=== PATIENT | female | born 1995 | race Caucasian/White ===

== ENCOUNTER 2022-08-02 15:03 | Outpatient (CLI) | payer MEDICAID, SELFPAY ==
--- OUTSIDE RECORDS SUMMARY | 2022-08-02 15:05 | XMS_ITS ---
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 Problem Other specified E03.8 Active 4093 0008 hypothyroidism Problem Body mass index Z68.35 Active 4433 [id number] (BMI) of 35.0-35.9 in adult ALLERGIES Substance Reaction Event Type Date Status Percocet Unknown Drug Allergy February, Active ENCOUNTERS Encounter Location Date Diagnosis [facility] [address] February, [place], [place] [id number] [facility] [place] [address] Jan, [address] [address] [facility] [address] Jan, [address] [address] [facility] [address] Jan, [address] [address] [facility] [address] Oct, [address] [address] [facility] [address] Oct, [address] [address] [facility] [place] [address] Oct, [address] [address] [facility] [address] Oct, [address] [address] [facility] [address] Oct, [address] [address] [facility] [address] Oct, [address] [address] [facility] [address] Oct, [address] [address] [facility] [address] Oct, [address] [address] [facility] [address] Oct, [address] [address] [facility] [address] Oct, [place], [place] [id number] [facility] [address] Oct, [address] [address] [facility] [address] Oct, [place], [place] [id number] [facility] [address] Oct, [address] [address] [facility] [address] Oct, [address] [address] [facility] [address] Oct, Infer tility associated with [address] rashawn on N97.0 [address] [facility] [address] Oct, [address] [address] [facility] [address] Oct, [address] [address] [facility] [address] Oct, [address] [address] [facility] [address] Oct, [address] [address] [facility] [address] Oct, [address] [address] [facility] [address] Oct, [address] [address] [facility] Sep, PCOS (polycystic ovarian [address] syndrome) E28.2 ; [address] Infertility asso ciated with anovulation N97. 0 and Other specified hypoth yroidism E03.8 [facility] Sep, Infer tility associated with [address] anovulati on N97.0 [address] [facility] [address] Sep, [address] [address] [facility] [address] Sep, [address] [address] [facility] [address] Sep, [address] [address] [facility] [address] Sep, [address] [address] [facility] [address] Sep, [address] [address] [facility] [address] Sep[address] [address] [facility] [address] Aug, [address] [address] [facility] [place] [address] Aug, [place], [place] [phone] [facility] [address] Aug, PCOS (polycystic ovarian [address], syndrome) E28.2 ; [place] [address] Infertility asso ciated with anovulation N97. 0 and Morbid (severe) obesity due to excess calori es E66.01 [facility] [address] Jul, Irreg ular menstrual [facility] [address] [place] [address], [facility] [address] [place] [address] Procreative bibi gement Z31.9 [facility] [address] Jul, [facility] [address] [place] [address] [facility] [address] Jun, Secjoseph schuler amenorrhea N91.1 [place] [address] [place], ; [place] [address] hypothyroidism E 03.8 ; Autoimmune thyro iditis E06.3 ; Body mas s index (BMI) of 35.0-35 .9 in adult Z68.35 and Morbi d (severe) obesity due to e xcess calories E66.01 IMMUNIZATIONS No Known Immunizations SOCIAL HISTORY Qualifiers Date Never Smoker REASON FOR REFERRAL FUNCTIONAL STATUS PLAN OF CARE VITAL SIGNS Height 65.5 in 2019-10-08 Weight 227.2 lbs 2019-10-08 BMI 37.23 kg/m2 2019-10-08 Blood pressure systolic 122 mm Hg 2019-10-08 Blood pressure diastolic 72 mm Hg 2019-10-08 MEDICATIONS Medication Instructions Dosage Frequency Start End Duration Statu s Date Date Sprintec 28 0.25-35 Orally Once a 1 tablet 24h Aug, y(s) Active MG-MCG day 2018 Vitamin D 1000 UNIT Orally Once a 1 tablet 24h y(s) Active day Spironolactone 100 MG Orally Once a 1 tablet 24h 30 day(s) Active day medroxyPROGESTERone Orally Once a 1 tablet 24h Jun, Active Acetate 10 MG day with food 2018 metFORMIN HCl 500 MG Act denis Levothyroxine Sodium Orally Once a 1 tablet 24h Active 175 MCG day on an empty stomach in the morning Sprintec 28 0.25-35 Orally Once a 1 tablet 24h Jul, y(s) Active MG-MCG day 2019 Fluconazole 150 MG 1 tablet 10 day(s) Ac tive Phentermine HCl 37.5 Orally Once a 1 capsule 24h Not-Taki MG day ng Letrozole 2.5 MG Orally Day 3-7 3 18 Nov, 5 days Active of cycle 2019 PROCEDURES Procedure Date Ordered Result Body Site CHEMILUMINESCENT ASSAY Jul 30, 2019 ASSAY OF PROLACTIN Jul 30, 2019 GONADOTROPIN (FSH) Jul 30, 2019 GONADOTROPIN (LH) Jul 30, 2019 ASSAY OF ESTRADIOL Jul 30, 2019 DEHYDROEPIANDROSTERONE Jul 30, 2019 TOTAL CORTISOL Jul 30, 2019 ASSAY OF TOTAL TESTOSTERONE Jul 30, 2019 No Charge Visit Oct 08, 2019 ASSAY OF TESTOSTERONE Jul 30, 2019 ASSAY OF SEX HORMONE GLOBUL Jul 30, 2019 ASSAY OF PROGESTERONE Jul 30, 2019 VENIPUNCT, ROUTINE* Jul 30, 2019 RESULTS Name Result Date Reference Range PROGESTERONE 2019-10-08 PROGESTERONE 6.0 ESTRADIOL 2019-07-30 ESTRADIOL <15 PROGESTERONE 2019-07-30 PROGESTERONE <0.5 DHEA SULFATE 2019-07-30 DHEA SULFATE 320 18-391 FSH 2019-07-30 FSH 3.0 LH 2019-07-30 LH 2.0 PROLACTIN 2019-07-30 PROLACTIN 11.2 CORTISOL, TOTAL 2019-07-30 CORTISOL, TOTAL 18.3 SEX HORMONE BINDING GLOBULIN 2019-07-30 SEX HORMONE BINDING GLOBULIN 35 17- 124 TESTOSTERONE, TOTAL, LC/MS/MS 2019-07-30 TESTOSTERONE, TOTAL, MS 22 2-45 ANTI-MULLERIAN HORMONE ([facility]), (Insurance Bill ONLY) 2019-07-30 ANTI-MULLERIAN HORMONE ([facility]), FEMALE 18.08 1.02-14.63 TESTOSTERONE, FREE 2019-07-30 TESTOSTERONE, FREE 2.3 0.2-5.0 REASON FOR VISIT Insurance Providers [facility] Health Member Patient Patient Patient Patient Patient Subscriber Subscriber Subscriber Group Insurance Plan Plan Plan Plan ID Relationship Address Phone Name Date of ID Name Date of No Type Insurance Insurance Insurance Coverage to Subscriber Address Phone Name Dates [facility] [address] [facility] self [place] [id number] [id number] [address] [place] [address] [place] self [place] [id number] 0 [id number] Care [id number] Care [place] Medicaid (Ins. [place] (Ins. Bill) [id number] Bill) MEDICAL (GENERAL) HISTORY Type Description Date Medical History Depression\Anxiety Medical History Thyroid disease Surgical History Lymph node 2014 Surgical History Polyp removal 2019 Surgical History Tonsilectomy 2014 Surgical History Gallbladder 2016
--- OUTSIDE RECORDS SUMMARY | 2022-08-02 15:05 | XMS_ITS | Clinical Summary ---
:1995 Author Organization [facility] [place] [address] Care Team Providers Name Role Phone Billie Guadarrama DO Primary Care Provider Vasquez Ridley MD Unavailable Sanjeev Brar MD Unavailable [phone] Allergies Active Allergy Reactions Severity Noted Date Comments Drospirenone-Ethinyl Estradiol Rash, Headache 08/29/20 17 Oxycodone-Acetaminophen Rash 01/17/2014 Medications Medication Sig Dispensed Refills Start Date End Date Status nystatin powder USE TOPICALLY TO 60 g 1 11/21/2021 Active (MYCOSTATIN) AFFECTED AREA(S) 2 powderIndications: TO 4 TIMES DAILY Yeast dermatitis DIRECTED metFORMIN (GLUCOPHAGE 0 05/13/2022 Active XR) 500 mg Extended-Release tablet phentermine (ADIPEX-P) 0 04/21/2022 Active 37.5 mg tablet levothyroxine 0 01/06/2022 Activ e (SYNTHROID) 112 mcg tablet Active Problems Problem Noted Date ZAINAB (generalized anxiety disorder) 03/22/2017 ADHD, 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 Fibromyalgia syndrome 01/19/2017 Numbness and tingling in right hand 01/19/2017 Chronic midline low back pain without sciatica 017 PCOS (polycystic ovarian syndrome) 07/19/2014 Duane's thyroiditis 01/17/2014 MDD (major depressive disorder), recurrent episode, mo derate 01/30/2013 Irregular periods 06/26/2012 Keratosis pilaris 06/08/2010 Overweight(278.02) 06/08/2010 Unspecified osteochondropathy 08/30/2007 Pain in joint, ankle and foot 07/26/2007 Unspecified disturbance of conduct 07/26/2007 Dysfunction of eustachian tube 07/26/2007 Resolved Problems Problem Noted Date Resolved Date Pediculus capitis (head louse) 06/07/2007 7 Encounters Date Type Specialty Care Team Description 07/07/2022 Medical Messaging Billie Guadarrama Re ferral DO 05/22/2022 Ancillary Procedure 05/22/2022 Office Visit Mayra Mandujano Person FAVIO Hooevr Investigation ( PUI); Throat Problem; Ear Problem 05/22/2022 Travel from Last 3 Months Immunizations Name Administration Dates Next Due AMB Influenza, IIV3 (Age >=3 08/26/2011, 09/08/2010 years)(Flu Clinic Only) DTP 09/19/1998, 05/09/1998, 1997 DTP-HIB 1997 DTaP 09/20/2002 HIB PRP-OMP (PedvaxHIB) 09/19/1998, 1997 HIB-HepB (Comvax) 01/07/1998, 1997 Hepatitis A (Peds) 06/02/2009, 07/26/2007 Hepatitis B, Unspecified 01/07/1998, 1997, 1997 Human Papilloma Virus Vaccine 10/27/2012, 06/26/2012, 2010 Inactivated Polio Vaccine 09/20/2002, 03/20/1998, 1997 , 1997 Influenza A (H1N1), Inactivated (Age 0312/23/2009 >=3 Years) Influenza, IIV3 (Age >=3 years) 07/26/2013, 06/26/2012, 12/08, 07/26/2007, 07/26/2002 Influenza, IIV4 07/14/2020, 08/08/2019, 06/22/2018, 08/29/2017, 07/13/2016, 10/02/2015, 07/19/2014 MMR 06/28/2021, 09/20/2002, 09/19/1998 Meningococcal Vaccine (Menveo) 07/26/2013 Oral Polio Vaccine 09/19/1998 Td (Age >=7 Years) 09/10/2020 Tdap 05/11/2021, 04/06/2010 Varicella Vaccine 07/26/2007, 12/23/1998 Family History Medical History Relation Name Comments Hyperlipidemia Maternal Grandfather Hypertension Maternal Grandfather Heart Disease Maternal Grandmother Hyperlipidemia Maternal Grandmother Hypertension Maternal Grandmother Diabetes Mother gestational Asthma Other maternal great a unt and uncle Cancer-breast No Family History Cancer-colon No Family History Relation Name Status Comments Maternal Grandfather Maternal Grandmother Mother Other Social History Tobacco Use Types Packs/Day Years Used Date Never Smoker Smokeless Tobacco: Never Used Tobacco Cessation: Counseling Given: Yes Alcohol Use Standard Drinks/Week Comments No 0 (1 standard drink = 0.6 oz pure alcoho l) Sex Assigned at Date Recorded Not on file Obstetrics History Para Term AB IAB SAB Ectopic Multiple Living Live Births 2 0 0 0 1 0 1 0 0 0 Date Outcome GA Total Labor/2nd/3rd Weight Sex Delivery Anes PTL Jenny A 1 A5 Name Clin Labor SAB Last Filed Vital Signs Vital Sign Reading Time Taken Comments Blood Pressure 120/64 05/22/2022 9:09 AM CDT Pulse 116 05/22/2022 9:09 AM CDT Temperature 37.6 ??C (99.6 ??F) 05/22/2022 9:09 AM CDT Respiratory Rate 18 05/22/2022 9:09 AM CDT Oxygen Saturation 96% 05/22/2022 9:09 AM CDT Inhaled Oxygen Concentration - - Weight 112.5 kg (248 lb) 05/22/2022 9:09 AM CDT Height 165.1 cm (5' 5) 03/27/2021 10:44 PM CDT Body Mass Index 41.27 03/27/2021 10:44 PM CDT Plan of Treatment Health Maintenance Due Date Last Done Comments COVID-19 vaccine series (#1) 1997 BMI (ht and wt on same day) for 07/14/2021 07/14/2020, 03/2020, age 18+ 09/24/2019, Additional history exists Depression screening for age 12+ 10/29/2021 10/29/2020, 11/2019, 09/10/2020, Additional history exists Influenza for age 9-49 06/10/2022 07/14/2020, 08/08/2019, 06/22/2018, Additional history exists Pap test for age 21-65 12/04/2023 12/04/2020, 12/04/2020, 12/26/2018, Additional history exists Tetanus booster 05/11/2031 05/11/2021, 09/10/2020, 04/06/2010 HPV series for age 9-26 Completed 10/27/2012, 06/26/2012, 07/06/2011 Hepatitis C screening for age Completed 08/31/2016 18-79 Tdap Completed 05/11/2021, 04/06/2010 Procedures Procedure Name Priority Date/Time Associated Diagnosis Comme nts CBC WITH AUTO STAT 05/22/2022 10:08 Chest pain, Results fo r this DIFFERENTIAL AM CDT unspecified type procedure a re in the results section. TROPONIN I STAT 05/22/2022 10:08 Chest pain, Results for this AM CDT unspecified type procedure a re in the results section. C-REACTIVE PROTEIN STAT 05/22/2022 10:08 Chest pain, Resul ts for this AM CDT unspecified type procedure a re in the results section. BASIC METABOLIC PANEL STAT 05/22/2022 10:08 Chest pain, Re sults for this AM CDT unspecified type procedure a re in the results section. CBC WITH AUTO STAT 05/22/2022 10:08 Chest pain, Results fo r this DIFFERENTIAL AM CDT unspecified type procedure a re in the results section. XR CHEST 2 VIEWS PA STAT 05/22/2022 10:04 Chest pain, Resu lts for this AND LATERAL AM CDT unspecified type procedure a re in the results section. COVID 19 Routine 05/22/2022 9:55 AM Sorethroat Results f or this CDT procedure are i n the results section. COVID 19 COLLECTION Routine 05/22/2022 9:55 AM Sorethroat Re sults for this CDT procedure are i n the results section. THROAT RAPID STREP Routine 05/22/2022 9:15 AM Sorethroat Res ults for this ONLY CLINIC CDT procedure are i n the results section. VT ECG ROUTINE ECG Routine 05/22/2022 12:00 Chest pain, W/LEAST 12 LDS W/I&R AM CDT unspecified type from Last 3 Months Results (ABNORMAL) CBC WITH AUTO DIFFERENTIAL (05/22/2022 10:08 AM [facility]) [facility] Method Time Signature WHITE BLOOD 11.6 (H) 4.5 - 05/22/2022 [place] COUNT 11.0 10:26 AM [facility] thou/cu LABORATORY mm RED BLOOD COUNT 5.11 4.00 - 05/22/2022 [place] 5.20 10:26 AM [facility] mil/cu mm LABORATORY HEMOGLOBIN 14.1 12.0 - 05/22/2022 [place] 16.0 g/dL 10:26 AM [facility] LABOR[facility] HEMATOCRIT 42.4 33.0 - 05/22/2022 [place] 51.0 % 10:26 AM [facility] MCV 83 80 - 100 05/22/2022 [place] fL 10:26 AM [facility] MCH 27.6 26.0 - 05/22/2022 [place] 34.0 pg 10:26 AM [facility] LAB[facility] MCHC 33.3 32.0 - 05/22/2022 [place] 36.0 g/dL 10:26 AM [facility] RDW 14.5 11.5 - 05/22/2022 [place] 15.5 % 10:26 AM [facility] LAB[facility] PLATELET COUNT 153 140 - 440 05/22/2022 [place] thou/cu 10:26 AM [facility] mm LABORATORY MPV 10.8 6.5 - 05/22/2022 [place] 11.0 fL 10:26 AM [facility] % NEUT 78.3 % 05/22/2022 [place] 10:26 AM [facility] % LYMPH 14.8 % 05/22/2022 [place] 10:26 AM [facility] % MONO 6.0 % 05/22/2022 [place] 10:26 AM [facility] % EOS 0.5 % 05/22/2022 [place] 10:26 AM [facility] % BASO 0.4 % 05/22/2022 [place] 10:26 AM [facility] LABOR[facility] ABSOLUTE 9.1 (H) 1.7 - 7.0 05/22/2022 [place] NEUTROPHILS thou/cu 10:26 AM [facility] mm LABORATORY ABSOLUTE 1.7 0.9 - 2.9 05/22/2022 [place] LYMPHOCYTES thou/cu 10:26 AM [facility] mm LABORATORY ABSOLUTE 0.7 <0.9 05/22/2022 [place] MONOCYTES thou/cu 10:26 AM [facility] mm LABORATORY ABSOLUTE 0.1 <0.5 05/22/2022 [place] EOSINOPHILS thou/cu 10:26 AM [facility] mm LABORATORY ABSOLUTE 0.1 <0.3 05/22/2022 [place] BASOPHILS thou/cu 10:26 AM [facility] mm LABORATORY Specimen Anatomical Collection Method / Collection Time Recei jose g Time (Source) Location / Volume Laterality Blood BLOOD SPECIMEN / Venipuncture / 05/22/2022 10:08 05/22 Unknown Unknown AM CDT 10:10 AM CDT Mayra STAHL HEMATOLOGY Performing Organization Address City/[facility]/[place] [facility] [facility] [address] [place] [address] TROPONIN I (05/22/2022 10:08 AM CDT) P athologist Signature TROPONIN I <0.010 <0.034 05/22/2022 [place] ng/mL 10:50 AM [facility] Specimen Anatomical Collection Method / Collection Time Recei jose g Time (Source) Location / Volume Laterality Blood BLOOD SPECIMEN / Venipuncture / 05/22/2022 10:08 05/22 Unknown Unknown AM CDT 10:10 AM CDT Mayra STAHL CHEMISTRY Performing Organization Address City/[facility]/ZIP Code Phon e Number [facility] [address] [place] [address] (ABNORMAL) C-REACTIVE PROTEIN (05/22/2022 10:08 AM CDT) Patholo gist Method Time Signature C-REACTIVE 10.67 (H) <0.50 05/22/2022 [place] PROTEIN mg/dL 10:42 AM [facility] Specimen Anatomical Collection Method / Collection Time Recei jose g Time (Source) Location / Volume Laterality Blood BLOOD SPECIMEN / Venipuncture / 05/22/2022 10:08 05/22 Unknown Unknown AM CDT 10:10 AM T Mayra STAHL CHEMISTRY Performing Organization Address City/State/ZIP Code Phon e Number [facility] [address] [place] [address] (ABNORMAL) BASIC METABOLIC PANEL (05/22/2022 10:08 AM CDT) Analysis Performed At Patho logist Time Signature SODIUM 137 135 - 145 05/22/2022 [place] mmol/L 10:43 AM [facility] POTASSIUM 4.2 3.5 - 5.0 05/22/2022 [place] mmol/L 10:43 AM [facility] CHLORIDE 103 98 - 110 05/22/2022 [place] mmol/L 10:43 AM [facility] CO2,TOTAL 24 21 - 31 05/22/2022 [place] mmol/L 10:43 AM [facility] ANION GAP 10 5 - 18 05/22/2022 [facility] 10:43 AM [facility] GLUCOSE 115 (H) 65 - 100 05/22/2022 [place] mg/dL 10:43 AM [facility] CALCIUM 9.7 8.5 - 10.5 05/22/2022 [place] mg/dL 10:43 AM [facility] BUN 7 (L) 8 - 25 05/22/2022 [place] mg/dL 10:43 AM [facility] CREATININE 0.84 0.57 - 05/22/2022 [facility] 1.11 mg/dL 10:43 AM [facility] BUN/CREAT RATIO 8 (L) 10 - 20 05/22/2022 [facility] 10:43 AM [facility] eGFR >90 >90 05/22/2022 [facility] mL/min/1.7 10:43 AM [facility] 3m2 LABORATORY Comment: As of 2021, eGFR is calcu lated by the CKD-EPI creatinine equation without race adjustment. eGFR can be inf luenced by muscle mass, exercise, and diet. The reported eGFR is an estimation only and is only applicable if the renal function is stable. Specimen Anatomical Collection Method / Collection Time Recei jose g Time (Source) Location / Volume Laterality Blood BLOOD SPECIMEN / Venipuncture / 05/22/2022 10:08 05/22 Unknown Unknown AM CDT 10:10 AM CDT Mayra STAHL CHEMISTRY Performing Organization Address City/State/ZIP Code Phon e Number [facility] [address] [place] [address] XR CHEST 2 VIEWS PA AND LATERAL (05/22/2022 10:04 AM CDT) Anatomical Region Laterality Modality CHEST, THORAX, Lung, HEART Computed Radi ography Specimen (Source) Anatomical Collection Method Collection Time Re ceived Time Location / / Volume Laterality 05/22/2022 10:09 AM CDT Impressions 05/22/2022 10:09 AM CDT Negative two-view chest. No significant change. Dictated by Darryn Daly MD @ 05/22/2022 10:09:38 AM (Electronically Signed) Narrative 05/22/2022 10:09 AM CDT For Patients: ??As a result of the Cures Act, medical imaging exams and procedure report s are released immediately into your [employer] medical record. ??You may view this report before your referring provider. ??If you have questions, please contact your health care provider. INDICATION: Unspecified chest pain. TECHNIQUE: Two-view chest. COMPARISON: June 23, 2019. FINDINGS: Clear lungs. Normal heart size and pulmo nary vascularity. Normal included skeleton. Surgical clips in the upper abdomen. Procedure Note Darryn Daly MD - 05/22/2022Formatti ng of this note might be different from the original. For Patients: As a result of the Cures Act, medical imaging exams and procedure reports are released immediately into your electronic medical record. You may view this report before your referring provider. If you have questions, please contact yo health care provider. INDICATION: Unspecified chest pain. TECHNIQUE: Two-view chest. COMPARISON: June 23, 2019. FINDINGS: Clear lungs. Normal heart size and pulmo nary vascularity. Normal included skeleton. Surgical clips in the upper abdomen. IMPRESSION: Negative two-view chest. No significant change. Dictated by Darryn Daly MD @ 05/22/2022 10:09:38 AM (Electronically Signed) Mayra STAHL GENERAL IMAGING COVID 19 (05/22/2022 9:55 AM CDT) Analysis Performed At Patho logist Time Signature COVID 19 Negative Negative 05/23/2022 [facility] 10:04 PM CDT LABORATORY-[facility] Specimen Anatomical Location / Collection Method Collection Brandon e Received Time (Source) Laterality / Volume Other SPECIMEN FROM Non-Blood / 05/22/2022 9:55 05/23/2022 2:16 NASOPHARYNGEAL Unknown AM CDT PM CDT STRUCTURE / Unknown Narrative [facility] LABORATORY-CENTRAL LABORAT ORY - 05/23/2022 10:04 PM CDT All PCR tests are subject to false negative result due to variability in viral load and collection te chnique. A negative result does not rule out a SARS-CoV-2 infection. Clinical correlation required. This test has been authorized by FDA und er an Emergency Use Authorization (EUA). This test is only authorized for the duration of time the declaration that circumstances exist justifying the authorizati on of the emergency use of in vitro diag nostic tests for detection of SARS-CoV-2 virus and/or diagnosis of COVID-19 infection under section 564(b)(1) of the Act, 21 U.S.C. 360bbb-3(b) (1), unless the authorization is terminated or revoked sooner. Mayra STAHL MICROBIOLOGY Performing Organization Address City/State/ZIP Code Phon e Number [facility] [address] [facility] [address] LABORATORY-[place] [address] LABORATORY COVID 19 COLLECTION (05/22/2022 9:55 AM CDT) [facility] gist Method Time Signature TESTING [facility] 05/23/2022 [facility]OR[facility] Laboratory 2:16 PM CDT LABORATORY-CE NTRAL LABORATORY Comment: Specimen submitted to [facility] for testing. Specimen Anatomical Location / Collection Method Collection Brandon e Received Time (Source) Laterality / Volume Other SPECIMEN FROM Non-Blood / 05/22/2022 9:55 05/22/2022 NASOPHARYNGEAL Unknown AM CDT 11:16 AM CDT STRUCTURE / Unknown Mayra STAHL SEND OUTS Performing Organization Address City/State/ZIP Code Phon e Number [facility] [address] [place] [address] LABORATORY-[facility] [address] LABORATORY THROAT RAPID STREP ONLY CLINIC (05/22/2022 9:15 AM CDT) Analysis Performed At Path logist Time Signature THROAT RAPID Negative 05/22/2022 [place] [facility] 9:36 AM CDT [facility] Specimen Anatomical Collection Method Collection Time Receive d Time (Source) Location / / Volume Laterality Throat SPECIMEN FROM Non-Blood / 05/22/2022 9:15 AM 05/22/20 22 9:18 THROAT / Unknown Unknown CDT AM CDT Mayra STAHL MICROBIOLOGY Performing Organization Address City/State/ZIP Code Phon e Number [facility] [address] [place] [address] [place] ECG ROUTINE ECG W/LEAST 12 LDS W/I&R (05/22/2022 12:00 AM CDT) Narrative This result has an attachment that is no t available. Mayra STAHL PB - CARDIOVASCULAR SYSTEM S ERVICES from Last 3 Months Insurance Payer Benefit Plan / Subscriber ID Effective Dates Phone Addre ss Type Group ARE [place] [id number] 2021-Present [address] [place] [address] Care Teams Brass Pourer Relationship Specialty Start Date End Date Billie Guadarrama DO PCP - General Family Practice 11/27/13 [address] [place] [address] Vasquez Ridley MD Rheumatology Rheumatology 10/07/16 [address] [place] [address] Sanjeev Brar MD Internal Medicine 09/28/19
--- OUTSIDE RECORDS SUMMARY | 2022-08-02 15:05 | XMS_ITS | Clinical Summary ---
:1995 Author Organization [facility] Address [address] [place] [address] Care Team Providers Name Role Phone Unavailable Primary Care Provider Unavailable Source Comments Patient records contain information from all sites at [facility]. For routine questions regarding patient records, call [phone] during business hours, M-F 8:00 AM - 5:00 PM Central Time. 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 Pulse 74 09/30/2014 4:00 PM Vital sign result AUTOMOTIVE REPAIR TECHNICIAN from Clinical [facility]. Temperature - - Respiratory Rate - - Oxygen Saturation - - Inhaled Oxygen - - Concentration Weight 82.8 kg (182 lb 8.7 09/30/2014 4:00 PM Vital sign result oz) AUTOMOTIVE REPAIR TECHNICIAN from Clinical No [facility]. Height 166.1 cm (5' 5.39) 09/30/2014 4:00 PM Vital sign result AUTOMOTIVE REPAIR TECHNICIAN from Clinical No fel[facility]. Body Mass Index 30.01 09/30/2014 4:00 PM AUTOMOTIVE REPAIR TECHNICIAN Plan of Treatment Health Maintenance Due Date Last Done Comments Cervical Cancer Screening 1997 HIV Screening 1997 Hepatitis C Screening 1997 COVID-19 Vaccine (#1) 1997 Depression Screening 10/10/2021 (Annual PHQ-2) Influenza Vaccine (#1) 2022 07/14/2020, 08/08/2019, 06/22/2018, Additional history exists DTaP,Tdap,and Td Vaccines 05/11/2031 05/11/2021, 09/10/2020 , (9 - Td or Tdap) 04/06/2010, Additional history exists Hepatitis B Vaccines Completed 01/07/1998, 01/07/1998, 1997, Additional history exists HPV Vaccines Completed 10/27/2012, 06/26/2012, 07/06/2011 Pneumococcal vaccine (0-64 Aged Out No lo nger eligible years) based on patient 's age to complete this topic Insurance Payer Benefit Plan Subscriber ID Effective Dates Phone Address Type / Group ARE [facility] CARE [id number] 2021-Presen [phone] [address] Medicaid HMO t 5 [place] [address] (Home) [place] [id number]
--- OUTSIDE RECORDS SUMMARY | 2022-08-02 15:05 | XMS_ITS | Encounter Summary ---
:1995 Author Organization [facility] Address [address] [place] [address] Care Team Providers Name Role Phone Unavailable Primary Care Provider Unavailable Encounter Details Date Type Department Care Team Description 10/15/2021 Admin Visit Department of Family Medicine, [address] [address] 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
--- OUTSIDE RECORDS SUMMARY | 2022-08-02 15:06 | XMS_ITS | Encounter Summary ---
:1995 Author Organization [facility] Address [address] [place] [address]. [place] [address] Care Team Providers Name Role Phone Billie Guadarrama Primary Care Provider Rocio Mccarthy MD Unavailable Encounter Details Date Type Department Care Team Description 06/21/2022 Travel Social History Tobacco Use Types Packs/Day Years Used Date Smoking Tobacco: Never Smokeless Tobacco: Never Comments: NO 2ND HAND SMOKE AT HOME Alcohol Use Standard Drinks/Week Comments Never 0 (1 standard drink = 0.6 oz pure alcoho l) Alcohol Habits Answer Date Recorded How often do you have a drink containing alcohol? Never 04/09/2020 How many drinks containing alcohol do you have on a typical Not asked day when you are drinking? How often do you have six or more drinks on one occasion? 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 documented as of this encounter Plan of Treatment Upcoming Encounters Date Type Specialty Care Team Description 12/28/2022 Virtual Visit Endocrinology Merle Mccarthy MD [address] [place] [address] (Wo rk) documented as of this encounter Visit Diagnoses Not on filedocumented in this encounter Care Teams Freezing Machine Operator Relationship Specialty Start Date End Date Billie Guadarrama PCP - General 12/17/19 [facility] [address] [place] [address] Rocio Mccarthy MD Assigned Endocrinology 04/24/[address] [place] [address] documented as of this encounter
--- OUTSIDE RECORDS SUMMARY | 2022-08-02 15:06 | XMS_ITS | Encounter Summary ---
:[address] [facility] Address [address] [place] [address] Care Team Providers Name Role Phone Unavailable Primary Care Provider Unavailable Reason for Visit Reason Onset Date Comments Testing For Upper Respiratory Virus Symptoms 10/14/2021 Encounter Details Date Type Department Care Team Description 10/14/2021 External Outreach Department of [facility] Gutierrez Hawley Contact With And (Suspected) Exposure To COVID-19; Medicine, [facility] Nery Cortez Infection Upper Respiratory Building, in [address] [place], [place] [address] [facility] [address] [place], [place] [phone] [address] (Work) [phone] Social History Tobacco Use Types Packs/Day Years Used Date Smoking Tobacco: Never Sex Assigned at Date Recorded Female 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 - 10/14/2021 2:07 PM CST Encounter created for symptomatic infectious disease screening with possible COVID, Influenza, RSV, and/or Group A Strep testing. UTER REPAIR ENGINEER documented in this encounter Plan of Treatment Not on filedocumented as of this encounter Procedures Procedure Name Priority Date/Time Associated Diagnosis Comme nts INFLUENZA A/B AND Routine 10/15/2021 8:26 AM Infection Upper R esults for this RSV, PCR, VARIES COMPUTER REPAIR ENGINEER Respiratory procedure a re in the results section. SARS CORONAVIRUS-2 Routine 10/15/2021 8:26 AM Contact With And Results for this RNA, V COMPUTER REPAIR ENGINEER (Suspected) Exposure procedu re are in To COVID-19 the results section. documented in this encounter Results Influenza A/B and RSV, PCR, Varies (10/15/2021 8:26 AM COMPUTER REPAIR ENGINEER) [facility] Method Time Signature Influenza A/B Swab, 10/18/2021 DTL and RSV, Nasopharynx 10:13 AM Source COMPUTER REPAIR ENGINEER Influenza A, Undetected Undetected 10/18/2021 DTL PCR 10:13 AM COMPUTER REPAIR ENGINEER Comment: Influenza A RNA absent. Influenza B, PCR Undetected Undetected 10/18/2021 10:[address] DTL Comment: Influenza B RNA absent. Respiratory Syncytial Virus, Undetected Undetected 10:13 AM COMPUTER REPAIR ENGINEER DTL PCR Comment: RSV RNA absent. ----ADDITIONAL INFORMATION---- This test has been modified from the man ufacturer's instructions. Its performance characteristics were determi nii by [facility] in a manner consistent with CLIA requirements. This test has not been cleared or approved by the U.S. Food and Drug Administration . Specimen Anatomical Collection Method Collection Time Receive d Time (Source) Location / / Volume Laterality Varies 10/15/2021 8:26 AM (Nasopharynx) COMPUTER REPAIR ENGINEER 10:00 PM COMPUTER REPAIR ENGINEER Gutierrez Hawley D.O. LAB MICROBIOLOGY - GENERAL O RDERABLES Performing Organization Address City/State/ZIP Code Phon e Number [facility] - [address] [place], [place] [address] [facility] [place] [address] Laboratories-[facility] [address] SARS Coronavirus-2 RNA, V Symptomatic (10/15/2021 8:26 AM COMPUTER REPAIR ENGINEER) [facility] Method Time Signature SARS-CoV-2 Swab, 10/15/2021 MKTO Specimen Nasopharynx 7:58 PM COMPUTER REPAIR ENGINEER Source SARS CoV-2 Undetected Undetected 10/15/2021 MKTO RNA, TMA 7:58 PM COMPUTER REPAIR ENGINEER Comment: SARS-CoV-2 RNA absent. This result does not rule out COVID-19 in the patient, as the sensitivity of the test depends o n the timing of the specimen collection and the quality of the specim en. Result should be correlated with patient's history and clinical presentat ion. ----ADDITIONAL INFORMATION---- This molecular amplification test was pe rformed using the Aptima SARS-CoV-2 assay ([employer] on the Aquicores tem under emergency use authorization (EUA) by the U.S. Food and Drug Administ ration. Fact sheets for this EUA assay can be fo und at the following links: For Healthcare Providers: https://www.Reppler a.gov/media/515378/download For Patients: https://www.fda.gov/media/ 773462/download Specimen Anatomical Collection Method Collection Time Receive d Time (Source) Location / / Volume Laterality Varies 10/15/2021 8:26 AM 2:44 (Nasopharynx) COMPUTER REPAIR ENGINEER PM COMPUTER REPAIR ENGINEER Gutierrez Hawley D.O. LAB MICROBIOLOGY - GENERAL O TORIN Performing Organization Address City/State/[facility] Phon e Number [facility]- [address] [place] [address] [place] [address] System in [address] documented in this encounter Visit Diagnoses Diagnosis Contact With And (Suspected) Exposure To COVID-19 Infection Upper Respiratory documented in this encounter Additional Health Concerns Infection Onset Date Last Indicated Resolved Time COVID19 Pending 10/14/2021 10/15/2021 10/15/2021 7:59 PM COMPUTER REPAIR ENGINEER documented as of this encounter
--- OUTSIDE RECORDS SUMMARY | 2022-08-02 15:06 | XMS_ITS | Encounter Summary ---
:1995 Author Organization [facility] Address [address] [place] [address]. 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 documented as of this encounter Miscellaneous Notes Telephone Encounter - Jina Harrell RN - 07/05/2022 2:05 PM CDT Per notes from April,pt okay'd taking levothyroxine Telephone Encounter - Rocio Mccarthy MD - 07/05/2022 1:59 PM CDT Brand synthroid. Telephone Encounter - Marsha Nelson - 07/05/2022 1:50 PM CDT Pharmacy is calling because the note to them says dispense synthroid only but the [facility] says no. The patient has had generic in the past and she has medical assistance and they will not pay for brand name. Please clarify and send a new order. 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
--- OUTSIDE RECORDS SUMMARY | 2022-08-02 15:06 | XMS_ITS | Encounter Summary ---
:1995 Author Organization [facility] Address [address] [place] [address] Care Team Providers Name Role Phone Unavailable Primary Care Provider Unavailable Reason for Visit Reason Comments COVID Nurse Line Encounter Details Date Type Department Care Team Description 10/14/2021 Clinical Communication Division of Gissell Chaves COV ID Nurse Line [facility] L, R.NFredis [facility] [place] [address] 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 documented as of this encounter Miscellaneous Notes Telephone Encounter - Gissell Chaves, R.NFredis - 10/14/2021 10:25 AM CST COVID-19 Nurse Line Screening ASSESSMENT Initial Screening Pathway Select appropriate pathway: : Adult In the last 48 hours, have you had a fever* OR symptoms that are unrelated to a preexisting illness?: New shortness of breath,New headache,New muscle aches,New sore throat,New loss of smell,New change or loss of taste sensation (earache) COVID Symptomatic Screening Do you have any of the following urgent symptoms?: No urgent symptoms noted (Continue Screening) Have you received a COVID-19 vaccine in the last 72 hours? : No vaccine received (Continue Screening) Have you had close contact* with a person who has a LABORATORY CONFIRMED case of COVID-19 in the past 14 days?: Yes- quarantine required, provide instructions (Continue Screening) (household) Have you tested positive for COVID-19 in the last 45 days?: No. COVID-19 testing is indicated (Continue Screening for Additional Testing) Additional Screening for Influenza, RSV and Strep Select appropriate region: : [place] Do you have any of the following respiratory syntonical virus (RSV) complications? : No complications noted (Continue Screening) Do you have any of the following high risk influenza criteria?: No criteria noted (Continue Screening) Are all of the following Strep criteria met? : Age is between 18-75 years,Main symptom or chief complaint of sore throat between 24 hours and 7 days duration,No, all criteria are not met. Influenza tesing is indicated. (End Screening) Symptom Onset Date of symptom onset: 10/08/21 Testing Recommendation Endpoint Is testing recommended? : Recommended to test Further Triage Needs Any further triage needs? : No further concerns noted. PLAN Endpoint recommendation: Symptomatic testing indicated, advised to be swabbed for COVID-19 and Influenza, sent to [facility] located at [address] [place] [address] ([facility]). An appointment is required for testing, please call [phone] Tuesday-Tuesday 7am to 6pm and Tuesday & Tuesday 9am to 4pm to schedule an appointment. Testing hours are 8am - 4:30pm daily. You can also schedule via your Patient Online Services account., Please avoid using public transportation per CDC recommendation. If you do not have personal transportation please self-quarantine until a personal transportation option is available. Standard Care Points -Get a COVID -19 vaccine as soon as you can if not fully vaccinated. -Wash hands frequently with soap and water, use hand o and m supervisor if soap and water aren't available. -Wear a mask over your nose and mouth to help protect yourself and others if not fully vaccinated and having no symptoms -Stay 6 feet between yourself and others who don't live with you. -Avoid crowds and poorly ventilated indoor spaces. -Seek emergent care if any of the following occur Trouble breathing Bluish lips or face Persistent pain or pressure in the chest New confusion or inability to rouse. -Notify your regular care provider of any new or worsening symptoms. Symptomatic Carepoints: Stay home and separate yourself from others and stay in a specific sick room if able. Avoid sharing personal or household items. Rest. Hydrate. Take Acetaminophen/Ibuprofen asneeded to control fever and muscles aches. Use over the counter medications as needed for other symptoms. Gargle with 8 ounces of warm salt water several times a day for throat discomfort (1/4 tsp regular salt to 8 ounces or 1 cup warm water). Do not swallow the salt water. Throat lozenges will help keep the throat lubricated. Hard candy, lollipops, and throat lozenges are equally effective. Use a humidifier. If you have received a negative COVID-19 test result and continue to have new or worsening symptoms after 72 hours please call the COVID Nurse Line to assess if you need repeat testing or reach out to your Primary Care Provider for guidance. Education: Patient/caregiver able to teach back Patient agreeable to plan of care: Yes The following references were used: [facility] novel coronavirus (COVID- 19) resources CDC web site https://www.cdc.gov/coronavirus/2019-ncov/your-health/index.html Nursing judgement RAL SUPPLY AIDE documented in this encounter Plan of Treatment Not on filedocumented as of this encounter Visit Diagnoses Not on filedocumented in this encounter
--- OUTSIDE RECORDS SUMMARY | 2022-08-02 15:06 | XMS_ITS | Encounter Summary ---
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 She has had decreased appetite and a sore throat associated with that. She has not had any fever and continues to have normal activity l evels and has been sleeping well at night. The cough did not keep her awake last night. Mom has be en giving her Sudafed for symptomatic relief. Mom is concerned because [place] [facility] and wants to make sure that Altagracia does not have any infection in her lungs. MEDICATIONS: She is not currently on any medications.ALLERGIES: No known drug allergies.OBJECTIVE: This is a pleasant female in no acute distress. She is alert and cooperative with examination. Vitals: Temp 99.1 by ear.Conjunctivae are clear without injection or discharge. There is some venostasis beneath both eyes. Nares are patent. Turbinates are non-swollen, there is clear discharge present. Exte rnal ear canals are patent, non-erythematous. TMs are translucent with normal light reflex and bony landmarks. Oropharynx: [place] and moist. Pharynx is slightly erythematous without exudate. Posterio r pharynx is clear. Neck is supple without significant lymphadenopathy. Lungs are clear to auscu ltation, no rhonchi, rales, wheezing, or crackles present. ASSESSMENT: Viral URI.PLAN: Supporti ve and symptomatic cares are discussed and encouraged. She is encouraged to try and nmiu-scw-svzbypa Robitussin DM for her congestion and cough. If symptoms do not improve or worsen, she should return to the clinic for further evaluation.FAVIO Conde./Natalia: 09/[birth year] -------- Abstracted by Desiree soil conservation aide on 05/22/2001Altagracia Garcia [birth year] [id number]: This little girl comes in tonight to recheck her urine. Mother says she is back to voiding very normally and without any complaints of pain. She is not drinking as much as she was before this UTI happened. Mother thinks it is because she is holding off on liquids becau se she thinks it may hurt when she has to urinate. O: Repeat UA was done prior to my seeing her an d is completely negative, but it does have a trace of ketones. A: Resolved UTI.P: Mom should cont inue to encourage extra fluids. For now will recheck only as needed. Angela Gtz PA-C/kikesD: Source: [facility] [email or web address] Document Id: [id number] documented in this encounter Plan of Treatment Not on filedocumented as of this encounter Visit Diagnoses Not on filedocumented in this encounter
--- OUTSIDE RECORDS SUMMARY | 2022-08-02 15:06 | XMS_ITS | Encounter Summary ---
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 She has not had any vomiting or diarrhea. She continues to h ave good appetite and normal activity levels. OBJECTIVE:This is an alert and cooperative female i n no acute distress. Vitals: Per nursing note. Conjunctivae clear. Nares patent, mildly congested. TMs benign. Oropharynx is pink and moist, no tonsillar erythema or exudate. Neck is supple without lymphadenopathy. Lungs are clear to auscultation bilaterally.LABORATORY/X-RAY RESULTS:Rapid strep test is negative.ASSESSMENT:Nonstrep pharyngitis. PLAN:Supportive and symptomatic cares discus sed and encouraged.Return prn.FAVIO Conde/ravinderD: 11/23/2001T: 11/24/2001 Source: [facility] [id number] Document Id: [id number] documented in this encounter Plan of Treatment Not on filedocumented as of this encounter Visit Diagnoses Not on filedocumented in this encounter
--- OUTSIDE RECORDS SUMMARY | 2022-08-02 15:06 | XMS_ITS | Encounter Summary ---
:1995 Author Organization [facility] Address [address] [place] [address] Care Team Providers Name Role Phone Unavailable Primary Care Provider Unavailable Encounter Details Date Type Department Care Team Description 05/23/2001 Hospital Encounter [facility] Al Michel M.D. 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 HIST ORYCurrent Concerns: hyperactive behavior; disciplineDiet: appropriate dietWater Source: [facility].Elimination: constipation, will only stool in pullups, insists on wearing pullups to bed despite being dry most nights and normal urination.Sleep: sleeps through the night, but doesn't go to bed un til 11 or later after mother is home from work.Daycare: NoNoteworthy social stressors: noneHistory Modules Reviewed: YesPatient Active Problem List: NO ACTIVE PROBLEMS[180034]DEVELOPMENTAL SCR EEN: Parent Concerns about Development:NOScho district screening (hearing/vision):NoSOCIALNames friend: YesWash and Dry hands: YesDresses independently:Yes FINE MOTORCopies [place]: YesCopies cross: YesCopies square: Yes Thumb wiggle: Not AskedGROS S MOTORDown Stairs alone: YesBalance 1 foot 2 sec: YesHop on each foot(5x): YesLANGUAGEUnders tandable speech:YesCount by rote: YesPHYSICAL EXAM: BP 88/46 Ht 3' 5.5 (1.05m) Wt 37 lbs 12 oz (17.12 kg)Growth charts reviewed.General: Alert, interactive and appropriateHead: NORMALEyes: NORMAL EOM (cover/uncover): NORMALEars: NORMALNose: NORMALMouth: NORMALNeck: NORMALResp: NORMALHeart: NORMALAbdomen: N ORMALGenitalia: NORMAL femaleMusculoskeletal: NORMAL Gait: NORMALSkin: NORMALNeurological: NORMALEDUCATION/DISCUSSED: Shannan ts: Discussed discipline, behavior, toilet issuesRisk Assessment Reviewed and Discussed:Yes,ASSESS MENT/PLAN:Normal growth and development at 5 year old.Handout on age appropriate development/safety given.Reviewed immunizations. Return in 1 year (age 7 years). Source: [facility] RWHXTRANSXSYS Document Id: [id number] documented in this encounter Plan of Treatment Not on filedocumented as of this encounter Visit Diagnoses Not on filedocumented in this encounter
--- OUTSIDE RECORDS SUMMARY | 2022-08-02 15:06 | XMS_ITS | Encounter Summary ---
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 karina (28) [place] Source: [facility] RWHXTRANSXSYS Document Id: [id number] documented in this encounter Plan of Treatment Not on filedocumented as of this encounter Visit Diagnoses Not on filedocumented in this encounter
--- OUTSIDE RECORDS SUMMARY | 2022-08-02 15:06 | XMS_ITS | Encounter Summary ---
:1995 Author Organization [facility] Address [address] [place] [address] Care Team Providers Name Role Phone Unavailable Primary Care Provider Unavailable Encounter Details Date Type Department Care Team Description 03/07/2001 Hospital Encounter [facility]X [facility] Yahir Londono M.D. 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 Onset 2 days, stable since that time. Symptoms include headache. Altagracia deniescongestio n, ear pain, productive cough and vomiting. Known Strep exposure: none.No current prescriptions on file.Review of patient's allergies indicates none on file.OBJECTIVE:Temp 98.9 Wt 38 lbs (17.24 kg)General appearance: healthy, alert, activeEars: R TM - normal: no effusions, no erythema, and n ormal landmarks, L TM - normal: no effusions, no erythema, and normal landmarksNose: normalOrophary nx: smal erythematous vesicles on post pharynxNeck:normal, supple and no adenopathyLungs: normal a nd clear to auscultationHeart: normal and regular rate and rhythmRSS:negativeASSESSMENT:Non-stre p pharyngitisPLAN:24 hour cultureRx:1) Symptomatic treatment with fluids, rest, acetaminophen.2 ) Recheck as needed for persistence, worsening, appearance of new symptoms. Source: [facility] RWHXTRANSXSYS Document Id: [id number] documented in this encounter Plan of Treatment Not on filedocumented as of this encounter Visit Diagnoses Not on filedocumented in this encounter
--- OUTSIDE RECORDS SUMMARY | 2022-08-02 15:06 | XMS_ITS | Clinical Summary ---
:1995 Author Organization [facility] Address [address] [place] [id number] Care Team Providers Name Role Phone Selinsusan Billie Primary Care Provider Rocio Mccarthy MD Unavailable Allergies Active Allergy Reactions Severity Noted Date Comments Drospirenone Rash Low 04/09/2020 Drospirenone-Ethinyl Estradiol Headache, Rash Low 08/29/20 17 Oxycodone Rash Low 03/28/2021 Oxycodone-Acetaminophen Rash Low 04/09/2020 Medications Medication Sig Dispensed Refills Start Date End Date Status Vit-Fe Take by 0 Acti ve Fumarate-FA mouth daily ( VITAMIN PO) aspirin (ASA) 81 MG Take 81 mg 0 Active chewable by mouth tabletIndications: daily GHTN metFORMIN Take 1,000 0 Active (GLUCOPHAGE) 1000 mg by mouth MG tablet 2 times daily (with meals) phentermine Take 1 0 04/19/2022 Active (ADIPEX-P) 37.5 MG tablet (37.5 tablet mg) by mouth every morning (before breakfast) levothyroxine Take 1 90 tablet 3 07/05/2022 Activ e (SYNTHROID/LEVOTHRO tablet (125 ID) 125 MCG mcg) by tabletIndications: mouth daily 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 levothyroxine Take 1 90 tablet 3 06/29/2022 Disco ntinued (SYNTHROID/LEVOTHRO tablet (125 2 (Reorder) ID) 125 MCG mcg) by tabletIndications: mouth daily 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 Active Problems Problem Noted Date 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 Shari, Hypothyro idism due to MD Rocio Duane's th yroiditis 06/09/2022 Travel 06/01/2022 Telephone Endocrinology Shari, Call Back MD Rocio from Last 3 Months Immunizations Name Administration Dates Next Due Comvax (HIB/HepB) 01/07/1998, 1997 DTAP (<7y) 09/20/2002, 1997, 1997, 1997 DTP-Hib 1997 DTaP, Unspecified 04/06/2010 FLU 6-35 months 08/26/2011, 12/23/2009 [id number] Novel Flu 12/23/2009 HPV Quadrivalent 10/27/2012, 06/26/2012, 07/06/2011 Hep B, Peds or Adolescent 1997 HepA-ped 2 Dose 06/02/2009, 07/26/2007 HepB 01/07/1998, 1997, 1997 Hib (PRP-T) 01/07/1998, 1997, 1997 Historical DTP/aP 1997 Influenza (H1N1) 12/23/2009 Influenza (IIV3) PF 07/26/2013, 06/26/2012, 08/26/2011, 09/08/2010, 12/23/2009, 07/26/2007, 09/21/2006, 09/06/2005, 08/06/2003, 07/26/2002 Influenza Vaccine IM > 6 months Valent 08/08/2019, 8, 08/29/2017, IIV4 (Alfuria,Fluzone) 07/13/2016, 10/02/2015, 07/19/2014 MMR 09/20/2002, 09/19/1998 Meningococcal (Menveo??) 07/26/2013 OPV, trivalent, live 09/19/1998 Pedvax-hib 09/19/1998, 1997 Poliovirus, inactivated (IPV) 09/20/2002, 03/20/1998, 1997, 1997 TRIHIBIT (DTAP/HIB, <7y) 09/19/1998 Varicella 07/26/2007, 12/23/1998 Family History Medical History Relation Comments Depression Father Mental Illness Father Substance Abuse Father Depression Mother Obesity Mother Family History Negative Other Thyroid Disease Paternal Grandmother Relation Status Comments Father Alive 26 OW Maternal Grandfather Alive 53 Maternal Grandmother Alive 56 Mother Alive 27 OW Other Paternal Grandfather Alive 40'S Paternal Grandmother (Age 30'S) UNDETERMINED Social History Tobacco Use Types Packs/Day Years [...] at Date Recorded 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 Filed Vital Signs Vital Sign Reading Time Taken Comments Blood Pressure 123/81 06/04/2021 4:48 PM CDT Pulse 70 05/01/2021 2:37 PM CDT Temperature 37 ??C (98.6 ??F) 06/04/2021 4:48 PM CDT Respiratory Rate 16 06/04/2021 4:48 PM CDT Oxygen Saturation - - Inhaled Oxygen Concentration - - Weight 115.7 kg (255 lb) 03/28/2021 1:20 AM CDT Height 165.1 cm (5' 5) 03/28/2021 1:20 AM CDT Body Mass Index 42.43 03/28/2021 1:20 AM CDT Plan of Treatment Upcoming Encounters Date Type Specialty Care Team Description 12/28/2022 Virtual Visit Endocrinology Merle Mccarthy MD [address] [place] [address] (Wo rk) Health Maintenance Due Date Last Done Comments ADVANCE CARE PLANNING 1995 ANNUAL REVIEW OF HM ORDERS 1997 COVID-19 Vaccine (#1) 1997 YEARLY PREVENTIVE VISIT 06/01/2003 06/01/2002, 05/23/2001 HEPATITIS C SCREENING 2015 PAP 2018 INFLUENZA VACCINE (#1) 2022 07/14/2020, 08/08/2019, 06/22/2018, Additional history exists DTAP/TDAP/TD IMMUNIZATION 05/11/2031 05/11/2021, 09/10/2020 , (5 - Td or Tdap) 04/06/2010, Additional history exists HEPATITIS B IMMUNIZATION Completed 01/07/1998, 01/07/1998, 01/07/1998, Additional history exists IPV IMMUNIZATION Completed 09/20/2002, 09/19/1998, 03/20/1998, Additional history exists HPV IMMUNIZATION Completed 10/27/2012, 10/27/2012, 06/26/2012, Additional history exists MENINGITIS IMMUNIZATION Completed 07/26/2013, 07/26/2013 HIV SCREENING Completed 12/04/2020 CHLAMYDIA SCREENING Discontinued 05/25/2021 PHQ-2 (once per calendar Completed 06/29/2022, 04/19/2022 year) Pneumococcal Vaccine: Aged Out No longer eligible Pediatrics (0 to 5 Years) based on patient's age and At-Risk Patients (6 to to co mplete this topic 64 Years) Procedures Procedure Name Priority Date/Time Associated Diagnosis Comme nts TSH Routine 06/21/2022 1:27 PM Hypothyroidism due to Results for this CDT Duane's thyroiditis proc edure are in the results section. T4 FREE Routine 06/21/2022 1:27 PM Hypothyroidism due to Results for this CDT Duane's thyroiditis proc edure are in the results section. US HEAD NECK SOFT Routine 06/09/2022 2:59 PM Hypothyroidism du e to Results for this TISSUE CDT Duane's thyroiditis proc edure are in the results section. from Last 3 Months Results TSH (06/21/2022 1:27 PM CDT) athologist Signature TSH 1.13 0.40 - 4.00 06/22/2022 [facility] mU/L 10:52 AM CDT Specimen Anatomical Collection Method / Collection Time Recei jose g Time (Source) Location / Volume Laterality Blood STRUCTURE OF LEFT Venipuncture / 06/21/2022 1:27 06/21 1:27 UPPER LIMB / Unknown PM CDT PM CDT Unknown Rocio Mccarthy MD LAB - BLOOD ORDERABLES Performing Organization Address [facility] Phon e Number [facility] [place], [place] [phone] [facility] [phone] [place] [address] Lab (no room number, 1st floor of clinic) [facility] [place], [place] [phone] [facility] [phone] [address] Lab (no room number, 1st floor of clinic) T4 free (06/21/2022 1:27 PM CDT) athologist Signature Free T4 1.22 0.76 - 1.46 06/22/2022 [facility] ng/dL 10:47 AM CDT Specimen Anatomical Collection Method / Collection Time Recei jose g Time (Source) Location / Volume Laterality Blood STRUCTURE OF LEFT Venipuncture / 06/21/2022 1:27 06/21 1:27 UPPER LIMB / Unknown PM CDT PM CDT Unknown Rocio Mccarthy MD LAB - BLOOD ORDERABLES Performing Organization Address [facility] Phon e Number [facility] [place], [place] [phone] [facility] [phone] [place] [address] Lab (no room number, 1st floor of clinic) [facility] [place], [place] [phone] [place], [place] [phone] [address] Lab (no room number, 1st floor of clinic) US Head Neck Soft Tissue (06/09/2022 2:59 PM CDT) Anatomical Region Laterality Modality Head Ultrasound Specimen (Source) Anatomical Location Collection Method / Collectio n Time Received Time / Laterality Volume Impressions 06/09/2022 3:52 PM CDT IMPRESSION: 1. ??No discrete thyroid nodule visualiz ed. 2. ??Diffusely heterogenous thyroid pare nchyma, likely due to underlying chronic thyroiditis. 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 TECHNIQUE: Thyroid ultrasound. COMPARISON: None available. FINDINGS: RIGHT lobe: Measures 4.4 x 1.7 x 1.7 cm. Heterogenous echotexture. Isthmus: Measures 5 mm in thickness. LEFT lobe: Measures 5.3 x 2.6 x 1.7 cm. Heterogenous echotexture. NECK: No cervical lymphadenopathy. NODULES: No discrete thyroid nodule visu alized. Procedure Note Shreyas Barba MD - 06/09/2022Forma tting of this note might be different from the original. 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 TECHNIQUE: Thyroid ultrasound. COMPARISON: None available. FINDINGS: RIGHT lobe: Measures 4.4 x 1.7 x 1.7 cm. Heterogenous echotexture. Isthmus: Measures 5 mm in thickness. LEFT lobe: Measures 5.3 x 2.6 x 1.7 cm. Heterogenous echotexture. NECK: No cervical lymphadenopathy. NODULES: No discrete thyroid nodule visu alized. IMPRESSION: 1. No discrete thyroid nodule visualized . 2. Diffusely heterogenous thyroid parenc hyma, likely due to underlying chronic thyroiditis. SHREYAS BARBA MD Rocio Mccarthy MD IMG US ORDERABLES from Last 3 Months Insurance Payer Benefit Plan / Subscriber ID Effective Dates Phone Addre ss Type Group [facility] [id number] 2021-Present [phone] [address] [place] [address] (Home) [place] [address] TAYLOR GARCIA Personal/Family Self 1995 c/o Iveth (Home) [place] [address] [place] [address] Advance Directives For more information, please contact: [phone] Latest Code Status on File Code Status Date Activated Date Inactivated Comments Full Code 05/29/2021 3:21 PM 05/31/2021 3:16 PM All basic an d advanced life-sustaining interventions are performed as osmar ropriate Question Answer Comments Code status determined by: Discussion with patient/ legal de cision maker Code Status History Code Status Date Activated Date Inactivated Comments Full Code 05/28/2021 8:18 PM 05/29/2021 3:21 PM All basic an d advanced life-sustaining interventions are performed as osmar ropriate Question Answer Comments Code status determined by: Discussion with patient/ legal de cision maker Full Code 05/26/2021 8:14 AM 05/26/2021 5:05 PM All basic an d advanced life-sustaining interventions ar e performed as appropriate Question Answer Comments Code status determined by: Discussion with patient/ legal de cision maker Care Teams Box Spring Frame Builder Relationship Specialty Start Date End Date Billie Guadarrama PCP - General 12/17/19 [facility] [address] [place] [address] Rocio Mccarthy MD Assigned Endocrinology 04/24/[address] [place] [address]
--- OUTSIDE RECORDS SUMMARY | 2022-08-02 15:06 | XMS_ITS | Encounter Summary ---
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
--- OUTSIDE RECORDS SUMMARY | 2022-08-02 15:06 | XMS_ITS | Encounter Summary ---
:1995 Author Organization [facility] Address [address] [place] [address]. 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 documented as of this encounter Patient Instructions Patient InstructionsRocio Mccarthy MD - 06/29/2022 12:30 PM CDT -[facility] Dr Mccarthy, Endocrinology Department [place] [address] [address] [facility]. [address] [place] [address] Appointment [phone] [place]: Tuesday - Continue SYNTHROID 125 mcg/day. Labs in 6-12 months or sooner if concerns or major weight changes. Please make a lab appointment for blood work and follow up clinic appointment in 1 week after that to discuss results. Take Levothyroxine on an empty stomach. Take it with a full glass of water at least 30 minutes to 1 hour before eating breakfast. This medicine should be taken at least 4 hours before or 4 hours after these medicines: antacids (Maalox??, Mylanta??, Tums??), calcium supplements, cholestyramine (Prevalite??, Questran??), colestipol(Colestid??), iron supplements, orlistat (Tereso??, Xenical??), simethicone (Gas-X??, Mylicon??), and sucralfate (Carafate??). Swallow the capsule whole. Do not cut or crush it. documented in this encounter Progress Notes Grazyna Raygoza - 06/29/2022 12:30 PM CDT Altagracia Gacria is being evaluated via a billable video visit. How would you like to obtain your AVS? MyChart For the video visit, send the invitation by: Text to cell phone: [phone] Will anyone else be joining your video visit? No Rocio Mccarthy MD - 06/29/2022 12:30 PM CDT THIS IS A VIDEO VISIT: Phone call visit/virtual visit encounter: Name of patient: Altagracia Garcia Date of encounter: 06/29/2022 Time of start of video visit: 12:32 Video started: 12:38 Video ended: 12:46 Provider location: working from home/ [facility] Patient location: patients home. Mode of transmission: video/ [employer] Verbal consent: obtained before starting visit. Pt is agreeable. The patient has been notified of following: This VIDEO visit will be conducted via a call between you and your physician/provider. We have found that certain health care needs can be provided without the need for a physical exam. This service lets us provide the care you need with a short phone conversation. If a prescription is necessary we can send it directly to your pharmacy. If lab work is needed we can place an order for that and you can then stop by our lab to have the test done at a later time. With new updates with vo virus patient might be billed as clinic visit. If during the course of the call the physician/provider feels a telephone visit is not appropriate, you will not be charged for this service. Past medical history, social history, family history, allergy and medications were reviewed and updated as appropriate. Reviewed pertinent labs, notes, imaging studies personally. ENDOCRINOLOGY CLINIC NOTE: Name: Altagracia Garcia For follow up hypothyroidism. HPI: Altagracia Garcia is a 26 year old female who presents for the evaluation of : Was requested to see endocrinology by her SURGERY SCHEDULING COORDINATOR from [place]. Available records, labs and images from outside clinic were personally reviewed. Since last visit she had a miscarriage. Is actively planning . #1 Hypothyroidism (+TPO): Diagnosed with Duane in 2012 and was started on levothyroxine 100 mcg/day. Currently taking ADITYA SYNTHROID 125 mcg/day. On this dose X 04/2022. F/u labs in range as noted below. H/o fibromyalgia and PCOS. Takes ADITYA synthroid. Reports compliance. Feeling OK. Energy is up and down. Delivered baby in Jun 2021. Not . Not able to loose weight. Not back to prepregnancy weight. She is on phentermine 37.5 mg/day which is prescribed by provider outside [facility] since 12/2021. Lost about 20 lbs on it. Now stable. H/o miscarriage in 2020. No plans for at this time. Feels like something is stuck in throat when eating. Has discomfart. Thyroid US 05/2022- unremarkable- no discrete thyroid nodules were seen. Palpitations: No Changes to hair or skin: No. Diarrhea/Constipation:h/o diarrhea- h/o cholecystectomy. Stable. Changes in menses: irregular- h/o PCOS. Dysphagia or Shortness of breath:sometimes Tremors:No Changes in weight: as noted above. Heat or cold intolerance: sometimes cold History of Doctor Phillips or Amiodarone use:No Head or neck surgery/radiation:No Family History of Thyroid Problems: pgm- thyroid problems. PMH/PSH: Past Medical History: Diagnosis Date ??? Depressive disorder anxiety & depression; takes medication - venlafaxine ??? Diabetes (H) 03/10/2021 GDM ??? Fibromyalgia 2012 ??? PCOS (polycystic ovarian syndrome) 2012 ??? Thyroid disease hashimotos; takes synthroid Past Surgical History: Procedure Laterality Date ??? ABDOMEN SURGERY 2016 galbladder removed ??? ENT SURGERY 2015 tonsils, adenoids, wisdom teeth ??? BAIT MAN SURGERY 2019 ovarian cyst removed ? ? HEAD & NECK SURGERY 2015 lymph node removal ??? NO HISTORY OF SURGERY abstract Family Hx: Family History Problem Relation Age of Onset ??? Obesity Mother ??? Depression Mother ??? Depression Father ??? Mental Illness Father ??? Substance Abuse Father ??? Thyroid Disease Paternal Grandmother ??? Family History Negative Other Social Hx: Social History Socioeconomic History ??? Marital status: Single Spouse name: Not on file ??? Number of children: Not on file ??? Years of education: Not on file ??? Highest education level: Not on file Occupational History ??? Not on file Tobacco Use ??? Smoking status: Never Smoker ??? Smokeless tobacco: Never Used ??? Tobacco comment: NO 2ND HAND SMOKE AT HOME Vaping Use ??? Vaping Use: Never used Substance and Sexual Activity ??? Alcohol use: Never ??? Drug use: Never ??? Sexual activity: Yes Partners: Male control/protection: None Other Topics Concern ??? Not on file Social History Narrative ??? Not on file Social Determinants of Health Financial Resource Strain: Not on file Food Insecurity: Not on file Transportation Needs: Not on file Physical Activity: Not on file Stress: Not on file Social Connections: Not on file Intimate Partner Violence: Not on file Housing Stability: Not on file MEDICATIONS: has a current medication list which includes the following prescription(s): levothyroxine, metformin, phentermine, aspirin, and vit-fe fumarate-fa. ROS ROS: 10 point ROS neg other than the symptoms noted above in the HPI. Physical Exam VS: There were no vitals taken for this visit. GENERAL: healthy, alert and no distress EYES: Eyes grossly normal to inspection, conjunctivae and sclerae normal ENT: no nose swelling, nasal discharge. Thyroid: no apparent thyroid nodules RESP: no audible wheeze, cough, or visible cyanosis. No visible retractions or increased work of breathing. Able to speak fully in complete sentences. ABDO: not evaluated. EXTREMITIES: no hand tremors. NEURO: Cranial nerves grossly intact, mentation intact and speech normal SKIN: No apparent skin lesions, rash or edema seen PSYCH: mentation appears normal, affect normal/bright, judgement and insight intact, normal speech and appearance well-groomed LABS: TFTs: ENDO THYROID LABS-P Latest Ref Rng & Units 06/21/2022 TSH 0.40 - 4.00 mU/L 1.13 FREE T3 2.0 - 4.4 pg/mL RVT3 9.0 - 27.0 ng/dL FREE T4 0.76 - 1.46 ng/dL 1.22 Thyroid US 04/2020: US THYROID 04/14/2020 3:29 PM ?? 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 ?? COMPARISON: None available. ?? FINDINGS: RIGHT lobe: 4.7 x 2.0 x 1.7 cm. Heterogenous echotexture. Isthmus: 9 mm. LEFT lobe: 5.0 x 2.1 x 1.6 cm. Heterogenous echotexture. ?? NECK: No cervical lymphadenopathy. ?? NODULES: None. ?? IMPRESSION: 1. Heterogeneity of both thyroid lobes suggestive of chronic thyroiditis. 2. No nodules. ?? Thyroid US 05/2022: IMPRESSION: 1. No discrete thyroid nodule visualized. 2. Diffusely heterogenous thyroid parenchyma, likely due to underlying chronic thyroiditis. All pertinent notes, labs, and images personally reviewed by me. A/P Ms.Myranda Mary Beth Garcia is a 27 year old here for the evaluation of hypothyroidism: #1. Hypothyroidism(+TPO): Current dose is SYNTHROID (brand) 125 mcg/day (04/19/2022). Reports h/o fluctuating labs and dose has been changed multiple times. Not planning at this time and not . Also has h/o fibromyalgia and PCOS. Plan: Discussed diagnosis, pathophysiology, management and treatment options of condition with pt. Based on 06/2022 labs- Recommend to continue SYNTHROID 125 mcg/day. Labs in 6-12 months or sooner if concerns or major weight changes. Please make a lab appointment for blood work and follow up clinic appointment in 1 week after that to discuss results. Discussed s/s of hypothyroidism and hyperthyroidism to watch for. The patient indicates understanding of these issues and agrees with the plan. Standard treatment for hypothyroidism involves daily use of the synthetic thyroid hormone levothyroxine (Levothroid, Synthroid, others). The dosage of thyroxine should normally be that required to bring the serum TSH level to the low normal range, such as 0.3 - 1 uU/ml. This is typically achieved with1 ug L- T4/lb body weight/day, ranges from 75 - 125 ug/day in women, and 125 - 200 ug/day in men. Once thyroxine treatment is initiated, it is required indefinitely in most patients. Symptoms should improve one to two weeks after starting treatment. Treatment with levothyroxine is usually lifelong. Doseage may need to be adjusted based on body weight, medications, or . To determine the right dosage of levothyroxine initially we will repeat TSH and free T4 after two months. Excessive amounts of the hormone can cause side effects, such as: Increased appetite, insomnia, heart palpitations, and shakiness. Patients with CAD will be started on a lower dose. Levothyroxine causes virtually no side effects when used in the appropriate dose. In patients with childbearing age precaution should be taking regarding hypothyroidism. Hypothyroid woman are more likely to experience infertility, and they have an increase. Balance and portion, anemia, and gestational hypertension, placental abruption and hemorrhage. Certain medications, supplements and foods can affect the body???s ability to absorb levothyroxine. Medications include: Iron supplements, Cholestyramine and Calcium supplements. Follow-up: 6-12 months. Rocio Mccarthy MD Endocrinology [facility] CC: Billie Guadarrama All questions were answered. The patient indicates understanding of the above issues and agrees withthe plan set forth. Answers for HPI/ROS submitted by the patient on 06/29/2022 General Symptoms: Yes Skin Symptoms: Yes HENT Symptoms: No EYE SYMPTOMS: No HEART SYMPTOMS: Yes LUNG SYMPTOMS: Yes INTESTINAL SYMPTOMS: No URINARY SYMPTOMS: No GYNECOLOGIC SYMPTOMS: Yes BREAST SYMPTOMS: No SKELETAL SYMPTOMS: Yes BLOOD SYMPTOMS: No NERVOUS SYSTEM SYMPTOMS: Yes MENTAL HEALTH SYMPTOMS: Yes Fever: No Loss of appetite: No Weight loss: Yes Weight gain: No Fatigue: Yes Night sweats: No Chills: No Increased stress: Yes Excessive hunger: No Excessive thirst: No Feeling hot or cold when others believe the temperature is normal: No Loss of height: No Post-operative complications: No Surgical site pain: No Hallucinations: No Change in or Loss of Energy: Yes Hyperactivity: No Confusion: No Changes in hair: Yes Changes in moles/ juarez: No Itching: No Rashes: No Changes in nails: No Acne: Yes Hair in places you don't want it: Yes Change in facial hair: No Warts: Yes Non-healing sores: No Scarring: Yes Flaking of skin: No Color changes of hands/feet in cold : Yes Sun sensitivity: No Skin thickening: No Chest pain or pressure: Yes Fast or irregular heartbeat: No Pain in legs with walking: Yes Trouble breathing while lying down: No Fingers or toes appear blue: No High blood pressure: No Low blood pressure: No Fainting: No Murmurs: No Pacemaker: No Varicose veins: No Edema or swelling: No Wake up at night with shortness of breath: No Light-headedness: No Exercise intolerance: No Cough: No Sputum or phlegm: No Coughing up blood: No Difficulty breating or shortness of breath: Yes Snoring: No Wheezing: No Difficulty breathing on exertion: No Nighttime Cough: No Difficulty breathing when lying flat: No Bleeding or spotting between periods: No Heavy or painful periods: No Irregular periods: Yes Vaginal discharge: No Hot flashes: No Vaginal dryness: Yes Genital ulcers: No Reduced libido: No Painful intercourse: Yes Difficulty with sexual arousal: Yes Post-menopausal bleeding: No Back pain: Yes Muscle aches: Yes Neck pain: No Swollen joints: No Joint pain: Yes Bone pain: No Muscle cramps: No Muscle weakness: Yes Joint stiffness: Yes Bone fracture: No Trouble with coordination: No Dizziness or trouble with balance: No Fainting or black-out spells: No Memory loss: No Headache: Yes Seizures: No Speech problems: No Tingling: No Tremor: No Weakness: Yes Difficulty walking: No Paralysis: No Numbness: Yes Nervous or Anxious: Yes Depression: Yes Trouble sleeping: Yes Trouble thinking or concentrating: Yes Mood changes: Yes Panic attacks: Yes documented in this encounter Plan of Treatment Upcoming Encounters Date Type Specialty Care Team Description 12/28/2022 Virtual Visit Endocrinology Merle Mccarthy MD [address] [place], [place] [id number] (Wo rk) Scheduled Orders Name Type Priority Associated Diagnoses Order S chedule T4 free Lab Routine Hypothyroidism due to Hashim deysi's Expected: 12/27/2022, thyroiditis Expires: 2022 TSH Lab Routine Hypothyroidism due to Hashim deysi's Expected: 12/27/2022, thyroiditis Expires: 2022 documented as of this encounter Visit Diagnoses Diagnosis 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's thyroi ditis - Primary documented in this encounter Care Teams Muck Farmer Relationship Specialty Start Date End Date Billie Guadarrama PCP - General 12/17/19 [facility] [address] [place] [address] Rocio Mccarthy MD Assigned Endocrinology 04/24/[address] [place] [address] documented as of this encounter
--- OUTSIDE RECORDS SUMMARY | 2022-08-02 15:06 | XMS_ITS | Encounter Summary ---
:1995 Author Organization [facility] Address [address] [place] [address]. 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 documented as of this encounter Plan of Treatment Upcoming Encounters Date Type Specialty Care Team Description 12/28/2022 Virtual Visit Endocrinology Merle Mccarthy MD [address] [place] [address] (Wo rk) documented as of this encounter Procedures Procedure Name Priority Date/Time Associated Diagnosis Comme nts TSH Routine 06/21/2022 1:27 PM Hypothyroidism due to Results for this CDT Duane's thyroiditis proc edure are in the results section. T4 FREE Routine 06/21/2022 1:27 PM Hypothyroidism due to Results for this CDT Duane's thyroiditis proc edure are in the results section. documented in this encounter Results TSH (06/21/2022 1:27 PM CDT) P athologist Signature TSH 1.13 0.40 - 4.00 06/22/2022 [facility] mU/L 10:52 AM CDT Specimen Anatomical Collection Method / Collection Time Recei jose g Time (Source) Location / Volume Laterality Blood STRUCTURE OF LEFT Venipuncture / 06/21/2022 1:27 06/21 1:27 UPPER LIMB / Unknown PM CDT PM CDT Unknown Rocio Mccarthy MD LAB - BLOOD ORDERABLES Performing Organization Address City/State/ZIP Code Phon e Number [facility] [place], [place] [phone] [place] [facility] [id number] [place] [address] Lab (no room number, 1st floor of clinic) [facility] [place], [place] [phone] [facility] [place] [phone] [address] [place] [address] Lab (no room number, 1st floor of [...] LAB - BLOOD ORDERABLES Performing Organization Address City/State/ZIP Code Phon e Number [facility] [place], [place] [phone] [place] [facility] [id number] Lab (no room number, 1st floor of clinic) [facility] [place], [place] [phone] [facility] [place] [address], [facility] [address] Lab (no room number, 1st floor of clinic) documented in this encounter Visit Diagnoses Diagnosis 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's thyroi ditis documented in this encounter Care Teams Master Merchandiser Relationship Specialty Start Date End Date Billie Guadarrama PCP - General 12/17/19 [facility] [address] [place] [address] Rocio Mccarthy MD Assigned Endocrinology 04/24/[address] [place] [address] documented as of this encounter
--- OUTSIDE RECORDS SUMMARY | 2022-08-02 15:06 | XMS_ITS | Encounter Summary ---
:1995 Author Organization [facility] Address [address] [place] [address] Care Team Providers Name Role Phone Unavailable Primary Care Provider Unavailable Encounter Details Date Type Department Care Team Description 09/26/2001 Hospital Encounter [facility]X [facility] Ra ernie Malcolm, P.A.-C. 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 Symptoms include sore throat. Onset 1 days, unchanged since that time. Known Strep expos ure: none. She had about 1 week of preceding cold symptoms.No prescriptions on file.Review of patient's allergies indicates: No Known Aller* abstract Tobacco Use: Never Comment: NO 2ND HAND SMOKE AT HOME OBJECTIVE:Temp 100.2 Temp Src: Tympanic Wt 39 lbs (17.690 kg)Gener al appearance: alert, active, no distressEars: R TM - normal: no effusions, no erythema, and normal landmarks, L TM - normal: no effusions, no erythema, and normal landmarksNose: normalOropharynx: no rmalNeck: normalLungs: normal and clear to auscultationHeart: regular rate and rhythmASSESSMENT: Acute pharyngitis - r/o StrepRSS negativeDx: Non-strep pharyngitisRx:1) Symptomatic treatm ent with fluids, vaporizer, acetaminophen.2) Recheck as needed for persistence, worsening, appearan ce of new symptoms.PLAN:Discussed possible etiologies of symptoms and need for antibiotic treat ment if Strep found. Source: [id number] Document Id: [id number] documented in this encounter Plan of Treatment Not on filedocumented as of this encounter Visit Diagnoses Not on filedocumented in this encounter
--- OUTSIDE RECORDS SUMMARY | 2022-08-02 15:06 | XMS_ITS | Encounter Summary ---
:1995 Author Organization [place] Address [address] [place] [address]. 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 documented as of this encounter Miscellaneous Notes Telephone Encounter - Jina Harrell RN - 01/08/2022 9:37 AM CDT Patient read EqsQuesthart message. Telephone Encounter - Jina Harrell RN - 01/06/2022 2:24 PM CDT Mychart message sent. Telephone Encounter - Rocio Mccarthy MD - 01/06/2022 2:14 PM CDT [facility]O [facility] Latest Ref Rng & Units 01/05/2022 11/18/2021 TSH 0.40 - 4.00 mU/L 17.48 (H) 104.91 (H) FREE T3 2.3 - 4.2 pg/mL 2.4 1.5 (L) RVT3 9.0 - 27.0 ng/dL 10.3 FREE T4 0.76 - 1.46 ng/dL 0.82 0.64 (L) THYROGLOBULIN ENMA <40 IU/mL <20 Last visit 05/2020? Improving labs. Increase levothyroxine to 112 mcg/day (from 100 mcg/day)- 01/06/2022. Rx sent. Labs few days prior to upcoming 02/09/2022 visit. Please inform patient and help schedule virtual (video preferred)/ clinic visit. documented in this encounter Plan of Treatment Upcoming Encounters Date Type Specialty Care Team Description 12/28/2022 Virtual Visit Endocrinology Merle Mccarthy MD [address] [place] [address] (Wo rk) documented as of this encounter Results (ABNORMAL) TSH (04/05/2022 12:01 PM CDT) P athologist Signature TSH 6.20 (H) 0.40 - 4.00 04/07/2022 [facility] mU/L 12:19 PM CDT Specimen Anatomical Collection Method / Collection Time Recei jose g Time (Source) Location / Volume Laterality Blood VENOUS BLOOD / Venipuncture / 04/05/2022 12:01 022 Unknown Unknown PM CDT 12:01 PM CDT Rocio Mccarthy MD LAB - BLOOD ORDERABLES Performing Organization Address City/State/ZIP Code Phon e Number [place] [address] [address] [place] [address], Room M309 T3 Free (04/05/2022 12:01 PM CDT) P athologist Signature T3 Free 3.3 2.0 - 4.4 04/05/2022 [facility] pg/mL 8:37 PM CDT Specimen Anatomical Collection Method / Collection Time Recei jose g Time (Source) Location / Volume Laterality Blood VENOUS BLOOD / Venipuncture / 04/05/2022 12:01 022 Unknown Unknown PM CDT 12:01 PM CDT Rocio Mccarthy MD LAB - BLOOD ORDERABLES Performing Organization Address City/State/ZIP Code Phon e [place] [address] Lab [address] [facility], Room 3580 T4 free (04/05/2022 12:01 PM CDT) P athologist Signature Free T4 1.07 0.76 - 1.46 04/07/2022 [facility] ng/dL 12:13 PM CDT Specimen Anatomical Collection Method / Collection Time Recei jose g Time (Source) Location / Volume Laterality Blood VENOUS BLOOD / Venipuncture / 04/05/2022 12:01 022 Unknown Unknown PM CDT 12:01 PM CDT Rocio Mccarthy MD LAB - BLOOD ORDERABLES Performing Organization Address City/State/ZIP Code Phon e Number [place] [address] [address] [place] [address], Room M309 documented in this encounter Visit Diagnoses Diagnosis 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's thyroi ditis - Primary documented in this encounter Care Teams Safety Aide Relationship Specialty Start Date End Date Billie Guadarrama PCP - General 12/17/19 [facility] [address] [place] [address] Anthony Shaffer MD Assigned OBGYN Provider 05/10/21 05/07/[address] [place] [address] [address] [place], [place] [id number] documented as of this encounter
--- OUTSIDE RECORDS SUMMARY | 2022-08-02 15:06 | XMS_ITS | Encounter Summary ---
:1995 Author Organization [facility] Address [address] [place] [address] Care Team Providers Name Role Phone Unavailable Primary Care Provider Unavailable Encounter Details Date Type Department Care Team Description 05/09/2002 Hospital Encounter HX [facility] Ra ernie Malcolm, P.A.-C. 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 She was feeling well yesterday and last night. No vomitin g. She has not had much of an appetite this morning, but is drinking fluids well.OBJECTIVE:Temper ature 101.6, weight 42 lbs 7 oz (19.250 kg).Altagracia is alert and cooperative.Conjunctivae clear, no ninjected.Nares patent, noncongested.Oropharynx pink and moist without lesion.Ear canals clear. T Ms translucent with normal light reflex and bony landmarks. Neck supple without lymphadenopathy.Shola gs CTA bilaterally.Abdomen soft, nondistended. Bowel sounds present. No masses or organomegaly.A SSESSMENT:URIPlan:Supportive and symptomatic care only at this time. If symptoms worsen or feve r persists over next 48-72 hours, return for recheck. Source: [facility] [id number] Document Id: [id number] documented in this encounter Plan of Treatment Not on filedocumented as of this encounter Visit Diagnoses Not on filedocumented in this encounter
--- OUTSIDE RECORDS SUMMARY | 2022-08-02 15:06 | XMS_ITS | Encounter Summary ---
:1995 Author Organization [facility] Address [address] [place] [address] Care Team Providers Name Role Phone Unavailable Primary Care Provider Unavailable Encounter Details Date Type Department Care Team Description 02/14/2002 Hospital Encounter HX [facility] Al Michel M.D. 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 Joseline Hopper [id number] 02/14/02SUBJECTIVE:The patient corrales s had cold symptoms for about 2 weeks. Yesterday she began complaining of a sore throat, but has had no fever. She denies headache, abdominal pain and vomiting. She has had some coughing, but it has been sporadic. The mother states that she has not heard any wheezing and has not observed any shortn ess of breath. The coughing is sometimes forceful, but not uncontrollable. She also has questions a bout a red spot under her left eye, which has been present for about a month.OBJECTIVE:The patient is alert and in no acute distress. Skin: no rashes. There is a small spider angioma under the lef t eyeHEENT: Normocephalic. Eyes are clear. Nose congested with a small amount of purulent discha rge seen.TMs are clear. Throat: 2+ tonsils, slightly red, no exudate. Neck is supple with mild t o moderate anterior cervical adenopathy, but no tenderness. Lungs are clear to auscultation.Heart: regular rate and no murmur.Abdomen soft, and no hepatosplenomegaly. Rapid strep test negative. ASSESSMENT:1. Sinusitis with pharyngitis.2. Spider angioma.PLAN:1. Amoxicillin 600 BID for 10 da ys.2. Discussion about the natural history of spider angiomas and reassurance to the mother.3. Retu rn or call PRN persisting symptoms. Vincent Michel M.D./mpD: 02/14/02T: 02/20/02 Source: [facility] [id number] Document Id: [id number] documented in this encounter Plan of Treatment Not on filedocumented as of this encounter Visit Diagnoses Not on filedocumented in this encounter
--- OUTSIDE RECORDS SUMMARY | 2022-08-02 15:06 | XMS_ITS | Encounter Summary ---
:1995 Author Organization [place] Address [address] [place] [address]. 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 documented as of this encounter Plan of Treatment Upcoming Encounters Date Type Specialty Care Team Description 12/28/2022 Virtual Visit Endocrinology Merle Mccarthy MD [address] [place] [address] (Wo rk) documented as of this encounter Visit Diagnoses Not on filedocumented in this encounter Care Teams Dispatch Officer Relationship Specialty Start Date End Date Billie Guadarrama PCP - General 12/17/19 [facility] [address] [place] [address] Anthony Shaffer MD Assigned OBGYN Provider 05/10/21 05/07/[address] [place] [address] [address] [place], [place] [id number] documented as of this encounter
--- OUTSIDE RECORDS SUMMARY | 2022-08-02 15:06 | XMS_ITS | Encounter Summary ---
:1995 Author Organization [place] Address [address] [place] [address]. 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 documented as of this encounter Patient Instructions Patient InstructionsRocio Mccarthy MD - 04/19/2022 1:[address] [facility] [address] Mccarthy, Endocrinology Department [place] [address] Evelio [address] [facility]. [address] [place] [address] Appointment [phone] [place]: Tuesday - INCREASE SYNTHROID to 125 mcg/day. Labs in 2 months. Thyroid ultrasound with radiology. Please make a lab appointment for blood work and follow up clinic appointment in 1 week after that to discuss results. [facility] radiology scheduleing [place] [phone] [facility] scheduling [place] [phone] Please call and schedule the recommended test as discussed in clinic visit. These are the numbers tocall. documented in this encounter Progress Notes Rocio Mccarthy MD - 04/19/2022 1:00 PM CDT THIS IS A VIDEO VISIT: Phone call visit/virtual visit encounter: Name of patient: Altagracia Garcia Date of encounter: 04/19/2022 Time of start of video visit: 1:02 Video started: 1:10 Video ended: 1:26 Provider location: working from home/ [facility] Patient location: patients home. Mode of transmission: video/ Doximity Verbal consent: obtained before starting visit. Pt [...] Was requested to see endocrinology by her ELECTROSTATIC POWDER COATING TECHNICIAN from [place]. Available records, labs and images from outside clinic were personally reviewed. Since last visit she had a miscarriage. Is actively planning . #1 Hypothyroidism (+TPO): Diagnosed with Duane in 2012 and was started on levothyroxine 100 mcg/day. Currently taking 112 mcg/day. On this dose X 01/06/2022. ( was off medication for few weeks in Nov 2021 and levothyroxine was restarted after that) H/o fibromyalgia and PCOS. Takes ADITYA synthroid. Reports compliance. Feeling OK. Energy is up and down. Delivered baby in Jun 2021. Not . About 20 lbs more loose to prepregnancy weight. She is on phentermine 37.5 mg/day which is prescribed by provider outside [place] since 12/2021. Lost about 20 lbs on it. H/o miscarriage in 2019. No plans for at this time. Feels like something is stuck in throat when eating. Has discomfart. Palpitations: No Changes to hair or skin: No. Diarrhea/Constipation:h/o diarrhea- h/o cholecystectomy. Stable. Changes in menses: irregular- h/o PCOS Dysphagia or Shortness of breath:sometimes Tremors:No Changes in weight: as noted above. Heat or cold intolerance: sometimes cold History of [place] or Amiodarone use:No Head or neck surgery/radiation:No Family History of Thyroid Problems: pgm- thyroid problems. PMH/PSH: Past Medical History: Diagnosis Date ??? Depressive disorder anxiety & depression; takes medication - venlafaxine ??? Diabetes (H) 03/10/2021 GDM ??? Fibromyalgia 2012 ??? PCOS (polycystic ovarian syndrome) 2012 ??? Thyroid disease hashimotos; takes synthroid Past Surgical History: Procedure Laterality Date ??? ABDOMEN SURGERY 2015 galbladder removed ??? ENT SURGERY 2014 tonsils, adenoids, wisdom teeth ??? AIR CARGO SPECIALIST SURGERY 2019 ovarian cyst removed ? ? [...] comment: NO 2ND HAND SMOKE AT HOME Substance and Sexual Activity ??? Alcohol use: [...] which includes the following prescription(s): levothyroxine, metformin, aspirin, magnesium, nifedipine, vit-fe fumarate-fa, synthroid, synthroid, and venlafaxine. ROS ROS: 10 point ROS neg other [...] and appearance well-groomed LABS: TFTs: [facility]O [facility]ROID [facility] Latest Ref Rng & Units 04/05/2022 01/05/2022 TSH 0.40 - 4.00 mU/L 6.20 (H) 17.48 (H) FREE T3 2.0 - 4.4 pg/mL 3.3 2.4 RVT3 9.0 - 27.0 ng/dL FREE T4 0.76 - 1.46 ng/dL 1.07 0.82 Thyroid US 04/2020: US THYROID 04/14/2020 3:29 [...] of chronic thyroiditis. 2. No nodules. ?? All pertinent notes, labs, and images personally reviewed by me. A/P Ms.Myranda Mary Beth Garcia is a 26 year old here for the evaluation of hypothyroidism: #1. Hypothyroidism(+TPO): Current dose is SYNTHROID (brand) 112 mcg/day. Reports h/o fluctuating labs and dose has been changed multiple times. Not planning at this time and not . Also has h/o fibromyalgia and PCOS. Plan: Discussed diagnosis, pathophysiology, management and treatment options of condition with pt. Based on 03/2022 labs- Recommend to increase SYNTHROID 125 mcg/day (04/19/2022). Labs in 2 months. Please make a lab appointment for blood [...] Iron supplements, Cholestyramine and Calcium supplements. Follow-up: 2 months. Rocio Mccarthy MD Endocrinology [facility]/Anastasia CC: Billie Guadarrama All questions were answered. The patient indicates understanding of the above issues and agrees withthe plan set forth. documented in this encounter Nursing Notes Agustina Patton - 04/19/2022 1:00 PM CDT Pt is now also taking 37.5mg phentermine, daily documented in this encounter Plan of Treatment Upcoming Encounters Date Type Specialty Care Team Description 12/28/2022 Virtual Visit Endocrinology Merle Mccarthy MD [address] [place] [address] (Wo rk) documented as of this encounter Results TSH (06/21/2022 1:27 PM CDT) athologist [...] LAB - BLOOD ORDERABLES Performing Organization Address City/[facility] Phon e Number [facility] [place], [place] [phone] [facility] [address] Lab (no room number, 1st floor of clinic) [facility] [place], [place] [phone] [facility] [address] Lab (no room number, 1st floor [...] LAB - BLOOD ORDERABLES Performing Organization Address City/[facility] Phon e Number [facility] [place], [place] [phone] [facility] [address] Lab (no room number, 1st floor of clinic) [facility] [place], [place] [phone] [facility] [address] Lab (no room number, 1st floor of clinic) documented in this encounter Visit Diagnoses Diagnosis 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
--- OUTSIDE RECORDS SUMMARY | 2022-08-02 15:06 | XMS_ITS | Encounter Summary ---
:1995 Author Organization [place] Address [address] [place] [address]. 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 Rocio Mccarthy MD Procedures US Head Neck Soft Tissue [address] [place], [place] [address] Referral ID Status Reason Start Date Expiration Date Visits V isits Requested Authorized [id number] Pending 06/03/2022 06/03/2023 1 1 Review Reason for Visit Diagnostic Imaging Ultrasound (Routine) - Pending Review Specialty Diagnoses / Procedures Referred By Contact Refer red To Contact 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
--- OUTSIDE RECORDS SUMMARY | 2022-08-02 15:06 | XMS_ITS | Encounter Summary ---
:1995 Author Organization [place] Address [address] [place] [address]. 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 documented as of this encounter Miscellaneous Notes Result Encounter Note - Rocio Mccarthy MD - 04/05/2022 12:00 PM CDT Labs results/imaging studies results noted. Will discuss in next clinic visit 04/19/22. Here is a copy for your records. Follow-up in endocrinology Clinic as scheduled/discussed. We will review these studies/results in further detail at that visit, but feel free to contact us with any other questions in the interim. Please call endocrinology clinic (nurse line: [phone]) if questions. Rocio Mccarthy MD documented in this encounter Plan of Treatment Upcoming Encounters Date Type Specialty Care Team Description 12/28/2022 Virtual Visit Endocrinology Merle Mccarthy MD [address] [place] [address] (Wo rk) documented as of this encounter Procedures Procedure Name Priority Date/Time Associated Diagnosis Comme nts TSH Routine 04/05/2022 12:01 PM Hypothyroidism due to Results for this CDT Duane's thyroiditis proc edure are in the results section. T4 FREE Routine 04/05/2022 12:01 PM Hypothyroidism due to Results for this CDT Duane's thyroiditis proc edure are in the results section. T3 FREE Routine 04/05/2022 12:01 PM Hypothyroidism due to Results for this CDT Duane's thyroiditis proc edure are in the results section. documented in this encounter Results (ABNORMAL) TSH (04/05/2022 12:01 [...] City/State/ZIP Code Phon e Number [facility] [place] [address] Care Lab [facility], Room M309 T3 Free (04/05/2022 12:01 PM CDT) athologist Signature T3 Free 3.3 2.0 - [...] City/State/ZIP Code Phon [place] [address] Lab 500 [facility], Room 3-580 T4 free (04/05/2022 12:01 PM CDT) athologist Signature Free T4 1.07 0.76 - 1.46 04/07/2022 [facility] ng/dL 12:13 PM CDT Specimen Anatomical Collection Method / Collection Time Recei joes g Time (Source) Location / Volume Laterality Blood VENOUS BLOOD / Venipuncture / 04/05/2022 12:01 022 Unknown Unknown PM CDT 12:01 PM CDT Rocio Mccarthy MD LAB - BLOOD ORDERABLES Performing Organization Address City/State/ZIP Code [place] [phone] Care Lab [facility], Room M309 documented in this encounter Visit Diagnoses Diagnosis 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
--- OUTSIDE RECORDS SUMMARY | 2022-08-02 15:06 | XMS_ITS | Encounter Summary ---
:1995 Author Organization [place] Address [address] [place] [address]. 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
--- OUTSIDE RECORDS SUMMARY | 2022-08-02 15:06 | XMS_ITS | Encounter Summary ---
:1995 Author Organization [place] Address [facility] 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 documented as of this encounter Miscellaneous Notes Telephone Encounter - Agustina Patton - 04/19/2022 1:52 PM CDT Pls assist scheduling pt for a 2mo follow-up video visit dhaval Mccarthy (around 06/20/2022) Thanks! Agustina Patton, JACKI documented in this encounter Plan of Treatment Upcoming Encounters Date Type Specialty Care Team Description 12/28/2022 Virtual Visit Endocrinology Merle Mccarthy MD [address] [place] [address] (Wo rk) documented as of this encounter Visit Diagnoses Not on filedocumented in this encounter Care Teams Correctional Officer Sergeant Relationship Specialty Start Date End Date Billie Guadarrama PCP - General 12/17/19 [facility] [address] [place] [address] Anthony Shaffer MD Assigned OBGYN Provider 05/10/21 05/07/[address] [place] [address] 400 [place], [place] [address] documented as of this encounter
--- OUTSIDE RECORDS SUMMARY | 2022-08-02 15:06 | XMS_ITS | Encounter Summary ---
:1995 Author Organization [place] Address [address] [place] [address]. 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 VF staff tried to contact pt X 3. documented in this encounter Plan of Treatment Upcoming Encounters Date Type Specialty Care Team Description 12/28/2022 Virtual Visit Endocrinology Merle cMcarthy MD [address] [place], [place] [address] (Wo rk) documented as of this encounter Visit Diagnoses Diagnosis No-show for appointment - Primary documented in this encounter Care Teams Letterpress Setter Relationship Specialty Start Date End Date Billie Guadarrama PCP - General 12/17/19 [facility] [address] [place] [address] Anthony Shaffer MD Assigned OBGYN Provider 05/10/21 05/07/[address] [place] [address] 400 [place], [place] [address] documented as of this encounter
--- OUTSIDE RECORDS SUMMARY | 2022-08-02 15:06 | XMS_ITS | Encounter Summary ---
:1995 Author Organization [place] Address [address] [place] [address]. 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 documented as of this encounter Plan of Treatment Upcoming Encounters Date Type Specialty Care Team Description 12/28/2022 Virtual Visit Endocrinology Merle Mccarthy MD [address] [place] [address] (Wo rk) documented as of this encounter Visit Diagnoses Not on filedocumented in this encounter Care Teams Dye Jig Operator Relationship Specialty Start Date End Date Billie Guadarrama PCP - General 12/17/19 [facility] [address] [place] [address] Anthony Shaffer MD Assigned OBGYN Provider 05/10/21 05/07/[address] [place] [address] documented as of this encounter
--- OUTSIDE RECORDS SUMMARY | 2022-08-02 15:06 | XMS_ITS | Encounter Summary ---
:1995 Author Organization [place] Address [address] [place] [address]. 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 documented as of this encounter Miscellaneous Notes Telephone Encounter - Jina Harrell RN - 04/21/2022 8:24 AM CDT New Rx sent Telephone Encounter - Ava Garsia - 04/21/2022 8:16 AM CDT Pharmacy calling requesting that status of below request stating patient is out of medication. Pharmacy also stated they spoke to patient and patient approves having the generic medication. Please callto discuss thank you. Telephone Encounter - Jina Harrell RN - 04/19/2022 2:32 PM CDT avocarrott message to pt to verify if taking synthroid or levothyroxine as rx's sent for synthroid previously and levothyroxine. Rx was sent for levothyroxine. Telephone Encounter - Sharmin Peacock - 04/19/2022 2:21 PM CDT [facility] Call Center Phone Message May a detailed message be left on voicemail: yes Reason for Call: Medication Question or concern regarding medication Prescription Clarification Name of Medication: levothyroxine (SYNTHROID/LEVOTHROID) 125 MCG tablet Prescribing Provider: Dr. Mccarthy Pharmacy: [facility] [address] [place] [address] What on the order needs clarification? Brand name is not covered by insurance pharmacy needs permission to switch to generic. Please reach out to pharmacy . Thank you . 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
--- OUTSIDE RECORDS SUMMARY | 2022-08-02 15:06 | XMS_ITS | Encounter Summary ---
:1995 Author Organization [place] Address [address] [place] [address]. [place] [address] Care Team Providers Name Role Phone Billie Guadarrama Primary Care Provider Rocio Mccarthy MD Unavailable Reason for Referral Diagnostic Imaging Ultrasound (Routine) - Pending Review Specialty Diagnoses / Procedures Referred By Contact Refer red To Contact 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 Rocio Mccarthy MD Procedures US Head Neck Soft Tissue [address] [place], [place] [address] Referral ID Status Reason Start Date Expiration Date Visits V isits Requested Authorized [id number] Pending 06/03/2022 06/03/2023 1 1 Review Reason for Visit Reason Onset Date Comments Call Back 06/01/2022 Encounter Details Date Type Department Care Team Description 06/01/2022 Telephone [facility] Merle Mccarthy, Call Back [facility]ER [address] [facility] [address] [place], [place] [address] [place] [address] [phone] (Wo rk) Social History Tobacco Use Types [...] at Date Recorded 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 Follow up video visit 06/29 at 1230 (ok to add on) Ok to order US- needs few days prior to appointment. Telephone Encounter - Rocio Mccarthy MD - 06/03/2022 11:02 AM CDT US neck. Telephone Encounter - Jina Harrell RN - 06/03/2022 9:04 AM CDT Please advise if provider wants US of Thyroid or neck. Pt stated it was for neck, however patient is seen for thyroid. Telephone Encounter - Rocio Mccarthy MD - 06/03/2022 9:00 AM CDT Labs 06/21. Follow up video visit 06/29 at 1230 (ok to add on) Ok to order US- needs few days prior to appointment. Telephone Encounter - Sharmin Peacock - 06/01/2022 10:21 AM CDT [facility] Call Center Phone Message May a detailed message be left on voicemail: yes Reason for Call: Other: Per patient and notes from encounter on 04/19/2022 patient to have a follow up appointment in June please reach out to coordinate as no options are open at that time on regular schedule. Also per patient she is to have a ultra sound done of her neck but there are no orders. Thank you . 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 [address] [place] [address] Rocio Mccarthy MD Assigned Endocrinology 04/24/[address] [place] [address] documented as of this encounter
--- OUTSIDE RECORDS SUMMARY | 2022-08-02 15:06 | XMS_ITS | Encounter Summary ---
:1995 Author Organization [place] Address [address] [place] [address]. 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 documented as of this encounter Progress Notes Marely Cota - 12/17/2021 3:[address] or confirm orders for upcoming lab appointment on 01/05/2022, orders in chart are . Thank You. RANCE ACCOUNT SPECIALIST Jina Harrell RN - 12/17/2021 3:20 PM CST Lab orders placed. RANCE ACCOUNT SPECIALIST documented in this encounter Miscellaneous Notes Telephone Encounter - Rocio Mccarthy MD - 12/17/2021 3:41 PM INSURANCE ACCOUNT SPECIALIST Endo staff- can you please take a look into this? Thank you. RANCE ACCOUNT SPECIALIST documented in this encounter Plan of Treatment Upcoming Encounters Date Type Specialty Care Team Description 12/28/2022 Virtual Visit Endocrinology Merle Mccarthy MD [address] [place] [address] (Wo rk) documented as of this encounter Results T3 Free (01/05/2022 1:33 PM CDT) P athologist Signature T3 Free 2.4 2.3 - 4.2 01/05/2022 [facility] pg/mL 7:28 PM CDT Specimen Anatomical Collection Method / Collection Time Recei jose g Time (Source) Location / Volume Laterality Blood VENOUS BLOOD / Venipuncture / 01/05/2022 1:33 01/06/20 22 1:33 Unknown Unknown PM CDT PM CDT Rocio Mccarthy MD LAB - BLOOD ORDERABLES Performing Organization Address City/State/ZIP Code Phon e Number [facility] [place] [address] Lab [address] [facility] J Building, Room 3-580 T4 free (01/05/2022 1:33 PM CDT) P athologist Signature Free T4 0.82 0.76 - 1.46 01/06/2022 [facility] ng/dL 10:34 AM CDT Specimen Anatomical Collection Method / Collection Time Recei jose g Time (Source) Location / Volume Laterality Blood VENOUS BLOOD / Venipuncture / 01/05/2022 1:33 01/06/20 22 1:33 Unknown Unknown PM CDT PM CDT Rocio Mccarthy MD LAB - BLOOD ORDERABLES Performing Organization Address [facility] Phon e Number [facility] [place], [place] [phone] [facility] [phone] Lab (no room number, 1st floor of clinic) [facility] [place], [place] [phone] [facility] [address] Lab (no room number, 1st floor of clinic) (ABNORMAL) TSH (01/05/2022 1:33 PM CDT) athologist Signature TSH 17.48 (H) 0.40 - 4.00 01/06/2022 [facility] mU/L 10:40 AM CDT Specimen Anatomical Collection Method / Collection Time Recei jose g Time (Source) Location / Volume Laterality Blood VENOUS BLOOD / Venipuncture / 01/05/2022 1:33 01/06/20 22 1:33 Unknown Unknown PM CDT PM CDT Rocio Mccarthy MD LAB - BLOOD ORDERABLES Performing Organization Address [facility] Phon e Number [facility] [place], [place] [phone] [facility] [phone] Lab (no room number, 1st floor of clinic) [facility] [place], [place] [phone] [place] [id number] [place] [address] [facility] [address] Lab (no room number, 1st floor of clinic) documented in this encounter Visit Diagnoses Diagnosis 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
--- OUTSIDE RECORDS SUMMARY | 2022-08-02 15:06 | XMS_ITS | Encounter Summary ---
:1995 Author Organization [place] Address [address] [place] [address]. 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 documented as of this encounter Miscellaneous Notes Result Encounter Note - Rocio Mccarthy MD - 01/05/2022 1:30 PM CDT Labs/results noted. Please see telephone encounter dated 01/06/2022. documented in this encounter Plan of Treatment Upcoming Encounters Date Type Specialty Care Team Description 12/28/2022 Virtual Visit Endocrinology Merle Mccarthy MD [address] [place] [address] (Wo rk) documented as of this encounter Procedures Procedure Name Priority Date/Time Associated Diagnosis Comme nts TSH Routine 01/05/2022 1:33 PM Hypothyroidism due to Results for this CDT Duane's thyroiditis proc edure are in the results section. T4 FREE Routine 01/05/2022 1:33 PM Hypothyroidism due to Results for this CDT Duane's thyroiditis proc edure are in the results section. T3 FREE Routine 01/05/2022 1:33 PM Hypothyroidism due to Results for this CDT Duane's thyroiditis proc edure are in the results section. documented in this encounter Results T3 Free (01/05/2022 1:33 PM CDT) athologist Signature T3 Free 2.4 2.3 - [...] City/State/ZIP Code Phon e Number [facility] [place] [address] Lab [address] [facility] [address] [facility], Room 3-580 T4 free (01/05/2022 1:33 PM CDT) athologist Signature Free T4 0.82 0.76 - 1.46 01/06/2022 [facility] ng/dL 10:34 AM CDT Specimen Anatomical Collection Method / Collection Time Recei jose g Time (Source) Location / Volume Laterality Blood VENOUS BLOOD / Venipuncture / 01/05/2022 1:33 01/06/20 22 1:33 Unknown Unknown PM CDT PM CDT Rocio Mccarthy MD LAB - BLOOD ORDERABLES Performing Organization Address [facility] Phon e Number [facility] [place], [place] [phone] [place] [facility] [phone] Lab (no room number, 1st floor of clinic) [facility] [place], [place] [phone] [facility] [email or web address] [address] Lab (no room number, 1st floor of clinic) (ABNORMAL) TSH (01/05/2022 1:33 PM CDT) P athologist Signature TSH 17.48 (H) 0.40 - 4.00 01/06/2022 [facility] mU/L 10:40 AM CDT Specimen Anatomical Collection Method / Collection Time Recei jose g Time (Source) Location / Volume Laterality Blood VENOUS BLOOD / Venipuncture / 01/05/2022 1:33 01/06/20 22 1:33 Unknown Unknown PM CDT PM CDT Rocio Mccarthy MD LAB - BLOOD ORDERABLES Performing Organization Address [facility] Phon e Number [facility] [place], [place] [phone] [place] [facility] [phone] Lab (no room number, 1st floor of clinic) [facility] [place], [place] [phone] 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
--- OUTSIDE RECORDS SUMMARY | 2022-08-02 15:06 | XMS_ITS | Encounter Summary ---
:1995 Author Organization [place] Address [address] [place] [address]. 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 documented as of this encounter Plan of Treatment Upcoming Encounters Date Type Specialty Care Team Description 12/28/2022 Virtual Visit Endocrinology Merle Mccarthy MD [address] [place] [address] (Wo rk) documented as of this encounter Visit Diagnoses Not on filedocumented in this encounter Care Teams Second Facing Baster Relationship Specialty Start Date End Date Billie Guadarrama PCP - General 12/17/19 [facility] 1400 [place] [address] Anthony Shaffer MD Assigned OBGYN Provider 05/10/21 05/07/[address] [place] [address] 400 [place], [place] [phone] documented as of this encounter
--- OUTSIDE RECORDS SUMMARY | 2022-08-02 15:06 | XMS_ITS | Encounter Summary ---
:1995 Author Organization [facility] Address [address] [place] [address] Care Team Providers Name Role Phone Unavailable Primary Care Provider Unavailable Encounter Details Date Type Department Care Team Description 06/01/2002 Hospital Encounter HX [facility] Al Michel M.D. 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 HIST ORYCurrent Concerns: Costipated, sometimes going several(up to 5) days without a bowel movement. Oc c. has blood in stools and appears to hold back. Seemed to start at the time of potty training. t: appropriate diet, picky and disorganized meal timeWater Source: city water.Elimination: Constipa tion off and on, Normal urination, Potty trained Sleep: sleeps through the nightDaycare: NoNotewor thy social stressors: noneHistory Modules Reviewed: YesPatient Active Problem List: NO ACTIVE SC OBLEMS[[id number]]Any hearing or vision concerns? noDEVELOPMENTAL SCREEN: Parent Concerns about Dev elopment:NOSchool district screening (hearing/vision):Not AskedSOCIALNames friend: YesWas h and Dry hands: YesDresses independently:Yes FINE MOTORCopies [place]: YesCopies cross : YesCopies square: Yes Thumb wiggle: YesGROSS MOTORDown Stairs alone: YesBalance 1 foot 2 sec: YesHop on each foot(5x): YesLANGUAGEUnderstandable speech:YesCount by r ote: YesPHYSICAL EXAM: Ht 3' 8.25 (1.124m) Wt 42 lbs 14 oz (19.459 kg)Growth charts re viewed.General: Alert, interactive and appropriateHead: NORMALEyes: NORMAL EOM (cover/uncover): NORMALEars: NORMALNose: NORMALMouth: NORMALNeck: NORMALResp: NO RMALHeart: NORMALAbdomen: NORMALGenitalia: NORMAL femaleMusculoskeletal: NORMAL Gait: NORMALSkin: DAVID LNeurological: NORMALEDUCATION/DISCUSSED: Limit TVRisk Assessment Reviewed and Discus sed:YesASSESSMENT/PLAN:1.Constipation: Miralax 1/2 dose qd x 4d, then bowel retraining using gold miner blasting al oil. See patient instructions. Recheck in 2 months.2.Normal growth and development at 6 year o ld.Handout on age appropriate development/safety given.Reviewed immunizations. Return in 1 year (a ge 7 years). Source: [facility] [id number] Document Id: [id number] documented in this encounter Plan of Treatment Not on filedocumented as of this encounter Visit Diagnoses Not on filedocumented in this encounter
--- OUTSIDE RECORDS SUMMARY | 2022-08-02 15:07 | XMS_ITS | Encounter Summary ---
:1995 Author Organization [facility] Address [address] [place] [address]. [place] [address] Care Team Providers Name Role Phone Billie Guadarrama Primary Care Provider Rocio Mccarthy MD Unavailable Anthony Shaffer MD Unavailable Reason for Visit Reason Onset Date Comments Medication Refill Refill Request 06/04/2021 Encounter Details Date Type Department Care Team Description 06/01/[address] 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 documented as of this encounter Miscellaneous Notes Telephone Encounter - Chelita Harrell CMA - 06/08/2021 10:16 AM CDT Message sent via [employer]. Maritza Harrell CMA [facility]/Anastasia Telephone Encounter - Angelic Stanford RN - 06/05/2021 9:14 AM CDT Left message for patient to call back. Telephone Encounter - Sariah Carrillo - 06/04/2021 2:34 PM CDT [facility] Phone Message May a detailed message be left on voicemail: yes Reason for Call: Other: Pt returned call to clinic, requesting call back Action Taken: Message routed to: Other: endo Telephone Encounter - Goldie Mckeon LPN - 06/04/2021 1:57 PM CDT Patient's home/cell number message on machine to call back. Telephone Encounter - Rocio Mccarthy MD - 06/03/2021 12:19 PM CDT Last visit: 05/2020. Patient is due for labs and clinic visit. Limited amount of Rx sent. No refills. I am sorry but I will not be able to refill further prescription at this time until Altagracia makes a labs and clinic visit appointment. Please make a lab appointment for blood work and follow up clinic appointment in 1 week after that to discuss results. Please inform patient. Please help schedule labs and clinic appointment if needed. Let me know if you have any questions. Thank you. Rocio Mccarthy MD TSH Date Value Ref Range Status 05/21/2020 0.48 0.40 - 4.00 mU/L Final Telephone Encounter - Angelic Stanford RN - 06/03/2021 11:05 AM CDT Pending Prescriptions: Disp Refills SYNTHROID 100 MCG tablet [Pharmacy Med Nam*90 tab*3 Sig: TAKE ONE TABLET BY MOUTH EVERY DAY (TAKE WITH 88 MCG TABLET) SYNTHROID 88 MCG tablet [Pharmacy Med Name*90 tab*3 Sig: TAKE ONE TABLET BY MOUTH EVERY DAY (TAKE WITH 100MCG DAILY) Routing refill request to provider for review/approval because: Protocol failed. Please advise, thanks. 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
--- OUTSIDE RECORDS SUMMARY | 2022-08-02 15:07 | XMS_ITS | Encounter Summary ---
:1995 Author Organization [facility] Address [address] [place] [place] [address] Care Team Providers Name Role Phone Billie Guadarrama Primary Care Provider Rocio Mccarthy MD Unavailable Anthony Shaffer MD Unavailable Reason for Referral Care Coordination (Routine) - Closed Specialty Diagnoses / Procedures Referred By Contact Refer red To Contact Diagnoses Other specified counseling [address] [place] [address] Referral ID Status Reason Start Date Expiration Date Visits Requ ested Visits Authorized [id number] Closed 05/27/2021 05/27/2022 1 1 Encounter Details Date Type Department Care Team Description 05/27/2021 Orders Only [facility] Shameka Guadarrama Other specified Care Coordination [facility] [address] [facility] [place], [place] [address] [address] [place] [address] [phone] (Wo rk) Social History Tobacco Use Types [...] at Date Recorded 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 documented as of this encounter Plan of Treatment Upcoming Encounters Date Type Specialty Care Team Description 12/28/2022 Virtual Visit Endocrinology Merle Mccarthy MD [address] [place], [place] [phone] (Wo rk) Scheduled Referrals Name Type Priority Associated Diagnoses Order S [facility] Discharge Referral Routine Other specified Ex pected: 05/27/2021 - Referral to CC counseling (Approximat e), Expires: 2021 documented as of this encounter Visit Diagnoses Diagnosis Other specified counseling documented in this encounter Care Teams Special Delivery Messenger Relationship Specialty Start Date End Date Billie Guadarrama PCP - General 12/17/19 [facility] [address] [place] [address] Rocio Mccarthy MD Assigned Endocrinology 08/01/20 11/28/[address] Provider [place], [place] [address] Anthony Shaffer MD Assigned OBGYN Provider 05/10/21 05/07/[address] [place], [place] [address] documented as of this encounter
--- OUTSIDE RECORDS SUMMARY | 2022-08-02 15:07 | XMS_ITS | Encounter Summary ---
:1995 Author Organization [facility] Address [facility] [place] [address] Care Team Providers Name Role Phone Billie Guadarrama Primary Care Provider Rocio Mccarthy MD Unavailable Anthony Shaffer MD Unavailable Reason for Visit Consultation (Routine) - Closed Specialty Diagnoses / Procedures Referred By Contact Refer red To Contact Diagnoses affected by growth restriction Anthony Shaffer MD [address] [place], [place] [address] Referral ID Status Reason Start Date Expiration Date Visits Requ ested Visits Authorized [id number] Closed 05/01/2021 05/01/2022 1 1 Encounter Details Date Type Department Care Team Description 05/26/2021 Office Visit [facility] Anthony Shaffer MD [address] [place] [address] affected by Maternal ContJorge Luis adhikari MD [address] [place] [address] [facility] Cecille Marsh MD [address] [place] [address] restriction [place] [address] [place] [address] Social History Tobacco Use Types Packs/Day Years [...] at Date Recorded 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 COVID-19 Exposure Response Date Recorded [...] [address] [place] [address] (Wo rk) documented as of this encounter Visit Diagnoses Diagnosis affected by growth restr iction documented in this encounter Care Teams Licensed Insurance Sales Agent Relationship Specialty Start Date End Date Billie Guadarrama PCP - General 12/17/19 [facility] [address] [place] [address] Rocio Mccarthy MD Assigned Endocrinology 08/01/20 11/28/[address] [place] [address] Anthony Shaffer MD Assigned OBGYN Provider 05/10/21 05/07/[address] [place] [address] documented as of this encounter
--- OUTSIDE RECORDS SUMMARY | 2022-08-02 15:07 | XMS_ITS | Encounter Summary ---
:1995 Author Organization [facility] Address [address] [place] [address]. 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 documented as of this encounter Plan of Treatment Upcoming Encounters Date Type Specialty Care Team Description 12/28/2022 Virtual Visit Endocrinology Merle Mccarthy MD [address] [place] [address] (Wo rk) documented as of this encounter Visit Diagnoses Not on filedocumented in this encounter Care Teams Accounts Payable Or Receivable Clerk Relationship Specialty Start Date End Date Billie Guadarrama PCP - General 12/17/19 [facility] [address] [place] [address] Rocio cMcarthy MD Assigned Endocrinology 08/01/20 11/28/21 [address] [facility] [address] [place] [address] Anthony Shaffer MD Assigned OBGYN Provider 05/10/21 05/07/22 [address] [facility] [address] [place] [address] documented as of this encounter
--- OUTSIDE RECORDS SUMMARY | 2022-08-02 15:07 | XMS_ITS | Encounter Summary ---
:1995 Author Organization [place] Address [facility] 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 Diagnoses Encounter for triage in patient labor Encounter for triage in patient labor [facility] [address] [place], [place] [address] Phone: Fax: Referral ID Status Reason Start Date Expiration Date Visits Requ ested Visits Authorized [id number] 1 1 Encounter Details Date Type Department Care Team Description 06/04/2021 Hospital Encounter [facility] Oz Marcial MD [address] [place] [address] [facility] Lilian Alexander MD [address] [facility] [address] [place] [id number] [address] [place] [address] Social History Tobacco Use Types [...] at Date Recorded 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 documented as of this encounter Last Filed Vital Signs Vital Sign Reading Time Taken Comments Blood Pressure 123/81 06/04/2021 4:48 PM CDT Pulse - - Temperature 37 ??C (98.6 ??F) 06/04/2021 4:48 PM CDT Respiratory Rate 16 06/04/2021 4:48 PM CDT Oxygen Saturation - - Inhaled Oxygen Concentration - - Weight - - Height - - Body Mass Index - - documented in this encounter Discharge Instructions Discharge InstructionsCandice Austin RN - 06/04/2021 8:47 PM CDT Discharge Instruction for Undelivered Patients You were seen for: Labor Assessment We Consulted: Dr. Marcial/Dr. Alexander You had (Test or Medicine): labor and assessment, wet prep and rom plus swab Diet: To manage your diabetes, follow the guidelines for eating and drinking given to you by your Clinic Provider or Enrollment Management Director. Activity: Call your doctor or nurse tack coverer if your baby is moving less than usual. Call your provider if you notice: Swelling in your face or increased swelling in your hands or legs. Headaches that are not relieved by Tylenol (acetaminophen). Changes in your vision (blurring: seeing spots or stars.) Nausea (sick to your stomach) and vomiting (throwing up). Weight gain of 5 pounds or more per week. Heartburn that doesn't go away. Signs of bladder infection: pain when you urinate (use the toilet), need to go more often and more urgently. The bag of gaxiola (rupture of membranes) breaks, or you notice leaking in your underwear. Bright red blood in your underwear. Abdominal (lower belly) or stomach pain. For first baby: Contractions (tightening) less than 5 minutes apart for one hour or more. Second (plus) baby: Contractions (tightening) less than 10 minutes apart and getting stronger. *If less than 34 weeks: Contractions (tightening) more than 6 times in one hour. Increase or change in vaginal discharge (note the color and amount) Follow-up: As scheduled in the clinic and twice weekly until delivery AttachmentsThe following attachments cannot be sent through Care Everywhere. Premature Labor (Cameroonian)Labor, Understanding (Cameroonian)documented in this encounter Medications at Time of Discharge Medication Sig Dispensed Refills Start Date End Date aspirin (ASA) 81 MG Take 81 mg by mouth 0 chewable daily tabletIndications: GHTN metFORMIN (GLUCOPHAGE) Take 1,000 mg by 0 1000 MG tablet mouth 2 times daily (with meals) Vit-Fe Take by mouth daily 0 Fumarate-FA ( VITAMIN PO) magnesium 250 MG tablet Take 1 tablet by 0 04/19/2022 mouth daily NIFEdipine (PROCARDIA) 20 Take 1 capsule (20 4 capsule 0 04/19/2022 MG capsuleIndications: mg) by mouth every contractions 8 hours for 4 doses SYNTHROID 100 MCG TAKE ONE TABLET BY 90 tablet 0 06/03/2021 04/19/2022 tabletIndications: MOUTH EVERY DAY 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 Cervical exam 3.5/60/-1. Membranes intact. Contractions irregular. Action: Presumed adequate oxygenation documented (see flow record). Discharge instructions reviewed. Patient instructed to report change in movement, vaginal leaking of fluid or bleeding, abdominal pain, or any concerns related to the to her nurse/physician. Response: Orders to discharge home per . Patient verbalized understanding of education and verbalized agreement with plan. Discharged to home at 2054. Provider Notification - Candice Austin RN - 06/04/2021 8:45 PM CDT 06/04/212044 Provider Notification Provider Name/Title Dr. Alexander Method of Notification Phone MD notified of normal lab results. Orders to discharge patient home. Patient asking about something for pain; orders for vistaril 50 mg PO once. Provider Notification - Candice Austin RN - 06/04/2021 7:41 PM CDT 06/04/211940 Provider Notification Provider Name/Title Dr. Alexander Method of Notification Phone Request Evaluate - Remote Notification Reason Status Update MD updated on patient status. MD reviewed clinical history in chart, and labor history discussed from previous hospital stay. Pt came in for cramping and sharp vaginal pain. Current SVE 3.5/60/-1, which is a slight change from 2 hours prior, and less dilated and thicker than when she was here last. Contractions noted in the toco about q3-10 min apart, palpating mild. Patient describes them asconstant or continuous cramping. She denies vaginal bleeding and states that she sometimes has soaking wet underwear but she doesn't know if its urine or not, and it doesn't happen all the time. She is planning on delivering at [place] [facility] but they only take 35 weeks and up, so she was diverted here.Going further, MD would like the patient to be seen x2 weekly in clinic, and to go to the clinic to have a cervical exam if she goes home and contractions worsen within the next week because the drive here is so far. Orders for a wet prep and rom plus and if everything is normal, to discharge patient home. Will notify MD if anything changes. Provider Notification - Steffi Maria RN - 06/04/2021 5:16 PM CDT 06/04/212 Provider Notification Provider Name/Title Dr. Marcial Method of Notification Phone Request Evaluate - Remote Notification Reason Patient Arrived SVE /-1. No cx, some cramping. Cat I tracing. New orders to recheck cervix in 2 hours. Send UA. Orally hydrate. If no change in cervix in 2 hours, ok to discharge. Plan of Care - Steffi Maria RN - 06/04/2021 5:00 PM CDT Data: Patient presented to [facility]: 06/04/2021 4:40 PM. Reason for maternal/ assessment is pelvic pain, cramping. Patient reports this started this morning. Patient is a . recordreviewed. has been complicated by gestational diabetes, diet controlled. Gestational Age 34w0d. VSS. movement active. Patient denies uterine contractions, leaking of vaginal fluid/rupture of membranes, vaginal bleeding, abdominal pain, pelvic pressure, nausea, vomiting, headache, visual disturbances, epigastric or URQ pain, significant edema. Support person is present. Action: Verbal consent for EFM. Triage assessment completed. Bill of rights reviewed. Response: Patient verbalized agreement with plan. Will contact Dr Simon Marcial with update and for further orders. documented in this encounter Plan of Treatment Upcoming Encounters Date Type Specialty Care Team Description 12/28/2022 Virtual Visit Endocrinology Merle Mccarthy MD [address] [place] [address] (Wo rk) documented as of this encounter Procedures Procedure Name Priority Date/Time Associated Comments Diagnosis RUPTURE OF STAT 06/04/2021 8:03 PM Resul ts for this MEMBRANES BY ROM PLUS CDT proced ure are in the results section. WET PREPARATION STAT 06/04/2021 8:03 PM Result s for this CDT procedure are i n the results section. ROUTINE UA WITH Routine 06/04/2021 5:20 PM Result s for this MICROSCOPIC REFLEX TO CDT proced ure are in CULTURE the results section. documented in this encounter Results (ABNORMAL) Wet preparation (06/04/2021 8:03 PM CDT) Analysis Performed At Patho logist Time Signature Trichomonas Absent Absent JOSE MANUEL 06/04/2021 [facility] 8:23 PM CDT Yeast Absent Absent JOSE MANUEL 06/04/2021 [facility] 8:23 PM CDT Clue Cells Absent Absent JOSE MANUEL 06/04/2021 [facility] 8:23 PM CDT WBCs/high power 1+ (A) None JOSE MANUEL 06/04/2021 [facility] field 8:23 PM CDT Specimen Anatomical Collection Method Collection Time Receive d Time (Source) Location / / Volume Laterality Swab VAGINAL STRUCTURE Non-blood 06/04/2021 8:03 PM /03/2021 8:13 / Unknown Collection / CDT PM CDT Unknown Lilian Alexander MD LAB - MICRO GENERAL ORDER [place] Performing Organization Address City/State/ZIP Code Phon e Number [place] [address] Care [facility] [address] Lab (1st floor, no room number) Rupture of Membranes by ROM Plus (06/04/2021 8:03 PM CDT) Patholo gist Method Time Signature Rupture of Negative Negative, JOSE MANUEL 06/04/2021 [facility] Invalid, 8:38 PM CDT Membranes by Suggest ROM Plus Repeat Specimen Anatomical Collection Method Collection Time Receive d Time (Source) Location / / Volume Laterality Swab VAGINAL STRUCTURE Non-blood 06/04/2021 8:03 PM 08/2 03/2021 8:13 / Unknown Collection / CDT PM CDT Unknown Narrative [facility] - 06/04/2021 8:38 PM CDT It is recommended that the tests to dete ct rupture of the amniotic membranes should not be used without other clinical asses sments to make clinical patient management decision. Lilian Alexander MD LAB - BODY FLUIDS ORDERAB LES Performing Organization Address City/State/ZIP Code Phon e Number [place] [address] Care [facility] [address] Lab (1st floor, no room number) (ABNORMAL) UA with Microscopic reflex to Culture (06/04/2021 5:20 PM CDT) Patholo gist Method Time Signature Color Urine Light Colorless, 06/04/2021 LABORATORY Yellow Straw, 5:34 PM CDT Light Yellow, Yellow Appearance Urine Clear Clear 06/04/2021 LABORATOR Y 5:34 PM CDT Glucose Urine Negative Negative 06/04/2021 LABORATORY mg/dL 5:34 PM CDT Bilirubin Urine Negative Negative 06/04/2021 [facility] 5:34 PM CDT Ketones Urine Negative Negative 06/04/2021 LAB[facility]ATORY mg/dL 5:34 PM CDT Specific [place] 1.021 1.003 - 06/04/2021 LABORATOR Y Urine 1.035 5:34 PM CDT Blood Urine Negative Negative 06/04/2021 LABORATORY 5:34 PM CDT pH Urine 5.5 5.0 - 7.0 06/04/2021 LAB[facility]ORY 5:34 PM CDT Protein Albumin 10 (A) Negative 06/04/2021 LABORATORY Urine mg/dL 5:34 PM CDT Urobilinogen Normal Normal, 2.0 06/04/2021 LABORATORY Urine mg/dL 5:34 PM CDT Nitrite Urine Negative Negative 06/04/2021 [facility] 5:34 PM CDT Leukocyte Trace (A) Negative 06/04/2021 LABORATORY Esterase Urine 5:34 PM CDT Bacteria Urine Few (A) None Seen 06/04/2021 [facility] /HPF 5:34 PM CDT Mucus Urine Present (A) None Seen 06/04/2021 [facility] /LPF 5:34 PM CDT RBC Urine 4 (H) <=2 /HPF 06/04/2021 [facility] 5:34 PM CDT WBC Urine 5 <=5 /HPF 06/04/2021 [facility] 5:34 PM CDT Squamous 1 <=1 /HPF 06/04/2021 [facility]ATORY Epithelials 5:34 PM CDT Urine Hyaline Casts 1 <=2 /LPF 06/04/2021 LAB[facility]ATORY Urine 5:34 PM CDT Specimen Anatomical Collection Method Collection Time Receive d Time (Source) Location / / Volume Laterality Urine URINE SPECIMEN Non-blood 06/04/2021 5:20 PM 021 5:26 OBTAINED BY CLEAN Collection / CDT PM CDT CATCH PROCEDURE / Unknown Unknown Narrative LABORATORY - 06/04/2021 5:34 PM CDT Urine Culture not indicated Simon Marcial MD LAB - URINE ORDERABLES Performing Organization Address City/State/ZIP Code Phon [place] [address] Care [facility] [address] [facility] Lab (1st floor, no room number) documented in this encounter Visit Diagnoses Diagnosis Encounter for triage in patient documented in this encounter Admitting Diagnoses Diagnosis Encounter for triage in patient documented in this encounter Administered Medications Inactive Administered Medications - up to 3 most recent administrations Medication Order MAR Action Action Date Dose Rate Site hydrOXYzine (ATARAX) tablet 50 mg Given 06/04/2021 9:01 PM CDT 50 mg 50 mg, Oral, ONCE, On Mimi 06/04/21 at 2100, For 1 dose documented in this encounter Active and Recently Administered Medications Times are shown in CDT. Scheduled Medication Order 06/02/2021 06/03/2021 06/04/2021 hydrOXYzine (ATARAX) tablet 50 mg (COMPLETED) 2100 (Given - Provider: Candice Austin RN) 50 mg, Oral, ONCE, On Mimi 06/04/21 at 2100, For 1 dose documented in this encounter Care Teams Commercial Loan Processor Relationship Specialty Start Date End Date Billie Guadarrama PCP - General 12/17/19 [facility] [address] [place] [address] Rocio Mccarthy MD Assigned Endocrinology 08/01/20 11/28/21 [address] [facility] 200 [place] [address] Anthony Shaffer MD Assigned OBGYN Provider 05/10/21 05/07/[address] [place] [address] [address] [place], [place] [address] documented as of this encounter
--- OUTSIDE RECORDS SUMMARY | 2022-08-02 15:07 | XMS_ITS | Encounter Summary ---
:1995 Author Organization [place] Address [address] [place] [address]. 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 documented as of this encounter Plan of Treatment Upcoming Encounters Date Type Specialty Care Team Description 12/28/2022 Virtual Visit Endocrinology Merle Mccarthy MD [address] [place], [place] [address] (Wo rk) documented as of this encounter Visit Diagnoses Not on filedocumented in this encounter Care Teams Branch Specialist Relationship Specialty Start Date End Date Billie Guadarrama PCP - General 12/17/19 [facility] [address] [place] [address] Rocio Mccarthy MD Assigned Endocrinology 08/01/20 11/28/21 [address] [facility] 200 [place] [address] Anthony Shaffer MD Assigned OBGYN Provider 05/10/21 05/07/22 [address] [facility] 400 [place], [place] [id number] documented as of this encounter
--- OUTSIDE RECORDS SUMMARY | 2022-08-02 15:07 | XMS_ITS | Encounter Summary ---
:1995 Author Organization [place] Address [address] [place] [address]. 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 documented as of this encounter Plan of Treatment Upcoming Encounters Date Type Specialty Care Team Description 12/28/2022 Virtual Visit Endocrinology Merle Mccarthy MD [address] [place], [place] [address] (Wo rk) documented as of this encounter Visit Diagnoses Not on filedocumented in this encounter Care Teams Printing Roller Polisher Relationship Specialty Start Date End Date Billie Guadarrama PCP - General 12/17/19 [facility] [address] [place] [address] Rocio Mccarthy MD Assigned Endocrinology 08/01/20 11/28/21 [address] [facility] 200 [place] [address] Anthony Shaffer MD Assigned OBGYN Provider 05/10/21 05/07/22 [address] [facility] 400 [place], [place] [address] documented as of this encounter
--- OUTSIDE RECORDS SUMMARY | 2022-08-02 15:07 | XMS_ITS | Encounter Summary ---
:1995 Author Organization [place] Address [facility] [place] [address] Care Team Providers Name Role Phone Billie Guadarrama Primary Care Provider Rocio Mccarthy MD Unavailable Anthony Shaffer MD Unavailable Encounter Details Date Type Department Care Team Description 05/29/2021 Anesthesia Event M [facility] Hasmukh Olson MD [facility] [address] [facility] [address] [place] [address] [place], [place] [address] (Wo rk) Anesthesia Record Procedure Summary Procedure Name Responsible Anesthesia Start Time Anesthesia Stop Time Anesthesiologist LABOR ANALGESIA Events No events on file. No medications on file. Agents No agents on file. Blood No blood administrations on file. Lines, Drains, and Airways No LDAs on file. 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 documented as of this encounter Plan of Treatment Upcoming Encounters Date Type Specialty Care Team Description 12/28/2022 Virtual Visit Endocrinology Merle Mccarthy MD [address] [place], [place] [address] (Wo rk) documented as of this encounter Visit Diagnoses Not on filedocumented in this encounter Care Teams Radiology Director Relationship Specialty Start Date End Date Billie Guadarrama PCP - General 12/17/19 [facility] [address] [place] [address] Rocio Mccarthy MD Assigned Endocrinology 08/01/20 11/28/[address] [facility] [address] Provider [place], [place] [address] Anthony Shaffer MD Assigned OBGYN Provider 05/10/21 05/07/22 [address] [facility] [address] [place], [place] [address] documented as of this encounter
--- OUTSIDE RECORDS SUMMARY | 2022-08-02 15:07 | XMS_ITS | Encounter Summary ---
:1995 Author Organization [place] Address [address] [place] [address]. 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 documented as of this encounter Plan of Treatment Upcoming Encounters Date Type Specialty Care Team Description 12/28/2022 Virtual Visit Endocrinology Merle Mccarthy MD [address] [place] [address] (Wo rk) documented as of this encounter Visit Diagnoses Not on filedocumented in this encounter Care Teams Dog Hair Clipper Relationship Specialty Start Date End Date Billie Guadarrama PCP - General 12/17/19 [facility] [address] [place] [address] Rocio Mccarthy MD Assigned Endocrinology 08/01/20 11/28/21 [address] [facility] 200 [place] [address] documented as of this encounter
--- OUTSIDE RECORDS SUMMARY | 2022-08-02 15:07 | XMS_ITS | Encounter Summary ---
:1995 Author Organization [place] Address [address] [place] [address]. [place] [address] Care Team Providers Name Role Phone Chiara Billie Primary Care Provider Rocio Mccarthy MD Unavailable Reason for Referral Diagnostic Imaging Ultrasound (Routine) - Closed Specialty Diagnoses / Procedures Referred By Contact Refer red To Contact Diagnoses related condition, antepartum Yoselin Velez Procedures [facility] [address] [place] [address] Referral ID Status Reason Start Date Expiration Date Visits Requ ested Visits Authorized [id number] Closed 04/30/2021 04/30/2022 1 1 Reason for Visit Diagnostic Imaging Ultrasound (Routine) - Closed Specialty Diagnoses / Procedures Referred By Contact Refer red To Contact Diagnoses related condition, antepartum Yoselin Velez Procedures [facility] [address] [place] [address] Referral ID Status Reason Start Date Expiration Date Visits Requ ested Visits Authorized [id number] Closed 04/30/2021 04/30/2022 1 1 Encounter Details Date Type Department Care Team Description 05/01/2021 Hospital Encounter [facility] Yoselin Velez [facility] [address] [place] [address] related Maternal Contag, Jorge Luis Kohler MD [address] [place], [place] [id number] condition, Medicine Center antepartum [place] [address] [place] [address] Social History Tobacco Use Types Packs/Day Years [...] Date Recorded 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 SYNTHROID 88 MCG Total dose 188 90 tablet 3 05/29/2020 08/02/2021 tabletIndications: mcg/day (take 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 documented in this encounter Results [facility] US Comprehensive Single (05/01/2021 2:07 PM CDT) Anatomical Region Laterality Modality Ultrasound Specimen (Source) Anatomical Collection Method Collection Time Re ceived Time Location / / Volume Laterality 05/01/2021 1:24 PM CDT Impressions 05/01/2021 3:11 PM CDT IMPRESSION Growth parameters and estimated we ight were consistent with growth restriction (primarily secondary to short femur). The aortic arch was not adequately visualized. The anatomy appeared otherwise nor mal. Normal amniotic fluid volume. Normal umbilical artery doppler flow studies. Narrative 05/01/2021 3:11 PM CDT Comprehensive Pat. Name: TAYLOR GARCIA Study Date: 05/01/2021 1:24pm Pat. 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 V iew: Sufficient Sebastian . Number of fetuses: 1 DATING ? Date ?Details ?Gest. age ?MILES LMP ?10/09/2020 ? Cycle: regular cycle ?29 w + 1 d ? 07/16/2021 Prior assessment ? CRL, GA: 7 w + 3 d ?28 w + 4 d ? 07/20/2021 U/S ? 05/01/2021 ? based upon AC, BPD, Femur, HC ? 28 w + 2 d ? 07/22/2021 Assigned dating ?Dating performed on 05/01/2021, based on the LMP ?29 w + 1 d ? 07/16/2021 GENERAL EVALUATION Cardiac activity present. FHR 154 bpm. movements present. Presentation cephalic. Placenta Placental site: posterior, no p revia > 2 cm from internal os . Umbilical cord 3 vessel cord. Amniotic fluid Amount of AF: normal. MVP 6.5 cm. BIOMETRY Main Biometry: BPD ?73.3 ?mm ? 29w 3d ?Hadlock OFD ?93.5 ?mm ? 27w 4d ?Nicolaides HC ?266.6 ?mm ?29w 0d ?Hadlock Cerebellum tr ?33.4 ? mm ?29w 1d ?Nicolaides AC ?242.4 ?mm ?28w 4d ?25% ?Hadlock Femur ?48.5 ? mm ?26w 2d ?Hadlock Humerus ?47.7 ?mm ? 28w 0d ?Kevin Weight Calculation: EFW ? 1,139 ?g ? 8% ? Hadlock EFW (lb,oz) ? 2 lb 8 ?oz EFW by ?Hadlock ([id number]) Head / Face / Neck Biometry: Luncheonette Manager ? 6.5 ? mm CM ?4.6 ? mm Nasal bone ? 10.2 ? mm ANATOMY The following structures appear normal: Head / Neck ? Cranium. Head size. Head shape. Lateral ventricles. Choroid plexus. Midline falx. Cavum septi pellucidi. Cerebellum. Cisterna magna. ? Parenchyma. Thalami. Vermis. ? Neck. Nuchal fold. Face ? Lips. Profile. Nose. Maxilla. Mandible. Orbits. Lens. Heart / Thorax ?4-chamber view. RVOT view. LVOT view. Situs. Bicaval view. Ductal arch view. Superior vena cava. Inferior vena cava. 3-vessel view. ? 8-yxculn-zmmqkit view. Cardiac position. Cardiac size. Cardiac rhythm. ? Right lung. Left lung. Diaphragm. Abdomen ? Abdominal wall. Cord insertion. Stomach. Kidneys. Bladder. Liver. Bowel. Genitals. Spine ?Cervical spine. Thoracic spine. Lumbar spine. Sacral spine. Extremities / Skeleton ?Rig ht arm. Right hand. Left arm. Left hand. Right leg. Right foot. Left leg. Left foot. The following structures could not be ad equately visualized: Heart / Thorax ?Aortic arch view. Gender: male. DOPPLER Umbilical Artery: normal PI ?1.06 ?66% ?Radha HR ?148 ? bpm MATERNAL STRUCTURES Cervix ?Visualized ? Appearance: Appears Closed ? Approach - Transabdominal: Cervical length 15.0 mm Right Ovary ?Visualized Left Ovary ?Visualized NON STRESS TEST NST interpretation: reactive. Test durat ion 20 min. Baseline FHR 145 bpm. Baseline variability: moderate. Accelerations: present. Decelerations: absent. Uterine activity: absent. Acoustic stimulation: no RECOMMENDATION We discussed the findings on today's ult rasound with the patient. The EFW today is less than 10%tile. This is primarily due to short femur. The FOB also has short stature. Despite this we do recommend the following for FGR monitorin) UAR doppler, amniotic fluid volume an d NST weekly at your site if able. If unable to assess UAR doppler please contact our office. 2) Reassess growth at [facility] in 3 wee ks (scheduled at [facility]). The patient was also referred for a shor t cervix. The use of cervix length ultrasound to predict risk for PTD is not as beneficial after 24-28 weeks due to shortening seen in normal pregnancies. The patient has no p reterm labor symptoms today and the cervix was not reassessed today. We do recommend to assess the patient clinically with digital exam and FFN (if available) if s he has PTL symptoms in the future. Return to primary provider for continued care.. Thank-you for the opportunity to partici clint in the care of this patient. If you have questions regarding today's evaluation or if we can be of further service, please contact the [facility]. anomalies may be present but not detected Procedure Note Anthony Shaffer MD - 05/01/2021Forma tting of this note might be different from the original. Comprehensive Pat. Name:Akosua GARCIA Date: 1:24pm Pat. NO: [id number] :YOSELIN PATRICK HAMILTON [facility]NOEM[facility] Olvera :1995Age:25 INDICATION Short cervix on outside ultrasound METHOD Transabdominal ultrasound examination. V iew: Sufficient Sebastian . Number of fetuses: 1 DATING Date Details Gest. age MILES LMP 10/09/2020 Cycle: regular cycle 29 w + 1 d 07/16/2021 Prior assessment 12/04/2020 CRL, GA: 7 w + 3 d 28 w + 4 d 07/20/2021 U/S 05/01/2021 based upon AC, BPD, Femur, HC 28 w + 2 d 07/22/2021 Assigned dating Dating performed on 04/10, based on the LMP 29 w + 1 d 07/16/2021 GENERAL EVALUATION Cardiac activity present. FHR 154 bpm. movements present. Presentation cephalic. Placenta Placental site: posterior, no p revia > 2 cm from internal os . Umbilical cord 3 vessel cord. Amniotic fluid Amount of AF: normal. MVP 6.5 cm. BIOMETRY Main Biometry: BPD 73.3 mm 29w 3d Hadlock OFD 93.5 mm 27w 4d Nicolaides HC 266.6 mm 29w 0d Hadlock Cerebellum tr 33.4 mm 29w 1d Nicolaides AC 242.4 mm 28w 4d 25% Hadlock Femur 48.5 mm 26w 2d Hadlock Humerus 47.7 mm 28w 0d Kevin Weight Calculation: EFW 1,139 g 8% Hadlock EFW (lb,oz) 2 lb 8 oz EFW by Hadlock ([id number]) Head / Face / Neck Biometry: Luncheonette Manager 6.5 mm CM 4.6 mm Nasal bone 10.2 mm ANATOMY The following structures appear normal: Head / Neck Cranium. Head size. Head sha pe. Lateral ventricles. Choroid plexus. Midline falx. Cavum septi pellucidi. Cerebellum. Cisterna magna. Parenchyma. Thalami. Vermis. Neck. Nuchal fold. Face Lips. Profile. Nose. Maxilla. Mamta ble. Orbits. Lens. Heart / Thorax 4-chamber view. RVOT view . LVOT view. Situs. Bicaval view. Ductal arch view. Superior vena cava. Inferior vena cava. 3-vessel view. 9-gvoovm-ityazxq view. Cardiac position . Cardiac size. Cardiac rhythm. Right lung. Left lung. Diaphragm. Abdomen Abdominal wall. Cord insertion. Stomach. Kidneys. Bladder. Liver. Bowel. Genitals. Spine Cervical spine. Thoracic spine. Juju mbar spine. Sacral spine. Extremities / Skeleton Right arm. Right hand. Left arm. Left hand. Right leg. Right foot. Left leg. Left foot. The following structures could not be ad equately visualized: Heart / Thorax Aortic arch view. Gender: male. DOPPLER Umbilical Artery: normal PI 1.06 66% Radha HR 148 bpm MATERNAL STRUCTURES Cervix Visualized Appearance: Appears Closed Approach - Transabdominal: Cervical roxie gth 15.0 mm Right Ovary Visualized Left Ovary Visualized NON STRESS TEST NST interpretation: reactive. Test durat ion 20 min. Baseline FHR 145 bpm. Baseline variability: moderate. Accelerations: present. Decelerations: absent. Uterine activity: absent. Acoustic stimulation: no RECOMMENDATION We discussed the findings on today's ult rasound with the patient. The EFW today is less than 10%tile. This is primarily due to short femur. The FOB also has short stature. Despite this we do recommend the following for FGR monitorin) UAR doppler, amniotic fluid volume an d NST weekly at your site if able. If unable to assess UAR doppler please contact our office. 2) Reassess growth at [facility] in 3 wee ks (scheduled at [facility]). The patient was also referred for a shor t cervix. The use of cervix length ultrasound to predict risk for PTD is not as beneficial after 24-28 weeks due to shortening seen in normal pregnancies. The patient has no p reterm labor symptoms today and the cervix was not reassessed today. We do recommend to assess the patient clinically with digital exam and FFN (if available) if s he has PTL symptoms in the future. Return to primary provider for continued care.. Thank-you for the opportunity to partici jaramillo in the care of this patient. If you have questions regarding today's evaluation or if we can be of further service, please contact the [facility]. anomalies may be present but not detected IMPRESSION Growth parameters and estimated we ight were consistent with growth restriction (primarily secondary to short femur). The aortic arch was not adequately visualized. The anatomy appeared otherwise nor mal. Normal amniotic fluid volume. Normal umbilical artery doppler flow studies. Yoselin Hamilton [facility] US ORDERABLES documented in this encounter Visit Diagnoses Diagnosis related condition, antepartum documented in this encounter Care Teams Camera Repair Technician Relationship Specialty Start Date End Date Billie Guadarrama PCP - General 12/17/19 [facility] [address] [place] [address] Rocio Mccarthy MD Assigned Endocrinology 08/01/20 11/28/[address] [place] [address] documented as of this encounter
--- OUTSIDE RECORDS SUMMARY | 2022-08-02 15:07 | XMS_ITS | Encounter Summary ---
:1995 Author Organization [place] Address [address] [place] [address]. [place] [address] Care Team Providers Name Role Phone Billie Guadarrama Primary Care Provider Rocio Mccarthy MD Unavailable Reason for Referral Consultation (Routine) - Closed Specialty Diagnoses / Procedures Referred By Contact Refer red To Contact Diagnoses affected by growth restriction Anthony Shaffer MD [address] [place], [place] [address] Referral ID Status Reason Start Date Expiration Date Visits Requ ested Visits Authorized [id number] Closed 05/01/2021 05/01/2022 1 1 Diagnostic Imaging Ultrasound (Routine) - Closed Specialty Diagnoses / Procedures Referred By Contact Refer red To Contact Diagnoses affected by growth restriction Anthony Shaffer MD Procedures [facility] US Comprehensive Single F/U [address] [place], [place] [address] Referral ID Status Reason Start Date Expiration Date Visits Requ ested Visits Authorized [id number] Closed 05/01/2021 05/01/2022 1 1 Reason for Visit Reason Comments Ultrasound L2- short cervix on outside u/s Encounter Details Date Type Department Care Team Description 05/01/2021 Office Visit [facility] Helena Velez [facility] [address] [place] [address] affected by growth restr iction (Primary Dx); Maternal ContagJorge Luis MD [address] [place] [address] Short cervix affecting ; Medicine Center Anthony Shaffer MD [address] [place] [address] Gestational diabetes mellitus (GDM) in t hird trimester controlled on oral hypoglycemic drug [place] [address] [place], [place] [address] Social History Tobacco Use Types Packs/Day Years [...] at Date Recorded 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 documented as of this encounter Last Filed Vital Signs Vital Sign Reading Time Taken Comments Blood Pressure 120/67 05/01/2021 2:37 PM CDT Pulse 70 05/01/2021 2:37 PM CDT Temperature - - Respiratory Rate - - Oxygen Saturation - - Inhaled Oxygen Concentration - - Weight - - Height - - Body Mass Index - - documented in this encounter Progress Notes Anthony Shaffer MD - 05/01/2021 2:00 PM CDT Please see Imaging tab under Chart Review for details of today's US at the [facility]. Anthony Shaffer MD Maternal- Medicine documented in this encounter Nursing Notes Delisa Palmer, RN - 05/01/2021 2:00 PM CDT NST Performed due to FGR. reviewed efm tracing. See NST/BPP Doc Flowsheet tab. documented in this encounter Plan of Treatment Upcoming Encounters Date Type Specialty Care Team Description 12/28/2022 Virtual Visit Endocrinology Merle Mccarthy MD [address] [place] [address] (Wo rk) Scheduled Orders Name Type Priority Associated Diagnoses Order S chedule Nonstress Test OB Routine affected b y Expected: 05/01/2021 (MFM Order Only} growth restriction (Approximate), Expires: 05/01/2022 Nonstress Test OB Routine affected b y 1 Occurrences starting (MFM Order Only} growth restriction 05/01/2021 until 05/01/2022 Scheduled Referrals Name Type Priority Associated Diagnoses Order S chedule [facility] Office Visit Referral Routine affected by fe desiree Expected: 05/22/2021 growth restriction (Approxim ate), Expires: 05/01/2022 documented as of this encounter Results [facility] US Comprehensive Single F/U (05/26/2021 10:57 AM CDT) Anatomical Region Laterality Modality Ultrasound Specimen (Source) Anatomical Collection Method Collection Time Re ceived Time Location / / Volume Laterality 05/26/2021 10:34 AM CDT Impressions 05/26/2021 11:02 AM CDT IMPRESSION 1) Sebastian intrauterine at 3 2w 5d gestational age. 2) None of the anomalies commonly detect ed by ultrasound were evident in the limited anatomic survey as described above. 3) Growth parameters and estimated weight were consistent with established dates. 4) The amniotic fluid volume appeared no rmal. 5) The BPP is 05/17. Narrative 05/26/2021 11:02 AM CDT Comp Follow Up Pat. Name: TAYLOR GARCIA Study Date: 05/26/2021 10:34am Pat. NO: [id number] Referring ??: VELMA MCNEIL Site: [facility] Mechanic Marine Engine: Martine Mlian RDMS : 1995 Age: 25 INDICATION growth restriction, Gestational di abetes mellitus. METHOD Transabdominal ultrasound examination. V iew: Sufficient. Sebastian . Number of fetuses: 1 DATING ? Date ?Details ?Gest. age ?MILES LMP ?10/09/2020 ? Cycle: regular cycle ?32 w + 5 d ? 07/16/2021 Prior assessment ? 2/ ? CRL, GA: 7 w + 3 d ?32 w + 1 d ? 07/20/2021 U/S ? 05/26/2021 ? based upon AC, BPD, Femur, HC ? 32 w + 1 d ? 07/20/2021 Assigned dating ?Dating performed on 05/01/2021, based on the LMP ?32 w + 5 d ? 07/16/2021 GENERAL EVALUATION Cardiac activity present. FHR 134 bpm. movements present. Presentation cephalic. Placenta Posterior, No Previa, > 2 cm fr om internal os. Umbilical cord 3 vessel cord. Amniotic fluid Amount of AF: normal amou nt. MVP 5.0 cm. BIOMETRY Main Biometry: BPD ?78.9 ?mm ? 31w 5d ?Hadlock OFD ?100.5 ?mm ? 29w 4d ? Nicolaides HC ?295.8 ?mm ?32w 5d ?Hadlock Cerebellum tr ?44.7 ? mm ?38w 5d ?Nicolaides AC ?286.2 ?mm ?32w 4d ?48% ?Hadlock Femur ?61.1 ? mm ?31w 5d ?Hadlock Weight Calculation: EFW ? 1,942 ?g ? 28% ?Hadlock EFW (lb,oz) ? 4 lb 5 ?oz EFW by ?Hadlock ([id number]) Head / Face / Neck Biometry: Road Conductor ? 2.8 ? mm CM ?7.2 ? mm ANATOMY The following structures appear normal: Head / Neck ? Cranium. Head size. Head shape. Lateral ventricles. Midline falx. Cerebellum. Cisterna magna. Thalami. Face ? Profile. Nose. Heart / Thorax ?4-chamber view. RVOT view. LVOT view. ? Diaphragm. Abdomen ? Stomach. Kidneys. Bladder. Spine ?Cervical spine. Thoracic spine. Lumbar spine. Sacral spine. The following structures were documented previously: Head / Neck ? Cavum septi pellucidi. Face ? Lips. Heart / Thorax ?1-uzlljy-qlcmvef view. Gender: male. BIOPHYSICAL PROFILE 2: breathing movements 2: Gross body movements 2: tone 2: Amniotic fluid volume 05/17 Biophysical profile score Interpretation: normal MATERNAL STRUCTURES Cervix ?Suboptimal Right Ovary ?Not examined Left Ovary ?Not examined RECOMMENDATION Thank-you for referring your patient to assess growth. I discussed the findings on today's ultr asound with the patient. We reviewed the fetus is no longer growth restricted. Taylor should continue with twice weekly BPP due to GDM on medication. Growth should be r eassessed in 3-4 weeks, and I anticipate this will be done in your office. If you prefer this to be done in our office, please call to schedule. Return to primary provider for continued care. If you have questions regarding today's evaluation or if we can be of further service, please contact the [facility]. anomalies may be present but not detected Procedure Note Cecille Marsh MD - 05/26/2021 Comp Follow Up Pat. Name:Akosua GARCIA Date: 10:34am Pat. NO: [id number] MD:YOSELIN Henderson [facility]Martine Milan RD MS :1995Age:25 INDICATION growth restriction, Gestational di abetes mellitus. METHOD Transabdominal ultrasound examination. V iew: Sufficient. Sebastian . Number of fetuses: 1 DATING Date Details Gest. age MILES LMP 10/09/2020 Cycle: regular cycle 32 w + 5 d 07/16/2021 Prior assessment 12/04/2020 CRL, GA: 7 w + 3 d 32 w + 1 d 07/20/2021 U/S 05/26/2021 based upon AC, BPD, Femur, HC 32 w + 1 d 07/20/2021 Assigned dating Dating performed on 04/10, based on the LMP 32 w + 5 d 07/16/2021 GENERAL EVALUATION Cardiac activity present. FHR 134 bpm. movements present. Presentation cephalic. Placenta Posterior, No Previa, > 2 cm fr om internal os. Umbilical cord 3 vessel cord. Amniotic fluid Amount of AF: normal amou nt. MVP 5.0 cm. BIOMETRY Main Biometry: BPD 78.9 mm 31w 5d Hadlock OFD 100.5 mm 29w 4d Nicolaides HC 295.8 mm 32w 5d Hadlock Cerebellum tr 44.7 mm 38w 5d Nicolaides AC 286.2 mm 32w 4d 48% Hadlock Femur 61.1 mm 31w 5d Hadlock Weight Calculation: EFW 1,942 g 28% Hadlock EFW (lb,oz) 4 lb 5 oz EFW by Hadlock ([id number]) Head / Face / Neck Biometry: Road Conductor 2.8 mm CM 7.2 mm ANATOMY The following structures appear normal: Head / Neck Cranium. Head size. Head sha pe. Lateral ventricles. Midline falx. Cerebellum. Cisterna magna. Thalami. Face Profile. Nose. Heart / Thorax 4-chamber view. RVOT view . LVOT view. Diaphragm. Abdomen Stomach. Kidneys. Bladder. Spine Cervical spine. Thoracic spine. Juju mbar spine. Sacral spine. The following structures were documented previously: Head / Neck Cavum septi pellucidi. Face Lips. Heart / Thorax 3-jedejs-sypkzhy view. Gender: male. BIOPHYSICAL PROFILE 2: breathing movements 2: Gross body movements 2: tone 2: Amniotic fluid volume 05/17 Biophysical profile score Interpretation: normal MATERNAL STRUCTURES Cervix Suboptimal Right Ovary Not examined Left Ovary Not examined RECOMMENDATION Thank-you for referring your patient to assess growth. I discussed the findings on today's ultr asound with the patient. We reviewed the fetus is no longer growth restricted. Taylor should continue with twice weekly BPP due to GDM on medication. Growth should be r eassessed in 3-4 weeks, and I anticipate this will be done in your office. If you prefer this to be done in our office, please call to schedule. Return to primary provider for continued care. If you have questions regarding today's evaluation or if we can be of further service, please contact the [facility]. anomalies may be present but not detected IMPRESSION 1) Sebastian intrauterine at 3 2w 5d gestational age. 2) None of the anomalies commonly detect ed by ultrasound were evident in the limited anatomic survey as described above. 3) Growth parameters and estimated weight were consistent with established dates. 4) The amniotic fluid volume appeared no rmal. 5) The BPP is 05/17. Anthony Shaffer MD [facility] US ORDERABLES documented in this encounter Visit Diagnoses Diagnosis affected by growth restr iction - Primary Short cervix affecting Cervical shortening, unspecified as to e pisode of care or not applicable Gestational diabetes mellitus (GDM) in t hird trimester controlled on oral hypoglycemic drug affected by growth restr iction documented in this encounter Care Teams Lamination Operator Relationship Specialty Start Date End Date Billie Guadarrama PCP - General 12/17/19 [facility] [address] [place] [address] Rocio Mccarthy MD Assigned Endocrinology 08/01/20 11/28/[address] [place] [address] documented as of this encounter
--- OUTSIDE RECORDS SUMMARY | 2022-08-02 15:07 | XMS_ITS | Encounter Summary ---
:1995 Author Organization [facility] Address [address] [place] [address]. 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 Diagnoses Encounter for triage in patient labor Encounter for triage in patient labor [facility] [address] [place] [phone] Phone: Fax: Referral ID Status Reason Start Date Expiration Date Visits Requ ested Visits Authorized [id number] 1 1 Encounter Details Date Type Department Care Team Description 05/28/2021 - Hospital Encounter [facility] Neli Muro MD [address] [place] [address] [id number] 05/31/2021 [facility] Birthplace Laury Waters MD [place] [facility] [address] [address] [place] [id number] [address] Jaimie Monahan MD [facility] [place] [address] [place] [address] Social History Tobacco Use Types [...] at Date Recorded Female 10/05/2020 9:54 PM ISSUER COVID-19 Exposure Response Date Recorded In the last month, have you been in contact with No / Unsure 05/25/2021 5:45 PM CDT someone who was confirmed or suspected to have Coronavirus / COVID-19? documented as of this encounter Last Filed Vital Signs Vital Sign Reading Time Taken Comments Blood Pressure 110/60 05/31/2021 8:28 AM CDT Pulse - - Temperature 36.8 ??C (98.3 ??F) 05/31/2021 8:28 AM CDT Respiratory Rate 16 05/31/2021 8:28 AM CDT Oxygen Saturation - - Inhaled Oxygen Concentration - - Weight - - Height - - Body Mass Index - - documented in this encounter Discharge Summaries Laury Waters MD - 05/31/2021 1:09 PM CDT [facility] Discharge Summary Altagracia Garcia Age: [age] year old Date of : 1995 Date of Admission: 05/28/2021 Date of Discharge:: 05/31/2021 Admitting Physician: Jaimie Gutiérrez MD Discharge Physician: Laury Waters MD [place] clinic: [facility] Diagnoses: Encounter for triage in patient [Z36.89] labor [O60.00] Discharge Diagnosis: labor Intrauterine at 33w3 weeks gestation Procedures: Procedure(s): none No procedures performed during this admission Medications Prior to Admission: Medications Prior to Admission Medication Sig Dispense Refill Last Dose ??? aspirin (ASA) 81 MG chewable tablet Take 81 mg by mouth daily 05/28/2021 at Unknown time ??? magnesium 250 MG tablet Take 1 tablet by mouth daily ??? metFORMIN (GLUCOPHAGE) 1000 MG tablet Take 1,000 mg by mouth 2 times daily (with meals) 05/27/2021 at Unknown time ??? NIFEdipine (PROCARDIA) 20 MG capsule Take 1 capsule (20 mg) by mouth every 8 hours for 4 doses 4capsule 0 05/28/2021 at Unknown time ??? Vit-Fe Fumarate-FA ( VITAMIN PO) Take by mouth daily 05/28/2021 at Unknown time ??? SYNTHROID 100 MCG tablet Total dose 188 mcg/day (take 100+88) 90 tablet 3 05/28/2021 at Unknown time ??? SYNTHROID 88 MCG tablet Total dose 188 mcg/day (take 100+88) 90 tablet 3 05/28/2021 at Unknown time ??? venlafaxine (EFFEXOR-ER) 225 MG 24 hr tablet Take 225 mg by mouth daily 05/28/2021 at Unknown time Discharge Medications: Current Discharge Medication List CONTINUE these medications which have NOT CHANGED Details aspirin (ASA) 81 MG chewable tablet Take 81 mg by mouth daily magnesium 250 MG tablet Take 1 tablet by mouth daily metFORMIN (GLUCOPHAGE) 1000 MG tablet Take 1,000 mg by mouth 2 times daily (with meals) NIFEdipine (PROCARDIA) 20 MG capsule Take 1 capsule (20 mg) by mouth every 8 hours for 4 doses Qty: 4 capsule, Refills: 0 Associated Diagnoses: contractions Vit-Fe Fumarate-FA ( VITAMIN PO) Take by mouth daily !! SYNTHROID 100 MCG tablet Total dose 188 mcg/day (take 100+88) Qty: 90 tablet, Refills: 3 Comments: Dispense SYNTHROID only (not generic). 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 SYNTHROID 88 MCG tablet Total dose 188 mcg/day (take 100+88) Qty: 90 tablet, Refills: 3 Comments: Dispense SYNTHROID only (not generic). 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 - Potential duplicate medications found. Please discuss with provider. Consultations: No consultations were requested during this admission Brief History of Labor: Ms. Garcia ??was initially here as a transfer from [facility], with contractions.??She states that these started 05/24, as intermittent cramps in lower abdomen, and pressure below theumbilicus. On arrival at that facility, she was found to be 1cm dilated. One hour later, she had progressed to 2cm, with less pressure, but continued cramping. She was begun on nifedipine and betamethasone, and transferred to [facility]. M ultrasound demonstrated resolved IUGR, no placenta previa, normal ASH. Her course of betamethasone was completed, and she was discharged to home with a remaining 24 hours of procardia. She returned to the hospital two days later, having made cervical change from 2 to 3 cm. She was admitted for observation, and gradually made change to 570/--1, at which point the contractions resolved. She remained stable, without further cramping or pressure, for 36 hours, at which point she was allowed to discharge home. Hospital Course: As above. hemoglobin: Hemoglobin Date Value Ref Range Status 05/28/2021 10.8 (L) 11.7 - 15.7 g/dL Final Discharge Instructions and Follow-Up: Discharge diet: diabetic Discharge activity: Bedrest Discharge follow-up: Follow up with primary care provider in 2-3 days Wound care: n/a Discharge Disposition: Discharged to home Attestation: Amount of time performed on this discharge summary: 20 minutes. Laury Waters MD documented in this encounter Discharge Instructions Discharge InstructionsCarmen Patterson RN - 05/31/2021 12:00 PM CDT Discharge Instruction for Undelivered Patients You were seen for: Labor Assessment We Consulted: Dr. Muro/Dr. Gutiérrez/Dr. Waters You had (Test or Medicine): & uterine monitoring, IV fluids, po medication/IV hydration Diet: Drink 8 to 12 glasses of liquids (milk, juice, water) every day. Activity: Stay on bed rest or partial bed rest. This means only up for bath room use and to go to clinic appointments. Call your provider if you notice: Swelling [...] vaginal discharge (note the color and amount) Other: Follow-up: As scheduled in the clinic AttachmentsThe following attachments cannot be sent through Care Everywhere. Labor, Understanding (Peruvian)documented in this encounter Medications at Time of [...] MCG Total dose 188 90 tablet 3 05/29/202005/11 tabletIndications: mcg/day (take Hypothyroidism due to 100+88) Duane's thyroiditis venlafaxine (EFFEXOR-ER) Take 225 mg by 0 04/19/2022 225 MG 24 hr tablet mouth daily documented as of this encounter Progress Notes Laury Waters MD - 05/31/2021 1:02 PM CDT LABOR NOTE Subjective: Reports no further cramping or kim, even after ambulation on the walsh. Baby active. No warning signs. Discussed case with Dr. Marsh Herminio, and benefits of discharge recommended. Couple comfortable with this, after discussion of when to call. Objective: BP 110/60 Temp 98.3 ??F (36.8 ??C) (Oral) Resp 16 LMP 10/09/2020 FHT: category 1 Avery: mild irritability SVE: nor repeated, last 4-5//-3 A/P Altagracia Garcia is a 25 year old at 33w2d here with arrested labor at 5 cm. ?? - continue expectant management - s/p BMZ 05/25- - no further tocolysis - Avery monitoring q shift or if symptoms arise - GBS neg - Covid neg - Ucx - neg - FHT Cat I - continue monitoring ?? GDMA2 - continue BS checks q 4 pts ?? Thyroid disorder - continue levothyroxine ?? ZAINAB/MDD - continue Venlafaxine ?? Obesity - SCDs while in bed - if labors, would recommend lovenox ppx ?? Rubella/varicella non-immune - offer vaccines ?? Discharge to home -limited activity -sees [facility] for routine care tomorrow Laury Waters MD, MD Jaimie Gutiérrez MD - 05/30/2021 9:32 AM CDT [employer] FISHING CAPTAIN PROGRESS NOTE S. Pt states she is doing well overall. Currently not feeling pelvic pressure or contractions. +FM BP 117/66 Temp 98.3 ??F (36.8 ??C) (Oral) Resp 16 LMP 10/09/2020 Avery quiet overall FHT 145 bpm, mod, a+, d- SVE deferred A/P Altagracia Garcia is a 25 year old at 33w2d here with arrested labor at 5 cm. - continue expectant management - s/p BMZ - no further tocolysis - Avery monitoring q shift or if symptoms arise - GBS neg - Covid neg - Ucx - neg - FHT Cat I - continue monitoring GDMA2 - continue BS checks q 4 pts Thyroid disorder - continue levothyroxine ZAINAB/MDD - continue Venlafaxine Obesity - SCDs while in bed - if labors, would recommend lovenox ppx ?? Rubella/varicella non-immune - offer vaccines ?? Plan: continue expectant management. If stable for > 24 hrs will consider potential outpatient management. However pt lives 45 min away. Will need to further discuss plan of care. Dr. Pearl Gutiérrez [phone] Laury Waters MD - 05/29/2021 7:30 PM CDT LABOR NOTE Subjective: Reports more comfort now. Occasional back discomfort, some pelvic pressure. Objective: BP 105/55 Temp 98.4 ??F (36.9 ??C) Resp 16 LMP 10/09/2020 FHT: category 1 Avery: q 5-7 min SVE: not repeated Assessment and Plan: ?? Ms. Altagracia Garcia is a 25 year old at 33w1d by??LMP c/w 7w3d US, here??for labor. ?? Labor:? -will change to inpt status, expectant management ??-??s/p betamethasone 05/25-05/26 ?- no tocolysis ?- Monitoring: external, ok to switch to Qshift NST and if feeling contractions?- GBS neg ?- Covid neg, UCx in process?- vistaril PRN for sleep ?? GDMA2 ?- continue metformin ?- BG below goal, continue 1hr PP and fasting BG ?? Thyroid disorder - home dose of levothyroxine ordered ?? ZAINAB/MDD - home dose of venlafaxine ordered ?? Obesity - SCDs while in bed - if labors, would recommend lovenox ppx ?? Rubella/varicella non-immune - offer vaccines ? Laury Waters MD, MD Laury Waters MD Laury Waters MD - 05/29/2021 3:12 PM CDT LABOR NOTE Subjective: Reports increased back pain with contractions. Objective: BP 114/60 Temp 97.9 ??F (36.6 ??C) Resp 19 LMP 10/09/2020 FHT: 150 with moderate variability and accelerations, no decelerations Avery: q 4-5 min SVE: 4.5/80/-1 Assessment and Plan: Ms. Altagracia Garcia is a 25 year old at 33w1d by??LMP c/w 7w3d US, here??for labor. ?? Labor:? -will change to inpt status, expectant management ??-??s/p betamethasone 05/25-05/26 ?- no tocolysis ?- Monitoring: external, ok to switch to Qshift NST and if feeling contractions?- GBS neg ?- Covid neg, UCx in process?- vistaril PRN for sleep ?? GDMA2 ?- continue metformin ?- BG below goal, continue 1hr PP and fasting BG ?? Thyroid disorder - home dose of levothyroxine ordered ?? ZAINAB/MDD - home dose of venlafaxine ordered ?? Obesity - SCDs while in bed - if labors, would recommend lovenox ppx ?? Rubella/varicella non-immune - offer vaccines ?? Laury Waters MD, MD Laury Waters MD - 05/29/2021 2:32 PM CDT LABOR NOTE Subjective: Reports increased discomfort and cramping. It feels like something needs to pop. Objective: BP 114/60 Temp 97.9 ??F (36.6 ??C) Resp 19 LMP 10/09/2020 FHT: category 1, 150 with moderate variability and accelerations, no decelerations Avery: q 4-5 min SVE: 4.5/80/-3 per inter com servicer and Plan: Ms. Altagracia Garcia is a 25 year old at 33w1d by??LMP c/w 7w3d US, here??for labor. ?? Labor:?-??s/p betamethasone 05/25-05/26 ?- no tocolysis ?- Monitoring: external, ok to switch to Qshift NST and if feeling contractions?- GBS neg ?- Covid neg, UCx in process?- vistaril PRN for sleep ?? GDMA2 ?- continue metformin ?- BG below goal, continue 1hr PP and fasting BG ?? Thyroid disorder - home dose of levothyroxine ordered ?? ZAINAB/MDD - home dose of venlafaxine ordered ?? Obesity - SCDs while in bed - if labors, would recommend lovenox ppx ?? Rubella/varicella non-immune - offer vaccines ?? Laury Waters MD, MD Laury Waters MD - 05/29/2021 12:20 PM CDT [facility] OB Note ?? S: Altagracia Garcia feels well this morning. Was able to sleep last night. Pain control adequate. Back pain and cramping are resolved. Voiding. Mood good. ?? O: Vitals were reviewed BP Readings from Last 1 Encounters: 05/29/21 114/60 Pulse Readings from Last 1 Encounters: 05/01/21 70 Wt Readings from Last 1 Encounters: 03/28/21 115.7 kg (255 lb) Ht Readings from Last 1 Encounters: 03/28/21 1.651 m (5' 5) Estimated body mass index is 42.43 kg/m?? as calculated from the following: Height as of 03/28/21: 1.651 m (5' 5). Weight as of 03/28/21: 115.7 kg (255 lb). Temp Readings from Last 1 Encounters: 05/29/21 97.9 ??F (36.6 ??C) ? General: healthy, alert and no distress Abd: soft, gravid, nontender, fundus firm Legs: Non-tender, 1+ pitting edema EFM: category 1 tracing, no contractions ?? No results found for: RH Rubella: immune ?? A/P: Ms. Altagracia Garcia is a 25 year old at 33w1d by LMP c/w 7w3d US, here for labor. ?? Labor: - s/p betamethasone 05/25-05/26 - no tocolysis - Monitoring: external, ok to switch to Qshift NST and if feeling contractions - GBS neg - Covid neg, UCx in process - vistaril PRN for sleep ?? GDMA2 - continue metformin - BG below goal, continue 1hr PP and fasting BG ?? Thyroid disorder - home dose of levothyroxine ordered ?? ZAINAB/MDD - home dose of venlafaxine ordered ?? Obesity - SCDs while in bed - if labors, would recommend lovenox ppx ?? Rubella/varicella non-immune - offer vaccines ?? Laury Waters MD Neli Muro MD - 05/28/2021 7:35 PM CDT M [facility] Labor Progress Note S: Patient having some cramping and back pain. Unchanged from earlier. O: Well appearing, sitting up in bed FHT: Baseline 130, moderate variability, accelerations present, no decelerations Avery: 0 contractions in 10 minutes A/P: Ms. Altagracia Garcia is a 25 year old at 33w0d by LMP c/w 7w3d US, here for labor. Labor: - s/p betamethasone 05/25-05/26 - no tocolysis - Monitoring: external, ok to switch to Qshift NST and if feeling contractions - GBS neg - Covid neg, UCx in process - vistaril PRN for sleep GDMA2 - continue metformin - BG below goal, continue 1hr PP and fasting BG Thyroid disorder - home dose of levothyroxine ordered for tomorrow AM ?? ZAINAB/MDD - home dose of venlafaxine ordered ?? Obesity - SCDs while in bed - if labors, would recommend lovenox ppx ?? Rubella/varicella non-immune - offer vaccines Neli Muro MD [facility] It Technical Architect 05/28/21 7:36 PM documented in this encounter H&P Notes Neli Muro MD - 05/28/2021 1:40 PM CDT M [facility] Labor and Delivery History and Physical Altagracia Garcia Age: [age] year old Date of : 1995 Date of Admission: 05/28/2021 Primary care provider: Billie Guadarrama HPI: Altagracia Garcia is a 25 year old at 33w0d by LMP c/w 7w3d US who presents with labor. She was admitted from 05/25/21-05/26/21 following a transfer from [facility] for contractions with cervical change. She was given betamethasone on 05/25-05/26 and nifedipine for tocolysis. She was discharged on 05/26/21 and her cervix was 2/50/-3 at that time. She presented today for a routine NST in [place] and noted that she had been cramping more than previously. Cervical check at that time was 3/90/-2. She was recommended to return to [facility] due to cervical change. She took herlast dose of nifedipine this AM. Notes irregular cramping that has been more intense since yesterday. Mucousy vaginal discharge without itching or odor. Her BG has been elevated since the betamethasonewith 2hr PP around 130s. She has continued with her metformin. Denies vaginal bleeding or loss of fluid. Occasional lower abdominal pain after urination, but no other signs/sx of UTI. Notes normal movement. Was feeling more shakey and clammy yesterday. Denies fever, cough, nausea, localizing signs of infection. notable for: 1. GDMA2 on metformin 2. Short cervix (1.7cm) 3. IUGR, resolved 4. Duane's thyroiditis 5. Depression/anxiety, stable on venlafaxine 6. Obesity, BMI 40 7. Rubella non-immune 8. Varicella non-immune ROS: Denies headache, vision changes, cough, dyspnea, chest pain, nausea, vomiting. history: OBSTETRIC HISTORY: OB History Para Term AB Living 2 0 0 0 1 0 SAB TAB Ectopic Multiple Live Births 0 0 0 0 0 # Outcome Date GA Lbr Vick/2nd Weight Sex Delivery Anes PTL Lv 2 Current 1 AB Labs: HIV neg B pos Rubella immune Hep B neg GBS Status: negative (05/25/21) Medication Prior to Admission Medications Prior to Admission Medication Sig Dispense Refill Last Dose ??? aspirin (ASA) 81 MG chewable tablet Take 81 mg by mouth daily 05/28/2021 at Unknown time ??? magnesium 250 MG tablet Take 1 tablet by mouth daily ??? metFORMIN (GLUCOPHAGE) 1000 MG tablet Take 1,000 mg by mouth 2 times daily (with meals) 05/27/2021 at Unknown time ??? NIFEdipine (PROCARDIA) 20 MG capsule Take 1 capsule (20 mg) by mouth every 8 hours for 4 doses 4capsule 0 05/28/2021 at Unknown time ??? Vit-Fe Fumarate-FA ( VITAMIN PO) Take by mouth daily 05/28/2021 at Unknown time ??? SYNTHROID 100 MCG tablet Total dose 188 mcg/day (take 100+88) 90 tablet 3 05/28/2021 at Unknown time ??? SYNTHROID 88 MCG tablet Total dose 188 mcg/day (take 100+88) 90 tablet 3 05/28/2021 at Unknown time ??? venlafaxine (EFFEXOR-ER) 225 MG 24 hr tablet Take 225 mg by mouth daily 05/28/2021 at Unknown time . Maternal Past Medical History: Past Medical History: Diagnosis Date ??? Depressive disorder anxiety & depression; takes medication - venlafaxine ??? Diabetes (H) 03/10/2021 GDM ??? Fibromyalgia 2012 ??? PCOS (polycystic ovarian syndrome) 2012 ??? Thyroid disease hashimotos; takes synthroid Maternal Past Surgical History: Past Surgical History: Procedure Laterality Date ??? ABDOMEN SURGERY 2015 galbladder removed ??? ENT SURGERY 2015 tonsils, adenoids, wisdom teeth ??? CONE SEWER SURGERY 2019 ovarian cyst removed ? ? HEAD & NECK SURGERY 2015 lymph node removal ??? NO HISTORY OF SURGERY abstract Family History: Family History Problem Relation Age of Onset ??? Obesity Mother ??? Depression Mother ??? Depression Father ??? Mental Illness Father ??? Substance Abuse Father ??? Thyroid Disease Paternal Grandmother ??? Family History Negative Other Physical Exam: Vitals: 05/28/21 1118 BP: 127/72 Resp: 18 Temp: 97.8 ??F (36.6 ??C) TempSrc: Oral Gen: Well appearing, no apparent distress Cardio: Regular rate Resp: Breathing comfortably on room air Abdomen: gravid, soft, nontender. Cervix: 3.5/80/-3, posterior, soft, bulging bag palpated, head ballotable Presentation:Cephalic by cervical exam Heart Rate Tracing: Baseline 140, moderate variability, accels present, no decels Tocometer: 0 contractions in 10 minutes Labs: Glucose 94 B pos, kathi neg WBC 11.6 Hgb 10.8 Plt 148 UA neg nitrite, LE moderate, UCx in process Glucose 94 Wet prep neg 05/25/21 Gc/ch neg 05/25/21 Imaging: MFM US done 05/26/21 GENERAL EVALUATION Cardiac activity present. FHR 134 bpm. movements present. Presentation cephalic. Placenta Posterior, No Previa, > 2 cm from internal os. Umbilical cord 3 vessel cord. Amniotic fluid Amount of AF: normal amount. MVP 5.0 cm. ? BIOMETRY Main Biometry: BPD 78.9 mm 31w 5d Hadlock OFD 100.5 mm 29w 4d Nicolaides HC 295.8 mm 32w 5d Hadlock Cerebellum tr 44.7 mm 38w 5d Nicolaides AC 286.2 mm 32w 4d 48% Hadlock Femur 61.1 mm 31w 5d Hadlock Weight Calculation: EFW 1,942 g 28% Hadlock EFW (lb,oz) 4 lb 5 oz EFW by Hadlock ([id number]) Head / Face / Neck Biometry: Fluorescent Solution Mixer 2.8 mm CM 7.2 mm ? ANATOMY The following structures appear normal: Head / Neck Cranium. Head size. Head shape. Lateral ventricles. Midline falx. Cerebellum. Cisterna magna. Thalami. Face Profile. Nose. Heart / Thorax 4-chamber view. RVOT view. LVOT view. Diaphragm. Abdomen Stomach. Kidneys. Bladder. Spine Cervical spine. Thoracic spine. Lumbar spine. Sacral spine. ?? The following structures were documented previously: Head / Neck Cavum septi pellucidi. Face Lips. Heart / Thorax [id number] view. ?? Gender: male. ? BIOPHYSICAL PROFILE 2: breathing movements 2: Gross body movements 2: tone 2: Amniotic fluid volume 05/17 Biophysical profile score Interpretation: normal ? MATERNAL STRUCTURES Cervix Suboptimal Right Ovary Not examined Left Ovary Not examined ? RECOMMENDATION Thank-you for referring your patient to assess growth. ?? I discussed the findings on today's ultrasound with the patient. We reviewed the fetus is no longer growth restricted. Altagracia should continue with twice weekly BPP due to GDM on medication. Growth should be reassessed in 3-4 weeks, and I anticipate this will be done in your office. If you prefer this to be done in our office, please call to schedule. ?? Return to primary provider for continued care. ?? If you have questions regarding today's evaluation or if we can be of further service, please contact the [facility]. ?? anomalies may be present but not detected ? IMPRESSION 1) Sebastian intrauterine at 32w 5d gestational age. 2) None of the anomalies commonly detected by ultrasound were evident in the limited anatomic survey as described above. 3) Growth parameters and estimated weight were consistent with established dates. 4) The amniotic fluid volume appeared normal. 5) The BPP is 05/17. Assessment: Altagracia Garcia is a 25 year old at 33w0d by LMP c/w 7w3d US admitted for labor. Previously admitted 05/25-05/26 with betamethasone given at that time. Cervix changed from 2/50/-3 on discharge to 3.5/80/-3 today. notable for: 1. GDMA2 on metformin 2. Short cervix (1.7cm) 3. IUGR, resolved 4. Duane's thyroiditis 5. Depression/anxiety, stable on venlafaxine 6. Obesity, BMI 40 7. Rubella non-immune 8. Varicella non-immune Plan: # labor - Already received course of betamethasone. >32 weeks and not a candidate for magnesium for neuroprotection. Tocolysis not indicated after betamethasone window. Discussed that we will observe for cervical change for at least 24 hours. If she does labor she is a candidate for a vaginal delivery. - Membranes: intact - UCx and Covid-19 swab in process, no other indication for infectious cause of PTL w/ recent negative wet prep and Gc/Ch - GBS neg; Antibiotics not indicated - Pain Control: Per patient request - Diet: Regular - FWB: Cat I tracing, reactive; cephalic by cervical exam; EFW 4.5# - Continuous Monitoring as able to, can switch to TID NST if stable this evening GDMA2 - BG normal thus far - FBG and 1 hr PP glucose ordered, sliding scale insulin for BG >140 at 1 hr PP - hold metformin during hospitalization Thyroid disorder - home dose of levothyroxine ordered for tomorrow AM ZAINAB/MDD - home dose of venlafaxine ordered Obesity - SCDs while in bed - if labors, would recommend lovenox ppx Rubella/varicella non-immune - offer vaccines Neli Muro MD documented in this encounter Consult Notes Barbara Underwood APRN ROOMING HOUSE KEEPER - 05/29/2021 8:11 PM CDTAssociated Order(s): NURSE PRACT IP CONSULT Images from the original note were not included. _ [facility] Neonatology Advanced Practice Antepartum Counseling Consult I was asked to provide antepartum counseling for Altagracia Garcia at the request of Laury Waters MD secondary to labor. Ms. Garcia is currently 33+1 weeks and has a hx significant for ZAINAB, GDM, fibromyalgia, PCOS with history of infertility, obesity and Hashimotos. Betamethasone was adminis tered on 05/25-05/26. Ms. Garcia, accompanied by the FOB Cleve and her mother, was counseled on theexpected hospital course, potential risks, and outcomes associated with an infant born at approximately 33 weeks gestation. The counseling included: morbidity, mortality, initial delivery room stabilization, respiratory course, lung development, RDS, hyperbilirubinemia, infection, intraventricular hemorrhage, nutrition, growth and development, and group home outcomes. Please feel free to call with anyadditional questions or concerns. Barbara Underwood APRN, ROOMING HOUSE [facility] Intensive Care Unit [facility] Floor Time (min): 5 Face to Face Time (min): 20 Total Time (minutes): 20 More than 50% of my time was spent in direct, face to face, antepartum counseling with the above patient. documented in this encounter Miscellaneous Notes Plan of Care - Carmen Patterson RN - 05/31/2021 1:00 PM CDT Pt discharged, education and questions discussed. Provider Notification - Carmen Patterson RN - 05/31/2021 11:55 AM CDT 05/31/21 1155 Provider Notification Provider Name/Title Dr. Waters Method of Notification At Bedside Pt was instructed to ambulate minimally in hallway, to monitor pt after. Pt ambulated in hallway, stated she felt crampy and tightness while ambulating, yet now since laying down doesn't feel anything.Per pt will be discharged home on strict bedrest. Provider Notification - Alia Smith RN - 05/31/2021 6:03 AM CDT 05/31/21 0602 Provider Notification Provider Name/Title Dr Gutiérrez Method of Notification In Department Request Evaluate - Remote Notification Reason Lab/Diagnostic Study Notified of BG of 160 after dinner, RN questioning need for provider notification parameters for blood sugars, no new orders given. Provider Notification - Alia Smith RN - 05/30/2021 7:39 PM CDT 05/30/211938 Provider Notification Provider Name/Title Dr Gutiérrez Method of Notification Phone Request Evaluate in Person Notification Reason Patient Request Request for prn sleep medication, notified Morphine/Vistaril worked well for patient last night. TORB for Vistaril 50-100 mg po prn at bedtime for sleep. Provider Notification - Carmen Patterson RN - 05/30/2021 2:17 PM CDT 05/30/21 1415 Provider Notification Provider Name/Title Dr. Gutiérrez Method of Notification Electronic Page;Phone Notification Reason Status Update Updated of pt reporting increased back pn and cramping along with some vaginal pressure as if something was pushing against it. Pt rating pn 7/10, pt is in bed talking and relaxed, does not appear uncomfortable, toco and & us were applied and check writer salesperson gave pt button to push when feeling the symptoms. Per toco no contrx noted, abd is soft, per marking by pt, pt felt these syptoms x3 over the last 30 min, t's cat [address] Gutiérrez agrees that it is not indicated to check cervix, and to continue to monitor. Provider Notification - Carmen Patterson RN - 05/30/2021 8:42 AM CDT 05/30/21 0833 05/30/21 0842 Provider Notification Provider Name/Title Dr. Marla Gutiérrez Method of Notification Electronic Page Phone Clarified blood sugar monitoring, per Dr. Gutiérrez ok to do FBG and 2hr post meal, ok for pt to eat breakfast. Provider Notification - Alia Smith RN - 05/30/2021 4:31 AM CDT 05/30/21 0429 Provider Notification Provider Name/Title Dr. Waters Method of Notification In Department Request Evaluate - Remote Notified RN just took pt off monitor per her note saying qshift NST ok, FHT have been category 1 most of the night. Pt has been sleeping most of the night, reporting cramping but denies contractions. Provider Notification - Alia Smith RN - 05/29/2021 9:56 PM CDT 05/29/212149 Provider Notification Provider Name/Title Dr Waters Method of Notification Phone Request Evaluate - Remote Notification Reason Patient Request Pt kim less, not picking up on toco, pt reports constant cramping and vaginal pressure, states she is coping but would not be able to sleep. TORB for 100 mg Vistaril PO once and Morphine 10 mg IM once. Provider Notification - Alia Smith RN - 05/29/2021 7:32 PM CDT 05/29/211919 Provider Notification Provider Name/Title Dr Waters Method of Notification At Bedside Request Evaluate in Person MD at bedside to discuss POC. Ok to give metformin at 2200, continue checking BG every 4 hours untilpatient in active labor. Provider Notification - Martina Vasquez RN - 05/29/2021 5:39 PM CDT 05/29/21 1738 Provider Notification Provider Name/Title Dr Waters Method of Notification At Bedside Notification Reason SVE SVE done. Provider Notification - Martina Vasquez RN - 05/29/2021 3:08 PM CDT 05/29/21 1507 Provider Notification Provider Name/Title Dr Waters Method of Notification At Bedside Notification Reason SVE SVE done, MD will write intrapartum orders and gave VORB for nitrous oxide, IV Fentanyl, epidural prn. Provider Notification - Martina Vasquez RN - 05/29/2021 2:36 PM CDT 05/29/21 1436 Provider Notification Provider Name/Title Dr Rai Method of Notification At Bedside Notification Reason Labor Status MD aware that contractions are getting more regular, pt's pain is remaining the same and denies any meds now, and intermittent pressure felt with contractions. No new orders given. Provider Notification - Martina Vasquez RN - 05/29/2021 1:31 PM CDT 05/29/21 1331 Provider Notification Provider Name/Title Dr Waters Method of Notification In Department Request Evaluate - Remote Notification Reason Other (Comment) Inquired MD on how often pt blood glucose levels should be checked. MD gave VORB to check BG levels [id number] and pt may eat light diet. Provider Notification - Martina Vasquez RN - 05/29/2021 12:59 PM CDT 05/29/21 1210 Provider Notification Provider Name/Title Dr Waters Method of Notification Phone Request Evaluate - Remote Notification Reason Pain Updated MD that pt is having abdominal cramping and requested FM on, no contractions seen yet and will continue to monitor. Provider Notification - Martina Vasquez RN - 05/29/2021 12:57 PM CDT 05/29/21 1257 Provider Notification Provider Name/Title Dr Waters Method of Notification Phone Request Evaluate - Remote Notification Reason SVE;Status Update Updated that pt is still having abdominal cramping and is now feeling intermittent perineum pressure, sve done 4.5//-3, 1L lr flush going, pt is GBS neg. No new orders given. Provider Notification - Martina Vasquez RN - 05/29/2021 10:39 AM CDT 05/29/21 1038 Provider Notification Provider Name/Title Dr aWters Method of Notification In Department Notification Reason Status Update Updated MD that pt had a reactive NST and has not had any contractions or abdominal pain since last night. MD will see pt and no new orders given. Provider Notification - Ana Mendieta RN - 05/29/2021 12:58 AM CDT 05/29/21 0058 Provider Notification Provider Name/Title Dr. Muro Method of Notification In Department Md notified of patient's most recent reported pain. Around 11:00, Altagracia described sharp vaginal pain after going to the bathroom to empty her bladder. She rated the pain at 7/10, but confirmed the pain was intermittent. She has been marking pain and she has marked x1 in over an hour. Discussed pending urine culture with MD; will wait for UC before treatment. FHR tracing category 1 at this time. Reviewed plan of care and available pain medications with Altagracia. She declines any need for medication at this time. Plan of Care - Ana Mendieta RN - 05/29/2021 12:35 AM CDT RN at bedside to rule out tachycardia with decels vs. Prolonged accels. FHR tracing has shown prolonged accelerations with return to normal baseline with moderate variability prior to current tracing. Mother confirms fetus is very active; frequent movement felt on abdomen with replacement of US.Most recent prolonged accel was 10 minutes in length. Pt repositioned to right lateral and FHR tracing showed category 1 with normal baseline and normal- duration accelerations. Provider Notification - Laurel Francisco - 05/28/2021 7:30 PM CDT 05/28/21 1930 Provider Notification Provider Name/Title Dr. Muro Method of Notification At Bedside Request Evaluate in Person Notification Reason Pain MD at bedside. MD evaluating pt's pain and ongoing lower back cramping and occasional perineal sharp, pressure pain. No need to repeat SVE at this time. MD states plan will be to do TID NST unless pt's symptoms increase. Provider Notification - Melida Bryant RN - 05/28/2021 11:10 AM CDT 05/28/21 1110 Provider Notification Provider Name/Title Dr. Muro Method of Notification At Bedside Request Evaluate in Person Notification Reason Patient Arrived Dr. Muro at bedside. Pt was sent from [place] and was admitted at [facility] a few days ago for PTL.SVE by 3.5/80/-3, posterior, soft and ballottable. FHT's initially tachycardic--now resolved to baseline of 155. Pt feeling intermittent cramps, perineal pressure and low back discomfort. Pt says itcan be stronger than a period cramp at times. Orders to keep pt overnight for observation. Orders to start IV and give 1 L bolus of LR now. GDM monitoring per pt home regimen. Continuous uterine/ monitoring. Orders to stop Nifedipine. Pt and family agreeable with plan of care--all questions answered. Plan of Care - Melida Bryatn RN - 05/28/2021 10:54 AM CDT Data: [facility]: 05/28/2021 10:54 AM. Reason for maternal/ assessment is uterine contractions, pelvic pain. Patient reports intermittent cramping/pressure and back pain. Pt was sent from her OB appointment in [place] to [facility]. Patient is a . record reviewed. has been complicated by gestational diabetes, metformin controlled and labor/contractions. Gestational Age 33w0d. VSS. movement active. Patient denies leaking of vaginal fluid/rupture of membranes, vaginal bleeding, abdominal pain, vomiting, headache, visual disturbances, epigastric orURQ pain, significant edema. Support person is present. Action: Verbal consent for EFM. Triage assessment completed. Bill of rights reviewed. Response: Patient verbalized agreement with plan. Will contact Dr Neli Muro with update and for further orders. documented in this encounter Plan of Treatment Upcoming Encounters Date Type Specialty Care Team Description 12/28/2022 Virtual Visit Endocrinology Merle Mccarthy MD [address] [place] [address] (Wo rk) documented as of this encounter Procedures Procedure Name Priority Date/Time Associated Comments Diagnosis GLUCOSE BY METER Routine 05/31/2021 11:31 Results for this AM CDT procedure are i n the results section. GLUCOSE BY METER Routine 05/31/2021 6:26 AM Resul ts for this CDT procedure are i n the results section. GLUCOSE BY METER Routine 05/30/2021 9:39 PM Resul ts for this CDT procedure are i n the results section. GLUCOSE BY METER Routine 05/30/2021 3:24 PM Resul ts for this CDT procedure are i n the results section. GLUCOSE BY METER Routine 05/30/2021 11:26 Results for this AM CDT procedure are i n the results section. URINE DRUGS OF ABUSE STAT 05/30/2021 8:57 AM R esults for this SCREEN CDT procedure are i n the results section. OPIATES QUANTITATIVE Routine 05/30/2021 8:57 AM R esults for this URINE CDT procedure are i n the results section. DRUG ABUSE SCRN 7 UR STAT 05/30/2021 8:57 AM R esults for this (/) CDT procedur e are in (RH, SH, UR) the results section. GLUCOSE BY METER Routine 05/30/2021 7:04 AM Resul ts for this CDT procedure are i n the results section. GLUCOSE BY METER Routine 05/30/2021 1:16 AM Resul ts for this CDT procedure are i n the results section. GLUCOSE BY METER Routine 05/29/2021 9:37 PM Resul ts for this CDT procedure are i n the results section. GLUCOSE BY METER Routine 05/29/2021 5:37 PM Resul ts for this CDT procedure are i n the results section. GLUCOSE BY METER Routine 05/29/2021 1:36 PM Resul ts for this CDT procedure are i n the results section. GLUCOSE BY METER Routine 05/29/2021 7:47 AM Resul ts for this CDT procedure are i n the results section. GLUCOSE BY METER Routine 05/28/2021 7:27 PM Resul ts for this CDT procedure are i n the results section. COVID-19 VIRUS STAT 05/28/2021 2:16 PM Results for this (CORONAVIRUS) BY PCR CDT procedu re are in the results section. GLUCOSE BY METER Routine 05/28/2021 2:04 PM Resul ts for this CDT procedure are i n the results section. EXTRA TUBE Routine 05/28/2021 12:16 Results for this PM CDT procedure are i n the results section. EXTRA GREEN TOP Routine 05/28/2021 12:16 Results for this (LITHIUM HEPARIN) TUBE PM CDT proce dure are in the results section. TYPE AND SCREEN, ADULT STAT 05/28/2021 12:16 R esults for this PM CDT procedure are i n the results section. TREPONEMA ABS W REFLEX STAT 05/28/2021 12:16 R esults for this TO RPR AND TITER PM CDT procedure a re in the results section. ABO/RH TYPE AND SCREEN STAT 05/28/2021 12:16 R esults for this PM CDT procedure are i n the results section. CBC WITH PLATELETS STAT 05/28/2021 12:16 Resul ts for this PM CDT procedure are i n the results section. ROUTINE UA WITH Routine 05/28/2021 11:35 Results for this MICROSCOPIC REFLEX TO AM CDT proced ure are in CULTURE the results section. URINE CULTURE Routine 05/28/2021 11:35 Results fo r this AM CDT procedure are i n the results section. GLUCOSE BY METER Routine 05/28/2021 11:22 Results for this AM CDT procedure are i n the results section. GROUP B STREPTOCOCCUS Routine 05/25/2021 8:00 AM Results for this (EXTERNAL RESULT) CDT procedure are in the results section. documented in this encounter Results (ABNORMAL) Glucose by meter (05/31/2021 11:31 AM CDT) P athologist Signature GLUCOSE BY 102 (H) 70 - 99 05/31/2021 [facility] METER POCT mg/dL 11:37 AM CDT POC Specimen Anatomical Collection Method Collection Time Receive d Time (Source) Location / / Volume Laterality Blood BLOOD SPECIMEN / 05/31/2021 11:31 021 Unknown AM CDT 11:37 AM CDT Laury Waters MD LAB - BEAKER POCT Performing Organization Address City/State/ZIP Code [place] [address] [facility] [address] Lab (1st floor, no room number) (ABNORMAL) Glucose by meter (05/31/2021 6:26 AM CDT) P athologist Signature GLUCOSE BY 107 (H) 70 - 99 05/31/2021 [facility] METER POCT mg/dL 6:33 AM CDT POC Specimen Anatomical Collection Method Collection Time Receive d Time (Source) Location / / Volume Laterality Blood BLOOD SPECIMEN / 05/31/2021 6:26 AM 05/31 6:33 Unknown CDT AM CDT Jaimie Gutiérrez MD LAB - BEAKER POCT Performing Organization Address City/State/ZIP Code Phon [place] [address] [facility] [address] Lab (1st floor, no room number) (ABNORMAL) Glucose by meter (05/30/2021 9:39 PM CDT) P athologist Signature GLUCOSE BY 160 (H) 70 - 99 05/31/2021 [facility] METER POCT mg/dL 12:18 AM CDT POC Specimen Anatomical Collection Method Collection Time Receive d Time (Source) Location / / Volume Laterality Blood BLOOD SPECIMEN / 05/30/2021 9:39 PM 05/31 Unknown CDT 12:18 AM CDT Jaimie Gutiérrez MD LAB - BEAKER POCT Performing Organization Address [facility]/ZIP Code Ph[place] [address] [facility] [address] Lab (1st floor, no room number) (ABNORMAL) Glucose by meter (05/30/2021 3:24 PM CDT) P athologist Signature GLUCOSE BY 110 (H) 70 - 99 05/30/2021 [facility] METER POCT mg/dL 3:31 PM CDT POC Specimen Anatomical Collection Method Collection Time Receive d Time (Source) Location / / Volume Laterality Blood BLOOD SPECIMEN / 05/30/2021 3:24 PM 05/30 3:31 Unknown CDT PM CDT Jaimie ALBARADO - BETALYA POCT Performing Organization Address [facility]/ZIP Code [place] [address] [facility] [address] Lab (1st floor, no room number) (ABNORMAL) Glucose by meter (05/30/2021 11:26 AM CDT) athologist Signature GLUCOSE BY 140 (H) 70 - 99 05/30/2021 [facility] METER POCT mg/dL 11:32 AM CDT POC Specimen Anatomical Collection Method Collection Time Receive d Time (Source) Location / / Volume Laterality Blood BLOOD SPECIMEN / 05/30/2021 11:26 021 Unknown AM CDT 11:32 AM CDT Jaimie ALBARADO - BEAKER POCT Performing Organization Address City/[facility]/ZIP Code [place] [address] [facility] [address] Lab (1st floor, no room number) Opiates quantitative urine (05/30/2021 8:57 AM CDT) [facility] gist Method Time Signature Codeine, Urine Not Detected ng/mg 06/04/2021 [facility] creat 3:07 PM CDT X Morphine, 2305 ng/mg 06/04/2021 [facility] Urine creat 3:07 PM CDT X Level of Comment 06/04/2021 [facility] Detection 3:07 PM CDT X Comment: Testing Threshold: ??50 ng/mL ? ' This test was developed and its performa nce characteristics determined by [facility]. ??It has not been cleared or approved by the Food and Drug Administration. Opiate Class +POSITIVE+ 06/04/2021 3:07 PM CDT [facility] Normorphine, Urine 166 ng/mg creat 06/04/2021 3:07 PM CDT [facility] Norcodeine, Urine Not Detected ng/mg creat 06/04/2021 3:07 PM CDT [facility] Hydrocodone, Urine Not Detected ng/mg creat 06/04/2021 3:0 7 PM CDT [facility] Hydromorphone, Not Detected ng/mg creat 06/04/2021 3:07 PM C DT [facility] Urine Dihydrocodeine, Not Detected ng/mg creat 06/04/2021 3:07 PM CDT [facility] Urine Norhydrocodone, Not Detected ng/mg creat 06/04/2021 3:07 PM CDT [facility] Urine Comment: Expected metabolism of opiate class drug s: Parent Drug ? Detected Metabolite s ? -- Codeine: ?Major: ??Morphin e, Norcodeine ? Minor: ??Hyd rocodone, Hydromorphone, ? Dihydrocodeine, Norhydrocodone, ? Normorphine Morphine: ? Major: ??Normorph ine ? Minor: ??Hyd romorphone Hydrocodone: ?Hydromorphone, Dih ydrocodeine, ? Norhydrocodo ne Hydromorphone: ?None Dihydrocodeine: ?? None Heroin: ? 6-Acetylmorphine (if included), ? Morphine, No rmorphine ? Codeine, in small amounts in comparison ?to morphin e, is often detected when ?heroin is the source drug. Specimen Anatomical Collection Method Collection Time Receive d Time (Source) Location / / Volume Laterality Urine URINE SPECIMEN Non-blood 05/30/2021 8:57 AM 021 9:28 OBTAINED BY CLEAN Collection / CDT AM CDT CATCH PROCEDURE / Unknown Unknown Narrative [facility] - 06/04/2021 3:07 PM CDT Performed at: ??01 - [employer] [address] [place], [place] ??[address] [id number] Tactical Analysis Technician: Yue Bernal [facility], Phone: ??[phone] Jaimie Gutiérrez MD LAB - URINE ORDERABLES Performing Organization Address City/State/ZIP Code Phon e Number [facility] [employer] [employer] [place] [address] [facility] [place], [place] [address] [phone] [facility] [address] (ABNORMAL) Drug abuse scrn 7 UR (/) (RH, SH, UR) (05/30/2021 8:57 AM CDT) [facility] gist Method Time Signature Amphetamines Screen Screen 05/30/2021 LABORATORY Urine Negative Negative 9:28 AM CDT Comment: Cutoff for a negative amphetami ne is 500 ng/mL or less. Cannabinoids Urine Screen Negative Screen Negative 021 9:28 LABORATORY AM CDT Comment: Cutoff for a negative cannabino id is 50 ng/mL or less. Cocaine Urine Screen Negative Screen Negative 05/30/2021 9:2 8 AM LABORATORY CDT Comment: Cutoff for a negative cocaine i s 300 ng/mL or less. Opiates Urine Screen Positive Screen Negative 05/30/2021 9:2 8 AM LABORATORY (A) CDT Comment: Cutoff for a positive opiate is greater than 300 ng/mL. This is an unconfirmed screening result to be used for medical purposes only. PCP Urine Screen Negative Screen Negative 05/30/2021 9:28 AM CDT LABORATORY Comment: Cutoff for a negative PCP is 25 ng/mL or less. Specimen Anatomical Collection Method Collection Time Receive d Time (Source) Location / / Volume Laterality Urine URINE SPECIMEN Non-blood 05/30/2021 8:57 AM 021 9:07 OBTAINED BY CLEAN Collection / CDT AM CDT CATCH PROCEDURE / Unknown Unknown Jaimie Gutiérrez MD LAB - URINE ORDERABLES Performing Organization Address City/State/ZIP Code Phon [place] [phone] Care [facility] [address] Lab (1st floor, no room number) Glucose by meter (05/30/2021 7:04 AM CDT) athologist Signature GLUCOSE BY 93 70 - 99 05/30/2021 LABORATORY METER POCT mg/dL 7:11 AM CDT POC Specimen Anatomical Collection Method Collection Time Receive d Time (Source) Location / / Volume Laterality Blood BLOOD SPECIMEN / 05/30/2021 7:04 AM 05/30 7:11 Unknown CDT AM CDT Laury ALBARADO - BECKY POCT Performing Organization Address [facility]/ZIP Code [place] [address] Care [facility] [address] Lab (1st floor, no room number) Glucose by meter (05/30/2021 1:16 AM CDT) P athologist Signature GLUCOSE BY 91 70 - 99 05/30/2021 [facility] METER POCT mg/dL 1:22 AM CDT POC Specimen Anatomical Collection Method Collection Time Receive d Time (Source) Location / / Volume Laterality Blood BLOOD SPECIMEN / 05/30/2021 1:16 AM 05/30 1:22 Unknown CDT AM CDT Laury ALBARADO - BECKY POCT Performing Organization Address [facility]/ZIP Code [place] [address] Care [facility] [address] Lab (1st floor, no room number) (ABNORMAL) Glucose by meter (05/29/2021 9:37 PM CDT) P athologist Signature GLUCOSE BY 114 (H) 70 - 99 05/29/2021 [facility] METER POCT mg/dL 9:44 PM CDT POC Specimen Anatomical Collection Method Collection Time Receive d Time (Source) Location / / Volume Laterality Blood BLOOD SPECIMEN / 05/29/2021 9:37 PM 05/29 9:44 Unknown CDT PM CDT Laury PENA POCT Performing Organization Address City/[facility]/ZIP Code [place] [address] Care [facility] [address] Lab (1st floor, no room number) Glucose by meter (05/29/2021 5:37 PM CDT) P athologist Signature GLUCOSE BY 79 70 - 99 05/29/2021 [facility] METER POCT mg/dL 5:43 PM CDT POC Specimen Anatomical Collection Method Collection Time Receive d Time (Source) Location / / Volume Laterality Blood BLOOD SPECIMEN / 05/29/2021 5:37 PM 05/29 5:43 Unknown CDT PM CDT Laury Waters MD LAB - BEAKER POCT Performing Organization Address City/State/ZIP Code Phon [place] [address] Care [facility] [address] Lab (1st floor, no room number) Glucose by meter (05/29/2021 1:36 PM CDT) P athologist Signature GLUCOSE BY 84 70 - 99 05/29/2021 [facility] METER POCT mg/dL 1:42 PM CDT POC Specimen Anatomical Collection Method Collection Time Receive d Time (Source) Location / / Volume Laterality Blood BLOOD SPECIMEN / 05/29/2021 1:36 PM 05/29 1:42 Unknown CDT PM CDT Laury Waters MD LAB - BEAKER POCT Performing Organization Address City/[facility]/ZIP Code Phon [place] [address] Care Lab [address] Lab (1st floor, no room number) Glucose by meter (05/29/2021 7:47 AM CDT) P athologist Signature GLUCOSE BY 86 70 - 99 05/29/2021 [facility] METER POCT mg/dL 7:53 AM CDT POC Specimen Anatomical Collection Method Collection Time Receive d Time (Source) Location / / Volume Laterality Blood BLOOD SPECIMEN / 05/29/2021 7:47 AM 05/29 7:53 Unknown CDT AM CDT Neli Muro MD LAB - BEAKER POCT Performing Organization Address City/State/ZIP Code Phon [place] [address] Care Lab [address] Lab (1st floor, no room number) (ABNORMAL) Glucose by meter (05/28/2021 7:27 PM CDT) P athologist Signature GLUCOSE BY 110 (H) 70 - 99 05/28/2021 LABORATORY METER POCT mg/dL 7:34 PM CDT POC Specimen Anatomical Collection Method Collection Time Receive d Time (Source) Location / / Volume Laterality Blood BLOOD SPECIMEN / 05/28/2021 7:27 PM 05/28 7:34 Unknown CDT PM CDT Neli Muro MD LAB - BEAKER POCT Performing Organization Address City/State/ZIP Code Phon e [place] [address] Care Lab [address] Lab (1st floor, no room number) Asymptomatic COVID-19 Virus (Coronavirus) by PCR Nasopharyngeal (05/28/2021 2:16 PM CDT) Analysis Performed At Patho logist Time Signature SARS CoV2 PCR Negative Negative 05/28/2021 LABORATORY 3:26 PM CDT Comment: NEGATIVE: SARS-CoV-2 (COVID-19) RNA not detected, presumed negative. Specimen Anatomical Location / Collection Method Collection Brandon e Received Time (Source) Laterality / Volume Swab NASOPHARYNGEAL Non-blood 05/28/2021 2:16 05/28/2021 2:23 STRUCTURE / Unknown Collection / PM CDT PM CDT Unknown Narrative LABORATORY - 05/28/2021 3:26 PM CDT Testing was performed using the dinorah?? SARS-CoV-2 & Influenza A/B Assay on the dinorah?? Enedina?? System. ??This test shoul d be ordered for the detection of SARS-COV-2 in individuals who meet SARS-CoV-2 clini moni and/or epidemiological criteria. Test performance is unknown in asymptomatic p atients. ??This test is for in vitro diagnostic use under the FDA EUA for lab oratories certified under CLIA to perform moderate and/or high complexity testing. This test has not been FDA cleared or approved. ??A negative test does not rul e out the presence of PCR inhibitors in the specimen or target RNA in concentration below the limit of detection for the assay. The possibility of a false negative shou ld be considered if the patient's recent exposure or clinical presentation sugges ts COVID-19. ??[facility] are certified under the Clinical Laborat ory Improvement Amendments of 1988 (CLIA-88) as qualified to perform moderate and/or high complexity laboratory testing. Neli Muro MD LAB - MICRO GENERAL ORDERABL ES Performing Organization Address City/[facility]/ZIP Code Phon [place] [address] Care Lab [address] Lab (1st floor, no room number) (ABNORMAL) Glucose by meter (05/28/2021 2:04 PM CDT) athologist Signature GLUCOSE BY 105 (H) 70 - 99 05/28/2021 [facility] LABORATORY METER POCT mg/dL 2:10 PM CDT POC Specimen Anatomical Collection Method Collection Time Receive d Time (Source) Location / / Volume Laterality Blood BLOOD SPECIMEN / 05/28/2021 2:04 PM 05/28 2:10 Unknown CDT PM CDT Neli Muro MD LAB - BEAKER POCT Performing Organization Address City/[facility]/ZIP Code Phon e [place] [address] Care Lab [address] Lab (1st floor, no room number) Extra Green Top ([place] Heparin) Tube (05/28/2021 12:16 PM CDT) athologist Signature Hold Specimen JIC 05/28/2021 [facility] LABORATORY 1:31 PM CDT Specimen Anatomical Collection Method / Collection Time Recei jose g Time (Source) Location / Volume Laterality Blood STRUCTURE OF LEFT Venipuncture / 05/28/2021 12:16 05/10 HAND / Unknown Unknown PM CDT 12:28 PM CDT Neli Muro MD LAB - BLOOD ORDERABLES Performing Organization Address City/State/ZIP Code [place] [address] Care Lab [address] Lab (1st floor, no room number) Adult Type and Screen (05/28/2021 12:16 PM CDT) [facility] Method Time Signature ABO/RH(D) B POS 05/28/2021 RH BLOOD 11:30 AM BANK CDT Antibody Negative Negative 05/28/2021 RH BLOOD Screen 11:30 AM BANK CDT SPECIMEN [id number] 05/28/2021 RH BLOOD EXPIRATION 11:30 AM BANK DATE CDT Specimen Anatomical Collection Method / Collection Time Recei jose g Time (Source) Location / Volume Laterality Blood STRUCTURE OF LEFT Venipuncture / 05/28/2021 12:16 08/06/2021 UPPER LIMB / Unknown PM CDT 12:24 PM CDT Unknown Neli Muro MD LAB - BLOOD BANK TEST ORDER Performing Organization Address City/State/ZIP Code Phon e Number BLOOD BANK [address] [place] [address] Treponema Abs w Reflex to RPR and Titer (05/28/2021 12:16 PM CDT) [facility] Signature Treponema Nonreactive Nonreactive 05/28/2021 [facility] Antibody 6:27 PM CDT SPECIALTY Total CORE Specimen Anatomical Collection Method / Collection Time Recei jose g Time (Source) Location / Volume Laterality Blood STRUCTURE OF LEFT Venipuncture / 05/28/2021 12:16 0806/2021 UPPER LIMB / Unknown PM CDT 12:24 PM CDT Unknown Neli Muro MD LAB - BLOOD ORDERABLES Performing Organization Address City/State/ZIP Code Phon e Number SPECIAL[place] [address] CORE/PROT/ENDO Core/Prot/Endo [address] [facility], Room 3[address]580 [facility] SPECIALTY CORE [facility] Specialty [place] Lab [phone] [address] [facility], Room [address]271[address]5 (ABNORMAL) CBC with platelets (05/28/2021 12:16 PM CDT) [facility] Method Time Signature WBC Count 11.6 (H) 4.0 - 11.0 05/28/2021 RH LABORATORY 10e3/uL 12:39 PM CDT RBC Count 3.97 3.80 - 05/28/2021 [facility] LABORATORY 5.20 12:39 PM CDT 10e6/uL Hemoglobin 10.8 (L) 11.7 - 05/28/2021 [facility] LABORATORY 15.7 g/dL 12:39 PM CDT Hematocrit 34.3 (L) 35.0 - 05/28/2021 [facility] LABORATORY 47.0 % 12:39 PM CDT MCV 86 78 - 100 05/28/2021 [facility] LABORATORY fL 12:39 PM CDT MCH 27.2 26.5 - 05/28/2021 [facility] LABORATORY 33.0 pg 12:39 PM CDT MCHC 31.5 31.5 - 05/28/2021 [facility] LABORATORY 36.5 g/dL 12:39 PM CDT RDW 13.2 10.0 - 05/28/2021 [facility] LABORATORY 15.0 % 12:39 PM CDT Platelet Count 148 (L) 150 - 450 05/28/2021 [facility] LABORATORY 10e3/uL 12:39 PM CDT Specimen Anatomical Collection Method / Collection Time Recei jose g Time (Source) Location / Volume Laterality Blood STRUCTURE OF LEFT Venipuncture / 05/28/2021 12:16 0806/2021 HAND / Unknown Unknown PM CDT 12:24 PM CDT Neli Muro MD LAB - BLOOD ORDERABLES Performing Organization Address City/State/ZIP Code Phon [place] [phone] Care Lab [address] [facility] Lab (1st floor, no room number) Urine Culture (05/28/2021 11:35 AM CDT) P athologist Signature Culture No Growth JOSE MANUEL 05/29/2021 [facility] IDD 4:43 PM CDT LABORATORY Specimen Anatomical Collection Method Collection Time Receive d Time (Source) Location / / Volume Laterality Urine URINE SPECIMEN Non-blood 05/28/2021 11:35 1:07 OBTAINED BY CLEAN Collection / AM CDT PM CDT CATCH PROCEDURE / Unknown Unknown Neli Muro MD LAB - MICRO GENERAL ORDERABL ES Performing Organization Address City/State/ZIP Code Phon e Number UU IDD LABORATORY [facility] [place] [place] [id number] Diag. Lab [address] [facility], [address] [facility] LABORATORY [facility] Infectious [place], [place] [phone] Diseases Diagnostic [phone], [facility] Lab (IDDL) [address] [facility], [address] (ABNORMAL) UA with Microscopic reflex to Culture (05/28/2021 11:35 AM CDT) [facility] Method Time Signature Color Urine Yellow Colorless, 05/28/2021 LABORATORY Straw, 1:07 PM CDT Light Yellow, Yellow Appearance Urine Slightly Clear 05/28/2021 RH LABORATOR Y Cloudy (A) 1:07 PM CDT Glucose Urine Negative Negative 05/28/2021 LABORATORY mg/dL 1:07 PM CDT Bilirubin Urine Negative Negative 05/28/2021 LABORATORY 1:07 PM CDT Ketones Urine Negative Negative 05/28/2021 LABORATORY mg/dL 1:07 PM CDT Specific [place] 1.024 1.003 - 05/28/2021 RH LABORATOR Y Urine 1.035 1:07 PM CDT Blood Urine Negative Negative 05/28/2021 RH LABORATORY 1:07 PM CDT pH Urine 6.5 5.0 - 7.0 05/28/2021 [facility] LABORATORY 1:07 PM CDT Protein Albumin 10 (A) Negative 05/28/2021 LABORATORY Urine mg/dL 1:07 PM CDT Urobilinogen Normal Normal, 2.0 05/28/2021 LABORATORY Urine mg/dL 1:07 PM CDT Nitrite Urine Negative Negative 05/28/2021 LABORATORY 1:07 PM CDT Leukocyte Moderate Negative 05/28/2021 LABORATORY Esterase Urine (A) 1:07 PM CDT Bacteria Urine Few (A) None Seen 05/28/2021 LABORATORY /HPF 1:07 PM CDT Mucus Urine Present (A) None Seen 05/28/2021 LABORATORY /LPF 1:07 PM CDT Calcium Oxalate Few (A) None Seen 05/28/2021 LABORATORY Crystals Urine /HPF 1:07 PM CDT RBC Urine 2 <=2 /HPF 05/28/2021 RH LABORATORY 1:07 PM CDT WBC Urine 5 <=5 /HPF 05/28/2021 RH LABORATORY 1:07 PM CDT Squamous 5 (H) <=1 /HPF 05/28/2021 LABORATORY Epithelials 1:07 PM CDT Urine Specimen Anatomical Collection Method Collection Time Receive d Time (Source) Location / / Volume Laterality Urine URINE SPECIMEN Non-blood 05/28/2021 11:35 OBTAINED BY CLEAN Collection / AM CDT 12:01 PM C DT CATCH PROCEDURE / Unknown Unknown Narrative LABORATORY - 05/28/2021 1:07 PM CDT Urine Culture ordered based on laborator y criteria Neli Muro MD LAB - URINE ORDERABLES Performing Organization Address City/State/ZIP Code [place] [address] Care Lab [address] Lab (1st floor, no room number) Glucose by meter (05/28/2021 11:22 AM CDT) P athologist Signature GLUCOSE BY 94 70 - 99 05/28/2021 LABORATORY METER POCT mg/dL 11:29 AM CDT POC Specimen Anatomical Collection Method Collection Time Receive d Time (Source) Location / / Volume Laterality Blood BLOOD SPECIMEN / 05/28/2021 11:22 021 Unknown AM CDT 11:29 AM CDT Neli Muro MD LAB - BEAKER POCT Performing Organization Address City/[facility]/ZIP Code Phon e Number [place] [address] Care Lab [address] Lab (1st floor, no room number) Group B Strep PCR (External Result) (05/25/2021 8:00 AM CDT) [facility] Method Time Signature Group B Negative Negative EXTERNAL LAB Streptococcus (External) Specimen (Source) Anatomical Collection Method Collection Time Re ceived Time Location / / Volume Laterality 05/25/2021 8:00 AM CDT Patient Reported LAB - HIM EXTERNAL RESULT Performing Organization Address City/[facility]/ZIP Code Phon e Number EXTERNAL LAB EXTERNAL LAB External Lab documented in this encounter Visit Diagnoses Diagnosis Encounter for triage in patient labor in third trimester with pr eterm delivery documented in this encounter Admitting Diagnoses Diagnosis Encounter for triage in patient labor Early onset of delivery, unspecified as to episode of care documented in this encounter Administered Medications Inactive Administered Medications - up to 3 most recent administrations Medication Order MAR Action Action Date Dose Rate Site dextrose 50 % injection 25-50 mL 25-50 mL, Intravenous, EVERY 15 MIN PRN, low blood sug ar, Administer over 1-5 Minutes, Starting on Tue05/29/21 at 1517 , Use if have IV access, BG less than 70 mg/dL and meet dose criteria below: Dose if conscious and alert (or disorientated) and NPO = 25 mL Dose if unconscious / no t alert = 50 mL Give first dose for initial blood glucose less than 70 mg/dL. If blood glucose at 15 minute recheck is less than or equal to 80 mg/dL continue to ad rabbler carbohydrate treatment every 15 minutes, as needed, based on blood gluco se and assessment parameters until blood glucose level is above 80 mg/dL. Vesican t. For ordered doses up to 25 g, give IV Push undiluted. Give each 5g over 1 minute., Intrapart um ePHEDrine injection 5 mg 5 mg, Intravenous, EVERY 3 MIN PRN, if S ystolic Blood Pressure less than 100 mmHg, Starting on Tue05/29/21 at 1515, IF patient remains hy potensive (Systolic Blood Pressure less than 100 mmHg) AFTER the 4 dose, notify Anesthesia. Notify Anesthesia PRIOR to administering additional doses., Intrapartum fentaNYL (PF) (SUBLIMAZE) injection 50-100 Given 05/29/2021 6:20 PM CDT 100 mcg mcg 50-100 mcg, Intravenous, EVERY 1 HOUR PRN, other, desired pain relief based on labor coping/body mass index/labor assessment., Starting on Tue05/29/21 at 1520, Start at the lowest dose or may give higher initial dose if labor coping/assessment warrants or as directed by provider. May adjust subsequent doses as needed for pain control based on patient response to first dose or labor coping. Hold dose for analgesic side effects. Notify provider to assess for uncontrolled pain or analgesic side effects. If maximum total dose of 200 mcg in 2 hour period is given, contact Provider for further orders. Maximum total dose of 400 mcg over an 8 hour period. If respiratory rate LESS THAN 8 or maternal HR LESS THAN 50, call Provider. For ordered IV doses 1-100 mcg give IV Push undiluted over a minimum of 3-5 minutes., Intrapartum Given 05/29/2021 5:08 PM CDT 50 mcg fentaNYL (SUBLIMAZE) 2 mcg/mL, bupivacai ne (MARCAINE) 0.125% in NS premix for PCEA PCEA dose (mL): 5, PCEA Lockout Interval (min): 15 minutes, Hour Limit (mL): 25, Continuous Rate (Basal Rate) (mL/hr): 10, Absolutely n o anticoagulants, thrombolytics or antiplatelet medications or other opi oid analgesics or other sedatives without prior notification of anesthesiology . For CADD cassettes, pharmacy to send epidural tubing set., Routine glucagon injection 1 mg 1 mg, Subcutaneous, EVERY 15 MIN PRN, low blood sugar, May repeat x 1 only, Starting on Tue05/29/21 at 1517, May giv e SQ or IM. ONLY use glucagon IF patient has NO IV access AND is UNABLE to swallo w AND blood glucose is LESS than or EQUAL to 50 mg/dL. If ordered IV, give IV Push over 1 minute . Reconstitute with 1mL sterile water., Intrapartum glucose gel 15-30 g 15-30 g, Oral, EVERY 15 MIN PRN, low blo od sugar, Starting on Tue05/29/21 at 1517, Give first dose for initial blood glucose less than 70 mg/dL per the dosing instructions below. If blood glucose at 15 minute rechecks is still less than or equal to 80 mg/dL, continue to administe r doses per blood glucose parameters every 15 minutes, as needed, until blood glucose level is ab ove 80 mg/dl. Dosing Instructions: If patient is conscious and able to swal low For initial BG 51-69 mg/dL OR 15 minute recheck BG 51- 80 mg/ dL - give 15 g For BG less than or equal to 50 mg/dL - give 30 g ~Oral gel is preferable for consc ious and able to swallow patient. ~IF gel unavailable or patient refuses may provide apple juice as follows: Apple juice dosing instructions. For ini tial BG 51-69 mg/dL OR 15 minute recheck BG 51- 80 mg/dL - give apple juice 120 mL ( 4 oz or 15 g of CHO). For BG less than or equal to 50 mg/dL - Give apple juice 240 mL (8 oz or 30 g of CHO). Document juice on I and O flowsheet., Intrapartum hydrOXYzine (ATARAX) tablet 100 mg Given 05/29/2021 11:01 PM CDT 100 mg 100 mg, Oral, ONCE, On Tue05/29/21 at 2200, For 1 dose hydrOXYzine (ATARAX) tablet 100 mg Given 05/30/2021 11:09 PM CDT 100 mg 100 mg, Oral, AT BEDTIME PRN, other, sleep, Starting on 05/30/21 at 1941 hydrOXYzine (ATARAX) tablet 50 mg 50 mg, Oral, AT BEDTIME PRN, other, sleep, Starting on 05/30/21 at 1941 ibuprofen (ADVIL/MOTRIN) tablet 600 mg 600 mg, Oral, ONCE PRN, other, For mild to moderate pain., Starting on Tue05/29/21 at 1517, For 5 days, Give 30-60 minutes post procedure x 1 dose. Do not give within 6 hours of ketorolac dose. Give with food., IF HIGHER-dose Low molecular weight hepa rin (LMWH) thromboprophylaxis ordered SEE ADMIN INSTRUCTIONS, Starting on Tue05/29/21 at 1515, Until Tue05/31/21 at 1511, Note to RN: Do not discontinue this anes thesia order until 24 hours after epidural infusion discontinued. Instructions for restarting OR initiating anticoagulation therapy: IF HIGHER dose Low molecular we ight heparin (LMWH) (Enoxaparin (LOVENOX) 1 mg/kg SQ twice daily or 1.5 mg/kg SQ onc e daily; dalteparin (FRAGMIN) 120 units/kg SQ twice daily or 200 units/kg SQ once daily): Wait at LEAST 24 hours after the neuraxial procedure and at LEAST 4 hours after epidura l catheter removal before initiating or restarting LMWH therapy. F or any other medications, please consult anesthesia for recommendations on resuming antiplatele t or anticoagulation medications post neuraxial placement or epidural catheter removal., Intra + Post IF intravenous (IV) Unfractionated hepar in (UFH) ordered SEE ADMIN INSTRUCTIONS, Starting on Tue05/29/21 at 1515, Until Tue05/31/21 at 1511, NOTE to RN: Do not discontinue this anes thesia order until 24 hours after epidural infusion discontinued. Instructions for restarting OR initiating anticoagulation therapy: IF IV Unfractionated Heparin (U FH): IF Restarting anticoagulation - Wait at LEAST 1 hour after neuraxial block (i f no signs of hemorrhage) before initiating or restarting anticoagulation IF IV Unfract ionated Heparin (UFH) currently infusing: stop the infusion fo r at LEAST 4 hours, ensure normalization of the PTT BEFORE catheter REMOVAL. Anticoa gulation may be resumed GREAT than or EQUAL to 1 hour after catheter removal. For any other medica tions, please consult anesthesia for recommendations on resuming antiplatele t or anticoagulation medications post neuraxial placement or epidural catheter removal., Intra + Post IF LOW-dose Low molecular weight heparin (LMWH) thromboprophylaxis ordered SEE ADMIN INSTRUCTIONS, Starting on Tue05/29/21 at 1515, Until 05/31/21 at 1511, NOTE to RN: Do not discontinue this anes thesia order until 24 hours after epidural infusion discontinued. Instructions for restarting OR initiating anticoagulation therapy: IF LOW-dose Low molecular weight heparin (LMW H) thromboprophylaxis (Enoxaparin (LOVENOX) LESS than or EQUAL to 40 mg SQ once daily or 30 mg SQ twice daily, or dalteparin (FRAGMIN) 5000 unit s SQ once daily): Wait at LEAST 12 hours after the neuraxial procedure and at LEAST 4 hours aft er the epidural catheter removal before initiating or restarting LMWH thrombopr ophylaxis. For any other medications, please consult anesthesia f or recommendations on resuming antiplatelet or anticoagulation medications post neuraxial placemen t or epidural catheter removal., Intra + Post IF subcutaneous (SQ) Unfractionated hepa rin (UFH) ordered for thromboprophylaxis SEE ADMIN INSTRUCTIONS, Starting on Tue05/29/21 at 1515, Until Tue05/31/21 at 1511, NOTE to RN: Do not discontinue this anes thesia order until 24 hours after epidural infusion discontinued. Instructions for restarting OR initiating anticoagulation therapy: IF SQ Unfractionated Heparin (U FH) ordered for thromboprophylaxis: Wait at LEAST 1 hour after neuraxial procedure ( if no signs of hemorrhage) and at LEAST 1 hour after epidural catheter removal before initiating or restarting thromboprophylaxis. For any other medications, please consult anesthesia for recommendations on resuming antiplatelet or anticoagul ation medications post neuraxial placement or epidural catheter removal., Int ra + Post ketorolac (TORADOL) injection 30 mg 30 mg, Intravenous, ONCE PRN, other, for mild to moder ate pain, Starting on Tue05/29/21 at 1517, For 5 days, Give immedi ately x 1 dose. Any patient with renal function concerns should have a serum creatinine drawn and creatinine clearance calculated. If creatinine joaquín luis manuel is 30-50 ml/min give 15 mg, if less than 30 ml/min do not administer ketorol ac. Can cause pain on injection. If ordered intravenously (IV) : administer through a running maintenance fluid over 1 minute followed by a flush. If patient complain s of pain on injection, may dilute 15-30 mg in 5 mL and push over 1 to 2 minutes. , ketorolac (TORADOL) injection 30 mg 30 mg, Intramuscular, ONCE PRN, other, f or mild to moderate pain, Starting on Tue05/29/21 at 1517, For 5 days, Give 30-60 minutes post p rocedure x 1 dose. Any patient with renal function concerns should have a ser um creatinine drawn and creatinine clearance calculated. If crea tinine clearance is 30-50 ml/min give 15 mg, if less than 30 ml/min do not administer ketorolac . Can cause pain on injection. If ordered intravenously (IV) : administer through a running maintenance fluid over 1 minute followed by a flush. If patient complains of pain on injection, may dilute 15-30 mg in 5 mL and push over 1 to 2 minut es. , lactated ringers BOLUS 1,000 New Bag 05/28/2021 11:50 AM CDT 1 ,000 mLs 1000 mL/hr mL Intravenous, 1,000 mL, ONCE, at 1,000 mL/hr, Administer over 1 Hours, On Mimi 05/28/21 at 1130, For 1 dose lactated ringers BOLUS 1,000 mL Intravenous, 1,000 mL, ONCE PRN, IF patient to have ep idural or intrathecal narcotics and NOT pre-eclamptic, Startin g on Tue05/29/21 at 1517, For 1 dose, IV bolus must be initiated 15-30 min prior to epidural or intrathecal, then IV fluids per labor orders. Nurse may discontinue this order if duplicate., Intrapartum lactated ringers BOLUS 250 mL Intravenous, 250 mL, ONCE PRN, other, hy potension, Starting on Tue05/29/21 at 1515, For 1 dose, If no improvement in Blood Pressure with r epositioning(if ordered), administer IV bolus as ordered. Treat for Systolic Blo od Pressure less than 100 mmHg or drop in Blood Pressure by 20%. I f unresponsive to Fluid Bolus, administer ePHEDrine OR phenylephrine (JEAN PAUL-SYNEPHRINE) [if ordere d] or page Anesthesia., Intrapartum lactated ringers BOLUS 500 mL New Bag 05/29/2021 1:08 PM CDT 500 mLs Intravenous, 500 mL, ONCE, On Tue05/29/21 at 1330, For 1 dose lactated ringers BOLUS 500 mL Intravenous, 500 mL, ONCE PRN, IF patien t to have epidural or intrathecal narcotics AND patient is pre-eclamptic. , Starting on Tue 1 at 1517, For 1 dose, IV bolus must be initiated 15-30 min prior to epidural or intrathecal IF pre-eclamptic, then IV fluids per labor orders. Nurse may discontinue this order if duplicate., Intrapartum levothyroxine (SYNTHROID/LEVOTHROID) tablet Given 05/11 8:32 AM CDT 100 mcg 100 mcg 100 mcg, Oral, EVERY MORNING BEFORE BREAKFAST, First dose on Tue05/29/21 at 0730, Separate oral administration of iron- or calcium-containing products and levothyroxine by at least 4 hours. Given 05/30/2021 9:01 AM CDT 100 mcg Given 05/29/2021 8:03 AM CDT 100 mcg levothyroxine (SYNTHROID/LEVOTHROID) tablet Given 05/31/2021 8:31 AM CDT 88 mcg 88 mcg 88 mcg, Oral, EVERY MORNING BEFORE BREAKFAST, First dose on Tue05/29/21 at 0730, Separate oral administration of iron- or calcium-containing products and levothyroxine by at least 4 hours. Given 05/30/2021 9:01 AM CDT 88 mcg Given 05/29/2021 7:50 AM CDT 88 mcg medication instruction CONTINUOUS PRN, Starting on Tue05/29/21 at 1515, Until 05/31/21 at 1511, -All epidural medications must be preservativ e free -All orders must be compounded in preservative free Normal Saline -Absolut rosa no anticoagulants, thrombolytics, or antiplatelet medications or other opioid analgesics or other sedatives without prior notification of Anesthesia Service -All patients who receive epidural medications must have IV access., Intrapartum metFORMIN (GLUCOPHAGE) tablet 1,000 mg Given 05/30/2021 9:40 PM CDT 1,000 mg 1,000 mg, Oral, DAILY WITH SUPPER, First dose on Mimi 05/28/21 at 1930, If the patient receives intravenous, iodinated contrast and patient GFR is greater than 60 mL/min/1.7m2, continue metformin. Contact provider for 'hold' or 'no hold' instructions if no GFR or if GFR is less than 60 mL/min/1.7m2. Given 05/29/2021 9:38 PM CDT 1,000 mg Given 05/28/2021 10:08 PM CDT 1,000 mg metoclopramide (REGLAN) injection 10 mg 10 mg, Intravenous, Administer over 2 Mi nutes, EVERY 6 HOURS PRN, nausea, vomiting, Starting on Tue05/29/21 at 1517, This is Step 1 of OB nausea and vomiting management. If nausea is not resolved in 30 minutes, go to Step 2 (Zofran). Avoid use if patient has full bowel obstructio n or perforation. Irritant. For ordered IV doses 1-10 mg, give IV Push undiluted over 2 minutes., Intrapartum metoclopramide (REGLAN) tablet 10 mg 10 mg, Oral, EVERY 6 HOURS PRN, nausea and vomiting, S tarting on Tue05/29/21 at 1517, This is Step 1 of OB nausea and vomiting managem ent. If nausea is not resolved in 30 minutes, go to Step 2 (Zo lisa) Avoid use if patient has full bowel obstruction or perforation., Intrapartum misoprostol (CYTOTEC) tablet 400 mcg 400 mcg, Oral, GIVE ONCE PRN AND REPEAT ACCORDING TO I NSTRUCTIONS, post- hemorrhage, Starting on Tue05/29/21 at 1517, Administe r only if directed by provider. Max administrations: 4 doses, Intrapartum misoprostol (CYTOTEC) tablet 800 mcg 800 mcg, Rectal, GIVE ONCE PRN AND REPEA T ACCORDING TO INSTRUCTIONS, post- hemorrhage, Starting on Tue05/29/21 at 1 517, Give rectally if unable to take oral without complications. Administer only if directed by provider. Max administrations: 4 doses., Intrapartum Morphine Sulfate (PF) injection 10 mg Given 05/29/2021 11:01 PM CDT 10 mg 10 mg, Intramuscular, ONCE, On Tue05/29/21 at 2200, For 1 dose, For ordered IV doses 0.1-15 mg give IV Push undiluted over 4-5 minutes. naloxone (NARCAN) injection 0.2 mg 0.2 mg, Intravenous, EVERY 2 MIN PRN, op ioid reversal, Starting on Tue05/29/21 at 1517, Administer intravenous route when available and notify provider when administered. For unintended sedation or respiratory depression if all of the below criteria are met: ~ respiratory rate LES S than or EQUAL to 8. ~SaO2 less than 92% and or/end-tidal CO2 is greater than 50. ~ the patient is receiving an opioid, has unintended sedations assessed as RASS (-3), and is cur rently not on mechanical ventilation. RASS scale moderate (-3) is movement or eye opening to voice but no eye contact. Patient Monitoring Once the patient has demonstrated a response to the naloxone, continue to monitor respiratory rate, depth, oxygen saturation and end-tidal CO2 (if available) every 15 mi nutes x 2, then every 30 minutes x 2, then every 1 hour x 1 after each naloxone dose. Consider tr ansfer to ICU if patient respiratory parameters have not improved after 4 nalox one doses. For ordered IV doses 0.1-2mg give IVP. Give each 0.4mg over 15 seconds in emergency situations. For non-emergent situations further dilu te in 9mL of NS to facilitate titration of response., Intrapartum naloxone (NARCAN) injection 0.2 mg 0.2 mg, Intramuscular, EVERY 2 MIN PRN, opioid reversal, Starting on Tue05/29/21 at 1517, Administer intramuscular if an int ravenous route is not available and notify provider when administered. For unintend ed sedation or respiratory depression if all of the below criteria are met: ~ respiratory rate LESS than or EQUAL to 8. ~SaO2 less than 92% and or/end-tidal CO2 is greater th an 50. ~ the patient is receiving an opioid, has unintended sedations assessed as RASS (-3), and is currently not on mechanical ventilation. RASS scale moderate (-3) is movement or eye opening to voice but no eye contact. Patient Monitoring Once the patient has demonstrated a response to the naloxone, continue to m onitor respiratory rate, depth, oxygen saturation and end-tidal CO2 (if availab le) every 15 minutes x 2, then every 30 minutes x 2, then every 1 hour x 1 after each naloxone dose. Consider transfer to ICU if patient respiratory parameters have not improved after 4 naloxone doses. For ordered IV doses 0.1-2mg give IVP. Give each 0.4mg over 15 seconds in emergency situations. For non -emergent situations further dilute in 9mL of NS to facilitate titration of response., Intrapartu m naloxone (NARCAN) injection 0.4 mg 0.4 mg, Intravenous, EVERY 2 MIN PRN, op ioid reversal, Starting on Tue05/29/21 at 1517, Administer intravenous route when available and notify provider when administered. For unintended sedation or respiratory depression if all of the below criteria are met: ~ respiratory rate LES S than or EQUAL to 8. ~ SaO2 less than 92% and or/end-tidal CO2 is greater than 50. ~ the patient is receiving an opioid, has unintended sedation assessed as RASS (-4 ) or (-5) and patient is currently not on mechanical ventilation. RASS scale (-4) is deep sedation with no response to voice but movement or eye opening to physical stimulation. R ASS scale (-5) is unarousable. Patient Monitoring Once the patient has demonstrated a response to the naloxone, continue to monitor respiratory rate, depth, oxygen saturation and end-tidal CO2 (if available) every 15 mi nutes x 2, then every 30 minutes x 2, then every 1 hour x 1 after each naloxone dose. Consider tr ansfer to ICU if patient respiratory parameters have not improved after 4 nalox one doses. For ordered IV doses 0.1-2mg give IVP. Give each 0.4mg over 15 seconds in emergency situations. For non-emergent situations further dilu te in 9mL of NS to facilitate titration of response., Intrapartum naloxone (NARCAN) injection 0.4 mg 0.4 mg, Intramuscular, EVERY 2 MIN PRN, opioid reversal, Starting on Tue05/29/21 at 1517, Administer intramuscular if an int ravenous route is not available and notify provider when administered. For unintend ed sedation or respiratory depression if all of the below criteria are met: ~ res piratory rate LESS than or EQUAL to 8. ~ SaO2 less than 92% and or/end-tidal CO2 is greater ozzie n 50. ~ the patient is receiving an opioid, has unintended sedation assessed as RASS (-4) or (-5) and patient is currently not on mechanical ventilation. RA SS scale (-4) is deep sedation with no response to voice but movement or eye opening to physical stimulation. RASS scale (-5) is unarousa ble. Patient Monitoring Once the patient has demonstrated a response to the nalox one, continue to monitor respiratory rate, depth, oxygen saturation and end-tidal CO2 (if availab le) every 15 minutes x 2, then every 30 minutes x 2, then every 1 hour x 1 after each naloxone dose. Consider transfer to ICU if patient respiratory parameters have not improved after 4 naloxone doses. For ordered IV doses 0.1-2mg give IVP. Give each 0.4mg over 15 seconds in emergency situations. For non -emergent situations further dilute in 9mL of NS to facilitate titration of response., Intrapartu m ondansetron (ZOFRAN) injection 4 mg 4 mg, Intravenous, EVERY 6 HOURS PRN, nausea, vomiting , Administer over 2-5 Minutes, Starting on Tue05/29/21 at 1517 , This is Step 2 of OB nausea and vomiting management. Give if nausea not resolved 30 minutes aft er giving metoclopramide (REGLAN). If nausea is not resolved in 15 minutes, go to Step 3 (Compazine). Irritant. For ordered IV doses 0.1-4 mg, give IV Push undiluted over 2-5 minutes., Intrapartum ondansetron (ZOFRAN-ODT) ODT tab 4 mg 4 mg, Oral, EVERY 6 HOURS PRN, nausea, v omiting, Starting on Tue05/29/21 at 1517, This is Step 2 of OB nausea and vomiting management. Give If nausea not resolved in 30 minutes after giving metoclopramide ( REGLAN). If nausea is not resolved in 15 minutes, go to Step 3 (Compazine). With dry hands, pee l back foil backing and gently remove tablet. Do not push oral d isintegrating tablet through foil backing. Administer immediately on tongue and oral disintegrati ng tablet dissolves in seconds, then swallow with saliva. Liquid not required ., Intrapartum Opioid plan - medication inst ruction CONTINUOUS PRN, Starting on Tue05/29/21 at 1515, Until 05/31/21 at 1511, May give opioids (NOT Sedatives) as ordered by OB provider when patient meets parameters: respirations greater than 14 breaths per m inute, is NOT somnolent, oxygen saturation is greater than 95%, pain inadequate ly controlled with other adjuvant medications. May give other med ications per OB provider orders., Intra + Post prochlorperazine (COMPAZINE) injection 1 0 mg 10 mg, Intravenous, EVERY 6 HOURS PRN, n ausea, vomiting, Administer over 2 Minutes, Starting on Tue05/29/21 at 1517, This is Step 3 of OB nausea and vomiting management. Give if nausea not resolved 15 minutes aft er giving ondansetron (ZOFRAN). If nausea is not resolved in 3 0 minutes, notify provider. For ordered IV doses 0.1-10 mg, give IV push undiluted, each 5 mg ove r 1 minute., Intrapartum prochlorperazine (COMPAZINE) suppository 25 mg 25 mg, Rectal, EVERY 12 HOURS PRN, nausea, vomiting, S tarting on Tue05/29/21 at 1517, This is Step 3 of OB nausea and vomiting managem ent. Give if nausea not resolved 15 minutes after giving ondanse mayank (ZOFRAN). If nausea is not resolved in 30 minutes, notify provider., Intrapartum prochlorperazine (COMPAZINE) tablet 10 m g 10 mg, Oral, EVERY 6 HOURS PRN, nausea, vomiting, Starting on Tue05/29/21 at 1517, This is Step 3 of OB nausea and vomiting management. Give if nausea not resolved 15 minutes after giving ondansetron (ZOFRAN ). If nausea is not resolved in 30 minutes, notify provider., Intrapartum sodium chloride (PF) 0.9% PF flush 10 mL Given 05/31/2021 8:34 AM CDT 10 mLs 10 mL, Intravenous, EVERY 8 HOURS, First dose on 05/30/21 at 1630 Given 05/31/2021 6:23 AM CDT 3 mLs Given 05/30/2021 9:42 PM CDT 3 mLs sodium chloride (PF) 0.9% PF flush 3 mL Given 05/29/2021 6:51 AM CDT 3 mLs 3 mL, Intracatheter, EVERY 8 HOURS, First dose on Mimi 05/28/21 at 1330, to lock peripheral IV dormant line, OB Preadmission Given 05/28/2021 10:09 PM CDT 3 mLs venlafaxine (EFFEXOR-XR) 24 hr capsule 1 50 mg Given 05/31/2021 8:33 AM CDT 150 mg 150 mg, Oral, DAILY WITH BREAKFAST, First dose on Tue05/29/21 at 0900, DO NOT CRUSH. Given 05/30/2021 9:02 AM CDT 150 mg Given 05/29/2021 7:51 AM CDT 150 mg venlafaxine (EFFEXOR-XR) 24 hr capsule 7 5 mg Given 05/31/2021 8:33 AM CDT 75 mg 75 mg, Oral, DAILY WITH BREAKFAST, First dose on Tue05/29/21 at 0900, DO NOT CRUSH. Given 05/30/2021 9:02 AM CDT 75 mg Given 05/29/2021 7:50 AM CDT 75 mg documented in this encounter Active and Recently Administered Medications Times are shown in CDT. Scheduled Medication Order 05/29/2021 05/30/2021 05/31/2021 fentaNYL (SUBLIMAZE) 2 mcg/mL, bupivacai ne (MARCAINE) 0.125% in NS premix for PCEA 2038 (Canceled Entry - Provider: Alia Smith RN)2103 (Canceled Entry - Provider: Alia Smith RN) 162 (Hold - Provider: Shital Barone N - Reason: Other)162 (Hold - Provider: Carmen Patterson RN - Reason: Other)234 (Canceled Entry - Provider: Alia Smith RN) 0830 (Hold - Provider: Shital Barone N - Reason: Other)1400 (Canceled Entry - Provider: Orders Generic Provider - Comment: Automatically canceled at discontinue of medication order) PCEA dose (mL): 5, PCEA Lockout interval (min): 15 minutes, Hour Limit (mL): 25, Continuous Rate (Basal Rate) (mL/hr): 10, Absolutely no anticoagulants, thrombolytics or antiplatelet medications or othe r opioid analgesics or other sedatives w ithout prior notification of anesthesiology. For CADD cassettes, pharmacy to send epidural tubing set., Routine hydrOXYzine (ATARAX) tablet 100 mg (COMPLETED) 2301 (G iven - Provider: Alia Smith RN) 100 mg, Oral, ONCE, On Tue05/29/21 at 2200, For 1 dose IF HIGHER-dose Low molecular weight hepa rin (LMWH) thromboprophylaxis ordered(Linked Group 1) SEE ADMIN INSTRUCTIONS, Starting on Tue05/29/21 at 1515, Until Tue05/31/21 at 1511, Note to RN: Do not discontinue this anesthesia order until 24 hours after epidural infusion discontinued. Instructions for restarting OR initiating anticoagul ation therapy: IF HIGHER dose Low molecular weight heparin (LMWH) (Enoxaparin (LOVENOX) 1 mg/kg SQ twice daily or 1.5 mg/kg SQ once daily; dalteparin (FRAGMIN) 12 0 units/kg SQ twice daily or 200 units/k g SQ once daily): Wait at LEAST 24 hours after the neuraxial procedure and at LEAST 4 hours after epidural catheter removal before initiating or restarting LMWH t herapy. For any other medications, pleas e consult anesthesia for recommendations on resuming antiplatelet or anticoagulation medications post neuraxial placement or epidural catheter removal., Intra + Post IF intravenous (IV) Unfractionated heparin (UFH) ordered(Linked Group 1) SEE ADMIN INSTRUCTIONS, Starting on Tue05/29/21 at 1515, Until Tue05/31/21 at 1511, NOTE to RN: Do not discontinue this anesthesia order until 24 hours after epidural infusion discontinued. Instructions for restarting OR initiating anticoagul ation therapy: IF IV Unfractionated Heparin (UFH): IF Restarting anticoagulation - Wait at LEAST 1 hour after neuraxial block (if no signs of hemorrhag e) before initiating or restarting antic oagulation IF IV Unfractionated Heparin (UFH) currently infusing: stop the infusion for at LEAST 4 hours, ensure normalization of the PTT BEFORE catheter REMOVAL. Anticoagulation may be resumed GREAT th an or EQUAL to 1 hour after catheter removal. For any other medications, please consult anesthesia for recommendations on resuming antiplatelet or anticoagulation medications post neuraxial placement or epidural catheter removal., Intra + Post IF LOW-dose Low molecular weight heparin (LMWH) thromboprophylaxis ordered(Linked Group 1) SEE ADMIN INSTRUCTIONS, Starting on Tue05/29/21 at 1515, Until [place] 05/31/21 at 1511, NOTE to RN: Do not discontinue this anesthesia order until 24 hours after epidural infusion discontinued. Instructions for restarting OR initiating anticoagul ation therapy: IF LOW-dose Low molecular weight heparin (LMWH) thromboprophylaxis (Enoxaparin (LOVENOX) LESS than or EQUAL to 40 mg SQ once daily or 30 mg SQ twic e daily, or dalteparin (FRAGMIN) 5000 un its SQ once daily): Wait at LEAST 12 hours after the neuraxial procedure and at LEAST 4 hours after the epidural catheter removal before initiating or restarting LMWH thromboprophylaxis. For any other m edications, please consult anesthesia for recommendations on resuming antiplatelet or anticoagulation medications post neuraxial placement or epidural catheter removal., Intra + Post IF subcutaneous (SQ) Unfractionated hepa rin (UFH) ordered for thromboprophylaxis(Linked Group 1) SEE ADMIN INSTRUCTIONS, Starting on Tue05/29/21 at 1515, Until Tue05/31/21 at 1511, NOTE to RN: Do not discontinue this anesthesia order until 24 hours after epidural infusion discontinued. Instructions for restarting OR initiating anticoagul ation therapy: IF SQ Unfractionated Heparin (UFH) ordered for thromboprophylaxis: Wait at LEAST 1 hour after neuraxial procedure (if no signs of hemorr amalia) and at LEAST 1 hour after epidural catheter removal before initiating or restarting thromboprophylaxis. For any other medications, please consult anesthesia for recommendations on resuming antipla telet or anticoagulation medications pos t neuraxial placement or epidural catheter removal., Intra + Post lactated ringers BOLUS 500 mL (COMPLETED) 1308 ([place] - Provider: Martina Vasquez RN) Intravenous, 500 mL, ONCE, On Tue05/29/21 at 1330, For 1 dose levothyroxine (SYNTHROID/LEVOTHROID) tablet 100 mcg 07 50 (Not Given - Provider: Martina Vasquez RN - Reason: Other - Comment: fell on floor)0803 (Given - Provider: Martina Vasquez RN) 0901 (Given - Provider: Carmen Patterson RN) 0832 (Given - Provider: Carmen Patterson RN) 100 mcg, Oral, EVERY MORNING BEFORE GERALDO KFAST, First dose on Tue05/29/21 at 0730, Separate oral administration of iron- or calcium-containing products and levothyroxine by at least 4 hours. levothyroxine (SYNTHROID/LEVOTHROID) tablet 88 mcg 075 0 (Given - Provider: Martina Vasquez RN) 0901 (Given - Provider: Carmen Patterson RN) 0831 (Give n - Provider: Carmen Patterson RN) 88 mcg, Oral, EVERY MORNING BEFORE BREAK FAST, First dose on Tue05/29/21 at 0730, Separate oral administration of iron- or calcium-containing products and levothyroxine by at least 4 hours. metFORMIN (GLUCOPHAGE) tablet 1,000 mg 2137 (Given - P rovider: Alia Smith RN) 2139 (Given - Provider: Alia Smith RN - Comment: yari young error) 1,000 mg, Oral, DAILY WITH SUPPER, First dose on Tue05/28/21 at 1930, If the patient receives intravenous, iodinated contrast and patient GFR is greater than 60 mL/min/1.7m2, continue metformin. Contact provider for 'hold' or 'no hold' instru ctions if no GFR or if GFR is less than 60 mL/min/1.7m2. Morphine Sulfate (PF) injection 10 mg (COMPLETED) 2300 (Given - Provider: Alia Smith RN) 10 mg, Intramuscular, ONCE, On Tue at 2200, For 1 dose, For ordered IV doses 0.1-15 mg give IV Push undiluted over 4-5 minutes. sodium chloride (PF) 0.9% PF flush 10 mL 0800 (Given - Provider: Carmen Patterson RN)1626 (Given - Provider: Carmen Patterson, LADONNA)1920 (Canceled Entry - Provider: Alia Smith, LADONNA)2142 (Given - Provider: Alia Smith, RN) 0623 (Given - Provider: Alia Smith, RN)0834 (Given - Provider: Carmen Patterson, LADONNA)1330 (Canceled Entry - Provider: Orders Generic Provider - Comment: Automatically canceled at discontinue of medication order) 10 mL, Intravenous, EVERY 8 HOURS, First dose on 05/30/21 at 1630 sodium chloride (PF) 0.9% PF flush 3 mL (CANCELED) 065 1 (Given - Provider: Ana Mendieta RN - Comment: Forgot to scan)1330 (Canceled Entry - Provider: Laury Waters MD - Comment: Automatically canceled at discontinue of medication order) 3 mL, Intracatheter, EVERY 8 HOURS, Firs t dose on Mimi 05/28/21 at 1330, to lock peripheral IV dormant line, OB Preadmission venlafaxine (EFFEXOR-XR) 24 hr capsule 150 mg(Linked G roup 2) 0751 (Given - Provider: Martina Vasquez RN)1721 (Canceled Entry - Provider: Martina Vasquez RN) 0902 (Given - Provider: Carmen Patterson RN) 0833 (Give n - Provider: Carmen Patterson RN) 150 mg, Oral, DAILY WITH BREAKFAST, Firs t dose on Tue05/29/21 at 0900, DO NOT CRUSH. venlafaxine (EFFEXOR-XR) 24 hr capsule 75 mg(Linked Gr oup 2) 0750 (Given - Provider: Martina Vasquez RN)1721 (Canceled Entry - Provider: Martina Vasquez RN) 0902 (Given - Provider: Carmen Patterson, LADONNA) 0833 (Give n - Provider: Carmen Patterson RN) 75 mg, Oral, DAILY WITH BREAKFAST, First dose on Tue05/29/21 at 0900, DO NOT CRUSH. Continuous Medication Order 05/29/2021 05/30/2021 05/31/2021 sodium chloride 0.9% infusion 1721 (Canceled Entry - P rovider: Martina Vasquez RN) 1621 (Not Given - Provider: Carmen Patterson RN - Reaso n: Other) at 10 mL/hr, Intravenous, CONTINUOUS, Ca rrier fluid for insulin infusion to ensure insulin infusion delivery. Piggyback insulin infusion tubing into carrier fluid port closest to vascular catheter inser tion site., Intrapartum, Starting on Tue05/29/21 at 1530, Until Tue05/31/21 at 1511 PRN Medication Order 05/29/2021 05/30/2021 05/31/2021 carboprost (HEMABATE) injection 250 mcg 250 mcg, Intramuscular, EVERY 15 MIN PRN , ONLY for uterine atony with significant bleeding POST-DELIVERY, Starting on Tue05/29/21 at 1517, Notify provider IF uterine atony and clarify with provider medi cation preference. Administer only if di rected by provider. Give with caution in patients with asthma, active pulmonary, hepatic, renal or cardiovascular disease., Intrapartum dextrose 50 % injection 25-50 mL(Linked Group 3) 25-50 mL, Intravenous, EVERY 15 MIN PRN, low blood sugar, Administer over 1-5 Minutes, Starting on Tue05/29/21 at 1517, Use if have IV access, BG less than 70 mg/dL and meet dose criteria below: Dose if conscious and alert (or disorientated) and NPO = 25 mL Dose if unconscious / not alert = 50 mL Give first dose for initial blood glucose less than 70 mg/dL. If blood glucose at 15 minute recheck is les s than or equal to 80 mg/dL continue to administer carbohydrate treatment every 15 minutes, as needed, based on blood glucose and assessment parameters until blood glucose level is above 80 mg/dL. Vesic ant. For ordered doses up to 25 g, give IV Push undiluted. Give each 5g over 1 minute., Intrapartum ePHEDrine injection 5 mg 5 mg, Intravenous, EVERY 3 MIN PRN, if S ystolic Blood Pressure less than 100 mmHg, Starting on Tue05/29/21 at 1515, IF patient remains hypotensive (Systolic Blood Pressure less than 100 mmHg) AFTER the 4 dose, notify Anesthesia. Notify Anesth esia PRIOR to administering additional doses., Intrapartum fentaNYL (PF) (SUBLIMAZE) injection 50-100 mcg 1708 (G iven - Provider: Martina Vasquez RN)1820 (Given - Provider: Martina Vasquez RN) 50-100 mcg, Intravenous, EVERY 1 HOUR [place] N, other, desired pain relief based on labor coping/body mass index/labor assessment., Starting on Tue05/29/21 at 1520, Start at the lowest dose or may give highe r initial dose if labor coping/assessmen t warrants or as directed by provider. May adjust subsequent doses as needed for pain control based on patient response to first dose or labor coping. Hold dose f or analgesic side effects. Notify provid er to assess for uncontrolled pain or analgesic side effects. If maximum total dose of 200 mcg in 2 hour period is given, contact Provider for further orders. Max imum total dose of 400 mcg over an 8 ladarius r period. If respiratory rate LESS THAN 8 or maternal HR LESS THAN 50, call Provider. For ordered IV doses 1-100 mcg give IV Push undiluted over a minimum of 3-5 minutes., Intrapartum glucagon injection 1 mg(Linked Group 3) 1 mg, Subcutaneous, EVERY 15 MIN PRN, lo w blood sugar, May repeat x 1 only, Starting on Tue05/29/21 at 1517, May give SQ or IM. ONLY use glucagon IF patient has NO IV access AND is UNABLE to swallow AND blood glucose is LESS than or EQUAL to 50 mg/dL. If ordered IV, give IV Push over 1 minute. Reconstitute with 1mL sterile water., Intrapartum glucose gel 15-30 g(Linked Group 3) 15-30 g, Oral, EVERY 15 MIN PRN, low blo od sugar, Starting on Tue05/29/21 at 1517, Give first dose for initial blood glucose less than 70 mg/dL per the dosing instructions below. If blood glucose at 15 minute rechecks is still less than or eq ual to 80 mg/dL, continue to administer doses per blood glucose parameters every 15 minutes, as needed, until blood glucose level is above 80 mg/dl. Dosing Instru ctions: If patient is conscious and able to swallow For initial BG 51-69 mg/dL OR 15 minute recheck BG 51- 80 mg/dL - give 15 g For BG less than or equal to 50 mg/dL - give 30 g ~Oral gel is preferable for conscious and able to swallow patien t. ~IF gel unavailable or patient refuses may provide apple juice as follows: Apple juice dosing instructions. For initial BG 51-69 mg/dL OR 15 minute recheck BG 51- 80 mg/dL - give apple juice 120 mL ( 4 oz or 15 g of CHO). For BG less than or equal to 50 mg/dL - Give apple juice 240 mL (8 oz or 30 g of CHO). Document juice on I and O flowsheet., Intrapartum hydrOXYzine (ATARAX) tablet 100 mg(Linked Group 4) 2308 (Given - Provider: Alia Smtih RN) 100 mg, Oral, AT BEDTIME PRN, other, sleep, Starting on Sat 05/30 at 194 hydrOXYzine (ATARAX) tablet 50 mg(Linked Group 4) 2308 (See Alternative - Provider: Alia Smith RN) 50 mg, Oral, AT BEDTIME PRN, other, sleep, Starting on Sat at 194 ibuprofen (ADVIL/MOTRIN) tablet 600 mg(Linked Group 5) 600 mg, Oral, ONCE PRN, other, For mild to moderate pain., Starting on Tue05/29/21 at 1517, For 5 days, Give 30-60 minutes post procedure x 1 dose. Do not give within 6 hours of ketorolac dose. Give with food., insulin regular (HumuLIN R,NovoLIN R) infusion (1 unit/mL) ADULT /PEDS Intravenous, CONTINUOUS PRN, Start infus ion if blood glucose greater than or equal to 110 mg/mL, Starting on Tue05/29/21 at 1517, Notify provider if blood glucose has not decreased by 40 mg/dL or does n ot meet target range (60-109 mg/dL) with in 2 hours. BLOOD GLUCOSE LEVEL (mg/dL) INSULIN (units/hr) 60-109 0 unit/hr 110-140 1 unit/hr 141-180 1.5 units/hr 181- 220 2 units/hr greater than 220 2.5 units/hr, Intrapartum ketorolac (TORADOL) injection 30 mg(Linked Group 5) 30 mg, Intravenous, ONCE PRN, other, for mild to moderate pain, Starting on Tue05/29/21 at 1517, For 5 days, Give immediately x 1 dose. Any patient with renal function concerns should have a serum creatinine drawn and creatinine cl earance calculated. If creatinine clearance is 30-50 ml/min give 15 mg, if less than 30 ml/min do not administer ketorolac. Can cause pain on injection. If ordere d intravenously (IV) : administer throug h a running maintenance fluid over 1 minute followed by a flush. If patient complains of pain on injection, may dilute 15-30 mg in 5 mL and push over 1 to 2 minutes. , ketorolac (TORADOL) injection 30 mg(Linked Group 5) 30 mg, Intramuscular, ONCE PRN, other, f or mild to moderate pain, Starting on Tue05/29/21 at 1517, For 5 days, Give 30-60 minutes post procedure x 1 dose. Any patient with renal function concerns should have a serum creatinine drawn and creat inine clearance calculated. If creatinine clearance is 30-50 ml/min give 15 mg, if less than 30 ml/min do not administer ketorolac. Can cause pain on injection. I f ordered intravenously (IV) : administe r through a running maintenance fluid over 1 minute followed by a flush. If patient complains of pain on injection, may dilute 15-30 mg in 5 mL and push over 1 to 2 minutes. , lactated ringers BOLUS 1,000 mL(Linked Group 6) Intravenous, 1,000 mL, ONCE PRN, IF aniceto ent to have epidural or intrathecal narcotics and NOT pre-eclamptic, Starting on Tue05/29/21 at 1517, For 1 dose, IV bolus must be initiated 15-30 min prior to ep idural or intrathecal, then IV fluids pe r labor orders. Nurse may discontinue this order if duplicate., Intrapartum lactated ringers BOLUS 250 mL Intravenous, 250 mL, ONCE PRN, other, hy potension, Starting on Tue05/29/21 at 1515, For 1 dose, If no improvement in Blood Pressure with repositioning(if ordered), administer IV bolus as ordered. Treat for Systolic Blood Pressure less than 10 0 mmHg or drop in Blood Pressure by 20%. If unresponsive to Fluid Bolus, administer ePHEDrine OR phenylephrine (JEAN PAUL- SYNEPHRINE) [if ordered] or page Anesthesia., Intrapartum lactated ringers BOLUS 500 mL(Linked Group 6) Intravenous, 500 mL, ONCE PRN, IF patien t to have epidural or intrathecal narcotics AND patient is pre-eclamptic. , Starting on Tue05/29/21 at 1517, For 1 dose, IV bolus must be initiated 15-30 min prio r to epidural or intrathecal IF pre-ecla mptic, then IV fluids per labor orders. Nurse may discontinue this order if duplicate., Intrapartum lidocaine 1 % 0.1-20 mL 0.1-20 mL, Subcutaneous, ONCE PRN, episi otomy/laceration repair, Starting on Tue05/29/21 at 1517, For 1 dose, Available for provider administration after delivery., medication instruction CONTINUOUS PRN, Starting on Tue05/29/21 at 1515, Until Tue05/31/21 at 1511, -All epidural medications must be preservative free -All orders must be compounded in preservative free Normal Saline -Absolut rosa no anticoagulants, thrombolytics, or antiplatelet medications or other opioid analgesics or other sedatives without prior notification of Anesthesia Service -All patients who receive epidural medications must have IV access., Intrapartum methylergonovine (METHERGINE) injection 200 mcg 200 mcg, Intramuscular, EVERY 2 HOURS AZ N, ONLY for uterine atony with significant bleeding POST-DELIVERY, Starting on Tue05/29/21 at 1517, Notify provider IF uterine atony and clarify with provider med ication preference. Administer only if d irected by provider. Contraindicated if Blood Pressure greater than 140/90, preeclampsia, or hypertension., Intrapartum metoclopramide (REGLAN) injection 10 mg(Linked Group 7) 10 mg, Intravenous, Administer over 2 Mi nutes, EVERY 6 HOURS PRN, nausea, vomiting, Starting on Tue05/29/21 at 1517, This is Step 1 of OB nausea and vomiting management. If nausea is not resolved in 30 minutes, go to Step 2 (Zofran). Avoid us e if patient has full bowel obstruction or perforation. Irritant. For ordered IV doses 1-10 mg, give IV Push undiluted over 2 minutes., Intrapartum metoclopramide (REGLAN) tablet 10 mg(Linked Group 7) 10 mg, Oral, EVERY 6 HOURS PRN, nausea a nd vomiting, Starting on Tue05/29/21 at 1517, This is Step 1 of OB nausea and vomiting management. If nausea is not resolved in 30 minutes, go to Step 2 (Zofran) Avoid use if patient has full bowel obstruction or perforation., Intrapartum misoprostol (CYTOTEC) tablet 400 mcg(Linked Group 8) 400 mcg, Oral, GIVE ONCE PRN AND REPEAT ACCORDING TO INSTRUCTIONS, post- hemorrhage, Starting on Tue05/29/21 at 1517, Administer only if directed by provider. Max administrations: 4 doses, Intrapartum misoprostol (CYTOTEC) tablet 800 mcg(Linked Group 8) 800 mcg, Rectal, GIVE ONCE PRN AND REPEA T ACCORDING TO INSTRUCTIONS, post- hemorrhage, Starting on Tue05/29/21 at 1517, Give rectally if unable to take oral without complications. Administer only if directed by provider. Max administrations: 4 doses., Intrapar socorro naloxone (NARCAN) injection 0.2 mg(Linked Group 9) 0.2 mg, Intravenous, EVERY 2 MIN PRN, op ioid reversal, Starting on Tue05/29/21 at 1517, Administer intravenous route when available and notify provider when administered. For unintended sedation or resp iratory depression if all of the below c riteria are met: ~ respiratory rate LESS than or EQUAL to 8. ~SaO2 less than 92% and or/end-tidal CO2 is greater than 50. ~ the patient is receiving an opioid, corrales s unintended sedations assessed as RASS (-3), and is currently not on mechanical ventilation. RASS scale moderate (-3) is movement or eye opening to voice but no eye contact. Patient Monitoring Once the patient has demonstrated a response to the naloxone, continue to monitor respiratory rate, depth, oxygen saturation and end-tidal CO2 (if available) every 15 minutes x 2, then every 30 minutes x 2, the n every 1 hour x 1 after each naloxone d ose. Consider transfer to ICU if patient respiratory parameters have not improved after 4 naloxone doses. For ordered IV doses 0.1-2mg give IVP. Give each 0.4mg o mervin 15 seconds in emergency situations. For non-emergent situations further dilute in 9mL of NS to facilitate titration of response., Intrapartum naloxone (NARCAN) injection 0.2 mg(Linked Group 9) 0.2 mg, Intramuscular, EVERY 2 MIN PRN, opioid reversal, Starting on Tue05/29/21 at 1517, Administer intramuscular if an intravenous route is not available and notify provider when administered. For uni ntended sedation or respiratory depressi on if all of the below criteria are met: ~ respiratory rate LESS than or EQUAL to 8. ~SaO2 less than 92% and or/end-tidal CO2 is greater than 50. ~ the patient is receiving an opioid, has unintended sed ations assessed as RASS (-3), and is currently not on mechanical ventilation. RASS scale moderate (-3) is movement or eye opening to voice but no eye contact. Pat ient Monitoring Once the patient has dem onstrated a response to the naloxone, continue to monitor respiratory rate, depth, oxygen saturation and end-tidal CO2 (if available) every 15 minutes x 2, then e very 30 minutes x 2, then every 1 hour x 1 after each naloxone dose. Consider transfer to ICU if patient respiratory parameters have not improved after 4 naloxone doses. For ordered IV doses 0.1-2mg giv e IVP. Give each 0.4mg over 15 seconds i n emergency situations. For non-emergent situations further dilute in 9mL of NS to facilitate titration of response., Intrapartum naloxone (NARCAN) injection 0.4 mg(Linked Group 9) 0.4 mg, Intravenous, EVERY 2 MIN PRN, op ioid reversal, Starting on Tue05/29/21 at 1517, Administer intravenous route when available and notify provider when administered. For unintended sedation or resp iratory depression if all of the below c riteria are met: ~ respiratory rate LESS than or EQUAL to 8. ~ SaO2 less than 92% and or/end-tidal CO2 is greater than 50. ~ the patient is receiving an opioid, h as unintended sedation assessed as RASS (-4) or (-5) and patient is currently not on mechanical ventilation. RASS scale (-4) is deep sedation with no response to voice but movement or eye opening to phy sical stimulation. RASS scale (-5) is un arousable. Patient Monitoring Once the patient has demonstrated a response to the naloxone, continue to monitor respiratory rate, depth, oxygen saturation and end -tidal CO2 (if available) every 15 minut es x 2, then every 30 minutes x 2, then every 1 hour x 1 after each naloxone dose. Consider transfer to ICU if patient respiratory parameters have not improved af ter 4 naloxone doses. For ordered IV dos es 0.1-2mg give IVP. Give each 0.4mg over 15 seconds in emergency situations. For non-emergent situations further dilute in 9mL of NS to facilitate titration of response., Intrapartum naloxone (NARCAN) injection 0.4 mg(Linked Group 9) 0.4 mg, Intramuscular, EVERY 2 MIN PRN, opioid reversal, Starting on Tue05/29/21 at 1517, Administer intramuscular if an intravenous route is not available and notify provider when administered. For uni ntended sedation or respiratory depressi on if all of the below criteria are met: ~ respiratory rate LESS than or EQUAL to 8. ~ SaO2 less than 92% and or/end- tidal CO2 is greater than 50. ~ the patient i s receiving an opioid, has unintended se dation assessed as RASS (-4) or (-5) and patient is currently not on mechanical ventilation. RASS scale (-4) is deep sedation with no response to voice but moveme nt or eye opening to physical stimulatio n. RASS scale (-5) is unarousable. Patient Monitoring Once the patient has demonstrated a response to the naloxone, continue to monitor respiratory rate, depth, o xygen saturation and end-tidal CO2 (if a vailable) every 15 minutes x 2, then every 30 minutes x 2, then every 1 hour x 1 after each naloxone dose. Consider transfer to ICU if patient respiratory paramet ers have not improved after 4 naloxone d oses. For ordered IV doses 0.1-2mg give IVP. Give each 0.4mg over 15 seconds in emergency situations. For non-emergent situations further dilute in 9mL of NS to facilitate titration of response., Intrapartum ondansetron (ZOFRAN) injection 4 mg(Linked Group 10) 4 mg, Intravenous, EVERY 6 HOURS PRN, na usea, vomiting, Administer over 2-5 Minutes, Starting on Tue05/29/21 at 1517, This is Step 2 of OB nausea and vomiting management. Give if nausea not resolved 30 minutes after giving metoclopramide (REG HERRERA). If nausea is not resolved in 15 minutes, go to Step 3 (Compazine). Irritant. For ordered IV doses 0.1-4 mg, give IV Push undiluted over 2-5 minutes., Intrapartum ondansetron (ZOFRAN-ODT) ODT tab 4 mg(Linked Group 10) 4 mg, Oral, EVERY 6 HOURS PRN, nausea, v omiting, Starting on Tue05/29/21 at 1517, This is Step 2 of OB nausea and vomiting management. Give If nausea not resolved in 30 minutes after giving metocloprami de (REGLAN). If nausea is not resolved i n 15 minutes, go to Step 3 (Compazine). With dry hands, peel back foil backing and gently remove tablet. Do not push oral disintegrating tablet through foil backi ng. Administer immediately on tongue and oral disintegrating tablet dissolves in seconds, then swallow with saliva. Liquid not required., Intrapartum Opioid plan - medication instruction CONTINUOUS PRN, Starting on Tue05/29/21 at 1515, Until Tue05/31/21 at 1511, May give opioids (NOT Sedatives) as ordered by OB provider when patient meets parameters: respirations greater than 14 breaths per minute, is NOT somnolent, oxygen sa turation is greater than 95%, pain inadequately controlled with other adjuvant medications. May give other medications per OB provider orders., Intra + Post oxytocin (PITOCIN) 30 units in 500 mL 0.9% NaCl infusion 100-340 mL/hr, at 100-340 mL/hr, Intrave nous, CONTINUOUS PRN, After delivery to prevent uterine atony, Starting on Tue05/29/21 at 1517, Give after delivery to prevent uterine atony per provider directio n. Administer 340 mL/hr over 30 minutes for a total of 170 mL, then decrease to 100 mL/hr until infusion complete (about 3.5 hours) or per provider direction. Start new bag at delivery. Discontinue or s flash lock peripheral IV per nurse discretion., oxytocin (PITOCIN) 30 units in 500 mL 0.9% NaCl infusion 340 mL/hr, at 340 mL/hr, Intravenous, CO NTINUOUS PRN, for hemorrhage (PPH) UNTIL bleeding subsided., Starting on Tue05/29/21 at 1517, When bleeding subsides decrease rate to 100 mL/hr. Notify provider immediately when infusion begu n. Oxytocin is first line medication for PPH., Intrapartum oxytocin (PITOCIN) injection 10 Units 10 Units, Intramuscular, ONCE PRN, Give after delivery to prevent uterine atony., Starting on Tue05/29/21 at 1517, For 1 dose, Give after delivery to prevent uterine atony if no IV access is available per provider direction., oxytocin (PITOCIN) injection 10 Units 10 Units, Intramuscular, ONCE PRN, for p ostpartum hemorrhage (PPH), IF no IV access is available., Starting on Tue05/29/21 at 1517, For 1 dose, Notify provider immediately when injection given. Oxytocin is first line medication for PPH., Intrapartum prochlorperazine (COMPAZINE) injection 10 mg(Linked Group 11) 10 mg, Intravenous, EVERY 6 HOURS PRN, n ausea, vomiting, Administer over 2 Minutes, Starting on Tue05/29/21 at 1517, This is Step 3 of OB nausea and vomiting management. Give if nausea not resolved 15 m inutes after giving ondansetron (ZOFRAN) . If nausea is not resolved in 30 minutes, notify provider. For ordered IV doses 0.1-10 mg, give IV push undiluted, each 5 mg over 1 minute., Intrapartum prochlorperazine (COMPAZINE) suppository 25 mg(Linked Group 11) 25 mg, Rectal, EVERY 12 HOURS PRN, nause a, vomiting, Starting on Tue05/29/21 at 1517, This is Step 3 of OB nausea and vomiting management. Give if nausea not resolved 15 minutes after giving ondansetron (ZOFRAN). If nausea is not resolved in 30 minutes, notify provider., Intrapartum prochlorperazine (COMPAZINE) tablet 10 mg(Linked Group 11) 10 mg, Oral, EVERY 6 HOURS PRN, nausea, vomiting, Starting on Tue05/29/21 at 1517, This is Step 3 of OB nausea and vomiting management. Give if nausea not resolved 15 minutes after giving ondansetron (Z OFRAN). If nausea is not resolved in 30 minutes, notify prov ider., Intrapartum tranexamic acid 1 g in 100 mL 0.7% NaCl IV bag (premix) 1 g, Intravenous, Administer over 10 Min utes, EVERY 30 MIN PRN, Post- hemorrhage (PPH), Starting on Tue05/29/21 at 1517, For 2 doses, Provider consultation REQUIRED and MUST be administered as christiano n as the ONSET of bleeding AND within 3 hours of regardless of cause of the PPH (atony OR laceration). IF bleeding continues, a 2nd dose may be administered after 30 minutes. IF concern for DIC (D isseminated Intravascular Coagulation), obtain coagulation studies PRIOR to administration. Contraindications include: history of PE (Pulmonary Emboli), DVT (Deep Vein Thrombosis) and current Subarachno id hemorrhage and active DIC. Administer only if directed by provider., Intrapartum Linked Groups Order Group 1: IF subcutaneous (SQ) Unfractionated heparin (UFH) ordered for thromboprophylaxisJump to med SEE ADMIN INSTRUCTIONS, Starting on Tue05/29/21 at 1515, Until Tue05/31/21 at 1511
NOTE to RN: Do not discontinue this anesthesia order until 24 hours after epidural infusion discontinued.& nbsp;Instructions for restarting OR init iating anticoagulation therapy: IF SQ Unfractionated Heparin (UFH) ordered for thromboprophylaxis: Wait at LEAST 1 hour after neuraxia l procedure (if no signs of h emorrhage) and at LEAST 1 hour after epidural catheter removal before initiating or restarting thromboprophylaxis. For any other medications, please cons ult anesthesia for recommendations on re suming antiplatelet or anticoagulation medications post neuraxial placement or epidural catheter removal.
Intra + Post Or IF intravenous (IV) Unfractionated heparin (UFH) orderedJump to med SEE ADMIN INSTRUCTIONS, Starting on Tue05/29/21 at 1515, Until Tue05/31/21 at 1511
NOTE to RN: Do not discontinue this anesthesia order until 24 hours after epidural infusion discontinued.& nbsp;Instructions for restarting OR init iating anticoagulation therapy: IF IV Unfractionated Heparin (UFH): IF Restarting anticoagulation - Wait at LEAST 1 hour after neurax ial block (if no signs of hem orrhage) before initiating or restarting anticoagulation IF IV Unfractionated Heparin (UFH) currently infusing: stop the infusion for at LEAST 4 hours, e nsure normalization of the PTT BEFORE ca theter REMOVAL. Anticoagulation may be resumed GREAT than or EQUAL to 1 hour after catheter removal. For any other medications, please consult an esthesia for recommendations on resuming antiplatelet or anticoagulation medications post neuraxial placement or epidural catheter removal.
Intra + Post Or IF LOW-dose Low molecular weight heparin (LMWH) thromboprophylaxis orderedJump to med SEE ADMIN INSTRUCTIONS, Starting on Tue05/29/21 at 1515, Until Tue05/31/21 at 1511
NOTE to RN: Do not discontinue this anesthesia order until 24 hours after epidural infusion discontinued.& nbsp;Instructions for restarting OR init iating anticoagulation therapy: IF LOW-dose Low molecular weight heparin (LMWH) thromboprophylaxis (Enoxaparin (LOVENOX) LESS than or EQUAL to 40 mg SQ once daily or 30 mg SQ twice da michael, or dalteparin (FRAGMIN) 5000 units SQ once daily): Wait at LEAST 12 hours after the neuraxial procedure and at LEAST 4 hours after the epidural cat heter removal before initiating or resta rting LMWH thromboprophylaxis. For any other medications, please consult anesthesia for recommendations on resuming antiplatelet or anticoagulation medic ations post neuraxial placement or epidu ral catheter removal.
Intra + Post Or IF HIGHER-dose Low molecular weight heparin (LMWH) thromboprophylaxis orderedJump to med SEE ADMIN INSTRUCTIONS, Starting on Tue05/29/21 at 1515, Until Tue05/31/21 at 1511
Note to RN: Do not discontinue this anesthesia order until 24 hours after epidural infusion discontinued.& nbsp;Instructions for restarting OR init iating anticoagulation therapy: IF HIGHER dose Low molecular weight heparin (LMWH) (Enoxaparin (LOVENOX) 1 mg/kg SQ twice daily or 1.5 mg/kg SQ once daily; dalteparin (FRAGMIN) 120 un its/kg SQ twice daily or 200 units/kg SQ once daily): Wait at LEAST 24 hours after the neuraxial procedure and at LEAST 4 hours after epidural catheter r emoval before initiating or restarting L MWH therapy. For any other medications, please consult anesthesia for recommendations on resuming antiplatelet or anticoagulation medications post neurax ial placement or epidural catheter remov al.
Intra + Post Group 2: venlafaxine (EFFEXOR-XR) 24 hr capsule 150 mgJump to med 150 mg, Oral, DAILY WITH BREAKFAST, Firs t dose on Tue05/29/21 at 0900
DO NOT CRUSH.
And venlafaxine (EFFEXOR-XR) 24 hr capsule 75 mgJump to med 75 mg, Oral, DAILY WITH BREAKFAST, First dose on Tue05/29/21 at 0900
DO NOT CRUSH.
Group 3: glucose gel 15-30 gJump to med 15-30 g, Oral, EVERY 15 MIN PRN, low blo od sugar, Starting on Tue05/29/21 at 1517
Give first dose for initial blood glucose less than 70 mg/dL per the dosing instructions below. If bl ood glucose at 15 minute rechecks is sti ll less than or equal to 80 mg/dL, continue to administer doses per blood glucose parameters every 15 minutes, as needed, until blood glucose level is above 80 mg /dl. Dosing Instructions:&nbs p;If patient is conscious and able to swallow For initial BG 51-69 mg/dL OR 15 minute recheck BG 51- 80 mg/dL - give 15 g For BG le ss than or equal to 50 mg/dL - give 30 g ~Oral gel is preferable for conscious and able to swallow patient. ~IF gel unavailable or patient refuses may provide apple juice as follows: Apple juice dosing instructions.&n bsp;For initial BG 51-69 mg/dL OR 15 minute recheck BG 51- 80 mg/dL - give apple juice 120 mL (4 oz or 15 g of CHO). For BG less than or equal t o 50 mg/dL - Give apple juice 240 mL (8 oz or 30 g of CHO). Document juice on I and O flowsheet.
Intrapartum Or dextrose 50 % injection 25-50 mLJump to med 25-50 mL, Intravenous, EVERY 15 MIN PRN, low blood sugar, Administer over 1-5 Minutes, Starting on Tue05/29/21 at 1517
Use if have IV access, BG less than 70 mg/dL and meet dose criteria below: Dose if conscious and alert (or di sorientated) and NPO = 25 mL Dose if unconscious / not alert = 50 mL Give first dose for initial blood glucose less than 70 mg/dL. If blood glucose at 15 minut e recheck is less than or equal to 80 mg/dL continue to administer carbohydrate treatment every 15 minutes, as needed, based on blood glucose and assessme nt parameters until blood glucose level is above 80 mg/dL. Vesicant. For ordered doses up to 25 g, give IV Push undiluted. Give each 5g over 1 minute.
Intrapartum Or glucagon injection 1 mgJump to med 1 mg, Subcutaneous, EVERY 15 MIN PRN, lo w blood sugar, May repeat x 1 only, Starting on Tue05/29/21 at 1517
May give SQ or IM. ONLY use glucagon IF patient has NO IV access AND is UNABLE to swa llow AND blood glucose is LESS than or E QUAL to 50 mg/dL. If ordered IV, give IV Push over 1 minute. Reconstitute with 1mL sterile water.
Intrapartum Group 4: hydrOXYzine (ATARAX) tablet 50 mgJump to med 50 mg, Oral, AT BEDTIME PRN, other, slee p, Starting on 05/30/21 at 1941 Or hydrOXYzine (ATARAX) tablet 100 mgJump to med 100 mg, Oral, AT BEDTIME PRN, other, sle ep, Starting on 05/30/21 at 1941 Group 5: ketorolac (TORADOL) injection 30 mgJump to med 30 mg, Intravenous, ONCE PRN, other, for mild to moderate pain, Starting on Tue05/29/21 at 1517, For 5 days
Give immediately x 1 dose. Any patient with renal function concer ns should have a serum creatinine drawn and creatinine clearance calculated. If creatinine clearance is 30-50 ml/min give 15 mg, if less than 30 ml/min do not administer ketorolac. Can cause pa in on injection. If ordered intravenousl y (IV) : administer through a running maintenance fluid over 1 minute followed by a flush. If patient complains of pain on injection, may dilute 15-30 mg in 5 mL and push over 1 to 2 minutes.
Or ketorolac (TORADOL) injection 30 mgJump to med 30 mg, Intramuscular, ONCE PRN, other, f or mild to moderate pain, Starting on Tue05/29/21 at 1517, For 5 days
Give 30-60 minutes post procedure x 1 dose. Any patient with renal functio n concerns should have a serum creatinin e drawn and creatinine clearance calculated. If creatinine clearance is 30-50 ml/min give 15 mg, if less than 30 ml/min do not administer ketorolac. Can cause pain on injection. If ordered intr avenously (IV) : administer through a running maintenance fluid over 1 minute followed by a flush. If patient complains of pain on injection, may dilute 15-30 mg in 5 mL and push over 1 to 2 minutes. <b r> Or ibuprofen (ADVIL/MOTRIN) tablet 600 mgJump to med 600 mg, Oral, ONCE PRN, other, For mild to moderate pain., Starting on Tue05/29/21 at 1517, For 5 days
Give 30-60 minutes post procedure x 1 dose. Do not give within 6 hours of ketorolac dose. Give with food.
Group 6: lactated ringers BOLUS 1,000 mLJump to med Intravenous, 1,000 mL, ONCE PRN, IF aniceto ent to have epidural or intrathecal narcotics and NOT pre-eclamptic, Starting on Tue05/29/21 at 1517, For 1 dose
IV bolus must be initiated 15-30 min boom or to epidural or intrathecal, then IV f luids per labor orders. Nurse may discontinue this order if duplicate.
Intrapartum Or lactated ringers BOLUS 500 mLJump to med Intravenous, 500 mL, ONCE PRN, IF patien t to have epidural or intrathecal narcotics AND patient is pre-eclamptic. , Starting on Tue05/29/21 at 1517, For 1 dose
IV bolus must be initiated 15-30 min prior to epidural or intrathecal IF pre-eclamptic, then IV fluids per labor orders. Nurse may discontinue this order if duplicate.
Intrapartum Group 7: metoclopramide (REGLAN) injection 10 mgJump to med 10 mg, Intravenous, Administer over 2 Mi nutes, EVERY 6 HOURS PRN, nausea, vomiting, Starting on Tue05/29/21 at 1517
This is Step 1 of OB nausea and vomiting management. If na usea is not resolved in 30 minutes, go t o Step 2 (Zofran). Avoid use if patient has full bowel obstruction or perforation. Irritant. For ordered IV doses 1-10 mg, give IV Push undiluted over 2 minutes.
Intrapartum Or metoclopramide (REGLAN) tablet 10 mgJump to med 10 mg, Oral, EVERY 6 HOURS PRN, nausea a nd vomiting, Starting on Tue05/29/21 at 1517
This is Step 1 of OB nausea and vomiting management. If nausea is not resolved in 30 ernie felix, go to Step 2 (Zofran) Avoid us e if patient has full bowel obstruction or perforation.
Intrapartum Group 8: misoprostol (CYTOTEC) tablet 400 mcgJump to med 400 mcg, Oral, GIVE ONCE PRN AND REPEAT ACCORDING TO INSTRUCTIONS, post- hemorrhage, Starting on Tue05/29/21 at 1517
Administer only if directed by provider. Max administrations: 4 doses
Intrapartum Or misoprostol (CYTOTEC) tablet 800 mcgJump to med 800 mcg, Rectal, GIVE ONCE PRN AND REPEA T ACCORDING TO INSTRUCTIONS, post- hemorrhage, Starting on Tue05/29/21 at 1517
Give rectally if unable to take oral without complications. Administ er only if directed by provider. Max adm inistrations: 4 doses.
Intrapartum Group 9: naloxone (NARCAN) injection 0.2 mgJump to med 0.2 mg, Intravenous, EVERY 2 MIN PRN, op ioid reversal, Starting on Tue05/29/21 at 1517
Administer intravenous route when available and notify provider when administered. For unintended sedation or respiratory depression if a ll of the below criteria are met: ~ respiratory rate LESS than or EQUAL to 8. ~SaO2 less than 92% and or/end- tidal CO2 is greater than 50.& nbsp;~ the patient is receiving an opioi d, has unintended sedations assessed as RASS (-3), and is currently not on mechanical ventilation. RASS scale moderate (-3) is movement or eye opening to voice but no eye contact.&nbs p; Patient Monitoring Once the patient has demonstrated a response to the naloxone, continue to monitor respiratory rate, depth, oxygen satu ration and end-tidal CO2 (if available) every 15 minutes x 2, then every 30 minutes x 2, then every 1 hour x 1 after each naloxone dose. Consider transfer to ICU if patient respirator y parameters have not improved after 4 n aloxone doses. For ordered IV doses 0.1-2mg give IVP. Give each 0.4mg over 15 seconds in emergency situations. For non-emergent situations further dilute in 9mL of NS to facilitate titration of response.
Intrapartum Or naloxone (NARCAN) injection 0.4 mgJump to med 0.4 mg, Intravenous, EVERY 2 MIN PRN, op ioid reversal, Starting on Tue05/29/21 at 1517
Administer intravenous route when available and notify provider when administered. For unintended sedation or respiratory depression if a ll of the below criteria are met: ~ respiratory rate LESS than or EQUAL to 8. ~ SaO2 less than 92% and or/end- tidal CO2 is greater than 50.& nbsp;~ the patient is receiving an opioi d, has unintended sedation assessed as RASS (-4) or (-5) and patient is currently not on mechanical ventilation. RASS scale (-4) is deep sedati on with no response to voice but movemen t or eye opening to physical stimulation. RASS scale (-5) is unarousable. Patient Monitoring On ce the patient has demonstrated a respon se to the naloxone, continue to monitor respiratory rate, depth, oxygen saturation and end-tidal CO2 (if available) every 15 minutes x 2, then every 30 minutes x 2, then every 1 hour x 1 after each nalo xone dose. Consider transfer to ICU if patient respiratory parameters have not improved after 4 naloxone doses. For ordered IV doses 0 .1-2mg give IVP. Give each 0.4mg over 15 seconds in emergency situations. For non-emergent situations further dilute in 9mL of NS to facilitate titration of response.
Intrapartum Or naloxone (NARCAN) injection 0.2 mgJump to med 0.2 mg, Intramuscular, EVERY 2 MIN PRN, opioid reversal, Starting on Tue05/29/21 at 1517
Administer intramuscular if an intravenous route is not available and notify provider when administered. For unintended sedation or respira tory depression if all of the below criteria are met: ~ respiratory rate LESS than or EQUAL to 8. ~SaO2 less than 92% and or/end-tidal CO2 is greater than 50. ~ the patient i s receiving an opioid, has unintended sedations assessed as RASS (-3), and is currently not on mechanical ventilation. RASS scale moderate (-3) is movement or eye opening to voice but no eye contact. Patient Monitoring Once the patient has demonstrated a response to the naloxone, continue to monitor respiratory rate, depth, oxygen saturation and end-t idal CO2 (if available) every 15 minutes x 2, then every 30 minutes x 2, then every 1 hour x 1 after each naloxone dose. Consider transfer to [facility] if patient respiratory parameters hav e not improved after 4 naloxone doses. For ordered IV doses 0.1-2mg give IVP. Give each 0.4mg over 15 seconds in emergency situations. For non-emergent s ituations further dilute in 9mL of NS to facilitate titration of response.
Intrapartum Or naloxone (NARCAN) injection 0.4 mgJump to med 0.4 mg, Intramuscular, EVERY 2 MIN PRN, opioid reversal, Starting on Tue05/29/21 at 1517
Administer intramuscular if an intravenous route is not available and notify provider when administered. For unintended sedation or respira tory depression if all of the below criteria are met: ~ respiratory rate LESS than or EQUAL to 8. ~ SaO2 less than 92% and or/end-tidal CO2 is greater than 50. ~ the patient i s receiving an opioid, has unintended sedation assessed as RASS (-4) or (-5) and patient is currently not on mechanical ventilation. RASS s kelly (-4) is deep sedation with no respo nse to voice but movement or eye opening to physical stimulation. RASS scale (-5) is unarousable. Patien t Monitoring Once the patient has d emonstrated a response to the naloxone, continue to monitor respiratory rate, depth, oxygen saturation and end-tidal CO2 (if available) every 15 minutes x 2, then every 30 minutes x 2, then every 1 hour x 1 after each naloxone dose. Consider transfer to ICU if patient respiratory parameters have not improved after 4 naloxone doses.&nbs p;For ordered IV doses 0.1-2mg give IVP. Give each 0.4mg over 15 seconds in emergency situations. For non-emergent situations further dilute in 9mL of NS to facilitate titration of response.
Intrapartum Group 10: ondansetron (ZOFRAN-ODT) ODT tab 4 mgJump to med 4 mg, Oral, EVERY 6 HOURS PRN, nausea, v omiting, Starting on Tue05/29/21 at 1517
This is Step 2 of OB nausea and vomiting management. Give If nausea not resolved in 30 minute s after giving metoclopramide (REGLAN).& nbsp; If nausea is not resolved in 15 minutes, go to Step 3 (Compazine). With dry hands, peel back foil backing and gently remove tablet. Do not push oral disintegrating tablet thr ough foil backing. Administer immediately on tongue and oral disintegrating tablet dissolves in seconds, then swallow with saliva. Liquid not required.
Intrapartum Or ondansetron (ZOFRAN) injection 4 mgJump to med 4 mg, Intravenous, EVERY 6 HOURS PRN, na usea, vomiting, Administer over 2-5 Minutes, Starting on Tue05/29/21 at 1517
This is Step 2 of OB nausea and vomiting management. Give if nausea not resolved 30 minutes after giving metoclopramide (REGLAN). If nausea is not resolved in 15 minutes, go to Step 3 (Compazine). Irritant. For ordered IV doses 0.1-4 mg, give IV Push undiluted over 2-5 minutes.
Intrapartum Group 11: prochlorperazine (COMPAZINE) injection 10 mgJump to med 10 mg, Intravenous, EVERY 6 HOURS PRN, n ausea, vomiting, Administer over 2 Minutes, Starting on Tue05/29/21 at 1517
This is Step 3 of OB nausea and vomiting management. Give if nausea not resol jose g 15 minutes after giving ondansetron (ZOFRAN). If nausea is not resolved in 30 minutes, notify provider. For ordered IV doses 0.1-10 mg, give IV push undiluted, each 5 mg over 1 minute.
Intrapartum Or prochlorperazine (COMPAZINE) tablet 10 mgJump to med 10 mg, Oral, EVERY 6 HOURS PRN, nausea, vomiting, Starting on Tue05/29/21 at 1517
This is Step 3 of OB nausea and vomiting management. Give if nausea not resolved 15 minutes after giving ondans etron (ZOFRAN). If nausea is not resolve d in 30 minutes, notify provider.
Intrapartum Or prochlorperazine (COMPAZINE) suppository 25 mgJump to med 25 mg, Rectal, EVERY 12 HOURS PRN, nause a, vomiting, Starting on 05/29/21 at 1517
This is Step 3 of OB nausea and vomiting management. Give if nausea not resolved 15 minutes after giving ond ansetron (ZOFRAN). If nausea is not reso lved in 30 minutes, notify provider.
Intrapartum documented in this encounter Care Teams Glass Bulb Machine Adjuster Relationship Specialty Start Date End Date Billie Guadarrama PCP - General 12/17/19 [facility] [address] [place] [address] Rocio Mccarthy MD Assigned Endocrinology 08/01/20 11/28/[address] [place] [address] Anthony Shaffer MD Assigned OBGYN Provider 05/10/21 05/07/[address] [place] [address] documented as of this encounter
--- OUTSIDE RECORDS SUMMARY | 2022-08-02 15:07 | XMS_ITS | Encounter Summary ---
:1995 Author Organization [place] Address [address] [place] [address]. 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 documented as of this encounter Miscellaneous Notes Result Encounter Note - Rocio Mccarthy MD - 11/18/2021 12:30 PM [facility] Labs/results noted. Please see telephone encounter dated 11/20/21. documented in this encounter Plan of Treatment Upcoming Encounters Date Type Specialty Care Team Description 12/28/2022 Virtual Visit Endocrinology Merle Mccarthy MD [address] [place] [address] (Wo rk) documented as of this encounter Procedures Procedure Name Priority Date/Time Associated Diagnosis Comme nts THYROGLOBULIN AND Routine 11/18/2021 12:41 Hypothyroidism due to Results for this ANTIBODY REFLEX PM [facility] Duane's procedure ar e in thyroiditis the results section. THYROGLOBULIN BY Routine 11/18/2021 12:41 Hypothyroidism due t o Results for this IMMUNOASSAY PM [facility] Duane's procedure are i n thyroiditis the results section. TSH Routine 11/18/2021 12:41 Hypothyroidism due to Re sults for this PM [employer] Duane's procedure are i n thyroiditis the results section. T4 FREE Routine 11/18/2021 12:41 Hypothyroidism due to Re sults for this PM [employer] [employer] Duane's procedure are i n thyroiditis the results section. T3 REVERSE Routine 11/18/2021 12:41 Hypothyroidism due to Re sults for this PM [employer] [employer] Duane's procedure are i n thyroiditis the results section. T3 FREE Routine 11/18/2021 12:41 Hypothyroidism due to Re sults for this PM [facility] Duane's procedure are i n thyroiditis the results section. documented in this encounter Results (ABNORMAL) Thyroglobulin by Immunoassay (11/18/2021 12:41 PM SC[facility]TER) [facility] Method Time Signature Thyroglobulin by 144.0 (H) <55.0 11/20/2021 [facility] Immunoassay ng/mL 6:40 AM SC[facility] CORE/PROT/END O Specimen Anatomical Collection Method / Collection Time Recei jose g Time (Source) Location / Volume Laterality Blood VENOUS BLOOD / Venipuncture / 11/18/2021 12:41 022 Unknown Unknown PM [facility] 12:41 PM [facility] Narrative [facility] CORE/PROT/ENDO - 11/20/2021 6:40 AM [facility] Performed on the Siemens Immulite 2000 X Pi at the Special Chemistry Laboratory, [facility] Rocio Mccarthy MD LAB - BLOOD ORDERABLES Performing Organization Address City/State/ZIP Code Phon e Number [facility] CORE/PROT/ENDO [facility] [place] [place] [address] Core/Prot/Endo [address] [facility] Unit Building, Room 3-580 (ABNORMAL) T3 Free (11/18/2021 12:41 PM SCENE SHIFTER) P athologist Signature T3 Free 1.5 (L) 2.3 - 4.2 11/18/2021 [facility] pg/mL 6:34 PM [facility] Specimen Anatomical Collection Method / Collection Time Recei jose g Time (Source) Location / Volume Laterality Blood VENOUS BLOOD / Venipuncture / 11/18/2021 12:41 022 Unknown Unknown PM [facility] 12:41 PM [facility] Rocio Mccarthy MD LAB - BLOOD ORDERABLES Performing Organization Address City/State/ZIP Code Phon e Number [facility] [place] [place] [phone] Lab [facility], Room 3-580 (ABNORMAL) T4 free (11/18/2021 12:41 PM SCENE SH[facility]TER) athologist Signature Free T4 0.64 (L) 0.76 - 1.46 11/18/2021 [facility] ng/dL 7:16 PM SC[facility]TER Specimen Anatomical Collection Method / Collection Time Recei jose g Time (Source) Location / Volume Laterality Blood VENOUS BLOOD / Venipuncture / 11/18/2021 12:41 022 Unknown Unknown PM [facility] 12:41 PM SCENE [facility]TER Authorizing Provider Result Brian Mccarthy MD LAB - BLOOD ORDERABLES Performing Organization Address City/State/ZIP Code Phon e Number [facility] [place], [place] [phone] [facility] [phone] [place] [address] Lab (no room number, 1st floor of clinic) [facility] [place], [place] [phone] [facility] [address] Lab (no room number, 1st floor of clinic) (ABNORMAL) TSH (11/18/2021 12:41 PM SC[facility]TER) athologist Signature TSH 104.91 (H) 0.40 - 11/18/2021 [facility] 4.00 mU/L 8:05 PM [facility] Specimen Anatomical Collection Method / Collection Time Recei jose g Time (Source) Location / Volume Laterality Blood VENOUS BLOOD / Venipuncture / 11/18/2021 12:41 022 Unknown Unknown PM [facility] 12:41 PM [facility] Rocio Mccarthy MD LAB - BLOOD ORDERABLES Performing Organization Address City/State/ZIP Code Phon e Number [facility] [place], [place] [phone] [facility] [phone] Lab (no room number, 1st floor of clinic) [facility] [place], [place] [phone] [facility] [address] Lab (no room number, 1st floor of clinic) Thyroglobulin and Antibody Reflex (11/18/2021 12:41 PM SC[facility]TER) [facility] Signature Thyroglobulin <20 <40 IU/mL 11/19/2021 [facility] Antibody 1:39 PM [facility] CORE/PROT/END O Specimen Anatomical Collection Method / Collection Time Recei jose g Time (Source) Location / Volume Laterality Blood VENOUS BLOOD / Venipuncture / 11/18/2021 12:41 022 Unknown Unknown PM [facility] 12:41 PM [facility] Rocio Mccarthy MD LAB - BLOOD ORDERABLES Performing Organization Address City/State/ZIP Code Phon e Number [facility] CORE/PROT/ENDO [facility] [place] [place] [address] Core/Prot/Endo [address] [facility] [address] Building, Room 3-580 T3 reverse (11/18/2021 12:41 PM SCENE [facility]TER) athologist Signature T3, Reverse 10.3 9.0 - 27.0 11/23/2021 [facility] ng/dL ng/dL 4:48 PM SCENE SH[facility]TER Comment: INTERPRETIVE INFORMATION: Triiodothyroni ne, Reverse - LC-MS/MS This test was developed and its performa nce characteristics determined by [facility]. It has not been cleared or approved by the [place] Food and Drug Adminis tration. This test was performed in a CLIA certified labora tory and is intended for clinical purposes. 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
--- OUTSIDE RECORDS SUMMARY | 2022-08-02 15:07 | XMS_ITS | Encounter Summary ---
:1995 Author Organization [place] Address [address] [place] [address]. [place] [address] Care Team Providers Name Role Phone Billie Guadarrama Primary Care Provider Rocio Mccarthy MD Unavailable Anthony Shaffer MD Unavailable Reason for Referral Diagnostic Imaging Ultrasound (Routine) - Closed Specialty Diagnoses / Procedures Referred By Contact Refer red To Contact Diagnoses affected by growth restriction Anthony Shaffer MD Procedures [facility] Comprehensive Single F/U [address] [place] [address] 4 Referral ID Status Reason Start Date Expiration Date Visits Requ ested Visits Authorized [id number] Closed 05/01/2021 05/01/2022 1 1 Reason for Visit Diagnostic Imaging Ultrasound (Routine) - Closed Specialty Diagnoses / Procedures Referred By Contact Refer red To Contact Diagnoses affected by growth restriction Anthony Shaffer MD Procedures [facility] Comprehensive Single F/U [address] [place], [place] [address] Referral ID Status Reason Start Date Expiration Date Visits Requ ested Visits Authorized [id number] Closed 05/01/2021 05/01/2022 1 1 Encounter Details Date Type Department Care Team Description 05/26/2021 Hospital [facility] Hernandez MD [address] [place] [address] affected Maternal Contonofre, Jorge Luis Kohler MD [address] [place] [address] by growth [facility] Cecille Marsh MD [address] [place] [address] restriction [place] [address] [facility] [address] [place] [address] Social History Tobacco Use Types [...] at Date Recorded Female 10/05/2020 9:[address] [employer] COVID-19 Exposure Response Date Recorded In the [...] [address] [place], [place] [address] (Wo rk) documented as of this encounter Procedures Procedure Name Priority Date/Time Associated Comments Diagnosis [facility] COMPREHENSIVE Routine 05/26/2021 10:57 affect ed Results for this SINGLE F/U AM CDT by growth procedure ar e in restriction the results section. documented in this encounter Results [facility] Comprehensive Single F/U (05/26/2021 10:57 AM [...] appeared no rmal. 5) The BPP is 8/8. Narrative 05/26/2021 11:02 AM CDT Comp Follow Up Pat. Name: TAYLOR GARCIA Study Date: 05/26/2021 10:34am Pat. NO: [id number] Referring ??MD: VELMA MCNEIL Site: [facility] Compact Assembler: Martine Milan RDMS : 1995 Age: 25 INDICATION growth restriction, Gestational di abetes mellitus. METHOD Transabdominal ultrasound examination. V iew: Sufficient. Sebastian . Number of fetuses: 1 DATING ? Date ?Details ?Gest. age ?MILES LMP ?10/09/2020 ? Cycle: regular cycle ?32 w + 5 d ? 07/16/2021 Prior assessment ? CRL, [...] Biometry: BPD ?78.9 ?mm ? 31w 5d ?Kelsy KOHLER ?100.5 ?mm ? 29w 4d ? Nicolaides HC ?295.8 ?mm ?32w 5d ?Hadlock Cerebellum tr ?44.7 ? mm ?38w 5d ?Nicolaides AC ?286.2 ?mm ?32w 4d ?48% ?Hadlock Femur ?61.1 ? mm ?31w 5d ?Hadlock Weight Calculation: EFW ? 1,942 ?g ? 28% ?Hadlock EFW (lb,oz) ? 4 lb 5 ?oz EFW by ?Hadlock ([id number]) Head / Face / Neck Biometry: Mailroom Supervisor ? 2.8 ? mm CM ?7.2 ? [...] pellucidi. Face ? Lips. Heart / Thorax ?1-lbsvxe-tzroldv view. Gender: male. BIOPHYSICAL PROFILE 2: breathing [...] Pat. Name:Akosua GARCIA Date: 10:34am Pat. NO: [id number] MD:YOSELIN Henderson [facility]Martine Milan RD MS :1995Age:25 INDICATION growth restriction, [...] 4 lb 5 oz EFW by Hadlock ([id number]) Head / Face / Neck Biometry: Mailroom Supervisor 2.8 mm CM 7.2 mm ANATOMY The [...] septi pellucidi. Face Lips. Heart / Thorax 2-lbpcbj-ekearsa view. Gender: male. BIOPHYSICAL PROFILE 2: breathing [...] The BPP is 05/17. Anthony Shaffer MD IMG [facility] ORDERABLES documented in this encounter Visit Diagnoses Diagnosis affected by growth restr iction documented in this encounter Care Teams Records Management Manager Relationship Specialty Start Date End Date Billie Guadarrama PCP - General 12/17/19 [facility] [address] [place] [address] Rocio Mccarthy MD Assigned Endocrinology 08/01/20 11/28/[address] [place] [address] Anthony Shaffer MD Assigned OBGYN Provider 05/10/21 05/07/[address] [place] [address] documented as of this encounter
--- OUTSIDE RECORDS SUMMARY | 2022-08-02 15:07 | XMS_ITS | Encounter Summary ---
:1995 Author Organization [facility] Address [address] [place] [address]. [place] [address] Care Team Providers Name Role Phone Billie Guadarrama Primary Care Provider Rocio Mccarthy MD Unavailable Anthony Shaffer MD Unavailable Reason for Visit Reason Comments Rule Out Labor Encounter Details Date Type Department Care Team Description 05/25/2021 - Hospital Encounter [facility] [address] [place] [address] [place] [address] [phone] contractions 05/26/2021 [facility] Radha Lucas MD [facility] [address] [place] [address] [place] [id number] (Primary Dx) [address] La[address] Goldman MD [facility] [address] [place] [phone] [place] [phone] Social History Tobacco Use Types Packs/Day Years [...] at Date Recorded 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 documented as of this encounter Last Filed Vital Signs Vital Sign Reading Time Taken Comments Blood Pressure 110/62 05/26/2021 7:29 AM CDT Pulse - - Temperature 36.7 ??C (98 ??F) 05/26/2021 7:29 AM CDT Respiratory Rate 18 05/26/2021 7:29 AM CDT Oxygen Saturation - - Inhaled Oxygen Concentration - - Weight - - Height - - Body Mass Index - - documented in this encounter Discharge Summaries Laury Waters MD - 05/26/2021 2:35 PM CDT [facility] Discharge Summary Altagracia Garcia Age: [age] year old Date of : 1995 Date of Admission: 05/25/2021 Date of Discharge:: 05/26/2021 Admitting Physician: Jaimie Gutiérrez MD Discharge Physician: Laury Waters MD Home clinic: [facility] Admission Diagnoses: Indication for care in labor or delivery [O75.9] delivery [O60.10X0] Discharge Diagnosis: Intrauterine at 33w5 weeks gestation Procedures: Procedure(s): No additional procedures performed No procedures performed during this admission Medications Prior to Admission: Medications Prior to Admission Medication Sig Dispense Refill Last Dose ??? aspirin (ASA) 81 MG chewable tablet Take 81 mg by mouth daily 05/25/2021 at Unknown time ??? metFORMIN (GLUCOPHAGE) 1000 MG tablet Take 1,000 mg by mouth 2 times daily (with meals) 05/24/2021 at Unknown time ??? Vit-Fe Fumarate-FA ( VITAMIN PO) Take by mouth daily 05/25/2021 at Unknown time ??? SYNTHROID 100 MCG tablet Total dose 188 mcg/day (take 100+88) 90 tablet 3 05/25/2021 at Unknown time ??? SYNTHROID 88 MCG tablet Total dose 188 mcg/day (take 100+88) 90 tablet 3 05/25/2021 at Unknown time ??? venlafaxine (EFFEXOR-ER) 225 MG 24 hr tablet Take 225 mg by mouth daily 05/25/2021 at Unknown time Discharge Medications: Current Discharge Medication List START taking these medications Details NIFEdipine (PROCARDIA) 20 MG capsule Take 1 capsule (20 mg) by mouth every 8 hours for 4 doses Qty: 4 capsule, Refills: 0 Associated Diagnoses: contractions CONTINUE these medications which have NOT CHANGED Details aspirin (ASA) 81 MG chewable tablet Take 81 mg by mouth daily metFORMIN (GLUCOPHAGE) 1000 MG tablet Take 1,000 mg by mouth 2 times daily (with meals) Vit-Fe Fumarate-FA ( VITAMIN PO) Take by mouth daily !! SYNTHROID 100 MCG tablet Total dose 188 mcg/day (take 100+88) Qty: 90 tablet, Refills: 3 Comments: Dispense SYNTHROID only (not generic). 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 SYNTHROID 88 MCG tablet Total dose 188 mcg/day (take 100+88) Qty: 90 tablet, Refills: 3 Comments: Dispense SYNTHROID only (not generic). 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 - Potential duplicate medications found. Please discuss with provider. Consultations: Consultation during this admission received from perinatology Brief History of Labor: N/A Hospital Course: The patient's hospital course was unremarkable. Ms. Garcia is here as a transfer from [facility], with contractions. She states that these started 05/24, as intermittent cramps in lower abdomen, and pressure below the umbilicus. On arrival at that facility, she was found to be 1cm dilated. One hour later, she had progressed to 2cm, with less pressure, but continued cramping. She was begun on nifedipine and betamethasone, and transferred to [facility]. Since her arrival, her contractions have resolved. MFM ultrasound demonstrated resolved IUGR, no placenta previa, normal ASH. Her course of betamethasone was completed, and she will be discharged to home with a remaining 24 hours of procardia. Discharge Instructions and Follow-Up: Discharge diet: Regular Discharge activity: Activity as tolerated Discharge follow-up: Follow up with primary care provider in 2 days Wound care: n/a Discharge Disposition: Discharged to home Attestation: I have reviewed today's vital signs, notes, medications, labs and imaging. Amount of time performed on this discharge summary: 20 minutes. Laury Waters MD documented in this encounter Discharge Instructions Discharge InstructionsSpring Flores RN - 05/26/2021 3:30 PM CDT Discharge Instruction for Undelivered Patients You were seen for: Labor Assessment We Consulted: Dr. Gutiérrez and Dr. Waters You had (Test or Medicine): and uterine monitoring, betamethasone injections. Diet: Drink 8 to 12 glasses of liquids (milk, juice, water) every day. You may eat meals and snacks. Activity: Call your doctor or nurse cataloging assistant if your baby is moving less than [...] discharge (note the color and amount) Other: Call if increase cramping, questions or concerns. Take Nifedipine as directed. Follow-up: As scheduled in the clinic documented in this encounter Medications at Time of [...] tabletIndications: mcg/day (take Hypothyroidism due to 100+88) Lian's thyroiditis SYNTHROID 88 MCG Total dose 188 90 tablet 3 05/29/202005/11 tabletIndications: mcg/day (take Hypothyroidism due to 100+88) Lian's thyroiditis venlafaxine (EFFEXOR-ER) Take 225 mg by 0 04/19/2022 225 MG 24 hr tablet mouth daily documented as of this encounter Progress Notes Laury Waters MD - 05/26/2021 8:53 AM CDT [facility] OB Note S: Altagracia Garcia feels well this morning. Was able to sleep last night. Pain control adequate. Back pain and cramping are resolved. Voiding. Has Perinatology appt this morning. Mood good. O: Vitals were reviewed Blood pressure 110/62, temperature 98 ??F (36.7 ??C), temperature source Oral, resp. rate 18, last menstrual period 10/09/2020, not currently . General: healthy, alert and no distress Abd: soft, gravid, nontender, fundus firm Legs: Non-tender, 1+ pitting edema No results found for: RH Rubella: immune Assessment and Plan: Hospital Day #2 status post admission for labor vs contractions, doing well. --PTL vs PTC--stable on procardia 20mg every 8 hours. --s/p betamethasone x1 at 1400 05/25--will give second dose at 24h --care has included twice weekly US for short cervix (1.7cm) --concern for 8th percentile on earlier scan, with normal follow up --A2 GDM on metformin --lian's thyroiditis --depression/anxiety--stable on venlafaxine --BMI 39.9, so on ASA --Perinatology visit today --rubella non immune, Varicella non immune --low lying placenta at anatomy screen resolved --GBS pending, B+ Laury Waters MD documented in this encounter H&P Notes Laury Waters MD - 05/25/2021 6:22 PM CDT May 25, 2021 Altagracia Garcia [id number] OB Admit History & Physical Ms. Garcia is here as a transfer from [facility], with contractions. She states that these started 05/24, as intermittent cramps in lower abdomen, and pressure below the umbilicus. On arrival at that facility, she was found to be 1cm dilated. One hour later, she had progressed to 2cm,with less pressure, but continued cramping. She was begun on nifedipine and betamethasone, and transferred to [facility]. On arrival, ultrasound demonstrated: INDICATION: , check presentation, EFW needed. contractions. COMPARISON: 05/01/2021. TECHNIQUE: Routine. ?? FINDINGS: Single intrauterine gestation, cephalic presentation. Placenta is located posterior without previa. Amniotic fluid is normal. Uterus is normal. Maternal adnexa (right and left ovaries) show no abnormalities. ?? ANOMALY SCREEN: Survey of the anatomy is not repeated. ?? BIOMETRY: Biparietal Diameter: 8.30 cm, 33 weeks 3 days Head Circumference: 30.33 cm, 33 weeks 5 days Abdominal Circumference: 28.10 cm, 32 weeks 1 day Femur Length: 5.83 cm, 30 weeks 4 days ?? Estimated Weight: 1860 g EFW Percentile: 44% ?? Heart Rate: 156 bpm Cervical Length: Not well seen ?? EDC by First US exam: 07/16/2021 EDC by This US exam: 07/16/2021 ?? Composite Age by First US: 32 weeks 4 days Composite Age by This US: 32 weeks 4 days ?? IMPRESSION: 1. Single living intrauterine gestation. 2. Based on this ultrasound, composite age of 32 weeks 4 days with EDC 07/16/2021. 3. Normal interval growth. 4. Femur length 3rd percentile, less than 1st percentile on prior. Patient's last menstrual period was 10/09/2020. Her Estimated Date of Delivery: Jul 16, 2021, making her 32w4d. Estimated body mass index is 42.43 kg/m?? as calculated from the following: Height as of 03/28/21: 1.651 m (5' 5). Weight as of 03/28/21: 115.7 kg (255 lb). Her course has been complicated by --GDMA2 - medicated (Metformin 100 BID--pt takes differently, only at bedtime) --PTL vs PTC--stable on procardia 20mg every 8 hours. s/p betamethasone x1 at 1400 05/25--will give second dose at 24h --care has included twice weekly US for short cervix (1.7cm). Not well seen on US 05/25 --possible IUGR--concern for 8th percentile on earlier scan, with normal follow up. 44th percentile 05/25 --lain's thyroiditis --depression/anxiety--stable on venlafaxine --BMI 39.9, so on ASA --Perinatology visit today --rubella non immune, Varicella non immune --low lying placenta at anatomy screen resolved --GBS pending, B+ See for labs. pending GBS, Rubella nonImmune, RH Positive (B+) Tdap UTD Flu shot due She is a 25 year old Her OB history: OB History Para Term AB Living 2 0 0 0 1 0 SAB TAB Ectopic Multiple Live Births 0 0 0 0 0 # Outcome Date GA Lbr Vick/2nd Weight Sex Delivery Anes PTL Lv 2 Current 1 AB Past Medical History: Diagnosis Date ??? Depressive disorder anxiety & depression; takes medication - venlafaxine ??? Diabetes (H) 03/10/2021 GDM ??? Fibromyalgia 2012 ??? PCOS (polycystic ovarian syndrome) 2012 ??? Thyroid disease hashimotos; takes synthroid Past Surgical History: Procedure Laterality Date ??? ABDOMEN SURGERY 2016 galbladder removed ??? ENT SURGERY 2014 tonsils, adenoids, wisdom teeth ??? ZIPPER SETTER CHAINSTITCH SURGERY 2018 ovarian cyst removed ? ? HEAD & NECK SURGERY 2015 lymph node removal ??? NO HISTORY OF SURGERY abstract No current outpatient medications on file. Allergies: Drospirenone, Drospirenone-ethinyl estradiol, Oxycodone, and Percocet [oxycodone-acetaminophen] REVIEW OF SYSTEMS: NEUROLOGIC: Negative EYES: Negative ENT: Negative GI: Negative : Negative ZIPPER SETTER CHAINSTITCH: Negative CV: Negative PULMONARY: Negative MUSCULOSKELETAL: Negative PSYCH: Negative Social History Socioeconomic History ??? Marital status: [...] Social Determinants of Health Financial Resource Strain: ??? Difficulty of Paying Living Expenses: Food Insecurity: ??? Worried About Running Out of Food in the Last Year: ??? Ran Out of Food in the Last Year: Transportation Needs: ??? Lack of Transportation (Medical): ??? Lack of Transportation (Non-Medical): Physical Activity: ??? Days of Exercise per Week: ??? Minutes of Exercise per Session: Stress: ??? Feeling of Stress : Social Connections: ??? Frequency of Communication with Friends and Family: ??? Frequency of Social Gatherings with Friends and Family: ??? Attends Temple Services: ??? Active Member of Clubs or Organizations: ??? Attends Club or Organization Meetings: ??? Marital Status: Intimate Partner Violence: ??? Fear of Current or Ex-Partner: ??? Emotionally Abused: ??? Physically Abused: ??? Sexually Abused: Family History Problem Relation Age of Onset ??? Obesity Mother ??? Depression Mother ??? Depression Father ??? Mental Illness Father ??? Substance Abuse Father ??? Thyroid Disease Paternal Grandmother ??? Family History Negative Other Exam: Vitals: BP 117/63 Temp 98.5 ??F (36.9 ??C) (Oral) Resp 16 LMP 10/09/2020 Paige: ctxs q 3 min on arrival, none now FHT: Category 1 on NST Alert Awake in NAD HEENT grossly normal Neck: no lymphadenopathy or thryoidomegaly Lungs CTAB Back No CVAT Heart RR ABD gravid, NABS, soft, NT on exam with NT fundus palpable Cervix is externally 2 cm, internal os unable to be reached by RN EXT: no edema, no calf tenderness Assessment/Plan: Altagracia Garcia is a 25 year old at 32w4d GA by LMP here with PTL vs PTC. --PTL vs PTC--stable on procardia 20mg every 8 hours. --s/p betamethasone x1 at 1400 05/25--will give second dose at 24h --care has included twice weekly US for short cervix (1.7cm) (not well seen 05/25) --concern for 8th percentile on earlier scan, with normal follow up 05/25 (44th percentile) --A2 GDM on metformin --lian's thyroiditis --depression/anxiety--stable on venlafaxine --BMI 39.9, so on ASA --Perinatology visit today --rubella non immune, Varicella non immune --low lying placenta at anatomy screen resolved --GBS pending, B+ Jaimie Gutiérrez MD Dept of [facility] May 25, 2021 Laury Waters MD on 05/26/2021 at 10:02 AM documented in this encounter Miscellaneous Notes Provider Notification - Spring Flores RN - 05/26/2021 2:30 PM CDT 05/26/21 1411 Provider Notification Provider Name/Title Dr. Waters Method of Notification In Department;At Bedside Request Evaluate - Remote Notification Reason Status Update Discharge instructions given. Patient verbalized understanding. Instructed to call provider if further questions or concerns. Discharged to home ambulatory. Provider Notification - Spring Flores RN - 05/26/2021 2:11 PM CDT 05/26/21 1411 Provider Notification Provider Name/Title Dr. Waters Method of Notification Phone Request Evaluate - Remote Notification Reason Status Update Denies feeling any contractions or cramping. Reactive tracing. BPP 05/17 this AM at [facility]. Dr. Waters updated. Order received for discharge. Patient to follow up at own provider on . Patient to continue Nifedipine as ordered by Dr. Waters. Plan of Care - Spring Flores RN - 05/26/2021 11:06 AM CDT 1020- To [facility] for scheduled appointment. Provider Notification - Spring Flores RN - 05/26/2021 11:00 AM CDT 05/26/21 0845 Provider Notification Provider Name/Title Dr. Waters Method of Notification Phone Request Evaluate - Remote Order received for regular diet, OK to saline lock IV, and discontinue AM Metformin. Provider Notification - Lisa Tsai RN - 05/26/2021 2:01 AM CDT 05/26/21 0201 Provider Notification Provider Name/Title Dr. Lucas Method of Notification Phone Request Evaluate - Remote Notification Reason Status Update Physician informed of previously increased cramping and pressure, and SVE. Pt currently denies cramping or pressure. No regular contractions noted via toco. Baby is difficult to monitor d/t gestationalage and maternal body habitus. Orders received to remove external monitors and preform NST every 8 shift, unless clinically indicated. Also, do not check SVE in AM, unless clinically indicated. Pt alsocomplains of a BARRETT. Tylenol requested. Orders received for tylenol, 650 mg, q4h, prn mild pain. Telephone orders read back and verified. Will inform pt of plan of care. Lisa Tsai RN on 05/26/2021 at 3:20 AM Plan of Care - Lisa Tsai RN - 05/26/2021 12:15 AM CDT Patient complained of increased back pain and pelvic pressure with contractions. Cervix checked. Outer os 2. Unable to reach inner os. No bloody show on gloves. Patient encouraged to turn to her side. Lisa Tsai RN on 05/26/2021 at 12:25 AM Provider Notification - Lisa Tsai RN - 05/25/2021 10:43 PM CDT 05/25/21 0568 Provider Notification Provider Name/Title Dr. Lucas Method of Notification Phone Request Evaluate - Remote Notification Reason Other (Comment) Nurse called Dr. Lucas with several questions. Orders received: - Collect GBS - Do NOT administer abx for GBS unknown right now - NO blood work right now. Collect cbc, type and screen, and trep if transitions to labor - Reorder home dose of effexor Telephone orders read back and verified. Will inform pt of plan of care. Lisa Tsai RN on 05/25/2021 at 10:47 PM - Provider Notification - Lisa Tsai RN - 05/25/2021 8:45 PM CDT 05/25/212044 Provider Notification Provider Name/Title Dr. Lucas Method of Notification Phone Request Evaluate - Remote Notification Reason Lab/Diagnostic Study;Status Update Ultrasound results received. Reviewed. No change in plan of care. Additional orders received: - SVE at 0630 unless clinically indicated beforehand - Text page results if changed Telephone orders read back and verified. Will inform pt of plan of care. Lisa Tsai RN on 05/25/2021 at 9:00 PM Provider Notification - Nery Means RN - 05/25/2021 6:20 PM CDT 05/25/211814 Provider Notification Provider Name/Title Dr Gutiérrez Method of Notification Phone Request Evaluate - Remote Notification Reason Patient Arrived Dr Jaimie Gutiérrez informed of patient arrival and assessment including the following: Reason for maternal/ assessment uterine contractions. Pt reports that she was sent from [facility] due to contractions that started yesterday, pt not feeling them now. status normalbaseline, moderate variability, accelerations present and no decelerations. Plan per provider/ordersreceived for nifedipiene, second betamethasone tomorrow, metformin as scheduled, check OT per pt home routine, ultrasound to check position of baby, wet prep, chlamydia and gonorrhea, SVE and IV fluid bolus. Per MD have pt remain NPO until ultrasound confirms if baby is cephalic. Plan of Care - Nery Means RN - 05/25/2021 5:58 PM CDT Data: Patient presented to [facility]: 05/25/2021 5:31 PM. Reason for maternal/ assessment is uterine contractions. Pt was transferred from [facility] due to contractions that started yesterday. She was sent to [facility] after reporting symptoms at clinic visit. Cervix had changed and pt was transferred to higher level of care due to NICU. Patient is a . record reviewed. has been complicated by GDM diet controlled. Gestational Age 32w4d. VSS. movement active. Patient denies leaking of vaginal fluid/rupture of membranes, vaginal bleeding, nausea, vomiting, headache, visual disturbances, epigastric or URQ pain, significant edema. Support person is not present. Action: Verbal consent for EFM. Triage assessment completed. Bill of rights reviewed. Response: Patient verbalized agreement with plan. Will contact Dr Jaimie Gutiérrez with update and for further orders. documented in this encounter Plan of Treatment Upcoming Encounters Date Type Specialty Care Team Description 12/28/2022 Virtual Visit Endocrinology Merle Mccarthy MD [address] [place] [address] (Wo rk) documented as of this encounter Procedures Procedure Name Priority Date/Time Associated Comments Diagnosis GLUCOSE BY METER Routine 05/26/2021 11:18 Results for this AM CDT procedure are i n the results section. GLUCOSE BY METER Routine 05/26/2021 6:32 AM Resul ts for this CDT procedure are i n the results section. GROUP B STREP PCR STAT 05/25/2021 11:03 Result s for this PM CDT procedure are i n the results section. US OB > 14 WEEKS Routine 05/25/2021 7:38 PM Resul ts for this CDT procedure are i n the results section. CHLAMYDIA STAT 05/25/2021 6:45 PM Results f or this TRACHOMATIS/NEISSERIA CDT proced ure are in GONORRHOEAE BY PCR the resul ts section. WET PREPARATION Routine 05/25/2021 6:45 PM Result s for this CDT procedure are i n the results section. HEPATITIS B SURFACE Routine 12/04/2020 12:00 Resu lts for this ANTIGEN (EXTERNAL AM STOCK WETTER procedure are in RESULT) the results section. HIV 1&2 ANTIBODY Routine 12/04/2020 12:00 Results for this (EXTERNAL RESULT) AM STOCK WETTER procedure are in the results section. RUBELLA ANTIBODY IGG Routine 12/04/2020 12:00 Res ults for this (EXTERNAL RESULT) AM STOCK WETTER procedure are in the results section. documented in this encounter Results (ABNORMAL) Glucose by meter (05/26/2021 11:18 AM CDT) P athologist Signature GLUCOSE BY 163 (H) 70 - 99 05/26/2021 [facility] METER POCT mg/dL 11:25 AM CDT POC Specimen Anatomical Collection Method Collection Time Receive d Time (Source) Location / / Volume Laterality Blood BLOOD SPECIMEN / 05/26/2021 11:18 08/2 021 Unknown AM CDT 11:25 AM CDT Laury Waters MD LAB - BEAKER POCT Performing Organization Address City/State/ZIP Code Phon e Number [place] [address] Care Lab [address] Lab (1st floor, no room number) (ABNORMAL) Glucose by meter (05/26/2021 6:32 AM CDT) P athologist Signature GLUCOSE BY 131 (H) 70 - 99 05/26/2021 [facility] METER POCT mg/dL 6:38 AM CDT POC Specimen Anatomical Collection Method Collection Time Receive d Time (Source) Location / / Volume Laterality Blood BLOOD SPECIMEN / 05/26/2021 6:32 AM 05/26 6:38 Unknown CDT AM CDT Radha Lucas MD LAB - BEAKER POCT Performing Organization Address City/State/ZIP Code Phon [place] [address] Care [facility] [address] Lab (1st floor, no room number) Group B strep PCR (05/25/2021 11:03 PM CDT) Analysis Performed At Patho logist Time Signature Group B Strep Negative Negative 05/27/2021 [facility] PCR 7:27 AM CDT LABORATORY Comment: Presumed negative for Streptoco ccus agalactiae (Group B Streptococcus) or the number of organisms may be below the limit of detection of the assay. Penicillin, amoxicillin, or No 05/27/2021 7 :27 AM CDT [facility] cephalosporin allergy? Specimen Anatomical Location Collection Method Collection Time Received Time (Source) / Laterality / Volume Swab STRUCTURE OF Non-blood 05/25/2021 11:03 05/25/2021 RECTOVAGINAL SEPTUM Collection / PM CDT 11:10 PM CDT / Unknown Unknown Narrative [facility] - 05/27/2021 7:27 AM C DT The [employer] Xpert GBS LB Assay, performe d on the [employer]?? Instrument Systems, is a qualitative in vitro diagnostic test ivan igned to detect Group B Streptococcus (GBS) DNA from enriched vaginal/rectal swab sp ecimens, using fully automated, real-time polymerase chain reaction (PCR) with flu orogenic detection of the amplified DNA. Xpert GBS LB Assay testing is indicated as an aid in determining GBS colonization status in antepartum women. This assay d oes not diagnose or monitor treatment for GBS infections. The Smart [employer] Xpert GBS LB Ass ay is intended for use in hospital, reference or state laboratory settings. The device is not intended for upmzs-ce-itqo use. Radha Lucas MD LAB - MICRO GENERAL ORDERABL ES Performing Organization Address City/State/ZIP Code Phon e Number [facility] [place] [place] [phone] Diag. Lab [address] [facility], [address] [facility] Infectious [place], [place] [phone] Diseases Diagnostic [id number], [facility] Lab (IDDL) [address] [facility], [address] US OB > 14 Weeks (05/25/2021 7:38 PM CDT) Anatomical Region Laterality Modality Abdomen/Pelvis Ultrasound Specimen (Source) Anatomical Collection Method Collection Time Re ceived Time Location / / Volume Laterality 05/25/2021 6:55 PM CDT Impressions 05/25/2021 8:05 PM CDT IMPRESSION: ?? 1. ??Single living intrauterine gestatio n. 2. ??Based on this ultrasound, composite age of 32 weeks 4 days with EDC 07/16/2021. 3. ??Normal interval growth. 4. ??Femur length 3rd percentile, less t fishman 1st percentile on prior. Narrative 05/25/2021 8:05 PM CDT EXAM: US OB > 14 WEEKS LOCATION: [facility] DATE/TIME: 05/25/2021 6:55 PM INDICATION: , check presentation , EFW needed. contractions. COMPARISON: 05/01/2021. TECHNIQUE: Routine. FINDINGS: Single intrauterine gestation, cephalic presentation. Placenta is located posterior without previa. Amniotic fluid is normal. Uterus is normal. Maternal adnexa (right and left ovaries) show no abnormalities. ANOMALY SCREEN: Survey of the feta l anatomy is not repeated. BIOMETRY: Biparietal Diameter: 8.30 cm, 33 weeks 3 days Head Circumference: 30.33 cm, 33 weeks 5 days Abdominal Circumference: 28.10 cm, 32 we eks 1 day Femur Length: 5.83 cm, 30 weeks 4 days Estimated Weight: 1860 g EFW Percentile: 44% Heart Rate: 156 bpm Cervical Length: Not well seen EDC by First US exam: 07/16/2021 EDC by This US exam: 07/16/2021 Composite Age by First US: 32 weeks 4 da ys Composite Age by This US: 32 weeks 4 day s Procedure Note Puma Narayan MD - 05/25/2021F ormatting of this note might be different from the original. EXAM: US OB > 14 WEEKS LOCATION: [facility] DATE/TIME: 05/25/2021 6:55 PM INDICATION: , check presentation , EFW needed. contractions. COMPARISON: 05/01/2021. TECHNIQUE: Routine. FINDINGS: Single intrauterine gestation, cephalic presentation. Placenta is located posterior without previa. Amniotic fluid is normal. Uterus is normal. Maternal adnexa (right and left ovaries) show no abnormalities. ANOMALY SCREEN: Survey of the feta l anatomy is not repeated. BIOMETRY: Biparietal Diameter: 8.30 cm, 33 weeks 3 days Head Circumference: 30.33 cm, 33 weeks 5 days Abdominal Circumference: 28.10 cm, 32 we eks 1 day Femur Length: 5.83 cm, 30 weeks 4 days Estimated Weight: 1860 g EFW Percentile: 44% Heart Rate: 156 bpm Cervical Length: Not well seen EDC by First US exam: 07/16/2021 EDC by This US exam: 07/16/2021 Composite Age by First US: 32 weeks 4 da ys Composite Age by This US: 32 weeks 4 day s IMPRESSION: 1. Single living intrauterine gestation. 2. Based on this ultrasound, composite a ge of 32 weeks 4 days with EDC 07/16/2021. 3. Normal interval growth. 4. Femur length 3rd percentile, less ozzie n 1st percentile on prior. Jaimie Gutiérrez MD IMG US ORDERABLES Wet preparation (05/25/2021 6:45 PM CDT) Analysis Performed At Path logist Time Signature Trichomonas Absent Absent JOSE MANUEL 05/25/2021 LABORATORY 7:34 PM CDT Yeast Absent Absent JOSE MANUEL 05/25/2021 [facility] LABORATORY 7:34 PM CDT Clue Cells Absent Absent JOSE MANUEL 05/25/2021 [facility] LABORATORY 7:34 PM CDT WBCs/high power None None JOSE MANUEL 05/25/2021 LABORATORY field 7:34 PM CDT Specimen Anatomical Collection Method Collection Time Receive d Time (Source) Location / / Volume Laterality Swab VAGINAL STRUCTURE Non-blood 05/25/2021 6:45 PM 05/10 7:16 / Unknown Collection / CDT PM CDT Unknown Jaimie Gutiérrez MD LAB - MICRO GENERAL ORDERABL ES Performing Organization Address City/State/ZIP Code Phon [place] [phone] Care [address] Lab (1st floor, no room number) Chlamydia trachomatis/Neisseria gonorrhoeae by PCR (05/25/2021 6:45 PM CDT) [facility] Method Time Signature Chlamydia Negative Negative 05/26/2021 [facility] Trachomatis 11:22 AM CDT LABORATORY Comment: Negative for C. trachomatis rRNA by cervantes scription mediated amplification. A negative result by leaflet distributor media dave amplification does not preclude the presence of infection because results are dependent on proper and adequate collection, absence of inhibitors and sufficient rRNA to be detected. Neisseria gonorrhoeae Negative Negative 05/26/2021 11: 22 AM CDT [facility] LABORATORY Comment: Negative for N. gonorrhoeae rRN A by leaflet distributor mediated amplification. A negative result by leaflet distributor mediate d amplification does not preclude the presence of C. trachomatis infection bec ause results are dependent on proper and adequate collection, absence of inhibito rs and sufficient rRNA to be detected. Specimen Anatomical Collection Method Collection Time Receive d Time (Source) Location / / Volume Laterality Swab CERVIX UTERI Non-blood 05/25/2021 6:45 PM 7:17 STRUCTURE / Collection / CDT PM CDT Unknown Unknown Jaimie Gutiérrez MD LAB - MICRO GENERAL ORDERABL ES Performing Organization Address City/[facility]/ZIP Code Phon e Number [facility] LABORATORY [facility] [place] [place] [phone] Diag. Lab [address] [facility], [address] [facility] LABORATORY [facility] Infectious [place], [place] [phone] Diseases Diagnostic [id number], [facility] Lab (IDDL) [address] [facility], [address] Rubella Antibody IgG (External Result) (12/04/2020 12:00 AM STOCK WETTER) Extended Systems Method Time Signature Rubella Nonreactive Nonreactive EXTERNAL LAB Antibody IgG (External) Comment: 7.7; non - immune Specimen (Source) Anatomical Location Collection Method / Collectio n Time Received Time / Laterality Volume 12/04/2020 Patient Reported LAB - HIM EXTERNAL RESULT Performing Organization Address City/[facility] Code Phon e Number EXTERNAL LAB EXTERNAL LAB External Lab HIV-1 Antibody (External Result) (12/04/2020 12:00 AM STOCK WETTER) Extended Systems Method Time Signature HIV 1&2 Negative Nonreactive EXTERNAL LAB Antibody (External) Specimen (Source) Anatomical Location Collection Method / Collectio n Time Received Time / Laterality Volume 12/04/2020 Patient Reported LAB - HIM EXTERNAL RESULT Performing Organization Address City/[facility]/ZIP Code Phon e Number EXTERNAL LAB EXTERNAL LAB External Lab Hepatitis B Surface Antigen (External Result) (12/04/2020 12:00 AM STOCK WETTER) Extended Systems Method Time Signature Hepatitis B Negative Nonreactive EXTERNAL LAB Surface Antigen (External) Specimen (Source) Anatomical Location Collection Method / Collectio n Time Received Time / Laterality Volume 12/04/2020 Patient Reported LAB - HIM EXTERNAL RESULT Performing Organization Address City/[facility]/ZIP Code Phon e Number EXTERNAL LAB EXTERNAL LAB External Lab documented in this encounter Visit Diagnoses Diagnosis contractions - Primary Unspecified abnormality of labor, antepa rtum Indication for care in labor or delivery Unspecified indication for care or inter vention related to labor and delivery, unspecified as to episode of care delivery Early onset of delivery, unspecified as to episode of care documented in this encounter Admitting Diagnoses Diagnosis Indication for care in labor or delivery Unspecified indication for care or inter vention related to labor and delivery, unspecified as to episode of care delivery Early onset of delivery, unspecified as to episode of care documented in this encounter Administered Medications Inactive Administered Medications - up to 3 most recent administrations Medication Order MAR Action Action Date Dose Rate Site acetaminophen (TYLENOL) 325 MG tablet Starting on Tue05/26/21 at 0200, For 1 dose, Lisa Tsai: deidret override Maximum acetaminophen dose from all sources = 75 mg/kg /day not to exceed 4 grams/day. acetaminophen (TYLENOL) tablet 650 mg Given 05/26/2021 2:07 AM CDT 650 mg 650 mg, Oral, EVERY 4 HOURS PRN, mild pain, fever, Starting on Tue05/26/21 at 0204, Maximum acetaminophen dose from all sources = 75 mg/kg/day not to exceed 4 grams/day. betamethasone acet & sod phos Given 05/26/2021 2:03 PM CDT 12 mg Left Thigh (CELESTONE) injection 12 mg 12 mg, Intramuscular, ONCE, On Tue05/26/21 at 1400, For 1 dose lactated ringers BOLUS 1,000 mL New Bag 05/25/2021 6:32 PM CDT 1,000 mLs Intravenous, 1,000 mL, ONCE, On Tue05/25/21 at 1830, For 1 dose, OB Preadmission lactated ringers infusion New Bag 05/26/2021 3:26 AM CDT 125 mL/hr at 125 mL/hr, Intravenous, CONTINUOUS, OB Preadmission, Starting on Tue05/25/21 at 1930, Until Tue05/26/21 at 1705 New Bag 05/25/2021 7:45 PM CDT 125 mL/hr levothyroxine (SYNTHROID/LEVOTHROID) tablet Given 05/10 6:28 AM CDT 188 mcg 188 mcg 188 mcg, Oral, EVERY MORNING BEFORE BREAKFAST, First dose on Tue05/26/21 at 0730, Separate oral administration of iron- or calcium-containing products and levothyroxine by at least 4 hours. metFORMIN (GLUCOPHAGE) tablet 1,000 mg Given 05/25/2021 9:26 PM CDT 1,000 mg 1,000 mg, Oral, 2 TIMES DAILY WITH MEALS, First dose on Tue05/25/21 at 1830, If the patient receives intravenous, iodinated contrast and patient GFR is greater than 60 mL/min/1.7m2, continue metformin. Contact provider for 'hold' or 'no hold' instructions if no GFR or if GFR is less than 60 mL/min/1.7m2. NIFEdipine (PROCARDIA) capsule 20 mg Given 05/26/2021 2:03 PM CDT 20 mg 20 mg, Oral, EVERY 8 HOURS SCHEDULED, First dose on Tue05/25/21 at 2200 Given 05/26/2021 6:24 AM CDT 20 mg Given 05/25/2021 10:15 PM CDT 20 mg venlafaxine (EFFEXOR-XR) 24 hr capsule 2 25 mg Given 05/26/2021 9:32 AM CDT 225 mg 225 mg, Oral, DAILY, First dose on Tue05/26/21 at 0900 documented in this encounter Active and Recently Administered Medications Times are shown in CDT. Scheduled Medication Order 05/24/2021 05/25/2021 05/26/2021 betamethasone acet & sod phos (CELESTONE) injection 12 mg (COMPL ETED) 1403 (Given - Provider: Spring Flores RN) 12 mg, Intramuscular, ONCE, On Tue05/26/21 at 1400, For 1 dose lactated ringers BOLUS 1,000 mL (COMPLETED) 1831 (New Bag - Provider: Nery Means RN)194 (Stopped - Provider: Lisa Tsai RN) Intravenous, 1,000 mL, ONCE, On 05/25 at 1830, For 1 dose, OB Preadmission levothyroxine (SYNTHROID/LEVOTHROID) tablet 188 mcg 0628 (Given - Provider: Lisa Tsai RN)0631 (Canceled Entry - Provider: Lisa Tsai, LADONNA) 188 mcg, Oral, EVERY MORNING BEFORE GERALDO KFAST, First dose on Tue05/26/21 at 0730, Separate oral administration of iron- or calcium-containing products and levothyroxine by at least 4 hours. metFORMIN (GLUCOPHAGE) tablet 1,000 mg 2 126 (Given - Provider: Lisa Tsai RN) 0856 (Not Given - Provider: Spring parada RN - Reason: Order to hold this dose - Comment: Patient only takes at bedtime. Order received to discontinue AM dose.) 1,000 mg, Oral, 2 TIMES DAILY WITH MEALS , First dose on Tue05/25/21 at 1830, If the patient receives intravenous, iodinated contrast and patient GFR is greater than 60 mL/min/1.7m2, continue metformin. Contact provider for 'hold' or 'no hold' instructions if no GFR or if GFR is less than 60 mL/min/1.7m2. NIFEdipine (PROCARDIA) capsule 20 mg 221 5 (Given - Provider: Lisa Tsai RN) 0624 (Given - Provider: Lisa Tsai RN)1403 (Given - Provider: Spring Flores RN) 20 mg, Oral, EVERY 8 HOURS SCHEDULED, First dose on Tue05/25/21 at 2200 venlafaxine (EFFEXOR-XR) 24 hr capsule 225 mg 0932 (Given - Provider: Spring Flores RN) 225 mg, Oral, DAILY, First dose on Tue05/26/21 at 0900 Continuous Medication Order 05/24/2021 05/25/2021 05/26/2021 lactated ringers infusion 1945 (New Bag - Provid er: Lisa Tsai RN) 0326 (New Bag - Provider: Lisa Tsai RN)0938 (Stopped - Provider: Spring Flores RN) at 125 mL/hr, Intravenous, CONTINUOUS, O B Preadmission, Starting on Tue05/25/21 at 1930, Until Tue05/26/21 at 1705 PRN Medication Order 05/24/2021 05/25/2021 05/26/2021 acetaminophen (TYLENOL) tablet 650 mg 0207 (Given - Provider: Lisa Tsai RN) 650 mg, Oral, EVERY 4 HOURS PRN, mild pa in, fever, Starting on Tue05/26/21 at 0204, Maximum acetaminophen dose from all sources = 75 mg/kg/day not to exceed 4 grams/day. documented in this encounter Care Teams Icing Mixer Relationship Specialty Start Date End Date Stortz, Billie PCP - General 12/17/19 [facility] [address] [place] [address] Rocio Mccarthy MD Assigned Endocrinology 08/01/20 11/28/21 [address] Provider [place], [place] [phone] Anthony Shaffer MD Assigned OBGYN Provider 05/10/21 05/07/22 [address] [facility] [address] [place], [place] [id number] documented as of this encounter
--- OUTSIDE RECORDS SUMMARY | 2022-08-02 15:07 | XMS_ITS | Encounter Summary ---
:1995 Author Organization [place] Address [address] [facility] [place] [address] Care Team Providers Name Role Phone Billie Guadarrama Primary Care Provider Rocio Mccarthy MD Unavailable Reason for Visit Reason Comments Ultrasound L2-short cervix on outside U S, GDM on Metformin Encounter Details Date Type Department Care Team Description 05/01/2021 PRE VISIT [facility] Lisa Larose Ultra sound (L2-short Maternal Medicine M, RN cerv ix on outside US, 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 documented as of this encounter Plan of Treatment Upcoming Encounters Date Type Specialty Care Team Description 12/28/2022 Virtual Visit Endocrinology Merle Mccarthy MD [address] [place], [place] [phone] (Wo rk) documented as of this encounter Visit Diagnoses Not on filedocumented in this encounter Care Teams Parts Counter Clerk Relationship Specialty Start Date End Date Billie Guadarrama PCP - General 12/17/19 [facility] [address] [place] [address] Rocio Mccarthy MD Assigned Endocrinology 08/01/20 11/28/[address] [facility] [address] [place] [address] documented as of this encounter
--- OUTSIDE RECORDS SUMMARY | 2022-08-02 15:07 | XMS_ITS | Encounter Summary ---
:1995 Author Organization [place] Address [address] [facility] [place] [address] Care Team Providers Name Role Phone Billie Guadarrama Primary Care Provider Rocio Mccarthy MD Unavailable Encounter Details Date Type Department Care Team Description 04/30/2021 Medical Correspondence [facility] Scan, REFERRAL 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 [address] [place] [address] Rocio Mccarthy MD Assigned Endocrinology 08/01/20 11/28/[address] [facility] [address] [place] [address] documented as of this encounter
--- OUTSIDE RECORDS SUMMARY | 2022-08-02 15:08 | XMS_ITS | Encounter Summary ---
:1995 Author Organization [place] Address [address] [place] [address]. [place] [address] Care Team Providers Name Role Phone Selinsusan Billie Primary Care Provider Reason for Referral Diagnostic Imaging Ultrasound (Routine) - Closed Specialty Diagnoses / Procedures Referred By Contact Refer red To Contact Radiology. 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 Rocio Mccarthy, Rh Ultrasound Rscc Procedures US Thyroid [address] [facility] [address] [place], [place] [address] [place] [address] Fax: Referral ID Status Reason Start Date Expiration Date Visits Requ ested Visits Authorized [id number] Closed 04/09/2020 04/09/2021 1 1 Encounter Details Date Type Department Care Team Description 04/14/2020 [facility] Antonio thyroidism due to [place] Special[facility] MD Rocio Duane's thyroid[facility] [address] [address] [place] [address] [facility] [phone] Social History Tobacco Use Types Packs/Day Years [...] at Date Recorded 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 documented as of this encounter Medications at Time of Discharge Medication Sig Dispensed Refills Start Date End Date Vit-Fe Take by mouth daily 0 Fumarate-FA ( VITAMIN PO) LETROZOLE PO Take 5 mg by mouth 0 05/11 daily Patient will be taking this through 04/12/2020. levothyroxine Take 175 mcg by 0 2019 (SYNTHROID/LEVOTHROID) 175 mouth daily MCG tablet NO ACTIVE MEDICATIONS . 0 0 05/09/2002 documented as of this encounter Plan of Treatment Upcoming Encounters Date Type Specialty Care Team Description 12/28/2022 Virtual Visit Endocrinology Merle Mccarthy MD [address] [place] [address] (Wo rk) documented as of this encounter Procedures Procedure Name Priority Date/Time Associated Diagnosis Comme nts US THYROID Routine 04/14/2020 3:29 PM Hypothyroidism due to Results for this CDT Duane's thyroiditis proc edure are in the results section. documented in this encounter Results US Thyroid (04/14/2020 3:29 PM CDT) Anatomical Region Laterality Modality Head Ultrasound Specimen (Source) Anatomical Location Collection Method / Collectio n Time Received Time / Laterality Volume Impressions 04/14/2020 3:39 PM CDT IMPRESSION: 1. ??Heterogeneity of both thyroid lobes suggestive of chronic thyroiditis. 2. ??No nodules. Nodules are characterized per ACR Thyroid Imaging, Reporting and Data System (TI-RADS): White Paper of the ACR TI-RADS Committee Pankaj Nelson et al. Journal of t he [employer] 2017. Volume 14 (2017), Issue 5, 609-539. 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 COMPARISON: None available. FINDINGS: RIGHT lobe: 4.7 x 2.0 x 1.7 cm. Heteroge nous echotexture. Isthmus: 9 mm. LEFT lobe: 5.0 x 2.1 x 1.6 cm. Heterogen ous echotexture. NECK: No cervical lymphadenopathy. NODULES: None. Procedure Note Jia Petty MD - 04/14/2020Form atting of this note might be different from the original. 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 COMPARISON: None available. FINDINGS: RIGHT lobe: 4.7 x 2.0 x 1.7 cm. Heteroge nous echotexture. Isthmus: 9 mm. LEFT lobe: 5.0 x 2.1 x 1.6 cm. Heterogen ous echotexture. NECK: No cervical lymphadenopathy. NODULES: None. IMPRESSION: 1. Heterogeneity of both thyroid lobes s uggestive of chronic thyroiditis. 2. No nodules. Nodules are characterized per ACR Thyroid Imaging, Reporting and Data System (TI-RADS): White Paper of the ACR TI-RADS Committee Pankaj Nelson et al. Journal of t he [employer] 2017. Volume 14 (2017), Issue 5, 587-523. JIA PETTY MD Rocio Mccarthy MD IMG US ORDERABLES documented in this encounter Visit Diagnoses Diagnosis 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's thyroi ditis documented in this encounter Care Teams District Attorney Relationship Specialty Start Date End Date Billie Guadarrama PCP - General 12/17/19 [facility] [address] [place] [address] documented as of this encounter
--- OUTSIDE RECORDS SUMMARY | 2022-08-02 15:08 | XMS_ITS | Encounter Summary ---
:1995 Author Organization [place] Address [address] [place] [address]. 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 documented as of this encounter Miscellaneous Notes Result Encounter Note - Rocio Mccarthy MD - 04/14/2020 1:30 PM CDT Labs/results noted. Please see telephone encounter dated 04/16/2020. documented in this encounter Plan of Treatment Upcoming Encounters Date Type Specialty Care Team Description 12/28/2022 Virtual Visit Endocrinology Merle Mccarthy MD [address] [place] [address] (Wo rk) documented as of this encounter Procedures Procedure Name Priority Date/Time Associated Diagnosis Comme nts TSH Routine 04/14/2020 1:35 PM Hypothyroidism due to Results for this CDT Duane's procedure are i n thyroiditis the results section. THYROID PEROXIDASE Routine 04/14/2020 1:35 PM Hypothyroidism d ue to Results for this ANTIBODY CDT Duane's procedure are i n thyroiditis the results section. T4 FREE Routine 04/14/2020 1:35 PM Hypothyroidism due to Results for this CDT Duane's procedure are i n thyroiditis the results section. T3 FREE Routine 04/14/2020 1:35 PM Hypothyroidism due to Results for this CDT Duane's procedure are i n thyroiditis the results section. documented in this encounter Results T4 free (04/14/2020 1:35 PM CDT) P athologist Signature T4 Free 0.81 0.76 - 1.46 04/15/2020 [facility] ng/dL 9:[address] [facility] Specimen Anatomical Collection Method Collection Time Receive d Time (Source) Location / / Volume Laterality Blood specimen 04/14/2020 1:35 PM 020 1:40 (specimen) CDT PM CDT Rocio Mccarthy MD LAB - BLOOD ORDERABLES Performing Organization Address City/State/ZIP Code Phon e Number [facility] [place] [address] [place] [address] (ABNORMAL) Thyroid peroxidase antibody (04/14/2020 1:35 PM CDT) Analysis Performed At Patho logist Time Signature Thyroid 496 (H) <35 IU/mL 04/15/2020 [facility] Peroxidase 10:23 AM CDT [facility] Antibody [facility] Specimen Anatomical Collection Method Collection Time Receive d Time (Source) Location / / Volume Laterality Blood specimen 04/14/2020 1:35 PM 020 1:40 (specimen) CDT PM CDT Authorizing Provider Result Brian Mccarthy MD LAB - BLOOD ORDERABLES Performing Organization Address City/[facility]/ZIP Code Phon e Number [facility] [address] [place] [address] [facility] (ABNORMAL) TSH (04/14/2020 1:35 PM CDT) P athologist Signature TSH 5.34 (H) 0.40 - 04/15/2020 [facility] 4.00 mU/L 10:[address] [facility] Specimen Anatomical Collection Method Collection Time Receive d Time (Source) Location / / Volume Laterality Blood specimen 04/14/2020 1:35 PM 020 1:40 (specimen) CDT PM CDT Rocio Mccarthy MD LAB - BLOOD ORDERABLES Performing Organization Address City/[facility]/ZIP Code Phon e Number [facility] [place] [address] [place] [address] (ABNORMAL) T3 Free (04/14/2020 1:35 PM CDT) P athologist Signature Free T3 2.0 (L) 2.3 - 4.2 04/14/2020 [facility] pg/mL 7:[address] [facility] Specimen Anatomical Collection Method Collection Time Receive d Time (Source) Location / / Volume Laterality Blood specimen 04/14/2020 1:35 PM 020 1:40 (specimen) CDT PM CDT Authorizing Provider Result Brian Mccarthy MD LAB - BLOOD ORDERABLES Performing Organization Address City/[facility]/ZIP Code Phon e Number [facility] [address] [place], [place] [phone] [place] [address] documented in this encounter Visit Diagnoses Diagnosis 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's thyroi ditis documented in this encounter Care Teams Valet Parker Relationship Specialty Start Date End Date Billie Guadarrama PCP - General 12/17/19 [facility] [address] [place] [address] documented as of this encounter
--- OUTSIDE RECORDS SUMMARY | 2022-08-02 15:08 | XMS_ITS | Encounter Summary ---
:1995 Author Organization [facility] Address [address] [place] [address]. 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 documented as of this encounter Plan of Treatment Upcoming Encounters Date Type Specialty Care Team Description 12/28/2022 Virtual Visit Endocrinology Merle Mccarthy MD [address] [place] [address] (Wo rk) documented as of this encounter Visit Diagnoses Not on filedocumented in this encounter Care Teams Motorsports Technician Relationship Specialty Start Date End Date Billie Guadarrama PCP - General 12/17/19 [facility] [address] [facility] [place] [address] documented as of this encounter
--- OUTSIDE RECORDS SUMMARY | 2022-08-02 15:08 | XMS_ITS | Encounter Summary ---
:1995 Author Organization [facility] [place] Address [address] [place] [address]. 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 documented as of this encounter Miscellaneous Notes Telephone Encounter - Robert Reveles Tree - 04/17/2020 12:04 PM CDT Images from the original note were not included. Prior Authorization Approval Authorization Effective Date: 03/17/2020 Authorization Expiration Date: 04/16/2021 Medication: Synthroid 88MCG- APPROVED Approved Dose/Quantity: Reference #: Insurance Company: [employer] - Expected CoPay: CoPay Card Available: [facility] Assistance Needed: Which Pharmacy is filling the prescription (Not needed for infusion/clinic administered): [facility] [address] [place] [address] Pharmacy Notified: Yes Patient Notified: Comment: Instructed pharmacy to notify patient when script is ready to pickle cutter/ship. Telephone Encounter - Robert Reveles - 04/16/2020 3:55 PM CDT Images from the original note were not included. 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 Previously Tried and Failed: Rationale: covrmymeds Cates [id number] Insurance Name: Insurance ID: Pharmacy Information (if different than what is on RX) Name: zinaofpetra documented in this encounter Plan of Treatment Upcoming Encounters Date Type Specialty Care Team Description 12/28/2022 Virtual Visit Endocrinology Merle Mccarthy MD [address] [place] [address] (Wo rk) documented as of this encounter Visit Diagnoses Not on filedocumented in this encounter Care Teams Financial Recruiter Relationship Specialty Start Date End Date Billie Guadarrama PCP - General 12/17/19 [facility] [address] [place] [address] documented as of this encounter
--- OUTSIDE RECORDS SUMMARY | 2022-08-02 15:08 | XMS_ITS | Encounter Summary ---
:1995 Author Organization [facility] Address [address] [place] [address]. 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 documented as of this encounter Miscellaneous Notes Telephone Encounter - Chelita Harrell CMA - 04/16/2020 2:24 PM CDT Message sent via [employer]. Maritza Harrell CMA [facility] Telephone Encounter - Rocio Mccarthy MD - 04/16/2020 2:12 PM CDT ENDO [facility]ROID [facility] Latest Ref Rng & Units 04/14/2020 01/28/2020 TSH 0.40 - 4.00 mU/L 5.34 (H) 0.577 T4 FREE 0.76 - 1.46 ng/dL 0.81 FREE T3 2.3 - 4.2 pg/mL 2.0 (L) THYR PEROXIDASE ENMA <35 IU/mL 496 (H) TPO antibodies are positive. 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 Currently taking ADITYA SYNTHROID 175 mcg/day. Dose was decreased few months back by OB provider (from 200) Based on labs recommend to increase dose of SYNTHORID to 188 mcg/day. It will be 100+88 mcg tab ( 2 different strengths). Labs in 6 weeks. Rx sent. Please call patient with above information and help schekoko. Rocio Mccarthy MD Endocrinology [facility] April 16, 2020 documented in this encounter Plan of Treatment Upcoming Encounters Date Type Specialty Care Team Description 12/28/2022 Virtual Visit Endocrinology Merle Mccarthy MD [address] [place] [address] (Wo rk) documented as of this encounter Results TSH (05/21/2020 11:45 AM CDT) athologist Signature TSH 0.48 0.40 - 4.00 05/22/2020 [facility] mU/L 9:49 AM CDT [facility] Specimen Anatomical Collection Method Collection Time Receive d Time (Source) Location / / Volume Laterality Blood specimen 05/21/2020 11:45 0 (specimen) AM CDT 11:46 AM CDT Rocio Mccarthy MD LAB - BLOOD ORDERABLES Performing Organization Address City/[facility]/ZIP Code Phon e Number [facility] [address] [place] [address] T3 Free (05/21/2020 11:45 AM CDT) P athologist Signature Free T3 2.7 2.3 - 4.2 05/21/2020 [facility] pg/mL 8:27 PM CDT [facility] Specimen Anatomical Collection Method Collection Time Receive d Time (Source) Location / / Volume Laterality Blood specimen 05/21/2020 11:45 0 (specimen) AM CDT 11:46 AM CDT Rocio Mccarthy MD LAB - BLOOD ORDERABLES Performing Organization Address City/[facility]/ZIP Code Phon e Number [facility] [address] [place] [address] [facility] ([facility]) T4 free (05/21/2020 11:45 AM CDT) athologist Signature T4 Free 1.47 (H) 0.76 - 05/22/2020 [facility] 1.46 ng/dL 9:42 AM CDT [facility] Specimen Anatomical Collection Method Collection Time Receive d Time (Source) Location / / Volume Laterality Blood specimen 05/21/2020 11:45 0 (specimen) AM CDT 11:46 AM CDT Rocio Mccarthy MD LAB - BLOOD ORDERABLES Performing Organization Address City/[facility]/ZIP Code Phon e Number [facility] [address], [place] [address] documented in this encounter Visit Diagnoses Diagnosis 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's thyroi ditis - Primary documented in this encounter Care Teams Line Patrolman Relationship Specialty Start Date End Date Billie Guadarrama PCP - General 12/17/[address] [facility] [address] [place] [address] documented as of this encounter
--- OUTSIDE RECORDS SUMMARY | 2022-08-02 15:08 | XMS_ITS | Encounter Summary ---
:1995 Author Organization [place] Address [address] [place] [address]. [place] [address] Care Team Providers Name Role Phone Billie Guadarrama Primary Care Provider Reason for Visit Reason Onset Date Comments Refill Request 07/25/2020 Encounter Details Date Type Department Care Team Description 07/25/2020 [facility] Refill [facility] Merle Mccarthy, Refill Request Anastasia KRAMER [address] 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 documented in this encounter Plan of Treatment Upcoming Encounters Date Type Specialty Care Team Description 12/28/2022 Virtual Visit Endocrinology Merle Mccarthy MD [address] [place] [address] (Wo rk) documented as of this encounter Visit Diagnoses Diagnosis 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's thyroi ditis documented in this encounter Care Teams Mold Polisher Relationship Specialty Start Date End Date Billie Guadarrama PCP - General 12/17/19 [facility] [address] [place] [address] documented as of this encounter
--- OUTSIDE RECORDS SUMMARY | 2022-08-02 15:08 | XMS_ITS | Encounter Summary ---
:1995 Author Organization [facility] Address [facility] [place] [address] Care Team Providers Name Role Phone Chiara Billie Primary Care Provider Rocio Mccarthy MD Unavailable Reason for Referral Diagnostic Imaging Ultrasound (Routine) - Closed Specialty Diagnoses / Procedures Referred By Contact Refer red To Contact Diagnoses related condition, antepartum Yoselin Velez Procedures [facility] [address] [place] [address] Referral ID Status Reason Start Date Expiration Date Visits Requ ested Visits Authorized [id number] Closed 04/30/2021 04/30/2022 1 1 Encounter Details Date Type Department Care Team Description 04/30/2021 Transcribe Orders [facility] Vinny Hamilton, Pregn jairon related Maternal Yoselin Kohler condition, Medicine Center [facility] antepartum (Primary [facility]) [address] Located within [facility] [address] [place] [address] [phone] Social History Tobacco Use Types Packs/Day Years [...] at Date Recorded 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 NO: [id number] Referring ??MD: VELMA MCNEIL Site: [facility] Career Development Director: Keri Rollins RDMS : 1995 Age: 25 [...] 2 lb 8 ?oz EFW by ?Hadlock ([id number]-FL) Head / Face / Neck Biometry: Plumbing Engineer ? 6.5 ? mm CM ?4.6 ? [...] cava. Inferior vena cava. 3-vessel view. ? 1-lnsnup-wgnluod view. Cardiac position. Cardiac size. Cardiac rhythm. [...] contact our office. 2) Reassess growth at [facility] in 3 wee ks (scheduled at [facility] [place] The patient was also referred for a [...] Pat. Name:Akosua GARCIA Date: 1:24pm Pat. NO: [id number] MD:YOSELIN HAMILTON [facility]NOEM[facility] Olvera :1995Age:25 INDICATION Short cervix on [...] 2 lb 8 oz EFW by Hadlock (SCC-ZA-XG-FL) Head / Face / Neck Biometry: Plumbing Engineer 6.5 mm CM 4.6 mm Nasal bone [...] vena cava. Inferior vena cava. 3-vessel view. 9-sxdnhl-jviuedj view. Cardiac position . Cardiac size. Cardiac [...] contact our office. 2) Reassess growth at [facility] in [address] [place] [address] (scheduled at [facility] [place]). The patient was also referred for a [...] umbilical artery doppler flow studies. Yoselin Hamilton [facility] US ORDERABLES documented in this encounter Visit Diagnoses Diagnosis related condition, antepartum - Primary related condition, antepartum documented in this encounter Care Teams Traffic Safety Administrator Relationship Specialty Start Date End Date Billie Guadarrama PCP - General 12/17/19 [facility] [address] [place] [address] Rocio Mccarthy MD Assigned Endocrinology 08/01/20 11/28/[address] [place] [address] [place] [address] documented as of this encounter
--- OUTSIDE RECORDS SUMMARY | 2022-08-02 15:08 | XMS_ITS | Encounter Summary ---
:1995 Author Organization [facility] Address [address] [place] [address]. [place] [address] Care Team Providers Name Role Phone Tucker Michel MD Primary Care Provider Reason for Visit Reason Comments Throat Problem sore throat and glands Encounter Details Date Type Department Care Team Description 02/14/2002 Office Visit [facility] Tucker Michel, ACUTE PHARYNGITIS (Primary Dx); System in Marcos Eaton MD OTHER ACUTE SINUSITIS; Pediatrics [facility] [place] NEVUS, NON-NEOPLASTIC [address] [place] [address] [facility] [place] [address] [address] [place] [phone] Social History Tobacco Use Types Packs/Day Years Used Date Smoking Tobacco: Never Comments: NO 2ND HAND SMOKE AT HOME Alcohol Use Standard Drinks/Week Comments Not Asked 0 (1 standard drink = 0.6 oz [...] at Date Recorded 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 encounter Last Filed Vital Signs Vital Sign Reading Time Taken Comments Blood Pressure - - Pulse - - Temperature 37.3 ??C (99.2 ??F) 02/14/2002 11:00 AM CDT Respiratory Rate - - Oxygen Saturation - - Inhaled Oxygen Concentration - - Weight 19.2 kg (42 lb 4.8 oz) 02/14/2002 11:00 AM CDT Height 110.5 cm (3' 7.5) 02/14/2002 11:00 AM CDT Tcwuwp-vya-Cnsnbb Percentile 60.93 % 02/14/2002 11:00 AM CDT Growth Chart: [facility] (Girls, 2-20 Years) Body Mass Index 15.72 02/14/2002 11:00 AM CDT Body Mass Index Percentile 65.66 % 02/14/2002 11:00 AM C DT Growth Chart: [facility] (Girls, 2-20 Years) documented in this encounter Progress Notes 02/14/2002 11:00 AM CDT Addended by: ASHWINI GOODRICH on: 02/21/2002,8:29 AM Comment: sewer cleaner/mp Modules accepted: Progress Notes Dictation done. Joseline Hopper [id number] 02/14/02 SUBJECTIVE: The patient corrales s had cold symptoms for [...] which has been present for about a month. OBJECTIVE: The patient is alert and in no acute distress. Skin: no rashes. There is a small spider angioma under the lef t eye HEENT: Normocephalic. Eyes are clear. Nose congested with a small amount of purulent discha rge seen. TMs are clear. Throat: 2+ tonsils, slightly red, no exudate. Neck is supple with mild t o moderate anterior cervical adenopathy, but no tenderness. Lungs are clear to auscultation. Heart: regular rate and no murmur. Abdomen soft, and no hepatosplenomegaly. Rapid strep test negative. ASSESSMENT: 1. Sinusitis with pharyngitis. 2. Spider angioma. PLAN: 1. Amoxicillin 600 BID for 10 da ys. 2. Discussion about the natural history of spider angiomas and reassurance to the mother. 3. Retu rn or call PRN persisting symptoms. Vincent Michel M.D./jim documented in this encounter Nursing Notes 02/14/2002 11:00 AM CDT >> JASONRICKEY 02/14/2002 10:53 am Mom is also concerned with red spot under left eye. It started as pinpoint spot and is spreading. documented in this encounter Plan of Treatment Upcoming Encounters Date Type Specialty Care Team Description 12/28/2022 Virtual Visit Endocrinology Merle Mccarthy MD [address] [place] [address] (Wo rk) documented as of this encounter Procedures Procedure Name Priority Date/Time Associated Diagnosis Comme nts HCL STREP A RAPID Routine 02/14/2002 Acute Pharyngitis Resul ts for this procedure are in the resu lts section. documented in this encounter Results STREP A RAPID (02/14/2002) athologist Signature Rapid Strep A NEGATIVE [facility] Specimen (Source) Anatomical Location Collection Method / Collectio n Time Received Time / Laterality Volume Specimen from 02/14/2002 throat (specimen) Impressions [facility] - 02/16/2002 1 :51 PM CDT CF/pa [facility]ative [facility] [place] [facility] - 02/16/2002 1 :51 PM CDT FINAL CULTURE REPORT: NO BETA STREP Tucker Michel MD LABORATORY Performing Organization Address City/State/ZIP Code Phon e Number [facility] [place] [facility] [address] documented in this encounter Visit Diagnoses Diagnosis Acute pharyngitis - Primary Other acute sinusitis Nevus, non-neoplastic documented in this encounter Care Teams Check Clerk Relationship Specialty Start Date End Date Tucker Michel MD PCP - General 11/02/00 02/05/13 [facility] [place] [address] [place] [address] documented as of this encounter
--- OUTSIDE RECORDS SUMMARY | 2022-08-02 15:08 | XMS_ITS | Encounter Summary ---
:1995 Author Organization [facility] Address [address] [place] [address]. [place] [address] Care Team Providers Name Role Phone Billie Guadarrama Primary Care Provider Rocio Mccarthy MD Unavailable Reason for Visit Reason Onset Date Comments Prior Auth - Medication 04/02/2021 SYNTHROID 88 MCG tablet- APPROVED Encounter Details Date Type Department Care Team Description 04/02/2021 Telephone [facility] Prior Shari Auth - Medication Clinic Anastasia Chan MD (SYNTHROID 88 MCG [address] [place] [address] [place] tablet- APPROVED) [address] [place] [address] [phone] Social History Tobacco Use Types Packs/Day Years [...] at Date Recorded 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 documented as of this encounter Miscellaneous Notes Telephone Encounter - Indira Quinn - 04/03/2021 10:00 AM CDT Images from the original note were not included. Prior Authorization Approval Authorization Effective Date: 03/03/2021 Authorization Expiration Date: 04/03/2022 Medication: SYNTHROID 88 MCG tablet- APPROVED Approved Dose/Quantity: 90 TABS Reference #: [id number] Insurance Company: Expected CoPay: CoPay Card Available: [facility] Assistance Needed: Which Pharmacy is filling the prescription (Not needed for infusion/clinic administered): [facility] [address] [place] [address] Pharmacy Notified: Yes Patient Notified: NO, REFILL TOO SOON Central Prior Authorization Team Telephone Encounter - Indira Quinn - 04/02/2021 5:15 PM CDT Images from the original note were not included. PA Initiation Medication: SYNTHROID 88 MCG tablet- INITIATED Insurance Company: Pharmacy Filling the Rx: [facility] [address] [place] [address] Filling Pharmacy Filling Pharmacy Start Date: 04/02/2021 Telephone Encounter - Candice Redmond - 04/02/2021 11:02 AM CDT Images from the original note were not included. documented in this encounter Plan of Treatment Upcoming Encounters Date Type Specialty Care Team Description 12/28/2022 Virtual Visit Endocrinology Merle Mccarthy MD [address] [place] [address] (Wo rk) documented as of this encounter Visit Diagnoses Not on filedocumented in this encounter Care Teams Sub Arc Operator Relationship Specialty Start Date End Date Billie Guadarrama PCP - General 12/17/19 [facility] [address] [place] [address] Rocio Mccarthy MD Assigned Endocrinology 08/01/20 11/28/[address] [place] [address] documented as of this encounter
--- OUTSIDE RECORDS SUMMARY | 2022-08-02 15:08 | XMS_ITS | Encounter Summary ---
:1995 Author Organization [facility] Address [address] [place] [address]. 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 documented as of this encounter Plan of Treatment Upcoming Encounters Date Type Specialty Care Team Description 12/28/2022 Virtual Visit Endocrinology Merle Mccarthy MD [address] [place] [address] (Wo rk) documented as of this encounter Visit Diagnoses Not on filedocumented in this encounter Care Teams Aviation Technician Relationship Specialty Start Date End Date Billie Guadarrama PCP - General 12/17/[address] [facility] [address] [place] [address] Rocio Mccarthy MD Assigned Endocrinology 08/01/20 11/28/21 [address] [facility] [address] [place] [address] documented as of this encounter
--- OUTSIDE RECORDS SUMMARY | 2022-08-02 15:08 | XMS_ITS | Encounter Summary ---
:1995 Author Organization [place] Address [address] [place] [address]. 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 documented as of this encounter Last Filed Vital Signs Vital Sign Reading Time Taken Comments Blood Pressure 108/53 03/28/2021 1:20 AM CDT Pulse 92 03/28/2021 1:20 AM CDT Temperature 36.4 ??C (97.6 ??F) 03/28/2021 1:20 AM CDT Respiratory Rate 16 03/28/2021 1:20 AM CDT Oxygen Saturation - - Inhaled Oxygen Concentration - - Weight 115.7 kg (255 lb) 03/28/2021 1:20 AM CDT Height 165.1 cm (5' 5) 03/28/2021 1:20 AM CDT Body Mass Index 42.43 03/28/2021 1:20 AM CDT documented in this encounter Discharge Instructions Discharge InstructionsTeodora Bro RN - 03/28/2021 3:15 AM CDT Discharge Instruction for Undelivered Patients You were seen for: lower right abdominal/round ligament pain We Consulted: Dr. Ingram You had (Test or Medicine):Ultrasound, monitoring Diet: Drink 8 to 12 glasses of liquids (milk, juice, water) every day. You may eat meals and snacks. To insurance territory manager your diabetes, follow the guidelines for eating and drinking given to you by your Clinic Provider or Phlebotomy Technician. Activity: Call your doctor or nurse bilingual speech language pathologist if your baby is moving less than [...] minutes apart for one hour or more. *If less than 34 weeks: Contractions (tightenings) more than 6 times in one hour. Increase or change in vaginal discharge (note the color and amount) Follow-up: As scheduled in the clinic documented [...] encounter Miscellaneous Notes Plan of Care - Teodora Bro RN - 03/28/2021 3:20 AM CDT Data: Patient assessed in the Birthplace for abdominal pain. Cervical exam not examined. Membranes intact. Contractions/uterine assessment none. Action: Presumed adequate oxygenation documented (see flow record). Discharge instructions reviewed. Patient instructed to report change in movement, vaginal leaking of fluid or bleeding, abdominal pain, or any concerns related to the to her nurse/physician. Discussed tylenol, abdominal binder, heat to manage round ligament pain associated with . Response: Orders to discharge home per Alyse Ingram. Patient verbalized understanding of education and verbalized agreement with plan. Discharged to home at 0320 . Provider Notification - Teodora Bro RN - 03/28/2021 3:09 AM CDT 03/28/21 0308 Provider Notification Provider Name/Title Dr. Ingram Method of Notification Phone Request Evaluate - Remote Notification Reason Status Update Reviewed US results WNL; pt not kim. Per MD ok to discharge patient to home. Discuss round ligament pain, ways to alleviate including rest, heat, Tylenol, abdominal binder. Provider Notification - Teodora Bro RN - 03/28/2021 1:35 AM CDT MD notified of patient arrival. Reviewed FHT category 1 for 10 minutes although challenging to trace; no ctx; reviewed pt sx (see triage note). Reviewed UA results negative per note from Dania. Ordersreceived for US d/t RLQ pain, tylenol for pain. Will update MD with US results or PRN. Plan of Care - Teodora Bro RN - 03/28/2021 1:00 AM CDT Data: Patient presented to Birthplace: 03/28/2021 12:45 AM. Reason for maternal/ assessment is abdominal pain. Patient reports right lower abdominal pain since 11:30pm on 03/26/21, nothing makes it better or worse, pain is 11/10 and constant; states that Dania in [place] told her to come to [facility] to have US. Patient is a . record reviewed. has been complicated by gestational diabetes, pt states I don't take medicine I just talk to my bilingual speech language pathologist about it at my visits and states iscontrolled, gestational hypertension and obesity. Gestational Age 24w2d. VSS. movement active. Patient denies uterine contractions, leaking of vaginal fluid/rupture of membranes, vaginal bleeding, pelvic pressure, nausea, vomiting, headache, visual disturbances, epigastric or URQ pain, significant edema. Support person Cleve is present. Action: Verbal consent for EFM. Triage assessment completed. Bill of rights reviewed. Response: Patient verbalized agreement with plan. Will contact Dr Alyse Ingram with update and for further orders. documented in this encounter Plan of Treatment Upcoming Encounters Date Type Specialty Care Team Description 12/28/2022 Virtual Visit Endocrinology Merle Mccarthy MD [address] [place] [address] (Wo rk) documented as of this encounter Procedures Procedure Name Priority Date/Time Associated Diagnosis Comme nts US ABDOMEN LIMITED STAT 03/28/2021 2:59 AM Res ults for this CDT procedure are i n the results section. documented in this encounter Results US Abdomen Limited* (03/28/2021 2:59 AM CDT) Anatomical Region Laterality Modality Abdomen/Pelvis Ultrasound Specimen (Source) Anatomical Collection Method Collection Time Re ceived Time Location / / Volume Laterality 03/28/2021 2:39 AM CDT Impressions 03/28/2021 3:10 AM CDT IMPRESSION: 1. ??Appendix not visualized with ultras ound therefore remains indeterminate. Narrative 03/28/2021 3:10 AM CDT EXAM: US ABDOMEN LIMITED LOCATION: [facility] DATE/TIME: 03/28/2021 2:39 AM INDICATION: Right lower quadrant pain. COMPARISON: None. TECHNIQUE: Limited abdominal ultrasound. FINDINGS: Limited ultrasound of the right lower qu adrant fails to identify the appendix which therefore remains indeterminate. No sonographic abnormalities seen in the right lower quadrant. Procedure Note Vince Morse MD - 03/28/2021F ormatting of this note might be different from the original. EXAM: US ABDOMEN LIMITED LOCATION: [facility] DATE/TIME: 03/28/2021 2:39 AM INDICATION: Right lower quadrant pain. COMPARISON: None. TECHNIQUE: Limited abdominal ultrasound. FINDINGS: Limited ultrasound of the right lower qu adrant fails to identify the appendix which therefore remains indeterminate. No sonographic abnormalities seen in the right lower quadrant. IMPRESSION: 1. Appendix not visualized with ultrasou nd therefore remains indeterminate. Alyse Ingram MD [facility] ORDERABLES documented in this encounter Visit Diagnoses Diagnosis Encounter for triage in patient documented in this encounter Admitting Diagnoses Diagnosis Encounter for triage in patient documented in this encounter Administered Medications Inactive Administered Medications - up to 3 most recent administrations Medication Order MAR Action Action Date Dose Rate Site acetaminophen (TYLENOL) tablet 650 Given 03/28/2021 3:01 AM CDT 650 mg mg 650 mg, Oral, EVERY 4 HOURS PRN, mild pain, fever, Starting on 03/28/21 at 0209, Maximum acetaminophen dose from all sources = 75 mg/kg/day not to exceed 4 grams/day. documented in this encounter Active and Recently Administered Medications Times are shown in CDT. PRN Medication Order 03/26/2021 03/27/2021 03/28/2021 acetaminophen (TYLENOL) tablet 650 mg 0301 (Given - Provider: Teodora Bro RN) 650 mg, Oral, EVERY 4 HOURS PRN, mild pa in, fever, Starting 03/28/21 at 0209, Maximum acetaminophen dose from all sources = 75 mg/kg/day not to exceed 4 grams/day. documented in this encounter Care Teams Optics Engineer Relationship Specialty Start Date End Date Billie Guadarrama PCP - General 12/17/19 [facility] [address] [place] [address] Rocio Mccarthy MD Assigned Endocrinology 08/01/20 11/28/[address] [place] [address] documented as of this encounter
--- OUTSIDE RECORDS SUMMARY | 2022-08-02 15:08 | XMS_ITS | Encounter Summary ---
:1995 Author Organization [place] Address [address] [place] [address]. 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 documented as of this encounter Last Filed Vital Signs Vital Sign Reading Time Taken Comments Blood Pressure - - Pulse 104 11/23/2001 6:00 PM GRADUATE ASSISTANT Temperature 37.2 ??C (99 ??F) 11/23/2001 6:00 PM GRADUATE ASSISTANT Respiratory Rate - - Oxygen Saturation - - Inhaled Oxygen Concentration - - Weight 18.6 kg (41 lb) 11/23/2001 6:00 PM GRADUATE ASSISTANT Height - - Body Mass Index - - documented in this encounter Progress Notes 11/23/2001 6:00 PM GRADUATE ASSISTANT SUBJECTIVE: Altagracia is brought in by her mom to the clinic for a two day history of sore throat, feve r, and complaints that her head hurts. She has not had any vomiting or diarrhea. She continues to h ave good appetite and normal activity levels. OBJECTIVE: This is an alert and cooperative female i n no acute distress. Vitals: Per nursing note. Conjunctivae clear. Nares patent, mildly congested. TMs benign. Oropharynx is pink and moist, no tonsillar erythema or exudate. Neck is supple without lymphadenopathy. Lungs are clear to auscultation bilaterally. LABORATORY/X-RAY RESULTS: Rapid strep test is negative. ASSESSMENT: Nonstrep pharyngitis. PLAN: Supportive and symptomatic cares discus sed and encouraged. Return prn. FAVIO Conde/ravinder documented in this encounter Plan of Treatment Upcoming Encounters Date Type Specialty Care Team Description 12/28/2022 Virtual Visit Endocrinology Merle Mccarthy MD [address] [place] [address] (Wo rk) documented as of this encounter Visit Diagnoses Not on filedocumented in this encounter Care Teams Garden Equipment Mechanic Relationship Specialty Start Date End Date Tucker Michel MD PCP - General 11/02/00 02/05/13 [facility] [address] [place] [address] [address] [place] [address] documented as of this encounter
--- OUTSIDE RECORDS SUMMARY | 2022-08-02 15:08 | XMS_ITS | Encounter Summary ---
:1995 Author Organization [place] Address [facility] [place] [address] Care Team Providers Name Role Phone Chiara Billie Primary Care Provider Rocio Mccarthy MD Unavailable Reason for Referral Consultation (Routine) - Closed Specialty Diagnoses / Procedures Referred By Contact Refer red To Contact Diagnoses related condition, antepartum Ava Velez [facility] [address] [place] [address] Referral ID Status Reason Start Date Expiration Date Visits Requ ested Visits Authorized [id number] Closed 04/30/2021 04/30/2022 1 1 Encounter Details Date Type Department Care Team Description 04/30/2021 Transcribe Orders [facility] Vinny Garcia, Pregn jairon related Maternal Ava Kohler condition, [facility] antepartum (Primary [facility] Dx) [address] [facility] [address] [place] [phone] Social History Tobacco Use Types Packs/Day Years [...] at Date Recorded 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 documented as of this encounter Plan of Treatment Upcoming Encounters Date Type Specialty Care Team Description 12/28/2022 Virtual Visit Endocrinology Merle Mccarthy MD [address] [place] [address] (Wo rk) Scheduled Referrals Name Type Priority Associated Diagnoses Order S chedule Mat Med Ctr Referral Routine related Expec dave: 05/07/2021 Referral - condition, antepartu m (Approximate), Expires: 2021 documented as of this encounter Visit Diagnoses Diagnosis related condition, antepartum - Primary documented in this encounter Care Teams Bag Shop Worker Relationship Specialty Start Date End Date Billie Guadarrama PCP - General 12/17/[address] [facility] [address] [place] [address] Rocio Mccarthy MD Assigned Endocrinology 08/01/20 11/28/[address] [place] [address] documented as of this encounter
--- OUTSIDE RECORDS SUMMARY | 2022-08-02 15:08 | XMS_ITS | Encounter Summary ---
:1995 Author Organization [place] Address [address] [place] [address]. 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 documented as of this encounter Plan of Treatment Upcoming Encounters Date Type Specialty Care Team Description 12/28/2022 Virtual Visit Endocrinology Merle Mccarthy MD [address] [place] [address] (Wo rk) documented as of this encounter Visit Diagnoses Not on filedocumented in this encounter Care Teams Reproduction Artist Relationship Specialty Start Date End Date Billie Guadarrama PCP - General 12/17/19 [facility] [address] [place] [address] Rocio Mccarthy MD Assigned Endocrinology 08/01/20 11/28/21 [address] [facility] [address] [place] [address] documented as of this encounter
--- OUTSIDE RECORDS SUMMARY | 2022-08-02 15:08 | XMS_ITS | Encounter Summary ---
:1995 Author Organization [place] Address [address] [place] [address]. 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 documented as of this encounter Patient Instructions Patient InstructionsAnderson, Chelita AROHIT - 05/29/2020 3:00 PM CDT [facility] Dr Mccarthy, Endocrinology Department [facility] [address] [facility] [address] [place] [address] Appointment [phone] [place]: Tuesday and Tuesday [place] [address] [address] [facility]. [address] [place] [address] Appointment [phone] [place]: Tuesday and Please check the cost coverage and copay with insurance before recommended tests, services and medications (especially if new medications are prescribed). If ordered, please get blood work done 1 week prior to your next appointment so they will be available to Dr. Mccarthy at your visit. Continue brand SYNTHROID 188 mcg/day. Labs in 4-6 months or sooner if you get . Please make a lab appointment for blood [...] it. documented in this encounter Progress Notes Rocio Mccarthy MD - 05/29/2020 3:00 PM CDT THIS IS A VIDEO VISIT: Phone call visit/virtual visit encounter: Name of patient: Altagracia Garcia Date of encounter: 05/29/2020 Time of start of video visit: 3:10 Video started: 3:16 Video ended: 3:24 Time visit video ended: 3:29 Provider location: working from home/ [facility] Patient location: patients home. Mode of [...] personally. ENDOCRINOLOGY CLINIC NOTE: Name: Altagracia Garcia Self referral for hypothyroidism. HPI: Altagracia Garcia is a 24 year old female who presents for the evaluation of : Was requested to see endocrinology by her CINDER BLOCK MASON from [place]. Available records, labs and images from outside clinic were personally reviewed. Since last visit she had a miscarriage. Is actively planning . #1 Hypothyroidism (+TPO): Diagnosed with Duane in 2012 and was started on levothyroxine 100 mcg/day. Current dose is 188 mcg/day. On this dose X 04/2020 ( dose was increased from 175 mcg/day at that time) Reports h/o fluctuating labs and dose has been changed multiple times. H/o fibromyalgia and PCOS. Takes ADITYA synthroid. Reports compliance. Feeling OK. Weight: gained some wt. Trying to see a level vial inspector and tester. Palpitations: No Changes to hair or skin: + hair loss. Diarrhea/Constipation:h/o diarrhea- h/o cholecystectomy. Stable. Changes in menses: irregular- h/o PCOS Dysphagia or Shortness of breath:sometimes Tremors:No Changes in weight: + wt gain. Lost 50 lbs on phentermine in past and since stopping gained back. Heat or cold intolerance: sometimes cold History of [place] or Amiodarone use:No Head or neck surgery/radiation:No Family History of Thyroid Problems: pgm- thyroid problems. PMH/PSH: History reviewed. No pertinent past medical history. Past Surgical History: Procedure Laterality Date ??? NO HISTORY OF SURGERY abstract Family [...] file Occupational History ??? Not on file Social Needs ??? Financial resource strain: Not on file ??? Food insecurity Worry: Not on file Inability: Not on file ??? Transportation needs Medical: Not on file Non-medical: Not on file Tobacco Use ??? Smoking status: Never Smoker ??? Smokeless tobacco: Never Used ??? Tobacco comment: NO 2ND HAND SMOKE AT HOME Substance and Sexual Activity ??? Alcohol use: Never Frequency: Never ??? Drug use: Never ??? Sexual activity: Yes Partners: Male control/protection: None Lifestyle ??? Physical activity Days per week: Not on file Minutes per session: Not on file ??? Stress: Not on file Relationships ??? Social connections Talks on phone: Not on file Gets together: Not on file Attends bahai service: Not on file Active member of club or organization: Not on file Attends meetings of clubs or organizations: Not on file Relationship status: Not on file ??? Intimate partner violence Fear of current or ex partner: Not on file Emotionally abused: Not on file Physically abused: Not on file Forced sexual activity: Not on file Other Topics Concern ??? Not on file Social History Narrative ??? Not on file MEDICATIONS: has a current medication list which includes the following prescription(s): vit-fe fumarate-fa, synthroid, and synthroid. ROS ROS: 10 point ROS neg other than the symptoms noted above in the HPI. Physical Exam VS: LMP 04/06/2020 No GENERAL: healthy, alert and no distress EYES: Eyes grossly normal to inspection, conjunctivae and sclerae normal RESP: no audible wheeze, cough, or visible cyanosis. No visible retractions or increased work of breathing. Able to speak fully in complete sentences. NEURO: Cranial nerves grossly intact, mentation intact and speech normal PSYCH: mentation appears normal, affect normal/bright, judgement and insight intact, normal speech and appearance well-groomed LABS: TFTs: ENDO THYROID LABS[facility] Latest Ref Rng & Units 05/21/2020 04/14/2020 TSH 0.40 - 4.00 mU/L 0.48 5.34 (H) T4 FREE 0.76 - 1.46 ng/dL 1.47 (H) 0.81 FREE T3 2.3 - 4.2 pg/mL 2.7 2.0 (L) THYR PEROXIDASE ENMA <35 IU/mL 496 (H) ENDO THYROID [facility] Latest Ref Rng & Units 01/28/2020 TSH 0.270 - 4.200 uIU/mL 0.577 Thyroid US 04/2020: US THYROID 04/14/2020 3:29 [...] A/P Ms.Myranda Mary Beth Garcia is a 24 year old here for the evaluation of hypothyroidism: #1 Hypothyroidism(+TPO): Current dose is SYNTHROID (brand) 188 mcg/day. (take 100+88) on this dose since 04/2020. Dose was increased at that time. Reports h/o fluctuating labs and dose has been changed multiple times. Planning . Followed by OBGYN. Also has h/o fibromyalgia and PCOS. Plan: Discussed diagnosis, pathophysiology, management and treatment options of condition with pt. Based on 05/29 labs- Recommend to continue brand SYNTHROID 188 mcg/day. Labs in 4-6 months or sooner if you get . Please make a lab appointment for blood [...] Iron supplements, Cholestyramine and Calcium supplements. Follow-up: 4-6 months. Rocio Mccarthy MD Endocrinology [facility]/Anastasia CC: Billie Guadarrama All questions were answered. The patient indicates understanding of the above issues and agrees withthe plan set forth. 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
--- OUTSIDE RECORDS SUMMARY | 2022-08-02 15:08 | XMS_ITS | Encounter Summary ---
:1995 Author Organization [facility] Address [address] [place] [address]. [place] [address] Care Team Providers Name Role Phone Tucker Michel MD Primary Care Provider Reason for Visit Reason Comments Well Child 6 year exam Encounter Details Date Type Department Care Team Description 06/01/2002 Office Visit [facility] Tucker Michel ROUTI NE CHILD HEALTH EXAM (Primary Dx); System in Marcos Eaton MD UNSPEC CONSTIPATION Pediatrics [facility] [place] [address] [place] [address] [facility] [place] [address] [address] [place] [phone] Social History Tobacco Use Types Packs/Day Years [...] at Date Recorded 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 (Girls, 2-20 Years) Body Mass Index 15.4 06/01/2002 3:30 PM CDT Body Mass Index Percentile 57.37 % 06/01/2002 3:30 PM CD T Growth Chart: [facility] (Girls, 2-20 Years) documented in this encounter Progress Notes 06/01/2002 3:30 PM CDT Altagracia Garcia is a 6 year old female here for 6 year well child exam. Brought in by mother. HIST ORY Current Concerns: Costipated, sometimes going several(up to 5) days without a bowel movement. Oc c. has blood in stools and appears to hold back. Seemed to start at the time of potty training. t: appropriate diet, picky and disorganized meal time Water Source: [employer] water. Elimination: Constipa tion off and on, Normal urination, Potty trained Sleep: sleeps through the night Daycare: No Notewor thy social stressors: none History Modules Reviewed: Yes Patient Active Problem List: NO ACTIVE [place] OBLEMS[937708] Any hearing or vision concerns? no DEVELOPMENTAL SCREEN: Parent Concerns about Dev elopment:NO School district screening (hearing/vision):Not Asked SOCIAL Names friend: Yes Was h and Dry hands: Yes Dresses independently:Yes FINE MOTOR Copies apache: Yes Copies cross : Yes Copies square: Yes Thumb wiggle: Yes GROSS MOTOR Down Stairs alone: Yes Balance 1 foot 2 sec: Yes Hop on each foot(5x): Yes LANGUAGE Understandable speech:Yes Count by r ote: Yes PHYSICAL EXAM: Ht 3' 8.25 (1.124m) Wt 42 lbs 14 oz (19.459 kg) Growth charts re viewed. General: Alert, interactive and appropriate Head: NORMAL Eyes: NORMAL EOM (cover/uncover): NORMAL Ears: NORMAL Nose: NORMAL Mouth: NORMAL Neck: NORMAL Resp: NO RMAL Heart: NORMAL Abdomen: NORMAL Genitalia: NORMAL female Musculoskeletal: NORMAL Gait: NORMAL Skin: DAVID L Neurological: NORMAL EDUCATION/DISCUSSED: Limit TV Risk Assessment Reviewed and Discus sed:Yes ASSESSMENT/PLAN: 1.Constipation: Miralax 1/2 dose qd x 4d, then bowel retraining using boss miner al oil. See patient instructions. Recheck in 2 months. 2.Normal growth and development at 6 year o ld. Handout on age appropriate development/safety given. Reviewed immunizations. Return in 1 year (a ge 7 years). documented in this encounter Nursing Notes 06/01/2002 3:30 PM CDT >> JULITA LU 06/01/2002 3:39 pm This child DOES NOT QUALIFY FOR [facility] PROGRAM Patient: Altagracia Garcia Tested by: Julita Lu Date: 06/01/2002 Yes = Response No = No response n/a = not applicable or not done 20db HL Right Ear: 1000hz - yes 2000hz - yes 4000hz - no 500hz - no Left Ear: 1000hz - no 2000hz - no 4000hz - no 500hz - no 25db HL Right Ear: 1000hz - no 2000hz - no 4000hz - no 500hz - no Left Ear: 1000hz - no 2000hz - no 4000hz - no 500hz - no 40db HL Right Ear: 1000hz - yes 2000hz - yes 4000hz - no 500hz - no Left Ear: 1000hz - yes 2000hz - yes 4000hz - yes 500hz - yes VISION: LEFT EYE: 20/30 RIGHT EYE: 20/30 documented in this encounter Plan of Treatment Upcoming Encounters Date Type Specialty Care Team Description 12/28/2022 Virtual Visit Endocrinology Merle Mccarthy MD [address] [place] [address] (Wo rk) documented as of this encounter Procedures Procedure Name Priority Date/Time Associated Diagnosis Comme nts HC SCREENING TEST, Routine 06/01/2002 4:04 PM CDT Routine [facility] PURE TONE, AIR ONLY Exam documented in this encounter Visit Diagnoses Diagnosis Routine infant or child health check - P rimary Unspecified constipation documented in this encounter Care Teams Study Abroad Advisor Relationship Specialty Start Date End Date Tucker Michel MD PCP - General 11/02/00 02/05/13 [facility] Marcos Eaton [address] [facility] [address] [place] [address] documented as of this encounter
--- OUTSIDE RECORDS SUMMARY | 2022-08-02 15:08 | XMS_ITS | Encounter Summary ---
:1995 Author Organization [facility] Address [address] [place] [address]. 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 documented as of this encounter Plan of Treatment Upcoming Encounters Date Type Specialty Care Team Description 12/28/2022 Virtual Visit Endocrinology Merle Mccarthy MD [address] [place] [address] (Wo rk) documented as of this encounter Visit Diagnoses Not on filedocumented in this encounter Care Teams Tripe Cooker Relationship Specialty Start Date End Date Billie Guadarrama PCP - General 12/17/19 [facility] [address] [facility] [place] [address] documented as of this encounter
--- OUTSIDE RECORDS SUMMARY | 2022-08-02 15:08 | XMS_ITS | Encounter Summary ---
:1995 Author Organization [facility] Address [address] [place] [address]. 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 She was feeling well yesterday and last night. No vomitin g. She has not had much of an appetite this morning, but is drinking fluids well. OBJECTIVE: Temper ature 101.6, weight 42 lbs 7 oz (19.250 kg). Altagracia is alert and cooperative. Conjunctivae clear, no ninjected. Nares patent, noncongested. Oropharynx pink and moist without lesion. Ear canals clear. T Ms translucent with normal light reflex and bony landmarks. Neck supple without lymphadenopathy. Shola gs CTA bilaterally. Abdomen soft, nondistended. Bowel sounds present. No masses or organomegaly. A SSESSMENT: URI Plan: Supportive and symptomatic care only at this time. If symptoms worsen or feve r persists over next 48-72 hours, return for recheck. documented in this encounter Nursing Notes 05/09/2002 9:00 AM CDT >> INDER CAMPOS MARIE 05/09/2002 8:52 am c/o severe H/A since yesterday,with 102.4 fever.last given Tylenol at 8am today. documented in this encounter Plan of Treatment Upcoming Encounters Date Type Specialty Care Team Description 12/28/2022 Virtual Visit Endocrinology Merle Mccarthy MD [address] [place] [address] (Wo rk) documented as of this encounter Visit Diagnoses Diagnosis Acute upper respiratory infections of ot her multiple sites - Primary documented in this encounter Care Teams Teaching Associate Relationship Specialty Start Date End Date Tucker Michel MD PCP - General 11/02/00 02/05/13 [facility] [address] [facility] [address] [place] [address] documented as of this encounter
--- OUTSIDE RECORDS SUMMARY | 2022-08-02 15:08 | XMS_ITS | Encounter Summary ---
:1997 Author Organization [facility] Address [address] [facility] 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
--- OUTSIDE RECORDS SUMMARY | 2022-08-02 15:08 | XMS_ITS | Encounter Summary ---
:1997 Author Organization [facility] Address [address] [place] [address]. 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
--- OUTSIDE RECORDS SUMMARY | 2022-08-02 15:08 | XMS_ITS | Encounter Summary ---
:1997 Author Organization [facility] Address [address] [place] [address]. 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 documented as of this encounter Plan of Treatment Upcoming Encounters Date Type Specialty Care Team Description 12/28/2022 Virtual Visit Endocrinology Merle Mccarthy MD [address] [place] [address] (Wo rk) documented as of this encounter Visit Diagnoses Not on filedocumented in this encounter Care Teams Cobol Programmer Relationship Specialty Start Date End Date Billie Guadarrama PCP - General 12/17/19 [facility] [address] [place] [address] Rocio Mccarthy MD Assigned Endocrinology 08/01/20 11/28/21 [address] [facility] [address] [place] [address] documented as of this encounter
--- OUTSIDE RECORDS SUMMARY | 2022-08-02 15:08 | XMS_ITS | Encounter Summary ---
:1997 Author Organization [facility] Address [address] [facility] [place] [address] Care Team Providers Name Role Phone Billie Guadarrama Primary Care Provider Reason for Referral Diagnostic Imaging Ultrasound (Routine) - Closed Specialty Diagnoses / Procedures Referred By Contact Refer red To Contact Radiology. 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 Rocio Mccarthy, Jl Ultrasound Rscc Procedures US Thyroid [address] [address] [place], [place] [address] [place] [address] Fax: Referral ID Status Reason Start Date Expiration Date Visits Requ ested Visits Authorized [id number] Closed 04/09/2020 04/09/2021 1 1 Reason for Visit Reason Onset Date Comments Thyroid Problem 04/09/2020 Encounter Details Date Type Department Care Team Description 04/09/2020 Virtual Visit [facility] Tammie Mccarthy, Hypothyro idism due to Clinic Anastasia Chan MD Duane's thyroiditis [address] (Primar y Dx) [address] [place] [address] [phone] Social History Tobacco Use Types Packs/Day Years [...] at Date Recorded 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 documented as of this encounter Patient Instructions Patient InstructionsRocio Mccarthy MD - 04/09/2020 3:30 PM CDT [facility] Dr Mccarthy, Endocrinology Department [facility] [address] [place] [address] Appointment [phone] Tuesday and Tuesday [place] [address] [address] [facility] [place] [address] Appointment [phone] Tuesday and Continue current dose of levothyroxine for now. Repeat thyroid labs. Recommend thyroid ultrasound. Follow up after above. [facility] radiology scheduleing [place] [phone] [facility] Radiology scheduling [place] [phone] Please call and schedule the recommended test as discussed in clinic visit. These are the numbers tocall. documented in this encounter Progress Notes Rocio Mccarthy MD - 04/09/2020 3:30 PM CDT THIS IS A VIDEO VISIT: Phone call visit/virtual visit encounter: Name of patient: Altagracia Garcia Date of encounter: 04/09/2020 Time of start of video visit: 3:39 Video started: 3:41 Video ended: 3:52 Time visit video ended: 4:00 Provider location: working from home/ [facility] Patient location: patients home. Mode of transmission: [...] Was requested to see endocrinology by her ELECTRONIC WARFARE LINGUIST from [place]. Available records, labs and images from outside clinic were personally reviewed. #1 Hypothyroidism. diagnosed with Duane in 2012 and was started on levothyroxine 100 mcg/day. Current dose is 175 mcg/day. On this dose X 12/2019 ( dose was decreased from 200 mcg/day at that time) Reports h/o fluctuating labs and dose has been changed multiple times. H/o fibromyalgia and PCOS. Takes ADITYA synthroid. Reports compliance. Feels tired all the time. Palpitations: No Changes to hair or skin: No Diarrhea/Constipation:h/o diarrhea- h/o cholecystectomy. Changes in menses: irregular- h/o PCOS Dysphagia or Shortness of breath:sometimes Tremors:No Changes in weight: + wt gain. Lost 50 lbs on phentermine in past and since stopping gained back. Heat or cold intolerance: sometimes cold History of [place] or Amiodarone use:No Head or neck surgery/radiation:No [...] file Gets together: Not on file Attends hinduism service: Not on file Active member of [...] medication list which includes the following prescription(s): letrozole, levothyroxine, vit-fe fumarate-fa, and NO ACTIVE MEDICATIONS. ROS ROS: 10 point ROS neg other [...] and appearance well-groomed LABS: TFTs: ENDO THYROID LABS-[facility] Latest Ref Rng & Units 01/28/2020 TSH 0.270 - 4.200 uIU/mL 0.577 All pertinent notes, labs, and images personally reviewed by me. A/P Ms.Myranda Mary Beth Garcia is a 24 year old here for the evaluation of hypothyroidism: #1 Hypothyroidism. Differential includes: autoimmune disease (Duane's thyroiditis), treatment for hyperthyroidism, radiation therapy, thyroid surgery, medications, congenital disease, pituitary disorder, , and iodine deficiency. Persons with Duane's thyroiditis have serum antibodies reacting with TG, TPO, and against an unidentified protein present in colloid. Current dose is 175 mcg/day. On this dose X 12/2019 ( dose was decreased from 200 mcg/day at that time) Reports h/o fluctuating labs and dose has been changed multiple times. Planning . Followed by OBGYN. Also has h/o fibromyalgia and PCOS. Plan: Discussed diagnosis, pathophysiology, management and treatment options of condition with pt. Continue current dose of levothyroxine pending labs. Repeat labs and get US ( h/o goiter). Follow up after above. Discussed s/s of hypothyroidism and hyperthyroidism to watch for. The patient indicates understanding of these issues and agrees with the plan. Labs: T4 free, TSH, Thyroid peroxidase antibody, T3 Free, US Thyroid Standard treatment for hypothyroidism involves daily use [...] Iron supplements, Cholestyramine and Calcium supplements. Follow-up: After above. Rocio Mccarthy MD Endocrinology [facility] CC: Billie Guadarrama All questions were answered. The patient indicates understanding of the above issues and agrees withthe plan set forth. documented in this encounter Plan of Treatment Upcoming Encounters Date Type Specialty Care Team Description 12/28/2022 Virtual Visit Endocrinology Merle Mccarthy MD [address] [facility] [address] [place] [address] (Wo rk) documented as of this encounter Results US Thyroid (04/14/2020 3:29 [...] of the ACR TI-RADS Committee Pankaj Nelson al. Journal of t he [employer] 2017. Volume 14 (2017), Issue 5, 549-719. DARYN PETTY MD Narrative 04/14/2020 3:39 PM CDT [...] No cervical lymphadenopathy. NODULES: None. Procedure Note Daryn Petty MD - 04/14/2020Form atting of this [...] White Paper of the ACR TI-RADS Committee Pankja Nelson et al. Journal of t he [employer] 2017. Volume 14 (2017), Issue 5, 075-062. DARYN PETTY MD Rocio Mccarthy MD [facility] US ORDERABLES (ABNORMAL) T3 Free (04/14/2020 1:35 PM CDT) P athologist Signature Free T3 2.0 (L) 2.3 - 4.2 04/14/2020 [facility] pg/mL 7:23 PM CDT [facility] Specimen Anatomical Collection Method Collection Time Receive d Time (Source) Location / / Volume Laterality Blood specimen 04/14/2020 1:35 PM 020 1:40 (specimen) CDT PM CDT Rocio Mccarthy MD LAB - BLOOD ORDERABLES Performing Organization Address City/State/ZIP Code Phon e Number [facility] [address] [place] [address] [facility] (ABNORMAL) Thyroid peroxidase antibody (04/14/2020 1:35 PM CDT) Analysis Performed At Patho logist Time Signature Thyroid 496 (H) <35 IU/mL 04/15/2020 [facility] Peroxidase 10:23 AM CDT [facility] Specimen Anatomical Collection Method Collection Time Receive d Time (Source) Location / / Volume Laterality Blood specimen 04/14/2020 1:35 PM 020 1:40 (specimen) CDT PM CDT Rocio Mccarthy MD LAB - BLOOD ORDERABLES Performing Organization Address City/[facility]/ZIP Code Phon e Number [facility] [address] [place] [address] [facility] (ABNORMAL) TSH (04/14/2020 1:35 PM CDT) athologist Signature TSH 5.34 (H) 0.40 - 04/15/2020 [facility] 4.00 mU/L 10:04 AM CDT [facility] Specimen Anatomical Collection Method Collection Time Receive d Time (Source) Location / / Volume Laterality Blood specimen 04/14/2020 1:35 PM 020 1:40 (specimen) CDT PM CDT Rocio Mccarthy MD LAB - BLOOD ORDERABLES Performing Organization Address City/[facility]/ZIP Code Phon e Number [facility] [address] [place] [address] T4 free (04/14/2020 1:35 PM CDT) athologist Signature T4 Free 0.81 0.76 - 1.46 04/15/2020 [facility] ng/dL 9:58 AM CDT [facility] Specimen Anatomical Collection Method Collection Time Receive d Time (Source) Location / / Volume Laterality Blood specimen 04/14/2020 1:35 PM 020 1:40 (specimen) CDT PM CDT Rocio Mccarthy MD LAB - BLOOD ORDERABLES Performing Organization Address City/[facility]/ZIP Code Phon e Number [facility] [address], [place] [address] documented in this encounter Visit Diagnoses Diagnosis 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's thyroi ditis - Primary 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's thyroi ditis documented in this encounter Care Teams Adjunct Latin Professor Relationship Specialty Start Date End Date Billie Guadarrama PCP - General 12/17/19 [facility] [address] [place] [address] documented as of this encounter
--- OUTSIDE RECORDS SUMMARY | 2022-08-02 15:08 | XMS_ITS | Encounter Summary ---
:1997 Author Organization [place] Address [address] [place] [address]. 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
--- OUTSIDE RECORDS SUMMARY | 2022-08-02 15:08 | XMS_ITS | Encounter Summary ---
:1997 Author Organization [facility] Address [address] [place] [address]. 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 documented as of this encounter Plan of Treatment Upcoming Encounters Date Type Specialty Care Team Description 12/28/2022 Virtual Visit Endocrinology Merle Mccarthy MD [address] [place] [address] (Wo rk) documented as of this encounter Procedures Procedure Name Priority Date/Time Associated Diagnosis Comme nts TSH Routine 05/21/2020 11:45 AM Hypothyroidism due to Results for this CDT Duane's thyroiditis proc edure are in the results section. T4 FREE Routine 05/21/2020 11:45 AM Hypothyroidism due to Results for this CDT Duane's thyroiditis proc edure are in the results section. T3 FREE Routine 05/21/2020 11:45 AM Hypothyroidism due to Results for this CDT Duane's thyroiditis proc edure are in the results section. documented in this encounter Results (ABNORMAL) T4 free (05/21/2020 11:45 AM CDT) athologist Signature T4 Free 1.47 (H) 0.76 - 05/22/2020 [facility] 1.46 ng/dL 9:42 AM CDT [facility] Specimen Anatomical Collection Method Collection Time Receive d Time (Source) Location / / Volume Laterality Blood specimen 05/21/2020 11:45 0 (specimen) AM CDT 11:46 AM CDT Rocio Mccarthy MD LAB - BLOOD ORDERABLES Performing Organization Address City/State/ZIP Code Phon e Number [facility] [address] [place] [address] T3 Free (05/21/2020 11:45 AM CDT) athologist Signature Free T3 2.7 2.3 - 4.2 05/21/2020 [facility] pg/mL 8:27 PM CDT [facility] Specimen Anatomical Collection Method Collection Time Receive d Time (Source) Location / / Volume Laterality Blood specimen 05/21/2020 11:45 0 (specimen) AM CDT 11:46 AM CDT Rocio Mccarthy MD LAB - BLOOD ORDERABLES Performing Organization Address City/State/ZIP Code Phon e Number [facility] [address] [place] [address] [facility] TSH (05/21/2020 11:45 AM CDT) athologist Signature TSH 0.48 0.40 - 4.00 05/22/2020 [facility] mU/L 9:49 AM CDT [facility] Specimen Anatomical Collection Method Collection Time Receive d Time (Source) Location / / Volume Laterality Blood specimen 05/21/2020 11:45 0 (specimen) AM CDT 11:46 AM CDT Rocio Mccarthy MD LAB - BLOOD ORDERABLES Performing Organization Address City/State/ZIP Code Phon e Number [facility] [address] [place] [address] documented in this encounter Visit Diagnoses Diagnosis 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
--- OUTSIDE RECORDS SUMMARY | 2022-08-02 15:08 | XMS_ITS | Encounter Summary ---
:1995 Author Organization [place] Address [address] [place] [address]. [place] [address] Care Team Providers Name Role Phone Billie Guadarrama Primary Care Provider Reason for Visit Reason Onset Date Comments Refill Request 07/23/2020 duplicate--synthroid 88mcg and 100mcg Encounter Details Date Type Department Care Team Description 07/23/2020 MyC Refill [facility] Shari Refill [facility] [place] MD Rocio (duplicate--synthroid [address] [facility] [place] [address] [place] 88mcg... 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 Medications refilled 05/29/20 for a 90 day supply with 3 refills. Medications refused. 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
--- OUTSIDE RECORDS SUMMARY | 2022-08-02 15:08 | XMS_ITS | Encounter Summary ---
:1995 Author Organization [place] Address [address] [place] [address]. 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 documented as of this encounter Plan of Treatment Upcoming Encounters Date Type Specialty Care Team Description 12/28/2022 Virtual Visit Endocrinology Merle Mccarthy MD [address] [place] [address] (Wo rk) documented as of this encounter Visit Diagnoses Not on filedocumented in this encounter Care Teams Leaf Size Picker Relationship Specialty Start Date End Date Billie Guadarrama PCP - General 12/17/19 [facility] [address] [place] [address] documented as of this encounter
--- OUTSIDE RECORDS SUMMARY | 2022-08-02 15:08 | XMS_ITS | Encounter Summary ---
:1995 Author Organization [facility] Address [address] [place] [address]. 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 Duplicate request. 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
--- OUTSIDE RECORDS SUMMARY | 2022-08-02 15:08 | XMS_ITS | Encounter Summary ---
:1997 Author Organization [place] Address [facility] 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 I called the single spindle screw machine operator of [facility] and was transfer to the med surg floor who said they could have the mom talk with the nurse who took care of her. Transfered. Triage Note: Guideline Title: Information Only Call - No Triage (Pediatric) ; Medication Question Call (Pediatric) Recommended Disposition: Call Provider Immediately Original Inclination: Override Disposition: Intended Action: Physician Contacted: No Medication questions ? YES Lab result questions ? NO [1] Caller is not with the child AND [2] is reporting urgent symptoms ? NO Caller requesting information not related to medication ? NO Caller requesting a prescription for Strep throat and has a positive culture result ? NO Pharmacy calling with prescription question and triager unable to answer question ? NO Diarrhea from taking antibiotic ? NO Immunization reaction suspected ? NO Diabetes medication overdose (e.g., insulin) ? NO Drug overdose and nurse unable to answer question ? NO [1] Asthma and [2] having symptoms of asthma (cough, wheezing, etc) ? NO [1] Prescription not at pharmacy AND [2] was prescribed today by PCP ? NO [1] Symptom of illness (e.g., headache, abdominal pain, earache, vomiting) AND [2] more than mild ? NO Medication administration techniques, questions about ? NO Medication refusal OR child uncooperative when trying to give medication ? NO Rash while taking a prescription medication or within 3 days of stopping it ? NO Vomiting or nausea due to medication OR medication re-dosing questions after vomiting medicine ? NO [1] Request for urgent new prescription or refill (likelihood of harm to patient if med not taken) AND [2] triager unable to fill per unit policy ? NO Post-op pain or meds, questions about ? NO Reflux med questions and child fussy ? NO control pills, questions about ? NO Physician Instructions: Care Advice: documented in this encounter Plan of Treatment Upcoming Encounters Date Type Specialty Care Team Description 12/28/2022 Virtual Visit Endocrinology Merle Mccarthy MD [address] [place] [address] (Wo rk) documented as of this encounter Visit Diagnoses Not on filedocumented in this encounter Care Teams Rehabilitation Medicine Physician Relationship Specialty Start Date End Date Frw, None PCP - General Family Practice 02/06/13 06/09/17 documented as of this encounter
--- OUTSIDE RECORDS SUMMARY | 2022-08-02 15:09 | XMS_ITS | Encounter Summary ---
:1995 Author Organization [place] Address [address] [place] [address]. [place] [address] Care Team Providers Name Role Phone Tucekr Michel MD Primary Care Provider Reason for Visit Reason Comments Well Child 6r./preschool Encounter Details Date Type Department Care Team Description 05/23/2001 Office Visit [facility] Tucker Micehl ROUTI [facility] [place] EXAM (Primary Dx) Pediatrics [facility] [place] [address] [place] [address] [place], [place] [address] [address] [place], [place] [phone] [address] Social History Tobacco Use Types Packs/Day Years Used Date Smoking Tobacco: Never Assessed Comments: NO 2ND HAND SMOKE AT HOME [...] at Date Recorded 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 (Girls, 2-20 Years) Body Mass Index 15.41 05/23/2001 10:40 AM CDT Body Mass Index Percentile 52.45 % 05/23/2001 10:40 AM C DT Growth Chart: [facility] (Girls, 2-20 Years) documented in this encounter Progress Notes 05/23/2001 10:40 AM CDT Altagracia Garcai is a 5 year old female here for 6 year well child exam. Brought in by mother. HIST ORY Current Concerns: hyperactive behavior; discipline Diet: appropriate diet Water Source: [facility] Elimination: constipation, will only stool in pullups, insists on wearing pullups to bed despite being dry most nights and normal urination. Sleep: sleeps through the night, but doesn't go to bed un til 11 or later after mother is home from work. Daycare: No Noteworthy social stressors: none History Modules Reviewed: Yes Patient Active Problem List: NO ACTIVE PROBLEMS[[id number]] DEVELOPMENTAL SCR EEN: Parent Concerns about Development:NO School district screening (hearing/vision):No SOCIAL Names friend: Yes Wash and Dry hands: Yes Dresses independently:Yes FINE MOTOR Copies shosh[place]: Yes Copies cross: Yes Copies square: Yes Thumb wiggle: Not Asked ALEX S MOTOR Down Stairs alone: Yes Balance 1 foot 2 sec: Yes Hop on each foot(5x): Yes LANGUAGE Unders tandable speech:Yes Count by rote: Yes PHYSICAL EXAM: BP 88/46 Ht 3' 5.5 (1.05m) Wt 37 lbs 12 oz (17.12 kg) Growth charts reviewed. General: Alert, interactive and appropriate Head: NORMAL Eyes: NORMAL EOM (cover/uncover): NORMAL Ears: NORMAL Nose: NORMAL Mouth: NORMAL Neck: NORMAL Resp: NORMAL Heart: NORMAL Abdomen: N ORMAL Genitalia: NORMAL female Musculoskeletal: NORMAL Gait: NORMAL Skin: NORMAL Neurological: NORMAL EDUCATION/DISCUSSED: Commen ts: Discussed discipline, behavior, toilet issues Risk Assessment Reviewed and Discussed:Yes, ASSESS MENT/PLAN: Normal growth and development at 5 year old. Handout on age appropriate development/safety given. Reviewed immunizations. Return in 1 year (age 7 years). documented in this encounter Plan of Treatment Upcoming Encounters Date Type Specialty Care Team Description 12/28/2022 Virtual Visit Endocrinology Merle Mccarthy MD [address] [place] [address] (Wo rk) documented as of this encounter Visit Diagnoses Diagnosis Routine or child health check - P rimary documented in this encounter Care Teams Community Recreation Programmer Relationship Specialty Start Date End Date Tucker Michel MD PCP - General 11/02/00 02/05/13 [facility] [address] [facility] [address] [place] [address] documented as of this encounter
--- OUTSIDE RECORDS SUMMARY | 2022-08-02 15:09 | XMS_ITS | Encounter Summary ---
:1995 Author Organization [place] Address [address] [place] [address]. [place] [address] Care Team Providers Name Role Phone Tucker Michel MD Primary Care Provider Reason for Visit Reason Comments Cough c/o sore throat,sick x one d ay,had bad cold about 2 wks ago Encounter Details Date Type Department Care Team Description 09/26/[address] 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 Symptoms include sore throat. Onset 1 days, unchanged since that time. Known Strep expos ure: none. She had about 1 week of preceding cold symptoms. No prescriptions on file. Review of patient's allergies indicates: No Known Aller* abstract Tobacco Use: Never Comment: NO 2ND HAND SMOKE AT HOME OBJECTIVE: Temp 100.2 Temp Src: Tympanic Wt 39 lbs (17.690 kg) Gener al appearance: alert, active, no distress Ears: R TM - normal: no effusions, no erythema, and normal landmarks, L TM - normal: no effusions, no erythema, and normal landmarks Nose: normal Oropharynx: no rmal Neck: normal Lungs: normal and clear to auscultation Heart: regular rate and rhythm ASSESSMENT: Acute pharyngitis - r/o Strep RSS negative Dx: Non-strep pharyngitis Rx: 1) Symptomatic treatm ent with fluids, vaporizer, acetaminophen. 2) Recheck as needed for persistence, worsening, appearan ce of new symptoms. PLAN: Discussed possible etiologies of symptoms and need for antibiotic treat ment if Strep found. documented in this encounter Nursing Notes 09/26/2001 9:20 AM CST >> IGLESIA PAIGE 09/26/2001 9:11 am last dose of tyl. at 9 am documented in this encounter Plan of Treatment Upcoming Encounters Date Type Specialty Care Team Description 12/28/2022 Virtual Visit Endocrinology Merle Mccarthy MD [address] [place] [address] (Wo rk) documented as of this encounter Procedures Procedure Name Priority Date/Time Associated Diagnosis Comme nts HCL STREP A RAPID Routine 09/26/2001 Acute Pharyngitis Resul ts for this procedure are in the resu lts section. documented in this encounter Results STREP A ASSAY W/OPTIC (09/26/2001) P athologist Signature Rapid Strep A negative [facility] Specimen (Source) Anatomical Location Collection Method / Collectio n Time Received Time / Laterality Volume Specimen from 09/26/2001 throat (specimen) Impressions [facility] - 09/27/2001 1 :11 PM TIGHT BARREL INSPECTOR ln Narrative [facility] - 09/27/2001 1 :11 PM TIGHT BARREL INSPECTOR FINAL CULTURE REPORT: NO BETA STREP Belkis Malcolm PA-C LABORATORY Performing Organization Address City/State/ZIP Code Phon e Number [facility] [address] documented in this encounter Visit Diagnoses Diagnosis Acute pharyngitis - Primary documented in this encounter Care Teams Paint Preparer Relationship Specialty Start Date End Date Tucker Michel MD PCP - General 11/02/00 02/05/13 [facility] [place] [address] [facility] [address] [place] [address] documented as of this encounter
--- OUTSIDE RECORDS SUMMARY | 2022-08-02 15:09 | XMS_ITS | Encounter Summary ---
:1995 Author Organization [place] Address [address] [place] [address]. 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 MEDICATIONS: She is not currently on any medications. ALLERGIES: No known drug allergies. OBJECTIVE: This is a pleasant female in no acute distress. She is alert and cooperative with examination. Vitals: Temp 99.1 by ear. Conjunctivae are clear without injection or discharge. There is some venostasis beneath both eyes. Nares are patent. Turbinates are non-swollen, there is clear discharge present. Exte rnal ear canals are patent, non-erythematous. TMs are translucent with normal light reflex and bony landmarks. Oropharynx: Olimpo and moist. Pharynx is slightly erythematous without exudate. Posterio r pharynx is clear. Neck is supple without significant lymphadenopathy. Lungs are clear to auscu ltation, no rhonchi, rales, wheezing, or crackles present. ASSESSMENT: Viral URI. PLAN: Supporti ve and symptomatic cares are discussed and encouraged. She is encouraged to try and jirt-hmx-blmoztt Robitussin DM for her congestion and cough. If symptoms do not improve or worsen, sheshould return to the clinic for further evaluation. FAVIO Conde.frances -------- Abstracted by Desiree funeral director on 05/22/2001 Altagracia Garcia09/05/[id number] S:This little girl comes in tonight to recheck her urine. Mother says she is back to voiding very normally and without any complaints of pain. She is not drinking as much as she was before this UTI happened. Mother thinks it is because she is holding off on liquids becau se she thinks it may hurt whenshe has to urinate. O:Repeat UA was done prior to my seeing her an d is completely negative, but it does have a trace ofketones. A:Resolved UTI. P:Mom should cont inue to encourage extra fluids. For now will recheck only as needed. Angela tGz PA-C/kimberlee D: documented in this encounter Plan of Treatment Upcoming Encounters Date Type Specialty Care Team Description 12/28/2022 Virtual Visit Endocrinology Merle Mccarthy MD [address] [place] [address] (Wo rk) documented as of this encounter Visit Diagnoses Not on filedocumented in this encounter Care Teams Handle Bar Assembler Relationship Specialty Start Date End Date Tucker Michel MD PCP - General 11/02/00 02/05/13 [facility] [address] [facility] [address] [place] [address] documented as of this encounter
--- OUTSIDE RECORDS SUMMARY | 2022-08-02 15:09 | XMS_ITS | Encounter Summary ---
:1995 Author Organization [facility] Address [address] [place] [address]. [place] [address] Care Team Providers Name Role Phone Tucker Michel MD Primary Care Provider Reason for Visit Reason Comments Abstract Well Child 4 yr Encounter Details Date Type Department Care Team Description 06/22/1999 Abstract [facility] [place] Abs Sonja baxter Medical Records [address] [place] [address] Social History Tobacco Use Types Packs/Day Years Used Date Smoking Tobacco: Never Assessed Alcohol Habits Answer Date Recorded How often do you have a drink containing alcohol? Never 04/09/2020 How many drinks containing alcohol do you have on a typical Not asked day when you are drinking? How often do you have six or more drinks on one occasion? 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 documented as of this encounter Last Filed Vital Signs Vital Sign Reading Time Taken Comments Blood Pressure - - Pulse - - Temperature - - Respiratory Rate - - Oxygen Saturation - - Inhaled Oxygen Concentration - - Weight 14.2 kg (31 lb 4.8 oz) 06/22/1999 12:00 AM CDT Height 91.4 cm (3') 06/22/1999 12:00 AM CDT Euyhyw-lfc-Ictzjj Percentile 86.93 % 06/22/1999 12:00 AM CDT Growth Chart: WHO (Girls, 0-2 years) Head Circumference 48.2 cm 06/22/1999 12:00 AM CDT Head Circumference Percentile 76.97 % 06/22/1999 12:00 A M CDT Growth Chart: WHO (Girls, 0-2 years) Body Mass Index 16.98 06/22/1999 12:00 AM CDT Body Mass Index Percentile 86.53 % 06/22/1999 12:00 AM C DT Growth Chart: WHO (Girls, 0-2 years) documented in this encounter Plan of Treatment Upcoming Encounters Date Type Specialty Care Team Description 12/28/2022 Virtual Visit Endocrinology Merle Mccarthy MD [address] [facility] [address] [place] [address] (Wo rk) documented as of this encounter Visit Diagnoses Not on filedocumented in this encounter Care Teams Magazine Keeper Relationship Specialty Start Date End Date Tucker Michel MD PCP - General 11/02/00 02/05/13 [facility] [address] [facility] [address] [place] [address] documented as of this encounter
--- OUTSIDE RECORDS SUMMARY | 2022-08-02 15:09 | XMS_ITS | Encounter Summary ---
:1995 Author Organization [facility] Address [address] [place] [address]. 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 Onset 2 days, stable since that time. Symptoms include headache. Altagracia deniescongestio n, ear pain, productive cough and vomiting. Known Strep exposure: none. No current prescriptions on file. Review of patient's allergies indicates none on file. OBJECTIVE: Temp 98.9 Wt 38 lbs (17.24 kg) General appearance: healthy, alert, active Ears: R TM - normal: no effusions, no erythema, and n ormal landmarks, L TM - normal: no effusions, no erythema, and normal landmarks Nose: normal Orophary nx: smal erythematous vesicles on post pharynx Neck:normal, supple and no adenopathy Lungs: normal a nd clear to auscultation Heart: normal and regular rate and rhythm RSS:negative ASSESSMENT:Non-stre p pharyngitis PLAN:24 hour culture Rx: 1) Symptomatic treatment with fluids, rest, acetaminophen. 2 ) Recheck as needed for persistence, worsening, appearance of new symptoms. documented in this encounter Nursing Notes 03/07/2001 3:00 PM CDT >> INDER CAMPOS 03/07/2001 3:06 pm FEVER 102.0 SINCE YESTERDAY, C/O OPEN SORES ON TOP OF MOUTH,ENLARGED GLAND ON (R) SIDE OF THROAT. LAST DOES OF TYLENOL GIVEN AT 1:30 PM TODAY.MAY HAVE BEEN SOME HALLUCINATING OF COLORS DURING FEVER ON tuesday NIGHT. documented in this encounter Plan of Treatment Upcoming Encounters Date Type Specialty Care Team Description 12/28/2022 Virtual Visit Endocrinology Merle Mccarthy MD [address] [place] [address] (Wo rk) documented as of this encounter Procedures Procedure Name Priority Date/Time Associated Diagnosis Comme nts HCL STREP A RAPID Routine 03/07/2001 Acute Pharyngitis Resul ts for this procedure are in the resu lts section. documented in this encounter Results STREP A ASSAY W/OPTIC (03/07/2001) P athologist Signature Rapid Strep A neg [facility] Specimen (Source) Anatomical Location Collection Method / Collectio n Time Received Time / Laterality Volume 03/07/2001 Narrative [facility] - 03/09/2001 1 2:31 PM CDT FINAL CULTURE REPORT: NO BETA STREP Sher Londono MD LABORATORY Performing Organization Address City/State/ZIP Code Phon e Number [facility] [place] [address] documented in this encounter Visit Diagnoses Diagnosis Acute pharyngitis - Primary documented in this encounter Care Teams Green Chain Puller Relationship Specialty Start Date End Date Tucker Michel MD PCP - General 11/02/00 02/05/13 [facility] [place] [address] [facility] [address] [place] [address] documented as of this encounter
--- OUTSIDE RECORDS SUMMARY | 2022-08-02 15:09 | XMS_ITS | Encounter Summary ---
:1995 Author Organization [facility] Address [address] [place] [address]. 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 Plan of Treatment Upcoming Encounters Date Type Specialty Care Team Description 12/28/2022 Virtual Visit Endocrinology Merle Mccarthy MD [address] [place], [place] [address] (Wo rk) documented as of this encounter Visit Diagnoses Not on filedocumented in this encounter Care Teams Test Administrator Relationship Specialty Start Date End Date Tucker Michel MD PCP - General 11/02/00 02/05/13 [facility] [place] [address] [facility] [address] [place] [address] Frw, None PCP - General Family Practice 02/06/13 06/09/17 Billie Guadarrama PCP - General 12/17/[address] [address] Rocio Mccarthy, Assigned Endocrinology 08/01/20 11/28/[address] [place], [place] [address] Anthony Shaffer MD Assigned OBGYN Provider 05/10/21 05/07/22 [address] [facility] [address] [place], [place] [address] Rocio Mccarthy, Assigned Endocrinology 04/24/[address] [place], [place] [address] documented as of this encounter
--- OUTSIDE RECORDS SUMMARY | 2022-08-02 15:09 | XMS_ITS | Encounter Summary ---
:1997 Author Organization [facility] Address [address] [place] [address]. 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 Last Filed Vital Signs Vital Sign Reading Time Taken Comments Blood Pressure 82/48 06/22/2000 12:00 AM CDT Pulse - - Temperature - - Respiratory Rate - - Oxygen Saturation - - Inhaled Oxygen Concentration - - Weight 15.6 kg (34 lb 8 oz) 06/22/2000 12:00 AM CDT Height 98.4 cm (3' 2.75) 06/22/2000 12:00 AM CDT Wudpkl-zzl-Ehalao Percentile 68.19 % 06/22/2000 12:00 AM CDT Growth Chart: CDC (Girls, 2-20 Years) Body Mass Index 16.15 06/22/2000 12:00 AM CDT Body Mass Index Percentile 62.92 % 06/22/2000 12:00 AM C DT Growth Chart: [facility] (Girls, 2-20 Years) documented in this encounter Plan of Treatment Upcoming Encounters Date Type Specialty Care Team Description 12/28/2022 Virtual Visit Endocrinology Merle Mccarthy MD [address] [place] [address] (Wo rk) documented as of this encounter Visit Diagnoses Not on filedocumented in this encounter Care Teams Marketing Operations Specialist Relationship Specialty Start Date End Date Tucker Michel MD PCP - General 11/02/00 02/05/13 [facility] [address] [facility] [address] [place] [address] documented as of this encounter
[2022-08-02 18:21] LABS: Hepatitis B Surface Antigen* Negative (Negative)
[2022-08-02 18:30] LABS: HIV 1/2/P24 Combo Screen* Negative (Negative)
[2022-08-02 18:50] LABS: Hepatitis C Virus Antibody* Negative (Negative)
[2022-08-02 19:18] LABS: Chlamydia DNA Amplified* NOT DETECTED (No Detected); GC DNA Amplified* NOT DETECTED (No Detected)
[2022-08-04 14:27] LABS: Rapid Plasma Reagin (RPR) Non Reactive (Non Reactive)
== END 2022-08-02 15:04 | disposition home or self-care (01) ==
PROVIDERS: PCP Family Medicine; Visit Provider Physician Assistant
DX: Z11.3 Encounter for screening for infections with a predominantly sexual mode of transmission (principal)
CPT/HCPCS: 86592; 86703; 86803; 87340; 87491; 87591

== ENCOUNTER 2022-10-09 19:07 | Emergency (ER) | payer MEDICAID, SELFPAY ==
[2022-10-09 19:11] VITALS: BP 116/75; PULSE 90; RESP 16; TEMP 37.2; O2SAT 98; BMI 37.4
--- NOTE | 2022-10-09 20:27 | ED.GENADULT ---
HPI - General Adult General Chief complaint: Abdominal Pain Stated complaint: Ovarian cyst causing pain Time Seen by Provider: 10/09/22 20:10 History of Present Illness HPI narrative: 27-year-old young woman presenting to the emergency department with complaint of increasing left upper abdominal/rib edge pain and itch. This all seems to have started together about 2 weeks ago. She does not recall any particular trauma. Has not seen any rashes other than ones induced from actually itching. Was seen in an area emergency department [address] imaging of at least her abdomen only finding a a cyst on the right ovary. She does have a history of PCOS. The following day apparently saw Dermatology who agreed that the visible rashes mostly result of itching and that might be related to the elevated lipase that was also noted. She says her lipase was 273. She does not have any nausea and has not been vomiting. Was prescribed cyclobenzaprine for presumed muscular issue and has not taken that yet as seems she does not think that that is really the issue. Has not gotten coverage for Lidoderm patches yet to place. In 2014 she did have her gallbladder removed. She notes that her mother with her mother's own gallbladder problems did develop quite a bit of itch. Altagracia has been trying diphenhydramine without much effect. She has also been taking ibuprofen and acetaminophen. Curling up in a ball or a position seemed to help the pain somewhat as has putting pressure on it. Through most of our time together her left hand is pressing up on her lower anterior left ribs. Rotational movement of the spine similar motions does not exaggerate her pain. She does not have any known back disease. No blistering rashes. Pain is not pleuritic. Related Data Home Medications Medication Instructions Recorded Confirmed phentermine 37.5 mg capsule 37.5 mg PO QDAY 04/13/22 10/09/22 levothyroxine 100 mcg capsule 125 mcg PO QDAY 07/01/22 10/09/22 fluconazole 150 mg tablet 150 mg PO Q3D PRN 10/09/22 10/09/22 (Diflucan) Allergies Allergy/AdvReac Type Severity Reaction Status Date / Time oxycodone Allergy Mild Rash Verified 10/09/22 19:15 one oral control Allergy Rash Uncoded 10/09/22 19:15 Review of Systems Status of ROS: Reports: 10 or more systems reviewed and unremarkable except as noted in History and below [facility] Medical History ADHD (attention deficit hyperactivity disorder) Infertility, anovulation PCOS (polycystic ovarian syndrome) PTSD (post-traumatic stress disorder) Surgical History History of cholecystectomy History of ovarian cystectomy Family History Maternal Grandmother Breast cancer Paternal Grandmother Thyroid disease Father FHx: mental illness Addiction Uncle FHx: mental illness Social History Do you want help finding or keeping work or a job: I do not need or want help Highest level of school completed/degree received: high school graduate Physical activity type: walking How many days of moderate to strenuous exercise, like a brisk walk, did you do in the last 7 days: 5 Smoking Status: Never smoker Do you use any of these nicotine containing products: None How often do you have a drink containing alcohol: never AUDIT-C Alcohol total score: 0 Non-prescribed substance use: marijuana (any form) Non-prescribed substance use details: medical marijuana card. Are you using contraception or practicing any form of control: No Exam Narrative: Exam Narrative: Is pleasant. NAD. Calmly texting when I enter the room but generally again with left hand placed at her left rib area. Breathing easily. Skin is warm and dry. Broadly erythematous faintly raised over her lower extremities consistent with scratching. I do not see the area of pain any rash. Lungs are clear. Oropharynx is unremarkable. Neck is supple without LA. Cardiovascular with a heart rate in a regular rhythm and normal rate. There is no pain to palpation about her chest until the midclavicular line rib edge. This does seem to be the point of maximal tenderness. Of little in the abdomen underneath this as well. Abdomen otherwise is overweight. She is also mildly tender to deeper palpation in the right lower quadrant/right adnexal area. Apparently consistent with the cyst in the area. Cranial nerves 2-12 intact. There is no scleral icterus. No jaundice about the skin either. She is not tender in the right upper abdomen nor really in the epigastrium. Const: Vital Signs, click to edit/add: Vital Signs - 24 hr 10/09/22 22:00 Pulse Rate [Left P ulse Oximeter] 82 Respiratory Rate 16 Blood Pressure [Ri ght Upper Arm] 114/73 Pulse Oximetry 97 Oxygen Delivery Me thod Room Air Documenting provider has reviewed patient's vital signs: yes Course Vital Signs Vital signs: Initial Vital Signs Temperature 99.0 F 10/09/22 19:11 Temperature Source Temporal Artery Scan 10/09/22 19:11 Pulse Rate 90 10/09/22 19:11 Respiratory Rate 16 10/09/22 19:11 Blood Pressure 116/75 10/09/22 19:11 Blood Pressure Mean 88 10/09/22 19:11 Blood Pressure Position Sitting 10/09/22 19:11 Pulse Oximetry 98 10/09/22 19:11 Oxygen Delivery Method 10/09/22 19:11 Vital Signs Temperature 99.0 F 10/09/22 19:11 Pulse Rate 90 10/09/22 19:11 Respiratory Rate 16 10/09/22 19:11 Blood Pressure 116/75 10/09/22 19:11 Pulse Oximetry 98 10/09/22 19:11 Oxygen Delivery Method 10/09/22 19:11 Temperature 99.0 F 10/09/22 19:11 Pulse Rate 82 10/09/22 22:00 Respiratory Rate 16 10/09/22 22:00 Blood Pressure 114/73 10/09/22 22:00 Pulse Oximetry 97 10/09/22 22:00 Oxygen Delivery Method 10/09/22 22:00 Medical Decision Making MDM Narrative Medical decision making narrative: I do not see evidence of gallbladder pruritus. Unusual pain response perhaps. I suspect that the mildly elevated lipase is more of an incidental finding. Pain is consistent elsewhere in the abdomen with ovarian cyst that was noted apparently on her imaging. Rib edge area pain at this point of unclear etiology. Will be applying Lidoderm patch and giving Vistaril and recheck of labs. Labs are wholly unremarkable with slightly elevated transaminases not inconsistent with post cholecystectomy or possibly fatty liver disease. Normal lipase. Pain is markedly improved and as is itch. She does feel she could sleep tonight. Has upcoming appointment with primary care in about 5 days. Consider treating this somewhat as a costochondritis with regularly-dosed NSAIDs or possibly steroids. Can get Lidocaine patches [id number]. Steroid should also help the itch. Lab Data Lab results reviewed: Yes I reviewed the patient's lab results Labs: Lab Results 10/09/22 10/09/22 Range/Units 20:43 20:43 Sodium 138 (135-149) mmol/L Potassium 3.7 (3.6-5.1) mmol/L Chloride 106 (96-114) mmol/L Carbon Dioxide 25 (20-32) mmol/L BUN 14 (5-24) mg/dL Creatinine 0.8 (0.5-1.5) mg/dL Estimated Creat Clear 96.73 Estimated GFR 105 ml/min Glucose 95 (60-115) mg/dL Calcium 9.3 (8.4-10.6) mg/dL Total Bilirubin 0.5 (0.1-1.5) mg/dL Direct Bilirubin 0.2 (0.0-0.5) mg/dL AST 36 H (12-35) U/L ALT 44 H (4-35) U/L Alkaline Phosphatase 83 (40-150) U/L C-Reactive Protein 0.7 (0.5-1.0) mg/dL Total Protein 7.6 (6.0-8.3) g/dL Albumin 4.7 (3.3-5.0) g/dL Lipase 169 (23-300) U/L Discharge Plan Discharge Clinical Impression: Rib pain on left side, Pruritus Patient Disposition: Home, Self-Care Condition: Improved Additional Instructions: Can continue to take Vistaril/hydroxyzine as needed for breakthrough itch. I think a course of prednisone could be helpful here; this may also help you with the rib area pain. Lidocaine patches are available [id number]-[id number]. You might try those. With a little food might try 600 mg of ibuprofen 3 times daily or up to 500 mg of naproxen 2 times daily either over the next 5-6 days. Hydroxyzine and prednisone from [facility]. Prescriptions: No Action phentermine 37.5 mg capsule 37.5 mg PO QDAY Rx Instructions: must administer 30 minutes before or 1-2 hours after breakfast levothyroxine 100 mcg capsule 125 mcg PO QDAY fluconazole [Diflucan] 150 mg tablet 150 mg PO Q3D PRN Rx Instructions: One tab today, repeat in 3 days if still symptomatic Follow Up/Referrals: Billie Guadarrama, DO [Primary Care Provider] - Stand Alone Forms: MyHealth Info Instructions
[2022-10-09 20:30] VITALS: BP 119/81; PULSE 69; RESP 16; O2SAT 100
[2022-10-09] MEDS: LIDOCAINE 5% PATCH 1 PATCH TRANSDERMA (20:38)
[2022-10-09] MEDS: hydrOXYzine pamoate 25 MG CAPSULE 50 MG PO (20:39)
[2022-10-09 21:00] VITALS: BP 113/76; PULSE 84; RESP 16; O2SAT 97
[2022-10-09 21:03] LABS: Chloride* 106 mmol/L (96-114)
[2022-10-09 21:04] LABS: Albumin* 4.7 g/dL (3.3-5.0); Potassium* 3.7 mmol/L (3.6-5.1); Sodium* 138 mmol/L (135-149)
[2022-10-09 21:06] LABS: Creatinine* 0.8 mg/dL (0.5-1.5); Est. Creatinine Clearance* 96.73; Estimated Glomerular Filt Rate 105 ml/min
--- OUTSIDE RECORDS SUMMARY | 2022-10-09 21:06 | XMS_ITS ---
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 Problem Other specified E03.8 Active 4093 0008 hypothyroidism Problem Body mass index Z68.35 Active 4433 [id number] (BMI) of 35.0-35.9 in adult ALLERGIES Substance Reaction Event Type Date Status Percocet Unknown Drug Allergy February, Active ENCOUNTERS Encounter Location Date Diagnosis [facility] [address] February, [place], [place] [id number] [facility] [employer] Jan, [address] [address] [facility] [employer] Jan, [address] [address] [facility] [employer] Jan, [address] [address] [facility] [employer] Oct, [address] [address] [facility] [employer] Oct, [address] [address] [facility] [employer] Oct, [address] [address] [facility] [address] Oct, [address] [address] [facility] [address] Oct, [address] [address] [facility] [address] Oct, [address] [address] [facility] [address] Oct, [address] [address] [facility] [address] Oct, [address] [address] [facility] [address] Oct, [address] [address] [facility] [address] Oct, [place], [place] [id number] [facility] [address] Oct, [address] [address] [facility] [address] Oct, [place], [place] [id number] [facility] [address] Oct, [address] [address] [facility] [address] Oct, [address] [address] [facility] [address] Oct, Infer tility associated with [address] rashawn on N97.0 [address] [facility] [address] Oct, [address] [address] [facility] [address] Oct, [address] [address] [facility] [address] Oct, [address] [address] [facility] [address] Oct, [address] [address] [facility] [address] Oct, [address] [address] [facility] [employer] Oct, [address] [address] [facility] [employer] Sep, PCOS (polycystic ovarian [address] syndrome) E28.2 ; [address] Infertility asso ciated with anovulation N97. 0 and Other specified hypoth yroidism E03.8 [facility] [employer] Sep, Infer tility associated with [address] anovulati on N97.0 [address] [facility] [address] Sep, [address] [address] [facility] [address] Sep, [address] [address] [facility] [address] Sep, [address] [address] [facility] [address] Sep, [address] [address] [facility] [address] Sep, [address] [address] [facility] [address] Sep, [address] [address] [facility] [address] Aug, [address] [address] [facility] [address] Aug, [place], [place] [phone] [facility] [address] Aug, PCOS (polycystic ovarian [address], syndrome) E28.2 ; [place] [address] Infertility asso ciated with anovulation N97. 0 and Morbid (severe) obesity due to excess calori es E66.01 [facility] [address] Jul, Irreg ular menstrual [facility] [address] [place] [address], [facility] [address] [place] [address] [employer] Z31.9 [facility] [address] Jul, [address] [address] [place] [address] [facility] [address] Jun, Secjoseph schuler amenorrhea N91.1 [place] [address] [place], ; [place] [address] hypothyroidism E 03.8 ; Autoimmune thyro iditis [...] ASSAY OF TOTAL TESTOSTERONE Jul 30, 2019 ASSAY OF TESTOSTERONE Jul 30, 2019 No Charge Visit Oct 08, 2019 ASSAY OF SEX HORMONE GLOBUL Jul [...] 2.3 0.2-5.0 REASON FOR VISIT Insurance Providers [facility] Health Member Patient Patient Patient Patient Patient Subscriber Subscriber Subscriber Group Insurance Plan Plan Plan Plan ID Relationship Address Phone Name Date of ID Name Date of No Type Insurance Insurance Insurance Coverage to Subscriber Address Phone Name Dates [facility] [address] [facility] self [place] [id number] [id number] [address] [place] [address] [place] self [place] [id number] Care [id number] Care [employer] (Ins. [place] (Ins. Bill) [id number] Bill) MEDICAL (GENERAL) HISTORY Type Description Date Medical History Depression\Anxiety Medical History Thyroid disease Surgical History Lymph node 2014 Surgical History Polyp removal 2018 Surgical History Tonsilectomy 2014 Surgical History Gallbladder 2016
[2022-10-09 21:07] LABS: Alanine Aminotransferase* 44 U/L (4-35); Alkaline Phosphatase* 83 U/L (40-150); Aspartate Amino Transferase* 36 U/L (12-35); Bilirubin Direct* 0.2 mg/dL (0.0-0.5); Bilirubin Total* 0.5 mg/dL (0.1-1.5); Blood Urea Nitrogen* 14 mg/dL (5-24); Carbon Dioxide* 25 mmol/L (20-32); Glucose* 95 mg/dL (60-115); Lipase* 169 U/L (23-300); Total Protein* 7.6 g/dL (6.0-8.3)
[2022-10-09 21:08] LABS: Calcium* 9.3 mg/dL (8.4-10.6)
[2022-10-09 21:11] LABS: C Reactive Protein* 0.7 mg/dL (0.5-1.0)
[2022-10-09 21:30] VITALS: BP 122/79; PULSE 81; RESP 16; O2SAT 100
[2022-10-09 22:00] VITALS: BP 114/73; PULSE 82; RESP 16; O2SAT 97
== END 2022-10-09 22:17 | disposition home or self-care (01) ==
PROVIDERS: Emergency Provider Family Medicine; PCP Family Medicine
DX: R07.81 Pleurodynia (principal); L29.9 Pruritus, unspecified
CPT/HCPCS: 36415; 80048; 80076; 83690; 86140; 99283; 99284; A9270

== ENCOUNTER 2022-10-19 07:57 | Outpatient (CLI) | payer MEDICAID, SELFPAY ==
--- OUTSIDE RECORDS SUMMARY | 2022-10-19 08:00 | XMS_ITS ---
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 21686337 thyroiditis Problem Other specified E03.8 Active 4093 0008 hypothyroidism Problem Body mass index Z68.35 Active 4433 [id number] (BMI) of 35.0-35.9 in adult ALLERGIES Substance Reaction Event Type Date Status Percocet Unknown Drug Allergy February, Active ENCOUNTERS Encounter Location Date Diagnosis [facility] [address] February, [place], [place] [id number] [facility] [place] [address] Jan, [address] [address] [facility] [employer] Jan, [address] [address] [facility] [employer] Jan, [address] [address] [facility] [employer] Oct, [address] [address] [facility] [address] [employer] Oct, [address] [address] [facility] [place] [employer] Oct, [address] [address] [facility] [address] Oct, [address] [address] [facility] [address] Oct, [address] [address] [facility] [address] Oct, [address] [address] [facility] [address] Oct, [address] [address] [facility] [address] Oct, [address] [address] [facility] [address] Oct[address] [address] [facility] [address] Oct, [place], [place] [phone] [facility] [address] Oct, [address] [address] [facility] [address] Oct, [place] [phone] [facility] [address] Oct, [address] [address] [facility] [address] Oct, [address] [address] [facility] [address] Oct, Infer tility associated with [address] rashawn on N97.0 [address] [facility] [address] Oct, [address] [address] [facility] [address] Oct, [address] [address] [facility] [address] Oct, [address] [address] [facility] [address] Oct, [address] [address] [facility] [address] Oct, [address] [address] [facility] [address] [employer] Oct, [address] [address] [facility] [employer] Sep, PCOS (polycystic ovarian [address] syndrome) E28.2 ; [address] Infertility asso ciated with anovulation N97. 0 and Other specified hypoth yroidism E03.8 [facility] [employer] Sep, Infer tility associated with [address] anovulati on N97.0 [address] [facility] [address] Sep, [address] [address] [facility] [address] Sep, [address] [address] [facility] [address] Sep, [address] [address] [facility] [address] Sep, [address] [address] [facility] [address] Sep, [address] [address] [facility] [address] Sep, [address] [address] [facility] [address] Aug, [address] [address] [facility] [place] [address] Aug, [place], [place] [phone] [facility] [address] Aug, PCOS (polycystic ovarian [address], syndrome) E28.2 ; [place] [address] Infertility asso ciated with anovulation N97. 0 and Morbid (severe) obesity due to excess calori es E66.01 [facility] [address] Jul, Irreg ular menstrual [place] [address] [place] [address], [facility] [address] [place] [address] [employer] Z31.9 [facility] [address] Jul, [place] [address] [place] [address] [facility] [address] Jun, Secjoseph schuler amenorrhea N91.1 [place] [address] [place], ; [place] [address] hypothyroidism E 03.8 ; Autoimmune thyro iditis [...] 0.2-5.0 REASON FOR VISIT Insurance Providers [facility]ly [facility] Health Member Patient Patient Patient Patient Patient Subscriber Subscriber Subscriber Group Insurance Plan Plan Plan Plan ID Relationship Address Phone Name Date of ID Name Date of No Type Insurance Insurance Insurance Coverage to Subscriber Address Phone Name Dates [facility] [address] [facility] self [place] [id number] [facility] [address] [place] [address] [place] self [place] [id number] Care [id number] Care [place] (Ins. [place] (Ins. Bill) [id number] Bill) MEDICAL (GENERAL) HISTORY Type Description Date Medical History Depression\Anxiety Medical History Thyroid disease Surgical History Lymph node 2014 Surgical History Polyp removal 2018 Surgical History Tonsilectomy 2014 Surgical History Gallbladder 2016
--- NOTE | 2022-10-19 08:15 | CRLHL7_ITS ---
For Patients: As a result of the Century Cures Act, medical imaging exams and procedure reports are released immediately into your electronic medical record. You may view this report before your referring provider. If you have questions, please contact your health care provider. INDICATION: Pelvic pain; Right ovarian cyst noted on a CT COMPARISON: CT 10/06/2022, 09/20/2016 TECHNIQUE: 2D san scale and color Doppler images were acquired of the pelvis using a transabdominal and transvaginal approach. FINDINGS: Sonographic images demonstrate a normal size and smooth outer contour of the uterus. Uterus measures 7.7 cm in length by 3.8 cm in AP diameter by 4.4 cm in transverse dimension. An incidental cervical nabothian cyst is present measuring 7 x 6 x 6 millimeters. The endometrial lining appears normal and measures 6 mm in composite thickness. The right ovary measures 4.8 x 3.1 x 3.1 cm in size and the left ovary measures 4.1 x 2.3 x 1.9 cm. Multiple ovarian follicles are again noted. The ovaries demonstrate normal arterial and venous blood flow on color Doppler analysis. There are no suspicious fluid collections within the cul-de-sac. IMPRESSION: Polycystic ovarian syndrome, similar to the prior ultrasound examination. No ovarian cyst. Dictated by Rashad Yin MD @ 10/19/2022 8:52:32 AM (Electronically Signed)
== END 2022-10-19 07:58 | disposition home or self-care (01) ==
LOC: US 07:58
PROVIDERS: PCP Family Medicine; Visit Provider Physician Assistant
DX: R10.2 Pelvic and perineal pain (principal)
CPT/HCPCS: 76830; 76856

== ENCOUNTER 2022-12-27 16:23 | Emergency (ER) | payer MEDICAID, SELFPAY ==
[2022-12-27 16:45] VITALS: BP 119/74; PULSE 74; RESP 16; TEMP 36.9; O2SAT 100; BMI 36.9
--- NOTE | 2022-12-27 17:56 | ED.GENADULT ---
HPI - General Adult General Time Seen by Provider: 17:56 Date Seen: 12/27/22 Chief complaint: Cough Stated complaint: covid+ 3 weeks ago, still symptomatic Time Seen by Provider: 12/27/22 17:56 Source: patient, RN notes reviewed and old records reviewed Mode of arrival: ambulatory Limitations: no limitations History of Present Illness HPI narrative: Patient is a very pleasant 27-year-old female with history of PCOS, hypothyroidism who comes to the emergency room for evaluation of increasing cough. Patient notes that she tested positive for COVID on November 30 and was sick for approximately 1 week. She notes that she then improved for approximately a week. Fortunately she then started experiencing increasing cough with production of some white mucus. That has gradually increased and she describes chest feeling like it is on fire and almost closing especially when she tries to take a deep breath. He does get discomfort in the left side of her chest radiating laterally but states this is from coughing or when she is breathing. At time she has a coughing attack and she cannot catch her breath. She denies any calf tenderness or edema. She has not had a history of DVT. She denies possibility of . She has not had fever or chills. She notes that this white mucus has thickened and seems to be more prevalent. She denies any green mucus. She did take another COVID test and it was negative. Related Data Home Medications Medication Instructions Recorded Confirmed levothyroxine 100 mcg capsule 125 mcg PO QDAY 07/01/22 12/27/22 Allergies Allergy/AdvReac Type Severity Reaction Status Date / Time oxycodone Allergy Mild Rash Verified 10/15/22 11:16 DROSPIRENONE-ETHINYL Allergy Unknown Rash Uncoded 10/15/22 11:16 ESTRADIOL Review of Systems Status of ROS: Reports: 6 or more systems reviewed and unremarkable except as noted in History and below Const: Denies: fever, chills or fatigue Eyes: Denies: change in vision ENMT: Denies: throat pain, neck pain, throat swelling or difficulty swallowing Cardio: Reports: chest pain, lightheadedness and shortness of breath with exertion; Denies: palpitations, edema or swelling of feet/ankles Resp: Reports: shortness of breath and cough GI: Denies: abdominal pain, nausea, vomiting, diarrhea or difficulty swallowing Musculo: Denies: neck pain Endo: Denies: fatigue Allergy/Immuno: Denies: throat swelling PFSH PFSH Medical History ADHD (attention deficit hyperactivity disorder) Anxiety Attention deficit hyperactivity disorder (ADHD) Depression Dyspareunia due to non-psychogenic cause in female History of abnormal cervical Pap smear (12/26/18) History of gestational diabetes Infertility, anovulation Mild episode of recurrent major depressive disorder Oligomenorrhea PCOS (polycystic ovarian syndrome) Posttraumatic stress disorder PTSD (post-traumatic stress disorder) Reflux gastritis Social phobia Thyroid disease Surgical History History of cholecystectomy History of ovarian cystectomy Family History Maternal Grandmother Breast cancer Paternal Grandmother Thyroid disease Father FHx: mental illness Addiction Uncle FHx: mental illness Social History Do you want help finding or keeping work or a job: I do not need or want help Highest level of school completed/degree received: high school graduate Physical activity type: walking How many days of moderate to strenuous exercise, like a brisk walk, did you do in the last 7 days: 5 Smoking Status: Never smoker Do you use any of these nicotine containing products: None Second hand tobacco smoke exposure: No How often do you have a drink containing alcohol: never AUDIT-C Alcohol total score: 0 Non-prescribed substance use: marijuana (any form) Non-prescribed substance use details: medical marijuana card. Are you using contraception or practicing any form of control: No Exam Narrative: Exam Narrative: Patient is very pleasant woman in no acute distress. Eyes are clear. Oral cavity moist mucous membranes. No erythema exudate in posterior oropharynx. Head is atraumatic normocephalic. Neck is supple without lymphadenopathy. Heart with regular rate and rhythm. Lungs show some slightly decreased breath sounds in the right lower lung base and possibly some crackles in that area as well. Otherwise good air movement and there is no wheezing. Abdomen is soft nontender. Lower extremities with no calf tenderness and negative Homans sign. No evidence of edema or erythema. Const: Vital Signs, click to edit/add: Vital Signs - 24 hr 12/27/22 16:45 Temperature 98.5 F Pulse Rate [Pulse Oximeter] 74 Respiratory Rate 16 Blood Pressure [[facility] Upper Arm] 119/74 Pulse Oximetry 100 Oxygen Delivery Me thod Room Air Documenting provider has reviewed patient's vital signs: yes Course Course Hospital Course: At this time patient presents with increasing cough and respiratory symptoms post virus. Differential diagnosis includes but is not limited to post viral pneumonia, bronchitis, anxiety, reactive airway, PE. Vital Signs Vital signs: Initial Vital Signs Temperature 98.5 F 12/27/22 16:45 Temperature Source Temporal Artery Scan 12/27/22 16:45 Pulse Rate 74 12/27/22 16:45 Respiratory Rate 16 12/27/22 16:45 Blood Pressure 119/74 12/27/22 16:45 Blood Pressure Mean 89 12/27/22 16:45 Blood Pressure Position Sitting 12/27/22 16:45 Pulse Oximetry 100 12/27/22 16:45 Oxygen Delivery Method 12/27/22 16:45 Vital Signs Temperature 98.5 F 12/27/22 16:45 Pulse Rate 74 12/27/22 16:45 Respiratory Rate 16 12/27/22 16:45 Blood Pressure 119/74 12/27/22 16:45 Pulse Oximetry 100 12/27/22 16:45 Oxygen Delivery Method 12/27/22 16:45 Temperature 98.5 F 12/27/22 16:45 Pulse Rate 74 12/27/22 16:45 Respiratory Rate 16 12/27/22 16:45 Blood Pressure 119/74 12/27/22 16:45 Pulse Oximetry 100 12/27/22 16:45 Oxygen Delivery Method 12/27/22 16:45 Medical Decision Making [facility] Narrative Medical decision making narrative: 1. Bronchitis-patient noted COVID 1 month ago with 1 week of improvement of symptoms after initial week of COVID. She has now had increasing cough that is worsening. Will treat her for a post viral bronchitis possible pneumonia. Chest x-ray reassuring at this time. Zithromax 500 mg today followed by 250 mg daily for 4 days. Will hold off on steroids at this time she has no wheezing. Do not think this is PE related as she has a normal pulse and O2 sats. She also has no history of DVT nor any lower extremity symptoms., initial D-dimer was canceled. White count within normal limits and CRP is normal. 2. Disposition-home at this time. Seek medical attention for worsening symptoms. Tylenol ibuprofen as needed for pain. Delsym for cough medicine may work during the day. Return to the ER as needed. Lab Data Lab results reviewed: Yes I reviewed the patient's lab results Labs: Lab Results 12/27/22 12/27/22 Range/Units 18:24 18:24 WBC 9.03 (4.50-11.00) K/uL RBC 4.76 (4.00-5.20) m/uL Hgb 13.8 (12.0-16.0) gm/dL Hct 41.2 (33.0-51.0) % MCV 87 (80-100) fL MCH 29 (26-34) pg MCHC 34 (32-36) gm/dL RDW Coeff of Tianna 13.0 (11.5-15.5) % Plt Count 184 (140-440) K/uL Neut % (Auto) 60.6 (42.0-72.0) % Lymph % (Auto) 32.0 (20-44) % Frio % (Auto) 5.0 (0.0-11.0) % Eos % (Auto) 1.8 (0.0-7.0) % Baso % (Auto) 0.4 (0.0-3.0) % Neut # (Auto) 5.47 (1.7-7.0) K/uL Lymph # (Auto) 2.89 (0.90-2.90) K/uL Frio # (Auto) 0.50 (0.00-0.90) K/UL Eos # (Auto) 0.16 (0.00-0.50) K/uL Baso # (Auto) 0.04 (0.00-0.30) K/uL Sodium 139 (135-149) mmol/L Potassium 4.2 (3.6-5.1) mmol/L Chloride 106 (96-114) mmol/L Carbon Dioxide 28 (20-32) mmol/L BUN 10 (5-24) mg/dL Creatinine 0.7 (0.5-1.5) mg/dL Estimated Creat Clear 110.55 Estimated GFR 123 ml/min Glucose 99 (60-115) mg/dL Calcium 9.2 (8.4-10.6) mg/dL C-Reactive Protein < 0.5 L (0.5-1.0) mg/dL Imaging Data Chest x-ray: Attestation: I have reviewed the pertinent imaging results. My impression: No obvious infiltrates. Radiologist's impression: Cardiovascular and mediastinum: Heart size and vasculature are normal in caliber and appearance.? Mediastinum is within normal limits.? Lungs and pleural space: Lungs are clear.? No sign of infiltrate or mass.? No sign of pleural effusion.? No pneumothorax.? Bones and soft tissues: No significant findings.? IMPRESSION: Unremarkable chest. Discharge Plan Discharge Clinical Impression: Bronchitis Patient Disposition: Home, Self-Care Condition: Unchanged Additional Instructions: Recommend starting antibiotic Zithromax today. I will put it out in our [employer] vending machine. Push fluids as much as possible. Ibuprofen or Tylenol as needed for discomfort. The best cough medicine in my opinion is Delsym. The 1st dose often does not work but the 2nd dose does. Seek medical attention for continuing or worsening symptoms. Return to the emergency room as needed Prescriptions: No Action levothyroxine 100 mcg capsule 125 mcg PO QDAY Follow Up/Referrals: Billie Guadarrama DO [Primary Care Provider] - Stand Alone Forms: [employer] Info Instructions
--- NOTE | 2022-12-27 18:09 | CRLHL7_ITS ---
For Patients: As a result of the Century Cures Act, medical imaging exams and procedure reports are released immediately into your electronic medical record. You may view this report before your referring provider. If you have questions, please contact your health care provider. INDICATION: COVID 1 month ago. Increased coughing again TECHNIQUE: Chest 1 view. COMPARISON: 01/09/14 FINDINGS: Cardiovascular and mediastinum: Heart size and vasculature are normal in caliber and appearance. Mediastinum is within normal limits. Lungs and pleural space: Lungs are clear. No sign of infiltrate or mass. No sign of pleural effusion. No pneumothorax. Bones and soft tissues: No significant findings. IMPRESSION: Unremarkable chest. Dictated by: Rashad Avila MD @ 12/27/2022 18:57:23 (Electronically Signed)
[2022-12-27 18:29] LABS: Basophils Absolute Auto 0.04 K/uL (0.00-0.30); Basophils Percent Auto 0.4 % (0.0-3.0); Eosinophils Absolute Auto 0.16 K/uL (0.00-0.50); Eosinophils Percent Auto 1.8 % (0.0-7.0); Hematocrit 41.2 % (33.0-51.0); Hemoglobin* 13.8 gm/dL (12.0-16.0); Immature Granulocytes Abs Auto 0.02 K/uL (0.00-0.30); Immature Granulocytes Pct Auto 0.2 %; Lymphocytes Absolute Auto 2.89 K/uL (0.90-2.90); Mean Corpuscular HGB Conc 34 gm/dL (32-36); Mean Corpuscular Hemoglobin 29 pg (26-34); Mean Corpuscular Volume 87 fL (80-100); Neutrophils Absolute Auto 5.47 K/uL (1.7-7.0); Neutrophils Percent Auto 60.6 % (42.0-72.0); Platelet Count* 184 K/uL (140-440); Red Blood Count 4.76 m/uL (4.00-5.20); White Blood Count* 9.03 K/uL (4.50-11.00)
[2022-12-27 18:34] LABS: Slide Review Reflex No
[2022-12-27 18:43] LABS: Chloride* 106 mmol/L (96-114); Potassium* 4.2 mmol/L (3.6-5.1); Sodium* 139 mmol/L (135-149)
--- OUTSIDE RECORDS SUMMARY | 2022-12-27 18:44 | XMS_ITS | Continuity of Care Document ---
:1995 Author Organization [facility] Address [address] [place] [address] Phone Care Team Providers Name Role Phone Will Ari HOPKINS Unavailable Unavailable Allergies, Adverse Reactions, Alerts Substance Reaction Status Criticality No Known Allergies Active No Informatio n Medications Medication Instructions Dosage Effective Dates Status Comment s (start - stop) Cymbalta 30 mg take 1 capsule once - Active capsule,delayed every evening, after release 1 week increase to 2 capsules once daily levothyroxine 125 mcg take 1 capsule by 125 MCG - Active capsule oral route every day Procedures Procedure Date OFFICE/OUTPATIENT VISIT, EST OFFICE VISIT, EST TELEMEDICINE Drug test def 1-7 classes Drug Urine Toxology With Chromatography OFFICE/OUTPATIENT VISIT, NEW Advance Directives Directive Yes / No Effective Date File Name No Information Encounters Encounter Practice Location Reason(s) Diagnoses Date Provider Provide rs Description For Visit Copied on Encounter [facility] No Information Dec- Will [facility] 0 Ari. Pain Pain 3 [address] [facility] Clinic [place], [address], [place], [place], [id number] [place], , [place]. [id number] tel: , [place] [phone] tel: [phone] OFFICE/OUTPAT [facility] Widespread Chronic pain Nov- Darnell Re zane IENT VISIT, [facility] pain (chief syndromeCervicalgi Overb ainsley Provider: EST Pain Pain complaint) aLow back pain, 3 Delisa. [facility], Clinic unspecifiedFibromy [address], [address] [place] emma [place], [place], [facility] [place], [place], [place], Clinic [address] [place], [id number] [place] [id number] , [place], , [place] tel: [place], tel: [phone] [place], [address]. [id number] tel: [phone] OFFICE VISIT, [facility] Widespread Chronic pain Nov [facility] pain (chief syndromeCervicalgi 0-[address] [place] Provider: TELEMEDICINE Pain Pain complaint) aLow back pain, 2 Delisa. [facility], Clinic unspecifiedFibromy [address], [address] [place], [place], [facility], [place], [place], Clinic [address] [place], [id number] [place] [id number] , [place], , [place] tel: [place], tel: [phone] [place], [address]. [id number] tel: [phone] [facility] No Information Nov- [facility] [place] Provider: Pain Pain 2 Delisa. [facility], Clinic [address], [address] [place], [facility] [place], [place], [place], Clinic [address] [place], [id number] [place] [id number] , [place], , [place] tel: [place], tel: [phone] [place], [address]. [id number] tel: [phone] OFFICE/OUTPAT [place] Widespread Chronic pain Nov [facility] IENT VISIT, [facility] pain (chief syndromeFibromyalg Overb ainsley Provider: NEW Pain Pain complaint) iaLow back pain, [address] [facility], Clinic unspecifiedCervica [address], [address] [place] lgiaEncounter for Tereso [place], therapeutic drug [facility], level monitoring [place], [place], Clinic [address] [place], [id number] [place] [id number] , [place], , [place] tel: [place], tel: [phone] [place] [address]. [id number] tel:[phone] Family History Family Member Type Diagnosis Age At Onset Father Problem Low back problems Mother Problem Low back problems Payers Payer name Insurance type Covered constitution party ID Authorization(s ) Pepe BRENNAN MC [id number] Social History Type Description Quantity Date Captured Comments Alcohol Use Details Unknown Caffeine Use Details Unknown Tobacco Use Status No Information Smoking Status No Information Sex Female Chief Complaint And Reason For Visit No Information Reason For Referral Reason For Referral No Information Plan Of Treatment Date Type Action Status Goal Weight. Due on due Goal Review Allergy List. Due on due Goal Medication Reconciliation. Due o n due Goal PHQ-9. Due on due Goal Hepatitis C screening. Due on due Goal Tobacco Use. Due on due Goal Unhealthy drug use screening. Du prince on due Goal Height. Due on due Goal Update Social History. Due on due Goal Height. Due on due Goal Medication Reconciliation. Due o n due Goal Hepatitis C screening. Due on due Goal Review Allergy List. Due on due Goal Update Social History. Due on due Goal Tobacco Use. Due on due Goal Unhealthy drug use screening. Du e on due Goal Weight. Due on due Goal PHQ-9. Due on due Goal Tobacco Use. Due on due Goal Medication Reconciliation. Due o n due Goal Weight. Due on due Goal PHQ-9. Due on due Goal Review Allergy List. Due on due Goal Unhealthy drug use screening. Du e on due Goal Height. Due on due Goal Update Social History. Due on No due Goal Hepatitis C screening. Due on No due Goal PHQ-9. Due on due Goal Hepatitis C screening. Due on No due Goal Unhealthy drug use screening. Du e on due Goal Height. Due on due Goal Update Social History. Due on No due Goal Tobacco Use. Due on due Goal Review Allergy List. Due on due Goal Medication Reconciliation. Due o n due Goal Weight. Due on due Goal Review Allergy List. Due on due Goal Tobacco Use. Due on due Goal Update Social History. Due on No due Goal Medication Reconciliation. Due o n due Goal Weight. Due on due Goal Height. Due on due Goal Unhealthy drug use screening. Du e on due Goal Hepatitis C screening. Due on due Goal PHQ-9. Due on due History Of Present Illness Encounter Date Complaint History Of Present I llness Comments: Altagracia pr esents for a follow up. Patient c/o widespread pain r/t fibromyalgia. Scheduled consult with [facility] next month.Legs numb and tingling, pain. most bothersome. Some day s feels burning. Goes into back. Stretches seem to he lp. Trying to walk more. Cannabis helps depression and anxiety. Needs personal disability ppw compl eted today and inquires about additional medicatio n options.No other concerns today. Widespread pain Location of the pain is lower back and buttocks and bilateral legs. The client describes it as sharp, achy, burning and ti ngling. Symptom is aggravated by bending, walking ups tairs, walking downstairs, sitting, standing, w alking, lifting, movement and twisting. Relieving factors include stretching and rest. Pertinent nega tives include diarrhea, fatigue, fever and incontinen ce (urinary). Comments: Altagracia pr esents for a follow up after her initial consult. Pat ient c/o widespread pain r/t fibromyalgia. States that she has not heard from [facility] and plans to contact them.She int erested in trialing medical cannabis. No other c oncerns today. Widespread pain Severity level is 8. Duration: chronic. Location of the pain is legs and back. The problem is stable. Pertinent negatives include diarrhea, fatigue, fever and incontinence (ur inary). Comments: Altagracia is a 27 y/o female here for initial consult for widespre ad pain r/t fibromyalgia referred by Dr. Chiara Najera. Patient describes burning, numbness, t ingling, and sharp stabbing pains in BLE, most bothers ome in right foot. Low back and neck pain is intermi ttent sharp and stabbing. Pain averages 10/10.Has t ried physical therapy without lasting relief. Has not tried injections. Patient states that she is s ensitive to many medications. Has had headache SEs wit h Gabapentin, Lyrica, and Amitriptyline. The p atient is not currently managed on any pain medications .Patient is interested in medical cannabis and other p ain management options through [facility]. No other enzo rns today. Widespread pain Severity level is 10 . Duration: chronic. Location of the pain is neck, ba ck and legs. The client describes it as sharp, burning , numbness, tingling and stabbing. It occurs persistent ly. Symptom is aggravated by bending, walking ups tairs, walking downstairs, running, sitting, st anding, walking, housework, movement, twisting a nd lifting. Relieving factors include rest. Pertin ent negatives include diarrhea, dyspnea, fever and i ncontinence (urinary). Functional Status Date Functional Assessment No Information Instructions Date Instruction Additional Informati on No Information Assessments Type Assessment Date No Information Patient Care Teams Name Effective Dates (start - stop) Status M embkristen No Information
--- OUTSIDE RECORDS SUMMARY | 2022-12-27 18:44 | XMS_ITS | Continuity of Care Document ---
:1995 Author Organization [facility] Address [address] [address] [place] [address] Phone Care Team Providers Name Role Phone No Information Unavailable Unavailable Allergies, Adverse Reactions, Alerts Substance Reaction Status Criticality estradiol Rash Active No Information OXYCODONE HCL Rash Active No Information acetaminophen Rash Active No Information Medications Medication Instructions Dosage Effective Dates Status Comment s (start - stop) levothyroxine 175 mcg take 1 tablet by 175 MCG - Activ e tablet oral route every day phentermine 37.5 mg take 1 capsule by 37.5 MG - Active capsule oral route every day before breakfast Vitamin D3 2,000 unit take 1 tablet by 1 tablet - Activ e capsule oral route every day spironolactone 100 mg take 1 tablet by 100 MG - Activ e tablet oral route every day amitriptyline 50 mg take 1 tablet by 50 MG - Active tablet oral route every day at bedtime Procedures Procedure Date Colonoscopy Flex; W/remov Les- Level Iv-surg Path Gross/micro Offic/outpt E&m New Mod-hi Advance Directives Directive Yes / No Effective Date File Name No Information Encounters Encounter Practice Location Reason(s) Diagnoses Date Provider Provide rs Description For Visit Copied on Encounter [facility] No Information No [facility], [address] [address], [place], [id number], [place] tel:[phone] EVELYN [place] [facility] polypsBenign Christiano. [address]: [facility], [place] neoplasm of [address] [place] Referral [address] [place]. [address], of anus and [address], [place] rect[place], , [place], [place], [id number], [id number], [place]. tel:+ tel:[phone] Offic/outpt [facility] Generalized Tien KRAMER Refer ring E&m [facility] Symptoms abdominal 5-[address] Bud. Provider: [facility] FAVIO, or painRectal 9 [address] [facility] [address] Concerns bleedingChange [place], [address], (chief in bowel [address], [address] [place] complaint) functionDietary [address], [place] , [place], counseling and [facility] , [id number], [facility] [place] ated [id number], , [place], [place]: [place]. [phone]. [phone] reading, w/o tel: tel:[phone] diagnosis [place] htn [phone] Family History Family Member Type Diagnosis Age At Onset Mother Problem (finding) Obesity Mother Problem (finding) gallbladder disease Father Problem (finding) Alive and well Mother Problem (finding) Alive and well Brother Problem (finding) Alive and well Mother Problem (finding) Irritable bowel syndrome Payers Payer name Insurance type Covered green party ID Authorization(s ) No Information Social History Type Description Quantity Date Captured Comments Sex Female Smoking Status No Information Chief Complaint And Reason For Visit No Information Reason For Referral Reason For Referral No Information Plan Of Treatment Date Type Action Status Goal Lifestyle education regarding di et completed Referral Ordered: ordered Colonoscopy Appointment date/timeframe: 06/07/2019 History Of Present Illness Encounter Date Complaint History Of Present I llness GI Symptoms or Concerns Altagracia Garcia is a 23-year-old woman with a history of anxiety, depression, fibromyalgia, PCOS, hypothyroidism on thyroid replacement therapy, obesity and previous cholecystectomy in 2016, who present s for change in bowel habits and rectal bl eeding about 2 months ago. She is sent by her p [facility] care provider, Billie Guadarrama.The p atient notes that she has had alternating julio l habits ever since her cholecystectomy in 2 016. This generally has been looser stool in itially after cholecystectomy, but then has turned into alternating between watery stools and constipation. More r ecently in the last couple months or so, she corrales s been having predominantly consti pation with a bowel movement every week or so. However, sometimes the bowel movements are loose or even watery and sometimes they a re more hard. She only started having recta l bleeding about 2 months ago. She notes mostl y bright red blood in the water and on the jc let paper, but sometimes mixed in with her st ool. She gets Functional Status Date Functional Assessment No Information Instructions Date Instruction Additional Informati on Colon Cancer Prevention Related to Color ectal polyps Colon Polyps Related to Colorecta l polyps Hemorrhoids Related to Rectal bl eeding High Fiber Diet Related to Rectal bl eeding Lifestyle education regarding diet Relat ed to Dietary counseling and surveillance Assessments Type Assessment Date No Information Patient Care Teams Name Effective Dates (start - stop) Status M yana No Information
[2022-12-27 18:45] LABS: Creatinine* 0.7 mg/dL (0.5-1.5); Est. Creatinine Clearance* 110.55; Estimated Glomerular Filt Rate 123 ml/min
[2022-12-27 18:46] LABS: Blood Urea Nitrogen* 10 mg/dL (5-24); Carbon Dioxide* 28 mmol/L (20-32); Glucose* 99 mg/dL (60-115)
[2022-12-27 18:47] LABS: Calcium* 9.2 mg/dL (8.4-10.6)
[2022-12-27 18:55] LABS: C Reactive Protein* < 0.5 mg/dL (0.5-1.0)
== END 2022-12-27 18:58 | disposition home or self-care (01) ==
PROVIDERS: Emergency Provider Family Medicine; PCP Family Medicine
DX: J40 Bronchitis, not specified as acute or chronic (principal)
CPT/HCPCS: 36415; 71045; 80048; 85025; 85379; 86140; 99283; 99284

== ENCOUNTER 2023-04-25 14:16 | Emergency (ER) | payer MEDICAID, SELFPAY ==
[2023-04-25 14:19] VITALS: BP 130/85; PULSE 91; RESP 18; TEMP 36.9; O2SAT 98; BMI 35.1
[2023-04-25 14:33] LABS: Appearance Urine Slightly Cloudy (Clear); Bilirubin Urine Negative (Negative); Blood Urine Negative (Negative); Color Urine Light yellow (Yellow); Glucose Urine Negative (Negative); Ketones Urine Negative (Negative); Leukocyte Esterase Urine Negative (Negative); Nitrite Urine Negative (Negative); Protein Urine Negative (Negative); Specific Gravity Urine >= 1.030 (1.000-1.030); Urobilinogen Urine 0.2 (0.2-1.0)
--- NOTE | 2023-04-25 14:40 | CRLHL7_ITS ---
For Patients: As a result of the Century Cures Act, medical imaging exams and procedure reports are released immediately into your electronic medical record. You may view this report before your referring provider. If you have questions, please contact your health care provider. INDICATION: Right back and flank pain TECHNIQUE: Ultrasound OB pelvis transvaginal. Real-time san-scale imaging of the pelvis was performed. COMPARISON: None FINDINGS: Clinical Age: 5 weeks 5 days (based on LMP) The uterus is anteverted. Trace fluid collection within the endometrial cavity measuring 3 x 2 x 3 millimeters. Maternal left ovary measures 2.9 x 1.6 x 2.1 centimeters and is unremarkable. Maternal right ovary measures 4.4 x 1.9 x 2.6 centimeters and is unremarkable. IMPRESSION: Trace fluid in the endometrial cavity, possibly an early gestational sac although too small for adequate characterization. This is considered a of unknown location. Differential diagnosis includes normal early and miscarriage. Ectopic not excluded although none is seen on this exam. Correlation with serial quantitative beta HCG and follow-up ultrasound in 7-10 days suggested. Dictated by Hayes Hendricks MD @ 04/25/2023 4:44:58 PM (Electronically Signed)
[2023-04-25 14:41] LABS: Bacteria Urine Few; RBC Urine 0-2 (0-2); Squamous Epithelial Cell Urine Few (None-Few); WBC Urine 0-2 (0-5)
--- NOTE | 2023-04-25 14:41 | ED_ITS ---
HPI - General Adult General Chief complaint: Back Injury/Pain Stated complaint: 6 wk - back pain Time Seen by Provider: 04/25/23 14:21 History of Present Illness HPI narrative: This 27-year-old female comes in reporting right flank pain radiating up to her right shoulder. This pain began yesterday. She states that it eased up last night but has come back this morning. She finds that she needs to shifted different positions occasionally to attempt to get some relief to her discomfort. She presented elsewhere and was sent here to rule out an ectopic . The patient does not have any abdominal pain and denies having any vaginal discharge. She is approximately 6 weeks . She has had her gallbladder removed. She does not report any dysuria symptoms. She has not had any history of kidney stones. Related Data Home Medications Medication Instructions Recorded Confirmed levothyroxine 100 mcg capsule 125 mcg PO QDAY 07/01/22 02/14/23 Allergies Allergy/AdvReac Type Severity Reaction Status Date / Time oxycodone Allergy Mild Rash Verified 02/14/23 10:11 DROSPIRENONE-ETHINYL Allergy Unknown Rash Uncoded 02/14/23 10:11 ESTRADIOL Review of Systems Status of ROS: Reports: 10 or more systems reviewed and unremarkable except as noted in History and below Narrative: Constitutional: No fevers, no weight gain or loss. Eyes: No discharge. No vision changes. HENT: No congestion, no sore throat, no ear pain. Cardiovascular: No chest pain, no palpitations. Respiratory: No shortness of breath, no wheezes, no cough. Gastrointestinal: No abdominal pain, no vomiting, no diarrhea. Right flank pain. Genitourinary: No dysuria, no hematuria. Musculoskeletal: Normal range of motion. Skin: No rashes, no pruritis. Neurological: No dizziness, weakness, sensory change, speech change. Endo/Heme/Allergies: No bruising or bleeding. No polydipsia. Pysch: no suicidality, no anxiety, no insomnia. All other systems reviewed and are negative. [facility] Medical History (Updated 04/25/23 @ 17:12 by Eran Kay MD) Cough ?R05.9 - Cough, unspecified (ICD-10) History of abnormal cervical Pap smear (12/26/18) ?Z87.42 - Personal history of other diseases of the female genital tract (ICD-10) History of gestational diabetes ?Z86.32 - Personal history of gestational diabetes (ICD-10) Posttraumatic stress disorder ?F43.10 - Post-traumatic stress disorder, unspecified (ICD-10) Attention deficit hyperactivity disorder (ADHD) ?F90.9 - Attention-deficit hyperactivity disorder, unspecified type (ICD-10) Social phobia ?F40.10 - Social phobia, unspecified (ICD-10) Oligomenorrhea ?N91.5 - Oligomenorrhea, unspecified (ICD-10) Mild episode of recurrent major depressive disorder ?F33.0 - Major depressive disorder, recurrent, mild (ICD-10) Dyspareunia due to non-psychogenic cause in female ?N94.10 - Unspecified dyspareunia (ICD-10) PTSD (post-traumatic stress disorder) ?F43.10 - Post-traumatic stress disorder, unspecified (ICD-10) ADHD (attention deficit hyperactivity disorder) ?F90.9 - Attention-deficit hyperactivity disorder, unspecified type (ICD-10) Infertility, anovulation ?N97.0 - Female infertility associated with anovulation (ICD-10) PCOS (polycystic ovarian syndrome) ?E28.2 - Polycystic ovarian syndrome (ICD-10) Thyroid disease ?E07.9 - Disorder of thyroid, unspecified (ICD-10) Anxiety ?F41.9 - Anxiety disorder, unspecified (ICD-10) Reflux gastritis ?K29.60 - Other gastritis without bleeding (ICD-10) Depression ?F32.A - Depression, unspecified (ICD-10) Surgical History History of ovarian cystectomy ?Z98.890 - Other specified postprocedural states (ICD-10) ?Z87.42 - Personal history of other diseases of the female genital tract (ICD-10) History of cholecystectomy ?Z90.49 - Acquired absence of other specified parts of digestive tract (ICD- 10) Family History Maternal Grandmother Breast cancer Paternal Grandmother Thyroid disease Father FHx: mental illness Addiction Uncle FHx: mental illness Social History Do you want help finding or keeping work or a job: I do not need or want help Highest level of school completed/degree received: high school graduate Physical activity type: walking How many days of moderate to strenuous exercise, like a brisk walk, did you do in the last 7 days: 5 Smoking Status: Never smoker Do you use any of these nicotine containing products: None Second hand tobacco smoke exposure: No How often do you have a drink containing alcohol: never AUDIT-C Alcohol total score: 0 Non-prescribed substance use: marijuana (any form) Non-prescribed substance use details: medical marijuana card. Are you using contraception or practicing any form of control: No Exam Narrative: Exam Narrative: Constitutional: Well-developed, well-nourished, no acute distress. HEENT: Normocephalic, atraumatic. Neck: Normal range of motion. Nontender. Supple. Heart: Regular. No murmurs. Normal rate. Intact distal pulses. Lungs: Clear to auscultation. No chest discomfort. No wheezes, rhonchi, or rales. Abdomen: Normal bowel sounds. Nontender. No rebound tenderness. Genitalia: Deferred. Back: No midline tenderness. Normal range of motion. Pain when percussing over the right kidney. Extremities: Normal range of motion. No injury. Skin: Intact. No rash. Warm. No erythema or pallor. Neurologic: No altered sensation. No weakness. Alert and oriented. Psychiatric: No suicidality. No anxiety or depression. No insomnia. Nursing notes and vitals signs are reviewed. Const: Vital Signs, click to edit/add: Vital Signs - 24 hr 04/25/23 14:19 Temperature 98.4 F Pulse Rate [Right Pulse Oximeter] 91 Respiratory Rate 18 Blood Pressure [Ri ght Upper Arm] 130/85 Pulse Oximetry 98 Oxygen Delivery Me thod Room Air Course Vital Signs Vital signs: Initial Vital Signs Temperature 98.4 F 04/25/23 14:19 Temperature Source Temporal Artery Scan 04/25/23 14:19 Pulse Rate 91 04/25/23 14:19 Respiratory Rate 18 04/25/23 14:19 Blood Pressure 130/85 04/25/23 14:19 Blood Pressure Mean 100 04/25/23 14:19 Blood Pressure Position Sitting 04/25/23 14:19 Pulse Oximetry 98 04/25/23 14:19 Oxygen Delivery Method Room Air 04/25/23 14:19 Vital Signs Temperature 98.4 F 04/25/23 14:19 Pulse Rate 91 04/25/23 14:19 Respiratory Rate 18 04/25/23 14:19 Blood Pressure 130/85 04/25/23 14:19 Pulse Oximetry 98 04/25/23 14:19 Oxygen Delivery Method Room Air 04/25/23 14:19 Temperature 98.4 F 04/25/23 14:19 Pulse Rate 91 04/25/23 14:19 Respiratory Rate 18 04/25/23 14:19 Blood Pressure 130/85 04/25/23 14:19 Pulse Oximetry 98 04/25/23 14:19 Oxygen Delivery Method Room Air 04/25/23 14:19 Medical Decision Making MDM Narrative Medical decision making narrative: This patient was sent here with concern of possibility of ectopic . She states that she believes she is just under 6 weeks gestation and . She is not reporting any abdominal pain whatsoever and does not have any vaginal discharge. She just has pain in her right flank region. Urinalysis today shows normal findings without any evidence of hematuria or infection. A transvaginal ultrasound shows what looks to be and intrauterine but the gestation is so early that it is not well determined at this time. It seems that the patient's symptoms are more musculoskeletal in nature. Her abdominal exam is very unlikely to be evidence of a serious process such as an ectopic . The patient is reassured with this and plans to use Tylenol as needed and directed for symptomatic relief. I did describe signs and symptoms that would indicate a need for return and re-evaluation. Lab Data Labs: Lab Results 04/25/23 Range/Units 14:22 Urine Color Light yellow (Yellow) Urine Appearance Slightly Cloudy A (Clear) Urine pH 7.0 (5.0-8.5) Ur Specific [place] >= 1.030 (1.000-1.030) Urine Protein Negative (Negative) Urine Glucose (UA) Negative (Negative) Urine Ketones Negative (Negative) Urine Blood Negative (Negative) Urine Nitrite Negative (Negative) Urine Bilirubin Negative (Negative) Urine Urobilinogen 0.2 (0.2-1.0) Ur Leukocyte Esterase Negative (Negative) Urine RBC 0-2 (0-2) Urine WBC 0-2 (0-5) Ur Squamous Epith Cells Few (None-Few) Urine Bacteria Few A (None) Imaging Data US - abdomen: Radiologist's impression: Trace fluid in the endometrial cavity, possibly an early gestational sac although too small for adequate characterization. This is considered a of unknown location. Differential diagnosis includes normal early and miscarriage. Ectopic not excluded although none is seen on this exam. Correlation with serial quantitative beta HCG and follow-up ultrasound in 7-10 days suggested. Discharge Plan Discharge Clinical Impression: Flank pain Patient Disposition: Home, Self-Care Condition: Stable Additional Instructions: Use idem-exg-vzhmxii medicines as needed and directed. Follow up with MD or return if worsening. Prescriptions: No Action levothyroxine 100 mcg capsule 125 mcg PO QDAY Follow Up/Referrals: Billie Guadarrama DO [Primary Care Provider] - Stand Alone Forms: ki work Info Instructions
== END 2023-04-25 17:28 | disposition home or self-care (01) ==
PROVIDERS: Emergency Provider Emergency Medicine Emergency Medical Services; PCP Family Medicine
DX: R10.9 Unspecified abdominal pain (principal); Z3A.01 Less than 8 weeks gestation of pregnancy
CPT/HCPCS: 76817; 81001; 87086; 99283; 99284

== ENCOUNTER 2023-05-12 09:05 | Outpatient (CLI) | payer MEDICAID, SELFPAY ==
[2023-05-12 14:08] LABS: Chlamydia DNA Amplified* NOT DETECTED (No Detected); GC DNA Amplified* NOT DETECTED (No Detected)
== END 2023-05-12 09:06 | disposition home or self-care (01) ==
PROVIDERS: PCP Family Medicine; Visit Provider Physician Assistant
DX: N89.8 Other specified noninflammatory disorders of vagina (principal); Z86.32 Personal history of gestational diabetes
CPT/HCPCS: 76817; 84443; 86592; 86703; 86762; 86787; 86803; 86850; 86900; 86901; 87086; 87340; 87491; 87591

== ENCOUNTER 2023-06-09 08:37 | Outpatient (CLI) | payer MEDICAID, SELFPAY ==
--- OUTSIDE RECORDS SUMMARY | 2023-06-09 08:39 | XMS_ITS | Continuity of Care Document ---
Author Name Unknown Organization [facility] Address [address] [facility] [place] [address] Phone Care Team Providers Care Managed Care Coordinator Name Role Phone Will MD MORENO, Ari Unavailable Unavailabl e Allergies, Adverse Reactions, Alerts Substance Reaction Status Criticality No Known Allergies Active No Inform ation Medications Medication Instructions Dosage Effective Dates (start - stop) Status Comments levothyroxine 125 mcg capsule take 1 capsule by oral route every day 125 MCG - Active Procedures Procedure Date Disabilty Reports Forms OFFICE/OUTPATIENT VISIT, EST OFFICE VISIT, EST TELEMEDICINE Drug Urine Toxology With Chromatography Drug test def 1-7 classes OFFICE/OUTPATIENT VISIT, NEW Advance Directives Directive Yes / No Effective Date File Name No Information Encounters Encounter Description Practice Location Reason(s) For Visit Diagnoses Date Provider Providers Copied on Encounter [facility], [address] [place] [address], [id number] , [place] tel:[phone] [facility] No Information 3 Dong Chapman. [address] [facility] [address] [place], [place], [id number] , [place]. tel:[phone] [facility], [address] [facility] [place], [id number] , [place] tel:[phone] [facility] No Information 3 Darnell Hercules. [address] [facility] [place], [id number] , [place]. tel:[phone] Referring Provider: Billie Guadarrama [facility] [address] [place], [address]. [phone] OFFICE/OUTPAT IENT VISIT, EST [facility], [address] [place], [id number] , [place] tel: [phone] [facility] [place] Widespread pain (chief complaint) Chronic pain syndromeCervicalgi aLow back pain, unspecifiedFibromy algia 3 Van Overbeke Delisa. [address] [facility] [place], [place], [id number] , [place]. tel: [phone] [facility]: [facility] [address] [place], [address]. tel:[phone] OFFICE VISIT, EST TELEMEDICINE [facility], [address] [facility] [address] [place], [place], [id number] , [place] tel:[phone] [facility] Widespread pain (chief complaint) Chronic pain syndromeCervicalgi aLow back pain, unspecifiedFibromy algia 2 Van Overbeke Delisa. [address] [facility] [place] [facility] [place], [id number] , [place]. tel: [phone] Referring Provider: Billie Guadarrama [facility] [address] [place], [address]. tel:[phone] [facility], [address] [facility] [place], [id number] , [place] tel: [phone] [facility] [place] No Information 2 Van Overbeke Delisa. [address] [facility], [place], [id number] , [place]. tel:[phone] Referring Provider: Billie Guadarrama [facility] [address] [place], [address]. tel:[phone] OFFICE/OUTPAT IENT VISIT, [facility], [address] [facility] [address], [place], [place], [id number] , [place] tel:[phone] [facility] [place] Widespread pain (chief complaint) Chronic pain syndromeFibromyalg iaLow back pain, unspecifiedCervica lgiaEncounter for therapeutic drug level monitoring 2 Darnell Hercules. [address] [facility] [place], [place], [id number] , [place]. tel:[phone] Referring Provider: Dania Cartagena [facility] [address], [place], [address]. tel:[phone] Family History Family Member Type Diagnosis Age At Onset Father Problem Low back problems Mother Problem Low back problems Payers Payer name Insurance type Covered green party ID Authoriza tion(s) No Information Social History Type Description Quantity Date Captured Comments Sex Female Smoking Status No Information Chief Complaint And Reason For Visit No Information Reason For Referral Reason For Referral No Information Plan Of Treatment Date Type Action Status Goal PHQ-9. Due on du e Goal Weight. Due on d ue Goal Unhealthy drug use screening . Due on due Goal Tobacco Use. Due on 023 due Goal Update Social History. Due o n due Goal Review Allergy List. Due on due Goal Hepatitis C screening. Due o n due Goal Medication Reconciliation. D ue on due Goal Height. Due on d ue Goal Tobacco Use. Due on 022 due Goal Medication Reconciliation. D ue on due Goal Weight. Due on d ue Goal PHQ-9. Due on du e Goal Review Allergy List. Due on due Goal Unhealthy drug use screening . Due on due Goal Height. Due on d ue Goal Update Social History. Due o n due Goal Hepatitis C screening. Due o n due Goal Weight. Due on d ue Goal Medication Reconciliation. D ue on due Goal Review Allergy List. Due on due Goal Tobacco Use. Due on due Goal Update Social History. Due o n due Goal Height. Due on d ue Goal Unhealthy drug use screening . Due on due Goal Hepatitis C screening. Due o n due Goal PHQ-9. Due on du e Goal Weight. Due on d ue Goal Medication Reconciliation. D ue on due Goal Review Allergy List. Due on due Goal Tobacco Use. Due on due Goal Update Social History. Due o n due Goal Height. Due on d ue Goal Unhealthy drug use screening . Due on due Goal Hepatitis C screening. Due o n due Goal PHQ-9. Due on du e History Of Present Illness Encounter Date Complaint History Of Prese nt Illness Widespread pain Location of the pain is lower back and buttocks and bilateral legs. The client describes it as sharp, achy, burning and tingling. Symptom is aggravated by bending, walking upstairs, walking downstairs, sitting, standing, walking, lifting, movement and twisting. Relieving factors include stretching and rest. Pertinent negatives include diarrhea, fatigue, fever and incontinence (urinary). Comments: Chelsy aguirre presents for a follow up. Patient c/o widespread pain r/t fibromyalgia. Scheduled consult with [facility] next month.Legs numb and tingling, pain. most bothersome. Some days feels burning. Goes into back. Stretches seem to help. Trying to walk more. Cannabis helps depression and anxiety. Needs personal disability ppw completed today and inquires about additional medication options.No other concerns today. Widespread pain Severity level i s 8. Duration: chronic. Location of the pain is legs and back. The problem is stable. Pertinent negatives include diarrhea, fatigue, fever and incontinence (urinary). Comments: Chelsy aguirre presents for a follow up after her initial consult. Patient c/o widespread pain r/t fibromyalgia. States that she has not heard from [facility] and plans to contact them.She interested in trialing medical cannabis. No other concerns today. Widespread pain Severity level i s 10. Duration: chronic. Location of the pain is neck, back and legs. The client describes it as sharp, burning, numbness, tingling and stabbing. It occurs persistently. Symptom is aggravated by bending, walking upstairs, walking downstairs, running, sitting, standing, walking, housework, movement, twisting and lifting. Relieving factors include rest. Pertinent negatives include diarrhea, dyspnea, fever and incontinence (urinary). Comments: Chelsy aguirre is a 27 y/o female here for initial consult for widespread pain r/t fibromyalgia referred by Dr. Guadarrama through [facility]. Patient describes burning, numbness, tingling, and sharp stabbing pains in BLE, most bothersome in right foot. Low back and neck pain is intermittent sharp and stabbing. Pain averages 10/10.Has tried physical therapy without lasting relief. Has not tried injections. Patient states that she is sensitive to many medications. Has had headache SEs with Gabapentin, Lyrica, and Amitriptyline. The patient is not currently managed on any pain medications.Patient is interested in medical cannabis and other pain management options through [facility]. No other concerns today. Functional Status Date Functional Assessmen t No Information Instructions Date Instruction Additional Infor mation No Information Assessments Type Assessment Date No Information Patient Care Teams Name Effective Dates (start - stop) Status Members No Information
--- OUTSIDE RECORDS SUMMARY | 2023-06-09 08:39 | XMS_ITS | Continuity of Care Document ---
Author Name Unknown Organization [facility] Address [address] [facility] [address] [place] [address] Phone Care Team Providers Care Contracts Specialist Name Role Phone Juan Rodriguez DO Unavailable Unavailable Allergies, Adverse Reactions, Alerts Substance Reaction Status Criticality OXYCODONE HCL Active No Information acetaminophen Active No Information Medications Medication Instructions Dosage Effective Dates (start - stop) Status Comments levothyroxine 137 mcg capsule take 1 capsule by oral route every day 137 MCG - Active Procedures Procedure Date Office/Outpatient Visit, New Routine Venipuncture Specimen Handling Rbc Sed Rate, Automated Assay Of Serum Albumin Assay Of Ck (Cpk) Assay Of Creatinine Assay Alkaline Phosphatase Transferase (Ast) (Sgot) Assay Of Blood/Uric Acid CReactive Protein Antinuclear Antibodies CCP Antibody Lyme Disease Antibody Rheumatoid Factor, IGM Rheumatoid Factor, IGG, IGA Assay Of Calcium Complete Cbc WAuto Diff Wbc Results Test Name Date and Time Measure Units Reference Range Abnormal Flag Status Comments Panel Description: CBC 5 part diff Final Neutrophils# 2022 11:19:0 0 5.92 K/uL 2.00-7.50 Final Neutrophil % 2022 11:19:0 0 71.10 % 0.00-99.00 Final Eosinophil # 2022 11:19:0 0 0.12 K/uL 0.00-0.50 Final Eosinophil % 2022 11:19:0 0 1.40 % 0.00-7.00 Final Basophil # 2022 11:19:0 0 0.07 K/uL 0.00-0.20 Final Basophil % 2022 11:19:0 0 0.80 % 0.00-99.00 Final WBC 2022 11:19:0 0 8.3 K/uL 4.0-10.0 Final RBC 2022 11:19:0 0 4.94 M/uL 3.80-5.80 Final Hemoglobin 2022 11:19:0 0 14.9 g/dL 11.5-16.0 Final Hematocrit 2022 11:19:0 0 43.5 % 37.0-47.0 Final MCV 2022 11:19:0 0 88 fL 80-100 Final MCH 2022 11:19:0 0 30.1 pg 27.0-32.0 Final MCHC 2022 11:19:0 0 34.2 g/dL 32.0-36.0 Final RDW 2022 11:19:0 0 12.1 % 11.0-16.0 Final Platelet Count 2022 11:19:0 0 199 K/uL 150-500 Final MPV 2022 11:19:0 0 8.7 fL 6.0-11.0 Final Lymphocyte% 2022 11:19:0 0 22.40 % 25.00-50.0 0 L Final Lymphocyte # 2022 11:19:0 0 1.9 K/uL 1.0-4.0 Final Monocytes # 2022 11:19:0 0 0.36 K/uL 0.20-1.00 Final Monocytes % 2022 11:19:0 0 4.30 % 2.00-10.00 Final Panel Description: ESR Final ESR 2022 11:25:0 0 5 mm/hr 0-20 Final Panel Description: Calcium Final Calcium 2022 11:58:0 0 10.1 mg/dL 8.6-10.3 Final Panel Description: IM Final AST 2022 12:07:0 0 20 U/L 5-34 Final Creatinine 2022 12:07:0 0 0.730 mg/dL 0.500-1.30 0 Final ALB 2022 12:07:0 0 4.6 g/dL 3.5-5.3 Final Uric Acid 2022 12:07:0 0 6.1 mg/dL 2.6-6.0 H Final Alk Phos 2022 12:07:0 0 97 U/L 30-103 Final CK 2022 12:07:0 0 83 U/L 26-140 Final GFR 2022 12:07:0 0 103.2 mL/min /1.73 m2 Final Panel Description: CRP Final CRP 2022 12:07:0 0 0.17 MG/DL 0.00-0.60 Final Panel Description: PTH, INTACT WITHOUT CALCIUM Final PARATHYROID HORMONE, INTACT 2022 13:50:0 0 46 pg/mL 16-77 N Final Interpretive G uide Intact PTH Calcium -------Normal Parathyroid Normal NormalHypoparathyroidism Low or Low Normal LowHyperparathyroidism Primary Normal or High High Secondary High Normal or Low Tertiary High HighNon-Parathyroid Hypercalcemia Low or Low Normal High Panel Description: HEPATITIS C AB W/REFL TO HCV RNA, QN, PCR Final HEPATITIS C ANTIBODY 2022 14:05:0 0 NON-REAC TIVE NON-REACTI VE N Final INDEX 2022 14:05:0 0 0.11 <1.00 N Final HCV antibody w as non-reactive. There is no laboratory evidence of HCV infection. In most cases, no further action is required. However,if recent HCV exposure is suspected, a test for HCV RNA(test code 00822) is suggested. For additional information please refer tohttp://education.SepSensor/faq/FAQ22v 1(This link is being provided for informational/educational purposes only.) Panel Description: TSH Final TSH 2022 14:05:0 0 0.13 mIU/L L Final Reference Rang e > or = 20 Years 0.40-4.50 Ranges First trimester 0.26-2.66 Second trimester 0.55-2.73 Third trimester 0.43-2.91 Panel Description: Lyme Disease Final Lyme disease 2022 11:30:0 0 0.2 U/mL 0.0-1.1 Final Normal 0 - 0.9 0 Units/mL Equivocal 0.91 - 1.09 Units/mLPositive >1.09 Units/mL Panel Description: CCP Final cCP 2022 14:13:0 0 0.0 U/mL 0.0-5.0 Final Panel Description: NAS Screen Final NAS SCR A 2022 14:13:0 0 1.0 U/mL 0.0-10.0 Final NAS SCR B 2022 14:13:0 0 6.0 U/mL 0.0-10.0 N Final Panel Description: RF/3 Final RF IgM 2022 15:09:0 0 1.0 IU/mL 0.0-25.0 Final RF IgA 2022 15:09:0 0 4.0 Units/ mL 0.0-35.0 Final RF IgG 2022 15:09:0 0 6.0 Units/ mL 0.0-20.0 Final Advance Directives Directive Yes / No Effective Date File Name No Information Encounters Encounter Description Practice Location Reason(s) For Visit Diagnoses Date Provider Providers Copied on Encounter Office/Outpa tient Visit, [facility] , [address], [place], [address], [place] tel:[phone] [facility] , Musculoskele desiree pain (chief complaint) Myalgia, unspecified sitePain in unspecified lower legTingling skinOther low back painDry eye syndrome of bilateral lacrimal glandsDiplop iaGoiter 3 Michael Martinez. [facility] [address], [place], [address], [place]. tel:[phone] Attending Physician: Billie Guadarrama, [facility] [address], [place], [address]. tel:[phone] ring Provider: Juan Woods, [facility] [address], [place], [address]. tel:[phone] Family History Family Member Type Diagnosis Age At Onset No Information Payers Payer name Insurance type Covered green party ID Authoriza tijoseph(s) Pepe BRENNAN [id number] Social History Type Description Quantity Date Captured Comments Alcohol Use Details No Caffeine Use Details 2 cups per day Tobacco Use Status Current non-smoker Smoking Status Never smoker Non-Smoking Tobacco Use Details : No Details Available : No Details Available Sex Female Vital Signs Date / Time: Height Weight BMI Pulse Rate Blood Pressure Temperature Respiratory Rate Body Surface Area Head Circumference Head Circ. Percentile Wt./Vick. Percentile BMI percentile Pulse Ox Inhaled Ox 9:33 AM 65.00 in 94.166 kg (207.60 lbs) 34.5 5 kg/m eter (2) 100/70 mm[Hg] 98.20 F Chief Complaint And Reason For Visit From encounter dated '03/09/2023 09:30'. Musculoskeletal pain (chief complaint) Reason For Referral Reason For Referral No Information History Of Present Illness Encounter Date Complaint History Of Prese nt Illness Musculoskeletal pain Functional Status Date Functional Assessmen t No Information Instructions Date Instruction Additional Infor mation No Information Assessments Type Assessment Date assessment Myalgia, unspecified site assessment Pain in unspecified lower leg Ma y- assessment Tingling skin assessment Other low back pain assessment Dry eye syndrome of bilateral la crimal glands assessment Diplopia assessment Goiter Mental Status Date Cognitive Assessment Orientation - [place]ila[place] ed to time, place, person, situation. Patient Care Teams Name Effective Dates (start - stop) Status Members No Information
== END 2023-06-09 08:38 | disposition home or self-care (01) ==
LOC: NFLDREF 08:37
PROVIDERS: PCP Family Medicine; Visit Provider Physician Assistant
DX: Z34.91 Encounter for supervision of normal pregnancy, unspecified, first trimester (principal); Z3A.11 11 weeks gestation of pregnancy; Z86.39 Personal history of other endocrine, nutritional and metabolic disease
CPT/HCPCS: 84439; 84443

== ENCOUNTER 2023-08-09 12:55 | Outpatient (CLI) | payer MEDICAID, SELFPAY ==
--- OUTSIDE RECORDS SUMMARY | 2023-08-09 12:58 | XMS_ITS | Patient Health Record ---
Author Name Unknown Organization [facility] Address [address] [place], [place] [id number] Care Team Providers Care Pain Management Nurse Name Role Phone Job Ramirez Primary Care Provider Unavailab le ALLERGIES Allergen (clinical drug ingredient) Drug/Non Drug Allergy documented on EMR Reaction Allergy Type Onset Date Status acetaminophen / oxycodone Percocet Unknown Drug Allergy Active REASON FOR REFERRAL No Information MEDICATIONS Medication SIG (Take, Route, Frequency, Duration) Notes Start Date End Date Status metFORMIN HCl 500 MG Orally Active Phentermine HCl 37.5 MG 1 capsule Orally Once a day Not-Taking Sprintec 28 0.25-35 MG-MCG 1 tablet Oral ly Once a day for 28 day(s) 08/27/2019 Active Vitamin D 1000 UNIT 1 tablet Orally Once a day for 30 day(s) Active Letrozole 2.5 MG 3 Orally Day 3-7 of cycle for 5 days 08/27/2019 Active Levothyroxine Sodium 175 MCG 1 tablet on an empty stomach in the morning Orally Once a day Active Sprintec 28 0.25-35 MG-MCG 1 tablet Oral ly Once a day for 28 day(s) 07/18/2019 Active medroxyPROGESTERone Acetate 10 MG 1 tablet with food Orally Once a day for 10 days 07/05/2019 Active Spironolactone 100 MG 1 tablet Orally Once a day for 30 day(s) Active Fluconazole 150 MG 1 tablet Orally for 10 day(s) Active SOCIAL HISTORY Tobacco Use: Social History Observation Description Date Details (start date - stop date) Never Smoker NA - NA Sex Assigned At : Social History Observation Description Sex Assigned At Unknown Tobacco Use/Smoking Question Answer Notes Are you a nonsmoker Sexual History Question Answer Notes Had sex in the past 12 months (vaginal, oral, or anal)? Yes with Men only Have you ever had a Sexually transmitted disease ? No PROBLEMS Problem Type ICD Code Onset Dates Problem Status W/U Status Risk SNOMED Code Notes Problem Other specified hypothyroidism (E03.8) Active confirmed 684514036 Problem Autoimmune thyroiditis (E06.3) Active confirmed 51771118 Problem Morbid (severe) obesity due to excess calories (E66.01) Active confirmed 30670417750791 Problem Secondary amenorrhea (N91.1) Active confirmed 388393877 Problem PCOS (polycystic ovarian syndrome) (E28.2) Active confirmed 760813882 Problem Infertility associated with anovulation (N97.0) Active confirmed 853958463 Problem Body mass index (BMI) of 35.0-35.9 in adult (Z68.35) Active confirmed 319131160 PLAN OF TREATMENT No Information Insurance Providers Payer Name Payer Address Payer Phone Subscriber Number Group Number Insured Name Patient Relationship to Insured Coverage Start Date Coverage End Date [facility] [address] [place] [address] [id number] [facility] [id number] TAYLOR RAHMAN Self - patient is the insured [place] Care Medicaid (Ins. Bill) [address] [address] [place], [place] [id number] TAYLOR RAHMAN Self - patient is the insured MEDICAL (GENERAL) HISTORY Medical History History ICD Code Depression\Anxiety Thyroid disease Surgical History Surgery Date(Month/Year) Lymph node 2014 Polyp removal 2019 Tonsilectomy 2014 Gallbladder 2016
--- OUTSIDE RECORDS SUMMARY | 2023-08-09 12:58 | XMS_ITS | Continuity of Care Document ---
Author Name Unknown Organization [facility] Address [address] [place] [address] [place] [address] Phone Care Team Providers Care Scanning Clerk Name Role Phone Will MD MORENO, Ari [...] Diagnoses Date Provider Providers Copied on Encounter [facility], [address] [place] [address], [id number] , [place] tel:[phone] [facility] No Information 3 Dong Chapman. [address] [facility] [address] [place], [place], [id number] , [place]. tel:[phone] [facility], [address] [facility] [place], [place], [id number] , [place] tel:[phone] [facility] No Information 3 Darnell Hercules. [address] [facility] [place], [place], [id number] , [place]. tel:[phone] Referring Provider: Billie Guadarrama [facility] [address] [place], [address]. [phone] OFFICE/OUTPAT IENT VISIT, EST [facility], [address] [place], [id number] , [place] tel: [phone] [facility] [place] Widespread pain (chief complaint) Chronic pain syndromeCervicalgi aLow back pain, unspecifiedFibromy algia 3 Van Overbeke Delisa. [address] [facility] [place], [place], [id number] , [place]. tel: [phone] Ref[facility]: [facility] [address] [place], [address]. tel:[phone] OFFICE VISIT, EST TELEMEDICINE [facility], [address] [facility] [address] [place], [place], [id number] , [place] tel:[phone] [facility] Widespread pain (chief complaint) Chronic pain syndromeCervicalgi aLow back pain, unspecifiedFibromy algia 2 Van Overbeke Delisa. [address] [facility] [facility] [place], [id number] , [place]. tel: [phone] Referring Provider: Billie Guadarrama [facility] [address] [place], [address]. tel:[phone] [facility], [address] [facility] [place], [id number] , [place] tel: [phone] [facility] [place] No Information 2 Van Overbeke Delisa. [address] [facility], [place], [id number] , [place]. tel:[phone] Referring Provider: Billie Guadarrama [facility] [address] [place], [address]. tel:[phone] OFFICE/OUTPAT IENT VISIT, [facility], [address] [facility] [address], [place], [place], [id number] , [place] tel:[phone] [facility] [place] Widespread pain (chief complaint) Chronic pain syndromeFibromyalg iaLow back pain, unspecifiedCervica lgiaEncounter for therapeutic drug level monitoring 2 Darnell Hercules. [address] [facility] [place], [place], [id number] , [place]. tel:[phone] Referring Provider: Dania Cartagena [facility] [address], [place], [address]. tel:[phone] Family History Family Member Type Diagnosis Age At Onset Father Problem Low back problems Mother Problem Low back problems Payers Payer name Insurance type Covered democrat ID Authoriza tion(s) No Information Social History [...] Goal Height. Due on d ue Goal Hepatitis C screening. Due o n due Goal Update Social History. Due o n due Goal Height. Due on d ue Goal Unhealthy drug use screening . Due on due Goal Review Allergy List. Due on due Goal PHQ-9. Due on du e Goal Weight. Due on d ue Goal Medication Reconciliation. D ue on due Goal Tobacco Use. Due on due Goal Weight. Due on d [...] Social History. Due o n due Goal PHQ-9. Due on du e Goal Hepatitis C screening. Due o n due Goal Unhealthy drug use screening . Due on due Goal Height. Due on d ue History Of Present Illness Encounter Date Complaint [...] about additional medication options.No other concerns today. Comments: Chelsy aguirre presents for a follow [...] include diarrhea, fatigue, fever and incontinence (urinary). Widespread pain Severity level i s 10. [...] r/t fibromyalgia referred by Dr. Guadarrama through [facility]. Patient describes burning, numbness, tingling, and [...]
--- OUTSIDE RECORDS SUMMARY | 2023-08-09 12:58 | XMS_ITS | Continuity of Care Document ---
Author Name Unknown Organization [facility] Address [address] [place] [address] Phone Care Team Providers Care Creasing Machine Operator Name Role Phone Juan Rodriguez DO Unavailable [...] suspected, a test for HCV RNA(test code 24078) is suggested. For additional information please refer tohttp://education.Doodle/faq/FAQ22v 1(This link is being provided for informational/educational [...] [facility] , [address], [place], [address], [place] tel:[phone] [facility] , Musculoskele desiree pain (chief complaint) Myalgia, unspecified sitePain in unspecified lower legTingling skinOther low back painDry eye syndrome of bilateral lacrimal glandsDiplop iaGoiter 3 Michael Martinez. [facility] [address], [place], [address], [place]. tel:[phone] Attending Physician: Billie Guadarrama, [facility] [address], [place], [address]. tel:[phone] ring Provider: Juan Woods, [facility] [address], [place], [address]. tel:[phone] Family History Family Member Type Diagnosis Age At Onset No Information Payers Payer name Insurance type Covered democrat ID Authoriza tijoseph(s) Pepe BRENNAN [id number] Social History Type Description Quantity Date Captured [...] Mental Status Date Cognitive Assessment Orientation - [place] ed to time, place, person, situation. Patient Care Teams Name Effective Dates (start - stop) Status Members No Information
--- NOTE | 2023-08-09 13:00 | CRLHL7_ITS ---
For Patients: As a result of the Century Cures Act, medical imaging exams and procedure reports are released immediately into your electronic medical record. You may view this report before your referring provider. If you have questions, please contact your health care provider. INDICATION: Shortened cervix COMPARISON: 05/12/2023 TECHNIQUE: Real time san scale imaging of the fetus was performed. FINDINGS: Transvaginal imaging of the cervix performed with fundal pressure. The cervix is closed and measures 2.7 cm in length. No internal cervical os funneling. Amniotic fluid volume is normal with single deepest pocket 5.1 cm. The position is vertex and the placental position is posterior. heart rate 155 beats per minute. IMPRESSION: Closed cervix measuring 2.7 cm with transvaginal imaging and fundal pressure. Echogenic debris within the lower uterine segment adjacent to the internal cervical os, indeterminate. This may represent inflammatory change or blood products. Follow-up recommended. Dictated by Rashad Yin MD @ 08/10/2023 8:51:38 AM (Electronically Signed)
== END 2023-08-09 12:56 | disposition home or self-care (01) ==
LOC: US 12:56
PROVIDERS: PCP Family Medicine; Visit Provider Obstetrics & Gynecology
DX: N88.3 Incompetence of cervix uteri (principal)
CPT/HCPCS: 76816; 76817

== ENCOUNTER 2023-08-16 07:54 | Outpatient (CLI) | payer MEDICAID, SELFPAY ==
--- OUTSIDE RECORDS SUMMARY | 2023-08-16 07:57 | XMS_ITS | Patient Health Record ---
Author Name Unknown Organization [facility] Address [address] [place], [place] [id number] Care Team Providers Care Yard Switcher Name Role Phone Job Ramirez Primary Care [...] Problem Other specified hypothyroidism (E03.8) Active confirmed 680768673 Problem Autoimmune thyroiditis (E06.3) Active confirmed 81386606 Problem Morbid (severe) obesity due to excess calories (E66.01) Active confirmed 23290877195371 Problem Secondary amenorrhea (N91.1) Active confirmed 733300607 Problem PCOS (polycystic ovarian syndrome) (E28.2) Active confirmed 315693960 Problem Infertility associated with anovulation (N97.0) Active confirmed 496280329 Problem Body mass index (BMI) of 35.0-35.9 in adult (Z68.35) Active confirmed 243389308 PLAN OF TREATMENT No Information Insurance Providers Payer Name Payer Address Payer Phone Subscriber Number Group Number Insured Name Patient Relationship to Insured Coverage Start Date Coverage End Date [facility] [address] [place] [address] [id number] [id number] TAYLOR RAHMAN Self - patient is the insured [place] Care Medicaid (Ins. Bill) [address] [address] [place], [place] [id number] TAYLOR RAHMAN Self - patient is the insured MEDICAL (GENERAL) HISTORY Medical History History ICD Code Depression\Anxiety Thyroid disease Surgical History Surgery Date(Month/Year) Lymph node 2014 Polyp removal 2019 Tonsilectomy 2014 Gallbladder 2016
--- OUTSIDE RECORDS SUMMARY | 2023-08-16 07:58 | XMS_ITS | Continuity of Care Document ---
Author Name Unknown Organization [facility] Address [address] [place] [address] Phone Care Team Providers Care Nursing Clinical Director Name Role Phone Juan Rodriguez DO Unavailable [...] suspected, a test for HCV RNA(test code 76166) is suggested. For additional information please refer tohttp://education.Pidgon/faq/FAQ22v 1(This link is being provided for informational/educational [...] [facility] , [address], [place], [address], [place] tel:[phone] [facility] , Musculoskele desiree pain (chief complaint) Myalgia, unspecified sitePain in unspecified lower legTingling skinOther low back painDry eye syndrome of bilateral lacrimal glandsDiplop iaGoiter 3 Michael Martinez. [facility] [address], [place], [address], [place]. tel:[phone] Attending Physician: Billie Guadarrama, [facility] [address], [place], [address]. tel:[phone] ring Provider: Juan Woods, [facility] [address], [place], [address]. tel:[phone] Family History Family Member Type Diagnosis Age At Onset No Information Payers Payer name Insurance type Covered republican ID Authoriza tijoseph(s) Pepe BRENNAN [id number] Social History Type Description Quantity Date Captured [...] Mental Status Date Cognitive Assessment Orientation - [place] ed to time, place, person, situation. Patient Care Teams Name Effective Dates (start - stop) Status Members No Information
--- NOTE | 2023-08-16 08:15 | CRLHL7_ITS ---
For Patients: As a result of the Century Cures Act, medical imaging exams and procedure reports are released immediately into your electronic medical record. You may view this report before your referring provider. If you have questions, please contact your health care provider. INDICATION: WEEKLY FOLLOW UP SHORTEN CX COMPARISON: 08/09/2023 TECHNIQUE: Real-time san-scale imaging of the pelvis was performed. FINDINGS: Transvaginal cervical measurement performed. The cervix measures 2.7 cm. No funneling. Normal amniotic fluid with single deepest pocket 3.7 cm. Vertex position. Posterior placenta. IMPRESSION: Cervix is closed and measures 2.7 cm. Dictated by Rashad Yin MD @ 08/16/2023 9:45:38 AM (Electronically Signed)
== END 2023-08-16 07:55 | disposition home or self-care (01) ==
LOC: US 07:55
PROVIDERS: PCP Family Medicine; Visit Provider Obstetrics & Gynecology
DX: N88.3 Incompetence of cervix uteri (principal)
CPT/HCPCS: 76816; 76817

== ENCOUNTER 2023-08-23 09:04 | Outpatient (CLI) | payer MEDICAID, SELFPAY ==
--- NOTE | 2023-08-23 09:15 | CRLHL7_ITS ---
For Patients: As a result of the Century Cures Act, medical imaging exams and procedure reports are released immediately into your electronic medical record. You may view this report before your referring provider. If you have questions, please contact your health care provider. INDICATION: SHORTENED CERVIX COMPARISON: 08/16/2023 TECHNIQUE: Real-time san-scale imaging of the pelvis was performed. FINDINGS: Transvaginal measurement of the cervix is 2.7 cm. The cervix is closed. No funneling. Normal amniotic fluid with single deepest pocket 3.0 cm. Vertex position. heart rate 154 beats per minute. Placenta is posterior with the placental edge located 5.0 cm from the internal cervical os. IMPRESSION: Closed cervix measuring 2.7 cm. Dictated by Rashad Yin MD @ 08/23/2023 10:22:24 AM (Electronically Signed)
== END 2023-08-23 09:05 | disposition home or self-care (01) ==
LOC: US 09:05
PROVIDERS: PCP Family Medicine; Visit Provider Obstetrics & Gynecology
DX: N88.3 Incompetence of cervix uteri (principal)
CPT/HCPCS: 76817

== ENCOUNTER 2023-08-30 12:07 | Outpatient (CLI) | payer MEDICAID, SELFPAY ==
--- OUTSIDE RECORDS SUMMARY | 2023-08-30 12:09 | XMS_ITS | Patient Health Record ---
Author Name Unknown Organization [facility] Address [address] [place], [place] [id number] Care Team Providers Care Char Filter Operator Name Role Phone Job Ramirez Primary Care [...] Problem Other specified hypothyroidism (E03.8) Active confirmed 617066148 Problem Autoimmune thyroiditis (E06.3) Active confirmed 49233975 Problem Morbid (severe) obesity due to excess calories (E66.01) Active confirmed 14255192647986 Problem Secondary amenorrhea (N91.1) Active confirmed 161299610 Problem PCOS (polycystic ovarian syndrome) (E28.2) Active confirmed 659563386 Problem Infertility associated with anovulation (N97.0) Active confirmed 040384946 Problem Body mass index (BMI) of 35.0-35.9 in adult (Z68.35) Active confirmed 991736230 PLAN OF TREATMENT No Information Insurance Providers Payer Name Payer Address Payer Phone Subscriber Number Group Number Insured Name Patient Relationship to Insured Coverage Start Date Coverage End Date [facility] [address] [place] [address] [id number] [id number] TAYLOR RAHMAN Self - patient is the insured [place] Care Medicaid (Ins. Bill) [address] [address] [place], [place] [id number] TAYLOR RAHMAN Self - patient is the insured MEDICAL (GENERAL) HISTORY Medical History History ICD Code Depression\Anxiety Thyroid disease Surgical History Surgery Date(Month/Year) Lymph node 2014 Polyp removal 2019 Tonsilectomy 2014 Gallbladder 2016
--- OUTSIDE RECORDS SUMMARY | 2023-08-30 12:10 | XMS_ITS | Continuity of Care Document ---
Author Name Unknown Organization [facility] Address [address] [place] [address] Phone Care Team Providers Care Inspector Cold Working Name Role Phone Juan Rodriguez DO Unavailable [...] suspected, a test for HCV RNA(test code 37821) is suggested. For additional information please refer tohttp://education.Easy Home Solutions/faq/FAQ22v 1(This link is being provided for informational/educational [...] [facility] , [address], [place], [address], [place] tel:[phone] [facility] , Musculoskele desiree pain (chief complaint) Myalgia, unspecified sitePain in unspecified lower legTingling skinOther low back painDry eye syndrome of bilateral lacrimal glandsDiplop iaGoiter 3 Michael Martinez. [facility] [address], [place], [address], [place]. tel:[phone] Attending Physician: Billie Guadarrama, [facility] [address], [place], [address]. tel:[phone] ring Provider: Juan Woods, [facility] [address], [place], [address]. tel:[phone] Family History Family Member Type Diagnosis Age At Onset No Information Payers Payer name Insurance type Covered green party ID Authoriza tijoseph(s) Pepe BRENNAN [id number] Social History Type Description Quantity Date Captured [...] Mental Status Date Cognitive Assessment Orientation - [place] ed to time, place, person, situation. Patient Care Teams Name Effective Dates (start - stop) Status Members No Information
--- NOTE | 2023-08-30 12:15 | CRLHL7_ITS ---
For Patients: As a result of the Century Cures Act, medical imaging exams and procedure reports are released immediately into your electronic medical record. You may view this report before your referring provider. If you have questions, please contact your health care provider. INDICATION: SHORTENED CERVIX COMPARISON: 08/23/2023, 08/16/2023 TECHNIQUE: Transvaginal sonogram of the pelvis performed. FINDINGS: heart rate 149 beats per minute. The cervix is closed and measures 2.9 cm. Normal amniotic fluid with single deepest pocket 4.6 cm. IMPRESSION: Closed cervix measuring 2.9 cm. Dictated by Rashad Yin MD @ 08/31/2023 6:57:30 AM (Electronically Signed)
== END 2023-08-30 12:08 | disposition home or self-care (01) ==
LOC: US 12:08
PROVIDERS: PCP Family Medicine; Visit Provider Obstetrics & Gynecology
DX: N88.3 Incompetence of cervix uteri (principal)
CPT/HCPCS: 76817

== ENCOUNTER 2023-09-06 09:13 | Outpatient (CLI) | payer MEDICAID, SELFPAY ==
--- NOTE | 2023-09-06 09:15 | CRLHL7_ITS ---
For Patients: As a result of the Century Cures Act, medical imaging exams and procedure reports are released immediately into your electronic medical record. You may view this report before your referring provider. If you have questions, please contact your health care provider. INDICATION: Shortened cervix. TECHNIQUE: Ultrasound OB pelvis transabdominal and transvaginal. Real-time san-scale imaging of the fetus was performed as well as color Doppler and spectral Doppler analysis of the umbilical artery. COMPARISON: None. FINDINGS: Intrauterine gestation: Present. cardiac activity: 165 BPM. Presentation: Cephalic. Placenta: Posterior. Amniotic fluid volume: Normal with the deepest pocket of 4 cm. Cervix: 2 cm in length without significant funneling. Umbilical artery blood flow: NA. IMPRESSION.: Viable intrauterine . Closed cervix measuring 2 cm in length. Dictated by Cooper Pitt MD @ 09/07/2023 2:46:14 PM (Electronically Signed)
--- OUTSIDE RECORDS SUMMARY | 2023-09-06 09:16 | XMS_ITS | Patient Health Record ---
Author Name Unknown Organization [facility] Address [address] [place], [place] [id number] Care Team Providers Care Wax Specialist Name Role Phone Job Ramirez Primary Care [...] Problem Other specified hypothyroidism (E03.8) Active confirmed 619026804 Problem Autoimmune thyroiditis (E06.3) Active confirmed 23485810 Problem Morbid (severe) obesity due to excess calories (E66.01) Active confirmed 33740847995808 Problem Secondary amenorrhea (N91.1) Active confirmed 514744523 Problem PCOS (polycystic ovarian syndrome) (E28.2) Active confirmed 979347810 Problem Infertility associated with anovulation (N97.0) Active confirmed 895187016 Problem Body mass index (BMI) of 35.0-35.9 in adult (Z68.35) Active confirmed 643227188 PLAN OF TREATMENT No Information Insurance Providers Payer Name Payer Address Payer Phone Subscriber Number Group Number Insured Name Patient Relationship to Insured Coverage Start Date Coverage End Date [facility] [address] [place] [address] [id number] [facility] [id number] TAYLOR RAHMAN Self - patient is the insured [place] Care Medicaid (Ins. Bill) [address] [address] [place], [place] [id number] TAYLOR RAHMAN Self - patient is the insured MEDICAL (GENERAL) HISTORY Medical History History ICD Code Depression\Anxiety Thyroid disease Surgical History Surgery Date(Month/Year) Lymph node 2014 Polyp removal 2019 Tonsilectomy 2014 Gallbladder 2016
== END 2023-09-06 09:14 | disposition home or self-care (01) ==
LOC: US 09:13
PROVIDERS: PCP Family Medicine; Visit Provider Obstetrics & Gynecology
DX: N88.3 Incompetence of cervix uteri (principal)
CPT/HCPCS: 76815; 76816; 76817

== ENCOUNTER 2023-10-05 10:47 | Outpatient (CLI) | payer MEDICAID, SELFPAY | END 2023-10-05 10:48 | disposition home or self-care (01) | LOC: NFLDREF 10-07 06:50 | PROVIDERS: PCP Family Medicine; Referring Provider Family Medicine; Visit Provider Obstetrics & Gynecology | DX: Z34.90 Encounter for supervision of normal pregnancy, unspecified, unspecified trimester (principal) | CPT/HCPCS: 86592 ==

== ENCOUNTER 2023-10-19 09:23 | Outpatient (CLI) | payer MEDICAID, SELFPAY ==
[2023-10-19 09:49] VITALS: PULSE 86; O2SAT 95
[2023-10-19 09:50] VITALS: BP 112/54; PULSE 85; RESP 16; TEMP 36.7
[2023-10-19 10:13] LABS: Appearance Urine Clear (Clear); Bilirubin Urine Negative (Negative); Blood Urine Negative (Negative); Color Urine Yellow (Yellow); Glucose Urine Negative (Negative); Ketones Urine Negative (Negative); Leukocyte Esterase Urine Trace (Negative); Nitrite Urine Negative (Negative); Protein Urine Negative (Negative); Specific Gravity Urine 1.025 (1.000-1.030); Urobilinogen Urine 0.2 (0.2-1.0); pH Urine 6.5 (5.0-8.5)
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
[2023-10-19] MEDS: BETAMETHASONE SOD PHOS/ACETATE 6 MG/ML ML 12 MG IM (10:33)
[2023-10-19 10:37] LABS: Bacteria Urine Moderate; RBC Urine 0-2 (0-2); Squamous Epithelial Cell Urine Few (None-Few)
[2023-10-19 10:38] LABS: Calcium Oxalate Crystals Urine Few; Mucus Urine Few
[2023-10-19] MEDS: NIFEdipine 10 MG CAPSULE PO (10:40)
[2023-10-19] MEDS: LACTATED RINGERS 1000 ML 1,000 ML 75 ML IV (10:44)
[2023-10-19 10:54] VITALS: BP 110/55; PULSE 80
--- NOTE | 2023-10-19 17:32 | PC.OBNST ---
NST Note NST Note Start: 10/19/23 09:36 Freq: ONCE Status: Active Protocol: Document 10/19/23 11:00 WK (Rec: 10/19/23 17:32 WK [id number]) NST Note 2 Para (# of births) 1 EDC 12/27/23 Gestational Age In Weeks & Days 30 Weeks & 1 Days Patient Presented with Complaint(s) of Other Other Complaints Pt was 3cm at her clinic visit at 30 wks gestation. Sent to OB for evaluation and probable transfer. Appropriate for Gestational Age Yes RN Hernan RNC Date 10/19/23 Appropriate for Gestational Age Yes RN Vern RN Date 10/19/23 OB NST charge Yes Complete NST Note via Write Note Yes The provider's electronic signature indicates the NST is reactive/appropriate for gestational age. *Note to provider: If an addendum is required, open the patient's chart and click on the note under the Nurse/Allied Health tab.
[2023-10-20 08:35] LABS: Strep B DNA Probe Negative (Negative)
[2023-10-20 08:44] LABS: Strep B Susceptibility Needed? No
== END 2023-10-19 11:10 | disposition short-term general hospital (02) ==
LOC: OB OUT 09:23 → OB 09:24
PROVIDERS: PCP Family Medicine; Visit Provider Obstetrics & Gynecology
DX: O60.03 Preterm labor without delivery, third trimester (principal); N89.8 Other specified noninflammatory disorders of vagina; Z3A.30 30 weeks gestation of pregnancy
CPT/HCPCS: 59025; 81003; 81015; 87081; 87086; 87653; G0463; A9270; J0702; J3475; J7120

== ENCOUNTER 2023-10-19 10:51 | Outpatient (CLI) | payer MEDICAID, SELFPAY ==
--- OUTSIDE RECORDS SUMMARY | 2023-10-24 01:22 | XMS_ITS | Encounter Summary ---
Author Name Unknown Organization [facility] Address [address] [place] [address]. 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 Never 04/09/2020 Average Number of Drinks Not on file 020 Frequency of Binge Drinking Not on file 10/2019 PHQ-2 Answer Date Recorded PHQ-2 Score 4 06/21/2023 Adolescent Education Answer Date Record ed Getting School Help Needed Not on file 07/12 Estimated Date of Delivery Comme nts Yes 12/27/2023 Based on Ultraso und Sex and Gender Information Value Date Recorded Sex Assigned at Female 10/05/2020 9:54 PM SUPPLIER DIVERSITY DIRECTOR Gender Identity Female 10/05/2020 9:54 PM SUPPLIER DIVERSITY DIRECTOR Sexual Orientation Straight 10/05/2020 9: 54 PM SUPPLIER DIVERSITY DIRECTOR documented as of this encounter Plan of Treatment Upcoming Encounters Date Type Department Care Team (Late st Contact Info) Description 04/17/2024 9:00 AM CDT Virtual Visit [facility] [address] [place] [address] Rocio Mccarthy MD [address] [place] [address] documented as of this encounter Procedures Procedure Name Priority Date/Time Associated Diagnosis Comments TSH Routine 10/11/2023 3:40 PM SUPPLIER DIVERSITY DIRECTOR 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 T4 FREE Routine 10/11/2023 3:40 PM SUPPLIER DIVERSITY DIRECTOR 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 T3 FREE Routine 10/11/2023 3:40 PM SUPPLIER DIVERSITY DIRECTOR 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 documented in this encounter Results * (ABNORMAL) TSH (10/11/2023 3:40 PM SUPPLIER DIVERSITY DIRECTOR) TSH 4.51(H) 0.30 - 4.20 uIU/mL 10/11/2023 10:16 PM SUPPLIER DIVERSITY DIRECTOR [facility] Blood BLOOD SPECIMEN / Unknown Venipuncture / Unknown 10/11/2023 3:40 PM SUPPLIER DIVERSITY DIRECTOR 10/11/2023 3:40 PM SUPPLIER DIVERSITY DIRECTOR Rocio Mccarthy MD LAB - BLOOD ORDER [facility] [place] [facility] [address] [place] [address], [facility] [phone] * T3 Free (10/11/2023 3:40 PM SUPPLIER DIVERSITY DIRECTOR) T3 Free 2.7 2.0 - 4.4 pg/mL 10/11/2023 10:16 PM SUPPLIER DIVERSITY DIRECTOR [facility] Blood BLOOD SPECIMEN / Unknown Venipuncture / Unknown 10/11/2023 3:40 PM SUPPLIER DIVERSITY DIRECTOR 10/11/2023 3:40 PM SUPPLIER DIVERSITY DIRECTOR Rocio Mccarthy MD LAB - BLOOD ORDER [facility] [address], [address] [place] [address], [facility] [phone] * T4 free (10/11/2023 3:40 PM SUPPLIER DIVERSITY DIRECTOR) [facility] Free T4 1.05 0.90 - 1.70 ng/dL 10/11/2023 10:16 PM SUPPLIER DIVERSITY DIRECTOR [facility] Blood BLOOD SPECIMEN / Unknown Venipuncture / Unknown 10/11/2023 3:40 PM SUPPLIER DIVERSITY DIRECTOR 10/11/2023 3:40 PM SUPPLIER DIVERSITY DIRECTOR Rocio Mccarthy MD LAB - BLOOD ORDER [facility] [address], [address] [address], [facility] [phone] documented in this encounter Visit Diagnoses Diagnosis 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
--- OUTSIDE RECORDS SUMMARY | 2023-10-24 01:22 | XMS_ITS | Referral Summary ---
Author Name Unknown Organization [facility] Address [address] [place] [address]. [place] [address] Care Team Providers Care Shoe Cobbler Name Role Phone Billie Guadarrama Primary Care Provider Rocio Mccarthy MD Unavailable [phone] Erica Tristan MD Unavailable [phone] Encounters Date Type Department Care Team Description 10/19/2023 11:54 AM SOFTWARE QUALITY ASSURANCE ENGINEER - 10/20/2023 10:44 AM SOFTWARE QUALITY ASSURANCE ENGINEER Hospital Encounter [facility] [address] [place] [address] Lisa Matthew MD Bayer, Chelsea, MD Shibley, Kirk Anthony, MD Indication for care in labor or delivery (Primary Dx) Discharge Disposition: Home or Self Care 10/19/2023 Hospital Encounter [facility] [address] [place] [phone] Simon Marcial MD 10/18/2023 MyC Medical Advice [facility] [address] [place] [phone] Chelita Harrell CMA 10/18/2023 9:30 AM SOFTWARE QUALITY ASSURANCE ENGINEER Virtual Visit [facility] [address] [place] [address] Rocio Mccarthy MD 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); , incidental 10/11/2023 Travel 10/11/2023 3:45 PM SOFTWARE QUALITY ASSURANCE ENGINEER Lab [facility] [address] [place] [address] 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 10/09/2023 MyC Medical Advice [facility] [address] [place] [address] Rocio Mccarthy MD 09/15/2023 MyC Medical Advice [facility] [address] [place] [address] Rocio Mccarthy MD 09/12/2023 Telephone [facility] [address] [place] [address] Rocio Mccarthy MD Call Back 08/24/2023 MyC Medical Advice [facility] [address] [place] [address] Rocio Mccarthy MD 08/23/2023 Travel 08/23/2023 1:30 PM SOFTWARE QUALITY ASSURANCE ENGINEER Lab [facility] [address] [place] [address] 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 08/17/2023 Travel 08/15/2023 MyC Medical Advice [facility] [address] [place] [address] Rocio Mccarthy MD 08/01/2023 Travel 08/01/2023 11:30 AM CDT Office Visit [facility] [place] [address] [place] [address] Anthony Shaffer MD Sabol, Bethany, MD Short cervix affecting (Primary Dx); History of prior with short cervix, currently 08/01/2023 10:55 AM CDT - 08/01/2023 11:59 PM CDT Hospital Encounter [facility] [address] [place] [address] Anthony Shaffer MD Sabol, Bethany, MD History of prior with short cervix, currently ; Short cervix affecting ; Encounter for follow-up ultrasound of anatomy Discharge Disposition: Home or Self Care 07/26/2023 Travel 07/26/2023 2:15 PM CDT Office Visit [facility] [address] [place] [address] Candice Conti MD Rauk, Phillip Neil, MD Obesity affecting , antepartum, unspecified obesity type (Primary Dx); History of prior with short cervix, currently ; Short cervix affecting ; Encounter for follow-up ultrasound of anatomy 07/26/2023 1:22 PM CDT - 07/26/2023 11:59 PM CDT Hospital Encounter [facility] [address] [place] [address] Candice Conti MD Rauk, Phillip Neil, MD History of prior with short cervix, currently Discharge Disposition: Home or Self Care from Last 3 Months Allergies Active Allergy Reactions Criticality Noted Date Comments Drospirenone-Ethinyl Estradiol Headache,Rash Low Oxycodone-Acetaminophen Rash Low 04/09/2020 Medications Medication Sig Dispensed Refills Start Date End Date Status Vit-Fe Fumarate-FA ( VITAMIN PO) Take by mouth daily 0 Active Progesterone Micronized 10 % CREA 0 08/09/2023 Active progesterone (PROMETRIUM) [address] 200 mg vaginally 0 09/06/2023 Active levothyroxine (SYNTHROID/LEVOTH ROID) 200 MCG tabletIndications :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 Take 1 tablet (200 mcg) by mouth daily 90 tablet 1 10/18/2023 Active NIFEdipine (PROCARDIA) 10 MG capsuleIndication s:Indication for care in labor or delivery Take 1 capsule (10 mg) by mouth every 6 hours 28 capsule 0 10/20/2023 Active nitroFURantoin macrocrystal-mono hydrate (MACROBID) 100 MG capsuleIndication s:Indication for care in labor or delivery Take 1 capsule (100 mg) by mouth 2 times daily 12 capsule 0 10/20/2023 Active levothyroxine (SYNTHROID/LEVOTH ROID) 175 MCG tabletIndications :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 Take 1 tablet (175 mcg) by mouth daily 90 tablet 1 06/21/2023 4 Discontinued Active Problems Problem Noted Date Diagnosed Date , incidental 06/21/2023 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 labor in third trimester with de livery 05/28/2021 Indication for care in labor or delivery 021 delivery 05/25/2021 Encounter for triage in patient 021 NO ACTIVE PROBLEMS Estimated Date of Delivery Comme nts Yes 12/27/2023 Based on Ultraso und Immunizations Name Administration Dates Next Due Comvax (HIB/HepB) 01/07/1998,1997 DTAP (<7y) 09/20/2002, 8,1997,1996 DTP-Hib 1997 DTaP, Unspecified 04/06/2010 [id number] Novel Flu 12/23/2009 HEPATITIS A (PEDS 12M-18Y) 06/02/2009,07/26/2007 HIB (PRP-T) 01/07/1998,1997,1997 HIB(PRP-OMP)(PedvaxHIB) 09/19/1998,1997 HPV Quadrivalent 10/27/2012,06/26/2012, 1 HepB 01/07/1998,1997,1997 Hepatitis B, Peds 1997 Historical DTP/aP 1997 Influenza (H1N1) 12/23/2009 Influenza (IIV3) PF 07/26/2013, 2,08/26/2011,2009,12/23/2009,07/26/2007,09/21/2006,1 11/06/2004,08/06/2003,07/26/2002 Influenza Vaccine >6 months,quad, PF ,06/22/2018,08/29/2017,2015,10/02/2015,07/19/2014 Influenza, seasonal, injectable, PF 08/26/2011,0 12/23/2009 MMR 09/20/2002,09/19/1998 Meningococcal ACWY (Menveo??) 07/26/2013 OPV, trivalent, live 09/19/1998 Poliovirus, inactivated (IPV) 09/20/2002 ,03/20/1998,1997,1996 TRIHIBIT (DTAP/HIB, <7y) 09/19/1998 Varicella 07/26/2007,12/23/1998 Social History Tobacco Use Types Packs/Day Years [...] Frequency of Binge Drinking Not on file 0710/2019 PHQ-2 Answer Date Recorded PHQ-2 Score 0 10/18/2023 Adolescent Education Answer Date Record ed Getting School Help Needed Not on file 07/12 Estimated Date of Delivery Comme nts Yes 12/27/2023 Based on Ultraso und Sex and Gender Information Value Date Recorded Sex Assigned at Female 10/05/2020 9:54 PM SOFTWARE QUALITY ASSURANCE ENGINEER Gender Identity Female 10/05/2020 9:54 PM SOFTWARE QUALITY ASSURANCE ENGINEER Sexual Orientation Straight 10/05/2020 9: 54 PM SOFTWARE QUALITY ASSURANCE ENGINEER Last Filed Vital Signs Vital Sign Reading Time Taken Comments Blood Pressure 116/58 10/20/2023 7:18 AM SOFTWARE QUALITY ASSURANCE ENGINEER Pulse 68 07/26/2023 2:39 PM CDT Temperature 36.6 ??C (97.9 ??F) 10/20/2023 7:18 AM CS T Respiratory Rate 16 10/20/2023 7:18 AM SOFTWARE QUALITY ASSURANCE ENGINEER Oxygen Saturation 95% 10/20/2023 5:33 AM SOFTWARE QUALITY ASSURANCE ENGINEER Inhaled Oxygen Concentration - - Weight 114.8 kg (253 lb) 10/19/2023 12:22 PM SOFTWARE QUALITY ASSURANCE ENGINEER Height 165.1 cm (5' 5) 10/19/2023 12:22 PM SOFTWARE QUALITY ASSURANCE ENGINEER Body Mass Index 42.1 10/19/2023 12:22 PM SOFTWARE QUALITY ASSURANCE ENGINEER Plan of Treatment Upcoming Encounters Date Type Department Care Team (Late st Contact Info) Description 04/17/2024 9:00 AM CDT Virtual Visit [facility] [address] [facility] [place] [address] Rocio Mccarthy MD [address] [place], [place] [id number] Procedures Procedure Name Priority Date/Time Associated Diagnosis Comments US OB FOLLOW UP >14 WEEKS STAT 10/20/2023 8:40 AM SOFTWARE QUALITY ASSURANCE ENGINEER URINE CULTURE STAT Add-on 10/19/2023 10:30 PM SOFTWARE QUALITY ASSURANCE ENGINEER ROUTINE UA WITH MICROSCOPIC REFLEX TO CULTURE Routine 10/19/2023 10:30 PM SOFTWARE QUALITY ASSURANCE ENGINEER ABO/RH TYPE AND SCREEN Timed 10/19/2023 1:22 PM SOFTWARE QUALITY ASSURANCE ENGINEER TYPE AND SCREEN, ADULT Timed 10/19/2023 1:22 PM SOFTWARE QUALITY ASSURANCE ENGINEER TSH Routine 10/11/2023 3:40 PM SOFTWARE QUALITY ASSURANCE ENGINEER 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 T3 FREE Routine 10/11/2023 3:40 PM SOFTWARE QUALITY ASSURANCE ENGINEER 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 T4 FREE Routine 10/11/2023 3:40 PM SOFTWARE QUALITY ASSURANCE ENGINEER 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 TSH Routine 08/23/2023 1:26 PM SOFTWARE QUALITY ASSURANCE ENGINEER 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 T3 FREE Routine 08/23/2023 1:26 PM SOFTWARE QUALITY ASSURANCE ENGINEER 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 T4 FREE Routine 08/23/2023 1:26 PM SOFTWARE QUALITY ASSURANCE ENGINEER 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 [facility] US OB TRANSVAGINAL Routine 08/01/2023 11:25 AM CDT History of prior with short cervix, currently Short cervix affecting Encounter for follow-up ultrasound of anatomy [facility] US COMPREHENSIVE SINGLE Routine 07/26/2023 2:32 PM CDT History of prior with short cervix, currently from Last 3 Months Results * US OB >14 Weeks Follow Up (10/20/2023 8:40 AM SOFTWARE QUALITY ASSURANCE ENGINEER) Anatomical Region Laterality Modality Abdomen/Pelvis Ultrasound Impressions 10/20/2023 9:46 AM SOFTWARE QUALITY ASSURANCE ENGINEER IMPRESSION: Single living intrauterine gestation of approximately 28 weeks 4 days gestation is estimated by ultrasound. ??Polyhydramnios. TRACEY FAUST MD SYSTEM ID: ??[id number] Narrative 10/20/2023 9:46 AM SOFTWARE QUALITY ASSURANCE ENGINEER ULTRASOUND OBSTETRIC FOLLOW UP >14 WEEKS October 20, 2023 8:40 AM HISTORY: Symptoms concerning for labor. COMPARISON: None. TECHNIQUE: Transabdominal imaging. FINDINGS: There is a single living intrauterine in a breech presentation of approximately 28 weeks 4 day gestation as estimated by ultrasound parameters. Mildly elevated amniotic fluid volume. MVP is 8 cm, ASH is 24.5 cm. Placenta is posterior fundal and left without previa. Cardiac activity 133 BPM. Cervix not seen. Unremarkable 4 chamber heart, stomach, bladder, and kidney. Estimated weight is 1247 g, 4th percentile for previously established gestational age of 30 weeks 2 days. Procedure Note Tracey Faust MD - 10/20/2023 ULTRASOUND OBSTETRIC FOLLOW UP >14 WEEKS October 20, 2023 8:40 AM HISTORY: Symptoms concerning for labor. COMPARISON: None. TECHNIQUE: Transabdominal imaging. FINDINGS: There is a single living intrauterine in a breech presentation of approximately 28 weeks 4 day gestation as estimated by ultrasound parameters. Mildly elevated amniotic fluid volume. MVP is 8 cm, ASH is 24.5 cm. Placenta is posterior fundal and left without previa. Cardiac activity 133 BPM. Cervix not seen. Unremarkable 4 chamber heart, stomach, bladder, and kidney. Estimated weight is 1247 g, 4th percentile for previously established gestational age of 30 weeks 2 days. IMPRESSION: Single living intrauterine gestation of approximately 28 weeks 4 days gestation is estimated by ultrasound. Polyhydramnios. TRACEY FAUST MD SYSTEM ID: [id number] Simon Marcial MD IMG US ORDERABLE S * (ABNORMAL) UA with Microscopic reflex to Culture (10/19/2023 10:30 PM SOFTWARE QUALITY ASSURANCE ENGINEER) Color Urine Straw Colorless, Straw, Light Yellow, Yellow 10/19/2023 10:46 PM SOFTWARE QUALITY ASSURANCE ENGINEER LABORATORY Appearance Urine Clear Clear 10/19/19 24 10:46 PM SOFTWARE QUALITY ASSURANCE ENGINEER LABORATORY Glucose Urine 300(A) Negative mg/dL 10/19/2023 10:46 PM SOFTWARE QUALITY ASSURANCE ENGINEER LABORATORY Bilirubin Urine Negative Negative 10:46 PM SOFTWARE QUALITY ASSURANCE ENGINEER LABORATORY Ketones Urine Negative Negative mg/dL 10/19/2023 10:46 PM SOFTWARE QUALITY ASSURANCE ENGINEER LABORATORY Specific [place] Urine 1.011 1.003 - 1.035 10/19/2023 10:46 PM SOFTWARE QUALITY ASSURANCE ENGINEER LABORATORY Blood Urine Negative Negative 10/19/2023 10:46 PM SOFTWARE QUALITY ASSURANCE ENGINEER LABORATORY pH Urine 5.5 5.0 - 7.0 10/19/2023 10:46 PM SOFTWARE QUALITY ASSURANCE ENGINEER LABORATORY Protein Albumin Urine Negative Negative mg/dL 10/19/2023 10:46 PM SOFTWARE QUALITY ASSURANCE ENGINEER LABORATORY Urobilinogen Urine Normal Normal, 2.0 mg/dL 10/19/2023 10:46 PM SOFTWARE QUALITY ASSURANCE ENGINEER LABORATORY Nitrite Urine Negative Negative 10/19/2023 10:46 PM SOFTWARE QUALITY ASSURANCE ENGINEER LABORATORY Leukocyte Esterase Urine Negative Negative 10/19/2023 10:46 PM SOFTWARE QUALITY ASSURANCE ENGINEER [facility] LABORAT[facility] Mucus Urine Present(A) None Seen /LPF 10/19/2023 10:46 PM SOFTWARE QUALITY ASSURANCE ENGINEER LABORATORY RBC Urine 1 <=2 /HPF 10/19/2023 10:46 PM SOFTWARE QUALITY ASSURANCE ENGINEER [facility] WBC Urine 2 <=5 /HPF 10/19/2023 10:46 PM SOFTWARE QUALITY ASSURANCE ENGINEER [facility] LAB[facility] Squamous Epithelials Urine 2(H) <=1 /HPF 10/19/2023 10:46 PM SOFTWARE QUALITY ASSURANCE ENGINEER [facility] Urine URINE SPECIMEN OBTAINED BY CLEAN CATCH PROCEDURE / Unknown Non-blood Collection / Unknown 10/19/2023 10:30 PM SOFTWARE QUALITY ASSURANCE ENGINEER 10/19/2023 10:39 PM SOFTWARE QUALITY ASSURANCE ENGINEER Narrative [facility] LABORATORY - 10/19/2023 10:46 PM SOFTWARE QUALITY ASSURANCE ENGINEER Urine Culture not indicated Idalmis Britt MD LAB - URINE ORDERABL ES [facility] LABORATORY [facility] [address] Lab (1st floor, no room number) [place] [address], [place] [phone] * Urine Culture (10/19/2023 10:30 PM SOFTWARE QUALITY ASSURANCE ENGINEER) Culture 10,000-50,000 CFU/mL Mixture of Urogenital Daniella 10/21/2023 10:53 AM SOFTWARE QUALITY ASSURANCE ENGINEER [facility] LABORATORY Urine URINE SPECIMEN OBTAINED BY CLEAN CATCH PROCEDURE / Unknown Non-blood Collection / Unknown 10/19/2023 10:30 PM SOFTWARE QUALITY ASSURANCE ENGINEER 10/19/2023 10:39 PM SOFTWARE QUALITY ASSURANCE ENGINEER Idalmis Britt MD LAB - MICRO GENERAL ORDERABLES [facility]ORAT[facility] Inf. Diseases Diag. Lab [address] [place] [address], [place] [phone] * Adult Type and Screen (10/19/2023 1:22 PM SOFTWARE QUALITY ASSURANCE ENGINEER) ABO/RH(D) B POS 10/19/2023 1:12 PM SOFTWARE QUALITY ASSURANCE ENGINEER RH BLOOD BANK Antibody Screen Negative Negative 10/19/2023 1:12 PM SOFTWARE QUALITY ASSURANCE ENGINEER RH BLOOD BANK SPECIMEN EXPIRATION DATE [id number] 10/19/2023 1:12 PM SOFTWARE QUALITY ASSURANCE ENGINEER RH BLOOD BANK Blood STRUCTURE OF RIGHT UPPER LIMB / Unknown Venipuncture / Unknown 10/19/2023 1:22 PM SOFTWARE QUALITY ASSURANCE ENGINEER 10/19/2023 1:27 PM SOFTWARE QUALITY ASSURANCE ENGINEER Lisa Matthew MD LAB - BLOOD BANK DUTCH T ORDER [place]LOOD [place] [address], [facility] * (ABNORMAL) TSH (10/11/2023 3:40 PM SOFTWARE QUALITY ASSURANCE ENGINEER) Only the most recent of2 resultswithin the time period is included. TSH 4.51(H) 0.30 - 4.20 uIU/mL 10/11/2023 10:16 PM SOFTWARE QUALITY ASSURANCE ENGINEER [facility] LABORATORY Blood BLOOD SPECIMEN / Unknown Venipuncture / Unknown 10/11/2023 3:40 PM SOFTWARE QUALITY ASSURANCE ENGINEER 10/11/2023 3:40 PM SOFTWARE QUALITY ASSURANCE ENGINEER Rocio Mccarthy MD LAB - BLOOD ORDER [place]ORNA Performing Organization Address City/[facility]/ZIP Co de Phone Number [facility] [place] [facility] [address], [address] [place] [address], [facility] [phone] * T4 free (10/11/2023 3:40 PM SOFTWARE QUALITY ASSURANCE ENGINEER) Only the most recent of2 resultswithin the time period is included. Free T4 1.05 0.90 - 1.70 ng/dL 10/11/2023 10:16 PM SOFTWARE QUALITY ASSURANCE ENGINEER [facility] LABORATORY Blood BLOOD SPECIMEN / Unknown Venipuncture / Unknown 10/11/2023 3:40 PM SOFTWARE QUALITY ASSURANCE ENGINEER 10/11/2023 3:40 PM SOFTWARE QUALITY ASSURANCE ENGINEER Rocio Mccarthy MD LAB - BLOOD ORDER [place]OR[place] [facility] [place] [facility] [address], [address] [place] [address], [facility] [phone] * T3 Free (10/11/2023 3:40 PM SOFTWARE QUALITY ASSURANCE ENGINEER) Only the most recent of2 resultswithin the time period is included. T3 Free 2.7 2.0 - 4.4 pg/mL 10/11/2023 10:16 PM SOFTWARE QUALITY ASSURANCE ENGINEER [facility] LAB[facility]ATORY Blood BLOOD SPECIMEN / Unknown Venipuncture / Unknown 10/11/2023 3:40 PM SOFTWARE QUALITY ASSURANCE ENGINEER 10/11/2023 3:40 PM SOFTWARE QUALITY ASSURANCE ENGINEER Rocio Mccarthy MD LAB - BLOOD ORDER [place] [facility] [place] [facility] [address] [facility], [address] [place] [address] [phone] * [facility] US OB Transvaginal (08/01/2023 11:25 AM CDT) Anatomical Region Laterality Modality Ultrasound 08/01/2023 11:0 6 AM CDT Impressions 08/01/2023 12:06 PM CDT IMPRESSION ----- 1. Intrauterine at 18w 6d gestational age. 2. The amniotic fluid measurement is within normal limits. 3. On transvaginal imaging the cervix is stable in length and closed. Narrative 08/01/2023 12:06 PM CDT ?Cx TV ----- Pat. Name: TAYLOR RAHMAN ? Study Date: ??08/01/2023 11:06am Pat. NO: ??[id number] ?Referring ??MD: JANUARY MANUELAKAITLYNN Site: ??[facility] ? Salt Plant Operator: Ariana Wilkerson RDMS : ??1995 ?Age: ?? 28 ----- INDICATION ----- History of labor with term delivery, short cervix - started on vaginal progesterone METHOD ----- Transabdominal and transvaginal ultrasound examination. View: Sufficient ----- Sebastian . Number of fetuses: 1 DATING ----- ? Date ?Details ?Gest. age ?MILES LMP ?03/16/2023 ? 19 w + 5 d ? 12/21/2023 Prior assessment ? 05/12/2023 ?GA: 7 w + 2 d ? 18 w + 6 d ? 12/27/2023 Assigned dating ?Dating performed on 07/26/2023, based on the prior assessment (on 05/12/2023) ?18 w + 6 d ? 12/27/2023 GENERAL EVALUATION ----- Cardiac activity present. FHR 133 bpm. movements visualized. Presentation cephalic. Placenta Posterior, No Previa, > 2 cm from internal os. Umbilical cord previously studied. Amniotic fluid MVP 6.4 cm. MATERNAL STRUCTURES ----- Cervix ?Normal ? Appearance: Appears closed. ? Approach - Transvaginal: Cervical length 26.1 mm RECOMMENDATION ----- Thank-you for referring your patient for a cervical length assessment. We discussed the findings on today's ultrasound with the patient. Follow-up is scheduled in two weeks to reassess cervical length. Return to primary provider for continued care. If you have questions regarding today's evaluation or if we can be of further service, please contact the [facility]. anomalies may be present but not detected Procedure Note Erica Tristan MD - 08/01/2023 Cx TV ----- Pat. Name: TAYLOR RAHMAN Study Date: 08/01/2023 11:06am Pat. NO: [id number] Referring MD: SERGIO SONI Site: [place] Salt [employer] Operator: Ariana Wilkerson RDMS : 1995 Age: 28 ----- INDICATION ----- History of labor with term delivery, short cervix - started onvaginal progesterone METHOD ----- Transabdominal and transvaginal ultrasound examination. View: Sufficient ----- Sebastian . Number of fetuses: 1 DATING ----- DateDetailsGest. age MILES LMP w + 5 d 12/21/2023 Prior assessment 05/12/2023 GA: 7 w +2 d18 w + 6 d 12/27/2023 Assigned dating Dating performed on 07/26/2023, based onthe prior assessment (on 05/12/2023) 18 w + 6 12/27/2023 GENERAL EVALUATION ----- Cardiac activity present. FHR 133 bpm. movements visualized. Presentation cephalic. Placenta Posterior, No Previa, > 2 cm from internal os. Umbilical cord previously studied. Amniotic fluid MVP 6.4 cm. MATERNAL STRUCTURES ----- Cervix Normal Appearance: Appears closed. Approach - Transvaginal:Cervical length 26.1 mm RECOMMENDATION ----- Thank-you for referring your patient for a cervical length assessment. We discussed the findings on today's ultrasound with the patient. Follow-up is scheduled in two weeks to reassess cervical length. Return to primary provider for continued care. If you have questions regarding today's evaluation or if we can be offurther service, please contact the [facility]. anomalies may be present but not detected IMPRESSION ----- 1. Intrauterine at 18w 6d gestational age. 2. The amniotic fluid measurement is within normal limits. 3. On transvaginal imaging the cervix is stable in length and closed. Anthony MAYER [facility] US ORDERABL ES * [facility] US Comprehensive Single (07/26/2023 2:32 PM CDT) Anatomical Region Laterality Modality Ultrasound 07/26/2023 1:18 PM CDT Impressions 07/26/2023 3:09 PM CDT IMPRESSION ----- 1) Sonographic biometry agrees with gestational age predicted by assigned MILES. 2) The cardiac anatomy was not adequately visualized. 3) The anatomy was otherwise adequately visualized and appeared normal. 4) None of the anomalies commonly detected by ultrasound were evident in those structures that were visualized. 5) Hypoplastic nasal bone. No other markers for aneuploidy seen. 6) Shortened cervical length with no funneling noted. Narrative 07/26/2023 3:09 PM CDT ?Comprehensive ----- Pat. Name: TAYLOR RAHMAN ? Study Date: ??07/26/2023 1:18pm Pat. NO: ??[id number] ?Referring ??: SERGIO SONI Site: ??[facility] ? Salt Plant Operator: Phylicia Perkins RDMS : ??1995 ?Age: ?? 28 ----- INDICATION ----- BMI 34 Low risk NIPT History of labor with term delivery History of lian's thyroiditis METHOD ----- Transabdominal and transvaginal ultrasound approaches were used. (Transvaginal ultrasound examination was required to adequately complete the exam.). View: Suboptimal view: limited by position and MBH ----- Sebastian . Number of fetuses: 1 DATING ----- ? Date ?Details ?Gest. age ?MILES LMP ?03/16/2023 ? 18 w + 6 d ? 12/21/2023 Prior assessment ? 05/12/2023 ?GA: 7 w + 2 d ? 18 w + 0 d ? 12/27/2023 U/S ? 07/26/2023 ? based upon AC, BPD, Femur, HC ?17 w + 3 d ? 12/31/2023 Assigned dating ?Dating performed on 07/26/2023, based on the prior assessment (on 05/12/2023) ?18 w + 0 d ? 12/27/2023 GENERAL EVALUATION ----- Cardiac activity present. movements present. Presentation cephalic. Placenta Posterior, No Previa, > 2 cm from internal os. Umbilical cord 3 vessel cord. Amniotic fluid Amount of AF: normal. MVP 4.6 cm. BIOMETRY ----- Main Biometry: BPD ?37.1 ?mm ? 17w 2d ?Hadlock OFD ?49.0 ?mm ? 16w 5d ?Nicolaides HC ?138.1 ?mm ?17w 1d ?Hadlock Cerebellum tr ?17.7 ? mm ?17w 5d ?Nicolaides AC ?117.1 ? mm ? 17w 3d ?29% ?Hadlock Femur ?26.3 ? mm ?18w 0d ?Hadlock Humerus ?24.9 ?mm ? 17w 6d ?Kevin Weight Calculation: EFW ? 204 ? g ? 26% ?Hadlock EFW (lb,oz) ? 0 lb 7 ?oz EFW by ?Hadlock ([id number]) Head / Face / Neck Biometry: [employer]member ? 5.4 ? mm CM ?5.3 ? mm Nasal bone ? 3.8 ? mm Nuchal fold ? 2.2 ? mm ANATOMY ----- The following structures appear abnormal: Face ? Nose: Hypoplastic nasal bone. The following structures appear normal: Head / Neck ? Cranium. Head size. Head shape. Lateral ventricles. Choroid plexus. Midline falx. Cavum septi pellucidi. Cerebellum. Cisterna magna. ? Parenchyma. Thalami. ? Neck. Nuchal fold. Face ? Lips. Maxilla. Mandible. Orbits. Lens. Heart / Thorax ?LVOT view. Situs. Aortic arch view. Bicaval view. Ductal arch view. Superior vena cava. Inferior vena cava. 5-soclim-ijloqji view. Cardiac ? position. Cardiac size. Cardiac rhythm. ? Right lung. Left lung. Diaphragm. Abdomen ? Abdominal wall. Cord insertion. Stomach. Kidneys. Bladder. Liver. Bowel. Genitals. Spine ?Cervical spine. Thoracic spine. Lumbar spine. Sacral spine. Extremities / Skeleton ?Right arm. Right hand. Left arm. Left hand. Right leg. Right foot. Left leg. Left foot. The following structures could not be adequately visualized: Head / Neck ? Vermis. Heart / Thorax ?4-chamber view. RVOT view. 3- vessel view. The following structures were visualized: Face ? Profile. MATERNAL STRUCTURES ----- Cervix ?Visualized ? Appearance: Appears Closed ? Approach - Transvaginal: Cervical length 21.0 mm ? Funneling absent Right Ovary ?Visualized Left Ovary ?Visualized CONSULTATION ----- Type: MFM CONSULTATION I was asked to see Taylor Rahman for a consult for prior with labor but term delivery. The patient is a 28 yo at 18w0d. In her prior she had a short cervix measured at > 24 weeks. She had an episode of PTL at 32 weeks but delivery at 37 weeks. Her PMHx is also remarkable for Lian's with hypothyroidism on synthroid replacement. contractions without PTD is very common. Up to 70% of women with contractions deliver at term. The short cervix in her prior was measured at > 24 weeks and therefore no highly predictive of PTD. Of note today however her cervix is shortened to 21 mm without a funnel. This is a marker for increased risk for PTD. Given that her last was at term the recommendation for the finding of a cervix length < 25 mm is vaginal progesterone 200 mg each day to be used up to 37 weeks. We do not recommend any change in activity and do not recommend bedrest/modified bedrest in any as this is not associated with either an increase or decrease in risk for PTD. We do recommend the followin) Vaginal progesterone 200 mg each day (Initial prescription for 30 days given today). 2) Reassess the cervix every week up to 24 weeks (ordered at [facility] in 1 and 2 weeks). 3) We would offer a cerclage if the cervix became < 10 mm or was dilated prior to 24 weeks. 4) In addition we will reassess the anatomy at [facility] in 2 weeks. For the history of hypothyroidism we recommend to assess adequate replacement each trimester and change her synthroid dose if appropriate. No additional assessments of growthg or testing is recommended for hypothyroidism. A total of 15 minutes was spent on all patient care activities on the day of this visit. RECOMMENDATION ----- We discussed the findings on today's ultrasound with the patient. We reviewed that an absent/hypoplastic nasal was noted today on ultrasound. This occurs in 0.1% to 1.2% of normal pregnancies with even higher rates in some ethnic populations. In the setting of low risk cell free DNA and no other structural anomalies/soft markers this finding is of little clinical importance and is most likely a normal variant and no further aneuploidy evaluation or follow-up ultrasound surveillance is necessary. See consultation section for further counseling. Return to primary provider for continued care. Thank-you for the opportunity to participate in the care of this patient. If you have questions regarding today's evaluation or if we can be of further service, please contact the [facility]. anomalies may be present but not detected Procedure Note Anthony Shaffer MD - 07/26/2023 Comprehensive ----- Pat. Name: TAYLOR RAHMAN Study Date: 07/26/2023 1:18pm Pat. 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 View: Suboptimal view: limited by position and MBH ----- Sebastian . Number of fetuses: 1 DATING ----- DateDetailsGest. age MILES LMP w + 6 d 12/21/2023 Prior assessment 05/12/2023 GA: 7 w +2 d18 w + 0 d 12/27/2023 U/S 10/17/2023based upon AC, BPD, Femur, HC17 w + 3 d 12/31/2023 Assigned dating Dating performed on 07/26/2023, based onthe prior assessment (on 05/12/2023) 18 w + 0 12/27/2023 GENERAL EVALUATION ----- Cardiac activity present. movements present. Presentation cephalic. Placenta Posterior, No Previa, > 2 cm from internal os. Umbilical cord 3 vessel cord. Amniotic fluid Amount of AF: normal. MVP 4.6 cm. BIOMETRY ----- Main Biometry: BPD 37.1 mm17w 2d Hadlock OFD 49.0 mm16w 5d Nicolaides HC 138.1 mm17w 1d Hadlock Cerebellum tr 17.7 mm17w 5d Nicolaides AC 117.1 mm17w 3d 29% Hadlock Femur 26.3 mm18w 0d Hadlock Humerus 24.9 mm17w 6d Kevin Weight Calculation: EFW 204 g26% Hadlock EFW (lb,oz) 0 lb 7 oz EFW by Hadlock (DLR-NO-BG-FL) Head / Face / Neck Biometry: [employer] Crewmember 5.4 mm CM 5.3 mm Nasal bone 3.8 mm Nuchal fold 2.2 mm ANATOMY ----- The following structures appear abnormal: Face Nose: Hypoplastic nasal bone. The following structures appear normal: Head / Neck Cranium. Head size. Head shape.Lateral ventricles. Choroid plexus. Midline falx. Cavum septi pellucidi.Cerebellum. Cisterna magna. Parenchyma. Thalami. Neck. Nuchal fold. Face Lips. Maxilla. Mandible. Orbits.Lens. Heart / Thorax LVOT view. Situs. Aortic arch view.Bicaval view. Ductal arch view. Superior vena cava. Inferior vena cava.0-etnrfz-oyhcgqx view. Cardiac position. Cardiac size. Cardiacrhythm. Right lung. Left lung.Diaphragm. Abdomen Abdominal wall. Cord insertion.Stomach. Kidneys. Bladder. Liver. Bowel. Genitals. Spine Cervical spine. Thoracic spine.Lumbar spine. Sacral spine. Extremities / Skeleton Right arm. Right hand. Left arm. Lefthand. Right leg. Right foot. Left leg. Left foot. The following structures could not be adequately visualized: Head / Neck Vermis. Heart / Thorax 4-chamber view. RVOT view. 3-vesselview. The following structures were visualized: Face Profile. MATERNAL STRUCTURES ----- Cervix Visualized Appearance: Appears Closed Approach - Transvaginal:Cervical length 21.0 mm Funneling absent Right Ovary Visualized Left Ovary Visualized CONSULTATION ----- Type: [facility] CONSULTATION I was asked to see Taylor Rahman for a consult for prior withpreterm labor but term delivery. The patient is a 28 yo at 18w0d. In her prior she had ashort cervix measured at > 24 weeks. She had an episode of PTL at 32 weeksbut delivery at 37 weeks. Her PMHx is also remarkable for Lian's with hypothyroidism onsynthroid replacement. contractions without PTD is very common. Up to 70% of women withpreterm contractions deliver at term. The short cervix in her priorpregnancy was measured at > 24 weeks and therefore no highly predictive of PTD. Of note todayhowever her cervix is shortened to 21 mm without a funnel. This is amarker for increased risk for PTD. Given that her last was at term the recommendation for thefinding of a cervix length < 25 mm is vaginal progesterone 200 mg each dayto be used up to 37 weeks. We do not recommend any change in activity and do not recommendbedrest/modified bedrest in any as this is not associated witheither an increase or decrease in risk for PTD. We do recommend the followin) Vaginal progesterone 200 mg each day (Initial prescription for 30 daysgiven today). 2) Reassess the cervix every week up to 24 weeks (ordered at [facility] in 1 and2 weeks). 3) We would offer a cerclage if the cervix became < 10 mm or was dilatedprior to 24 weeks. 4) In addition we will reassess the anatomy at [facility] in 2 weeks. For the history of hypothyroidism we recommend to assess adequatereplacement each trimester and change her synthroid dose if appropriate.No additional assessments of growthg or testing is recommended for hypothyroidism. A total of 15 minutes was spent on all patient care activities on the dayof this visit. RECOMMENDATION ----- We discussed the findings on today's ultrasound with the patient. We reviewed that an absent/hypoplastic nasal was noted today onultrasound. This occurs in 0.1% to 1.2% of normal pregnancies with evenhigher rates in some ethnic populations. In the setting of low risk cell free DNA and no otherstructural anomalies/soft markers this finding is of little clinicalimportance and is most likely a normal variant and no further aneuploidy evaluation or follow-up ultrasoundsurveillance is necessary. See consultation section for further counseling. Return to [facility] for continued care. Thank-you for the opportunity to participate in the care of this patient.If you have questions regarding today's evaluation or if we can be offurther service, please contact the [facility]. anomalies may be present but not detected IMPRESSION ----- 1) Sonographic biometry agrees with gestational age predicted by assignedEDD. 2) The cardiac anatomy was not adequately visualized. 3) The anatomy was otherwise adequately visualized and appearednormal. 4) None of the anomalies commonly detected by ultrasound were evident inthose structures that were visualized. 5) Hypoplastic nasal bone. No other markers for aneuploidy seen. 6) Shortened cervical length with no funneling noted. [facility] ORDERAB LES from Last 3 Months Advance Directives For more information, please contact: [phone] Latest Code Status on File Code Status Date Activated Date Inactivated Comments Full Code 10/19/2023 1:11 PM 10/20/2023 12:49 PM All basic and advanced life-sustaining interventions are performed as appropriate Question Answer Comments Code status determined by: Discussion with patient/ legal decision maker Code Status History Code Status Date Activated Date Inactivated Comments Full Code 05/29/2021 3:21 PM 05/31/2021 3:16 PM All b asic and advanced life-sustaining interventions are performed as appropriate Question Answer Comments Code status determined by: Discussion with patient/ legal decision maker Full Code 05/28/2021 8:18 PM 05/29/2021 3:21 PM All b asic and advanced life-sustaining interventions are performed as appropriate Question Answer Comments Code status determined by: Discussion with patient/ legal decision maker Full Code 05/26/2021 8:14 AM 05/26/2021 5:05 PM All b asic and advanced life-sustaining interventions are performed as appropriate Question Answer Comments Code status determined by: Discussion with patient/ legal decision maker Care Teams Shoe Cobbler Relationship Specialty Start Date End Date Billie Guadarrama PCP - General 12/17/19 Rocio Mccarthy MD [address] [place] [address] Assigned Endocrinology Provider 04/24/22 Erica Tristan MD [address] [place] [address] Assigned OBGYN Provider 08/06/23
--- OUTSIDE RECORDS SUMMARY | 2023-10-24 01:22 | XMS_ITS | Encounter Summary ---
Author Name Unknown Organization [facility] Address [address] [place] [address]. [place] [address] Care Team Providers Care Clinical Biochemical Geneticist Name Role Phone Billie Guadarrama Primary Care Provider Rocio Mccarthy MD Unavailable [phone] Erica Tristan MD Unavailable [phone] Encounter Details Date Type Department Care Team (Late st Contact Info) Description 09/15/2023 MyC Medical Advice [facility] [address] [place] [address] Rocio Mccarthy MD [address] [place] [address] Social History Tobacco Use Types Packs/Day [...] Sex Assigned at Female 10/05/2020 9:54 PM LIQUOR RECTIFIER Gender Identity Female 10/05/2020 9:54 PM LIQUOR RECTIFIER Sexual Orientation Straight 10/05/2020 9: 54 PM LIQUOR RECTIFIER documented as of this encounter Miscellaneous Notes * Telephone Encounter - Rocio Mccarthy MD - 09/15/2023 3:30 PM LIQUOR RECTIFIER Per VIJAY guidelines; Typically TSH upper reference limit of 2.5 mU/L in the first trimester and 3.0 mU/L in the second and third trimesters. Per newer guidelines: In the first trimester, the lower reference range of TSH can be reduced by approximately 0.4 mU/L, while the upper reference range is reduced by approximately 0.5 mU/L. For the typical patient in early , this corresponds to a TSH upper reference limit of 4.0 mU/L. This reference limit should generally be applied beginning with the late first trimester, weeks 7-12, with a gradual return towards the non range in the second and third trimesters. When possible, population-based trimester-specific reference ranges for serum TSH should be defined through assessment of local population data sales representative supervisor of a health care provider???s practice. OR RECTIFIER documented in this encounter Plan of Treatment Upcoming Encounters Date Type Department Care Team (Late st Contact Info) Description 04/17/2024 9:00 AM CDT Virtual Visit [facility] [address] [place] [address] Rocio Mccarthy MD [address] [place] [address] documented as of this encounter Visit Diagnoses Not on filedocumented in this encounter Additional Health Concerns Assessment Noted Time PHQ-9 Depression Total Score: 11 023 10:04 AM CDT documented as of this encounter Care Teams Clinical Biochemical Geneticist Relationship Specialty Start Date End Date Billie Guadarrama PCP - General 12/17/19 Rocio Mccarthy MD [address] [facility] [address] [place] [address] Assigned Endocrinology Provider 04/24/22 Erica Tristan MD [address] [facility] [address] [place], [place] [address] Assigned OBGYN Provider 08/06/23 documented as of this encounter
--- OUTSIDE RECORDS SUMMARY | 2023-10-24 01:22 | XMS_ITS | Encounter Summary ---
Author Name Unknown Organization [facility] Address [address] [place] [address]. [place] [address] Care Team Providers Care Earth Science Technical Officer Name Role Phone Billie Guadarrama Primary Care Provider [phone] Rocio Mccarthy MD Unavailable [phone] Erica Tristan MD Unavailable Reason for Visit * Auth/Cert (Routine) Specialty Diagnoses / Procedures Referred By Contac t Referred To Contact real estate rental agent Diagnoses Indication for care in labor or delivery Indication for care in labor or delivery [facility] [address] [place] [address] Referral ID Status Reason Start Date Expiration Date Visits Re quested Visits Authorized [id number] 1 1 Encounter Details Date Type Department Care Team (Late st Contact Info) Description 10/19/2023 Hospital Encounter [facility] [address] [place] [address] Simon Marcial MD [facility] [address] [place] [address] Social History Tobacco Use Types Packs/Day Years [...] 10/2019 PHQ-2 Answer Date Recorded PHQ-2 Score 0 10/18/2023 Adolescent Education Answer Date Record ed Getting School Help Needed Not on file 07/12 Estimated Date of Delivery Comme nts Yes 12/27/2023 Based on Ultraso und Sex and Gender Information Value Date Recorded Sex Assigned at Female 10/05/2020 9:54 PM GLOBAL HUMAN RESOURCES DIRECTOR Gender Identity Female 10/05/2020 9:54 PM GLOBAL HUMAN RESOURCES DIRECTOR Sexual Orientation Straight 10/05/2020 9: 54 PM GLOBAL HUMAN RESOURCES DIRECTOR documented as of this encounter Plan of Treatment Upcoming Encounters Date Type Department Care Team (Late st Contact Info) Description 04/17/2024 9:00 AM CDT Virtual Visit [facility] [address] [facility] [address] [place] [phone] Rocio Mccarthy MD [address] [facility] [address] [place], [place] [phone] documented as of this encounter Visit Diagnoses Not on filedocumented in this encounter Additional Health Concerns Assessment Noted Time PHQ-9 Depression Total Score: 11 023 10:04 AM CDT documented as of this encounter Care Teams Earth Science Technical Officer Relationship Specialty Start Date End Date Billie Guadarrama PCP - General 12/17/19 Rocio Mccarthy MD [address] [place], [place] [address] Assigned Endocrinology Provider 04/24/22 Erica Tristan MD [address] [place], [place] [address] Assigned OBGYN Provider 08/06/23 documented as of this encounter
--- OUTSIDE RECORDS SUMMARY | 2023-10-24 01:22 | XMS_ITS | Encounter Summary ---
Author Name Unknown Organization [facility] Address [address] [place] [address]. [place] [address] Care Team Providers Care Materials Analyst Name Role Phone Billie Guadarrama Primary Care Provider Rocio Mccarthy MD Unavailable [phone] Erica Tristan MD Unavailable [phone] Reason for Visit * Reason Onset Date Comments Call Back 09/12/2023 Encounter Details Date Type Department Care Team (Late st Contact Info) Description 09/12/2023 Telephone [facility] [address] [place] [address] Rocio Mccarthy MD [address] [place] [address] Call Back Social History Tobacco Use Types Packs/Day Years [...] 0710/2019 PHQ-2 Answer Date Recorded PHQ-2 Score 4 06/21/2023 Adolescent Education Answer Date Record ed Getting School Help Needed Not on file 07/12 Estimated Date of Delivery Comme nts Yes 12/27/2023 Based on Ultraso und Sex and Gender Information Value Date Recorded Sex Assigned at Female 10/05/2020 9:54 PM SENIOR MANAGER ASSET PROTECTION Gender Identity Female 10/05/2020 9:54 PM SENIOR MANAGER ASSET PROTECTION Sexual Orientation Straight 10/05/2020 9: 54 PM SENIOR MANAGER ASSET PROTECTION documented as of this encounter Miscellaneous Notes * Telephone Encounter - Rocio Mccarthy MD - 09/15/2023 3:33 PM SENIOR MANAGER ASSET PROTECTION Please see telephone encounter 09/15/2023 OR MANAGER ASSET PROTECTION * Telephone Encounter - Chelita Hahn - 09/12/2023 2:56 PM CST [facility] Call Center Phone Message May a detailed message be left on voicemail: yes Reason for Call: Other: BACK HANGER would like to know normal references ranges and values patient's care is being based off of. Patient is in 2nd trimester of . When calling , please ask for triage nurse. Action Taken: Other: endo Travel Screening: Not Applicable OR MANAGER ASSET PROTECTION documented in this encounter Plan of Treatment Upcoming Encounters Date Type Department Care Team (Late st Contact Info) Description 04/17/2024 9:00 AM CDT Virtual Visit [facility] [address] [facility] [address] [place] [address] Rocio Mccarthy MD [address] [place] [address] documented as of this encounter Visit Diagnoses Not on filedocumented in this encounter Additional Health Concerns Assessment Noted Time PHQ-9 Depression Total Score: 11 023 10:04 AM CDT documented as of this encounter Care Teams Materials Analyst Relationship Specialty Start Date End Date Billie Guadarrama PCP - General 12/17/19 Rocio Mccarthy MD [address] [place] [address] Assigned Endocrinology Provider 04/24/22 Erica Tristan MD [address] [place] [address] Assigned OBGYN Provider 08/06/23 documented as of this encounter
--- OUTSIDE RECORDS SUMMARY | 2023-10-24 01:22 | XMS_ITS | Encounter Summary ---
Author Name Unknown Organization [facility] Address [address] [place] [address]. 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 Never 04/09/2020 Average Number of Drinks Not on file Frequency of Binge Drinking Not on file 10/2019 PHQ-2 Answer Date Recorded PHQ-2 Score 0 10/18/2023 Adolescent Education Answer Date Record ed Getting School Help Needed Not on file 07/12 Estimated Date of Delivery Comme nts Yes 12/27/2023 Based on Ultraso und Sex and Gender Information Value Date Recorded Sex Assigned at Female 10/05/2020 9:54 PM PROPOSAL ENGINEER Gender Identity Female 10/05/2020 9:54 PM PROPOSAL ENGINEER Sexual Orientation Straight 10/05/2020 9: 54 PM PROPOSAL ENGINEER documented as of this encounter Patient Instructions * Patient Instructions* Rocio Mccarthy MD - 10/18/2023 9:30 AM PROPOSAL ENGINEER [facility] Dr Mccarthy, Endocrinology Department [address] [place] [address] Appointment [phone] [place]: Tuesday - Increase levothyroxine to 200 mcg/day Labs in 4-6 weeks and if stable, then recheck after delivery. Need to make lab only appointment. Follow up in 6 months with labs prior. Take Levothyroxine on an empty stomach. Take it with a full glass of water at least 30 minutes to 1hour before eating breakfast. This medicine should be taken at least 4 hours before or 4 hours after these medicines: antacids (Maalox??, Mylanta??, Tums??), calcium supplements, cholestyramine (Prevalite??, Questran??), colestipol (Colestid??), iron supplements, orlistat (Tereso??, Xenical??), simethicone (Gas-X??, Mylicon??), and sucralfate (Carafate??). Swallow the capsule whole. Do not cut or crush it. OSAL ENGINEER documented in this encounter Progress Notes * Rocio Mccarthy MD - 10/18/2023 9:30 AM CST THIS IS A VIDEO VISIT: Phone call visit/virtual visit encounter: Name of patient: Altagracia Garcia Date of encounter: 10/18/2023 Time of start of video visit: 9:30 Video started: 9:41 Video ended: 9:48 Provider location: working from home/ [facility] Patient location: patients home. Mode of transmission: video/ Doximity Verbal consent: obtained before starting visit. Pt is agreeable. The patient has been notified of following: This VIDEO visit will be conducted via a call between you and your physician/provider. We have found that certain health care needs can be provided without the need for a physical exam. This servicelets us provide the care you need with [...] physician/provider feels a telephone visit is not appropriate,you will not be charged for this service. Past medical history, social history, family history, allergy and medications were reviewed and updated as appropriate. Reviewed pertinent labs, notes, imaging studies personally. ENDOCRINOLOGY CLINIC NOTE: Name: Altagracia Garcia For follow up hypothyroidism. HPI: Altagracia Garcia is a 28 year old female who presents for the evaluation of : Was requested to see endocrinology by her APRON OPERATOR from [place]. Available records, labs and images from outside clinic were personally reviewed. Currently . This is second . MILES: December 2023. Gained 40 lbs so far. Wt Readings from Last 2 Encounters: 06/21/23 95.7 kg (211 lb) 03/28/21 115.7 kg (255 lb) #1 Hypothyroidism (+TPO): Diagnosed with Duane in 2012 and was started on levothyroxine 100 mcg/day. Currently taking generic 175 mcg/day. On this dose X 06/15/2023. ( Dose was gradually increased during this ) Takes generic. Reports compliance. Feeling tired. Energy is up and down. H/o fibromyalgia and PCOS. Thyroid US 05/2022- unremarkable- no discrete thyroid nodules were seen. Palpitations: No Changes to hair or skin: No. Diarrhea/Constipation: No. h/o cholecystectomy. Stable. Changes in menses: + Currently . Dysphagia or Shortness of breath:sometimes Tremors:No Changes in weight: as noted above. Heat or cold intolerance: sometimes cold History of [place] or Amiodarone use:No Head or neck surgery/radiation:No Family History of Thyroid Problems: pgm- thyroid problems. Weight is stable. 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 OPERATOR AUTOMATIC SURGERY 2019 ovarian cyst removed HEAD & NECK SURGERY 2015 lymph node removal NO HISTORY OF SURGERY abstract Family Hx: Family History Problem Relation Age of Onset Obesity Mother Depression Mother Depression Father Mental Illness Father Substance Abuse Father Thyroid Disease Paternal Grandmother Family History Negative Other Social Hx: Social History Socioeconomic History Marital status: Single Spouse name: Not on file Number of children: Not on file Years of education: Not on file Highest education level: Not on file Occupational History Not on file Tobacco Use Smoking status: Never Smokeless tobacco: Never Tobacco comments: NO 2ND HAND SMOKE AT HOME Vaping Use Vaping Use: Never used Substance and Sexual Activity Alcohol use: Never Drug use: Never Sexual activity: Yes Partners: Male control/protection: None Other Topics Concern Not on file Social History Narrative Not on file Social Determinants of Health Financial Resource Strain: Not on file Food Insecurity: Not on file Transportation Needs: Not on file Physical Activity: Not on file Stress: Not on file Social Connections: Not on file Interpersonal Safety: Not on file Housing Stability: Not on file MEDICATIONS: has a current medication list which includes the following prescription(s): levothyroxine, progesterone, vit-fe fumarate-fa, and progesterone micronized. ROS ROS: 10 point ROS neg other than the symptoms noted above in the HPI. Physical Exam VS: LMP 03/16/2023 GENERAL: healthy, alert and no distress EYES: [...] normal speech and appearance well-groomed LABS: TFTs: Latest Ref Rng 10/11/2023 3:40 PM ENDO THYROID LABS-[facility] TSH 0.30 - 4.20 uIU/mL 4.51 (H) Free T3 2.0 - 4.4 pg/mL 2.7 T3, Reverse ng/dL 9.0 - 27.0 ng/dL FREE T4 0.90 - 1.70 ng/dL 1.05 Thyroid US 04/2020: IMPRESSION: 1. Heterogeneity of both thyroid lobes suggestive of chronic thyroiditis. 2. No nodules. Thyroid US 05/2022: IMPRESSION: 1. No discrete thyroid nodule visualized. 2. Diffusely heterogenous thyroid parenchyma, likely due to underlying chronic thyroiditis. All pertinent notes, labs, and images personally reviewed by me. A/P Ms.Myranda Mary Beth Garcia is a 28 year old here for the evaluation of hypothyroidism: #1. Hypothyroidism(+TPO): Currently she is . MILES December 2023. Currently taking generic levothyroxine 175 mcg/day. On this dose X 06/15/2023. ( Dose was gradually increased during this ) Also has h/o fibromyalgia and PCOS. Plan: Discussed diagnosis, pathophysiology, management and treatment options of condition with pt. Based on 10/2022 labs-- Increase levothyroxine to 200 mcg/day (10/18/2023) Labs in 4-6 weeks and if stable, then recheck after delivery. Follow up in 6 months with labs prior. Recommend close follow-up during --recommend lab every 2-3 months during or sooner based on dose adjustment given history of fluctuating labs she needs close follow-up. Follow-up with endocrinology after delivery. Discussed s/s of hypothyroidism and hyperthyroidism to watch for. The patient indicates understanding of these issues and agrees with the plan. Follow-up: As noted in AVS Rocio Mccarthy MD Endocrinology [facility]/[place] CC: Billie Guadarrama All questions were answered. The patient indicates understanding of the above issues and agrees with the plan set forth. OSAL ENGINEER documented in this encounter Nursing Notes * Jina Blake - 10/18/2023 9:30 AM CST Is the patient currently in the state of [place]? YES Visit mode:VIDEO If the visit is dropped, the patient can be reconnected by: VIDEO VISIT: Text to cell phone: Telephone Information: Will anyone else be joining the visit? NO (If patient encounters technical issues they should call [phone] :[phone]) How would you like to obtain your AVS? MyChart Are changes needed to the allergy or medication list? No Reason for visit: RECHECK Jina Blake VVF OSAL ENGINEER documented in this encounter Plan of Treatment Upcoming Encounters Date Type Department Care Team (Late st Contact Info) Description 04/17/2024 9:00 AM CDT Virtual Visit [facility] [address] [facility] [address] [place] [phone] Rocio Mccarthy MD [address] [facility] [address] [place], [place] [id number] Scheduled Orders Name Type Priority Associated Diagnoses Orde r Schedule T4 free Lab Routine 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 every 6 weeks for 3 Occurrences starting 10/18/2023 until 10/18/2024 TSH Lab Routine 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 every 6 weeks for 3 Occurrences starting 10/18/2023 until 10/18/2024 documented as of this encounter Visit Diagnoses Diagnosis 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- Primary , incidental state, incidental documented in this encounter Additional Health Concerns Assessment Noted Time PHQ-9 Depression Total Score: 11 023 10:04 AM CDT documented as of this encounter Care Teams Automotive Lot Attendant Relationship Specialty Start Date End Date Billie Guadarrama PCP - General 12/17/19 Rocio Mccarthy MD [address] [place] [address] Assigned Endocrinology Provider 04/24/22 Erica Tristan MD [address] [place] [address] Assigned OBGYN Provider 08/06/23 documented as of this encounter
--- OUTSIDE RECORDS SUMMARY | 2023-10-24 01:22 | XMS_ITS | Encounter Summary ---
Author Name Unknown Organization [facility] Address [address] [place] [address]. [place] [address] Care Team Providers Care Television News Producer Name Role Phone Billie Guadarrama Primary Care Provider [phone] Rocio Mccarthy MD Unavailable [phone] Erica Tristan MD Unavailable [phone] Reason for Visit * Reason Comments Rule Out Labor * Auth/Cert (Routine) Specialty Diagnoses / Procedures Referred By Contac t Referred To Contact securities settlement processor Diagnoses Indication for care in labor or delivery Indication for care in labor or delivery [facility] [address] [place] [address] Referral ID Status Reason Start Date Expiration Date Visits Re quested Visits Authorized [id number] 1 1 Encounter Details Date Type Department Care Team (Late st Contact Info) Description 10/19/2023 11:54 AM PATTERNMAKER HAND - 10/20/2023 10:44 AM PATTERNMAKER HAND Hospital Encounter [facility] [address] [place] [address] Lisa Matthew MD [address] [place] [address] Idalmis Britt MD [facility] G[facility] [address] [place] [address] Simon Marcial MD [facility] [address] [place] [id number] Indication for care in labor or delivery (Primary Dx) Discharge Disposition: Home or Self Care Social History Tobacco Use Types Packs/Day Years [...] Sex Assigned at Female 10/05/2020 9:54 PM PATTERNMAKER HAND Gender Identity Female 10/05/2020 9:54 PM PATTERNMAKER HAND Sexual Orientation Straight 10/05/2020 9: 54 PM PATTERNMAKER HAND documented as of this encounter Last Filed Vital Signs Vital Sign Reading Time Taken Comments Blood Pressure 116/58 10/20/2023 7:18 AM PATTERNMAKER HAND Pulse - - Temperature 36.6 ??C (97.9 ??F) 10/20/2023 7:18 AM CS T Respiratory Rate 16 10/20/2023 7:18 AM PATTERNMAKER HAND Oxygen Saturation 95% 10/20/2023 5:33 AM PATTERNMAKER HAND Inhaled Oxygen Concentration - - Weight 114.8 kg (253 lb) 10/19/2023 12:22 PM PATTERNMAKER HAND Height 165.1 cm (5' 5) 10/19/2023 12:22 PM PATTERNMAKER HAND Body Mass Index 42.1 10/19/2023 12:22 PM PATTERNMAKER HAND documented in this encounter Discharge Instructions * Discharge Instructions* Melida Bryant RN - 10/20/2023 9:21 AM PATTERNMAKER HAND Discharge Instruction for Undelivered Patients You were seen for: Labor Assessment transfer from [facility] We Consulted: OBGYN specialists You had (Test or Medicine): Electronic and uterine monitoring, ultrasound, lab work, urinalysis, SVE (sterile vaginal exam), Betamethasone steroids for lung maturation, oral Nifedipine for tocolysis, Macrobid for urinary tract infection Diet: Drink 8 to 12 glasses of liquids (milk, juice, water) every day. You may eat meals and snacks. 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 Take 1 tablet (200 mcg) by mouth daily 90 tablet 1 10/18/2023 NIFEdipine (PROCARDIA) 10 MG capsuleIndications:Lauryn cation for care in labor or delivery Take 1 capsule (10 mg) by mouth every 6 hours 28 capsule 0 10/20/2023 nitroFURantoin macrocrystal-monohydrat e (MACROBID) 100 MG capsuleIndications:Lauryn cation for care in labor or delivery Take 1 capsule (100 mg) by mouth 2 times daily 12 capsule 0 10/20/2023 Vit-Fe Fumarate-FA ( VITAMIN PO) Take by mouth daily 0 progesterone (PROMETRIUM) [address] 200 mg vaginally 0 09/06/2023 Progesterone Micronized 10 % CREA 0 08/09/2023 documented as of this encounter Progress Notes * Simon Marcial MD - 10/20/2023 7:59 AM CST OB HD 2 Vss afeb Pt feeling better not feeling ctx Abd- NT NST R Rare ctx Cx- 2/60/-2 ballot Imp- PTL on Nifedepine. S/P MgS04 and first dose Betamethasone. Good response to nifedepine and reassuring cervical exam Plan- Check ultrasound. Discharge home on nifedepine after second dose betamethasone. F/U with OB 1week ERNMAKER HAND documented in this encounter H&P Notes * Lisa Matthew MD - 10/19/2023 5:30 PM CST Admission H and P: S: Pt is a transfer to [facility] from [facility]. She has a history of PTC in prior pregnancyat 32 weeks without delivery until term. Today she started to note increase in contractions. Cervix was found to be 3 cm at [place]. Theygave her BMZ, started nifedipine and Magnesium Sulfate and transferred her to [facility] for antepartummanagement. She has history of hypothyroidism, mood disorder, obesity. O: BP 124/73 (BP Location: Right arm, Patient Position: Semi-Hong's, Cuff Size: Adult Large) Temp 97.6 ??F (36.4 ??C) (Oral) Resp 18 Ht 1.651 m (5' 5) Wt 114.8 kg (253 lb) LMP 03/16/2023 SpO2 95% BMI 42.10 kg/m?? Abdomen: gravid, non-tender, contractions are not palpable. TOCO: no irritability seen. FHR: 130 baseline. Reassuring. No decelerations. A/P: 28 yo with history of contraction and term delivery in prior . Now with labor. Will continue Nifedapine for 48 hours while she receives BMZ. Will discontinue Magnesium sulfate at12 hours. Will determine if increase in contractions if cervical exam is needed or if indications. Lovenox for DVT profolaxis. Continue home medications. Lisa Matthew MD ERNMAKER HAND documented in this encounter Miscellaneous Notes * Utilization Review - Miguel Castañeda MD - 10/20/2023 10:12 AM PATTERNMAKER HAND Admission Status; Secondary Review Determination Under the authority of the Utilization Management Committee, the utilization review process indicated a secondary review on the above patient. The review outcome is based on review of the medical records, discussions with staff, and applying clinical experience noted on the date of the review. (x) Observation Status Appropriate - This patient does not meet hospital inpatient criteria and is placed in observation status. If this patient's primary payer is Medicare and was admitted as an inpatient, Condition Code 44 should be used and patient status changed to observation. RATIONALE FOR DETERMINATION 28-year-old female, a transfer from [facility], presented with a history of contractions in her prior at 32 weeks, which did not result in delivery until term. She experienced an increase in contractions and was found to have a 3 cm cervix at [facility]. Treatment initiated there included betamethasone, nifedipine, and magnesium sulfate. At [facility], she demonstrated a good response to nifedipine, with a reassuring cervical exam. The plan involved checking an ultrasound, discharging her home on nifedipine after the second dose of betamethasone, and schedulinga follow-up with OB in one week. The patient also had a history of hypothyroidism, a mood disorder,and obesity. The severity of illness, intensity of service provided, expected LOS and risk for adverse outcome make the care appropriate for further observation; however, doesn't meet criteria for hospital inpatient admission. Dr Marcial notified of this determination. This document was produced using voice recognition software. The information on this document is developed by the utilization review team in order for the business office to ensure compliance. This only denotes the appropriateness of proper admission status and does not reflect the quality of care rendered. The definitions of Inpatient Status and Observation Status used in making the determination above are those provided in the CMS Coverage Manual, Chapter 1 and Chapter 6, section 70.4. Sincerely, MIGUEL CASTAÑEDA MD System Stair BuilderGreen Building Materials Designer [facility]. ERNMAKER HAND * Provider Notification - Melida Bryant RN - 10/20/2023 9:02 AM CST 10/20/23 0902 Provider Notification Provider Name/Title Dr. Marcial Method of Notification Phone MD aware of ultrasound results. Orders to discharge pt to home after her Betamethasone injection. Orders to send pt with RX for 10 mg Nifedipine q6h (to be continued until her follow-up appointment with her primary OB within the week). Pt will also be given RX to continue her 100 mg Macrobid BID. Discharge orders placed. Instructions to be reviewed with pt--including warning signs for labor. All questions answered prior to leaving the unit. ERNMAKER HAND * Provider Notification - Melida Bryant RN - 10/20/2023 7:57 AM CST 10/20/23 0757 Provider Notification Provider Name/Title Dr. Marcial Method of Notification At Bedside Dr. Marcial at bedside to see pt and discuss POC. MD updated that pt is comfortable and denying contractions this AM. Denies vag bldg, LOF, or any other symptoms at this time. FHT's cat I tracing. Fetus active per pt. SVE by and high. Plan for ultrasound for growth and amniotic fluid. Plan for pt to receive 2nd Betamethasone injection later this AM. Plan for pt to discharge to home around lunchtime with Rx's for Macrobid and Nifedipine. Plan to follow-up in her OB clinic within one week (or sooner,as needed). Will continue to monitor at this time. ERNMAKER HAND * Plan of Care - Lexy Espinoza RN - 10/20/2023 6:43 AM CST Problem: Labor Goal: Delayed Delivery Intervention: Monitor and Manage Labor Recent Flowsheet Documentation Taken 10/19/2023 194 by Lexy Espinoza RN Body Position: position changed independently Goal Outcome Evaluation: Pt has been stating not feeling much for contractions or abd cramping. Pt has been sleeping most ofthe night. There was one occurrence of heart rate down to 100 with a broken tracing for approx 3 min. Resolved with position change, pt was flat on her back. Pt educated on not laying supine, pt verbalized understanding. Text page sent to Dr Britt. Will continue to monitor. ERNMAKER HAND * Provider Notification - Neli Bains RN - 10/19/2023 5:30 PM CST 10/19/23 1717 Provider Notification Provider Name/Title Dr. Matthew Method of Notification At Bedside Request Evaluate in Person Notification Reason Status Update;Uterine Activity MD at bedside to discuss patient plan of care. MD talked with patient about starting patient on oral nifedipine to help with contractions, will continue this until 48 hours from first betamethasone, SVE not indicated at this time per MD, as patient has only been reporting mild cramping. MD to order Lovenox and PO nifedipine. ERNMAKER HAND * Provider Notification - Neli Bains RN - 10/19/2023 1:00 PM CST 10/19/23 1256 Provider Notification Provider Name/Title Dr. Matthew Method of Notification Phone Request Evaluate - Remote Notification Reason Status Update;Patient Arrived;Uterine Activity MD notified of patient arrival since being transferred from [facility]. MD received reportfrom [employer] on patient previous Hx. MD was notified that patient had received her loading dose of Magnesium (@1043), betamethasone injection (@1033), and nifedipine tablet (@1040) priorto transfer. MD aware patient is sating around 93-95% SpO2-no interventions orders. MD made aware pt has shown 4 contractions within the last 45 min. MD would like to have a type and screen ordered, patient activity on bedrest with bathroom privileges, regular diet, continuous magnesium sulfate infusion for 12 hours. All home meds were verified with MD and reordered. Second dose of betamethasone will be ordered for 1030 10/20/23. MD said she willmeet with patient around [phone]. ERNMAKER HAND * Care Plan - Neli Bains RN - 10/19/2023 12:00 PM CST Patient arrived at 1154 via EMS transfer from [facility]. Patient is a here for rule out labor. Report was given from [place] RN at [address]. Will contact [address] Matthew for orders. ERNMAKER HAND documented in this encounter Plan of Treatment Upcoming Encounters Date Type Department Care Team (Late st Contact Info) Description 04/17/2024 9:00 AM CDT Virtual Visit [facility] [address] [facility] [address] [place] [address] Rocio Mccarthy MD [address] [place] [address] documented as of this encounter Procedures Procedure Name Priority Date/Time Associated Diagnosis Comments US OB FOLLOW UP >14 WEEKS STAT 10/20/2023 8:40 AM PATTERNMAKER HAND ROUTINE UA WITH MICROSCOPIC REFLEX TO CULTURE Routine 10/19/2023 10:30 PM PATTERNMAKER HAND URINE CULTURE STAT Add-on 10/19/2023 10:30 PM PATTERNMAKER HAND TYPE AND SCREEN, ADULT Timed 10/19/2023 1:22 PM PATTERNMAKER HAND ABO/RH TYPE AND SCREEN Timed 10/19/2023 1:22 PM PATTERNMAKER HAND documented in this encounter Results * US OB >14 Weeks Follow Up (10/20/2023 8:40 AM PATTERNMAKER HAND) Anatomical Region Laterality Modality Abdomen/Pelvis Ultrasound Impressions 10/20/2023 9:46 AM PATTERNMAKER HAND IMPRESSION: Single living intrauterine gestation of approximately 28 weeks 4 days gestation is estimated by ultrasound. ??Polyhydramnios. TRACEY FAUST MD SYSTEM ID: ??[id number] Narrative 10/20/2023 9:46 AM PATTERNMAKER HAND ULTRASOUND OBSTETRIC FOLLOW UP >14 WEEKS October [...] ultrasound. Polyhydramnios. TRACEY FAUST MD SYSTEM ID: [id number] Simon Marcial MD IMG US ORDERABLE S * Urine Culture (10/19/2023 10:30 PM PATTERNMAKER HAND) Culture 10,000-50,000 CFU/mL Mixture of Urogenital Daniella 10/21/2023 10:53 AM PATTERNMAKER HAND [facility] Urine URINE SPECIMEN OBTAINED BY CLEAN CATCH PROCEDURE / Unknown Non-blood Collection / Unknown 10/19/2023 10:30 PM PATTERNMAKER HAND 10/19/2023 10:39 PM PATTERNMAKER HAND Idalmis Britt MD LAB - MICRO GENERAL ORDERABLES [facility] Inf. Diseases Diag. Lab [address] [facility] [place] [address], [facility] [phone] * (ABNORMAL) UA with Microscopic reflex to Culture (10/19/2023 10:30 PM PATTERNMAKER HAND) Color Urine Straw Colorless, Straw, Light Yellow, Yellow 10/19/2023 10:46 PM PATTERNMAKER HAND LABORATORY Appearance Urine Clear Clear 10/19/19 24 10:46 PM PATTERNMAKER HAND LABORATORY Glucose Urine 300(A) Negative mg/dL 10/19/2023 10:46 PM PATTERNMAKER HAND LABORATORY Bilirubin Urine Negative Negative 10:46 PM PATTERNMAKER HAND LABORATORY Ketones Urine Negative Negative mg/dL 10/19/2023 10:46 PM PATTERNMAKER HAND LABORATORY Specific Standard Urine 1.011 1.003 - 1.035 10/19/2023 10:46 PM PATTERNMAKER HAND LABORATORY Blood Urine Negative Negative 10/19/2023 10:46 PM PATTERNMAKER HAND LABORATORY pH Urine 5.5 5.0 - 7.0 10/19/2023 10:46 PM PATTERNMAKER HAND LABOR[facility] Protein Albumin Urine Negative Negative mg/dL 10/19/2023 10:46 PM PATTERNMAKER HAND LABOR[facility] Urobilinogen Urine Normal Normal, 2.0 mg/dL 10/19/2023 10:46 PM PATTERNMAKER HAND LABOR[facility] Nitrite Urine Negative Negative 10/19/2023 10:46 PM PATTERNMAKER HAND LABOR[facility] Leukocyte Esterase Urine Negative Negative 10/19/2023 10:46 PM PATTERNMAKER HAND LAB[facility] Mucus Urine Present(A) None Seen /LPF 10/19/2023 10:46 PM PATTERNMAKER HAND LABOR[facility] RBC Urine 1 <=2 /HPF 10/19/2023 10:46 PM PATTERNMAKER HAND [facility] WBC Urine 2 <=5 /HPF 10/19/2023 10:46 PM PATTERNMAKER HAND [facility] Squamous Epithelials Urine 2(H) <=1 /HPF 10/19/2023 10:46 PM PATTERNMAKER HAND [facility] Urine URINE SPECIMEN OBTAINED BY CLEAN CATCH PROCEDURE / Unknown Non-blood Collection / Unknown 10/19/2023 10:30 PM PATTERNMAKER HAND 10/19/2023 10:39 PM PATTERNMAKER HAND Narrative [facility] - 10/19/2023 10:46 PM PATTERNMAKER HAND Urine Culture not indicated Idalmis Britt MD LAB - URINE ORDERABL [facility] LABORAT[facility] [address] [facility] (1st floor, no room number) [place] [address], [facility] [phone] * Adult Type and Screen (10/19/2023 1:22 PM PATTERNMAKER HAND) ABO/RH(D) B POS 10/19/2023 1:12 PM PATTERNMAKER HAND RH BLOOD BANK Antibody Screen Negative Negative 10/19/2023 1:12 PM PATTERNMAKER HAND RH BLOOD BANK SPECIMEN EXPIRATION DATE [id number] 10/19/2023 1:12 PM PATTERNMAKER HAND RH BLOOD BANK Blood STRUCTURE OF RIGHT UPPER LIMB / Unknown Venipuncture / Unknown 10/19/2023 1:22 PM PATTERNMAKER HAND 10/19/2023 1:27 PM PATTERNMAKER HAND iLsa Matthew MD LAB - BLOOD BANK DUTCH T ORDER RH BLOOD BANK [address] [place] [address], [facility] documented in this encounter Visit Diagnoses Diagnosis Indication for care in labor or delivery- Primary Unspecified indication for care or intervention related to labor and delivery, unspecified as to episode of care Indication for care in labor or delivery Unspecified indication for care or intervention related to labor and delivery, unspecified as to episode of care documented in this encounter Admitting Diagnoses Diagnosis Indication for care in labor or delivery Unspecified indication for care or intervention related to labor and delivery, unspecified as to episode of care documented in this encounter Administered Medications Inactive Administered Medications - up to 3 most recent administrations Medication Order MAR Action Action Date Dose Rate Site acetaminophen (TYLENOL) tablet 650 mg 650 mg, Oral, EVERY 4 HOURS PRN, mild pain, fever, headaches, Starting on Tue10/19/23 at 1557, Maximum acetaminophen dose from all sources = 75 mg/kg/day not to exceed 4 grams/day. $Given 10/19/2023 4:03 PM PATTERNMAKER HAND 650 mg betamethasone acet & sod phos (CELESTONE) injection 12 mg 12 mg, Intramuscular, EVERY 24 HOURS, First dose on Tue10/20/23 at 1030, For 1 dose, Antepartum $Given 10/20/2023 10:31 AM PATTERNMAKER HAND 12 mg calcium gluconate 10 % injection 1 g 1 g, Intravenous, ONCE PRN, magnesium toxicity, Administer over 3-5 Minutes, Starting on Tue10/19/23 at 1303, For 1 dose, STOP magnesium sulfate infusion and Notify care provider. Vesicant. Do not infuse in the same IV line as phosphate-containing solutions, Antepartum enoxaparin ANTICOAGULANT (LOVENOX) injection 40 mg 40 mg, Subcutaneous, DAILY, First dose on Tue10/19/23 at 2100 $Given 10/19/2023 9:23 PM PATTERNMAKER HAND 40 mg Right Lower Abdomen lactated ringers infusion at 75-125 mL/hr, Intravenous, CONTINUOUS, Antepartum, Starting on Tue10/19/23 at 1330, Until Tue10/20/23 at 1244 Rate/Dose Verify 10/19/2023 7:20 PM PATTERNMAKER HAND 75 mL/hr $New Bag 10/19/2023 1:34 PM PATTERNMAKER HAND 75 mL/hr levothyroxine (SYNTHROID/LEVOTHROID) tablet 200 mcg 200 mcg, Oral, EVERY MORNING BEFORE BREAKFAST, First dose on Tue10/20/23 at 0500, Separate oral administration of iron- or calcium-containing products and levothyroxine by at least 4 hours. $Given 10/20/2023 5:34 AM PATTERNMAKER HAND 200 mcg magnesium sulfate infusion 2 g/hr (50 mL/hr), Intravenous, CONTINUOUS, Starting on Tue10/19/23 at 1400, Indication: neuroprotection. ~Contact provider 12 hours after start of infusion to discuss continuation of magnesium infusion. ~Discontinue if delivery occurs., Antepartum Rate/Dose Verify 10/19/2023 7:20 PM PATTERNMAKER HAND 2 g/hr 50 mL/hr $New Bag 10/19/2023 1:27 PM PATTERNMAKER HAND 2 g/hr 50 mL/hr NIFEdipine (PROCARDIA) capsule 10 mg 10 mg, Oral, EVERY 6 HOURS SCHEDULED, First dose on Tue10/19/23 at 1800 $Given 10/20/2023 10:32 AM PATTERNMAKER HAND 10 mg $Given 10/20/2023 5:34 AM PATTERNMAKER HAND 10 mg $Given 10/19/2023 11:37 PM PATTERNMAKER HAND 10 mg nitroFURantoin macrocrystal-monohydrate (MACROBID) capsule 100 mg Routine, 100 mg, Oral, EVERY 12 HOURS SCHEDULED, First dose on Tue10/19/23 at 2230, For 7 days, Indications: Urinary Tract Infection $Given 10/20/2023 7:26 AM PATTERNMAKER HAND 100 mg $Given 10/19/2023 10:44 PM PATTERNMAKER HAND 100 mg No Tdap Needed - Assessment: Patient does not need Tdap vaccine CONTINUOUS PRN, Starting on Tue10/19/23 at 1311, Until Mimi 10/20/23 at 1244, Assessment: Patient does not need Tdap immunization, Antepartum ondansetron (ZOFRAN ODT) ODT tab 4 mg 4 mg, Oral, EVERY 6 HOURS PRN, nausea, vomiting, Starting on Tue10/19/23 at 1301, This is Step 2 of OB nausea and vomiting management. Give If nausea not resolved in 30 minutes after giving metoclopramide (REGLAN). If nausea is not resolved in 15 minutes, go to Step 3 (Compazine). With dry hands, peel back foil backing and gently remove tablet. Do not push oral disintegrating tablet through foil backing. Administer immediately on tongue and oral disintegrating tablet dissolves in seconds, then swallow with saliva. Liquid not required., Antepartum ondansetron (ZOFRAN) injection 4 mg 4 mg, Intravenous, EVERY 6 HOURS PRN, nausea, vomiting, Administer over 2-5 Minutes, Starting on Tue10/19/23 at 1301, This is Step 2 of OB nausea and vomiting management. Give if nausea not resolved 30 minutes after giving metoclopramide (REGLAN). If nausea is not resolved in 15 minutes, go to Step 3 (Compazine). Irritant., Antepartum multivitamin w/iron per tablet 1 tablet 1 tablet, Oral, DAILY, First dose on Tue10/20/23 at 0900, Antepartum progesterone (PROMETRIUM) capsule 200 mg 200 mg, Vaginal, DAILY, First dose on Tue10/19/23 at 2200 $Given 10/19/2023 10:44 PM PATTERNMAKER HAND 200 mg documented in this encounter Active and Recently Administered Medications Times are shown in PATTERNMAKER HAND. Scheduled Medication Order 10/18/2023 10/19/2023 10/20/2023 betamethasone acet & sod phos (CELESTONE) injection 12 mg (COMPLETED) 12 mg, Intramuscular, EVERY 24 HOURS, First dose on Tue10/20/23 at 1030, For 1 dose, Antepartum 1031 ($Given - Provi adán: Melida Bryant RN) enoxaparin ANTICOAGULANT (LOVENOX) injection 40 mg 40 mg, Subcutaneous, DAILY, First dose on Tue10/19/23 at 2100 2123 ($Given - Provider: Lexy Espinoza RN) levothyroxine (SYNTHROID/LEVOTHROID) tablet 200 mcg 200 mcg, Oral, EVERY MORNING BEFORE BREAKFAST, First dose on Tue10/20/23 at 0500, Separate oral administration of iron- or calcium-containing products and levothyroxine by at least 4 hours. 0534 ($Given - Provi adán: Lexy Espinoza RN) NIFEdipine (PROCARDIA) capsule 10 mg 10 mg, Oral, EVERY 6 HOURS SCHEDULED, First dose on Tue10/19/23 at 1800 1737 ($Given - Provider: Neli Bains RN)2337 ($Given - Provider: Lexy Espinoza RN) 0534 ($Given - Provider: Lexy Espinoza RN)1032 ($Given - Provider: Melida Bryant RN)1200 (Canceled Entry - Provider: Orders Generic Provider - Comment: Automatically canceled at discontinue of medication order) nitroFURantoin macrocrystal-monohydrate (MACROBID) capsule 100 mg Routine, 100 mg, Oral, EVERY 12 HOURS SCHEDULED, First dose on Tue10/19/23 at 2230, For 7 days, Indications: Urinary Tract Infection 2244 ($Given - Provider: Lexy Espinoza RN) 0726 ($Given - Provider: Melida Bryant, LADONNA) multivitamin w/iron per tablet 1 tablet 1 tablet, Oral, DAILY, First dose on Mimi 10/20/23 at 0900, Antepartum 0905 (Not Given - Provider: Melida Bryant RN - Reason: Other) progesterone (PROMETRIUM) capsule 200 mg 200 mg, Vaginal, DAILY, First dose on Tue10/19/23 at 2200 2244 ($Given - Provider: Lexy Espinoza RN) Continuous Medication Order 10/18/2023 10/19/2023 10/20/2023 lactated ringers infusion at 75-125 mL/hr, Intravenous, CONTINUOUS, Antepartum, Starting on Tue10/19/23 at 1330, Until Mimi 10/20/23 at 1244 1334 ($New Bag - Provider: Neli Bains RN)1920 (Rate/Dose Verify - Provider: Lexy Espinoza RN)2249 (Stopped - Provider: Lexy Espinoza RN) magnesium sulfate infusion 2 g/hr (50 mL/hr), Intravenous, CONTINUOUS, Starting on Tue10/19/23 at 1400, Indication: neuroprotection. ~Contact provider 12 hours after start of infusion to discuss continuation of magnesium infusion. ~Discontinue if delivery occurs., Antepartum 1327 ($New Bag - Provider: Neli Bains RN)1920 (Rate/Dose Verify - Provider: Lexy Espinoza RN)2249 (Stopped - Provider: Lexy Espinoza RN) PRN Medication Order 10/18/2023 10/19/2023 10/20/2023 acetaminophen (TYLENOL) tablet 650 mg 650 mg, Oral, EVERY 4 HOURS PRN, mild pain, fever, headaches, Starting on Tue10/19/23 at 1557, Maximum acetaminophen dose from all sources = 75 mg/kg/day not to exceed 4 grams/day. 1603 ($Given - Provider: Chioma Bains RN) calcium gluconate 10 % injection 1 g 1 g, Intravenous, ONCE PRN, magnesium toxicity, Administer over 3-5 Minutes, Starting on Tue10/19/23 at 1303, For 1 dose, STOP magnesium sulfate infusion and Notify care provider. Vesicant. Do not infuse in the same IV line as phosphate-containing solutions, Antepartum No Tdap Needed - Assessment: Patient does not need Tdap vaccine CONTINUOUS PRN, Starting on Tue10/19/23 at 1311, Until Mimi 10/20/23 at 1244, Assessment: Patient does not need Tdap immunization, Antepartum ondansetron (ZOFRAN ODT) ODT tab 4 mg(Linked Group 1) 4 mg, Oral, EVERY 6 HOURS PRN, nausea, vomiting, Starting on Tue10/19/23 at 1301, This is Step 2 of OB nausea and vomiting management. Give If nausea not resolved in 30 minutes after giving metoclopramide (REGLAN). If nausea is not resolved in 15 minutes, go to Step 3 (Compazine). With dry hands, peel back foil backing and gently remove tablet. Do not push oral disintegrating tablet through foil backing. Administer immediately on tongue and oral disintegrating tablet dissolves in seconds, then swallow with saliva. Liquid not required., Antepartum ondansetron (ZOFRAN) injection 4 mg(Linked Group 1) 4 mg, Intravenous, EVERY 6 HOURS PRN, nausea, vomiting, Administer over 2-5 Minutes, Starting on Tue10/19/23 at 1301, This is Step 2 of OB nausea and vomiting management. Give if nausea not resolved 30 minutes after giving metoclopramide (REGLAN). If nausea is not resolved in 15 minutes, go to Step 3 (Compazine). Irritant., Antepartum Linked Groups Order Group 1: ondansetron (ZOFRAN ODT) ODT tab 4 mgJump to med 4 mg, Oral, EVERY 6 HOURS PRN, nausea, vomiting, Starting on Tue10/19/23 at 1301, This is Step 2 of OB nausea and vomiting management. Give If nausea not resolved in 30 minutes after giving metoclopramide (REGLAN). If nausea is not resolved in 15 minutes, go to Step 3 (Compazine). With dry hands, peel back foil backing and gently remove tablet. Do not push oral disintegrating tablet through foil backing. Administer immediately on tongue and oral disintegrating tablet dissolves in seconds, then swallow with saliva. Liquid not required., Antepartum Or ondansetron (ZOFRAN) injection 4 mgJump to med 4 mg, Intravenous, EVERY 6 HOURS PRN, nausea, vomiting, Administer over 2-5 Minutes, Starting on Tue10/19/23 at 1301, This is Step 2 of OB nausea and vomiting management. Give if nausea not resolved 30 minutes after giving metoclopramide (REGLAN). If nausea is not resolved in 15 minutes, go to Step 3 (Compazine). Irritant., Antepartum documented in this encounter Additional Health Concerns Assessment Noted Time PHQ-9 Depression Total Score: 11 023 10:04 AM CDT documented as of this encounter Care Teams Television News Producer Relationship Specialty Start Date End Date Billie Guadarrama PCP - General 12/17/19 Rocio Mccarthy MD [address] [place], [place] [address] Assigned Endocrinology Provider 04/24/22 Erica Tristan MD [address] [place], [place] [id number] Assigned OBGYN Provider 08/06/23 documented as of this encounter
--- OUTSIDE RECORDS SUMMARY | 2023-10-24 01:22 | XMS_ITS | Clinical Summary ---
Author Name Unknown Organization [facility] Address [place], [place] [address] Care Team Providers Care Embroidery Patternmaker Name Role Phone Vasquez Ridley MD Unavailable [phone] Sanjeev Brar MD Unavailable [phone] Pcp, No Primary Care Provider Unavailabl e Allergies Active Allergy Reactions Criticality Noted Date Comments Drospirenone-Ethinyl Estradiol Rash,Headache Oxycodone-Acetaminophen Rash 01/17/2014 Medications Medication Sig Dispensed Refills Start Date End Date Status nystatin powder (MYCOSTATIN) powderIndication s:Yeast dermatitis USE TOPICALLY TO AFFECTED AREA(S) 2 TO 4 TIMES DAILY DIRECTED 60 g 1 11/21/2021 Active progesterone micronized (PROMETRIUM) 200 mg capsule Insert 200 mg into the vagina at bedtime. 0 09/06/2023 Active cholecalciferol (Vitamin D-3) 2,000 unit capsuleIndicatio ns:Vitamin D deficiency Take 1 Capsule (2,000 units) by mouth once daily. 90 Capsule 3 10/16/2023 Active cyclobenzaprine (FLEXERIL) 10 mg tabletIndication s:Left flank pain Take 1 Tablet (10 mg) by mouth 3 times daily if needed for Muscle Spasm. 15 Tablet 0 10/06/2022 10/13/2023 Discontinued (*Med complete/Reg imen complete/Lev el of care change) spironolactone (ALDACTONE) 100 mg tablet 0 10/07/2022 10/13/2023 Discontinued (*Med complete/Reg imen complete/Lev el of care change) triamcinolone (ARISTOCORT; KENALOG) 0.1 % cream 0 10/07/2022 10/13/2023 Discontinued (*Med complete/Reg imen complete/Lev el of care change) levothyroxine (SYNTHROID) 125 mcg tablet Take 137 mcg by mouth once daily. 0 07/05/2022 10/13/2023 Discontinued (*Med complete/Reg imen complete/Lev el of care change) diclofenac topical (VOLTAREN) 1 % gelIndications:A bdominal pain, LUQ (left upper quadrant) Apply 2-4 g topically to affected area(s) four times daily. 350 g 0 10/14/2022 10/13/2023 Discontinued (*Med complete/Reg imen complete/Lev el of care change) clotrimazole-bet amethasone cream (LOTRISONE) 1-0.05 % creamIndications :Rash Apply topically to affected area(s) two times daily. Use 10-14 days max 45 g 0 10/14/2022 10/13/2023 Discontinued (*Med complete/Reg imen complete/Lev el of care change) hydrocortisone (ANUSOL-HC) 2.5 % rectal creamIndications :Hemorrhoids, external Apply topically to affected area(s) two times daily. 28 g 3 02/09/2023 10/13/2023 Discontinued (*Med complete/Reg imen complete/Lev el of care change) lidocaine 5 % topical gelIndications:H emorrhoids, external Apply topically to affected area(s) each time if needed (PRN before bowel movements). 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 Fibromyalgia syndrome 01/19/2017 Numbness and tingling in right hand 01/19/2017 Chronic midline low back pain without sciatica 0 01/19/2017 PCOS (polycystic ovarian syndrome) 07/19/2014 Duane's thyroiditis 01/17/2014 MDD (major depressive disord er), recurrent episode, moderate 01/30/2013 Irregular periods 06/26/2012 Keratosis pilaris 06/08/2010 Overweight(278.02) 06/08/2010 Unspecified osteochondropathy 08/30/2007 Pain in joint, ankle and foot 07/26/2007 Unspecified disturbance of conduct 07/26/2007 Dysfunction of eustachian tube 07/26/2007 Estimated Date of Delivery Comme nts Yes 12/27/2023 Resolved Problems Problem Noted Date Diagnosed Date Resolved Date Pediculus capitis (head louse) 06/07/2007 07/26/2007 Encounters Date Type Department Care Team Description 10/20/[address] [facility] [address] [place] [address] Sarai Veliz LICSW Late Cancel Appointment 10/16/[address] [facility] [address] [place] [address] Billie Guadarrama, <No scans attached> 10/13/2023 10:50 AM WOOD FLOUR MILLER Office Visit [facility] [address] [place] [address] Billie Guadarrama DO Referral (psychology) 10/13/2023 Travel 09/06/2023 Orders Only [facility] Scanner 1 scan: (1-Ord) [facility] OB TRANSVAGINAL, 09/06/2023 08/30/2023 Orders Only [facility] Scanner 1 scan: (1-Ord) [facility] OB TRANSVAGINAL, 08/30/2023 08/23/2023 Orders Only [facility] Scanner 1 scan: (1-Ord) [facility] OB TRANSVAGINAL, 08/23/2023 08/16/2023 Orders Only [facility] Scanner 1 scan: (1-Ord) [facility] OB FOLLOW UP, 08/16/2023 from Last 3 Months Immunizations Name Administration Dates Next Due AMB Influenza, IIV3 (Age >=3 years)(Flu Clinic Only) 08/26/2011,09/08/2010 DTP 09/19/1998,05/09/1998,1997 DTP-HIB 1997 DTaP 09/20/2002 Dtap-5 Pertussis Antigens 1997 HIB PRP-OMP (PedvaxHIB) 09/19/1998,1997 HIB-HepB (Comvax) 01/07/1998,1997 HPV 9 (Gardasil 9) 10/27/2012,06/26/2012, 011 Hepatitis A (Peds) 06/02/2009,07/26/2007 Hepatitis B, Unspecified 01/07/1998,1997,0 1997 Human Papilloma Virus Vaccine 10/27/2012, 012,07/06/2011 Inactivated Polio Vaccine 09/20/2002,08/1998,1997,08/27 Influenza A (H1N1), Inactiva dave (Age >=3 Years) 12/23/2009 Influenza Virus, Unspecified 07/26/2013, 06/26/2012,08/26/2011,09/08,12/23/2009,07/26/2007,09/21/2006 ,09/06/2005,08/06/2003 Influenza, IIV3 (Age >=3 years) 07/26/20 13,06/26/2012,12/23/2009,07/26,07/26/2002 Influenza, IIV4 07/07/2023, 3,07/14/2020,08/08,06/22/2018,08/29/2017,07/13/2016 ,10/02/2015,07/19/2014 MMR 06/28/2021,09/20/2002,09/19/1998 Meningococcal Vaccine (Menactra) 07/26/2013 Meningococcal Vaccine (Menveo) 07/26/2013 Oral Polio Vaccine 09/19/1998 Td (Age >=7 Years) 09/10/2020 Tdap 05/11/2021,04/06/2010 Varicella Vaccine 07/26/2007,12/23/1998 Family History Medical History Relation Name Comments Hyperlipidemia Maternal Grandfather Hypertension Maternal Grandfather Heart Disease Maternal Grandmother Hyperlipidemia Maternal Grandmother Hypertension Maternal Grandmother Diabetes Mother gestational Asthma Other maternal great aunt and uncle Cancer-breast No Family History Cancer-colon No Family History Relation Name Status Comments Maternal Grandfather Maternal Grandmother Mother Other Social History Tobacco Use Types Packs/Day Years Used Date Smoking Tobacco: Never Smokeless Tobacco: Never Tobacco Cessation:Counseling Given: Yes Alcohol Use Standard Drinks/Week Comments No 0 (1 standard drink = 0.6 oz pur e alcohol) PHQ-2 Answer Date Recorded PHQ-2 TOTAL SCORE 4 10/13/2023 Social Connections Answer Date Recorded Frequency of Communication with Friends and Fami ly Not on file 10/16/2023 Financial Resource Strain Answer Date R ecorded Difficulty of Paying Living Expenses 3 10/14/2022 Difficulty of Paying Living Expenses Not on file 10/14/2022 Food Insecurity Answer Date Recorded Worried About Running Out of Food in the Last Ye ar 1 10/14/2022 Transportation Needs Answer Date Record ed Lack of Transportation (Medical) 1 10/14/2022 Housing Stability Answer Date Recorded Unable to Pay for Housing in the Last Year 1 10/14/2022 Estimated Date of Delivery Comme nts Yes 12/27/2023 Sex and Gender Information Value Date Recorded Sex Assigned at Not on file Gender Identity Not on file Sexual Orientation Not on file Obstetrics History Para Term AB IAB SAB Ectopic Multiple Livin g Live Births 3 1 1 0 1 0 1 0 0 1 1 Date Outcome GA Total Labor Labor/2nd/3rd Weight Sex Delivery Anes PTL Jenny A1 A5 Name Cl in SAB 06/26 Term 37w 1d Vag Antonia ng Current Last Filed Vital Signs Vital Sign Reading Time Taken Comments Blood Pressure 114/70 10/13/2023 10:44 AM WOOD FLOUR MILLER Pulse 85 10/13/2023 10:44 AM WOOD FLOUR MILLER Temperature 36.7 ??C (98 ??F) 10/14/2022 1:05 PM WOOD FLOUR MILLER Respiratory Rate 18 10/06/2022 8:41 PM WOOD FLOUR MILLER Oxygen Saturation 98% 10/13/2023 10:44 AM WOOD FLOUR MILLER Inhaled Oxygen Concentration - - Weight 112.9 kg (249 lb) 10/13/2023 10:44 AM WOOD FLOUR MILLER Height 165.1 cm (5' 5) 10/14/2022 1:05 PM WOOD FLOUR MILLER Body Mass Index 41.44 10/14/2022 1:05 PM WOOD FLOUR MILLER Plan of Treatment Upcoming Encounters Date Type Department Care Team (Late st Contact Info) Description 10/26/2023 12:30 PM WOOD FLOUR MILLER Office [facility] [address] [place] [address] Sarai Veliz, [facility] [address] [place] [address] Health Maintenance Due Date Last Done Comments COVID-19 vaccine series (#1) 1997 HIV for age 15-65 2012 BMI (ht and wt on same day) for age 18+ 10/14/2023 10/14/2022, 07/14/2020, 12/14/2019, Additional history exists Pap test for age 21-65 12/04/2023 1, 12/04/2020, 12/26/2018, Additional history exists Depression screening for age 12+ 10/13/2024 10/13/2023, 10/14/2022, 10/29/2020, Additional history exists Tetanus booster 05/11/2031 05/11/2021, 12/0 11/2019, 04/06/2010 HPV series for age 9-26 Completed 10/27/19 13, 10/27/2012, 06/26/2012, Additional history exists Hepatitis C screening for age 18-79 Completed 08/31/2016 Tdap Completed 05/11/2021, 04/06/2010 Influenza for age 9-49 Completed 3, 10/14/2022, 07/14/2020, Additional history exists Pneumococcal series for age 6-64 Aged Out No longer eligible based on patient's age to complete this topic Procedures Procedure Name Priority Date/Time Associated Diagnosis Comments VITAMIN D 25 (DEFICIENCY) Routine 10/13/2023 11:24 AM WOOD FLOUR MILLER Vitamin D deficiency SCAN-ULTRASOUND REPORT 09/06/2023 12:00 AM WOOD FLOUR MILLER SCAN-ULTRASOUND REPORT 08/30/2023 12:00 AM WOOD FLOUR MILLER SCAN-ULTRASOUND REPORT 08/23/2023 12:00 AM WOOD FLOUR MILLER SCAN-ULTRASOUND REPORT 08/16/2023 12:00 AM WOOD FLOUR MILLER from Last 3 Months Results * VITAMIN D 25 (DEFICIENCY) (10/13/2023 11:24 AM WOOD FLOUR MILLER) VITAMIN D TOTAL 24.6 20.0 - 80.0 ng/mL 10/13/2023 9:55 PM WOOD FLOUR MILLER [facility] Blood BLOOD SPECIMEN / Unknown Venipuncture / Unknown 10/13/2023 11:24 AM WOOD FLOUR MILLER 10/13/2023 11:25 AM WOOD FLOUR MILLER Narrative [facility] - 10/13/2023 9:55 PM WOOD FLOUR MILLER ? Vitamin D Status Deficiency: ? <20 ng/mL Insufficiency: ?20-29 ng/mL Sufficiency: ?30-80 ng/mL Possible Toxicity: ??>80 ng/mL Based on [facility] recommendations Biotin supplements may cause clinically significant interference for this test assay. ??If interference is suspected, it is strongly recommended that biotin is discontinued for at least one week prior to retesting. Billie Guadarrama DO SEND OUTS [facility] [address] [place] [address], [place] * SCAN-ULTRASOUND REPORT (09/06/2023 12:00 AM WOOD FLOUR MILLER) Only the most recent of4 resultswithin the time period is included. Anatomical Region Laterality Modality Other Scanner OTHER from Last 3 Months Care Teams Embroidery Patternmaker Relationship Specialty Start Date End Date Pcp, No . PCP - General 12/28/22 Vasquez Ridley MD [address] [place] [address] Rheumatology Rheumatology 10/07/16 Sanjeev Brar MD [address] [place] [address] Internal Medicine 09/28/19
--- OUTSIDE RECORDS SUMMARY | 2023-10-24 01:22 | XMS_ITS | Encounter Summary ---
Author Name Unknown Organization [facility] Address [address] [place] [address]. [place] [address] Care Team Providers Care Precinct Police Captain Name Role Phone Selinsusan Billie Primary Care Provider [phone] Rocio Mccarthy MD Unavailable [phone] Erica Tristan MD Unavailable [phone] Encounter Details Date Type Department Care Team (Late st Contact Info) Description 10/18/[address] [facility] [address] [place] [address] Chelita Harrell, [facility] Social History Tobacco Use Types Packs/Day Years [...] Sex Assigned at Female 10/05/2020 9:54 PM RESIDENTIAL AIDE Gender Identity Female 10/05/2020 9:54 PM RESIDENTIAL AIDE Sexual Orientation Straight 10/05/2020 9: 54 PM RESIDENTIAL AIDE documented as of this encounter Plan of Treatment Upcoming Encounters Date Type Department Care Team (Late st Contact Info) Description 04/17/2024 9:00 AM CDT Virtual Visit [facility] [address] [place] [address] Rocio Mccarthy MD [address] [place] [address] documented as of this encounter Visit Diagnoses Not on filedocumented in this encounter Additional Health Concerns Assessment Noted Time PHQ-9 Depression Total Score: 11 023 10:04 AM CDT documented as of this encounter Care Teams Precinct Police Captain Relationship Specialty Start Date End Date Billie Guadarrama PCP - General 12/17/19 Rocio Mccarthy MD [address] [place] [address] Assigned Endocrinology Provider 04/24/22 Erica Tristan MD [address] [place] [address] Assigned OBGYN Provider 08/06/23 documented as of this encounter
--- OUTSIDE RECORDS SUMMARY | 2023-10-24 01:22 | XMS_ITS | Encounter Summary ---
Author Name Unknown Organization [facility] Address [address] [place] [address]. [place] [address] Care Team Providers Care Recruiting Specialist Name Role Phone Billie Guadarrama Primary Care Provider [phone] Rocio Mccarthy MD Unavailable [phone] Erica Tristan MD Unavailable [phone] Encounter Details Date Type Department Care Team (Late st Contact Info) Description 10/09/2023 MyC Medical Advice [facility] [address] [place] [address] Rocio Mccarthy MD [address] [place] [address] Social History Tobacco Use Types [...] Sex Assigned at Female 10/05/2020 9:54 PM YIELD LOSS INSPECTOR Gender Identity Female 10/05/2020 9:54 PM YIELD LOSS INSPECTOR Sexual Orientation Straight 10/05/2020 9: 54 PM YIELD LOSS INSPECTOR documented as of this encounter Miscellaneous Notes * Telephone Encounter - Nahed Woodruff - 10/12/2023 10:36 AM CST Appointment scheduled. D LOSS INSPECTOR * Telephone Encounter - Rocio Mccarthy MD - 10/11/2023 10:51 AM YIELD LOSS INSPECTOR Ok for ANGÉLICA at this time. Please note that schedule gets booked out fast and it is difficult to add on patients when scheduleis full. So it is highly advised that you make appointment ahead of time so that we can follow up on labs/imaging studies in timely manner. This will help us to serve you better. Please call the clinic to make appropriate appointments. Let us know if you have any questions or if you need any help with scheduling. D LOSS INSPECTOR documented in this encounter Plan of Treatment Upcoming Encounters Date Type Department Care Team (Late st Contact Info) Description 04/17/2024 9:00 AM CDT Virtual Visit [facility] [address] [place] [address] Rocio Mccarthy MD [address] [place] [address] documented as of this encounter Visit Diagnoses Not on filedocumented in this encounter Additional Health Concerns Assessment Noted Time PHQ-9 Depression Total Score: 11 023 10:04 AM CDT documented as of this encounter Care Teams Recruiting Specialist Relationship Specialty Start Date End Date Billie Guadarrama PCP - General 12/17/19 Rocio Mccarthy MD [address] [place] [address] Assigned Endocrinology Provider 04/24/22 Erica Tristan MD [address] [place] [address] Assigned OBGYN Provider 08/06/23 documented as of this encounter
--- OUTSIDE RECORDS SUMMARY | 2023-10-24 01:22 | XMS_ITS | Clinical Summary ---
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 Take 1 tablet (200 mcg) by [...] nts Yes 12/27/2023 Based on Ultraso und Encounters Date Type Department Care Team Description 10/19/2023 11:54 AM ACCOUNTING LECTURER - 10/20/2023 10:44 AM ACCOUNTING LECTURER Hospital Encounter [facility] [address] [place] [address] Lisa Matthew MD Bayer, Chelsea, MD Shibley, Kirk Anthony, MD Indication for care in labor or delivery (Primary Dx) Discharge Disposition: Home or Self Care 10/19/2023 Hospital Encounter [facility] [address] [place] [address] Simon Marcial MD 10/18/2023 9:30 AM ACCOUNTING LECTURER Virtual Visit [facility] [address] [place] [address] Rocio Mccarthy MD 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); , incidental 10/18/2023 MyC Medical Advice [facility] [address] [place] [address] Chelita Harrell CMA 10/11/2023 3:45 PM ACCOUNTING LECTURER Lab [facility] [address] [place] [address] 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 10/11/2023 Travel 10/09/2023 MyC Medical Advice [facility] [address] [place] [address] Rocio Mccarthy MD 09/15/2023 MyC Medical Advice [facility] [address] [place] [address] Rocio Mccarthy MD 09/12/2023 Telephone [facility] [address] [place] [address] Rocio Mccarthy MD Call Back 08/24/2023 MyC Medical Advice [facility] [address] [place] [address] Rocio Mccarthy MD 08/23/2023 1:30 PM ACCOUNTING LECTURER Lab [facility] [address] [place] [address] 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 08/23/2023 Travel 08/17/2023 Travel 08/15/2023 MyC Medical Advice [facility] [address] [place] [address] Rocio Mccarthy MD 08/01/2023 11:30 AM CDT Office Visit [facility] [address] [place] [address] Anthony Shaffer MD Sabol, Bethany, MD Short cervix affecting (Primary Dx); History of prior with short cervix, currently 08/01/2023 10:55 AM CDT - 08/01/2023 11:59 PM CDT Hospital Encounter [facility] [address] [place] [address] Anthony Shaffer MD Sabol, Bethany, MD History of prior with short cervix, currently ; Short cervix affecting ; Encounter for follow-up ultrasound of anatomy Discharge Disposition: Home or Self Care 08/01/2023 Travel 07/26/2023 2:15 PM CDT Office Visit [facility] [address] [place] [address] Candice Conti MD Rauk, Anthony Hernandez MD Obesity affecting , antepartum, unspecified obesity type (Primary Dx); History of prior with short cervix, currently ; Short cervix affecting ; Encounter for follow-up ultrasound of anatomy 07/26/2023 1:22 PM CDT - 07/26/2023 11:59 PM CDT Hospital Encounter [facility] [address] [place] [address] Candice Conti MD Rauk, Anthony Hernandez MD History of prior with short cervix, currently Discharge Disposition: Home or Self Care 07/26/2023 Travel from Last 3 Months Immunizations Name Administration Dates Next Due Comvax (HIB/HepB) 01/07/1998,1997 DTAP (<7y) 09/20/2002, 8,1997,1996 DTP-Hib 1997 DTaP, Unspecified 04/06/2010 [id number] Novel Flu 12/23/2009 HEPATITIS A (PEDS 12M-18Y) [...] ,03/20/1998,1997,1996 TRIHIBIT (DTAP/HIB, <7y) 09/19/1998 Varicella 07/26/2007,12/23/1998 Family History Medical History Relation Comments Depression Father Mental Illness Father Substance Abuse Father Depression Mother Obesity Mother Family History Negative Other Thyroid Disease Paternal Grandmother Relation Status Comments Father Alive 26 OW Maternal Grandfather Alive 53 Maternal Grandmother Alive 56 Mother Alive 27 OW Other Paternal Grandfather Alive 40'S Paternal Grandmother (Age 30'S) UNDETER MINED Social History Tobacco Use Types Packs/Day Years [...] Frequency of Binge Drinking Not on file 070 10/2019 PHQ-2 Answer Date Recorded PHQ-2 Score 0 10/18/2023 Adolescent Education Answer Date Record ed Getting School Help Needed Not on file 07/12 Estimated Date of Delivery Comme nts Yes 12/27/2023 Based on Ultraso und Sex and Gender Information Value Date Recorded Sex Assigned at Female 10/05/2020 9:54 PM ACCOUNTING LECTURER Gender Identity Female 10/05/2020 9:54 PM ACCOUNTING LECTURER Sexual Orientation Straight 10/05/2020 9: 54 PM ACCOUNTING LECTURER Last Filed Vital Signs Vital Sign Reading Time Taken Comments Blood Pressure 116/58 10/20/2023 7:18 AM ACCOUNTING LECTURER Pulse 68 07/26/2023 2:39 PM CDT Temperature 36.6 ??C (97.9 ??F) 10/20/2023 7:18 AM CS T Respiratory Rate 16 10/20/2023 7:18 AM ACCOUNTING LECTURER Oxygen Saturation 95% 10/20/2023 5:33 AM ACCOUNTING LECTURER Inhaled Oxygen Concentration - - Weight 114.8 kg (253 lb) 10/19/2023 12:22 PM ACCOUNTING LECTURER Height 165.1 cm (5' 5) 10/19/2023 12:22 PM ACCOUNTING LECTURER Body Mass Index 42.1 10/19/2023 12:22 PM ACCOUNTING LECTURER Plan of Treatment Upcoming Encounters Date Type Department Care Team (Late st Contact Info) Description 04/17/2024 9:00 AM CDT Virtual Visit [facility] [address] [facility] [address] [place] [address] Rocio Mccarthy MD [address] [place] [address] Health Maintenance Due Date Last Done Comments ADVANCE CARE PLANNING 1997 ANNUAL REVIEW OF HM ORDERS 1997 COVID-19 Vaccine (#1) 1997 YEARLY PREVENTIVE VISIT 06/01/2003 06/01/2002, 05/23 HEPATITIS C SCREENING 2015 PAP 2018 MATERNAL SCREENING DISCUSSION 05/31/2023 OBGCT (OB) 09/06/2023 RSV VACCINE ( & 60+) (1 - Risk 1-dose series) 11/01/2023 GROUP B STREP SCREENING 11/29/2023 05/25/2021 TSH W/FREE T4 REFLEX 10/11/2024 10/11/2023, 10/11/2023, 08/23/2023, Additional history exists DTAP/TDAP/TD IMMUNIZATION (8 - Td or Tdap) 05/11/2031 05/11/2021, 09/10/2020, 04/06/2010, Additional history exists HEPATITIS B IMMUNIZATION Completed 998, 01/07/1998, 01/07/1998, Additional history exists IPV IMMUNIZATION Completed 09/20/2002, 08/1998, 03/20/1998, Additional history exists HPV IMMUNIZATION Completed 10/27/2012, , 06/26/2012, Additional history exists MENINGITIS IMMUNIZATION Completed 07/26/2013, 07/26 HIV SCREENING Completed 12/04/2020 CHLAMYDIA SCREENING Discontinued 05/25/2021 INFLUENZA VACCINE Completed 07/21/2023, , 10/14/2022, Additional history exists PHQ-2 (once per calendar year) Completed 10/18/2023, 06/21/2023, 06/21/2023, Additional history exists REPEAT ANTIBODY SCREEN (OB) Completed 10/19/2023, 05/28/2021 Pneumococcal Vaccine: Pediatrics (0 to 5 Years) and At-Risk Patients (6 to 64 Years) Aged Out No longer eligible based on patient's age to complete this topic RSV MONOCLONAL ANTIBODY Aged Out No l onger eligible based on patient's age to complete this topic Procedures Procedure Name Priority Date/Time Associated Diagnosis Comments US OB FOLLOW UP >14 WEEKS STAT 10/20/2023 8:40 AM ACCOUNTING LECTURER URINE CULTURE STAT Add-on 10/19/2023 10:30 PM ACCOUNTING LECTURER ROUTINE UA WITH MICROSCOPIC REFLEX TO CULTURE Routine 10/19/2023 10:30 PM ACCOUNTING LECTURER ABO/RH TYPE AND SCREEN Timed 10/19/2023 1:22 PM ACCOUNTING LECTURER TYPE AND SCREEN, ADULT Timed 10/19/2023 1:22 PM ACCOUNTING LECTURER TSH Routine 10/11/2023 3:40 PM ACCOUNTING LECTURER 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 T3 FREE Routine 10/11/2023 3:40 PM ACCOUNTING LECTURER 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 T4 FREE Routine 10/11/2023 3:40 PM ACCOUNTING LECTURER 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 TSH Routine 08/23/2023 1:26 PM ACCOUNTING LECTURER 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 T3 FREE Routine 08/23/2023 1:26 PM ACCOUNTING LECTURER 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 T4 FREE Routine 08/23/2023 1:26 PM ACCOUNTING LECTURER 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 [facility] US OB TRANSVAGINAL Routine 08/01/2023 11:25 AM CDT History of prior with short cervix, currently Short cervix affecting Encounter for follow-up ultrasound of anatomy [facility] US COMPREHENSIVE SINGLE Routine 07/26/2023 2:32 PM CDT History of prior with short cervix, currently from Last 3 Months Results * US OB >14 Weeks Follow Up (10/20/2023 8:40 AM ACCOUNTING LECTURER) Anatomical Region Laterality Modality Abdomen/Pelvis Ultrasound Impressions 10/20/2023 9:46 AM ACCOUNTING LECTURER IMPRESSION: Single living intrauterine gestation of approximately 28 weeks 4 days gestation is estimated by ultrasound. ??Polyhydramnios. TRACEY FAUST MD SYSTEM ID: ??[id number] Narrative 10/20/2023 9:46 AM ACCOUNTING LECTURER ULTRASOUND OBSTETRIC FOLLOW UP >14 WEEKS October [...] ultrasound. Polyhydramnios. TRACEY FAUST MD SYSTEM ID: [id number] Simon Marcial MD IMG US ORDERABLE S * (ABNORMAL) UA with Microscopic reflex to Culture (10/19/2023 10:30 PM ACCOUNTING LECTURER) Color Urine Straw Colorless, Straw, Light Yellow, Yellow 10/19/2023 10:46 PM ACCOUNTING LECTURER LABORATORY Appearance Urine Clear Clear 10/19/19 24 10:46 PM ACCOUNTING LECTURER LABORATORY Glucose Urine 300(A) Negative mg/dL 10/19/2023 10:46 PM ACCOUNTING LECTURER LABORATORY Bilirubin Urine Negative Negative 10:46 PM ACCOUNTING LECTURER LABORATORY Ketones Urine Negative Negative mg/dL 10/19/2023 10:46 PM ACCOUNTING LECTURER LABORATORY Specific Plato Urine 1.011 1.003 - 1.035 10/19/2023 10:46 PM ACCOUNTING LECTURER LABORATORY Blood Urine Negative Negative 10/19/2023 10:46 PM ACCOUNTING LECTURER LABORATORY pH Urine 5.5 5.0 - 7.0 10/19/2023 10:46 PM ACCOUNTING LECTURER LABORATORY Protein Albumin Urine Negative Negative mg/dL 10/19/2023 10:46 PM ACCOUNTING LECTURER LABORATORY Urobilinogen Urine Normal Normal, 2.0 mg/dL 10/19/2023 10:46 PM ACCOUNTING LECTURER LABORATORY Nitrite Urine Negative Negative 10/19/2023 10:46 PM ACCOUNTING LECTURER LABORATORY Leukocyte Esterase Urine Negative Negative 10/19/2023 10:46 PM ACCOUNTING LECTURER LABORATORY Mucus Urine Present(A) None Seen /LPF 10/19/2023 10:46 PM ACCOUNTING LECTURER LABORATORY RBC Urine 1 <=2 /HPF 10/19/2023 10:46 PM ACCOUNTING LECTURER LABORATORY WBC Urine 2 <=5 /HPF 10/19/2023 10:46 PM ACCOUNTING LECTURER RH LABORATORY Squamous Epithelials Urine 2(H) <=1 /HPF 10/19/2023 10:46 PM ACCOUNTING LECTURER [facility] LABORATORY Urine URINE SPECIMEN OBTAINED BY CLEAN CATCH PROCEDURE / Unknown Non-blood Collection / Unknown 10/19/2023 10:30 PM ACCOUNTING LECTURER 10/19/2023 10:39 PM ACCOUNTING LECTURER Narrative [facility] LABORATORY - 10/19/2023 10:46 PM ACCOUNTING LECTURER Urine Culture not indicated Idalmis Britt MD LAB - URINE ORDERABL ES [facility] LABORATORY [facility] [address] [facility] Lab (1st floor, no room number) [place] [address], [facility] [phone] * Urine Culture (10/19/2023 10:30 PM ACCOUNTING LECTURER) Culture 10,000-50,000 CFU/mL Mixture of Urogenital Daniella 10/21/2023 10:53 AM ACCOUNTING LECTURER [facility] ID[facility] LABORATORY Urine URINE SPECIMEN OBTAINED BY CLEAN CATCH PROCEDURE / Unknown Non-blood Collection / Unknown 10/19/2023 10:30 PM ACCOUNTING LECTURER 10/19/2023 10:39 PM ACCOUNTING LECTURER Idalmis Britt MD LAB - MICRO GENERAL ORDERABLES [facility] IDD LABORATORY [facility] Inf. Diseases Diag. Lab [address] [facility] [place] [address], [place] [phone] * Adult Type and Screen (10/19/2023 1:22 PM ACCOUNTING LECTURER) ABO/RH(D) B POS 10/19/2023 1:12 PM ACCOUNTING LECTURER RH BLOOD BANK Antibody Screen Negative Negative 10/19/2023 1:12 PM ACCOUNTING LECTURER RH BLOOD BANK SPECIMEN EXPIRATION DATE [id number] 10/19/2023 1:12 PM ACCOUNTING LECTURER RH BLOOD BANK Blood STRUCTURE OF RIGHT UPPER LIMB / Unknown Venipuncture / Unknown 10/19/2023 1:22 PM ACCOUNTING LECTURER 10/19/2023 1:27 PM ACCOUNTING LECTURER Lisa Matthew MD LAB - BLOOD BANK DUTCH T ORDER BLOOD [place] [address] * (ABNORMAL) TSH (10/11/2023 3:40 PM ACCOUNTING LECTURER) Only the most recent of2 resultswithin the time period is included. Pathologist [facility] TSH 4.51(H) 0.30 - 4.20 uIU/mL 10/11/2023 10:16 PM ACCOUNTING LECTURER [facility] LABORATORY Blood BLOOD SPECIMEN / Unknown Venipuncture / Unknown 10/11/2023 3:40 PM ACCOUNTING LECTURER 10/11/2023 3:40 PM ACCOUNTING LECTURER Rocio Mccarthy MD LAB - BLOOD ORDER LORNA Performing Organization Address City/[facility]/ZIP Co de Phone Number UU LABORATORY [facility] [place] [facility] [address], [address] [address], [facility] [phone] * T4 free (10/11/2023 3:40 PM ACCOUNTING LECTURER) Only the most recent of2 resultswithin the time period is included. [facility] Free T4 1.05 0.90 - 1.70 ng/dL 10/11/2023 10:16 PM ACCOUNTING LECTURER [facility] LABORATORY Blood BLOOD SPECIMEN / Unknown Venipuncture / Unknown 10/11/2023 3:40 PM ACCOUNTING LECTURER 10/11/2023 3:40 PM ACCOUNTING LECTURER Rocio Mccarthy MD LAB - BLOOD ORDER LORNA U LABORATORY [facility] [place] [facility] [address], [address], [facility] [phone] * T3 Free (10/11/2023 3:40 PM ACCOUNTING LECTURER) Only the most recent of2 resultswithin the time period is included. Pathologist [facility] T3 Free 2.7 2.0 - 4.4 pg/mL 10/11/2023 10:16 PM ACCOUNTING LECTURER [facility] LABORATORY Blood BLOOD SPECIMEN / Unknown Venipuncture / Unknown 10/11/2023 3:40 PM ACCOUNTING LECTURER 10/11/2023 3:40 PM ACCOUNTING LECTURER Rocio Mccarthy MD LAB - BLOOD ORDER LORNA UU LABORATORY [facility] [place] [facility] [address], [address] [place] [address], [facility] [phone] * M US OB Transvaginal (08/01/2023 11:25 AM CDT) [...] ? Study Date: ??08/01/2023 11:06am Pat. NO: ??[id number] ?Referring ??MD: SEGRIO ZACHARIAH Site: ??[facility] ? Medicaid Eligibility Specialist: Ariana Wilkerson [facility] : ??1995 ?Age: ?? 28 ----- INDICATION [...] RAHMAN Study Date: 08/01/2023 11:06am Pat. NO: [id number] Referring MD: JANUARY ZACHARIAH Site: [facility] Medicaid Eligibility Specialist: Ariana Wilkerson RDMS : 1995 Age: 28 [...] stable in length and closed. Anthony MAYER [facility] US ORDERABL ES * [facility] US Comprehensive Single (07/26/2023 2:32 PM CDT) [...] ? Study Date: ??07/26/2023 1:18pm Pat. NO: ??[id number] ?Referring ??MD: JANUARY ZACHARIAH Site: ??[facility] ? Medicaid Eligibility Specialist: Phylicia Perkins RDMS : ??1995 ?Age: ?? [...] ? 0 lb 7 ?oz EFW by ?Kelsy (QET-CA-NL-FL) Head / Face / Neck Biometry: Brake Operator Heavy Duty ? 5.4 ? mm CM ?5.3 ? [...] view. Superior vena cava. Inferior vena cava. 9-llcaio-exwvpxy view. Cardiac ? position. Cardiac size. Cardiac [...] ?Visualized Left Ovary ?Visualized CONSULTATION ----- Type: [facility] CONSULTATION I was asked to see Taylor [...] week up to 24 weeks (ordered at [facility] in 1 and 2 weeks). 3) We would offer a cerclage if the cervix became < 10 mm or was dilated prior to 24 weeks. 4) In addition we will reassess the anatomy at [facility] in 2 weeks. For the history of [...] RAHMAN Study Date: 07/26/2023 1:18pm Pat. NO: [id number] Referring MD: SERGIO SONI Site: [facility] Medicaid Eligibility Specialist: Phylicia Perkins RDMS : 1995 Age: 28 [...] d18 w + 0 d 12/27/2023 U/S 3based upon AC, BPD, Femur, HC17 w + [...] 0 lb 7 oz EFW by Hadlock (DQP-FX-WQ-FL) Head / Face / Neck Biometry: Brake Operator Heavy Duty 5.4 mm CM 5.3 mm Nasal bone [...] arch view. Superior vena cava. Inferior vena cava.0-ikzrzf-hemkmwe view. Cardiac position. Cardiac size. Cardiacrhythm. Right [...] Visualized Left Ovary Visualized CONSULTATION ----- Type: [facility] CONSULTATION I was asked to see Taylor [...] week up to 24 weeks (ordered at [facility] in 1 and2 weeks). 3) We would offer a cerclage if the cervix became < 10 mm or was dilatedprior to 24 weeks. 4) In addition we will reassess the anatomy at [facility] in 2 weeks. For the history of [...] consultation section for further counseling. Return to [facility] for continued care. Thank-you for the opportunity [...] cervical length with no funneling noted. Candice [facility] LES from Last 3 Months Advance Directives For more information, please contact: [phone] Latest Code Status on File Code Status [...] with patient/ legal decision maker Care Teams Computer Terminal Operator Relationship Specialty Start Date End Date Billie Guadarrama PCP - General 12/17/19 Rocio Mccarthy MD [address] [place] [address] Assigned Endocrinology Provider 7/16/22 Erica Tristan MD [address] [address] Assigned OBGYN Provider 08/06/23
--- OUTSIDE RECORDS SUMMARY | 2023-10-24 01:22 | XMS_ITS | Encounter Summary ---
Author Name Unknown Organization [facility] Address [address] [place] [address]. [place] [address] Care Team Providers Care Knuckle Bender Name Role Phone Chiara Billie Primary Care Provider [phone] Rocio Mccarthy MD Unavailable [phone] Erica Tristan MD Unavailable [phone] Encounter Details Date Type Department Care Team (Latest Contact Info) Description 10/11/2023 Travel Social History Tobacco Use Types Packs/Day [...] Sex Assigned at Female 10/05/2020 9:54 PM RUGBY LEAGUE FOOTBALLER Gender Identity Female 10/05/2020 9:54 PM RUGBY LEAGUE FOOTBALLER Sexual Orientation Straight 10/05/2020 9: 54 PM RUGBY LEAGUE FOOTBALLER documented as of this encounter Plan of Treatment Upcoming Encounters Date Type Department Care Team ( Contact Info) Description 04/17/2024 9:00 AM CDT Virtual Visit [facility] [address] [place] [address] Rocoi Mccarthy MD [address] [place] [address] documented as of this encounter Visit Diagnoses Not on filedocumented in this encounter Additional Health Concerns Assessment Noted Time PHQ-9 Depression Total Score: 11 023 10:04 AM CDT documented as of this encounter Care Teams Knuckle Bender Relationship Specialty Start Date End Date Billie Guadarrama PCP - General 12/17/19 Rocio Mccarthy MD [address] [place] [address] Assigned Endocrinology Provider 04/24/22 Erica Tristan MD [address] [place] [address] Assigned OBGYN Provider 08/06/23 documented as of this encounter
--- OUTSIDE RECORDS SUMMARY | 2023-10-24 01:23 | XMS_ITS | Encounter Summary ---
Author Name Unknown Organization [facility] Address [address] [place] [address]. [place] [address] Care Team Providers Care Semiautomatic Taper Operator Name Role Phone Chiara Billie Primary Care Provider [phone] Rocio Mccarthy MD Unavailable [phone] Reason for Visit * Reason Comments Ultrasound L2/TV-Hx PTL with te rm delivery, BMI 34 Consult Hx PTL with term del elaine, BMI 34 Encounter Details Date Type Department Care Team (Late st Contact Info) Description 07/19/2023 PRE VISIT [facility] [place] [address] [facility] [address] [place] [address] Paula Royal RN Ultrasound (L2/TV-Hx PTL with term delivery, BMI 34); Consult (Hx PTL with term delivery, BMI 34) Social History Tobacco Use Types Packs/Day Years [...] Sex Assigned at Female 10/05/2020 9:54 PM MARKETING PROFESSOR Gender Identity Female 10/05/2020 9:54 PM MARKETING PROFESSOR Sexual Orientation Straight 10/05/2020 9: 54 PM MARKETING PROFESSOR documented as of this encounter Plan of Treatment Upcoming Encounters Date Type Department Care Team (Late st Contact Info) Description 04/17/2024 9:00 AM CDT Virtual Visit [facility] [address] [facility] [address] [place] [address] Rocio Mccarthy MD [address] [place] [address] documented as of this encounter Visit Diagnoses Not on filedocumented in this encounter Additional Health Concerns Assessment Noted Time PHQ-9 Depression Total Score: 11 023 10:04 AM CDT documented as of this encounter Care Teams Semiautomatic Taper Operator Relationship Specialty Start Date End Date Billie Guadarrama PCP - General 12/17/19 Rocio Mccarthy MD [address] [place] [address] Assigned Endocrinology Provider 04/24/22 documented as of this encounter
--- OUTSIDE RECORDS SUMMARY | 2023-10-24 01:23 | XMS_ITS | Encounter Summary ---
Author Name Unknown Organization [place] Address [address] [place] [address]. [place] [address] Care Team Providers Care Program Eligibility Specialist Name Role Phone Billie Guadarrama Primary Care Provider [phone] Rocio Mccarthy MD Unavailable Reason for Visit * Reason Comments Ultrasound TV-short cervix Encounter Details Date Type Department Care Team (Late st Contact Info) Description 08/01/2023 11:30 AM CDT Office Visit [facility] [place] [address] [facility] [address] [place] [address] Anthony Shaffer MD [address] [place], [place] [address] Erica Tristan MD [address] [place], [place] [address] Short cervix affecting (Primary Dx); History of prior with short cervix, currently Social History Tobacco Use Types Packs/Day Years [...] Sex Assigned at Female 10/05/2020 9:54 PM CADDY PACKER Gender Identity Female 10/05/2020 9:54 PM CADDY PACKER Sexual Orientation Straight 10/05/2020 9: 54 PM CADDY PACKER documented as of this encounter Progress Notes * Erica Tristan MD - 08/01/2023 11:30 AM CDT The patient was seen for an ultrasound in the Maternal[facility] Center at the [facility] today. For a detailed report of the ultrasound examination, please see the ultrasound report which can be found under the imaging tab. If you have questions regarding today's evaluation or if we can be of further service, please contact the Maternal- Medicine Center. Erica Tristan MD Hand I Blocker, HOSTED SERVICES ANALYST Maternal- Medicine [phone] (Pager) documented in this encounter Plan of Treatment Upcoming Encounters Date Type Department Care Team (Late st Contact Info) Description 04/17/2024 9:00 AM CDT Virtual Visit [facility] [address] [facility] [address] [place] [address] Rocio Mccarthy MD [address] [place] [address] documented as of this encounter Visit Diagnoses Diagnosis Short cervix affecting - Primary Cervical shortening, unspecified as to episode of care or not applicable History of prior with short cervix, currently documented in this encounter Additional Health Concerns Assessment Noted Time PHQ-9 Depression Total Score: 11 023 10:04 AM CDT documented as of this encounter Care Teams Program Eligibility Specialist Relationship Specialty Start Date End Date Billie Guadarrama PCP - General 12/17/19 Rocio Mccarthy MD [address] [place] [address] [address] [place] [address] Assigned Endocrinology Provider 04/24/22 documented as of this encounter
--- OUTSIDE RECORDS SUMMARY | 2023-10-24 01:23 | XMS_ITS | Encounter Summary ---
Author Name Unknown Organization [place] Address [address] [place] [address]. 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 No / Unsure 06/07/2023 3:26 PM CDT documented as of this encounter Miscellaneous Notes * Telephone Encounter - Rocio Mccarthy MD - 06/15/2023 5:03 PM CDT Thyroid dose needs to be adjusted multiple times during secondary to weight changes and hormonal changes. If you are taking 150 mcg for last > 4 weeks and the recent labs were drawn (TSH 8.0)on this dose then recommend to increase dose--take levothyroxine 175 mcg/day Please send new prescription for levothyroxine. Repeat labs in 4 to 6 weeks. Follow-up as scheduled. TSH Date Value Ref Range Status 06/07/2023 4.86 (H) 0.30 - 4.20 uIU/mL Final 06/21/2022 1.13 0.40 - 4.00 mU/L Final 05/21/2020 0.48 0.40 - 4.00 mU/L Final * Telephone Encounter - Jina Harrell RN - 06/14/2023 2:53 PM CDT Please see Patient's mychart message and advise * Telephone Encounter - Rocio Mccarthy MD - 06/14/2023 2:25 PM CDT 06/08/23 labs at outside clinic: TSH 8.73, Ft4 0.92. I do not have the reference range from that clinic. In typically dose is increased ( wt gain and hormonal changes) Recommend to increase dose to 137 mcg/day ( from 125) Labs in 6 weeks. Please send new Rx and place labs. Please make a lab appointment for blood work and follow up clinic appointment in 1 week after that to discuss results. documented in this encounter Plan of Treatment Upcoming Encounters Date Type Department Care Team (Late st Contact Info) Description 04/17/2024 9:00 AM CDT Virtual Visit [facility] [address] [place] [phone] Rocio Mccarthy MD [address] [place] [address] documented as of this encounter Visit Diagnoses Diagnosis 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- Primary documented in this encounter Care Teams Winch Derrick Operator Relationship Specialty Start Date End Date Billie Guadarrama PCP - General 12/17/19 Rocio Mccarthy MD [address] [place] [address] Assigned Endocrinology Provider 04/24/22 Erica Tristan MD [address] [place] [address] Assigned OBGYN Provider 08/06/23 documented as of this encounter
--- OUTSIDE RECORDS SUMMARY | 2023-10-24 01:23 | XMS_ITS | Encounter Summary ---
Author Name Unknown Organization [place] Address [address] [place] [address]. [place] [address] Care Team Providers Care Knockdown Worker Name Role Phone Billie Guadarrama Primary Care Provider [phone] Rocio Mccarthy MD Unavailable [phone] Reason for Visit * Reason Comments RECHECK Video Visit Encounter Details Date Type Department Care Team (Latest Contact Info) Description 06/21/2023 10:30 AM CDT Virtual Visit [facility] [address] [facility] [address] [place] [address] Rocio Mccarthy MD [address] [facility] [address] [place] [address] 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 [...] Answer Date Recorded PHQ-2 Score 4 06/21/2023 Estimated Date of Delivery Comme nts Yes 12/27/2023 Based on Ultraso und Sex and Gender Information Value Date Recorded Sex Assigned at Female 10/05/2020 9:54 PM MATERIALS PLANNING MANAGER Gender Identity Female 10/05/2020 9:54 PM MATERIALS PLANNING MANAGER Sexual Orientation Straight 10/05/2020 9: 54 PM MATERIALS PLANNING MANAGER COVID-19 Exposure Response Date Recorded In the last 10 days, have yo u been in contact with someone who was confirmed or suspected to have Coronavirus/COVID-19? No / Unsure 06/07/2023 3:26 PM CDT documented as of this encounter Last Filed Vital Signs Vital Sign Reading Time Taken Comments Blood Pressure - - Pulse - - Temperature - - Respiratory Rate - - Oxygen Saturation - - Inhaled Oxygen Concentration - - Weight 95.7 kg (211 lb) 06/21/2023 10:02 AM CDT Height - - Body Mass Index 35.11 03/28/2021 1:20 AM CDT documented in this encounter Patient Instructions * Patient Instructions* Rocio Mccarthy MD - 06/21/2023 10:30 AM CDT [facility] [address] Mccarthy, Endocrinology Department [address] [place] [address] Appointment [phone] [place]: Tuesday - Continue levothyroxine 175 mcg/day. Labs in 4-6 weeks since time of dose adjustment. Recommend close follow-up during --recommend lab every 2-3 months during or sooner based on dose adjustment given history of fluctuating labs she needs close follow-up. Follow-up with endocrinology after delivery. Take Levothyroxine on an empty stomach. Take [...] it. documented in this encounter Progress Notes * Kendra Baltazar - 06/21/2023 10:30 AM CDT Depression Response Patient completed the PHQ-9 assessment for depression and scored >9? Yes Question 9 on the PHQ-9 was positive for suicidality? No Does patient have current mental health provider? Yes Is this a virtual visit? Yes Does patient have suicidal ideation (positive question 9)? No - offer to place Mental Health Referral. Patient declined referral/not needed I personally notified the following: visit provider * Rocio Mccarthy MD - 06/21/2023 10:30 AM CDT THIS IS A VIDEO VISIT: Phone call visit/virtual visit encounter: Name of patient: Altagracia Garcia Date of encounter: 06/21/2023 Time of start of video visit: 10:33 Video started: 10:41 Video ended: 10:51 Provider location: working from home/ [facility] Patient location: patients home. Mode [...] up hypothyroidism. HPI: Altagracia Garcia is a 27 year old female who presents for the evaluation of : Was requested to see endocrinology by her SHEEP BONER from [place]. Available records, labs and images from outside clinic were personally reviewed. Currently . MILES: December 2023. Gained 5 lbs so far. #1 Hypothyroidism (+TPO): Diagnosed with Duane in 2012 and was started on levothyroxine 100 mcg/day. Currently taking generic 175 mcg/day. On this dose X 06/15/2023. ( Dose was gradually increased during this ) Takes generic. Reports compliance. Feeling tires- getting worse. Energy is up and down. H/o fibromyalgia and PCOS. Feels like something is stuck in throat when eating. Has discomfart. Thyroid US 05/2022- unremarkable- no discrete thyroid nodules were seen. Palpitations: No Changes to hair or skin: No. Diarrhea/Constipation: sometimes constipation. h/o cholecystectomy. Stable. Changes in menses: + Currently . Dysphagia or Shortness of breath:sometimes Tremors:No Changes in weight: as noted above. Heat or cold intolerance: sometimes cold History of [place]in or Amiodarone use:No Head or neck surgery/radiation:No Family History of Thyroid Problems: pgm- thyroid problems. Weight is stable. PMH/PSH: Past Medical History: Diagnosis Date Depressive disorder anxiety & depression; takes medication - venlafaxine Diabetes (H) 03/10/2021 GDM Fibromyalgia 2012 PCOS (polycystic ovarian syndrome) 2013 Thyroid disease hashimotos; takes synthroid Past Surgical History: Procedure Laterality Date ABDOMEN SURGERY 2016 galbladder removed ENT SURGERY 2015 tonsils, adenoids, wisdom teeth EMERGENCY [facility] EMT SURGERY 2019 ovarian cyst removed HEAD & [...] list which includes the following prescription(s): levothyroxine, aspirin,levothyroxine, levothyroxine, metformin, phentermine, and vit-fe fumarate-fa. ROS ROS: 10 point ROS neg other than the symptoms noted above in the HPI. Physical Exam VS: Wt 95.7 kg (211 lb) BMI 35.11 kg/m?? GENERAL: healthy, alert and no distress EYES: [...] appearance well-groomed LABS: TFTs: Latest Ref Rng 06/07/2023 3:33 PM ENDO THYROID LABS-[facility] TSH 0.30 - 4.20 uIU/mL 4.86 (H) Free T3 2.0 - 4.4 pg/mL 2.4 T3, Reverse ng/dL 9.0 - 27.0 ng/dL FREE T4 0.90 - 1.70 ng/dL 1.03 Thyroid US 04/2020: IMPRESSION: 1. Heterogeneity of [...] treatment options of condition with pt. Continue levothyroxine 175 mcg/day. Labs in 4-6 weeks since time of dose adjustment. Recommend close follow-up during --recommend lab every 2-3 months during or sooner based on dose adjustment given history of fluctuating labs she needs close follow-up. Follow-up with endocrinology after delivery. Discussed s/s of hypothyroidism and hyperthyroidism to watch for. The patient indicates understanding of these issues and agrees with the plan. Follow-up: After delivery Rocio Mccarthy MD Endocrinology [facility] CC: Billie Guadarrama All questions were answered. The patient indicates understanding of the above issues and agrees with the plan set forth. documented in this encounter Nursing Notes * Kendra Baltazar - 06/21/2023 10:30 AM CDT Is the patient currently in the state of [place]? YES Visit mode:VIDEO If the visit is dropped, the patient can be reconnected by: VIDEO VISIT: Text to cell phone: Telephone Information: Will anyone else be joining the visit? NO (If patient encounters technical issues they should call [phone]) How would you like to obtain your AVS? MyChart Are changes needed to the allergy or medication list? No Reason for visit: RECHECK and Video Visit Kendra Baltazar VVF documented in this encounter Plan of Treatment Upcoming Encounters Date Type Department Care Team (Late st Contact Info) Description 04/17/2024 9:00 AM CDT Virtual Visit [facility] [address] [place] [address] Rocio Mccarthy MD [address] [place] [address] Scheduled Orders Name Type Priority Associated Diagnoses Orde r Schedule T4 free Lab Routine 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 every 2 months for 4 Occurrences starting 06/21/2023 until 06/21/2024, 2 completed T3 Free Lab Routine 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 every 2 months for 4 Occurrences starting 06/21/2023 until 06/21/2024, 2 completed TSH Lab Routine 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 every 2 months for 4 Occurrences starting 06/21/2023 until 06/21/2024, 2 completed documented as of this encounter Results * (ABNORMAL) TSH (10/11/2023 3:40 PM MATERIALS PLANNING MANAGER) TSH 4.51(H) 0.30 - 4.20 uIU/mL 10/11/2023 10:16 PM MATERIALS PLANNING MANAGER [facility] Blood BLOOD SPECIMEN / Unknown Venipuncture / Unknown 10/11/2023 3:40 PM MATERIALS PLANNING MANAGER 10/11/2023 3:40 PM MATERIALS PLANNING MANAGER Rocio Mccarthy MD LAB - BLOOD ORDER [facility] Core Lab [address] [facility], [address] [address], [facility] [phone] * T3 Free (10/11/2023 3:40 PM MATERIALS PLANNING MANAGER) T3 Free 2.7 2.0 - 4.4 pg/mL 10/11/2023 10:16 PM MATERIALS PLANNING MANAGER [facility] Blood BLOOD SPECIMEN / Unknown Venipuncture / Unknown 10/11/2023 3:40 PM MATERIALS PLANNING MANAGER 10/11/2023 3:40 PM MATERIALS PLANNING MANAGER Rocio Mccarthy MD LAB - BLOOD ORDER LOR[facility] [place] Core Lab [address] [facility], [address] [phone], [facility] [phone] * T4 free (10/11/2023 3:40 PM MATERIALS PLANNING MANAGER) Free T4 1.05 0.90 - 1.70 ng/dL 10/11/2023 10:16 PM MATERIALS PLANNING MANAGER [facility] Blood BLOOD SPECIMEN / Unknown Venipuncture / Unknown 10/11/2023 3:40 PM MATERIALS PLANNING MANAGER 10/11/2023 3:40 PM MATERIALS PLANNING MANAGER Rocio Mccarthy MD LAB - BLOOD ORDER [facility] Core Lab [address] [facility], [address] [phone], [facility] [phone] * TSH (08/23/2023 1:26 PM MATERIALS PLANNING MANAGER) TSH 2.58 0.30 - 4.20 uIU/mL 08/24/2023 4:01 AM MATERIALS PLANNING MANAGER [facility] Blood BLOOD SPECIMEN / Unknown Venipuncture / Unknown 08/23/2023 1:26 PM MATERIALS PLANNING MANAGER 08/23/2023 1:26 PM MATERIALS PLANNING MANAGER Rocio Mccarthy MD LAB - BLOOD ORDER [facility] Core Lab [address] [facility], [address] [address], [facility] [phone] * T3 Free (08/23/2023 1:26 PM MATERIALS PLANNING MANAGER) T3 Free 2.7 2.0 - 4.4 pg/mL 08/24/2023 4:01 AM MATERIALS PLANNING MANAGER [facility] Blood BLOOD SPECIMEN / Unknown Venipuncture / Unknown 08/23/2023 1:26 PM MATERIALS PLANNING MANAGER 08/23/2023 1:26 PM MATERIALS PLANNING MANAGER Rocio Mccarthy MD LAB - BLOOD ORDER [facility] [place] Core Lab [address] [facility], [address] [place] [address], [facility] [phone] * T4 free (08/23/2023 1:26 PM MATERIALS PLANNING MANAGER) Free T4 1.16 0.90 - 1.70 ng/dL 08/24/2023 4:01 AM MATERIALS PLANNING MANAGER [facility] Blood BLOOD SPECIMEN / Unknown Venipuncture / Unknown 08/23/2023 1:26 PM MATERIALS PLANNING MANAGER 08/23/2023 1:26 PM MATERIALS PLANNING MANAGER Rocio Mccarthy MD LAB - BLOOD ORDER [facility] Core Lab [address] [facility], [address] [address], [facility] [phone] documented in this encounter Visit Diagnoses Diagnosis 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- Primary , incidental state, incidental documented in this encounter Additional Health Concerns Assessment Noted Time PHQ-9 Depression Total Score: 11 023 10:04 AM CDT documented as of this encounter Care Teams Knockdown Worker Relationship Specialty Start Date End Date Billie Guadarrama PCP - General 12/17/19 Rocio Mccarthy MD [address] [facility] [address] [place] [address] Assigned Endocrinology Provider 04/24/22 documented as of this encounter
--- OUTSIDE RECORDS SUMMARY | 2023-10-24 01:23 | XMS_ITS | Encounter Summary ---
Author Name Unknown Organization [facility] Address [address] [place] [address]. [place] [address] Care Team Providers Care Summer Camp Counselor Name Role Phone Selinsusan Billie Primary Care Provider [phone] Rocio Mccarthy MD Unavailable [phone] Encounter Details Date Type Department Care Team (Latest Contact Info) Description 07/26/2023 Travel Social History Tobacco Use Types Packs/Day [...] Sex Assigned at Female 10/05/2020 9:54 PM GREEN WARE CASTER Gender Identity Female 10/05/2020 9:54 PM GREEN WARE CASTER Sexual Orientation Straight 10/05/2020 9: 54 PM GREEN WARE CASTER documented as of this encounter Plan of Treatment Upcoming Encounters Date Type Department Care Team ( Contact Info) Description 04/17/2024 9:00 AM CDT Virtual Visit [place] [address] [place] [phone] Rocio Mccarthy MD [address] [place], [place] [address] documented as of this encounter Visit Diagnoses Not on filedocumented in this encounter Additional Health Concerns Assessment Noted Time PHQ-9 Depression Total Score: 11 023 10:04 AM CDT documented as of this encounter Care Teams Summer Camp Counselor Relationship Specialty Start Date End Date Billie Guadarrama PCP - General 12/17/19 Rocio Mccarthy MD [address] [place] [address] Assigned Endocrinology Provider 04/24/22 documented as of this encounter
--- OUTSIDE RECORDS SUMMARY | 2023-10-24 01:23 | XMS_ITS | Encounter Summary ---
Author Name Unknown Organization [place] [facility] Address [address] [place] [address]. [place] [address] Care Team Providers Care Imaging Account Manager Name Role Phone Selinsusan Billie Primary Care Provider [phone] Rocio Mccarthy MD Unavailable [phone] Erica Tristan MD Unavailable [phone] Encounter Details Date Type Department Care Team (Late st Contact Info) Description 08/23/2023 1:30 PM DINING SERVICES DIRECTOR Lab [facility] Laboratory [address] [facility] [address] [place] [address] 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 [...] Sex Assigned at Female 10/05/2020 9:54 PM DINING SERVICES DIRECTOR Gender Identity Female 10/05/2020 9:54 PM DINING SERVICES DIRECTOR Sexual Orientation Straight 10/05/2020 9: 54 PM DINING SERVICES DIRECTOR documented as of this encounter Miscellaneous Notes * Result Encounter Note - Rocio Mccarthy MD - 08/23/2023 1:30 PM DINING SERVICES DIRECTOR Altagracia Recently done endocrinology lab test/ imaging test showed: Thyroid labs are in acceptable range. How many weeks are you so far? How are you feeling? Here is a copy for your records. Follow up as discussed in last clinic visit. Please call endocrinology clinic ) if questions. Rocio Mccarthy MD Endocrinology [facility] August 24, 2023 NG SERVICES DIRECTOR documented in this encounter Plan of Treatment Upcoming Encounters Date Type Department Care Team (Late st Contact Info) Description 04/17/2024 9:00 AM CDT Virtual Visit [facility] [address] [facility] [address] [place] [address] Rocio Mccarthy MD [address] [place] [address] documented as of this encounter Procedures Procedure Name Priority Date/Time Associated Diagnosis Comments TSH Routine 08/23/2023 1:26 PM DINING SERVICES DIRECTOR 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 T4 FREE Routine 08/23/2023 1:26 PM DINING SERVICES DIRECTOR 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 T3 FREE Routine 08/23/2023 1:26 PM DINING SERVICES DIRECTOR 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 documented in this encounter Results * TSH (08/23/2023 1:26 PM DINING SERVICES DIRECTOR) TSH 2.58 0.30 - 4.20 uIU/mL 08/24/2023 4:01 AM DINING SERVICES DIRECTOR [facility] Blood BLOOD SPECIMEN / Unknown Venipuncture / Unknown 08/23/2023 1:26 PM DINING SERVICES DIRECTOR 08/23/2023 1:26 PM DINING SERVICES DIRECTOR Rocio Mccarthy MD LAB - BLOOD ORDER [facility] Lab [address] [facility], [address] [address], [facility] [phone] * T3 Free (08/23/2023 1:26 PM DINING SERVICES DIRECTOR) T3 Free 2.7 2.0 - 4.4 pg/mL 08/24/2023 4:01 AM DINING SERVICES DIRECTOR [facility] Blood BLOOD SPECIMEN / Unknown Venipuncture / Unknown 08/23/2023 1:26 PM DINING SERVICES DIRECTOR 08/23/2023 1:26 PM DINING SERVICES DIRECTOR Rocio Mccarthy MD LAB - BLOOD ORDER LORNA Performing Organization Address City/[facility]/ZIP Co de Phone Number [facility] [address] [facility], [address] [address], [facility] [phone] * T4 free (08/23/2023 1:26 PM DINING SERVICES DIRECTOR) Free T4 1.16 0.90 - 1.70 ng/dL 08/24/2023 4:01 AM DINING SERVICES DIRECTOR [facility] Blood BLOOD SPECIMEN / Unknown Venipuncture / Unknown 08/23/2023 1:26 PM DINING SERVICES DIRECTOR 08/23/2023 1:26 PM DINING SERVICES DIRECTOR Rocio Mccarthy MD LAB - BLOOD ORDER L[facility] Lab [address] [facility], [address] [address], [facility] [phone] documented in this encounter Visit Diagnoses Diagnosis 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 documented in this encounter Additional Health Concerns Assessment Noted Time PHQ-9 Depression Total Score: 11 06/21/ 023 10:04 AM CDT documented as of this encounter Care Teams Imaging Account Manager Relationship Specialty Start Date End Date Billie Guadarrama PCP - General 12/17/19 Rocio Mccarthy MD [address] [place] [address] Assigned Endocrinology Provider 04/24/22 Erica Tristan MD [address] [place], [place] [address] Assigned OBGYN Provider 08/06/23 documented as of this encounter
--- OUTSIDE RECORDS SUMMARY | 2023-10-24 01:23 | XMS_ITS | Encounter Summary ---
Author Name Unknown Organization [facility] Address [address] [place] [address]. [place] [address] Care Team Providers Care Director Funds Development Name Role Phone Billie Guadarrama Primary Care Provider [phone] Rocio Mccarthy MD Unavailable [phone] Reason for Visit * Reason Onset Date Comments Medication Compliance Issues 06/16/2023 (SY NTHROID/LEVOTHROID) 175 MCG tablet Encounter Details Date Type Department Care Team (Late st Contact Info) Description 06/16/2023 Telephone [facility] [address] [place] [address] Rocio Mccarthy MD [address] [place] [address] Medication Compliance Issues ((SYNTHROID/LEVOTHROID) 175 MCG tablet) Social History Tobacco Use Types Packs/Day Years [...] 10/2019 PHQ-2 Answer Date Recorded PHQ-2 Score 2 06/29/2022 Sex and Gender Information Value Date Recorded Sex Assigned at Female 10/05/2020 9:54 PM ANESTHESIOLOGY TECH Gender Identity Female 10/05/2020 9:54 PM ANESTHESIOLOGY TECH Sexual Orientation Straight 10/05/2020 9: 54 PM ANESTHESIOLOGY TECH COVID-19 Exposure Response Date Recorded In the last 10 days, have yo u been in contact with someone who was confirmed or suspected to have Coronavirus/COVID-19? No / Unsure 06/07/2023 3:26 PM CDT documented as of this encounter Miscellaneous Notes * Telephone Encounter - Jina Harrell RN - 06/16/2023 9:42 AM CDT Pt is - pt has labs rechecked every month. 137 mcg is incorrect, as provider was unaware that another provider increased her dosage to 150. Pt should now be on 175 mcg. Spoke to pharmacy and informed of above. Pharmacy verbalized understanding and will fill the 175 mcg. * Telephone Encounter - Little Estrada - 06/16/2023 9:27 AM CDT [facility] Call Center Phone Message May a detailed message be left on voicemail: yes Reason for Call: Medication Question or concern regarding medication Prescription Clarification Name of Medication: (SYNTHROID/LEVOTHROID) 175 MCG tablet Prescribing Provider: Pharmacy: [facility] [address] [place] [address] What on the order needs clarification? For the medication above there has been many diff dosage within one moth time frame from 150 MCG to137 MCG and now 175 MCG. Per pharmacy would like a clarification. Please call back. Thank you! Action Taken: Message routed to: [facility] ENDO Travel Screening: Not Applicable documented in this encounter Plan of Treatment Upcoming Encounters Date Type Department Care Team (Late st Contact Info) Description 04/17/2024 9:00 AM CDT Virtual Visit [place] [address] [facility] [address] [place] [address] Rocio Mccarthy MD [address] [place] [address] documented as of this encounter Visit Diagnoses Not on filedocumented in this encounter Care Teams Director Funds Development Relationship Specialty Start Date End Date Billie Guadarrama PCP - General 12/17/19 Rocio Mccarthy MD [address] [facility] [address] [place] [address] Assigned Endocrinology Provider 04/24/22 documented as of this encounter
--- OUTSIDE RECORDS SUMMARY | 2023-10-24 01:23 | XMS_ITS | Encounter Summary ---
Author Name Unknown Organization [facility] Address [address] [place] [address]. [place] [address] Care Team Providers Care Registered Nurse Fetal Name Role Phone Selinsusan Billie Primary Care Provider [phone] Rocio Mccarthy MD Unavailable [phone] Encounter Details Date Type Department Care Team (Latest Contact Info) Description 06/07/2023 Travel Social History Tobacco Use Types Packs/Day [...] Sex Assigned at Female 10/05/2020 9:54 PM QUOTATION CLERK Gender Identity Female 10/05/2020 9:54 PM QUOTATION CLERK Sexual Orientation Straight 10/05/2020 9: 54 PM QUOTATION CLERK COVID-19 Exposure Response Date Recorded In the last 10 days, have yo u been in contact with someone who was confirmed or suspected to have Coronavirus/COVID-19? No / Unsure 06/07/2023 3:26 PM CDT documented as of this encounter Plan of Treatment Upcoming Encounters Date Type Department Care Team ( st Contact Info) Description 04/17/2024 9:00 AM CDT Virtual Visit [facility] [address] [place] [address] Rocio Mccarthy MD [address] [place] [address] documented as of this encounter Visit Diagnoses Not on filedocumented in this encounter Care Teams Registered Nurse Fetal Relationship Specialty Start Date End Date Billie Guadarrama PCP - General 12/17/19 Rocio Mccarthy MD [address] [place] [address] Assigned Endocrinology Provider 04/24/22 documented as of this encounter
--- OUTSIDE RECORDS SUMMARY | 2023-10-24 01:23 | XMS_ITS | Encounter Summary ---
Author Name Unknown Organization [facility] Address [address] [place] [address]. [place] [address] Care Team Providers Care Manual Arts Teacher Name Role Phone Billie Guadarrama Primary Care Provider Rocio Mccarthy MD Unavailable [phone] Erica Tristan MD Unavailable [phone] Encounter Details Date Type Department Care Team (Late st Contact Info) Description 08/15/2023 MyC Medical Advice [facility] [address] [place] [address] Rocio Mccarthy MD [address] [place] [address] Social History Tobacco Use Types [...] Sex Assigned at Female 10/05/2020 9:54 PM STRUCTURAL DESIGN ENGINEER Gender Identity Female 10/05/2020 9:54 PM STRUCTURAL DESIGN ENGINEER Sexual Orientation Straight 10/05/2020 9: 54 PM STRUCTURAL DESIGN ENGINEER documented as of this encounter Miscellaneous Notes * Telephone Encounter - Jina Harrell RN - 08/15/2023 9:07 AM STRUCTURAL DESIGN ENGINEER Recommend close follow-up during --recommend lab every 2-3 months during or sooner based on dose adjustment given history of fluctuating labs she needs close follow-up. Follow-up with endocrinology after delivery. CTURAL DESIGN ENGINEER documented in this encounter Plan of Treatment Upcoming Encounters Date Type Department Care Team (Late st Contact Info) Description 04/17/2024 9:00 AM CDT Virtual Visit [facility] [address] [place] [address] Rocio Mccarthy MD [address] [place] [address] documented as of this encounter Visit Diagnoses Not on filedocumented in this encounter Additional Health Concerns Assessment Noted Time PHQ-9 Depression Total Score: 11 023 10:04 AM CDT documented as of this encounter Care Teams Manual Arts Teacher Relationship Specialty Start Date End Date Billie Guadarrama PCP - General 12/17/19 Rocio Mccarthy MD [address] [place], [place] [address] Assigned Endocrinology Provider 04/24/22 Erica Tristan MD [address] [place], [place] [address] Assigned OBGYN Provider 08/06/23 documented as of this encounter
--- OUTSIDE RECORDS SUMMARY | 2023-10-24 01:23 | XMS_ITS | Encounter Summary ---
Author Name Unknown Organization [facility] Address [address] [place] [address] Care Team Providers Care Manager Engagement Name Role Phone Billie Guadarrama Primary Care Provider [phone] Rocio Mccarthy MD Unavailable [phone] Reason for Referral * Diagnostic Imaging Ultrasound (Routine) - Pending Review Specialty Diagnoses / Procedures Referred By Emily douglas Referred To Contact Radiology. Diagnoses History of prior with short cervix, currently Short cervix affecting Encounter for follow-up ultrasound of anatomy Procedures MFM US OB Transvaginal Anthony Shaffer MD [address] [place] [address] Referral ID Status Reason Start Date Expiration Date V isits Requested Visits Authorized [id number] Pending Review 07/26/2023 07/25/2024 1 1 Reason for Visit * Reason Comments Ultrasound L2-Hx PTL with term delivery Consult Hx PTL with term del elaine * Consultation (Routine: Next available opening) - Pending Review Specialty Diagnoses / Procedures Referred By Emily douglas Referred To Contact Diagnoses History of prior with short cervix, currently Candice Conti MD [id number] [place] [address] Referral ID Status Reason Start Date Expiration Date V isits Requested Visits Authorized [id number] Pending Review 05/17/2023 05/16/2024 1 1 Encounter Details Date Type Department Care Team (Late st Contact Info) Description 07/26/2023 2:15 PM CDT Office Visit [facility] [place] [address] [place] [address] Candice Conti MD [address] [place] [address] Anthony Shaffer MD [address] [place] [address] Obesity affecting , antepartum, unspecified obesity type (Primary Dx); History of prior with short cervix, currently ; Short cervix affecting ; Encounter for follow-up ultrasound of anatomy Social History Tobacco Use Types Packs/Day Years [...] Sex Assigned at Female 10/05/2020 9:54 PM TILE INSPECTOR Gender Identity Female 10/05/2020 9:54 PM TILE INSPECTOR Sexual Orientation Straight 10/05/2020 9: 54 PM TILE INSPECTOR documented as of this encounter Last Filed Vital Signs Vital Sign Reading Time Taken Comments Blood Pressure 124/75 07/26/2023 2:39 PM CDT Pulse 68 07/26/2023 2:39 PM CDT Temperature - - Respiratory Rate - - Oxygen Saturation 100% 07/26/2023 2:39 PM CDT Inhaled Oxygen Concentration - - Weight - - Height - - Body Mass Index - - documented in this encounter Progress Notes * Anthony Shaffer MD - 07/26/2023 2:15 PM CDT [facility] Consultation I was asked to see Taylor Garcia for a consult for prior with labor but term delivery. The patient is a 28 yo at 18w0d. In her prior she had a short cervix measured at> 24 weeks. She had an episode of PTL at 32 weeks but delivery at 37 weeks. 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 contractions without [...] progesterone 200 mg each day to be usedup to 37 weeks. We do not recommend [...] week up to 24 weeks (ordered at [facility] in 1 and 2 weeks). 3) We would offer a cerclage if the cervix became < 10 mm or was dilated prior to 24 weeks. 4) In addition we will reassess the anatomy at [facility] in 2 weeks. For the history of hypothyroidism we recommend to assess adequate replacement each trimester and change her synthroid dose if appropriate. No additional assessments of growthg or testing is recommended for hypothyroidism. Please see Imaging tab under Chart Review for details of today's US at [facility]. Anthony Shaffer MD Maternal- Medicine The total time spent in all patient care activities on the day of this visit was 15 minutes. documented in this encounter Plan of Treatment Upcoming Encounters Date Type Department Care Team (Late st Contact Info) Description 04/17/2024 9:00 AM CDT Virtual Visit [facility] [address] [place] [address] Rocio Mccarthy MD [address] [place] [address] documented as of this encounter Results * MFM US OB Transvaginal (08/01/2023 11:25 AM CDT) Anatomical Region Laterality Modality Ultrasound 08/01/2023 11:0 6 AM CDT Impressions 08/01/2023 12:06 PM CDT IMPRESSION ----- 1. Intrauterine at 18w 6d gestational age. 2. The amniotic fluid measurement is within normal limits. 3. On transvaginal imaging the cervix is stable in length and closed. Narrative 08/01/2023 12:06 PM CDT ?Cx TV ----- Pat. Name: TAYLOR GARCIA ? Study Date: ??08/01/2023 11:06am Pat. NO: ??[id number] ?Referring ??MD: JANUARY MANUELAKAITLYNN Site: [facility] ? Registration Scheduling Specialist: Ariana Wilkerson RDMS : ??1995 ?Age: ?? [...] Tristan MD - 08/01/2023 Cx TV ----- Jennifer. Name: TAYLOR GARCIA Study Date: 08/01/2023 11:06am Pat. NO: [id number] Referring MD: SERGIO SONI [facility]: [facility] Registration Scheduling Specialist: Ariana Wilkerson RDMS : 1995 Age: [...] is stable in length and closed. Anthony Shaffer MD [facility] US ORDERABL ES documented in this encounter Visit Diagnoses Diagnosis Obesity affecting , antepartum, unspecified obesity type- Primary History of prior with short cervix, currently Short cervix affecting Cervical shortening, unspecified as to episode of care or not applicable Encounter for follow-up ultrasound of anatomy History of prior with short cervix, currently Short cervix affecting Cervical shortening, unspecified as to episode of care or not applicable Encounter for follow-up ultrasound of anatomy documented in this encounter Additional Health Concerns Assessment Noted Time PHQ-9 Depression Total Score: 11 023 10:04 AM CDT documented as of this encounter Care Teams Manager Engagement Relationship Specialty Start Date End Date Billie Guadarrama PCP - General 12/17/19 Rocio Mccarthy MD [address] [place] [address] [address] [place] [address] Assigned Endocrinology Provider 04/24/22 documented as of this encounter
--- OUTSIDE RECORDS SUMMARY | 2023-10-24 01:23 | XMS_ITS | Encounter Summary ---
Author Name Unknown Organization [facility] Address [address] [place] [address] Care Team Providers Care Inspector Filters Name Role Phone Selinsusan Billie Primary Care Provider Rocio Mccarthy MD Unavailable Reason for Referral * Diagnostic Imaging Ultrasound (Routine) - Pending Review Specialty Diagnoses / Procedures Referred By Contac t Referred To Contact Radiology. Diagnoses History of prior with short cervix, currently Procedures [facility] US Comprehensive [facility] Candice Conti MD [address] [place], [place] [address] [address] Referral ID Status Reason Start Date Expiration Date V isits Requested Visits Authorized [id number] Pending Review 05/17/2023 05/16/2024 1 1 Reason for Visit * Diagnostic Imaging Ultrasound (Routine) - Pending Review Specialty Diagnoses / Procedures Referred By Contac t Referred To Contact Radiology. Diagnoses History of prior with short cervix, currently Procedures [facility] Candice Juarez MD [address] [address] Referral ID Status Reason Start Date Expiration Date V isits Requested Visits Authorized [id number] Pending Review 05/17/2023 05/16/2024 1 1 Encounter Details Date Type Department Care Team (Latest Contact Info) Description 07/26/2023 1:22 PM CDT - 07/26/2023 11:59 PM CDT Hospital Encounter [facility] Maternal Medicine [facility] [address] [facility] [address] [place] [address] Candice Conti MD [address] [place] [address] Anthony Shaffer MD [address] [place] [address] History of prior with short cervix, currently Discharge Disposition: Home or Self Care Social [...] Sex Assigned at Female 10/05/2020 9:54 PM EQUITY ANALYST Gender Identity Female 10/05/2020 9:54 PM EQUITY ANALYST Sexual Orientation Straight 10/05/2020 9: 54 PM EQUITY ANALYST documented as of this encounter Medications at Time of Discharge Medication Sig Dispensed Refills Start Date End Date Vit-Fe Fumarate-FA ( VITAMIN PO) Take by mouth daily 0 progesterone (PROMETRIUM) 200 MG capsuleIndications:Shor t cervix affecting Take 1 capsule (200 mg) by mouth daily for 30 days 30 capsule 0 07/26/2023 08/25/2023 levothyroxine (SYNTHROID/LEVOTHROID) 175 MCG tabletIndications: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 Take 1 tablet (175 mcg) by mouth daily 90 tablet 1 06/21/2023 10/18/2023 documented as of this encounter Plan of Treatment Upcoming Encounters Date Type Department Care Team (Late st Contact Info) Description 04/17/2024 9:00 AM CDT Virtual Visit [facility] [address] [place] [address] Rocio Mccarthy MD [address] [place] [address] documented as of this encounter Procedures Procedure Name Priority Date/Time Associated Diagnosis Comments [facility] US COMPREHENSIVE SINGLE Routine 07/26/2023 2:32 PM CDT History of prior with short cervix, currently documented in this encounter Results * [facility] US Comprehensive Single (07/26/2023 2:32 PM [...] PM CDT ?Comprehensive ----- Pat. Name: TAYLOR GARCIA ? Study Date: ??07/26/2023 1:18pm Pat. NO: ??[id number] ?Referring ??MD: JANUARY MANUELAKAITLYNN Site: ??[facility] ? Procurement Professional: Phylicia Perkins RDMS : ??1995 ?Age: ?? [...] 0 lb 7 ?oz EFW by ?Hadlock ([id number]) Head / Face / Neck Biometry: Swim Coach ? 5.4 ? mm CM ?5.3 ? [...] view. Superior vena cava. Inferior vena cava. 3-vdknms-lpakqnq view. Cardiac ? position. Cardiac size. Cardiac [...] CONSULTATION I was asked to see Taylor Garcia [...] week up to 24 weeks (ordered at [facility] in 1 and 2 weeks). 3) We would offer a cerclage if the cervix became < 10 mm or was dilated prior to 24 weeks. 4) In addition we will reassess the anatomy at [facility] in 2 weeks. For the history [...] - 07/26/2023 Comprehensive ----- Pat. Name: TAYLOR GARCIA Study Date: 07/26/2023 1:18pm Pat. NO: [id number] Referring MD: SERGIO SONI Site: [facility] Procurement Professional: Phylicia Perkins RDMS : 1995 Age: 28 [...] 0 lb 7 oz EFW by Hadlock ([id number]) Head / Face / Neck Biometry: Swim Coach 5.4 mm CM 5.3 mm Nasal bone [...] arch view. Superior vena cava. Inferior vena cava.8-yznkgq-exfjukl view. Cardiac position. Cardiac size. Cardiacrhythm. Right [...] Visualized Left Ovary Visualized CONSULTATION ----- Type: [facility] CONSULTATION I was asked to see Taylor Garcia for a consult for prior withpreterm labor [...] week up to 24 weeks (ordered at [facility] in 1 and2 weeks). 3) We would offer a cerclage if the cervix became < 10 mm or was dilatedprior to 24 weeks. 4) In addition we will reassess the anatomy at [facility] in 2 weeks. For the history [...] consultation section for further counseling. [facility]. Thank-you for the opportunity [...] cervical length with no funneling noted. Candice Conti MD G [facility] US ORDERAB LES documented in this encounter Visit Diagnoses Diagnosis History of prior with short cervix, currently documented in this encounter Additional Health Concerns Assessment Noted Time PHQ-9 Depression Total Score: 11 023 10:04 AM CDT documented as of this encounter Care Teams Inspector Filters Relationship Specialty Start Date End Date Billie Guadarrama PCP - General 12/17/19 Rocio Mccarthy MD [address] [facility] [address] [place] [address] Assigned Endocrinology Provider 04/24/22 documented as of this encounter
--- OUTSIDE RECORDS SUMMARY | 2023-10-24 01:23 | XMS_ITS | Encounter Summary ---
Author Name Unknown Organization [facility] Address [address] [place] [address]. [place] [address] Care Team Providers Care Transport Pilot Name Role Phone Chiara Billie Primary Care Provider [phone] Rocio Mccarthy MD Unavailable [phone] Encounter Details Date Type Department Care Team (Late st Contact Info) Description 06/07/2023 3:[address] 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 No / Unsure 06/07/2023 3:26 PM CDT documented as of this encounter Plan of Treatment Upcoming Encounters Date Type Department Care Team (Late st Contact Info) Description 04/17/2024 9:00 AM CDT Virtual Visit 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 documented in this encounter Results * T3, Free (06/07/2023 3:33 PM CDT) T3 Free 2.4 2.0 - 4.4 pg/mL 06/07/2023 8:40 PM CDT [facility] Blood BLOOD SPECIMEN / Unknown Venipuncture / Unknown 06/07/2023 3:33 PM CDT 06/07/2023 3:33 PM CDT Rocio Mccarthy MD LAB - BLOOD ORDER [facility] [address] [facility] [facility] [place] [address], [facility] [phone] * (ABNORMAL) TSH (06/07/2023 3:33 PM CDT) TSH 4.86(H) 0.30 - 4.20 uIU/mL 06/07/2023 8:40 PM CDT [facility] Blood BLOOD SPECIMEN / Unknown Venipuncture / Unknown 06/07/2023 3:33 PM CDT 06/07/2023 3:33 PM CDT Rocio Mccarthy MD LAB - BLOOD ORDER [facility] [address] [facility], [address] [address], [facility] [phone] * T4 free (06/07/2023 3:33 PM CDT) Free T4 1.03 0.90 - 1.70 ng/dL 06/07/2023 8:40 PM CDT [facility] Blood BLOOD SPECIMEN / Unknown Venipuncture / Unknown 06/07/2023 3:33 PM CDT 06/07/2023 3:33 PM CDT Rocio Mccarthy MD LAB - BLOOD ORDER [facility] [address] [facility] [phone], [facility] [phone] documented in this encounter Visit Diagnoses Diagnosis 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
--- OUTSIDE RECORDS SUMMARY | 2023-10-24 01:23 | XMS_ITS | Encounter Summary ---
Author Name Unknown Organization [facility] Address [address] [place] [address]. [place] [address] Care Team Providers Care Commercial Stripper Name Role Phone Billie Guadarrama Primary Care Provider [phone] Rocio Mccarthy MD Unavailable [phone] Erica Tristan MD Unavailable [phone] Encounter Details Date Type Department Care Team (Late st Contact Info) Description 08/24/2023 MyC Medical Advice [facility] [address] [facility] [address] [place] [address] Rocio Mccarthy MD [address] [place] [address] Social History Tobacco Use Types [...] Sex Assigned at Female 10/05/2020 9:54 PM DOLL WIGS HACKLER Gender Identity Female 10/05/2020 9:54 PM DOLL WIGS HACKLER Sexual Orientation Straight 10/05/2020 9: 54 PM DOLL WIGS HACKLER documented as of this encounter Miscellaneous Notes * Telephone Encounter - Rocio Mccarthy MD - 08/26/2023 10:48 AM DOLL WIGS HACKLER Latest Ref Rng 08/23/2023 1:26 PM [facility] TSH 0.30 - 4.20 uIU/mL 2.58 Free T3 2.0 - 4.4 pg/mL 2.7 T3, Reverse ng/dL 9.0 - 27.0 ng/dL FREE T4 0.90 - 1.70 ng/dL 1.16 She is 22 weeks Thyroid labs are in acceptable range. Continue current dose of thyroid hormone replacement. Recommend close follow up with lab recheck in 6 weeks and then after delivery. Please place labs if needed. Please make a lab appointment for blood work and follow up clinic appointment in 1 week after that to discuss results. WIGS HACKLER * Telephone Encounter - Ramya Lugo RN - 08/24/2023 11:51 AM CST In response to lab comments 08/23/23: Thyroid labs are in acceptable range. How many weeks are you so far? How are you feeling? WIGS HACKLER documented in this encounter Plan of Treatment Upcoming Encounters Date Type Department Care Team (Late st Contact Info) Description 04/17/2024 9:00 AM CDT Virtual Visit [facility] [address] [place] [address] Rocio Mccarthy MD [address] [place] [address] documented as of this encounter Visit Diagnoses Not on filedocumented in this encounter Additional Health Concerns Assessment Noted Time PHQ-9 Depression Total Score: 11 023 10:04 AM CDT documented as of this encounter Care Teams Commercial Stripper Relationship Specialty Start Date End Date Billie Guadarrama PCP - General 12/17/19 Rocio Mccarthy MD [address] [facility] [address] [place] [address] Assigned Endocrinology Provider 04/24/22 Erica Tristan MD [address] [facility] [address] [place], [place] [address] Assigned OBGYN Provider 08/06/23 documented as of this encounter
--- OUTSIDE RECORDS SUMMARY | 2023-10-24 01:23 | XMS_ITS | Encounter Summary ---
Author Name Unknown Organization [facility] Address [address] [place] [address]. [place] [address] Care Team Providers Care Developer Advocate Name Role Phone Chiara Billie Primary Care Provider [phone] Rocio Mccarthy MD Unavailable [phone] Erica Tristan MD Unavailable [phone] Encounter Details Date Type Department Care Team (Latest Contact Info) Description 08/23/2023 Travel Social History Tobacco Use Types Packs/Day [...] Sex Assigned at Female 10/05/2020 9:54 PM CORN SHELLER OPERATOR Gender Identity Female 10/05/2020 9:54 PM CORN SHELLER OPERATOR Sexual Orientation Straight 10/05/2020 9: 54 PM CORN SHELLER OPERATOR documented as of this encounter Plan of Treatment Upcoming Encounters Date Type Department Care Team ( Contact Info) Description 04/17/2024 9:00 AM CDT Virtual Visit [facility] [address] [place] [address] Rocio Mccarthy MD [address] [place] [address] documented as of this encounter Visit Diagnoses Not on filedocumented in this encounter Additional Health Concerns Assessment Noted Time PHQ-9 Depression Total Score: 11 023 10:04 AM CDT documented as of this encounter Care Teams Developer Advocate Relationship Specialty Start Date End Date Billie Guadarrama PCP - General 12/17/19 Rocio Mccarthy MD [address] [place] [address] Assigned Endocrinology Provider 04/24/22 Erica Tristan MD [address] [place] [address] Assigned OBGYN Provider 08/06/23 documented as of this encounter
--- OUTSIDE RECORDS SUMMARY | 2023-10-24 01:23 | XMS_ITS | Encounter Summary ---
Author Name Unknown Organization [place] Address [address] [place] [address] Care Team Providers Care Culture Media Laboratory Assistant Name Role Phone Selinsusan Billie Primary Care Provider [phone] Rocio Mccarthy MD Unavailable [phone] Reason for Referral * Diagnostic Imaging Ultrasound (Routine) - Pending Review Specialty Diagnoses / Procedures Referred By Contac t Referred To Contact Radiology. Diagnoses History of prior with short cervix, currently Short cervix affecting Encounter for follow-up ultrasound of anatomy Procedures [facility] US OB Transvaginal Anhtony Shaffer MD [address] [address] Referral ID Status Reason Start Date Expiration Date V isits Requested Visits Authorized [id number] Pending Review 07/26/2023 07/25/2024 1 1 Reason for Visit * Diagnostic Imaging Ultrasound (Routine) - Pending Review Specialty Diagnoses / Procedures Referred By Contac t Referred To Contact Radiology. Diagnoses History of prior with short cervix, currently Short cervix affecting Encounter for follow-up ultrasound of anatomy Procedures [facility] US OB Transvaginal Anthony Shaffer MD [address] [place] [address] Referral ID Status Reason Start Date Expiration Date V isits Requested Visits Authorized [id number] Pending Review 07/26/2023 07/25/2024 1 1 Encounter Details Date Type Department Care Team (Latest Contact Info) Description 08/01/2023 10:55 AM CDT - 08/01/2023 11:59 PM CDT Hospital Encounter [facility] [address] [place] [address] Anthony Shaffer MD [address] [place] [address] Erica Tristan MD [address] [place] [address] History of prior with short cervix, currently ; Short cervix affecting ; Encounter for follow-up ultrasound of anatomy Discharge Disposition: Home or Self Care Social [...] Sex Assigned at Female 10/05/2020 9:54 PM SCHOOL CROSSING GUARD Gender Identity Female 10/05/2020 9:54 PM SCHOOL CROSSING GUARD Sexual Orientation Straight 10/05/2020 9: 54 PM SCHOOL CROSSING GUARD documented as of this encounter Medications at Time of Discharge Medication Sig Dispensed Refills Start Date End Date Vit-Fe Fumarate-FA ( VITAMIN PO) Take by mouth daily 0 progesterone (PROMETRIUM) 200 MG capsuleIndications:Shor t cervix affecting Take 1 capsule (200 mg) by mouth daily for 30 days 30 capsule 0 07/26/2023 08/25/2023 levothyroxine (SYNTHROID/LEVOTHROID) 175 MCG tabletIndications: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 Take 1 tablet (175 mcg) by mouth daily 90 tablet 1 06/21/2023 10/18/2023 documented as of this encounter Plan of Treatment Upcoming Encounters Date Type Department Care Team (Late st Contact Info) Description 04/17/2024 9:00 AM CDT Virtual Visit [facility] [address] [place] [address] Rocio Mccarthy MD [address] [place] [address] documented as of this encounter Procedures Procedure Name Priority Date/Time Associated Diagnosis Comments [facility] US OB TRANSVAGINAL Routine 08/01/2023 11:25 AM CDT History of prior with short cervix, currently Short cervix affecting Encounter for follow-up ultrasound of anatomy documented in this encounter Results * [facility] US OB Transvaginal (08/01/2023 11:25 AM CDT) [...] ? Study Date: ??08/01/2023 11:06am Pat. NO: ??[id number] ?Referring ??MD: JANUARY ZACHARIAH Site: ??[facility] ? Laundry Marker Supervisor: Ariana Wilkerson RDMS : ??1995 ?Age: ?? [...] Tristan MD - 08/01/2023 Cx TV ----- PatFredis Name: TAYLOR GARCIA Study Date: 08/01/2023 11:06am Pat. NO: [id number] Referring MD: SERGIO SONI Site: [facility] Laundry Marker Supervisor: Ariana Wilkerson RDMS : 1995 Age: 28 [...] in length and closed. Anthony Shaffer MD [facility] US ORDERABL ES documented in this encounter Visit Diagnoses Diagnosis History of prior with short cervix, currently Short cervix affecting Cervical shortening, unspecified as to episode of care or not applicable Encounter for follow-up ultrasound of anatomy documented in this encounter Additional Health Concerns Assessment Noted Time PHQ-9 Depression Total Score: 11 023 10:04 AM CDT documented as of this encounter Care Teams Culture Media Laboratory Assistant Relationship Specialty Start Date End Date Billie Guadarrama PCP - General 12/17/19 Rocio Mccarthy MD [address] [facility] [address] [place] [address] Assigned Endocrinology Provider 04/24/22 documented as of this encounter
--- OUTSIDE RECORDS SUMMARY | 2023-10-24 01:23 | XMS_ITS | Encounter Summary ---
Author Name Unknown Organization [place] Address [address] [place] [address]. [place] [address] Care Team Providers Care Trench Digger Helper Name Role Phone Chiara Billie Primary Care Provider [phone] Rocio Mccarthy MD Unavailable [phone] Erica Tristan MD Unavailable [phone] Encounter Details Date Type Department Care Team (Latest Contact Info) Description 08/17/2023 Travel Social History Tobacco Use Types Packs/Day [...] Assigned at Female 10/05/2020 9:54 PM SOFTWARE INTEGRATOR Gender Identity Female 10/05/2020 9:54 PM SOFTWARE INTEGRATOR Sexual Orientation Straight 10/05/2020 9: 54 PM SOFTWARE INTEGRATOR documented as of this encounter Plan of Treatment Upcoming Encounters Date Type Department Care Team ( Contact Info) Description 04/17/2024 9:00 AM CDT Virtual Visit [facility] [address] [place] [phone] Rocio Mccarthy MD [address] [place] [address] documented as of this encounter Visit Diagnoses Not on filedocumented in this encounter Additional Health Concerns Assessment Noted Time PHQ-9 Depression Total Score: 11 023 10:04 AM CDT documented as of this encounter Care Teams Trench Digger Helper Relationship Specialty Start Date End Date Billie Guadarrama PCP - General 12/17/19 Rocio Mccarthy MD [address] [place] [address] Assigned Endocrinology Provider 04/24/22 Erica Tristan MD [address] [place] [address] Assigned OBGYN Provider 08/06/23 documented as of this encounter
--- OUTSIDE RECORDS SUMMARY | 2023-10-24 01:23 | XMS_ITS | Encounter Summary ---
Author Name Unknown Organization [facility] Address [address] [place] [address]. [place] [address] Care Team Providers Care Stereotype Molder Name Role Phone Selinsusan Billie Primary Care Provider [phone] Rocio Mccarthy MD Unavailable [phone] Encounter Details Date Type Department Care Team (Latest Contact Info) Description 08/01/2023 Travel Social History Tobacco Use Types Packs/Day [...] Sex Assigned at Female 10/05/2020 9:54 PM OFFSET PLATE PREPARATION SUPERVISOR Gender Identity Female 10/05/2020 9:54 PM OFFSET PLATE PREPARATION SUPERVISOR Sexual Orientation Straight 10/05/2020 9: 54 PM OFFSET PLATE PREPARATION SUPERVISOR documented as of this encounter Plan of Treatment Upcoming Encounters Date Type Department Care Team ( Contact Info) Description 04/17/2024 9:00 AM CDT Virtual Visit [facility] [address] [place] [phone] Rocio Mccarthy MD [address] [place], [place] [address] documented as of this encounter Visit Diagnoses Not on filedocumented in this encounter Additional Health Concerns Assessment Noted Time PHQ-9 Depression Total Score: 11 023 10:04 AM CDT documented as of this encounter Care Teams Stereotype Molder Relationship Specialty Start Date End Date Billie Guadarrama PCP - General 12/17/19 Rocio Mccarthy MD [address] [place] [address] Assigned Endocrinology Provider 04/24/22 documented as of this encounter
--- OUTSIDE RECORDS SUMMARY | 2023-10-24 01:23 | XMS_ITS | Encounter Summary ---
Author Name Unknown Organization [place] Address [address] [place] [address]. [place] [address] Care Team Providers Care Brass Plater Name Role Phone Selinsusan Billie Primary Care Provider [phone] Rocio Mccarthy MD Unavailable [phone] Encounter Details Date Type Department Care Team (Latest Contact Info) Description 07/21/2023 Travel Social History Tobacco Use Types Packs/Day [...] Sex Assigned at Female 10/05/2020 9:54 PM FINANCIAL FOUNDATIONS ASSOCIATE Gender Identity Female 10/05/2020 9:54 PM FINANCIAL FOUNDATIONS ASSOCIATE Sexual Orientation Straight 10/05/2020 9: 54 PM FINANCIAL FOUNDATIONS ASSOCIATE documented as of this encounter Plan of Treatment Upcoming Encounters Date Type Department Care Team ( Contact Info) Description 04/17/2024 9:00 AM CDT Virtual Visit [facility] [address] [place] [phone] Rocio Mccarthy MD [address] [place], [place] [address] documented as of this encounter Visit Diagnoses Not on filedocumented in this encounter Additional Health Concerns Assessment Noted Time PHQ-9 Depression Total Score: 11 023 10:04 AM CDT documented as of this encounter Care Teams Brass Plater Relationship Specialty Start Date End Date Billie Guadarrama PCP - General 12/17/19 Rocio Mccarthy MD [address] [place] [address] Assigned Endocrinology Provider 04/24/22 documented as of this encounter
--- OUTSIDE RECORDS SUMMARY | 2023-10-24 01:24 | XMS_ITS | Encounter Summary ---
Author Name Unknown Organization [facility] Address [address] [place] [address]. [place] [address] Care Team Providers Care Tower Operator Name Role Phone Selinsusan Billie Primary Care Provider [phone] Rocio Mccarthy MD Unavailable [phone] Encounter Details Date Type Department Care Team (Latest Contact Info) Description 12/21/2022 Travel Social History Tobacco Use Types Packs/Day [...] Sex Assigned at Female 10/05/2020 9:54 PM TUBE PUSHER Gender Identity Female 10/05/2020 9:54 PM TUBE PUSHER Sexual Orientation Straight 10/05/2020 9: 54 PM TUBE PUSHER COVID-19 Exposure Response Date Recorded In the last 10 days, have yo u been in contact with someone who was confirmed or suspected to have Coronavirus/COVID-19? No / Unsure 12/21/2022 9:54 AM CDT documented as of this encounter Plan of Treatment Upcoming Encounters Date Type Department Care Team ( st Contact Info) Description 04/17/2024 9:00 AM CDT Virtual Visit [facility] [address] [place] [address] Rocio Mccarthy MD [address] [place] [address] documented as of this encounter Visit Diagnoses Not on filedocumented in this encounter Care Teams Tower Operator Relationship Specialty Start Date End Date Billie Guadarrama PCP - General 12/17/19 Rocio Mccarthy MD [address] [place] [address] Assigned Endocrinology Provider 04/24/22 documented as of this encounter
--- OUTSIDE RECORDS SUMMARY | 2023-10-24 01:24 | XMS_ITS | Encounter Summary ---
Author Name Unknown Organization [facility] Address [address] [place] [address]. [place] [address] Care Team Providers Care Electronic Equipment Set Up Operator Name Role Phone Selinsusan Billie Primary Care Provider [phone] Rocio Mccarthy MD Unavailable [phone] Encounter Details Date Type Department Care Team (Latest Contact Info) Description 12/23/2022 Travel Social History Tobacco Use Types Packs/Day [...] Sex Assigned at Female 10/05/2020 9:54 PM PULVERIZER TENDER Gender Identity Female 10/05/2020 9:54 PM PULVERIZER TENDER Sexual Orientation Straight 10/05/2020 9: 54 PM PULVERIZER TENDER COVID-19 Exposure Response Date Recorded In the last 10 days, have yo u been in contact with someone who was confirmed or suspected to have Coronavirus/COVID-19? No / Unsure 12/23/2022 3:27 PM CDT documented as of this encounter Plan of Treatment Upcoming Encounters Date Type Department Care Team ( st Contact Info) Description 04/17/2024 9:00 AM CDT Virtual Visit [facility] [address] [place] [address] Rocio Mccarthy MD [address] [place] [address] documented as of this encounter Visit Diagnoses Not on filedocumented in this encounter Care Teams Electronic Equipment Set Up Operator Relationship Specialty Start Date End Date Billie Guadarrama PCP - General 12/17/19 Rocio Mccarthy MD [address] [place] [address] Assigned Endocrinology Provider 04/24/22 documented as of this encounter
--- OUTSIDE RECORDS SUMMARY | 2023-10-24 01:24 | XMS_ITS | Encounter Summary ---
Author Name Unknown Organization [facility] Address [address] [place] [address]. [place] [address] Care Team Providers Care Route Supervisor Name Role Phone Chiara Billie Primary Care Provider [phone] Rocio Mccarthy MD Unavailable [phone] Encounter Details Date Type Department Care Team (Late st Contact Info) Description 12/23/2022 3:[address] 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 No / Unsure 12/23/2022 3:27 PM CDT documented as of this encounter Plan of Treatment Upcoming Encounters Date Type Department Care Team (Late st Contact Info) Description 04/17/2024 9:00 AM CDT Virtual Visit 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 documented in this encounter Results * (ABNORMAL) TSH (12/23/2022 3:33 PM CDT) TSH 5.14(H) 0.30 - 4.20 uIU/mL 12/23/2022 8:35 PM CDT [facility] Blood STRUCTURE OF LEFT UPPER LIMB / Unknown Venipuncture / Unknown 12/23/2022 3:33 PM CDT 12/23/2022 3:33 PM CDT Rocio Mccarthy MD LAB - BLOOD ORDER [facility] [address] [facility] [place] [address], [facility] [phone] * T4 free (12/23/2022 3:33 PM CDT) Free T4 1.38 0.90 - 1.70 ng/dL 12/23/2022 8:35 PM CDT [facility] Blood STRUCTURE OF LEFT UPPER LIMB / Unknown Venipuncture / Unknown 12/23/2022 3:33 PM CDT 12/23/2022 3:33 PM CDT Rocio Mccarthy MD LAB - BLOOD ORDER [facility] [address] [facility] [address] [facility] [address] [address], [facility] [phone] documented in this encounter Visit Diagnoses Diagnosis 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
--- OUTSIDE RECORDS SUMMARY | 2023-10-24 01:24 | XMS_ITS | Encounter Summary ---
Author Name Unknown Organization [facility] Address [address] [place] [address]. [place] [address] Care Team Providers Care Major League Baseball Player Name Role Phone Billie Guadarrama Primary Care Provider Rocio Mccarthy MD Unavailable [phone] Erica Tristan MD Unavailable [phone] Encounter Details Date Type Department Care Team (Late st Contact Info) Description 03/23/[address] [facility] [address] [place] [address] Rocio Mccarthy MD [address] [place] [address] Social History Tobacco Use Types [...] Sex Assigned at Female 10/05/2020 9:54 PM HOUSE CARPENTER HELPER Gender Identity Female 10/05/2020 9:54 PM HOUSE CARPENTER HELPER Sexual Orientation Straight 10/05/2020 9: 54 PM HOUSE CARPENTER HELPER documented as of this encounter Miscellaneous Notes * Telephone Encounter - Rocio Mccarthy MD - 03/28/2023 4:49 PM CDT Noted low TSH. Please place orders for TSH, Free T4 and T3 levels. Furhter work up based on that. documented in this encounter Plan of Treatment Upcoming Encounters Date Type Department Care Team (Late st Contact Info) Description 04/17/2024 9:00 AM CDT Virtual Visit [facility] [address] [place] [address] Rocio Mccarthy MD [address] [place] [address] documented as of this encounter Visit Diagnoses Not on filedocumented in this encounter Care Teams Major League Baseball Player Relationship Specialty Start Date End Date Billie Guadarrama PCP - General 12/17/19 Rocio Mccarthy MD [address] [place] [address] Assigned Endocrinology Provider 04/24/22 Erica Tristan MD [address] [place] [address] Assigned OBGYN Provider 08/06/23 documented as of this encounter
--- OUTSIDE RECORDS SUMMARY | 2023-10-24 01:24 | XMS_ITS | Encounter Summary ---
Author Name Unknown Organization [facility] Address [address] [place] [address]. 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 Procedures US Head Neck Soft Tissue Rocio Mccarthy MD [address] [address] [place] [address] Referral ID Status Reason Start Date Expiration Date Visits Re quested Visits Authorized [id number] Closed 06/03/2022 06/03/2023 1 1 Reason for Visit * Reason Onset Date Comments Call Back 06/01/2022 Encounter Details Date Type Department Care Team (Late st Contact Info) Description 06/01/2022 Telephone [facility] [address] [place] [address] Rocio Mccarthy MD [address] [facility] [address] [place], [place] [phone] Call Back Social History Tobacco Use Types [...] PHQ-2 Answer Date Recorded PHQ-2 Score 0 04/19/2022 Sex and Gender Information Value Date Recorded Sex Assigned at Female 10/05/2020 9:54 PM MARKETING TEAM LEAD Gender Identity Female 10/05/2020 9:54 PM MARKETING TEAM LEAD Sexual Orientation Straight 10/05/2020 9: 54 PM MARKETING TEAM LEAD documented as of this encounter Miscellaneous Notes * Telephone Encounter - Nahed Woodruff - 06/03/2022 12:02 PM CDT Appts scheduled, transfer pt to radiology to schedule US * Telephone Encounter - Jina Harrell RN - 06/03/2022 11:05 AM CDT Per : Labs 06/21. Follow up video visit 06/29 at 1230 (ok to add on) Ok to order US- needs few days prior to appointment. * Telephone Encounter - Rocio Mccarthy MD - 06/03/2022 11:02 AM CDT US neck. * Telephone Encounter - Jina Harrell RN - 06/03/2022 9:04 AM CDT Please advise if provider wants US of Thyroid or neck. Pt stated it was for neck, however patient is seen for thyroid. * Telephone Encounter - Rocio Mccarthy MD - 06/03/2022 9:00 AM CDT Labs 06/21. Follow up video visit 06/29 at 1230 (ok to add on) Ok to order US- needs few days prior to appointment. * Telephone Encounter - Sharmin Peacock - 06/01/2022 10:21 AM CDT [facility] Call Center Phone Message May a [...] Description 04/17/2024 9:00 AM CDT Virtual Visit [facility] [address] [place] [address] Rocio Mccarthy MD [address] [place], [place] [address] documented as of this encounter Results * US Head Neck Soft Tissue (06/09/2022 2:59 PM CDT) Anatomical Region Laterality Modality Head Ultrasound Impressions 06/09/2022 3:52 PM CDT IMPRESSION: 1. ??No discrete thyroid nodule visualized. 2. ??Diffusely heterogenous thyroid parenchyma, likely due to underlying chronic thyroiditis. SHREYAS [...] cervical lymphadenopathy. NODULES: No discrete thyroid nodule visualized. 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 TECHNIQUE: Thyroid ultrasound. COMPARISON: None available. FINDINGS: RIGHT lobe: Measures 4.4 x 1.7 x 1.7 cm. Heterogenous echotexture. Isthmus: Measures 5 mm in thickness. LEFT lobe: Measures 5.3 x 2.6 x 1.7 cm. Heterogenous echotexture. NECK: No cervical lymphadenopathy. NODULES: No discrete thyroid nodule visualized. IMPRESSION: 1. No discrete thyroid nodule visualized. 2. Diffusely heterogenous thyroid parenchyma, likely due to underlying chronic thyroiditis. 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
--- OUTSIDE RECORDS SUMMARY | 2023-10-24 01:24 | XMS_ITS | Encounter Summary ---
Author Name Unknown Organization [facility] Address [address] [place] [address]. 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 No / Unsure 12/23/2022 3:27 PM CDT documented as of this encounter Patient Instructions * Patient Instructions* Rocio cMcarthy MD - 12/28/2022 1:00 PM CDT [facility] Dr Mccarthy, Endocrinology Department [address] [facility] [address] [place] [address] Appointment [phone] [place]: Tuesday - Increase levothyroxine to 137 mcg/day. Labs in 3 months. Please make a lab appointment for [...] Progress Notes * Rocio Mccarthy MD - 12/28/2022 1:00 PM CDT THIS IS A VIDEO VISIT: Phone call visit/virtual visit encounter: Name of patient: Altagracia Garcia Date of encounter:12/28/2022 Time of start of video visit: 1:00 Video started: 1:08 Video ended: 1:16 Provider location: working from home/ [facility] Patient location: patients home. Mode of transmission: video/ [employer] Verbal consent: obtained before starting visit. Pt [...] Was requested to see endocrinology by her CABLE HOOKER from [place]. Available records, labs and images from outside clinic were personally reviewed. Since last visit she had a miscarriage. Is actively planning . #1 Hypothyroidism (+TPO): Diagnosed with Duane in 2012 and was started on levothyroxine 100 mcg/day. Currently taking ADITYA SYNTHROID 125 mcg/day. On this dose X 04/2022. Insurance did not cover brand ans was switched to generic in 06/2022. F/u 12/2022 labs as noted below. H/o fibromyalgia and PCOS. Takes generic. Reports compliance. Feeling tires- getting worse. Energy is up and down. Delivered baby in Jun 2021. Not . Not able to loose weight. Not back to prepregnancy weight. She is on phentermine 37.5 mg/day which is prescribed by provider outside [facility] since 12/2021. Lost about 20 lbs on it. Now stable. H/o miscarriage in 2019. No plans for at this time. Feels like something is stuck in throat when eating. Has discomfart. Thyroid US 05/2022- unremarkable- no discrete thyroid nodules were seen. Palpitations: No Changes to hair or skin: No. Diarrhea/Constipation: sometimes constipation. h/o cholecystectomy. Stable. Changes in menses: irregular- h/o PCOS. Dysphagia or Shortness of breath:sometimes Tremors:No Changes in weight: as noted above. Heat or cold intolerance: sometimes cold History of [place] or Amiodarone use:No Head or neck surgery/radiation:No Family History of Thyroid Problems: pgm- thyroid problems. Weight is stable. PMH/PSH: Past Medical History: Diagnosis Date ??? Depressive disorder anxiety & depression; takes medication - venlafaxine ??? Diabetes (H) 03/10/2021 GDM ??? Fibromyalgia 2012 ??? PCOS (polycystic ovarian syndrome) 2012 ??? Thyroid disease hashimotos; takes synthroid Past Surgical History: Procedure Laterality Date ??? ABDOMEN SURGERY 2016 galbladder removed ??? ENT SURGERY 2014 tonsils, adenoids, wisdom teeth ??? FIRE EXTINGUISHER MECHANIC SURGERY 2018 ovarian cyst removed ? ? HEAD & NECK SURGERY 2014 lymph node removal ??? NO HISTORY OF [...] file Tobacco Use ??? Smoking status: Never ??? Smokeless tobacco: Never ??? Tobacco comments: NO 2ND HAND SMOKE AT [...] list which includes the following prescription(s): levothyroxine, aspirin,metformin, phentermine, and vit-fe fumarate-fa. ROS ROS: 10 [...] and appearance well-groomed LABS: TFTs: ENDO THYROID LABS-[facility] Latest Ref Rng & Units 12/23/2022 THYROID STIMULATING HORMONE 0.40 - 4.00 mU/L THYROID STIMULATING HORMONE (R) 0.30 - 4.20 uIU/mL 5.14 (H) FREE T3 2.0 - 4.4 pg/mL RVT3 9.0 - 27.0 ng/dL FREE T4 0.90 - 1.70 ng/dL 1.38 Thyroid US 04/2020: US THYROID 04/14/2020 3:29 [...] options of condition with pt. Based on 12/2022 labs-- Increase levothyroxine to 137 mcg/day. (12/28/2022) Labs in 3 months. Please make a lab appointment for blood work and follow up clinic appointment in 1 week after that to discuss results.Discussed s/s of hypothyroidism and hyperthyroidism to watch [...] - 1 uU/ml. This is typically achieved with 1 ug L- T4/lb body weight/day, ranges from 75 - 125 ug/day in women, and 125 - 200 ug/day in men.Once thyroxine treatment is initiated, it is required [...] age precaution should be taking regarding hypothyroidism. Hypothyroidwoman are more likely to experience infertility, and they have an increase. Balance and portion, anemia, and gestational hypertension, placental abruption and hemorrhage. Certain medications, supplements and foods can affect the body???s ability to absorb levothyroxine.Medications include: Iron supplements, Cholestyramine and Calcium supplements. Follow-up: 3 months. Rocio Mccarthy MD Endocrinology [facility]/[place] CC: Billie Guadarrama All questions were answered. The patient indicates understanding of the above issues and agrees with the plan set forth. documented in this encounter Nursing Notes * Kendra Baltazar - 12/28/2022 1:00 PM CDT Is the patient currently in the state of [place]? YES Visit mode:VIDEO If the visit is dropped, the patient can be reconnected by: VIDEO VISIT: Text to cell phone: [phone] Will anyone else be joining the visit? NO How would you like to obtain your AVS? MyChart Are changes needed to the allergy or medication list? NO Reason for visit: follow up documented in this encounter Plan of Treatment Upcoming Encounters Date Type Department Care Team (Late st Contact Info) Description 04/17/2024 9:00 AM CDT Virtual Visit [facility] [address] [facility] [address] [place] [address] Rocio Mccarthy MD [address] [facility] [address] [place], [place] [address] documented as of this encounter Results * (ABNORMAL) TSH (03/30/2023 3:56 PM CDT) TSH 0.06(L) 0.30 - 4.20 uIU/mL 03/30/2023 9:24 PM CDT [facility] Blood STRUCTURE OF LEFT UPPER LIMB / Unknown Venipuncture / Unknown 03/30/2023 3:56 PM CDT 03/30/2023 3:56 PM CDT Rocio Mccarthy MD LAB - BLOOD ORDER [facility] Core Lab [address] [facility] [address] [facility], [address] [place] [address], [facility] [phone] * T4 free (03/30/2023 3:56 PM CDT) Free T4 1.67 0.90 - 1.70 ng/dL 03/30/2023 9:24 PM CDT [facility] Blood STRUCTURE OF LEFT UPPER LIMB / Unknown Venipuncture / Unknown 03/30/2023 3:56 PM CDT 03/30/2023 3:56 PM CDT Rocio Mccarthy MD LAB - BLOOD ORDER [facility] Core Lab [address] [facility], [address] [place] [address], [facility] [phone] documented in this encounter Visit Diagnoses Diagnosis 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
--- OUTSIDE RECORDS SUMMARY | 2023-10-24 01:24 | XMS_ITS | Encounter Summary ---
Author Name Unknown Organization [facility] Address [address] [place] [address] Care Team Providers Care Hebrew Professor Name Role Phone Selinsusan Billie Primary Care Provider [phone] Rocio Mccarthy MD Unavailable Reason for Referral * Consultation (Routine: Next available opening) - Pending Review Specialty Diagnoses / Procedures Referred By Contac t Referred To Contact Diagnoses History of prior with short cervix, currently Candice Conti MD [address] [facility] [address] [place] [address] Referral ID Status Reason Start Date Expiration Date V isits Requested Visits Authorized [id number] Pending Review 05/17/2023 05/16/2024 1 1 Question Answer MFM Consult Yes Additional Information: MFM radiologic consult * Diagnostic Imaging Ultrasound (Routine) - Pending Review Specialty Diagnoses / Procedures Referred By Contac t Referred To Contact Radiology. Diagnoses History of prior with short cervix, currently Procedures MF US Comprehensive Single Candice Conti MD [address] [place] [address] Referral ID Status Reason Start Date Expiration Date V isits Requested Visits Authorized [id number] Pending Review 05/17/2023 05/16/2024 1 1 Encounter Details Date Type Department Care Team (Late Contact Info) Description 05/17/[address] [facility] [address] [place] [address] Aida Chin RN History of prior with short cervix, currently (Primary Dx) Social History Tobacco Use Types [...] Sex Assigned at Female 10/05/2020 9:54 PM CHECKERER HAND Gender Identity Female 10/05/2020 9:54 PM CHECKERER HAND Sexual Orientation Straight 10/05/2020 9: 54 PM CHECKERER HAND documented as of this encounter Plan of Treatment Upcoming Encounters Date Type Department Care Team (Late Contact Info) Description 04/17/2024 9:00 AM CDT Virtual Visit [facility] [address] [facility] [address] [place] [address] Rocio Mccarthy MD [address] [place] [address] [address] [place] [address] Scheduled Referrals Name Type Priority Associated Diagnoses Orde r Schedule [facility] Office Visit Referral Routine: Next available opening History of prior with short cervix, currently Expected: 07/26/2023 (Approximate), Expires: 05/17/2024 documented as of this encounter Results * [facility] US Comprehensive Single (07/26/2023 2:32 PM [...] ? Study Date: ??07/26/2023 1:18pm Pat. NO: ??[id number] ?Referring ??MD: SERGIO ZACHARIAH Site: ??[facility] ? Cad Manager: Phylicia Perkins RDMS : ??1995 ?Age: ?? [...] ? 0 lb 7 ?oz EFW [id number]) Head / Face / Neck Biometry: Parts Specialist ? 5.4 ? mm CM ?5.3 ? [...] view. Superior vena cava. Inferior vena cava. 2-xpmvwu-sodklbf view. Cardiac ? position. Cardiac size. Cardiac [...] ?Visualized Left Ovary ?Visualized CONSULTATION ----- Type: [facility] CONSULTATION I was asked to see [...] up to 24 weeks (ordered at [facility] in 1 and 2 weeks). 3) We would offer a cerclage if the cervix became < 10 mm or was dilated prior to 24 weeks. 4) In addition we will reassess the anatomy at [facility] in 2 weeks. For the history [...] GARCIA Study Date: 07/26/2023 1:18pm Pat. NO: [id number] Referring MD: SERGIO SONI Site: [facility] Cad Manager: Phylicia Perkins RDMS : 1995 Age: 28 [...] d18 w + 0 d 12/27/2023 U/S 07/26/2023ased upon AC, BPD, Femur, HC17 w + [...] (lb,oz) 0 lb 7 oz EFW by [facility]els[facility] (BIN-MR-QJ-FL) Head / Face / Neck Biometry: Parts Specialist 5.4 mm CM 5.3 mm Nasal bone [...] arch view. Superior vena cava. Inferior vena cava.5-epqfxl-qpozevp view. Cardiac position. Cardiac size. Cardiacrhythm. Right [...] Left Ovary Visualized CONSULTATION ----- Type: [facility] CONSULTATION I was asked to see [...] up to 24 weeks (ordered at [facility] in 1 and2 weeks). 3) We would offer a cerclage if the cervix became < 10 mm or was dilatedprior to 24 weeks. 4) In addition we will reassess the anatomy at [facility] in 2 weeks. For the history [...] for further counseling. Return to [facility] for continued care. Thank-you for the opportunity [...] with no funneling noted. Candice Conti MD [facility] ORDERAB LES documented in this encounter Visit Diagnoses Diagnosis History of prior with short cervix, currently - Primary History of prior with short cervix, currently documented in this encounter Care Teams Hebrew Professor Relationship Specialty Start Date End Date Billie Guadarrama PCP - General 12/17/19 Rocio Mccarthy MD [address] [facility] [address] [place] [address] Assigned Endocrinology Provider 04/24/22 documented as of this encounter
--- OUTSIDE RECORDS SUMMARY | 2023-10-24 01:24 | XMS_ITS | Encounter Summary ---
Author Name Unknown Organization [facility] Address [address] [place] [address]. [address] Care Team Providers Care Electronic Warfare Technician Name Role Phone Billie Guadarrama Primary Care Provider Rocio Mccarthy MD Unavailable [phone] rEica Tristan MD Unavailable [phone] Encounter Details Date Type Department Care Team (Late st Contact Info) Description 05/31/2022 MyC Medical Advice [facility] [address] [facility] [address] [place] [address] Rocio Mccarthy MD [address] [place] [address] Social History Tobacco Use Types [...] Sex Assigned at Female 10/05/2020 9:54 PM ELECTRIC DISTRIBUTION CHECKER Gender Identity Female 10/05/2020 9:54 PM ELECTRIC DISTRIBUTION CHECKER Sexual Orientation Straight 10/05/2020 9: 54 PM ELECTRIC DISTRIBUTION CHECKER documented as of this encounter Miscellaneous Notes * Telephone Encounter - Loren Gillespie RN - 06/01/2022 7:59 AM CDT Last OV 04/19/22 Next OV: none scheduled At 04/19 visit levothyroxine increased to 125 mcg per day. Labs to be repeated around 06/20. documented in this encounter Plan of Treatment Upcoming Encounters Date Type Department Care Team (Late st Contact Info) Description 04/17/2024 9:00 AM CDT Virtual Visit [facility] [address] [facility] [address] [place] [phone] Rocio Mccarthy MD [address] [place] [address] documented as of this encounter Visit Diagnoses Not on filedocumented in this encounter Care Teams Electronic Warfare Technician Relationship Specialty Start Date End Date Billie Guadarrama PCP - General 12/17/19 Rocio Mccarthy MD [address] [place] [address] Assigned Endocrinology Provider 04/24/22 Erica Tristan MD [address] [place], [place] [address] Assigned OBGYN Provider 08/06/23 documented as of this encounter
--- OUTSIDE RECORDS SUMMARY | 2023-10-24 01:24 | XMS_ITS | Encounter Summary ---
Author Name Unknown Organization [facility] Address [address] [place] [address]. 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 I put her down for 06/21 at 10:30 for a video visit. Maritza Harrell CMA [facility] [phone] * Telephone Encounter - Chelita Harrell CMA - 06/08/2023 8:50 AM CDT Message sent via [employer]. Maritza Harrell CMA [facility] [phone] * Telephone Encounter - Nahed Woodruff - 06/06/2023 11:43 AM CDT .- lmtcb x2 * Telephone Encounter - Janice Woodruff - 06/02/2023 11:59 AM CDT 24- lmtcb x1 to schedule with Dr. Mccarthy * Telephone Encounter - Rocio Mccarthy MD - 05/31/2023 2:02 PM CDT Ok for free t3. She is not on t3 supplement * Telephone Encounter - Nahed Woodruff - 05/31/2023 11:28 AM CDT .22- lmtcb x1 * Telephone Encounter - Ramya Lugo RN - 05/30/2023 1:27 PM CDT Please advise if okay to add T3 and free T3 per pt request. * Telephone Encounter - Rocio Mccarthy MD - 05/30/2023 1:24 PM CDT + Ok for ANGÉLICA * Telephone Encounter - Ramya Lugo RN - 05/30/2023 11:23 AM CDT Pt has not been scheduled for follow up. Please advise if able to use ANGÉLICA on a day with only one slot available. TSH and free T4 ordered. Pt also requesting T3 and free T3. Per 04/02/23 TE: Based on labs recommend to decrease levothyroxine to 125 mcg/day (from 137 mcg/day) Labs in 3 months Please make a lab appointment for blood work and follow up clinic appointment in 1 week after that to discuss results. Last visit was 12/2022 so follow-up appointment is important Please inform patient and help schedule virtual (video preferred)/ clinic visit. OK to book in next available open ANGÉLICA slot. (/2) Please note that there are 2 ANGÉLICA slots/day. Please make sure that 1 ANGÉLICA slot is available for urgent needs. Let me know if you have any questions. documented in this encounter Plan of Treatment Upcoming Encounters Date Type Department Care Team (Late st Contact Info) Description 04/17/2024 9:00 AM CDT Virtual Visit [facility] [address] [place] [address] Rocio Mccarthy MD [address] [place] [address] documented as of this encounter Results * T3, Free (06/07/2023 3:33 PM CDT) T3 Free 2.4 2.0 - 4.4 pg/mL 06/07/2023 8:40 PM CDT [facility] Blood BLOOD SPECIMEN / Unknown Venipuncture / Unknown 06/07/2023 3:33 PM CDT 06/07/2023 3:33 PM CDT Rocio Mccarthy MD LAB - BLOOD ORDER [facility] Core Lab [address] [facility], [address] [address] [phone] documented in this encounter Visit Diagnoses Diagnosis 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
--- OUTSIDE RECORDS SUMMARY | 2023-10-24 01:24 | XMS_ITS | Encounter Summary ---
Author Name Unknown Organization [facility] Address [address] [place] [address]. [place] [address] Care Team Providers Care Documentation Liaison Name Role Phone Selinsusan Billie Primary Care Provider [phone] Anthony Shaffer MD Unavailable [phone] Rocio Mccarthy MD Unavailable Erica Tristan MD Unavailable [phone] Encounter Details Date Type Department Care Team (Late st Contact Info) Description 04/19/2022 MyC Medical Advice [address] [place] [phone] Jina Harrell V, RN Social History Tobacco Use Types Packs/Day Years [...] Sex Assigned at Female 10/05/2020 9:54 PM COMMUNICATION INSTRUCTOR Gender Identity Female 10/05/2020 9:54 PM COMMUNICATION INSTRUCTOR Sexual Orientation Straight 10/05/2020 9: 54 PM COMMUNICATION INSTRUCTOR COVID-19 Exposure Response Date Recorded In the last 10 days, have yo u been in contact with someone who was confirmed or suspected to have Coronavirus/COVID-19? No / Unsure 04/05/2022 11:57 AM CDT documented as of this encounter Plan of Treatment Upcoming Encounters Date Type Department Care Team (Late st Contact Info) Description 04/17/2024 9:00 AM CDT Virtual Visit [facility] [address] [facility] [address] [place] [address] Rocio Mccarthy MD [address] [place] [address] documented as of this encounter Visit Diagnoses Not on filedocumented in this encounter Care Teams Documentation Liaison Relationship Specialty Start Date End Date Billie Guadarrama PCP - General 12/17/19 Anthony Shaffer MD [address] [place], [place] [id number] Assigned OBGYN Provider 05/10/21 Rocio Mccarthy MD [address] [place], [place] [address] Assigned Endocrinology Provider 04/24/22 Erica Tristan MD [address] [place], [place] [id number] Assigned OBGYN Provider 08/06/23 documented as of this encounter
--- OUTSIDE RECORDS SUMMARY | 2023-10-24 01:24 | XMS_ITS | Encounter Summary ---
Author Name Unknown Organization [facility] Address [address] [place] [address]. [place] [address] Care Team Providers Care Monomer Recovery Operator Name Role Phone Chiara Billie Primary Care Provider [phone] Rocio Mccarthy MD Unavailable [phone] Encounter Details Date Type Department Care Team (Late st Contact Info) Description 03/30/2023 4:[address] 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 No / Unsure 03/30/2023 3:52 PM CDT documented as of this encounter Miscellaneous Notes * Result Encounter Note - Rocio Mccarthy MD - 03/30/2023 4:00 PM CDT Altag[place] Recently done endocrinology lab test/ imaging test showed: Based on labs decrease levothyroxine dose to 125 mcg/day Prescription sent. Repeat labs and follow-up in 3 months Please make a lab appointment for blood work and follow up clinic appointment in 1 week after that to discuss results. Here is a copy for your records. Please call endocrinology clinic ( [phone]) if questions. Rocio Mccarthy MD Endocrinology [facility] April 02, 2023 documented in this encounter Plan of Treatment Upcoming Encounters Date Type Department Care Team (Late st Contact Info) Description 04/17/2024 9:00 AM CDT Virtual Visit 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70 ng/dL 03/30/2023 9:24 PM CDT [facility] Blood STRUCTURE OF LEFT UPPER LIMB / Unknown Venipuncture / Unknown 03/30/2023 3:56 PM CDT 03/30/2023 3:56 PM CDT Rocio Mccarthy MD LAB - BLOOD ORDER [facility] Core Lab [address] [facility], [address] [address], [facility] [phone] documented in this encounter Visit Diagnoses Diagnosis 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
--- OUTSIDE RECORDS SUMMARY | 2023-10-24 01:24 | XMS_ITS | Encounter Summary ---
Author Name Unknown Organization [place] Address [address] [facility] [place] [address] Care Team Providers Care Banking Supervisor Name Role Phone Chiara Billie Primary Care Provider [phone] Rocio Mccarthy MD Unavailable [phone] Encounter Details Date Type Department Care Team (Late Contact Info) Description 05/12/2023 Medical Correspondence [facility] [address] [place] [address] Outside, Provider Social History Tobacco Use Types Packs/Day Years [...] Sex Assigned at Female 10/05/2020 9:54 PM SERVER Gender Identity Female 10/05/2020 9:54 PM SERVER Sexual Orientation Straight 10/05/2020 9: 54 PM SERVER documented as of this encounter Plan of Treatment Upcoming Encounters Date Type Department Care Team (Late Contact Info) Description 04/17/2024 9:00 AM CDT Virtual Visit [place] [address] [place] [phone] Rocio Mccarthy MD [address] [address] [place] [address] documented as of this encounter Visit Diagnoses Not on filedocumented in this encounter Care Teams Banking Supervisor Relationship Specialty Start Date End Date Billie Guadarrama PCP - General 12/17/19 Rocio Mccarthy MD [address] [place] [address] Assigned Endocrinology Provider 04/24/22 documented as of this encounter
--- OUTSIDE RECORDS SUMMARY | 2023-10-24 01:24 | XMS_ITS | Encounter Summary ---
Author Name Unknown Organization [place] Address [address] [place] [address]. [place] [address] Care Team Providers Care Wood Piler Name Role Phone Selinsusan Billie Primary Care Provider [phone] Anthony Shaffer MD Unavailable [phone] Rocio Mccarthy MD Unavailable [phone] Erica Tristan MD Unavailable [phone] Encounter Details Date Type Department Care Team (Late st Contact Info) Description 01/06/2022 MyC Medical Advice [address] [place] [address] Jina Harrell V, RN Social History Tobacco [...] of Binge Drinking Not on file 10/2019 Sex and Gender Information Value Date Recorded Sex Assigned at Female 10/05/2020 9:[address] IN THEATER ATTENDANT Gender Identity Female 10/05/2020 9:[address] IN THEATER ATTENDANT Sexual Orientation Straight 10/05/2020 9: [address] IN THEATER ATTENDANT COVID-19 Exposure Response Date Recorded In the last month, have you been in contact with someone who was confirmed or suspected to have Coronavirus / COVID-19? No / Unsure 01/05/2022 1:29 PM CDT documented as of this encounter Plan of Treatment Upcoming Encounters Date Type Department Care Team (Late st Contact Info) Description 04/17/2024 9:00 AM CDT Virtual Visit [facility] [address] [place] [phone] Rocio Mccarthy MD [address] [place] [address] documented as of this encounter Visit Diagnoses Not on filedocumented in this encounter Care Teams Wood Piler Relationship Specialty Start Date End Date Billie Guadarrama PCP - General 12/17/19 Anthony Shaffer MD [address] [place], [place] [address] Assigned OBGYN Provider 05/10/21 Rocio Mccarthy MD [address] [place] [address] Assigned Endocrinology Provider 04/24/22 Erica Tristan MD [address] [place], [place] [address] Assigned OBGYN Provider 08/06/23 documented as of this encounter
--- OUTSIDE RECORDS SUMMARY | 2023-10-24 01:24 | XMS_ITS | Encounter Summary ---
Author Name Unknown Organization [facility] Address [address] [place] [address]. [place] [address] Care Team Providers Care Rides Attendant Name Role Phone Billie Guadarrama Primary Care Provider [phone] Rocio Mccarthy MD Unavailable [phone] Reason for Referral * Consultation (Routine: Next available opening) - Pending Review Specialty Diagnoses / Procedures Referred By Contac t Referred To Contact Diagnoses related condition, antepartum [place] [id number] [place] [address] Maternal [facility] [address] [facility] [address] [place] [address] Referral ID Status Reason Start Date Expiration Date V isits Requested Visits Authorized [id number] Pending Review 05/12/2023 05/11/2024 1 1 Question Answer Preferred Location: [facility] [place] 12/27/2023 Ultrasound MFM Recommendation US PROC NONE MFM Issue OTHER (enter details in Comments) - labor, 287.51-personal history of obesity E66.9 JUAN KRAMER Consultation (unrelated to Ultrasound findings): Yes Inflammatory Bowel Disease Clinic: Joint MFM and GI Consultation: No Chronic Kidney Disease: Joint MFM and Nephrology Consultation No Genetic Counseling Consultation: No fax [facility] January Christina [phone] Comments labor, 287.51-personal history of obesity E66.9 Encounter Details Date Type Department Care Team (Latest Contact Info) Description 05/12/2023 Transcribe Orders [facility] [place] [address] [place] [phone] Marely Vasquez [facility] [address] [place] [address] related condition, antepartum (Primary Dx) Social History Tobacco Use Types [...] Sex Assigned at Female 10/05/2020 9:54 PM CLAIM SERVICE REPRESENTATIVE Gender Identity Female 10/05/2020 9:54 PM CLAIM SERVICE REPRESENTATIVE Sexual Orientation Straight 10/05/2020 9: 54 PM CLAIM SERVICE REPRESENTATIVE documented as of this encounter Plan of Treatment Upcoming Encounters Date Type Department Care Team (Late st Contact Info) Description 04/17/2024 9:00 AM CDT Virtual Visit [facility] [address] [place] [address] Rocio Mccarthy MD [address] [place] [address] Scheduled Referrals Name Type Priority Associated Diagnoses Orde r Schedule [facility]tr Referral - Referral Routine: Next available opening related condition, antepartum Expected: 05/12/2023 (Approximate), Expires: 11/08/2023 documented as of this encounter Visit Diagnoses Diagnosis related condition, antepartum- Primary documented in this encounter Care Teams Rides Attendant Relationship Specialty Start Date End Date Billie Guadarrama PCP - General 12/17/19 Rocio Mccarthy MD [address] [facility] [address] [place] [address] Assigned Endocrinology Provider 04/24/22 documented as of this encounter
--- OUTSIDE RECORDS SUMMARY | 2023-10-24 01:24 | XMS_ITS | Encounter Summary ---
Author Name Unknown Organization [facility] Address [address] [place] [address]. [place] [address] Care Team Providers Care Nuclear Reactor Technician Name Role Phone Billie Guadarrama Primary Care Provider Rocio Mccarthy MD Unavailable [phone] Encounter Details Date Type Department Care Team (Late st Contact Info) Description 04/02/2023 Telephone [facility] [address] [place] [address] Rocio Mccarthy MD [address] [place], [place] [address] Social History Tobacco Use Types Packs/Day Years [...] Sex Assigned at Female 10/05/2020 9:54 PM SOLAR INSTALLATION MANAGER Gender Identity Female 10/05/2020 9:54 PM SOLAR INSTALLATION MANAGER Sexual Orientation Straight 10/05/2020 9: 54 PM SOLAR INSTALLATION MANAGER COVID-19 Exposure Response Date Recorded In the last 10 days, have yo u been in contact with someone who was confirmed or suspected to have Coronavirus/COVID-19? No / Unsure 03/30/2023 3:52 PM CDT documented as of this encounter Miscellaneous Notes * Telephone Encounter - Rocio Mccarthy MD - 04/02/2023 12:01 PM CDT Latest Ref Rng 03/30/2023 3:56 PM ENDO THYROID LABS-[facility] TSH 0.30 - 4.20 uIU/mL 0.06 (L) Free T3 2.0 - 4.4 pg/mL T3, Reverse ng/dL 9.0 - 27.0 ng/dL FREE T4 0.90 - 1.70 ng/dL 1.67 Based on labs recommend to decrease levothyroxine [...] book in next available open ANGÉLICA slot. (/) Please note that there are 2 ANGÉLICA slots/day. Please make sure that 1 ANGÉLICA slot is available for urgent needs. Let me know if you have any questions. Prescription sent. Labs placed Time spent more than 5 minutes Please note that schedule gets booked out [...] if you need any help with scheduling. documented in this encounter Plan of Treatment Upcoming Encounters Date Type Department Care Team (Late st Contact Info) Description 04/17/2024 9:00 AM CDT Virtual Visit [facility] [address] [place] [address] Rocio Mccarthy MD [address] [place] [address] documented as of this encounter Results * (ABNORMAL) TSH (06/07/2023 3:33 PM CDT) TSH 4.86(H) 0.30 - 4.20 uIU/mL 06/07/2023 8:40 PM CDT [facility] Blood BLOOD SPECIMEN / Unknown Venipuncture / Unknown 06/07/2023 3:33 PM CDT 06/07/2023 3:33 PM CDT Rocio Mccarthy MD LAB - BLOOD ORDER [facility] Core Lab [address] [facility][[address]], [address] [address], [facility] [phone] * T4 free (06/07/2023 3:33 PM CDT) Free T4 1.03 0.90 - 1.70 ng/dL 06/07/2023 8:40 PM CDT [facility] Blood BLOOD SPECIMEN / Unknown Venipuncture / Unknown 06/07/2023 3:33 PM CDT 06/07/2023 3:33 PM CDT Rocio Mccarthy MD LAB - BLOOD ORDER LORNA [facility] [place] Core Lab [address] [facility][[address]], [address] [place] [address], [facility] [phone] documented in this encounter Visit Diagnoses Diagnosis 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
--- OUTSIDE RECORDS SUMMARY | 2023-10-24 01:24 | XMS_ITS | Encounter Summary ---
Author Name Unknown Organization [facility] Address [address] [place] [address]. [place] [address] Care Team Providers Care Air Conditioning Technician Name Role Phone Billie Guadarrama Primary Care Provider Rocio Mccarthy MD Unavailable [phone] Anthony Shaffer MD Unavailable Rocio Mccarthy MD Unavailable [phone] Erica Tristan MD Unavailable [phone] Reason for Visit * Reason Onset Date Comments MyChart Communication 10/05/2020 Encounter Details Date Type Department Care Team (Latest Contact Info) Description 10/05/2020 MyC Medical Advice [facility] [address] [place] [address] Rocio Mccarthy MD [address] [facility] [address] [place] [address] MyChart Communication Social History Tobacco Use Types Packs/Day Years [...] Sex Assigned at Female 10/05/2020 9:54 PM SANDWICH WRAPPER Gender Identity Female 10/05/2020 9:54 PM SANDWICH WRAPPER Sexual Orientation Straight 10/05/2020 9: 54 PM SANDWICH WRAPPER COVID-19 Exposure Response Date Recorded In the last month, have you been in contact with someone who was confirmed or suspected to have Coronavirus / COVID-19? No / Unsure 10/08/2020 8:54 AM SANDWICH WRAPPER documented as of this encounter Miscellaneous Notes * Telephone Encounter - Janis Kendrick, RN - 10/06/2020 3:51 PM CST My chart message sent by patient. My chart message sent to patient. WICH WRAPPER documented in this encounter Plan of Treatment Upcoming Encounters Date Type Department Care Team (Late st Contact Info) Description 04/17/2024 9:00 AM CDT Virtual Visit [facility] [address] [facility] [address] [place] [address] Rocio Mccarthy MD [address] [address] [place], [place] [address] documented as of this encounter Visit Diagnoses Not on filedocumented in this encounter Care Teams Air Conditioning Technician Relationship Specialty Start Date End Date Billie Guadarrama PCP - General 12/17/19 Rocio Mccarthy MD [address] [place], [place] [address] Assigned Endocrinology Provider 08/01/20 11/28/21 Anthony Shaffer MD [address] [place], [place] [address] Assigned OBGYN Provider 05/10/21 Rocio Mccarthy MD [address] [place] [address] Assigned Endocrinology Provider 04/24/22 Erica Tristan MD [address] [place] [address] Assigned OBGYN Provider 08/06/23 documented as of this encounter
--- OUTSIDE RECORDS SUMMARY | 2023-10-24 01:24 | XMS_ITS | Encounter Summary ---
Author Name Unknown Organization [facility] Address [address] [place] [address]. [place] [address] Care Team Providers Care Director Community Organization Name Role Phone Billie Guadarrama Primary Care Provider [phone] Rocio Mccarthy MD Unavailable [phone] Anthony Shaffer MD Unavailable [phone] Rocio Mccarthy MD Unavailable [phone] Erica Tristan MD Unavailable [phone] Encounter Details Date Type Department Care Team (Late st Contact Info) Description 06/08/2021 MyC Medical Advice [facility] [address] [facility] [address] [place] [address] Chelita Harrell, [facility] Social History Tobacco Use Types Packs/Day Years [...] of Binge Drinking Not on file 10/2019 Comments Yes Sex and Gender Information Value Date Recorded Sex Assigned at Female 10/05/2020 9:54 PM RESIDENTIAL AIDE Gender Identity Female 10/05/2020 9:54 PM RESIDENTIAL AIDE Sexual Orientation Straight 10/05/2020 9: 54 PM RESIDENTIAL AIDE COVID-19 Exposure Response Date Recorded In the last month, have you been in contact with someone who was confirmed or suspected to have Coronavirus / COVID-19? No / Unsure 06/04/2021 4:39 PM CDT documented as of this encounter Plan of Treatment Upcoming Encounters Date Type Department Care Team (Late st Contact Info) Description 04/17/2024 9:00 AM CDT Virtual Visit [facility] [address] [facility] [address] [place] [phone] Rocio Mccarthy MD [address] [place] [address] documented as of this encounter Visit Diagnoses Not on filedocumented in this encounter Care Teams Director Community Organization Relationship Specialty Start Date End Date SelinsusanBillie PCP - General 12/17/19 Rocio Mccarthy MD [address] [place] [address] Assigned Endocrinology Provider 08/01/20 11/28/21 Anthony Shaffer MD [address] [place], [place] [address] Assigned OBGYN Provider 05/10/21 Rocio Mccarthy MD [address] [place] [address] Assigned Endocrinology Provider 04/24/22 Erica Tristan MD [address] [place], [place] [address] Assigned OBGYN Provider 08/06/23 documented as of this encounter
--- OUTSIDE RECORDS SUMMARY | 2023-10-24 01:24 | XMS_ITS | Encounter Summary ---
Author Name Unknown Organization [facility] Address [address] [place] [address]. [place] [address] Care Team Providers Care Kosher Sealer Name Role Phone Selinsusan Billie Primary Care Provider [phone] Rcoio Mccarthy MD Unavailable [phone] Encounter Details Date Type Department Care Team (Latest Contact Info) Description 03/30/2023 Travel Social History Tobacco Use Types Packs/Day [...] Sex Assigned at Female 10/05/2020 9:54 PM PACK PRESS OPERATOR Gender Identity Female 10/05/2020 9:54 PM PACK PRESS OPERATOR Sexual Orientation Straight 10/05/2020 9: 54 PM PACK PRESS OPERATOR COVID-19 Exposure Response Date Recorded In [...] [facility] [address] [place] [address] Rocio Mccarthy MD [address] [place] [address] documented as of this encounter Visit Diagnoses Not on filedocumented in this encounter Care Teams Kosher Sealer Relationship Specialty Start Date End Date Billie Guadarrama PCP - General 12/17/19 Rocio Mccatrhy MD [address] [place] [address] Assigned Endocrinology Provider 04/24/22 documented as of this encounter
--- OUTSIDE RECORDS SUMMARY | 2023-10-24 01:24 | XMS_ITS | Encounter Summary ---
Author Name Unknown Organization [place] Address [address] [place] [address]. [place] [address] Care Team Providers Care Curing Oven Attendant Name Role Phone Billie Guadarrama Primary Care Provider [phone] Anthony Shaffer MD Unavailable [phone] Rocio Mccarthy MD Unavailable [phone] Erica Tristan MD Unavailable [phone] Encounter Details Date Type Department Care Team (Late st Contact Info) Description 03/31/2022 MyC Medical Advice [facility] [address] [place] [address] Rocio Mccarthy MD [address] [place] [address] Social History Tobacco Use Types [...] Sex Assigned at Female 10/05/2020 9:54 PM DIRECTOR OF EVENT MARKETING Gender Identity Female 10/05/2020 9:54 PM DIRECTOR OF EVENT MARKETING Sexual Orientation Straight 10/05/2020 9: 54 PM DIRECTOR OF EVENT MARKETING documented as of this encounter Miscellaneous Notes * Telephone Encounter - Jina Harrell RN - 04/01/2022 8:21 AM CDT Okay to use ANGÉLICA spot documented in this encounter Plan of Treatment Upcoming Encounters Date Type Department Care Team (Late st Contact Info) Description 04/17/2024 9:00 AM CDT Virtual Visit [facility] [address] [facility] [address] [place] [address] Rocio Mccarthy MD [address] [place] [address] documented as of this encounter Visit Diagnoses Not on filedocumented in this encounter Care Teams Curing Oven Attendant Relationship Specialty Start Date End Date SelinsusanBillie PCP - General 12/17/19 Anthony Shaffer MD [address] [place], [place] [address] Assigned OBGYN Provider 05/10/21 Rocio Mccarthy MD [address] [place] [address] Assigned Endocrinology Provider 04/24/22 Erica Tristan MD [address] [place], [place] [address] Assigned OBGYN Provider 08/06/23 documented as of this encounter
--- OUTSIDE RECORDS SUMMARY | 2023-10-24 01:24 | XMS_ITS | Encounter Summary ---
Author Name Unknown Organization [facility] Address [address] [place] [address]. [place] [address] Care Team Providers Care Wound Care Physician Name Role Phone Billie Guadarrama Primary Care Provider Rocio Mccarthy MD Unavailable [phone] nAthony Shaffer MD Unavailable Rocio Mccarthy MD Unavailable Erica Tristan MD Unavailable [phone] Encounter Details Date Type Department Care Team (Latest Contact Info) Description 11/09/2021 MyC Medical Advice [facility] [address] [facility] [address] [place] [address] Rocio Mccarthy MD [address] [place] [address] 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 [...] Sex Assigned at Female 10/05/2020 9:54 PM CONFIGURATION TECHNICIAN Gender Identity Female 10/05/2020 9:54 PM CONFIGURATION TECHNICIAN Sexual Orientation Straight 10/05/2020 9: 54 PM CONFIGURATION TECHNICIAN documented as of this encounter Plan of Treatment Upcoming Encounters Date Type Department Care Team (Late st Contact Info) Description 04/17/2024 9:00 AM CDT Virtual Visit [facility] [address] [facility] [address] [place] [address] Rocio Mccarthy MD [address] [place] [address] documented as of this encounter Results * (ABNORMAL) T3 Free (11/18/2021 12:41 PM CONFIGURATION TECHNICIAN) T3 Free 1.5(L) 2.3 - 4.2 pg/mL 11/18/2021 6:34 PM CONFIGURATION TECHNICIAN [facility] Blood VENOUS BLOOD / Unknown Venipuncture / Unknown 11/18/2021 12:41 PM CONFIGURATION TECHNICIAN 11/18/2021 12:41 PM CONFIGURATION TECHNICIAN Rocio Mccarthy MD LAB - BLOOD ORDER [facility] [place] [address] [place] [address], Room [address] [phone] [phone] * (ABNORMAL) T4 free (11/18/2021 12:41 PM CONFIGURATION TECHNICIAN) Free T4 0.64(L) 0.76 - 1.46 ng/dL 11/18/2021 7:16 PM CONFIGURATION TECHNICIAN [facility] Blood VENOUS BLOOD / Unknown Venipuncture / Unknown 11/18/2021 12:41 PM CONFIGURATION TECHNICIAN 11/18/2021 12:41 PM CONFIGURATION TECHNICIAN Rocio Mccarthy MD LAB - BLOOD ORDER [facility] [address] [place] [address] Lab (no room number, 1st floor of clinic) [place] [address], [facility] [phone] * (ABNORMAL) TSH (11/18/2021 12:41 PM CONFIGURATION TECHNICIAN) TSH 104.91(H) 0.40 - 4.00 mU/L 11/18/2021 8:05 PM CONFIGURATION TECHNICIAN [facility]AT[facility] Blood VENOUS BLOOD / Unknown Venipuncture / Unknown 11/18/2021 12:41 PM CONFIGURATION TECHNICIAN 11/18/2021 12:41 PM CONFIGURATION TECHNICIAN Rocio Mccarthy MD LAB - BLOOD ORDER LORNA [facility] [address] [place] [address] Lab (no room number, 1st floor of clinic) [place] [address], [facility] [phone] * Thyroglobulin and Antibody Reflex (11/18/2021 12:41 PM CONFIGURATION TECHNICIAN) Thyroglobulin Antibody <20 <40 IU/mL 11/19/2021 1:39 PM CONFIGURATION TECHNICIAN SPECIALTY CORE/PROT/END O Blood VENOUS BLOOD / Unknown Venipuncture / Unknown 11/18/2021 12:41 PM CONFIGURATION TECHNICIAN 11/18/2021 12:41 PM CONFIGURATION TECHNICIAN Rocio Mccarthy MD LAB - BLOOD ORDER [facility]/PROT/ENDO [facility] Core/Prot/Endo [address] [facility], [address] [place] [address], [facility] [phone] * T3 reverse (11/18/2021 12:41 PM CONFIGURATION TECHNICIAN) T3, Reverse ng/dL 10.3 9.0 - 27.0 ng/dL 11/23/2021 4:48 PM CONFIGURATION TECHNICIAN [facility] Comment: INTERPRETIVE INFORMATION: Triiodothyronine, Reverse - LC-MS/MS This test was developed and its performance characteristics determined by [facility]. It has not been cleared or approved by the US Food and Drug Administration. This test was performed in a CLIA certified laboratory and is intended for clinical purposes. 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 documented in this encounter Care Teams Wound Care Physician Relationship Specialty Start Date End Date Billie Guadarrama PCP - General 12/17/19 Rocio Mccarthy MD [address] [place] [address] [address] [place], [place] [address] Assigned Endocrinology Provider 08/01/20 11/28/21 Anthony Shaffer MD [address] [id number] Assigned OBGYN Provider 05/10/21 Rocio Mccarthy MD [address] [place], [place] [id number] Assigned Endocrinology Provider 04/24/22 Erica Tristan MD [address] [place], [place] [id number] Assigned OBGYN Provider 08/06/23 documented as of this encounter
--- OUTSIDE RECORDS SUMMARY | 2023-10-24 01:25 | XMS_ITS ---
Author Name Unknown Organization [facility] Address [address] [place] [address] Care Team Providers Care Bag Shop Worker Name Role Phone Unavailable Unavailable Unavailable Surgery Details Not on file Complications Check Surgery Details section. Procedure Estimated Blood Loss Check Surgery Details section. Procedure Findings Check Surgery Details section. Procedure Specimens Taken Check Surgery Details section.
--- OUTSIDE RECORDS SUMMARY | 2023-10-24 01:25 | XMS_ITS | Encounter Summary ---
Author Name Unknown Organization [facility] Address [address] [place] [address]. [place] [address] Care Team Providers Care Housekeeping Supervisor Name Role Phone Tucker Michel MD Primary Care Provider [phone] Frw, None Primary Care Provider Unavailabl Billie Jensen Primary Care Provider [phone] Rocio Mccarthy MD Unavailable [phone] Anthony Shaffer MD Unavailable [phone] Rocio Mccarthy MD Unavailable [phone] Erica Tristan MD Unavailable [phone] Reason for Visit * Reason Comments Abstract Encounter Details Date Type Department Care Team (Late Contact Info) Description 05/22/2001 Abstract [facility] [place] Medical Records [place] [phone] Info Analyst, Sonja Social History Tobacco Use Types Packs/Day Years Used Date Smoking Tobacco: Never Assessed Comments:NO 2ND HAND SMOKE A T HOME Alcohol Use Standard Drinks/Week Comments Not Asked 0 (1 standard drink = 0.6 oz pur e alcohol) Sex and Gender Information Value Date Recorded Sex Assigned at Female 10/05/2020 9:54 PM HYDROELECTRIC STATION CHIEF Gender Identity Female 10/05/2020 9:54 PM HYDROELECTRIC STATION CHIEF Sexual Orientation Straight 10/05/2020 9: 54 PM HYDROELECTRIC STATION CHIEF documented as of this encounter Plan of Treatment Upcoming Encounters Date Type Department Care Team (Late Contact Info) Description 04/17/2024 9:00 AM CDT Virtual Visit [facility] [address] [place] [phone] Rocio Mccarthy MD [address] [place] [address] documented as of this encounter Visit Diagnoses Not on filedocumented in this encounter Care Teams Housekeeping Supervisor Relationship Specialty Start Date End Date Tucker Michel MD [facility] [place] [address] [place] [address] PCP - General 11/02/00 02/05/13 Frw, None PCP - General Family Practice 02/06/13 06/09/17 Billie Guadarrama PCP - General 12/17/19 Rocio Mccarthy MD [address] [place] [address] Assigned Endocrinology Provider 08/01/20 11/28/21 Anthony Shaffer MD [address] [place], [place] [address] Assigned OBGYN Provider 05/10/21 Rocio Mccarthy MD [address] [place], [place] [address] Assigned Endocrinology Provider 04/24/22 Erica Tristan MD [address] [place], [place] [address] Assigned OBGYN Provider 08/06/23 documented as of this encounter
--- OUTSIDE RECORDS SUMMARY | 2023-10-24 01:25 | XMS_ITS | Referral Summary ---
Author Name Unknown Organization [facility] Address [address] [place] [address] Care Team Providers Care Animal Warden Name Role Phone Unavailable Primary Care Provider Unavailabl e Source Comments Patient records contain information from all sites at [facility]. For routine questions regarding patient records, call [phone] during business hours, M-F 8:00 AM - 5:00 PM Central Time. Record requests for emergency care only can be directed to [phone] at any time.[facility] Immunizations Name Administration Dates Next Due DTaP ([employer], [employer]) 1997,1997, 1997 DTaP / Hib 09/19/1998 HepB, Unspecified 01/07/1998,1997,06/26/19 97 Hib, Unspecified 01/07/1998,1997, 7 IPV 1997,1997 MMR 09/19/1998 OPV 09/19/1998 ROBYN 12/23/1998 Social History Tobacco Use Types Packs/Day Years Used Date Smoking Tobacco: Never Nutrition Answer Date Recorded Nutrition: EVOO Fat Source Unknown 10/14 Nutrition: Servings of Fruits/Vegetables per Day Not on file 10/14/2021 Dental Answer Date Recorded Dental: Regular Dentist Unknown 10/14/19 Sex and Gender Information Value Date Recorded Sex Assigned at Female 10/15/2021 10:50 AM FORK TRUCK DRIVER Gender Identity Female 10/15/2021 10:50 AM FORK TRUCK DRIVER Sexual Orientation Not on file Last Filed Vital Signs Vital Sign Reading Time Taken Comments Blood Pressure 132/70 09/30/2014 4:00 PM FORK TRUCK DRIVER Vital sign result from Clinical Notes. Pulse 74 09/30/2014 4:00 PM FORK TRUCK DRIVER Vital sign result from Clinical Notes. Temperature - - Respiratory Rate - - Oxygen Saturation - - Inhaled Oxygen Concentration - - Weight 82.8 kg (182 lb 8.7 oz) 09/30/2014 4:00 PM FORK TRUCK DRIVER Vital sign result from Clinical Notes. Height 166.1 cm (5' 5.39) 09/30/2014 4 :00 PM FORK TRUCK DRIVER Vital sign result from Clinical Notes. Body Mass Index 30.01 09/30/2014 4:00 PM FORK TRUCK DRIVER Plan of Treatment Not on file [place] [id number]
--- OUTSIDE RECORDS SUMMARY | 2023-10-24 01:25 | XMS_ITS | Encounter Summary ---
Author Name Unknown Organization [facility] Address [address] [place] [address]. [place] [address] Care Team Providers Care Instrument Specialist Name Role Phone Billie Guadarrama Primary Care Provider [phone] Rocio Mccarthy MD Unavailable [phone] Anthony Shaffer MD Unavailable Rocio Mccarthy MD Unavailable [phone] Erica rTistan MD Unavailable [phone] Reason for Visit * Reason Onset Date Comments MyChart Communication 06/12/2020 Encounter Details Date Type Department Care Team (Latest Contact Info) Description 06/12/2020 MyC Medical Advice [facility] [address] [place] [address] Rocio Mccarthy MD [address] [facility] [address] [place] [address] MyChart Communication Social History Tobacco [...] Sex Assigned at Female 10/05/2020 9:54 PM BRAZER RESISTANCE Gender Identity Female 10/05/2020 9:54 PM BRAZER RESISTANCE Sexual Orientation Straight 10/05/2020 9: 54 PM BRAZER RESISTANCE COVID-19 Exposure Response Date Recorded In the last month, have you been in contact with someone who was confirmed or suspected to have Coronavirus / COVID-19? No / Unsure 05/29/2020 2:44 PM CDT documented as of this encounter Miscellaneous Notes * Telephone Encounter - Angelic Cavazos RN - 06/12/2020 9:07 AM CDT Please see [employer] message and advise. Thank you. documented in this encounter Plan of Treatment Upcoming Encounters Date Type Department Care Team (Late st Contact Info) Description 04/17/2024 9:00 AM CDT Virtual Visit [facility] [address] [facility] [address] [place] [address] Rocio Mccarthy MD [address] [place] [address] [address] [place], [place] [address] documented as of this encounter Visit Diagnoses Not on filedocumented in this encounter Care Teams Instrument Specialist Relationship Specialty Start Date End Date Billie Guadarrama PCP - General 12/17/19 Rocio Mccarthy MD [address] [place], [place] [address] Assigned Endocrinology Provider 08/01/20 11/28/21 Anthony Shaffer MD [address] [facility] [address] [place], [place] [address] Assigned OBGYN Provider 05/10/21 Rocio Mccarthy MD [address] [facility] [address] [place] [address] Assigned Endocrinology Provider 04/24/22 Erica Tristan MD [address] [facility] [address] [place], [place] [address] Assigned OBGYN Provider 08/06/23 documented as of this encounter
--- OUTSIDE RECORDS SUMMARY | 2023-10-24 01:25 | XMS_ITS | Encounter Summary ---
Author Name Unknown Organization [facility] Address [address] [place] [address]. [place] [address] Care Team Providers Care Biblical Studies Professor Name Role Phone Billie Guadarrama Primary Care Provider [phone] Rocio Mccarthy MD Unavailable [phone] Anthony Shaffer MD Unavailable [phone] Rocio Mccarthy MD Unavailable [phone] Erica Tristan MD Unavailable [phone] Encounter Details Date Type Department Care Team (Late st Contact Info) Description 08/01/2020 MyC Medical Advice [facility] [address] [place] [address] Rocio Mccarthy MD [address] [place] [address] Social History Tobacco Use Types [...] Sex Assigned at Female 10/05/2020 9:54 PM REGIONAL CRA Gender Identity Female 10/05/2020 9:54 PM REGIONAL CRA Sexual Orientation Straight 10/05/2020 9: 54 PM REGIONAL CRA documented as of this encounter Miscellaneous Notes * Telephone Encounter - Angelic Cavazos RN - 08/01/2020 1:21 PM CDT Please see MyChart message, does patient need to see derm? Please advise, Thank you. documented in this encounter Plan of Treatment Upcoming Encounters Date Type Department Care Team (Late st Contact Info) Description 04/17/2024 9:00 AM CDT Virtual Visit [facility] [address] [facility] [address] [place] [phone] Rocio Mccarthy MD [address] [address] [place] [address] documented as of this encounter Visit Diagnoses Not on filedocumented in this encounter Care Teams Biblical Studies Professor Relationship Specialty Start Date End Date Billie Guadarrama PCP - General 12/17/19 Rocio Mccarthy MD [address] [place] [address] Assigned Endocrinology Provider 08/01/20 11/28/21 Anthony Shaffer MD [address] [place], [place] [address] Assigned OBGYN Provider 05/10/21 Rocio Mccarthy MD [address] [place] [address] Assigned Endocrinology Provider 04/24/22 Erica Tristan MD [address] [address] Assigned OBGYN Provider 08/06/23 documented as of this encounter
--- OUTSIDE RECORDS SUMMARY | 2023-10-24 01:25 | XMS_ITS | Clinical Summary ---
Author Name Unknown Organization [facility] Address [address] [place] [address] Care Team Providers Care Pst Supervisor Name Role Phone Unavailable Primary Care Provider Unavailabl e Source Comments Patient records contain information from all sites at [facility]. For routine questions regarding patient records, call [phone] during business hours, M-F 8:00 AM - 5:00 PM Central Time. Record requests for emergency care only can be directed to [phone] at any time.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 Pulse 74 09/30/2014 4:00 PM MOTOR VEHICLE ESCORT DRIVER Vital sign result from Clinical Notes. Temperature - - Respiratory Rate - - Oxygen Saturation - - Inhaled Oxygen Concentration - - Weight 82.8 kg (182 lb 8.7 oz) 09/30/2014 4:00 PM MOTOR VEHICLE ESCORT DRIVER Vital sign result from Clinical Notes. Height 166.1 cm (5' 5.39) 09/30/2014 4 :00 PM MOTOR VEHICLE ESCORT DRIVER Vital sign result from Clinical Notes. Body Mass Index 30.01 09/30/2014 4:00 PM MOTOR VEHICLE ESCORT DRIVER Plan of Treatment Health Maintenance Due Date Last Done Comments Cervical Cancer Screening 1997 HIV Screening 1997 Hepatitis C Screening 1997 COVID-19 Vaccine (#1) 1997 Depression Screening (Annual PHQ-2) 10/10/2023 DTaP,Tdap,and Td Vaccines (11 - Td or Tdap) 10/19/2033 10/19/2023, 05/11/2021, 09/10/2020, Additional history exists Hepatitis B Vaccines Completed 01/07/1998, 01/07/1998, 1997, Additional history exists HPV Vaccines Completed 10/27/2012, 06/10, 07/06/2011 Influenza Vaccine Completed 07/07/2023, , 07/14/2020, Additional history exists Pneumococcal vaccine (0-64 years) Aged Out No longer eligible based on patient's age to complete this topic [place] [id number]
== END 2023-10-19 10:52 | disposition home or self-care (01) ==
LOC: AMB 10-24 01:20
PROVIDERS: PCP Family Medicine; Visit Provider Family Medicine
DX: O60.03 Preterm labor without delivery, third trimester (principal); Z3A.30 30 weeks gestation of pregnancy
CPT/HCPCS: A0425; A0427

== ENCOUNTER 2023-10-24 13:48 | Outpatient (CLI) | payer MEDICAID, SELFPAY ==
--- NOTE | 2023-10-24 14:00 | CRLHL7_ITS ---
For Patients: As a result of the Century Cures Act, medical imaging exams and procedure reports are released immediately into your electronic medical record. You may view this report before your referring provider. If you have questions, please contact your health care provider. INDICATION: IUGR. COMPARISON: None. TECHNIQUE: Ultrasound OB pelvis biophysical profile. Real time san scale imaging of the fetus was performed without non-stress testing. FINDINGS: Sonographic imaging demonstrates a single living intrauterine gestation. The fetus demonstrates a regular cardiac rate of 152 beats per minute. The fetus has a cephalic orientation. The placenta lies posteriorly. Umbilical artery S/D ratio measures 2.5. Single deepest pocket measures 5.0 cm (2/2). The fetus was active (2/2). There was normal flexion and extension of the trunk and extremities (2/2). The fetus demonstrated normal breathing movements (2/2). IMPRESSION: Normal biophysical profile score 8 out of 8. Dictated by Rina Singh MD @ 10/25/2023 2:28:48 AM (Electronically Signed)
== END 2023-10-24 13:49 | disposition home or self-care (01) ==
LOC: US 13:48
PROVIDERS: PCP Family Medicine; Visit Provider Obstetrics & Gynecology
DX: O36.5990 Maternal care for other known or suspected poor fetal growth, unspecified trimester, not applicable or unspecified (principal)
CPT/HCPCS: 76819; 76820

== ENCOUNTER 2023-11-18 13:06 | Outpatient (CLI) | payer MEDICAID, SELFPAY ==
[2023-11-18 17:52] LABS: Bacterial Vaginosis* Not Detected (No Detected); Candida glab/krus Not Detected (No Detected); Candida species Not Detected (No Detected); Trichomonas vaginalis Not Detected (No Detected)
== END 2023-11-18 13:07 | disposition home or self-care (01) ==
PROVIDERS: PCP Family Medicine; Visit Provider Obstetrics & Gynecology
DX: N89.8 Other specified noninflammatory disorders of vagina (principal); E06.3 Autoimmune thyroiditis
CPT/HCPCS: 81513; 84443; 87481; 87661

== ENCOUNTER 2023-11-24 07:26 | Outpatient (CLI) | payer MEDICAID, SELFPAY ==
--- NOTE | 2023-11-24 07:15 | US_ITS ---
Patient: TAYLOR RAHMAN Facility:?[facility] Patient ID:?[id number] Site Patient ID:?[id number]. Site :?1997 Study:?US-OB Pelvis FOLLOW UP-11/24/2023 7:59:01 AM Ordering Physician:?KRISTEL RODARTE Final Report: INDICATION: IUGR, WEEKLY ASH AND UA DOPPLER CHECK COMPARISON: 11/04/2023 TECHNIQUE: Real time san scale imaging of the fetus was performed as well as color Doppler and spectral Doppler analysis of the umbilical artery. Without non-stress testing. FINDINGS: Sonographic imaging demonstrates a single living intrauterine gestation. Fetus demonstrates a regular cardiac rate of 126 beats per minute. Fetus has a vertex position. The placenta is posterior. The umbilical artery demonstrates adequate diastolic blood flow. The S/D ratio measures 2.2. The amniotic fluid volume appears normal and there is a single deepest pocket measurement of 5.6 cm. ASH 18.2 cm. IMPRESSION: Normal amniotic fluid index and umbilical artery Doppler. Dictated by Rashad Yin MD @ 11/24/2023 11:49:11 AM Signed by:?Rashad Yin MD @11/24/2023 11:49:11 AM (Electronic Signature)
--- OUTSIDE RECORDS SUMMARY | 2023-11-24 07:28 | XMS_ITS | Clinical Summary ---
Author Name Unknown Organization [facility] Address [place], [place] [address] Care Team Providers Care Senior Marketing Specialist Name Role Phone Vasquez Ridley MD Unavailable Sanjeev Brar MD Unavailable [phone] Pcp, No Primary Care Provider Unavailabl e Allergies Active Allergy Reactions Criticality Noted Date Comments Drospirenone-Ethinyl Estradiol Rash,Headache Oxycodone-Acetaminophen Rash 01/17/2014 Medications Medication Sig Dispensed Refills Start Date End Date Status nystatin powder (MYCOSTATIN) powderIndications:Y east dermatitis USE TOPICALLY TO AFFECTED AREA(S) 2 TO 4 TIMES DAILY DIRECTED 60 g 1 11/21/2021 Active progesterone micronized (PROMETRIUM) 200 mg capsule Insert 200 mg into the vagina at bedtime. 0 09/06/2023 Active cholecalciferol (Vitamin D-3) 2,000 unit capsuleIndications: Vitamin D deficiency Take 1 Capsule (2,000 units) by mouth once daily. 90 Capsule 3 10/16/2023 Active Active Problems Problem Noted Date Diagnosed Date [...] Encounters Date Type Department Care Team Description 11/23/2023 10:00 AM WAREHOUSE SORTER Office Visit [facility] [address] [facility] [place] [address] Sarai Veliz [facility] Visit 11/23/2023 Travel 11/09/2023 11:00 AM WAREHOUSE SORTER Office Visit [facility] [address] [facility] [place] [address] Sarai Veliz COURIER DELIVERY DRIVER [facility] Visit 11/09/2023 Travel 10/26/2023 12:30 PM WAREHOUSE SORTER Office Visit [facility] [address] [place] [address] Sarai Veliz COURIER DELIVERY DRIVER [facility] Visit 10/25/2023 Travel 10/24/2023 Orders Only [facility] Scanner 1 scan: (1-Ord) [facility] BPP W UA DOPPLER, 10/24/2023 10/20/2023 Telephone [facility] [address] [facility] [place] [address] Sarai Veliz LICSW Late Cancel Appointment 10/16/2023 Orders Only [facility] [address] [place] [address] Billie Guadarrama DO <No scans attached> 10/13/2023 10:50 AM WAREHOUSE SORTER Office Visit [facility] [address] [place] [address] Billie Guadarrama DO Referral (psychology) 10/13/2023 Travel 09/06/2023 Orders Only [facility] Scanner 1 scan: (1-Ord) [facility] OB TRANSVAGINAL, 09/06/2023 08/30/2023 Orders Only [facility] Scanner 1 scan: (1-Ord) [facility] OB TRANSVAGINAL, 08/30/2023 from Last 3 Months Immunizations Name Administration [...] Comments Blood Pressure 114/70 10/13/2023 10:44 AM WAREHOUSE SORTER Pulse 85 10/13/2023 10:44 AM WAREHOUSE SORTER Temperature 36.7 ??C (98 ??F) 10/14/2022 1:05 PM WAREHOUSE SORTER Respiratory Rate 18 10/06/2022 8:41 PM WAREHOUSE SORTER Oxygen Saturation 98% 10/13/2023 10:44 AM WAREHOUSE SORTER Inhaled Oxygen Concentration - - Weight 112.9 kg (249 lb) 10/13/2023 10:44 AM WAREHOUSE SORTER Height 165.1 cm (5' 5) 10/14/2022 1:05 PM WAREHOUSE SORTER Body Mass Index 41.44 10/14/2022 1:05 PM WAREHOUSE SORTER Plan of Treatment Upcoming Encounters Date Type Department Care Team (Late st Contact Info) Description 12/07/2023 10:00 AM WAREHOUSE SORTER Office Visit [facility] [address] [place] [address] Sarai Veliz, [facility] [address] [place] [address] 01/16/2024 11:00 AM CDT Office Visit [facility] [address] [place] [phone] Tiffanie Gibson, [facility] [address] [place] [address] Health Maintenance Due Date Last Done Comments COVID-19 vaccine series (#1) 1997 HIV for age 15-65 2012 BMI (ht and wt on same day) for age 18+ 10/14/2023 10/14/2022, 07/14/2020, 12/14/2019, Additional history exists Pap test for age 21-65 12/04/2023 , 12/04/2020, 12/26/2018, Additional history exists Depression screening [...] Procedure Name Priority Date/Time Associated Diagnosis Comments SCAN-ULTRASOUND REPORT 10/24/2023 12:00 AM WAREHOUSE SORTER VITAMIN D 25 (DEFICIENCY) Routine 10/13/2023 11:24 AM WAREHOUSE SORTER Vitamin D deficiency SCAN-ULTRASOUND REPORT 09/06/2023 12:00 AM WAREHOUSE SORTER SCAN-ULTRASOUND REPORT 08/30/2023 12:00 AM WAREHOUSE SORTER from Last 3 Months Results * SCAN-ULTRASOUND REPORT (10/24/2023 12:00 AM WAREHOUSE SORTER) Only the most recent of3 resultswithin the time period is included. Anatomical Region Laterality Modality Other Scanner OTHER * VITAMIN D 25 (DEFICIENCY) (10/13/2023 11:24 AM WAREHOUSE SORTER) VITAMIN D TOTAL 24.6 20.0 - 80.0 ng/mL 10/13/2023 9:55 PM WAREHOUSE SORTER [facility] [employer] [facility] Blood BLOOD SPECIMEN / Unknown Venipuncture / Unknown 10/13/2023 11:24 AM WAREHOUSE SORTER 10/13/2023 11:25 AM WAREHOUSE SORTER Narrative [facility] - 10/13/2023 9:55 PM WAREHOUSE SORTER ? Vitamin D Status Deficiency: ? <20 ng/mL Insufficiency: ?20-29 ng/mL Sufficiency: ?30-80 ng/mL Possible Toxicity: ??>80 ng/mL Based on [place] [facility] recommendations Biotin supplements may cause clinically significant interference for this test assay. ??If interference is suspected, it is strongly recommended that biotin is discontinued for at least one week prior to retesting. Billie Guadarrama DO SEND OUTS [facility] [address] [place] [address], from Last 3 Months Care Teams Senior Marketing Specialist Relationship Specialty Start Date End Date Pcp, No . PCP - General 12/28/22 Vasquez Ridley MD [address] [place] [address] Rheumatology Rheumatology 10/07/16 Sanjeev Brar MD [address] [place] [address] Internal Medicine 09/28/19
--- OUTSIDE RECORDS SUMMARY | 2023-11-24 07:29 | XMS_ITS | Encounter Summary ---
Author Name Unknown Organization [facility] Address [address] [place] [address]. [place] [address] Care Team Providers Care Wireless Manager Name Role Phone Chiara Billie Primary Care Provider [phone] Rocio Mccarthy MD Unavailable [phone] Erica Tristan MD Unavailable [phone] Encounter Details Date Type Department Care Team (Latest Contact Info) Description 11/11/2023 Travel Social History Tobacco Use Types Packs/Day [...] Sex Assigned at Female 10/05/2020 9:54 PM LABORATORY ANIMAL CARETAKER Gender Identity Female 10/05/2020 9:54 PM LABORATORY ANIMAL CARETAKER Sexual Orientation Straight 10/05/2020 9: 54 PM LABORATORY ANIMAL CARETAKER documented as of this encounter Plan of Treatment Upcoming Encounters Date Type Department Care Team ( Contact Info) Description 12/12/2023 9:00 AM LABORATORY ANIMAL CARETAKER Office Visit [facility] Maternal Medicine [facility] [address] [place] [phone] Erica Tristan MD [address] [place] [address] 12/12/2023 9:30 AM LABORATORY ANIMAL CARETAKER Appointment [facility] Medicine [facility] [address] [place] [phone] Derrick Valenzuela MD [address] [place], [place] [address] 04/17/2024 9:00 AM CDT Virtual Visit [place] [address] [place] [phone] Rocio Mccarthy MD [address] [place] [address] documented as of this encounter Visit Diagnoses Not on filedocumented in this encounter Additional Health Concerns Assessment Noted Time PHQ-9 Depression Total Score: 11 023 10:04 AM CDT documented as of this encounter Care Teams Wireless Manager Relationship Specialty Start Date End Date Billie Guadarrama PCP - General 12/17/19 Rocio Mccarthy MD [address] [place] [address] Assigned Endocrinology Provider 04/24/22 Erica Tristan MD [address] [place] [address] Assigned OBGYN Provider 08/06/23 documented as of this encounter
--- OUTSIDE RECORDS SUMMARY | 2023-11-24 07:29 | XMS_ITS | Encounter Summary ---
Author Name Unknown Organization [facility] Address [address] [place] [address]. [place] [address] Care Team Providers Care Pewter Fabricator Name Role Phone Chiara Billie Primary Care Provider [phone] Rocio Mccarthy MD Unavailable [phone] Erica Tristan MD Unavailable [phone] Encounter Details Date Type Department Care Team (Latest Contact Info) Description 11/18/2023 Travel Social History Tobacco Use Types Packs/Day [...] Sex Assigned at Female 10/05/2020 9:54 PM CONSTRUCTION FIELD ENGINEER Gender Identity Female 10/05/2020 9:54 PM CONSTRUCTION FIELD ENGINEER Sexual Orientation Straight 10/05/2020 9: 54 PM CONSTRUCTION FIELD ENGINEER documented as of this encounter Plan of Treatment Upcoming Encounters Date Type Department Care Team ( Contact Info) Description 12/12/2023 9:00 AM CONSTRUCTION FIELD ENGINEER Office Visit [facility] Maternal Medicine [facility] [address] [place] [phone] Erica Tristan MD [address] [place] [address] 12/12/2023 9:30 AM CONSTRUCTION FIELD ENGINEER Appointment [facility] Medicine [facility] [address] [place] [phone] Derrick Valenzuela MD [address] [place], [place] [address] 04/17/2024 9:00 AM CDT Virtual Visit [place] [address] [place] [phone] Rocio Mccarthy MD [address] [place] [address] documented as of this encounter Visit Diagnoses Not on filedocumented in this encounter Additional Health Concerns Assessment Noted Time PHQ-9 Depression Total Score: 11 023 10:04 AM CDT documented as of this encounter Care Teams Pewter Fabricator Relationship Specialty Start Date End Date Billie Guadarrama PCP - General 12/17/19 Rocio Mccarthy MD [address] [place] [address] Assigned Endocrinology Provider 04/24/22 Erica Tristan MD [address] [place] [address] Assigned OBGYN Provider 08/06/23 documented as of this encounter
--- OUTSIDE RECORDS SUMMARY | 2023-11-24 07:29 | XMS_ITS | Clinical Summary ---
Author Name Unknown Organization [facility] Address [address] [place] [id number] Care Team Providers Care Ic Design Engineer Name Role Phone Chiara Billie Primary Care Provider Rocio Mccarthy MD Unavailable [phone] Erica Tristan MD Unavailable [phone] Allergies Active Allergy Reactions Criticality Noted Date Comments Drospirenone-Ethinyl Estradiol Headache,Rash Low Oxycodone-Acetaminophen Rash Low 04/09/2020 Medications Medication Sig Dispensed Refills Start Date End Date Status Vit-Fe Fumarate-FA ( VITAMIN PO) Take by mouth daily 0 Active Progesterone Micronized 10 % CREA 0 08/09/2023 Acti ve progesterone (PROMETRIUM) [address] 200 mg vaginally 0 09/06/2023 Active levothyroxine (SYNTHROID/LEVOTHROI D) 200 MCG tabletIndications: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 Take 1 tablet (200 mcg) by mouth daily 90 tablet 1 10/18/2023 Active NIFEdipine (PROCARDIA) 10 MG capsuleIndications:I ndication for care in labor or delivery Take 1 capsule (10 mg) by mouth every 6 hours 28 capsule 0 10/20/2023 Active nitroFURantoin macrocrystal-monohyd rate (MACROBID) 100 MG capsuleIndications:I ndication for care in labor or delivery Take 1 capsule (100 mg) by mouth 2 times daily 12 capsule 0 10/20/2023 Active Active Problems Problem Noted Date Diagnosed Date , incidental 06/21/2023 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 labor in third trimester with de livery 05/28/2021 Indication for care in labor or delivery 021 delivery 05/25/2021 Encounter for triage in patient 021 NO ACTIVE PROBLEMS Estimated Date of Delivery Comme nts Yes 12/27/2023 Based on Ultraso und Encounters Date Type Department Care Team Description 11/18/2023 9:45 AM CULL GRADER Office Visit [facility] [address] [address] Erica Tristan MD Jones, Cresta Wedel, MD growth restriction antepartum 11/18/2023 9:02 AM CULL GRADER - 11/18/2023 11:59 PM CULL GRADER Hospital Encounter [facility] [address] [address] Erica Tristan MD Jones, Cresta Wedel, MD growth restriction antepartum Discharge Disposition: Home or Self Care 11/18/2023 Travel 11/15/2023 Documentation Only [facility] [address] [place] [address] Sariah Arguello, GC 11/11/2023 11:15 AM CULL GRADER Office Visit [facility] [address] [place] [address] Olivia Younger MD growth restriction antepartum 11/11/2023 10:50 AM CULL GRADER - 11/11/2023 11:59 PM CULL GRADER Hospital Encounter [facility] [address] [place] [address] Olivia Younger MD growth restriction antepartum Discharge Disposition: Home or Self Care 11/11/2023 8:29 AM CULL GRADER - 11/11/2023 10:49 AM CULL GRADER Hospital Encounter [facility] [address] [place] [address] Olivia Younger MD complicated by cerebral ventriculomegaly, single or unspecified fetus Discharge Disposition: Home or Self Care 11/11/2023 Documentation Only [facility] [address] [facility] [address] [place] [address] Sariah Arguello GC 11/11/2023 Travel 11/09/2023 Telephone [facility] [place] [address] [place] [phone] Karina Bone, GC Results (Microarray (amniocentesis)) 11/04/2023 3:00 PM CULL GRADER Office Visit [facility] [place] [address] [facility] [address] [place] [phone] Erica Tristan MD Yamamura, Yasuko, MD growth restriction antepartum (Primary Dx) 11/04/2023 2:49 PM CULL GRADER - 11/04/2023 11:59 PM CULL GRADER Hospital Encounter [facility] [place] [address] [facility] [address] [place] [phone] Erica Tristan MD Yamamura, Yasuko, MD growth restriction antepartum Discharge Disposition: Home or Self Care 11/04/2023 Travel 11/03/2023 Travel 11/03/2023 MyC Medical Advice [facility] [address] Suite [facility][note 3] [place] [phone] Karina Bone GC 11/03/2023 Telephone [facility] [address] [place] [phone] Karina Bone, GC Results (Toxoplasmosis (amniocentesis)) 10/31/2023 Telephone [facility] [address] [place] [phone] Karina Bone, GC Results (CMV) 10/28/2023 1:30 PM CULL GRADER Office Visit [facility] [address] [place] [address] Erica Tristan MD Barnett, Chloe, GC Abnormal ultrasound 10/28/2023 12:15 PM CULL GRADER Office Visit [facility] [address] [place] [address] Erica Tristan MD growth restriction antepartum (Primary Dx); complicated by cerebral ventriculomegaly, single or unspecified fetus; Abnormal ultrasound 10/28/2023 11:30 AM CULL GRADER - 10/28/2023 11:59 PM CULL GRADER Hospital Encounter [facility] [address] [place] [phone] Erica Tristan MD related condition, antepartum Discharge Disposition: Home or Self Care 10/28/2023 MyC Medical Advice [facility] [address] [place] [address] Lisa Larose, RN 10/28/2023 Orders Only [facility] [address] [place] [address] Karina Bone GC Abnormal ultrasound (Primary Dx) 10/28/2023 Travel 10/25/2023 Medical Correspondence [facility] [address] [place] [phone] Scan, Non-Provider 10/25/2023 Travel 10/25/2023 Transcribe Orders [facility] [address] [facility] [address] [place] [phone] Rosette Devlin MD related condition, antepartum (Primary Dx) 10/19/2023 11:54 AM CULL GRADER - 10/20/2023 10:44 AM CULL GRADER Hospital Encounter [facility] [address] [place] [phone] MatthewLisa MD Bayer, Chelsea, MD Shibley, Kirk Anthony, MD Indication for care in labor or delivery (Primary Dx) Discharge Disposition: Home or Self Care 10/19/2023 Hospital Encounter [facility] [address] [place] [address] Simon Marcial MD 10/18/2023 9:30 AM CULL GRADER Virtual Visit [facility] [address] [place] [address] [place] [address] Rocio Mccarthy MD 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); , incidental 10/18/2023 MyC Medical Advice [facility] [address] [place] [address] Chelita Harrell CMA 10/11/2023 3:45 PM CULL GRADER Lab [facility] [address] [place] [address] 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 10/11/2023 Travel 10/09/2023 MyC Medical Advice [facility] [address] [place] [address] Rocio Mccarthy MD 09/15/2023 MyC Medical Advice [facility] [address] [place] [address] Rocio Mccarthy MD 09/12/2023 Telephone [facility] [address] [place] [address] Rocio Mccarthy MD Call Back 08/24/2023 MyC Medical Advice [facility] [address] [place] [address] Rocio Mccarthy MD from Last 3 Months Immunizations Name Administration Dates Next Due Comvax (HIB/HepB) 01/07/1998,1997 DTAP (<7y) 09/20/2002, 8,1997,1996 DTP-Hib 1997 DTaP, Unspecified 04/06/2010 [id number] Novel Flu 12/23/2009 HEPATITIS A (PEDS 12M-18Y) [...] Sex Assigned at Female 10/05/2020 9:54 PM CULL GRADER Gender Identity Female 10/05/2020 9:54 PM CULL GRADER Sexual Orientation Straight 10/05/2020 9: 54 PM CULL GRADER Last Filed Vital Signs Vital Sign Reading Time Taken Comments Blood Pressure 114/57 11/18/2023 10:26 AM CULL GRADER Pulse 99 11/18/2023 10:26 AM CULL GRADER Temperature 36.6 ??C (97.9 ??F) 10/20/2023 7:18 AM CS T Respiratory Rate 16 10/20/2023 7:18 AM CULL GRADER Oxygen Saturation 98% 11/04/2023 3:10 PM CULL GRADER Inhaled Oxygen Concentration - - Weight 114.8 kg (253 lb) 10/19/2023 12:22 PM CULL GRADER Height 165.1 cm (5' 5) 10/19/2023 12:22 PM CULL GRADER Body Mass Index 42.1 10/19/2023 12:22 PM CULL GRADER Plan of Treatment Upcoming Encounters Date Type Department Care Team (Late st Contact Info) Description 12/12/2023 9:00 AM CULL GRADER Office Visit [facility] [address] [facility] [address] [place] [address] Erica Tristan MD [address] [facility] [address] [place] [address] 12/12/2023 9:30 AM CULL GRADER Appointment [facility] [address] [place] [address] Derrick Valenzuela MD [address] [place], [place] [address] 04/17/2024 9:00 AM CDT Virtual Visit [facility] [address] [place] [address] Rocio Mccarthy MD [address] [place] [address] Health Maintenance Due Date Last Done Comments ADVANCE CARE PLANNING 1997 ANNUAL REVIEW OF HM ORDERS 1997 COVID-19 Vaccine (#1) 1997 YEARLY PREVENTIVE VISIT 06/01/2003 06/01/2002, 05/23 HEPATITIS C SCREENING 2015 PAP 2018 MATERNAL SCREENING DISCUSSION 05/31/2023 OBGCT (OB) 09/06/2023 GROUP B STREP SCREENING 11/29/2023 05/25/2021 TSH W/FREE T4 REFLEX 10/11/2024 10/11/2023, 10/11/2023, 08/23/2023, Additional history exists DTAP/TDAP/TD IMMUNIZATION (9 - Td or Tdap) 10/19/2033 10/19/2023, 05/11/2021, 09/10/2020, Additional history exists HEPATITIS B IMMUNIZATION Completed [...] patient's age to complete this topic RSV VACCINE ( & 60+) (No Doses Required) Completed Procedures Procedure Name Priority Date/Time Associated Diagnosis Comments [facility] COMPREHENSIVE SINGLE F/U Routine 11/18/2023 11:09 AM CULL GRADER growth restriction antepartum [facility] OB LIMITED SINGLE/MULTIPLE Routine 11/11/2023 11:47 AM CULL GRADER growth restriction antepartum MR Routine 11/11/2023 10:10 AM CULL GRADER complicated by cerebral ventriculomegaly, single or unspecified fetus [facility] OB LIMITED SINGLE/MULTIPLE Routine 11/04/2023 3:38 PM CULL GRADER growth restriction antepartum MATERNAL CELL CONTAMINATION, MATERNAL SPECIMEN STAT 10/28/2023 1:56 PM CULL GRADER Abnormal ultrasound CYTOMEGALOVIRUS QUALITATIVE PCR STAT 10/28/2023 1:49 PM CULL GRADER Abnormal ultrasound A1 FLASK Routine 10/28/2023 1:49 PM CULL GRADER Abnormal ultrasound AMNIOTIC CULTURE (CYTOGENETICS) Routine 10/28/2023 1:49 PM CULL GRADER Abnormal ultrasound IN-SITU CELL CULTURE ONLY, AMNIOTIC FLUID STAT 10/28/2023 1:49 PM CULL GRADER Abnormal ultrasound CYTOGENOMIC MICROARRAY SNP STAT 10/28/2023 1:49 PM CULL GRADER Abnormal ultrasound TOXOPLASMA GONDII BY PCR STAT 10/28/2023 1:49 PM CULL GRADER Abnormal ultrasound MFM US COMPREHENSIVE SINGLE F/U Routine 10/28/2023 11:59 AM CULL GRADER related condition, antepartum GENETIC LAB RESULT - HIM SCAN 10/28/2023 12:00 AM CULL GRADER US OB FOLLOW UP >14 WEEKS STAT 10/20/2023 8:40 AM CULL GRADER URINE CULTURE STAT Add-on 10/19/2023 10:30 PM CULL GRADER ROUTINE UA WITH MICROSCOPIC REFLEX TO CULTURE Routine 10/19/2023 10:30 PM CULL GRADER ABO/RH TYPE AND SCREEN Timed 1:22 PM CULL GRADER TYPE AND SCREEN, ADULT Timed 1:22 PM CULL GRADER TSH Routine 10/11/2023 3:40 PM CULL GRADER 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 Anatomical Region Laterality Modality Ultrasound 11/18/2023 9:06 AM CULL GRADER Impressions 11/18/2023 4:16 PM CULL GRADER IMPRESSION ----- 1. Sebastian intrauterine at 34w 3d with growth restriction (EFW 8% on 10/28/23) here for assessment of growth and surveillance. 2. ventriculomegaly is again present, with right ventricle measuring 10.6 mm and left difficult to measure due to position, but with appearance of persistent ventriculomegaly. 3. No other anomalies commonly detected by ultrasound were evident in the limited anatomic survey as described above, anatomy limited by gestational age and lie. 4. The EFW measured at the 9%, appropriate interval growth was noted. The head measurements are lagging but remain < 2 standard deviations below the mean. 5. The amniotic fluid volume appeared normal. 6. The umbilical artery dopplers were within normal limits. 7. The NST was reactive and reassuring. Narrative 11/18/2023 4:16 PM CULL GRADER ?Comp Follow Up ----- Pat. Name: TAYLOR RAHMAN ? Study Date: ??11/18/2023 9:06am Pat. NO: ??[id number] ?Referring ??MD: ROSETTE DEVLIN Site: ??[facility] ? Integration Software Developer: Danielle Sanchez RDMS : ??1995 ?Age: ?? 28 ----- INDICATION ----- growth restriction (FGR) Bilateral Ventriculomegaly METHOD ----- Transabdominal ultrasound examination. View: Sufficient ----- Sebastian . Number of fetuses: 1 DATING ----- ? Date ?Details ?Gest. age ?MILES LMP ?03/16/2023 ? 35 w + 2 d ? 12/21/2023 Prior assessment ? 05/12/2023 ?GA: 7 w + 2 d ? 34 w + 3 d ? 12/27/2023 U/S ? 11/18/2023 ?based upon AC, BPD, Femur, HC ? 32 w + 3 d ? 01/10/2024 Assigned dating ?Dating performed on 11/11/2023, based on the prior assessment (on 05/12/2023) ?34 w + 3 d ? 12/27/2023 GENERAL EVALUATION ----- Cardiac activity present. FHR 143 bpm. movements present. Presentation cephalic. Placenta Posterior. Umbilical cord 3 vessel cord. Amniotic fluid Amount of AF: normal. MVP 4.8 cm. BIOMETRY ----- Main Biometry: BPD ?78.7 ?mm ? 31w 4d ?Hadlock OFD ?101.3 ?mm ? 29w 6d ? Nicolaides HC ?286.3 ?mm ?31w 3d ?Hadlock Cerebellum tr ?39.5 ? mm ?33w 4d ?Nicolaides AC ?284.0 ?mm ?32w 3d ?8% ?Hadlock Femur ?66.1 ? mm ?34w 0d ?Hadlock Weight Calculation: EFW ? 2,036 ?g ? 9% ? Hadlock EFW (lb,oz) ? 4 lb 8 ?oz EFW by ?Hadlock ([id number]) Head / Face / Neck Biometry: LLV ? 15.3 ?mm RLV ? 10.8 ?mm Customer Engagement Specialist ? 13.5 ?mm CM ?6.7 ? mm ANATOMY ----- The following structures appear abnormal: Head / Neck ? Right lateral ventricle: ventriculomegaly. Left lateral ventricle: ventriculomegaly. The following structures appear normal: Head / Neck ? Cranium. Head size. Head shape. Midline falx. Cavum septi pellucidi. Cerebellum. Cisterna magna. Thalami. Face ? Lips. Profile. Nose. Heart / Thorax ?4-chamber view. RVOT view. LVOT view. 3-qidwjs-hriolth view. ? Diaphragm. Abdomen ? Stomach. Kidneys. Bladder. Spine ?Cervical spine. Thoracic spine. Lumbar spine. Sacral spine. Gender: female. DOPPLER ----- Umbilical Artery: normal. Sampling site: midcord PI ?0.91 ?61% ?Radha HR ?147 ? bpm MATERNAL STRUCTURES ----- Cervix ?Not examined Right Ovary ?Not examined Left Ovary ?Not examined NON STRESS TEST ----- NST interpretation: reactive. Test duration 26 min. Baseline FHR 145 bpm. Baseline variability: moderate. Accelerations: present. Decelerations: absent. Uterine activity: absent RECOMMENDATION ----- Thank-you for referring your patient for surveillance in the setting of growth restriction and mild ventriculomegaly. I discussed the findings on today's ultrasound with the patient. 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 Please see genetic counseling discussion for further information and plan for follow up. Continue weekly surveillance/UA Dopplers and growth evaluation every 3 weeks. All these scans are anticipated at [facility]. Return to primary provider for continued care. Delivery for FGR is indicated at 38-39 weeks. She has had labor this and is hoping to get to 35 weeks so that she can deliver locally. I recommend pediatrics be present at the as possible given findings. If you have questions regarding today's evaluation or if we can be of further service, please contact the [facility]. anomalies may be present but not detected Procedure Note Derrick Valenzuela MD - 11/18/2023 Comp Follow Up ----- Pat. Name: TAYLOR RAHMAN Study Date: 11/18/2023 9:06am Pat. NO: [id number] Referring MD: ROSETTE DEVLIN Site: [facility] Integration Software Developer: Danielle Sanchez RDMS : 1995 Age: 28 ----- INDICATION ----- growth restriction (FGR) Bilateral Ventriculomegaly METHOD ----- Transabdominal ultrasound examination. View: Sufficient ----- Sebastian . Number of fetuses: 1 DATING ----- DateDetailsGest. age MILES LMP w + 2 d 12/21/2023 Prior assessment 05/12/2023 GA: 7 w +2 d34 w + 3 d 12/27/2023 U/S 11/18/2023ased upon AC, BPD, Femur, HC32 w + 3 d 01/10/2024 Assigned dating Dating performed on 11/11/2023, based onthe prior assessment (on 05/12/2023) 34 w + 3 d3 GENERAL EVALUATION ----- Cardiac activity present. FHR 143 bpm. movements present. Presentation cephalic. Placenta Posterior. Umbilical cord 3 vessel cord. Amniotic fluid Amount of AF: normal. MVP 4.8 cm. BIOMETRY ----- Main Biometry: BPD 78.7 mm31w 4d Hadlock OFD 101.3 mm29w 6d Nicolaides HC 286.3 mm31w 3d Hadlock Cerebellum tr 39.5 mm33w 4d Nicolaides AC 284.0 mm32w 3d 8% Hadlock Femur 66.1 mm34w 0d Hadlock Weight Calculation: EFW 2,036 g9% Hadlock EFW (lb,oz) 4 lb 8 oz EFW by Hadlock ([id number]) Head / Face / Neck Biometry: LLV 15.3 mm RLV 10.8 mm Customer Engagement Specialist 13.5 mm CM 6.7 mm ANATOMY ----- The following structures appear abnormal: Head / Neck Right lateral ventricle:ventriculomegaly. Left lateral ventricle: ventriculomegaly. The following structures appear normal: Head / Neck Cranium. Head size. Head shape.Midline falx. Cavum septi pellucidi. Cerebellum. Cisterna magna.Thalami. Face Lips. Profile. Nose. Heart / Thorax 4-chamber view. RVOT view. LVOT view.0-spzlvu-hbbxndi view. Diaphragm. Abdomen Stomach. Kidneys. Bladder. Spine Cervical spine. Thoracic spine.Lumbar spine. Sacral spine. Gender: female. DOPPLER ----- Umbilical Artery: normal. Sampling site: midcord PI 0.9161% Radha HR 147 bpm MATERNAL STRUCTURES ----- Cervix Not examined Right Ovary Not examined Left Ovary Not examined NON STRESS TEST ----- NST interpretation: reactive. Test duration 26 min. Baseline FHR 145 bpm.Baseline variability: moderate. Accelerations: present. Decelerations:absent. Uterine activity: absent RECOMMENDATION ----- Thank-you for referring your patient for surveillance in thesetting of growth restriction and mild ventriculomegaly. I discussedthe findings on today's ultrasound with the patient. 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 Continue weekly surveillance/UA Dopplers and growth evaluationevery 3 weeks. All these scans are anticipated at [facility]. Return to primary provider for continued care. Delivery for FGRis indicated at 38-39 weeks. She has had labor this andis hoping to get to 35 weeks so that she can deliver locally. I recommend pediatrics be presentat the as possible given findings. If you have questions regarding today's evaluation or if we can be offurther service, please contact the [facility]. anomalies may be present but not detected IMPRESSION ----- 1. Sebastian intrauterine at 34w 3d with growthrestriction (EFW 8% on 10/28/23) here for assessment of growth andantenatal surveillance. 2. ventriculomegaly is again present, with right ventricle .6 mm and left difficult to measure due to position, but withappearance of persistent ventriculomegaly. 3. No other anomalies commonly detected by ultrasound were evident in thelimited anatomic survey as described above, anatomy limited bygestational age and lie. 4. The EFW measured at the 9%, appropriate interval growth was noted. Thefetal head measurements are lagging but remain < 2 standard deviationsbelow the mean. 5. The amniotic fluid volume appeared normal. 6. The umbilical artery dopplers were within normal limits. 7. The NST was reactive and reassuring. Erica Tristan MD [facility] US ORDERABLE S * Maternal US OB Limited Single/Multiple (11/11/2023 11:47 AM CULL GRADER) Only the most recent of2 resultswithin the time period is included. Anatomical Region Laterality Modality Ultrasound 11/11/2023 11:3 5 AM CULL GRADER Impressions 11/11/2023 1:32 PM CULL GRADER IMPRESSION ----- 1. Sebastian intrauterine at 33w 3d with growth restriction (EFW 8%, AC 6% on 10/28) here for surveillance. 2. The amniotic fluid volume appeared normal. 3. The umbilical artery dopplers were within normal limits. 4. The NST was reactive and reassuring. Narrative 11/11/2023 1:32 PM CULL GRADER ?Limited ----- Pat. Name: TAYLOR RAHMAN ? Study Date: ??11/11/2023 11:35am Pat. NO: ??[id number] ?Referring ??MD: ROSETTE DEVLIN Site: ??[facility] ? Integration Software Developer: Catalina Pickett : ??1995 ?Age: ?? 28 ----- INDICATION ----- growth restriction (FGR) METHOD ----- Transabdominal ultrasound examination. View: Sufficient ----- Sebastian . Number of fetuses: 1 DATING ----- ? Date ?Details ?Gest. age ?MILES LMP ?03/16/2023 ? 34 w + 2 d ? 12/21/2023 Prior assessment ? 05/12/2023 ?GA: 7 w + 2 d ? 33 w + 3 d ? 12/27/2023 Assigned dating ?Dating performed on 11/11/2023, based on the prior assessment (on 05/12/2023) ?33 w + 3 d ? 12/27/2023 GENERAL EVALUATION ----- Cardiac activity present. FHR 160 bpm. movements visualized. Presentation cephalic. Placenta Posterior. Umbilical cord previously studied. Amniotic fluid Amount of AF: normal. MVP 7.1 cm. DOPPLER ----- Umbilical Artery: normal PI ?0.95 ?65% ? Radha HR ?160 ? bpm NON STRESS TEST ----- NST interpretation: reactive. Test duration 22 min. Baseline FHR 140 bpm. Baseline variability: moderate. Accelerations: present. Decelerations: absent. Uterine activity: absent RECOMMENDATION ----- Thank-you for referring your patient for surveillance in the setting of growth restriction. I discussed the findings on today's ultrasound with the patient. Patient had a MRI today due to previously noted bilateral, mild ventriculomegaly. The MRI noted Mild lateral ventricular dilatation measuring 11 mm on the right and 12 mm on the left. No structural brain abnormality is identified. We discussed that this finding is overall reassuring as mild ventriculomegaly without other structural abnormalities has a very good prognosis related to neurodevelopmental outcomes. 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 This has been discussed with her by the genetic counselor and no corresponding phenotype has been described. She has opted for no further testing. CMV and Toxoplasmosis were not detected. The MRI additionally noted Cephalic lie. Cervix appears completely effaced and minimally dilated. Patient remains asymptomatic without signs/symptoms of labor. We discussed that MRI is not the optimal tool to evaluate a third trimester cervix and thus this findings is likely normal without clinical relevance in the absence of symptoms. Continue weekly surveillance/UA Dopplers and growth evaluation every 3 weeks (due next week). She would like to schedule the weekly NST/Dopplers/Fluid assessment with her primary physician and continue to follow with MFM every 3 weeks for growth and neuroanatomy assessment. We will work to coordinate this with her primary provider. Return to primary provider for continued care. If you have questions regarding today's evaluation or if we can be of further service, please contact the [facility]. anomalies may be present but not detected I spent a total of 20 minutes on the date of this encounter including preparing to see the patient (reviewing medical records/tests), in direct [id number]-yi-[id number] contact with the patient during her visit with the majority spent counseling and discussing the plan of care and documenting the visit in the electronic medical record. Please see note for details. Procedure Note Olivia Younger MD - 11/11/2023 Limited ----- Pat. Name: TAYLOR RAHMAN Study Date: 11/11/2023 11:35am Pat. NO: [id number] Referring MD: ROSETTE DEVLIN Site: [facility] Integration Software Developer: Catalina PickettDEREJE : 1995 Age: 28 ----- INDICATION ----- growth restriction (FGR) METHOD ----- Transabdominal ultrasound examination. View: Sufficient ----- Sebastian . Number of fetuses: 1 DATING ----- DateDetailsGest. age MILES LMP w + 2 d 12/21/2023 Prior assessment 05/12/2023 GA: 7 w +2 d33 w + 3 d 12/27/2023 Assigned dating Dating performed on 11/11/2023, based onthe prior assessment (on 05/12/2023) 33 w + 3 12/27/2023 GENERAL EVALUATION ----- Cardiac activity present. FHR 160 bpm. movements visualized. Presentation cephalic. Placenta Posterior. Umbilical cord previously studied. Amniotic fluid Amount of AF: normal. MVP 7.1 cm. DOPPLER ----- Umbilical Artery: normal PI 0.9565% Radha HR 160 bpm NON STRESS TEST ----- NST interpretation: reactive. Test duration 22 min. Baseline FHR 140 bpm.Baseline variability: moderate. Accelerations: present. Decelerations:absent. Uterine activity: absent RECOMMENDATION ----- Thank-you for referring your patient for surveillance in thesetting of growth restriction. I discussed the findings on today'sultrasound with the patient. Patient had a MRI today due to previously noted bilateral, mildventriculomegaly. The MRI noted Mild lateral ventricular dilatationmeasuring 11 mm on the right and 12 mm on the left. No structural brain abnormality is identified. Wediscussed that this finding is overall reassuring as mild ventriculomegalywithout other structural abnormalities has a very good prognosis related to neurodevelopmentaloutcomes. 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 This has been discussed with her bythe genetic counselor and no corresponding phenotype has been described.She has opted for no further testing. CMV and Toxoplasmosis were not detected. The MRI additionally noted Cephalic lie. Cervix appearscompletely effaced and minimally dilated. Patient remains asymptomaticwithout signs/symptoms of labor. We discussed that MRI is not the optimal tool to evaluate athird trimester cervix and thus this findings is likely normal withoutclinical relevance in the absence of symptoms. Continue weekly surveillance/UA Dopplers and growth evaluationevery 3 weeks (due next week). She would like to schedule the weeklyNST/Dopplers/Fluid assessment with her primary physician and [facility] and neuroanatomy assessment. We will workto coordinate this with her primary provider. Return to primary provider for continued care. If you have questions regarding today's evaluation or if we can be offurther service, please contact the [facility]. anomalies may be present but not detected I spent a total of 20 minutes on the date of this encounter includingpreparing to see the patient (reviewing medical records/tests), in [id number] contact with the patient during her visit with the majority spent counseling and discussingthe plan of care and documenting the visit in the electronic medicalrecord. Please see note for details. IMPRESSION ----- 1. Sebastian intrauterine at 33w 3d with growthrestriction (EFW 8%, AC 6% on 10/28) here for surveillance. 2. The amniotic fluid volume appeared normal. 3. The umbilical artery dopplers were within normal limits. 4. The NST was reactive and reassuring. Erica Tristan MD [facility] US ORDERABLE S * MR (11/11/2023 10:10 AM CULL GRADER) Anatomical Region Laterality Modality Abdomen/Pelvis, SUBRAD MR BODY, UMP MR BODY Magnetic Resonance Impressions 11/11/2023 10:28 AM CULL GRADER IMPRESSION: 1. Mild lateral ventricular dilatation measuring 11 mm on the right and 12 mm on the left. No structural brain abnormality is identified. 2. Cephalic lie. Cervix appears completely effaced and minimally dilated. Cervical effacement was discussed with Dr. Tristan at the time of the examination. MAMI CHARLES MD Narrative 11/11/2023 10:28 AM CULL GRADER EXAM: MRI HISTORY: Ventriculomegaly PROCEDURE COMMENT: MRI, single gestation. COMPARISON: OB ultrasound 10/28/2023 . FINDINGS: Images are mildly limited by motion. There is a single gestation. lie is cephalic. The placenta is posterior without evidence of placental previa. The placental cord insertion is central. There is a 3 vessel cord. Amniotic fluid volume is mildly elevated. The cervix is effaced and appears minimally dilated. Maternal findings: Mild pelvocaliectasis consistent with the gravid state. Low signal intensity in the L5-S1 intervertebral disc, consistent with desiccation. head and neck: The ventricles are within normal limits. The left lateral ventricle measures 12 mm, while the right lateral ventricle measures 11 mm. Sulcation is grossly normal for gestational age. No nodularity is identified within the germinal matrix. The corpus callosum is present. Brain biparietal diameter is 68 mm, normal for age is 68 - 83 mm. The transcerebellar diameter is 38 mm, normal for age is 37 - 46 mm. The height of the vermis is 16 mm, normal for age is 15 - 22 mm. No facial cleft is identified. chest: The lungs demonstrate normal homogeneous signal intensity. The heart is positioned in the left hemithorax. Heart size is not grossly enlarged. The aortic arch appears left sided. The hemidiaphragms appear intact. abdomen: The liver and gallbladder are on the right, and the stomach is on the left. The kidneys are present bilaterally, without hydronephrosis or hydroureter. There is no dilated bowel. Meconium is seen to the level of the rectum. The abdominal cord insertion is normal. pelvis: There is fluid signal intensity within the urinary bladder. Normal genitalia is identified. spine: No spinal or sacral dysraphic defect is identified. limbs: Evaluation is limited. Hyperextension of the right knee is seen on some sequences but not on others and appears positional rather than fixed. Procedure Note Mami Charles MD - 11/11/2023 EXAM: MRI HISTORY: Ventriculomegaly PROCEDURE COMMENT: MRI, single gestation. COMPARISON: OB ultrasound 10/28/2023 . FINDINGS: Images are mildly limited by motion. There is a single gestation. lie is cephalic. The placenta is posterior without evidence of placental previa. The placental cord insertion is central. There is a 3 vessel cord. Amniotic fluid volume is mildly elevated. The cervix is effaced and appears minimally dilated. Maternal findings: Mild pelvocaliectasis consistent with the gravid state. Low signal intensity in the L5-S1 intervertebral disc, consistent with desiccation. head and neck: The ventricles are within normal limits. The left lateral ventricle measures 12 mm, while the right lateral ventricle measures 11 mm. Sulcation is grossly normal for gestational age. No nodularity is identified within the germinal matrix. The corpus callosum is present. Brain biparietal diameter is 68 mm, normal for age is 68 - 83 mm. The transcerebellar diameter is 38 mm, normal for age is 37 - 46 mm. The height of the vermis is 16 mm, normal for age is 15 - 22 mm. No facial cleft is identified. chest: The lungs demonstrate normal homogeneous signal intensity. The heart is positioned in the left hemithorax. Heart size is not grossly enlarged. The aortic arch appears left sided. The hemidiaphragms appear intact. abdomen: The liver and gallbladder are on the right, and the stomach is on the left. The kidneys are present bilaterally, without hydronephrosis or hydroureter. There is no dilated bowel. Meconium is seen to the level of the rectum. The abdominal cord insertion is normal. pelvis: There is fluid signal intensity within the urinary bladder. Normal genitalia is identified. spine: No spinal or sacral dysraphic defect is identified. limbs: Evaluation is limited. Hyperextension of the right knee is seen on some sequences but not on others and appears positional rather than fixed. IMPRESSION: 1. Mild lateral ventricular dilatation measuring 11 mm on the right and 12 mm on the left. No structural brain abnormality is identified. 2. Cephalic lie. Cervix appears completely effaced and minimally dilated. Cervical effacement was discussed with Dr. Tristan at the time of the examination. MAMI CHARLES MD Erica Tristan MD [facility] MRI ORDERABLES * Maternal Cell Contamination, Maternal Specimen (10/28/2023 1:56 PM CULL GRADER) Maternal Cell Contam, Maternal Spec Sent to [facility]. 10/31/2023 11:08 AM CULL GRADER [facility] LABS Blood STRUCTURE OF RIGHT UPPER LIMB / Unknown Venipuncture / Unknown 10/28/2023 1:56 PM CULL GRADER 10/28/2023 2:58 PM CULL GRADER Karina Bone GC LAB - BLOOD ORDERABL ES [facility] [address] [id number], [facility] [phone] * A1 Flask (10/28/2023 1:49 PM CULL GRADER) Amniotic fluid STRUCTURE OF AMNION / Unknown Non-blood Collection / Unknown 10/28/2023 1:49 PM CULL GRADER 10/28/2023 2:59 PM CULL GRADER Karina ALBARADO - BETALYA AP [facility] Cytogenetics Lab [address] [place] [address] * Amniotic Culture (10/28/2023 1:49 PM CULL GRADER) Amniotic fluid STRUCTURE OF AMNION / Unknown Non-blood Collection / Unknown 10/28/2023 1:49 PM CULL GRADER 10/28/2023 2:59 PM CULL GRADER Karina ALBARADO - BEAKER AP Performing Organization Address [facility] de Phone Number [facility] [address] [place] [address] * In-situ Cell Culture only, Amniotic fluid (10/28/2023 1:49 PM CULL GRADER) Results An amniotic fluid sample was collected and received in the Cytogenetics Laboratory on 10-28-2023 and initiated into a single culture . As no additional testing was necessary, these cultures were discarded on 11-10-2023 per the direction of Karina Bone MS, LGC. 11/10/2023 11:31 AM CULL GRADER [facility] Amniotic fluid STRUCTURE OF AMNION / Unknown Non-blood Collection / Unknown 10/28/2023 1:49 PM CULL GRADER 10/28/2023 2:59 PM CULL GRADER Karina ALBARADO - BECKY H[facility]PTON [facility] Cyt[facility]etics Lab [address] [facility] Room [address] [phone] * Cytogenomic Microarray SNP (10/28/2023 1:49 PM CULL GRADER) Cytogenomic SNP Microarray See Note Normal 11/08/2023 12:59 PM CULL GRADER [facility] Comment: Test Performed: Cytogenomic SNP Microarray- (ARRAY FE) Specimen Type: Direct (uncultured) amniocytes Indication for Testing: IUGR, ventriculomegaly, small head size, hypoplastic nasal bone RESULT SUMMARY Absence of Heterozygosity Involving the Entire Length of Chromosome 1 (Female) Uniparental Disomy of Chromosome 1 (Whole Chromosome Isodisomy) Size: 248.3 Mb RESULT DESCRIPTION This analysis showed homozygosity (absence of heterozygosity, AOH) over the entire length of chromosome 1 (isodisomy). 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 No clinically significant copy number changes were identified. INTERPRETATION The clinical significance of this finding is uncertain and may be clinically benign. UPD of chromosome 1 has not been associated with a specific clinical phenotype. Detection of UPD increases the suspicion for, but is not diagnostic of, a recessive condition. Resources to investigate recessive conditions mapping to this region are provided below. The mechanisms leading to chromosomal isodisomy include monosomy and trisomy rescue. ??Depending on the timing of such rescue events, mosaicism for the original aneuploidy may be present. ??However, mosaic aneuploidy for this chromosome was not detected in the current specimen. If mosaicism is of concern, consider testing an alternative sample type by chromosome analysis/microarray, as levels of mosaicism may vary among different tissues. Online tools available to assist in the identification of candidate recessive genes within the BROOKS identified in this study: www.Gini/ and https://tar pot man-search.broadBeam.titute.org/ Recommendation: Genetic counseling Health care providers with questions may contact an [facility] genetic counselor at ext. [phone]. References: 1) Monica. Genomic Imprinting and Uniparental Disomy in Medicine: Clinical and Molecular Aspects. [place], [place]. Francois-Renea; 2002:49-54. 2) Chad. Justyn and Britany's Chromosome Abnormalities and Genetic Counseling. 5th edition. [place], [place]: [place]; 2018. 3) Alex et al. A clinical evaluation tool for SNP arrays, especially for autosomal recessive conditions in offspring of consanguineous parents. Marisol Med. 2013 February;15(5):354-60. PMID: [id number]. Cytogenomic Nomenclature (ISCN): arr[GRCh37] 1p36.33q44([id number] hmz Technical Information - This assay was performed using the Vertos Medical HD Suite ([employer]) according to validated protocols within the Genomic Microarray Laboratory at [facility] - This assay is designed to detect alterations to DNA copy number state (gains and losses), copy-neutral alterations (regions of homozygosity; BROOKS) that indicate an absence- or jrja-xd-qjsfkuapisxpqx (AOH or DEMETRIUS), and certain alterations to ploidy state due to errors at fertilization or early embryonic cell division (i.e. triploidy, molar ) - AOH may be present due to molar , parental relatedness (consanguinity) or uniparental disomy (UPD) - DEMETRIUS may be present due to acquired UPD (segmental or whole chromosome) - The detection sensitivity (resolution) for any particular genomic region may vary dependent upon the number of probes (markers), probe spacing, and thresholds for copy number and BROOKS determination - The CytoScan HD array contains 2.67 million markers across the genome with average probe spacing of 1.15 kb, including 750,000 SNP probes and 1.9 million non-polymorphic probes - In general, the genome-wide resolution is approximately 25-50 kb for copy number changes and approximately 3 Mb for BROOKS (See reporting criteria) - The limit of detection for mosaicism varies dependent upon the size and type of genomic imbalance. In general, genotype mixture due to mosaicism (distinct cell lines from the same individual) or chimerism (cell lines from different individuals) will be detected when present at greater than 20-30 percent in the sample - Genomic coordinates correspond to the Genome Reference Consortium human genome build 37/human genome issue 19 (GRCh37/hg19) Variant Classification and Reporting Criteria - Copy number variant (CNV) analysis is performed in accordance with recommendations by the [employer] and [employer] (ACMG), using standard 5-tier CNV classification terminology: pathogenic, likely pathogenic, variant of uncertain significance (VUS), likely benign, and benign - CNVs classified as pathogenic or likely pathogenic are generally reported based on information available at the time of review - CNVs classified as VUS are generally reported when found to have suspected clinical relevance based on information available at the time of review, or when meeting size criteria - Known or expected pathogenic CNVs affecting genes with known clinical significance but which are unrelated to the indication for testing will generally be reported - Variants that do not fall within the standard 5-tier CNV classification categories may be reported with descriptive language specific to that variant - In general, recessive disease risk and recurrent CNVs with established reduced penetrance will be reported - For a list of databases used in CNV classification, please refer to [facility] Constitutional CNV Assertion Criteria, which can be found on [facility]'s Genetics website at www.Software [employer].com/genetics - CNVs classified as likely benign or benign that are devoid of relevant gene content or reported as common findings in the general population, are generally not reported - CNV reporting (size) criteria: losses greater than 1 Mb and gains greater than 2 Mb are generally reported, dependent on genomic content - Regions of homozygosity (BROOKS) are generally reported when a single terminal BROOKS is greater than 3 Mb and a single interstitial BROOKS is greater than 10-20 Mb (dependent upon chromosomal location and likelihood of imprinting disorder) or when total autosomal homozygosity is greater than 5 percent (only autosomal BROOKS greater than 3 Mb are considered for this estimate) ?? Limitations This analysis cannot provide structural (positional) information associated with genomic imbalance. Therefore, additional cytogenetic testing by chromosome analysis or fluorescence in situ hybridization (FISH) may be recommended. Certain genomic alterations may not or cannot be detected by this technology. These alterations may include, but are not limited to: - CNVs below the limit of resolution of this platform - Sequence-level variants (mutations) including point mutations and indels - Low-level mosaicism (generally, less than 20-30 percent) - Balanced chromosomal rearrangements (translocations, inversions and insertions) - Genomic imbalance in repetitive DNA regions (centromeres, telomeres, segmental duplications, and acrocentric chromosome short arms) - Most cases of tetraploidy This result has been reviewed and approved by Akira Sandoval MD, [facility] INTERPRETIVE INFORMATION: Cytogenomic SNP Microarray - This test was developed and its performance characteristics determined by [employer]. It has not been cleared or approved by the US Food and Drug Administration. This test was performed in a CLIA certified laboratory and is intended for clinical purposes. Counseling and informed consent are recommended for genetic testing. Consent forms are available online. Maternal Contamination Study Spec Cells 11/08/2023 12:59 PM CULL GRADER [employer] Comment: Single genotype present; no maternal cells present. ?? and maternal samples were tested using STR markers to rule out maternal cell contamination. This result has been reviewed and approved by Farzana Huynh M.D., Ph.D. Cytogenomic Maternal Specimen Yes 11/08/2023 12:59 PM CULL GRADER [employer] Comment: Performed By: [employer] [address] [place] [address] Fare Collector: Fco Rosa MD, PhD CLIA Number: [id number] Amniotic fluid STRUCTURE OF AMNION / Unknown Non-blood Collection / Unknown 10/28/2023 1:49 PM CULL GRADER 10/28/2023 2:58 PM CULL GRADER Karina Bone GC LAB - BODY FLUIDS OR DERABLES [facility] [address] [place] [address], [facility] [phone] * Cytomegalovirus Qualitative PCR Non Bld (10/28/2023 1:49 PM CULL GRADER) Pathologist [facility] CMV Qualitative PCR Not Detected 4:19 AM CULL GRADER [facility] Comment: NOT DETECTED - A negative result does not rule out the presence of PCR inhibitors in the patient specimen or assay specific nucleic acid in concentrations below the level of detection by the assay. INTERPRETIVE INFORMATION: Cytomegalovirus Detection by PCR This test was developed and its performance characteristics determined by [employer]. It has not been cleared or approved by the US Food and Drug Administration. This test was performed in a CLIA certified laboratory and is intended for clinical purposes. Performed By: [facility] [employer] [address] [place] [address] Fare Collector: Fco Rosa MD, PhD CLIA Number: [id number] Amniotic fluid STRUCTURE OF AMNION / Unknown Non-blood Collection / Unknown 10/28/2023 1:49 PM CULL GRADER 10/28/2023 2:58 PM CULL GRADER Karina Bone LAB - MICRO GENERAL ORDERABLES [address] [address], [facility] [phone] * Toxoplasma gondii by PCR (10/28/2023 1:49 PM CULL GRADER) Pathologist [facility] Toxoplamsma Gondii PCR Not Detected 11/02/2023 10:28 PM CULL GRADER [facility] Comment: NOT DETECTED - A negative result does not rule out the presence of PCR inhibitors in the patient specimen or assay specific nucleic acid in concentrations below the level of detection by the assay. INTERPRETIVE INFORMATION: Toxoplasma gondii by PCR This test was developed and its performance characteristics determined by [employer]. It has not been cleared or approved by the US Food and Drug Administration. This test was performed in a CLIA certified laboratory and is intended for clinical purposes. Performed By: [facility] [employer] [address] [place] [id number] Fare Collector: Fco Rosa MD, PhD CLIA Number: [id number] Amniotic fluid STRUCTURE OF AMNION / Unknown Non-blood Collection / Unknown 10/28/2023 1:49 PM CULL GRADER 10/28/2023 2:58 PM CULL GRADER Karina Bone GC LAB - BLOOD ORDERABL ES [facility] [address] [place] [address], [facility] [phone] * GENETIC LAB RESULT - HIM SCAN (10/28/2023 12:00 AM CULL GRADER) 10/28/2023 Provider Outside LAB - [facility] SPECIAL DIAG ORDERABLES * US OB >14 Weeks Follow Up (10/20/2023 8:40 AM CULL GRADER) Anatomical Region Laterality Modality Abdomen/Pelvis Ultrasound Impressions 10/20/2023 9:46 AM CULL GRADER IMPRESSION: Single living intrauterine gestation of approximately 28 weeks 4 days gestation is estimated by ultrasound. ??Polyhydramnios. TRACEY FAUST MD SYSTEM ID: ??[id number] Narrative 10/20/2023 9:46 AM CULL GRADER ULTRASOUND OBSTETRIC FOLLOW UP >14 WEEKS October [...] ultrasound. Polyhydramnios. TRACEY FAUST MD SYSTEM ID: [id number] Simon Marcial MD IMG US ORDERABLE S * (ABNORMAL) UA with Microscopic reflex to Culture (10/19/2023 10:30 PM CULL GRADER) Color Urine Straw Colorless, Straw, Light Yellow, Yellow 10/19/2023 10:46 PM CULL GRADER LABORATORY Appearance Urine Clear Clear 10/19/19 10:46 PM CULL GRADER LABORATORY Glucose Urine 300(A) Negative mg/dL 10/19/2023 10:46 PM CULL GRADER LABORATORY Bilirubin Urine Negative Negative 10:46 PM CULL GRADER LABORATORY Ketones Urine Negative Negative mg/dL 10/19/2023 10:46 PM CULL GRADER LABORATORY Specific [place] Urine 1.011 1.003 - 1.035 10/19/2023 10:46 PM CULL GRADER LABORATORY Blood Urine Negative Negative 10/19/2023 10:46 PM CULL GRADER LABORATORY pH Urine 5.5 5.0 - 7.0 10/19/2023 10:46 PM CULL GRADER LABORATORY Protein Albumin Urine Negative Negative mg/dL 10/19/2023 10:46 PM CULL GRADER LABORATORY Urobilinogen Urine Normal Normal, 2.0 mg/dL 10/19/2023 10:46 PM CULL GRADER LABORATORY Nitrite Urine Negative Negative 10/19/2023 10:46 PM CULL GRADER LABORATORY Leukocyte Esterase Urine Negative Negative 10/19/2023 10:46 PM CULL GRADER LABORATORY Mucus Urine Present(A) None Seen /LPF 10/19/2023 10:46 PM CULL GRADER LABORATORY RBC Urine 1 <=2 /HPF 10/19/2023 10:46 PM CULL GRADER LABORATORY WBC Urine 2 <=5 /HPF 10/19/2023 10:46 PM CULL GRADER LABORATORY Squamous Epithelials Urine 2(H) <=1 /HPF 10/19/2023 10:46 PM CULL GRADER LABORATORY Urine URINE SPECIMEN OBTAINED BY CLEAN CATCH PROCEDURE / Unknown Non-blood Collection / Unknown 10/19/2023 10:30 PM CULL GRADER 10/19/2023 10:39 PM CULL GRADER Narrative [facility] - 10/19/2023 10:46 PM CULL GRADER Urine Culture not indicated Idalmis Britt MD LAB - URINE ORDERABL ES LABORATORY [facility] [address] Lab (1st floor, no room number) [place] [address], [facility] [phone] * Urine Culture (10/19/2023 10:30 PM CULL GRADER) Culture 10,000-50,000 CFU/mL Mixture of Urogenital Daniella 10/21/2023 10:53 AM CULL GRADER [facility] Urine URINE SPECIMEN OBTAINED BY CLEAN CATCH PROCEDURE / Unknown Non-blood Collection / Unknown 10/19/2023 10:30 PM CULL GRADER 10/19/2023 10:39 PM CULL GRADER Idalmis Britt MD LAB - MICRO GENERAL ORDERABLES [facility] IDD [facility]OR[facility] Inf. Diseases Diag. Lab [address] [facility], [address] [place] [address], [place] [phone] * Adult Type and Screen (10/19/2023 1:22 PM CULL GRADER) ABO/RH(D) B POS 10/19/2023 1:12 PM CULL GRADER RH BLOOD BANK Antibody Screen Negative Negative 10/19/2023 1:12 PM CULL GRADER RH BLOOD BANK SPECIMEN EXPIRATION DATE [id number] 10/19/2023 1:12 PM CULL GRADER RH BLOOD BANK Blood STRUCTURE OF RIGHT UPPER LIMB / Unknown Venipuncture / Unknown 10/19/2023 1:22 PM CULL GRADER 10/19/2023 1:27 PM CULL GRADER Lisa Matthew MD LAB - BLOOD BANK DUTCH T ORDER BLOOD BANK [address] [place] [address] [place] [address] * (ABNORMAL) TSH (10/11/2023 3:40 PM CULL GRADER) TSH 4.51(H) 0.30 - 4.20 uIU/mL 10/11/2023 10:16 PM CULL GRADER [facility] LABORATORY Blood BLOOD SPECIMEN / Unknown Venipuncture / Unknown 10/11/2023 3:40 PM CULL GRADER 10/11/2023 3:40 PM CULL GRADER Rocio Mccarthy MD LAB - BLOOD ORDER [place] [facility] [place] [facility] [address] [facility], [address] [place] [address], [facility] [phone] * T4 free (10/11/2023 3:40 PM CULL GRADER) Free T4 1.05 0.90 - 1.70 ng/dL 10/11/2023 10:16 PM CULL GRADER [facility] LABORATORY Blood BLOOD SPECIMEN / Unknown Venipuncture / Unknown 10/11/2023 3:40 PM CULL GRADER 10/11/2023 3:40 PM CULL GRADER Rocio Mccarthy MD LAB - BLOOD ORDER [place] [facility] LABORATORY [facility] Core Lab [address] [facility], [address] [place] [address], [facility] [phone] * T3 Free (10/11/2023 3:40 PM CULL GRADER) T3 Free 2.7 2.0 - 4.4 pg/mL 10/11/2023 10:16 PM CULL GRADER [facility] LABORATORY Blood BLOOD SPECIMEN / Unknown Venipuncture / Unknown 10/11/2023 3:40 PM CULL GRADER 10/11/2023 3:40 PM CULL GRADER Rocio Mccarthy MD LAB - BLOOD ORDER [place] [facility] [place] [facility] [address] [facility], [address] [place] [address], [place] [phone] from Last 3 Months Advance Directives For more information, please contact: [phone] Latest Code Status on File Code Status [...] with patient/ legal decision maker Care Teams Ic Design Engineer Relationship Specialty Start Date End Date Billie Guadarrama PCP - General 12/17/19 Rocio Mccarthy MD [address] [place] [address] Assigned Endocrinology Provider 04/24/22 Erica Tristan MD [address] [place] [address] Assigned OBGYN Provider 08/06/23
--- OUTSIDE RECORDS SUMMARY | 2023-11-24 07:29 | XMS_ITS | Encounter Summary ---
Author Name Unknown Organization [place] Address [facility] [place] [address] Care Team Providers Care Thermite Welder Name Role Phone Billie Guadarrama Primary Care Provider Rocio Mccarthy MD Unavailable [phone] Erica Tristan MD Unavailable [phone] Reason for Visit * Reason Comments Ultrasound NST/Limited/UAR-FGR * Consultation (Routine) - Pending Review Specialty Diagnoses / Procedures Referred By Contac t Referred To Contact Diagnoses growth restriction antepartum Erica Tristan MD [address] [place] [address] Referral ID Status Reason Start Date Expiration Date V isits Requested Visits Authorized [id number] Pending Review 10/28/2023 10/27/2024 5 5 Encounter Details Date Type Department Care Team (Late st Contact Info) Description 11/11/2023 11:15 AM TIME STAMP ASSEMBLER Office Visit [facility] [place] [address] [facility] [address] [place] [address] Olivia Younger MD [address] [place] [address] growth restriction antepartum Social History Tobacco Use Types Packs/Day Years [...] Sex Assigned at Female 10/05/2020 9:54 PM TIME STAMP ASSEMBLER Gender Identity Female 10/05/2020 9:54 PM TIME STAMP ASSEMBLER Sexual Orientation Straight 10/05/2020 9: 54 PM TIME STAMP ASSEMBLER documented as of this encounter Last Filed Vital Signs Vital Sign Reading Time Taken Comments Blood Pressure 111/77 11/11/2023 11:30 AM TIME STAMP ASSEMBLER Pulse 68 11/11/2023 11:30 AM TIME STAMP ASSEMBLER Temperature - - Respiratory Rate - - Oxygen Saturation - - Inhaled Oxygen Concentration - - Weight - - Height - - Body Mass Index - - documented in this encounter Progress Notes * Olivia Younger MD - 11/11/2023 11:15 AM CST Please see Imaging tab under Chart Review for details of today's visit. Olivia Younger STAMP ASSEMBLER documented in this encounter Nursing Notes * Adry Quiles RN - 11/11/2023 11:15 AM CST Patient reports good movement, denies contractions, leaking of fluid, or bleeding. SBAR givento JUAN KRAMER, see their note in Epic. NST Performed due to FGR. Dr. Zuluaga reviewed efm tracing. See NST/BPP Doc Flowsheet tab. STAMP ASSEMBLER documented in this encounter Plan of Treatment Upcoming Encounters Date Type Department Care Team (Late st Contact Info) Description 12/12/2023 9:00 AM TIME STAMP ASSEMBLER Office Visit [facility] [place] [address] [place] [address] Erica Tristan MD [address] [place] [address] 12/12/2023 9:30 AM TIME STAMP ASSEMBLER Appointment [facility] Medicine [facility] [address] [place] [address] Derrick Valenzuela MD [address] [place] [address] 04/17/2024 9:00 AM CDT Virtual Visit [place] [address] [place] [address] Rocio Mccarthy MD [address] [place] [address] documented as of this encounter Visit Diagnoses Diagnosis growth restriction antepartum documented in this encounter Additional Health Concerns Assessment Noted Time PHQ-9 Depression Total Score: 11 023 10:04 AM CDT documented as of this encounter Care Teams Thermite Welder Relationship Specialty Start Date End Date SelinsusanBillie PCP - General 12/17/19 Rocio Mccarthy MD [address] [place] [address] Assigned Endocrinology Provider 04/24/22 Erica Tristan MD [address] [place] [address] Assigned OBGYN Provider 08/06/23 documented as of this encounter
--- OUTSIDE RECORDS SUMMARY | 2023-11-24 07:29 | XMS_ITS | Encounter Summary ---
Author Name Unknown Organization [place] Address [address] [place] [address]. [place] [address] Care Team Providers Care Steam Service Inspector Name Role Phone Selinsusan Billie Primary Care Provider [phone] Rocio Mccarthy MD Unavailable [phone] Erica Tristan MD Unavailable [phone] Reason for Referral * Diagnostic Imaging Ultrasound (Routine) - Pending Review Specialty Diagnoses / Procedures Referred By Contac t Referred To Contact Radiology. Diagnoses growth restriction antepartum Procedures Maternal US Comprehensive Single F/U Erica Tristan MD [address] [address] Referral ID Status Reason Start Date Expiration Date V isits Requested Visits Authorized [id number] Pending Review 10/28/2023 10/27/2024 1 1 ENTICE TECHNICIAN Reason for Visit * Diagnostic Imaging Ultrasound (Routine) - Pending Review Specialty Diagnoses / Procedures Referred By Contac t Referred To Contact Radiology. Diagnoses growth restriction antepartum Procedures Maternal US Comprehensive Single F/U Erica Tristan MD [address] [address] Referral ID Status Reason Start Date Expiration Date V isits Requested Visits Authorized [id number] Pending Review 10/28/2023 10/27/2024 1 1 Encounter Details Date Type Department Care Team (Latest Contact Info) Description 11/18/2023 9:02 AM APPRENTICE TECHNICIAN - 11/18/2023 11:59 PM APPRENTICE TECHNICIAN Hospital Encounter [facility] [address] [place] [address] Erica Tristan MD [address] [place] [address] Derrick Valenzuela MD [address] [place] [address] growth restriction antepartum Discharge Disposition: Home or Self Care Social [...] Sex Assigned at Female 10/05/2020 9:54 PM APPRENTICE TECHNICIAN Gender Identity Female 10/05/2020 9:54 PM APPRENTICE TECHNICIAN Sexual Orientation Straight 10/05/2020 9: 54 PM APPRENTICE TECHNICIAN documented as of this encounter Medications at [...] 0 08/09/2023 documented as of this encounter Plan of Treatment Upcoming Encounters Date Type Department Care Team (Late st Contact Info) Description 12/12/2023 9:00 AM APPRENTICE TECHNICIAN Office Visit [facility] [address] [facility] [address] [facility] [address] [place] [phone] Erica Tristan MD [address] [place], [place] [address] 12/12/2023 9:30 AM APPRENTICE TECHNICIAN Appointment [facility] [address] [place] [phone] Derrick Valenzuela MD [address] [place], [place] [address] 04/17/2024 9:00 AM CDT Virtual Visit [facility] [address] [place] [phone] Rocio Mccarthy MD [address] [place], [place] [address] documented as of this encounter Procedures Procedure Name Priority Date/Time Associated Diagnosis Comments MFM US COMPREHENSIVE SINGLE F/U Routine 11/18/2023 11:09 AM APPRENTICE TECHNICIAN growth restriction antepartum documented in this encounter Results * Maternal US Comprehensive Single F/U (11/18/2023 11:09 AM APPRENTICE TECHNICIAN) Anatomical Region Laterality Modality Ultrasound 11/18/2023 9:06 AM APPRENTICE TECHNICIAN Impressions 11/18/2023 4:16 PM APPRENTICE TECHNICIAN IMPRESSION ----- 1. Sebastian intrauterine at 34w [...] reactive and reassuring. Narrative 11/18/2023 4:16 PM APPRENTICE TECHNICIAN ?Comp Follow Up ----- Pat. Name: TAYLOR GARCIA ? Study Date: ??11/18/2023 9:06am Pat. NO: ??[id number] ?Referring ??MD: PAT DEVLIN Site: ??[place] ? Oracle Database Consultant: Danielle Sanchez RDMS : ??1995 ?Age: ?? [...] ?101.3 ?mm ? 29w 6d ? Nicolaides ?286.3 ?mm ?31w 3d ?Hadlock Cerebellum tr ?39.5 ? mm ?33w 4d ?Nicolaides AC ?284.0 ?mm ?32w 3d ?8% ?Hadlock Femur ?66.1 ? mm ?34w 0d ?Hadlock Weight Calculation: EFW ? 2,036 ?g ? 9% ? Hadlock EFW (lb,oz) ? 4 lb 8 ?oz EFW by ?Hadlock ([id number]) Head / Face / Neck Biometry: LLV ? 15.3 ?mm RLV ? 10.8 ?mm Housing Liaison ? 13.5 ?mm CM ?6.7 ? mm ANATOMY ----- The following structures appear abnormal: Head / Neck ? Right lateral ventricle: ventriculomegaly. Left lateral ventricle: ventriculomegaly. The following structures appear normal: Head / Neck ? Cranium. Head size. Head shape. Midline falx. Cavum septi pellucidi. Cerebellum. Cisterna magna. Thalami. Face ? Lips. Profile. Nose. Heart / Thorax ?4-chamber view. RVOT view. LVOT view. 4-tjnmbj-wzlpcti view. ? Diaphragm. Abdomen ? Stomach. Kidneys. [...] weeks. All these scans are anticipated at [facility]. Return to primary provider for continued care. [...] Comp Follow Up ----- Pat. Name: TAYLOR GARCIA Study Date: 11/18/2023 9:06am Pat. NO: [id number] Referring MD: PAT DEVLIN Site: [facility] Oracle Database Consultant: Danielle Sanchez RDMS : 1995 Age: 28 [...] 4 lb 8 oz EFW by Hadlock ([id number]) Head / Face / Neck Biometry: LLV 15.3 mm RLV 10.8 mm Housing Liaison 13.5 mm CM 6.7 mm ANATOMY ----- The following structures appear abnormal: Head / Neck Right lateral ventricle:ventriculomegaly. Left lateral ventricle: ventriculomegaly. The following structures appear normal: Head / Neck Cranium. Head size. Head shape.Midline falx. Cavum septi pellucidi. Cerebellum. Cisterna magna.Thalami. Face Lips. Profile. Nose. Heart / Thorax 4-chamber view. RVOT view. LVOT view.6-gvmvlo-kdvpyfy view. Diaphragm. Abdomen Stomach. Kidneys. Bladder. Spine [...] weeks. All these scans are anticipated at [facility]. Return to primary provider for continued care. [...] ventriculomegaly is again present, with right ventricle pkmtxiqoh10.6 mm and left difficult to measure due [...] was reactive and reassuring. Erica Tristan MD IMG MFM US ORDERABLE S documented in this encounter Visit Diagnoses Diagnosis growth restriction antepartum documented in this encounter Additional Health Concerns Assessment Noted Time PHQ-9 Depression Total Score: 11 023 10:04 AM CDT documented as of this encounter Care Teams Steam Service Inspector Relationship Specialty Start Date End Date Billie Guadarrama PCP - General 12/17/19 Rocio Mccarthy MD [address] [place], [place] [address] Assigned Endocrinology Provider 04/24/22 Erica Tristan MD [address] [place] [address] Assigned OBGYN Provider 08/06/23 documented as of this encounter
--- OUTSIDE RECORDS SUMMARY | 2023-11-24 07:29 | XMS_ITS | Encounter Summary ---
Author Name Unknown Organization [place] Address [address] [place] [address] Care Team Providers Care Sheriff Sergeant Name Role Phone Chiara Billie Primary Care Provider Rocio Mccarthy MD Unavailable [phone] Erica Tristan MD Unavailable [phone] Encounter Details Date Type Department Care Team (Late st Contact Info) Description 11/15/2023 Documentation Only [facility] M[facility] Medicine [facility] [place] [address] [place] [address] Sariah Arguello, [address] [address] [place] [address] Social History Tobacco Use Types Packs/Day Years [...] Sex Assigned at Female 10/05/2020 9:54 PM BAKER BREAD Gender Identity Female 10/05/2020 9:54 PM BAKER BREAD Sexual Orientation Straight 10/05/2020 9: 54 PM BAKER BREAD documented as of this encounter Progress Notes * Sariah Arguello GC - 11/15/2023 10:22 AM CST November 15, 2023 [facility] calling MFM hotel front desk agent asking if we can fax Altagracia's genetic counseling notes and chromosomal microarray report to their office. Faxed records to [phone] Edge. Sariah Arguello MS, [facility] Maternal Medicine Office: [phone] [facility]: [phone] [facility] R BREAD documented in this encounter Plan of Treatment Upcoming Encounters Date Type Department Care Team (Late st Contact Info) Description 12/12/2023 9:00 AM BAKER BREAD Office Visit [facility] Maternal Medicine [facility] [address] [place] [address] Erica Tristan MD [address] [place], [place] [address] 12/12/2023 9:30 AM BAKER BREAD Appointment [facility] Maternal Medicine [facility] [address] [place] [phone] Derrick Valenzuela MD [address] [place], [place] [address] 04/17/2024 9:00 AM CDT Virtual Visit [facility] [address] [place] [phone] Rocio Mccarthy MD [address] [place] [address] documented as of this encounter Visit Diagnoses Not on filedocumented in this encounter Additional Health Concerns Assessment Noted Time PHQ-9 Depression Total Score: 11 023 10:04 AM CDT documented as of this encounter Care Teams Sheriff Sergeant Relationship Specialty Start Date End Date Billie Guadarrama PCP - General 12/17/19 Rocio Mccarthy MD [address] [facility] [address] [place] [address] Assigned Endocrinology Provider 04/24/22 Erica Tristan MD [address] [address] [place] [address] Assigned OBGYN Provider 08/06/23 documented as of this encounter
--- OUTSIDE RECORDS SUMMARY | 2023-11-24 07:29 | XMS_ITS | Encounter Summary ---
Author Name Unknown Organization [place] Address [address] [facility] [place] [address] Care Team Providers Care Java Lead Developer Name Role Phone Chiara Billie Primary Care Provider Rocio Mccarthy MD Unavailable [phone] Erica Tristan MD Unavailable [phone] Encounter Details Date Type Department Care Team (Late st Contact Info) Description 11/11/2023 Documentation Only [facility] M[facility] Medicine [facility] [place] [address] [facility] [address] [place] [address] Sariah Arguello, [address] [address] [place] [address] Social History Tobacco Use Types [...] Sex Assigned at Female 10/05/2020 9:54 PM PROGRAM HOST Gender Identity Female 10/05/2020 9:54 PM PROGRAM HOST Sexual Orientation Straight 10/05/2020 9: 54 PM PROGRAM HOST documented as of this encounter Progress Notes * Sariah Arguello GC - 11/11/2023 11:19 AM CST November 11, 2023 I met with Altagracia briefly today to provide her with printed out copies of Altagracia's genetic counseling appointment notes and phone conversation notes with my colleague, Karina Bone. I also gave her a printed out copy of Altagracia's chromosomal microarray result. Altagracia had no questions for myselfor Karina at this time. I let her know that Karina's phone number is in her signature on the notes ifshe does have any questions. Sariah Arguello MS, [facility] Maternal Medicine Office: [phone] M[facility]: [phone] [facility] RAM HOST documented in this encounter Plan of Treatment Upcoming Encounters Date Type Department Care Team (Late st Contact Info) Description 12/12/2023 9:00 AM PROGRAM HOST Office Visit [facility] Maternal Medicine [place] [address] [place] [phone] Erica Tristan MD [address] [place] [address] 12/12/2023 9:30 AM PROGRAM HOST Appointment [facility] Maternal Medicine [facility] [address] [place] [phone] Derrick Valenzuela MD [address] [place] [address] 04/17/2024 9:00 AM CDT Virtual Visit [facility] [address] [place] [phone] Rocio Mccarthy MD [address] [place] [address] documented as of this encounter Visit Diagnoses Not on filedocumented in this encounter Additional Health Concerns Assessment Noted Time PHQ-9 Depression Total Score: 11 023 10:04 AM CDT documented as of this encounter Care Teams Java Lead Developer Relationship Specialty Start Date End Date Billie Guadarrama PCP - General 12/17/19 Rocio Mccarthy MD [address] [place] [address] Assigned Endocrinology Provider 04/24/22 Erica Tristan MD [address] [place], [place] [address] Assigned OBGYN Provider 08/06/23 documented as of this encounter
--- OUTSIDE RECORDS SUMMARY | 2023-11-24 07:29 | XMS_ITS | Encounter Summary ---
Author Name Unknown Organization [place] Address [address] [place] [address] Care Team Providers Care Front Desk Administrator Name Role Phone Billie Guadarrama Primary Care Provider Rocio Mccarthy MD Unavailable [phone] Erica Tristan MD Unavailable [phone] Reason for Referral * Diagnostic Imaging Ultrasound (Routine) - Pending Review Specialty Diagnoses / Procedures Referred By Contac t Referred To Contact Radiology. Diagnoses growth restriction antepartum Procedures MFM US Comprehensive Single F/U Derrick Valenzuela MD [address] [place] [address] Referral ID Status Reason Start Date Expiration Date V isits Requested Visits Authorized [id number] Pending Review 11/18/2023 11/17/2024 1 1 RANCE COORDINATOR Reason for Visit * Reason Comments Ultrasound RL2/UAR/NST- FGR, bi lateral ventriculomegaly * Consultation (Routine) - Pending Review Specialty Diagnoses / Procedures Referred By Contreinaldo t Referred To Contact Diagnoses growth restriction antepartum Erica Tristan MD [address] [place] [address] Referral ID Status Reason Start Date Expiration Date V isits Requested Visits Authorized [id number] Pending Review 10/28/2023 10/27/2024 5 5 Encounter Details Date Type Department Care Team (Late st Contact Info) Description 11/18/2023 9:45 AM INSURANCE COORDINATOR Office Visit [facility] Maternal Medicine Center [address] [place] [address] Erica Tristan MD [address] [place] [address] Derrick Valenzuela MD [address] [place] [address] growth restriction antepartum Social History [...] Sex Assigned at Female 10/05/2020 9:54 PM INSURANCE COORDINATOR Gender Identity Female 10/05/2020 9:54 PM INSURANCE COORDINATOR Sexual Orientation Straight 10/05/2020 9: 54 PM INSURANCE COORDINATOR documented as of this encounter Last Filed Vital Signs Vital Sign Reading Time Taken Comments Blood Pressure 114/57 11/18/2023 10:26 AM INSURANCE COORDINATOR Pulse 99 11/18/2023 10:26 AM INSURANCE COORDINATOR Temperature - - Respiratory Rate - - Oxygen Saturation - - Inhaled Oxygen Concentration - - Weight - - Height - - Body Mass Index - - documented in this encounter Progress Notes * Derrick Valenzuela MD - 11/18/2023 9:45 AM CST Please see full imaging report from ViewPoint program under imaging tab. Derrick Valenzuela MD Maternal Medicine RANCE COORDINATOR documented in this encounter Nursing Notes * Rosalinda Monroe RN - 11/18/2023 9:45 AM CST Patient reports positive movement- although hasn't noticed this morning yet, no pain, no contractions, leaking of fluid, or bleeding. NST Performed due to FGR. Dr. Valenzuela reviewed efm tracing. See NST/BPP Doc Flowsheet tab. RANCE COORDINATOR documented in this encounter Plan of Treatment Upcoming Encounters Date Type Department Care Team (Late st Contact Info) Description 12/12/2023 9:00 AM INSURANCE COORDINATOR Office Visit [facility] Maternal Medicine [facility] [address] [facility] [address] [place] [phone] Erica Tristan MD [address] [place], [place] [address] 12/12/2023 9:30 AM INSURANCE COORDINATOR Appointment [facility] Maternal Medicine [facility] [address] [facility] [address] [place] [phone] Derrick Valenzuela MD [address] [place], [place] [address] 04/17/2024 9:00 AM CDT Virtual Visit [facility] [address] [place] [phone] Rocio Mccarthy MD [address] [place] [address] Scheduled Orders Name Type Priority Associated Diagnoses Orde r Schedule MFM US Comprehensive Single F/U Imaging Routine growth restriction antepartum Expected: 12/09/2023 (Approximate), Expires: 11/18/2024 documented as of this encounter Visit Diagnoses Diagnosis growth restriction antepartum documented in this encounter Additional Health Concerns Assessment Noted Time PHQ-9 Depression Total Score: 11 023 10:04 AM CDT documented as of this encounter Care Teams Front Desk Administrator Relationship Specialty Start Date End Date Billie Guadarrama PCP - General 12/17/19 Rocio Mccarthy MD [address] [place] [address] Assigned Endocrinology Provider 04/24/22 Erica Tristan MD [address] [place], [place] [address] Assigned OBGYN Provider 08/06/23 documented as of this encounter
--- OUTSIDE RECORDS SUMMARY | 2023-11-24 07:29 | XMS_ITS | Encounter Summary ---
Author Name Unknown Organization [facility] Address [address] [place] [address]. [place] [address] Care Team Providers Care Ornamental Iron Worker Name Role Phone Chiara Billie Primary Care Provider [phone] Rocio Mccarthy MD Unavailable [phone] Erica Tristan MD Unavailable [phone] Reason for Referral * Diagnostic Imaging Ultrasound (Routine) - Pending Review Specialty Diagnoses / Procedures Referred By Contac t Referred To Contact Radiology. Diagnoses growth restriction antepartum Procedures Maternal US OB Limited Zeynep/Erica Baldwin MD [address] [address] Referral ID Status Reason Start Date Expiration Date V isits Requested Visits Authorized [id number] Pending Review 10/28/2023 10/27/2024 1 1 [employer]ER BUSINESS INTELLIGENCE Reason for Visit * Diagnostic Imaging Ultrasound (Routine) - Pending Review Specialty Diagnoses / Procedures Referred By Contac t Referred To Contact Radiology. Diagnoses growth restriction antepartum Procedures Maternal US OB Limited Zeynep/Erica Baldwin MD [address] [address] Referral ID Status Reason Start Date Expiration Date V isits Requested Visits Authorized [id number] Pending Review 10/28/2023 10/27/2024 1 1 Encounter Details Date Type Department Care Team (Latest Contact Info) Description 11/11/2023 10:50 AM MANAGER BUSINESS INTELLIGENCE - 11/11/2023 11:59 PM MANAGER BUSINESS INTELLIGENCE Hospital Encounter [facility] [place] [address] [facility] [address] [place] [address] Olivia Younger MD [address] [place] [address] growth restriction antepartum Discharge Disposition: [...] Sex Assigned at Female 10/05/2020 9:54 PM MANAGER BUSINESS INTELLIGENCE Gender Identity Female 10/05/2020 9:54 PM MANAGER BUSINESS INTELLIGENCE Sexual Orientation Straight 10/05/2020 9: 54 PM MANAGER BUSINESS INTELLIGENCE documented as of this encounter Medications at [...] st Contact Info) Description 12/12/2023 9:00 AM MANAGER BUSINESS INTELLIGENCE Office Visit [facility] Maternal Medicine [facility] [address] [facility] [address] [place] [phone] Erica Tristan MD [address] [place], [place] [id number] 12/12/2023 9:30 AM MANAGER BUSINESS INTELLIGENCE Appointment [facility] Medicine [facility] [address] [facility] [address] [place] [phone] Derrick Valenzuela MD [address] [place], [place] [address] 04/17/2024 9:00 AM CDT Virtual Visit [facility] [address] [place] [phone] Rocio Mccarthy MD [address] [place], [place] [id number] documented as of this encounter Procedures Procedure Name Priority Date/Time Associated Diagnosis Comments [facility] US OB LIMITED SINGLE/MULTIPLE Routine 11/11/2023 11:47 AM MANAGER BUSINESS INTELLIGENCE growth restriction antepartum documented in this encounter Results * Maternal US OB Limited Single/Multiple (11/11/2023 11:47 AM MANAGER BUSINESS INTELLIGENCE) Anatomical Region Laterality Modality Ultrasound 11/11/2023 11:3 5 AM MANAGER BUSINESS INTELLIGENCE Impressions 11/11/2023 1:32 PM MANAGER BUSINESS INTELLIGENCE IMPRESSION ----- 1. Sebastian intrauterine at 33w 3d with growth restriction (EFW 8%, AC 6% on 10/28) here for surveillance. 2. The amniotic fluid volume appeared normal. 3. The umbilical artery dopplers were within normal limits. 4. The NST was reactive and reassuring. Narrative 11/11/2023 1:32 PM MANAGER BUSINESS INTELLIGENCE ?Limited ----- Pat. Name: TAYLOR GARCIA ? Study Date: ??11/11/2023 11:35am Pat. NO: ??[id number] ?Referring ??: PAT DEVLIN Site: [facility] ? [place]: Catalina Pickett RDMS : ??1995 ?Age: ?? 28 ----- [...] primary physician and continue to follow with M every 3 weeks for growth and neuroanatomy [...] the patient (reviewing medical records/tests), in direct [id number] contact with the patient during her visit with the majority spent counseling and discussing the plan of care and documenting the visit in the electronic medical record. Please see note for details. Procedure Note Olivia Younger MD - 11/11/2023 Limited ----- Pat. Name: TAYLOR GARCIA Study Date: 11/11/2023 11:35am Pat. NO: [id number] Referring MD: PAT DEVLIN Site: [facility] Silver [employer]er: Catalina Pickett RDMS : 1995 Age: 28 ----- INDICATION [...] primary physician and continue to follow with [facility]Mevery 3 weeks for growth and neuroanatomy assessment. [...] see the patient (reviewing medical records/tests), in [id number] contact with the patient during her visit [...] documented as of this encounter Care Teams Ornamental Iron Worker Relationship Specialty Start Date End Date Billie Guadarrama PCP - General 12/17/19 Rocio Mccarthy MD [address] [place] [address] Assigned Endocrinology Provider 04/24/22 Erica Tristan MD [address] [place] [address] Assigned OBGYN Provider 08/06/23 documented as of this encounter
--- OUTSIDE RECORDS SUMMARY | 2023-11-24 07:29 | XMS_ITS | Referral Summary ---
Author Name Unknown Organization [place] Address [address] [place] [address]. [place] [address] Care Team Providers [employer] Name Role Phone Billie Guadarrama Primary Care Provider [phone] Rocio Mccarthy MD Unavailable [phone] Erica Tristan MD Unavailable [phone] Encounters Date Type Department Care Team Description 11/18/2023 Travel 11/18/2023 9:02 AM ORE SAMPLER - 11/18/2023 11:59 PM ORE SAMPLER Hospital Encounter [facility] Maternal Medicine [address] [phone] Erica Tristan MD Jones, Cresta Wedel, MD growth restriction antepartum Discharge Disposition: Home or Self Care 11/18/2023 9:45 AM ORE SAMPLER Office Visit [facility] Maternal Medicine [address] [phone] Erica Tristan MD Jones, Cresta Wedel, MD growth restriction antepartum 11/15/[address] [facility] [address] [place] [phone] Sariah Arguello GC 11/11/[address] [facility] [address] [place] [address] Sariah Arguello GC 11/11/2023 Travel 11/11/2023 10:50 AM ORE SAMPLER - 11/11/2023 11:59 PM ORE SAMPLER Hospital Encounter [facility] [address] [place] [address] Olivia Younger MD growth restriction antepartum Discharge Disposition: Home or Self Care 11/11/2023 11:15 AM ORE SAMPLER Office Visit [facility] Maternal Medicine [place] [address] [place] [address] Olivia Younger MD growth restriction antepartum 11/11/2023 8:29 AM ORE SAMPLER - 11/11/2023 10:49 AM ORE SAMPLER Hospital Encounter [facility] [place] [phone] Olivia Yuonger MD complicated by cerebral ventriculomegaly, single or unspecified fetus Discharge Disposition: Home or Self Care 11/09/[address] [facility] Maternal Medicine [address] [phone] Karina Bone GC Results (Microarray (amniocentesis)) 11/04/2023 Travel 11/04/2023 2:49 PM ORE SAMPLER - 11/04/2023 11:59 PM ORE SAMPLER Hospital Encounter [facility] [address] [place] [address] Erica Tristan MD Yamamura, Yasuko, MD growth restriction antepartum Discharge Disposition: Home or Self Care 11/04/2023 3:00 PM ORE SAMPLER Office Visit [facility] [address] [place] [address] Erica Tristan MD Yamamura, Yasuko, MD growth restriction antepartum (Primary Dx) 11/03/2023 Travel 11/03/[address] [facility] Maternal Medicine [address] [phone] Karina Bone GC 11/03/[address] [facility] Maternal Medicine [address] [phone] Karina Bone GC Results (Toxoplasmosis (amniocentesis)) 10/31/2023 Telephone [facility] Medicine [place] [address] [phone] Karina Bone GC Results (CMV) 10/28/[address] [facility] Maternal Medicine [facility] [address] [place] [address] Lisa Larose RN 10/28/2023 1:30 PM ORE SAMPLER Office Visit [facility] Medicine [facility] [address] [place] [address] Erica Tristan MD Barnett, Chloe, GC Abnormal ultrasound 10/28/[address] [facility] Maternal Medicine [facility] [address] [place] [address] Karina Bone GC Abnormal ultrasound (Primary Dx) 10/28/2023 Travel 10/28/2023 12:15 PM ORE SAMPLER Office Visit [facility] Medicine [facility] [address] [place] [address] Erica Tristan MD growth restriction antepartum (Primary Dx); complicated by cerebral ventriculomegaly, single or unspecified fetus; Abnormal ultrasound 10/28/2023 11:30 AM ORE SAMPLER - 10/28/2023 11:59 PM ORE SAMPLER Hospital Encounter [facility] Medicine [facility] [address] [place] [phone] Erica Tristan MD related condition, antepartum Discharge Disposition: Home or Self Care 10/25/2023 Medical Correspondence [facility] [address] [place] [address] Scan, Non-Provider 10/25/2023 Travel 10/25/[address] [facility] [address] [place] [address] Rosette Devlin MD related condition, antepartum (Primary Dx) 10/19/2023 11:54 AM ORE SAMPLER - 10/20/2023 10:44 AM ORE SAMPLER Hospital Encounter [facility] [address] [place] [address] Lisa Matthew MD Bayer, Chelsea, MD Shibley, Kirk Anthony, MD Indication for care in labor or delivery (Primary Dx) Discharge Disposition: Home or Self Care 10/19/2023 Hospital Encounter [facility] [address] [place] [address] Simon Marcial MD 10/18/2023 MyC Medical Advice [facility] [address] [place] [address] Chelita Harrell CMA 10/18/2023 9:30 AM ORE SAMPLER Virtual Visit [facility] [address] [place] [phone] Rocio Mccarthy MD 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); , incidental 10/11/2023 Travel 10/11/2023 3:45 PM ORE SAMPLER Lab [facility] [address] [place] [phone] 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 10/09/2023 MyC Medical Advice [facility] [address] [place] [address] Rocio Mccarthy MD 09/15/2023 MyC Medical Advice [facility] [address] [place] [phone] Rocio Mccarthy MD 09/12/2023 Telephone [facility] [address] [place] [phone] Rocio Mccarthy MD Call Back 08/24/2023 MyC Medical Advice [facility] [address] [place] [phone] Rocio Mccarthy MD from Last 3 Months Allergies Active Allergy [...] 09/20/2002, 8,1997,1996 DTP-Hib 1997 DTaP, Unspecified 04/06/2010 [id number] Novel Flu 12/23/2009 HEPATITIS A (PEDS 12M-18Y) [...] Sex Assigned at Female 10/05/2020 9:54 PM ORE SAMPLER Gender Identity Female 10/05/2020 9:54 PM ORE SAMPLER Sexual Orientation Straight 10/05/2020 9: 54 PM ORE SAMPLER Last Filed Vital Signs Vital Sign Reading Time Taken Comments Blood Pressure 114/57 11/18/2023 10:26 AM ORE SAMPLER Pulse 99 11/18/2023 10:26 AM ORE SAMPLER Temperature 36.6 ??C (97.9 ??F) 10/20/2023 7:18 AM CS T Respiratory Rate 16 10/20/2023 7:18 AM ORE SAMPLER Oxygen Saturation 98% 11/04/2023 3:10 PM ORE SAMPLER Inhaled Oxygen Concentration - - Weight 114.8 kg (253 lb) 10/19/2023 12:22 PM ORE SAMPLER Height 165.1 cm (5' 5) 10/19/2023 12:22 PM ORE SAMPLER Body Mass Index 42.1 10/19/2023 12:22 PM ORE SAMPLER Plan of Treatment Upcoming Encounters Date Type Department Care Team (Late st Contact Info) Description 12/12/2023 9:00 AM ORE SAMPLER Office [facility] [address] [facility] [address] [place] [address] Erica Tristan MD [address] [place] [address] 12/12/2023 9:30 AM ORE SAMPLER Appointment [facility] [address] [facility] [address] [place] [phone] Derrick Valenzuela MD [address] [place] [address] 04/17/2024 9:00 AM CDT Virtual Visit [facility] [address] [place] [phone] Rocio Mccarthy MD [address] [place] [address] Procedures Procedure Name Priority Date/Time Associated Diagnosis Comments [facility] US COMPREHENSIVE SINGLE F/U Routine 11/18/2023 11:09 AM ORE SAMPLER growth restriction antepartum [facility] OB LIMITED SINGLE/MULTIPLE Routine 11/11/2023 11:47 AM ORE SAMPLER growth restriction antepartum MR Routine 11/11/2023 10:10 AM ORE SAMPLER complicated by cerebral ventriculomegaly, single or unspecified fetus [facility] OB LIMITED SINGLE/MULTIPLE Routine 11/04/2023 3:38 PM ORE SAMPLER growth restriction antepartum MATERNAL CELL CONTAMINATION, MATERNAL SPECIMEN STAT 10/28/2023 1:56 PM ORE SAMPLER Abnormal ultrasound CYTOMEGALOVIRUS QUALITATIVE PCR STAT 10/28/2023 1:49 PM ORE SAMPLER Abnormal ultrasound A1 FLASK Routine 10/28/2023 1:49 PM ORE SAMPLER Abnormal ultrasound AMNIOTIC CULTURE (CYTOGENETICS) Routine 10/28/2023 1:49 PM ORE SAMPLER Abnormal ultrasound IN-SITU CELL CULTURE ONLY, AMNIOTIC FLUID STAT 10/28/2023 1:49 PM ORE SAMPLER Abnormal ultrasound CYTOGENOMIC MICROARRAY SNP STAT 10/28/2023 1:49 PM ORE SAMPLER Abnormal ultrasound TOXOPLASMA GONDII BY PCR STAT 10/28/2023 1:49 PM ORE SAMPLER Abnormal ultrasound [facility] US COMPREHENSIVE SINGLE F/U Routine 10/28/2023 11:59 AM ORE SAMPLER related condition, antepartum GENETIC LAB RESULT - HIM SCAN 10/28/2023 12:00 AM ORE SAMPLER US OB FOLLOW UP >14 WEEKS STAT 10/20/2023 8:40 AM ORE SAMPLER URINE CULTURE STAT Add-on 10/19/2023 10:30 PM ORE SAMPLER ROUTINE UA WITH MICROSCOPIC REFLEX TO CULTURE Routine 10/19/2023 10:30 PM ORE SAMPLER ABO/RH TYPE AND SCREEN Timed 1:22 PM ORE SAMPLER TYPE AND SCREEN, ADULT Timed 1:22 PM ORE SAMPLER TSH Routine 10/11/2023 3:40 PM ORE SAMPLER 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 Anatomical Region Laterality Modality Ultrasound 11/18/2023 9:06 AM ORE SAMPLER Impressions 11/18/2023 4:16 PM ORE SAMPLER IMPRESSION ----- 1. Sebastian intrauterine at 34w [...] reactive and reassuring. Narrative 11/18/2023 4:16 PM ORE SAMPLER ?Comp Follow Up ----- Pat. Name: TAYLOR RAHMAN ? Study Date: ??11/18/2023 9:06am Pat. NO: ??[id number] ?Referring ??MD: ROSETTE DEVLIN Site: ??[facility] ? Canvas Goods Maker: Danielle Sanchez RDMS : ??1995 ?Age: ?? [...] 4 lb 8 ?oz EFW by ?Hadlock ([id number]) Head / Face / Neck Biometry: LLV ? 15.3 ?mm RLV ? 10.8 ?mm Plant Safety Leader ? 13.5 ?mm CM ?6.7 ? mm ANATOMY ----- The following structures appear abnormal: Head / Neck ? Right lateral ventricle: ventriculomegaly. Left lateral ventricle: ventriculomegaly. The following structures appear normal: Head / Neck ? Cranium. Head size. Head shape. Midline falx. Cavum septi pellucidi. Cerebellum. Cisterna magna. Thalami. Face ? Lips. Profile. Nose. Heart / Thorax ?4-chamber view. RVOT view. LVOT view. 6-tszlch-pvmbhcf view. ? Diaphragm. Abdomen ? Stomach. Kidneys. [...] weeks. All these scans are anticipated at [facility]. Return to primary provider for continued care. [...] RAHMAN Study Date: 11/18/2023 9:06am Pat. NO: [id number] Referring MD: ROSETTE DEVLIN Site: [facility] Canvas Goods Maker: Danielle Sanchez RDMS : 1995 Age: 28 [...] assessment (on 05/12/2023) 34 w + 3 12/27/2023 GENERAL EVALUATION ----- [...] 4 lb 8 oz EFW by Hadlock ([id number]-FL) Head / Face / Neck Biometry: LLV 15.3 mm RLV 10.8 mm Plant Safety Leader 13.5 mm CM 6.7 mm ANATOMY ----- The following structures appear abnormal: Head / Neck Right lateral ventricle:ventriculomegaly. Left lateral ventricle: ventriculomegaly. The following structures appear normal: Head / Neck Cranium. Head size. Head shape.Midline falx. Cavum septi pellucidi. Cerebellum. Cisterna magna.Thalami. Face Lips. Profile. Nose. Heart / Thorax 4-chamber view. RVOT view. LVOT view.8-irmcbh-dqrwrdk view. Diaphragm. Abdomen Stomach. Kidneys. Bladder. Spine [...] weeks. All these scans are anticipated at [facility]. Return to primary provider for continued care. [...] ventriculomegaly is again present, with right ventricle bfipitxtb26.6 mm and left difficult to measure due [...] was reactive and reassuring. Erica Tristan MD [facility] US ORDERABLE S * Maternal US OB Limited Single/Multiple (11/11/2023 11:47 AM ORE SAMPLER) Only the most recent of2 resultswithin the time period is included. Anatomical Region Laterality Modality Ultrasound 11/11/2023 11:3 5 AM ORE SAMPLER Impressions 11/11/2023 1:32 PM ORE SAMPLER IMPRESSION ----- 1. Sebastian intrauterine at 33w 3d with growth restriction (EFW 8%, AC 6% on 10/28) here for surveillance. 2. The amniotic fluid volume appeared normal. 3. The umbilical artery dopplers were within normal limits. 4. The NST was reactive and reassuring. Narrative 11/11/2023 1:32 PM ORE SAMPLER ?Limited ----- Pat. Name: MAITEJOSE TAYLOR ? Study Date: ??11/11/2023 11:35am Pat. NO: ??[id number] ?Referring ??MD: ROSETTE DEVLIN Site: ??[facility] ? Canvas Goods Maker: Catalina PickettDEREJE : ??1995 ?Age: ?? 28 ----- INDICATION [...] the patient (reviewing medical records/tests), in direct ivvd-xo-qumi contact with the patient during her visit with the majority spent counseling and discussing the plan of care and documenting the visit in the electronic medical record. Please see note for details. Procedure Note Olivia Younger MD - 11/11/2023 Limited ----- Pat. Name: MAITETAYLOR GARCIA Study Date: 11/11/2023 11:35am Pat. NO: [id number] Referring MD: ROSETTE DEVLIN Site[facility] Canvas Goods Maker: Catalina Pickett RD : 1995 Age: 28 ----- INDICATION ----- [...] see the patient (reviewing medical records/tests), in wwdujelbdr-vz-hygb contact with the patient during her visit [...] was reactive and reassuring. Erica Tristan MD [facility] US ORDERABLE S * MR (11/11/2023 10:10 AM ORE SAMPLER) Anatomical Region Laterality Modality Abdomen/Pelvis, SUBRAD MR BODY, UMP MR BODY Magnetic Resonance Impressions 11/11/2023 10:28 AM ORE SAMPLER IMPRESSION: 1. Mild lateral ventricular dilatation measuring 11 mm on the right and 12 mm on the left. No structural brain abnormality is identified. 2. Cephalic lie. Cervix appears completely effaced and minimally dilated. Cervical effacement was discussed with Dr. Tristan at the time of the examination. MAMI CHARLES MD Narrative 11/11/2023 10:28 AM ORE SAMPLER EXAM: MRI HISTORY: Ventriculomegaly PROCEDURE COMMENT: MRI, [...] examination. MAMI CHARLES MD Erica Tristan MD [facility] [place]LES * Maternal Cell Contamination, Maternal Specimen (10/28/2023 1:56 PM ORE SAMPLER) Maternal Cell Contam, Maternal Spec Sent to [facility]. 10/31/2023 11:08 AM ORE SAMPLER [facility] Blood STRUCTURE OF RIGHT UPPER LIMB / Unknown Venipuncture / Unknown 10/28/2023 1:56 PM ORE SAMPLER 10/28/2023 2:58 PM ORE SAMPLER Karina Bone GC LAB - BLOOD ORDERABL ES [facility] Project [address] [place] [id number], [place] [phone] * A1 Flask (10/28/2023 1:49 PM ORE SAMPLER) Amniotic fluid STRUCTURE OF AMNION / Unknown Non-blood Collection / Unknown 10/28/2023 1:49 PM ORE SAMPLER 10/28/2023 2:59 PM ORE SAMPLER Karina Bone GC LAB - BETALYA AP CYTOGENETICS [facility] Cytogenetics Lab [address] [place] [address] * Amniotic Culture (10/28/2023 1:49 PM ORE SAMPLER) Amniotic fluid STRUCTURE OF AMNION / Unknown Non-blood Collection / Unknown 10/28/2023 1:49 PM ORE SAMPLER 10/28/2023 2:59 PM ORE SAMPLER Karina ALBARADO - BETALYA AP Performing Organization Address [facility] de Phone Number [facility] Cytogenetics Lab [address] [place] [address] * In-situ Cell Culture only, Amniotic fluid (10/28/2023 1:49 PM ORE SAMPLER) Results An amniotic fluid sample was collected and received in the Cytogenetics Laboratory on 10-28-2023 and initiated into a single culture . As no additional testing was necessary, these cultures were discarded on 11-10-2023 per the direction of Karina Bone MS, LG. 11/10/2023 11:31 AM ORE SAMPLER CYTOGENETICS Amniotic fluid STRUCTURE OF AMNION / Unknown Non-blood Collection / Unknown 10/28/2023 1:49 PM ORE SAMPLER 10/28/2023 2:59 PM ORE SAMPLER Karina Bone GC LAB - [facility] [place] [facility] CYTOGENETICS [facility]ogen[facility] [address] [facility] Room [facility] [phone] * Cytogenomic Microarray SNP (10/28/2023 1:49 PM ORE SAMPLER) Cytogenomic SNP Microarray See Note Normal 11/08/2023 12:59 PM ORE SAMPLER [facility] Comment: Test Performed: Cytogenomic SNP Microarray- [...] within the BROOKS identified in this study: [email or web address] and [email or web address] Recommendation: Genetic counseling Health care providers with questions may contact an [facility] genetic counselor at ext. [phone]. References: 1) Monica. Genomic Imprinting and Uniparental Disomy in Medicine: Clinical and Molecular Aspects. [place], [place]. Francois-Renea; 2002:49-54. 2) Chad. Nanda's Chromosome Abnormalities and Genetic Counseling. 5th edition. [place], [place]: [place]; 2018. 3) Alex et al. A clinical evaluation tool for SNP arrays, especially for autosomal recessive conditions in offspring of consanguineous parents. Marisol Med. 2012;15(5):354-60. PMID: [id number]. Cytogenomic Nomenclature (ISCN): arr[GRCh37] 1p36.33q44([id number] Technical Information - This assay was performed using the [employer] Suite ([employer]) according to validated protocols within the Genomic Microarray Laboratory at [facility] - This assay is designed to detect alterations to DNA copy number state (gains and losses), copy-neutral alterations (regions of homozygosity; BROOKS) that indicate an absence- or slkf-il-jlzfwgxaqzkwpe (AOH or DEMETRIUS), and certain alterations to [...] copy number and BROOKS determination - The Meteor HD array contains 2.67 million markers across [...] performed in accordance with recommendations by the [place] [employer] and Gen[employer] (ACMG), [...] used in CNV classification, please refer to [facility] Constitutional CNV Assertion Criteria, which can be found on [facility]'s Genetics website at [email or web address] - CNVs classified as likely benign or [...] reviewed and approved by Akira Sandoval MD, [facility] INTERPRETIVE INFORMATION: Cytogenomic SNP Microarray - This test was developed and its performance characteristics determined by [employer]. It has not been cleared or approved by the US Food and Drug Administration. This test was performed in a CLIA certified laboratory and is intended for clinical purposes. Counseling and informed consent are recommended for genetic testing. Consent forms are available online. Maternal Contamination Study Spec Cells 11/08/2023 12:59 PM ORE SAMPLER [employer] Comment: Single genotype present; no maternal cells present. ?? and maternal samples were tested using STR markers to rule out maternal cell contamination. This result has been reviewed and approved by Farzana Hunyh M.D., Ph.D. Cytogenomic Maternal Specimen Yes 11/08/2023 12:59 PM ORE SAMPLER [employer] Comment: Performed By: [employer] [address] [place] [address] Fitness Coach: Fco Rosa MD, PhD CLIA Number: [id number] Amniotic fluid STRUCTURE OF AMNION / Unknown Non-blood Collection / Unknown 10/28/2023 1:49 PM ORE SAMPLER 10/28/2023 2:58 PM ORE SAMPLER Karina Bone GC LAB - BODY FLUIDS OR DERABLES [employer] [address] [place] [id number], [facility] [phone] * Cytomegalovirus Qualitative PCR Non Bld (10/28/2023 1:49 PM ORE SAMPLER) CMV Qualitative PCR Not Detected 4:19 AM ORE SAMPLER [facility] [employer] Comment: NOT DETECTED - A negative result does not rule out the presence of PCR inhibitors in the patient specimen or assay specific nucleic acid in concentrations below the level of detection by the assay. INTERPRETIVE INFORMATION: Cytomegalovirus Detection by PCR This test was developed and its performance characteristics determined by [employer]. It has not been cleared or approved by the US Food and Drug Administration. This test was performed in a CLIA certified laboratory and is intended for clinical purposes. Performed By: [employer] [address] [place] [address] Fitness Coach: Fco Rosa MD, PhD CLIA Number: [id number] Amniotic fluid STRUCTURE OF AMNION / Unknown Non-blood Collection / Unknown 10/28/2023 1:49 PM ORE SAMPLER 10/28/2023 2:58 PM ORE SAMPLER [facility] - MICRO GENERAL ORDERABLES [address] [address], [facility] [phone] * Toxoplasma gondii by PCR (10/28/2023 1:49 PM ORE SAMPLER) Toxoplamsma Gondii PCR Not Detected 11/02/2023 10:28 PM ORE SAMPLER [facility] [employer] Comment: NOT DETECTED - A negative result does not rule out the presence of PCR inhibitors in the patient specimen or assay specific nucleic acid in concentrations below the level of detection by the assay. INTERPRETIVE INFORMATION: Toxoplasma gondii by PCR This test was developed and its performance characteristics determined by [employer]. It has not been cleared or approved by the US Food and Drug Administration. This test was performed in a CLIA certified laboratory and is intended for clinical purposes. Performed By: [employer] [address] [place] [address] Fitness Coach: Fco Rosa MD, PhD CLIA Number: [id number] Amniotic fluid STRUCTURE OF AMNION / Unknown Non-blood Collection / Unknown 10/28/2023 1:49 PM ORE SAMPLER 10/28/2023 2:58 PM ORE SAMPLER [facility] - BLOOD ORDERABL ES [facility] [address] [place] [address], [facility] [phone] * GENETIC LAB RESULT - HIM SCAN (10/28/2023 12:00 AM ORE SAMPLER) 10/28/2023 Provider Outside LAB - [facility] SPECIAL DIAG ORDERABLES * US OB >14 Weeks Follow Up (10/20/2023 8:40 AM ORE SAMPLER) Anatomical Region Laterality Modality Abdomen/Pelvis Ultrasound Impressions 10/20/2023 9:46 AM ORE SAMPLER IMPRESSION: Single living intrauterine gestation of approximately 28 weeks 4 days gestation is estimated by ultrasound. ??Polyhydramnios. TRACEY FAUST MD SYSTEM ID: ??[id number] Narrative 10/20/2023 9:46 AM ORE SAMPLER ULTRASOUND OBSTETRIC FOLLOW UP >14 WEEKS October [...] ultrasound. Polyhydramnios. TRACEY FAUST MD SYSTEM ID: [id number] Simon Marcial MD IMG US ORDERABLE S * (ABNORMAL) UA with Microscopic reflex to Culture (10/19/2023 10:30 PM ORE SAMPLER) Color Urine Straw Colorless, Straw, Light Yellow, Yellow 10/19/2023 10:46 PM ORE SAMPLER LABORATORY Appearance Urine Clear Clear 10/19/19 10:46 PM ORE SAMPLER LABORATORY Glucose Urine 300(A) Negative mg/dL 10/19/2023 10:46 PM ORE SAMPLER LABORATORY Bilirubin Urine Negative Negative 10:46 PM ORE SAMPLER LABORATORY Ketones Urine Negative Negative mg/dL 10/19/2023 10:46 PM ORE SAMPLER LABORATORY Specific [place] Urine 1.011 1.003 - 1.035 10/19/2023 10:46 PM ORE SAMPLER LABORATORY Blood Urine Negative Negative 10/19/2023 10:46 PM ORE SAMPLER LABORATORY pH Urine 5.5 5.0 - 7.0 10/19/2023 10:46 PM ORE SAMPLER LABORATORY Protein Albumin Urine Negative Negative mg/dL 10/19/2023 10:46 PM ORE SAMPLER LABORATORY Urobilinogen Urine Normal Normal, 2.0 mg/dL 10/19/2023 10:46 PM ORE SAMPLER LABORATORY Nitrite Urine Negative Negative 10/19/2023 10:46 PM [facility]ORAT[facility] Leukocyte Esterase Urine Negative Negative 10/19/2023 10:46 PM [facility] Mucus Urine Present(A) None Seen /LPF 10/19/2023 10:46 PM [facility] RBC Urine 1 <=2 /HPF 10/19/2023 10:46 PM ORE SAMPLER RH LABORATORY WBC Urine 2 <=5 /HPF 10/19/2023 10:46 PM [facility]RE [facility]ORAT[facility] Squamous Epithelials Urine 2(H) <=1 /HPF 10/19/2023 10:46 PM [facility]RE [facility]ER LABORATORY Urine URINE SPECIMEN OBTAINED BY CLEAN CATCH PROCEDURE / Unknown Non-blood Collection / Unknown 10/19/2023 10:30 PM ORE SAMPLER 10/19/2023 10:39 PM ORE SAMPLER Narrative LABORATORY - 10/19/2023 10:46 PM ORE SAMPLER Urine Culture not indicated Idalmis Britt MD LAB - URINE ORDERABL ES LABORATORY [facility] [address] [facility] ([facility]st floor, no room number) [place] [address], [facility] [phone] * Urine Culture (10/19/2023 10:30 PM ORE SAMPLER) Culture 10,000-50,000 CFU/mL Mixture of Urogenital Daniella 10/21/2023 10:53 AM ORE SAMPLER UU IDD LABORATORY Urine URINE SPECIMEN OBTAINED BY CLEAN CATCH PROCEDURE / Unknown Non-blood Collection / Unknown 10/19/2023 10:30 PM ORE SAMPLER 10/19/2023 10:39 PM ORE SAMPLER Idalmis Britt MD LAB - MICRO GENERAL ORDERABLES [facility] IDD LABORATORY [facility] Inf. Diseases Diag. Lab [address] [facility], [address] [place] [address], [place] [phone] * Adult Type and Screen (10/19/2023 1:22 PM ORE SAMPLER) ABO/RH(D) B POS 10/19/2023 1:12 PM ORE SAMPLER RH BLOOD BANK Antibody Screen Negative Negative 10/19/2023 1:12 PM ORE SAMPLER RH BLOOD BANK SPECIMEN EXPIRATION DATE [id number] 10/19/2023 1:12 PM ORE SAMPLER RH BLOOD BANK Blood STRUCTURE OF RIGHT UPPER LIMB / Unknown Venipuncture / Unknown 10/19/2023 1:22 PM ORE SAMPLER 10/19/2023 1:27 PM ORE SAMPLER Lisa Matthew MD LAB - BLOOD BANK DUTCH T ORDER BLOOD BANK [address] [place] [address], [facility] * (ABNORMAL) TSH (10/11/2023 3:40 PM ORE SAMPLER) TSH 4.51(H) 0.30 - 4.20 uIU/mL 10/11/2023 10:16 PM ORE SAMPLER UU LABORATORY Blood BLOOD SPECIMEN / Unknown Venipuncture / Unknown 10/11/2023 3:40 PM ORE SAMPLER 10/11/2023 3:40 PM ORE SAMPLER Rocio Mccarthy MD LAB - BLOOD ORDER LORNA U LABORATORY [facility] [address] [facility], [address] [place] [address], [facility] [phone] * T4 free (10/11/2023 3:40 PM ORE SAMPLER) Free T4 1.05 0.90 - 1.70 ng/dL 10/11/2023 10:16 PM ORE SAMPLER UU LABORATORY Blood BLOOD SPECIMEN / Unknown Venipuncture / Unknown 10/11/2023 3:40 PM ORE SAMPLER 10/11/2023 3:40 PM ORE SAMPLER Rocio Mccarthy MD LAB - BLOOD ORDER LORNA U LABORATORY [facility] Lab [address] [facility], [address] [place] [address], [facility] [phone] * T3 Free (10/11/2023 3:40 PM ORE SAMPLER) T3 Free 2.7 2.0 - 4.4 pg/mL 10/11/2023 10:16 PM ORE SAMPLER UU LABORATORY Blood BLOOD SPECIMEN / Unknown Venipuncture / Unknown 10/11/2023 3:40 PM ORE SAMPLER 10/11/2023 3:40 PM ORE SAMPLER Rocio Mccarthy MD LAB - BLOOD ORDER LORNA U LABORATORY [facility] [address], [address] [place] [address], [facility] [phone] from Last 3 Months Advance Directives For more information, please contact: [phone] Latest Code Status on File Code Status [...] with patient/ legal decision maker Care Teams Men'S Swim Coach Relationship Specialty Start Date End Date Billie Guadarrama PCP - General 12/17/19 Rocio Mccarthy MD [address] [place] [address] Assigned Endocrinology Provider 04/24/22 Erica Tristan MD [address] [place] [address] Assigned OBGYN Provider 08/06/23
--- OUTSIDE RECORDS SUMMARY | 2023-11-24 07:30 | XMS_ITS | Encounter Summary ---
Author Name Unknown Organization [place] Address [address] [place] [address]. [place] [address] Care Team Providers Care Building Services Technician Name Role Phone Chiara Billie Primary Care Provider [phone] Rocio Mccarthy MD Unavailable [phone] Erica Tristan MD Unavailable [phone] Encounter Details Date Type Department Care Team (Latest Contact Info) Description 11/03/2023 Travel Social History Tobacco Use Types Packs/Day [...] Sex Assigned at Female 10/05/2020 9:54 PM DISTRIBUTOR SALES MANAGER Gender Identity Female 10/05/2020 9:54 PM DISTRIBUTOR SALES MANAGER Sexual Orientation Straight 10/05/2020 9: 54 PM DISTRIBUTOR SALES MANAGER documented as of this encounter Plan of Treatment Upcoming Encounters Date Type Department Care Team ( Contact Info) Description 12/12/2023 9:00 AM DISTRIBUTOR SALES MANAGER Office Visit [facility] Maternal Medicine [facility] [address] [place] [phone] Erica Tristan MD [address] [place] [address] 12/12/2023 9:30 AM DISTRIBUTOR SALES MANAGER Appointment [facility] Medicine [facility] [address] [place] [phone] Derrick Valenzuela MD [address] [place], [place] [address] 04/17/2024 9:00 AM CDT Virtual Visit [place] [address] [place] [address] [place] [phone] Rocio Mccarthy MD [address] [place] [address] documented as of this encounter Visit Diagnoses Not on filedocumented in this encounter Additional Health Concerns Assessment Noted Time PHQ-9 Depression Total Score: 11 023 10:04 AM CDT documented as of this encounter Care Teams Building Services Technician Relationship Specialty Start Date End Date Billie Guadarrama PCP - General 12/17/19 Rocio Mccarthy MD [address] [place] [address] Assigned Endocrinology Provider 04/24/22 Erica Tristan MD [address] [place] [address] Assigned OBGYN Provider 08/06/23 documented as of this encounter
--- OUTSIDE RECORDS SUMMARY | 2023-11-24 07:30 | XMS_ITS | Encounter Summary ---
Author Name Unknown Organization [place] Address [address] [facility] [address] Care Team Providers Care Facilities Operator Name Role Phone Chiara Billie Primary Care Provider [phone] Rocio Mccarthy MD Unavailable [phone] Erica Tristan MD Unavailable [phone] Reason for Visit * Reason Onset Date Comments Results 11/03/2023 Toxoplasmosis (a mniocentesis) Encounter Details Date Type Department Care Team (Late st Contact Info) Description 11/03/2023 Telephone [facility] [address] [place] [address] Radha Bone, [address] [place] [address] Results (Toxoplasmosis (amniocentesis)) Social History Tobacco Use Types Packs/Day Years [...] Sex Assigned at Female 10/05/2020 9:54 PM BAILING MACHINE OPERATOR Gender Identity Female 10/05/2020 9:54 PM BAILING MACHINE OPERATOR Sexual Orientation Straight 10/05/2020 9: 54 PM BAILING MACHINE OPERATOR documented as of this encounter Miscellaneous Notes * Telephone Encounter - Radha Bone GC - 11/03/2023 12:35 PM CST November 03, 2023 Called [facility] to discuss the results of the toxoplasmosis studies performed on amniotic fluid. Toxoplasmosis was NOT detected. Results from the chromosomal microarray are still pending. Radha Bone MS, [facility] Licensed Genetic Counselor [facility] Medicine [email or web address] [phone] ING MACHINE OPERATOR documented in this encounter Plan of Treatment Upcoming Encounters Date Type Department Care Team (Late st Contact Info) Description 12/12/2023 9:00 AM BAILING MACHINE OPERATOR Office Visit [facility] Medicine [facility] [address] [place] [address] Erica Tristan MD [address] [place] [address] 12/12/2023 9:30 AM BAILING MACHINE OPERATOR Appointment [facility] Medicine [facility] [address] [place] [phone] Derrick Valenzuela MD [address] [place] [address] 04/17/2024 9:00 AM CDT Virtual Visit [facility] [address] [place] [phone] Rocio Mccarthy MD [address] [place], [place] [address] documented as of this encounter Visit Diagnoses Not on filedocumented in this encounter Additional Health Concerns Assessment Noted Time PHQ-9 Depression Total Score: 11 023 10:04 AM CDT documented as of this encounter Care Teams Facilities Operator Relationship Specialty Start Date End Date Billie Guadarrama PCP - General 12/17/19 Rocio Mccarthy MD [address] [place], [place] [address] Assigned Endocrinology Provider 04/24/22 Erica Tristan MD [address] [place] [address] Assigned OBGYN Provider 08/06/23 documented as of this encounter
--- OUTSIDE RECORDS SUMMARY | 2023-11-24 07:30 | XMS_ITS | Encounter Summary ---
Author Name Unknown Organization [place] Address [address] [facility] [place] [address] Care Team Providers Care American Studies Professor Name Role Phone Selinsusan Billie Primary Care Provider [phone] Rocio Mccarthy MD Unavailable [phone] Erica Tristan MD Unavailable [phone] Reason for Visit * Reason Onset Date Comments Results 10/31/2023 CMV Encounter Details Date Type Department Care Team (Late st Contact Info) Description 10/31/2023 Telephone [facility] [address] [place] [address] Radha Bone, GC [address] [place] [address] Results (CMV) Social History Tobacco Use Types Packs/Day Years [...] Sex Assigned at Female 10/05/2020 9:54 PM GRAVES REGISTRATION SPECIALIST Gender Identity Female 10/05/2020 9:54 PM GRAVES REGISTRATION SPECIALIST Sexual Orientation Straight 10/05/2020 9: 54 PM GRAVES REGISTRATION SPECIALIST documented as of this encounter Miscellaneous Notes * Telephone Encounter - Radha Bone GC - 10/31/2023 1:25 PM CST October 31, 2023 I called [facility] to discuss the results of the cytomegalovirus studies on amniotic fluid. CMV was NOT detected. Results for toxoplasmosis and for the chromosomal microarray are still pending. Radha Bone MS, [facility] Licensed Genetic Counselor [facility] Maternal Medicine [phone] ES REGISTRATION SPECIALIST documented in this encounter Plan of Treatment Upcoming Encounters Date Type Department Care Team (Late st Contact Info) Description 12/12/2023 9:00 AM GRAVES REGISTRATION SPECIALIST Office Visit [facility] Maternal Medicine [facility] [address] [place] [phone] Erica Tristan MD [address] [place], [place] [address] 12/12/2023 9:30 AM GRAVES REGISTRATION SPECIALIST Appointment [facility] Maternal Medicine [facility] [address] [place] [phone] Derrick Valenzuela MD [address] [place], [place] [address] 04/17/2024 9:00 AM CDT Virtual Visit [facility] [address] [place] [address] [place] [phone] Rocio Mccarthy MD [address] [place], [place] [address] documented as of this encounter Visit Diagnoses Not on filedocumented in this encounter Additional Health Concerns Assessment Noted Time PHQ-9 Depression Total Score: 11 023 10:04 AM CDT documented as of this encounter Care Teams American Studies Professor Relationship Specialty Start Date End Date Billie Guadarrama PCP - General 12/17/19 Rocio Mccarthy MD [address] [place] [address] Assigned Endocrinology Provider 04/24/22 Erica Tristan MD [address] [place] [address] Assigned OBGYN Provider 08/06/23 documented as of this encounter
--- OUTSIDE RECORDS SUMMARY | 2023-11-24 07:30 | XMS_ITS | Encounter Summary ---
Author Name Unknown Organization [place] Address [address] [place] [address]. [place] [address] Care Team Providers Care Dumper [employer] Name Role Phone Chiara Billie Primary Care Provider [phone] Rocio Mccarthy MD Unavailable [phone] Erica Tristan MD Unavailable [phone] Encounter Details Date Type Department Care Team (Latest Contact Info) Description 11/04/2023 Travel Social History Tobacco Use Types Packs/Day [...] at Female 10/05/2020 9:54 PM DIRECTOR OF CURRICULUM AND INSTRUCTION Gender Identity Female 10/05/2020 9:54 PM DIRECTOR OF CURRICULUM AND INSTRUCTION Sexual Orientation Straight 10/05/2020 9: 54 PM DIRECTOR OF CURRICULUM AND INSTRUCTION documented as of this encounter Plan of Treatment Upcoming Encounters Date Type Department Care Team ( Contact Info) Description 12/12/2023 9:00 AM DIRECTOR OF CURRICULUM AND INSTRUCTION Office Visit [facility] Maternal Medicine [facility] [address] [place] [phone] Erica Tristan MD [address] [place] [address] 12/12/2023 9:30 AM DIRECTOR OF CURRICULUM AND INSTRUCTION Appointment [facility] Medicine [facility] [address] [place] [phone] Derrick Valenzuela MD [address] [place], [place] [address] 04/17/2024 9:00 AM CDT Virtual Visit [place] [address] [place] [address] [place] [phone] Rocio Mccarthy MD [address] [place] [address] documented as of this encounter Visit Diagnoses Not on filedocumented in this encounter Additional Health Concerns Assessment Noted Time PHQ-9 Depression Total Score: 11 023 10:04 AM CDT documented as of this encounter Care Teams Dumper [employer] Relationship Specialty Start Date End Date Billie Guadarrama PCP - General 12/17/19 Rocio Mccarthy MD [address] [place] [address] Assigned Endocrinology Provider 04/24/22 Erica Tristan MD [address] [place] [address] Assigned OBGYN Provider 08/06/23 documented as of this encounter
--- OUTSIDE RECORDS SUMMARY | 2023-11-24 07:30 | XMS_ITS | Encounter Summary ---
Author Name Unknown Organization [place] Address [facility] [place] [address] Care Team Providers Care Safety Attendant Name Role Phone Billie Guadarrama Primary Care Provider Rocio Mccarthy MD Unavailable [phone] Erica Tristan MD Unavailable [phone] Reason for Visit * Reason Comments Ultrasound NST/RL2/UAR-FGR * Consultation (Routine) - Pending Review Specialty Diagnoses / Procedures Referred By Contac t Referred To Contact Diagnoses growth restriction antepartum Erica Tristan MD [address] [facility] [address] [place] [address] Referral ID Status Reason Start Date Expiration Date V isits Requested Visits Authorized [id number] Pending Review 10/28/2023 10/27/2024 5 5 Encounter Details Date Type Department Care Team (Late st Contact Info) Description 11/04/2023 3:00 PM SUBWAY TRAIN DRIVER Office Visit [facility] [place] [address] [facility] [address] [place] [address] Erica Tristan MD [address] [place] [address] Chelsie Gallagher MD [address] [place] [address] growth restriction antepartum (Primary Dx) Social History Tobacco Use [...] Sex Assigned at Female 10/05/2020 9:54 PM SUBWAY TRAIN DRIVER Gender Identity Female 10/05/2020 9:54 PM SUBWAY TRAIN DRIVER Sexual Orientation Straight 10/05/2020 9: 54 PM SUBWAY TRAIN DRIVER documented as of this encounter Last Filed Vital Signs Vital Sign Reading Time Taken Comments Blood Pressure 114/73 11/04/2023 3:10 PM SUBWAY TRAIN DRIVER Pulse 109 11/04/2023 3:10 PM SUBWAY TRAIN DRIVER Temperature - - Respiratory Rate - - Oxygen Saturation 98% 11/04/2023 3:10 PM SUBWAY TRAIN DRIVER Inhaled Oxygen Concentration - - Weight - - Height - - Body Mass Index - - documented in this encounter Progress Notes * Chelsie Gallagher MD - 11/04/2023 3:00 PM CST Please see Imaging tab under Chart Review for details of today's visit. Chelsie Gallagher AY TRAIN DRIVER documented in this encounter Nursing Notes * Little Cole, RN - 11/04/2023 3:00 PM CST Patient presents to [facility] for NST/RL2/UAR at 32w3d due to FGR. Positive movement. Denies LOF, vaginal bleeding or cramping/contractions. SBAR given to [facility] , see their note in Epic. AY TRAIN DRIVER documented in this encounter Plan of Treatment Upcoming Encounters Date Type Department Care Team (Late st Contact Info) Description 12/12/2023 9:00 AM SUBWAY TRAIN DRIVER Office Visit [facility] [address] [place] [address] Erica Tristan MD [address] [place] [address] 12/12/2023 9:30 AM SUBWAY TRAIN DRIVER Appointment [place] [address] [place] [phone] Derrick Valenzuela MD [address] [place], [place] [address] 04/17/2024 9:00 AM CDT Virtual Visit [place] [address] [place] [address] [place] [phone] Rocio Mccarthy MD [address] [place] [address] documented as of this encounter Visit Diagnoses Diagnosis growth restriction antepartum- Primary documented in this encounter Additional Health Concerns Assessment Noted Time PHQ-9 Depression Total Score: 11 023 10:04 AM CDT documented as of this encounter Care Teams Safety Attendant Relationship Specialty Start Date End Date Billie Guadarrama PCP - General 12/17/19 Rocio Mccarthy MD [address] [place] [address] Assigned Endocrinology Provider 04/24/22 Erica Tristan MD [address] [place] [address] Assigned OBGYN Provider 08/06/23 documented as of this encounter
--- OUTSIDE RECORDS SUMMARY | 2023-11-24 07:30 | XMS_ITS | Encounter Summary ---
Author Name Unknown Organization [place] Address [address] [place] [address] Care Team Providers Care Block Handler Name Role Phone Chiara Billie Primary Care Provider Rocio Mccarthy MD Unavailable Erica Tristan MD Unavailable [phone] Reason for Referral * Diagnostic Imaging MRI (Routine) - Closed Specialty Diagnoses / Procedures Referred By Contac t Referred To Contact Radiology. Diagnoses complicated by cerebral ventriculomegaly, single or unspecified fetus Procedures Erica Ocasio MD [address] [place] [address] Referral ID Status Reason Start Date Expiration Date Visits Re quested Visits Authorized [id number] Closed 10/28/2023 10/27/2024 1 1 TAL SLICER Reason for Visit * Diagnostic Imaging MRI (Routine) - Closed Specialty Diagnoses / Procedures Referred By Contac t Referred To Contact Radiology. Diagnoses complicated by cerebral ventriculomegaly, single or unspecified fetus Procedures Erica Ocasio MD [address] [place] [address] Referral ID Status Reason Start Date Expiration Date Visits Re quested Visits Authorized [id number] Closed 10/28/2023 10/27/2024 1 1 Encounter Details Date Type Department Care Team (Latest Contact Info) Description 11/11/2023 8:29 AM CRYSTAL SLICER - 11/11/2023 10:49 AM CRYSTAL SLICER Hospital Encounter [facility] Imaging [address] [place] [address] Olivia Younger MD [address] [facility] [address] [place] [address] complicated by cerebral ventriculomegaly, single or unspecified fetus Discharge Disposition: Home or Self Care Social [...] Sex Assigned at Female 10/05/2020 9:54 PM CRYSTAL SLICER Gender Identity Female 10/05/2020 9:54 PM CRYSTAL SLICER Sexual Orientation Straight 10/05/2020 9: 54 PM CRYSTAL SLICER documented as of this encounter Medications at [...] st Contact Info) Description 12/12/2023 9:00 AM CRYSTAL SLICER Office Visit [facility] Maternal Medicine [facility] [address] [facility] [address] [place] [phone] Erica Tristan MD [address] [place], [place] [address] 12/12/2023 9:30 AM CRYSTAL SLICER Appointment [facility] Maternal Medicine [facility] [address] [facility] [address] [place] [phone] Derrick Valenzuela MD [address] [place], [place] [address] 04/17/2024 9:00 AM CDT Virtual Visit [facility] [address] [facility] [address] [place] [phone] Rocio Mccarthy MD [address] [place], [place] [address] documented as of this encounter Procedures Procedure Name Priority Date/Time Associated Diagnosis Comments MR Routine 11/11/2023 10:10 AM CRYSTAL SLICER complicated by cerebral ventriculomegaly, single or unspecified fetus documented in this encounter Results * MR (11/11/2023 10:10 AM CRYSTAL SLICER) Anatomical Region Laterality Modality Abdomen/Pelvis, SUBRAD MR BODY, UMP MR BODY Magnetic Resonance Impressions 11/11/2023 10:28 AM CRYSTAL SLICER IMPRESSION: 1. Mild lateral ventricular dilatation measuring 11 mm on the right and 12 mm on the left. No structural brain abnormality is identified. 2. Cephalic lie. Cervix appears completely effaced and minimally dilated. Cervical effacement was discussed with Dr. Tristan at the time of the examination. MAMI BOBO MD Narrative 11/11/2023 10:28 AM CRYSTAL SLICER EXAM: MRI HISTORY: Ventriculomegaly PROCEDURE COMMENT: MRI, [...] positional rather than fixed. Procedure Note Mami Bobo MD - 11/11/2023 EXAM: MRI HISTORY: Ventriculomegaly [...] at the time of the examination. MAMI BOBO MD Erica Tristan MD IMG MRI ORDERABLES documented in this encounter Visit Diagnoses Diagnosis complicated by cerebral ventriculomegaly, single or unspecified fetus documented in this encounter Additional Health Concerns Assessment Noted Time PHQ-9 Depression Total Score: 11 023 10:04 AM CDT documented as of this encounter Care Teams Block Handler Relationship Specialty Start Date End Date Billie Guadarrama PCP - General 12/17/19 Rocio Mccarthy MD [address] [place], [place] [address] Assigned Endocrinology Provider 04/24/22 Erica Tristan MD [address] [place] [address] Assigned OBGYN Provider 08/06/23 documented as of this encounter
--- OUTSIDE RECORDS SUMMARY | 2023-11-24 07:30 | XMS_ITS | Encounter Summary ---
Author Name Unknown Organization [facility] Address [address] [facility] [place] [address] Care Team Providers Care Set Up Technician Name Role Phone Chiara Billie Primary Care Provider Rocio Mccarthy MD Unavailable [phone] Erica Tristan MD Unavailable [phone] Encounter Details Date Type Department Care Team (Late st Contact Info) Description 10/28/2023 [facility] Medical Advice [facility] [address] [place], [place] [address] Lisa Larose, RN Social History Tobacco Use Types Packs/Day [...] Sex Assigned at Female 10/05/2020 9:54 PM MEDIA AID Gender Identity Female 10/05/2020 9:54 PM MEDIA AID Sexual Orientation Straight 10/05/2020 9: 54 PM MEDIA AID documented as of this encounter Plan of Treatment Upcoming Encounters Date Type Department Care Team (Late st Contact Info) Description 12/12/2023 9:00 AM MEDIA AID Office Visit [facility] [address] [facility] [address] [place] [phone] Erica Tristan MD [address] [place] [address] 12/12/2023 9:30 AM MEDIA AID Appointment [place] [address] [facility] [address] [place] [phone] Derrick Valenzuela MD [address] [place] [address] 04/17/2024 9:00 AM CDT Virtual Visit [place] [address] [place] [address] Rocio Mccarthy MD [address] [place], [place] [address] documented as of this encounter Visit Diagnoses Not on filedocumented in this encounter Additional Health Concerns Assessment Noted Time PHQ-9 Depression Total Score: 11 023 10:04 AM CDT documented as of this encounter Care Teams Set Up Technician Relationship Specialty Start Date End Date Billie Guadarrama PCP - General 12/17/19 Rocio Mccarthy MD [address] [place] [address] Assigned Endocrinology Provider 04/24/22 Erica Tristan MD [address] [place] [address] Assigned OBGYN Provider 08/06/23 documented as of this encounter
--- OUTSIDE RECORDS SUMMARY | 2023-11-24 07:30 | XMS_ITS | Encounter Summary ---
Author Name Unknown Organization [facility] Address [address] [facility] [place] [address] Care Team Providers Care Education Manager Name Role Phone Selinsusan Billie Primary Care Provider [phone] Rocio Mccarthy MD Unavailable [phone] Erica Tristan MD Unavailable [phone] Encounter Details Date Type Department Care Team (Late st Contact Info) Description 10/25/2023 Medical Correspondence [facility] Info Mgmt [facility] [address] [place] [address] Scan, Non-Provider Social History Tobacco Use Types Packs/Day Years [...] Sex Assigned at Female 10/05/2020 9:54 PM GEODETIC TECHNICIAN Gender Identity Female 10/05/2020 9:54 PM GEODETIC TECHNICIAN Sexual Orientation Straight 10/05/2020 9: 54 PM GEODETIC TECHNICIAN documented as of this encounter Plan of Treatment Upcoming Encounters Date Type Department Care Team (Late st Contact Info) Description 12/12/2023 9:00 AM GEODETIC TECHNICIAN Office Visit [facility] [address] [place] [address] Erica Tristan MD [address] [place] [address] 12/12/2023 9:30 AM GEODETIC TECHNICIAN Appointment [place] [address] [facility] [address] [place] [phone] Derrick Valenzuela MD [address] [place] [address] 04/17/2024 9:00 AM CDT Virtual Visit [facility] [address] [place] [address] Rocio Mccarthy MD [address] [place], [place] [id number] documented as of this encounter Visit Diagnoses Not on filedocumented in this encounter Additional Health Concerns Assessment Noted Time PHQ-9 Depression Total Score: 11 023 10:04 AM CDT documented as of this encounter Care Teams Education Manager Relationship Specialty Start Date End Date Billie Guadarrama PCP - General 12/17/19 Rocio Mccarthy MD [address] [place] [address] Assigned Endocrinology Provider 04/24/22 Erica Tristan MD [address] [place] [address] Assigned OBGYN Provider 08/06/23 documented as of this encounter
--- OUTSIDE RECORDS SUMMARY | 2023-11-24 07:30 | XMS_ITS | Encounter Summary ---
Author Name Unknown Organization [facility] Address [address] [place] [address]. [place] [address] Care Team Providers Care Certified Orthoptist Name Role Phone Selinsusan Billie Primary Care Provider [phone] Rocio Mccarthy MD Unavailable [phone] Erica Tristan MD Unavailable [phone] Reason for Referral * Diagnostic Imaging Ultrasound (Routine) - Pending Review Specialty Diagnoses / Procedures Referred By Emily douglas Referred To Contact Radiology. Diagnoses related condition, antepartum Procedures [facility] Comprehensive Single F/U Rosette Devlin MD [facility] [address] [place] [address] Fax: Referral ID Status Reason Start Date Expiration Date V isits Requested Visits Authorized [id number] Pending Review 10/25/2023 10/24/2024 1 1 IC POLICY PROFESSOR Reason for Visit * Diagnostic Imaging Ultrasound (Routine) - Pending Review Specialty Diagnoses / Procedures Referred By Emily douglas Referred To Contact Radiology. Diagnoses related condition, antepartum Procedures [facility] Comprehensive Single F/U Rosette Devlin MD [facility] [address] [place] [address] Fax: Referral ID Status Reason Start Date Expiration Date V isits Requested Visits Authorized [id number] Pending Review 10/25/2023 10/24/2024 1 1 Encounter Details Date Type Department Care Team (Latest Contact Info) Description 10/28/2023 11:30 AM PUBLIC POLICY PROFESSOR - 10/28/2023 11:59 PM PUBLIC POLICY PROFESSOR Hospital Encounter [facility] [place] [address] [place] [phone] Erica Tristan MD [address] [place] [address] related condition, antepartum Discharge Disposition: Home or [...] Sex Assigned at Female 10/05/2020 9:54 PM PUBLIC POLICY PROFESSOR Gender Identity Female 10/05/2020 9:54 PM PUBLIC POLICY PROFESSOR Sexual Orientation Straight 10/05/2020 9: 54 PM PUBLIC POLICY PROFESSOR documented as of this encounter Medications at [...] st Contact Info) Description 12/12/2023 9:00 AM PUBLIC POLICY PROFESSOR Office Visit [facility] Maternal Medicine [facility] [address] [place] [phone] Erica Tristan MD [address] [place], [place] [id number] 12/12/2023 9:30 AM PUBLIC POLICY PROFESSOR Appointment [facility] Maternal Medicine [facility] [address] [place] [phone] Derrick Valenzuela MD [address] [place], [place] [address] 04/17/2024 9:00 AM CDT Virtual Visit [facility] [address] [place] [phone] Rocio Mccarthy MD [address] [place], [place] [address] documented as of this encounter Procedures Procedure Name Priority Date/Time Associated Diagnosis Comments [facility] COMPREHENSIVE SINGLE F/U Routine 10/28/2023 11:59 AM PUBLIC POLICY PROFESSOR related condition, antepartum documented in this encounter Results * [facility] Comprehensive Single F/U (10/28/2023 11:59 AM PUBLIC POLICY PROFESSOR) Anatomical Region Laterality Modality Ultrasound 10/28/2023 11:3 3 AM PUBLIC POLICY PROFESSOR Impressions 10/28/2023 5:12 PM PUBLIC POLICY PROFESSOR IMPRESSION ----- 1. Sebastian intrauterine at 31w 3d gestational age. 2. There is new bilateral ventriculomegaly with the left lateral ventricle measuring 10.2 and the right lateral ventricle measuring 10.9mm. The choroids are dangling. The remaining intracranial anatomy appears normal. 3. No other anomalies commonly detected by ultrasound were evident in the limited anatomic survey as described above, anatomy limited by gestational age and lie including the previously noted suboptimally visualized anatomy which was completed today. 4. Growth parameters and estimated weight were consistent with a new diagnosis of growth restriction with an EFW at the 8th%. The HC is <1st% measuring 2 standard deviations below the mean which is not consistent with a diagnosis of microcephaly. 5. The amniotic fluid volume appeared normal. 6. The umbilical artery dopplers were within normal limits. 7. The NST was reactive and reassuring. 8. Uncomplicated amniocentesis as documented above. Narrative 10/28/2023 5:12 PM PUBLIC POLICY PROFESSOR ?Comp Follow Up ----- Pat. Name: TAYLOR GARCIA ? Study Date: ??10/28/2023 11:33am Pat. NO: ??[id number] ?Referring ??: ROSETTE DEVLIN Site: ??[facility] ? Customer Supply Chain Analyst: Marie Ford RDMS : ??1995 ?Age: ?? 28 ----- INDICATION ----- growth restriction (FGR) and Polyhydramnios on outside ultrasound. METHOD ----- Transabdominal ultrasound examination. View: Sufficient ----- Sebastian . Number of fetuses: 1 DATING ----- ? Date ?Details ?Gest. age ?MILES LMP ?03/16/2023 ? 32 w + 2 d ? 12/21/2023 Prior assessment ? 05/12/2023 ?GA: 7 w + 2 d ? 31 w + 3 d ? 12/27/2023 U/S ? 10/28/2023 ? based upon AC, BPD, Femur, HC ?29 w + 5 d ? 01/08/2024 Assigned dating ?Dating performed on 07/26/2023, based on the prior assessment (on 05/12/2023) ?31 w + 3 d ? 12/27/2023 GENERAL EVALUATION ----- Cardiac activity present. FHR 148 bpm. movements present. Presentation cephalic. Placenta Posterior, No Previa, > 2 cm from internal os. Umbilical cord 3 vessel cord. Amniotic fluid Amount of AF: normal. MVP 7.7 cm. BIOMETRY ----- Main Biometry: BPD ?71.7 ?mm ? 28w 5d ?Hadlock OFD ?94.7 ?mm ? 27w 6d ?Nicolaides HC ?268.0 ?mm ?29w 1d ?Hadlock Cerebellum tr ?33.9 ? mm ?29w 3d ?Nicolaides AC ?253.1 ?mm ?29w 4d ?6% ?Hadlock Femur ?60.2 ? mm ?31w 2d ?Hadlock Weight Calculation: EFW ? 1,494 ?g ? 8% ? Hadlock EFW (lb,oz) ? 3 lb 5 ?oz EFW by ?Hadlock ([id number]) Head / Face / Neck Biometry: Entry Level Finance ? 11.0 ?mm CM ?4.6 ? mm ANATOMY ----- The following structures appear abnormal: Head / Neck ? Right lateral ventricle: ventriculomegaly. Left lateral ventricle: ventriculomegaly. The following structures appear normal: Head / Neck ? Cranium. Head size. Head shape. Midline falx. Cavum septi pellucidi. Cerebellum. Cisterna magna. Thalami. Vermis. Face ? Profile. Nose. Heart / Thorax ?4-chamber view. RVOT view. LVOT view. 3-vessel view. 0-zncasx-herruiy view. ? Diaphragm. Abdomen ? Stomach. Kidneys. Bladder. Spine ?Cervical spine. Thoracic spine. Lumbar spine. Sacral spine. The following structures were documented previously: Face ? Lips. DOPPLER ----- Umbilical Artery: normal PI ?1.02 ?69% ?Radha HR ?143 ? bpm MATERNAL STRUCTURES ----- Cervix ?Suboptimal Right Ovary ?Not examined Left Ovary ?Not examined NON STRESS TEST ----- NST interpretation: reactive. Test duration 20 min. Baseline FHR 145 bpm. Baseline variability: moderate. Accelerations: present. Decelerations: absent. Uterine activity: absent INVASIVE PROCEDURES ----- Amniocentesis ? Instrument: TA 22G needle. Insertion site: upper right quadrant. Entries uterus: 1 ? Sample: obtained. Sample amount 40 ml. Sample quality: clear yellow ? Sample identification confirmed Evaluation ?Post cardiac activity: present, normal. FHR post 150 bpm RECOMMENDATION ----- Thank-you for referring your patient for ultrasound assessment. I discussed the findings on today's ultrasound with the patient. The findings on today's ultrasound are consistent with growth restriction (FGR). We reviewed that we consider a to be affected by FGR when the overall EFW is <10th% or if the abdominal circumference (AC) is < 10th% as they have been found to be equally predictive of SGA. We discussed the potential etiologies of FGR including incorrect dating, constitutional, infectious etiologies (specifically CMV), genetic and structural abnormalities as well as placental and umbilical cord abnormalities. Her dating was reviewed (7 week ultrasound). There was a hypoplastic nasal bone on her anatomy ultrasound but she reports low risk cell free DNA for genetic screening however the report is not available for our review. She is otherwise healthy and has no significant medical problems. There is no family history of congential anomalies or genetic syndromes. She denies experiencing any viral symptoms this . Her blood pressure today was 112/75mmHg. We discussed the new finding of FGR in the context of the new finding of bilateral ventriculomegaly. We discussed that ventriculomegaly is defined as dilation of the cerebral ventricles and is a relatively common finding on ultrasound. We reviewed that this can be seen in isolation or associated with other brain abnormalities. This finding can be associated with obstruction to CSF flow, maldevelopment of the ventricle in anomalies such as agenesis of the corpus callosum or as part of a destructive process. It can also be seen with infections such as CMV and Toxoplasmosis as well as with genetic abnormalities. We discussed that in most cases of mild ventriculomegaly when seen in isolation we often see the ventriculomegaly resolve over the course of or postnatally. We discussed that the biggest potential impact of ventriculomegaly has to do with neurodevelopmental outcomes postbirth. We discussed the range of neurodevelopmental outcomes for individuals with ventriculomegaly, specifically that those with isolated mild ventriculomegaly (10-12mm) have excellent outcomes and normal neurodevelopment in > 90% of cases. We discussed that when ventriculomegaly is noted on ultrasound a thorough evaluation should be performed. We discussed that this evaluation includes a detailed sonographic evaluation of anatomy (performed today), MRI, amniocentesis for karyotype and chromosomal microarray analysis, and a workup for infection (CMV/Toxoplasmosis). Alternatives available for detecting anomalies, aneuploidy and predicting developmental outcome for this were thoroughly discussed. The risks, benefits and limitations of cell free DNA screening, ultrasound and genetic amniocentesis were also thoroughly reviewed with the patient. We discussed the availability of amniocentesis for the precise diagnosis of chromosomal abnormalities including the associated procedure-related risk of loss of 1/400. After our discussion given today's findings she opted to proceed with amniocentesis. The results will be communicated to her as soon as they are available. Finally, we discussed that ongoing ultrasound assessment should be performed to evaluate for progression of the ventricular dilation in addition to monitoring due to the increased risk for stillbirth in the setting of FGR with the ultimate goal of management resting on balancing the risk of stillbirth with the risks of prematurity. The recommended surveillance and management of pregnancies complicated by FGR includes serial assessment of growth (every 3 weeks) in addition to weekly UA Dopplers and surveillance. Timing of delivery will depend on Doppler findings, amniotic fluid, monitoring, and interval growth; we will make specific recommendations as the progresses. We reviewed kick counts and calling guidelines. We would recommend the following ongoing surveillance with our office: - MRI (scheduled today) -Weekly umbilical artery dopplers and surveillance -Repeat assessment of growth and anatomy in 3 weeks Return to primary provider for continued care. If you have questions regarding today's evaluation or if we can be of further service, please contact the [facility]. anomalies may be present but not detected I spent a total of 65 minutes on the date of this encounter including preparing to see the patient (reviewing medical records/tests), counseling and discussing the plan of care, documenting the visit in the electronic medical record, and communicating with other health home visit field care manager and/or care coordination. Procedure Note Erica Tristan MD - 10/28/2023 Comp Follow Up ----- Pat. Name: TAYLOR GARCIA Study Date: 10/28/2023 11:33am Pat. NO: [id number] Referring MD: ROSETTE DEVLIN Site: [facility] Customer Supply Chain Analyst: Marie Ford RDMS : 1995 Age: 28 ----- INDICATION ----- growth restriction (FGR) and Polyhydramnios on outside ultrasound. METHOD ----- Transabdominal ultrasound examination. View: Sufficient ----- Sebastian . Number of fetuses: 1 DATING ----- DateDetailsGest. age MILES LMP w + 2 d 12/21/2023 Prior assessment 05/12/2023 GA: 7 w +2 d31 w + 3 d 12/27/2023 U/S 10/28/2023ased upon AC, BPD, Femur, HC29 w + 5 d 01/08/2024 Assigned dating Dating performed on 07/26/2023, based onthe prior assessment (on 05/12/2023) 31 w + 3 d3 GENERAL EVALUATION ----- Cardiac activity present. FHR 148 bpm. movements present. Presentation cephalic. Placenta Posterior, No Previa, > 2 cm from internal os. Umbilical cord 3 vessel cord. Amniotic fluid Amount of AF: normal. MVP 7.7 cm. BIOMETRY ----- Main Biometry: BPD 71.7 mm28w 5d Hadlock OFD 94.7 mm27w 6d Nicolaides HC 268.0 mm29w 1d Hadlock Cerebellum tr 33.9 mm29w 3d Nicolaides AC 253.1 mm29w 4d 6% Hadlock Femur 60.2 mm31w 2d Hadlock Weight Calculation: EFW 1,494 g8% Hadlock EFW (lb,oz) 3 lb 5 oz EFW by Hadlock ([id number]) Head / Face / Neck Biometry: Entry Level Finance 11.0 mm CM 4.6 mm ANATOMY ----- The following structures appear abnormal: Head / Neck Right lateral ventricle:ventriculomegaly. Left lateral ventricle: ventriculomegaly. The following structures appear normal: Head / Neck Cranium. Head size. Head shape.Midline falx. Cavum septi pellucidi. Cerebellum. Cisterna magna. Thalami.Vermis. Face Profile. Nose. Heart / Thorax 4-chamber view. RVOT view. LVOT view.3-vessel view. 3-sidvky-owpsfnv view. Diaphragm. Abdomen Stomach. Kidneys. Bladder. Spine Cervical spine. Thoracic spine.Lumbar spine. Sacral spine. The following structures were documented previously: Face Lips. DOPPLER ----- Umbilical Artery: normal PI 1.0269% Radha HR 143 bpm MATERNAL STRUCTURES ----- Cervix Suboptimal Right Ovary Not examined Left Ovary Not examined NON STRESS TEST ----- NST interpretation: reactive. Test duration 20 min. Baseline FHR 145 bpm.Baseline variability: moderate. Accelerations: present. Decelerations:absent. Uterine activity: absent INVASIVE PROCEDURES ----- Amniocentesis Instrument: TA 22G needle. Insertionsite: upper right quadrant. Entries uterus: 1 Sample: obtained. Sample awwbph90 ml. Sample quality: clear yellow Sample identificationconfirmed Evaluation Post cardiac activity: present,normal. FHR post 150 bpm RECOMMENDATION ----- Thank-you for referring your patient for ultrasound assessment. I discussed the findings on today's ultrasound with the patient. Thefindings on today's ultrasound are consistent with growthrestriction (FGR). We reviewed that we consider a to be affected by FGR when the overall EFW is <10th%or if the abdominal circumference (AC) is < 10th% as they have been foundto be equally predictive of SGA. We discussed the potential etiologies of FGR includingincorrect dating, constitutional, infectious etiologies (specificallyCMV), genetic and structural abnormalities as well as placental and umbilical cordabnormalities. Her dating was reviewed (7 week ultrasound). There was a hypoplastic nasalbone on her anatomy ultrasound but she reports low risk cell free fetalDNA for genetic screening however the report is not available for our review. She isotherwise healthy and has no significant medical problems. There is nofamily history of congential anomalies or genetic syndromes. She denies experiencing any viral symptomsthis . Her blood pressure today was 112/75mmHg. We discussed the new finding of FGR in the context of the new finding ofbilateral ventriculomegaly. We discussed that ventriculomegaly is definedas dilation of the cerebral ventricles and is a relatively common finding on prenatalultrasound. We reviewed that this can be seen in isolation or associatedwith other brain abnormalities. This finding can be associated with obstruction to CSFflow, maldevelopment of the ventricle in anomalies such as agenesis of thecorpus callosum or as part of a destructive process. It can also be seen with infectionssuch as CMV and Toxoplasmosis as well as with genetic abnormalities. Wediscussed that in most cases of mild ventriculomegaly when seen in isolation we often see theventriculomegaly resolve over the course of or postnatally. Wediscussed that the biggest potential impact of ventriculomegaly has to do with neurodevelopmentaloutcomes postbirth. We discussed the range of neurodevelopmental outcomesfor individuals with ventriculomegaly, specifically that those with isolated mildventriculomegaly (10-12mm) have excellent outcomes and normalneurodevelopment in > 90% of cases. We discussed that when ventriculomegaly is noted on ultrasound a thoroughevaluation should be performed. We discussed that this evaluation includesa detailed sonographic evaluation of anatomy (performed today), MRI,amniocentesis for karyotype and chromosomal microarray analysis, and aworkup for infection (CMV/Toxoplasmosis). Alternatives available for detecting anomalies,aneuploidy and predicting developmental outcome for this werethoroughly discussed. The risks, benefits and limitations of cell free DNA screening, ultrasoundand genetic amniocentesis were also thoroughly reviewed with the patient.We discussed the availability of amniocentesis for the precise diagnosis of chromosomalabnormalities including the associated procedure-related risk of pregnancyloss of 1/400. After our discussion given today's findings she opted to proceed with amniocentesis.The results will be communicated to her as soon as they are available. Finally, we discussed that ongoing ultrasound assessment should beperformed to evaluate for progression of the ventricular dilation inaddition to monitoring due to the increased risk for stillbirth in the setting of FGR with the ultimate goalof management resting on balancing the risk of stillbirth with the risksof prematurity. The recommended surveillance and management of pregnancies complicated by FGRincludes serial assessment of growth (every 3 weeks) in addition toweekly UA Dopplers and surveillance. Timing of delivery will depend onDoppler findings, amniotic fluid, monitoring, and interval fetalgrowth; we will make specific recommendations as the progresses. We reviewed kick countsand calling guidelines. We would recommend the following ongoing surveillance with our office: - MRI (scheduled today) -Weekly umbilical artery dopplers and surveillance -Repeat assessment of growth and anatomy in 3 weeks Return to primary provider for continued care. If you have questions regarding today's evaluation or if we can be offurther service, please contact the [facility]. anomalies may be present but not detected I spent a total of 65 minutes on the date of this encounter includingpreparing to see the patient (reviewing medical records/tests), counselingand discussing the plan of care, documenting the visit in the electronic medical record, andcommunicating with other health home visit field care manager and/or carecoordination. IMPRESSION ----- 1. Sebastian intrauterine at 31w 3d gestational age. 2. There is new bilateral ventriculomegaly with the left lateral ventriclemeasuring 10.2 and the right lateral ventricle measuring 10.9mm. Thechoroids are dangling. The remaining intracranial anatomy appears normal. 3. No other anomalies commonly detected by ultrasound were evident in thelimited anatomic survey as described above, anatomy limited bygestational age and lie including the previously noted suboptimally visualized anatomy whichwas completed today. 4. Growth parameters and estimated weight were consistent with a newdiagnosis of growth restriction with an EFW at the 8th%. The HC is<1st% measuring 2 standard deviations below the mean which is not consistent with adiagnosis of microcephaly. 5. The amniotic fluid volume appeared normal. 6. The umbilical artery dopplers were within normal limits. 7. The NST was reactive and reassuring. 8. Uncomplicated amniocentesis as documented above. Rosette Devlin MD [facility] US ORDERABLE S documented in this encounter Visit Diagnoses Diagnosis related condition, antepartum documented in this encounter Additional Health Concerns Assessment Noted Time PHQ-9 Depression Total Score: 11 023 10:04 AM CDT documented as of this encounter Care Teams Certified Orthoptist Relationship Specialty Start Date End Date Billie Guadarrama PCP - General 12/17/19 Rocio Mccarthy MD [address] [place], [place] [address] Assigned Endocrinology Provider 04/24/22 Erica Tristan MD [address] [place], [place] [address] Assigned OBGYN Provider 08/06/23 documented as of this encounter
--- OUTSIDE RECORDS SUMMARY | 2023-11-24 07:30 | XMS_ITS | Encounter Summary ---
Author Name Unknown Organization [facility] Address [address] [place] [address]. [place] [address] Care Team Providers Care Clinical Documentation Improvement Specialist Name Role Phone Billie Guadarrama Primary Care Provider Rocio Mccarthy MD Unavailable [phone] Erica Tristan MD Unavailable [phone] Reason for Referral * Diagnostic Imaging MRI (Routine) - Closed Specialty Diagnoses / Procedures Referred By Contac t Referred To Contact Radiology. Diagnoses complicated by cerebral ventriculomegaly, single or unspecified fetus Procedures MR Erica Tristan MD [address] [place] [address] Referral ID Status Reason Start Date Expiration Date Visits Re quested Visits Authorized [id number] Closed 10/28/2023 10/27/2024 1 1 TICAL WORKER * Consultation (Routine) - Pending Review Specialty Diagnoses / Procedures Referred By Contac t Referred To Contact Diagnoses growth restriction antepartum Erica Tristan MD [address] [place] [address] Referral ID Status Reason Start Date Expiration Date V isits Requested Visits Authorized [id number] Pending Review 10/28/2023 10/27/2024 5 5 Question Answer CTG/NST Yes TICAL WORKER * Diagnostic Imaging Ultrasound (Routine) - Pending Review Specialty Diagnoses / Procedures Referred By Contac t Referred To Contact Radiology. Diagnoses growth restriction antepartum Procedures Maternal US Comprehensive Single F/U Erica Tristan MD [address] [place] [address] Referral ID Status Reason Start Date Expiration Date V isits Requested Visits Authorized [id number] Pending Review 10/28/2023 10/27/2024 1 1 TICAL WORKER * Diagnostic Imaging Ultrasound (Routine) - Pending Review Specialty Diagnoses / Procedures Referred By Contac t Referred To Contact Radiology. Diagnoses growth restriction antepartum Procedures Maternal US OB Limited Single/Multiple Erica Tristan MD [address] [place] [address] Referral ID Status Reason Start Date Expiration Date V isits Requested Visits Authorized [id number] Pending Review 10/28/2023 10/27/2024 1 1 TICAL WORKER * Diagnostic Imaging Ultrasound (Routine) - Pending Review Specialty Diagnoses / Procedures Referred By Contac t Referred To Contact Radiology. Diagnoses growth restriction antepartum Procedures Maternal US OB Limited Single/Multiple Erica Tristan MD [address] [place] [address] Referral ID Status Reason Start Date Expiration Date V isits Requested Visits Authorized [id number] Pending Review 10/28/2023 10/27/2024 1 1 TICAL WORKER Reason for Visit * Reason Comments Ultrasound RL2-FGR on outside U S Encounter Details Date Type Department Care Team (Late st Contact Info) Description 10/28/2023 12:15 PM POLITICAL WORKER Office Visit [facility] [place] [address] [place] [address] Erica Tristan MD [address] [place], [place] [id number] growth restriction antepartum (Primary Dx); complicated by cerebral ventriculomegaly, single or unspecified fetus; Abnormal ultrasound Social History Tobacco Use Types Packs/Day Years [...] Sex Assigned at Female 10/05/2020 9:54 PM POLITICAL WORKER Gender Identity Female 10/05/2020 9:54 PM POLITICAL WORKER Sexual Orientation Straight 10/05/2020 9: 54 PM POLITICAL WORKER documented as of this encounter Last Filed Vital Signs Vital Sign Reading Time Taken Comments Blood Pressure 112/75 10/28/2023 12:17 PM POLITICAL WORKER Pulse - - Temperature - - Respiratory Rate - - Oxygen Saturation - - Inhaled Oxygen Concentration - - Weight - - Height - - Body Mass Index - - documented in this encounter Patient Instructions * Attachments The following attachments cannot be sent through Care Everywhere. * (s) What to Expect after Amniocentesis: (Greek) * : Kick Counts (Greek) documented in this encounter Progress Notes * Erica Tristan MD - 10/28/2023 12:15 PM CST The patient was seen for an ultrasound in the Maternal- Medicine Center at the [facility] today. For a detailed report of the ultrasound examination, please see the ultrasound report which can be found under the imaging tab. If you have questions regarding today's evaluation or if we can be of further service, please contact the Maternal- Medicine Center. Erica Tristan MD Grading Machine Feeder, OPERATIONAL INTELLIGENCE OFFICER Maternal- Medicine [phone] (Pager) TICAL WORKER documented in this encounter Nursing Notes * Lisa Larose RN - 10/28/2023 12:15 PM CST Patient reports positive movement, denies contractions, leaking of fluid, or bleeding. SBAR given to [facility] KRAMER, see their note in Epic. NST Performed due to FGR. Dr. Tristan reviewed efm tracing. See NST/BPP Doc Flowsheet tab. MRI scheduled and patient given instructions including NPO 4 hours prior to MRI as well as directions. Patient denies any questions at this time. TICAL WORKER * Lisa Larose RN - 10/28/2023 12:15 PM CST Pt here for amniocentesis d/t bilateral ventriculomegaly and FGR. Saw CGC, see their dictation. After consent signed and TimeOut completed, Dr. Tristan withdrew adequate fluid x2 transabdominal pass. Patient reports minimal pain. Pt is RH positive. MD reviewed blood type and screen and Rhogam not indicated. Rhogam not given today. Discharge teaching completed and questions answered. Pt discharged ambulatory and stable. Lab alerted by calling phone number on amnio work-aid for [facility] site. Cytogenetics notified of specimen. Specimen transported to main lab, warm hand-off completed. TICAL WORKER documented in this encounter Plan of Treatment Upcoming Encounters Date Type Department Care Team (Late st Contact Info) Description 12/12/2023 9:00 AM POLITICAL WORKER Office Visit [facility] M[facility] Medicine [facility] [place] [address] [facility] [address] [place] [address] Erica Tristan MD [address] [facility] [address] [place], [place] [address] 12/12/2023 9:30 AM POLITICAL WORKER Appointment [facility] [place] [address] [place] [phone] Derrick Valenzuela MD [address] [place], [place] [address] 04/17/2024 9:00 AM CDT Virtual Visit [facility] [address] [place] [phone] Rocio Mccarthy MD [address] [place] [address] Scheduled Orders Name Type Priority Associated Diagnoses Orde r Schedule Nonstress Test (MFM Order Only} OB Routine growth restriction antepartum 5 Occurrences starting 10/28/2023 until 10/28/2024 Scheduled Referrals Name Type Priority Associated Diagnoses Orde r Schedule MFM Office Visit NST/CTG Referral Routine growth restriction antepartum Weekly for 5 Occurrences starting 10/28/2023 until 10/28/2024 documented as of this encounter Procedures Procedure Name Priority Date/Time Associated Diagnosis Comments MATERNAL CELL CONTAMINATION, MATERNAL SPECIMEN STAT 10/28/2023 1:56 PM POLITICAL WORKER Abnormal ultrasound CYTOGENOMIC MICROARRAY SNP STAT 10/28/2023 1:49 PM POLITICAL WORKER Abnormal ultrasound CYTOMEGALOVIRUS QUALITATIVE PCR STAT 10/28/2023 1:49 PM POLITICAL WORKER Abnormal ultrasound TOXOPLASMA GONDII BY PCR STAT 10/28/2023 1:49 PM POLITICAL WORKER Abnormal ultrasound documented in this encounter Results * Maternal US Comprehensive Single F/U (11/18/2023 11:09 AM POLITICAL WORKER) Anatomical Region Laterality Modality Ultrasound 11/18/2023 9:06 AM POLITICAL WORKER Impressions 11/18/2023 4:16 PM POLITICAL WORKER IMPRESSION ----- 1. Sebastian intrauterine at 34w [...] reactive and reassuring. Narrative 11/18/2023 4:16 PM POLITICAL WORKER ?Comp Follow Up ----- Pat. Name: TAYLOR RAHMAN ? Study Date: ??11/18/2023 9:06am Pat. NO: ??[id number] ?Referring ??MD: PAT DEVLIN Site: ??[facility] ? Jewelry Mechanic: Danielle Sanchez RDMS : ??1995 ?Age: ?? [...] ? 4 lb 8 ?oz EFW by ?Kelsy ([id number]) Head / Face / Neck Biometry: LLV ? 15.3 ?mm RLV ? 10.8 ?mm Extender ? 13.5 ?mm CM ?6.7 ? mm ANATOMY ----- The following structures appear abnormal: Head / Neck ? Right lateral ventricle: ventriculomegaly. Left lateral ventricle: ventriculomegaly. The following structures appear normal: Head / Neck ? Cranium. Head size. Head shape. Midline falx. Cavum septi pellucidi. Cerebellum. Cisterna magna. Thalami. Face ? Lips. Profile. Nose. Heart / Thorax ?4-chamber view. RVOT view. LVOT view. 9-kkdlag-louctns view. ? Diaphragm. Abdomen ? Stomach. Kidneys. [...] weeks. All these scans are anticipated at [facility]. Return to primary provider for continued [...] RAHMAN Study Date: 11/18/2023 9:06am Pat. NO: [id number] Referring MD: APT DEVLIN Site: [facility] Jewelry Mechanic: Danielle Sanchez RDMS : 1995 Age: 28 [...] 4 lb 8 oz EFW by Hadlock ([id number]) Head / Face / Neck Biometry: LLV 15.3 mm RLV 10.8 mm Extender 13.5 mm CM 6.7 mm ANATOMY ----- The following structures appear abnormal: Head / Neck Right lateral ventricle:ventriculomegaly. Left lateral ventricle: ventriculomegaly. The following structures appear normal: Head / Neck Cranium. Head size. Head shape.Midline falx. Cavum septi pellucidi. Cerebellum. Cisterna magna.Thalami. Face Lips. Profile. Nose. Heart / Thorax 4-chamber view. RVOT view. LVOT view.0-gtiumd-upqdatq view. Diaphragm. Abdomen Stomach. Kidneys. Bladder. Spine [...] weeks. All these scans are anticipated at [facility]. Return to primary provider for continued [...] ventriculomegaly is again present, with right ventricle sqmvpjkno12.6 mm and left difficult to measure due [...] reactive and reassuring. Erica Tristan MD [facility] US ORDERABLE S * Maternal US OB Limited Single/Multiple (11/11/2023 11:47 AM POLITICAL WORKER) Anatomical Region Laterality Modality Ultrasound 11/11/2023 11:3 5 AM POLITICAL WORKER Impressions 11/11/2023 1:32 PM POLITICAL WORKER IMPRESSION ----- 1. Sebastian intrauterine at 33w 3d with growth restriction (EFW 8%, AC 6% on 10/28) here for surveillance. 2. The amniotic fluid volume appeared normal. 3. The umbilical artery dopplers were within normal limits. 4. The NST was reactive and reassuring. Narrative 11/11/2023 1:32 PM POLITICAL WORKER ?Limited ----- Pat. Name: TAYLOR RAHMAN ? Study Date: ??11/11/2023 11:35am Pat. NO: ??[id number] ?Referring ??MD: PAT DEVLIN Site: ??[place] ? Jewelry Mechanic: Catalina Pickett [facility] : ??1995 ?Age: ?? 28 ----- INDICATION [...] the patient (reviewing medical records/tests), in direct wuqr-li-wigb contact with the patient during her visit with the majority spent counseling and discussing the plan of care and documenting the visit in the electronic medical record. Please see note for details. Procedure Note Olivia Younger MD - 11/11/2023 Limited ----- Pat. Name: TAYLOR RAHMAN Study Date: 11/11/2023 11:35am Pat. NO: [id number] Referring MD: PAT DEVLIN Site: [facility] Jewelry Mechanic: Catalina Pickett RDMS : 1995 Age: 28 [...] assessment (on 05/12/2023) 33 w + 3 d3 GENERAL EVALUATION ----- [...] see the patient (reviewing medical records/tests), in ocbmfyvies-jo-rskn contact with the patient during her visit [...] was reactive and reassuring. Erica Tristan MD [facility] US ORDERABLE S * MR (11/11/2023 10:10 AM POLITICAL WORKER) Anatomical Region Laterality Modality Abdomen/Pelvis, SUBRAD MR BODY, UMP MR BODY Magnetic Resonance Impressions 11/11/2023 10:28 AM POLITICAL WORKER IMPRESSION: 1. Mild lateral ventricular dilatation measuring 11 mm on the right and 12 mm on the left. No structural brain abnormality is identified. 2. Cephalic lie. Cervix appears completely effaced and minimally dilated. Cervical effacement was discussed with Dr. Tristan at the time of the examination. MAMI CHARLES MD [facility] 11/11/2023 10:28 AM POLITICAL WORKER EXAM: MRI HISTORY: Ventriculomegaly PROCEDURE COMMENT: MRI, [...] examination. MAMI CHARLES MD Erica Tristan MD IMG MRI ORDERABLES * Maternal US OB Limited Single/Multiple (11/04/2023 3:38 PM POLITICAL WORKER) Anatomical Region Laterality Modality Ultrasound 11/04/2023 3:18 PM POLITICAL WORKER Impressions 11/04/2023 5:17 PM POLITICAL WORKER IMPRESSION ----- 1) Sebastian intrauterine at 32w 3d gestational age. 2) The NST is reactive. 3) The amniotic fluid volume appeared normal. 4) The UA Doppler is within normal limits. Narrative 11/04/2023 5:17 PM POLITICAL WORKER ?Limited ----- Pat. Name: MANUEL RAHMANANDA ? Study Date: ??11/04/2023 3:18pm Pat. NO: ??[id number] ?Referring ??: SERGIO SONI Site: ??[place] ? Jewelry Mechanic: Teresa Hernadez RDMS : ??1995 ?Age: ?? 28 ----- INDICATION ----- growth restriction (FGR). METHOD ----- Transabdominal ultrasound examination. View: Sufficient ----- Sebastian . Number of fetuses: 1 DATING ----- ? Date ?Details ?Gest. age ?MILES LMP ?03/16/2023 ? 33 w + 2 d ? 12/21/2023 Prior assessment ? 05/12/2023 ?GA: 7 w + 2 d ? 32 w + 3 d ? 12/27/2023 Assigned dating ?Dating performed on 11/04/2023, based on the prior assessment (on 05/12/2023) ?32 w + 3 d ? 12/27/2023 GENERAL EVALUATION ----- Cardiac activity present. FHR 144 bpm. movements visualized. Presentation cephalic. Placenta Posterior, No Previa, > 2 cm from internal os. Umbilical cord previously studied. Amniotic fluid Amount of AF: normal. MVP 10.3 cm. ASH 23.4 cm. Q1 10.4 cm, Q2 5.3 cm, Q3 3.7 cm, Q4 4.1 cm. DOPPLER ----- Umbilical Artery: normal. Sampling site: midcord PI ?0.84 ?36% ? Radha HR ?169 ? bpm MATERNAL STRUCTURES ----- Right Ovary ?Not examined Left Ovary ?Not examined NON STRESS TEST ----- NST interpretation: reactive. Test duration 25 min. Baseline FHR 145 bpm. Baseline variability: moderate. Accelerations: present. Decelerations: absent. Uterine activity: absent RECOMMENDATION ----- We discussed the findings on today's ultrasound with the patient. Continue surveillance with weekly NST, amniotic fluid and UA Doppler assessment. Return to primary provider for continued care. Thank-you for the opportunity to participate in the care of this patient. If you have questions regarding today's evaluation or if we can be of further service, please contact the Maternal- Medicine Center. anomalies may be present but not detected Procedure Note Chelsie Gallagher MD - 11/08/2023 Limited ----- Pat. Name: TAYLOR RAHMAN Study Date: 11/04/2023 3:18pm Pat. NO: [id number] Referring MD: SERGIO SONI Site: [facility] Jewelry Mechanic: Teresa Hernadez RDMS : 1995 Age: 28 ----- INDICATION ----- growth restriction (FGR). METHOD ----- Transabdominal ultrasound examination. View: Sufficient ----- Sebastian . Number of fetuses: 1 DATING ----- DateDetailsGest. age MILES LMP w + 2 d 12/21/2023 Prior assessment 05/12/2023 GA: 7 w +2 d32 w + 3 d 12/27/2023 Assigned dating Dating performed on 11/04/2023, based onthe prior assessment (on 05/12/2023) 32 w + 3 d3 GENERAL EVALUATION ----- Cardiac activity present. FHR 144 bpm. movements visualized. Presentation cephalic. Placenta Posterior, No Previa, > 2 cm from internal os. Umbilical cord previously studied. Amniotic fluid Amount of AF: normal. MVP 10.3 cm. ASH 23.4 cm. Q1 10.4 cm,Q2 5.3 cm, Q3 3.7 cm, Q4 4.1 cm. DOPPLER ----- Umbilical Artery: normal. Sampling site: midcord PI 0.8436% Radha HR 169 bpm MATERNAL STRUCTURES ----- Right Ovary Not examined Left Ovary Not examined NON STRESS TEST ----- NST interpretation: reactive. Test duration 25 min. Baseline FHR 145 bpm.Baseline variability: moderate. Accelerations: present. Decelerations:absent. Uterine activity: absent RECOMMENDATION ----- We discussed the findings on today's ultrasound with the patient. Continue surveillance with weekly NST, amniotic fluid and UADoppler assessment. Return to primary provider for continued care. Thank-you for the opportunity to participate in the care of this patient.If you have questions regarding today's evaluation or if we can be offurther service, please contact the Maternal- Medicine Center. anomalies may be present but not detected IMPRESSION ----- 1) Sebastian intrauterine at 32w 3d gestational age. 2) The NST is reactive. 3) The amniotic fluid volume appeared normal. 4) The UA Doppler is within normal limits. Erica Tristan MD [facility] US ORDERABLE S * Maternal Cell Contamination, Maternal Specimen (10/28/2023 1:56 PM POLITICAL WORKER) Maternal Cell Contam, Maternal Spec Sent to [facility]. 10/31/2023 11:08 AM POLITICAL WORKER [facility] Blood STRUCTURE OF RIGHT UPPER LIMB / Unknown Venipuncture / Unknown 10/28/2023 1:56 PM POLITICAL WORKER 10/28/2023 2:58 PM POLITICAL WORKER [facility] - BLOOD ORDERABL ES [facility] B[facility] [address] [place] [address], [facility] [phone] * Cytogenomic Microarray SNP (10/28/2023 1:49 PM POLITICAL WORKER) Cytogenomic SNP Microarray See Note Normal 11/08/2023 12:59 PM POLITICAL WORKER [facility] Comment: Test Performed: Cytogenomic SNP Microarray- (ARRAY [...] within the BROOKS identified in this study: www.[employer]/ and [email or web address] education [email or web address]/ Recommendation: Genetic counseling Health care providers with questions may contact an [facility] genetic counselor at [phone]. [phone]. References: 1) Monica. Genomic Imprinting and Uniparental Disomy in Medicine: Clinical and Molecular Aspects. [place], [place]. Francois-Renea; 2002:49-54. 2) Chad. Justyn and Britany's Chromosome Abnormalities and Genetic Counseling. 5th edition. [place], [place]: [place]; 2018. 3) Alex et al. A clinical evaluation tool for SNP arrays, especially for autosomal recessive conditions in offspring of consanguineous parents. Marisol Med. 2013 February;15(5):354-60. PMID: 11194941. Cytogenomic Nomenclature (ISCN): arr[GRCh37] 1p36.33q44([id number])x2 z Technical Information - This assay was performed using the PAYMILLcan HD Suite (Pixelligent) according to validated protocols within the Genomic Microarray Laboratory at Critical access hospital - This assay is designed to detect alterations to DNA copy number state (gains and losses), copy-neutral alterations (regions of homozygosity; BROOKS) that indicate an absence- or sfzj-oh-mqlmrqwqpsoraf (AOH or DEMETRIUS), and certain alterations to [...] copy number and BROOKS determination - The PAYMILLcan HD array contains 2.67 million markers across [...] performed in accordance with recommendations by the [employer] (ACMG), [...] used in CNV classification, please refer to [facility] Constitutional CNV Assertion Criteria, which can be found on [facility] Genetics website at www.[employer].com/genetics - CNVs classified as likely benign or [...] reviewed and approved by Akira Sandoval MD, [facility] INTERPRETIVE INFORMATION: Cytogenomic SNP Microarray - This test was developed and its performance characteristics determined by [facility]. It has not been cleared or approved by the US Food and Drug Administration. This test was performed in a CLIA certified laboratory and is intended for clinical purposes. Counseling and informed consent are recommended for genetic testing. Consent forms are available online. Maternal Contamination Study Spec Cells 11/08/2023 12:59 PM POLITICAL WORKER [facility] Comment: Single genotype present; no maternal cells present. ?? and maternal samples were tested using STR markers to rule out maternal cell contamination. This result has been reviewed and approved by Farzana Huynh M.D., Ph.D. Cytogenomic Maternal Specimen Yes 11/08/2023 12:59 PM POLITICAL WORKER [facility] Comment: Performed By: [facility] [address] [place] [address] Inspector Scales: Fco Rosa MD, PhD CLIA Number: [id number] Amniotic fluid STRUCTURE OF AMNION / Unknown Non-blood Collection / Unknown 10/28/2023 1:49 PM POLITICAL WORKER 10/28/2023 2:58 PM POLITICAL WORKER [facility] - BODY FLUIDS OR DERABLES [facility] [address] [place] [address], [facility] [phone] * Cytomegalovirus Qualitative PCR Non Bld (10/28/2023 1:49 PM POLITICAL WORKER) CMV Qualitative PCR Not Detected 4:19 AM POLITICAL WORKER [facility] Comment: NOT DETECTED - A negative result does not rule out the presence of PCR inhibitors in the patient specimen or assay specific nucleic acid in concentrations below the level of detection by the assay. INTERPRETIVE INFORMATION: Cytomegalovirus Detection by PCR This test was developed and its performance characteristics determined by [facility]. It has not been cleared or approved by the US Food and Drug Administration. This test was performed in a CLIA certified laboratory and is intended for clinical purposes. Performed By: [facility] [address] [place] [address] Inspector Scales: Fco Rosa MD, PhD CLIA Number: [id number] Amniotic fluid STRUCTURE OF AMNION / Unknown Non-blood Collection / Unknown 10/28/2023 1:49 PM POLITICAL WORKER 10/28/2023 2:58 PM POLITICAL WORKER [facility] - MICRO GENERAL ORDERABLES [address] [address], [facility] [phone] * Toxoplasma gondii by PCR (10/28/2023 1:49 PM POLITICAL WORKER) Pathologist [facility] Toxoplamsma Gondii PCR Not Detected 11/02/2023 10:28 PM POLITICAL WORKER [facility] Comment: NOT DETECTED - A negative result does not rule out the presence of PCR inhibitors in the patient specimen or assay specific nucleic acid in concentrations below the level of detection by the assay. INTERPRETIVE INFORMATION: Toxoplasma gondii by PCR This test was developed and its performance characteristics determined by [facility]. It has not been cleared or approved by the US Food and Drug Administration. This test was performed in a CLIA certified laboratory and is intended for clinical purposes. Performed By: [facility] [address] [place] [address] Inspector Scales: Fco Rosa MD, PhD CLIA Number: [id number] Amniotic fluid STRUCTURE OF AMNION / Unknown Non-blood Collection / Unknown 10/28/2023 1:49 PM POLITICAL WORKER 10/28/2023 2:58 PM POLITICAL WORKER [facility] - BLOOD ORDERABL ES [facility] [address] [place] [address], [facility] [phone] documented in this encounter Visit Diagnoses Diagnosis growth restriction antepartum- Primary complicated by cerebral ventriculomegaly, single or unspecified fetus Abnormal ultrasound Abnormal findings on screening growth restriction antepartum complicated by cerebral ventriculomegaly, single or unspecified fetus growth restriction antepartum growth restriction antepartum documented in this encounter Additional Health Concerns Assessment Noted Time PHQ-9 Depression Total Score: 023 10:04 AM CDT documented as of this encounter Care Teams Clinical Documentation Improvement Specialist Relationship Specialty Start Date End Date Billie Guadarrama PCP - General 12/17/19 Rocio Mccarthy MD [address] [place] [address] Assigned Endocrinology Provider 04/24/22 Erica Tristan MD [address] [place], [place] [address] Assigned OBGYN Provider 08/06/23 documented as of this encounter
--- OUTSIDE RECORDS SUMMARY | 2023-11-24 07:30 | XMS_ITS | Encounter Summary ---
Author Name Unknown Organization [facility] Address [address] [place] [address]. [place] [address] Care Team Providers Care Bomb Technician Name Role Phone Chiara Billie Primary Care Provider [phone] Rocio Mccarthy MD Unavailable [phone] Erica Tristan MD Unavailable [phone] Encounter Details Date Type Department Care Team (Latest Contact Info) Description 10/25/2023 Travel Social History Tobacco Use Types Packs/Day [...] Sex Assigned at Female 10/05/2020 9:54 PM TUGBOAT ENGINEER Gender Identity Female 10/05/2020 9:54 PM TUGBOAT ENGINEER Sexual Orientation Straight 10/05/2020 9: 54 PM TUGBOAT ENGINEER documented as of this encounter Plan of Treatment Upcoming Encounters Date Type Department Care Team ( Contact Info) Description 12/12/2023 9:00 AM TUGBOAT ENGINEER Office Visit [facility] [address] [place] [phone] Erica Tristan MD [address] [place] [address] 12/12/2023 9:30 AM TUGBOAT ENGINEER Appointment [facility] Medicine [facility] [address] [place] [phone] Derrick Valenzuela MD [address] [place], [place] [id number] 04/17/2024 9:00 AM CDT Virtual Visit [place] [address] [place] [address] [place] [phone] Rocio Mccarthy MD [address] [place] [address] documented as of this encounter Visit Diagnoses Not on filedocumented in this encounter Additional Health Concerns Assessment Noted Time PHQ-9 Depression Total Score: 11 023 10:04 AM CDT documented as of this encounter Care Teams Bomb Technician Relationship Specialty Start Date End Date Billie Guadarrama PCP - General 12/17/19 Rocio Mccarthy MD [address] [place] [address] Assigned Endocrinology Provider 04/24/22 Erica Tristan MD [address] [place] [address] Assigned OBGYN Provider 08/06/23 documented as of this encounter
--- OUTSIDE RECORDS SUMMARY | 2023-11-24 07:30 | XMS_ITS | Encounter Summary ---
Author Name Unknown Organization [place] Address [address] [facility] [place] [address] Care Team Providers Care Funding Analyst Name Role Phone Chiara Billie Primary Care Provider [phone] Rocio Mccarthy MD Unavailable [phone] Erica Tristan MD Unavailable [phone] Encounter Details Date Type Department Care Team (Late st Contact Info) Description 11/03/2023 MyC Medical Advice [facility] [address] [place] [address] Karina Bone, [address] [place] [address] Social History Tobacco Use Types [...] Sex Assigned at Female 10/05/2020 9:54 PM DESKTOP OPERATOR Gender Identity Female 10/05/2020 9:54 PM DESKTOP OPERATOR Sexual Orientation Straight 10/05/2020 9: 54 PM DESKTOP OPERATOR documented as of this encounter Plan of Treatment Upcoming Encounters Date Type Department Care Team (Late st Contact Info) Description 12/12/2023 9:00 AM DESKTOP OPERATOR Office Visit [facility] Medicine [facility] [address] [place] [address] Erica Tristan MD [address] [place], [place] [address] 12/12/2023 9:30 AM DESKTOP OPERATOR Appointment [facility] Medicine [facility] [address] [place] [phone] Derrick Valenzuela MD [address] [place], [place] [address] 04/17/2024 9:00 AM CDT Virtual Visit [facility] [address] [place] [address] [place] [phone] Rocio Mccarthy MD [address] [place] [address] documented as of this encounter Visit Diagnoses Not on filedocumented in this encounter Additional Health Concerns Assessment Noted Time PHQ-9 Depression Total Score: 11 023 10:04 AM CDT documented as of this encounter Care Teams Funding Analyst Relationship Specialty Start Date End Date Billie Guadarrama PCP - General 12/17/19 Rocio Mccarthy MD [address] [place] [address] Assigned Endocrinology Provider 04/24/22 Erica Tristan MD [address] [address] Assigned OBGYN Provider 08/06/23 documented as of this encounter
--- OUTSIDE RECORDS SUMMARY | 2023-11-24 07:30 | XMS_ITS | Encounter Summary ---
Author Name Unknown Organization [facility] Address [address] [place] [address]. [place] [address] Care Team Providers Care Financial Recording Clerk Name Role Phone Billie Guadarrama Primary Care Provider [phone] Rocio Mccarthy MD Unavailable [phone] Erica Tristan MD Unavailable [phone] Reason for Visit * Reason Comments Genetic Counseling * Consultation (Routine: Next available opening) - Pending Review Specialty Diagnoses / Procedures Referred By Contreinaldo t Referred To Contact Diagnoses Abnormal ultrasound Erica Tristan MD [address] [facility] [address] [place] [address] Referral ID Status Reason Start Date Expiration Date V isits Requested Visits Authorized [id number] Pending Review 10/28/2023 10/27/2024 1 1 Encounter Details Date Type Department Care Team (Late st Contact Info) Description 10/28/2023 1:30 PM SIZING MACHINE TENDER Office Visit [facility] [place] [address] [place] [address] Erica Tristan MD [address] [place] [address] Karina Bone GC [address] [place] [address] Abnormal ultrasound Social History Tobacco Use Types [...] Sex Assigned at Female 10/05/2020 9:54 PM SIZING MACHINE TENDER Gender Identity Female 10/05/2020 9:54 PM SIZING MACHINE TENDER Sexual Orientation Straight 10/05/2020 9: 54 PM SIZING MACHINE TENDER documented as of this encounter Patient Instructions * Patient Instructions* Karina Bone, KEVAN - 10/28/2023 1:30 PM SIZING MACHINE TENDER As part of your visit in Maternal Medicine, you elected to have a genetic amniocentesis, an invasive diagnostic procedure. The following information was discussed.: Amniocentesis is an invasive test that can diagnose these types of structural chromosome abnormalities with greater than 99% accuracy. In addition, amniotic fluid alpha fetoprotein levels would be measured to screen for neural tube and abdominal wall defects. The risk of loss association with amniocentesis is generally estimated to be 1/500 or less. Mild cramping is very common. It usually goes away within a few hours. You may take Acetaminophen (Tylenol ) for this if needed Avoid strenuous activities for the rest of the day after the Amniocentesis is done. This includes heavy lifting, jogging or other exercise. You should call your regular obstetric (OB) care provider if you have: Heavy bleeding Clear fluid (like water) leaking from your vagina Severe abdominal (belly) pain Flu-like symptoms within two weeks of the test. These include chills, muscle aches or a fever over 100.4??F (38??C) (under the tongue). The following testing was ordered on the amniotic fluid sample: Microarray analysis - results typically available in 7-10 days. Testing may take up to 14 days or longer given the later gestional age Maternal Cell Contamination studies are performed on amnio specimens with microarray Results are not guaranteed Results will be communicated to you, forwarded to your primary OB provider, and available in [facility]. NG MACHINE TENDER documented in this encounter Progress Notes * Karina Bone GC - 10/28/2023 1:30 PM CST [facility] Genetic Counseling Consult Patient: Altagracia Garcia Date of : 1995 Date of Service: 10/28/23 Altagracia was seen at the [facility] for genetic consultation.The indication for genetic counseling is abnormal ultrasound . The patient was unaccompanied to this visit. . The session was conducted in Danish. IMPRESSION/ PLAN 1. Altagracia had a genetic consultation today following her ultrasound that identified mild ventriculomegaly, growth restriction, hypoplastic nasal bone, and small head size (not microcephalic). Today she has elected to pursue genetic amniocentesis and consent was obtained. The following was ordered on the sample: chromosomal microarray and infection studies (cytomegalovirus and toxoplasmosis) through [facility]. Infection studies should return in ~1 week. The microarray may take longer than the typical turnaround time due to the late gestational age, but should still be expected in 2-3 weeks. All results will be available in [facility]. We will contact her to discuss the results, and a copy will be forwarded to the referring OB provider. Altagracia provided verbal permission for detailed resultsto be left on her voicemail. She is aware of the anatomic sex (female). 2. Altagracia will return for additional imaging, including a MRI. HISTORY /Parity: Altagracia's history is significant for: One 2020 full-term delivery complicated by labor, CURRENT Current Age: [age] year old Age at Delivery: 28 year old MILES: 12/27/2023, by Ultrasound Gestational Age: 31w3d This is a single gestation. This was conceived spontaneously. MEDICAL HISTORY Altagracia???s reported medical history is not expected to impact management or risks to development. FAMILY HISTORY A three-generation pedigree was not obtained today due to our focus on other topics. RISK ASSESSMENT We discussed that today's findings are relatively non-specific, but could be associated with certain infections (cytomegalovirus and toxoplasmosis)). Altagracia denies any illnesses during the . She has a cat, but does not clean the litter box; additionally the cat is indoor-only. Altagracia does not have other risk factors for toxoplasmosis (such as eating raw or undercooked meat). Additionally, the findings could be associated with a chromosomal difference. By report, Altagracia has had a low-risk NIPT for trisomies 21, 18, 13, and the sex chromosomes (report not available for review- will attempt to obtain from referring clinic). There remains a small chance for false negatives. Additionally, this type of testing does not routinely screen for microdeletion and duplication syndromes. Some studies estimate up to a 5% incremental yield for chromosomal microarray in cases of isolated growth restriction. In Altagracia's , the growth restriction is not isolated, sothat yield may be higher. TESTING OPTIONS We discussed the following diagnostic options: Amniocentesis Invasive diagnostic procedure done after 15 weeks gestation The procedure collects a small sample of amniotic fluid for the purpose of chromosomal testing and/or other genetic testing Diagnostic result; more than 99% sensitivity for chromosome abnormalities Testing for AFP in the amniotic fluid can test for open neural tube defects Altagracia has elected to pursue genetic amniocentesis today. Genetic Amniocentesis - This is an invasive procedure typically performed at 15 weeks or later, through which amniotic fluid is obtained for the purpose of chromosome analysis and/or other genetic analysis. - The timing and option of amniocentesis is dependent on the fusion of the chorionic and amniotic membranes. This fusion typically occurs around 15-16 weeks gestation. In the case of aneuploidy, thisfusion can be delayed. - Amniocentesis is considered a diagnostic test for chromosome problems during . - The risk of loss associated with amniocentesis is generally estimated to be 1/500 or less. - Amniotic fluid AFP measurement can be done to screen for the possibility of open neural tube or ventral defects. We reviewed the amniocentesis procedure consent form as well as the genetic testing consent form. Both can be found scanned in the patient's chart under the Media tab. The following was ordered on the sample: microarray and infection studies via [facility] laboratory. . Microarray testing involves looking for small extra (duplications) or missing (deletions) pieces ofDNA within the chromosomes. Chromosomal deletions and duplications may cause problems with an individual's health and development including learning disabilities, developmental delays, growth issues,physical differences, and psychiatric challenges. The specific symptoms would depend on the size and gene content of the specific chromosomal region involved. Microarray testing can also identify whether there are areas within a pair of chromosomes that are too similar to each other, which could indicate that the individual's parents may be related to each other such as cousins, or could represent a phenomenon known as uniparental disomy (UPD) which is where an individual inherits more of a specific chromosome region from one parent than the other parent. Depending on the chromosome(s) involved, this ???genetic similarity?? can sometimes lead to growth, developmental and/or physical problems for the individual. Sometimes a microarray can uncover additional incidental findings, such as carrier status, that may require further evaluation. We reviewed the benefits, limitations, and possible results from a microarray analysis which can include: ?? Negative: No clinically significant deletions or duplications were identified. This may not ruleout a genetic cause for the features. ?? Positive: A deletion, duplication, or genetic similarity was identified that may be associated with a particular set of symptoms or known syndrome. ?? Variant of uncertain significance (VUS): A deletion or duplication was identified, but it is notknown if it explains the clinical features or it is is normal variation. If the microarray returns a VUS, parental testing may be recommended to help clarify pathogenicity. These results will be available in [facility]. We will contact her to discuss the results, and a copy will be forwarded to the office of the referring OB provider. It was a pleasure to be involved with Altagracia???s care. Fmhs-mx-lkmo time of the meeting was 25 minutes. Karina Bone GC, MS, [facility] Certified and [place] Licensed Genetic Counselor [facility] Maternal Medicine Office: [phone] MFM: [phone] [facility] NG MACHINE TENDER documented in this encounter Plan of Treatment Upcoming Encounters Date Type Department Care Team (Late st Contact Info) Description 12/12/2023 9:00 AM SIZING MACHINE TENDER Office Visit [facility] [address] [place] [phone] Erica Tristan MD [address] [place], [place] [address] 12/12/2023 9:30 AM SIZING MACHINE TENDER Appointment [facility] Medicine [facility] [address] [place] [phone] Derrick Valenzuela MD [address] [place] [address] 04/17/2024 9:00 AM CDT Virtual Visit [facility] [address] [place] [phone] Rocio Mccarthy MD [address] [place], [place] [phone] documented as of this encounter Procedures Procedure Name Priority Date/Time Associated Diagnosis Comments A1 FLASK Routine 10/28/2023 1:49 PM SIZING MACHINE TENDER Abnormal ultrasound AMNIOTIC CULTURE (CYTOGENETICS) Routine 10/28/2023 1:49 PM SIZING MACHINE TENDER Abnormal ultrasound IN-SITU CELL CULTURE ONLY, AMNIOTIC FLUID STAT 10/28/2023 1:49 PM SIZING MACHINE TENDER Abnormal ultrasound documented in this encounter Results * Maternal Cell Contamination, Maternal Specimen (10/28/2023 1:56 PM SIZING MACHINE TENDER) Maternal Cell Contam, Maternal Spec Sent to [facility]. 10/31/2023 11:08 AM SIZING MACHINE TENDER [facility] Blood STRUCTURE OF RIGHT UPPER LIMB / Unknown Venipuncture / Unknown 10/28/2023 1:56 PM SIZING MACHINE TENDER 10/28/2023 2:58 PM SIZING MACHINE TENDER Karina Bone GC LAB - BLOOD ORDERABL ES [facility] LABS [facility] [address] [place] [address], [facility] [[email or web address]] [phone] * A1 Flask (10/28/2023 1:49 PM SIZING MACHINE TENDER) Amniotic fluid STRUCTURE OF AMNION / Unknown Non-blood Collection / Unknown 10/28/2023 1:49 PM SIZING MACHINE TENDER 10/28/2023 2:59 PM SIZING MACHINE TENDER Karina Bone GC LAB - BETALYA AP CYTOGENETICS [facility] [address] [place] [address] * Amniotic Culture (10/28/2023 1:49 PM SIZING MACHINE TENDER) Amniotic fluid STRUCTURE OF AMNION / Unknown Non-blood Collection / Unknown 10/28/2023 1:49 PM SIZING MACHINE TENDER 10/28/2023 2:59 PM SIZING MACHINE TENDER Karina ALBARADO - BETALYA AP Performing Organization Address City/[facility] de Phone Number [facility]ogenetics Lab [address] [place] [address] * In-situ Cell Culture only, Amniotic fluid (10/28/2023 1:49 PM SIZING MACHINE TENDER) Results An amniotic fluid sample was collected and received in the Cytogenetics Laboratory on 10-28-2023 and initiated into a single culture . As no additional testing was necessary, these cultures were discarded on 11-10-2023 per the direction of Karina Bone MS, [facility]. 11/10/2023 11:31 AM SIZING MACHINE TENDER U CYTOGENETICS Amniotic fluid STRUCTURE OF AMNION / Unknown Non-blood Collection / Unknown 10/28/2023 1:49 PM SIZING MACHINE TENDER 10/28/2023 2:59 PM SIZING MACHINE TENDER Karina Bone LAB - BEAKER AP UU CYTOGENETICS [facility] Cyt[facility]etics Lab [address] [facility] Room 15-[address] [phone] * Toxoplasma gondii by PCR (10/28/2023 1:49 PM SIZING MACHINE TENDER) Toxoplamsma Gondii PCR Not Detected 11/02/2023 10:28 PM SIZING MACHINE TENDER [facility] Comment: NOT DETECTED - A negative result does not rule out the presence of PCR inhibitors in the patient specimen or assay specific nucleic acid in concentrations below the level of detection by the assay. INTERPRETIVE INFORMATION: Toxoplasma gondii by PCR This test was developed and its performance characteristics determined by [facility]. It has not been cleared or approved by the US Food and Drug Administration. This test was performed in a CLIA certified laboratory and is intended for clinical purposes. Performed By: [facility] [address] [place] [address] [employer] Designer: Fco Rosa MD, PhD CLIA Number: [id number] Amniotic fluid STRUCTURE OF AMNION / Unknown Non-blood Collection / Unknown 10/28/2023 1:49 PM SIZING MACHINE TENDER 10/28/2023 2:58 PM SIZING MACHINE TENDER Karina Bone GC LAB - BLOOD ORDERABL ES Performing Organization Address City/[facility]/ZIP Co de Phone Number [facility] [employer] [address] [place] [address], [facility] [[email or web address]] [phone] * Cytomegalovirus Qualitative PCR Non Bld (10/28/2023 1:49 PM SIZING MACHINE TENDER) CMV Qualitative PCR Not Detected 4:19 AM SIZING MACHINE TENDER [facility] Comment: NOT DETECTED - A negative result does not rule out the presence of PCR inhibitors in the patient specimen or assay specific nucleic acid in concentrations below the level of detection by the assay. INTERPRETIVE INFORMATION: Cytomegalovirus Detection by PCR This test was developed and its performance characteristics determined by [facility]. It has not been cleared or approved by the US Food and Drug Administration. This test was performed in a CLIA certified laboratory and is intended for clinical purposes. Performed By: [facility] [address] [place] [address] Plastic Parts Designer: Fco Rosa MD, PhD CLIA Number: [id number] Amniotic fluid STRUCTURE OF AMNION / Unknown Non-blood Collection / Unknown 10/28/2023 1:49 PM SIZING MACHINE TENDER 10/28/2023 2:58 PM SIZING MACHINE TENDER Karina Bone GC LAB - MICRO GENERAL ORDERABLES [facility] [address] [place] [address], [facility] [[email or web address]] [phone] * Cytogenomic Microarray SNP (10/28/2023 1:49 PM SIZING MACHINE TENDER) Cytogenomic SNP Microarray See Note Normal 11/08/2023 12:59 PM SIZING MACHINE TENDER [facility] Comment: Test Performed: Cytogenomic SNP Microarray- (ARRAY [...] within the BROOKS identified in this study: [email or web address] and [email or web address] Recommendation: Genetic counseling Health care providers with questions may contact an [facility] genetic counselor at ext. [phone]. References: 1) Monica. Genomic Imprinting and Uniparental Disomy in Medicine: Clinical and Molecular Aspects. [place], [place]. Francois-Renea; 2002:49-54. 2) Chad. Alejandra and Britany's Chromosome Abnormalities and Genetic Counseling. 5th edition. [place], [place]: [place]; 2018. 3) Alex et al. A clinical evaluation tool for SNP arrays, especially for autosomal recessive conditions in offspring of consanguineous parents. Marisol Med. 2012;15(5):354-60. PMID: [id number]. Cytogenomic Nomenclature (ISCN): arr[GRCh37] 1p36.33q44([id number] [facility] Technical Information - This assay was performed using the [employer]can HD Suite ([employer]) according to validated protocols within the Genomic Microarray Laboratory at [facility] - This assay is designed to detect alterations to DNA copy number state (gains and losses), copy-neutral alterations (regions of homozygosity; BROOKS) that indicate an absence- or kovd-ks-pqyxydzowcojbn (AOH or DEMETRIUS), and certain alterations to [...] copy number and BROOKS determination - The [employer]can HD array contains 2.67 million markers across [...] performed in accordance with recommendations by the [place] [employer] and Genomics (ACMG), [...] used in CNV classification, please refer to [facility] Constitutional CNV Assertion Criteria, which can be found on [facility]'s Genetics website at [email or web address] - CNVs classified as likely benign or benign that are devoid of relevant gene content or reported as common findings in the general population, are generally not reported - CNV reporting (size) criteria: losses greater than 1 Mb and gains greater than 2 Mb are generally reported, dependent on genomic content - Regions of homozygosity (BROOSK) are generally reported when a single terminal [...] reviewed and approved by Akira Sandoval MD, [facility] INTERPRETIVE INFORMATION: Cytogenomic SNP Microarray - This test was developed and its performance characteristics determined by [facility]. It has not been cleared or approved by the US Food and Drug Administration. This test was performed in a CLIA certified laboratory and is intended for clinical purposes. Counseling and informed consent are recommended for genetic testing. Consent forms are available online. Maternal Contamination Study Spec Cells 11/08/2023 12:59 PM SIZING MACHINE TENDER [facility] Comment: Single genotype present; no maternal cells present. ?? and maternal samples were tested using STR markers to rule out maternal cell contamination. This result has been reviewed and approved by Farazna Huynh M.D., Ph.D. Cytogenomic Maternal Specimen Yes 11/08/2023 12:59 PM SIZING MACHINE TENDER [facility] Comment: Performed By: [facility] [address] [place] [address] Pl[employer] Designer: Fco Rosa MD, PhD CLIA Number: [id number] Amniotic fluid STRUCTURE OF AMNION / Unknown Non-blood Collection / Unknown 10/28/2023 1:49 PM SIZING MACHINE TENDER 10/28/2023 2:58 PM SIZING MACHINE TENDER Karina Bone GC LAB - BODY FLUIDS OR DERABLES [facility] [address] [place] [address], [facility] [[email or web address]] [phone] documented in this encounter Visit Diagnoses Diagnosis Abnormal ultrasound Abnormal findings on screening documented in this encounter Additional Health Concerns Assessment Noted Time PHQ-9 Depression Total Score: 11 023 10:04 AM CDT documented as of this encounter Care Teams Financial Recording Clerk Relationship Specialty Start Date End Date Bilile Guadarrama PCP - General 12/17/19 Rocio Mccarthy MD [address] [place] [address] Assigned Endocrinology Provider 04/24/22 Erica Tristan MD [address] [facility] [address] [place] [address] Assigned OBGYN Provider 08/06/23 documented as of this encounter
--- OUTSIDE RECORDS SUMMARY | 2023-11-24 07:30 | XMS_ITS | Encounter Summary ---
Author Name Unknown Organization [facility] Address [facility] [place] [address] Care Team Providers Care Milk Pickup Driver Name Role Phone Chiara Billie Primary Care Provider [phone] Rocio Mccarthy MD Unavailable [phone] Erica Tristan MD Unavailable [phone] Reason for Referral * Consultation (Routine: Next available opening) - Pending Review Specialty Diagnoses / Procedures Referred By Contac t Referred To Contact Diagnoses Abnormal ultrasound Erica Tristan MD [address] [place] [address] Referral ID Status Reason Start Date Expiration Date V isits Requested Visits Authorized [id number] Pending Review 10/28/2023 10/27/2024 1 1 DENTIAL LIFE DIRECTOR Encounter Details Date Type Department Care Team (Late st Contact Info) Description 10/28/2023 Orders Only [facility] [place] [address] [place] [address] Karina Bone GC [address] [place] [address] Abnormal ultrasound (Primary Dx) Social History Tobacco Use Types [...] Assigned at Female 10/05/2020 9:54 PM RESIDENTIAL LIFE DIRECTOR Gender Identity Female 10/05/2020 9:54 PM RESIDENTIAL LIFE DIRECTOR Sexual Orientation Straight 10/05/2020 9: 54 PM RESIDENTIAL LIFE DIRECTOR documented as of this encounter Plan of Treatment Upcoming Encounters Date Type Department Care Team (Late st Contact Info) Description 12/12/2023 9:00 AM RESIDENTIAL LIFE DIRECTOR Office Visit [facility] M[facility] Medicine [facility] [address] [place] [phone] Erica Tristan MD [address] [place], [place] [phone] 12/12/2023 9:30 AM RESIDENTIAL LIFE DIRECTOR Appointment [facility] [address] [place] [phone] Derrick Valenzuela MD [address] [place], [place] [phone] 04/17/2024 9:00 AM CDT Virtual Visit [facility] [address] [place] [phone] Rocio Mccarthy MD [address] [place], [place] [address] Scheduled Referrals Name Type Priority Associated Diagnoses Orde r Schedule [facility] Genetic Counseling Referral Routine: Next available opening Abnormal ultrasound Expected: 10/28/2023 (Approximate), Expires: 10/28/2024 documented as of this encounter Visit Diagnoses Diagnosis Abnormal ultrasound- Primary Abnormal findings on screening documented in this encounter Additional Health Concerns Assessment Noted Time PHQ-9 Depression Total Score: 11 023 10:04 AM CDT documented as of this encounter Care Teams Milk Pickup Driver Relationship Specialty Start Date End Date Billie Guadarrama PCP - General 12/17/19 Rocio Mccarthy MD [address] [place], [place] [address] Assigned Endocrinology Provider 04/24/22 Erica Tristan MD [address] [place], [place] [address] Assigned OBGYN Provider 08/06/23 documented as of this encounter
--- OUTSIDE RECORDS SUMMARY | 2023-11-24 07:30 | XMS_ITS | Encounter Summary ---
Author Name Unknown Organization [place] Address [address] [facility] [place] [address] Care Team Providers Care Facility Rehab Director Name Role Phone Chiara Billie Primary Care Provider [phone] Rocio Mccarthy MD Unavailable [phone] Erica Tristan MD Unavailable [phone] Reason for Visit * Reason Onset Date Comments Results 11/09/2023 Microarray (amni ocentesis) Encounter Details Date Type Department Care Team (Late st Contact Info) Description 11/09/2023 Telephone [facility] Maternal Medicine Center [address] [place] [address] Karina Bone, [address] [place] [address] Results (Microarray (amniocentesis)) Social History Tobacco Use Types Packs/Day [...] Sex Assigned at Female 10/05/2020 9:54 PM ASSOCIATE PROFESSOR PLANT PATHOLOGY Gender Identity Female 10/05/2020 9:54 PM ASSOCIATE PROFESSOR PLANT PATHOLOGY Sexual Orientation Straight 10/05/2020 9: 54 PM ASSOCIATE PROFESSOR PLANT PATHOLOGY documented as of this encounter Miscellaneous Notes * Telephone Encounter - Karina Bone GC - 11/09/2023 9:45 AM CST November 09, 2023 I called Altagracia to discuss the results of the chromosomal microarray performed on amniocytes. The array did not reveal any copy number variants. 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 There is no known phenotype associated with UPD 1, meaning it does not appear that there are regions or genes susceptible to methylation disruption. However, chromosome 1 contains hundreds of genes associated with autosomal recessive conditions. If Altagracia or her partner harbors a mutation in one of those genes there is a possibility that mutation would be present in a homozygous state, leading to disease. The genes on chromosome 1 have many, many different functions and so the associated conditions have an extremely wide presentation. We discussed options for further evaluation including a custom panel of the recessive genes on chromosome 1 or even whole exome sequencing. After a detailed discussion, Altagracia opted not to do any further testing at this time. I let her know that if at any time she has concerns, she should ask for a referral to the pediatric genetics team. I encouraged her to reach out if there is anything further I can do in the meantime. Karina Bone MS, [facility] Licensed Genetic Counselor [facility] Maternal Medicine [email or web address] [phone] CIATE PROFESSOR PLANT PATHOLOGY documented in this encounter Plan of Treatment Upcoming Encounters Date Type Department Care Team (Late st Contact Info) Description 12/12/2023 9:00 AM ASSOCIATE PROFESSOR PLANT PATHOLOGY Office Visit [facility] Maternal Medicine Center [place] [address] [facility] [address] [place] [address] Erica Tristan MD [address] [facility] [address] [place] [address] 12/12/2023 9:30 AM ASSOCIATE PROFESSOR PLANT PATHOLOGY Appointment [facility] Maternal Medicine Center [place] [address] [place] [phone] Derrick Valenzuela MD [address] [place], [place] [address] 04/17/2024 9:00 AM CDT Virtual Visit [facility] [address] [place] [phone] Rocio Mccarthy MD [address] [place] [address] documented as of this encounter Visit Diagnoses Not on filedocumented in this encounter Additional Health Concerns Assessment Noted Time PHQ-9 Depression Total Score: 11 023 10:04 AM CDT documented as of this encounter Care Teams Facility Rehab Director Relationship Specialty Start Date End Date Billie Guadarrama PCP - General 12/17/19 Rocio Mccarthy MD [address] [place] [address] Assigned Endocrinology Provider 04/24/22 Erica Tristan MD [address] [place] [address] Assigned OBGYN Provider 08/06/23 documented as of this encounter
--- OUTSIDE RECORDS SUMMARY | 2023-11-24 07:30 | XMS_ITS | Encounter Summary ---
Author Name Unknown Organization [place] Address [address] [place] [address]. [place] [address] Care Team Providers Care Medical Assistant Instructor Name Role Phone Chiara Billie Primary Care Provider [phone] Rocio Mccarthy MD Unavailable [phone] Erica Tristan MD Unavailable [phone] Reason for Referral * Diagnostic Imaging Ultrasound (Routine) - Pending Review Specialty Diagnoses / Procedures Referred By Contac t Referred To Contact Radiology. Diagnoses growth restriction antepartum Procedures Maternal US OB Limited Zeynep/Erica Baldwin MD [address] [address] Referral ID Status Reason Start Date Expiration Date V isits Requested Visits Authorized [id number] Pending Review 10/28/2023 10/27/2024 1 1 NESS SERVICES ADMINISTRATOR Reason for Visit * Diagnostic Imaging Ultrasound (Routine) - Pending Review Specialty Diagnoses / Procedures Referred By Contac t Referred To Contact Radiology. Diagnoses growth restriction antepartum Procedures Maternal US OB Limited Zeynep/Erica Baldwin MD [address] [address] Referral ID Status Reason Start Date Expiration Date V isits Requested Visits Authorized [id number] Pending Review 10/28/2023 10/27/2024 1 1 Encounter Details Date Type Department Care Team (Latest Contact Info) Description 11/04/2023 2:49 PM BUSINESS SERVICES ADMINISTRATOR - 11/04/2023 11:59 PM BUSINESS SERVICES ADMINISTRATOR Hospital Encounter [facility] Maternal Medicine Center [place] [address] [facility] [address] [place] [address] Erica Tristan MD [address] [place] [address] Chelsie Gallagher MD [address] [place] [address] growth restriction antepartum Discharge Disposition: [...] Sex Assigned at Female 10/05/2020 9:54 PM BUSINESS SERVICES ADMINISTRATOR Gender Identity Female 10/05/2020 9:54 PM BUSINESS SERVICES ADMINISTRATOR Sexual Orientation Straight 10/05/2020 9: 54 PM BUSINESS SERVICES ADMINISTRATOR documented as of this encounter Medications at [...] st Contact Info) Description 12/12/2023 9:00 AM BUSINESS SERVICES ADMINISTRATOR Office Visit [facility] Maternal Medicine [facility] [address] [facility] [address] [place] [phone] Erica Tristan MD [address] [place], [place] [address] 12/12/2023 9:30 AM BUSINESS SERVICES ADMINISTRATOR Appointment [facility] Maternal Medicine [facility] [address] [place] [phone] Derrick Valenzuela MD [address] [place], [place] [address] 04/17/2024 9:00 AM CDT Virtual Visit [facility] [address] [facility] [address] [place] [phone] Rocio Mccarthy MD [address] [place], [place] [address] documented as of this encounter Procedures Procedure Name Priority Date/Time Associated Diagnosis Comments MFM US OB LIMITED SINGLE/MULTIPLE Routine 11/04/2023 3:38 PM BUSINESS SERVICES ADMINISTRATOR growth restriction antepartum documented in this encounter Results * Maternal US OB Limited Single/Multiple (11/04/2023 3:38 PM BUSINESS SERVICES ADMINISTRATOR) Anatomical Region Laterality Modality Ultrasound 11/04/2023 3:18 PM BUSINESS SERVICES ADMINISTRATOR Impressions 11/04/2023 5:17 PM BUSINESS SERVICES ADMINISTRATOR IMPRESSION ----- 1) Sebastian intrauterine at 32w 3d gestational age. 2) The NST is reactive. 3) The amniotic fluid volume appeared normal. 4) The UA Doppler is within normal limits. Narrative 11/04/2023 5:17 PM BUSINESS SERVICES ADMINISTRATOR ?Limited ----- Pat. Name: TAYLOR GARCIA ? Study Date: ??11/04/2023 3:18pm Pat. NO: ??[id number] ?Referring ??MD: SERGIO SONI Site: ??[facility] ? Tapping Machine Operator: Teresa Hernadez RDMS : ??1995 ?Age: ?? [...] - 11/08/2023 Limited ----- Pat. Name: TAYLOR GARCIA Study Date: 11/04/2023 3:18pm Pat. NO: [id number] Referring MD: SERGIO SONI Site: [facility] Tapping Machine Operator: Teresa Hernadez RDMS : 1995 Age: 28 [...] assessment (on 05/12/2023) 32 w + 3 12/27/2023 GENERAL EVALUATION ----- [...] is within normal limits. Erica Tristan MD [facility] US ORDERABLE S documented in this encounter Visit Diagnoses Diagnosis growth restriction antepartum documented in this encounter Additional Health Concerns Assessment Noted Time PHQ-9 Depression Total Score: 11 023 10:04 AM CDT documented as of this encounter Care Teams Medical Assistant Instructor Relationship Specialty Start Date End Date ChiaraBillie PCP - General 12/17/19 Rocio Mccarthy MD [address] [place] [address] Assigned Endocrinology Provider 04/24/22 Erica Tristan MD [address] [place] [address] Assigned OBGYN Provider 08/06/23 documented as of this encounter
--- OUTSIDE RECORDS SUMMARY | 2023-11-24 07:31 | XMS_ITS | Encounter Summary ---
Author Name Unknown Organization [place] Address [address] [place] [address]. [place] [address] Care Team Providers Care Drafter Cartographic Name Role Phone Selinsusan Billie Primary Care Provider [phone] Rocio Mccarthy MD Unavailable [phone] Erica Tristan MD Unavailable [phone] Reason for Referral * Diagnostic Imaging Ultrasound (Routine) - Pending Review Specialty Diagnoses / Procedures Referred By Emily douglas Referred To Contact Radiology. Diagnoses related condition, antepartum Procedures MFM US Comprehensive Single F/U Rosette Devlin MD [facility] [address] [place] [address] Fax: Referral ID Status Reason Start Date Expiration Date V isits Requested Visits Authorized [id number] Pending Review 10/25/2023 10/24/2024 1 1 CREAM DISPENSER * Consultation (Routine: Next available opening) - Pending Review Specialty Diagnoses / Procedures Referred By Emily douglas Referred To Contact Diagnoses related condition, antepartum Rosette Devlin MD [facility] [address] [place] [address] Fax: [facility] Maternal [facility] [address] [facility] [address] [place] [address] Referral ID Status Reason Start Date Expiration Date V isits Requested Visits Authorized [id number] Pending Review 10/25/2023 10/24/2024 1 1 Question Answer [facility] [place] [facility] 12/27/2023 Ultrasound Comprehensive US (>than 18 weeks GA) US PROC NONE MFM Issue Abnormal Ultrasound Findings (enter details in Comments) - IUGR MFM MD Consultation (unrelated to Ultrasound findings): No Inflammatory Bowel Disease Clinic: Joint MFM and GI Consultation: No Chronic Kidney Disease: Joint MFM and Nephrology Consultation No Genetic Counseling Consultation: No fax Rosette Devlin [facility] [phone] Comments There is no height or weight on file to calculate BMI. >> Patient may proceed with recommendations for further testing as directed by the Maternal Medicine Specialist >> >> If requesting Echo: MFM will determine appropriate location for exam due to indication. Please be aware that coverage of these services is subject to the terms and limitations of your health insurance plan. Call member services at your health plan with any benefit or coverage questions. CREAM DISPENSER Encounter Details Date Type Department Care Team (Latest Contact Info) Description 10/25/2023 Transcribe Orders [facility] Maternal Medicine Center [place] [address] [facility] [address] [place] [address] Rosette Devlin MD [address] [address] related condition, antepartum (Primary Dx) Social History [...] Sex Assigned at Female 10/05/2020 9:54 PM ICE CREAM DISPENSER Gender Identity Female 10/05/2020 9:54 PM ICE CREAM DISPENSER Sexual Orientation Straight 10/05/2020 9: 54 PM ICE CREAM DISPENSER documented as of this encounter Plan of Treatment Upcoming Encounters Date Type Department Care Team (Late st Contact Info) Description 12/12/2023 9:00 AM ICE CREAM DISPENSER Office Visit [facility] M[facility] Medicine [facility] [place] [address] [place] [phone] Erica Tristan MD [address] [place], [place] [address] 12/12/2023 9:30 AM ICE CREAM DISPENSER Appointment [facility] Maternal Medicine [facility] [address] [place] [phone] Derrick Valenzuela MD [address] [place], [place] [address] 04/17/2024 9:00 AM CDT Virtual Visit [facility] [address] [place] [phone] Rocio Mccarthy MD [address] [place], [place] [address] Scheduled Referrals Name Type Priority Associated Diagnoses Orde r Schedule [facility] Med Ctr Referral - Referral Routine: Next available opening related condition, antepartum Expected: 10/25/2023 (Approximate), Expires: 04/22/2024 documented as of this encounter Results * MFM US Comprehensive Single F/U (10/28/2023 11:59 AM ICE CREAM DISPENSER) Anatomical Region Laterality Modality Ultrasound 10/28/2023 11:3 3 AM ICE CREAM DISPENSER Impressions 10/28/2023 5:12 PM ICE CREAM DISPENSER IMPRESSION ----- 1. Sebastian intrauterine at 31w [...] as documented above. Narrative 10/28/2023 5:12 PM ICE CREAM DISPENSER ?Comp Follow Up ----- Pat. Name: TAYLOR GARCIA ? Study Date: ??10/28/2023 11:33am Pat. NO: ??[id number] ?Referring ??: ROSETTE DEVLIN Site: ??[facility] ? Maintenance Mechanic Supervisor: Marie Ford RDMS : ??1995 ?Age: ?? [...] 3 lb 5 ?oz EFW by ?Hadlock ([id number]) Head / Face / Neck Biometry: Casting Room Operator ? 11.0 ?mm CM ?4.6 ? mm [...] view. RVOT view. LVOT view. 3-vessel view. 8-pfmaap-tjungro view. ? Diaphragm. Abdomen ? Stomach. Kidneys. [...] medical record, and communicating with other health team primary care physician and/or care coordination. Procedure Note Erica Tristan MD - 10/28/2023 Comp Follow Up ----- Pat. Name: TAYLOR GARCIA Study Date: 10/28/2023 11:33am Pat. NO: [id number] Referring MD: ROSETTE DEVLIN Site: [facility] Maintenance Mechanic Supervisor: Marie Ford RDMS : 1995 Age: 28 [...] assessment (on 05/12/2023) 31 w + 3 12/27/2023 GENERAL EVALUATION ----- [...] 3 lb 5 oz EFW by Hadlock ([id number]) Head / Face / Neck Biometry: Casting Room Operator 11.0 mm CM 4.6 mm ANATOMY ----- The following structures appear abnormal: Head / Neck Right lateral ventricle:ventriculomegaly. Left lateral ventricle: ventriculomegaly. The following structures appear normal: Head / Neck Cranium. Head size. Head shape.Midline falx. Cavum septi pellucidi. Cerebellum. Cisterna magna. Thalami.Vermis. Face Profile. Nose. Heart / Thorax 4-chamber view. RVOT view. LVOT view.3-vessel view. 7-mkvwhk-zzscurl view. Diaphragm. Abdomen Stomach. Kidneys. Bladder. Spine [...] quadrant. Entries uterus: 1 Sample: obtained. Sample ml. Sample quality: clear yellow Sample identificationconfirmed [...] electronic medical record, andcommunicating with other health team primary care physician and/or carecoordination. IMPRESSION ----- 1. Sebastian intrauterine [...] amniocentesis as documented above. Rosette Devlin MD [facility] US ORDERABLE S documented in this encounter Visit Diagnoses Diagnosis related condition, antepartum- Primary related condition, antepartum documented in this encounter Additional Health Concerns Assessment Noted Time PHQ-9 Depression Total Score: 11 023 10:04 AM CDT documented as of this encounter Care Teams Drafter Cartographic Relationship Specialty Start Date End Date Billie Guadarrama PCP - General 12/17/19 Rocio Mccarthy MD [address] [place], [place] [address] Assigned Endocrinology Provider 04/24/22 Erica Tristan MD [address] [place] [address] Assigned OBGYN Provider 08/06/23 documented as of this encounter
--- OUTSIDE RECORDS SUMMARY | 2023-11-24 07:31 | XMS_ITS | Encounter Summary ---
Author Name Unknown Organization [place] Address [address] [place] [address]. 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 [place] [address] Appointment [phone] [place]: Tuesday - Increase levothyroxine to 200 mcg/day [...] whole. Do not cut or crush it. ARY CARE PHYSICIAN documented in this encounter Progress Notes * Rocio Mccarthy MD - 10/18/2023 9:30 AM CST THIS IS A VIDEO VISIT: Phone call visit/virtual visit encounter: Name of patient: Altagracia Garcia Date of encounter: 10/18/2023 Time of start of video visit: 9:30 Video started: 9:41 Video ended: 9:48 Provider location: working from home/ [facility] Patient location: patients home. Mode of transmission: [...] Was requested to see endocrinology by her DRUG SAFETY ASSISTANT from [place]. Available records, labs and images from outside [...] or cold intolerance: sometimes cold History of [place] or Amiodarone use:No Head or neck surgery/radiation:No [...] ENT SURGERY 2014 tonsils, adenoids, wisdom teeth DENTAL OFFICE RECEPTIONIST SURGERY 2019 ovarian cyst removed HEAD & [...] noted in AVS Rocio Mccarthy MD Endocrinology [facility]/[place] CC: Billie Guadarrama All questions were answered. The patient indicates understanding of the above issues and agrees with the plan set forth. ARY CARE PHYSICIAN documented in this encounter Nursing Notes * Jina Blake - 10/18/2023 9:30 AM CST Is the patient currently in the state of [place]? YES Visit mode:VIDEO If the visit is dropped, the patient can be reconnected by: VIDEO VISIT: Text to cell phone: Telephone Information: Will anyone else be joining the visit? NO (If patient encounters technical issues they should call [phone] :[phone]) How would you like to obtain your AVS? MyChart Are changes needed to the allergy or medication list? No Reason for visit: RECHECK Jina Blake VVF ARY CARE PHYSICIAN documented in this encounter Plan of Treatment Upcoming Encounters Date Type Department Care Team (Late st Contact Info) Description 12/12/2023 9:00 AM PRIMARY CARE PHYSICIAN Office Visit [facility] Maternal Medicine [facility] [address] [place] [phone] Erica Tristan MD [address] [place], [place] [address] 12/12/2023 9:30 AM PRIMARY CARE PHYSICIAN Appointment [facility] Maternal Medicine [facility] [address] [place] [phone] Derrick Valenzuela MD [address] [place], [place] [address] 04/17/2024 9:00 AM CDT Virtual Visit [facility] [address] [place] [phone] Rocio Mccarthy MD [address] [place] [address] Scheduled Orders Name Type Priority Associated Diagnoses [...] as of this encounter Care Teams Clinical Research Specialist Relationship Specialty Start Date End Date Selinsusan Billie PCP - General 12/17/19 Rocio Mccarthy MD [address] [place] [address] Assigned Endocrinology Provider 04/24/22 Erica Tristan MD [address] [place], [place] [address] Assigned OBGYN Provider 08/06/23 documented as of this encounter
--- OUTSIDE RECORDS SUMMARY | 2023-11-24 07:31 | XMS_ITS | Encounter Summary ---
Author Name Unknown Organization [place] Address [address] [place] [address]. [place] [address] Care Team Providers Care Music Manager Name Role Phone Chiara Billie Primary Care Provider [phone] Rocio Mccarthy MD Unavailable [phone] Erica Tristan MD Unavailable Encounter Details Date [...] Sex Assigned at Female 10/05/2020 9:54 PM CITRIX ENGINEER Gender Identity Female 10/05/2020 9:54 PM CITRIX ENGINEER Sexual Orientation Straight 10/05/2020 9: 54 PM CITRIX ENGINEER documented as of this encounter Plan of Treatment Upcoming Encounters Date Type Department Care Team ( Contact Info) Description 12/12/2023 9:00 AM CITRIX ENGINEER Office Visit [facility] Maternal Medicine [facility] [address] [place] [phone] Erica Tristan MD [address] [place] [address] 12/12/2023 9:30 AM CITRIX ENGINEER Appointment [facility] Medicine [facility] [address] [place] [phone] Derrick Valenzuela MD [address] [place], [place] [address] 04/17/2024 9:00 AM CDT Virtual Visit [place] [address] [place] [phone] Rocio Mccarthy MD [address] [place] [address] documented as of this encounter Visit Diagnoses Not on filedocumented in this encounter Additional Health Concerns Assessment Noted Time PHQ-9 Depression Total Score: 11 023 10:04 AM CDT documented as of this encounter Care Teams Music Manager Relationship Specialty Start Date End Date Billie Guadarrama PCP - General 12/17/19 Rocio Mccarthy MD [address] [place] [address] Assigned Endocrinology Provider 04/24/22 Erica Tristan MD [address] [place] [address] Assigned OBGYN Provider 08/06/23 documented as of this encounter
--- OUTSIDE RECORDS SUMMARY | 2023-11-24 07:31 | XMS_ITS | Encounter Summary ---
Author Name Unknown Organization [place] Address [address] [place] [address]. [place] [address] Care Team Providers Care Hose Builder Name Role Phone Selinsusan Billie Primary Care Provider [phone] Rocio Mccarthy MD Unavailable [phone] Erica Tristan MD Unavailable [phone] Encounter Details Date Type Department Care Team (Late st Contact Info) Description 10/18/[address] [facility] [address] [facility] [address] [place] [address] Chelita Harrell, [facility] Social History Tobacco Use Types Packs/Day Years [...] Sex Assigned at Female 10/05/2020 9:54 PM BODY REPAIRER Gender Identity Female 10/05/2020 9:54 PM BODY REPAIRER Sexual Orientation Straight 10/05/2020 9: 54 PM BODY REPAIRER documented as of this encounter Plan of Treatment Upcoming Encounters Date Type Department Care Team (Late st Contact Info) Description 12/12/2023 9:00 AM BODY REPAIRER Office Visit [facility] Medicine [facility] [address] [place] [address] Erica Tristan MD [address] [place] [address] 12/12/2023 9:30 AM BODY REPAIRER Appointment [place] [address] [place] [phone] Derrick Valenzuela MD [address] [place] [address] 04/17/2024 9:00 AM CDT Virtual Visit [facility] [address] [place] [place] [phone] Rocio Mccarthy MD [address] [place] [address] documented as of this encounter Visit Diagnoses Not on filedocumented in this encounter Additional Health Concerns Assessment Noted Time PHQ-9 Depression Total Score: 11 023 10:04 AM CDT documented as of this encounter Care Teams Hose Builder Relationship Specialty Start Date End Date Billie Guadarrama PCP - General 12/17/19 Rocio Mccarthy MD [address] [place] [address] Assigned Endocrinology Provider 04/24/22 Erica Tristan MD [address] [address] [place] [address] Assigned OBGYN Provider 08/06/23 documented as of this encounter
--- OUTSIDE RECORDS SUMMARY | 2023-11-24 07:31 | XMS_ITS | Encounter Summary ---
Author Name Unknown Organization [place] Address [address] [place] [address]. [place] [address] Care Team Providers Care Seaming Inspector Name Role Phone Billie Guadarrama Primary Care Provider Rocio Mccarthy MD Unavailable [phone] Erica Tristan MD Unavailable [phone] Encounter Details Date Type Department Care Team (Late st Contact Info) Description 08/15/2023 MyC Medical Advice [facility] [address] [facility] [address] [place] [address] Rocio Mccarthy MD [address] [place] [address] Social History Tobacco Use Types [...] Sex Assigned at Female 10/05/2020 9:54 PM FURNITURE MAKER Gender Identity Female 10/05/2020 9:54 PM FURNITURE MAKER Sexual Orientation Straight 10/05/2020 9: 54 PM FURNITURE MAKER documented as of this encounter Miscellaneous Notes * Telephone Encounter - Jina Harrell RN - 08/15/2023 9:07 AM FURNITURE MAKER Recommend close follow-up during --recommend lab every 2-3 months during or sooner based on dose adjustment given history of fluctuating labs she needs close follow-up. Follow-up with endocrinology after delivery. ITURE MAKER documented in this encounter Plan of Treatment Upcoming Encounters Date Type Department Care Team (Late st Contact Info) Description 12/12/2023 9:00 AM FURNITURE MAKER Office Visit [facility] Maternal Medicine [facility] [address] [place] [phone] Erica Tristan MD [address] [place], [place] [address] 12/12/2023 9:30 AM FURNITURE MAKER Appointment [facility] Maternal Medicine [facility] [address] [place] [phone] Derrick Valenzuela MD [address] [place], [place] [address] 04/17/2024 9:00 AM CDT Virtual Visit [facility] [address] [place] [address] [place] [phone] Rocio Mccarthy MD [address] [place] [address] documented as of this encounter Visit Diagnoses Not on filedocumented in this encounter Additional Health Concerns Assessment Noted Time PHQ-9 Depression Total Score: 11 023 10:04 AM CDT documented as of this encounter Care Teams Seaming Inspector Relationship Specialty Start Date End Date Billie Guadarrama PCP - General 12/17/19 Rocio Mccarthy MD [address] [place], [place] [address] Assigned Endocrinology Provider 04/24/22 Erica Tristan MD [address] [place], [place] [address] Assigned OBGYN Provider 08/06/23 documented as of this encounter
--- OUTSIDE RECORDS SUMMARY | 2023-11-24 07:31 | XMS_ITS | Encounter Summary ---
Author Name Unknown Organization [place] Address [address] [place] [address]. [place] [address] Care Team Providers Care Veneer Drier Tailer Name Role Phone Chiara Billie Primary Care Provider Rocio Mccarthy MD Unavailable [phone] Encounter Details Date Type Department Care Team [...] Sex Assigned at Female 10/05/2020 9:54 PM RADIO OPERATOR Gender Identity Female 10/05/2020 9:54 PM RADIO OPERATOR Sexual Orientation Straight 10/05/2020 9: 54 PM RADIO OPERATOR documented as of this encounter Plan of Treatment Upcoming Encounters Date Type Department Care Team ( Contact Info) Description 12/12/2023 9:00 AM RADIO OPERATOR Office Visit [facility] Maternal Medicine [facility] [address] [place] [address] Erica Tristan MD [address] [place] [address] 12/12/2023 9:30 AM RADIO OPERATOR Appointment [facility] Medicine [facility] [address] [facility] [address] [place] [address] Derrick Valenzuela MD [address] [place] [address] 04/17/2024 9:00 AM CDT Virtual Visit [facility] [address] [place] [address] [place] [address] Rocio Mccarthy MD [address] [place] [address] documented as of this encounter Visit Diagnoses Not on filedocumented in this encounter Additional Health Concerns Assessment Noted Time PHQ-9 Depression Total Score: 11 023 10:04 AM CDT documented as of this encounter Care Teams Veneer Drier Tailer Relationship Specialty Start Date End Date Billie Guadarrama PCP - General 12/17/19 Rocio Mccarthy MD [address] [place] [address] Assigned Endocrinology Provider 04/24/22 documented as of this encounter
--- OUTSIDE RECORDS SUMMARY | 2023-11-24 07:31 | XMS_ITS | Encounter Summary ---
Author Name Unknown Organization [place] Address [address] [place] [address]. [place] [address] Care Team Providers Care Grain Distributor Name Role Phone Billie Guadarrama Primary Care Provider [phone] Rocio Mccarthy MD Unavailable [phone] Erica Tristan MD Unavailable [phone] Reason for Visit * Reason Comments Rule Out Labor * Auth/Cert (Routine) Specialty Diagnoses / Procedures Referred By Contac t Referred To Contact single needle operator Diagnoses Indication for care in labor or delivery Indication for care in labor or delivery [facility] [address] [place] [address] Referral ID Status Reason Start Date Expiration Date Visits Re quested Visits Authorized [id number] 1 1 Encounter Details Date Type Department Care Team (Late st Contact Info) Description 10/19/2023 11:54 AM VOCATIONAL PLACEMENT SPECIALIST - 10/20/2023 10:44 AM VOCATIONAL PLACEMENT SPECIALIST Hospital Encounter [facility] [address] [place] [address] Lisa Matthew MD [address] [place] [address] Idalmis Britt MD [facility] G[facility] [address] [place] [address] Simon Marcial MD [facility] [address] [place] [address] Indication for care in labor or delivery [...] Sex Assigned at Female 10/05/2020 9:54 PM VOCATIONAL PLACEMENT SPECIALIST Gender Identity Female 10/05/2020 9:54 PM VOCATIONAL PLACEMENT SPECIALIST Sexual Orientation Straight 10/05/2020 9: 54 PM VOCATIONAL PLACEMENT SPECIALIST documented as of this encounter Last Filed Vital Signs Vital Sign Reading Time Taken Comments Blood Pressure 116/58 10/20/2023 7:18 AM VOCATIONAL PLACEMENT SPECIALIST Pulse - - Temperature 36.6 ??C (97.9 ??F) 10/20/2023 7:18 AM CS T Respiratory Rate 16 10/20/2023 7:18 AM VOCATIONAL PLACEMENT SPECIALIST Oxygen Saturation 95% 10/20/2023 5:33 AM VOCATIONAL PLACEMENT SPECIALIST Inhaled Oxygen Concentration - - Weight 114.8 kg (253 lb) 10/19/2023 12:22 PM VOCATIONAL PLACEMENT SPECIALIST Height 165.1 cm (5' 5) 10/19/2023 12:22 PM VOCATIONAL PLACEMENT SPECIALIST Body Mass Index 42.1 10/19/2023 12:22 PM VOCATIONAL PLACEMENT SPECIALIST documented in this encounter Discharge Summaries * Simon Marcial MD - 10/20/2023 10:44 AM CST Admission 31 weeks for PTL with Hx PTD. Stabilized on Nifedepine and administered betamethasone. Treated for UTI. Ultrasound was obtained and showed growth restriction. Patient improved and wasdischarged on nifedepine and macrobid with follow up with transferring OB. TIONAL PLACEMENT SPECIALIST documented in this encounter Discharge Instructions * Discharge Instructions* Melida Bryant RN - 10/20/2023 9:21 AM VOCATIONAL PLACEMENT SPECIALIST Discharge Instruction for Undelivered Patients You were seen for: Labor Assessment transfer from [facility] We Consulted: OBGYN specialists You had (Test or Medicine): Electronic and uterine monitoring, ultrasound, lab work, urinalysis, SVE (sterile vaginal exam), Betamethasone steroids for lung maturation, oral Nifedipine for tocolysis, Macrobid for urinary tract infection Diet: Drink 8 to 12 glasses of liquids (milk, juice, water) every day. You may eat meals and snacks. Activity: Call your doctor or nurse elevator technician if your baby is moving less than [...] be seen on no later than next , October 27 in your primary OB clinic TIONAL PLACEMENT SPECIALIST documented in this encounter Medications at Time [...] 10/20/2023 7:59 AM CST OB HD 2 31 1/7wks Vss afeb Pt feeling better not feeling ctx Abd- NT NST R Rare ctx Cx- 2/60/-2 ballot Imp- PTL on Nifedepine. S/P MgS04 and first dose Betamethasone. Good response to nifedepine and reassuring cervical exam Plan- Check ultrasound. Discharge home on nifedepine after second dose betamethasone. F/U with OB 1week TIONAL PLACEMENT SPECIALIST documented in this encounter H&P Notes * Lisa Matthew MD - 10/19/2023 5:30 PM CST Admission H and P: S: Pt is a transfer to [facility] from [facility]. She has a history of PTC in prior pregnancyat 32 weeks without delivery until term. Today she started to note increase in contractions. Cervix was found to be 3 cm at [facility]. Theygave her BMZ, started nifedipine and Magnesium Sulfate and transferred her to [facility] for antepartummanagement. She has history of hypothyroidism, [...] profolaxis. Continue home medications. Lisa Matthew MD TIONAL PLACEMENT SPECIALIST documented in this encounter Miscellaneous Notes * Utilization Review - Miguel Castañeda MD - 10/20/2023 10:12 AM VOCATIONAL PLACEMENT SPECIALIST Admission Status; Secondary Review Determination Under the [...] FOR DETERMINATION 28-year-old female, a transfer from [facility], presented with a history of contractions in her prior at 32 weeks, which did not result in delivery until term. She experienced an increase in contractions and was found to have a 3 cm cervix at [facility]. Treatment initiated there included betamethasone, nifedipine, and magnesium sulfate. At [facility], she demonstrated a good response to nifedipine, [...] section 70.4. Sincerely, MIGUEL CASTAÑEDA MD System Housing InspectorsClient Strategist [facility]. TIONAL PLACEMENT SPECIALIST * Provider Notification - Melida Bryant RN [...] questions answered prior to leaving the unit. TIONAL PLACEMENT SPECIALIST * Provider Notification - Melida Bryant RN - 10/20/2023 7:57 AM CST 10/20/23 0757 Provider Notification Provider Name/Title Dr. Marcial Method of Notification At Bedside Dr. Marcial at bedside to see pt and discuss POC. updated that pt is comfortable and denying contractions this AM. Denies vag bldg, LOF, or any other symptoms at this time. FHT's cat I tracing. Fetus active per pt. SVE by MD and high. Plan for ultrasound for growth and amniotic fluid. Plan for pt to receive 2nd Betamethasone injection later this AM. Plan for pt to discharge to home around lunchtime with Rx's for Macrobid and Nifedipine. Plan to follow-up in her OB clinic within one week (or sooner,as needed). Will continue to monitor at this time. TIONAL PLACEMENT SPECIALIST * Plan of Care - Lexy Espinoza RN - 10/20/2023 6:43 AM CST Problem: Labor Goal: Delayed Delivery Intervention: Monitor and Manage Labor Recent Flowsheet Documentation Taken 10/19/20231944 by Lexy Espinoza RN Body Position: position [...] to Dr Britt. Will continue to monitor. TIONAL PLACEMENT SPECIALIST * Provider Notification - Neli Bains RN [...] MD to order Lovenox and PO nifedipine. TIONAL PLACEMENT SPECIALIST * Provider Notification - Neli Bains RN - 10/19/2023 1:00 PM CST 10/19/23 1256 Provider Notification Provider Name/Title Dr. Matthew Method of Notification Phone Request Evaluate - Remote Notification Reason Status Update;Patient Arrived;Uterine Activity MD notified of patient arrival since being transferred from [facility]. MD received reportfrom [facility] on patient previous Hx. MD was notified [...] MD said she willmeet with patient around [phone]. TIONAL PLACEMENT SPECIALIST * Care Plan - Neli Bains RN - 10/19/2023 12:00 PM CST Patient arrived at 1154 via EMS transfer from [facility]. Patient is a here for rule out labor. Report was given from [facility] RN at [address]. Will contact Dr[address] Matthew for orders. TIONAL PLACEMENT SPECIALIST documented in this encounter Plan of Treatment Upcoming Encounters Date Type Department Care Team (Late st Contact Info) Description 12/12/2023 9:00 AM VOCATIONAL PLACEMENT SPECIALIST Office Visit [facility] M[facility] [place] [address] [facility] [address] [place] [address] Erica Tristan MD [address] [place], [place] [address]E [facility] [address] [place] [address] 12/12/2023 9:30 AM VOCATIONAL PLACEMENT SPECIALIST Appointment [facility] Maternal Medicine [facility] [address] [place] [phone] Derrick Valenzuela MD [address] [place], [place] [address] 04/17/2024 9:00 AM CDT Virtual Visit [facility] [address] [place] [address] Rocio Mccarthy MD [address] [place], [place] [address] documented as of this encounter Procedures Procedure Name Priority Date/Time Associated Diagnosis Comments US OB FOLLOW UP >14 WEEKS STAT 10/20/2023 8:40 AM VOCATIONAL PLACEMENT SPECIALIST ROUTINE UA WITH MICROSCOPIC REFLEX TO CULTURE Routine 10/19/2023 10:30 PM VOCATIONAL PLACEMENT SPECIALIST URINE CULTURE STAT Add-on 10/19/2023 10:30 PM VOCATIONAL PLACEMENT SPECIALIST TYPE AND SCREEN, ADULT Timed 10/19/2023 1:22 PM VOCATIONAL PLACEMENT SPECIALIST ABO/RH TYPE AND SCREEN Timed 10/19/2023 1:22 PM VOCATIONAL PLACEMENT SPECIALIST documented in this encounter Results * US OB >14 Weeks Follow Up (10/20/2023 8:40 AM VOCATIONAL PLACEMENT SPECIALIST) Anatomical Region Laterality Modality Abdomen/Pelvis Ultrasound Impressions 10/20/2023 9:46 AM VOCATIONAL PLACEMENT SPECIALIST IMPRESSION: Single living intrauterine gestation of approximately 28 weeks 4 days gestation is estimated by ultrasound. ??Polyhydramnios. TRACEY FAUST MD SYSTEM ID: ??[id number] Narrative 10/20/2023 9:46 AM VOCATIONAL PLACEMENT SPECIALIST ULTRASOUND OBSTETRIC FOLLOW UP >14 WEEKS October [...] amniotic fluid volume. MVP is 8 cm, AHS is 24.5 cm. Placenta is posterior fundal [...] ultrasound. Polyhydramnios. TRACEY FAUST MD SYSTEM ID: [id number] Simon Marcial MD IMG US ORDERABLE S * Urine Culture (10/19/2023 10:30 PM VOCATIONAL PLACEMENT SPECIALIST) Culture 10,000-50,000 CFU/mL Mixture of Urogenital Daniella 10/21/2023 10:53 AM VOCATIONAL PLACEMENT SPECIALIST [facility] Urine URINE SPECIMEN OBTAINED BY CLEAN CATCH PROCEDURE / Unknown Non-blood Collection / Unknown 10/19/2023 10:30 PM VOCATIONAL PLACEMENT SPECIALIST 10/19/2023 10:39 PM VOCATIONAL PLACEMENT SPECIALIST Idalmis Britt MD LAB - MICRO GENERAL ORDERABLES [facility] Inf. Diseases Diag. Lab [address] [facility] [place] [address], [facility] [phone] * (ABNORMAL) UA with Microscopic reflex to Culture (10/19/2023 10:30 PM VOCATIONAL PLACEMENT SPECIALIST) Color Urine Straw Colorless, Straw, Light Yellow, Yellow 10/19/2023 10:46 PM VOCATIONAL PLACEMENT SPECIALIST LABORATORY Appearance Urine Clear Clear 10/19/19 10:46 PM VOCATIONAL PLACEMENT SPECIALIST LABORATORY Glucose Urine 300(A) Negative mg/dL 10/19/2023 10:46 PM VOCATIONAL PLACEMENT SPECIALIST LABORATORY Bilirubin Urine Negative Negative 10:46 PM VOCATIONAL PLACEMENT SPECIALIST LABORATORY Ketones Urine Negative Negative mg/dL 10/19/2023 10:46 PM VOCATIONAL PLACEMENT SPECIALIST LABORATORY [place] Urine 1.011 1.003 - 1.035 10/19/2023 10:46 PM VOCATIONAL PLACEMENT SPECIALIST LABORATORY Blood Urine Negative Negative 10/19/2023 10:46 PM VOCATIONAL PLACEMENT SPECIALIST LABORATORY pH Urine 5.5 5.0 - 7.0 10/19/2023 10:46 PM VOCATIONAL PLACEMENT SPECIALIST LABORATORY Protein Albumin Urine Negative Negative mg/dL 10/19/2023 10:46 PM VOCATIONAL PLACEMENT SPECIALIST LABORATORY Urobilinogen Urine Normal Normal, 2.0 mg/dL 10/19/2023 10:46 PM VOCATIONAL PLACEMENT SPECIALIST LABORATORY Nitrite Urine Negative Negative 10/19/2023 10:46 PM VOCATIONAL PLACEMENT SPECIALIST LABORATORY Leukocyte Esterase Urine Negative Negative 10/19/2023 10:46 PM VOCATIONAL PLACEMENT SPECIALIST LABORATORY Mucus Urine Present(A) None Seen /LPF 10/19/2023 10:46 PM VOCATIONAL PLACEMENT SPECIALIST LABORATORY RBC Urine 1 <=2 /HPF 10/19/2023 10:46 PM VOCATIONAL PLACEMENT SPECIALIST LABORATORY WBC Urine 2 <=5 /HPF 10/19/2023 10:46 PM VOCATIONAL PLACEMENT SPECIALIST LABORATORY Squamous Epithelials Urine 2(H) <=1 /HPF 10/19/2023 10:46 PM VOCATIONAL PLACEMENT SPECIALIST LABORATORY Urine URINE SPECIMEN OBTAINED BY CLEAN CATCH PROCEDURE / Unknown Non-blood Collection / Unknown 10/19/2023 10:30 PM VOCATIONAL PLACEMENT SPECIALIST 10/19/2023 10:39 PM VOCATIONAL PLACEMENT SPECIALIST Narrative LABORATORY - 10/19/2023 10:46 PM VOCATIONAL PLACEMENT SPECIALIST Urine Culture not indicated Idalmis Britt MD LAB - URINE ORDERABL ES LABORATORY [facility] [address] Lab (1st floor, no room number) [place] [address] [phone] * Adult Type and Screen (10/19/2023 1:22 PM VOCATIONAL PLACEMENT SPECIALIST) ABO/RH(D) B POS 10/19/2023 1:12 PM VOCATIONAL PLACEMENT SPECIALIST RH BLOOD BANK Antibody Screen Negative Negative 10/19/2023 1:12 PM VOCATIONAL PLACEMENT SPECIALIST RH BLOOD BANK SPECIMEN EXPIRATION DATE [id number] 10/19/2023 1:12 PM VOCATIONAL PLACEMENT SPECIALIST RH BLOOD BANK Blood STRUCTURE OF RIGHT UPPER LIMB / Unknown Venipuncture / Unknown 10/19/2023 1:22 PM VOCATIONAL PLACEMENT SPECIALIST 10/19/2023 1:27 PM VOCATIONAL PLACEMENT SPECIALIST Lisa Matthew MD LAB - BLOOD BANK DUTCH T ORDER RH BLOOD BANK [address] [place] [address], [facility] documented in this encounter Visit Diagnoses Diagnosis [...] exceed 4 grams/day. $Given 10/19/2023 4:03 PM VOCATIONAL PLACEMENT SPECIALIST 650 mg betamethasone acet & sod phos (CELESTONE) injection 12 mg 12 mg, Intramuscular, EVERY 24 HOURS, First dose on Tue10/20/23 at 1030, For 1 dose, Antepartum $Given 10/20/2023 10:31 AM VOCATIONAL PLACEMENT SPECIALIST 12 mg calcium gluconate 10 % injection [...] Tue10/19/23 at 2100 $Given 10/19/2023 9:23 PM VOCATIONAL PLACEMENT SPECIALIST 40 mg Right Lower Abdomen lactated ringers infusion at 75-125 mL/hr, Intravenous, CONTINUOUS, Antepartum, Starting on Tue10/19/23 at 1330, Until Tue10/20/23 at 1244 Rate/Dose Verify 10/19/2023 7:20 PM VOCATIONAL PLACEMENT SPECIALIST 75 mL/hr $New Bag 10/19/2023 1:34 PM VOCATIONAL PLACEMENT SPECIALIST 75 mL/hr levothyroxine (SYNTHROID/LEVOTHROID) tablet 200 mcg 200 mcg, Oral, EVERY MORNING BEFORE BREAKFAST, First dose on Tue10/20/23 at 0500, Separate oral administration of iron- or calcium-containing products and levothyroxine by at least 4 hours. $Given 10/20/2023 5:34 AM VOCATIONAL PLACEMENT SPECIALIST 200 mcg magnesium sulfate infusion 2 g/hr (50 mL/hr), Intravenous, CONTINUOUS, Starting on Tue10/19/23 at 1400, Indication: neuroprotection. ~Contact provider 12 hours after start of infusion to discuss continuation of magnesium infusion. ~Discontinue if delivery occurs., Antepartum Rate/Dose Verify 10/19/2023 7:20 PM VOCATIONAL PLACEMENT SPECIALIST 2 g/hr 50 mL/hr $New Bag 10/19/2023 1:27 PM VOCATIONAL PLACEMENT SPECIALIST 2 g/hr 50 mL/hr NIFEdipine (PROCARDIA) capsule 10 mg 10 mg, Oral, EVERY 6 HOURS SCHEDULED, First dose on Tue10/19/23 at 1800 $Given 10/20/2023 10:32 AM VOCATIONAL PLACEMENT SPECIALIST 10 mg $Given 10/20/2023 5:34 AM VOCATIONAL PLACEMENT SPECIALIST 10 mg $Given 10/19/2023 11:37 PM VOCATIONAL PLACEMENT SPECIALIST 10 mg nitroFURantoin macrocrystal-monohydrate (MACROBID) capsule 100 mg Routine, 100 mg, Oral, EVERY 12 HOURS SCHEDULED, First dose on Tue10/19/23 at 2230, For 7 days, Indications: Urinary Tract Infection $Given 10/20/2023 7:26 AM VOCATIONAL PLACEMENT SPECIALIST 100 mg $Given 10/19/2023 10:44 PM VOCATIONAL PLACEMENT SPECIALIST 100 mg No Tdap Needed - Assessment: Patient does not need Tdap vaccine CONTINUOUS PRN, Starting on Tue10/19/23 at 1311, Until Tue10/20/23 at 1244, Assessment: Patient does not need [...] Tue10/19/23 at 2200 $Given 10/19/2023 10:44 PM VOCATIONAL PLACEMENT SPECIALIST 200 mg documented in this encounter Active and Recently Administered Medications Times are shown in VOCATIONAL PLACEMENT SPECIALIST. Scheduled Medication Order 10/18/2023 10/19/2023 10/20/2023 betamethasone [...] First dose on Tue10/20/23 at 0900, Antepartum 0905 (Not Given - Provider: Melida Bryant RN - Reason: Other) progesterone (PROMETRIUM) capsule 200 mg 200 mg, Vaginal, DAILY, First dose on Tue10/19/23 at 2200 2244 ($Given - Provider: Lexy Espinoza RN) Continuous Medication Order 10/18/2023 10/19/2023 10/20/2023 lactated ringers infusion at 75-125 mL/hr, Intravenous, CONTINUOUS, Antepartum, Starting on Tue10/19/23 at 1330, Until Tue10/20/23 at 1244 1334 ($New Bag - Provider: Neli Bains RN)1920 (Rate/Dose Verify - Provider: Lexy Espinoza RN)2249 (Stopped - Provider: Lexy Epsinoza RN) magnesium sulfate infusion 2 g/hr (50 mL/hr), Intravenous, CONTINUOUS, Starting on Tue10/19/23 at 1400, Indication: neuroprotection. ~Contact provider 12 hours after start of infusion to discuss continuation of magnesium infusion. ~Discontinue if delivery occurs., Antepartum 1327 ($New Bag - Provider: Neli Bains RN)1920 (Rate/Dose Verify - Provider: Lexy Espinoza RN)2248 (Stopped - Provider: Lexy Espinoza RN) PRN [...] documented as of this encounter Care Teams Grain Distributor Relationship Specialty Start Date End Date Billie Guadarrama PCP - General 12/17/19 Rocio Mccarthy MD [address] [facility] [address] [place] [address] Assigned Endocrinology Provider 04/24/22 Erica Tristan MD [address] [address] Assigned OBGYN Provider 08/06/23 documented as of this encounter
--- OUTSIDE RECORDS SUMMARY | 2023-11-24 07:31 | XMS_ITS | Encounter Summary ---
Author Name Unknown Organization [facility] Address [address] [place] [address]. [place] [address] Care Team Providers Care Game Designer/Creative Director Name Role Phone Billie Guadarrama Primary Care Provider [phone] Rocio Mccarthy MD Unavailable Erica Tristan MD Unavailable [phone] Encounter Details Date Type Department Care Team (Late st Contact Info) Description 10/09/2023 MyC Medical Advice [facility] [address] [facility] [address] [place] [address] Rocio Mccarthy MD [address] [place] [address] Social History Tobacco Use Types [...] Sex Assigned at Female 10/05/2020 9:54 PM DIE PRESS OPERATOR Gender Identity Female 10/05/2020 9:54 PM DIE PRESS OPERATOR Sexual Orientation Straight 10/05/2020 9: 54 PM DIE PRESS OPERATOR documented as of this encounter Miscellaneous Notes * Telephone Encounter - Nahed Woodruff - 10/12/2023 10:36 AM CST Appointment scheduled. PRESS OPERATOR * Telephone Encounter - Rocio Mccarthy MD - 10/11/2023 10:51 AM DIE PRESS OPERATOR Ok for ANGÉLICA at this time. Please [...] if you need any help with scheduling. PRESS OPERATOR documented in this encounter Plan of Treatment Upcoming Encounters Date Type Department Care Team (Late st Contact Info) Description 12/12/2023 9:00 AM DIE PRESS OPERATOR Office Visit [facility] Maternal Medicine [facility] [address] [facility] [address] [place] [phone] Erica Tristan MD [address] [place] [address] 12/12/2023 9:30 AM DIE PRESS OPERATOR Appointment [facility] Maternal Medicine [facility] [address] [place] [phone] Derrick Valenzuela MD [address] [place] [address] 04/17/2024 9:00 AM CDT Virtual Visit [facility] [address] [place] [phone] Rocio Mccarthy MD [address] [place] [address] documented as of this encounter Visit Diagnoses Not on filedocumented in this encounter Additional Health Concerns Assessment Noted Time PHQ-9 Depression Total Score: 11 023 10:04 AM CDT documented as of this encounter Care Teams Game Designer/Creative Director Relationship Specialty Start Date End Date Billie Guadarrama PCP - General 12/17/19 Rocio Mccarthy MD [address] [place] [address] Assigned Endocrinology Provider 04/24/22 Erica Tristan MD [address] [place], [place] [address] Assigned OBGYN Provider 08/06/23 documented as of this encounter
--- OUTSIDE RECORDS SUMMARY | 2023-11-24 07:31 | XMS_ITS | Encounter Summary ---
Author Name Unknown Organization [facility] Address [address] [place] [address]. 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 [...] Sex Assigned at Female 10/05/2020 9:54 PM SUPERVISOR CONCRETE STONE FABRICATING Gender Identity Female 10/05/2020 9:54 PM SUPERVISOR CONCRETE STONE FABRICATING Sexual Orientation Straight 10/05/2020 9: 54 PM SUPERVISOR CONCRETE STONE FABRICATING documented as of this encounter Plan of Treatment Upcoming Encounters Date Type Department Care Team (Late st Contact Info) Description 12/12/2023 9:00 AM SUPERVISOR CONCRETE STONE FABRICATING Office Visit [facility] [address] [place] [address] Erica Tristan MD [address] [place], [place] [address] 12/12/2023 9:30 AM SUPERVISOR CONCRETE STONE FABRICATING Appointment [facility] [address] [place] [phone] Derrick Valenzuela MD [address] [place], [place] [address] 04/17/2024 9:00 AM CDT Virtual Visit [facility] [address] [place] [address] Rocio Mccarthy MD [address] [place], [place] [address] documented as of this encounter Procedures Procedure Name Priority Date/Time Associated Diagnosis Comments TSH Routine 10/11/2023 3:40 PM SUPERVISOR CONCRETE STONE FABRICATING 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 T4 FREE Routine 10/11/2023 3:40 PM SUPERVISOR CONCRETE STONE FABRICATING 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 T3 FREE Routine 10/11/2023 3:40 PM SUPERVISOR CONCRETE STONE FABRICATING 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, [address] [place] [address], [facility] [phone] * T3 Free (10/11/2023 3:40 PM SUPERVISOR CONCRETE STONE FABRICATING) T3 Free 2.7 2.0 - 4.4 pg/mL 10/11/2023 10:16 PM SUPERVISOR CONCRETE STONE FABRICATING [facility] Blood BLOOD SPECIMEN / Unknown Venipuncture / Unknown 10/11/2023 3:40 PM SUPERVISOR CONCRETE STONE FABRICATING 10/11/2023 3:40 PM SUPERVISOR CONCRETE STONE FABRICATING Narrative Authorizing Provider Result Brian Mccarthy MD LAB - BLOOD ORDER [facility] [address] [facility], [address] [place] [address], [facility] [phone] * T4 free (10/11/2023 3:40 PM SUPERVISOR CONCRETE STONE FABRICATING) Free T4 1.05 0.90 - 1.70 ng/dL 10/11/2023 10:16 PM SUPERVISOR CONCRETE STONE FABRICATING [facility] Blood BLOOD SPECIMEN / Unknown Venipuncture / Unknown 10/11/2023 3:40 PM SUPERVISOR CONCRETE STONE FABRICATING 10/11/2023 3:40 PM SUPERVISOR CONCRETE STONE FABRICATING Narrative Authorizing Provider Result Brian Mccarthy MD LAB - BLOOD ORDER [facility] Lab [address] 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
--- OUTSIDE RECORDS SUMMARY | 2023-11-24 07:31 | XMS_ITS | Encounter Summary ---
Author Name Unknown Organization [facility] Address [address] [place] [address]. [place] [address] Care Team Providers Care Dsp Engineer Name Role Phone Chiara Billie Primary Care Provider [phone] Rocio Mccarthy MD Unavailable Erica Tristan MD Unavailable [phone] Encounter Details Date Type Department Care [...] Sex Assigned at Female 10/05/2020 9:54 PM VALIDATION SCIENTIST Gender Identity Female 10/05/2020 9:54 PM VALIDATION SCIENTIST Sexual Orientation Straight 10/05/2020 9: 54 PM VALIDATION SCIENTIST documented as of this encounter Plan of Treatment Upcoming Encounters Date Type Department Care Team ( Contact Info) Description 12/12/2023 9:00 AM VALIDATION SCIENTIST Office Visit [facility] Maternal Medicine [facility] [address] [place] [address] Erica Tristan MD [address] [place] [address] 12/12/2023 9:30 AM VALIDATION SCIENTIST Appointment [facility] [address] [place] [address] Derrick Valenzuela MD [address] [place], [place] [address] 04/17/2024 9:00 AM CDT Virtual Visit [facility] [address] [place] [address] Rocio Mccarthy MD [address] [place] [address] documented as of this encounter Visit Diagnoses Not on filedocumented in this encounter Additional Health Concerns Assessment Noted Time PHQ-9 Depression Total Score: 11 023 10:04 AM CDT documented as of this encounter Care Teams Dsp Engineer Relationship Specialty Start Date End Date Billie Guadarrama PCP - General 12/17/19 Rocio Mccarthy MD [address] [place] [address] Assigned Endocrinology Provider 04/24/22 Erica Tristan MD [address] [place] [address] Assigned OBGYN Provider 08/06/23 documented as of this encounter
--- OUTSIDE RECORDS SUMMARY | 2023-11-24 07:31 | XMS_ITS | Encounter Summary ---
Author Name Unknown Organization [facility] Address [address] [place] [address]. [place] [address] Care Team Providers Care Airplane Captain Name Role Phone Chiara Billie Primary Care Provider [phone] Rocio Mccarthy MD Unavailable [phone] Erica Tristan MD Unavailable [phone] Encounter Details Date Type Department Care [...] Sex Assigned at Female 10/05/2020 9:54 PM MELT DOWN FURNACE OPERATOR Gender Identity Female 10/05/2020 9:54 PM MELT DOWN FURNACE OPERATOR Sexual Orientation Straight 10/05/2020 9: 54 PM MELT DOWN FURNACE OPERATOR documented as of this encounter Plan of Treatment Upcoming Encounters Date Type Department Care Team ( Contact Info) Description 12/12/2023 9:00 AM MELT DOWN FURNACE OPERATOR Office Visit [facility] Maternal Medicine [facility] [address] [place] [phone] Erica Tristan MD [address] [place] [address] 12/12/2023 9:30 AM MELT DOWN FURNACE OPERATOR Appointment [facility] [address] [place] [address] Derrick Valenzuela MD [address] [place], [place] [address] 04/17/2024 9:00 AM CDT Virtual Visit [facility] [address] [place] [address] Rocio Mccarthy MD [address] [place] [address] documented as of this encounter Visit Diagnoses Not on filedocumented in this encounter Additional Health Concerns Assessment Noted Time PHQ-9 Depression Total Score: 11 023 10:04 AM CDT documented as of this encounter Care Teams Airplane Captain Relationship Specialty Start Date End Date Billie Guadarrama PCP - General 12/17/19 Rocio Mccarthy MD [address] [place] [address] Assigned Endocrinology Provider 04/24/22 Erica Tristan MD [address] [place] [address] Assigned OBGYN Provider 08/06/23 documented as of this encounter
--- OUTSIDE RECORDS SUMMARY | 2023-11-24 07:31 | XMS_ITS | Encounter Summary ---
Author Name Unknown Organization [facility] Address [address] [place] [address]. [place] [address] Care Team Providers Care Motor Runner Name Role Phone Billie Guadarrama Primary Care Provider [phone] Rocio Mccarthy MD Unavailable [phone] Erica Tristan MD Unavailable [phone] Encounter Details Date Type Department Care Team (Late st Contact Info) Description 08/24/2023 MyC Medical Advice [facility] [address] [facility] [address] [place] [address] Rocio Mccarthy MD [address] [place] [address] Social History Tobacco Use Types [...] Sex Assigned at Female 10/05/2020 9:54 PM HSE ADVISOR Gender Identity Female 10/05/2020 9:54 PM HSE ADVISOR Sexual Orientation Straight 10/05/2020 9: 54 PM HSE ADVISOR documented as of this encounter Miscellaneous Notes * Telephone Encounter - Rocio Mccarthy MD - 08/26/2023 10:48 AM HSE ADVISOR Latest Ref Rng 08/23/2023 1:26 PM ENDO [...] 1 week after that to discuss results. ADVISOR * Telephone Encounter - Ramya Lugo RN - 08/24/2023 11:51 AM CST In response to lab comments 08/23/23: Thyroid labs are in acceptable range. How many weeks are you so far? How are you feeling? ADVISOR documented in this encounter Plan of Treatment Upcoming Encounters Date Type Department Care Team (Late st Contact Info) Description 12/12/2023 9:00 AM HSE ADVISOR Office Visit [facility] [address] [facility] [address] [place] [address] Erica Tristan MD [address] [facility] [address] [place] [address] 12/12/2023 9:30 AM HSE ADVISOR Appointment [facility] [address] [place] [address] Derrick Valenzuela MD [address] [place], [place] [address] 04/17/2024 9:00 AM CDT Virtual Visit [facility] [address] [place] [address] Rocio Mccarthy MD [address] [place] [address] documented as of this encounter Visit Diagnoses Not on filedocumented in this encounter Additional Health Concerns Assessment Noted Time PHQ-9 Depression Total Score: 11 023 10:04 AM CDT documented as of this encounter Care Teams Motor Runner Relationship Specialty Start Date End Date Billie Guadarrama PCP - General 12/17/19 Rocio Mccarthy MD [address] [place] [address] Assigned Endocrinology Provider 04/24/22 Erica Tristan MD [address] [place] [address] Assigned OBGYN Provider 08/06/23 documented as of this encounter
--- OUTSIDE RECORDS SUMMARY | 2023-11-24 07:31 | XMS_ITS | Encounter Summary ---
Author Name Unknown Organization [facility] Address [address] [place] [address]. [place] [address] Care Team Providers Care Public Health Specialist Name Role Phone Billie Guadarrama Primary Care Provider Rocio Mccarthy MD Unavailable [phone] Eriac Tristan MD Unavailable [phone] Reason for Visit * Reason Onset Date Comments Call Back 09/12/2023 Encounter Details Date Type Department Care Team (Late st Contact Info) Description 09/12/2023 Telephone [facility] [address] [place] [address] Rocio Mccarthy MD [address] [place] [address] Call Back Social History Tobacco [...] Sex Assigned at Female 10/05/2020 9:54 PM FUR DRUMMER Gender Identity Female 10/05/2020 9:54 PM FUR DRUMMER Sexual Orientation Straight 10/05/2020 9: 54 PM FUR DRUMMER documented as of this encounter Miscellaneous Notes * Telephone Encounter - Rocio Mccarthy MD - 09/15/2023 3:33 PM FUR DRUMMER Please see telephone encounter 09/15/2023 DRUMMER * Telephone Encounter - Chelita Hahn - 09/12/2023 2:56 PM CST [facility] Phone Message May a detailed message be left on voicemail: yes Reason for Call: Other: SOCIAL MEDIA STRATEGIST would like to know normal references ranges and values patient's care is being based off of. Patient is in 2nd trimester of . When calling , please ask for triage nurse. Action Taken: Other: endo Travel Screening: Not Applicable DRUMMER documented in this encounter Plan of Treatment Upcoming Encounters Date Type Department Care Team (Late st Contact Info) Description 12/12/2023 9:00 AM FUR DRUMMER Office Visit [facility] Maternal Medicine [facility] [address] [facility] [address] [place] [phone] Erica Tristan MD [address] [place], [place] [address] 12/12/2023 9:30 AM FUR DRUMMER Appointment [facility] Maternal Medicine [facility] [address] [place] [phone] Derrick Valenzuela MD [address] [place], [place] [address] 04/17/2024 9:00 AM CDT Virtual Visit [facility] [address] [place] [phone] Rocio Mccarthy MD [address] [place] [address] documented as of this encounter Visit Diagnoses Not on filedocumented in this encounter Additional Health Concerns Assessment Noted Time PHQ-9 Depression Total Score: 11 023 10:04 AM CDT documented as of this encounter Care Teams Public Health Specialist Relationship Specialty Start Date End Date Billie Guadarrama PCP - General 12/17/19 Rocio Mccarthy MD [address] [place] [address] Assigned Endocrinology Provider 04/24/22 Erica Tristan MD [address] [place], [place] [address] Assigned OBGYN Provider 08/06/23 documented as of this encounter
--- OUTSIDE RECORDS SUMMARY | 2023-11-24 07:31 | XMS_ITS | Encounter Summary ---
Author Name Unknown Organization [facility] Address [address] [place] [address]. 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 How many weeks are you so far? How are you feeling? Here is a copy for your records. Follow up as discussed in last clinic visit. Please call endocrinology clinic ) if questions. Rocio Mccarthy MD Endocrinology [facility] August 24, 2023 ING NICKER documented in this encounter Plan of Treatment Upcoming Encounters Date Type Department Care Team (Late st Contact Info) Description 12/12/2023 9:00 AM BINDING NICKER Office Visit [facility] Maternal Medicine [facility] [address] [facility] [address] [place] [address] Erica Tristan MD [address] [place], [place] [address] 12/12/2023 9:30 AM BINDING NICKER [facility] 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, [address] [address], [facility] [phone] * T3 Free (08/23/2023 1:26 PM BINDING NICKER) T3 Free 2.7 2.0 - 4.4 pg/mL 08/24/2023 4:01 AM BINDING NICKER U LABORAT[facility] Blood BLOOD SPECIMEN / Unknown Venipuncture / Unknown 08/23/2023 1:26 PM BINDING NICKER 08/23/2023 1:26 PM BINDING NICKER Rocio Mccarthy MD LAB - BLOOD ORDER [facility] [place] Core Lab [address] [facility], [address] [place] [address], [facility] [phone] * T4 free (08/23/2023 1:26 PM BINDING NICKER) Free T4 1.16 0.90 - 1.70 ng/dL 08/24/2023 4:01 AM BINDING NICKER [facility] Blood BLOOD SPECIMEN / Unknown Venipuncture / Unknown 08/23/2023 1:26 PM BINDING NICKER 08/23/2023 1:26 PM BINDING NICKER Rocio Mccarthy MD LAB - BLOOD ORDER [facility] Lab [address] 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
--- OUTSIDE RECORDS SUMMARY | 2023-11-24 07:31 | XMS_ITS | Encounter Summary ---
Author Name Unknown Organization [facility] Address [address] [place] [address]. [place] [address] Care Team Providers Care Feed Research Aide Name Role Phone Billie Guadarrama Primary Care Provider [phone] Rocio Mccarthy MD Unavailable [phone] Erica Tristan MD Unavailable [phone] Reason for Visit * Auth/Cert (Routine) Specialty Diagnoses / Procedures Referred By Contac t Referred To Contact residential caregiver Diagnoses Indication for care in labor or delivery Indication for care in labor or delivery [facility] [address] [place] [address] Referral ID Status Reason Start Date Expiration Date Visits Re quested Visits Authorized [id number] 1 1 Encounter Details Date Type Department Care Team (Late st Contact Info) Description 10/19/2023 Hospital Encounter [facility] [address] [place] [address] Simon Marcial MD [facility] [address] [place] [address] Social History Tobacco Use Types Packs/Day [...] Sex Assigned at Female 10/05/2020 9:54 PM MVA REACTOR OPERATOR Gender Identity Female 10/05/2020 9:54 PM MVA REACTOR OPERATOR Sexual Orientation Straight 10/05/2020 9: 54 PM MVA REACTOR OPERATOR documented as of this encounter H&P Notes * Lisa Matthew MD - 10/19/2023 5:30 PM CST Admission H and P: S: Pt is a transfer to [facility] from [facility] at 32+2/7 wks. She has a history of PTC in prior at 32 weeks without delivery until term. Today she started to note increase in contractions. Cervix was found to be 3 cm at [facility]. Theygave her BMZ, started nifedipine and Magnesium Sulfate and transferred her to [facility] for antepartummanagement. She has history of hypothyroidism, mood disorder, obesity. O: LMP 03/16/2023 Abdomen: gravid, non-tender, contractions are not palpable. TOCO: no irritability seen. FHR: 130 baseline. Reassuring. No decelerations. A/P: 28 yo at 32+2/7 wks with history of contraction and term delivery in prior . Now with labor. Will continue Nifedapine for 48 hours while she receives BMZ. Will discontinue Magnesium sulfate at12 hours. Will determine if increase in contractions if cervical exam is needed or if indications. Lovenox for DVT profolaxis. Continue home medications. Lisa Matthew MD REACTOR OPERATOR documented in this encounter Plan of Treatment Upcoming Encounters Date Type Department Care Team (Late st Contact Info) Description 12/12/2023 9:00 AM MVA REACTOR OPERATOR Office Visit [facility] Maternal Medicine [facility] [address] [place] [address] Erica Tristan MD [address] [place] [address] 12/12/2023 9:30 AM MVA REACTOR OPERATOR Appointment [facility] Maternal Medicine [facility] [address] [place] [address] Derrick Valenzuela MD [address] [place], [place] [address] 04/17/2024 9:00 AM CDT Virtual Visit [place] [address] [place] [address] [place] [phone] Rocio Mccarthy MD [address] [place] [address] documented as of this encounter Visit Diagnoses Not on filedocumented in this encounter Additional Health Concerns Assessment Noted Time PHQ-9 Depression Total Score: 11 023 10:04 AM CDT documented as of this encounter Care Teams Feed Research Aide Relationship Specialty Start Date End Date Billie Guadarrama PCP - General 12/17/19 Rocio Mccarthy MD [address] [place] [address] Assigned Endocrinology Provider 04/24/22 Erica Tristan MD [address] [place] [address] Assigned OBGYN Provider 08/06/23 documented as of this encounter
--- OUTSIDE RECORDS SUMMARY | 2023-11-24 07:31 | XMS_ITS | Encounter Summary ---
Author Name Unknown Organization [place] Address [address] [place] [address]. [place] [address] Care Team Providers Care Field Instructor Name Role Phone Billie Guadarrama Primary Care Provider Rocio Mccarthy MD Unavailable [phone] Erica Tristan MD Unavailable [phone] Encounter Details Date Type Department Care Team (Late st Contact Info) Description 09/15/2023 MyC Medical Advice [facility] [address] [facility] [address] [place] [address] Rocio Mccarthy MD [address] [place] [address] Social History Tobacco Use Types [...] Sex Assigned at Female 10/05/2020 9:54 PM RESTORATIVE REHAB AIDE Gender Identity Female 10/05/2020 9:54 PM RESTORATIVE REHAB AIDE Sexual Orientation Straight 10/05/2020 9: 54 PM RESTORATIVE REHAB AIDE documented as of this encounter Miscellaneous Notes * Telephone Encounter - Rocio Mccarthy MD - 09/15/2023 3:30 PM RESTORATIVE REHAB AIDE Per VIJAY guidelines; Typically TSH upper reference [...] through assessment of local population data sales solutions representative of a health care provider???s practice. ORATIVE REHAB AIDE documented in this encounter Plan of Treatment Upcoming Encounters Date Type Department Care Team (Late st Contact Info) Description 12/12/2023 9:00 AM RESTORATIVE REHAB AIDE Office Visit [facility] Maternal Medicine [facility] [address] [facility] [address] [place] [phone] Eriac Tristan MD [address] [place], [place] [id number] 12/12/2023 9:30 AM RESTORATIVE REHAB AIDE Appointment [facility] Maternal Medicine [facility] [address] [facility] [address] [place] [phone] Derrick Valenzuela MD [address] [place] [address] 04/17/2024 9:00 AM CDT Virtual Visit [facility] [address] [place] [phone] Rocio Mccarthy MD [address] [place] [address] documented as of this encounter Visit Diagnoses Not on filedocumented in this encounter Additional Health Concerns Assessment Noted Time PHQ-9 Depression Total Score: 023 10:04 AM CDT documented as of this encounter Care Teams Field Instructor Relationship Specialty Start Date End Date Billie Guadarrama PCP - General 12/17/19 Rocio Mccarthy MD [address] [facility] [address] [place] [address] Assigned Endocrinology Provider 04/24/22 Erica Tristan MD [address] [facility] [address] [place] [address] Assigned OBGYN Provider 08/06/23 documented as of this encounter
--- OUTSIDE RECORDS SUMMARY | 2023-11-24 07:32 | XMS_ITS | Encounter Summary ---
Author Name Unknown Organization [facility] Address [address] [place] [address]. [place] [address] Care Team Providers Care B2B Sales Consultant Name Role Phone Billie Guadarrama Primary Care Provider [phone] Rocio Mccarthy MD Unavailable [phone] Reason for Referral * Consultation (Routine: Next available opening) - Pending Review Specialty Diagnoses / Procedures Referred By Contac t Referred To Contact Diagnoses related condition, antepartum [place] [id number] [place] [address] Maternal Med [address] [facility] [address] [place] [address] Referral ID Status Reason Start Date Expiration Date V isits Requested Visits Authorized [id number] Pending Review 05/12/2023 05/11/2024 1 1 Question Answer Preferred Location: [facility] [place] 12/27/2023 Ultrasound MFM Recommendation US PROC NONE MFM Issue OTHER (enter details in Comments) - labor, 287.51-personal history of obesity E66.9 JUAN KRAMER Consultation (unrelated to Ultrasound findings): Yes Inflammatory Bowel Disease Clinic: Joint MFM and GI Consultation: No Chronic Kidney Disease: Joint MFM and Nephrology Consultation No Genetic Counseling Consultation: No fax [facility] January Christina [phone] Comments labor, 287.51-personal history of obesity E66.9 Encounter Details Date Type Department Care Team (Latest Contact Info) Description 05/12/2023 Transcribe Orders [facility] Medicine [place] [address] [facility] [address] [place] [address] Marely Vasquez [facility] [address] [place] [address] [place] [address] related condition, antepartum (Primary Dx) Social History [...] Sex Assigned at Female 10/05/2020 9:54 PM COUNTER TENDER Gender Identity Female 10/05/2020 9:54 PM COUNTER TENDER Sexual Orientation Straight 10/05/2020 9: 54 PM COUNTER TENDER documented as of this encounter Plan of Treatment Upcoming Encounters Date Type Department Care Team (Late st Contact Info) Description 12/12/2023 9:00 AM COUNTER TENDER Office Visit [facility] Medicine [place] [address] [facility] [address] [place] [phone] Erica Tristan MD [address] [place] [address] 12/12/2023 9:30 AM COUNTER TENDER Appointment [facility] Medicine [place] [address] [facility] [address] [place] [phone] Derrick Valenzuela MD [address] [place] [address] 04/17/2024 9:00 AM CDT Virtual Visit [facility] [address] [place] [address] Rocio Mccarthy MD [address] [place] [address] Scheduled Referrals Name Type Priority Associated Diagnoses Orde r Schedule [facility] Med Ctr Referral - Referral Routine: Next available opening related condition, antepartum Expected: 05/12/2023 (Approximate), Expires: 11/08/2023 documented as of this encounter Visit Diagnoses Diagnosis related condition, antepartum- Primary documented in this encounter Care Teams B2B Sales Consultant Relationship Specialty Start Date End Date Billie Guadarrama PCP - General 12/17/19 Rocio Mccarthy MD [address] [place] [address] Assigned Endocrinology Provider 04/24/22 documented as of this encounter
--- OUTSIDE RECORDS SUMMARY | 2023-11-24 07:32 | XMS_ITS | Encounter Summary ---
Author Name Unknown Organization [facility] Address [address] [place] [address] Care Team Providers Care Transportation Specialist Name Role Phone Billie Guadarrama Primary Care Provider Rocio Mccarthy MD Unavailable [phone] Reason for Referral * Diagnostic Imaging Ultrasound (Routine) - Pending Review Specialty Diagnoses / Procedures Referred By Emily douglas Referred To Contact Radiology. Diagnoses History of prior with short cervix, currently Short cervix affecting Encounter for follow-up ultrasound of anatomy Procedures MFM US OB Transvaginal Anthony Shaffer MD [address] [place] [address] Referral ID Status Reason Start Date Expiration Date V isits Requested Visits Authorized [id number] Pending Review 07/26/2023 07/25/2024 1 1 Reason for Visit * Reason Comments Ultrasound L2-Hx PTL with term delivery Consult Hx PTL with term del elaine * Consultation (Routine: Next available opening) - Pending Review Specialty Diagnoses / Procedures Referred By Emily douglas Referred To Contact Diagnoses History of prior with short cervix, currently Candice Conti MD [address] [place] [address] Referral ID Status Reason Start Date Expiration Date V isits Requested Visits Authorized [id number] Pending Review 05/17/2023 05/16/2024 1 1 Encounter Details Date Type Department Care Team (Late st Contact Info) Description 07/26/2023 2:15 PM CDT Office Visit [facility] M[facility] [place] [address] [place] [address] Candice Conti MD [address] [place] [address] Anthony Shaffer MD [address] [place] [address] Obesity affecting , antepartum, unspecified [...] Sex Assigned at Female 10/05/2020 9:54 PM INFORMATION ASSURANCE OFFICER Gender Identity Female 10/05/2020 9:54 PM INFORMATION ASSURANCE OFFICER Sexual Orientation Straight 10/05/2020 9: 54 PM INFORMATION ASSURANCE OFFICER documented as of this encounter Last Filed [...] Shaffer MD - 07/26/2023 2:15 PM CDT [facility] Consultation I was asked to see Taylor [...] week up to 24 weeks (ordered at [facility] in 1 and 2 weeks). 3) We would offer a cerclage if the cervix became < 10 mm or was dilated prior to 24 weeks. 4) In addition we will reassess the anatomy at [facility] in 2 weeks. For the history of hypothyroidism we recommend to assess adequate replacement each trimester and change her synthroid dose if appropriate. No additional assessments of growthg or testing is recommended for hypothyroidism. Please see Imaging tab under Chart Review for details of today's US at the [facility]. Anthony Shaffer MD Maternal- Medicine The total time spent in all patient care activities on the day of this visit was 15 minutes. documented in this encounter Plan of Treatment Upcoming Encounters Date Type Department Care Team (Late st Contact Info) Description 12/12/2023 9:00 AM INFORMATION ASSURANCE OFFICER Office Visit [facility] Medicine [facility] [address] [place] [phone] Erica Tristan MD [address] [place], [place] [address] 12/12/2023 9:30 AM INFORMATION ASSURANCE OFFICER Appointment [facility] Medicine [place] [address] [place] [address] Derrick Valenzuela MD [address] [place], [place] [address] 04/17/2024 9:00 AM CDT Virtual Visit [facility] [address] [place] [place] [phone] Rocio Mccarthy MD [address] [place], [place] [address] documented as of this encounter Results * [...] ? Study Date: ??08/01/2023 11:06am Pat. NO: ??[id number] ?Referring ??MD: JANUARY MANUELAKAITLYNN Site: [facility] ? Machine Loader: Ariana Wilkerson RDMS : ??1995 ?Age: ?? [...] 08/01/2023 Cx TV ----- Pat. Name: TAYLOR GARCIA Study Date: 08/01/2023 11:06am Pat. NO: [id number] Referring MD: SERGIO SONI Site: [facility] Machine Loader: Ariana Wilkerson RDMS : 1995 Age: 28 [...] in length and closed. Anthony Shaffer MD IMG [facility] US ORDERABL ES documented in this encounter [...] documented as of this encounter Care Teams Transportation Specialist Relationship Specialty Start Date End Date Billie Guadarrama PCP - General 12/17/19 Rocio Mccarthy MD [address] [place] [address] Assigned Endocrinology Provider 04/24/22 documented as of this encounter
--- OUTSIDE RECORDS SUMMARY | 2023-11-24 07:32 | XMS_ITS | Encounter Summary ---
Author Name Unknown Organization [facility] Address [address] [place] [address]. [place] [address] Care Team Providers Care On Site Manager Name Role Phone Chiara Billie Primary Care Provider [phone] Rocio Mccarthy MD Unavailable [phone] Encounter Details Date Type Department Care Team (Late st Contact Info) Description 06/07/2023 3:[address] 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 No / Unsure 06/07/2023 3:26 PM CDT documented as of this encounter Plan of Treatment Upcoming Encounters Date Type Department Care Team (Late st Contact Info) Description 12/12/2023 9:00 AM VICE PRESIDENT PRECISION MARKET INSIGHTS Office Visit [facility] Medicine [facility] [address] [place] [phone] Erica Tristan MD [address] [place] [address] 12/12/2023 9:30 AM VICE PRESIDENT PRECISION MARKET INSIGHTS Appointment [facility] [address] [place] [phone] Derrick Valenzuela MD [address] [place] [address] 04/17/2024 9:00 AM CDT Virtual Visit [facility] [address] [place] [address] [place] [phone] Rocio Mccarthy MD [address] [place], [place] [address] documented as of this encounter Procedures Procedure [...] LAB - BLOOD ORDER [facility] [place] Core Lab [address] [facility], [address] [place] [address], [facility] [phone] * (ABNORMAL) TSH (06/07/2023 3:33 PM CDT) TSH 4.86(H) 0.30 - 4.20 uIU/mL 06/07/2023 8:40 PM CDT [facility] Blood BLOOD SPECIMEN / Unknown Venipuncture / Unknown 06/07/2023 3:33 PM CDT 06/07/2023 3:33 PM CDT Rocio Mccarthy MD LAB - BLOOD ORDER [facility] Core Lab [address] [facility], [address] [address], [facility] [phone] * T4 free (06/07/2023 3:33 PM CDT) Free T4 1.03 0.90 - 1.70 ng/dL 06/07/2023 8:40 PM CDT [facility] Blood BLOOD SPECIMEN / Unknown Venipuncture / Unknown 06/07/2023 3:33 PM CDT 06/07/2023 3:33 PM CDT Rocio Mccarthy MD LAB - BLOOD ORDER [facility] [place] [facility] [address] [facility], [address] [place] [address], [facility] [phone] documented in this encounter Visit Diagnoses Diagnosis 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
--- OUTSIDE RECORDS SUMMARY | 2023-11-24 07:32 | XMS_ITS | Encounter Summary ---
Author Name Unknown Organization [facility] Address [address] [place] [address] Care Team Providers Care Paint Specialist Name Role Phone Selinsusan Billie Primary Care Provider [phone] Rocio Mccarthy MD Unavailable [phone] Reason for Referral * Diagnostic Imaging Ultrasound (Routine) - Pending Review Specialty Diagnoses / Procedures Referred By Contac t Referred To Contact Radiology. Diagnoses History of prior with short cervix, currently Procedures [facility] US Comprehensive [facility] Candice Conti MD [address] [place], [place] [address] [address] [address] Referral ID Status Reason Start Date Expiration Date V isits Requested Visits Authorized [id number] Pending Review 05/17/2023 05/16/2024 1 1 Reason for Visit * Diagnostic Imaging Ultrasound (Routine) - Pending Review Specialty Diagnoses / Procedures Referred By Contac t Referred To Contact Radiology. Diagnoses History of prior with short cervix, currently Procedures [facility] Candice Juarez MD [address] [address] Referral ID Status Reason Start Date Expiration Date V isits Requested Visits Authorized [id number] Pending Review 05/17/2023 05/16/2024 1 1 Encounter Details Date Type Department Care Team (Latest Contact Info) Description 07/26/2023 1:22 PM CDT - 07/26/2023 11:59 PM CDT Hospital Encounter [facility] Maternal Medicine [facility] [address] [facility] [address] [place] [address] Candice Conti MD [address] [place] [address] Anthony Shaffer MD [address] [place] [address] History of prior with short [...] Assigned at Female 10/05/2020 9:54 PM DIE CUTTING MACHINE OPERATOR Gender Identity Female 10/05/2020 9:54 PM DIE CUTTING MACHINE OPERATOR Sexual Orientation Straight 10/05/2020 9: 54 PM DIE CUTTING MACHINE OPERATOR documented as of this encounter Medications at [...] Contact Info) Description 12/12/2023 9:00 AM DIE CUTTING MACHINE OPERATOR Office Visit [facility] Medicine [facility] [address] [place] [phone] Erica Tristan MD [address] [place], [place] [address] 12/12/2023 9:30 AM DIE CUTTING MACHINE OPERATOR Appointment [facility] Medicine [facility] [address] [place] [phone] Derrick Valenzuela MD [address] [place], [place] [address] 04/17/2024 9:00 AM CDT Virtual Visit [facility] [address] [place] [address] [place] [phone] Rocio Mccarthy MD [address] [place], [place] [address] documented as of this encounter Procedures Procedure Name Priority Date/Time Associated Diagnosis Comments [facility] US COMPREHENSIVE SINGLE Routine 07/26/2023 2:32 PM CDT History of prior with short cervix, currently documented in this encounter Results * [facility] US Comprehensive Single (07/26/2023 2:32 PM [...] ? Study Date: ??07/26/2023 1:18pm Pat. NO: ??[id number] ?Referring ??MD: JANUARY MANUELAKAITLYNN Site: ??[facility] ? Flotation Tender: Phylicia Perkins RDMS : ??1995 ?Age: ?? [...] 0 lb 7 ?oz EFW by ?Kelsy ([id number]) Head / Face / Neck Biometry: Metal Trim Erector ? 5.4 ? mm CM ?5.3 ? [...] view. Superior vena cava. Inferior vena cava. 8-dgvmjc-[id number] view. Cardiac ? position. Cardiac size. Cardiac [...] ?Visualized Left Ovary ?Visualized CONSULTATION ----- Type: [facility] CONSULTATION I was asked to see [...] week up to 24 weeks (ordered at [facility] in 1 and 2 weeks). 3) We would offer a cerclage if the cervix became < 10 mm or was dilated prior to 24 weeks. 4) In addition we will reassess the anatomy at [facility] in 2 weeks. For the history [...] GARCIA Study Date: 07/26/2023 1:18pm Pat. NO: [id number] Referring MD: SERGIO SONI Site: [facility] Flotation Tender: Phylicia Perkins RDMS : 1995 Age: 28 [...] 0 lb 7 oz EFW by [place] ([id number]) Head / Face / Neck Biometry: Metal Trim Erector 5.4 mm CM 5.3 mm Nasal bone [...] arch view. Superior vena cava. Inferior vena cava.7-kszgto-iruravf view. Cardiac position. Cardiac size. Cardiacrhythm. Right [...] Visualized Left Ovary Visualized CONSULTATION ----- Type: [facility] CONSULTATION I was asked to see [...] week up to 24 weeks (ordered at [facility] in 1 and2 weeks). 3) We would offer a cerclage if the cervix became < 10 mm or was dilatedprior to 24 weeks. 4) In addition we will reassess the anatomy at [facility] in 2 weeks. For the history [...] consultation section for further counseling. Return to [facility] for continued care. Thank-you for the opportunity [...] with no funneling noted. [facility] Cont[facility] documented in this encounter Visit Diagnoses Diagnosis History of prior with short cervix, currently documented in this encounter Additional Health Concerns Assessment Noted Time PHQ-9 Depression Total Score: 11 023 10:04 AM CDT documented as of this encounter Care Teams Paint Specialist Relationship Specialty Start Date End Date Chiara Billie PCP - General 12/17/19 Rocio Mccarthy MD [address] [place] [address] 200 [place] [address] Assigned Endocrinology Provider 04/24/22 documented as of this encounter
--- OUTSIDE RECORDS SUMMARY | 2023-11-24 07:32 | XMS_ITS | Encounter Summary ---
Author Name Unknown Organization [facility] Address [address] [place] [address] Care Team Providers Care Machine Stitcher Name Role Phone Selinsusan Billie Primary Care Provider [phone] Rocio Mccarthy MD Unavailable [phone] Reason for Referral * Consultation (Routine: Next available opening) - Pending Review Specialty Diagnoses / Procedures Referred By Contac t Referred To Contact Diagnoses History of prior with short cervix, currently Candice Conti MD [address] [facility] [address] [place] [address] Referral ID Status Reason Start Date Expiration Date V isits Requested Visits Authorized [id number] Pending Review 05/17/2023 05/16/2024 1 1 Question Answer MFM Consult Yes Additional Information: MFM radiologic consult * Diagnostic Imaging Ultrasound (Routine) - Pending Review Specialty Diagnoses / Procedures Referred By Contac t Referred To Contact Radiology. Diagnoses History of prior with short cervix, currently Procedures [facility] US Comprehensive Single Candice Conti MD [address] [place] [address] Referral ID Status Reason Start Date Expiration Date V isits Requested Visits Authorized [id number] Pending Review 05/17/2023 05/16/2024 1 1 Encounter Details Date Type Department Care Team (Late st Contact Info) Description 05/17/2023 Orders Only [facility] Maternal Medicine [place] [address] [place] [address] Aida Chin RN History of prior with [...] Sex Assigned at Female 10/05/2020 9:54 PM MOTOR OVERHAULER Gender Identity Female 10/05/2020 9:54 PM MOTOR OVERHAULER Sexual Orientation Straight 10/05/2020 9: 54 PM MOTOR OVERHAULER documented as of this encounter Plan of Treatment Upcoming Encounters Date Type Department Care Team (Late st Contact Info) Description 12/12/2023 9:00 AM MOTOR OVERHAULER Office Visit [facility] Medicine [facility] [address] [facility] [address] [place] [phone] Erica Tristan MD [address] [address] 12/12/2023 9:30 AM MOTOR OVERHAULER Appointment [facility] Maternal Medicine [facility] [address] [place] [phone] Derrick Valenzuela MD [address] [place] [address] 04/17/2024 9:00 AM CDT Virtual Visit [facility] [address] [place] [address] Rocio Mccarthy MD [address] [facility] [address] [place] [address] Scheduled Referrals Name Type Priority Associated Diagnoses Orde r Schedule [facility] Office Visit Referral Routine: Next available opening History of prior with short cervix, currently Expected: 07/26/2023 (Approximate), Expires: 05/17/2024 documented as of this encounter Results * [facility] US Comprehensive Single (07/26/2023 2:32 PM [...] ? Study Date: ??07/26/2023 1:18pm Pat. NO: ??[id number] ?Referring ??MD: JANUARY MANUELAKAITLYNN Site: ??[facility] ? Freelance Photographer: Phylicia ePrkins RDMS : ??1995 ?Age: ?? 28 ----- [...] Biometry: BPD ?37.1 ?mm ? 17w 2d ?Kelsy KOHLER ?49.0 ?mm ? 16w 5d ?Nicolaides HC ?138.1 ?mm ?17w 1d ?Hadlock Cerebellum tr ?17.7 ? mm ?17w 5d ?Nicolaides AC ?117.1 ? mm ? 17w 3d ?29% ?Hadlock Femur ?26.3 ? mm ?18w 0d ?Hadlock Humerus ?24.9 ?mm ? 17w 6d ?Kevin Weight Calculation: EFW ? 204 ? g ? 26% ?Hadlock EFW (lb,oz) ? 0 lb 7 ?oz EFW by ?Hadlock ([id number]) Head / Face / Neck Biometry: Radiology Receptionist ? 5.4 ? mm CM ?5.3 ? [...] view. Superior vena cava. Inferior vena cava. 7-qbxlmr-wainhtj view. Cardiac ? position. Cardiac size. Cardiac [...] week up to 24 weeks (ordered at [facility] in 1 and 2 weeks). 3) We would offer a cerclage if the cervix became < 10 mm or was dilated prior to 24 weeks. 4) In addition we will reassess the anatomy at [facility] in 2 weeks. For the history [...] GARCIA Study Date: 07/26/2023 1:18pm Pat. NO: [id number] Referring MD: JANUARY ZACHARIAH Site: [facility] Freelance Photographer: Phylicia Perkins RDMS : 1995 Age: 28 [...] 0 lb 7 oz EFW by Hadlock ([id number]-FL) Head / Face / Neck Biometry: Radiology Receptionist 5.4 mm CM 5.3 mm Nasal bone [...] arch view. Superior vena cava. Inferior vena cava.8-qwrjdz-awqiwxp view. Cardiac position. Cardiac size. Cardiacrhythm. Right [...] Visualized Left Ovary Visualized CONSULTATION ----- Type: [facility] CONSULTATION I was asked to see [...] week up to 24 weeks (ordered at [facility] in 1 and2 weeks). 3) We would offer a cerclage if the cervix became < 10 mm or was dilatedprior to 24 weeks. 4) In addition we will reassess the anatomy at [facility] in 2 weeks. For the history [...] consultation section for further counseling. Return to [facility] for continued care. Thank-you for the opportunity [...] with no funneling noted. Candice Conti MD [facility] US ORDERAB LES documented in this encounter Visit Diagnoses Diagnosis History of prior with short cervix, currently - Primary History of prior with short cervix, currently documented in this encounter Care Teams Machine Stitcher Relationship Specialty Start Date End Date Billie Guadarrama PCP - General 12/17/19 Rocio Mccarthy MD [address] [facility] [address] [place] [address] Assigned Endocrinology Provider 04/24/22 documented as of this encounter
--- OUTSIDE RECORDS SUMMARY | 2023-11-24 07:32 | XMS_ITS | Encounter Summary ---
Author Name Unknown Organization [facility] Address [address] [place] [address] Care Team Providers Care Beef Lugger Name Role Phone Selinsusan Billie Primary Care Provider [phone] Rocio Mccarthy MD Unavailable [phone] Reason for Referral * Diagnostic Imaging Ultrasound (Routine) - Pending Review Specialty Diagnoses / Procedures Referred By Contac t Referred To Contact Radiology. Diagnoses History of prior with short cervix, currently Short cervix affecting Encounter for follow-up ultrasound of anatomy Procedures [facility] US OB Transvaginal Anthony Shaffer MD [address] [address] Referral ID Status Reason Start Date Expiration Date V isits Requested Visits Authorized [id number] Pending Review 07/26/2023 07/25/2024 1 1 Reason for Visit * Diagnostic Imaging Ultrasound (Routine) - Pending Review Specialty Diagnoses / Procedures Referred By Contac t Referred To Contact Radiology. Diagnoses History of prior with short cervix, currently Short cervix affecting Encounter for follow-up ultrasound of anatomy Procedures [facility] US OB Transvaginal Anthony Shaffer MD [address] [place] [address] Referral ID Status Reason Start Date Expiration Date V isits Requested Visits Authorized [id number] Pending Review 07/26/2023 07/25/2024 1 1 Encounter Details Date Type Department Care Team (Latest Contact Info) Description 08/01/2023 10:55 AM CDT - 08/01/2023 11:59 PM CDT Hospital Encounter [facility] [place] [address] [place] [address] Anthony Shaffer MD [address] [place] [address] Erica Tristan MD [address] [place] [address] History of prior with short [...] Sex Assigned at Female 10/05/2020 9:54 PM CYLINDER PRESS FEEDER Gender Identity Female 10/05/2020 9:54 PM CYLINDER PRESS FEEDER Sexual Orientation Straight 10/05/2020 9: 54 PM CYLINDER PRESS FEEDER documented as of this encounter Medications at [...] st Contact Info) Description 12/12/2023 9:00 AM CYLINDER PRESS FEEDER Office Visit [facility] M[facility] Medicine [facility] [address] [facility] [address] [place] [phone] Erica Tristan MD [address] [place], [place] [address] 12/12/2023 9:30 AM CYLINDER PRESS FEEDER Appointment [facility] Medicine [facility] [address] [facility] [address] [place] [phone] Derrick Valenzuela MD [address] [place], [place] [address] 04/17/2024 9:00 AM CDT Virtual Visit [facility] [address] [place] [address] [place] [phone] Rocio Mccarthy MD [address] [place], [place] [address] documented as of this encounter Procedures Procedure Name Priority Date/Time Associated Diagnosis Comments [facility] US OB TRANSVAGINAL Routine 08/01/2023 11:25 AM CDT History of prior with short cervix, currently Short cervix affecting Encounter for follow-up ultrasound of anatomy documented in this encounter Results * [facility] US OB Transvaginal (08/01/2023 11:25 AM [...] ? Study Date: ??08/01/2023 11:06am Pat. NO: ??[id number] ?Referring ??: SERGIO SONI Site: ??[facility] ? Biodiesel Production Associate: Ariana Wilkerson RDMS : ??1995 ?Age: ?? [...] GARCIA Study Date: 08/01/2023 11:06am Pat. NO: [id number] Referring MD: SERGIO SONI Site: [facility] Biodiesel Production Associate: Ariana Wilkerson RDMS : 1995 Age: 28 [...] in length and closed. Anthony Shaffer MD [facility] US ORDERABL ES documented in this [...] documented as of this encounter Care Teams Beef Lugger Relationship Specialty Start Date End Date Billie Guadarrama PCP - General 12/17/19 Rocio Mccarthy MD [address] [facility] [address] [place] [address] Assigned Endocrinology Provider 04/24/22 documented as of this encounter
--- OUTSIDE RECORDS SUMMARY | 2023-11-24 07:32 | XMS_ITS | Encounter Summary ---
Author Name Unknown Organization [facility] Address [address] [place] [address]. [place] [address] Care Team Providers Care Candy Mixer Name Role Phone Selinsusan Billie Primary Care Provider [phone] Rocio Mccarthy MD Unavailable [phone] Encounter Details Date Type Department Care Team [...] Sex Assigned at Female 10/05/2020 9:54 PM WINE CELLAR WORKER Gender Identity Female 10/05/2020 9:54 PM WINE CELLAR WORKER Sexual Orientation Straight 10/05/2020 9: 54 PM WINE CELLAR WORKER COVID-19 Exposure Response Date Recorded In the last 10 days, have yo u been in contact with someone who was confirmed or suspected to have Coronavirus/COVID-19? No / Unsure 06/07/2023 3:26 PM CDT documented as of this encounter Plan of Treatment Upcoming Encounters Date Type Department Care Team ( st Contact Info) Description 12/12/2023 9:00 AM WINE CELLAR WORKER Office Visit [facility] Maternal Medicine [facility] [address] [place] [phone] Erica Tristan MD [address] [place] [address] 12/12/2023 9:30 AM WINE CELLAR WORKER Appointment [facility] Medicine [facility] [address] [place] [phone] Derrick Valenzuela MD [address] [place], [place] [address] 04/17/2024 9:00 AM CDT Virtual Visit [facility] [address] [place] [address] [place] [phone] Rocio Mccarthy MD [address] [place] [address] documented as of this encounter Visit Diagnoses Not on filedocumented in this encounter Care Teams Candy Mixer Relationship Specialty Start Date End Date Chiara Billie PCP - General 12/17/19 Rocio Mccarthy MD [address] [place] [address] Assigned Endocrinology Provider 04/24/22 documented as of this encounter
--- OUTSIDE RECORDS SUMMARY | 2023-11-24 07:32 | XMS_ITS | Encounter Summary ---
Author Name Unknown Organization [facility] Address [address] [place] [address]. [place] [address] Care Team Providers Care Label Folder Name Role Phone Chiara Billie Primary Care Provider [phone] Rocio Mccarthy MD Unavailable [phone] Encounter Details Date Type Department Care Team [...] Sex Assigned at Female 10/05/2020 9:54 PM GUIDANCE SERVICES COORDINATOR Gender Identity Female 10/05/2020 9:54 PM GUIDANCE SERVICES COORDINATOR Sexual Orientation Straight 10/05/2020 9: 54 PM GUIDANCE SERVICES COORDINATOR documented as of this encounter Plan of Treatment Upcoming Encounters Date Type Department Care Team ( Contact Info) Description 12/12/2023 9:00 AM GUIDANCE SERVICES COORDINATOR Office Visit [facility] Maternal Medicine [facility] [address] [place] [address] Erica Tristan MD [address] [place] [address] 12/12/2023 9:30 AM GUIDANCE SERVICES COORDINATOR Appointment [facility] Medicine [facility] [address] [facility] [address] [place] [phone] Derrick Valenzuela MD [address] [place] [address] 04/17/2024 9:00 AM CDT Virtual Visit [facility] [address] [place] [address] [place] [address] Rocio Mccarthy MD [address] [place] [address] documented as of this encounter Visit Diagnoses Not on filedocumented in this encounter Additional Health Concerns Assessment Noted Time PHQ-9 Depression Total Score: 11 023 10:04 AM CDT documented as of this encounter Care Teams Label Folder Relationship Specialty Start Date End Date Billie Guadarrama PCP - General 12/17/19 Rocio Mccarthy MD [address] [place] [address] Assigned Endocrinology Provider 04/24/22 documented as of this encounter
--- OUTSIDE RECORDS SUMMARY | 2023-11-24 07:32 | XMS_ITS | Encounter Summary ---
Author Name Unknown Organization [facility] Address [address] [place] [address]. 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 [...] Sex Assigned at Female 10/05/2020 9:54 PM LITIGATION PARTNER Gender Identity Female 10/05/2020 9:54 PM LITIGATION PARTNER Sexual Orientation Straight 10/05/2020 9: 54 PM LITIGATION PARTNER COVID-19 Exposure Response Date Recorded In the [...] st Contact Info) Description 12/12/2023 9:00 AM LITIGATION PARTNER Office Visit [facility] Medicine [facility] [address] [place] [phone] Erica Tristan MD [address] [place], [place] [address] 12/12/2023 9:30 AM LITIGATION PARTNER Appointment [facility] [address] [facility] [address] [place] [phone] Derrick Valenzuela MD [address] [place], [place] [address] 04/17/2024 9:00 AM CDT Virtual Visit [facility] [address] [place] [address] [place] [phone] Rocio Mccarthy MD [address] [place] [address] documented as of this encounter Visit Diagnoses Diagnosis 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
--- OUTSIDE RECORDS SUMMARY | 2023-11-24 07:32 | XMS_ITS | Encounter Summary ---
Author Name Unknown Organization [facility] Address [address] [place] [address]. [place] [address] Care Team Providers Care Operations/Dispatch Name Role Phone Selinsusan Billie Primary Care Provider [phone] Rocio Mccarthy MD Unavailable [phone] Encounter Details Date Type Department Care Team [...] Assigned at Female 10/05/2020 9:54 PM MANAGER BANKING Gender Identity Female 10/05/2020 9:54 PM MANAGER BANKING Sexual Orientation Straight 10/05/2020 9: 54 PM MANAGER BANKING COVID-19 Exposure Response Date Recorded In the last 10 days, have yo u been in contact with someone who was confirmed or suspected to have Coronavirus/COVID-19? No / Unsure 03/30/2023 3:52 PM CDT documented as of this encounter Plan of Treatment Upcoming Encounters Date Type Department Care Team ( st Contact Info) Description 12/12/2023 9:00 AM MANAGER BANKING Office Visit [facility] Maternal Medicine [facility] [address] [place] [phone] Erica Tristan MD [address] [place] [address] 12/12/2023 9:30 AM MANAGER BANKING Appointment [facility] Medicine [facility] [address] [place] [phone] Derrick Valenzuela MD [address] [place], [place] [address] 04/17/2024 9:00 AM CDT Virtual Visit [facility] [address] [place] [phone] Rocio Mccarthy MD [address] [place] [address] documented as of this encounter Visit Diagnoses Not on filedocumented in this encounter Care Teams Operations/Dispatch Relationship Specialty Start Date End Date Chiara Billie PCP - General 12/17/19 Rocio Mcacrthy MD [address] [place] [address] Assigned Endocrinology Provider 04/24/22 documented as of this encounter
--- OUTSIDE RECORDS SUMMARY | 2023-11-24 07:32 | XMS_ITS | Encounter Summary ---
Author Name Unknown Organization [facility] Address [address] [facility] [place] [address] Care Team Providers Care Light Oil Operator Name Role Phone Chiara Billie Primary Care Provider [phone] Rocio Mccarthy MD Unavailable [phone] Encounter Details Date Type Department Care Team (Late Contact Info) Description 05/12/2023 Medical Correspondence [facility] [address] [place] [address] Outside, Provider Social History Tobacco [...] Sex Assigned at Female 10/05/2020 9:54 PM TOURS CAPTAIN Gender Identity Female 10/05/2020 9:54 PM TOURS CAPTAIN Sexual Orientation Straight 10/05/2020 9: 54 PM TOURS CAPTAIN documented as of this encounter Plan of Treatment Upcoming Encounters Date Type Department Care Team (Late st Contact Info) Description 12/12/2023 9:00 AM TOURS CAPTAIN Office Visit [facility] M[facility] Medicine [facility] [place] [address] [place] [address] Erica Tristan MD [address] [place] [address] 12/12/2023 9:30 AM TOURS CAPTAIN Appointment [facility] Medicine [facility] [address] [facility] [address] [place] [phone] Derrick Valenzuela MD [address] [place] [address] 04/17/2024 9:00 AM CDT Virtual Visit [facility] [address] [place] [address] [place] [address] Rocio Mccarthy MD [address] [place] [address] documented as of this encounter Visit Diagnoses Not on filedocumented in this encounter Care Teams Light Oil Operator Relationship Specialty Start Date End Date Billie Guadarrama PCP - General 12/17/19 Rocio Mccarthy MD [address] [place], [place] [address] Assigned Endocrinology Provider 04/24/22 documented as of this encounter
--- OUTSIDE RECORDS SUMMARY | 2023-11-24 07:32 | XMS_ITS | Encounter Summary ---
Author Name Unknown Organization [facility] Address [address] [place] [address]. [place] [address] Care Team Providers Care Codifier Name Role Phone Billie Guadarrama Primary Care Provider Rocio Mccarthy MD Unavailable [phone] Reason for Visit * Reason Onset Date Comments Medication Compliance Issues 06/16/2023 (SY NTHROID/LEVOTHROID) 175 MCG tablet Encounter Details Date Type Department Care Team (Late st Contact Info) Description 06/16/2023 Telephone [facility] [address] [place] [address] Rocio Mccarthy MD [address] [place] [address] Medication Compliance Issues ((SYNTHROID/LEVOTHROID) 175 [...] Sex Assigned at Female 10/05/2020 9:54 PM BRAKE RIDER Gender Identity Female 10/05/2020 9:54 PM BRAKE RIDER Sexual Orientation Straight 10/05/2020 9: 54 PM BRAKE RIDER COVID-19 Exposure Response Date Recorded In the [...] [place] - 06/16/2023 9:27 AM CDT [facility] Call Center Phone Message May a detailed message be left on voicemail: yes Reason for Call: Medication Question or concern regarding medication Prescription Clarification Name of Medication: (SYNTHROID/LEVOTHROID) 175 MCG tablet Prescribing Provider: Pharmacy: [facility] [address] [place] [address] What on the order needs clarification? For [...] st Contact Info) Description 12/12/2023 9:00 AM BRAKE RIDER Office Visit [facility] [place] [address] [facility] [address] [place] [phone] Erica Tristan MD [address] [place] [address] 12/12/2023 9:30 AM BRAKE RIDER Appointment [facility] [place] [address] [place] [phone] Derrick Valenzuela MD [address] [place] [address] 04/17/2024 9:00 AM CDT Virtual Visit [facility] [address] [place] [address] [place] [phone] Rocio Mccarthy MD [address] [place] [address] documented as of this encounter Visit Diagnoses Not on filedocumented in this encounter Care Teams Codifier Relationship Specialty Start Date End Date Billie Guadarrama PCP - General 12/17/19 Rocio Mccarthy MD [address] [place] [address] Assigned Endocrinology Provider 04/24/22 documented as of this encounter
--- OUTSIDE RECORDS SUMMARY | 2023-11-24 07:32 | XMS_ITS | Encounter Summary ---
Author Name Unknown Organization [place] Address [address] [place] [address]. 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 [place] [address] Appointment [phone] [place]: Tuesday - Continue levothyroxine 175 mcg/day. Labs [...] ended: 10:51 Provider location: working from home/ [facility] Patient location: patients home. Mode of [...] Was requested to see endocrinology by her COMMODITY SPECIALIST from [place]. Available records, labs and images from outside [...] or cold intolerance: sometimes cold History of [place] or Amiodarone use:No Head or neck surgery/radiation:No [...] ENT SURGERY 2015 tonsils, adenoids, wisdom teeth SLOT FLOOR ATTENDANT SURGERY 2019 ovarian cyst removed HEAD & [...] Follow-up: After delivery Rocio Mccarthy MD Endocrinology [facility] CC: Billie Guadarrama All questions were answered. The patient indicates understanding of the above issues and agrees with the plan set forth. documented in this encounter Nursing Notes * Kendra Baltazar - 06/21/2023 10:30 AM CDT Is the patient currently in the state of [place]? YES Visit mode:VIDEO If the visit is dropped, the patient can be reconnected by: VIDEO VISIT: Text to cell phone: Telephone Information: Will anyone else be joining the visit? NO (If patient encounters technical issues they should call [phone] :[phone]) How would you like to obtain your AVS? MyChart Are changes needed to the allergy or medication list? No Reason for visit: RECHECK and Video Visit Kendra Baltazar VVF documented in this encounter Plan of Treatment Upcoming Encounters Date Type Department Care Team (Late st Contact Info) Description 12/12/2023 9:00 AM PROFILE GRINDER Office Visit [facility] [address] [facility] [address] [place] [address] Erica Tristan MD [address] [place], [place] [address] 12/12/2023 9:30 AM PROFILE GRINDER Appointment [facility] [place] [address] [place] [address] Derrick Valenzuela MD [address] [place], [place] [address] 04/17/2024 9:00 AM CDT Virtual Visit [facility] [address] [place] [address] [place] [address] Rocio Mccarthy MD [address] [place], [place] [address] Scheduled Orders Name Type Priority Associated Diagnoses [...] Results * (ABNORMAL) TSH (10/11/2023 3:40 PM PROFILE GRINDER) TSH 4.51(H) 0.30 - 4.20 uIU/mL 10/11/2023 10:16 PM PROFILE GRINDER [facility] Blood BLOOD SPECIMEN / Unknown Venipuncture / Unknown 10/11/2023 3:40 PM PROFILE GRINDER 10/11/2023 3:40 PM PROFILE GRINDER Rocio Mccarthy MD LAB - BLOOD ORDER [place] [facility] [place] [facility] [address] [facility], [address] [place] [address] [address], [facility] [phone] * T3 Free (10/11/2023 3:40 PM PROFILE GRINDER) T3 Free 2.7 2.0 - 4.4 pg/mL 10/11/2023 10:16 PM PROFILE GRINDER [facility] Blood BLOOD SPECIMEN / Unknown Venipuncture / Unknown 10/11/2023 3:40 PM PROFILE GRINDER 10/11/2023 3:40 PM PROFILE GRINDER Rocio Mccarthy MD LAB - BLOOD ORDER [place] [address] [facility], [address] [address], [facility] [phone] * T4 free (10/11/2023 3:40 PM PROFILE GRINDER) Free T4 1.05 0.90 - 1.70 ng/dL 10/11/2023 10:16 PM PROFILE GRINDER [facility] Blood BLOOD SPECIMEN / Unknown Venipuncture / Unknown 10/11/2023 3:40 PM PROFILE GRINDER 10/11/2023 3:40 PM PROFILE GRINDER Rocio Mccarthy MD LAB - BLOOD ORDER [facility] [place] [facility] [address] [facility], [address] [address], [facility] [phone] * TSH (08/23/2023 1:26 PM PROFILE GRINDER) TSH 2.58 0.30 - 4.20 uIU/mL 08/24/2023 4:01 AM PROFILE GRINDER [facility] Blood BLOOD SPECIMEN / Unknown Venipuncture / Unknown 08/23/2023 1:26 PM PROFILE GRINDER 08/23/2023 1:26 PM PROFILE GRINDER Rocio Mccarthy MD LAB - BLOOD ORDER [place] [facility] [place] [facility] [address] [facility], [address] [address], [facility] [phone] * T3 Free (08/23/2023 1:26 PM PROFILE GRINDER) T3 Free 2.7 2.0 - 4.4 pg/mL 08/24/2023 4:01 AM PROFILE GRINDER [facility] Blood BLOOD SPECIMEN / Unknown Venipuncture / Unknown 08/23/2023 1:26 PM PROFILE GRINDER 08/23/2023 1:26 PM PROFILE GRINDER Rocio Mccarthy MD LAB - BLOOD ORDER [place] Performing Organization Address City/[facility]/ZIP Co de Phone Number [facility] [place] [facility] [address] [facility], [address] [address], [facility] [phone] * T4 free (08/23/2023 1:26 PM PROFILE GRINDER) Free T4 1.16 0.90 - 1.70 ng/dL 08/24/2023 4:01 AM PROFILE GRINDER [facility] Blood BLOOD SPECIMEN / Unknown Venipuncture / Unknown 08/23/2023 1:26 PM PROFILE GRINDER 08/23/2023 1:26 PM PROFILE GRINDER Rocio Mccarthy MD LAB - BLOOD ORDER [place] [facility] [place] [facility] [address] 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
--- OUTSIDE RECORDS SUMMARY | 2023-11-24 07:32 | XMS_ITS | Encounter Summary ---
Author Name Unknown Organization [place] Address [address] [place] [address]. [place] [address] Care Team Providers Care Order Entry Specialist Name Role Phone Billie Guadarrama Primary Care Provider [phone] Rocio Mccarthy MD Unavailable [phone] Reason for Visit * Reason Comments Ultrasound TV-short cervix Encounter Details Date Type Department Care Team (Late st Contact Info) Description 08/01/2023 11:30 AM CDT Office Visit [facility] M[facility] Medicine [facility] [place] [address] [facility] [address] [place] [address] Anthony Shaffer MD [address] [place], [place] [address] Erica Tristan MD [address] [place], [place] [address] Short cervix affecting (Primary Dx); History of [...] Sex Assigned at Female 10/05/2020 9:54 PM THIRD GRADE TEACHER Gender Identity Female 10/05/2020 9:54 PM THIRD GRADE TEACHER Sexual Orientation Straight 10/05/2020 9: 54 PM THIRD GRADE TEACHER documented as of this encounter Progress Notes * Erica Tristan MD - 08/01/2023 11:30 AM CDT The patient was seen for an ultrasound in the Maternal- Medicine Center at the [facility] today. For a detailed report of the ultrasound examination, please see the ultrasound report which can be found under the imaging tab. If you have questions regarding today's evaluation or if we can be of further service, please contact the Maternal- Medicine Center. Erica Tristan MD Rubber Extrusion Machine Operator, METAL DIE FINISHER Maternal- Medicine [phone] (Pager) documented in this encounter Plan of Treatment Upcoming Encounters Date Type Department Care Team (Late st Contact Info) Description 12/12/2023 9:00 AM THIRD GRADE TEACHER Office Visit [facility] Maternal Medicine [facility] [address] [place] [address] Erica Tristan MD [address] [place], [place] [address] 12/12/2023 9:30 AM THIRD GRADE TEACHER Appointment [facility] Medicine [facility] [address] [place] [address] Derrick Valenzuela MD [address] [place], [place] [address] 04/17/2024 9:00 AM CDT Virtual Visit [facility] [address] [place] [phone] Rocio Mccarthy MD [address] [place] [address] documented as of this encounter Visit Diagnoses Diagnosis Short cervix affecting - Primary Cervical shortening, unspecified as to episode of care or not applicable History of prior with short cervix, currently documented in this encounter Additional Health Concerns Assessment Noted Time PHQ-9 Depression Total Score: 023 10:04 AM CDT documented as of this encounter Care Teams Order Entry Specialist Relationship Specialty Start Date End Date Billie Guadarrama PCP - General 12/17/19 Rocio Mccarthy MD [address] [place] [address] Assigned Endocrinology Provider 04/24/22 documented as of this encounter
--- OUTSIDE RECORDS SUMMARY | 2023-11-24 07:32 | XMS_ITS | Encounter Summary ---
Author Name Unknown Organization [place] Address [address] [place] [address]. [place] [address] Care Team Providers Care Finishing Trimmer Name Role Phone Billie Guadarrama Primary Care Provider [phone] Rocio Mccarthy MD Unavailable [phone] Encounter Details Date Type Department Care Team (Late st Contact Info) Description 04/02/2023 Telephone [facility] [address] [place] [address] [place] [address] Rocio Mccarthy MD [address] [place], [place] [address] Social History Tobacco Use Types Packs/Day Years [...] Sex Assigned at Female 10/05/2020 9:54 PM SOURCING CONSULTANT Gender Identity Female 10/05/2020 9:54 PM SOURCING CONSULTANT Sexual Orientation Straight 10/05/2020 9: 54 PM SOURCING CONSULTANT COVID-19 Exposure Response Date Recorded In the [...] st Contact Info) Description 12/12/2023 9:00 AM SOURCING CONSULTANT Office Visit [facility] Medicine [facility] [address] [facility] [address] [place] [address] Erica Tristan MD [address] [place], [place] [address] 12/12/2023 9:30 AM SOURCING CONSULTANT Appointment [facility] M[facility] Medicine Center [place] [address] [place] [address] Derrick Valenzuela MD [address] [place], [place] [address] 04/17/2024 9:00 AM CDT Virtual Visit [facility] [address] [place] [address] [place] [address] Rocio Mccarthy MD [address] [place], [place] [address] documented as of this encounter Results * (ABNORMAL) TSH (06/07/2023 3:33 PM CDT) TSH 4.86(H) 0.30 - 4.20 uIU/mL 06/07/2023 8:40 PM CDT [facility] Blood BLOOD SPECIMEN / Unknown Venipuncture / Unknown 06/07/2023 3:33 PM CDT 06/07/2023 3:33 PM CDT Rocio Mccarthy MD LAB - BLOOD ORDER LORNA [facility] [place] [facility] [address] [facility], [address] [place] [address], [facility] [phone] * T4 free (06/07/2023 3:33 PM CDT) Free T4 1.03 0.90 - 1.70 ng/dL 06/07/2023 8:40 PM CDT [facility] Blood BLOOD SPECIMEN / Unknown Venipuncture / Unknown 06/07/2023 3:33 PM CDT 06/07/2023 3:33 PM CDT Rocio Mccarthy MD LAB - BLOOD ORDER LORNA [facility] [place] [facility] [address] [facility], [address] [address], [facility] [phone] documented in this encounter Visit Diagnoses Diagnosis 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
--- OUTSIDE RECORDS SUMMARY | 2023-11-24 07:32 | XMS_ITS | Encounter Summary ---
Author Name Unknown Organization [place] Address [address] [place] [address]. [place] [address] Care Team Providers Care Peach Grower Name Role Phone Chiara Billie Primary Care Provider [phone] Rocio Mccarthy MD Unavailable [phone] Reason for Visit * Reason Comments Ultrasound L2/TV-Hx PTL with te rm delivery, BMI 34 Consult Hx PTL with term del elaine, BMI 34 Encounter Details Date Type Department Care Team (Late st Contact Info) Description 07/19/2023 PRE VISIT [facility] Maternal Medicine Center [place] [address] [facility] [address] [place] [address] Paula Royal RN Ultrasound (L2/TV-Hx [...] Sex Assigned at Female 10/05/2020 9:54 PM OPHTHALMOLOGY TECHNICIAN Gender Identity Female 10/05/2020 9:54 PM OPHTHALMOLOGY TECHNICIAN Sexual Orientation Straight 10/05/2020 9: 54 PM OPHTHALMOLOGY TECHNICIAN documented as of this encounter Plan of Treatment Upcoming Encounters Date Type Department Care Team (Late st Contact Info) Description 12/12/2023 9:00 AM OPHTHALMOLOGY TECHNICIAN Office Visit [facility] Maternal Medicine [facility] [address] [facility] [address] [place] [address] Erica Tristan MD [address] [place], [place] [address] 12/12/2023 9:30 AM OPHTHALMOLOGY TECHNICIAN Appointment [facility] Maternal Medicine [place] [address] [facility] [address] [place] [address] Derrick Valenzuela MD [address] [place], [place] [address] 04/17/2024 9:00 AM CDT Virtual Visit [place] [address] [address] [facility] [address] [place] [address] Rocio Mccarthy MD [address] [place], [place] [address] documented as of this encounter Visit Diagnoses Not on filedocumented in this encounter Additional Health Concerns Assessment Noted Time PHQ-9 Depression Total Score: 11 023 10:04 AM CDT documented as of this encounter Care Teams Peach Grower Relationship Specialty Start Date End Date Billie Guadarrama PCP - General 12/17/19 Rocio Mccarthy MD [address] [place] [address] Assigned Endocrinology Provider 04/24/22 documented as of this encounter
--- OUTSIDE RECORDS SUMMARY | 2023-11-24 07:32 | XMS_ITS | Encounter Summary ---
Author Name Unknown Organization [facility] Address [address] [place] [address]. [place] [address] Care Team Providers Care Golf Cart Maker Name Role Phone Billie Guadarrama Primary Care Provider [phone] Rocio Mccarthy MD Unavailable [phone] Erica Tristan MD Unavailable [phone] Encounter Details Date Type Department Care Team (Latest Contact Info) Description 05/30/2023 MyC Medical Advice [facility] [address] [facility] [address] [place] [address] Rocio Mccarthy MD [address] [place] [address] 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 [...] Sex Assigned at Female 10/05/2020 9:54 PM DATA ENTRY OPERATOR Gender Identity Female 10/05/2020 9:54 PM DATA ENTRY OPERATOR Sexual Orientation Straight 10/05/2020 9: 54 PM DATA ENTRY OPERATOR documented as of this encounter Miscellaneous Notes * Telephone Encounter - Chelita Harrell CMA - 06/08/2023 9:08 AM CDT She can only do Tuesdays. I put her down for 06/21 at 10:30 for a video visit. Maritza Harrell CMA [facility] [phone] * Telephone Encounter - Chelita Harrell CMA - 06/08/2023 8:50 AM CDT Message sent via [employer]. Maritza Harrell CMA [facility] [phone] * Telephone Encounter - Nahed Woodruff - 06/06/2023 11:43 AM CDT .- lmtcb x2 * Telephone Encounter - Janice Woodruff - 06/02/2023 11:59 AM CDT 24- lmtcb x1 to schedule with Dr. Mccarthy * Telephone Encounter - Rocio Mccarthy MD - 05/31/2023 2:02 PM CDT Ok for free t3. She is not on t3 supplement * Telephone Encounter - Nahed Woorduff - 05/31/2023 11:28 AM CDT .22- lmtcb [...] st Contact Info) Description 12/12/2023 9:00 AM DATA ENTRY OPERATOR Office Visit [facility] Maternal Medicine [facility] [address] [facility] [address] [place] [address] Erica Tristan MD [address] [place] [address] 12/12/2023 9:30 AM DATA ENTRY OPERATOR Appointment [facility] Maternal Medicine Center [place] [address] [place] [address] Derrick Valenzuela MD [address] [place], [place] [address] 04/17/2024 9:00 AM CDT Virtual Visit [facility] [address] [place] [address] [place] [address] Rocio Mccarthy MD [address] [facility] [address] [place] [address] documented as of this encounter Results * T3, Free (06/07/2023 3:33 PM CDT) T3 Free 2.4 2.0 - 4.4 pg/mL 06/07/2023 8:40 PM CDT [facility] Blood BLOOD SPECIMEN / Unknown Venipuncture / Unknown 06/07/2023 3:33 PM CDT 06/07/2023 3:33 PM CDT Rocio Mccarthy MD LAB - BLOOD ORDER LOR[place] [facility] [place] [facility] [address] [facility], [address] [place] [address] [phone] documented in this encounter Visit Diagnoses Diagnosis 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
--- OUTSIDE RECORDS SUMMARY | 2023-11-24 07:32 | XMS_ITS | Encounter Summary ---
Author Name Unknown Organization [place] Address [address] [place] [address]. [place] [address] Care Team Providers Care Hammersmith Helper Name Role Phone Chiara Billie Primary Care Provider [phone] Rocio Mccarthy MD Unavailable [phone] Encounter Details Date Type Department Care Team [...] Sex Assigned at Female 10/05/2020 9:54 PM EMBOSSER OPERATOR Gender Identity Female 10/05/2020 9:54 PM EMBOSSER OPERATOR Sexual Orientation Straight 10/05/2020 9: 54 PM EMBOSSER OPERATOR documented as of this encounter Plan of Treatment Upcoming Encounters Date Type Department Care Team ( Contact Info) Description 12/12/2023 9:00 AM EMBOSSER OPERATOR Office Visit [facility] Maternal Medicine [facility] [address] [place] [address] Erica Tristan MD [address] [place] [address] 12/12/2023 9:30 AM EMBOSSER OPERATOR Appointment [facility] Medicine [facility] [address] [facility] [address] [place] [address] Derrick Valenzuela MD [address] [place] [address] 04/17/2024 9:00 AM CDT Virtual Visit [facility] [address] [place] [address] [place] [address] Rocio Mccarthy MD [address] [place] [address] documented as of this encounter Visit Diagnoses Not on filedocumented in this encounter Additional Health Concerns Assessment Noted Time PHQ-9 Depression Total Score: 11 023 10:04 AM CDT documented as of this encounter Care Teams Hammersmith Helper Relationship Specialty Start Date End Date Billie Guadarrama PCP - General 12/17/19 Rocio Mccarthy MD [address] [place] [address] Assigned Endocrinology Provider 04/24/22 documented as of this encounter
--- OUTSIDE RECORDS SUMMARY | 2023-11-24 07:33 | XMS_ITS | Encounter Summary ---
Author Name Unknown Organization [place] Address [address] [place] [address]. [place] [address] Care Team Providers Care Technology Professional Name Role Phone Billie Guadarrama Primary Care Provider Rocio Mccarthy MD Unavailable [phone] Erica Tritsan MD Unavailable [phone] Encounter Details Date Type Department Care Team (Late st Contact Info) Description 05/31/2022 MyC Medical Advice [facility] [address] [facility] [address] [place] [address] Rocio Mccarthy MD [address] [place] [address] Social History Tobacco Use Types [...] Assigned at Female 10/05/2020 9:54 PM FUR NAILER Gender Identity Female 10/05/2020 9:54 PM FUR NAILER Sexual Orientation Straight 10/05/2020 9: 54 PM FUR NAILER documented as of this encounter Miscellaneous Notes [...] Contact Info) Description 12/12/2023 9:00 AM FUR NAILER Office Visit [facility] Maternal Medicine [facility] [address] [place] [address] Erica Tristan MD [address] [place], [place] [address] 12/12/2023 9:30 AM FUR NAILER Appointment [facility] Maternal Medicine [facility] [address] [place] [phone] Derrick Valenzuela MD [address] [place], [place] [address] 04/17/2024 9:00 AM CDT Virtual Visit [facility] [address] [place] [address] [place] [address] Rocio Mccarthy MD [address] [place], [place] [address] documented as of this encounter Visit Diagnoses Not on filedocumented in this encounter Care Teams Technology Professional Relationship Specialty Start Date End Date ChiaraBillie PCP - General 12/17/19 Rocio Mccarthy MD [address] [place] [address] Assigned Endocrinology Provider 04/24/22 Erica Tristan MD [address] [place] [address] Assigned OBGYN Provider 08/06/23 documented as of this encounter
--- OUTSIDE RECORDS SUMMARY | 2023-11-24 07:33 | XMS_ITS | Encounter Summary ---
Author Name Unknown Organization [facility] Address [address] [place] [address]. [place] [address] Care Team Providers Care Wound Specialist Name Role Phone Billie Guadarrama Primary Care Provider Rocio Mccarthy MD Unavailable [phone] Anthony Shaffer MD Unavailable Rocio Mccarthy MD Unavailable [phone] Erica Tristan MD Unavailable [phone] Reason for Visit * Reason Onset Date Comments MyChart Communication 10/05/2020 Encounter Details Date Type Department Care Team (Latest Contact Info) Description 10/05/2020 MyC Medical Advice [facility] [address] [place] [address] Rocio Mccatrhy MD [address] [place] [address] MyChart Communication Social History Tobacco [...] Sex Assigned at Female 10/05/2020 9:54 PM REGISTER IN CHANCERY Gender Identity Female 10/05/2020 9:54 PM REGISTER IN CHANCERY Sexual Orientation Straight 10/05/2020 9: 54 PM REGISTER IN CHANCERY COVID-19 Exposure Response Date Recorded In the last month, have you been in contact with someone who was confirmed or suspected to have Coronavirus / COVID-19? No / Unsure 10/08/2020 8:54 AM REGISTER IN CHANCERY documented as of this encounter Miscellaneous Notes * Telephone Encounter - Janis Kendrick, RN - 10/06/2020 3:51 PM CST My chart message sent by patient. My chart message sent to patient. STER IN CHANCERY documented in this encounter Plan of Treatment Upcoming Encounters Date Type Department Care Team (Late st Contact Info) Description 12/12/2023 9:00 AM REGISTER IN CHANCERY Office Visit [facility] Maternal Medicine [facility] [address] [place] [phone] Erica Tristan MD [address] [place], [place] [address] 12/12/2023 9:30 AM REGISTER IN CHANCERY Appointment [facility] Maternal Medicine [facility] [address] [place] [phone] Derrick Valenzuela MD [address] [place], [place] [address] 04/17/2024 9:00 AM CDT Virtual Visit [facility] [address] [place] [phone] Rocio Mccarthy MD [address] [place], [place] [address] documented as of this encounter Visit Diagnoses Not on filedocumented in this encounter Care Teams Wound Specialist Relationship Specialty Start Date End Date Billie Guadarrama PCP - General 12/17/19 Rocio Mccarthy MD [address] [place] [address] Assigned Endocrinology Provider 08/01/20 11/28/21 Anthony Shaffer MD [address] [place], [place] [address] Assigned OBGYN Provider 05/10/21 Rocio Mccarthy MD [address] [place], [place] [address] Assigned Endocrinology Provider 04/24/22 Erica Tristan MD [address] [place] [address] Assigned OBGYN Provider 08/06/23 documented as of this encounter
--- OUTSIDE RECORDS SUMMARY | 2023-11-24 07:33 | XMS_ITS | Encounter Summary ---
Author Name Unknown Organization [facility] Address [address] [place] [address]. [place] [address] Care Team Providers Care Performance Architect Name Role Phone Chiara Billie Primary Care Provider Rocio Mccarthy MD Unavailable [phone] Erica Tristan MD Unavailable [phone] Reason for Referral * Diagnostic Imaging Ultrasound (Routine) - Closed Specialty Diagnoses / Procedures Referred By Contreinaldo t Referred To Contact 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 Procedures US Head Neck Soft Tissue Rocio Mccarthy MD [address] [address] [place] [address] Referral ID Status Reason Start Date Expiration Date Visits Re quested Visits Authorized [id number] Closed 06/03/2022 06/03/2023 1 1 Reason for Visit * Reason Onset Date Comments Call Back 06/01/2022 Encounter Details Date Type Department Care Team (Late st Contact Info) Description 06/01/2022 Telephone [facility] [address] [place] [address] Rocio Mccarthy MD [address] [facility] [address] [place], [place] [address] Call Back Social History Tobacco Use Types [...] Sex Assigned at Female 10/05/2020 9:54 PM RESEARCH EXECUTIVE Gender Identity Female 10/05/2020 9:54 PM RESEARCH EXECUTIVE Sexual Orientation Straight 10/05/2020 9: 54 PM RESEARCH EXECUTIVE documented as of this encounter Miscellaneous Notes [...] Sharmin Peacock - 06/01/2022 10:21 AM CDT [facility] Phone Message May a [...] st Contact Info) Description 12/12/2023 9:00 AM RESEARCH EXECUTIVE Office Visit [facility] Maternal Medicine [facility] [address] [place] [phone] Erica Tristan MD [address] [place], [place] [address] 12/12/2023 9:30 AM RESEARCH EXECUTIVE Appointment [facility] Maternal Medicine [facility] [address] [place] [phone] Derrick Valenzuela MD [address] [place] [address] 04/17/2024 9:00 AM CDT Virtual Visit [facility] [address] [place] [address] Rocio Mccarthy MD [address] [place] [address] documented as of this encounter Results * [...] thyroiditis documented in this encounter Care Teams Performance Architect Relationship Specialty Start Date End Date Billie Guadarrama PCP - General 12/17/19 Rocio Mccarthy MD [address] [place] [address] Assigned Endocrinology Provider 04/24/22 Erica Tritsan MD [address] [place] [address] Assigned OBGYN Provider 08/06/23 documented as of this encounter
--- OUTSIDE RECORDS SUMMARY | 2023-11-24 07:33 | XMS_ITS | Encounter Summary ---
Author Name Unknown Organization [facility] Address [address] [place] [address]. [place] [address] Care Team Providers Care Log Deckman Name Role Phone Billie Guadarrama Primary Care Provider [phone] Rocio Mccarthy MD Unavailable [phone] Anthony Shaffer MD Unavailable [phone] Rocio Mccarthy MD Unavailable Erica Tristan MD Unavailable [phone] Encounter Details Date Type Department Care Team (Late st Contact Info) Description 06/08/2021 MyC Medical Advice [facility] [address] [facility] [address] [place] [address] Chelita Harrell, [facility] Social History Tobacco Use Types Packs/Day Years [...] Sex Assigned at Female 10/05/2020 9:54 PM AVIATION NEUROPSYCHOLOGIST Gender Identity Female 10/05/2020 9:54 PM AVIATION NEUROPSYCHOLOGIST Sexual Orientation Straight 10/05/2020 9: 54 PM AVIATION NEUROPSYCHOLOGIST COVID-19 Exposure Response Date Recorded In the last month, have you been in contact with someone who was confirmed or suspected to have Coronavirus / COVID-19? No / Unsure 06/04/2021 4:39 PM CDT documented as of this encounter Plan of Treatment Upcoming Encounters Date Type Department Care Team (Late st Contact Info) Description 12/12/2023 9:00 AM AVIATION NEUROPSYCHOLOGIST Office Visit [facility] Maternal Medicine [facility] [address] [facility] [address] [place] [phone] Erica Tristan MD [address] [place], [place] [address] 12/12/2023 9:30 AM AVIATION NEUROPSYCHOLOGIST Appointment [facility] Medicine [place] [address] [facility] [address] [place] [address] Derrick Valenzuela MD [address] [place], [place] [address] 04/17/2024 9:00 AM CDT Virtual Visit [place] [address] [facility] [address] [place] [phone] Rocio Mccarthy MD [address] [place], [place] [address] documented as of this encounter Visit Diagnoses Not on filedocumented in this encounter Care Teams Log Deckman Relationship Specialty Start Date End Date Billie Guadarrama PCP - General 12/17/19 Rocio Mccarthy MD [address] [place] [address] Assigned Endocrinology Provider 08/01/20 11/28/21 Anthony Shaffer MD [address] [place], [place] [address] Assigned OBGYN Provider 05/10/21 Rocio Mccarthy MD [address] [place], [place] [address] Assigned Endocrinology Provider 04/24/22 Erica Tristan MD [address] [place], [place] [address] Assigned OBGYN Provider 08/06/23 documented as of this encounter
--- OUTSIDE RECORDS SUMMARY | 2023-11-24 07:33 | XMS_ITS | Encounter Summary ---
Author Name Unknown Organization [facility] Address [address] [place] [address]. [place] [address] Care Team Providers Care Rail Flaw Detector Operator Name Role Phone Chiara Billie Primary Care Provider [phone] Rocio Mccarthy MD Unavailable [phone] Encounter Details Date Type Department Care Team (Late st Contact Info) Description 12/23/2022 3:45 PM CDT Lab [facility] [address] [facility] [address] [place] [address] 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 [...] Sex Assigned at Female 10/05/2020 9:54 PM PLATE MAKER ZINC Gender Identity Female 10/05/2020 9:54 PM PLATE MAKER ZINC Sexual Orientation Straight 10/05/2020 9: 54 PM PLATE MAKER ZINC COVID-19 Exposure Response Date Recorded In the last 10 days, have yo u been in contact with someone who was confirmed or suspected to have Coronavirus/COVID-19? No / Unsure 12/23/2022 3:27 PM CDT documented as of this encounter Plan of Treatment Upcoming Encounters Date Type Department Care Team (Late st Contact Info) Description 12/12/2023 9:00 AM PLATE MAKER ZINC Office Visit [facility] Medicine [facility] [address] [place] [address] Erica Tristan MD [address] [place], [place] [address] 12/12/2023 9:30 AM PLATE MAKER ZINC Appointment [facility] [address] [place] [phone] Derrick Valenzuela MD [address] [place], [place] [address] 04/17/2024 9:00 AM CDT Virtual Visit [facility] [address] [place] [phone] Rocio Mccarthy MD [address] [place], [place] [address] documented as of this encounter Procedures Procedure [...] LAB - BLOOD ORDER [facility] [place] [facility] [address] [facility], [address] [place] [address], [facility] [phone] * T4 free (12/23/2022 3:33 PM CDT) Free T4 1.38 0.90 - 1.70 ng/dL 12/23/2022 8:35 PM CDT [facility] Blood STRUCTURE OF LEFT UPPER LIMB / Unknown Venipuncture / Unknown 12/23/2022 3:33 PM CDT 12/23/2022 3:33 PM CDT Rocio Mccarthy MD LAB - BLOOD ORDER [facility] [place] [facility] [address] [facility], [address] [place] [address], [facility] [phone] documented in this encounter Visit Diagnoses Diagnosis 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 documented in this encounter Care Teams Rail Flaw Detector Operator Relationship Specialty Start Date End Date Billie Guadarrama PCP - General 12/17/19 Rocio Mccarthy MD [address] [place] [address] Assigned Endocrinology Provider 04/24/22 documented as of this encounter
--- OUTSIDE RECORDS SUMMARY | 2023-11-24 07:33 | XMS_ITS | Encounter Summary ---
Author Name Unknown Organization [facility] Address [address] [place] [address]. [place] [address] Care Team Providers Care Material Control Specialist Name Role Phone Billie Guadarrama Primary Care Provider Anthony Shaffer MD Unavailable [phone] Rocio Mccarthy MD Unavailable [phone] Erica Tristan MD Unavailable [phone] Encounter Details Date Type Department Care Team (Late st Contact Info) Description 03/31/2022 MyC Medical Advice [facility] [address] [place] [address] Rocio Mccarthy MD [address] [place] [address] Social History Tobacco Use Types [...] Sex Assigned at Female 10/05/2020 9:54 PM MEDICAL BILLING ASSOCIATE Gender Identity Female 10/05/2020 9:54 PM MEDICAL BILLING ASSOCIATE Sexual Orientation Straight 10/05/2020 9: 54 PM MEDICAL BILLING ASSOCIATE documented as of this encounter Miscellaneous Notes * Telephone Encounter - Jina Harrell RN - 04/01/2022 8:21 AM CDT Okay to use ANGÉLICA spot documented in this encounter Plan of Treatment Upcoming Encounters Date Type Department Care Team (Late st Contact Info) Description 12/12/2023 9:00 AM MEDICAL BILLING ASSOCIATE Office Visit [facility] Maternal Medicine [facility] [address] [place] [phone] Erica Tristan MD [address] [place], [place] [address] 12/12/2023 9:30 AM MEDICAL BILLING ASSOCIATE Appointment [facility] Maternal Medicine [facility] [address] [place] [phone] Derrick Valenzuela MD [address] [place], [place] [address] 04/17/2024 9:00 AM CDT Virtual Visit [facility] [address] [place] [phone] Rocio Mccarthy MD [address] [place], [place] [address] documented as of this encounter Visit Diagnoses Not on filedocumented in this encounter Care Teams Material Control Specialist Relationship Specialty Start Date End Date Billie Guadarrama PCP - General 12/17/19 Anthony Shaffer MD [address] [place] [address] Assigned OBGYN Provider 05/10/21 Rocio Mccarthy MD [address] [place] [address] Assigned Endocrinology Provider 04/24/22 Erica Tristan MD [address] [facility] [address] [place] [address] Assigned OBGYN Provider 08/06/23 documented as of this encounter
--- OUTSIDE RECORDS SUMMARY | 2023-11-24 07:33 | XMS_ITS | Encounter Summary ---
Author Name Unknown Organization [facility] Address [address] [place] [address]. [place] [address] Care Team Providers Care Dipper And Baker Name Role Phone Billie Guadarrama Primary Care Provider Rocio Mccarthy MD Unavailable [phone] Erica Tristan MD Unavailable [phone] Encounter Details Date Type Department Care Team (Late st Contact Info) Description 03/23/2023 MyC Medical Advice [facility] [address] [facility] [address] [place] [address] Rocio Mccarthy MD [address] [place] [address] Social History Tobacco Use Types [...] Sex Assigned at Female 10/05/2020 9:54 PM TELEGRAPH SERVICE CLERK Gender Identity Female 10/05/2020 9:54 PM TELEGRAPH SERVICE CLERK Sexual Orientation Straight 10/05/2020 9: 54 PM TELEGRAPH SERVICE CLERK documented as of this encounter Miscellaneous Notes * Telephone Encounter - Rocio Mccarthy MD - 03/28/2023 4:49 PM CDT Noted low TSH. Please place orders for TSH, Free T4 and T3 levels. Furhter work up based on that. documented in this encounter Plan of Treatment Upcoming Encounters Date Type Department Care Team (Late st Contact Info) Description 12/12/2023 9:00 AM TELEGRAPH SERVICE CLERK Office Visit [facility] Maternal Medicine [facility] [address] [place] [phone] Erica Tristan MD [address] [place], [place] [address] 12/12/2023 9:30 AM TELEGRAPH SERVICE CLERK Appointment [facility] Maternal Medicine [facility] [address] [place] [phone] Derrick Valenzuela MD [address] [place], [place] [address] 04/17/2024 9:00 AM CDT Virtual Visit [facility] [address] [place] [phone] Rocio Mccarthy MD [address] [place], [place] [address] documented as of this encounter Visit Diagnoses Not on filedocumented in this encounter Care Teams Dipper And Baker Relationship Specialty Start Date End Date Billie Guadarrama PCP - General 12/17/19 Rocio Mccarthy MD [address] [place] [address] Assigned Endocrinology Provider 04/24/22 Erica Tristan MD [address] [place] [address] Assigned OBGYN Provider 08/06/23 documented as of this encounter
--- OUTSIDE RECORDS SUMMARY | 2023-11-24 07:33 | XMS_ITS | Encounter Summary ---
Author Name Unknown Organization [facility] Address [address] [place] [address]. 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 Maternal Medicine [facility] [address] [facility] [address] [place] [phone] Erica Tristan MD [address] [place], [place] [address] 12/12/2023 9:30 AM MOTORCYCLE SUBASSEMBLY REPAIRER Appointment [facility] Maternal Medicine [facility] [address] [place] [phone] Derrick Valenzuela MD [address] [place], [place] [address] 04/17/2024 9:00 AM CDT Virtual Visit [facility] [address] [place] [address] [place] [address] Rocio Mccarthy MD [address] [place], [place] [address] documented as of this encounter Results * (ABNORMAL) T3 Free (11/18/2021 12:41 PM MOTORCYCLE SUBASSEMBLY REPAIRER) T3 Free 1.5(L) 2.3 - 4.2 pg/mL 11/18/2021 6:34 PM MOTORCYCLE SUBASSEMBLY REPAIRER [facility] Blood VENOUS BLOOD / Unknown Venipuncture / Unknown 11/18/2021 12:41 PM MOTORCYCLE SUBASSEMBLY REPAIRER 11/18/2021 12:41 PM MOTORCYCLE SUBASSEMBLY REPAIRER Rocio Mccarthy MD LAB - BLOOD ORDER [facility] [place] [facility] [address] [facility], [address] [place] [address], [facility] [phone] * (ABNORMAL) T4 free (11/18/2021 12:41 PM MOTORCYCLE SUBASSEMBLY REPAIRER) Free T4 0.64(L) 0.76 - 1.46 ng/dL 11/18/2021 7:16 PM MOTORCYCLE SUBASSEMBLY REPAIRER [facility] Blood VENOUS BLOOD / Unknown Venipuncture / Unknown 11/18/2021 12:41 PM MOTORCYCLE SUBASSEMBLY REPAIRER 11/18/2021 12:41 PM MOTORCYCLE SUBASSEMBLY REPAIRER Rocio Mccarthy MD LAB - BLOOD ORDER [facility] [address] [place] [address] Lab (no room number, 1st floor of clinic) [place] [address], [facility] [phone] * (ABNORMAL) TSH (11/18/2021 12:41 PM MOTORCYCLE SUBASSEMBLY REPAIRER) Pathologist [facility] TSH 104.91(H) 0.40 - 4.00 mU/L 11/18/2021 8:05 PM MOTORCYCLE SUBASSEMBLY REPAIRER LABORATORY Blood VENOUS BLOOD / Unknown Venipuncture / Unknown 11/18/2021 12:41 PM MOTORCYCLE SUBASSEMBLY REPAIRER 11/18/2021 12:41 PM MOTORCYCLE SUBASSEMBLY REPAIRER Rocio Mccarthy MD LAB - BLOOD ORDER [facility] [address] [place] [address] Lab (no room number, 1st floor of clinic) [place] [address], [facility] [phone] * Thyroglobulin and Antibody Reflex (11/18/2021 12:41 PM MOTORCYCLE SUBASSEMBLY REPAIRER) Thyroglobulin Antibody <20 <40 IU/mL 11/19/2021 1:39 PM MOTORCYCLE SUBASSEMBLY REPAIRER SPECIALTY CORE/PROT/END O Blood VENOUS BLOOD / Unknown Venipuncture / Unknown 11/18/2021 12:41 PM MOTORCYCLE SUBASSEMBLY REPAIRER 11/18/2021 12:41 PM MOTORCYCLE SUBASSEMBLY REPAIRER Rocio Mccarthy MD LAB - BLOOD ORDER [facility] SPECIALTY CORE/PROT/ENDO [facility] Specialty Core/Prot/Endo [address] [facility], [address] [phone] * T3 reverse (11/18/2021 12:41 PM MOTORCYCLE SUBASSEMBLY REPAIRER) T3, Reverse ng/dL 10.3 9.0 - 27.0 ng/dL 11/23/2021 4:48 PM MOTORCYCLE SUBASSEMBLY REPAIRER [employer] Comment: INTERPRETIVE INFORMATION: Triiodothyronine, Reverse - LC-MS/MS This test was developed and its performance characteristics determined by [facility]. It has not been cleared or approved by the [place] Food and Drug Administration. This test was performed in a CLIA certified laboratory and is intended for clinical purposes. 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 documented in this encounter Care Teams Bowling Ball Grader And Marker Relationship Specialty Start Date End Date Billie Guadarrama PCP - General 12/17/19 Rocio Mccarthy MD [address] [facility] [address] [place] [address] Assigned Endocrinology Provider 10/23/20 2/19/22 Anthony Shaffer MD [address] [place], [place] [phone] Assigned OBGYN Provider 05/10/21 Rocio Mccarthy MD [address] [place] [address] Assigned Endocrinology Provider 04/24/22 Erica Tristan MD [address] [place] [address] Assigned OBGYN Provider 08/06/23 documented as of this encounter
--- OUTSIDE RECORDS SUMMARY | 2023-11-24 07:33 | XMS_ITS | Encounter Summary ---
Author Name Unknown Organization [facility] Address [address] [place] [address]. [place] [address] Care Team Providers Care Sand Plant Attendant Name Role Phone Selinsusan Billie Primary Care Provider [phone] Anthony Shaffer MD Unavailable [phone] Rocio Mccarthy MD Unavailable Erica Tristan MD Unavailable [phone] Encounter Details Date Type Department Care Team (Late st Contact Info) Description 04/19/2022 MyC Medical Advice [address] [place] [phone] Jina Harrell V, RN Social History Tobacco [...] Sex Assigned at Female 10/05/2020 9:54 PM NURSING CARE ATTENDANT Gender Identity Female 10/05/2020 9:54 PM NURSING CARE ATTENDANT Sexual Orientation Straight 10/05/2020 9: 54 PM NURSING CARE ATTENDANT COVID-19 Exposure Response Date Recorded In the last 10 days, have yo u been in contact with someone who was confirmed or suspected to have Coronavirus/COVID-19? No / Unsure 04/05/2022 11:57 AM CDT documented as of this encounter Plan of Treatment Upcoming Encounters Date Type Department Care Team (Late st Contact Info) Description 12/12/2023 9:00 AM NURSING CARE ATTENDANT Office Visit [facility] Maternal Medicine [facility] [address] [facility] [address] [facility] [address] [place] [phone] Erica Tristan MD [address] [place], [place] [phone] 12/12/2023 9:30 AM NURSING CARE ATTENDANT Appointment [facility] Medicine [facility] [address] [facility] [address] [facility] [address] [place] [phone] Derrick Valenzuela MD [address] [place], [place] [phone] 04/17/2024 9:00 AM CDT Virtual Visit [facility] [address] [facility] [address] [place] [phone] Rocio Mccarthy MD [address] [place], [place] [address] documented as of this encounter Visit Diagnoses Not on filedocumented in this encounter Care Teams Sand Plant Attendant Relationship Specialty Start Date End Date Billie Guadarrama PCP - General 12/17/19 Anthony Shaffer MD [address] [place], [place] [phone] Assigned OBGYN Provider 05/10/21 Rocio Mccarthy MD [address] [place] [address] Assigned Endocrinology Provider 04/24/22 Erica Tristan MD [address] [place] [address] Assigned OBGYN Provider 08/06/23 documented as of this encounter
--- OUTSIDE RECORDS SUMMARY | 2023-11-24 07:33 | XMS_ITS | Encounter Summary ---
Author Name Unknown Organization [facility] Address [address] [place] [address]. 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 No / Unsure 12/23/2022 3:27 PM CDT documented as of this encounter Patient Instructions * Patient Instructions* Rocio Mccarthy MD - 12/28/2022 1:00 PM CDT [facility] Dr Mccarthy, Endocrinology Department [address] [facility] [place] [address] Appointment [phone] [facility]: Tuesday - Increase levothyroxine to 137 mcg/day. [...] ended: 1:16 Provider location: working from home/ [facility] Patient location: patients home. Mode of transmission: video/ DoxCrowdSlingity Verbal consent: obtained before starting visit. Pt [...] Was requested to see endocrinology by her MATERIALS AND PROCESSES MANAGER from [place]. Available records, labs and images from outside [...] mg/day which is prescribed by provider outside [facility] since 12/2021. Lost about 20 lbs on [...] or cold intolerance: sometimes cold History of [place] or Amiodarone use:No Head or neck surgery/radiation:No [...] SURGERY 2014 tonsils, adenoids, wisdom teeth ??? DIRECTOR OF TEACHING AND LEARNING SURGERY 2018 ovarian cyst removed ? ? [...] and appearance well-groomed LABS: TFTs: [facility] Latest Ref Rng & Units 12/23/2022 THYROID [...] Follow-up: 3 months. Rocio Mccarthy MD Endocrinology [facility] CC: Billie Guadarrama All questions were answered. The patient indicates understanding of the above issues and agrees with the plan set forth. documented in this encounter Nursing Notes * Kendra Baltazar - 12/28/2022 1:00 PM CDT Is the patient currently in the state of [place]? YES Visit mode:VIDEO If the visit is dropped, the patient can be reconnected by: VIDEO VISIT: Text to cell phone: [phone] Will anyone else be joining the visit? NO How would you like to obtain your AVS? MyChart Are changes needed to the allergy or medication list? NO Reason for visit: follow up documented in this encounter Plan of Treatment Upcoming Encounters Date Type Department Care Team (Late st Contact Info) Description 12/12/2023 9:00 AM PLATFORM MATERIAL HANDLING SUPERVISOR Office Visit [facility] Maternal Medicine [facility] [address] [place] [phone] Erica Tristan MD [address] [place], [place] [phone] 12/12/2023 9:30 AM PLATFORM MATERIAL HANDLING SUPERVISOR Appointment [facility] Maternal Medicine [facility] [address] [place] [phone] Derrick Valenzuela MD [address] [place], [place] [phone] 04/17/2024 9:00 AM CDT Virtual Visit [facility] [address] [place] [phone] Rocio Mccarthy MD [address] [place] [address] documented as of this encounter Results * (ABNORMAL) TSH (03/30/2023 3:56 PM CDT) TSH 0.06(L) 0.30 - 4.20 uIU/mL 03/30/2023 9:24 PM CDT [facility] Blood STRUCTURE OF LEFT UPPER LIMB / Unknown Venipuncture / Unknown 03/30/2023 3:56 PM CDT 03/30/2023 3:56 PM CDT Rocio Mccarthy MD LAB - BLOOD ORDER [facility] Core Lab [address] [facility], [address] [address], [facility] [phone] * T4 free (03/30/2023 3:56 PM CDT) Free T4 1.67 0.90 - 1.70 ng/dL 03/30/2023 9:24 PM CDT [facility] Blood STRUCTURE OF LEFT UPPER LIMB / Unknown Venipuncture / Unknown 03/30/2023 3:56 PM CDT 03/30/2023 3:56 PM CDT Rocio Mccarthy MD LAB - BLOOD ORDER [facility] Core Lab [address] 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
--- OUTSIDE RECORDS SUMMARY | 2023-11-24 07:33 | XMS_ITS | Encounter Summary ---
Author Name Unknown Organization [facility] Address [address] [place] [address]. [place] [address] Care Team Providers Care Director Market Intelligence Name Role Phone Tucker Michel MD Primary Care Provider [phone] Frw, None Primary Care Provider Unavailabl Billie Jensen Primary Care Provider Rocio Mccarthy MD Unavailable [phone] Anthony Shaffer MD Unavailable [phone] Rocio Mccarthy MD Unavailable [phone] Erica Tristan MD Unavailable [phone] Reason for Visit * Reason Comments Abstract Encounter Details Date Type Department Care Team (Late Contact Info) Description 05/22/2001 Abstract [facility] [place] Medical Records [place] [phone] Eap Consultant, Sonja Social History Tobacco Use Types Packs/Day Years Used Date Smoking Tobacco: Never Assessed Comments:NO 2ND HAND SMOKE A T HOME Alcohol Use Standard Drinks/Week Comments Not Asked 0 (1 standard drink = 0.6 oz pur e alcohol) Sex and Gender Information Value Date Recorded Sex Assigned at Female 10/05/2020 9:54 PM REVENUE AGENT Gender Identity Female 10/05/2020 9:54 PM REVENUE AGENT Sexual Orientation Straight 10/05/2020 9: 54 PM REVENUE AGENT documented as of this encounter Plan of Treatment Upcoming Encounters Date Type Department Care Team (Late Contact Info) Description 12/12/2023 9:00 AM REVENUE AGENT Office Visit [facility] Maternal Medicine [facility] [address] [place] [phone] Erica Tristan MD [address] [place] [address] 12/12/2023 9:30 AM REVENUE AGENT Appointment [facility] Maternal Medicine [facility] [address] [place] [phone] Derrick Valenzuela MD [address] [place] [address] 04/17/2024 9:00 AM CDT Virtual Visit [facility] [address] [place] [address] [place] [phone] Rocio Mccarthy MD [address] [place] [address] documented as of this encounter Visit Diagnoses Not on filedocumented in this encounter Care Teams Director Market Intelligence Relationship Specialty Start Date End Date Tucker Michel MD [facility] [address] [facility] [address] [place] [address] PCP - General 11/02/00 02/05/13 Frw, None PCP - General Family Practice 02/06/13 06/09/17 Billie Guadarrama PCP - General 12/17/19 Rocio Mccarthy MD [address] [place] [address] Assigned Endocrinology Provider 08/01/20 11/28/21 Anthony Shaffer MD [address] [place] [address] Assigned OBGYN Provider 05/10/21 Rocio Mccarthy MD [address] [place] [address] Assigned Endocrinology Provider 04/24/22 Erica Tristan MD [address] [place], [place] [address] Assigned OBGYN Provider 08/06/23 documented as of this encounter
--- OUTSIDE RECORDS SUMMARY | 2023-11-24 07:33 | XMS_ITS | Encounter Summary ---
Author Name Unknown Organization [facility] Address [address] [place] [address]. [place] [address] Care Team Providers Care Opto Mechanical Technician Name Role Phone Selinsusan Billie Primary Care Provider [phone] Anthony Shaffer MD Unavailable [phone] Rocio Mccarthy MD Unavailable [phone] Erica Tristan MD Unavailable [phone] Encounter Details Date Type Department Care Team (Late st Contact Info) Description 01/06/2022 MyC Medical Advice [address] [place] [phone] Jina Harrell V, RN Social History [...] Sex Assigned at Female 10/05/2020 9:54 PM PMO PROJECT MANAGER Gender Identity Female 10/05/2020 9:54 PM PMO PROJECT MANAGER Sexual Orientation Straight 10/05/2020 9: 54 PM PMO PROJECT MANAGER COVID-19 Exposure Response Date Recorded In the last month, have you been in contact with someone who was confirmed or suspected to have Coronavirus / COVID-19? No / Unsure 01/05/2022 1:29 PM CDT documented as of this encounter Plan of Treatment Upcoming Encounters Date Type Department Care Team (Late st Contact Info) Description 12/12/2023 9:00 AM PMO PROJECT MANAGER Office Visit [facility] [address] [place] [phone] Erica Tristan MD [address] [address] 12/12/2023 9:30 AM PMO PROJECT MANAGER Appointment [place] [facility] [address] [facility] [address] [place] [phone] Derrick Valenzuela MD [address] [address] 04/17/2024 9:00 AM CDT Virtual Visit [place] [address] [place] [phone] Rocio Mccarthy MD [address] [place], [place] [address] documented as of this encounter Visit Diagnoses Not on filedocumented in this encounter Care Teams Opto Mechanical Technician Relationship Specialty Start Date End Date Billie Guadarrama PCP - General 12/17/19 Anthony Shaffer MD [phone] Assigned OBGYN Provider 05/10/21 Rocio Mccarthy MD [address] [place] [address] Assigned Endocrinology Provider 04/24/22 Erica Tristan MD [address] [facility] 400 [id number] Assigned OBGYN Provider 08/06/23 documented as of this encounter
--- OUTSIDE RECORDS SUMMARY | 2023-11-24 07:33 | XMS_ITS | Encounter Summary ---
Author Name Unknown Organization [facility] Address [address] [place] [address]. [place] [address] Care Team Providers Care Hospitalist Name Role Phone Selinsusan Billie Primary Care Provider [phone] Rocio Mccarthy MD Unavailable [phone] Encounter Details Date Type Department Care Team [...] Sex Assigned at Female 10/05/2020 9:54 PM PRINTED CIRCUIT BOARD DRAFTER Gender Identity Female 10/05/2020 9:54 PM PRINTED CIRCUIT BOARD DRAFTER Sexual Orientation Straight 10/05/2020 9: 54 PM PRINTED CIRCUIT BOARD DRAFTER COVID-19 Exposure Response Date Recorded In the last 10 days, have yo u been in contact with someone who was confirmed or suspected to have Coronavirus/COVID-19? No / Unsure 12/23/2022 3:27 PM CDT documented as of this encounter Plan of Treatment Upcoming Encounters Date Type Department Care Team ( st Contact Info) Description 12/12/2023 9:00 AM PRINTED CIRCUIT BOARD DRAFTER Office Visit [facility] Maternal Medicine [facility] [address] [place] [phone] Erica Tristan MD [address] [place] [address] 12/12/2023 9:30 AM PRINTED CIRCUIT BOARD DRAFTER [facility]ointment [facility] Medicine [facility] [address] [place] [phone] Derrick Valenzuela MD [address] [place], [place] [phone] 04/17/2024 9:00 AM CDT Virtual Visit [facility] [address] [place] [phone] Rocio Mccarthy MD [address] [place] [address] documented as of this encounter Visit Diagnoses Not on filedocumented in this encounter Care Teams Hospitalist Relationship Specialty Start Date End Date Chiara Billie PCP - General 12/17/19 Rocio Mccarthy MD [address] [place] [address] Assigned Endocrinology Provider 04/24/22 documented as of this encounter
--- OUTSIDE RECORDS SUMMARY | 2023-11-24 07:33 | XMS_ITS | Encounter Summary ---
Author Name Unknown Organization [facility] Address [address] [place] [address]. [place] [address] Care Team Providers Care Labor Commissioner Name Role Phone Billie Guadarrama Primary Care Provider Rocio Mccarthy MD Unavailable [phone] Anthony Shaffer MD Unavailable Rocio Mccarthy MD Unavailable [phone] Erica Tristan MD Unavailable [phone] Reason for Visit * Reason Onset Date Comments MyChart Communication 06/12/2020 Encounter Details Date Type Department Care Team (Latest Contact Info) Description 06/12/2020 MyC Medical Advice [facility] [address] [place] [address] Rocio Mccarthy MD [address] [place] [address] MyChart Communication Social History Tobacco [...] Sex Assigned at Female 10/05/2020 9:54 PM TITLE I MATH TUTOR Gender Identity Female 10/05/2020 9:54 PM TITLE I MATH TUTOR Sexual Orientation Straight 10/05/2020 9: 54 PM TITLE I MATH TUTOR COVID-19 Exposure Response Date Recorded In the last month, have you been in contact with someone who was confirmed or suspected to have Coronavirus / COVID-19? No / Unsure 05/29/2020 2:44 PM CDT documented as of this encounter Miscellaneous Notes * Telephone Encounter - Angelic Cavazos RN - 06/12/2020 9:07 AM CDT Please see Application Experts message and advise. Thank you. documented in this encounter Plan of Treatment Upcoming Encounters Date Type Department Care Team (Late st Contact Info) Description 12/12/2023 9:00 AM TITLE I MATH TUTOR Office Visit [facility] Maternal Medicine [facility] [address] [place] [address] Erica Tristan MD [address] [place], [place] [phone] 12/12/2023 9:30 AM TITLE I MATH TUTOR Appointment [facility] Maternal Medicine [facility] [address] [place] [phone] Derrick Valenzuela MD [address] [place], [place] [address] 04/17/2024 9:00 AM CDT Virtual Visit [facility] [address] [place] [phone] Rocio Mccarthy MD [address] [place], [place] [address] documented as of this encounter Visit Diagnoses Not on filedocumented in this encounter Care Teams Labor Commissioner Relationship Specialty Start Date End Date Billie Guadarrama PCP - General 12/17/19 Rocio Mccarthy MD [address] [place] [address] Assigned Endocrinology Provider 08/01/20 11/28/21 Anthony Shaffer MD [address] [place], [place] [phone] Assigned OBGYN Provider 05/10/21 Rocio Mccarthy MD [address] [place], [place] [address] Assigned Endocrinology Provider 04/24/22 Erica Tristan MD [address] [place] [address] Assigned OBGYN Provider 08/06/23 documented as of this encounter
--- OUTSIDE RECORDS SUMMARY | 2023-11-24 07:33 | XMS_ITS | Encounter Summary ---
Author Name Unknown Organization [facility] Address [address] [place] [address]. 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 Please call endocrinology clinic ) if questions. Rocio Mccarthy MD Endocrinology [facility] April 02, 2023 documented in this encounter Plan of Treatment Upcoming Encounters Date Type Department Care Team (Late st Contact Info) Description 12/12/2023 9:00 AM CAREERS ADVISER Office Visit [facility] Maternal Medicine [facility] [address] [facility] [address] [place] [phone] Erica Tristan MD [address] [place], [place] [phone] 12/12/2023 9:30 AM CAREERS ADVISER Appointment [facility] Maternal Medicine [facility] [address] [facility] [address] [place] [phone] Derrick Valenzuela MD [address] [place], [place] [address] 04/17/2024 9:00 AM CDT Virtual Visit [facility] [address] [place] [address] [place] [phone] Rocio Mccarthy MD [address] [place] [address] documented as of this encounter Procedures Procedure [...] LAB - BLOOD ORDER [facility] Core Lab [address] [facility], [address] [address], [facility] [phone] * T4 free (03/30/2023 3:56 PM CDT) Free T4 1.67 0.90 - 1.70 ng/dL 03/30/2023 9:24 PM CDT [facility] Blood STRUCTURE OF LEFT UPPER LIMB / Unknown Venipuncture / Unknown 03/30/2023 3:56 PM CDT 03/30/2023 3:56 PM CDT Rocio Mccarthy MD LAB - BLOOD ORDER [facility] Core Lab [address] [facility], [address] [address], [facility] [phone] documented in this encounter Visit Diagnoses Diagnosis 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
--- OUTSIDE RECORDS SUMMARY | 2023-11-24 07:33 | XMS_ITS | Encounter Summary ---
Author Name Unknown Organization [facility] Address [address] [place] [address]. [place] [address] Care Team Providers Care Geophysical Laboratory Supervisor Name Role Phone Selinsusan Billie Primary Care Provider [phone] Rocio Mccarthy MD Unavailable [phone] Encounter Details Date Type Department Care Team [...] Sex Assigned at Female 10/05/2020 9:54 PM GROUND CREWMAN MISSION SUPPORT Gender Identity Female 10/05/2020 9:54 PM GROUND CREWMAN MISSION SUPPORT Sexual Orientation Straight 10/05/2020 9: 54 PM GROUND CREWMAN MISSION SUPPORT COVID-19 Exposure Response Date Recorded In the last 10 days, have yo u been in contact with someone who was confirmed or suspected to have Coronavirus/COVID-19? No / Unsure 12/21/2022 9:54 AM CDT documented as of this encounter Plan of Treatment Upcoming Encounters Date Type Department Care Team ( st Contact Info) Description 12/12/2023 9:00 AM GROUND CREWMAN MISSION SUPPORT Office Visit [facility] Maternal Medicine [facility] [address] [place] [phone] Erica Tristan MD [address] [place] [address] 12/12/2023 9:30 AM GROUND CREWMAN MISSION SUPPORT Appointment [facility] Medicine [facility] [address] [place] [phone] Derrick Valenzuela MD [address] [place], [place] [phone] 04/17/2024 9:00 AM CDT Virtual Visit [facility] [address] [place] [place] [phone] Rocio Mccarthy MD [address] [place] [address] documented as of this encounter Visit Diagnoses Not on filedocumented in this encounter Care Teams Geophysical Laboratory Supervisor Relationship Specialty Start Date End Date Chiara Billie PCP - General 12/17/19 Rocio Mccarthy MD [address] [place] [address] Assigned Endocrinology Provider 04/24/22 documented as of this encounter
--- OUTSIDE RECORDS SUMMARY | 2023-11-24 07:33 | XMS_ITS | Encounter Summary ---
Author Name Unknown Organization [facility] Address [address] [place] [address]. [place] [address] Care Team Providers Care Brokerage Office Manager Name Role Phone Billie Guadarrama Primary Care Provider [phone] Rocio Mccarthy MD Unavailable [phone] Anthony Shaffer MD Unavailable [phone] Rocio Mccarthy MD Unavailable [phone] Erica Tristan MD Unavailable [phone] Encounter Details Date Type Department Care Team (Late st Contact Info) Description 08/01/2020 MyC Medical Advice [facility] [address] [place] [address] Rocio Mccarthy MD [address] [place] [address] Social History Tobacco Use Types [...] Assigned at Female 10/05/2020 9:54 PM MEDICAL COLLECTIONS Gender Identity Female 10/05/2020 9:54 PM MEDICAL COLLECTIONS Sexual Orientation Straight 10/05/2020 9: 54 PM MEDICAL COLLECTIONS documented as of this encounter Miscellaneous Notes * Telephone Encounter - Angelic Cavazos RN - 08/01/2020 1:21 PM CDT Please see MyChart message, does patient need to see derm? Please advise, Thank you. documented in this encounter Plan of Treatment Upcoming Encounters Date Type Department Care Team (Late st Contact Info) Description 12/12/2023 9:00 AM MEDICAL COLLECTIONS Office Visit [facility] [address] [place] [phone] Erica Tristan MD [address] [place], [place] [address] 12/12/2023 9:30 AM MEDICAL COLLECTIONS Appointment [facility] [address] [place] [phone] Derrick Valenzuela MD [address] [place], [place] [address] 04/17/2024 9:00 AM CDT Virtual Visit [facility] [address] [place] [phone] Rocio Mccarthy MD [address] [place], [place] [id number] documented as of this encounter Visit Diagnoses Not on filedocumented in this encounter Care Teams Brokerage Office Manager Relationship Specialty Start Date End Date Billie Guadarrama PCP - General 12/17/19 Rocio Mccarthy MD [address] [place] [address] Assigned Endocrinology Provider 08/01/20 11/28/21 Anthony Shaffer MD [address] [place], [place] [address] Assigned OBGYN Provider 05/10/21 Rocio Mccarthy MD [address] [place] [address] Assigned Endocrinology Provider 04/24/22 Erica Tristan MD [address] [place], [place] [address] Assigned OBGYN Provider 08/06/23 documented as of this encounter
== END 2023-11-24 07:27 | disposition home or self-care (01) ==
LOC: US 07:26
PROVIDERS: PCP Family Medicine; Visit Provider Obstetrics & Gynecology
DX: O36.5990 Maternal care for other known or suspected poor fetal growth, unspecified trimester, not applicable or unspecified (principal)
CPT/HCPCS: 76816; 76820

== ENCOUNTER 2023-12-02 07:03 | Outpatient (CLI) | payer MEDICAID, SELFPAY ==
--- NOTE | 2023-12-02 07:15 | US_ITS ---
Patient: TAYLOR RAHMAN Facility:?[facility] Patient ID:?[id number] Site Patient ID:?[id number]. Site :?1997 Study:?US-OB Pelvis -12/02/2023 7:24:55 AM Ordering Physician:?KRISTEL RODARTE Final Report: INDICATION: IUGR, ASH & UA DOPPLER COMPARISON: 11/24/2023 TECHNIQUE: Real time san scale imaging of the fetus was performed as well as color Doppler and spectral Doppler analysis of the umbilical artery. FINDINGS: Sonographic imaging demonstrates a single living intrauterine gestation. Fetus demonstrates a regular cardiac rate of 130 beats per minute. Fetus has a vertex position. The placenta lies posteriorly. Amniotic fluid volume appears normal and there is a single deepest vertical pocket: 6.2 cm. There is adequate diastolic blood flow within the umbilical artery. The S/D ratio measures 2.3. IMPRESSION: Normal amniotic fluid and SD ratio. Dictated by Rashad Yin MD @ 12/02/2023 10:51:42 AM Signed by:?Rashad Yin MD @12/02/2023 10:51:42 AM (Electronic Signature)
== END 2023-12-02 07:04 | disposition home or self-care (01) ==
LOC: US 07:03
PROVIDERS: PCP Family Medicine; Visit Provider Obstetrics & Gynecology
DX: O36.5990 Maternal care for other known or suspected poor fetal growth, unspecified trimester, not applicable or unspecified (principal)
CPT/HCPCS: 76816; 76820; 87081; 87653

== ENCOUNTER 2023-12-04 16:33 | Outpatient (CLI) | payer MEDICAID, SELFPAY ==
[2023-12-04 17:03] VITALS: BP 127/79; PULSE 88; RESP 18; TEMP 36.7
[2023-12-04 17:21] LABS: Appearance Urine Clear (Clear); Bilirubin Urine Negative (Negative); Blood Urine 3+ (Negative); Color Urine Yellow (Yellow); Glucose Urine Negative (Negative); Ketones Urine Negative (Negative); Leukocyte Esterase Urine 1+ (Negative); Nitrite Urine Negative (Negative); Protein Urine Negative (Negative); Urobilinogen Urine 0.2 (0.2-1.0)
[2023-12-04 17:36] LABS: Bacteria Urine Moderate; Squamous Epithelial Cell Urine Few (None-Few); WBC Urine 25-50 (0-5)
--- NOTE | 2023-12-04 19:18 | P.OBHP_ITS ---
OB - H&P: HPI Labor/Induction History of Present Illness Time Seen by Provider: 19:18 Date Seen: 12/04/23 Chief Complaint: contractions Chief complaint: OB Narrative: The patient is a 28 year old 2 para 1 at 36 weeks gestation by first trimester US, who presents with regular/painful uterine contractions. course is complicated by history of labor (ultimately with term delivery at 37 weeks), threatened labor in this (s/p hospitalization at 30 weeks), growth restriction, hypothyroidism, depression and anxiety. Patient notes onset of abdominal pain and vaginal pressure intermittently over the last 24 hours. This has progressively worsened through the day, now occurring every several minutes rated as 5/10 in severity. Patient notes this pain is more severe than she ever experienced with her previous unmedicated delivery. In addition, she feels pelvic pressure intermittently (greatest with ambulation) where she has an urge to push. Denies vaginal bleeding or leaking of fluid. Endorses active movement. At her visit on 12/02/2023, she was noted to be 4/90/0 station but had could be balloted out of the pelvis by Dr. De Leon. Initial exam by L&D RN notable for very posterior cervix, 5/40/-4 with difficulty appreciating the presenting part. Specific Issues/Plans 1. Unplanned , condoms. They are excited. New partner this 2. History of gestational diabetes, treated with metformin Hemoglobin A1c: 5.4% Early 1 hour GTT at 16-20 weeks: 98 1 hr GTT 28 weeks: 139 4. History of contractions and dilation starting at 32 weeks. Treated with nifedipine. Term delivery, SROM at 37+1 [facility] referral placed: reportedly showing shortened cervix at 2.1 cm. US 07/26/2023: Cervix at 21 mm without funnel. Vaginal progesterone started. To continue through 36 weeks. Assess cervix every week up to 24 weeks: 2.0 cm at last check on 09/06 Cardiac anatomy not visualized. Hypoplastic nasal bone. No other markers of aneuploidy seen. In the setting of low risk cell free DNA this is of little clinical importance and likely normal variant Repeat US with [facility] 08/01/23: Cervical length 26.1 mm, otherwise normal. Vaginal progesterone 200 mg QHS prescribed by [facility] 5. History of Duane's thyroiditis. Currently on levothyroxine 125 mcg. TSH at new OB: 3.48. Increase levothyroxine to 150 mcg, then to 175 mcg. TSH 06/09 8.73H, Free T4 0.92 NL She states she had her TSH levels checked at her furnace repairer on 06/07 the level was 4.38. The furnace repairer told her to stay on the current dose and follow up with them on 06/21 and recheck labs at that time Endocrinology is managing: Dr. Mccarthy, [place], TSH 2nd trimester (08/23/23): TSH 2.58, T3 2.7, free T4 1.16. TSH 3rd trimester: (10/11/23): TSH 4.51, free T4 1.05. Levothyroxine increased to 200 mcg daily. TSH 11/18/23: 2.510. Repeat , planned by endocrinology. 6. Obesity, BMI 34.5 7. Depression and anxiety, PTSD. PHQ 15, ZAINAB 14 at [facility] . No current medications. Has tried multiple medications in the past She does have a therapist 06/09/: Has started therapy and wants to do therapy before medication options, some improvement 97: PHQ 9: 11, ZAINAB 7: 8. Therapy every other week and she feels like she is doing well, declines medication 08/01: PHQ 9 = 9, ZAINAB 7 = 8. 8. Planning tubal ligation. Federal tubal papers signed 10/05/[address] Edge 9. Varicella non-immune 10. Persistent intertrigal candidiasis of groin. No response to Nystatin Trial of clotrimazole started 10/05, with zinc oxide prn as skin protectant Symptoms well-managed. 11. Platelets 132 at 28 weeks. Repeat CBC at 34 weeks: Platelets 150. 12. cervical dilation: 3 cm, 70% and ballottable at 30 weeks. Received betamethasone and transferred to [facility] on 10/19/23. 13. IUGR noted from inpatient US at [facility] 10/19/23: EFW 4%. Biometric measurements are not included in report. Mild polyhydramnios with MVP 8 cm, ASH 24.5 cm. * Referred back to [facility]. Level 2 US 10/28/23: cephalic, posterior placenta, MVP normal at 7.7 cm, EFW 8%, AC 6%, HC <1% but not consistent with microcephaly as only 2 standard deviations below the mean. Normal UA dopplers. Bilateral mild ventriculomegaly: left 10.2 mm, right 10.9 mm. [id number] normal 06/09/23, consistent with female. * MRI reportedly showing: Mild lateral ventricular dilation measuring 11 mm on the right and 12 mm on the left. No structural brain abnormalities identified. This has a very good prognosis related to neurodevelopmental outcomes. 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 No corresponding phenotype has been described. This would increase the risk of autosomal recessive conditions related to gen es on chromosome 1. She was offered a custom panel of testing, but declined. * CMV and toxoplasmosis were negative. * BPP on 10/24/24: 8/, MVP 5 cm, normal UA doppler * MRI until 11/11. CMV and toxoplasmosis are still pending * 11/04 NST and limited US with MFM: NST reactive,amniotic fluid normal, normal UA Doppler * 11/18 Growth US and NST with MFM: EFW 2036 g = 9%, AC 8%, normal fluid and dopplers. * Weekly BPP with dopplers until delivery * Growth US Q 3 weeks. * Provided continued reassuring testing and EFW between 3 and 10%, plan for induction of labor 38 0/7 - 39 0/7 weeks. Peds recommended at delivery. Flu shot: 07/07/23 Covid: RSV: 11/03/23 TDAP: received Meds Home Medications and Allergies Home Medications Medication Instructions Recorded Confirmed Type docosahexaenoic acid 200 mg 200 mg PO DAILY 06/09/23 12/04/23 History capsule ( DHA) levothyroxine 200 mcg tablet 200 mcg PO DAILY 10/19/23 12/04/23 History Allergies Allergy/AdvReac Type Severity Reaction Status Date / Time drospirenone Allergy Mild Rash Verified 12/02/23 07:55 oxycodone Allergy Mild Rash Verified 12/02/23 07:55 OB - H&P: Exam Physical Exam: Vital signs: Temp Pulse Resp BP 98.1 F 88 18 127/79 12/04/23 17:03 12/04/23 17:03 12/04/23 17:03 12/04/23 17:03 Narrative: Physical exam: General: No acute distress Psych: Alert and oriented x3, full affect Abdomen: Gravid. Otherwise soft and nontender. S growth ultrasound on 11/18 at [facility] showed EFW of 2036 g, 9th percentile. heart rate: Reactive NST. Baseline of 150 beats per minute, moderate variability, accelerations present, decelerations absent. Cervix: 5/80/-3 [place]: Regular contractions every 2-3 minutes, palpate soft by bedside RN Presentation: Cephalic by digital exam and ultrasound Repeat exam after 4 hours - 5/80/-2 with head well applied to the cervix OB - Results Labs Labs: Urine 12/04/23 Range/Units 17:10 Urine Color Yellow (Yellow) Urine Appearance Clear (Clear) Urine pH 7.0 (5.0-8.5) Ur Specific [place] 1.020 (1.000-1.030) Urine Protein Negative (Negative) Urine Glucose (UA) Negative (Negative) OB - Problem Based A/P Additional Plan (1) affected by growth restriction: Status: Acute (2) labor in third trimester: Status: Acute (3) Short cervix affecting : Status: Acute (4) Obesity (BMI 30.0-34.9): Status: Acute (5) History of Duane thyroiditis: Status: Acute (6) PTSD (post-traumatic stress disorder): Status: Chronic (7) Depression: Status: Chronic Plan Ms. Garcia is a 28yo at 36w5d GA seen for contractions. course is complicated by history of labor (ultimately with term delivery at 37 weeks), threatened labor in this (s/p hospitalization at 30 weeks), growth restriction, hypothyroidism, depression and anxiety. She is status post betamethasone course at 30 weeks for threatened . She presents with regular/painful contractions that are worse than what she experienced with her prior unmedicated delivery. She is experiencing intermittent pressure with an urge to push, greatest with ambulation. No vaginal bleeding or leaking of fluids. Endorses active movement. Patient has been monitored for several hours, during which there was inconsistency between my and RN exam. That said, across 4 hours her cervix did remain 4 and 80% effaced by my own exam. That said, the vertex feels better applied to the cervix and is a lower station. She has a bulging bag of water. She continues to have regular uterine contractions every 2-3 minutes, rated as 5/10 in severity. heart rate tracing has remained category 1 throughout monitoring. We discussed that fortunately her cervix has not demonstrated change across her period of monitoring. That said, I do suspect that she is in latent labor and with her advanced cervical dilation I do feel delivery could proceed quickly particularly in the setting of rupture of membranes. Given prematurity and growth restriction, we discussed a period of prolonged observation with repeat cervical exam in the morning. Patient lives 20 minutes from the hospital, for we mutually agree conservative approach is borja. I explained that we would not augment her labor at this time, given prematurity where delivery would be medically indicated at 38 weeks for uncomplicated growth restriction. Patient expressed understanding and is agreeable to plan. - Admit for extended observation - Blood type B positive - GBS negative - Anticipate dismissal to home tomorrow morning if she fails to make cervical change. Discussed very low threshold to return to care with any worsening pain/contractions, vaginal bleeding or leaking of fluids.
[2023-12-04 23:51] VITALS: BP 122/62; PULSE 78; TEMP 36.8
[2023-12-05 04:46] VITALS: BP 113/60; PULSE 73; TEMP 36.6
--- NOTE | 2023-12-05 08:51 | PM.OBLDTN ---
OB - Triage/Final Diagnosis Visit Information Time Seen by Provider: 08:51 Date Seen: 12/05/23 Narrative: The patient is a 28 year old 2 para 1001 at 36.6 weeks, who presents with contractions. course is complicated by history of labor (ultimately with term delivery at 37 weeks), threatened labor in this (s/p hospitalization at 30 weeks), growth restriction, hypothyroidism, depression and anxiety. She is status post betamethasone course at 30 weeks for threatened . BMZ series completed earlier on in her course. She came in overnight for regular contractions - q2-3 minutes. Had remained unchanged on 3 exams overnight. This morning, her contractions has spaced out to Q10-15 minutes. They are no longer are palpable to patient. She has no increased pelvic pressure. SVE by myself this AM: 4-4.5/80/-4 ballotable. Mid position and moderately soft. Membrane intact. This is similar with Dr. De Leon exam on 12/02/23. We discussed that while she has advanced cervical dilation, she doesn't appear to be in labor. We also have no reason to augment her. Given her growth restriction, she is getting weekly BPP and doppler. Her next appointment is on 12/09/23. Discussed with her that, it is possible she might be at this cervical dilation for a long time before going into labor. She would like to go home if she is not in labor. She does live 20 minutes away from the hospital and we discussed strong return precautions. She does not work currently and would be able to readily present to L&D should anything change in her clinical picture. Plan for now is medically indicated delivery at 38 weeks for uncomplicated growth restriction. She verbalized understanding and agrees with the plan. She is stable and appropriate for discharge with strong return precautions. Wellbeing NST this AM: Baseline of 130s beats per minute, moderate variability, multiple qualifying accelerations, no decelerations. Reactive and reassuring. [place]: Irregular contractions Q 10-15 minutes, nonpalpable to patient currently. Evaluation Laboratory results: Laboratory Tests 12/04/23 Range/Units 17:10 Urine Color Yellow (Yellow) Urine Appearance Clear (Clear) Urine pH 7.0 (5.0-8.5) Ur Specific [place] 1.020 (1.000-1.030) Urine Protein Negative (Negative) Urine Glucose (UA) Negative (Negative) Urine Ketones Negative (Negative) Urine Blood 3+ A (Negative) Urine Nitrite Negative (Negative) Urine Bilirubin Negative (Negative) Urine Urobilinogen 0.2 (0.2-1.0) Ur Leukocyte Esterase 1+ A (Negative) Urine RBC 10-25 A (0-2) Urine WBC 25-50 A (0-5) Ur Squamous Epith Cells Few (None-Few) Urine Bacteria Moderate A (None) Vital signs: Vital Signs - 24 hr 12/04/23 17:03 12/04/23 23:51 12/04/23 23:51 Temperature 98.1 F 98.3 F Pulse Rate 88 78 Respiratory Rate 18 Blood Pressure 127/79 122/62 12/05/23 04:46 12/05/23 04:46 Temperature 97.9 F Pulse Rate 73 Respiratory Rate Blood Pressure 113/60 Final Diagnosis (1) affected by growth restriction: Status: Acute (2) labor in third trimester: Status: Acute (3) Short cervix affecting : Status: Acute (4) Obesity (BMI 30.0-34.9): Status: Acute (5) History of Duane thyroiditis: Status: Acute (6) PTSD (post-traumatic stress disorder): Status: Chronic (7) Depression: Status: Chronic
--- NOTE | 2023-12-15 09:47 | PC.OBNST ---
NST Note NST Note Start: 12/04/23 16:47 Freq: ONCE Status: Discharge Protocol: Document 12/05/23 08:45 JUJU (Rec: 12/15/23 09:47 JUJU [id number]) NST Note 2 Para (# of births) 1 EDC 12/27/23 Gestational Age In Weeks & Days 38 Weeks & 2 Days Patient Presented with Complaint(s) of Contractions/cramping Reactive Yes Appropriate for Gestational Age Yes RN Vik Patterson RN Date 12/05/23 Reactive Yes Appropriate for Gestational Age Yes LADONNA Charles RN Date 12/05/23 OB NST charge Yes Complete NST Note via Write Note Yes The provider's electronic signature indicates the NST is reactive/appropriate for gestational age. *Note to provider: If an addendum is required, open the patient's chart and click on the note under the Nurse/Allied Health tab.
== END 2023-12-05 08:49 | disposition home or self-care (01) ==
LOC: OB OUT 16:38 → OB 16:39
PROVIDERS: PCP Family Medicine; Visit Provider Obstetrics & Gynecology
DX: O60.03 Preterm labor without delivery, third trimester (principal); Z3A.36 36 weeks gestation of pregnancy
CPT/HCPCS: 59025; 81001; 81003; 87086; G0463

== ENCOUNTER 2023-12-09 09:06 | Outpatient (CLI) | payer MEDICAID, SELFPAY ==
--- NOTE | 2023-12-09 09:15 | US_ITS ---
Patient: TAYLOR RAHMAN Facility:?[facility] Patient ID:?[id number] Site Patient ID:?[id number]. Site :?1997 Study:?US-OB Pelvis -12/09/2023 9:41:13 AM Ordering Physician:?KRISTEL RODARTE Final Report: INDICATION: IUGR, WEEKLY ASH AND DOPPLER CHECK COMPARISON: 12.02.23 TECHNIQUE: Real time san scale imaging of the fetus was performed as well as color Doppler and spectral Doppler analysis of the umbilical artery. Without non-stress testing. FINDINGS: Sonographic imaging demonstrates a single living intrauterine gestation. Fetus demonstrates a regular cardiac rate of 161 beats per minute. Fetus has a vertex position. The umbilical artery demonstrates adequate diastolic blood flow. The S/D ratio measures 2.0. The amniotic fluid volume appears normal and there is a single deepest pocket measurement of 5.1 cm. The fetus was active and demonstrated normal breathing movements. There was normal flexion and extension of the trunk and extremities. IMPRESSION: Normal biophysical profile score of 8 out of 8. Normal UA Doppler. Dictated by Rashad Yin MD @ 12/09/2023 11:03:14 AM Signed by:?Rashad Yin MD @12/09/2023 11:03:14 AM (Electronic Signature)
== END 2023-12-09 09:07 | disposition home or self-care (01) ==
PROVIDERS: PCP Family Medicine; Visit Provider Obstetrics & Gynecology
DX: O36.5990 Maternal care for other known or suspected poor fetal growth, unspecified trimester, not applicable or unspecified (principal)
CPT/HCPCS: 76816; 76820

== ENCOUNTER 2023-12-11 09:30 | Inpatient (IN) | payer MEDICAID, SELFPAY ==
[2023-12-11] VITALS (124 sets, daily range): BP systolic 72–139; BP diastolic 35–76; PULSE 43–107; RESP 16–18; TEMP 36.4–37.2; O2SAT 91–100; BMI 44.4
[2023-12-11 09:08] LABS: Amnisure Rom* POSITIVE
[2023-12-11 10:00] LABS: Basophils Absolute Auto 0.01 K/uL (0.00-0.30); Basophils Percent Auto 0.1 % (0.0-3.0); Eosinophils Absolute Auto 0.05 K/uL (0.00-0.50); Eosinophils Percent Auto 0.5 % (0.0-7.0); Hematocrit 35.6 % (33.0-51.0); Hemoglobin* 11.9 gm/dL (12.0-16.0); Immature Granulocytes Abs Auto 0.09 K/uL (0.00-0.30); Lymphocytes Percent Auto 17.7 % (20-44); Mean Corpuscular HGB Conc 33 gm/dL (32-36); Mean Corpuscular Hemoglobin 28 pg (26-34); Mean Corpuscular Volume 82 fL (80-100); Monocytes Percent Auto 3.8 % (0.0-11.0); Neutrophils Percent Auto 76.9 % (42.0-72.0); Platelet Count* 128 K/uL (140-440); RDW Coefficient of Variation % 13.8 % (11.5-15.5); Red Blood Count 4.33 m/uL (4.00-5.20)
[2023-12-11] MEDS: LACTATED RINGERS 1000 ML 1,000 ML 999 ML IV ×2 (11:04→12:01)
[2023-12-11 11:13] LABS: Slide Review Reflex No
[2023-12-11] MEDS: PHENYLEPHRINE 100 MCG/ML SYRINGE IVP ×8 (11:27→14:59)
[2023-12-11] MEDS: ROPIVACAINE 0.2 % PF 10 ML INJ 20 MG EPIDURAL (11:31)
[2023-12-11] MEDS: ROPIVACAINE 0.2% 100 ml 100 ML 12 MG EPIDURAL (11:32)
[2023-12-11] MEDS: LIDOCAINE 2% (PF) 5 ML VIAL EPIDURAL (11:32)
--- NOTE | 2023-12-11 11:33 | P.LDBA_ITS ---
Subjective History of Present Illness Narrative: Patient is being admitted to Labor and Delivery for onset of labor following spontaneous rupture of membranes. She is a 28 year old at 37 5/7 weeks gestation. Her full history and physical was dictated by Dr. [place] on 12/09/23. Please see this for details. She experienced small gushes of clear fluid from the vagina since about 0800 this morning. Contractions began afterwards and are increasing in intensity. Just requested and received epidural. Specific Issues/Plans H&P by [place] on 12/08 - NEEDS HEART/LUNG on follow up or admission to center 1. Unplanned , condoms. They are excited. New partner this 2. History of gestational diabetes, treated with metformin Hemoglobin A1c: 5.4% Early 1 hour GTT at 16-20 weeks: 98 1 hr GTT 28 weeks: 139 4. History of contractions and dilation starting at 32 weeks. Treated with nifedipine. Term delivery, SROM at 37+1 [facility] referral placed: reportedly showing shortened cervix at 2.1 cm. US 07/26/2023: Cervix at 21 mm without funnel. Vaginal progesterone started. To continue through 36 weeks. Assess cervix every week up to 24 weeks: 2.0 cm at last check on 09/06 Cardiac anatomy not visualized. Hypoplastic nasal bone. No other markers of aneuploidy seen. In the setting of low risk cell free DNA this is of little clinical importance and likely normal variant Repeat US with [facility] 08/01/23: Cervical length 26.1 mm, otherwise normal. Vaginal progesterone 200 mg QHS prescribed by [facility] 5. History of Duane's thyroiditis. Currently on levothyroxine 125 mcg. TSH at new OB: 3.48. Increase levothyroxine to 150 mcg, then to 175 mcg. TSH 06/09 8.73H, Free T4 0.92 NL She states she had her TSH levels checked at her complex director on 06/07 the level was 4.38. The complex director told her to stay on the current dose and follow up with them on 06/21 and recheck labs at that time Endocrinology is managing: Dr. Mccarthy [place], TSH 2nd trimester (08/23/23): TSH 2.58, T3 2.7, free T4 1.16. TSH 3rd trimester: (10/11/23): TSH 4.51, free T4 1.05. Levothyroxine increased to 200 mcg daily. TSH 11/18/23: 2.510. Repeat , planned by endocrinology. 6. Obesity, BMI 34.5 7. Depression and anxiety, PTSD. PHQ 15, ZAINAB 14 at [facility] . No current medications. Has tried multiple medications in the past She does have a therapist : Has started therapy and wants to do therapy before medication options, some improvement 97: PHQ 9: 11, ZAINAB 7: 8. Therapy every other week and she feels like she is doing well, declines medication 08/01: PHQ 9 = 9, ZAINAB 7 = 8. 8. Planning tubal ligation. Federal tubal papers signed 10/05/[address] Edge 9. Varicella non-immune 10. Persistent intertrigal candidiasis of groin. No response to Nystatin Trial of clotrimazole started 10/05, with zinc oxide prn as skin protectant Symptoms well-managed. 11. Platelets 132 at 28 weeks. Repeat CBC at 34 weeks: Platelets 150. 12. cervical dilation: 3 cm, 70% and ballottable at 30 weeks. Received betamethasone and transferred to [facility] on 10/19/23. 13. IUGR noted from inpatient US at [facility] 10/19/23: EFW 4%. Biometric measurements are not included in report. Mild polyhydramnios with MVP 8 cm, ASH 24.5 cm. * Referred back to [facility]. Level 2 US 10/28/23: cephalic, posterior placenta, MVP normal at 7.7 cm, EFW 8%, AC 6%, HC <1% but not consistent with microcephaly as only 2 standard deviations below the mean. Normal UA dopplers. Bilateral mild ventriculomegaly: left 10.2 mm, right 10.9 mm. [id number] normal 06/09/23, consistent with female. * MRI reportedly showing: Mild lateral ventricular dilation measuring 11 mm on the right and 12 mm on the left. No structural brain abnormalities identified. This has a very good prognosis related to neurodevelopmental outcomes. 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 No corresponding phenotype has been described. This would increase the risk of autosomal recessive conditions related to genes on chromosome 1. She was offered a custom panel of testing, but declined. * CMV and toxoplasmosis were negative. * BPP on 10/24/24: 8/8, MVP 5 cm, normal UA doppler * MRI until 11/11. CMV and toxoplasmosis are still pending * 11/04 NST and limited US with MFM: NST reactive,amniotic fluid normal, normal UA Doppler * 11/18 Growth US and NST with MFM: EFW 2036 g = 9%, AC 8%, normal fluid and dopplers. * Weekly BPP with dopplers until delivery * Growth US Q 3 weeks. * Provided continued reassuring testing and EFW between 3 and 10%, plan for induction of labor 38 0/7 - 39 0/7 weeks. Peds recommended at delivery. * IOL requested for 12/12 at 38w0d GA Flu shot: 07/07/23 Covid: RSV: 11/03/23 TDAP: received OB - Problem Based A/P Additional Plan (1) Spontaneous rupture of membranes: Status: Acute (2) Spontaneous onset of labor: Status: Acute (3) affected by growth restriction: Status: Acute Plan Epidural administered by OFFICE ENGINEER. Anticipate vaginal delivery. Delivery/Labor/Induction Plan Plan: expectant management OB Result Labs Labs: Amnisure positive. Labs Blood Type: B (+) positive Rubella: immune RPR/VDLR: nonreactive GBS Status: negative HBsAG: negative OB Exam Physical Exam Vital signs: Temp Pulse Resp BP Pulse Ox 98.1 F 99 16 87/52 L 96 12/11/23 08:40 12/11/23 11:32 12/11/23 08:40 12/11/23 11:32 12/11/23 11:31 Narrative: General appearance: Alert, cooperative, no acute distress Pulm: CTA bilaterally CV: RRR, no murmurs Ext: trace edema : Normal external female genitalia, no lesions. Cervical exam per nursing, forebag palpable. Detailed Labor and Delivery Exam Patient Gravid: Yes Dilation (cm): 6 Contraction Frequency: 2-4 minutes Contraction duration (sec): 60 Contraction intensity: Moderate
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
[2023-12-11] MEDS: ePHEDrine sulfate 5 MG/ML inj 10 MG IVP (12:34)
--- NOTE | 2023-12-11 13:05 | P.OBPN_ITS ---
Subjective Time Seen by Provider: 13:05 Date Seen: 12/11/23 Narrative: Patient comfortable, but having some nausea and lightheadedness from hypotension due to epidural. Has had multiple doses of medication for low BP. Objective Exam: Appears comfortable. No acute distress. Vital Signs: Last Vital Signs Temp 98.2 F 12/11/23 11:40 Pulse 75 12/11/23 13:04 Resp 16 12/11/23 08:40 BP 106/53 L 12/11/23 13:04 Pulse Ox 93 12/11/23 13:02 Pelvic Exam Dilation (cm): 8 Effacement (%): 100 Station: 0 Comments: Forebag present, artificially ruptured, clear fluid. Contractions Monitor mode: External Contraction intensity: Strong/Firm Assessment Assessment: active labor Station: 0 Status: Category l Heart Rate Baseline: 140 Pan Devulcanizer Helper Variability: Moderate (6-25) Monitor Accelerations: Present Monitor Decelerations: None Plan Plan: Continue current management. Anticipate vaginal delivery.
[2023-12-11] MEDS: OXYTOCIN 30 unit/500 ML in NS 30 UNIT/500 ML BAG 300 UNIT IVPB (15:58)
[2023-12-11] MEDS: miSOPROStoL 800 MCG/4 TABLET PR (16:07)
--- NOTE | 2023-12-11 16:11 | W.PM.OBVAGDE ---
OB Procedure Vag Delivery Mother Details Mother Details: The patient is a 28 year-old, 2, now Para 1001, admitted on 12/11/23 at 37 5/7 weeks gestation in labor following spontaneous rupture of membranes. : 2 Para: 1 Weeks Gestation: 37.5 Admission Date: 12/11/23 Additional Details Amniotic Membrane Status: SROM (at home) Amniotic Membrane Rupture Date: 12/11/23 Amniotic Membrane Rupture Time: 08:00 Amniotic Membrane Fluid Description: Clear Analgesia/Anesthesia Type: Epidural Waterbirth: No Pitcoin: No Intrapartal Events: None Labor Onset: 11:24 Complete: 15:44 Pushin:49 Heart: heart tones during second stage were 135 bpm baseline with good variability, variable decel to 90 with good return. Baby out in 2 pushes. Delivery Details Delivery Date: 12/11/23 Delivery Time: 15:53 Route of delivery: Gender: Female Infant Viability: Alive; Heart Rate Present Position at Delivery: OA Delivery Details: Delivered over intact perineum via spontaneous vaginal delivery. Infant was placed on maternal abdomen.? Cord was clamped and cut after a 30-60 second delay. Nose and mouth were bulb suctioned.? weight 2980 g. 1 Minute Interval Total Score: 8 5 Minute Interval Total Score: 9 Additional Details Shoulder Dystocia: No Placenta Delivery Time: 15:59 Placental Delivery Description: Spontaneous Procedure Done: Global Blood Loss: 240 Laceration: None Blood Loss Measurement Type: QBL Bakri Used: No Sponge/Need Count Correct: Yes Cord Vessel Description: 3 Vessels Event Summary Status: Mother and infant were stable after delivery. Misoprostol 800 mcg PA given along with IV pitocin and bimanual massage for brief uterine atony. Disposition: floor
[2023-12-12] VITALS (21 sets, daily range): BP systolic 77–113; BP diastolic 35–79; PULSE 56–85; RESP 16–18; TEMP 36.3–36.8; O2SAT 93–98
[2023-12-12 06:48] LABS: Hemoglobin* 11.6 gm/dL (12.0-16.0)
--- NOTE | 2023-12-12 07:33 | PM.OBPNVD1 ---
OB - PN:Subj Subjective Date Seen: 12/12/23 Patient comments OB post-: pain well controlled infant status: and doing well feeding status: exclusively Narrative: Altagracia is a 28 y.o. who was admitted to [facility] for labor.? She had an uncomplicated NVD.? ?? The patient feels well.? The pain is well controlled with current medications.? She has no new complaints.? She is breast feeding and reports things are going well.? the patient has done well.? Vitals have been stable.? She has remained afebrile.? Has a good appetite, is tolerating a general diet.? She is voiding without difficulty.? She is passing gas and has not had a bowel movement.? She is ambulating and denies any dizziness.? Has Small amount of rubra lochia.?She is scheduled for a tubal ligation today at noon, is currently NPO. OB - PN: Obj Exam Physical Exam: Vital signs: Temp Pulse Resp BP Pulse Ox O2 Del Method 98.3 F 69 16 96/64 98 Room Air 12/12/23 03:45 12/12/23 03:45 12/12/23 03:45 12/12/23 03:45 12/12/23 03:45 12/12/23 03:45 Narrative: GENERAL APPEARANCE:? normal affect, alert, no distress? MOOD:? appropriate? HEENT: normocephalic, neck supple, full ROM? CHEST:? Symmetrical chest wall movement.? Normal respiratory effort.? Clear to auscultation ? HEART:? regular rate and rhythm? ABDOMEN:? soft, non-tender. Uterine fundus is firm, at Umbilicus, Midline and is appropriate for the stage of recovery.? Bowel sounds present.? PERINEUM:? mild edema of the perineum, there is not a laceration that is healing well.? EXTREMITIES:? normal and no edema? OB - PN: Obj Data Labs Labs: Laboratory Results - last 24 hr 12/11/23 12/11/23 12/12/23 09:53 Unknown 06:25 WBC 9.30 RBC 4.33 Hgb 11.9 L 11.6 L Hct 35.6 MCV 82 MCH 28 MCHC 33 RDW Coeff of Tianna 13.8 Plt Count 128 L Neut % (Auto) 76.9 H Lymph % (Auto) 17.7 L [place] % (Auto) 3.8 Eos % (Auto) 0.5 Baso % (Auto) 0.1 Neut # (Auto) 7.20 H Lymph # (Auto) 1.60 [place] # (Auto) 0.40 Eos # (Auto) 0.05 Baso # (Auto) 0.01 Abs Immat Gran (auto) 0.09 Imm/Tot Granulo (auto) 1.0 Membrane Rupture POSITIVE Blood Type B Positive Antibody Screen NEGATIVE OB - PN: A/P Delivery Assessment and Plan (1) care and examination immediately after delivery: Status: Acute (2) Lactating mother: Status: Acute (3) affected by growth restriction: Status: Acute Plan day: 1 Plan: routine care Comments: G 2 P 2 status post uncomplicated NVD??? 1.? Continue route PP cares? 2.? .? May see if desired? 3.? Anticipate discharge home tomorrow? 4. tubal scheduled today at noon. Pt unsure she will discharge after, has a history of slow recovery after anesthesia.
[2023-12-12] MEDS: DOCUSATE SODIUM 100 MG CAPSULE PO (08:18)
[2023-12-12] MEDS: LACTATED RINGERS 1000 ML 1,000 ML 100 ML IV ×2 (11:53→13:55)
[2023-12-12] MEDS: BUPIVACAINE 0.5 %/EPI 1:200K 30 ML INJECTION (12:35)
[2023-12-12] MEDS: KETOROLAC 30 MG/ML inj IVP (12:36)
--- NOTE | 2023-12-12 12:53 | W.ANESCHARGE ---
Anesthesia Charges Start Date/Time Anesthesia Start Date: 12/12/23 Anesthesia Start Time: 11:41 Stop Date/Time Anesthesia Stop Date: 12/12/23 Anesthesia Stop Time: 12:50
--- NOTE | 2023-12-12 13:00 | P.GYNPRC_ITS ---
Procedure Note Time Seen by Provider: 12:00 Date of procedure: 12/12/23 Pre-op diagnosis: Undesired fertility Post-op diagnosis: same Procedure: bilateral salpingectomy Anesthesia: spinal Complications: None Surgeon: Josephine Espinal MD Estimated blood loss (mL): 10 IV fluids (mL): 600 Pathology: specimen obtained, sent to pathology (Bilateral fallopian tube) Condition: stable Disposition: floor Procedure Description: Preoperative diagnosis: Altagracia is a 28 year-old 3 para 2011 with undesired fertility. We discussed risks/benefits/alternatives of permanent sterilization. We discussed that there should be clear understanding this is permanent and irreversible. The mechanism of action is to prevent conception by blocking trans port of sperm from the lower genital tract to an ovulated oocytes. My preferred method of sterilization is salpingectomy. Salpingectomy is the removal of bilateral fallopian tubes. There is potential opportunity to decrease the risk of ovarian cancer in patients who already are undergoing pelvic surgery for benign indications. It can decrease the risk of future ovarian cancer by as much as 40-60%. I informed patient that most women who choose sterilization do not regret their decision. CREST study report that 5 year risk of regret is about 7%. Cumulative risk of regret w/in 14 years of procedure is 20% for patient <30 y/o and 6% >30 years of age. We also discussed risk of laparoscopic surgery including pain, bleeding, infection, and damages to the surrounding structures of the operative site. We also reviewed postoperative expectations and recovery course. Patient is aware of alternatives such as medical contraception, LARCs, partner vasectomy etc. After counseling patient would like to proceed. Consents signed and surgical scheduling form filled out. Findings: On exam under anesthesia the fundus was noted to be approximately 2 cm below the umbilicus. The uterus fallopian tubes and ovaries all appeared normal. Other findings: Omental adhesions to fascia. Procedure: Altagracia was taken was taken to the operating room where spinal anesthesia was found to be adequate. Mcdaniel catheter was then placed. She was placed in the dorsal supine position and prepped and draped in a normal sterile manner. 0.5% Marcaine was instilled in a horizontal manner, inferior to the umbilicus, 10 mL was used. The skin was then incised in a horizontal manner and the inferior aspect of the umbilicus. Approximately 2 cm length incision was made. This incision was carried sharply to the underlying layer of fascia. The fascia was grasped with 2 Allis clamps and incised in the midline with a scalpel. This incision was carried laterally with Magana scissors. The peritoneum was identified and entered sharply with Deepa's and Metzenbaum due to omental adhesions. A small Andres-O self-retaining retractor was then placed. The left fallopian tube was brought to the incision, grasped with a Bountiful clamp, and followed to the fimbriated end of the fallopian tube. The hand-held LigaSure dissecting instrument was used to perform serial pedicles putting at the fimbriated end of the tube. The tube was then removed from the cornea. The pedicles were inspected and bipolar cautery used to obtain hemostasis. The right fallopian tube was then brought to the incision and removed in a similar manner. Again excellent hemostasis noted. The Andres-O retractor was then removed. The fascia was reapproximated using 0 Vicryl in a running manner. The subcutaneous tissue was irrigated with a small amount of saline. The skin was reapproximated using 4-0 Monocryl in a running subcuticular manner. Exophin skin adhesive was applied. The patient tolerated this procedure well. Sponge, lap and instrument counts were correct x2 at the end of the procedure and the patient was taken to the recovery area in stable condition. The patient received 30 mg IV Toradol at the end of the procedure.
--- NOTE | 2023-12-12 13:03 | SUR.PHASEI ---
Pts BP low Pt placed in [place] postion and IV oped up Pt denies any pain monitor BP
--- NOTE | 2023-12-12 13:30 | W.ANESCHARGE ---
Anesthesia Charges Start Date/Time Anesthesia Start Date: 12/12/23 Anesthesia Start Time: 11:41 Stop Date/Time Anesthesia Stop Date: 12/12/23 Anesthesia Stop Time: 12:50
--- NOTE | 2023-12-12 13:46 | PM.ANPOST ---
Post Anesthesia Note Post Anesthesia Note Patient seen: Inpatient Respiratory Status: adequate Cardiovascular Status: adequate Mental Status: baseline Pain: adequate Temp: baseline Anesthetic awareness: N/A Complications: none Follow care: none
[2023-12-12] MEDS: ACETAMINOPHEN 500 MG TABLET 1000 MG PO (14:24)
[2023-12-12] MEDS: IBUPROFEN 600 MG TABLET PO (22:50)
[2023-12-13 02:46] VITALS: BP 97/63; PULSE 58; RESP 16; TEMP 36.2; O2SAT 97
--- NOTE | 2023-12-13 07:36 | P.DS_ITS ---
Documented by User: Kina Aishwaryatonya 12/13/23 09:24 DS: Providers Provider Time Seen by Provider: 07:36 Date Seen: 12/13/23 Date of admission: 12/11/23 09:30 Primary care physician: Billie Guadarrama DO Admitting Clinician: Lise De Leon MD Attending Physician on discharge: Lise De Leon MD Date of Discharge: 12/13/23 DS: Diagnosis Discharge Diagnosis (1) care and examination immediately after delivery: Status: Acute (2) Lactating mother: Status: Acute Exam Const: Vital Signs, click to edit/add: Vital Signs - 24 hr 12/12/23 08:30 12/12/23 12:49 12/12/23 12:50 Temperature 97.9 F 97.4 F L 97.4 F L Pulse Rate 76 75 Pulse Rate [Blood Pressure Cuff] 74 Respiratory Rate 16 16 16 Blood Pressure 77/35 L 77/38 L Blood Pressure [Le ft Arm] 113/79 Pulse Oximetry 96 94 94 Oxygen Delivery Me thod Room Air Room Air Room Air 12/12/23 12:55 12/12/23 13:00 12/12/23 13:05 Temperature Pulse Rate 66 65 65 Pulse Rate [Blood Pressure Cuff] Respiratory Rate 16 16 16 Blood Pressure 85/38 L 89/44 L 86/45 L Blood Pressure [Le ft Arm] Pulse Oximetry 94 93 94 Oxygen Delivery Me thod Room Air Room Air Room Air 12/12/23 13:10 12/12/23 13:15 12/12/23 13:20 Temperature Pulse Rate 63 60 57 L Pulse Rate [Blood Pressure Cuff] Respiratory Rate 16 16 16 Blood Pressure 85/49 L 89/46 L 90/53 L Blood Pressure [Le ft Arm] Pulse Oximetry 94 94 95 Oxygen Delivery Me thod Room Air Room Air Room Air 12/12/23 13:25 12/12/23 13:30 12/12/23 13:35 Temperature 97.4 F L Pulse Rate 56 L 56 L 56 L Pulse Rate [Blood Pressure Cuff] Respiratory Rate 16 16 16 Blood Pressure 92/53 L 98/59 L 95/60 Blood Pressure [Le ft Arm] Pulse Oximetry 95 94 95 Oxygen Delivery Me thod Room Air Room Air Room Air 12/12/23 13:40 12/12/23 13:45 12/12/23 14:15 Temperature 98.1 F Pulse Rate 56 L 61 65 Pulse Rate [Blood Pressure Cuff] Respiratory Rate 16 16 16 Blood Pressure 97/57 L 100/67 102/70 Blood Pressure [Le ft Arm] Pulse Oximetry 95 95 94 Oxygen Delivery Me thod Room Air Room Air Room Air 12/12/23 15:00 12/12/23 15:30 12/12/23 16:15 Temperature 98.1 F 98.3 F 98.2 F Pulse Rate 75 79 85 Pulse Rate [Blood Pressure Cuff] Respiratory Rate 18 16 16 Blood Pressure 98/65 94/63 104/72 Blood Pressure [Le ft Arm] Pulse Oximetry 94 95 95 Oxygen Delivery Me thod Room Air Room Air Room Air 12/12/23 18:30 12/12/23 21:48 12/13/23 02:46 Temperature 97.9 F 97.7 F 97.1 F L Pulse Rate 68 Pulse Rate [Blood Pressure Cuff] 73 58 L Respiratory Rate 16 18 16 Blood Pressure 109/74 Blood Pressure [Le ft Arm] 104/69 97/63 Pulse Oximetry 94 95 97 Oxygen Delivery Me thod Room Air Room Air Room Air Psych: Common normals: mental status grossly normal OB - DS: Summary Hospital Course Hospital Course: She is a 28 year old at 37 5/7 weeks gestation. She had an uncomplicated vaginal/ delivery. She delivered a viable female infant. She had Tubal Ligation. The patient feels well.? The pain is well controlled with current medications.? She has no new complaints.? Urinary output is adequate and she is voiding without difficulty.? Has a good appetite, is tolerating a general diet, is passing flatus, and has had a bowel movement.? Has scant amount of rubra lochia.? She is ambulating well. She is and reports it is going well.? Peripartum Data Infant delivery method: Vaginal Laceration description: None Procedures: Procedures Operation Date: 12/12/23 12:00 Actual Procedure Side Surgeon p Bilateral Salpingectomy Bilateral Josephine Rian Espinal MD Gender: Female Status at Discharge Functional status at discharge: independent ambulation Time Spent with Patient Time attestation: Total time spent providing and/or coordinating discharge services: Discharge Plan Discharge Disposition: Home, Self-Care Date of Admission: 12/11/23 09:30 Attending Provider on Discharge: Katie Bai Primary Care Provider: Billie Guadarrama Condition: Stable Anticipated Discharge Date/Time: 12/13/23 12:00 Discharge Medications: New acetaminophen 500 mg Tablet 1,000 mg PO Q6H PRNQty: 0 0RF levothyroxine 100 mcg Tablet 200 mcg PO DAILY@0700 Qty: 0 0RF docusate sodium 100 mg Capsule 100 mg PO DAILY Qty: 90 0RF ibuprofen 600 mg Tablet 600 mg PO Q6H PRNQty: 60 0RF Continued DHA 200 mg capsule 200 mg PO DAILY levothyroxine 200 mcg tablet 200 mcg PO DAILY Discontinued progesterone micronized 200 mg capsule 200 mg vaginal QPM Qty: 60 2RF Discharge Orders: Discharge Order (Routine); Ordered 12/13/23 Ordered By: Katie Bai Patient Education: OB Over the Counter Medication Information, OB Vaginal/Bottle Feeding Additional Instructions: Discharge instructions were reviewed with the patient including signs and symptoms of infection and home going medications Nothing vaginally for 6 weeks: no tampons or intercourse Do not drive while taking narcotic pain medication(s) Off Work or School for 6 weeks 2-week visit: discuss feeding concerns, review control options and screen for anxiety/depression. 6-week visit for an annual exam. consultation services are available to all mothers and babies for the first year after delivery.? To make an appointment, please call [phone]. Activity Level: Activity as Tolerated Discharge Diet: Regular Follow Up Appointments: [facility] [Provider Group] Forms: [employer] Info Instructions Documented by User: Katie Bai CNM 12/13/23 10:24 DS: Diagnosis Discharge Diagnosis (1) care and examination immediately after delivery: Status: Acute (2) Lactating mother: Status: Acute OB - DS: Summary Hospital Course Hospital Course: She is a 28 year old at 37 5/7 weeks gestation. She had an uncomplicated vaginal/ delivery. She delivered a viable female . She had Tubal Ligation. The patient feels well.? The pain is well controlled with current medications.? She has no new complaints.? Urinary output is adequate and she is voiding without difficulty.? Has a good appetite, is tolerating a general diet, is passing flatus, and has had a bowel movement.? Has scant amount of rubra lochia.? She is ambulating well. She is and reports it is going well.? I,?Katie Bai APRN, CNHerminio, was present for visit and have reviewed and agree with documentation by the Certified Nurse Midwifery Student. Peripartum Data complications: none [place] Discharge Plan: Home Discharge Plan Discharge Disposition: Home, Self-Care Date of Admission: 12/11/23 09:30 Attending Provider on Discharge: Katie Bai Primary Care Provider: Billie Guadarrama Condition: Stable Anticipated Discharge Date/Time: 12/13/23 12:00 Discharge Medications: New acetaminophen 500 mg Tablet 1,000 mg PO Q6H PRNQty: 0 0RF levothyroxine 100 mcg Tablet 200 mcg PO DAILY@0700 Qty: 0 0RF docusate sodium 100 mg Capsule 100 mg PO DAILY Qty: 90 0RF ibuprofen 600 mg Tablet 600 mg PO Q6H PRNQty: 60 0RF Continued DHA 200 mg capsule 200 mg PO DAILY levothyroxine 200 mcg tablet 200 mcg PO DAILY Discontinued progesterone micronized 200 mg capsule 200 mg vaginal QPM Qty: 60 2RF Discharge Orders: Discharge Order (Routine); Ordered 12/13/23 Ordered By: Katie Bai Patient Education: OB Over the Counter Medication Information, OB Vaginal/Bottle Feeding Additional Instructions: Discharge instructions were reviewed with the patient including signs and symptoms of infection and home going medications Nothing vaginally for 6 weeks: no tampons or intercourse Do not drive while taking narcotic pain medication(s) Off Work or School for 6 weeks 2-week visit: discuss infant feeding concerns, review control options and screen for anxiety/depression. 6-week visit for an annual exam. consultation services are available to all mothers and babies for the first year after delivery.? To make an appointment, please call [phone]. Activity Level: Activity as Tolerated Discharge Diet: Regular Follow Up Appointments: [facility] [Provider Group] Forms: [employer] Info Instructions
[2023-12-13 08:45] VITALS: BP 107/71; PULSE 72; RESP 16; TEMP 36.5; O2SAT 98
[2023-12-13] MEDS: DOCUSATE SODIUM 100 MG CAPSULE PO (08:54)
[2023-12-13] MEDS: IBUPROFEN 600 MG TABLET PO (08:54)
[2023-12-13] MEDS: LEVOTHYROXINE 100 MCG TABLET 200 MCG PO (09:35)
--- NOTE | 2023-12-13 11:08 | PC.NURSE ---
Patient discharged. Patients baby continues to be inpatient. Patient tolerating a regular diet, voiding, passing flatus. Incision CDI. Fundus 1 below and firm. Flow is small. Vital signs within normal limits. Ambulating without difficulty. Denies pain. Attentive to child.
[2023-12-13 23:54] LABS: Rapid Plasma Reagin (RPR) Non Reactive (Non Reactive)
== END 2023-12-13 11:08 | disposition home or self-care (01) | DRG 798 ==
LOC: OB OUT 09:31 → OB 09:31
PROVIDERS: Obstetrics & Gynecology; Admitting Provider Obstetrics & Gynecology; PCP Family Medicine; Visit Provider Obstetrics & Gynecology
PROC: 0UT70ZZ Resection of Bilateral Fallopian Tubes, Open Approach (ICD-10-PCS; CPT 58605; principal; 2023-12-12 11:15)
DX: O36.5930 Maternal care for other known or suspected poor fetal growth, third trimester, not applicable or unspecified (principal); Z37.0 Single live birth; O99.284 Endocrine, nutritional and metabolic diseases complicating childbirth; E06.3 Autoimmune thyroiditis; O99.344 Other mental disorders complicating childbirth; F32.A Depression, unspecified; F41.9 Anxiety disorder, unspecified; I95.89 Other hypotension; O62.2 Other uterine inertia; Z30.2 Encounter for sterilization; Z86.32 Personal history of gestational diabetes; Z3A.37 37 weeks gestation of pregnancy
CPT/HCPCS: 00851; 01967; 36415; 84112; 85018; 85025; 86592; 86850; 86900; 86901; 88302; A9270; J1100; J1885; J2250; J2371; J2405; J2704; J2795; J3010; J3490; J7120

== ENCOUNTER 2024-05-07 14:50 | Emergency (ER) | payer MEDICAID, SELFPAY ==
[2024-05-07 14:58] VITALS: BP 130/77; PULSE 77; RESP 18; TEMP 37; O2SAT 98; BMI 41.3
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
--- OUTSIDE RECORDS SUMMARY | 2024-05-07 15:26 | XMS_ITS | Encounter Summary ---
Author Organization [facility] Address [address] [place] [address]. 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 All others placed. * Telephone Encounter - Rocio Mccarthy MD - 02/06/2024 4:57 PM CDT She was seen for hypothyroidism- so ok to order TSH Free T4 Free T3 Reverse T3 TPO TgAb Other labs needs to be ordered by PCP. documented in this encounter Plan of Treatment Not on file documented as of this encounter Results * Thyroglobulin and Antibody Reflex (02/13/2024 2:02 PM CDT) Thyroglobulin Antibody <20 <40 IU/mL 02/14/2024 9:14 AM CDT [facility] Blood BLOOD SPECIMEN / Unknown Venipuncture / Unknown 02/13/2024 2:02 PM CDT 02/13/2024 2:02 PM CDT Rocio Mccarthy MD LAB - BLOOD ORDER [facility]Endo [address] [facility] [address], Room [address] * (ABNORMAL) Thyroid peroxidase antibody (02/13/2024 2:02 PM CDT) Thyroid Peroxidase Antibody 927(H) <35 IU/mL 02/14/2024 9:14 AM CDT [facility] Blood BLOOD SPECIMEN / Unknown Venipuncture / Unknown 02/13/2024 2:02 PM CDT 02/13/2024 2:02 PM CDT Rocio Mccarthy MD LAB - BLOOD ORDER [facility]Endo [address] [facility], Room [address] * T3 reverse (02/13/2024 2:02 PM CDT) T3, Reverse ng/dL 18.1 9.0 - 27.0 ng/dL 02/16/2024 7:30 AM CDT [facility] Comment: INTERPRETIVE INFORMATION: Triiodothyronine, Reverse - LC-MS/MS This test was developed and its performance characteristics determined by [facility]. It has not been cleared or approved by the [place] Food and Drug Administration. This test was performed in a CLIA certified laboratory and is intended for clinical purposes. 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
--- OUTSIDE RECORDS SUMMARY | 2024-05-07 15:26 | XMS_ITS | Encounter Summary ---
Author Organization [facility] Address [address] [place] [address]. [place] [address] Care Team Providers Care Cloth Cutter Name Role Phone [place] Billie Primary Care Provider Rocio Mccarthy MD Unavailable [phone] Erica Tristan MD Unavailable [phone] Encounter Details Date Type Department Care Team (Latest Contact Info) Description 02/13/2024 Travel Social History Tobacco Use Types Packs/Day [...] School Help Needed Not on file 07/12 Comments Yes Sex and Gender Information Value Date Recorded Sex Assigned at Female 10/05/2020 9:54 PM ARTIFICIAL BREEDING DISTRIBUTOR Gender Identity Female 10/05/2020 9:54 PM ARTIFICIAL BREEDING DISTRIBUTOR Sexual Orientation Straight 10/05/2020 9: 54 PM ARTIFICIAL BREEDING DISTRIBUTOR documented as of this encounter Plan of Treatment Not on file documented as of this encounter Visit Diagnoses Not on filedocumented in this encounter Additional Health Concerns Assessment Noted Time PHQ-9 Depression Total Score: 11 023 10:04 AM CDT documented as of this encounter Care Teams Cloth Cutter Relationship Specialty Start Date End Date Billie Guadarrama PCP - General 12/17/19 Rocio Mccarthy MD [address] [place], [place] [id number] Assigned Endocrinology Provider 04/24/22 Erica Tristan MD [address] [place], [place] [id number] Assigned OBGYN Provider 08/06/23 documented as of this encounter
--- OUTSIDE RECORDS SUMMARY | 2024-05-07 15:26 | XMS_ITS | Encounter Summary ---
Author Organization [facility] Address [address] [place] [address]. [place] [address] Care Team Providers Care Filters Assembler Name Role Phone Billie Guadarrama Primary Care Provider Rocio Mccarthy MD Unavailable [phone] Erica Tristan MD Unavailable [phone] Encounter Details Date Type Department Care Team (Late st Contact Info) Description 02/14/2024 MyC Medical Advice [facility] [address] [facility] [place] [address] Rocio Mccarthy MD [address] [place] [address] Social History Tobacco Use Types [...] Assigned at Female 10/05/2020 9:54 PM AVIATION ELECTRICAL TECHNICIAN Gender Identity Female 10/05/2020 9:54 PM AVIATION ELECTRICAL TECHNICIAN Sexual Orientation Straight 10/05/2020 9: 54 PM AVIATION ELECTRICAL TECHNICIAN documented as of this encounter Plan of Treatment Not on file documented as of this encounter Visit Diagnoses Not on filedocumented in this encounter Additional Health Concerns Assessment Noted Time PHQ-9 Depression Total Score: 11 023 10:04 AM CDT documented as of this encounter Care Teams Filters Assembler Relationship Specialty Start Date End Date Billie Guadarrama PCP - General 12/17/19 Rocio Mccarthy MD [address] [facility] [address] [place], [place] [address] Assigned Endocrinology Provider 04/24/22 Erica Tristan MD [address] [facility] [address] [place], [place] [address] Assigned OBGYN Provider 08/06/23 documented as of this encounter
--- OUTSIDE RECORDS SUMMARY | 2024-05-07 15:26 | XMS_ITS | Encounter Summary ---
Author Organization [facility] Address [address] [place] [address]. [place] [address] Care Team Providers Care Test Evaluator Name Role Phone Billie Guadarrama Primary Care Provider [phone] Rocio Mccarthy MD Unavailable [phone] Erica Tristan MD Unavailable [phone] Encounter Details Date Type Department Care Team (Late st Contact Info) Description 01/04/2024 [facility] [address] [place] [address] Loren Gillespie, RN Social History Tobacco Use Types Packs/Day [...] Sex Assigned at Female 10/05/2020 9:54 PM LAP WINDING MACHINE OPERATOR Gender Identity Female 10/05/2020 9:54 PM LAP WINDING MACHINE OPERATOR Sexual Orientation Straight 10/05/2020 9: 54 PM LAP WINDING MACHINE OPERATOR documented as of this encounter Plan of Treatment Not on file documented as of this encounter Visit Diagnoses Not on filedocumented in this encounter Additional Health Concerns Assessment Noted Time PHQ-9 Depression Total Score: 11 023 10:04 AM CDT documented as of this encounter Care Teams Test Evaluator Relationship Specialty Start Date End Date Billie Guadarrama PCP - General 12/17/19 Rocio Mccarthy MD [address] [place], [place] [address] Assigned Endocrinology Provider 04/24/22 Erica Tristan MD [address] [place], [place] [address] Assigned OBGYN Provider 08/06/23 documented as of this encounter
--- OUTSIDE RECORDS SUMMARY | 2024-05-07 15:26 | XMS_ITS | Encounter Summary ---
Author Organization [facility] Address [address] [place] [address]. 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 Please see telephone encounter dated 02/16/2024. 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 T3 REVERSE Routine 02/13/2024 2:02 PM CDT 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 documented in this encounter Results * Thyroglobulin by Immunoassay (02/13/2024 2:02 PM CDT) Thyroglobulin by Immunoassay 8.3 <55.0 ng/mL 02/14/2024 10:38 AM CDT SPECIALTY CORE/PROT/END O Blood BLOOD SPECIMEN / Unknown Venipuncture / Unknown 02/13/2024 2:02 PM CDT 02/13/2024 2:02 PM CDT Narrative SPECIALTY CORE/PROT/ENDO - 02/14/2024 10:38 AM CDT Performed on the Siemens SafedoXulite 2000 XPi at the Special Chemistry Laboratory, [facility] Rocio Mccarthy MD LAB - BLOOD ORDER LORNA UM SPECIALTY CORE/PROT/ENDO UM Specialty Core/Prot/Endo [address] [facility] [address], [address] * Thyroglobulin and Antibody Reflex (02/13/2024 2:02 PM CDT) Thyroglobulin Antibody <20 <40 IU/mL 02/14/2024 9:14 AM CDT UM SPECIALTY CORE/PROT/END O Blood BLOOD SPECIMEN / Unknown Venipuncture / Unknown 02/13/2024 2:02 PM CDT 02/13/2024 2:02 PM CDT Rocio Mccarthy MD LAB - BLOOD ORDER LORNA UM SPECIALTY CORE/PROT/ENDO UM Specialty Core/Prot/Endo [address] [facility] [address] [facility], [address] * (ABNORMAL) Thyroid peroxidase antibody (02/13/2024 2:02 PM CDT) Thyroid Peroxidase Antibody 927(H) <35 IU/mL 02/14/2024 9:14 AM CDT UM SPECIALTY CORE/PROT/ENDO Blood BLOOD SPECIMEN / Unknown Venipuncture / Unknown 02/13/2024 2:02 PM CDT 02/13/2024 2:02 PM CDT Rocio Mccarthy MD LAB - BLOOD ORDER LORNA UM SPECIALTY CORE/PROT/ENDO UM Specialty Core/Prot/Endo [address] [facility] [address], [address] * T3 reverse (02/13/2024 2:02 PM CDT) T3, Reverse ng/dL 18.1 9.0 - 27.0 ng/dL 02/16/2024 7:30 AM CDT [facility] Comment: INTERPRETIVE INFORMATION: Triiodothyronine, Reverse - LC-MS/MS This test was developed and its performance characteristics determined by [facility]. It has not been cleared or approved by the US Food and Drug Administration. This test was performed in a CLIA certified laboratory and is intended for clinical purposes. Performed By: [facility] [address] [place] [address] Commutator V Ring Assembler: Fco Rosa MD, PhD CLIA Number: [id number] Blood BLOOD SPECIMEN / Unknown Venipuncture / Unknown 02/13/2024 2:02 PM CDT 02/13/2024 2:02 PM CDT Rocio Mccarthy MD LAB - BLOOD ORDER [place] [address] [place] [id number] [phone] * (ABNORMAL) T4, free (02/13/2024 2:02 PM CDT) Free T4 2.12(H) 0.90 - 1.70 ng/dL 02/14/2024 12:34 AM CDT [facility] Blood BLOOD SPECIMEN / Unknown Venipuncture / Unknown 02/13/2024 2:02 PM CDT 02/13/2024 2:02 PM CDT Rocio Mccarthy MD LAB - BLOOD ORDER [facility] [address] [facility], [address] [place] [address] * (ABNORMAL) TSH (02/13/2024 2:02 PM CDT) TSH 0.01(L) 0.30 - 4.20 uIU/mL 02/14/2024 12:34 AM CDT [facility] Blood BLOOD SPECIMEN / Unknown Venipuncture / Unknown 02/13/2024 2:02 PM CDT 02/13/2024 2:02 PM CDT Rocio Mccarthy MD LAB - BLOOD ORDER [facility] [address] [facility], [address] [place] [address], [facility] documented in this encounter Visit Diagnoses Diagnosis 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
--- OUTSIDE RECORDS SUMMARY | 2024-05-07 15:26 | XMS_ITS | Clinical Summary ---
Author Organization [facility] Address [address] [place] [address] Care Team Providers Care Sheet Metal Duct Installer Name Role Phone Billie Guadarrama Primary Care Provider Rocio Mccarthy MD Unavailable [phone] Erica Tristan MD Unavailable [phone] Allergies Active Allergy Reactions Criticality Noted Date Comments Drospirenone-Ethinyl Estradiol Headache,Rash Low Oxycodone-Acetaminophen Rash Low 04/09/2020 Medications Medication Sig Dispensed Refills Start Date End Date Status Vit-Fe Fumarate-FA ( VITAMIN PO) Take by mouth daily Active Progesterone Micronized 10 % CREA 08/09/2023 Acti ve progesterone (PROMETRIUM) [address] 200 mg vaginally 09/06/2023 Active NIFEdipine (PROCARDIA) 10 MG capsuleIndications:I ndication for care in labor or delivery Take 1 capsule (10 mg) by mouth every 6 hours 28 capsule 10/20/2023 Active nitroFURantoin macrocrystal-monohyd rate (MACROBID) 100 MG capsuleIndications:I ndication for care in labor or delivery Take 1 capsule (100 mg) by mouth 2 times daily 12 capsule 10/20/2023 Active levothyroxine (SYNTHROID/LEVOTHROI D) 100 MCG tabletIndications: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 Take 188 mcg/day (100+88) 90 tablet 1 02/16/2024 Active levothyroxine (SYNTHROID/LEVOTHROI D) 88 MCG tabletIndications: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 Take 188 mcg/day (100+88) 90 tablet 1 02/16/2024 Active Active Problems Problem Noted Date Diagnosed Date , incidental 06/21/2023 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 labor in third trimester with de livery 05/28/2021 Indication for care in labor or delivery 021 delivery 05/25/2021 Encounter for triage in patient 021 NO ACTIVE PROBLEMS Encounters Date Type Department Care Team Description 02/16/2024 Telephone [facility] [address] [place] [phone] Rocio Mccarthy MD 02/14/2024 MyC Medical Advice [facility] [address] [place] [phone] Rocio Mccarthy MD 02/13/2024 2:15 PM CDT Lab [facility] [email or web address] [place] [address] 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 02/13/2024 Travel from Last 3 Months Immunizations Name Administration Dates Next Due Comvax (HIB/HepB) 01/07/1998,1997 DTAP (<7y) 09/20/2002, 8,1997,1996 DTP-Hib 1997 DTaP, Unspecified 04/06/2010 [id number] Novel Flu 12/23/2009 HEPATITIS A (PEDS 12M-18Y) [...] School Help Needed Not on file 07/12 Sex and Gender Information Value Date Recorded Sex Assigned at Female 10/05/2020 9:54 PM MARKETER Gender Identity Female 10/05/2020 9:54 PM MARKETER Sexual Orientation Straight 10/05/2020 9: 54 PM MARKETER Last Filed Vital Signs Vital Sign Reading Time Taken Comments Blood Pressure 114/57 11/18/2023 10:26 AM MARKETER Pulse 99 11/18/2023 10:26 AM MARKETER Temperature 36.6 ??C (97.9 ??F) 10/20/2023 7:18 AM CS T Respiratory Rate 16 10/20/2023 7:18 AM MARKETER Oxygen Saturation 98% 11/04/2023 3:10 PM MARKETER Inhaled Oxygen Concentration - - Weight 114.8 kg (253 lb) 10/19/2023 12:22 PM MARKETER Height 165.1 cm (5' 5) 10/19/2023 12:22 PM MARKETER Body Mass Index 42.1 10/19/2023 12:22 PM MARKETER Plan of Treatment Health Maintenance Due Date Last Done Comments ADVANCE CARE PLANNING 1997 ANNUAL REVIEW OF HM ORDERS 1997 YEARLY PREVENTIVE VISIT 06/01/2003 06/01/2002, 05/23 HEPATITIS C SCREENING 2015 COVID-19 Vaccine ( season) 2023 INFLUENZA VACCINE (#1) 2024 , 07/07/2023, 10/14/2022, Additional history exists TSH W/FREE T4 REFLEX 02/12/2025 02/13/2024, 02/13/2024, 12/20/2023, Additional history exists PAP 01/23/2027 01/24/2024, 0403/2024, 12/04/2020 DTAP/TDAP/TD IMMUNIZATION (9 - Td or Tdap) 10/19/2033 10/19/2023, 05/11/2021, 09/10/2020, Additional history exists HEPATITIS B IMMUNIZATION Completed 998, 01/07/1998, 01/07/1998, Additional history exists IPV IMMUNIZATION Completed 09/20/2002, 08/1998, 03/20/1998, Additional history exists HPV IMMUNIZATION Completed 10/27/2012, , 07/06/2011 MENINGITIS IMMUNIZATION Completed 07/26/2013 HIV SCREENING Completed 12/04/2020 CHLAMYDIA SCREENING Discontinued 05/25/2021 PHQ-2 (once per calendar year) Completed 10/18/2023, 06/21/2023, 06/21/2023, Additional history exists Pneumococcal Vaccine: Pediatrics (0 to 5 Years) and At-Risk Patients (6 to 64 Years) Aged Out No longer eligible based on patient's age to complete this topic RSV MONOCLONAL ANTIBODY Aged Out No l onger eligible based on patient's age to complete this topic Procedures Procedure Name Priority Date/Time Associated Diagnosis Comments THYROGLOBULIN BY IMMUNOASSAY Routine 02/13/2024 2:02 PM CDT 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 THYROGLOBULIN AND ANTIBODY REFLEX Routine 02/13/2024 2:02 PM CDT 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 THYROID PEROXIDASE ANTIBODY Routine 02/13/2024 2:02 PM CDT 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 T3 REVERSE Routine 02/13/2024 2:02 PM CDT 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 T4 FREE Routine 02/13/2024 2:02 PM CDT 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 TSH Routine 02/13/2024 2:02 PM CDT 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 CHLAMYDIA TRACHOMATIS/NEISSERIA GONORRHOEAE BY PCR STAT 05/25/2021 6:45 PM CDT HIV 1&2 ANTIBODY (EXTERNAL RESULT) Routine 12/04/2020 12:00 AM MARKETER from Last 3 Months or Most Recently Relevant to Health Maintenance Results * Thyroglobulin and Antibody Reflex (02/13/2024 2:02 PM CDT) Thyroglobulin Antibody <20 <40 IU/mL 02/14/2024 9:14 AM CDT UM SPECIALTY CORE/PROT/END O Blood BLOOD SPECIMEN / Unknown Venipuncture / Unknown 02/13/2024 2:02 PM CDT 02/13/2024 2:02 PM CDT Rocio Mccarthy MD LAB - BLOOD ORDER LOR[place] UM SPECIALTY CORE/PROT/ENDO UM Specialty Core/Prot/Endo [address] [facility] [address], [address] * Thyroglobulin by Immunoassay (02/13/2024 2:02 PM CDT) Thyroglobulin by Immunoassay 8.3 <55.0 ng/mL 02/14/2024 10:38 AM CDT UM SPECIALTY CORE/PROT/END O Blood BLOOD SPECIMEN / Unknown Venipuncture / Unknown 02/13/2024 2:02 PM CDT 02/13/2024 2:02 PM CDT Narrative UM SPECIALTY CORE/PROT/ENDO - 02/14/2024 10:38 AM CDT Performed on the Siemens Immulite 2000 XPi at the Special Chemistry Laboratory, [facility] Rocio Mccarthy MD LAB - BLOOD ORDER [place] UM SPECIALTY CORE/PROT/ENDO UM Specialty Core/Prot/Endo [address] [facility] Building, [address] * (ABNORMAL) TSH (02/13/2024 2:02 PM CDT) TSH 0.01(L) 0.30 - 4.20 uIU/mL 02/14/2024 12:34 AM CDT [facility] Blood BLOOD SPECIMEN / Unknown Venipuncture / Unknown 02/13/2024 2:02 PM CDT 02/13/2024 2:02 PM CDT Rocio Mccarthy MD LAB - BLOOD ORDER LORNA [facility] [place] [facility] [address] [facility] [address], [address] [id number] * (ABNORMAL) Thyroid peroxidase antibody (02/13/2024 2:02 PM CDT) Thyroid Peroxidase Antibody 927(H) <35 IU/mL 02/14/2024 9:14 AM CDT SPECIALTY CORE/PROT/ENDO Blood BLOOD SPECIMEN / Unknown Venipuncture / Unknown 02/13/2024 2:02 PM CDT 02/13/2024 2:02 PM CDT Rocio Mccarthy MD LAB - BLOOD ORDER LOR[place] SPECIALTY CORE/PROT/ENDO Specialty Core/Prot/Endo [address] [facility], [address] * (ABNORMAL) T4, free (02/13/2024 2:02 PM CDT) Pathologist [facility] Free T4 2.12(H) 0.90 - 1.70 ng/dL 02/14/2024 12:34 AM CDT LABORATORY Blood BLOOD SPECIMEN / Unknown Venipuncture / Unknown 02/13/2024 2:02 PM CDT 02/13/2024 2:02 PM CDT Rocio Mccarthy MD LAB - BLOOD ORDER [place] [facility] [place] [facility] [address] [facility], [address] * T3 reverse (02/13/2024 2:02 PM CDT) T3, Reverse ng/dL 18.1 9.0 - 27.0 ng/dL 02/16/2024 7:30 AM CDT [facility] Comment: INTERPRETIVE INFORMATION: Triiodothyronine, Reverse - LC-MS/MS This test was developed and its performance characteristics determined by [email or web address]. It has not been cleared or approved by the US Food and Drug Administration. This test was performed in a CLIA certified laboratory and is intended for clinical purposes. Performed By: [email or web address] [address] [place] [address] [address] Contractor: Fco Rosa MD, PhD CLIA Number: [id number] Blood BLOOD SPECIMEN / Unknown Venipuncture / Unknown 02/13/2024 2:02 PM CDT 02/13/2024 2:02 PM CDT Rocio Mccarthy MD LAB - BLOOD ORDER [place] [facility] [address] [place] [id number], [facility] [phone] * Chlamydia trachomatis/Neisseria gonorrhoeae by PCR (05/25/2021 6:45 PM CDT) Chlamydia Trachomatis Negative Negative 05/26/2021 11:22 AM CDT [facility] Comment: Negative for C. trachomatis rRNA by help desk manager mediated amplification. A negative result by help desk manager mediated amplification does not preclude the presence of infection because results are dependent on proper and adequate collection, absence of inhibitors and sufficient rRNA to be detected. Neisseria gonorrhoeae Negative Negative 05/26/2021 11:22 AM CDT [facility] Comment:Negative for N. gono rrhoeae rRNA by help desk manager mediated amplification. A negative result by help desk manager mediated amplification does not preclude the presence of C. trachomatis infection because results are dependent on proper and adequate collection, absence of inhibitors and sufficient rRNA to be detected. Swab CERVIX UTERI STRUCTURE / Unknown Non-blood Collection / Unknown 05/25/2021 6:45 PM CDT 05/25/2021 7:17 PM CDT Jaimie Clinton MD LAB - MICRO GEN ERAL ORDERABLES [facility] ([facility]) [address] [facility], [address] [place] [address], [place] [phone] * HIV-1 Antibody (External Result) (12/04/2020 12:00 AM MARKETER) HIV 1&2 Antibody (External) Negative Nonreactive EXTERNAL LAB 12/04/2020 Patient Reported LAB - HIM EXTERNAL R ESULT EXTERNAL LAB External Lab from Last 3 Months or Most Recently Relevant to Health Maintenance Advance Directives For more information, please contact: [phone] * Full Code (Latest Code Status on File) Date Activated Date Inactivated Comments 10/19/2023 1:11 PM 10/20/2023 12:49 PM All basic a nd advanced life-sustaining interventions are performed as appropriate Question Answer Comments Code status determined by: Discussion with patie nt/ legal decision maker * Full Code Date Activated Date Inactivated Comments 05/29/2021 3:21 PM 05/31/2021 3:16 PM All basic an d advanced life-sustaining interventions are performed as appropriate Question Answer Comments Code status determined by: Discussion with patie nt/ legal decision maker * Full Code Date Activated Date Inactivated Comments 05/28/2021 8:18 PM 05/29/2021 3:21 PM All basic an d advanced life-sustaining interventions are performed as appropriate Question Answer Comments Code status determined by: Discussion with patie nt/ legal decision maker * Full Code Date Activated Date Inactivated Comments 05/26/2021 8:14 AM 05/26/2021 5:05 PM All basic an d advanced life-sustaining interventions are performed as appropriate Question Answer Comments Code status determined by: Discussion with patie nt/ legal decision maker Care Teams Sheet Metal Duct Installer Relationship Specialty Start Date End Date Billie Guadarrama PCP - General 12/17/19 Rocio Mccarthy MD [address] [facility] [address] [place] [address] Assigned Endocrinology Provider 04/24/22 Erica Tristan MD [address] [facility] 400 [place], [place] [address] Assigned OBGYN Provider 08/06/23
--- OUTSIDE RECORDS SUMMARY | 2024-05-07 15:26 | XMS_ITS | Clinical Summary ---
Author Organization [facility] Address [place], [place] [address] Care Team Providers Care Buckle Stapler Name Role Phone Vasquez Ridley MD Unavailable [phone] Sanjeev Brar MD Unavailable [phone] Pcp, No Primary Care Provider Unavailabl e [...] 200 mg into the vagina at bedtime. 09/06/2023 Active cholecalciferol (Vitamin D-3) 2,000 unit [...] Date Pediculus capitis (head louse) 06/07/2007 07/26/2007 Immunizations Name Administration Dates Next Due AMB [...] (Age >=3 years) 07/26/20 13,06/26/2012,12/23/2009,07/26,07/26/2002 Influenza, IIV4 07/07/2023,,07/14/2020,08/08,06/22/2018,08/29/2017,07/13/2016 ,10/02/2015,07/19/2014 MMR 06/28/2021,09/20/2002,09/19/1998 Meningococcal Vaccine (Menactra) 07/26/2013 [...] PHQ-2 Answer Date Recorded PHQ-2 TOTAL SCORE 3 01/16/2024 Social Connections Answer Date Recorded Frequency of [...] Outcome GA Total Labor Labor/2nd/3rd Weight Sex Type Anes PTL Jneny A1 A5 Name Clin SAB 2020 Term 37w 1d Vag Living Current Last Filed Vital Signs Vital Sign Reading Time Taken Comments Blood Pressure 114/70 10/13/2023 10:44 AM FINAL EXPENSE AGENT Pulse 85 10/13/2023 10:44 AM FINAL EXPENSE AGENT Temperature 36.7 ??C (98 ??F) 10/14/2022 1:05 PM FINAL EXPENSE AGENT Respiratory Rate 18 10/06/2022 8:41 PM FINAL EXPENSE AGENT Oxygen Saturation 98% 10/13/2023 10:44 AM FINAL EXPENSE AGENT Inhaled Oxygen Concentration - - Weight 112.9 kg (249 lb) 10/13/2023 10:44 AM FINAL EXPENSE AGENT Height 165.1 cm (5' 5) 10/14/2022 1:05 PM FINAL EXPENSE AGENT Body Mass Index 41.44 10/14/2022 1:05 PM FINAL EXPENSE AGENT Plan of Treatment Health Maintenance Due Date Last Done Comments HIV for age 15-65 2012 COVID-19 vaccine series (2022-24 season) 2023 BMI (ht and wt on same day) for age 18+ 10/14/2023 10/14/2022, 07/14/2020, 12/14/2019, Additional history exists Influenza for age 9-49 06/10/2024 3, 10/14/2022, 07/14/2020, Additional history exists Depression screening for age 12+ 01/15/2025 01/16/2024, 10/13/2023, 10/14/2022, Additional history exists Pap test for age 21-65 01/23/2027 4, 01/24/2024, 12/04/2020, Additional history exists Tetanus booster 05/11/2031 05/11/2021, 12/0 11/2019, 04/06/2010 HPV series for age 9-26 Completed 10/27/19 13, 10/27/2012, 06/26/2012, Additional history exists Hepatitis C screening for age 18-79 Completed 08/31/2016 Tdap Completed 05/11/2021, 04/06/2010 Pneumococcal series for age 6-64 Aged Out No longer eligible based on patient's age to complete this topic Procedures Procedure Name Priority Date/Time Associated Diagnosis Comments HPV THIN PREP Routine 01/24/2024 11:00 AM CDT ACUTE HEPATITIS PANEL Routine 08/31/2016 3:04 PM FINAL EXPENSE AGENT Elevated LFTs from Last 3 Months or Most Recently Relevant to Health Maintenance Results * HPV HIGH RISK (01/24/2024 11:00 AM CDT) TYPE 16 Negative Negative 01/27/2024 11:37 AM CDT [facility] TYPE 18 Negative Negative 01/27/2024 11:37 AM CDT [facility] TRA [facility] OTHER HIGH RISK TYPES Negative Negative 01/27/2024 11:37 AM CDT [facility] Other (Cervical) 01/24/2024 11:00 AM CDT 01/26/2024 10:40 AM CDT Narrative [facility] - 01/27/2024 11:37 AM CDT HPV types 16, 18, 31, 33, 35, 39, 45, 51, 52, 56, 58, 59, 66 and 68 DNA were undetectable or below the pre-set threshold. Methodology: Terri Ernie 4800 HPV Test Marely Vasquez PA-C MICROBIOLOGY Performing Organization Address City/[facility]/ZIP Co de Phone Number [facility] [address] [place] [address], * ACUTE HEPATITIS PANEL (08/31/2016 3:04 PM FINAL EXPENSE AGENT) HEPATITIS C ANTIBODY Non-Reactive Non-Reactive 08/31/2016 8:15 PM FINAL EXPENSE AGENT [facility] IGM ANTI HAV Non-Reactive Non-Reactive 08/31/20 16 8:15 PM FINAL EXPENSE AGENT [facility] HBSAG Nonreactive Nonreactive 08/31/2016 8:15 PM FINAL EXPENSE AGENT [facility] IGM ANTI HBC Non-Reactive Non-Reactive 08/31/20 16 8:15 PM FINAL EXPENSE AGENT [facility] Blood BLOOD SPECIMEN / Unknown Venipuncture / Unknown 08/31/2016 3:04 PM FINAL EXPENSE AGENT 08/31/2016 3:04 PM FINAL EXPENSE AGENT Narrative [facility] - 08/31/2016 8:15 PM FINAL EXPENSE AGENT Anti-HBc IgM not detected. Does not exclude the possibility of exposure to or infection with HBV. Billie Guadarrama DO SEND OUTS [facility] [address] [place] [id number], from Last 3 Months or Most Recently Relevant to Health Maintenance Care Teams Buckle Stapler Relationship Specialty Start Date End Date Pcp, No . PCP - General 12/28/22 Vasquez Ridley MD [address] [facility] [address] [place] [address] Rheumatology Rheumatology 10/07/16 Sanjeev Brar MD [address] [facility] [address] [place] [address] Internal Medicine 09/28/19
--- OUTSIDE RECORDS SUMMARY | 2024-05-07 15:26 | XMS_ITS | Referral Summary ---
Author Organization [facility] Address [address] [place] [address] Care Team Providers Care Oil Field Laborer Name Role Phone Billie Guadarrama Primary Care Provider [phone] Rocio Mccarthy MD Unavailable [phone] Erica Tristan MD Unavailable [phone] Encounters Date Type Department Care Team Description 02/16/2024 Telephone [facility] [email or web address] [place] [address] Rocio Mccarthy MD 02/14/2024 MyC Medical Advice [facility] [address] [place] [phone] Rocio Mccarthy MD 02/13/2024 Travel 02/13/2024 2:15 PM CDT Lab [facility] [address] [place] [phone] 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 from Last 3 Months Allergies Active Allergy [...] triage in patient 021 NO ACTIVE PROBLEMS Immunizations Name Administration Dates Next Due Comvax (HIB/HepB) 01/07/1998,1997 DTAP (<7y) 09/20/2002, 8,1997,1996 DTP-Hib 1997 DTaP, Unspecified 04/06/2010 [id number] Novel Flu 12/23/2009 HEPATITIS A (PEDS 12M-18Y) [...] Sex Assigned at Female 10/05/2020 9:54 PM BILLING REP Gender Identity Female 10/05/2020 9:54 PM BILLING REP Sexual Orientation Straight 10/05/2020 9: 54 PM BILLING REP Last Filed Vital Signs Vital Sign Reading Time Taken Comments Blood Pressure 114/57 11/18/2023 10:26 AM BILLING REP Pulse 99 11/18/2023 10:26 AM BILLING REP Temperature 36.6 ??C (97.9 ??F) 10/20/2023 7:18 AM CS T Respiratory Rate 16 10/20/2023 7:18 AM BILLING REP Oxygen Saturation 98% 11/04/2023 3:10 PM BILLING REP Inhaled Oxygen Concentration - - Weight 114.8 kg (253 lb) 10/19/2023 12:22 PM BILLING REP Height 165.1 cm (5' 5) 10/19/2023 12:22 PM BILLING REP Body Mass Index 42.1 10/19/2023 12:22 PM BILLING REP Plan of Treatment Not on file Procedures Procedure Name Priority Date/Time Associated Diagnosis [...] ANTIBODY (EXTERNAL RESULT) Routine 12/04/2020 12:00 AM BILLING REP from Last 3 Months or Most Recently Relevant to Health Maintenance Results * Thyroglobulin and Antibody Reflex (02/13/2024 2:02 PM CDT) Thyroglobulin Antibody <20 <40 IU/mL 02/14/2024 9:14 AM CDT SPECIALTY CORE/PROT/END O Blood BLOOD SPECIMEN / Unknown Venipuncture / Unknown 02/13/2024 2:02 PM CDT 02/13/2024 2:02 PM CDT Rocio Mccarthy MD LAB - BLOOD ORDER [facility] SPECIALTY CORE/PROT/ENDO [facility] Specialty Core/Prot/Endo [address] [facility] Unit Building, Room [address] * Thyroglobulin by Immunoassay (02/13/2024 2:02 PM CDT) Thyroglobulin by Immunoassay 8.3 <55.0 ng/mL 02/14/2024 10:38 AM CDT [facility] SPECIALTY CORE/PROT/END O Blood BLOOD SPECIMEN / Unknown Venipuncture / Unknown 02/13/2024 2:02 PM CDT 02/13/2024 2:02 PM CDT Narrative [facility] SPECIALTY CORE/PROT/ENDO - 02/14/2024 10:38 AM CDT Performed on the Siemens Immulite 2000 XPi at the Special Chemistry Laboratory, [facility] Rocio Mccarthy MD LAB - BLOOD ORDER [facility] UM SPECIALTY CORE/PROT/ENDO UM Specialty Core/Prot/Endo [address] [facility], [address] * (ABNORMAL) TSH (02/13/2024 2:02 PM CDT) TSH 0.01(L) 0.30 - 4.20 uIU/mL 02/14/2024 12:34 AM CDT [facility] Blood BLOOD SPECIMEN / Unknown Venipuncture / Unknown 02/13/2024 2:02 PM CDT 02/13/2024 2:02 PM CDT Rocio Mccarthy MD LAB - BLOOD ORDER L[facility]NA [facility] [place] Core Lab [address] [facility] [address] Building, [address] [id number] * (ABNORMAL) Thyroid peroxidase antibody (02/13/2024 2:02 PM CDT) Thyroid Peroxidase Antibody 927(H) <35 IU/mL 02/14/2024 9:14 AM CDT SPECIALTY CORE/PROT/ENDO Blood BLOOD SPECIMEN / Unknown Venipuncture / Unknown 02/13/2024 2:02 PM CDT 02/13/2024 2:02 PM CDT Rocio Mccarthy MD LAB - BLOOD ORDER [place] SPECIALTY CORE/PROT/ENDO Specialty Core/Prot/Endo [address] [facility], [address] * (ABNORMAL) T4, free (02/13/2024 2:02 PM CDT) Free T4 2.12(H) 0.90 - 1.70 ng/dL 02/14/2024 12:34 AM CDT LABORATORY Blood BLOOD SPECIMEN / Unknown Venipuncture / Unknown 02/13/2024 2:02 PM CDT 02/13/2024 2:02 PM CDT Rocio Mccarthy MD LAB - BLOOD ORDER [place] LABORATORY [facility] [place] Core Lab [address] [facility], [address] * T3 reverse (02/13/2024 2:02 PM CDT) T3, Reverse ng/dL 18.1 9.0 - 27.0 ng/dL 02/16/2024 7:30 AM CDT [employer] Comment: INTERPRETIVE INFORMATION: Triiodothyronine, Reverse - LC-MS/MS This test was developed and its performance characteristics determined by [employer] [employer] It has not been cleared or approved by the US Food and Drug Administration. This test was performed in a CLIA certified laboratory and is intended for clinical purposes. Performed By: [facility] [address] [place] [address] Seam Hammerer: cFo Rosa MD, PhD CLIA Number: [id number] Blood BLOOD SPECIMEN / Unknown Venipuncture / Unknown 02/13/2024 2:02 PM CDT 02/13/2024 2:02 PM CDT Rocio Mccarthy MD LAB - BLOOD ORDER LORNA Performing Organization Address City/[facility]/ZIP Co de Phone Number [facility] [address] [place] [address], [facility] [phone] * Chlamydia trachomatis/Neisseria gonorrhoeae by PCR (05/25/2021 6:45 PM CDT) [facility] Chlamydia Trachomatis Negative Negative 05/26/2021 11:22 AM CDT [facility] Comment: Negative for C. trachomatis rRNA by velvet steamer mediated amplification. A negative result by velvet steamer mediated amplification does not preclude the presence of infection because results are dependent on proper and adequate collection, absence of inhibitors and sufficient rRNA to be detected. Neisseria gonorrhoeae Negative Negative 05/26/2021 11:22 AM CDT [facility] Comment:Negative for N. gono rrhoeae rRNA by velvet steamer mediated amplification. A negative result by velvet steamer mediated amplification does not preclude the presence of C. trachomatis infection because results are dependent on proper and adequate collection, absence of inhibitors and sufficient rRNA to be detected. Swab CERVIX UTERI STRUCTURE / Unknown Non-blood Collection / Unknown 05/25/2021 6:45 PM CDT 05/25/2021 7:17 PM CDT Jaimie Clinton MD LAB - MICRO GEN ERAL ORDERABLES [facility] Infectious Diseases Diagnostic Lab (IDDL) [address] [facility], [address] [place] [address], [place] [phone] * HIV-1 Antibody (External Result) (12/04/2020 12:00 AM BILLING REP) [facility] HIV 1&2 Antibody (External) Negative Nonreactive EXTERNAL LAB 12/04/2020 Patient Reported LAB - HIM EXTERNAL R ESULT EXTERNAL LAB External Lab from Last 3 Months or Most Recently Relevant to Health Maintenance Advance Directives For more information, please contact: [phone] * Full Code (Latest Code Status on [...] patie nt/ legal decision maker Care Teams Oil Field Laborer Relationship Specialty Start Date End Date Billie Guadarrama PCP - General 12/17/19 Rocio Mccarthy MD [address] [facility] [address] [place] [address] Assigned Endocrinology Provider 04/24/22 Erica Tristan MD [address] [facility] [address] [place] [address] Assigned OBGYN Provider 08/06/23
--- OUTSIDE RECORDS SUMMARY | 2024-05-07 15:26 | XMS_ITS | Encounter Summary ---
Author Organization [facility] Address [address] [place] [address]. [place] [address] Care Team Providers Care Director Social Welfare Name Role Phone Billie Guadarrama Primary Care Provider Rocio Mccarthy MD Unavailable [phone] Erica Tristan MD Unavailable [phone] Encounter Details Date Type Department Care Team (Late st Contact Info) Description 02/16/2024 Telephone [facility] [address] [facility] [address] [place] [address] Rocio Mccarthy MD [address] [place] [address] Social History Tobacco Use Types [...] Sex Assigned at Female 10/05/2020 9:54 PM COMPOSITE ASSEMBLER Gender Identity Female 10/05/2020 9:54 PM COMPOSITE ASSEMBLER Sexual Orientation Straight 10/05/2020 9: 54 PM COMPOSITE ASSEMBLER documented as of this encounter Miscellaneous Notes * Telephone Encounter - Loren Gillespie RN - 02/16/2024 9:02 AM CDT My chart sent. * Telephone Encounter - Rocio Mccarthy MD - 02/16/2024 8:48 AM CDT Latest Ref Rng 02/13/2024 2:02 PM ENDO THYROID LABS-[facility] TSH 0.30 - 4.20 uIU/mL 0.01 (L) Free T3 2.0 - 4.4 pg/mL T3, Reverse ng/dL 9.0 - 27.0 ng/dL 18.1 FREE T4 0.90 - 1.70 ng/dL 2.12 (H) Currently taking levothyroxine to 200 mcg/day (10/18/2023) ( dose was increased from 175 mcg at that time) Based on 02/2024 labs-- recommend to decrease dose to 188 mcg/day (100+88) Labs few days prior to next visit. 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
--- OUTSIDE RECORDS SUMMARY | 2024-05-07 15:27 | XMS_ITS | Encounter Summary ---
Author Organization [place] Address [address] [place] [address]. 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 Congratulations! Thyroid labs are in acceptable range (TSH does not need to be less than 2.5 at this time as she hasalready delivered) Continue current dose of levothyroxine. Recheck labs in 6-[address] lab orders * Telephone Encounter - Jina Harrell RN - 12/21/2023 7:50 AM CDT Labs in process. * Telephone Encounter - Jina Harrell RN - 12/20/2023 9:40 AM CDT Pt has labs on 12/19 * Telephone Encounter - Rocio Mccarthy MD - 12/20/2023 9:28 AM CDT Do we have results for thyroid labs from 12/2023? I don't see any in chart. If no,please get labs done. TSH Date Value Ref Range Status 10/11/2023 4.51 (H) 0.30 - 4.20 uIU/mL Final 06/21/2022 1.13 0.40 - 4.00 mU/L Final 05/21/2020 0.48 0.40 - 4.00 mU/L Final * Telephone Encounter - Jina Harrell RN - 12/16/2023 8:29 AM CARTOGRAPHY TEACHER KIM:10/18/23: Plan: Discussed diagnosis, pathophysiology, management and treatment [...] close follow-up. Follow-up with endocrinology after delivery. OGRAPHY TEACHER documented in this encounter Plan of Treatment Not on file documented as of this encounter Results * (ABNORMAL) T4, free (02/13/2024 2:02 PM CDT) Free T4 2.12(H) 0.90 - 1.70 ng/dL 02/14/2024 12:34 AM CDT [facility] Blood BLOOD SPECIMEN / Unknown Venipuncture / Unknown 02/13/2024 2:02 PM CDT 02/13/2024 2:02 PM CDT Rocio Mccarthy MD LAB - BLOOD ORDER LOR[facility] Core Lab [address] [facility], [address] [place] [address] * (ABNORMAL) TSH (02/13/2024 2:02 PM CDT) TSH 0.01(L) 0.30 - 4.20 uIU/mL 02/14/2024 12:34 AM CDT [facility] Blood BLOOD SPECIMEN / Unknown Venipuncture / Unknown 02/13/2024 2:02 PM CDT 02/13/2024 2:02 PM CDT Rocio Mccarthy MD LAB - BLOOD ORDER LORNA [facility] Lab [address] [facility] [address] [facility], [address] [place] [address] documented in this encounter Visit Diagnoses Diagnosis 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
--- OUTSIDE RECORDS SUMMARY | 2024-05-07 15:27 | XMS_ITS | Encounter Summary ---
Author Organization [facility] Address [address] [place] [address]. [place] [address] Care Team Providers Care Certified Personal Finance Counselor Name Role Phone Billie Guadarrama Primary Care Provider [phone] Rocio Mccarthy MD Unavailable [phone] Erica Tristan MD Unavailable Encounter Details Date Type Department Care Team (Late st Contact Info) Description 08/24/2023 MyC Medical Advice [facility] [address] [facility] [address] [place] [address] Rocio Mccarthy MD [address] [place] [address] Social History Tobacco Use Types [...] Sex Assigned at Female 10/05/2020 9:54 PM TOLL GATE KEEPER Gender Identity Female 10/05/2020 9:54 PM TOLL GATE KEEPER Sexual Orientation Straight 10/05/2020 9: 54 PM TOLL GATE KEEPER documented as of this encounter Miscellaneous Notes * Telephone Encounter - Rocio Mccarthy MD - 08/26/2023 10:48 AM TOLL GATE KEEPER Latest Ref Rng 08/23/2023 1:26 PM ENDO [...] 1 week after that to discuss results. GATE KEEPER * Telephone Encounter - Ramya Lugo RN - 08/24/2023 11:51 AM CST In response to lab comments 08/23/23: Thyroid labs are in acceptable range. How many weeks are you so far? How are you feeling? GATE KEEPER documented in this encounter Plan of Treatment Not on file documented as of this encounter Visit Diagnoses Not on filedocumented in this encounter Additional Health Concerns Assessment Noted Time PHQ-9 Depression Total Score: 11 023 10:04 AM CDT documented as of this encounter Care Teams Certified Personal Finance Counselor Relationship Specialty Start Date End Date Billie Guadarrama PCP - General 12/17/19 Rocio Mccarthy MD [address] [facility] [address] [place] [address] Assigned Endocrinology Provider 04/24/22 Erica Tristan MD [address] [address] Assigned OBGYN Provider 08/06/23 documented as of this encounter
--- OUTSIDE RECORDS SUMMARY | 2024-05-07 15:27 | XMS_ITS | Encounter Summary ---
Author Organization [place] Address [address] [place] [address]. [place] [address] Care Team Providers Care Ferryboat Pilot Name Role Phone Billie Guadarrama Primary Care Provider Rocio Mccarthy MD Unavailable [phone] Erica Tristan MD Unavailable [phone] Encounter Details Date Type Department Care Team (Late st Contact Info) Description 10/18/2023 MyC Medical Advice [facility] [address] [facility] [address] [place] [address] Chelita Harrell, [facility] Social History Tobacco Use Types Packs/Day Years [...] Sex Assigned at Female 10/05/2020 9:54 PM JAVA SQL DEVELOPER Gender Identity Female 10/05/2020 9:54 PM JAVA SQL DEVELOPER Sexual Orientation Straight 10/05/2020 9: 54 PM JAVA SQL DEVELOPER documented as of this encounter Plan of Treatment Not on file documented as of this encounter Visit Diagnoses Not on filedocumented in this encounter Additional Health Concerns Assessment Noted Time PHQ-9 Depression Total Score: 11 023 10:04 AM CDT documented as of this encounter Care Teams Ferryboat Pilot Relationship Specialty Start Date End Date Billie Guadarrama PCP - General 12/17/19 Rocio Mccarthy MD [address] [place], [place] [address] Assigned Endocrinology Provider 04/24/22 Erica Tristan MD [address] [place], [place] [address] Assigned OBGYN Provider 08/06/23 documented as of this encounter
--- OUTSIDE RECORDS SUMMARY | 2024-05-07 15:27 | XMS_ITS | Encounter Summary ---
Author Organization [facility] Address [address] [place] [address]. [place] [address] Care Team Providers Care Locomotive Crane Engineer Name Role Phone Billie Guadarrama Primary Care Provider Rocio Mccarthy MD Unavailable Anthony Shaffer MD Unavailable [phone] Rocio Mccarthy MD Unavailable Erica Tristan MD Unavailable [phone] Encounter Details Date Type Department Care Team (Late st Contact Info) Description 08/01/2020 MyC Medical Advice [facility] [address] [place] [address] Rocio Mccarthy MD [address] [place] [address] Social History Tobacco Use Types [...] Binge Drinking Not on file 070 10/2019 Sex and Gender Information Value Date Recorded Sex Assigned at Female 10/05/2020 9:54 PM CHARGE GANG WEIGHER Gender Identity Female 10/05/2020 9:54 PM CHARGE GANG WEIGHER Sexual Orientation Straight 10/05/2020 9: 54 PM CHARGE GANG WEIGHER documented as of this encounter Miscellaneous Notes * Telephone Encounter - Angelic Cavazos RN - 08/01/2020 1:21 PM CDT Please see MyChart message, does patient need to see derm? Please advise, Thank you. documented in this encounter Plan of Treatment Not on file documented as of this encounter Visit Diagnoses Not on filedocumented in this encounter Care Teams Locomotive Crane Engineer Relationship Specialty Start Date End Date SelinBillie davis PCP - General 12/17/19 Rocio Mccarthy MD [address] [place] [address] Assigned Endocrinology Provider 08/01/20 11/28/21 Anthony Shaffer MD [address] [place] [address] Assigned OBGYN Provider 05/10/21 Rocio Mccarthy MD [address] [place] [address] Assigned Endocrinology Provider 04/24/22 Erica Tristan MD [address] [place], [place] [address] Assigned OBGYN Provider 08/06/23 documented as of this encounter
--- OUTSIDE RECORDS SUMMARY | 2024-05-07 15:27 | XMS_ITS | Encounter Summary ---
Author Organization [place] Address [address] [place] [address]. [place] [address] Care Team Providers Care Flask Carrier Name Role Phone Billie Guadarrama Primary Care Provider Rocio Mccarthy MD Unavailable [phone] Erica Tristan MD Unavailable [phone] Encounter Details Date Type Department Care Team (Late st Contact Info) Description 08/15/[address] [facility] [address] [facility] [address] [place] [address] Rocio Mccarthy MD [address] [place] [address] Social History Tobacco Use Types [...] Sex Assigned at Female 10/05/2020 9:54 PM VACUUM EVAPORATION OPERATOR Gender Identity Female 10/05/2020 9:54 PM VACUUM EVAPORATION OPERATOR Sexual Orientation Straight 10/05/2020 9: 54 PM VACUUM EVAPORATION OPERATOR documented as of this encounter Miscellaneous Notes * Telephone Encounter - Jina Harrell RN - 08/15/2023 9:07 AM VACUUM EVAPORATION OPERATOR Recommend close follow-up during --recommend lab every 2-3 months during or sooner based on dose adjustment given history of fluctuating labs she needs close follow-up. Follow-up with endocrinology after delivery. UM EVAPORATION OPERATOR documented in this encounter Plan of Treatment Not on file documented as of this encounter Visit Diagnoses Not on filedocumented in this encounter Additional Health Concerns Assessment Noted Time PHQ-9 Depression Total Score: 11 023 10:04 AM CDT documented as of this encounter Care Teams Flask Carrier Relationship Specialty Start Date End Date Billie Guadarrama PCP - General 12/17/19 Rocio Mccarthy MD [address] [place], [place] [address] Assigned Endocrinology Provider 04/24/22 Erica Tristan MD [address] [place], [place] [address] Assigned OBGYN Provider 08/06/23 documented as of this encounter
--- OUTSIDE RECORDS SUMMARY | 2024-05-07 15:27 | XMS_ITS | Encounter Summary ---
Author Organization [place] Address [address] [place] [address]. 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 I put her down for 06/21 at 10:30 for a video visit. Maritza Harrell CMA [facility] [phone] * Telephone Encounter - Chelita Harrell CMA - 06/08/2023 8:50 AM CDT Message sent via Social Tools. Maritza Harrell CMA [facility] [phone] * Telephone Encounter - Nahed Woodruff - 06/06/2023 11:43 AM CDT .- lmtcb x2 * Telephone Encounter - Janice Woodruff - 06/02/2023 11:59 AM CDT 06.02- lmtcb x1 to schedule with Dr. Mccarthy * Telephone Encounter - Rocio Mccarthy MD - 05/31/2023 2:02 PM CDT Ok for free t3. 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
--- OUTSIDE RECORDS SUMMARY | 2024-05-07 15:27 | XMS_ITS | Encounter Summary ---
Author Organization [place] Address [address] [place] [address]. 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 [...] Assigned at Female 10/05/2020 9:54 PM RADIO INSTALLER Gender Identity Female 10/05/2020 9:54 PM RADIO INSTALLER Sexual Orientation Straight 10/05/2020 9: 54 PM RADIO INSTALLER documented as of this encounter Plan of Treatment Not on file documented as of this encounter Results * (ABNORMAL) T3 Free (11/18/2021 12:41 PM RADIO INSTALLER) T3 Free 1.5(L) 2.3 - 4.2 pg/mL 11/18/2021 6:34 PM RADIO INSTALLER [facility] Blood VENOUS BLOOD / Unknown Venipuncture / Unknown 11/18/2021 12:41 PM RADIO INSTALLER 11/18/2021 12:41 PM RADIO INSTALLER Rocio Mccarthy MD LAB - BLOOD ORDER [facility] [place] [facility] [address] [place] [address], [address] [place] [address], [facility] [phone] * (ABNORMAL) T4 free (11/18/2021 12:41 PM RADIO INSTALLER) Free T4 0.64(L) 0.76 - 1.46 ng/dL 11/18/2021 7:16 PM RADIO INSTALLER [facility] Blood VENOUS BLOOD / Unknown Venipuncture / Unknown 11/18/2021 12:41 PM RADIO INSTALLER 11/18/2021 12:41 PM RADIO INSTALLER Rocio Mccarthy MD LAB - BLOOD ORDER [facility] [address] Lab (no room number, 1st floor of clinic) [place] [address], [place] [phone] * (ABNORMAL) TSH (11/18/2021 12:41 PM RADIO INSTALLER) TSH 104.91(H) 0.40 - 4.00 mU/L 11/18/2021 8:05 PM RADIO INSTALLER [facility] Blood VENOUS BLOOD / Unknown Venipuncture / Unknown 11/18/2021 12:41 PM RADIO INSTALLER 11/18/2021 12:41 PM RADIO INSTALLER Rocio Mccarthy MD LAB - BLOOD ORDER [facility] [address] Lab (no room number, 1st floor of clinic) [place] [address], [facility] [phone] * Thyroglobulin and Antibody Reflex (11/18/2021 12:41 PM RADIO INSTALLER) Thyroglobulin Antibody <20 <40 IU/mL 11/19/2021 1:39 PM RADIO INSTALLER [facility] C[facility]/PROT/END O Blood VENOUS BLOOD / Unknown Venipuncture / Unknown 11/18/2021 12:41 PM RADIO INSTALLER 11/18/2021 12:41 PM RADIO INSTALLER Rocio Mccarthy MD LAB - BLOOD ORDER [facility]/PROT/ENDO [facility] Core/Prot/Endo [address] [facility], [address] [place] [address], [facility] [phone] * T3 reverse (11/18/2021 12:41 PM RADIO INSTALLER) T3, Reverse ng/dL 10.3 9.0 - 27.0 ng/dL 11/23/2021 4:48 PM RADIO INSTALLER [facility] Comment: INTERPRETIVE INFORMATION: Triiodothyronine, Reverse - LC-MS/MS This test was developed and its performance characteristics determined by [facility]. It has not been cleared or approved by the [place] Food and Drug Administration. This test was performed in a CLIA certified laboratory and is intended for clinical purposes. 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
--- OUTSIDE RECORDS SUMMARY | 2024-05-07 15:27 | XMS_ITS | Encounter Summary ---
Author Organization [facility] Address [address] [place] [address]. [place] [address] Care Team Providers Care Claim Clinician Name Role Phone Billie Guadarrama Primary Care Provider [phone] Rocio Mccarthy MD Unavailable [phone] Erica Tristan MD Unavailable [phone] Reason for Visit * Auth/Cert (Routine) Specialty Diagnoses / Procedures Referred By Contac t Referred To Contact scene shifter Diagnoses Indication for care in labor or delivery Indication for care in labor or delivery [facility] [address] [place] [address] Referral ID Status Reason Start Date Expiration Date Visits Re quested Visits Authorized [id number] 1 1 Encounter Details Date Type Department Care Team (Late st Contact Info) Description 10/19/2023 Hospital Encounter [facility] [address] [place] [address] Simon Marcial MD [address] [facility] [address] [place], [place] [address] Social History Tobacco Use Types Packs/Day Years [...] Assigned at Female 10/05/2020 9:54 PM SUPERVISOR TRAVEL TRAILER Gender Identity Female 10/05/2020 9:54 PM SUPERVISOR TRAVEL TRAILER Sexual Orientation Straight 10/05/2020 9: 54 PM SUPERVISOR TRAVEL TRAILER documented as of this encounter H&P Notes * Lisa Matthew MD - 10/19/2023 5:30 PM CST Admission H and P: S: Pt is a transfer to [facility] from [facility] at 32+2/7 wks. She has a history of PTC in prior at 32 weeks without delivery until term. Today she started to note increase in contractions. Cervix was found to be 3 cm at [facility]. Theygave her BMZ, started nifedipine and Magnesium Sulfate and transferred her to [facility] for antepartummanagement. She has history of [...] profolaxis. Continue home medications. Lisa Matthew MD RVISOR TRAVEL TRAILER documented in this encounter Plan of Treatment Not on file documented as of this encounter Visit Diagnoses Not on filedocumented in this encounter Additional Health Concerns Assessment Noted Time PHQ-9 Depression Total Score: 11 023 10:04 AM CDT documented as of this encounter Care Teams Claim Clinician Relationship Specialty Start Date End Date Billie Guadarrama PCP - General 12/17/19 Rocio Mccarthy MD [address] [place] [address] Assigned Endocrinology Provider 04/24/22 Erica Tristan MD [address] [facility] 400 [place] [address] Assigned OBGYN Provider 08/06/23 documented as of this encounter
--- OUTSIDE RECORDS SUMMARY | 2024-05-07 15:27 | XMS_ITS | Encounter Summary ---
Author Organization [place] Address [address] [place] [address]. [place] [address] Care Team Providers Care High School Drafting Teacher Name Role Phone Billie Guadarrama Primary Care Provider Rocio Mccarthy MD Unavailable [phone] Erica Tristan MD Unavailable [phone] Encounter Details Date Type Department Care Team (Late st Contact Info) Description 05/31/2022 MyC Medical Advice [facility] [address] [facility] [address] [place] [address] Rocio Mccarthy MD [address] [place] [address] Social History Tobacco Use Types [...] Sex Assigned at Female 10/05/2020 9:54 PM DRILL OPERATOR PNEUMATIC Gender Identity Female 10/05/2020 9:54 PM DRILL OPERATOR PNEUMATIC Sexual Orientation Straight 10/05/2020 9: 54 PM DRILL OPERATOR PNEUMATIC documented as of this encounter Miscellaneous Notes [...] on filedocumented in this encounter Care Teams High School Drafting Teacher Relationship Specialty Start Date End Date Billie Guadarrama PCP - General 12/17/19 Rocio Mccarthy MD [address] [place] [address] Assigned Endocrinology Provider 04/24/22 Erica Tristan MD [address] [place] [address] Assigned OBGYN Provider 08/06/23 documented as of this encounter
--- OUTSIDE RECORDS SUMMARY | 2024-05-07 15:27 | XMS_ITS | Encounter Summary ---
Author Organization [place] Address [address] [place] [address]. [place] [address] Care Team Providers Care Tech Ed/Woodshop Teacher Name Role Phone Billie Guadarrama Primary Care Provider Anthony Shaffer MD Unavailable [phone] Rocio Mccarthy MD Unavailable [phone] Erica Tristan MD Unavailable [phone] Encounter Details Date Type Department Care Team (Late st Contact Info) Description 04/19/2022 MyC Medical Advice [address] [id number] Jina Harrell V, RN Social History Tobacco [...] Sex Assigned at Female 10/05/2020 9:54 PM FLOWER ARRANGER Gender Identity Female 10/05/2020 9:54 PM FLOWER ARRANGER Sexual Orientation Straight 10/05/2020 9: 54 PM FLOWER ARRANGER COVID-19 Exposure Response Date Recorded In the last 10 days, have niru u been in contact with someone who was confirmed or suspected to have Coronavirus/COVID-19? No / Unsure 04/05/2022 11:57 AM CDT documented as of this encounter Plan of Treatment Not on file documented as of this encounter Visit Diagnoses Not on filedocumented in this encounter Care Teams Tech Ed/Woodshop Teacher Relationship Specialty Start Date End Date Billie Guadarrama PCP - General 12/17/19 Anthony Shaffer MD [address] [place], [place] [address] Assigned OBGYN Provider 05/10/21 Rocio Mccarthy MD [address] [place], [place] [address] Assigned Endocrinology Provider 04/24/22 Erica Tristan MD [address] [place], [place] [address] Assigned OBGYN Provider 08/06/23 documented as of this encounter
--- OUTSIDE RECORDS SUMMARY | 2024-05-07 15:27 | XMS_ITS | Encounter Summary ---
Author Organization [place] Address [address] [place] [address] Care Team Providers Care Chief Of Staff Doctor Name Role Phone Billie Guadarrama Primary Care Provider [phone] Rocio Mccarthy MD Unavailable [phone] Erica Tristan MD Unavailable [phone] Encounter Details Date Type Department Care Team (Late st Contact Info) Description 10/28/2023 [facility] Medical Advice [facility] [address] [place], [place] [address] Lisa Larose, RN Social History Tobacco Use [...] Sex Assigned at Female 10/05/2020 9:54 PM AEROSPACE STRESS ENGINEER Gender Identity Female 10/05/2020 9:54 PM AEROSPACE STRESS ENGINEER Sexual Orientation Straight 10/05/2020 9: 54 PM AEROSPACE STRESS ENGINEER documented as of this encounter Plan of Treatment Not on file documented as of this encounter Visit Diagnoses Not on filedocumented in this encounter Additional Health Concerns Assessment Noted Time PHQ-9 Depression Total Score: 11 023 10:04 AM CDT documented as of this encounter Care Teams Chief Of Staff Doctor Relationship Specialty Start Date End Date Billie Guadarrama PCP - General 12/17/19 Rocio Mccarthy MD [address] [facility] [address] [place], [place] [address] Assigned Endocrinology Provider 04/24/22 Erica Tristan MD [address] [facility] [address] [place], [place] [address] Assigned OBGYN Provider 08/06/23 documented as of this encounter
--- OUTSIDE RECORDS SUMMARY | 2024-05-07 15:27 | XMS_ITS | Encounter Summary ---
Author Organization [place] Address [address] [place] [address]. 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 [...] Sex Assigned at Female 10/05/2020 9:54 PM FULFILLMENT ASSOCIATE Gender Identity Female 10/05/2020 9:54 PM FULFILLMENT ASSOCIATE Sexual Orientation Straight 10/05/2020 9: 54 PM FULFILLMENT ASSOCIATE COVID-19 Exposure Response Date Recorded In [...] Primary documented in this encounter Care Teams Overnight Caregiver Relationship Specialty Start Date End Date Billie Guadarrama PCP - General 12/17/19 Rocio Mccarthy MD [address] [place], [place] [address] Assigned Endocrinology Provider 04/24/22 Erica Tristan MD [address] [place], [place] [address] Assigned OBGYN Provider 08/06/23 documented as of this encounter
--- OUTSIDE RECORDS SUMMARY | 2024-05-07 15:27 | XMS_ITS | Encounter Summary ---
Author Organization [place] Address [address] [place] [address]. [place] [address] Care Team Providers Care Dish Maker Name Role Phone Billie Guadarrama Primary Care Provider Rocio Mccarthy MD Unavailable [phone] Anthony Shaffer MD Unavailable [phone] Rocio Mccarthy MD Unavailable [phone] Erica Tristan MD Unavailable [phone] Encounter Details Date Type Department Care Team (Late st Contact Info) Description 06/08/2021 MyC Medical Advice [facility] [address] [facility] [address] [place] [address] Chelita Harrell, [facility] Social History Tobacco Use Types Packs/Day Years [...] Sex Assigned at Female 10/05/2020 9:54 PM STAFF ELECTRICAL ENGINEER Gender Identity Female 10/05/2020 9:54 PM STAFF ELECTRICAL ENGINEER Sexual Orientation Straight 10/05/2020 9: 54 PM STAFF ELECTRICAL ENGINEER COVID-19 Exposure Response Date Recorded In the last month, have you been in contact with someone who was confirmed or suspected to have Coronavirus / COVID-19? No / Unsure 06/04/2021 4:39 PM CDT documented as of this encounter Plan of Treatment Not on file documented as of this encounter Visit Diagnoses Not on filedocumented in this encounter Care Teams Dish Maker Relationship Specialty Start Date End Date Billie Guadarrama PCP - General 12/17/19 Rocio Mccarthy MD [address] [place], [place] [address] Assigned Endocrinology Provider 08/01/20 11/28/21 Anthony Shaffer MD [address] [place], [place] [address] Assigned OBGYN Provider 05/10/21 Rocio Mccarthy MD [address] [place], [place] [address] Assigned Endocrinology Provider 04/24/22 Erica Tristan MD [address] [place], [place] [address] Assigned OBGYN Provider 08/06/23 documented as of this encounter
--- OUTSIDE RECORDS SUMMARY | 2024-05-07 15:27 | XMS_ITS | Encounter Summary ---
Author Organization [place] Address [address] [place] [address]. [place] [address] Care Team Providers Care Bioinformatics Engineer Name Role Phone Billie Guadarrama Primary Care Provider Rocio Mccarthy MD Unavailable [phone] Erica Tristan MD Unavailable [phone] Encounter Details Date Type Department Care Team (Late st Contact Info) Description 03/23/2023 MyC Medical Advice [facility] [address] [facility] [address] [place] [address] Rocio Mccarthy MD [address] [place] [address] Social History Tobacco Use Types [...] Sex Assigned at Female 10/05/2020 9:54 PM RESTAURANT AREA MANAGER Gender Identity Female 10/05/2020 9:54 PM RESTAURANT AREA MANAGER Sexual Orientation Straight 10/05/2020 9: 54 PM RESTAURANT AREA MANAGER documented as of this encounter Miscellaneous [...] on filedocumented in this encounter Care Teams Bioinformatics Engineer Relationship Specialty Start Date End Date Billie Guadarrama PCP - General 12/17/19 Rocio Mccarthy MD [address] [place], [place] [address] Assigned Endocrinology Provider 04/24/22 Erica Tristan MD [address] [place], [place] [address] Assigned OBGYN Provider 08/06/23 documented as of this encounter
--- OUTSIDE RECORDS SUMMARY | 2024-05-07 15:27 | XMS_ITS | Encounter Summary ---
Author Organization [place] Address [address] [place] [address]. [place] [address] Care Team Providers Care Cook Dinner Name Role Phone Billie Guadarrama Primary Care Provider Rocio Mccarthy MD Unavailable [phone] Erica Tristan MD Unavailable [phone] Encounter Details Date Type Department Care Team (Late st Contact Info) Description 10/09/2023 MyC Medical Advice [facility] [address] [facility] [address] [place] [address] Rocio Mccarthy MD [address] [place] [address] Social [...] Sex Assigned at Female 10/05/2020 9:54 PM ASSISTANT PROFESSOR OF EDUCATION Gender Identity Female 10/05/2020 9:54 PM ASSISTANT PROFESSOR OF EDUCATION Sexual Orientation Straight 10/05/2020 9: 54 PM ASSISTANT PROFESSOR OF EDUCATION documented as of this encounter Miscellaneous Notes * Telephone Encounter - Nahed Woodruff - 10/12/2023 10:36 AM CST Appointment scheduled. STANT PROFESSOR OF EDUCATION * Telephone Encounter - Rocio Mccarthy MD - 10/11/2023 10:51 AM ASSISTANT PROFESSOR OF EDUCATION Ok for ANGÉLICA at this time. Please [...] if you need any help with scheduling. STANT PROFESSOR OF EDUCATION documented in this encounter Plan of Treatment Not on file documented as of this encounter Visit Diagnoses Not on filedocumented in this encounter Additional Health Concerns Assessment Noted Time PHQ-9 Depression Total Score: 11 06/21/ 023 10:04 AM CDT documented as of this encounter Care Teams Cook Dinner Relationship Specialty Start Date End Date Billie Guadarrama PCP - General 12/17/19 Rocio Mccarthy MD [address] [place] [address] Assigned Endocrinology Provider 04/24/22 Erica Tristan MD [address] [place], [place] [address] Assigned OBGYN Provider 08/06/23 documented as of this encounter
--- OUTSIDE RECORDS SUMMARY | 2024-05-07 15:27 | XMS_ITS | Encounter Summary ---
Author Organization [facility] Address [address] [place] [address]. [place] [address] Care Team Providers Care Building Maintenance Repairer Name Role Phone Billie Guadarrama Primary Care Provider [phone] Rocio Mccarthy MD Unavailable [phone] Anthony Shaffer MD Unavailable Rocio Mccarthy MD Unavailable [phone] Erica Tristan MD Unavailable [phone] Reason for Visit * Reason Onset Date Comments MyChart Communication 10/05/2020 Encounter Details Date Type Department Care Team (Latest Contact Info) Description 10/05/[address] [facility] [address] [facility] [place] [address] Rocio Mccarthy MD [address] [place] [address] MyChart Communication Social History Tobacco [...] Sex Assigned at Female 10/05/2020 9:54 PM REHAB MANAGER Gender Identity Female 10/05/2020 9:54 PM REHAB MANAGER Sexual Orientation Straight 10/05/2020 9: 54 PM REHAB MANAGER COVID-19 Exposure Response Date Recorded In the last month, have you been in contact with someone who was confirmed or suspected to have Coronavirus / COVID-19? No / Unsure 10/08/2020 8:54 AM REHAB MANAGER documented as of this encounter Miscellaneous Notes * Telephone Encounter - Janis Kendrick RN - 10/06/2020 3:51 PM CST My chart message sent by patient. My chart message sent to patient. B MANAGER documented in this encounter Plan of Treatment Not on file documented as of this encounter Visit Diagnoses Not on filedocumented in this encounter Care Teams Building Maintenance Repairer Relationship Specialty Start Date End Date Billie Guadarrama PCP - General 12/17/19 Rocio Mccarthy MD [address] [facility] [address] [place], [place] [id number] Assigned Endocrinology Provider 08/01/20 11/28/21 Anthony Shaffer MD [address] [place] [id number] Assigned OBGYN Provider 05/10/21 Rocio Mccarthy MD [address] [place], [place] [id number] Assigned Endocrinology Provider 04/24/22 Erica Tristan MD [address] [place], [place] [id number] Assigned OBGYN Provider 08/06/23 documented as of this encounter
--- OUTSIDE RECORDS SUMMARY | 2024-05-07 15:27 | XMS_ITS | Encounter Summary ---
Author Organization [facility] Address [address] [place] [address]. [place] [address] Care Team Providers Care Gunner'S Mate Name Role Phone Billie Guadarrama Primary Care Provider Rocio Mccarthy MD Unavailable [phone] Erica Tristan MD Unavailable [phone] Reason for Visit * Reason Onset Date Comments Call Back 09/12/2023 Encounter Details Date Type Department Care Team (Late st Contact Info) Description 09/12/2023 Telephone [facility] [address] [facility] [address] [place] [address] Rocio Mccarthy MD [address] [place] [address] Call Back Social History Tobacco [...] Sex Assigned at Female 10/05/2020 9:54 PM BABY REGISTRY SALES CONSULTANT Gender Identity Female 10/05/2020 9:54 PM BABY REGISTRY SALES CONSULTANT Sexual Orientation Straight 10/05/2020 9: 54 PM BABY REGISTRY SALES CONSULTANT documented as of this encounter Miscellaneous Notes * Telephone Encounter - Rocio Mccarthy MD - 09/15/2023 3:33 PM BABY REGISTRY SALES CONSULTANT Please see telephone encounter 09/15/2023 REGISTRY SALES CONSULTANT * Telephone Encounter - Chelita Hahn - 09/12/2023 2:56 PM C[facility] Call Center Phone Message May a detailed message be left on voicemail: yes Reason for Call: Other: PARTS BACK COUNTER MAN would like to know normal references ranges and values patient's care is being based off of. Patient is in 2nd trimester of . When calling , please ask for triage nurse. Action Taken: Other: endo Travel Screening: Not Applicable REGISTRY SALES CONSULTANT documented in this encounter Plan of Treatment Not on file documented as of this encounter Visit Diagnoses Not on filedocumented in this encounter Additional Health Concerns Assessment Noted Time PHQ-9 Depression Total Score: 11 023 10:04 AM CDT documented as of this encounter Care Teams Gunner'S Mate Relationship Specialty Start Date End Date Billie Guadarrama PCP - General 12/17/19 Rocio Mccarthy MD [address] [place], [place] [address] Assigned Endocrinology Provider 04/24/22 Erica Tristan MD [address] [place], [place] [address] Assigned OBGYN Provider 08/06/23 documented as of this encounter
--- OUTSIDE RECORDS SUMMARY | 2024-05-07 15:27 | XMS_ITS | Encounter Summary ---
Author Organization [facility] Address [address] [place] [address]. [place] [address] Care Team Providers Care Greenhouse Instructor Name Role Phone Billie Guadarrama Primary Care Provider Rocio Mccarthy MD Unavailable [phone] Erica Tristan MD Unavailable [phone] Encounter Details Date Type Department Care Team (Late st Contact Info) Description 09/15/2023 MyC Medical Advice [facility] [address] [facility] [address] [place] [address] Rocio Mccarthy MD [address] [place] [address] Social History Tobacco Use Types [...] Sex Assigned at Female 10/05/2020 9:54 PM ORTHODONTIC LABORATORY TECHNICIAN Gender Identity Female 10/05/2020 9:54 PM ORTHODONTIC LABORATORY TECHNICIAN Sexual Orientation Straight 10/05/2020 9: 54 PM ORTHODONTIC LABORATORY TECHNICIAN documented as of this encounter Miscellaneous Notes * Telephone Encounter - Rocio Mccarthy MD - 09/15/2023 3:30 PM ORTHODONTIC LABORATORY TECHNICIAN Per VIJAY guidelines; Typically TSH upper reference [...] defined through assessment of local population data employer relations representative of a health care provider???s practice. ODONTIC LABORATORY TECHNICIAN documented in this encounter Plan of Treatment Not on file documented as of this encounter Visit Diagnoses Not on filedocumented in this encounter Additional Health Concerns Assessment Noted Time PHQ-9 Depression Total Score: 11 06/21/ 023 10:04 AM CDT documented as of this encounter Care Teams Greenhouse Instructor Relationship Specialty Start Date End Date Billie Guadarrama PCP - General 12/17/19 Rocio Mccarthy MD [address] [place] [address] Assigned Endocrinology Provider 04/24/22 Erica Tristan MD [address] [place], [place] [address] Assigned OBGYN Provider 08/06/23 documented as of this encounter
--- OUTSIDE RECORDS SUMMARY | 2024-05-07 15:27 | XMS_ITS | Encounter Summary ---
Author Organization [facility] Address [address] [place] [address]. [place] [address] Care Team Providers Care Business Services Director Name Role Phone Billie Guadarrama Primary Care Provider Rocio Mccarthy MD Unavailable Erica Tristan MD Unavailable Encounter Details Date Type Department Care Team (Late st Contact Info) Description 11/03/2023 MyC Medical Advice [facility] [address] [place] [address] Karina Bone, KEVAN Social History Tobacco Use Types Packs/Day Years [...] Sex Assigned at Female 10/05/2020 9:54 PM SHOW OPERATIONS SUPERVISOR Gender Identity Female 10/05/2020 9:54 PM SHOW OPERATIONS SUPERVISOR Sexual Orientation Straight 10/05/2020 9: 54 PM SHOW OPERATIONS SUPERVISOR documented as of this encounter Plan of Treatment Not on file documented as of this encounter Visit Diagnoses Not on filedocumented in this encounter Additional Health Concerns Assessment Noted Time PHQ-9 Depression Total Score: 11 023 10:04 AM CDT documented as of this encounter Care Teams Business Services Director Relationship Specialty Start Date End Date Billie Guadarrama PCP - General 12/17/19 Rocio Mccarthy MD [address] [place], [place] [address] Assigned Endocrinology Provider 04/24/22 Erica Tristan MD [address] [place], [place] [address] Assigned OBGYN Provider 08/06/23 documented as of this encounter
--- OUTSIDE RECORDS SUMMARY | 2024-05-07 15:27 | XMS_ITS | Encounter Summary ---
Author Organization [facility] Address [address] [place] [address]. [place] [address] Care Team Providers Care Strategic Business Development Name Role Phone Blilie Guadarrama Primary Care Provider Anthony Shaffer MD Unavailable [phone] Rocio Mccarthy MD Unavailable Erica Tristan MD Unavailable [phone] Encounter Details Date Type Department Care Team (Late st Contact Info) Description 01/06/2022 MyC Medical Advice [address] [id number] Jina Harrell V, RN Social History Tobacco [...] Sex Assigned at Female 10/05/2020 9:54 PM ELECTRICIAN UNDERGROUND Gender Identity Female 10/05/2020 9:54 PM ELECTRICIAN UNDERGROUND Sexual Orientation Straight 10/05/2020 9: 54 PM ELECTRICIAN UNDERGROUND COVID-19 Exposure Response Date Recorded In the last month, have you been in contact with someone who was confirmed or suspected to have Coronavirus / COVID-19? No / Unsure 01/05/2022 1:29 PM CDT documented as of this encounter Plan of Treatment Not on file documented as of this encounter Visit Diagnoses Not on filedocumented in this encounter Care Teams Strategic Business Development Relationship Specialty Start Date End Date Billie Guadarrama PCP - General 12/17/19 Anthony Shaffer MD [address] [place], [place] [address] Assigned OBGYN Provider 05/10/21 Rocio Mccarthy MD [address] [place] [address] Assigned Endocrinology Provider 04/24/22 Erica Tristan MD [address] [place], [place] [id number] Assigned OBGYN Provider 08/06/23 documented as of this encounter
--- OUTSIDE RECORDS SUMMARY | 2024-05-07 15:27 | XMS_ITS | Encounter Summary ---
Author Organization [facility] Address [address] [place] [address]. 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 Procedures US Head Neck Soft Tissue Rocio Mccarthy MD [address] [facility] [address] [place] [address] Referral ID Status Reason Start Date Expiration Date Visits Re quested Visits Authorized [id number] Closed 06/03/2022 06/03/2023 1 1 Reason for Visit * Reason Onset Date Comments Call Back 06/01/2022 Encounter Details Date Type Department Care Team (Late st Contact Info) Description 06/01/2022 Telephone [facility] [address] [place] [address] Rocio Mccarthy MD [address] [place], [place] [phone] Call Back Social History Tobacco Use Types [...] Assigned at Female 10/05/2020 9:54 PM BUSINESS ENGLISH INSTRUCTOR Gender Identity Female 10/05/2020 9:54 PM BUSINESS ENGLISH INSTRUCTOR Sexual Orientation Straight 10/05/2020 9: 54 PM BUSINESS ENGLISH INSTRUCTOR documented as of this encounter Miscellaneous Notes [...] Sharmin Peacock - 06/01/2022 10:21 AM CDT [facility] Call Center Phone Message May a [...] thyroiditis documented in this encounter Care Teams Pump House Operator Relationship Specialty Start Date End Date Chiara Billie PCP - General 12/17/19 Rocio Mccarthy MD [address] [place] [address] Assigned Endocrinology Provider 04/24/22 Erica Tristan MD [address] [place], [place] [address] Assigned OBGYN Provider 08/06/23 documented as of this encounter
--- OUTSIDE RECORDS SUMMARY | 2024-05-07 15:27 | XMS_ITS | Encounter Summary ---
Author Organization [facility] Address [address] [place] [address]. [place] [address] Care Team Providers Care Theater Company Producer Name Role Phone Billie Guadarrama Primary Care Provider [phone] Rocio Mccarthy MD Unavailable [phone] Anthony Shaffer MD Unavailable Rocio Mccarthy MD Unavailable [phone] Erica Tristan MD Unavailable Reason for Visit * Reason Onset Date Comments MyChart Communication 06/12/2020 Encounter Details Date Type Department Care Team (Latest Contact Info) Description 06/12/2020 MyC Medical Advice [facility] [address] [facility] [address] [place] [address] Rocio Mccarthy MD [address] [place] [address] MyChart Communication Social History Tobacco [...] Sex Assigned at Female 10/05/2020 9:54 PM NIGHTMAN Gender Identity Female 10/05/2020 9:54 PM NIGHTMAN Sexual Orientation Straight 10/05/2020 9: 54 PM NIGHTMAN COVID-19 Exposure Response Date Recorded In the last month, have you been in contact with someone who was confirmed or suspected to have Coronavirus / COVID-19? No / Unsure 05/29/2020 2:44 PM CDT documented as of this encounter Miscellaneous Notes * Telephone Encounter - Angelic Cavazos RN - 06/12/2020 9:07 AM CDT Please see [employer] message and advise. Thank you. documented in this encounter Plan of Treatment Not on file documented as of this encounter Visit Diagnoses Not on filedocumented in this encounter Care Teams Theater Company Producer Relationship Specialty Start Date End Date Billie Guadarrama PCP - General 12/17/19 Rocio Mccarthy MD [address] [place] [id number] Assigned Endocrinology Provider 08/01/20 11/28/21 Anthony Shaffer MD [address] [id number] Assigned OBGYN Provider 05/10/21 Rocio Mccarthy MD [address] [place] [address] [address] [place], [place] [address] Assigned Endocrinology Provider 04/24/22 Erica Tristan MD [address] [place], [place] [id number] Assigned OBGYN Provider 08/06/23 documented as of this encounter
--- OUTSIDE RECORDS SUMMARY | 2024-05-07 15:27 | XMS_ITS | Encounter Summary ---
Author Organization [facility] Address [address] [place] [address]. [place] [address] Care Team Providers Care Armoured Car Escort Name Role Phone Billie Guadarrama Primary Care Provider Anthony Shaffer MD Unavailable [phone] Rocio Mccarthy MD Unavailable [phone] Erica Tristan MD Unavailable [phone] Encounter Details Date Type Department Care Team (Late st Contact Info) Description 03/31/[address] [facility] [address] [place] [address] Rocio Mccarthy MD [address] [place] [address] Social History Tobacco Use Types [...] Sex Assigned at Female 10/05/2020 9:54 PM MINI SHIFTER Gender Identity Female 10/05/2020 9:54 PM MINI SHIFTER Sexual Orientation Straight 10/05/2020 9: 54 PM MINI SHIFTER documented as of this encounter Miscellaneous Notes * Telephone Encounter - Jina Harrell RN - 04/01/2022 8:21 AM CDT Okay to use ANGÉLICA spot documented in this encounter Plan of Treatment Not on file documented as of this encounter Visit Diagnoses Not on filedocumented in this encounter Care Teams Armoured Car Escort Relationship Specialty Start Date End Date Billie Guadarrama PCP - General 12/17/19 Anthony Shaffer MD [address] [place], [place] [address] Assigned OBGYN Provider 05/10/21 Rocio Mccarthy MD [address] [place], [place] [address] Assigned Endocrinology Provider 04/24/22 Erica Tristan MD [address] [place], [place] [address] Assigned OBGYN Provider 08/06/23 documented as of this encounter
--- OUTSIDE RECORDS SUMMARY | 2024-05-07 15:28 | XMS_ITS | Encounter Summary ---
Author Organization [facility] Address [address] [place] [address]. [place] [address] Care Team Providers Care Deburr Technician Name Role Phone Tucker Michel MD Primary Care Provider [phone] Frw, None Primary Care Provider Unavailabl Billie Jensen Primary Care Provider [phone] Rocio Mccarthy MD Unavailable Anthony Shaffer MD Unavailable [phone] Rocio Mccarthy MD Unavailable [phone] Erica Tristan MD Unavailable [phone] Reason for Visit * Reason Comments Abstract Encounter Details Date Type Department Care Team (Late st Contact Info) Description 05/22/[address] [facility] [place] Medical Records [address] [place] [address] Reconciliation Coordinator, KUmair Social History Tobacco Use Types Packs/Day Years Used Date Smoking Tobacco: Never Assessed Comments:NO 2ND HAND SMOKE A T HOME Alcohol Use Standard Drinks/Week Comments Not Asked 0 (1 standard drink = 0.6 oz pur e alcohol) Sex and Gender Information Value Date Recorded Sex Assigned at Female 10/05/2020 9:54 PM DISCHARGE DOOR OPERATOR Gender Identity Female 10/05/2020 9:54 PM DISCHARGE DOOR OPERATOR Sexual Orientation Straight 10/05/2020 9: 54 PM DISCHARGE DOOR OPERATOR documented as of this encounter Plan of Treatment Not on file documented as of this encounter Visit Diagnoses Not on filedocumented in this encounter Care Teams Deburr Technician Relationship Specialty Start Date End Date Tucker Michel MD [facility] [place] [address] [facility] [address] [place] [address] PCP - General 11/02/00 02/05/13 Frw, None PCP - General Family Practice 02/06/13 06/09/17 Billie Guadarrama PCP - General 12/17/19 Rocio Mccarthy MD [address] [place] [address] Assigned Endocrinology Provider 08/01/20 11/28/21 Anthony Shaffer MD [address] [place] [address] Assigned OBGYN Provider 05/10/21 Rocio Mccarthy MD [address] [place] [address] Assigned Endocrinology Provider 04/24/22 Erica Tristan MD [address] [place] [address] Assigned OBGYN Provider 08/06/23 documented as of this encounter
--- OUTSIDE RECORDS SUMMARY | 2024-05-07 15:28 | XMS_ITS | Continuity of Care Document ---
Author Organization [facility] Address [address] [place] [address] Phone Care Team Providers Care Street Light Lamp Cleaner Name Role Phone Delisa Castillo CNP Unavailable Unavail able Allergies, Adverse Reactions, Alerts Substance Reaction Status Criticality No Known Allergies Active No Inform ation Medications Medication Instructions Dosage Effective Dates (start - stop) Status Comments Endometrin 100 mg vaginal insert insert 2 vaginal insert by vaginal route every day 200 MG - Active levothyroxine 125 mcg capsule take 1 capsule by oral route every day 125 MCG - Active Procedures Procedure Date OFFICE/OUTPATIENT VISIT, EST Disabilty Reports Forms OFFICE/OUTPATIENT VISIT, EST OFFICE VISIT, EST TELEMEDICINE Drug Urine Toxology With Chromatography Drug test def 1-7 classes OFFICE/OUTPATIENT VISIT, NEW Advance Directives Directive Yes / No Effective Date File Name No Information Encounters Encounter Description Practice Location Reason(s) For Visit Diagnoses Date Provider Providers Copied on Encounter [facility], [address] [place], [place], [id number] , [place] tel:[phone] [facility] [place] No Information Darnell Hercules. [address] [place], [id number] , [place]. tel:[phone] OFFICE/OUTPAT IENT VISIT, EST [facility], [address] [place], [place], [id number] , [place] tel:[phone] [facility] [place] Widespread pain (chief complaint) Chronic pain syndromeCervicalgi aFibromyalgiaRadic ulopathy, lumbar region 4 [place] Delisa. [address] [place], [id number] , [place]. tel:[phone] Referring Provider: Billie Guadarrama [facility] [address] [place], [address]. tel:[phone] [facility], [address] [place] [address] [place], [id number] , [place] [phone] [facility] [place] No Information 3 [place] Delisa. [address] [place] [address] [place], [id number] , [place]. tel:[phone] Referring Provider: Billie Guadarrama [facility] [address] [place], [address]. tel:[phone] OFFICE/OUTPAT IENT VISIT, EST [facility], [address] [place] [address] [address] [place], [place], [id number] , [place] [phone] [facility] Widespread pain (chief complaint) Chronic pain syndromeCervicalgi aLow back pain, unspecifiedFibromy algia 3 [place] Delisa. [address] [place], [place], [id number] , [place]. tel:[phone] Referring Provider: Billie Guadarrama [facility] [address] [place], [address]. tel:[phone] OFFICE VISIT, EST TELEMEDICINE [facility], [address] [place] [address] [place], [id number] , [place] [phone] [facility] Widespread pain (chief complaint) Chronic pain syndromeCervicalgi aLow back pain, unspecifiedFibromy algia 2 [place] Delisa. [address] [facility] [place], [place], [id number] , [place]. [phone] Referring Provider: Billie Guadarrama [facility] [address] [place], [address]. tel:[phone] [facility], [address] [place], [id number] , [place] tel:[phone] [facility] [place] No Information 2 Darnell Hercules. [address] [place] [place], [place], [id number] , [place]. tel:[phone] Referring Provider: Billie Guadarrama [facility] [address] [facility], [place], [address]. tel:[phone] OFFICE/OUTPAT IENT VISIT, [facility], [address] [place], [id number] , [place] tel:[phone] [facility] [place] Widespread pain (chief complaint) Chronic pain syndromeFibromyalg iaLow back pain, unspecifiedCervica lgiaEncounter for therapeutic drug level monitoring 2 Darnell Hercules. [address] [facility] [place], [place], [id number] , [place]. tel:[phone] Referring Provider: Billie Guadarrama [facility] [address] [facility], [place], [address]. tel:[phone] Family History Family Member Type Diagnosis Age At Onset Father Problem Low back problems Mother Problem Low back problems Payers Payer name Insurance type Covered democrat ID Basil sanjoseph(s) murali [facility] [id number] Social History Type Description Quantity Date Captured Comments Sex Female Smoking Status No Information Chief Complaint And Reason For Visit No Information Reason For Referral Reason For Referral No Information Plan Of Treatment Date Type Action Status Goal PHQ-9. Due on du e Goal Hepatitis C screening. Due o n due Goal Height. Due on d ue Goal Tobacco Use. Due on 024 due Goal Weight. Due on d ue Goal Update Social History. Due o n due Goal Medication Reconciliation. D ue on due Goal Review Allergy List. Due on due Goal Unhealthy drug use screening . Due on due Goal Hepatitis C screening. Due o n due Goal Review Allergy List. Due on due Goal Update Social History. Due o n due Goal PHQ-9. Due on du e Goal Weight. Due on d ue Goal Medication Reconciliation. D ue on due Goal Unhealthy drug use screening . Due on due Goal Tobacco Use. Due on 023 due Goal Height. Due on d ue Goal Height. Due on d ue Goal Medication Reconciliation. D ue on due Goal Hepatitis C screening. Due o n due Goal Review Allergy List. Due on due Goal Update Social History. Due o n due Goal Tobacco Use. Due on due Goal Unhealthy drug use screening . Due on due Goal Weight. Due on d ue Goal PHQ-9. Due on du e Goal Tobacco Use. Due on 022 due [...] on due Goal Tobacco Use. Due on 022 due Goal Update Social History. Due o n due Goal Height. Due on d ue Goal Unhealthy drug use screening . Due on due Goal Hepatitis C screening. Due o n due Goal PHQ-9. Due on du e History Of Present Illness Encounter Date Complaint History Of Prese nt Illness Widespread pain Severity level i s 9. Duration: chronic. Location of the pain is lower back and BL legs. The client describes it as sharp and achy. It occurs persistently. The problem is fluctuating. Symptom is aggravated by bending, walking upstairs, walking downstairs, sitting, standing, housework, lifting and movement. Relieving factors include massage, rest, heat and cold. Comments: Chelsy aguirre presents in clinic for a follow up regarding chronic widespread pain r/t fibromyalgia. She was last seen on 12/07/22. Her pain has been fluctuating since KIM.Reports that she had gone [facility] after previously being referred and had ruled out other causes to her pain. States that primary cause continues to be fibromyalgia.Mentions she is 7 months and has been exeriencing increased back pain. Mentions she is also undergoing a complete salpingectomy 24 hours after the delivery.Has not been going to PT d/t increased doctors visits as she is a high risk . Continues to do stretches at home but would be interested in starting PT with myofascial release after giving .No other concerns today. Widespread pain Location of [...] r/t fibromyalgia referred by Dr. Guadarrama through [facility]. Patient describes burning, numbness, tingling, [...] cannabis and other pain management options through [facility]. No other concerns today. Functional Status Date Functional Assessmen t No Information Instructions Date Instruction Additional Infor mation No Information Assessments Type Assessment Date No Information Patient Care Teams Name Effective Dates (start - stop) Status Members No Information
--- OUTSIDE RECORDS SUMMARY | 2024-05-07 15:28 | XMS_ITS | Continuity of Care Document ---
Author Organization [facility] Address [address] [place] [address] Phone Care Team Providers Care Rebar Worker Name Role Phone Juan Rodriguez DO Unavailable [...] suspected, a test for HCV RNA(test code 34500) is suggested. For additional information please refer tohttp://education.[employer]/faq/FAQ22v 1(This link is being provided for informational/educational [...] New [facility] , [address], [place], [address], [place] tel:[phone] [facility] , Musculoskele desiree pain (chief complaint) Myalgia, unspecified sitePain in unspecified lower legTingling skinOther low back painDry eye syndrome of bilateral lacrimal glandsDiplop iaGoiter 3 Michael Martinez. [facility] [address], [place], [address], [place]. tel:[phone] Attending Physician: Billie Guadarrama, [facility] [address] , [place], [address]. tel:[phone] ring Provider: Juan Woods, [facility] [address], [place], [address]. tel:[phone] Family History Family Member Type Diagnosis Age At Onset No Information Payers Payer name Insurance type Covered republican ID Authoriza tijoseph(s) Pepe BRENNAN [id number] Social History Type Description Quantity Date Captured [...] Mental Status Date Cognitive Assessment Orientation - Lane ed to time, place, person, situation. Patient Care Teams Name Effective Dates (start - stop) Status Members No Information
== END 2024-05-07 15:28 | disposition home or self-care (01) ==
LOC: ED 15:24
PROVIDERS: Emergency Provider Emergency Medicine Emergency Medical Services; PCP Family Medicine
DX: M54.50 Low back pain, unspecified (principal)
CPT/HCPCS: 99283; 99284

== ENCOUNTER 2024-05-26 10:22 | Outpatient (CLI) | payer MEDICAID, SELFPAY ==
--- OUTSIDE RECORDS SUMMARY | 2024-05-26 10:37 | XMS_ITS | Encounter Summary ---
Author Organization [facility] Address [address] [place] [address]. [place] [address] Care Team Providers Care Health And Safety Technician Name Role Phone Billie Guadarrama Primary Care Provider [phone] Rocio Mccarthy MD Unavailable [phone] Erica Tristan MD Unavailable [phone] Reason for Visit * Reason Onset Date Comments Call Back 09/12/2023 Encounter Details Date Type Department Care Team (Late st Contact Info) Description 09/12/2023 Telephone [facility] [address] [place] [address] Rocio Mccarthy MD [address] [place] [address] Call Back Social History Tobacco [...] Assigned at Female 10/05/2020 9:54 PM SOFTWARE CONFIGURATION ANALYST Gender Identity Female 10/05/2020 9:54 PM SOFTWARE CONFIGURATION ANALYST Sexual Orientation Straight 10/05/2020 9: 54 PM SOFTWARE CONFIGURATION ANALYST documented as of this encounter Miscellaneous Notes * Telephone Encounter - Rocio Mccarthy MD - 09/15/2023 3:33 PM SOFTWARE CONFIGURATION ANALYST Please see telephone encounter 09/15/2023 WARE CONFIGURATION ANALYST * Telephone Encounter - Chelita Hahn - 09/12/2023 2:56 PM [facility] Phone Message May a detailed message be left on voicemail: yes Reason for Call: Other: BASKETBALL PLAYER would like to know normal references ranges and values patient's care is being based off of. Patient is in 2nd trimester of . When calling , please ask for triage nurse. Action Taken: Other: endo Travel Screening: Not Applicable WARE CONFIGURATION ANALYST documented in this encounter Plan of Treatment Not on file documented as of this encounter Visit Diagnoses Not on filedocumented in this encounter Additional Health Concerns Assessment Noted Time PHQ-9 Depression Total Score: 11 023 10:04 AM CDT documented as of this encounter Care Teams Health And Safety Technician Relationship Specialty Start Date End Date Billie Guadarrama PCP - General 12/17/19 Rocio Mccarthy MD [address] [place], [place] [address] Assigned Endocrinology Provider 04/24/22 Erica Tristan MD [address] [place], [place] [address] Assigned OBGYN Provider 08/06/23 documented as of this encounter
--- OUTSIDE RECORDS SUMMARY | 2024-05-26 10:37 | XMS_ITS | Encounter Summary ---
Author Organization [place] Address [address] [facility] [place] [address] Care Team Providers Care Junior Assistant Manager Name Role Phone Billie Guadarrama Primary Care Provider Rocio Mccarthy MD Unavailable [phone] Erica Tristan MD Unavailable [phone] Encounter Details Date Type Department Care Team (Late st Contact Info) Description 10/28/2023 [facility] Medical Advice [facility] [place] [address] [place], [place] [address] Lisa Larose, RN Social History Tobacco Use [...] Sex Assigned at Female 10/05/2020 9:54 PM ANTIQUE REPAIRER Gender Identity Female 10/05/2020 9:54 PM ANTIQUE REPAIRER Sexual Orientation Straight 10/05/2020 9: 54 PM ANTIQUE REPAIRER documented as of this encounter Plan of Treatment Not on file documented as of this encounter Visit Diagnoses Not on filedocumented in this encounter Additional Health Concerns Assessment Noted Time PHQ-9 Depression Total Score: 11 023 10:04 AM CDT documented as of this encounter Care Teams Junior Assistant Manager Relationship Specialty Start Date End Date Billie Guadarrama PCP - General 12/17/19 Rocio Mccarthy MD [address] [facility] [address] [place], [place] [address] Assigned Endocrinology Provider 04/24/22 Erica Tristan MD [address] [facility] [address] [place], [place] [address] Assigned OBGYN Provider 08/06/23 documented as of this encounter
--- OUTSIDE RECORDS SUMMARY | 2024-05-26 10:37 | XMS_ITS | Encounter Summary ---
Author Organization [place] Address [address] [place] [address]. [place] [address] Care Team Providers Care Commercial Pest Control Representative Name Role Phone Billie Guadarrama Primary Care Provider [phone] Rocio Mccarthy MD Unavailable [phone] Erica rTistan MD Unavailable [phone] Encounter Details Date Type Department Care Team (Late st Contact Info) Description 02/16/2024 Telephone [facility] [address] [facility] [address] [place] [address] Rocio Mccarthy MD [address] [place] [address] Social History Tobacco Use Types [...] Sex Assigned at Female 10/05/2020 9:54 PM BDR Gender Identity Female 10/05/2020 9:54 PM BDR Sexual Orientation Straight 10/05/2020 9: 54 PM BDR documented as of this encounter Miscellaneous Notes [...] as of this encounter Care Teams Commercial Pest Control Representative Relationship Specialty Start Date End Date Billie Guadarrama PCP - General 12/17/19 Rocio Mccarthy MD [address] [place] [address] Assigned Endocrinology Provider 04/24/22 Erica Tristan MD [address] [facility] [address] [place] [address] Assigned OBGYN Provider 08/06/23 documented as of this encounter
--- OUTSIDE RECORDS SUMMARY | 2024-05-26 10:37 | XMS_ITS | Encounter Summary ---
Author Organization [place] Address [address] [place] [address]. [place] [address] Care Team Providers Care Rural Sociologist Name Role Phone Billie Guadarrama Primary Care Provider [phone] Rocio Mccarthy MD Unavailable [phone] Erica Tristan MD Unavailable [phone] Reason for Visit * Auth/Cert (Routine) Specialty Diagnoses / Procedures Referred By Contac t Referred To Contact fish peddler Diagnoses Indication for care in labor or delivery Indication for care in labor or delivery [facility] [address] [place] [address] Referral ID Status Reason Start Date Expiration Date Visits Re quested Visits Authorized [id number] 1 1 Encounter Details Date Type Department Care Team (Late st Contact Info) Description 10/19/2023 Hospital Encounter [facility] [address] [place] [address] Simon Marcial MD [address] [facility] [address] [place], [place] [address] Social History Tobacco Use Types Packs/Day Years [...] Sex Assigned at Female 10/05/2020 9:54 PM FUNDRAISING DIRECTOR Gender Identity Female 10/05/2020 9:54 PM FUNDRAISING DIRECTOR Sexual Orientation Straight 10/05/2020 9: 54 PM FUNDRAISING DIRECTOR documented as of this encounter H&P Notes * Lisa Matthew MD - 10/19/2023 5:30 PM CST Admission H and P: S: Pt is a transfer to [facility] from [facility] at 32+2/7 wks. She has a history of PTC in prior at 32 weeks without delivery until term. Today she started to note increase in contractions. Cervix was found to be 3 cm at [place]. Theygave her BMZ, started nifedipine and Magnesium Sulfate and transferred her to [facility] for antepartummanagement. She has history of [...] profolaxis. Continue home medications. Lisa Matthew MD RAISING DIRECTOR documented in this encounter Plan of Treatment Not on file documented as of this encounter Visit Diagnoses Not on filedocumented in this encounter Additional Health Concerns Assessment Noted Time PHQ-9 Depression Total Score: 11 023 10:04 AM CDT documented as of this encounter Care Teams Rural Sociologist Relationship Specialty Start Date End Date Billie Guadarrama PCP - General 12/17/19 Rocio Mccarthy MD [address] [place] [address] Assigned Endocrinology Provider 04/24/22 Erica Tristan MD [address] [facility] [address] [place] [address] Assigned OBGYN Provider 08/06/23 documented as of this encounter
--- OUTSIDE RECORDS SUMMARY | 2024-05-26 10:37 | XMS_ITS | Clinical Summary ---
Author Organization [facility] Address [address] [place] [address] Care Team Providers Care Supervisor Dog License Officer Name Role Phone Billie Guadarrama Primary Care Provider [phone] Rocio Mccarthy MD Unavailable Erica Tristan MD Unavailable [phone] Allergies Active Allergy Reactions Criticality Noted [...] 09/20/2002, 8,1997,1996 DTP-Hib 1997 DTaP, Unspecified 04/06/2010 [id number] Novel Flu 12/23/2009 HEPATITIS A (PEDS 12M-18Y) [...] Sex Assigned at Female 10/05/2020 9:54 PM SLATE TRIMMER Gender Identity Female 10/05/2020 9:54 PM SLATE TRIMMER Sexual Orientation Straight 10/05/2020 9: 54 PM SLATE TRIMMER Last Filed Vital Signs Vital Sign Reading Time Taken Comments Blood Pressure 114/57 11/18/2023 10:26 AM SLATE TRIMMER Pulse 99 11/18/2023 10:26 AM SLATE TRIMMER Temperature 36.6 ??C (97.9 ??F) 10/20/2023 7:18 AM CS T Respiratory Rate 16 10/20/2023 7:18 AM SLATE TRIMMER Oxygen Saturation 98% 11/04/2023 3:10 PM SLATE TRIMMER Inhaled Oxygen Concentration - - Weight 114.8 kg (253 lb) 10/19/2023 12:22 PM SLATE TRIMMER Height 165.1 cm (5' 5) 10/19/2023 12:22 PM SLATE TRIMMER Body Mass Index 42.1 10/19/2023 12:22 PM SLATE TRIMMER Plan of Treatment Health Maintenance Due Date Last Done Comments ADVANCE CARE PLANNING 1997 ANNUAL REVIEW OF HM ORDERS 1997 YEARLY PREVENTIVE VISIT 06/01/2003 06/01/2002, 05/23 HEPATITIS C SCREENING 2015 COVID-19 Vaccine ( season) 2023 INFLUENZA VACCINE (#1) 2024 , 07/07/2023, 10/14/2022, Additional history exists TSH W/FREE T4 REFLEX 02/12/2025 02/13/2024, 02/13/2024, 12/20/2023, Additional history exists PAP 01/23/2027 01/24/2024, 01/08, 12/04/2020 DTAP/TDAP/TD IMMUNIZATION (9 - Td or [...] Priority Date/Time Associated Diagnosis Comments TSH Routine 02/13/2024 2:02 PM CDT 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 CHLAMYDIA TRACHOMATIS/NEISSERI A GONORRHOEAE BY PCR STAT 05/25/2021 6:45 PM CDT HIV 1&2 ANTIBODY (EXTERNAL RESULT) Routine 12/04/2020 12:00 AM SLATE TRIMMER from Last 3 Months or Most Recently Relevant to Health Maintenance Results * (ABNORMAL) TSH (02/13/2024 2:02 PM CDT) TSH 0.01(L) 0.30 - 4.20 uIU/mL 02/14/2024 12:34 AM CDT [facility] Blood BLOOD SPECIMEN / Unknown Venipuncture / Unknown 02/13/2024 2:02 PM CDT 02/13/2024 2:02 PM CDT Rocio Mccarthy MD LAB - BLOOD ORDER [place] [facility] [address] [id number] * Chlamydia trachomatis/Neisseria gonorrhoeae by PCR (05/25/2021 6:45 PM CDT) Pathologist [facility] Chlamydia Trachomatis Negative Negative 05/26/2021 11:22 AM CDT [facility] Comment: Negative for C. trachomatis rRNA by other sports official mediated amplification. A negative result by other sports official mediated amplification does not preclude the presence of infection because results are dependent on proper and adequate collection, absence of inhibitors and sufficient rRNA to be detected. Neisseria gonorrhoeae Negative Negative 05/26/2021 11:22 AM CDT [facility] Comment:Negative for N. gono rrhoeae rRNA by other sports official mediated amplification. A negative result by other sports official mediated amplification does not preclude the presence of C. trachomatis infection because results are dependent on proper and adequate collection, absence of inhibitors and sufficient rRNA to be detected. Swab CERVIX UTERI STRUCTURE / Unknown Non-blood Collection / Unknown 05/25/2021 6:45 PM CDT 05/25/2021 7:17 PM CDT Jaimie Clinton MD LAB - MICRO GEN ERAL ORDERABLES [facility] Infectious Diseases Diagnostic Lab (IDDL) [address] [facility] [place] [address], [facility] [phone] * HIV-1 Antibody (External Result) (12/04/2020 12:00 AM SLATE TRIMMER) HIV 1&2 Antibody (External) Negative Nonreactive EXTERNAL LAB 12/04/2020 Patient Reported LAB - HIM EXTERNAL R ESULT EXTERNAL LAB External Lab from Last 3 Months or Most Recently Relevant to Health Maintenance Advance Directives For more information, please contact: [phone] * Full Code (Latest Code Status on [...] Comments Code status determined by: Discussion with neri nt/ legal decision maker Care Teams Supervisor Dog License Officer Relationship Specialty Start Date End Date Billie Guadarrama PCP - General 12/17/19 Rocio Mccarthy MD [address] [place] [address] Assigned Endocrinology Provider 04/24/22 Erica Tristan MD [address] [place], [place] [address] Assigned OBGYN Provider 08/06/23
--- OUTSIDE RECORDS SUMMARY | 2024-05-26 10:37 | XMS_ITS | Clinical Summary ---
Author Organization [facility] Address [place], [place] [address] Care Team Providers Care Faculty Head Name Role Phone Vasquez Ridley MD Unavailable [phone] Sanjeev Brar MD Unavailable [phone] Pcp, No Primary Care Provider Unavailabl e Allergies Active Allergy Reactions Criticality Noted Date Comments Drospirenone-Ethinyl Estradiol Rash,Headache Oxycodone-Acetaminophen Rash 01/17/2014 Medications Medication Sig Dispensed Refills Start Date End Date Status nystatin powder (MYCOSTATIN) powderIndication s:Yeast dermatitis USE TOPICALLY TO AFFECTED AREA(S) 2 TO 4 TIMES DAILY DIRECTED 60 g 1 11/21/2021 Active cholecalciferol (Vitamin D-3) 2,000 unit capsuleIndicatio ns:Vitamin D deficiency Take 1 Capsule (2,000 units) by mouth once daily. 90 Capsule 3 10/16/2023 Active progesterone micronized (PROMETRIUM) 200 mg capsule Insert 200 mg into the vagina at bedtime. 09/06/2023 05/25/2024 Discontinued (*Med complete/Reg imen complete/Lev el of [...] Encounters Date Type Department Care Team Description 05/25/2024 7:25 AM CDT Telemedicine [facility] [address] [place] [address] Yumi Narayanan MD Throat Problem (throat hurts, started tuesday, dad positive for COVID-19, not started prednisone trying to break fever) 05/24/2024 Travel from Last 3 Months Immunizations Name [...] Labor Labor/2nd/3rd Weight Sex Type Anes PTL Jenny A1 A5 Name Clin SAB 2020 Term 37w 1d Vag Living Current Last Filed Vital Signs Vital Sign Reading Time Taken Comments Blood Pressure 103/70 05/25/2024 8:25 AM CDT Pulse 103 05/25/2024 8:25 AM CDT Temperature 36.6 ??C (97.8 ??F) 05/25/2024 8:25 AM CD T Respiratory Rate 18 10/06/2022 8:41 PM FISHERMAN HELPER Oxygen Saturation 98% 05/25/2024 8:25 AM CDT Inhaled Oxygen Concentration - - Weight 109.1 kg (240 lb 9.6 oz) 05/25/2024 8:25 AM CDT Height 165.1 cm (5' 5) 10/14/2022 1:05 PM FISHERMAN HELPER Body Mass Index 40.04 10/14/2022 1:05 PM FISHERMAN HELPER Plan of Treatment Health Maintenance Due Date Last Done Comments HIV for age 15-65 2012 COVID-19 vaccine series ( season) 2023 BMI (ht and wt on same day) for age 18+ 10/14/2023 10/14/2022, 07/14/2020, 12/14/2019, Additional history exists Influenza for age 9-49 06/10/2024 3, 10/14/2022, 07/14/2020, Additional history exists Depression screening for age 12+ 01/15/2025 01/16/2024, 10/13/2023, 10/14/2022, Additional history exists Pap test for age 21-65 01/23/2027 4, 01/24/2024, 12/04/2020, Additional history exists Tetanus booster 05/11/2031 05/11/2021, 11/2019, 04/06/2010 HPV series for age 9-26 Completed 10/27/19 13, 10/27/2012, 06/26/2012, Additional history exists Hepatitis C screening for age 18-79 Completed 08/31/2016 Tdap Completed 05/11/2021, 04/06/2010 Pneumococcal series for age 6-64 Aged Out No longer eligible based on patient's age to complete this topic Procedures Procedure Name Priority Date/Time Associated Diagnosis Comments COVID-19 MOLECULAR Routine 05/25/2024 8: 30 AM CDT Sore throat HPV THIN PREP Routine 01/24/2024 11:00 AM CDT ACUTE HEPATITIS PANEL Routine 08/31/2016 3:04 PM FISHERMAN HELPER Elevated LFTs from Last 3 Months or Most Recently Relevant to Health Maintenance Results * COVID-19 MOLECULAR (05/25/2024 8:30 AM CDT) Pathologist [facility] COVID 19 [place] MOLECULAR Negative Negative 05/25/2024 6:47 PM CDT [facility] TESTING LABORATORY [facility] 05/25/2024 6:47 PM CDT [facility] Comment:Specimen submitted t o [facility] for testing. Other SPECIMEN FROM NASAL FOSSAE / Unknown Non-Blood / Unknown 05/25/2024 8:30 AM CDT 05/25/2024 9:07 AM CDT Narrative [facility] - 05/25/2024 6:47 PM CDT All PCR tests are subject to false negative result due to variability in viral load and collection technique. A negative result does not rule out a SARS-CoV-2 infection. Clinical correlation required. Yumi Narayanan MD MICROBIOLOGY [facility] [address] [place] [address], * HPV HIGH RISK (01/24/2024 11:00 AM CDT) Pathologist [facility] TYPE 16 Negative Negative 01/27/2024 11:37 AM CDT [facility] TRAL LABORATORY TYPE 18 Negative Negative 01/27/2024 11:37 AM CDT [facility] TRAL LABORATORY OTHER HIGH RISK TYPES Negative Negative 01/27/2024 11:37 AM CDT [facility] TRAL LABORATORY Other (Cervical) 01/24/2024 11:00 AM CDT 01/26/2024 10:40 AM CDT Narrative [facility] - 01/27/2024 11:37 AM CDT HPV types 16, 18, 31, 33, 35, 39, 45, 51, 52, 56, 58, 59, 66 and 68 DNA were undetectable or below the pre-set threshold. Methodology: Terri Ernie 4800 HPV Test Marely Vasquez PA-C MICROBIOLOGY [facility] [address] [place] [address], * ACUTE HEPATITIS PANEL (08/31/2016 3:04 PM FISHERMAN HELPER) HEPATITIS C ANTIBODY Non-Reactive Non-Reactive 08/31/2016 8:15 PM FISHERMAN HELPER [facility] IGM ANTI HAV Non-Reactive Non-Reactive 08/31/20 16 8:15 PM FISHERMAN HELPER [facility] LABORAT[facility] HBSAG Nonreactive Nonreactive 08/31/2016 8:15 PM FISHERMAN HELPER [facility] IGM ANTI HBC Non-Reactive Non-Reactive 08/31/20 16 8:15 PM FISHERMAN HELPER [facility] Blood BLOOD SPECIMEN / Unknown Venipuncture / Unknown 08/31/2016 3:04 PM FISHERMAN HELPER 08/31/2016 3:04 PM FISHERMAN HELPER Narrative [facility] - 08/31/2016 8:15 PM FISHERMAN HELPER Anti-HBc IgM not detected. Does not exclude the possibility of exposure to or infection with HBV. Billie Guadarrama DO SEND OUTS [facility] [address] [place] [address], [place] from Last 3 Months or Most Recently Relevant to Health Maintenance Care Teams Faculty Head Relationship Specialty Start Date End Date Pcp, No . PCP - General 12/28/22 Vasquez Ridley MD [address] [facility] [address] [place] [address] Rheumatology Rheumatology 10/07/16 Sanjeev Brar MD [address] [address] [place] [address] Internal Medicine 09/28/19
--- OUTSIDE RECORDS SUMMARY | 2024-05-26 10:37 | XMS_ITS | Encounter Summary ---
Author Organization [facility] Address [address] [place] [address]. [place] [address] Care Team Providers Care Auto Former Machine Operator Name Role Phone Billie Guadarrama Primary Care Provider Rocio Mccarthy MD Unavailable [phone] Erica Tristan MD Unavailable [phone] Encounter Details Date Type Department Care Team (Late st Contact Info) Description 08/24/2023 MyC Medical Advice [facility] [address] [place] [address] Rocio Mccarthy MD [address] [place] [address] Social History Tobacco Use Types [...] Sex Assigned at Female 10/05/2020 9:54 PM ON CALL Gender Identity Female 10/05/2020 9:54 PM ON CALL Sexual Orientation Straight 10/05/2020 9: 54 PM ON CALL documented as of this encounter Miscellaneous Notes * Telephone Encounter - Rocio Mccarthy MD - 08/26/2023 10:48 AM ON CALL Latest Ref Rng 08/23/2023 1:26 PM ENDO [...] 1 week after that to discuss results. CALL * Telephone Encounter - Ramya Lugo RN - 08/24/2023 11:51 AM CST In response to lab comments 08/23/23: Thyroid labs are in acceptable range. How many weeks are you so far? How are you feeling? CALL documented in this encounter Plan of Treatment Not on file documented as of this encounter Visit Diagnoses Not on filedocumented in this encounter Additional Health Concerns Assessment Noted Time PHQ-9 Depression Total Score: 11 023 10:04 AM CDT documented as of this encounter Care Teams Auto Former Machine Operator Relationship Specialty Start Date End Date Billie Guadarrama PCP - General 12/17/19 Rocio Mccarthy MD [address] [facility] [address] [place] [address] Assigned Endocrinology Provider 04/24/22 Erica Tristan MD [address] [address] Assigned OBGYN Provider 08/06/23 documented as of this encounter
--- OUTSIDE RECORDS SUMMARY | 2024-05-26 10:37 | XMS_ITS | Encounter Summary ---
Author Organization [facility] Address [address] [place] [address]. [place] [address] Care Team Providers Care Paint Crew Supervisor Name Role Phone Billie Guadarrama Primary Care Provider [phone] Rocio Mccarthy MD Unavailable [phone] Erica Tristan MD Unavailable [phone] Encounter Details Date Type Department Care Team (Late st Contact Info) Description 10/18/2023 MyC Medical Advice [facility] [address] [facility] [address] [place] [address] Chelita Harrell, [facility] Social History Tobacco Use Types Packs/Day [...] Sex Assigned at Female 10/05/2020 9:54 PM MODELING AGENT Gender Identity Female 10/05/2020 9:54 PM MODELING AGENT Sexual Orientation Straight 10/05/2020 9: 54 PM MODELING AGENT documented as of this encounter Plan of Treatment Not on file documented as of this encounter Visit Diagnoses Not on filedocumented in this encounter Additional Health Concerns Assessment Noted Time PHQ-9 Depression Total Score: 11 023 10:04 AM CDT documented as of this encounter Care Teams Paint Crew Supervisor Relationship Specialty Start Date End Date Billie Guadarrama PCP - General 12/17/19 Rocio Mccarthy MD [address] [place], [place] [address] Assigned Endocrinology Provider 04/24/22 Erica Tristan MD [address] [place], [place] [address] Assigned OBGYN Provider 08/06/23 documented as of this encounter
--- OUTSIDE RECORDS SUMMARY | 2024-05-26 10:37 | XMS_ITS | Encounter Summary ---
Author Organization [facility] Address [address] [place] [address]. [place] [address] Care Team Providers Care Ward Maid Name Role Phone Billie Guadarrama Primary Care Provider Rocio Mccarthy MD Unavailable [phone] Erica Tristan MD Unavailable Encounter Details Date Type Department Care Team (Late st Contact Info) Description 02/14/2024 MyC Medical Advice [facility] [address] [facility] [address] [place] [address] Rocio Mccarthy MD [address] [place] [address] Social History Tobacco Use Types [...] Sex Assigned at Female 10/05/2020 9:54 PM BUTTON CLAMPER Gender Identity Female 10/05/2020 9:54 PM BUTTON CLAMPER Sexual Orientation Straight 10/05/2020 9: 54 PM BUTTON CLAMPER documented as of this encounter Plan of Treatment Not on file documented as of this encounter Visit Diagnoses Not on filedocumented in this encounter Additional Health Concerns Assessment Noted Time PHQ-9 Depression Total Score: 11 023 10:04 AM CDT documented as of this encounter Care Teams Ward Maid Relationship Specialty Start Date End Date Billie Guadarrama PCP - General 12/17/19 Rocio Mccarthy MD [address] [facility] [address] [place], [place] [address] Assigned Endocrinology Provider 04/24/22 Erica Tristan MD [address] [facility] [address] [place], [place] [address] Assigned OBGYN Provider 08/06/23 documented as of this encounter
--- OUTSIDE RECORDS SUMMARY | 2024-05-26 10:37 | XMS_ITS | Encounter Summary ---
Author Organization [facility] Address [address] [place] [address]. [place] [address] Care Team Providers Care Manager Radio Name Role Phone Billie Guadarrama Primary Care Provider [phone] Rocio Mccarthy MD Unavailable [phone] Erica Tristan MD Unavailable [phone] Encounter Details Date Type Department Care Team (Late st Contact Info) Description 10/09/2023 MyC Medical Advice [facility] [address] [facility] [address] [place] [address] Rocio Mccarthy MD [address] [place] [address] Social History Tobacco Use Types [...] Sex Assigned at Female 10/05/2020 9:54 PM POLLS OR SURVEYS INTERVIEWER Gender Identity Female 10/05/2020 9:54 PM POLLS OR SURVEYS INTERVIEWER Sexual Orientation Straight 10/05/2020 9: 54 PM POLLS OR SURVEYS INTERVIEWER documented as of this encounter Miscellaneous Notes * Telephone Encounter - Nahed Woodruff - 10/12/2023 10:36 AM CST Appointment scheduled. S OR SURVEYS INTERVIEWER * Telephone Encounter - Rocio Mccarthy MD - 10/11/2023 10:51 AM POLLS OR SURVEYS INTERVIEWER Ok for ANGÉLICA at this time. Please [...] if you need any help with scheduling. S OR SURVEYS INTERVIEWER documented in this encounter Plan of Treatment Not on file documented as of this encounter Visit Diagnoses Not on filedocumented in this encounter Additional Health Concerns Assessment Noted Time PHQ-9 Depression Total Score: 11 06/21/ 023 10:04 AM CDT documented as of this encounter Care Teams Manager Radio Relationship Specialty Start Date End Date Billie Guadarrama PCP - General 12/17/19 Rocio Mccarthy MD [address] [place] [address] Assigned Endocrinology Provider 04/24/22 Erica Tristan MD [address] [place], [place] [address] Assigned OBGYN Provider 08/06/23 documented as of this encounter
--- OUTSIDE RECORDS SUMMARY | 2024-05-26 10:37 | XMS_ITS | Encounter Summary ---
Author Organization [facility] Address [address] [place] [address]. [place] [address] Care Team Providers Care Mender Hand Name Role Phone iBllie Guadarrama Primary Care Provider [phone] Rocio Mccarthy MD Unavailable [phone] Erica Tristan MD Unavailable [phone] Encounter Details Date Type Department Care Team (Late st Contact Info) Description 01/04/2024 [facility] Medical Advice [address] [place] [address] Loren Gillespie, RN Social History [...] Sex Assigned at Female 10/05/2020 9:54 PM SPRINKLER DRIVER Gender Identity Female 10/05/2020 9:54 PM SPRINKLER DRIVER Sexual Orientation Straight 10/05/2020 9: 54 PM SPRINKLER DRIVER documented as of this encounter Plan of Treatment Not on file documented as of this encounter Visit Diagnoses Not on filedocumented in this encounter Additional Health Concerns Assessment Noted Time PHQ-9 Depression Total Score: 11 023 10:04 AM CDT documented as of this encounter Care Teams Mender Hand Relationship Specialty Start Date End Date Billie Guadarrama PCP - General 12/17/19 Rocio Mccarthy MD [address] [place], [place] [address] Assigned Endocrinology Provider 04/24/22 Erica Tristan MD [address] [place], [place] [address] Assigned OBGYN Provider 08/06/23 documented as of this encounter
--- OUTSIDE RECORDS SUMMARY | 2024-05-26 10:37 | XMS_ITS | Encounter Summary ---
Author Organization [facility] Address [address] [place] [address]. 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 Follow-up with endocrinology after delivery. N SERVICES PROFESSIONAL documented in this encounter Plan of Treatment [...] [facility] [place] [facility] [address] [facility], [address] [place] [address] * (ABNORMAL) TSH (02/13/2024 2:02 PM CDT) TSH 0.01(L) 0.30 - 4.20 uIU/mL 02/14/2024 12:34 AM CDT [facility] Blood BLOOD SPECIMEN / Unknown Venipuncture / Unknown 02/13/2024 2:02 PM CDT 02/13/2024 2:02 PM CDT Rocio Mccarthy MD LAB - BLOOD ORDER [facility] [place] [facility] [address] [facility], [address] [place] [address] documented in this encounter Visit Diagnoses Diagnosis 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
--- OUTSIDE RECORDS SUMMARY | 2024-05-26 10:37 | XMS_ITS | Encounter Summary ---
Author Organization [facility] Address [address] [place] [address]. [place] [address] Care Team Providers Care Crepe Box Tender Name Role Phone Billie Guadarrama Primary Care Provider Rocio Mccarthy MD Unavailable [phone] Erica Tristan MD Unavailable [phone] Encounter Details Date Type Department Care Team (Late st Contact Info) Description 08/15/2023 MyC Medical Advice [facility] [address] [facility] [address] [place] [address] Rocio Mccarthy MD [address] [place] [address] Social History Tobacco Use Types [...] Sex Assigned at Female 10/05/2020 9:54 PM RUBY ENGINEER Gender Identity Female 10/05/2020 9:54 PM RUBY ENGINEER Sexual Orientation Straight 10/05/2020 9: 54 PM RUBY ENGINEER documented as of this encounter Miscellaneous Notes * Telephone Encounter - Jina Harrell RN - 08/15/2023 9:07 AM RUBY ENGINEER Recommend close follow-up during --recommend lab every 2-3 months during or sooner based on dose adjustment given history of fluctuating labs she needs close follow-up. Follow-up with endocrinology after delivery. ENGINEER documented in this encounter Plan of Treatment Not on file documented as of this encounter Visit Diagnoses Not on filedocumented in this encounter Additional Health Concerns Assessment Noted Time PHQ-9 Depression Total Score: 11 023 10:04 AM CDT documented as of this encounter Care Teams Crepe Box Tender Relationship Specialty Start Date End Date Billie Guadarrama PCP - General 12/17/19 Rocio Mccarthy MD [address] [place], [place] [address] Assigned Endocrinology Provider 04/24/22 Erica Tristan MD [address] [place], [place] [address] Assigned OBGYN Provider 08/06/23 documented as of this encounter
--- OUTSIDE RECORDS SUMMARY | 2024-05-26 10:37 | XMS_ITS | Encounter Summary ---
Author Organization [place] [facility] Address [address] [place] [address]. 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 [...] Assigned at Female 10/05/2020 9:54 PM MANAGER ENGAGEMENT Gender Identity Female 10/05/2020 9:54 PM MANAGER ENGAGEMENT Sexual Orientation Straight 10/05/2020 9: 54 PM MANAGER ENGAGEMENT documented as of this encounter Miscellaneous Notes [...] [facility] C[facility]/PROT/ENDO [facility]/Prot/Endo [address] [facility] [address] [facility], [address] * (ABNORMAL) Thyroid peroxidase antibody (02/13/2024 2:02 PM CDT) Thyroid Peroxidase Antibody 927(H) <35 IU/mL 02/14/2024 9:14 AM CDT [facility]/PROT/ENDO Blood BLOOD SPECIMEN / Unknown Venipuncture / Unknown 02/13/2024 2:02 PM CDT 02/13/2024 2:02 PM CDT Rocio Mccarthy MD LAB - BLOOD ORDER [facility]/PROT/ENDO [facility]/Prot/Endo [address] [facility], [address] * T3 reverse (02/13/2024 2:02 PM CDT) T3, Reverse ng/dL 18.1 9.0 - 27.0 ng/dL 02/16/2024 7:30 AM CDT Contour Comment: INTERPRETIVE INFORMATION: Triiodothyronine, Reverse - LC-MS/MS This test was developed and its performance characteristics determined by [id number]. It has not been cleared or approved by the [place] Food and Drug Administration. This test was performed in a CLIA certified laboratory and is intended for clinical purposes. 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
--- OUTSIDE RECORDS SUMMARY | 2024-05-26 10:37 | XMS_ITS | Encounter Summary ---
Author Organization [facility] Address [address] [place] [address]. [place] [address] Care Team Providers Care Set Up Technician Name Role Phone Billie Guadarrama Primary Care Provider [phone] Rocio Mccarthy MD Unavailable [phone] Erica Tristan MD Unavailable [phone] Encounter Details Date Type Department Care Team (Late st Contact Info) Description 11/03/2023 MyC Medical Advice [facility] [address] [place] [address] Karina Bone, KEVAN Social History Tobacco [...] Sex Assigned at Female 10/05/2020 9:54 PM MANPOWER DEVELOPMENT MANAGER Gender Identity Female 10/05/2020 9:54 PM MANPOWER DEVELOPMENT MANAGER Sexual Orientation Straight 10/05/2020 9: 54 PM MANPOWER DEVELOPMENT MANAGER documented as of this encounter Plan [...] [address] [place], [place] [address] Assigned Endocrinology Provider 04/24/22 Erica Tristan MD [address] [place], [place] [address] Assigned OBGYN Provider 08/06/23 documented as of this encounter
--- OUTSIDE RECORDS SUMMARY | 2024-05-26 10:37 | XMS_ITS | Encounter Summary ---
Author Organization [place] Address [address] [place] [address]. [place] [address] Care Team Providers Care Dinking Machine Operator Name Role Phone Billie Guadarrama Primary Care Provider Rocio Mccarthy MD Unavailable [phone] Erica Tristan MD Unavailable [phone] Encounter Details Date Type Department Care Team (Late st Contact Info) Description 09/15/2023 MyC Medical Advice [facility] [address] [facility] [address] [place] [address] Rocio Mccarthy MD [address] [place] [address] Social History Tobacco Use Types [...] Sex Assigned at Female 10/05/2020 9:54 PM BLOG WRITER Gender Identity Female 10/05/2020 9:54 PM BLOG WRITER Sexual Orientation Straight 10/05/2020 9: 54 PM BLOG WRITER documented as of this encounter Miscellaneous Notes * Telephone Encounter - Rocio Mccarthy MD - 09/15/2023 3:30 PM BLOG WRITER Per VIJAY guidelines; Typically TSH upper reference [...] defined through assessment of local population data provider service representative of a health care provider???s practice. WRITER documented in this encounter Plan of Treatment Not on file documented as of this encounter Visit Diagnoses Not on filedocumented in this encounter Additional Health Concerns Assessment Noted Time PHQ-9 Depression Total Score: 11 06/21/ 023 10:04 AM CDT documented as of this encounter Care Teams Dinking Machine Operator Relationship Specialty Start Date End Date Billie Guadarrama PCP - General 12/17/19 Rocio Mccarthy MD [address] [place] [address] Assigned Endocrinology Provider 04/24/22 Erica Tristan MD [address] [place], [place] [address] Assigned OBGYN Provider 08/06/23 documented as of this encounter
--- OUTSIDE RECORDS SUMMARY | 2024-05-26 10:37 | XMS_ITS | Referral Summary ---
Author Organization [place] Address [address] [place] [address] Care Team Providers Care Gift Wrapper Name Role Phone Billie Guadarrama Primary Care Provider Rocio Mccarthy MD Unavailable [phone] Erica Tristan MD Unavailable Allergies Active Allergy Reactions Criticality Noted Date [...] 09/20/2002, 8,1997,1996 DTP-Hib 1997 DTaP, Unspecified 04/06/2010 [id number] Novel Flu 12/23/2009 HEPATITIS A (PEDS 12M-18Y) [...] Sex Assigned at Female 10/05/2020 9:54 PM FACILITY MAINTENANCE SUPERVISOR Gender Identity Female 10/05/2020 9:54 PM FACILITY MAINTENANCE SUPERVISOR Sexual Orientation Straight 10/05/2020 9: 54 PM FACILITY MAINTENANCE SUPERVISOR Last Filed Vital Signs Vital Sign Reading Time Taken Comments Blood Pressure 114/57 11/18/2023 10:26 AM FACILITY MAINTENANCE SUPERVISOR Pulse 99 11/18/2023 10:26 AM FACILITY MAINTENANCE SUPERVISOR Temperature 36.6 ??C (97.9 ??F) 10/20/2023 7:18 AM CS T Respiratory Rate 16 10/20/2023 7:18 AM FACILITY MAINTENANCE SUPERVISOR Oxygen Saturation 98% 11/04/2023 3:10 PM FACILITY MAINTENANCE SUPERVISOR Inhaled Oxygen Concentration - - Weight 114.8 kg (253 lb) 10/19/2023 12:22 PM FACILITY MAINTENANCE SUPERVISOR Height 165.1 cm (5' 5) 10/19/2023 12:22 PM FACILITY MAINTENANCE SUPERVISOR Body Mass Index 42.1 10/19/2023 12:22 PM FACILITY MAINTENANCE SUPERVISOR Plan of Treatment Not on file Procedures Procedure Name Priority Date/Time Associated Diagnosis Comments TSH Routine 02/13/2024 2:02 PM CDT 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 CHLAMYDIA TRACHOMATIS/NEISSERI A GONORRHOEAE BY PCR STAT 05/25/2021 6:45 PM CDT HIV 1&2 ANTIBODY (EXTERNAL RESULT) Routine 12/04/2020 12:00 AM FACILITY MAINTENANCE SUPERVISOR from Last 3 Months or Most Recently Relevant to Health Maintenance Results * (ABNORMAL) TSH (02/13/2024 2:02 PM CDT) TSH 0.01(L) 0.30 - 4.20 uIU/mL 02/14/2024 12:34 AM CDT [facility] Blood BLOOD SPECIMEN / Unknown Venipuncture / Unknown 02/13/2024 2:02 PM CDT 02/13/2024 2:02 PM CDT Rocio Mccarthy MD LAB - BLOOD ORDER [place] [address] [facility], [address] [place] [address] * Chlamydia trachomatis/Neisseria gonorrhoeae by PCR (05/25/2021 6:45 PM CDT) Chlamydia Trachomatis Negative Negative 05/26/2021 11:22 AM CDT [facility] Comment: Negative for C. trachomatis rRNA by compotype operator mediated amplification. A negative result by compotype operator mediated amplification does not preclude the presence of infection because results are dependent on proper and adequate collection, absence of inhibitors and sufficient rRNA to be detected. Neisseria gonorrhoeae Negative Negative 05/26/2021 11:22 AM CDT [facility] Comment:Negative for N. gono rrhoeae rRNA by compotype operator mediated amplification. A negative result by compotype operator mediated amplification does not preclude the presence of C. trachomatis infection because results are dependent on proper and adequate collection, absence of inhibitors and sufficient rRNA to be detected. Swab CERVIX UTERI STRUCTURE / Unknown Non-blood Collection / Unknown 05/25/2021 6:45 PM CDT 05/25/2021 7:17 PM CDT Jaimie Clinton MD LAB - MICRO GEN ERAL ORDERABLES [facility] ([facility]) [address] [facility], [address] [place] [address], [facility] [phone] * HIV-1 Antibody (External Result) (12/04/2020 12:00 AM FACILITY MAINTENANCE SUPERVISOR) HIV 1&2 Antibody (External) Negative Nonreactive EXTERNAL LAB 12/04/2020 Patient Reported LAB - HIM EXTERNAL R ESULT EXTERNAL LAB External Lab from Last 3 Months or Most Recently Relevant to Health Maintenance Advance Directives For more information, please contact: [phone] * Full Code (Latest Code Status on [...] patie nt/ legal decision maker Care Teams Gift Wrapper Relationship Specialty Start Date End Date Billie Guadarrama PCP - General 12/17/19 Rocio Mccarthy MD [address] [place], [place] [address] Assigned Endocrinology Provider 04/24/22 Erica Tristan MD [address] [place], [place] [address] Assigned OBGYN Provider 08/06/23
--- OUTSIDE RECORDS SUMMARY | 2024-05-26 10:38 | XMS_ITS | Encounter Summary ---
Author Organization [place] Address [address] [place] [address]. [place] [address] Care Team Providers Care Slab Polisher Name Role Phone Billie Guadarrama Primary Care Provider [phone] Rocio Mccarthy MD Unavailable [phone] Anthony Shaffer MD Unavailable Rocio Mccarthy MD Unavailable [phone] Erica Tristan MD Unavailable [phone] Reason for Visit * Reason Onset Date Comments MyChart Communication 10/05/2020 Encounter Details Date Type Department Care Team (Latest Contact Info) Description 10/05/2020 MyC Medical Advice [facility] [address] [facility] [address] [place] [address] Rocio Mccarthy MD [address] [place] [address] MyChart Communication Social History Tobacco [...] Assigned at Female 10/05/2020 9:54 PM ASSISTANT AT SURGERY Gender Identity Female 10/05/2020 9:54 PM ASSISTANT AT SURGERY Sexual Orientation Straight 10/05/2020 9: 54 PM ASSISTANT AT SURGERY COVID-19 Exposure Response Date Recorded In the last month, have you been in contact with someone who was confirmed or suspected to have Coronavirus / COVID-19? No / Unsure 10/08/2020 8:54 AM ASSISTANT AT SURGERY documented as of this encounter Miscellaneous Notes * Telephone Encounter - Janis Kendrick RN - 10/06/2020 3:51 PM CST My chart message sent by patient. My chart message sent to patient. STANT AT SURGERY documented in this encounter Plan of Treatment Not on file documented as of this encounter Visit Diagnoses Not on filedocumented in this encounter Care Teams Slab Polisher Relationship Specialty Start Date End Date Billie Guadarrama PCP - General 12/17/19 Rocio Mccarthy MD [address] [address] [place], [place] [address] Assigned Endocrinology Provider 08/01/20 11/28/21 Anthony Shaffer MD [address] [place] [id number] Assigned OBGYN Provider 05/10/21 Rocio Mccarthy MD [address] [place], [place] [address] Assigned Endocrinology Provider 04/24/22 Erica Tristan MD [address] [place], [place] [id number] Assigned OBGYN Provider 08/06/23 documented as of this encounter
--- OUTSIDE RECORDS SUMMARY | 2024-05-26 10:38 | XMS_ITS | Encounter Summary ---
Author Organization [place] Address [address] [place] [address]. [place] [address] Care Team Providers Care Home Health Provider Name Role Phone Billie Guadarrama Primary Care Provider Rocio Mccarthy MD Unavailable [phone] Anthony Shaffer MD Unavailable [phone] Rocio Mccarthy MD Unavailable [phone] Erica Tristan MD Unavailable [phone] Encounter Details Date Type Department Care Team (Late st Contact Info) Description 06/08/2021 MyC Medical Advice [facility] [address] [facility] [address] [place] [address] Chelita Harrell, [facility] Social History Tobacco Use Types Packs/Day [...] Sex Assigned at Female 10/05/2020 9:54 PM EXAMINATION SUPERVISOR Gender Identity Female 10/05/2020 9:54 PM EXAMINATION SUPERVISOR Sexual Orientation Straight 10/05/2020 9: 54 PM EXAMINATION SUPERVISOR COVID-19 Exposure Response Date Recorded In the last month, have you been in contact with someone who was confirmed or suspected to have Coronavirus / COVID-19? No / Unsure 06/04/2021 4:39 PM CDT documented as of this encounter Plan of Treatment Not on file documented as of this encounter Visit Diagnoses Not on filedocumented in this encounter Care Teams Home Health Provider Relationship Specialty Start Date End Date Billie Guadarrmaa PCP - General 12/17/19 Rocio Mccarthy MD [address] [place], [place] [address] Assigned Endocrinology Provider 08/01/20 11/28/21 Anthony Shaffer MD [address] [place], [place] [id number] Assigned OBGYN Provider 05/10/21 Rocio Mccarthy MD [address] [place], [place] [address] Assigned Endocrinology Provider 04/24/22 Erica Tristan MD [address] [place], [place] [id number] Assigned OBGYN Provider 08/06/23 documented as of this encounter
--- OUTSIDE RECORDS SUMMARY | 2024-05-26 10:38 | XMS_ITS | Encounter Summary ---
Author Organization [place] Address [address] [place] [address]. [place] [address] Care Team Providers Care Housekeeping Worker Name Role Phone Billie Guadarrama Primary Care Provider Anthony Shaffer MD Unavailable [phone] Rocio Mccarthy MD Unavailable [phone] Erica Tristan MD Unavailable [phone] Encounter Details Date Type Department Care Team (Late st Contact Info) Description 01/06/2022 MyC Medical Advice [address] [phone] Jina Harrell V, RN Social History Tobacco [...] Sex Assigned at Female 10/05/2020 9:54 PM SAFETY INSTRUCTOR Gender Identity Female 10/05/2020 9:54 PM SAFETY INSTRUCTOR Sexual Orientation Straight 10/05/2020 9: 54 PM SAFETY INSTRUCTOR COVID-19 Exposure Response Date Recorded In the last month, have you been in contact with someone who was confirmed or suspected to have Coronavirus / COVID-19? No / Unsure 01/05/2022 1:29 PM CDT documented as of this encounter Plan of Treatment Not on file documented as of this encounter Visit Diagnoses Not on filedocumented in this encounter Care Teams Housekeeping Worker Relationship Specialty Start Date End Date Billie Guadarrama PCP - General 12/17/19 Anthony Shaffer MD [address] [place], [place] [address] Assigned OBGYN Provider 05/10/21 Rocio Mccarthy MD [address] [place] [address] Assigned Endocrinology Provider 04/24/22 Erica Tristan MD [address] [place], [place] [address] Assigned OBGYN Provider 08/06/23 documented as of this encounter
--- OUTSIDE RECORDS SUMMARY | 2024-05-26 10:38 | XMS_ITS | Encounter Summary ---
Author Organization [place] Address [address] [place] [address]. [place] [address] Care Team Providers Care Bow Tacker Name Role Phone Billie Guadarrama Primary Care Provider [phone] Rocio Mccarthy MD Unavailable [phone] Anthony Shaffer MD Unavailable Rocio Mccarthy MD Unavailable [phone] Erica Tristan MD Unavailable [phone] Reason for Visit * Reason Onset Date Comments MyChart Communication 06/12/2020 Encounter Details Date Type Department Care Team (Latest Contact Info) Description 06/12/2020 MyC Medical Advice [facility] [address] [facility] [address] [place] [address] Rocio Mccarthy MD [address] [place] [address] MyChart Communication Social History Tobacco [...] Sex Assigned at Female 10/05/2020 9:54 PM INVESTMENT PROFESSIONAL Gender Identity Female 10/05/2020 9:54 PM INVESTMENT PROFESSIONAL Sexual Orientation Straight 10/05/2020 9: 54 PM INVESTMENT PROFESSIONAL COVID-19 Exposure Response Date Recorded In the last month, have you been in contact with someone who was confirmed or suspected to have Coronavirus / COVID-19? No / Unsure 05/29/2020 2:44 PM CDT documented as of this encounter Miscellaneous Notes * Telephone Encounter - Angelic Cavazos RN - 06/12/2020 9:07 AM CDT Please see [facility] message and advise. Thank you. documented in this encounter Plan of Treatment Not on file documented as of this encounter Visit Diagnoses Not on filedocumented in this encounter Care Teams Bow Tacker Relationship Specialty Start Date End Date Billie Guadarrama PCP - General 12/17/19 Rocio Mccarthy MD [address] [place] [address] Assigned Endocrinology Provider 08/01/20 11/28/21 Anthony Shaffer MD [address] [address] Assigned OBGYN Provider 05/10/21 Rocio Mccarthy MD [address] [place] [address] 200 [place], [place] [address] Assigned Endocrinology Provider 04/24/22 Erica Tristan MD [address] [place], [place] [address] Assigned OBGYN Provider 08/06/23 documented as of this encounter
--- OUTSIDE RECORDS SUMMARY | 2024-05-26 10:38 | XMS_ITS | Encounter Summary ---
Author Organization [place] Address [address] [place] [address]. [place] [address] Care Team Providers Care Recreational Therapy Aide Name Role Phone Billie Guadarrama Primary Care Provider [phone] Rocio Mccarthy MD Unavailable [phone] Erica Tristan MD Unavailable [phone] Encounter Details Date Type Department Care Team (Late st Contact Info) Description 05/31/2022 MyC Medical Advice [facility] [address] [facility] [address] [place] [address] Rocio Mccarthy MD [address] [place] [address] Social History Tobacco Use Types [...] Sex Assigned at Female 10/05/2020 9:54 PM PNEUMATIC DEICER INSPECTOR Gender Identity Female 10/05/2020 9:54 PM PNEUMATIC DEICER INSPECTOR Sexual Orientation Straight 10/05/2020 9: 54 PM PNEUMATIC DEICER INSPECTOR documented as of this encounter Miscellaneous [...] on filedocumented in this encounter Care Teams Recreational Therapy Aide Relationship Specialty Start Date End Date Billie Guadarrama PCP - General 12/17/19 Rocio Mccarthy MD [address] [place] [address] Assigned Endocrinology Provider 04/24/22 Erica Tristan MD [address] [place] [address] Assigned OBGYN Provider 08/06/23 documented as of this encounter
--- OUTSIDE RECORDS SUMMARY | 2024-05-26 10:38 | XMS_ITS | Encounter Summary ---
Author Organization [place] Address [address] [place] [address]. [place] [address] Care Team Providers Care Senior Microsoft Net Developer Name Role Phone Billie Guadarrama Primary Care Provider [phone] Anthony Shaffer MD Unavailable [phone] Rocio Mccarthy MD Unavailable [phone] Erica Tristan MD Unavailable [phone] Encounter Details Date Type Department Care Team (Late st Contact Info) Description 04/19/2022 MyC Medical Advice [address] [phone] Jina Harrell V, RN Social History Tobacco [...] Sex Assigned at Female 10/05/2020 9:54 PM NITROCELLULOSE MAKER Gender Identity Female 10/05/2020 9:54 PM NITROCELLULOSE MAKER Sexual Orientation Straight 10/05/2020 9: 54 PM NITROCELLULOSE MAKER COVID-19 Exposure Response Date Recorded In the last 10 days, have niru u been in contact with someone who was confirmed or suspected to have Coronavirus/COVID-19? No / Unsure 04/05/2022 11:57 AM CDT documented as of this encounter Plan of Treatment Not on file documented as of this encounter Visit Diagnoses Not on filedocumented in this encounter Care Teams Senior Microsoft Net Developer Relationship Specialty Start Date End Date Billie Guadarrama PCP - General 12/17/19 Anthony Shaffer MD [address] [place], [place] [phone] Assigned OBGYN Provider 05/10/21 Rocio Mccarthy MD [address] [place], [place] [address] Assigned Endocrinology Provider 04/24/22 Erica Tristan MD [address] [place], [place] [phone] Assigned OBGYN Provider 08/06/23 documented as of this encounter
--- OUTSIDE RECORDS SUMMARY | 2024-05-26 10:38 | XMS_ITS | Encounter Summary ---
Author Organization [place] Address [address] [place] [address]. [place] [address] Care Team Providers Care Pill Maker Name Role Phone Tucker Michel MD Primary Care Provider [phone] Frw, None Primary Care Provider Unavailabl Billie Jensen Primary Care Provider [phone] Rocio Mccarthy MD Unavailable Anthony Shaffre MD Unavailable [phone] Rocio Mccarthy MD Unavailable [phone] Erica Tristan MD Unavailable [phone] Reason for Visit * Reason Comments Abstract Encounter Details Date Type Department Care Team (Late st Contact Info) Description 05/22/2001 Abstract [facility] [place] Medical Records [address] [place] [address] Eyeglass Inspector, KUmair Social History Tobacco Use Types Packs/Day Years Used Date Smoking Tobacco: Never Assessed Comments:NO 2ND HAND SMOKE A T HOME Alcohol Use Standard Drinks/Week Comments Not Asked 0 (1 standard drink = 0.6 oz pur e alcohol) Sex and Gender Information Value Date Recorded Sex Assigned at Female 10/05/2020 9:54 PM FOREST PRODUCTS TEACHER Gender Identity Female 10/05/2020 9:54 PM FOREST PRODUCTS TEACHER Sexual Orientation Straight 10/05/2020 9: 54 PM FOREST PRODUCTS TEACHER documented as of this encounter Plan of Treatment Not on file documented as of this encounter Visit Diagnoses Not on filedocumented in this encounter Care Teams Pill Maker Relationship Specialty Start Date End Date Tucker Michel MD [facility] [place] [address] [facility] [address] [place] [address] PCP - General 11/02/00 02/05/13 Frw, None PCP - General Family Practice 02/06/13 06/09/17 Billie Guadarrama PCP - General 12/17/19 Rocio Mccarthy MD [address] [place] [address] Assigned Endocrinology Provider 08/01/20 11/28/21 Anthony Shaffer MD [address] [place] [address] Assigned OBGYN Provider 05/10/21 Rocio Mccarthy MD [address] [place] [address] Assigned Endocrinology Provider 04/24/22 Erica Tristan MD [address] [place] [address] Assigned OBGYN Provider 08/06/23 documented as of this encounter
--- OUTSIDE RECORDS SUMMARY | 2024-05-26 10:38 | XMS_ITS | Encounter Summary ---
Author Organization [facility] Address [address] [place] [address]. 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 [address] [place] [address] Referral ID Status Reason Start Date Expiration Date Visits Re quested Visits Authorized [id number] Closed 06/03/2022 06/03/2023 1 1 Reason for Visit * Reason Onset Date Comments Call Back 06/01/2022 Encounter Details Date Type Department Care Team (Late st Contact Info) Description 06/01/2022 Telephone [facility] [address] [place] [address] Rocio Mccarthy MD [address] [place], [place] [address] Call Back Social History Tobacco Use Types [...] Sex Assigned at Female 10/05/2020 9:54 PM BLEACH RANGE OPERATOR Gender Identity Female 10/05/2020 9:54 PM BLEACH RANGE OPERATOR Sexual Orientation Straight 10/05/2020 9: 54 PM BLEACH RANGE OPERATOR documented as of this encounter Miscellaneous [...] Sharmin Peacock - 06/01/2022 10:21 AM CDT [facility] Phone Message May a detailed [...] thyroiditis documented in this encounter Care Teams Rn First Assistant Relationship Specialty Start Date End Date Chiara Billie PCP - General 12/17/19 Rocio Mccarthy MD [address] [place] [address] Assigned Endocrinology Provider 04/24/22 Erica Tristan MD [address] [place], [place] [address] Assigned OBGYN Provider 08/06/23 documented as of this encounter
--- OUTSIDE RECORDS SUMMARY | 2024-05-26 10:38 | XMS_ITS | Encounter Summary ---
Author Organization [facility] Address [address] [place] [address]. [place] [address] Care Team Providers Care Glaze Handler Name Role Phone Billie Guadarrama Primary Care Provider [phone] Rocio Mccarthy MD Unavailable [phone] Erica Tristan MD Unavailable [phone] Encounter Details Date Type Department Care Team (Late st Contact Info) Description 03/23/2023 MyC Medical Advice [facility] [address] [facility] [address] [place] [address] Rocio Mccarthy MD [address] [place] [address] Social History Tobacco Use Types [...] Sex Assigned at Female 10/05/2020 9:54 PM ARMOURED CAR ESCORT Gender Identity Female 10/05/2020 9:54 PM ARMOURED CAR ESCORT Sexual Orientation Straight 10/05/2020 9: 54 PM ARMOURED CAR ESCORT documented as of this encounter Miscellaneous Notes * Telephone Encounter - Rocio Mccarthy MD - 03/28/2023 4:49 PM CDT Noted low TSH. Please place orders for TSH, Free T4 and T3 levels. Furhter work up based on that. documented in this encounter Plan of Treatment Not on file documented as of this encounter Visit Diagnoses Not on filedocumented in this encounter Care Teams Glaze Handler Relationship Specialty Start Date End Date Billie Guadarrama PCP - General 12/17/19 Rocio Mccarthy MD [address] [place], [place] [address] Assigned Endocrinology Provider 04/24/22 Erica Tristan MD [address] [place], [place] [address] Assigned OBGYN Provider 08/06/23 documented as of this encounter
--- OUTSIDE RECORDS SUMMARY | 2024-05-26 10:38 | XMS_ITS | Encounter Summary ---
Author Organization [facility] Address [address] [place] [address]. [place] [address] Care Team Providers Care Skip Hoist Engineer Name Role Phone Billie Guadarrama Primary Care Provider [phone] Rocio Mccarthy MD Unavailable Anthony Shaffer MD Unavailable [phone] Rocio Mccarthy MD Unavailable [phone] Erica Tristan MD Unavailable [phone] Encounter Details Date Type Department Care Team (Latest Contact Info) Description 11/09/2021 MyC Medical Advice [facility] [address] [facility] [address] [place] [address] Rocio Mccarthy MD [address] [place] [address] 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 [...] Sex Assigned at Female 10/05/2020 9:54 PM COMBINATION OPERATOR Gender Identity Female 10/05/2020 9:54 PM COMBINATION OPERATOR Sexual Orientation Straight 10/05/2020 9: 54 PM COMBINATION OPERATOR documented as of this encounter Plan of Treatment Not on file documented as of this encounter Results * (ABNORMAL) T3 Free (11/18/2021 12:41 PM COMBINATION OPERATOR) T3 Free 1.5(L) 2.3 - 4.2 pg/mL 11/18/2021 6:34 PM COMBINATION OPERATOR [facility] Blood VENOUS BLOOD / Unknown Venipuncture / Unknown 11/18/2021 12:41 PM COMBINATION OPERATOR 11/18/2021 12:41 PM COMBINATION OPERATOR Rocio Mccarthy MD LAB - BLOOD ORDER [facility] [address] [place] [address], [address] [place] [address], [facility] [phone] * (ABNORMAL) T4 free (11/18/2021 12:41 PM COMBINATION OPERATOR) Free T4 0.64(L) 0.76 - 1.46 ng/dL 11/18/2021 7:16 PM COMBINATION OPERATOR [facility] Blood VENOUS BLOOD / Unknown Venipuncture / Unknown 11/18/2021 12:41 PM COMBINATION OPERATOR 11/18/2021 12:41 PM COMBINATION OPERATOR Rocio Mccarthy MD LAB - BLOOD ORDER [facility] [address] Lab (no room number, 1st floor of clinic) [place] [address], [place] [phone] * (ABNORMAL) TSH (11/18/2021 12:41 PM COMBINATION OPERATOR) TSH 104.91(H) 0.40 - 4.00 mU/L 11/18/2021 8:05 PM COMBINATION OPERATOR [facility] Blood VENOUS BLOOD / Unknown Venipuncture / Unknown 11/18/2021 12:41 PM COMBINATION OPERATOR 11/18/2021 12:41 PM COMBINATION OPERATOR Rocio Mccarthy MD LAB - BLOOD ORDER [facility] [address] Lab (no room number, 1st floor of clinic) [place] [address], [facility] [phone] * Thyroglobulin and Antibody Reflex (11/18/2021 12:41 PM COMBINATION OPERATOR) Thyroglobulin Antibody <20 <40 IU/mL 11/19/2021 1:39 PM COMBINATION OPERATOR [facility]PROT/END O Blood VENOUS BLOOD / Unknown Venipuncture / Unknown 11/18/2021 12:41 PM COMBINATION OPERATOR 11/18/2021 12:41 PM COMBINATION OPERATOR Rocio Mccarthy MD LAB - BLOOD ORDER [facility]PROT/ENDO [facility]Prot/Endo [address] [facility], [address] [address], [facility] [phone] * T3 reverse (11/18/2021 12:41 PM COMBINATION OPERATOR) T3, Reverse ng/dL 10.3 9.0 - 27.0 ng/dL 11/23/2021 4:48 PM COMBINATION OPERATOR [employer] Comment: INTERPRETIVE INFORMATION: Triiodothyronine, Reverse - LC-MS/MS This test was developed and its performance characteristics determined by [facility]. It has not been cleared or approved by the [place] Food and Drug Administration. This test was performed in a CLIA certified laboratory and is intended for clinical purposes. 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- Primary documented in this encounter Care Teams Skip Hoist Engineer Relationship Specialty Start Date End Date Billie Guadarrama PCP - General 12/17/19 Rocio Mccarthy MD [address] [place] [address] Assigned Endocrinology Provider 08/01/20 11/28/21 Anthony Shaffer MD [address] [place] [address] Assigned OBGYN Provider 05/10/21 Rocio Mccarthy MD [address] [place] [address] Assigned Endocrinology Provider 04/24/22 Erica Tristan MD [address] [place], [place] [address] Assigned OBGYN Provider 08/06/23 documented as of this encounter
--- OUTSIDE RECORDS SUMMARY | 2024-05-26 10:38 | XMS_ITS | Encounter Summary ---
Author Organization [facility] Address [address] [place] [address]. 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 I put her down for 06/21 at 10:30 for a video visit. Maritza Harrell CMA [facility] [phone] * Telephone Encounter - Chelita Harrell CMA - 06/08/2023 8:50 AM CDT Message sent via [employer]. Maritza Harrell CMA [facility] [phone] * Telephone Encounter - Nahed Woodruff - [...] Nahed Woodruff - 05/31/2023 11:28 AM CDT .- lmtcb x1 * Telephone Encounter - Ramya Lugo RN - 05/30/2023 1:27 PM CDT Please advise if okay to add T3 and free T3 per pt request. * Telephone Encounter - Rocio Mccatrhy MD - 05/30/2023 1:24 PM CDT + [...] LAB - BLOOD ORDER 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
--- OUTSIDE RECORDS SUMMARY | 2024-05-26 10:38 | XMS_ITS | Encounter Summary ---
Author Organization [facility] Address [address] [place] [address]. 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 [...] Sex Assigned at Female 10/05/2020 9:54 PM SYSTEM CONFIGURATION SPECIALIST Gender Identity Female 10/05/2020 9:54 PM SYSTEM CONFIGURATION SPECIALIST Sexual Orientation Straight 10/05/2020 9: 54 PM SYSTEM CONFIGURATION SPECIALIST COVID-19 Exposure Response Date Recorded In [...] Primary documented in this encounter Care Teams Associate Professor Of Engineering Relationship Specialty Start Date End Date Billie Guadarrama PCP - General 12/17/19 Rocio Mccarthy MD [address] [place], [place] [address] Assigned Endocrinology Provider 04/24/22 Erica Tristan MD [address] [place], [place] [address] Assigned OBGYN Provider 08/06/23 documented as of this encounter
--- OUTSIDE RECORDS SUMMARY | 2024-05-26 10:38 | XMS_ITS | Encounter Summary ---
Author Organization [facility] Address [address] [place] [address]. [place] [address] Care Team Providers Care Electronics Research Engineer Name Role Phone Billie Guadarrama Primary Care Provider Anthony Shaffer MD Unavailable [phone] Rocio Mccarthy MD Unavailable [phone] Erica Tristan MD Unavailable [phone] Encounter Details Date Type Department Care Team (Late st Contact Info) Description 03/31/2022 MyC Medical Advice [facility] [address] [place] [address] Rocio Mccarthy MD [address] [place] [address] Social History Tobacco Use Types [...] Sex Assigned at Female 10/05/2020 9:54 PM SIGNAL TIMER Gender Identity Female 10/05/2020 9:54 PM SIGNAL TIMER Sexual Orientation Straight 10/05/2020 9: 54 PM SIGNAL TIMER documented as of this encounter Miscellaneous Notes * Telephone Encounter - Jina Harrell RN - 04/01/2022 8:21 AM CDT Okay to use ANGÉLICA spot documented in this encounter Plan of Treatment Not on file documented as of this encounter Visit Diagnoses Not on filedocumented in this encounter Care Teams Electronics Research Engineer Relationship Specialty Start Date End Date Billie Guadarrama PCP - General 12/17/19 Anthony Shaffer MD [address] [place], [place] [address] Assigned OBGYN Provider 05/10/21 Rocio Mccarthy MD [address] [place], [place] [address] Assigned Endocrinology Provider 04/24/22 Erica Tristan MD [address] [place], [place] [address] Assigned OBGYN Provider 08/06/23 documented as of this encounter
--- OUTSIDE RECORDS SUMMARY | 2024-05-26 10:38 | XMS_ITS | Encounter Summary ---
Author Organization [facility] Address [address] [place] [address]. [place] [address] Care Team Providers Care Radiotelephone Operator Name Role Phone Billie Guadarrama Primary Care Provider Rocio Mccarthy MD Unavailable Anthony Shaffer MD Unavailable Rocio Mccarthy MD Unavailable Erica Tristan MD Unavailable [phone] Encounter Details Date Type Department Care Team (Late st Contact Info) Description 08/01/2020 MyC Medical Advice [facility] [address] [place] [address] Rocio Mccarthy MD [address] [place] [address] Social History Tobacco Use [...] Assigned at Female 10/05/2020 9:54 PM SUPERVISOR ELECTROLYTIC TINNING Gender Identity Female 10/05/2020 9:54 PM SUPERVISOR ELECTROLYTIC TINNING Sexual Orientation Straight 10/05/2020 9: 54 PM SUPERVISOR ELECTROLYTIC TINNING documented as of this encounter Miscellaneous Notes * Telephone Encounter - Angelic Cavazos RN - 08/01/2020 1:21 PM CDT Please see MyChart message, does patient need to see derm? Please advise, Thank you. documented in this encounter Plan of Treatment Not on file documented as of this encounter Visit Diagnoses Not on filedocumented in this encounter Care Teams Radiotelephone Operator Relationship Specialty Start Date End Date SelinBillie davis PCP - General 12/17/19 Rocio Mccarthy MD [address] [place] [address] Assigned Endocrinology Provider 08/01/20 11/28/21 Anthony Shaffer MD [address] [place] [address] Assigned OBGYN Provider 05/10/21 Rocio Mccarthy MD [address] [place] [address] Assigned Endocrinology Provider 04/24/22 Erica Tristan MD [address] [place], [place] [address] Assigned OBGYN Provider 08/06/23 documented as of this encounter
== END 2024-05-26 10:23 | disposition home or self-care (01) ==
LOC: NFLDUCREF 10:35
PROVIDERS: PCP Family Medicine; Visit Provider Nurse Practitioner Family
DX: J02.9 Acute pharyngitis, unspecified (principal); B95.4 Other streptococcus as the cause of diseases classified elsewhere
CPT/HCPCS: 87070; 87077; 87186

== ENCOUNTER 2024-09-18 17:15 | Outpatient (CLI) | payer MEDICAID, SELFPAY ==
--- OUTSIDE RECORDS SUMMARY | 2024-09-18 17:20 | XMS_ITS | Encounter Summary ---
Author Organization [facility] Address [address] [place] [address]. [place] [address] Care Team Providers Care English Composition Instructor Name Role Phone Billie Guadarrama Primary Care Provider Rocio Mccarthy MD Unavailable [phone] Erica Tristan MD Unavailable [phone] Encounter Details Date Type Department Care Team (Latest Contact Info) Description 06/25/2024 Travel Social History Tobacco Use Types Packs/Day [...] Help Needed Not on file 07/12 Comments No Sex and Gender Information Value Date Recorded Sex Assigned at Female 10/05/2020 9:54 PM SANITIZER Legal Sex Female 4:15 AM SANITIZER Gender Identity Female 10/05/2020 9:54 PM SANITIZER Sexual Orientation Straight 10/05/2020 9: 54 PM SANITIZER documented as of this encounter Plan of Treatment Upcoming Encounters Date Type Department Care Team ( Contact Info) Description 12/31/2024 11:00 AM CDT Virtual Visit [facility] [address] [place] [address] Rocio Mccarthy MD [address] [place] [address] documented as of this encounter Visit Diagnoses Not on filedocumented in this encounter Additional Health Concerns Assessment Noted Time PHQ-9 Depression Total Score: 11 023 10:04 AM CDT documented as of this encounter Care Teams English Composition Instructor Relationship Specialty Start Date End Date Billie Guadarrama PCP - General 12/17/19 Rocio Mccarthy MD [address] [place] [address] Assigned Endocrinology Provider 04/24/22 Erica Tristan MD [address] [place], [place] [address] Assigned OBGYN Provider 08/06/23 documented as of this encounter
--- OUTSIDE RECORDS SUMMARY | 2024-09-18 17:20 | XMS_ITS | Encounter Summary ---
Author Organization [facility] Address [address] [place] [address]. [place] [address] Care Team Providers Care Crane Rigger Name Role Phone Billie Guadarrama Primary Care Provider [phone] Rocio Mccarthy MD Unavailable [phone] Erica Tristan MD Unavailable [phone] Reason for Visit * Reason Onset Date Comments Call Back 06/25/2024 Appointment Encounter Details Date Type Department Care Team (Late st Contact Info) Description 06/25/2024 Telephone [facility] [address] [facility] [address] [place] [address] Rocio Mccarthy MD [address] [place] [address] Call Back (Appointment ) Social History Tobacco Use Types Packs/Day Years [...] Sex Assigned at Female 10/05/2020 9:54 PM QUILL WORKER Legal Sex Female 4:15 AM QUILL WORKER Gender Identity Female 10/05/2020 9:54 PM QUILL WORKER Sexual Orientation Straight 10/05/2020 9: 54 PM QUILL WORKER documented as of this encounter Miscellaneous Notes * Telephone Encounter - Jina Harrell RN - 06/25/2024 2:13 PM CDT See [facility] encounter pt should see PCP. H/o hypothyroidism. Thyroid labs are in place. Please follow up with PCP for neck swelling. If needed , can be seen by endocrinology. Previous thyroid US 2021 was unremarkable. * Telephone Encounter - Little Estrada - 06/25/2024 1:19 PM CDT [facility] Phone Message May a detailed message be left on voicemail: yes Reason for Call: Other: Per pt would like to ask if there is any sooner appt than March 2025? Per ptreally worried about the lump on her neck. Please call pt back to discuss. Thank you! Action Taken: Message routed to: [facility] ENDO Travel Screening: Not Applicable Date of Service: documented in this encounter Plan of Treatment Upcoming Encounters Date Type Department Care Team (Late st Contact Info) Description 12/31/2024 11:00 AM CDT Virtual Visit [facility] [address] [place] [address] Rocio Mccarthy MD [address] [place] [address] documented as of this encounter Visit Diagnoses Not on filedocumented in this encounter Additional Health Concerns Assessment Noted Time PHQ-9 Depression Total Score: 11 023 10:04 AM CDT documented as of this encounter Care Teams Crane Rigger Relationship Specialty Start Date End Date Stortz, Billie PCP - General 12/17/19 Rocio Mccarthy MD [address] [place] [address] Assigned Endocrinology Provider 04/24/22 Erica Tristan MD [address] [facility] [address] [place] [address] Assigned OBGYN Provider 08/06/23 documented as of this encounter
--- OUTSIDE RECORDS SUMMARY | 2024-09-18 17:20 | XMS_ITS | Encounter Summary ---
Author Organization [place] Address [address] [place] [address]. 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 [...] PHQ-2 Answer Date Recorded PHQ-2 Score 4 06/28/2024 Adolescent Education Answer Date Record ed Getting School Help Needed Not on file 07/12 Comments Unknown Sex and Gender Information Value Date Recorded Sex Assigned at Female 10/05/2020 9:54 PM FAMILY SUPPORT SPECIALIST Legal Sex Female 4:15 AM FAMILY SUPPORT SPECIALIST Gender Identity Female 10/05/2020 9:54 PM FAMILY SUPPORT SPECIALIST Sexual Orientation Straight 10/05/2020 9: 54 PM FAMILY SUPPORT SPECIALIST documented as of this encounter Last Filed Vital Signs Vital Sign Reading Time Taken Comments Blood Pressure - - Pulse - - Temperature - - Respiratory Rate - - Oxygen Saturation - - Inhaled Oxygen Concentration - - Weight 111.1 kg (245 lb) 06/28/2024 3:28 PM CDT Height - - Body Mass Index 40.77 10/19/2023 12:22 PM FAMILY SUPPORT SPECIALIST documented in this encounter Patient Instructions * Patient Instructions* Rocio Mccarthy MD - 06/28/2024 3:30 PM CDT [facility] Dr Mccarthy, Endocrinology Department [address] [place] [address] Appointment [phone] [place]: Tuesday - Increase dose of levothyroxine-- Take 212.5 mcg/day (200+12.5) Lab only appointment in 6 weeks Tentative labs and follow-up in 6 months Please make a lab appointment for [...] Progress Notes * Rocio Mccarthy MD - 06/28/2024 3:30 PM CDT THIS IS A VIDEO VISIT: Phone call visit/virtual visit encounter: Name of patient: Altagracia Garcia Date of encounter: 06/28/2024 Time of start of video visit: 3:36 Video started: 3:42 Video ended: 3:51 Provider location: working from home/ [facility] Patient location: patients home. Mode of transmission: video/ [employer] Verbal consent: obtained before starting visit. Pt [...] up hypothyroidism. HPI: Altagracia Garcia is a 29 year old female who presents for the evaluation of : Was requested to see endocrinology by her POTLINE MONITOR from [facility]. Available records, labs and images from outside clinic were personally reviewed. She delivered baby in 12/2023 Gained 15 lbs during and lost 5 lbs after delivery. And gained some back. She is on phentermine through primary care provider Current weight: 260 No longer breast feeding. #1 Hypothyroidism (+TPO): Diagnosed with Duane in 2012 and was started on levothyroxine 100 mcg/day. Currently taking generic 188 mcg/day. On this dose X 02/2024. ( Dose was gradually decreased after ) Takes generic. Reports compliance. Feeling tired. Energy is up and down. H/o fibromyalgia and PCOS. Not sleeping well Thyroid US 05/2022- unremarkable- no discrete thyroid nodules were seen. Palpitations: No Changes to hair or skin: No. Diarrhea/Constipation: No. h/o cholecystectomy. Sometimes constipation Changes in menses: periods are not back yet. S/p TL Dysphagia or Shortness of breath:sometimes Tremors:No Changes in weight: as noted above. Heat or cold intolerance: sometimes cold History of [place] or Amiodarone use:No Head or neck surgery/radiation:No Family History of Thyroid Problems: pgm- thyroid problems. Weight is stable. PMH/PSH: Past Medical History: Diagnosis Date Depressive disorder anxiety & depression; takes medication - venlafaxine Diabetes (H) 03/10/2021 GDM Fibromyalgia 2012 PCOS (polycystic ovarian syndrome) 2012 Thyroid disease hashimotos; takes synthroid Past Surgical History: Procedure Laterality Date ABDOMEN SURGERY 2015 galbladder removed ENT SURGERY 2014 tonsils, adenoids, wisdom teeth DIE MAKER TRIM SURGERY 2018 ovarian cyst removed HEAD & NECK SURGERY [...] HAND SMOKE AT HOME Vaping Use Vaping status: Never Used Substance and Sexual Activity Alcohol use: Never Drug use: Never Sexual activity: Yes Partners: Male control/protection: None Other Topics Concern Not on file Social History Narrative Not on file Social Determinants of Health Financial Resource Strain: Low Risk (10/14/2022) [facility] from [facility], [facility] Financial Resource Strain Difficulty of Paying Living Expenses: 3 Difficulty of Paying Living Expenses: Not on file Food Insecurity: No Food Insecurity (10/14/2022) [facility], [facility] Food Insecurity Worried About Running Out of Food in the Last Year: 1 Transportation Needs: No Transportation Needs (10/14/2022) [facility] from [facility], [facility] Transportation Needs Lack of Transportation (Medical): 1 Physical Activity: Not on file Stress: Not on file Social Connections: Unknown (10/16/2023) Received from [facility], [facility] Social Connections Frequency of Communication with Friends and Family: Not on file Interpersonal Safety: Not on file Housing Stability: Low Risk (10/14/2022) Received from [facility], [facility] Housing Stability Unable to Pay for Housing in the Last Year: 1 MEDICATIONS: has a current medication list which includes the following prescription(s): levothyroxine, phentermine, levothyroxine, nifedipine, nitrofurantoin macrocrystal-monohydrate, vit-fe fumarate-fa, progesterone, and progesterone micronized. ROS ROS: 10 point ROS neg other than the symptoms noted above in the HPI. Physical Exam VS: Wt 111.1 kg (245 lb) BMI 40.77 kg/m?? GENERAL: healthy, alert and no distress [...] appearance well-groomed LABS: TFTs: Latest Ref Rng 06/25/2024 3:34 PM ENDO THYROID LABS-[facility] TSH 0.30 - 4.20 uIU/mL 57.80 (H) Free T3 2.0 - 4.4 pg/mL 1.3 (L) T3, Reverse ng/dL 9.0 - 27.0 ng/dL FREE T4 0.90 - 1.70 ng/dL 0.22 (L) Legend: (H) High (L) Low Thyroid US 04/2020: IMPRESSION: 1. Heterogeneity of [...] the evaluation of hypothyroidism: #1. Hypothyroidism(+TPO): Currently taking generic levothyroxine 188 mcg/day. She reports compliance Also has h/o fibromyalgia and PCOS. Plan: Discussed diagnosis, pathophysiology, management and treatment options of condition with pt. Based on 06/2022 labs increase dose of levothyroxine-- Take 212.5 mcg/day (200+12.5) (06/28/2024) Lab only appointment in 6 weeks Tentative labs and follow-up in 6 months Please make a lab appointment for blood work and follow up clinic appointment in 1 week after that to discuss results. Discussed s/s of hypothyroidism and hyperthyroidism to watch for. The patient indicates understanding of these issues and agrees with the plan. Discussed indications, risks and benefits of all medications prescribed, and answered questions to patient's satisfaction. The longitudinal plan of care for the diagnosis(es)/condition(s) as documented were addressed during this visit. Due to the added complexity in care, I will continue to support Altagracia in the subsequent management and with ongoing continuity of care. All questions were answered. The patient indicates understanding of the above issues and agrees with the plan set forth. Follow-up: As noted in AVS Rocio Mccarthy MD Endocrinology [facility]/[place] CC: Billie Guadarrama documented in this encounter Nursing Notes * Giovanny Kendra - 06/28/2024 3:30 PM CDT Current [place] location: [place] Is the patient currently in the state of [place]? YES Visit mode:VIDEO If the visit is dropped, the patient can be reconnected by: VIDEO VISIT: Text to cell phone: Telephone Information: Will anyone else be joining the visit? NO (If patient encounters technical issues they should call [phone]) How would you like to obtain your AVS? MyChart Are changes needed to the allergy or medication list? No Are refills needed on medications prescribed by this physician? NO Rooming Documentation: Questionnaire(s) completed Reason for visit: Video Visit and RECHECK Kendra Baltazar VVF Depression Response Patient completed the PHQ-9 assessment [...] I personally notified the following: visit provider documented in this encounter Plan of Treatment Upcoming Encounters Date Type Department Care Team (Late st Contact Info) Description 12/31/2024 11:00 AM CDT Virtual Visit [facility] [address] [place] [address] Rocio Mccarthy MD [address] [place], [place] [address] documented as of this encounter Results * (ABNORMAL) TSH (08/13/2024 11:55 AM FAMILY SUPPORT SPECIALIST) [facility] TSH 0.19(L) 0.30 - 4.20 uIU/mL 08/13/2024 10:52 PM FAMILY SUPPORT SPECIALIST [facility] Blood BLOOD SPECIMEN / Unknown Venipuncture / Unknown 08/13/2024 11:55 AM FAMILY SUPPORT SPECIALIST 08/13/2024 11:55 AM FAMILY SUPPORT SPECIALIST us Rocio Mccarthy MD LAB - BLOOD ORDERABLES Fi nal Result [facility] [place] Core Lab [address] [facility], Room [address] [address] * T4 free (08/13/2024 11:55 AM FAMILY SUPPORT SPECIALIST) [facility] Free T4 1.50 0.90 - 1.70 ng/dL 08/13/2024 10:52 PM FAMILY SUPPORT SPECIALIST [facility] Blood BLOOD SPECIMEN / Unknown Venipuncture / Unknown 08/13/2024 11:55 AM FAMILY SUPPORT SPECIALIST 08/13/2024 11:55 AM FAMILY SUPPORT SPECIALIST Rocio Mccarthy MD LAB - BLOOD ORDERABLES Fi nal Result U [facility]ORATORY [facility] [place] [facility] [address] [facility], [address] * T3 Free (08/13/2024 11:55 AM FAMILY SUPPORT SPECIALIST) Pathologist [facility] T3 Free 3.5 2.0 - 4.4 pg/mL 08/13/2024 10:52 PM FAMILY SUPPORT SPECIALIST [facility] Blood BLOOD SPECIMEN / Unknown Venipuncture / Unknown 08/13/2024 11:55 AM FAMILY SUPPORT SPECIALIST 08/13/2024 11:55 AM FAMILY SUPPORT SPECIALIST Rocio Mccarthy MD LAB - BLOOD ORDERABLES Fi nal Result Performing Organization Address City/[facility] Co de Phone Number LABORATORY [facility] Core Lab [address] 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
--- OUTSIDE RECORDS SUMMARY | 2024-09-18 17:20 | XMS_ITS | Referral Summary ---
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) 08/13/2024 Travel 08/13/2024 12:00 PM OWNER/PHOTOGRAPHER Lab [facility] Laboratory [address] [place] [address] 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 08/10/2024 Documentation Only [facility] [address] [place] [phone] Rocio Mccarthy MD 08/09/2024 Travel 07/02/2024 MyC Medical Advice [facility] [address] [place] [phone] Chelita Harrell CMA 06/28/2024 3:30 PM CDT Virtual Visit [facility] [address] [place] [address] Rocio Mccarthy MD 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) 06/26/2024 MyC Medical Advice [facility] [address] [place] [address] Rocio Mccarthy MD 06/25/2024 Travel 06/25/2024 Telephone [facility] [address] [place] [phone] Rocio Mccarthy MD Call Back (Appointment ) 06/25/2024 3:45 PM CDT Lab [facility] [address] [place] [address] 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 2024 MyC Medical Advice [facility] [address] [place] [address] Rocio Mccarthy MD from Last 3 Months Allergies Active Allergy Reactions Criticality Noted Date Comments Drospirenone-Ethinyl Estradiol Headache,Rash Low Oxycodone-Acetaminophen Rash Low 04/09/2020 Medications Vit-Fe Fumarate-FA ( VITAMIN PO) Take by mouth daily Active Progesterone Micronized 10 % CREA 3 Active progesterone (PROMETRIUM) [address] 200 mg vaginally 3 Active NIFEdipine (PROCARDIA) 10 MG capsuleIndicatio ns:Indication for care in labor or delivery Take 1 capsule (10 mg) by mouth every 6 hours 28 capsule 4 Active nitroFURantoin macrocrystal-mon ohydrate (MACROBID) 100 MG capsuleIndicatio ns:Indication for care in labor or delivery Take 1 capsule (100 mg) by mouth 2 times daily 12 capsule 4 Active phentermine (ADIPEX-P) 37.5 MG capsule 1 capsule. 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 labor in third trimester with de livery 05/28/2021 Indication for care in labor or delivery 021 delivery 05/25/2021 Encounter for triage in patient 021 NO ACTIVE PROBLEMS Immunizations Name Administration Dates Next Due Comvax (HIB/HepB) 01/07/1998,1997 DTAP (<7y) 09/20/2002, 8,1997,1996 DTP-Hib 1997 DTaP, Unspecified 04/06/2010 [id number] Novel Flu 12/23/2009 HEPATITIS A (PEDS 12M-18Y) 06/02/2009,07/26/2007 HIB (PRP-T) 01/07/1998,1997,1997 HIB(PRP-OMP)(PedvaxHIB) 09/19/1998,1997 HPV Quadrivalent 10/27/2012,06/26/2012, 1 HepB 01/07/1998,1997,1997 Hepatitis B, Peds 1997 Historical DTP/aP 1997 Influenza (H1N1) 12/23/2009 Influenza (IIV3) PF 07/26/2013, 2,08/26/2011,2009,12/23/2009,07/26/2007,09/21/2006,1 11/06/2004,08/06/2003,07/26/2002 Influenza (prior to 2023) 08/26/2011,12/23/2009 Influenza Vaccine >6 months,quad, PF ,06/22/2018,08/29/2017,2015,10/02/2015,07/19/2014 MMR 09/20/2002,09/19/1998 Meningococcal ACWY (Menveo ) 07/26/2013 OPV, trivalent, live 09/19/1998 Poliovirus, inactivated [...] Sex Assigned at Female 10/05/2020 9:54 PM OWNER/PHOTOGRAPHER Legal Sex Female 4:15 AM OWNER/PHOTOGRAPHER Gender Identity Female 10/05/2020 9:54 PM OWNER/PHOTOGRAPHER Sexual Orientation Straight 10/05/2020 9: 54 PM OWNER/PHOTOGRAPHER Last Filed Vital Signs Vital Sign Reading Time Taken Comments Blood Pressure 114/57 11/18/2023 10:26 AM OWNER/PHOTOGRAPHER Pulse 99 11/18/2023 10:26 AM OWNER/PHOTOGRAPHER Temperature 36.6 C (97.9 F) 10/20/2023 7:18 AM OWNER/PHOTOGRAPHER Respiratory Rate 16 10/20/2023 7:18 AM OWNER/PHOTOGRAPHER Oxygen Saturation 98% 11/04/2023 3:10 PM OWNER/PHOTOGRAPHER Inhaled Oxygen Concentration - - Weight 111.1 kg (245 lb) 06/28/2024 3:28 PM CDT Height 165.1 cm (5' 5) 10/19/2023 12:22 PM OWNER/PHOTOGRAPHER Body Mass Index 40.77 10/19/2023 12:22 PM OWNER/PHOTOGRAPHER Plan of Treatment Upcoming Encounters Date Type Department Care Team (Late st Contact Info) Description 12/31/2024 11:00 AM CDT Virtual Visit [place] [address] [place] [address] Rocio Mccarthy MD [address] [place] [address] Procedures Procedure Name Priority Date/Time Associated Diagnosis Comments TSH Routine 08/13/2024 11:55 AM OWNER/PHOTOGRAPHER 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 T4 FREE Routine 08/13/2024 11:55 AM OWNER/PHOTOGRAPHER 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 T3 FREE Routine 08/13/2024 11:55 AM OWNER/PHOTOGRAPHER 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 T3 FREE Routine 06/25/2024 3:34 PM CDT 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 TSH 0.19(L) 0.30 - 4.20 uIU/mL 08/13/2024 10:52 PM OWNER/PHOTOGRAPHER [facility] Blood BLOOD SPECIMEN / Unknown Venipuncture / Unknown 08/13/2024 11:55 AM OWNER/PHOTOGRAPHER 08/13/2024 11:55 AM OWNER/PHOTOGRAPHER Rocio Mccarthy MD LAB - BLOOD ORDERABLES Fi nal Result LABORATORY [facility] Core Lab [address] [facility], [address] * T4 free (08/13/2024 11:55 AM OWNER/PHOTOGRAPHER) Only the most recent of2 resultswithin the time period is included. Free T4 1.50 0.90 - 1.70 ng/dL 08/13/2024 10:52 PM OWNER/PHOTOGRAPHER U LABORATORY Blood BLOOD SPECIMEN / Unknown Venipuncture / Unknown 08/13/2024 11:55 AM OWNER/PHOTOGRAPHER 08/13/2024 11:55 AM OWNER/PHOTOGRAPHER Rocio Mccarthy MD LAB - BLOOD ORDERABLES Fi nal Result Performing Organization Address City/[facility] de Phone Number LABORATORY [facility] Core Lab [address] [facility], [address] [place] [address] * T3 Free (08/13/2024 11:55 AM OWNER/PHOTOGRAPHER) Only the most recent of2 resultswithin the time period is included. [facility] T3 Free 3.5 2.0 - 4.4 pg/mL 08/13/2024 10:52 PM OWNER/PHOTOGRAPHER U [facility]ORATORY Blood BLOOD SPECIMEN / Unknown Venipuncture / Unknown 08/13/2024 11:55 AM OWNER/PHOTOGRAPHER 08/13/2024 11:55 AM OWNER/PHOTOGRAPHER Rocio Mccarthy MD LAB - BLOOD ORDERABLES Fi nal Result LABORATORY [facility] Core Lab [address] [facility], [address] * Chlamydia trachomatis/Neisseria gonorrhoeae by PCR (05/25/2021 6:45 PM CDT) [facility] Chlamydia Trachomatis Negative Negative 05/26/2021 11:22 AM CDT [facility] Comment: Negative for C. trachomatis rRNA by art therapist mediated amplification. A negative result by art therapist mediated amplification does not preclude the presence of infection because results are dependent on proper and adequate collection, absence of inhibitors and sufficient rRNA to be detected. Neisseria gonorrhoeae Negative Negative 05/26/2021 11:22 AM CDT [facility] Comment:Negative for N. gono rrhoeae rRNA by art therapist mediated amplification. A negative result by art therapist mediated amplification does not preclude the presence of C. trachomatis infection because results are dependent on proper and adequate collection, absence of inhibitors and sufficient rRNA to be detected. Swab CERVIX UTERI STRUCTURE / Unknown Non-blood Collection / Unknown 05/25/2021 6:45 PM CDT 05/25/2021 7:17 PM CDT us Jaimie Clinton MD LAB - MICRO GENERAL ORD ERABLES Final Result [facility] Infectious Diseases Diagnostic Lab (IDDL) [address] [place] [address], [address] [place] [address], [facility] [phone] * HIV-1 Antibody (External Result) (12/04/2020 12:00 AM OWNER/PHOTOGRAPHER) Pathologist [facility] HIV 1&2 Antibody (External) Negative Nonreactive EXTERNAL LAB 12/04/2020 us Patient Reported LAB - HIM EXTERNAL RESULT Final Result EXTERNAL LAB External Lab from Last 3 Months or Most Recently Relevant to Health Maintenance Insurance [facility] PMAP c/[place] [id number] Advance Directives For more information, please contact: [phone] * Full Code (Latest Code Status on [...] patie nt/ legal decision maker Care Teams Director Talent Acquisition Relationship Specialty Start Date End Date Billie Guadarrama PCP - General 12/17/19 Rocio Mccarthy MD [address] [place] [address] Assigned Endocrinology Provider 04/24/22 Erica Tristan MD [address] [place], [place] [id number] Assigned OBGYN Provider 08/06/23
--- OUTSIDE RECORDS SUMMARY | 2024-09-18 17:20 | XMS_ITS | Encounter Summary ---
Author Organization [place] Address [address] [place] [address]. [place] [address] Care Team Providers Care Glass Processing Worker Name Role Phone Billie Guadarrama Primary Care Provider Rocio Mccarthy MD Unavailable [phone] Erica Tristan MD Unavailable [phone] Encounter Details Date Type Department Care Team (Late st Contact Info) Description 07/02/[address] [facility] [address] [facility] [address] [place] [address] Chelita Harrell, [facility] Social History Tobacco Use Types Packs/Day Years [...] Sex Assigned at Female 10/05/2020 9:54 PM TRAFFIC MANAGER Legal Sex Female 4:15 AM TRAFFIC MANAGER Gender Identity Female 10/05/2020 9:54 PM TRAFFIC MANAGER Sexual Orientation Straight 10/05/2020 9: 54 PM TRAFFIC MANAGER documented as of this encounter Plan of Treatment Upcoming Encounters Date Type Department Care Team (Late st Contact Info) Description 12/31/2024 11:00 AM CDT Virtual Visit [facility] [address] [place] [address] Rocio Mccarthy MD [address] [place] [address] documented as of this encounter Visit Diagnoses Not on filedocumented in this encounter Additional Health Concerns Assessment Noted Time PHQ-9 Depression Total Score: 10 024 3:30 PM CDT documented as of this encounter Care Teams Glass Processing Worker Relationship Specialty Start Date End Date Billie Guadarrama PCP - General 12/17/19 Rocio Mccarthy MD [address] [place] [address] Assigned Endocrinology Provider 04/24/22 Erica Tristan MD [address] [facility] [address] [place] [address] Assigned OBGYN Provider 08/06/23 documented as of this encounter
--- OUTSIDE RECORDS SUMMARY | 2024-09-18 17:20 | XMS_ITS | Encounter Summary ---
Author Organization [place] Address [address] [place] [address]. [place] [address] Care Team Providers Care Optical Goods Drilling Machine Operator Name Role Phone Billie Guadarrama Primary Care Provider Rocio Mccarthy MD Unavailable [phone] Erica Tristan MD Unavailable [phone] Encounter Details Date Type Department Care Team (Latest Contact Info) Description 08/13/2024 Travel Social History Tobacco Use Types Packs/Day [...] Sex Assigned at Female 10/05/2020 9:54 PM IS ANALYST Legal Sex Female 4:15 AM IS ANALYST Gender Identity Female 10/05/2020 9:54 PM IS ANALYST Sexual Orientation Straight 10/05/2020 9: 54 PM IS ANALYST documented as of this encounter Plan of Treatment Upcoming Encounters Date Type Department Care Team ( Contact Info) Description 12/31/2024 11:00 AM CDT Virtual Visit [facility] [address] [place] [address] Rocio Mccarthy MD [address] [place] [address] documented as of this encounter Visit Diagnoses Not on filedocumented in this encounter Additional Health Concerns Assessment Noted Time PHQ-9 Depression Total Score: 10 024 3:30 PM CDT documented as of this encounter Care Teams Optical Goods Drilling Machine Operator Relationship Specialty Start Date End Date Billie Guadarrama PCP - General 12/17/19 Rocio Mccarthy MD [address] [place] [address] Assigned Endocrinology Provider 04/24/22 Erica Tristan MD [address] [place], [place] [address] Assigned OBGYN Provider 08/06/23 documented as of this encounter
--- OUTSIDE RECORDS SUMMARY | 2024-09-18 17:20 | XMS_ITS | Encounter Summary ---
Author Organization [place] Address [address] [place] [address]. [place] [address] Care Team Providers Care Launch Steward Name Role Phone Billie Guadarrama Primary Care Provider Rocio Mccarthy MD Unavailable [phone] Erica Tristan MD Unavailable [phone] Encounter Details Date Type Department Care Team (Late st Contact Info) Description 08/10/2024 Documentation Only [facility] [address] [facility] [address] [place] [address] Rocio Mccarthy MD [address] [place] [address] Social History Tobacco Use [...] Sex Assigned at Female 10/05/2020 9:54 PM CENTER DIRECTOR Legal Sex Female 4:15 AM CENTER DIRECTOR Gender Identity Female 10/05/2020 9:54 PM CENTER DIRECTOR Sexual Orientation Straight 10/05/2020 9: 54 PM CENTER DIRECTOR documented as of this encounter Progress Notes * Ana Figueroa - 08/10/2024 10:45 AM CDT Altagracia Garcia has an upcoming lab appointment: Future Appointments Date Time Provider Department Center 08/13/2024 12:00 PM [facility] 12/31/2024 11:00 AM Rocio Mccarthy MD [facility] Patient is scheduled for the following lab(s): TSH, T4 free, T3 free There are orders for this patient with an expected date of 08/28/24. Please change expected date sopatient can be drawn on 08/13/24. Health Maintenance Due Topic ANNUAL REVIEW OF ORDERS HEPATITIS C SCREENING Ana Figueroa documented in this encounter Miscellaneous Notes * Telephone Encounter - Rocio Mccarthy MD - 08/10/2024 11:18 AM CDT Endo staff- can you please take a look into this? Thank you. documented in this encounter Plan of Treatment Upcoming Encounters Date Type Department Care Team (Late st Contact Info) Description 12/31/2024 11:00 AM CDT Virtual Visit [facility] [address] [place] [address] Rocio Mccarthy MD [address] [place] [address] documented as of this encounter Visit Diagnoses Not on filedocumented in this encounter Additional Health Concerns Assessment Noted Time PHQ-9 Depression Total Score: 10 024 3:30 PM CDT documented as of this encounter Care Teams Launch Steward Relationship Specialty Start Date End Date Billie Guadarrama PCP - General 12/17/19 Rocio Mccarthy MD [address] [place] [address] Assigned Endocrinology Provider 04/24/22 Erica Tristan MD [address] [place] [address] Assigned OBGYN Provider 08/06/23 documented as of this encounter
--- OUTSIDE RECORDS SUMMARY | 2024-09-18 17:20 | XMS_ITS | Clinical Summary ---
Author Organization [facility] Address [place], [place] [address] Care Team Providers Care Imaging Administrator Name Role Phone Vasquez Ridley MD Unavailable [phone] Sanjeev Brar MD Unavailable [phone] Billie Guadarrama DO Primary Care Provider [phone] Allergies Active Allergy Reactions Criticality Noted Date Comments Acetaminophen Rash 03/09/2023 Drospirenone-Ethinyl Estradiol Rash,Headache Oxycodone Rash Low 03/09/2023 Oxycodone-Acetaminophen Rash 01/17/2014 Medications nystatin powder (MYCOSTATIN) powderIndication s:Yeast dermatitis USE TOPICALLY TO AFFECTED AREA(S) 2 TO 4 TIMES DAILY DIRECTED 60 g 1 2 Active cholecalciferol (Vitamin D-3) 2,000 unit capsuleIndicatio ns:Vitamin D deficiency Take 1 Capsule (2,000 units) by mouth once daily. 90 Capsule 3 4 Active levothyroxine (SYNTHROID) 200 mcg tablet Take 200 mcg by mouth before breakfast. 4 Active levothyroxine (SYNTHROID) 25 mcg tablet Take 12.5 mcg by mouth before breakfast. To be taken with 200 mcg 4 Active Phentermine HCl 37.5 mg capsule Take 37.5 mg by mouth once daily. 4 Active triamcinolone 0.1 % ointment Apply topically to affected area(s). 3 Active polyethylene glycol-electroly te (GOLYTELY) 236-22.74-6.74 -5.86 gram suspensionIndica tions:Encounter for screening colonoscopy Drink 2 liters (half the bottle) the day before colonoscopy and 2 liters (remaining prep) 6 hours prior to colonoscopy appointment. 4000 mL Active Active Problems Problem Noted Date Diagnosed Date History of colon polyps 08/06/2024 Overview (08/06/2024): Colonoscopy 07/2024 normal, repeat in 5 years ZAINAB (generalized anxiety disorder) 03/22/2017 ADHD, predominantly [...] tube 07/26/2007 Resolved Problems Problem Noted Date Diagnosed Date Resolved Date Pediculus capitis (head louse) 06/07/2007 07/26/2007 Encounters Date Type Department Care Team Description 08/07/2024 Orders Only [facility] [address] [place] [address] Billie Guadarrama, DO 1 scan: (1-Ord) [facility] 08/06/2024 6:11 AM CDT - 08/06/2024 11:59 PM CDT Hospital Encounter Matthew Taveras MD 08/06/2024 Orders Only [facility] [address] [facility] [address] [place] [id number] Matthew Taveras MD <No scans attached> 08/06/2024 Orders Only [facility] [address] [address] Matthew Taveras MD <No scans attached> 08/06/2024 Surgery [facility] [address] [facility] [address] [place] [address] Matthew Taveras MD colonoscopy screening 08/02/2024 9:35 AM CDT Preop Visit [facility] [address] [facility] [place] [address] Billie Guadarrama DO Preoperative Exam (08/06/24 Colonoscopy [facility]) 08/02/2024 Travel 07/31/2024 Telephone [facility] [address] [place] [address] Matthew Taveras MD Appointment Reminder (Colonoscopy on Tuesday08/06/2024 at [facility] ) 07/11/2024 1:30 PM CDT Office Visit [facility] [address] [place] [address] Billie Guadarrama DO Physical (29 year old physical); Menstrual Problem (amenorrhea); Hemorrhoids; Immunization/Injecti on 07/11/2024 Telephone [facility] [address] [place] [address] Matthew Taveras MD Need Meds 07/11/2024 Travel from Last 3 Months Immunizations Name Administration Dates Next Due AMB Influenza, IIV3 (Age >=3 years)(Flu Clinic Only) 08/26/2011,09/08/2010 DTP 09/19/1998,05/09/1998,1997 DTP-HIB 1997 DTaP 09/20/2002 Dtap-5 Pertussis Antigens 1997 HIB PRP-OMP (PedvaxHIB) 09/19/1998,1997 HIB-HepB (Comvax) 01/07/1998,1997 HPV 9 (Gardasil 9) 10/27/2012,06/26/2012, 011 Hepatitis A (Peds) 06/02/2009,07/26/2007 Hepatitis B, Unspecified 01/07/1998,1997,0 1997 Human Papilloma Virus Vaccine 10/27/2012, 012,07/06/2011 INFLUENZA, IIV3 PF (AGE >= 6 MO) 07/11/2024 Inactivated Polio Vaccine 09/20/2002,08/1998,1997,08/27 Influenza A (H1N1), Inactiva dave (Age >=3 Years) 12/23/2009 Influenza Virus, Unspecified 07/26/2013, 06/26/2012,08/26/2011,09/08,12/23/2009,07/26/2007,09/21/2006 ,09/06/2005,08/06/2003 Influenza, IIV3 (Age >=3 years) 07/26/20 13,06/26/2012,12/23/2009,07/26,07/26/2002 Influenza, IIV4 07/07/2023, 3,07/14/2020,08/08,06/22/2018,08/29/2017,07/13/2016 ,10/02/2015,07/19/2014 MENINGOCOCCAL VACCINE 2 VIAL 2MO-55YO (MENVEO) 07/26/2013 MMR 06/28/2021,09/20/2002,09/19/1998 Meningococcal Vaccine (Menactra) 07/26/2013 Oral Polio Vaccine 09/19/1998 RSV, Bivalent Vaccine Recons tituted (Abrysvo 120MCG/0.5mL) 11/03/2023 Td (Age >=7 Years) 09/10/2020 Tdap 10/19/2023,05/11/2021,04/06/2010 Varicella Vaccine 07/26/2007,12/23/1998 Family History Medical History [...] Answer Date Recorded PHQ-2 TOTAL SCORE 4 07/11/2024 Social Connections Answer Date Recorded Do you often feel lonely or isolated from those around you? 0 07/11/2024 Financial Resource Strain Answer Date R ecorded Difficulty of Paying Living Expenses 3 07/11/2024 Difficulty of Paying Living Expenses Not on file 07/11/2024 Food Insecurity Answer Date Recorded Do you worry your food will run out before you are able to buy more? 1 07/11/2024 Transportation Needs Answer Date Record ed Does lack of transportation keep you from medica l appointments? 1 07/11/2024 Does lack of transportation keep you from work, meetings or getting things that you need? 1 07/11/2024 Housing Stability Answer Date Recorded What is your housing situation today? 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 READY WORKER Gender Identity Not on file Sexual Orientation Not on file Obstetrics History Para Term AB IAB SAB Ectopic Multiple Livin g Live Births 3 2 2 0 1 0 1 0 0 2 2 Date Outcome GA Total Labor Labor/2nd/3rd Weight Sex Type Anes PTL Jenny A1 A5 Name Clin SAB 06/26 Term 37w 1d Vag Living Mac 12/10 Term F Vag Living Autymn Last Filed Vital Signs Vital Sign Reading Time Taken Comments Blood Pressure 119/83 08/02/2024 9:42 AM CDT Pulse 88 08/02/2024 9:42 AM CDT Temperature 36.6 C (97.8 F) 05/25/2024 8:25 AM CDT Respiratory Rate 18 10/06/2022 8:41 PM USED CAR MAKE READY WORKER Oxygen Saturation 96% 08/02/2024 9:42 AM CDT Inhaled Oxygen Concentration - - Weight 112.9 kg (249 lb) 08/02/2024 9:42 AM CDT Height 164 cm (5' 4.57) 07/11/2024 1:37 PM CDT Body Mass Index 41.99 07/11/2024 1:37 PM CDT Plan of Treatment Health Maintenance Due Date Last Done Comments HIV for age 15-65 2012 COVID-19 vaccine series ( season) 2024 BMI (ht and wt on same day) for age 18+ 07/11/2025 07/11/2024, 10/14/2022, 07/14/2020, Additional history exists Depression screening for age 12+ 07/11/2025 07/11/2024, 07/11/2024, 01/16/2024, Additional history exists Pap test for age 21-65 01/23/2027 , 01/24/2024, 12/04/2020, Additional history exists Colonoscopy through age 75 08/06/2029 08/06/2024, Tetanus booster 10/19/2033 10/19/2023, 080 11/2020, 09/10/2020, Additional history exists Hepatitis C screening for age 18-79 Completed 08/31/2016 Tdap Completed 10/19/2023, 0 11/2020, 04/06/2010 Influenza for age 9-49 Completed , 07/07/2023, 10/14/2022, Additional history exists Pneumococcal series for age 6-64 Aged Out No longer eligible based on patient's age to complete this topic Procedures Procedure Name Priority Date/Time Associated Diagnosis Comments COLONOSCOPY SCREENING Routine 08/06/2024 12:00 AM CDT Adenomatous polyp of colon, unspecified part of colon Screening for colon cancer URINE Routine 08/02/2024 10:20 AM CDT Pre-op exam HEMOGLOBIN A1C MONITORING (POCT) Routine 07/11/2024 2:53 PM CDT PCOS (polycystic ovarian syndrome) LIPID PANEL W REFLEX MEASURED LDL Routine 07/11/2024 2:52 PM CDT PCOS (polycystic ovarian syndrome) PROLACTIN ([facility]) Routine 07/11/2024 2:5 1 PM CDT Nipple discharge DIRECTOR CARDIOVASCULAR THIN PREP PAP SCREEN IMAGED Routine 01/24/2024 11:00 AM CDT ACUTE HEPATITIS PANEL Routine 08/31/2016 3:04 PM USED CAR MAKE READY WORKER Elevated LFTs SURGICAL PROCEDURE (TYPE PROCEDURE DESCRIPTION BELOW) Encounter for screening colonoscopy from Last 3 Months or Most Recently Relevant to Health Maintenance Results * COLONOSCOPY SCREENING (08/06/2024 12:00 AM CDT) Billie Smallwoodsusan DO GI PROCEDURE ORD Final Res ult * URINE (08/02/2024 10:20 AM CDT) HCG, QL, URINE NEGATIVE NEGATIVE [facility] Urine URINE SPECIMEN / Unknown 08/02/2024 10:20 AM CDT 08/02/2024 10:21 AM CDT Billie Guadarrama DO URINE Final Resu lt Performing Organization Address [facility]/ZIP Co de Phone Number [facility] [address] [place] [address], [facility] [address] [place] [address] * HEMOGLOBIN A1C MONITORING (POCT) (07/11/2024 2:53 PM CDT) [facility] POC HEMOGLOBIN A1C 5.4 <6.0 % OF TOTAL HGB [facility] Comment: Any point of care results exhibiting inconsistency with the patient's clinical status should be repeated using a different testing method. Blood BLOOD SPECIMEN / Unknown 07/11/2024 2:53 PM CDT 07/11/2024 2:54 PM CDT Billie Smallwoodsusan DO CHEMISTRY Final Resu lt [facility] [address] [place] [address], [place] [phone] [facility] [address] [place] [address] * (ABNORMAL) LIPID PANEL W REFLEX MEASURED LDL (07/11/2024 2:52 PM CDT) CHOLESTEROL, TOTAL 174 <200 mg/dL [facility] HDL CHOLESTEROL 58 > OR = 50 mg/dL [facility] TRIGLYCERIDES 184(H) <150 mg/dL [facility] LDL-CHOLESTEROL 88 mg/dL (calc) [facility] Comment: Reference range: <100 Desirable range <100 mg/dL for primary prevention; <70 mg/dL for patients with CHD or diabetic patients with > or = 2 CHD risk factors. LDL-C is now calculated using the Marleni calculation, which is a validated novel method providing better accuracy than the Friedewald equation in the estimation of LDL-C. Matthew DUNLAP et al. GALEN. 2013;310(19): 4028-9255 (http://education.Skyword/faq/STC777) CHOL/HDLC RATIO 3.0 <5.0 (calc) [facility] NON HDL CHOLESTEROL 116 <130 mg/dL (calc) [facility] Comment: For patients with diabetes plus 1 major ASCVD risk factor, treating to a non-HDL-C goal of <100 mg/dL (LDL-C of <70 mg/dL) is considered a therapeutic option. Blood BLOOD SPECIMEN / Unknown 07/11/2024 2:52 PM CDT 07/11/2024 2:53 PM CDT Billie Guadarrama DO CHEMISTRY Final Resu lt [facility] [address] [place] [address], [facility] [address] [place] [phone] * (ABNORMAL) PROLACTIN ([facility]) (07/11/2024 2:51 PM CDT) PROLACTIN 81.0(H) ng/mL [facility] Comment: Reference Range Females Non- 3.0-30.0 10.0-209.0 Postmenopausal 2.0-20.0 Blood BLOOD SPECIMEN / Unknown 07/11/2024 2:51 PM CDT 07/11/2024 2:52 PM CDT us Billie Smallwoodsusan DO SEND OUTS Final Resu lt [facility] [address] [place] [address], [facility] [address] [place] [address] * DIRECTOR CARDIOVASCULAR THIN PREP PAP SCREEN IMAGED (01/24/2024 11:00 AM CDT) Case Report Gynecologic Cytology Report Case: [id number] Authorizing Provider: Marely Vasquez PA-C Collected: 01/24/2024 1100 Ordering Location: [facility] Received: 01/26/2024 1040 First Screen: Hayes Weinstein Specimen: DIRECTOR CARDIOVASCULAR ThinPrep Vial Screening, Cervical 02/08/2024 8:05 AM CDT [facility] INTERPRETATION/ RESULT NEGATIVE FOR INTRAEPITHELIAL LESION OR MALIGNANCY (NIL) (none) 02/08/2024 8:05 AM CDT [facility] IMEN ADEQUACY Satisfactory for evaluation No endocervical component seen 02/08/2024 8:05 AM CDT [facility] [employer] LABORATORY ENTRAL LABORATORY HPV REQUEST HPV and PAP 02/08/2024 8:05 AM CDT [facility] ENTRAL LABORATORY Date of LMP 02/08/2024 8:05 AM CDT [facility] Comment:unk Last Pap Date 12/04/2020 02/08/2024 8:05 AM CDT [facility] Last Pap Result NIL 8:05 AM CDT [facility] EN[facility]AL LABORATORY Abnormal Pap or [place] Bx in last 5 years No 02/08/2024 8:05 AM CDT [facility] Menstrual Status 02/08/2024 8:05 AM CDT [facility] [employer] [facility] ENTRAL LABORATORY [place] Bx Done Today No 02/08/2024 8:05 AM CDT [facility] Additional Information 02/08/2024 8:05 AM CDT [facility] Comment: Interpreted at [facility] - [address] [place] [address], [place] [address] Automated Review Successful 02/08/2024 8:05 AM CDT [facility] Comment:Specimen processed s uccessfully by automated environmental projects advisor device, [employer] ([employer])Prep Imaging System, [employer] ANCILLARY TESTING DIRECTOR CARDIOVASCULAR HPV Ordered, Please see separate report 02/08/2024 8:05 AM CDT [facility] Note The pap test is a screening technique, not a diagnostic procedure. It is used primarily to screen for squamous cancers and precursor lesions. Published studies have shown that it is subject to both false negative and false positive results. The pap test should not be used as the sole means to diagnose or exclude pre-malignant and malignant lesions. 02/08/2024 8:[address] [facility] Other (Cervical) 01/24/2024 11:00 AM CDT 01/26/2024 10:40 AM CDT january Christina MINAYA PATHOLOGY/CYTOLOGY Final R esult [facility] [address] [place] [address], * ACUTE HEPATITIS PANEL (08/31/2016 3:04 PM USED CAR MAKE READY WORKER) HEPATITIS C ANTIBODY Non-Reactive Non-Reactive 08/31/2016 8:15 PM USED CAR MAKE READY WORKER [facility] IGM ANTI HAV Non-Reactive Non-Reactive 08/31/20 16 8:15 PM USED CAR MAKE READY WORKER [facility] HBSAG Nonreactive Nonreactive 08/31/2016 8:15 PM USED CAR MAKE READY WORKER [facility] IGM ANTI HBC Non-Reactive Non-Reactive 08/31/20 16 8:15 PM USED CAR MAKE READY WORKER [facility] Blood BLOOD SPECIMEN / Unknown Venipuncture / Unknown 08/31/2016 3:04 PM USED CAR MAKE READY WORKER 08/31/2016 3:04 PM USED CAR MAKE READY WORKER Narrative [facility]-CENTRAL LABORATORY - 08/31/2016 8:15 PM USED CAR MAKE READY WORKER Anti-HBc IgM not detected. Does not exclude the possibility of exposure to or infection with HBV. Billie Guadarrama DO SEND OUTS Final Resu lt [facility]-CENTRAL LABORATORY [address] [place] [address], [place] from Last 3 Months or Most Recently Relevant to Health Maintenance Insurance [facility] Care Teams Imaging Administrator Relationship Specialty Start Date End Date Billie Guadarrama [place] [address] PCP - General Family Practice 06/26/24 Vasquez Ridley MD [address] [place] [address] Rheumatology Rheumatology 10/07/16 Sanjeev Brar MD [address] [place] [address] Internal Medicine 09/28/19
--- OUTSIDE RECORDS SUMMARY | 2024-09-18 17:20 | XMS_ITS | Encounter Summary ---
Author Organization [place] Address [address] [place] [address]. [place] [address] Care Team Providers Care Card Writer Hand Name Role Phone Billie Guadarrama Primary Care Provider Rocio Mccarthy MD Unavailable [phone] Erica Tristan MD Unavailable [phone] Encounter Details Date Type Department Care Team (Latest Contact Info) Description 08/09/2024 Travel Social History Tobacco Use Types Packs/Day [...] Assigned at Female 10/05/2020 9:54 PM INFORMATION CODER Legal Sex Female 4:15 AM INFORMATION CODER Gender Identity Female 10/05/2020 9:54 PM INFORMATION CODER Sexual Orientation Straight 10/05/2020 9: 54 PM INFORMATION CODER documented as of this encounter Plan of Treatment Upcoming Encounters Date Type Department Care Team ( Contact Info) Description 12/31/2024 11:00 AM CDT Virtual Visit [facility] [address] [place] [address] Rocio Mccarthy MD [address] [place] [address] documented as of this encounter Visit Diagnoses Not on filedocumented in this encounter Additional Health Concerns Assessment Noted Time PHQ-9 Depression Total Score: 10 024 3:30 PM CDT documented as of this encounter Care Teams Card Writer Hand Relationship Specialty Start Date End Date Billie Guadarrama PCP - General 12/17/19 Rocio Mccarthy MD [address] [place] [address] Assigned Endocrinology Provider 04/24/22 Erica Tristan MD [address] [place], [place] [address] Assigned OBGYN Provider 08/06/23 documented as of this encounter
--- OUTSIDE RECORDS SUMMARY | 2024-09-18 17:20 | XMS_ITS | Encounter Summary ---
Author Organization [facility] Address [address] [place] [address]. 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 [...] Needed Not on file 10/03 /2023 Comments Unknown Sex and Gender Information Value Date Recorded Sex Assigned at Female 10/05/2020 9:54 PM HEAVY 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 Legal Sex Female 4:15 AM HEAVY EQUIPMENT PLUMBING SUPERVISOR Gender Identity Female 10/05/2020 9:54 PM HEAVY EQUIPMENT PLUMBING SUPERVISOR Sexual Orientation Straight 10/05/2020 9: 54 PM HEAVY EQUIPMENT PLUMBING SUPERVISOR documented as of this encounter Miscellaneous Notes * Telephone Encounter - Rocio Mccarthy MD - 08/19/2024 7:03 PM HEAVY EQUIPMENT PLUMBING SUPERVISOR Currently Takes 212.5 mcg/day (200+12.5) (06/28/2024) TSH improved from 57.80 to 0.19 Latest Ref Rng 08/13/2024 11:55 AM ENDO THYROID LABS-UMP TSH 0.30 - 4.20 uIU/mL 0.19 (L) Free T3 2.0 - 4.4 pg/mL 3.5 T3, Reverse ng/dL 9.0 - 27.0 ng/dL FREE T4 0.90 - 1.70 ng/dL 1.50 Legend: (L) Low Based on 08/13/24 labs-- recommend to decrease dose-- take 200 mcg/day Labs in 2 months. 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 Expected: 10/19/2024 (Approximate), Expires: 08/19/2025 TSH Lab Routine 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 Expected: 10/19/2024 (Approximate), Expires: 08/19/2025 documented as of this encounter Visit Diagnoses Diagnosis 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
--- OUTSIDE RECORDS SUMMARY | 2024-09-18 17:20 | XMS_ITS | Clinical Summary ---
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) 08/13/2024 12:00 PM UX DEVELOPER DESIGNER Lab [facility] [address] [place] [address] 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 08/13/2024 Travel 08/10/2024 Documentation Only [facility] [address] [place] [address] Rocio Mccarthy MD 08/09/2024 Travel 07/02/2024 MyC Medical Advice [facility] [address] [place] [address] Chelita Harrell CMA 06/28/2024 3:30 PM CDT Virtual Visit [facility] [address] [place] [address] Rocio Mccarthy MD 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) 06/26/2024 MyC Medical Advice [facility] [address] [place] [address] Rocio Mccarthy MD 06/25/2024 3:45 PM CDT Lab [facility] [address] [place] [address] 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 06/25/2024 Travel 06/25/2024 Telephone [facility] [address] [place] [phone] Rocio Mccarthy MD Call Back (Appointment ) 2024 MyC Medical Advice [facility] [address] [place] [address] Rocio Mccarthy MD from Last 3 Months Immunizations Name Administration Dates Next Due Comvax (HIB/HepB) 01/07/1998,1997 DTAP (<7y) 09/20/2002, 8,1997,1996 DTP-Hib 1997 DTaP, Unspecified 04/06/2010 [id number] Novel Flu 12/23/2009 HEPATITIS A (PEDS 12M-18Y) [...] Sex Assigned at Female 10/05/2020 9:54 PM UX DEVELOPER DESIGNER Legal Sex Female 4:15 AM UX DEVELOPER DESIGNER Gender Identity Female 10/05/2020 9:54 PM UX DEVELOPER DESIGNER Sexual Orientation Straight 10/05/2020 9: 54 PM UX DEVELOPER DESIGNER Last Filed Vital Signs Vital Sign Reading Time Taken Comments Blood Pressure 114/57 11/18/2023 10:26 AM UX DEVELOPER DESIGNER Pulse 99 11/18/2023 10:26 AM UX DEVELOPER DESIGNER Temperature 36.6 C (97.9 F) 10/20/2023 7:18 AM UX DEVELOPER DESIGNER Respiratory Rate 16 10/20/2023 7:18 AM UX DEVELOPER DESIGNER Oxygen Saturation 98% 11/04/2023 3:10 PM UX DEVELOPER DESIGNER Inhaled Oxygen Concentration - - Weight 111.1 kg (245 lb) 06/28/2024 3:28 PM CDT Height 165.1 cm (5' 5) 10/19/2023 12:22 PM UX DEVELOPER DESIGNER Body Mass Index 40.77 10/19/2023 12:22 PM UX DEVELOPER DESIGNER Plan of Treatment Upcoming Encounters Date Type Department Care Team (Late st Contact Info) Description 12/31/2024 11:00 AM CDT Virtual Visit [facility] [address] [place] [address] Rocio Mccarthy MD [address] [place] [address] Health Maintenance Due Date Last Done Comments ADVANCE CARE PLANNING 1997 ANNUAL REVIEW OF HM ORDERS 1997 HEPATITIS C SCREENING 2015 COVID-19 Vaccine ( season) 2024 YEARLY PREVENTIVE VISIT 07/11/2025 07/11/20 24, 06/01/2002, 05/23/2001 TSH W/FREE T4 REFLEX 08/13/2025 08/13/2024, 08/13/2024, 06/25/2024, Additional history exists PAP 01/23/2027 01/24/2024, 01/08, 12/04/2020 DTAP/TDAP/TD IMMUNIZATION (9 - Td or Tdap) 10/19/2033 10/19/2023, 05/11/2021, 09/10/2020, Additional history exists RSV VACCINE (1 - 1-dose 75+ series) 2072 HEPATITIS B IMMUNIZATION Completed 998, 01/07/1998, 01/07/1998, Additional history exists HPV IMMUNIZATION Completed 10/27/2012, , 07/06/2011 MENINGITIS IMMUNIZATION Completed 07/26/2013 HIV SCREENING Completed 12/04/2020 CHLAMYDIA SCREENING Discontinued 05/25/2021 PHQ-2 (once per calendar year) Completed 06/28/2024, 06/28/2024, 10/18/2023, Additional history exists INFLUENZA VACCINE Completed 07/11/2024, , 07/07/2023, Additional history exists Pneumococcal Vaccine: Pediatrics (0 to 5 Years) and At-Risk Patients (6 to 64 Years) Aged Out No longer eligible based on patient's age to complete this topic RSV MONOCLONAL ANTIBODY Aged Out No l onger eligible based on patient's age to complete this topic Procedures Procedure Name Priority Date/Time Associated Diagnosis Comments TSH Routine 08/13/2024 11:55 AM UX DEVELOPER DESIGNER 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 T4 FREE Routine 08/13/2024 11:55 AM UX DEVELOPER DESIGNER 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 T3 FREE Routine 08/13/2024 11:55 AM UX DEVELOPER DESIGNER 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 T3 FREE Routine 06/25/2024 3:34 PM CDT 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 TSH Routine 06/25/2024 3:34 PM CDT 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 T4 FREE Routine 06/25/2024 3:34 PM CDT 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 CHLAMYDIA TRACHOMATIS/NEISSERI A GONORRHOEAE BY PCR STAT 05/25/2021 6:45 PM CDT HIV 1&2 ANTIBODY (EXTERNAL RESULT) Routine 12/04/2020 12:00 AM UX DEVELOPER DESIGNER from Last 3 Months or Most Recently Relevant to Health Maintenance Results * (ABNORMAL) TSH (08/13/2024 11:55 AM UX DEVELOPER DESIGNER) Only the most recent of2 resultswithin the time period is included. TSH 0.19(L) 0.30 - 4.20 uIU/mL 08/13/2024 10:52 PM UX DEVELOPER DESIGNER [facility] Blood BLOOD SPECIMEN / Unknown Venipuncture / Unknown 08/13/2024 11:55 AM UX DEVELOPER DESIGNER 08/13/2024 11:55 AM UX DEVELOPER DESIGNER Rocio Mccarthy MD LAB - BLOOD ORDERABLES Fi nal Result U LABORATORY [facility] Core Lab [address] [place] [address] * T4 free (08/13/2024 11:55 AM UX DEVELOPER DESIGNER) Only the most recent of2 resultswithin the time period is included. Free T4 1.50 0.90 - 1.70 ng/dL 08/13/2024 10:52 PM UX DEVELOPER DESIGNER [facility] Blood BLOOD SPECIMEN / Unknown Venipuncture / Unknown 08/13/2024 11:55 AM UX DEVELOPER DESIGNER 08/13/2024 11:55 AM UX DEVELOPER DESIGNER Rocio Mccarthy MD LAB - BLOOD ORDERABLES Fi nal Result Performing Organization Address [facility] Co de Phone Number U LABORATORY [facility] Core Lab [address] [facility] [place] [address] * T3 Free (08/13/2024 11:55 AM UX DEVELOPER DESIGNER) Only the most recent of2 resultswithin the time period is included. Pathologist [facility] T3 Free 3.5 2.0 - 4.4 pg/mL 08/13/2024 10:52 PM UX DEVELOPER DESIGNER U LABORATORY Blood BLOOD SPECIMEN / Unknown Venipuncture / Unknown 08/13/2024 11:55 AM UX DEVELOPER DESIGNER 08/13/2024 11:55 AM UX DEVELOPER DESIGNER Rocio Mccarthy MD LAB - BLOOD ORDERABLES Fi nal Result U LABORATORY [facility] Core Lab [address] [facility] [place], [address] * Chlamydia trachomatis/Neisseria gonorrhoeae by PCR (05/25/2021 6:45 PM CDT) [facility] Chlamydia Trachomatis Negative Negative 05/26/2021 11:22 AM CDT [facility] Comment: Negative for C. trachomatis rRNA by lamp cleaner street light mediated amplification. A negative result by lamp cleaner street light mediated amplification does not preclude the presence of infection because results are dependent on proper and adequate collection, absence of inhibitors and sufficient rRNA to be detected. Neisseria gonorrhoeae Negative Negative 05/26/2021 11:22 AM CDT [facility] Comment:Negative for N. gono rrhoeae rRNA by lamp cleaner street light mediated amplification. A negative result by lamp cleaner street light mediated amplification does not preclude the presence of C. trachomatis infection because results are dependent on proper and adequate collection, absence of inhibitors and sufficient rRNA to be detected. Swab CERVIX UTERI STRUCTURE / Unknown Non-blood Collection / Unknown 05/25/2021 6:45 PM CDT 05/25/2021 7:17 PM CDT Jaimie Clinton MD LAB - MICRO GENERAL ORD ERABLES Final Result [facility] Infectious Diseases Diagnostic Lab (IDDL) [address] [place] [address], [address] [place] [address], [facility] [phone] * HIV-1 Antibody (External Result) (12/04/2020 12:00 AM UX DEVELOPER DESIGNER) HIV 1&2 Antibody (External) Negative Nonreactive EXTERNAL LAB 12/04/2020 us Patient Reported LAB - HIM EXTERNAL RESULT Final Result EXTERNAL LAB External Lab from Last 3 Months or Most Recently Relevant to Health Maintenance Insurance [facility] c/[place] [address] Advance Directives For more information, please contact: [phone] * Full Code (Latest Code Status on [...] neri nt/ legal decision maker Care Teams Provider Service Representative Relationship Specialty Start Date End Date Billie Guadarrama PCP - General 12/17/19 Rocio Mccarthy MD [address] [place], [place] [address] Assigned Endocrinology Provider 04/24/22 Erica Tristan MD [address] [place], [place] [address] Assigned OBGYN Provider 08/06/23
--- OUTSIDE RECORDS SUMMARY | 2024-09-18 17:20 | XMS_ITS | Encounter Summary ---
Author Organization [facility] Address [address] [place] [address]. [place] [address] Care Team Providers Care Garage Supervisor Name Role Phone Billie Guadarrama Primary Care Provider Rocio Mccarthy MD Unavailable [phone] Erica Tristan MD Unavailable [phone] Encounter Details Date Type Department Care Team (Late st Contact Info) Description 08/13/2024 12:00 PM PRODUCE TEAM LEAD Lab [facility] [address] [place] [address] 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 [...] Sex Assigned at Female 10/05/2020 9:54 PM PRODUCE TEAM LEAD Legal Sex Female 4:15 AM PRODUCE TEAM LEAD Gender Identity Female 10/05/2020 9:54 PM PRODUCE TEAM LEAD Sexual Orientation Straight 10/05/2020 9: 54 PM PRODUCE TEAM LEAD documented as of this encounter Miscellaneous Notes * Result Encounter Note - Rocio Mccarthy MD - 08/13/2024 12:00 PM PRODUCE TEAM LEAD Labs/results noted. Please see telephone encounter dated 08/19/2024. UCE TEAM LEAD documented in this encounter Plan of Treatment Upcoming Encounters Date Type Department Care Team (Late st Contact Info) Description 12/31/2024 11:00 AM CDT Virtual Visit [facility] [address] [place] [address] Rocio Mccarthy MD [address] [place] [address] documented as of this encounter Procedures Procedure Name Priority Date/Time Associated Diagnosis Comments TSH Routine 08/13/2024 11:55 AM PRODUCE TEAM LEAD 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 T4 FREE Routine 08/13/2024 11:55 AM PRODUCE TEAM LEAD 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 T3 FREE Routine 08/13/2024 11:55 AM PRODUCE TEAM LEAD 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 documented in this encounter Results * (ABNORMAL) TSH (08/13/2024 11:55 AM PRODUCE TEAM LEAD) TSH 0.19(L) 0.30 - 4.20 uIU/mL 08/13/2024 10:52 PM PRODUCE TEAM LEAD [facility] Blood BLOOD SPECIMEN / Unknown Venipuncture / Unknown 08/13/2024 11:55 AM PRODUCE TEAM LEAD 08/13/2024 11:55 AM PRODUCE TEAM LEAD us Rocio Mccarthy MD LAB - BLOOD ORDERABLES Fi nal Result [facility] [address], [address] * T4 free (08/13/2024 11:55 AM PRODUCE TEAM LEAD) Free T4 1.50 0.90 - 1.70 ng/dL 08/13/2024 10:52 PM PRODUCE TEAM LEAD [facility] Blood BLOOD SPECIMEN / Unknown Venipuncture / Unknown 08/13/2024 11:55 AM PRODUCE TEAM LEAD 08/13/2024 11:55 AM PRODUCE TEAM LEAD Rocio Mccarthy MD LAB - BLOOD ORDERABLES Fi nal Result LABORATORY [facility] Core Lab [address], [address] [place] [address] * T3 Free (08/13/2024 11:55 AM PRODUCE TEAM LEAD) T3 Free 3.5 2.0 - 4.4 pg/mL 08/13/2024 10:52 PM PRODUCE TEAM LEAD U LABORATORY Blood BLOOD SPECIMEN / Unknown Venipuncture / Unknown 08/13/2024 11:55 AM PRODUCE TEAM LEAD 08/13/2024 11:55 AM PRODUCE TEAM LEAD Rocio Mccarthy MD LAB - BLOOD ORDERABLES Fi nal Result LABORATORY [facility] Core Lab [address] documented in this encounter Visit Diagnoses Diagnosis 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 documented in this encounter Additional Health Concerns Assessment Noted Time PHQ-9 Depression Total Score: 10 024 3:30 PM CDT documented as of this encounter Care Teams Garage Supervisor Relationship Specialty Start Date End Date Billie Guadarrama PCP - General 12/17/19 Rocio Mccarthy MD [address] [place] [address] Assigned Endocrinology Provider 04/24/22 Erica Tristan MD [address] [facility] [address] [place] [address] Assigned OBGYN Provider 08/06/23 documented as of this encounter
--- OUTSIDE RECORDS SUMMARY | 2024-09-18 17:20 | XMS_ITS | Encounter Summary ---
Author Organization [facility] Address [address] [place] [address]. [place] [address] Care Team Providers Care Supervisor Throwing Department Name Role Phone Billie Guadarrama Primary Care Provider Rocio Mccarthy MD Unavailable [phone] Erica Tristan MD Unavailable [phone] Encounter Details Date Type Department Care Team (Late st Contact Info) Description 06/26/2024 MyC Medical Advice [facility] [address] [place] [address] Rocio Mccarthy MD [address] [place] [address] Social History Tobacco Use Types [...] Assigned at Female 10/05/2020 9:54 PM MEDICAL CASH POSTER Legal Sex Female 4:15 AM MEDICAL CASH POSTER Gender Identity Female 10/05/2020 9:54 PM MEDICAL CASH POSTER Sexual Orientation Straight 10/05/2020 9: 54 PM MEDICAL CASH POSTER documented as of this encounter Miscellaneous Notes * Telephone Encounter - Chelita Harrell CMA - 06/28/2024 7:21 AM CDT Message sent via Vouch. Maritza Harrell CMA -[facility] Endocrinology [place] [phone] * Telephone Encounter - Rocio Mccarthy MD - 06/27/2024 3:43 PM CDT TSH Date Value Ref Range Status 06/25/2024 57.80 (H) 0.30 - 4.20 uIU/mL Final 06/21/2022 1.13 0.40 - 4.00 mU/L Final 05/21/2020 0.48 0.40 - 4.00 mU/L Final She was taking medication prior to labs Help schedule as discussed. documented in this encounter Plan of Treatment Upcoming Encounters Date Type Department Care Team (Late st Contact Info) Description 12/31/2024 11:00 AM CDT Virtual Visit [facility] [address] [place] [address] Rocio Mccarthy MD [address] [place] [address] documented as of this encounter Visit Diagnoses Not on filedocumented in this encounter Additional Health Concerns Assessment Noted Time PHQ-9 Depression Total Score: 11 023 10:04 AM CDT documented as of this encounter Care Teams Supervisor Throwing Department Relationship Specialty Start Date End Date Billie Guadarrama PCP - General 12/17/19 Rocio Mccarthy MD [address] [place] [address] Assigned Endocrinology Provider 04/24/22 Erica Tristan MD [address] [place] [address] Assigned OBGYN Provider 08/06/23 documented as of this encounter
--- OUTSIDE RECORDS SUMMARY | 2024-09-18 17:21 | XMS_ITS | Encounter Summary ---
Author Organization [facility] Address [address] [place] [address]. [place] [address] Care Team Providers Care Medical Lab Technologist Name Role Phone Billie Guadarrama Primary Care Provider Rocio Mccarthy MD Unavailable [phone] Erica Tristan MD Unavailable [phone] Encounter Details Date Type Department Care Team (Latest Contact Info) Description 06/14/2023 MyC Medical Advice [facility] [address] [place] [address] Rocio Mccarthy MD [address] [place] [address] 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 [...] Answer Date Recorded PHQ-2 Score 2 06/29/2022 Comments Unknown Sex and Gender Information Value Date Recorded Sex Assigned at Female 10/05/2020 9:54 PM ASSISTANT WINEMAKER Legal Sex Female 4:15 AM ASSISTANT WINEMAKER Gender Identity Female 10/05/2020 9:54 PM ASSISTANT WINEMAKER Sexual Orientation Straight 10/05/2020 9: 54 PM ASSISTANT WINEMAKER COVID-19 Exposure Response Date Recorded In the [...] Description 12/31/2024 11:00 AM CDT Virtual Visit [facility] [address] [place] [address] Rocio Mccarthy MD [address] [place] [address] documented as of this encounter Visit Diagnoses Diagnosis 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- Primary documented in this encounter Care Teams Medical Lab Technologist Relationship Specialty Start Date End Date Billie Guadarrama PCP - General 12/17/19 Rocio Mccarthy MD [address] [place] [address] Assigned Endocrinology Provider 04/24/22 Erica Tristan MD [address] [place], [place] [address] Assigned OBGYN Provider 08/06/23 documented as of this encounter
--- OUTSIDE RECORDS SUMMARY | 2024-09-18 17:21 | XMS_ITS | Encounter Summary ---
Author Organization [facility] Address [address] [place] [address] Care Team Providers Care Etl Consultant Name Role Phone Billie Guadarrama Primary Care Provider Rocio Mccarthy MD Unavailable [phone] Erica Tristan MD Unavailable [phone] Reason for Referral * Diagnostic Imaging Ultrasound (Routine) - Closed Specialty Diagnoses / Procedures Referred By Emily douglas Referred To Contact 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 Procedures US Head Neck Soft Tissue Rocio Mccarthy MD [address] [address] [place] [address] Phone: tel: fax: Referral ID Status Reason Start Date Expiration Date Visits Re quested Visits Authorized [id number] Closed 06/03/2022 06/03/2023 1 1 Reason for Visit * Reason Onset Date Comments Call Back 06/01/2022 Encounter Details Date Type Department Care Team (Late st Contact Info) Description 06/01/2022 Telephone [facility] [address] [place] [address] Rocio Mccarthy MD [address] [facility] [address] [place] [address] [phone] (work) Call Back Social History Tobacco Use Types [...] Answer Date Recorded PHQ-2 Score 0 04/19/2022 Comments Unknown Sex and Gender Information Value Date Recorded Sex Assigned at Female 10/05/2020 9:54 PM PLATFORM WORKER Legal Sex Female 4:15 AM PLATFORM WORKER Gender Identity Female 10/05/2020 9:54 PM PLATFORM WORKER Sexual Orientation Straight 10/05/2020 9: 54 PM PLATFORM WORKER documented as of this encounter Miscellaneous [...] Sharmin Peacock - 06/01/2022 10:21 AM CDT [facility] Call Center Phone Message May [...] Description 12/31/2024 11:00 AM CDT Virtual Visit [facility] [address] [place] [address] Rocio Mccarthy MD [address] [place], [place] [address] documented as of this encounter Results * US Head Neck Soft Tissue (06/09/2022 2:59 PM CDT) Anatomical Region Laterality Modality Head Ultrasound Impressions 06/09/2022 3:52 PM CDT IMPRESSION: 1. No discrete thyroid nodule visualized. [...] thyroiditis. SHREYAS BARBA MD Rocio Mccarthy MD [facility] US ORDERABLES Final R esult documented in this encounter Visit Diagnoses Diagnosis 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- Primary 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 documented in this encounter Care Teams Etl Consultant Relationship Specialty Start Date End Date Billie Guadarrama PCP - General 12/17/19 Rocio Mccarthy MD [address] [place] [address] Assigned Endocrinology Provider 04/24/22 Erica Tristan MD [address] [place] [address] Assigned OBGYN Provider 08/06/23 documented as of this encounter
--- OUTSIDE RECORDS SUMMARY | 2024-09-18 17:21 | XMS_ITS | Encounter Summary ---
Author Organization [facility] Address [address] [place] [address]. [place] [address] Care Team Providers Care Hospitality Director Name Role Phone Billie Guadarrama Primary Care Provider Rocio Mccarthy MD Unavailable [phone] Erica Tristan MD Unavailable [phone] Encounter Details Date Type Department Care Team (Late st Contact Info) Description 10/09/2023 MyC Medical Advice [facility] [address] [facility] [address] [place] [address] Rocio Mccarthy MD [address] [place] [address] Social History Tobacco Use Types [...] Sex Assigned at Female 10/05/2020 9:54 PM DISTRIBUTION SYSTEMS SERVICEPERSON Legal Sex Female 4:15 AM DISTRIBUTION SYSTEMS SERVICEPERSON Gender Identity Female 10/05/2020 9:54 PM DISTRIBUTION SYSTEMS SERVICEPERSON Sexual Orientation Straight 10/05/2020 9: 54 PM DISTRIBUTION SYSTEMS SERVICEPERSON documented as of this encounter Miscellaneous Notes * Telephone Encounter - Nahed Woodruff - 10/12/2023 10:36 AM CST Appointment scheduled. RIBUTION SYSTEMS SERVICEPERSON * Telephone Encounter - Rocio Mccarthy MD - 10/11/2023 10:51 AM DISTRIBUTION SYSTEMS SERVICEPERSON Ok for ANGÉLICA at this time. Please [...] if you need any help with scheduling. RIBUTION SYSTEMS SERVICEPERSON documented in this encounter Plan of Treatment Upcoming Encounters Date Type Department Care Team (Late st Contact Info) Description 12/31/2024 11:00 AM CDT Virtual Visit [facility] [address] [facility] [address] [place] [address] Rocio Mccarthy MD [address] [place] [address] documented as of this encounter Visit Diagnoses Not on filedocumented in this encounter Additional Health Concerns Assessment Noted Time PHQ-9 Depression Total Score: 11 023 10:04 AM CDT documented as of this encounter Care Teams Hospitality Director Relationship Specialty Start Date End Date Billie Guadarrama PCP - General 12/17/19 Rocio Mccarthy MD [address] [place] [address] Assigned Endocrinology Provider 04/24/22 Erica Tristan MD [address] [place] [address] Assigned OBGYN Provider 08/06/23 documented as of this encounter
--- OUTSIDE RECORDS SUMMARY | 2024-09-18 17:21 | XMS_ITS | Encounter Summary ---
Author Organization [facility] Address [address] [place] [address]. [place] [address] Care Team Providers Care Estate Agent Name Role Phone Billie Guadarrama Primary Care Provider Rocio Mccarthy MD Unavailable [phone] Erica Tristan MD Unavailable [phone] Encounter Details Date Type Department Care Team (Late st Contact Info) Description 02/14/2024 MyC Medical Advice [facility] [address] [facility] [address] [place] [address] Rocio Mccarthy MD [address] [place] [address] Social History Tobacco Use Types [...] Assigned at Female 10/05/2020 9:54 PM ASSOCIATE SPA DIRECTOR Legal Sex Female 4:15 AM ASSOCIATE SPA DIRECTOR Gender Identity Female 10/05/2020 9:54 PM ASSOCIATE SPA DIRECTOR Sexual Orientation Straight 10/05/2020 9: 54 PM ASSOCIATE SPA DIRECTOR documented as of this encounter Plan of Treatment Upcoming Encounters Date Type Department Care Team (Late st Contact Info) Description 12/31/2024 11:00 AM CDT Virtual Visit [facility] [address] [facility] [address] [place] [address] Rocio Mccarthy MD [address] [place] [address] documented as of this encounter Visit Diagnoses Not on filedocumented in this encounter Additional Health Concerns Assessment Noted Time PHQ-9 Depression Total Score: 11 023 10:04 AM CDT documented as of this encounter Care Teams Estate Agent Relationship Specialty Start Date End Date Billie Guadarrama PCP - General 12/17/19 Rocio Mccarthy MD [address] [place] [address] Assigned Endocrinology Provider 04/24/22 Erica Tristan MD [address] [address] [place], [place] [address] Assigned OBGYN Provider 08/06/23 documented as of this encounter
--- OUTSIDE RECORDS SUMMARY | 2024-09-18 17:21 | XMS_ITS | Encounter Summary ---
Author Organization [facility] Address [address] [place] [address]. [place] [address] Care Team Providers Care Liquor Runner Name Role Phone Billie Guadarrama Primary Care Provider Anthony Shaffer MD Unavailable Rocio Mccarthy MD Unavailable [phone] Ercia Tristan MD Unavailable [phone] Encounter Details Date Type Department Care Team (Late st Contact Info) Description 01/06/2022 MyC Medical Advice [address] [phone] Jina Harrell V, RN Social History Tobacco [...] Binge Drinking Not on file 10/2019 Comments No Sex and Gender Information Value Date Recorded Sex Assigned at Female 10/05/2020 9:54 PM MANAGER OF MAINTENANCE Legal Sex Female 4:15 AM MANAGER OF MAINTENANCE Gender Identity Female 10/05/2020 9:54 PM MANAGER OF MAINTENANCE Sexual Orientation Straight 10/05/2020 9: 54 PM MANAGER OF MAINTENANCE COVID-19 Exposure Response Date Recorded In the last month, have you been in contact with someone who was confirmed or suspected to have Coronavirus / COVID-19? No / Unsure 01/05/2022 1:29 PM CDT documented as of this encounter Plan of Treatment Upcoming Encounters Date Type Department Care Team (Late st Contact Info) Description 12/31/2024 11:00 AM CDT Virtual Visit [facility] [address] [facility] [address] [place] [phone] Rocio Mccarthy MD [address] [place] [address] documented as of this encounter Visit Diagnoses Not on filedocumented in this encounter Care Teams Liquor Runner Relationship Specialty Start Date End Date Billie Guadarrama PCP - General 12/17/19 Anthony Shaffer MD [address] [place], [place] [address] Assigned OBGYN Provider 05/10/21 Rocio Mccarthy MD [address] [place] [address] Assigned Endocrinology Provider 04/24/22 Erica Tristan MD [address] [place], [place] [address] Assigned OBGYN Provider 08/06/23 documented as of this encounter
--- OUTSIDE RECORDS SUMMARY | 2024-09-18 17:21 | XMS_ITS | Encounter Summary ---
Author Organization [facility] Address [address] [place] [address]. [place] [address] Care Team Providers Care Taxation Inspector Name Role Phone Billie Guadarrama Primary Care Provider [phone] Rocio Mccarthy MD Unavailable [phone] Erica Tristan MD Unavailable Encounter Details Date Type Department Care Team (Late st Contact Info) Description 10/18/2023 MyC Medical Advice [facility] [address] [facility] [address] [place] [address] Chelita Harrell, [facility] Social History Tobacco Use Types Packs/Day [...] Sex Assigned at Female 10/05/2020 9:54 PM EDITORIAL PROJECT MANAGER Legal Sex Female 4:15 AM EDITORIAL PROJECT MANAGER Gender Identity Female 10/05/2020 9:54 PM EDITORIAL PROJECT MANAGER Sexual Orientation Straight 10/05/2020 9: 54 PM EDITORIAL PROJECT MANAGER documented as of this encounter Plan of Treatment Upcoming Encounters Date Type Department Care Team (Late st Contact Info) Description 12/31/2024 11:00 AM CDT Virtual Visit [facility] [address] [place] [address] Rocio Mccarthy MD [address] [place] [address] documented as of this encounter Visit Diagnoses Not on filedocumented in this encounter Additional Health Concerns Assessment Noted Time PHQ-9 Depression Total Score: 11 023 10:04 AM CDT documented as of this encounter Care Teams Taxation Inspector Relationship Specialty Start Date End Date Billie Guadarrama PCP - General 12/17/19 Rocio Mccarthy MD [address] [place] [address] Assigned Endocrinology Provider 04/24/22 Erica Tristan MD [address] [address] [place] [address] Assigned OBGYN Provider 08/06/23 documented as of this encounter
--- OUTSIDE RECORDS SUMMARY | 2024-09-18 17:21 | XMS_ITS | Encounter Summary ---
Author Organization [facility] Address [address] [place] [address]. [place] [address] Care Team Providers Care Blocker And Polisher Gold Wheel Name Role Phone Billie Guadarrama Primary Care Provider [phone] Anthony Shaffer MD Unavailable Rocio Mccarthy MD Unavailable [phone] Erica Tristan MD Unavailable [phone] Encounter Details Date Type Department Care Team (Late st Contact Info) Description 03/31/2022 MyC Medical Advice [facility] [address] [place] [address] [place] [address] Rocio Mccarthy MD [address] [place] [address] Social History Tobacco Use Types [...] Sex Assigned at Female 10/05/2020 9:54 PM CHECKING CLERK Legal Sex Female 4:15 AM CHECKING CLERK Gender Identity Female 10/05/2020 9:54 PM CHECKING CLERK Sexual Orientation Straight 10/05/2020 9: 54 PM CHECKING CLERK documented as of this encounter Miscellaneous Notes * Telephone Encounter - Jina Harrell RN - 04/01/2022 8:21 AM CDT Okay to use ANGÉLICA spot documented in this encounter Plan of Treatment Upcoming Encounters Date Type Department Care Team (Late st Contact Info) Description 12/31/2024 11:00 AM CDT Virtual Visit [facility] [address] [facility] [address] [place] [address] Rocio Mccarthy MD [address] [place] [address] documented as of this encounter Visit Diagnoses Not on filedocumented in this encounter Care Teams Blocker And Polisher Gold Wheel Relationship Specialty Start Date End Date Billie Guadarrama PCP - General 12/17/19 Anthony Shaffer MD [address] [place], [place] [address] Assigned OBGYN Provider 05/10/21 Rocio Mccarthy MD [address] [place] [address] Assigned Endocrinology Provider 04/24/22 Erica Tristan MD [address] [place], [place] [address] Assigned OBGYN Provider 08/06/23 documented as of this encounter
--- OUTSIDE RECORDS SUMMARY | 2024-09-18 17:21 | XMS_ITS | Encounter Summary ---
Author Organization [facility] Address [address] [place] [address]. [place] [address] Care Team Providers Care Stencil Maker Name Role Phone Billie Guadarrama Primary Care Provider Rcoio Mccarthy MD Unavailable [phone] Anthony Shaffer MD Unavailable [phone] Rocio Mccarthy MD Unavailable [phone] Erica Tristan MD Unavailable [phone] Reason for Visit * Reason Onset Date Comments MyChart Communication 06/12/2020 Encounter Details Date Type Department Care Team (Latest Contact Info) Description 06/12/2020 MyC Medical Advice [facility] [address] [facility] [address] [place] [address] Rocio Mccarthy MD [address] [place] [address] MyChart Communication Social History Tobacco [...] Sex Assigned at Female 10/05/2020 9:54 PM INSTRUCTION LIBRARIAN Legal Sex Female 4:15 AM INSTRUCTION LIBRARIAN Gender Identity Female 10/05/2020 9:54 PM INSTRUCTION LIBRARIAN Sexual Orientation Straight 10/05/2020 9: 54 PM INSTRUCTION LIBRARIAN COVID-19 Exposure Response Date Recorded In the last month, have you been in contact with someone who was confirmed or suspected to have Coronavirus / COVID-19? No / Unsure 05/29/2020 2:44 PM CDT documented as of this encounter Miscellaneous Notes * Telephone Encounter - Angelic Cavazos RN - 06/12/2020 9:07 AM CDT Please see [employer] message and advise. Thank you. documented in this encounter Plan of Treatment Upcoming Encounters Date Type Department Care Team (Late st Contact Info) Description 12/31/2024 11:00 AM CDT Virtual Visit [facility] [address] [facility] [address] [place] [address] Rocio Mccarthy MD [address] [place] [address] 200 [place], [place] [address] documented as of this encounter Visit Diagnoses Not on filedocumented in this encounter Care Teams Stencil Maker Relationship Specialty Start Date End Date Billie Guadarrama PCP - General 12/17/19 Rocio Mccarthy MD [address] [place] [address] 200 [place], [place] [address] Assigned Endocrinology Provider 08/01/20 11/28/21 Anthony Shaffer MD [address] [address] [place] [address] Assigned OBGYN Provider 05/10/21 Rocio Mccarthy MD [address] 200 [place] [address] Assigned Endocrinology Provider 04/24/22 Erica Tristan MD [address] [facility] 400 [place] [address] Assigned OBGYN Provider 08/06/23 documented as of this encounter
--- OUTSIDE RECORDS SUMMARY | 2024-09-18 17:21 | XMS_ITS | Encounter Summary ---
Author Organization [facility] Address [address] [place] [address]. 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 [...] Sex Assigned at Female 10/05/2020 9:54 PM CAREER RESOURCE TECHNICIAN Legal Sex Female 4:15 AM CAREER RESOURCE TECHNICIAN Gender Identity Female 10/05/2020 9:54 PM CAREER RESOURCE TECHNICIAN Sexual Orientation Straight 10/05/2020 9: 54 PM CAREER RESOURCE TECHNICIAN documented as of this encounter Miscellaneous [...] Description 12/31/2024 11:00 AM CDT Virtual Visit [facility] [address] [facility] [address] [place] [address] Rocio Mccarthy MD [address] [place] [address] documented as of this encounter Results * Thyroglobulin and Antibody Reflex (02/13/2024 2:02 PM CDT) Thyroglobulin Antibody <20 <40 IU/mL 02/14/2024 9:14 AM CDT SPECIALTY CORE/PROT/END O Blood BLOOD SPECIMEN / Unknown Venipuncture / Unknown 02/13/2024 2:02 PM CDT 02/13/2024 2:02 PM CDT Rocio Mccarthy MD LAB - BLOOD ORDERABLES Fi nal Result [facility] SPECIALTY CORE/PROT/ENDO Specialty Core/Prot/Endo [address] [facility], Room 3-[address] * (ABNORMAL) Thyroid peroxidase antibody (02/13/2024 2:02 PM CDT) Thyroid Peroxidase Antibody 927(H) <35 IU/mL 02/14/2024 9:14 AM CDT UM SPECIALTY CORE/PROT/ENDO Blood BLOOD SPECIMEN / Unknown Venipuncture / Unknown 02/13/2024 2:02 PM CDT 02/13/2024 2:02 PM CDT Rocio Mccarthy MD LAB - BLOOD ORDERABLES Fi nal Result Performing Organization Address City/[facility] Co de Phone Number [facility] SPECIALTY CORE/PROT/ENDO Specialty Core/Prot/Endo [address] [facility], Room [address] * T3 reverse (02/13/2024 2:02 PM CDT) T3, Reverse ng/dL 18.1 9.0 - 27.0 ng/dL 02/16/2024 7:30 AM CDT [facility] Comment: INTERPRETIVE INFORMATION: Triiodothyronine, Reverse - LC-MS/MS This test was developed and its performance characteristics determined by [facility]. It has not been cleared or approved by the [place] Food and Drug Administration. This test was performed in a CLIA certified laboratory and is intended for clinical purposes. 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
--- OUTSIDE RECORDS SUMMARY | 2024-09-18 17:21 | XMS_ITS | Encounter Summary ---
Author Organization [facility] Address [address] [place] [address]. [place] [address] Care Team Providers Care Residential Substance Abuse Counselor Name Role Phone Billie Guadarrama Primary Care Provider Rocio Mccarthy MD Unavailable [phone] Erica Tristan MD Unavailable [phone] Encounter Details Date Type Department Care Team (Late st Contact Info) Description 08/24/2023 MyC Medical Advice [facility] [address] [facility] [address] [place] [address] Rocio Mccarthy MD [address] [place] [address] Social History Tobacco Use Types [...] Sex Assigned at Female 10/05/2020 9:54 PM MANNEQUIN MAKER Legal Sex Female 4:15 AM MANNEQUIN MAKER Gender Identity Female 10/05/2020 9:54 PM MANNEQUIN MAKER Sexual Orientation Straight 10/05/2020 9: 54 PM MANNEQUIN MAKER documented as of this encounter Miscellaneous Notes * Telephone Encounter - Rocio Mccarthy MD - 08/26/2023 10:48 AM MANNEQUIN MAKER Latest Ref Rng 08/23/2023 1:26 PM ENDO [...] 1 week after that to discuss results. EQUIN MAKER * Telephone Encounter - Ramya Lugo RN - 08/24/2023 11:51 AM CST In response to lab comments 08/23/23: Thyroid labs are in acceptable range. How many weeks are you so far? How are you feeling? EQUIN MAKER documented in this encounter Plan of Treatment Upcoming Encounters Date Type Department Care Team (Late st Contact Info) Description 12/31/2024 11:00 AM CDT Virtual Visit [facility] [address] [place] [address] Rocio Mccarthy MD [address] [place], [place] [address] documented as of this encounter Visit Diagnoses Not on filedocumented in this encounter Additional Health Concerns Assessment Noted Time PHQ-9 Depression Total Score: 11 023 10:04 AM CDT documented as of this encounter Care Teams Residential Substance Abuse Counselor Relationship Specialty Start Date End Date Billie Guadarrama PCP - General 12/17/19 Rocio Mccarthy MD [address] [place], [place] [address] Assigned Endocrinology Provider 04/24/22 Erica Tristan MD [address] [place], [place] [address] Assigned OBGYN Provider 08/06/23 documented as of this encounter
--- OUTSIDE RECORDS SUMMARY | 2024-09-18 17:21 | XMS_ITS | Encounter Summary ---
Author Organization [facility] Address [address] [place] [address]. [place] [address] Care Team Providers Care Cosmetic Assembler Name Role Phone Billie Guadarrama Primary Care Provider Rocio Mccarthy MD Unavailable [phone] Erica Tristan MD Unavailable [phone] Encounter Details Date Type Department Care Team (Late st Contact Info) Description 03/23/2023 MyC Medical Advice [facility] [address] [facility] [address] [place] [address] Rocio Mccarthy MD [address] [place] [address] Social History Tobacco Use Types [...] Sex Assigned at Female 10/05/2020 9:54 PM CHANGE MANAGEMENT Legal Sex Female 4:15 AM CHANGE MANAGEMENT Gender Identity Female 10/05/2020 9:54 PM CHANGE MANAGEMENT Sexual Orientation Straight 10/05/2020 9: 54 PM CHANGE MANAGEMENT documented as of this encounter Miscellaneous Notes * Telephone Encounter - Rocio Mccarthy MD - 03/28/2023 4:49 PM CDT Noted low TSH. Please place orders for TSH, Free T4 and T3 levels. Furhter work up based on that. documented in this encounter Plan of Treatment Upcoming Encounters Date Type Department Care Team (Late st Contact Info) Description 12/31/2024 11:00 AM CDT Virtual Visit [facility] [address] [facility] [address] [place] [address] Rocio Mccarthy MD [address] [place] [address] documented as of this encounter Visit Diagnoses Not on filedocumented in this encounter Care Teams Cosmetic Assembler Relationship Specialty Start Date End Date Billie Guadarrama PCP - General 12/17/19 Rocio Mccarthy MD [address] [place] [address] Assigned Endocrinology Provider 04/24/22 Erica Tristan MD [address] [place], [place] [address] Assigned OBGYN Provider 08/06/23 documented as of this encounter
--- OUTSIDE RECORDS SUMMARY | 2024-09-18 17:21 | XMS_ITS | Encounter Summary ---
Author Organization [facility] Address [address] [place] [address]. [place] [address] Care Team Providers Care Front End Specialist Name Role Phone Billie Guadarrama Primary Care Provider Rocio Mccarthy MD Unavailable [phone] Erica Tristan MD Unavailable [phone] Reason for Visit * Reason Onset Date Comments Call Back 09/12/2023 Encounter Details Date Type Department Care Team (Late st Contact Info) Description 09/12/[address] [facility] [address] [place] [address] [place] [address] Rocio Mccarthy MD [address] [place] [address] Call Back Social History Tobacco [...] Sex Assigned at Female 10/05/2020 9:54 PM NEEDLE PUNCH MACHINE OPERATOR HELPER Legal Sex Female 4:15 AM NEEDLE PUNCH MACHINE OPERATOR HELPER Gender Identity Female 10/05/2020 9:54 PM NEEDLE PUNCH MACHINE OPERATOR HELPER Sexual Orientation Straight 10/05/2020 9: 54 PM NEEDLE PUNCH MACHINE OPERATOR HELPER documented as of this encounter Miscellaneous Notes * Telephone Encounter - Rocio Mccarthy MD - 09/15/2023 3:33 PM NEEDLE PUNCH MACHINE OPERATOR HELPER Please see telephone encounter 09/15/2023 LE PUNCH MACHINE OPERATOR HELPER * Telephone Encounter - Chelita Hahn - 09/12/2023 2:56 PM CST [facility] Phone Message May a detailed message be left on voicemail: yes Reason for Call: Other: WORK TICKET DISTRIBUTOR would like to know normal references ranges and values patient's care is being based off of. Patient is in 2nd trimester of . When calling , please ask for triage nurse. Action Taken: Other: endo Travel Screening: Not Applicable LE PUNCH MACHINE OPERATOR HELPER documented in this encounter Plan of Treatment Upcoming Encounters Date Type Department Care Team (Late st Contact Info) Description 12/31/2024 11:00 AM CDT Virtual Visit [facility] [address] [facility] [address] [place] [address] Rocio Mccarthy MD [address] [place] [address] documented as of this encounter Visit Diagnoses Not on filedocumented in this encounter Additional Health Concerns Assessment Noted Time PHQ-9 Depression Total Score: 11 023 10:04 AM CDT documented as of this encounter Care Teams Front End Specialist Relationship Specialty Start Date End Date Billie Guadarrama PCP - General 12/17/19 Rocio Mccarthy MD [address] [place] [address] Assigned Endocrinology Provider 04/24/22 Erica Tristan MD [address] [place] [address] Assigned OBGYN Provider 08/06/23 documented as of this encounter
--- OUTSIDE RECORDS SUMMARY | 2024-09-18 17:21 | XMS_ITS | Encounter Summary ---
Author Organization [place] Address [address] [place] [address]. [place] [address] Care Team Providers Care Senior Net Web Developer Name Role Phone Billie Guadarrama Primary Care Provider Rocio Mccarthy MD Unavailable [phone] Erica Tristan MD Unavailable [phone] Encounter Details Date Type Department Care Team (Late st Contact Info) Description 01/04/2024 [facility] Medical Advice [address] [place] [address] Loren Gillespie, RN Social History [...] Sex Assigned at Female 10/05/2020 9:54 PM ACID TANK LINER Legal Sex Female 4:15 AM ACID TANK LINER Gender Identity Female 10/05/2020 9:54 PM ACID TANK LINER Sexual Orientation Straight 10/05/2020 9: 54 PM ACID TANK LINER documented as of this encounter Plan of Treatment Upcoming Encounters Date Type Department Care Team (Late st Contact Info) Description 12/31/2024 11:00 AM CDT Virtual Visit [facility] [address] [place] [address] Rocio Mccarthy MD [address] [place] [address] documented as of this encounter Visit Diagnoses Not on filedocumented in this encounter Additional Health Concerns Assessment Noted Time PHQ-9 Depression Total Score: 11 023 10:04 AM CDT documented as of this encounter Care Teams Senior Net Web Developer Relationship Specialty Start Date End Date Billie Guadarrama PCP - General 12/17/19 Rocio Mccarthy MD [address] [place] [address] Assigned Endocrinology Provider 04/24/22 Erica Tristan MD [address] [facility] [address] [place] [address] Assigned OBGYN Provider 08/06/23 documented as of this encounter
--- OUTSIDE RECORDS SUMMARY | 2024-09-18 17:21 | XMS_ITS | Encounter Summary ---
Author Organization [place] Address [address] [place] [address]. [place] [address] Care Team Providers Care Chief Meter Reader Name Role Phone Billie Guadarrama Primary Care Provider Rocio Mccarthy MD Unavailable [phone] Erica Tristan MD Unavailable Encounter Details Date Type Department Care Team (Late st Contact Info) Description 11/03/2023 MyC Medical Advice [facility] [address] [place] [address] Karina Bone, KEVAN Social History Tobacco [...] Sex Assigned at Female 10/05/2020 9:54 PM INVENTORY CONTROL ANALYST Legal Sex Female 4:15 AM INVENTORY CONTROL ANALYST Gender Identity Female 10/05/2020 9:54 PM INVENTORY CONTROL ANALYST Sexual Orientation Straight 10/05/2020 9: 54 PM INVENTORY CONTROL ANALYST documented as of this encounter Plan of Treatment Upcoming Encounters Date Type Department Care Team (Late st Contact Info) Description 12/31/2024 11:00 AM CDT Virtual Visit [facility] [address] [place] [address] Rocio Mccarthy MD [address] [place] [address] documented as of this encounter Visit Diagnoses Not on filedocumented in this encounter Additional Health Concerns Assessment Noted Time PHQ-9 Depression Total Score: 11 023 10:04 AM CDT documented as of this encounter Care Teams Chief Meter Reader Relationship Specialty Start Date End Date Billie Guadarrama PCP - General 12/17/19 Rocio Mccarthy MD [address] [place] [address] Assigned Endocrinology Provider 04/24/22 Erica Tristan MD [address] [facility] [address] [place] [address] Assigned OBGYN Provider 08/06/23 documented as of this encounter
--- OUTSIDE RECORDS SUMMARY | 2024-09-18 17:21 | XMS_ITS | Encounter Summary ---
Author Organization [place] Address [address] [place] [address]. [place] [address] Care Team Providers Care Gold Assayer Name Role Phone Billie Guadarrama Primary Care Provider [phone] Rocio Mccarthy MD Unavailable [phone] Erica Tristan MD Unavailable [phone] Encounter Details Date Type Department Care Team (Late st Contact Info) Description 09/15/2023 MyC Medical Advice [facility] [address] [facility] [address] [place] [address] Rocio Mccarthy MD [address] [place] [address] Social History Tobacco Use Types [...] Sex Assigned at Female 10/05/2020 9:54 PM DIESEL PILE HAMMER OPERATOR Legal Sex Female 4:15 AM DIESEL PILE HAMMER OPERATOR Gender Identity Female 10/05/2020 9:54 PM DIESEL PILE HAMMER OPERATOR Sexual Orientation Straight 10/05/2020 9: 54 PM DIESEL PILE HAMMER OPERATOR documented as of this encounter Miscellaneous Notes * Telephone Encounter - Rocio Mccarthy MD - 09/15/2023 3:30 PM DIESEL PILE HAMMER OPERATOR Per VIJAY guidelines; Typically TSH upper reference [...] defined through assessment of local population data business services sales representative of a health care provider???s practice. EL PILE HAMMER OPERATOR documented in this encounter Plan of Treatment Upcoming Encounters Date Type Department Care Team (Late st Contact Info) Description 12/31/2024 11:00 AM CDT Virtual Visit [facility] [address] [facility] [address] [place] [address] Rocio Mccarthy MD [address] [place] [address] documented as of this encounter Visit Diagnoses Not on filedocumented in this encounter Additional Health Concerns Assessment Noted Time PHQ-9 Depression Total Score: 11 023 10:04 AM CDT documented as of this encounter Care Teams Gold Assayer Relationship Specialty Start Date End Date Billie Guadarrama PCP - General 12/17/19 Rocio Mccarthy MD [address] [place] [address] Assigned Endocrinology Provider 04/24/22 Erica Tristan MD [address] [place] [address] Assigned OBGYN Provider 08/06/23 documented as of this encounter
--- OUTSIDE RECORDS SUMMARY | 2024-09-18 17:21 | XMS_ITS | Encounter Summary ---
Author Organization [place] Address [address] [place] [address]. [place] [address] Care Team Providers Care Die Cutting Machine Operator Name Role Phone Billie Guadarrama Primary Care Provider [phone] Rocio Mccarthy MD Unavailable Anthony Shaffer MD Unavailable Rocio Mccarthy MD Unavailable Erica Tristan MD Unavailable [phone] Encounter Details Date Type Department Care Team (Late st Contact Info) Description 06/08/2021 MyC Medical Advice [facility] [address] [facility] [address] [place] [address] Chelita Harrell, [facility] Social History Tobacco Use Types Packs/Day [...] Assigned at Female 10/05/2020 9:54 PM ON SITE SOIL EVALUATOR Legal Sex Female 4:15 AM ON SITE SOIL EVALUATOR Gender Identity Female 10/05/2020 9:54 PM ON SITE SOIL EVALUATOR Sexual Orientation Straight 10/05/2020 9: 54 PM ON SITE SOIL EVALUATOR COVID-19 Exposure Response Date Recorded In the last month, have you been in contact with someone who was confirmed or suspected to have Coronavirus / COVID-19? No / Unsure 06/04/2021 4:39 PM CDT documented as of this encounter Plan of Treatment Upcoming Encounters Date Type Department Care Team (Late st Contact Info) Description 12/31/2024 11:00 AM CDT Virtual Visit [facility] [address] [facility] [address] [place] [phone] Rocio Mccarthy MD [address] [place] [address] documented as of this encounter Visit Diagnoses Not on filedocumented in this encounter Care Teams Die Cutting Machine Operator Relationship Specialty Start Date End Date Billie Guadarrama PCP - General 12/17/19 Rocio Mccarthy MD [address] [place], [place] [address] Assigned Endocrinology Provider 08/01/20 11/28/21 Anthony Shaffer MD [address] [place], [place] [address] Assigned OBGYN Provider 05/10/21 Rocio Mccarthy MD [address] [place] [address] Assigned Endocrinology Provider 04/24/22 Erica Tristan MD [address] [place], [place] [address] Assigned OBGYN Provider 08/06/23 documented as of this encounter
--- OUTSIDE RECORDS SUMMARY | 2024-09-18 17:21 | XMS_ITS | Encounter Summary ---
Author Organization [facility] Address [address] [place] [address]. [place] [address] Care Team Providers Care Nuclear Fuels Research Engineer Name Role Phone Billie Guadarrama Primary Care Provider Rocio Mccarthy MD Unavailable [phone] Anthony Shaffer MD Unavailable Rocio Mccarthy MD Unavailable [phone] Erica Tristan MD Unavailable [phone] Reason for Visit * Reason Onset Date Comments MyChart Communication 10/05/2020 Encounter Details Date Type Department Care Team (Latest Contact Info) Description 10/05/2020 MyC Medical Advice [facility] [address] [facility] [address] [place] [address] Rocio Mccarthy MD [address] [place] [address] MyChart Communication Social History Tobacco [...] Sex Assigned at Female 10/05/2020 9:54 PM IT INTEGRATION ARCHITECT Legal Sex Female 4:15 AM IT INTEGRATION ARCHITECT Gender Identity Female 10/05/2020 9:54 PM IT INTEGRATION ARCHITECT Sexual Orientation Straight 10/05/2020 9: 54 PM IT INTEGRATION ARCHITECT COVID-19 Exposure Response Date Recorded In the last month, have you been in contact with someone who was confirmed or suspected to have Coronavirus / COVID-19? No / Unsure 10/08/2020 8:54 AM IT INTEGRATION ARCHITECT documented as of this encounter Miscellaneous Notes * Telephone Encounter - Janis Kendrick, RN - 10/06/2020 3:51 PM CST My chart message sent by patient. My chart message sent to patient. INTEGRATION ARCHITECT documented in this encounter Plan of Treatment Upcoming Encounters Date Type Department Care Team (Late st Contact Info) Description 12/31/2024 11:00 AM CDT Virtual Visit [facility] [address] [facility] [address] [place] [address] Rocio Mccarthy MD [address] [place] [address] [address] [place], [place] [address] documented as of this encounter Visit Diagnoses Not on filedocumented in this encounter Care Teams Nuclear Fuels Research Engineer Relationship Specialty Start Date End Date Billie Guadarrama PCP - General 12/17/19 Rocio Mccarthy MD [address] [place], [place] [address] Assigned Endocrinology Provider 08/01/20 11/28/21 Anthony Shaffer MD [address] [facility] [address] [place], [place] [address] Assigned OBGYN Provider 05/10/21 Rocio Mccarthy MD [address] [facility] 200 [place] [address] Assigned Endocrinology Provider 04/24/22 Erica Tristan MD [address] [facility] [address] [place] [address] Assigned OBGYN Provider 08/06/23 documented as of this encounter
--- OUTSIDE RECORDS SUMMARY | 2024-09-18 17:21 | XMS_ITS | Encounter Summary ---
Author Organization [place] Address [address] [place] [address] Care Team Providers Care Router Machine Operator Name Role Phone Tucker Michel MD Primary Care Provider [phone] Frw, None Primary Care Provider Unavailabl Billie Jensen Primary Care Provider [phone] Rocio Mccarthy MD Unavailable [phone] Anthony Shaffer MD Unavailable [phone] Rocio Mccarthy MD Unavailable [phone] Erica Tristan MD Unavailable [phone] Reason for Visit * Reason Comments Abstract Encounter Details Date Type Department Care Team (Late st Contact Info) Description 05/22/2001 Abstract [facility] [place] [facility] [address] [place] [phone] Bridge Repairer, KFredisJ Social History Tobacco Use Types Packs/Day Years Used Date Smoking Tobacco: Never Assessed Comments:NO 2ND HAND SMOKE A T HOME Alcohol Use Standard Drinks/Week Comments Not Asked 0 (1 standard drink = 0.6 oz pur e alcohol) Comments Unknown Sex and Gender Information Value Date Recorded Sex Assigned at Female 10/05/2020 9:54 PM MEDICAL ADVISOR Legal Sex Female 4:15 AM MEDICAL ADVISOR Gender Identity Female 10/05/2020 9:54 PM MEDICAL ADVISOR Sexual Orientation Straight 10/05/2020 9: 54 PM MEDICAL ADVISOR documented as of this encounter Plan of Treatment Upcoming Encounters Date Type Department Care Team (Late st Contact Info) Description 12/31/2024 11:00 AM CDT Virtual Visit [facility] [address] [place] [phone] Rocio Mccarthy MD [address] [place] [address] documented as of this encounter Visit Diagnoses Not on filedocumented in this encounter Care Teams Router Machine Operator Relationship Specialty Start Date End Date Tucker Michel MD [facility] [address] [facility] [address] [place] [address] PCP - General 11/02/00 02/05/13 Frw, None PCP - General Family Practice 02/06/13 06/09/17 Billie Guadarrama PCP - General 12/17/19 Rocio Mccarthy MD [address] [place], [place] [address] Assigned Endocrinology Provider 08/01/20 11/28/21 Anthony Shaffer MD [address] [facility] [address] [place], [place] [address] Assigned OBGYN Provider 05/10/21 Rocio Mccarthy MD [address] [place], [place] [address] Assigned Endocrinology Provider 04/24/22 Erica Tristan MD [address] [place], [place] [address] Assigned OBGYN Provider 08/06/23 documented as of this encounter
--- OUTSIDE RECORDS SUMMARY | 2024-09-18 17:21 | XMS_ITS | Encounter Summary ---
Author Organization [place] Address [address] [place] [address]. [place] [address] Care Team Providers Care Silk Screen Processor Name Role Phone Billie Guadarrama Primary Care Provider [phone] Rocio Mccarthy MD Unavailable Erica Tristan MD Unavailable [phone] Reason for Visit * Auth/Cert (Routine) Specialty Diagnoses / Procedures Referred By Contac t Referred To Contact hide inspector Diagnoses Indication for care in labor or delivery Indication for care in labor or delivery [facility] [address] [place] [address] Phone: tel: fax: Referral ID Status Reason Start Date Expiration Date Visits Re quested Visits Authorized [id number] 1 1 Encounter Details Date Type Department Care Team (Late st Contact Info) Description 10/19/2023 Hospital Encounter [facility] [address] [place] [address] Simon Marcial MD [address] [facility] 200 [place] [address] Social History Tobacco Use Types Packs/Day Years [...] Sex Assigned at Female 10/05/2020 9:54 PM CW OPERATOR Legal Sex Female 4:15 AM CW OPERATOR Gender Identity Female 10/05/2020 9:54 PM CW OPERATOR Sexual Orientation Straight 10/05/2020 9: 54 PM CW OPERATOR documented as of this encounter H&P Notes * Lisa Matthew MD - 10/19/2023 5:30 PM CST Admission H and P: S: Pt is a transfer to [facility] from [facility] at 32+2/7 wks. She has a history of PTC in prior at 32 weeks without delivery until term. Today she started to note increase in contractions. Cervix was found to be 3 cm at [facility]. Theygave her BMZ, started nifedipine and Magnesium Sulfate and transferred her to [facility] for antepartummanagement. She has history [...] profolaxis. Continue home medications. Lisa Matthew MD OPERATOR documented in this encounter Plan of Treatment Upcoming Encounters Date Type Department Care Team (Late st Contact Info) Description 12/31/2024 11:00 AM CDT Virtual Visit [facility] [address] [place] [phone] Rocio Mccarthy MD [address] [place] [address] documented as of this encounter Visit Diagnoses Not on filedocumented in this encounter Additional Health Concerns Assessment Noted Time PHQ-9 Depression Total Score: 11 023 10:04 AM CDT documented as of this encounter Care Teams Silk Screen Processor Relationship Specialty Start Date End Date Billie Guadarrama PCP - General 12/17/19 Rocio Mccarthy MD [address] [place] [address] Assigned Endocrinology Provider 04/24/22 Erica Tristan MD [address] [place], [place] [address] Assigned OBGYN Provider 08/06/23 documented as of this encounter
--- OUTSIDE RECORDS SUMMARY | 2024-09-18 17:21 | XMS_ITS | Encounter Summary ---
Author Organization [place] Address [address] [place] [address]. 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 [...] Sex Assigned at Female 10/05/2020 9:54 PM FELLMONGERY WORKER Legal Sex Female 4:15 AM FELLMONGERY WORKER Gender Identity Female 10/05/2020 9:54 PM FELLMONGERY WORKER Sexual Orientation Straight 10/05/2020 9: 54 PM FELLMONGERY WORKER documented as of this encounter Plan of Treatment Upcoming Encounters Date Type Department Care Team (Late st Contact Info) Description 12/31/2024 11:00 AM CDT Virtual Visit [facility] [address] [facility] [address] [place] [address] Rocio Mccarthy MD [address] [place] [address] documented as of this encounter Results * (ABNORMAL) T3 Free (11/18/2021 12:41 PM FELLMONGERY WORKER) T3 Free 1.5(L) 2.3 - 4.2 pg/mL 11/18/2021 6:34 PM FELLMONGERY WORKER [facility] Blood VENOUS BLOOD / Unknown Venipuncture / Unknown 11/18/2021 12:41 PM FELLMONGERY WORKER 11/18/2021 12:41 PM FELLMONGERY WORKER Rocio Mccarthy MD LAB - BLOOD ORDERABLES Fi nal Result [facility] [address] [place] [address], [address] [address], [facility] [phone] * (ABNORMAL) T4 free (11/18/2021 12:41 PM FELLMONGERY WORKER) Free T4 0.64(L) 0.76 - 1.46 ng/dL 11/18/2021 7:16 PM FELLMONGERY WORKER [facility] Blood VENOUS BLOOD / Unknown Venipuncture / Unknown 11/18/2021 12:41 PM FELLMONGERY WORKER 11/18/2021 12:41 PM FELLMONGERY WORKER Rocio Mccarthy MD LAB - BLOOD ORDERABLES Fi nal Result [facility] [address] [place] [address] Lab (no room number, 1st floor of [facility] [place] [place] [address], [facility] [phone] * (ABNORMAL) TSH (11/18/2021 12:41 PM FELLMONGERY WORKER) Pathologist [facility] TSH 104.91(H) 0.40 - 4.00 mU/L 11/18/2021 8:05 PM FELLMONGERY WORKER LABORATORY Blood VENOUS BLOOD / Unknown Venipuncture / Unknown 11/18/2021 12:41 PM FELLMONGERY WORKER 11/18/2021 12:41 PM FELLMONGERY WORKER Rocio Mccarthy MD LAB - BLOOD ORDERABLES Fi nal Result LABORATORY [facility] [address] [place] [address] Lab (no room number, 1st floor of clinic) [place] [address], [facility] [phone] * Thyroglobulin and Antibody Reflex (11/18/2021 12:41 PM FELLMONGERY WORKER) Pathologist [facility] Thyroglobulin Antibody <20 <40 IU/mL 11/19/2021 1:39 PM FELLMONGERY WORKER [facility]END [facility] Blood VENOUS BLOOD / Unknown Venipuncture / Unknown 11/18/2021 12:41 PM FELLMONGERY WORKER 11/18/2021 12:41 PM FELLMONGERY WORKER Rocio Mccarthy MD LAB - BLOOD ORDERABLES Fi nal Result [facility]ENDO [facility]Prot[facility]Endo [address] [facility] [address], [address] [place] [address], [facility] [phone] * T3 reverse (11/18/2021 12:41 PM FELLMONGERY WORKER) Pathologist [facility] T3, Reverse ng/dL 10.3 9.0 - 27.0 ng/dL 11/23/2021 4:48 PM FELLMONGERY WORKER [facility] Comment: INTERPRETIVE INFORMATION: Triiodothyronine, Reverse - LC-MS/MS This test was developed and its performance characteristics determined by [facility]. It has not been cleared or approved by the US Food and Drug Administration. This test was performed in a CLIA certified laboratory and is intended for clinical purposes. 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 [facility] [address] [place] [address] Assigned Endocrinology Provider 08/01/20 11/28/21 Anthony Shaffer MD [address] [place], [place] [address] Assigned OBGYN Provider 05/10/21 Rocio Mccarthy MD [address] [place] [address] Assigned Endocrinology Provider 04/24/22 Erica Tristan MD [address] [place] [address] Assigned OBGYN Provider 08/06/23 documented as of this encounter
--- OUTSIDE RECORDS SUMMARY | 2024-09-18 17:21 | XMS_ITS | Encounter Summary ---
Author Organization [place] Address [address] [place] [address]. [place] [address] Care Team Providers Care Avionics Technician Name Role Phone Billie Guadarrama Primary Care Provider Anthony Shaffer MD Unavailable [phone] Rocio Mccarthy MD Unavailable [phone] Erica Tristan MD Unavailable [phone] Encounter Details Date Type Department Care Team (Late st Contact Info) Description 04/19/2022 MyC Medical Advice [address] [phone] Jina Harrell V, RN Social History Tobacco [...] Sex Assigned at Female 10/05/2020 9:54 PM WIRE STRAIGHTENER Legal Sex Female 4:15 AM WIRE STRAIGHTENER Gender Identity Female 10/05/2020 9:54 PM WIRE STRAIGHTENER Sexual Orientation Straight 10/05/2020 9: 54 PM WIRE STRAIGHTENER COVID-19 Exposure Response Date Recorded In the last 10 days, have yo u been in contact with someone who was confirmed or suspected to have Coronavirus/COVID-19? No / Unsure 04/05/2022 11:57 AM CDT documented as of this encounter Plan of Treatment Upcoming Encounters Date Type Department Care Team (Late st Contact Info) Description 12/31/2024 11:00 AM CDT Virtual Visit [facility] [address] [facility] [address] [place] [phone] Rocio Mccarthy MD [address] [place], [place] [address] documented as of this encounter Visit Diagnoses Not on filedocumented in this encounter Care Teams Avionics Technician Relationship Specialty Start Date End Date Billie Guadarrama PCP - General 12/17/19 Anthony Shaffer MD [address] [place], [place] [address] Assigned OBGYN Provider 05/10/21 Rocio Mccarthy MD [address] [place], [place] [address] Assigned Endocrinology Provider 04/24/22 Erica Tristan MD [address] [place] [address] Assigned OBGYN Provider 08/06/23 documented as of this encounter
--- OUTSIDE RECORDS SUMMARY | 2024-09-18 17:21 | XMS_ITS | Encounter Summary ---
Author Organization [place] Address [address] [place] [address] Care Team Providers Care Telescope Repairer Name Role Phone Billie Guadarrama Primary Care Provider Rocio Mccarthy MD Unavailable [phone] Erica Tristan MD Unavailable [phone] Encounter Details Date Type Department Care Team (Late st Contact Info) Description 10/28/2023 [facility] Medical Advice [facility] [place] [address] [place], [place] [address] Lisa Larose, RN Social History Tobacco Use [...] Sex Assigned at Female 10/05/2020 9:54 PM PATENT CLERK Legal Sex Female 4:15 AM PATENT CLERK Gender Identity Female 10/05/2020 9:54 PM PATENT CLERK Sexual Orientation Straight 10/05/2020 9: 54 PM PATENT CLERK documented as of this encounter Plan of Treatment Upcoming Encounters Date Type Department Care Team (Late st Contact Info) Description 12/31/2024 11:00 AM CDT Virtual Visit [facility] [address] [place] [address] Rocio Mccarthy MD [address] [place] [address] documented as of this encounter Visit Diagnoses Not on filedocumented in this encounter Additional Health Concerns Assessment Noted Time PHQ-9 Depression Total Score: 11 023 10:04 AM CDT documented as of this encounter Care Teams Telescope Repairer Relationship Specialty Start Date End Date Billie Guadarrama PCP - General 12/17/19 Rocio Mccarthy MD [address] [place] [address] Assigned Endocrinology Provider 04/24/22 Erica Tristan MD [address] [facility] [address] [place] [address] Assigned OBGYN Provider 08/06/23 documented as of this encounter
--- OUTSIDE RECORDS SUMMARY | 2024-09-18 17:21 | XMS_ITS | Encounter Summary ---
Author Organization [place] Address [address] [place] [address]. [place] [address] Care Team Providers Care Calf Skinner Name Role Phone Billie Guadarrama Primary Care Provider Rocio Mccarthy MD Unavailable [phone] Erica Tristan MD Unavailable [phone] Encounter Details Date Type Department Care Team (Latest Contact Info) Description 05/30/[address] [facility] [address] [facility] [address] [place] [address] Rocio Mccarthy MD [address] [place] [address] Hypothyroidism due to Duane's [...] Sex Assigned at Female 10/05/2020 9:54 PM SNOWMOBILE MECHANIC Legal Sex Female 4:15 AM SNOWMOBILE MECHANIC Gender Identity Female 10/05/2020 9:54 PM SNOWMOBILE MECHANIC Sexual Orientation Straight 10/05/2020 9: 54 PM SNOWMOBILE MECHANIC documented as of this encounter Miscellaneous Notes * Telephone Encounter - Chelita Harrell CMA - 06/08/2023 9:08 AM CDT She can only do Tuesdays. I put her down for 06/21 at 10:30 for a video visit. Maritza Harrell CMA [facility] [phone] * Telephone Encounter - Chelita Harrell CMA - 06/08/2023 8:50 AM CDT Message sent via [employer]. Maritza Harrell CMA [facility] [phone] * Telephone Encounter - Nahed Woodruff - 06/06/2023 11:43 AM CDT 06.06- lmtcb x2 * Telephone Encounter - Janice Woodruff - 06/02/2023 11:59 AM CDT 06.02- lmtcb x1 to schedule with Dr. Mccarthy * Telephone Encounter - Rocio Mccarthy MD - 05/31/2023 2:02 PM CDT Ok for free t3. She is not on t3 supplement * Telephone Encounter - Nahed Woodruff - 05/31/2023 11:28 AM CDT 05.31- lmtcb x1 * Telephone Encounter - Ramya [...] book in next available open ANGÉLICA slot. (10/11) Please note that there are 2 ANGÉLICA slots/day. Please make sure that 1 ANGÉLICA slot is available for urgent needs. Let me know if you have any questions. documented in this encounter Plan of Treatment Upcoming Encounters Date Type Department Care Team (Late st Contact Info) Description 12/31/2024 11:00 [address] CDT Virtual [address] [facility] [address] [facility] [place] [address] Rocio Mccarthy MD [address] [place] [address] documented as of this encounter Results * T3, Free (06/07/2023 3:33 PM CDT) T3 Free 2.4 2.0 - 4.4 pg/mL 06/07/2023 8:40 PM CDT [facility] Blood BLOOD SPECIMEN / Unknown Venipuncture / Unknown 06/07/2023 3:33 PM CDT 06/07/2023 3:33 PM CDT Rocio Mccatrhy MD LAB - BLOOD ORDERABLES Fi nal Result [facility] [place] [facility] [address] [facility] [place] [address] [phone] documented in this encounter Visit Diagnoses Diagnosis 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
--- OUTSIDE RECORDS SUMMARY | 2024-09-18 17:21 | XMS_ITS | Encounter Summary ---
Author Organization [facility] Address [address] [place] [address]. [place] [address] Care Team Providers Care Boot Maker Name Role Phone Billie Guadarrama Primary Care Provider Rocio Mccarthy MD Unavailable [phone] Erica Tristan MD Unavailable [phone] Encounter Details Date Type Department Care Team (Late st Contact Info) Description 08/15/2023 MyC Medical Advice [facility] [address] [facility] [address] [place] [address] Rocio Mccarthy MD [address] [place] [address] Social History Tobacco Use Types [...] Sex Assigned at Female 10/05/2020 9:54 PM STORE WAREHOUSE ASSOCIATE Legal Sex Female 4:15 AM STORE WAREHOUSE ASSOCIATE Gender Identity Female 10/05/2020 9:54 PM STORE WAREHOUSE ASSOCIATE Sexual Orientation Straight 10/05/2020 9: 54 PM STORE WAREHOUSE ASSOCIATE documented as of this encounter Miscellaneous Notes * Telephone Encounter - Jina Harrell RN - 08/15/2023 9:07 AM STORE WAREHOUSE ASSOCIATE Recommend close follow-up during --recommend lab every 2-3 months during or sooner based on dose adjustment given history of fluctuating labs she needs close follow-up. Follow-up with endocrinology after delivery. E WAREHOUSE ASSOCIATE documented in this encounter Plan of Treatment Upcoming Encounters Date Type Department Care Team (Late st Contact Info) Description 12/31/2024 11:00 AM CDT Virtual Visit [facility] [address] [address] [place] [phone] Rocio Mccarthy MD [address] [place] [address] documented as of this encounter Visit Diagnoses Not on filedocumented in this encounter Additional Health Concerns Assessment Noted Time PHQ-9 Depression Total Score: 11 023 10:04 AM CDT documented as of this encounter Care Teams Boot Maker Relationship Specialty Start Date End Date Billie Guadarrama PCP - General 12/17/19 Rocio Mccarthy MD [address] [place], [place] [address] Assigned Endocrinology Provider 04/24/22 Erica Tristan MD [address] [place], [place] [address] Assigned OBGYN Provider 08/06/23 documented as of this encounter
--- OUTSIDE RECORDS SUMMARY | 2024-09-18 17:21 | XMS_ITS | Encounter Summary ---
Author Organization [place] Address [address] [place] [address]. [place] [address] Care Team Providers Care Circuit Board Assembler Name Role Phone Billie Guadarrama Primary Care Provider [phone] Rocio Mccarthy MD Unavailable [phone] Anthony Shaffer MD Unavailable Rocio Mccarthy MD Unavailable Erica Tristan MD Unavailable [phone] Encounter Details Date Type Department Care Team (Late st Contact Info) Description 08/01/2020 MyC Medical Advice [facility] [address] [place] [address] Rocio Mccarthy MD [address] [place] [address] Social History Tobacco Use Types [...] Assigned at Female 10/05/2020 9:54 PM BODY DIE MAKER Legal Sex Female 4:15 AM BODY DIE MAKER Gender Identity Female 10/05/2020 9:54 PM BODY DIE MAKER Sexual Orientation Straight 10/05/2020 9: 54 PM BODY DIE MAKER documented as of this encounter Miscellaneous Notes * Telephone Encounter - Angelic Cavazos RN - 08/01/2020 1:21 PM CDT Please see [employer] message, does patient need to see derm? Please advise, Thank you. documented in this encounter Plan of Treatment Upcoming Encounters Date Type Department Care Team (Late st Contact Info) Description 12/31/2024 11:00 AM CDT Virtual Visit [facility] [address] [facility] [address] [place] [phone] Rocio Mccarthy MD [address] [place] [address] 200 [place], [place] [address] documented as of this encounter Visit Diagnoses Not on filedocumented in this encounter Care Teams Circuit Board Assembler Relationship Specialty Start Date End Date Billie Guadarrama PCP - General 12/17/19 Rocio Mccarthy MD [address] [address] [place], [place] [address] Assigned Endocrinology Provider 08/01/20 11/28/21 Anthony Shaffer MD [address] [address] [place], [place] [address] Assigned OBGYN Provider 05/10/21 Rocio Mccarthy MD [address] [address] [place], [place] [address] Assigned Endocrinology Provider 04/24/22 Erica Tristan MD [address] [place] [address] Assigned OBGYN Provider 08/06/23 documented as of this encounter
--- OUTSIDE RECORDS SUMMARY | 2024-09-18 17:21 | XMS_ITS | Encounter Summary ---
Author Organization [facility] Address [address] [place] [address]. 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 Thyroid labs are in place. Please follow up with PCP for neck swelling. If needed , can be seen by endocrinology. Previous thyroid US 2021 was unremarkable. * Telephone Encounter - Jina Harrell RN - 06/25/2024 10:07 AM CDT KIM 10/18/23 FOV none Please advise on follow up- as no follow up scheduled. Per last notes pt was to follow up after delivery Based on 10/2022 labs-- Increase levothyroxine to 200 mcg/day (10/18/2023) Labs in 4-6 weeks and if stable, then recheck after delivery. Follow up in 6 months with labs prior. Recommend close follow-up during --recommend lab every 2-3 months during or sooner based on dose adjustment given history of fluctuating labs she needs close follow-up. Follow-up with endocrinology after delivery. Labs 02/13/24-Currently taking levothyroxine to 200 mcg/day (10/18/2023) ( dose was increased from 175 mcg at that time) Based on 02/2024 labs-- recommend to decrease dose to 188 mcg/day (100+88) Labs few days prior to next visit. documented in this encounter Plan of Treatment Upcoming Encounters Date Type Department Care Team (Late st Contact Info) Description 12/31/2024 11:00 AM CDT Virtual Visit [facility] [address] [place] [address] Rocio Mccarthy MD [address] [place] [address] documented as of this encounter Visit Diagnoses Not on filedocumented in this encounter Additional Health Concerns Assessment Noted Time PHQ-9 Depression Total Score: 11 023 10:04 AM CDT documented as of this encounter Care Teams Half Section Ironer Relationship Specialty Start Date End Date Billie Guadarrama PCP - General 12/17/19 Rocio Mccarthy MD [address] [place] [address] Assigned Endocrinology Provider 04/24/22 Erica Tristan MD [address] [facility] [address] [place], [place] [address] Assigned OBGYN Provider 08/06/23 documented as of this encounter
--- OUTSIDE RECORDS SUMMARY | 2024-09-18 17:21 | XMS_ITS | Encounter Summary ---
Author Organization [facility] Address [address] [place] [address]. 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 [...] Sex Assigned at Female 10/05/2020 9:54 PM REGISTERED PUBLIC SURVEYOR Legal Sex Female 4:15 AM REGISTERED PUBLIC SURVEYOR Gender Identity Female 10/05/2020 9:54 PM REGISTERED PUBLIC SURVEYOR Sexual Orientation Straight 10/05/2020 9: 54 PM REGISTERED PUBLIC SURVEYOR documented as of this encounter Plan of Treatment Upcoming Encounters Date Type Department Care Team (Late st Contact Info) Description 12/31/2024 11:00 AM CDT Virtual Visit [facility] [address] [place] [address] Rocio Mccarthy MD [address] [place] [address] documented as of this encounter Procedures Procedure Name Priority Date/Time Associated Diagnosis Comments TSH Routine 06/25/2024 3:34 PM CDT 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 T4 FREE Routine 06/25/2024 3:34 PM CDT 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 T3 FREE Routine 06/25/2024 3:34 PM CDT 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 documented in this encounter Results * (ABNORMAL) T3 Free (06/25/2024 3:34 PM CDT) T3 Free 1.3(L) 2.0 - 4.4 pg/mL 06/25/2024 8:57 PM CDT [facility] Blood BLOOD SPECIMEN / Unknown Venipuncture / Unknown 06/25/2024 3:34 PM CDT 06/25/2024 3:34 PM CDT us Rocio Mccarthy MD LAB - BLOOD ORDERABLES Fi nal Result [facility] [place] Core Lab [address] [facility], [address] [place] [address] * (ABNORMAL) TSH (06/25/2024 3:34 PM CDT) TSH 57.80(H) 0.30 - 4.20 uIU/mL 06/25/2024 8:57 PM CDT [facility] Blood BLOOD SPECIMEN / Unknown Venipuncture / Unknown 06/25/2024 3:34 PM CDT 06/25/2024 3:34 PM CDT Rocio Mccarthy MD LAB - BLOOD ORDERABLES Fi nal Result LABORATORY [facility] Core Lab [address] [facility], [address] [id number] * (ABNORMAL) T4 free (06/25/2024 3:34 PM CDT) Free T4 0.22(L) 0.90 - 1.70 ng/dL 06/25/2024 8:57 PM CDT [facility] Blood BLOOD SPECIMEN / Unknown Venipuncture / Unknown 06/25/2024 3:34 PM CDT 06/25/2024 3:34 PM CDT Rocio Mccarthy MD LAB - BLOOD ORDERABLES Fi nal Result Performing Organization Address City/[facility]/ZIP Co de Phone Number LABORATORY [facility] Core Lab [address] [facility], [address] documented in this encounter Visit Diagnoses Diagnosis 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
--- OUTSIDE RECORDS SUMMARY | 2024-09-18 17:21 | XMS_ITS | Encounter Summary ---
Author Organization [place] Address [address] [place] [address]. 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 Follow-up with endocrinology after delivery. AL HEALTH NURSE PRACTITIONER documented in this encounter Plan of Treatment Upcoming Encounters Date Type Department Care Team (Late st Contact Info) Description 12/31/2024 11:00 AM CDT Virtual Visit [facility] [address] [facility] [address] [place] [address] Rocio Mccarthy MD [address] [place] [address] documented as of this encounter Results * (ABNORMAL) T4, free (02/13/2024 2:02 PM CDT) Free T4 2.12(H) 0.90 - 1.70 ng/dL 02/14/2024 12:34 AM CDT [facility] Blood BLOOD SPECIMEN / Unknown Venipuncture / Unknown 02/13/2024 2:02 PM CDT 02/13/2024 2:02 PM CDT Rocio Mccarthy MD LAB - BLOOD ORDERABLES Fi nal Result LABORATORY [facility] [address] [place] [address], [address] [address] [place] [address] * (ABNORMAL) TSH (02/13/2024 2:02 PM CDT) TSH 0.01(L) 0.30 - 4.20 uIU/mL 02/14/2024 12:34 AM CDT U [facility] Blood BLOOD SPECIMEN / Unknown Venipuncture / Unknown 02/13/2024 2:02 PM CDT 02/13/2024 2:02 PM CDT Rocio Mccarthy MD LAB - BLOOD ORDERABLES Fi nal Result LABORATORY [facility] [address] [place] [address], [facility] [address] [address] [place] [address] documented in this encounter Visit Diagnoses Diagnosis 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
--- OUTSIDE RECORDS SUMMARY | 2024-09-18 17:21 | XMS_ITS | Encounter Summary ---
Author Organization [place] Address [address] [place] [address]. [place] [address] Care Team Providers Care Information And Data Architect Analyst Name Role Phone Billie Guadarrama Primary Care Provider [phone] Rocio Mccarthy MD Unavailable [phone] Erica Tristan MD Unavailable [phone] Encounter Details Date Type Department Care Team (Late st Contact Info) Description 05/31/2022 MyC Medical Advice [facility] [address] [facility] [address] [place] [address] Rocio Mccarthy MD [address] [place] [address] Social History Tobacco Use Types [...] Sex Assigned at Female 10/05/2020 9:54 PM 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 Legal Sex Female 4:15 AM 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 Gender Identity Female 10/05/2020 9:54 PM 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 Sexual Orientation Straight 10/05/2020 9: 54 PM 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 documented as of this encounter Miscellaneous [...] 12/31/2024 11:00 AM CDT Virtual Visit [facility] [address] [facility] [address] [place] [address] Rocio Mccarthy MD [address] [place], [place] [address] documented as of this encounter Visit Diagnoses Not on filedocumented in this encounter Care Teams Information And Data Architect Analyst Relationship Specialty Start Date End Date Billie Guadarrama PCP - General 12/17/19 Rocio Mccarthy MD [address] [place], [place] [address] Assigned Endocrinology Provider 04/24/22 Erica Tristan MD [address] [place], [place] [address] Assigned OBGYN Provider 08/06/23 documented as of this encounter
== END 2024-09-18 17:16 | disposition home or self-care (01) ==
PROVIDERS: PCP Family Medicine; Visit Provider Registered Nurse
DX: N91.1 Secondary amenorrhea (principal); N89.8 Other specified noninflammatory disorders of vagina; B37.2 Candidiasis of skin and nail
CPT/HCPCS: 81513; 83001; 83002; 84146; 84439; 84443; 87481; 87661

== ENCOUNTER 2024-09-25 14:35 | Outpatient (CLI) | payer MEDICAID, SELFPAY | END 2024-09-25 14:36 | disposition home or self-care (01) | LOC: NFLDREF 09-27 03:41 | PROVIDERS: PCP Family Medicine; Referring Provider Family Medicine; Visit Provider Registered Nurse | DX: B37.2 Candidiasis of skin and nail (principal); E22.1 Hyperprolactinemia; Z11.4 Encounter for screening for human immunodeficiency virus [HIV] | CPT/HCPCS: 82565; 84520; 86703 ==

== ENCOUNTER 2024-09-25 15:37 | Outpatient (CLI) | payer MEDICAID, SELFPAY ==
--- NOTE | 2024-09-25 15:30 | CRLHL7_ITS ---
For Patients: As a result of the Century Cures Act, medical imaging exams and procedure reports are released immediately into your electronic medical record. You may view this report before your referring provider. If you have questions, please contact your health care provider. INDICATION: Hyperprolactinemia. TECHNIQUE: High-resolution sagittal and coronal T1 weighted images with and without gadolinium contrast and high-resolution coronal T2 weighted images through the sella turcica. Routine axial FLAIR T2 diffusion-weighted and gadolinium enhanced axial T1 weighted images through the entire brain. FINDINGS: Sella turcica normal in size. There is a small hypo enhancing area in the left side of the pituitary gland that measures approximately 5 mm x 7 mm. There is associated fullness and asymmetric elevation of the left side of the pituitary known findings consistent with pituitary microadenoma. It is adjacent to but does not surround the adjacent cavernous internal carotid artery. Infundibulum deviated very slightly to the right. No suprasellar mass nor compression of the optic chiasm. Routine brain images show normal ventricular size and shape no evidence of recent ischemic infarction or intracranial hemorrhage no areas of diffusion restriction. No enhancing intra-axial lesion. IMPRESSION: 1. Small hypo enhancing lesion in the left side of the pituitary gland consistent with pituitary microadenoma. No suprasellar mass effect. 2. Normal routine MRI brain. Dictated by Darryn Rincon MD @ 09/27/2024 9:46:34 AM (Electronically Signed)
== END 2024-09-25 15:38 | disposition home or self-care (01) ==
LOC: MRI 15:37
PROVIDERS: PCP Family Medicine; Visit Provider Registered Nurse
DX: E22.1 Hyperprolactinemia (principal); E23.7 Disorder of pituitary gland, unspecified
CPT/HCPCS: 70553; A9575

== ENCOUNTER 2024-11-10 09:47 | Inpatient (IN) | payer MEDICAID, SELFPAY ==
[2024-11-10] VITALS (22 sets, daily range): BP systolic 105–126; BP diastolic 65–96; PULSE 79–124; RESP 16–18; TEMP 36.3–37.3; O2SAT 97–100; BMI 39.1
--- OUTSIDE RECORDS SUMMARY | 2024-11-10 09:49 | XMS_ITS | Encounter Summary ---
Author Organization [facility] Address [address] [place] [address]. [place] [address] Care Team Providers Care Metals Analyst Name Role Phone Billie Guadarrama Primary Care Provider Rocio Mccarthy MD Unavailable Erica Tristan MD Unavailable [phone] Encounter Details Date Type Department Care Team (Latest Contact Info) Description 12/16/[address] 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 Follow-up with endocrinology after delivery. ERCIAL ASSISTANT documented in this encounter Plan of Treatment Upcoming Encounters Date Type Department Care Team (Late st Contact Info) Description 12/31/2024 11:00 AM CDT Virtual Visit [facility] [address] [facility] [address] [place] [address] Rocio Mccarthy MD [address] [place] [address] documented as of this encounter Results * (ABNORMAL) T4, free (02/13/2024 2:02 PM CDT) Free T4 2.12(H) 0.90 - 1.70 ng/dL 02/14/2024 12:34 AM CDT [facility] Blood BLOOD SPECIMEN / Unknown Venipuncture / Unknown 02/13/2024 2:02 PM CDT 02/13/2024 2:02 PM CDT Rocio Mccarthy MD LAB - BLOOD ORDERABLES Fi nal Result LABORATORY Formerly [facility] [address] [place] [address], [address] [id number] [place] [address] * (ABNORMAL) TSH (02/13/2024 2:02 PM CDT) TSH 0.01(L) 0.30 - 4.20 uIU/mL 02/14/2024 12:34 AM CDT [facility] Blood BLOOD SPECIMEN / Unknown Venipuncture / Unknown 02/13/2024 2:02 PM CDT 02/13/2024 2:02 PM CDT Rocio Mccarthy MD LAB - BLOOD ORDERABLES Fi nal Result LABORATORY Formerly [facility] [address] [place] [address], [facility] [id number] [place] [address] documented in this encounter Visit Diagnoses Diagnosis 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
--- OUTSIDE RECORDS SUMMARY | 2024-11-10 09:49 | XMS_ITS | Encounter Summary ---
Author Organization [facility] Address [address] [place] [address]. [place] [address] Care Team Providers Care Mail Censor Name Role Phone Billie Guadarrama Primary Care Provider [phone] Rocio Mccarthy MD Unavailable [phone] Erica Tristan MD Unavailable [phone] Reason for Visit * Reason Onset Date Comments Call Back 09/12/2023 Encounter Details Date Type Department Care Team (Late st Contact Info) Description 09/12/2023 Telephone [facility] [address] [place] [address] Rocio Mccarthy MD [address] [place] [address] Call Back Social History Tobacco [...] Sex Assigned at Female 10/05/2020 9:54 PM LOG FEEDER Legal Sex Female 4:15 AM LOG FEEDER Gender Identity Female 10/05/2020 9:54 PM LOG FEEDER Sexual Orientation Straight 10/05/2020 9: 54 PM LOG FEEDER documented as of this encounter Miscellaneous Notes * Telephone Encounter - Rocio Mccarthy MD - 09/15/2023 3:33 PM LOG FEEDER Please see telephone encounter 09/15/2023 FEEDER * Telephone Encounter - Chelita Hahn - 09/12/2023 2:56 PM CST [facility] Phone Message May a detailed message be left on voicemail: yes Reason for Call: Other: SCHEDULE SUPERVISOR would like to know normal references ranges and values patient's care is being based off of. Patient is in 2nd trimester of . When calling , please ask for triage nurse. Action Taken: Other: endo Travel Screening: Not Applicable FEEDER documented in this encounter Plan of Treatment Upcoming Encounters Date Type Department Care Team (Late st Contact Info) Description 12/31/2024 11:00 AM CDT Virtual Visit [facility] [address] [facility] [address] [place] [address] Rocio Mccarthy MD [address] [place] [address] documented as of this encounter Visit Diagnoses Not on filedocumented in this encounter Additional Health Concerns Assessment Noted Time PHQ-9 Depression Total Score: 11 023 10:04 AM CDT documented as of this encounter Care Teams Mail Censor Relationship Specialty Start Date End Date Billie Guadarrama PCP - General 12/17/19 Rocio Mccarthy MD [address] [place] [address] Assigned Endocrinology Provider 04/24/22 Erica Tristan MD [address] [place] [address] Assigned OBGYN Provider 08/06/23 documented as of this encounter
--- OUTSIDE RECORDS SUMMARY | 2024-11-10 09:49 | XMS_ITS | Continuity of Care Document ---
Author Organization [facility] Address [address] [place] [address] Phone Care Team Providers Care Marine Electrician Helper Name Role Phone Delisa Castillo CNP Unavailable [...] Drug Urine Toxology With Chromatography OFFICE/OUTPATIENT VISIT, [facility] Advance Directives Directive Yes / No Effective Date File Name No Information Encounters Encounter Description Practice Location Reason(s) For Visit Diagnoses Date Provider Providers Copied on Encounter [facility], [address] [place], [place], [id number] , [place] tel:[phone] [facility] [place] No Information Darnell Hercules. [address] [place], [place], [id number] , [place]. tel:[phone] OFFICE/OUTPAT IENT VISIT, EST [facility], [address] [place], [place], [id number] , [place] tel:[phone] [facility] [place] Widespread pain (chief complaint) Chronic pain syndromeCervicalgi aFibromyalgiaRadic ulopathy, lumbar region 4 [place] Delisa. [address] [place], [id number] , [place]. tel:[phone] Referring Provider: Billie Guadarrama [facility] [address] [place], [address]. tel:[phone] [facility], [address] [place] [address] [place], [id number] , [place] [phone] [facility] [place] No Information 3 [place] Delisa. [address] [place] [address] [place], [id number] , [place]. tel:[phone] Referring Provider: Billie Guadarrama [facility] [address] [place], [address]. tel:[phone] OFFICE/OUTPAT IENT VISIT, EST [facility], [address] [place] [address] [address] [place], [place], [id number] , [place] [phone] [facility] Widespread pain (chief complaint) Chronic pain syndromeCervicalgi aLow back pain, unspecifiedFibromy algia 3 [place] Delisa. [address] [place], [place], [id number] , [place]. tel:[phone] Referring Provider: Billie Guadarrama [facility] [address] [place], [address]. tel:[phone] OFFICE VISIT, EST TELEMEDICINE [facility], [address] [place] [address] [place], [place], [id number] , [place] [phone] [facility] Widespread pain (chief complaint) Chronic pain syndromeCervicalgi aLow back pain, unspecifiedFibromy algia 2 [place] Delisa. [address] [facility] [place], [place], [id number] , [place]. [phone] Referring Provider: Billie Guadarrama [facility] [address] [place], [address]. tel:[phone] [facility], [address] [place], [id number] , [place] tel:[phone] [facility] [place] No Information 2 Darnell Hercules. [address] [facility] [place], [place], [id number] , [place]. tel:[phone] Referring Provider: Billie Guadarrama [facility] [address] [facility], [place], [address]. tel:[phone] OFFICE/OUTPAT IENT VISIT, [facility], [address] [place], [place], [id number] , [place] tel:[phone] [facility] [place] Widespread pain (chief complaint) Chronic pain syndromeFibromyalg iaLow back pain, unspecifiedCervica lgiaEncounter for therapeutic drug level monitoring 2 Darnell Hercules. [address] [facility] [place], [place], [id number] , [place]. tel:[phone] Referring Provider: Billie Guadarrama [facility] [address] [facility], [place], [address]. tel:[phone] Family History Family Member Type Diagnosis Age At Onset Father Problem Low back problems Mother Problem Low back problems Payers Payer name Insurance type Covered alliance party ID [facility] [id number] Social History Type Description Quantity Date Captured Comments Sex Female Smoking Status No Information Chief Complaint And Reason For Visit No Information Reason For Referral Reason For Referral No Information Plan Of Treatment Date Type Action Status Goal Height. Due on d ue Goal PHQ-9. Due on du e Goal Hepatitis C screening. Due o n due Goal Unhealthy drug use screening . Due on due Goal Tobacco Use. Due on 024 due [...] n due Goal Tobacco Use. Due on 023 due Goal Unhealthy drug use screening . Due on due Goal Weight. Due on d ue Goal PHQ-9. Due on du e Goal Tobacco Use. Due on due Goal Medication Reconciliation. D ue on [...] Goal PHQ-9. Due on du e Goal Medication Reconciliation. D ue on due Goal Weight. Due on d ue Goal Weight. Due on d ue Goal [...] Date Complaint History Of Prese nt Illness Comments: Chelsy aguirre presents in clinic for [...] giving .No other concerns today. Widespread pain Severity level i s 9. Duration: chronic. Location of the pain is lower back and BL legs. The client describes it as sharp and achy. It occurs persistently. The problem is fluctuating. Symptom is aggravated by bending, walking upstairs, walking downstairs, sitting, standing, housework, lifting and movement. Relieving factors include massage, rest, heat and cold. Comments: Chelsy aguirre presents for a follow [...] medication options.No other concerns today. Widespread pain Location [...] r/t fibromyalgia referred by Dr. Guadarrama through [facility]. Patient describes burning, numbness, tingling, and [...] cannabis and other pain management options through [facility]. No other concerns today. Widespread pain Severity [...] include diarrhea, dyspnea, fever and incontinence (urinary). Functional Status Date Functional Assessmen t No Information Instructions Date Instruction Additional Infor mation No Information Assessments Type Assessment Date No Information Patient Care Teams Name Effective Dates (start - stop) Status Members No Information
--- OUTSIDE RECORDS SUMMARY | 2024-11-10 09:49 | XMS_ITS | Encounter Summary ---
Author Organization [facility] Address [address] [place] [address]. [place] [address] Care Team Providers Care Thermit Welding Machine Operator Name Role Phone Billie Guadarrama Primary Care Provider Rocio Mccarthy MD Unavailable [phone] Erica Tristan MD Unavailable [phone] Encounter Details Date Type Department Care Team (Late st Contact Info) Description 01/04/2024 [facility] Medical Advice [address] [place] [address] Loren Hilton, RN Social History Tobacco Use Types Packs/Day [...] Sex Assigned at Female 10/05/2020 9:54 PM OTR VAN CDL TRUCK DRIVER Legal Sex Female 4:15 AM OTR VAN CDL TRUCK DRIVER Gender Identity Female 10/05/2020 9:54 PM OTR VAN CDL TRUCK DRIVER Sexual Orientation Straight 10/05/2020 9: 54 PM OTR VAN CDL TRUCK DRIVER documented as of this encounter Plan of Treatment Upcoming Encounters Date Type Department Care Team (Late st Contact Info) Description 12/31/2024 11:00 AM CDT Virtual Visit [facility] [address] [place] [address] Rocio Mccarthy MD [address] [place] [address] documented as of this encounter Visit Diagnoses Not on filedocumented in this encounter Additional Health Concerns Assessment Noted Time PHQ-9 Depression Total Score: 11 023 10:04 AM CDT documented as of this encounter Care Teams Thermit Welding Machine Operator Relationship Specialty Start Date End Date Billie Guadarrama PCP - General 12/17/19 Rocio Mccarthy MD [address] [place] [address] Assigned Endocrinology Provider 04/24/22 Erica Tristan MD [address] [facility] [address] [place] [address] Assigned OBGYN Provider 08/06/23 documented as of this encounter
--- OUTSIDE RECORDS SUMMARY | 2024-11-10 09:49 | XMS_ITS | Encounter Summary ---
Author Organization [facility] Address [address] [place] [address]. [place] [address] Care Team Providers Care Graduate Engineer Name Role Phone Billie Guadarrama Primary Care Provider Rocio Mccarthy MD Unavailable [phone] Erica Tristan MD Unavailable [phone] Encounter Details Date Type Department Care Team (Late st Contact Info) Description 2024 MyC Medical Advice [facility] [address] [facility] [address] [place] [address] Rocio Mccarthy MD [address] [place] [address] Social History Tobacco Use Types [...] Sex Assigned at Female 10/05/2020 9:54 PM PIERCE AND SHAVE PRESS OPERATOR Legal Sex Female 4:15 AM PIERCE AND SHAVE PRESS OPERATOR Gender Identity Female 10/05/2020 9:54 PM PIERCE AND SHAVE PRESS OPERATOR Sexual Orientation Straight 10/05/2020 9: 54 PM PIERCE AND SHAVE PRESS OPERATOR documented as of this encounter [...] CDT Virtual Visit [facility] [address] [place] [address] Rocio Mccarthy MD [address] [place] [address] documented as of this encounter Visit Diagnoses Not on filedocumented in this encounter Additional Health Concerns Assessment Noted Time PHQ-9 Depression Total Score: 11 023 10:04 AM CDT documented as of this encounter Care Teams Graduate Engineer Relationship Specialty Start Date End Date Billie Guadarrama PCP - General 12/17/19 Rocio Mccarthy MD [address] [place] [address] Assigned Endocrinology Provider 04/24/22 Erica Tristan MD [address] [facility] [address] [place], [place] [address] Assigned OBGYN Provider 08/06/23 documented as of this encounter
--- OUTSIDE RECORDS SUMMARY | 2024-11-10 09:49 | XMS_ITS | Encounter Summary ---
Author Organization [facility] Address [address] [place] [address]. [place] [address] Care Team Providers Care Disease Intervention Specialist Name Role Phone Billie Guadarrama Primary Care Provider [phone] Rocio Mccarthy MD Unavailable [phone] Erica Tristan MD Unavailable [phone] Encounter Details Date Type Department Care Team (Late st Contact Info) Description 10/18/2023 MyC Medical Advice [facility] [address] [facility] [address] [place] [address] Chelita Harrell, [facility] Social History Tobacco Use Types Packs/Day [...] Sex Assigned at Female 10/05/2020 9:54 PM SPORTING GOODS SALES MANAGER Legal Sex Female 4:15 AM SPORTING GOODS SALES MANAGER Gender Identity Female 10/05/2020 9:54 PM SPORTING GOODS SALES MANAGER Sexual Orientation Straight 10/05/2020 9: 54 PM SPORTING GOODS SALES MANAGER documented as of this encounter Plan of Treatment Upcoming Encounters Date Type Department Care Team (Late st Contact Info) Description 12/31/2024 11:00 AM CDT Virtual Visit [facility] [address] [place] [address] Rocio Mccarthy MD [address] [place] [address] documented as of this encounter Visit Diagnoses Not on filedocumented in this encounter Additional Health Concerns Assessment Noted Time PHQ-9 Depression Total Score: 11 023 10:04 AM CDT documented as of this encounter Care Teams Disease Intervention Specialist Relationship Specialty Start Date End Date Billie Guadarrama PCP - General 12/17/19 Rocio Mccarthy MD [address] [place] [address] Assigned Endocrinology Provider 04/24/22 Erica Tristan MD [address] [address] [place] [address] Assigned OBGYN Provider 08/06/23 documented as of this encounter
--- OUTSIDE RECORDS SUMMARY | 2024-11-10 09:49 | XMS_ITS | Encounter Summary ---
Author Organization [facility] Address [address] [place] [address]. [place] [address] Care Team Providers Care Application Support Analyst Name Role Phone Billie Guadarrama Primary Care Provider [phone] Rocio Mccarthy MD Unavailable [phone] Erica Tristan MD Unavailable [phone] Encounter Details Date Type Department Care Team (Late st Contact Info) Description 10/09/2023 MyC Medical Advice [facility] [address] [facility] [address] [place] [address] Rocio Mccarthy MD [address] [place] [address] Social History Tobacco Use Types [...] Sex Assigned at Female 10/05/2020 9:54 PM FLIGHT OPERATIONS MANAGER Legal Sex Female 4:15 AM FLIGHT OPERATIONS MANAGER Gender Identity Female 10/05/2020 9:54 PM FLIGHT OPERATIONS MANAGER Sexual Orientation Straight 10/05/2020 9: 54 PM FLIGHT OPERATIONS MANAGER documented as of this encounter Miscellaneous Notes * Telephone Encounter - Nahed Woodruff - 10/12/2023 10:36 AM CST Appointment scheduled. HT OPERATIONS MANAGER * Telephone Encounter - Rocio Mccarthy MD - 10/11/2023 10:51 AM FLIGHT OPERATIONS MANAGER Ok for ANGÉLICA at this time. Please [...] if you need any help with scheduling. HT OPERATIONS MANAGER documented in this encounter Plan of Treatment Upcoming Encounters Date Type Department Care Team (Late st Contact Info) Description 12/31/2024 11:00 AM CDT Virtual Visit [facility] [address] [facility] [address] [place] [address] Rocio Mccarthy MD [address] [place] [address] documented as of this encounter Visit Diagnoses Not on filedocumented in this encounter Additional Health Concerns Assessment Noted Time PHQ-9 Depression Total Score: 11 023 10:04 AM CDT documented as of this encounter Care Teams Application Support Analyst Relationship Specialty Start Date End Date Billie Guadarrama PCP - General 12/17/19 Rocio Mccarthy MD [address] [place] [address] Assigned Endocrinology Provider 04/24/22 Ercia Tristan MD [address] [place] [address] Assigned OBGYN Provider 08/06/23 documented as of this encounter
--- OUTSIDE RECORDS SUMMARY | 2024-11-10 09:49 | XMS_ITS | Encounter Summary ---
Author Organization [place] Address [address] [place] [address]. [place] [address] Care Team Providers Care Gas Roller Operator Name Role Phone Billie Guadarrama Primary Care Provider [phone] Rocio Mccarthy MD Unavailable [phone] Erica Tristan MD Unavailable [phone] Encounter Details Date Type Department Care Team (Late st Contact Info) Description 08/15/2023 MyC Medical Advice [facility] [address] [facility] [address] [place] [address] Rocio Mccarthy MD [address] [place] [address] Social History Tobacco Use Types [...] Sex Assigned at Female 10/05/2020 9:54 PM OPERA SINGER Legal Sex Female 4:15 AM OPERA SINGER Gender Identity Female 10/05/2020 9:54 PM OPERA SINGER Sexual Orientation Straight 10/05/2020 9: 54 PM OPERA SINGER documented as of this encounter Miscellaneous Notes * Telephone Encounter - Jina Harrell RN - 08/15/2023 9:07 AM OPERA SINGER Recommend close follow-up during --recommend lab every 2-3 months during or sooner based on dose adjustment given history of fluctuating labs she needs close follow-up. Follow-up with endocrinology after delivery. A SINGER documented in this encounter Plan of Treatment Upcoming Encounters Date Type Department Care Team (Late st Contact Info) Description 12/31/2024 11:00 AM CDT Virtual Visit [facility] [address] [facility] [address] [place] [address] Rocio Mccarthy MD [address] [place] [address] documented as of this encounter Visit Diagnoses Not on filedocumented in this encounter Additional Health Concerns Assessment Noted Time PHQ-9 Depression Total Score: 11 023 10:04 AM CDT documented as of this encounter Care Teams Gas Roller Operator Relationship Specialty Start Date End Date Billie Guadarrama PCP - General 12/17/19 Rocio Mccarthy MD [address] [place], [place] [address] Assigned Endocrinology Provider 04/24/22 Erica Tristan MD [address] [place], [place] [address] Assigned OBGYN Provider 08/06/23 documented as of this encounter
--- OUTSIDE RECORDS SUMMARY | 2024-11-10 09:49 | XMS_ITS | Encounter Summary ---
Author Organization [facility] Address [address] [place] [address]. [place] [address] Care Team Providers Care Handle Bender Name Role Phone Billie Guadarrama Primary Care Provider [phone] Rocio Mccarthy MD Unavailable [phone] Erica Tristan MD Unavailable [phone] Encounter Details Date Type Department Care Team (Late st Contact Info) Description 09/15/2023 MyC Medical Advice [facility] [address] [facility] [address] [place] [address] Rocio Mccarthy MD [address] [place] [address] Social History Tobacco Use Types [...] Sex Assigned at Female 10/05/2020 9:54 PM PRESIDENT TRUST COMPANY Legal Sex Female 4:15 AM PRESIDENT TRUST COMPANY Gender Identity Female 10/05/2020 9:54 PM PRESIDENT TRUST COMPANY Sexual Orientation Straight 10/05/2020 9: 54 PM PRESIDENT TRUST COMPANY documented as of this encounter Miscellaneous Notes * Telephone Encounter - Rocio Mccarthy MD - 09/15/2023 3:30 PM PRESIDENT TRUST COMPANY Per VIJAY guidelines; Typically TSH upper reference [...] defined through assessment of local population data wholesale representative of a health care provider???s practice. [employer] documented in this encounter Plan of Treatment Upcoming Encounters Date Type Department Care Team (Late st Contact Info) Description 12/31/2024 11:00 AM CDT Virtual Visit [facility] [address] [facility] [address] [place] [address] Rocio Mccarthy MD [address] [place] [address] documented as of this encounter Visit Diagnoses Not on filedocumented in this encounter Additional Health Concerns Assessment Noted Time PHQ-9 Depression Total Score: 11 023 10:04 AM CDT documented as of this encounter Care Teams Handle Bender Relationship Specialty Start Date End Date Billie Guadarrama PCP - General 12/17/19 Rocio Mccarthy MD [address] [place] [address] Assigned Endocrinology Provider 04/24/22 Ercia Tristan MD [address] [place] [address] Assigned OBGYN Provider 08/06/23 documented as of this encounter
--- OUTSIDE RECORDS SUMMARY | 2024-11-10 09:49 | XMS_ITS | Encounter Summary ---
Author Organization [facility] Address [address] [place] [address]. [place] [address] Care Team Providers Care Hr Manager Name Role Phone Billie Guadarrama Primary Care Provider Rocio Mccarthy MD Unavailable [phone] Erica Tristan MD Unavailable [phone] Encounter Details Date Type Department Care Team (Late st Contact Info) Description 07/02/2024 MyC Medical Advice [facility] [address] [place] [address] Chelita Harrell, [facility] Social History Tobacco Use Types Packs/Day Years [...] Sex Assigned at Female 10/05/2020 9:54 PM FIBRE OPTIC CABLE SPLICER Legal Sex Female 4:15 AM FIBRE OPTIC CABLE SPLICER Gender Identity Female 10/05/2020 9:54 PM FIBRE OPTIC CABLE SPLICER Sexual Orientation Straight 10/05/2020 9: 54 PM FIBRE OPTIC CABLE SPLICER documented as of this encounter Plan of Treatment Upcoming Encounters Date Type Department Care Team (Late st Contact Info) Description 12/31/2024 11:00 AM CDT Virtual Visit [facility] [address] [place] [address] Rocio Mccarthy MD [address] [place] [address] documented as of this encounter Visit Diagnoses Not on filedocumented in this encounter Additional Health Concerns Assessment Noted Time PHQ-9 Depression Total Score: 10 024 3:30 PM CDT documented as of this encounter Care Teams Hr Manager Relationship Specialty Start Date End Date Billie Guadarrama PCP - General 12/17/19 Rocio Mccarthy MD [address] [place] [address] Assigned Endocrinology Provider 04/24/22 Erica Tristan MD [address] [facility] [address] [place] [address] Assigned OBGYN Provider 08/06/23 documented as of this encounter
--- OUTSIDE RECORDS SUMMARY | 2024-11-10 09:50 | XMS_ITS | Encounter Summary ---
Author Organization [facility] Address [address] [place] [address]. [place] [address] Care Team Providers Care Typist Name Role Phone Billie Guadarrama Primary Care Provider Anthony Shaffer MD Unavailable [phone] Rocio Mccarthy MD Unavailable [phone] Erica Tristan MD Unavailable [phone] Encounter Details Date Type Department Care Team (Late st Contact Info) Description 04/19/2022 MyC Medical Advice [address] [phone] Jina Harrell V, RN Social History Tobacco [...] Sex Assigned at Female 10/05/2020 9:54 PM PLASTIC BOAT PATCHER Legal Sex Female 4:15 AM PLASTIC BOAT PATCHER Gender Identity Female 10/05/2020 9:54 PM PLASTIC BOAT PATCHER Sexual Orientation Straight 10/05/2020 9: 54 PM PLASTIC BOAT PATCHER COVID-19 Exposure Response Date Recorded In the last 10 days, have yo u been in contact with someone who was confirmed or suspected to have Coronavirus/COVID-19? No / Unsure 04/05/2022 11:57 AM CDT documented as of this encounter Plan of Treatment Upcoming Encounters Date Type Department Care Team (Late st Contact Info) Description 12/31/2024 11:00 AM CDT Virtual Visit [facility] [address] [facility] [address] [place] [address] Rocio Mccarthy MD [address] [place], [place] [address] documented as of this encounter Visit Diagnoses Not on filedocumented in this encounter Care Teams Typist Relationship Specialty Start Date End Date Billie Guadarrama PCP - General 12/17/19 Anthony Shaffer MD [address] [place], [place] [address] Assigned OBGYN Provider 05/10/21 Rocio Mccarthy MD [address] [place], [place] [address] Assigned Endocrinology Provider 04/24/22 Erica Tristan MD [address] [place] [address] Assigned OBGYN Provider 08/06/23 documented as of this encounter
--- OUTSIDE RECORDS SUMMARY | 2024-11-10 09:50 | XMS_ITS | Encounter Summary ---
Author Organization [facility] Address [address] [place] [address]. [place] [address] Care Team Providers Care Computer Systems Designer Name Role Phone Billie Guadarrama Primary Care Provider [phone] Rocio Mccarthy MD Unavailable [phone] Anthony Shaffer MD Unavailable [phone] Rocio Mccarthy MD Unavailable [phone] Erica Tristan MD Unavailable [phone] Reason for Visit * Reason Onset Date Comments MyChart Communication 06/12/2020 Encounter Details Date Type Department Care Team (Latest Contact Info) Description 06/12/2020 MyC Medical Advice [facility] [address] [place] [address] Rocio Mccarthy MD [address] [place] [address] MyChart Communication Social History Tobacco [...] Sex Assigned at Female 10/05/2020 9:54 PM ASSEMBLER SMALL PRODUCTS Legal Sex Female 4:15 AM ASSEMBLER SMALL PRODUCTS Gender Identity Female 10/05/2020 9:54 PM ASSEMBLER SMALL PRODUCTS Sexual Orientation Straight 10/05/2020 9: 54 PM ASSEMBLER SMALL PRODUCTS COVID-19 Exposure Response Date Recorded In the last month, have you been in contact with someone who was confirmed or suspected to have Coronavirus / COVID-19? No / Unsure 05/29/2020 2:44 PM CDT documented as of this encounter Miscellaneous Notes * Telephone Encounter - Angelic Cavazos RN - 06/12/2020 9:07 AM CDT Please see [employer] message and advise. Thank you. documented in this encounter Plan of Treatment Upcoming Encounters Date Type Department Care Team (Late st Contact Info) Description 12/31/2024 11:00 AM CDT Virtual Visit [facility] [address] [place] [address] Rocio Mccarthy MD [address] [place] [address] 200 [place], [place] [address] documented as of this encounter Visit Diagnoses Not on filedocumented in this encounter Care Teams Computer Systems Designer Relationship Specialty Start Date End Date Billie Guadarrama PCP - General 12/17/19 Rocio Mccarthy MD [address] [place] [address] 200 [place], [place] [address] Assigned Endocrinology Provider 08/01/20 11/28/21 Anthony Shaffer MD [address] 400 [place] [address] Assigned OBGYN Provider 05/10/21 Rocio Mccarthy MD [address] 200 [place] [address] Assigned Endocrinology Provider 04/24/22 Erica Tristan MD [address] [facility] 400 [place] [address] Assigned OBGYN Provider 08/06/23 documented as of this encounter
--- OUTSIDE RECORDS SUMMARY | 2024-11-10 09:50 | XMS_ITS | Encounter Summary ---
Author Organization [facility] Address [address] [place] [address]. [place] [address] Care Team Providers Care Automatic Centrifugal Station Operator Name Role Phone Billie Guadarrama Primary Care Provider Rocio Mccarthy MD Unavailable Anthony Shaffer MD Unavailable Rocio Mccarthy MD Unavailable Erica Tristan MD Unavailable [phone] Encounter Details Date Type Department Care Team (Late st Contact Info) Description 08/01/2020 MyC Medical Advice [facility] [address] [place] [address] Rocio Mccarthy MD [address] [place] [address] Social History Tobacco Use Types [...] Sex Assigned at Female 10/05/2020 9:54 PM PRESS TENDER SHORT GOODS Legal Sex Female 4:15 AM PRESS TENDER SHORT GOODS Gender Identity Female 10/05/2020 9:54 PM PRESS TENDER [employer]ORT GOODS Sexual Orientation Straight 10/05/2020 9: 54 PM PRESS TENDER SHORT GOODS documented as of this encounter Miscellaneous Notes * Telephone Encounter - Angelic Cavazos RN - 08/01/2020 1:21 PM CDT Please see [employer] message, does patient need to see derm? Please advise, Thank you. documented in this encounter Plan of Treatment Upcoming Encounters Date Type Department Care Team (Late st Contact Info) Description 12/31/2024 11:00 AM CDT Virtual Visit [facility] [address] [facility] [address] [place] [phone] Rocio Mccarthy MD [address] [place] [address] 200 [place], [place] [address] documented as of this encounter Visit Diagnoses Not on filedocumented in this encounter Care Teams Automatic Centrifugal Station Operator Relationship Specialty Start Date End Date Billie Guadarrama PCP - General 12/17/19 Rocio Mccarthy MD [address] [facility] [address] [place], [place] [address] Assigned Endocrinology Provider 08/01/20 11/28/21 Anthony Shaffer MD [address] 400 [place], [place] [address] Assigned OBGYN Provider 05/10/21 Rocio Mccarthy MD [address] [facility] 200 [place], [place] [address] Assigned Endocrinology Provider 04/24/22 Erica Tristan MD [address] [place] [address] Assigned OBGYN Provider 08/06/23 documented as of this encounter
--- OUTSIDE RECORDS SUMMARY | 2024-11-10 09:50 | XMS_ITS | Encounter Summary ---
Author Organization [facility] Address [address] [place] [address]. 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 [...] Sex Assigned at Female 10/05/2020 9:54 PM FOOD CONSULTANT Legal Sex Female 4:15 AM FOOD CONSULTANT Gender Identity Female 10/05/2020 9:54 PM FOOD CONSULTANT Sexual Orientation Straight 10/05/2020 9: 54 PM FOOD CONSULTANT COVID-19 Exposure Response Date Recorded In [...] 12/31/2024 11:00 AM CDT Virtual Visit [facility] [address] [facility] [address] [place] [phone] Rocio Mccarthy MD [address] [place] [address] documented as of this encounter Visit Diagnoses Diagnosis 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
--- OUTSIDE RECORDS SUMMARY | 2024-11-10 09:50 | XMS_ITS | Encounter Summary ---
Author Organization [facility] Address [address] [place] [address]. [place] [address] Care Team Providers Care Ecological Risk Assessor Name Role Phone Billie Guadarrama Primary Care Provider Rocio Mccarthy MD Unavailable [phone] Erica Tristan MD Unavailable [phone] Encounter Details Date Type Department Care Team (Late st Contact Info) Description 02/14/2024 MyC Medical Advice [facility] [address] [address] [place] [address] Rocio Mccarthy MD [address] [place] [address] Social History Tobacco Use Types [...] Assigned at Female 10/05/2020 9:54 PM SIGNAL REPAIRER Legal Sex Female 4:15 AM SIGNAL REPAIRER Gender Identity Female 10/05/2020 9:54 PM SIGNAL REPAIRER Sexual Orientation Straight 10/05/2020 9: 54 PM SIGNAL REPAIRER documented as of this encounter Plan of Treatment Upcoming Encounters Date Type Department Care Team (Late st Contact Info) Description 12/31/2024 11:00 AM CDT Virtual Visit [facility] [address] [facility] [address] [place] [phone] Rocio Mccarthy MD [address] [place] [address] documented as of this encounter Visit Diagnoses Not on filedocumented in this encounter Additional Health Concerns Assessment Noted Time PHQ-9 Depression Total Score: 11 023 10:04 AM CDT documented as of this encounter Care Teams Ecological Risk Assessor Relationship Specialty Start Date End Date Billie Guadarrama PCP - General 12/17/19 Rocio Mccarthy MD [address] [place] [address] Assigned Endocrinology Provider 04/24/22 Erica Tristan MD [address] [address] [place], [place] [address] Assigned OBGYN Provider 08/06/23 documented as of this encounter
--- OUTSIDE RECORDS SUMMARY | 2024-11-10 09:50 | XMS_ITS | Encounter Summary ---
Author Organization [facility] Address [address] [place] [address]. [place] [address] Care Team Providers Care Freezer Person Name Role Phone Billie Guadarrama Primary Care Provider Rocio Mccarthy MD Unavailable [phone] Anthony Shaffer MD Unavailable Rocio Mccarthy MD Unavailable [phone] Erica Tristan MD Unavailable [phone] Reason for Visit * Reason Onset Date Comments MyChart Communication 10/05/2020 Encounter Details Date Type Department Care Team (Latest Contact Info) Description 10/05/2020 MyC Medical Advice [facility] [address] [facility] [address] [place] [address] Rocio Mccarthy MD [address] [place] [address] MyChart Communication Social History Tobacco [...] Sex Assigned at Female 10/05/2020 9:54 PM WOOL PULLER Legal Sex Female 4:15 AM WOOL PULLER Gender Identity Female 10/05/2020 9:54 PM WOOL PULLER Sexual Orientation Straight 10/05/2020 9: 54 PM WOOL PULLER COVID-19 Exposure Response Date Recorded In the last month, have you been in contact with someone who was confirmed or suspected to have Coronavirus / COVID-19? No / Unsure 10/08/2020 8:54 AM WOOL PULLER documented as of this encounter Miscellaneous Notes * Telephone Encounter - Janis Kendrick, RN - 10/06/2020 3:51 PM CST My chart message sent by patient. My chart message sent to patient. PULLER documented in this encounter Plan of Treatment Upcoming Encounters Date Type Department Care Team (Late st Contact Info) Description 12/31/2024 11:00 AM CDT Virtual Visit [facility] [address] [facility] [address] [place] [address] Rocio Mccarthy MD [address] [place] [address] 200 [place], [place] [address] documented as of this encounter Visit Diagnoses Not on filedocumented in this encounter Care Teams Freezer Person Relationship Specialty Start Date End Date Billie Guadarrama PCP - General 12/17/19 Rocio Mccarthy MD [address] [place], [place] [address] Assigned Endocrinology Provider 08/01/20 11/28/21 Anthony Shaffer MD [address] [facility] [address] [place], [place] [address] Assigned OBGYN Provider 05/10/21 Rocio Mccarthy MD [address] [facility] 200 [place] [address] Assigned Endocrinology Provider 04/24/22 Erica Tristan MD [address] [facility] 400 [place] [address] Assigned OBGYN Provider 08/06/23 documented as of this encounter
--- OUTSIDE RECORDS SUMMARY | 2024-11-10 09:50 | XMS_ITS | Encounter Summary ---
Author Organization [facility] Address [address] [place] [address] Care Team Providers Care Verification Engineer Name Role Phone Billie Guadarrama Primary Care Provider Rocio Mccarthy MD Unavailable [phone] Erica Tristan MD Unavailable [phone] Encounter Details Date Type Department Care Team (Late st Contact Info) Description 10/28/2023 [facility] Medical Advice [facility] [address] [place], [place] [address] Lisa Larose, RN Social History Tobacco Use [...] Sex Assigned at Female 10/05/2020 9:54 PM WATCH AND CLOCK REPAIR CLERK Legal Sex Female 4:15 AM WATCH AND CLOCK REPAIR CLERK Gender Identity Female 10/05/2020 9:54 PM WATCH AND CLOCK REPAIR CLERK Sexual Orientation Straight 10/05/2020 9: 54 PM WATCH AND CLOCK REPAIR CLERK documented as of this encounter Plan of Treatment Upcoming Encounters Date Type Department Care Team (Late st Contact Info) Description 12/31/2024 11:00 AM CDT Virtual Visit [facility] [address] [place] [address] Rocio Mccarthy MD [address] [place] [address] documented as of this encounter Visit Diagnoses Not on filedocumented in this encounter Additional Health Concerns Assessment Noted Time PHQ-9 Depression Total Score: 11 023 10:04 AM CDT documented as of this encounter Care Teams Verification Engineer Relationship Specialty Start Date End Date Billie Guadarrama PCP - General 12/17/19 Rocio Mccarthy MD [address] [place] [address] Assigned Endocrinology Provider 04/24/22 Erica Tristan MD [address] [facility] 400 [place] [address] Assigned OBGYN Provider 08/06/23 documented as of this encounter
--- OUTSIDE RECORDS SUMMARY | 2024-11-10 09:50 | XMS_ITS | Encounter Summary ---
Author Organization [facility] Address [address] [place] [address]. [place] [address] Care Team Providers Care Deckhand Sponge Boat Name Role Phone Billie Guadarrama Primary Care Provider Anthony Shaffer MD Unavailable [phone] Rocio Mccarthy MD Unavailable [phone] Erica Tristan MD Unavailable [phone] Encounter Details Date Type Department Care Team (Late st Contact Info) Description 01/06/2022 MyC Medical Advice [address] [phone] Jina Harrell V, RN Social History Tobacco [...] Sex Assigned at Female 10/05/2020 9:54 PM DRAFTSPERSON Legal Sex Female 4:15 AM DRAFTSPERSON Gender Identity Female 10/05/2020 9:54 PM DRAFTSPERSON Sexual Orientation Straight 10/05/2020 9: 54 PM DRAFTSPERSON COVID-19 Exposure Response Date Recorded In the last month, have you been in contact with someone who was confirmed or suspected to have Coronavirus / COVID-19? No / Unsure 01/05/2022 1:29 PM CDT documented as of this encounter Plan of Treatment Upcoming Encounters Date Type Department Care Team (Late st Contact Info) Description 12/31/2024 11:00 AM CDT Virtual Visit [facility] [address] [facility] [address] [place] [phone] Rocio Mccarthy MD [address] [place] [address] documented as of this encounter Visit Diagnoses Not on filedocumented in this encounter Care Teams Deckhand Sponge Boat Relationship Specialty Start Date End Date Billie Guadarrama PCP - General 12/17/19 Anthony Shaffer MD [address] [place], [place] [address] Assigned OBGYN Provider 05/10/21 Rocio Mccarthy MD [address] [place] [address] Assigned Endocrinology Provider 04/24/22 Erica Tristan MD [address] [place], [place] [address] Assigned OBGYN Provider 08/06/23 documented as of this encounter
--- OUTSIDE RECORDS SUMMARY | 2024-11-10 09:50 | XMS_ITS | Encounter Summary ---
Author Organization [facility] Address [address] [place] [address]. 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 I put her down for 06/21 at 10:30 for a video visit. Maritza Harrell CMA [facility] [phone] * Telephone Encounter - Chelita Harrell CMA - 06/08/2023 8:50 AM CDT Message sent via [employer]. Maritza Harrell CMA [facility] [phone] * Telephone Encounter - Nahed [place] - [...] Virtual Visit [facility] [address] [facility] [address] [place] [address] Rocio Mccarthy MD [address] [place] [address] documented as of this encounter Results * T3, Free (06/07/2023 3:33 PM CDT) T3 Free 2.4 2.0 - 4.4 pg/mL 06/07/2023 8:40 PM CDT [facility] Blood BLOOD SPECIMEN / Unknown Venipuncture / Unknown 06/07/2023 3:33 PM CDT 06/07/2023 3:33 PM CDT Rocio Mccarthy MD LAB - BLOOD ORDERABLES Fi nal Result [facility] [address] [facility] [place] [address] [phone] documented in this encounter Visit Diagnoses Diagnosis 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
--- OUTSIDE RECORDS SUMMARY | 2024-11-10 09:50 | XMS_ITS | Encounter Summary ---
Author Organization [place] Address [address] [place] [address]. 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 [...] Sex Assigned at Female 10/05/2020 9:54 PM WHEEL CLEANER Legal Sex Female 4:15 AM WHEEL CLEANER Gender Identity Female 10/05/2020 9:54 PM WHEEL CLEANER Sexual Orientation Straight 10/05/2020 9: 54 PM WHEEL CLEANER documented as of this encounter Plan of Treatment Upcoming Encounters Date Type Department Care Team (Late st Contact Info) Description 12/31/2024 11:00 AM CDT Virtual Visit [facility] [address] [facility] [address] [place] [address] Rocio Mccarthy MD [address] [place] [address] documented as of this encounter Results * (ABNORMAL) T3 Free (11/18/2021 12:41 PM WHEEL CLEANER) T3 Free 1.5(L) 2.3 - 4.2 pg/mL 11/18/2021 6:34 PM WHEEL CLEANER [facility] Blood VENOUS BLOOD / Unknown Venipuncture / Unknown 11/18/2021 12:41 PM WHEEL CLEANER 11/18/2021 12:41 PM WHEEL CLEANER Rocio Mccarthy MD LAB - BLOOD ORDERABLES Fi nal Result [facility] [address] [place] [address], Room [address] [address], [facility] [[email or web address]] [phone] * (ABNORMAL) T4 free (11/18/2021 12:41 PM WHEEL CLEANER) Free T4 0.64(L) 0.76 - 1.46 ng/dL 11/18/2021 7:16 PM WHEEL CLEANER LABORATORY Blood VENOUS BLOOD / Unknown Venipuncture / Unknown 11/18/2021 12:41 PM WHEEL CLEANER 11/18/2021 12:41 PM WHEEL CLEANER Rocio Mccarthy MD LAB - BLOOD ORDERABLES Fi nal Result [facility] [address] [place] [address] Lab (no room number, 1st floor of [facility]) [place] [address], [facility] [[email or web address]] [phone] * (ABNORMAL) TSH (11/18/2021 12:41 PM WHEEL CLEANER) Pathologist [facility] TSH 104.91(H) 0.40 - 4.00 mU/L 11/18/2021 8:05 PM WHEEL CLEANER LABORATORY Blood VENOUS BLOOD / Unknown Venipuncture / Unknown 11/18/2021 12:41 PM WHEEL CLEANER 11/18/2021 12:41 PM WHEEL CLEANER Rocio Mccarthy MD LAB - BLOOD ORDERABLES Fi nal Result LABORATORY [facility] [address] [place] [address] Lab (no room number, 1st floor of clinic) [place] [address], [facility] [[email or web address]] [phone] * Thyroglobulin and Antibody Reflex (11/18/2021 12:41 PM WHEEL CLEANER) Pathologist [facility] Thyroglobulin Antibody <20 <40 IU/mL 11/19/2021 1:39 PM WHEEL CLEANER [facility]END O Blood VENOUS BLOOD / Unknown Venipuncture / Unknown 11/18/2021 12:41 PM WHEEL CLEANER 11/18/2021 12:41 PM WHEEL CLEANER Rocio Mccarthy MD LAB - BLOOD ORDERABLES Fi nal Result [facility]Prot[facility]Endo [address] [facility] [address], [address] [place] [address], [facility] [[email or web address]] [phone] * T3 reverse (11/18/2021 12:41 PM WHEEL CLEANER) Pathologist [facility] T3, Reverse ng/dL 10.3 9.0 - 27.0 ng/dL 11/23/2021 4:48 PM WHEEL CLEANER [facility] Comment: INTERPRETIVE INFORMATION: Triiodothyronine, Reverse - LC-MS/MS This test was developed and its performance characteristics determined by [facility]. It has not been cleared or approved by the US Food and Drug Administration. This test was performed in a CLIA certified laboratory and is intended for clinical purposes. 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
--- OUTSIDE RECORDS SUMMARY | 2024-11-10 09:50 | XMS_ITS | Encounter Summary ---
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 Procedures US Head Neck Soft Tissue Rocio Mccarthy MD [address] [address] [place] [address] Phone: tel: fax: Referral ID Status Reason Start Date Expiration Date Visits Re quested Visits Authorized [id number] Closed 06/03/2022 06/03/2023 1 1 Reason for Visit * Reason Onset Date Comments Call Back 06/01/2022 Encounter Details Date Type Department Care Team (Late st Contact Info) Description 06/01/2022 Telephone [facility] [address] [place] [address] Rocio Mccarthy MD [address] [facility] [address] [place] [address] [phone] (work) Call Back Social History Tobacco Use [...] Sex Assigned at Female 10/05/2020 9:54 PM INDUSTRIAL SALES MANAGER Legal Sex Female 4:15 AM INDUSTRIAL SALES MANAGER Gender Identity Female 10/05/2020 9:54 PM INDUSTRIAL SALES MANAGER Sexual Orientation Straight 10/05/2020 9: 54 PM INDUSTRIAL SALES MANAGER documented as of this encounter Miscellaneous [...] Sharmin Peacock - 06/01/2022 10:21 AM CDT [facility] Call Center Phone Message May a [...] Description 12/31/2024 11:00 AM CDT Virtual Visit [facility] [address] [place] [address] Rocio Mccarthy MD [address] [place], [place] [address] documented as of this encounter Results * [...] thyroiditis. 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
--- OUTSIDE RECORDS SUMMARY | 2024-11-10 09:50 | XMS_ITS | Clinical Summary ---
Author Organization [facility] Address [place], [place] [address] Care Team Providers Care Weather Strip Mechanic Name Role Phone Vasquez Ridley MD Unavailable [phone] Sanjeev Brar MD Unavailable [phone] Billie Guadarrama DO Primary Care Provider [phone] Allergies Active Allergy Reactions Criticality Noted Date [...] Encounters Date Type Department Care Team Description 10/11/2024 Orders Only [facility] Scanner 1 scan: (1-Ord) INCOMING RECORDS-MRI, [facility], 10/11/2024 10/11/2024 Orders Only [facility] Scanner 1 scan: (1-Ord) INCOMING RECORDS-LABS, [facility], 10/11/2024 10/11/2024 Orders Only [facility] Scanner 1 scan: (1-Ord) INCOMING RECORDS-LABS, [facility], 10/11/2024 10/11/2024 Orders Only [facility] Scanner 1 scan: (1-Ord) INCOMING RECORDS-LABS, [facility], 10/11/2024 10/11/2024 Orders Only [facility] Scanner 1 scan: ([facility]Ord[facility]/2024 10/11/2024 Orders Only [facility] Scanner 1 scan: (1-Ord) INCOMING RECORDS-US, [facility], 10/11/2024 09/25/2024 Orders Only [facility] Scanner 1 scan: (1-Ord) [facility], MR HEAD/BRAIN WO/W CON , 09/25/2024 from Last 3 Months Immunizations Name Administration [...] is your housing situation today? 1 07/11/2024 Utilities Answer Date Recorded Do you have trouble paying f or utilities (for example, heat, electricity, water, phone)? 1 07/11/2024 Comments No Sex and Gender Information Value Date Recorded Sex Assigned at Not on file Legal Sex Female 5:23 AM CUSTOMER SOLUTIONS SPECIALIST Gender Identity Not on file Sexual Orientation [...] CDT Respiratory Rate 18 10/06/2022 8:41 PM CUSTOMER SOLUTIONS SPECIALIST Oxygen Saturation 96% 08/02/2024 9:42 AM CDT [...] age 18-79 Completed 08/31/2016 Tdap Completed 10/19/2023, 080 11/2020, 04/06/2010 Influenza for age 9-49 Completed , 07/07/2023, 10/14/2022, Additional history exists Pneumococcal series for age 6-49 Aged Out No longer eligible based on patient's age to complete this topic Procedures Procedure Name Priority Date/Time Associated Diagnosis Comments SCAN CORRESP-LABORATORY RESULTS 10/11/2024 12:00 AM CUSTOMER SOLUTIONS SPECIALIST SCAN CORRESP-LABORATORY RESULTS 10/11/2024 12:00 AM CUSTOMER SOLUTIONS SPECIALIST SCAN CORRESP-LABORATORY RESULTS 10/11/2024 12:00 AM CUSTOMER SOLUTIONS SPECIALIST SCAN CORRESP-LABORATORY RESULTS 10/11/2024 12:00 AM CUSTOMER SOLUTIONS SPECIALIST SCAN CORRESP-IMAGING 10/11/2024 12:00 AM CUSTOMER SOLUTIONS SPECIALIST SCAN CORRESP-IMAGING 10/11/2024 12:00 AM CUSTOMER SOLUTIONS SPECIALIST SCAN-MRI INTERPRETATION 09/25/2024 12:00 AM CUSTOMER SOLUTIONS SPECIALIST COLONOSCOPY SCREENING Routine 08/06/2024 12:00 AM CDT Adenomatous polyp of colon, unspecified part of colon Screening for colon cancer LACING STRING CUTTER THIN PREP PAP SCREEN IMAGED Routine 01/24/2024 11:00 AM CDT ACUTE HEPATITIS PANEL Routine 08/31/2016 3:04 PM CUSTOMER SOLUTIONS SPECIALIST Elevated LFTs from Last 3 Months or Most Recently Relevant to Health Maintenance Results * SCAN CORRESP-LABORATORY RESULTS (10/11/2024 12:00 AM CUSTOMER SOLUTIONS SPECIALIST) Only the most recent of4 resultswithin the time period is included. us Scanner OTHER Final Result * SCAN CORRESP-IMAGING (10/11/2024 12:00 AM CUSTOMER SOLUTIONS SPECIALIST) Only the most recent of2 resultswithin the time period is included. Anatomical Region Laterality Modality Other us Scanner OTHER Final Result * SCAN-MRI INTERPRETATION (09/25/2024 12:00 AM CUSTOMER SOLUTIONS SPECIALIST) Anatomical Region Laterality Modality Other us Scanner OTHER Final Result * COLONOSCOPY SCREENING (08/06/2024 12:00 AM CDT) Billie Guadarrama DO GI PROCEDURE ORD Final Res ult * LACING STRING CUTTER THIN PREP PAP SCREEN IMAGED (01/24/2024 11:00 AM CDT) Case Report Gynecologic Cytology Report Case: [id number] Authorizing Provider: Marely Vasquez PA-C Collected: 01/24/2024 1100 Ordering Location: [facility] Received: 01/26/2024 1040 First Screen: Hayes Weinstein Specimen: LACING STRING CUTTER ThinPrep Vial Screening, Cervical 02/08/2024 8:05 AM CDT [id number] ENTRAL LABORATORY INTERPRETATION/ RESULT NEGATIVE FOR INTRAEPITHELIAL LESION OR MALIGNANCY (NIL) (none) 02/08/2024 8:05 AM CDT [facility] IMEN ADEQUACY Satisfactory for evaluation No endocervical component seen 02/08/2024 8:05 AM CDT [facility] LAB[facility] HPV REQUEST HPV and PAP 02/08/2024 8:05 AM CDT [facility] EN[facility]AL LAB[facility]ATORY Date of LMP 02/08/2024 8:05 AM CDT [facility] ENTRAL LABORATORY Comment:unk Last Pap Date 12/04/2020 02/08/2024 8:05 AM CDT [facility] LAB[facility]ORY Last Pap Result NIL 8:05 AM CDT [facility] Abnormal Pap or [place] Bx in last 5 years No 02/08/2024 8:05 AM CDT [facility] EN[facility]AL LAB[facility]ATORY Menstrual Status 02/08/2024 8:05 AM CDT [facility] EN[facility] LAB[facility]ORY [place] Bx Done Today No 02/08/2024 8:05 AM CDT [facility] Additional Information 02/08/2024 8:05 AM CDT [facility] Comment: Interpreted at [facility] - [address] [place] [address] Automated Review Successful 02/08/2024 8:05 AM CDT [facility] ENTRMD LABORATORY Comment:Specimen processed s uccessfully by automated regional construction manager device, ThinPrep Imaging System, [employer] ANCILLARY TESTING LACING STRING CUTTER HPV Ordered, Please see separate report 02/08/2024 8:05 AM CDT [facility] Note The pap test is a [...] and malignant lesions. 02/08/2024 8:05 AM CDT [facility] Other (Cervical) 01/24/2024 11:00 AM CDT 01/26/2024 10:40 AM CDT Marely Vasquez PA-C PATHOLOGY/CYTOLOGY Final R esult [facility] [address] [place] [address], * ACUTE HEPATITIS PANEL (08/31/2016 3:04 PM CUSTOMER SOLUTIONS SPECIALIST) HEPATITIS C ANTIBODY Non-Reactive Non-Reactive 08/31/2016 8:15 PM CUSTOMER SOLUTIONS SPECIALIST [facility] IGM ANTI HAV Non-Reactive Non-Reactive 08/31/20 16 8:15 PM CUSTOMER SOLUTIONS SPECIALIST [facility] HBSAG Nonreactive Nonreactive 08/31/2016 8:15 PM CUSTOMER SOLUTIONS SPECIALIST [facility] IGM ANTI HBC Non-Reactive Non-Reactive 08/31/20 16 8:15 PM CUSTOMER SOLUTIONS SPECIALIST [facility] Blood BLOOD SPECIMEN / Unknown Venipuncture / Unknown 08/31/2016 3:04 PM CUSTOMER SOLUTIONS SPECIALIST 08/31/2016 3:04 PM CUSTOMER SOLUTIONS SPECIALIST Narrative [facility] - 08/31/2016 8:15 PM CUSTOMER SOLUTIONS SPECIALIST Anti-HBc IgM not detected. Does not exclude the possibility of exposure to or infection with HBV. us Billie Guadarrama DO SEND OUTS Final Resu lt [facility]-CENTRAL LABORATORY [address] [place] [address], from Last 3 Months or Most Recently Relevant to Health Maintenance Insurance [employer] Care Teams Weather Strip Mechanic Relationship Specialty Start Date End Date Billie Guadarr[place] [address] PCP - General Family Practice 06/26/24 Vasquez Ridley MD [address] [place] [address] Rheumatology Rheumatology 10/07/16 Sanjeev Brar MD [address] [place] [address] Internal Medicine 09/28/19
--- OUTSIDE RECORDS SUMMARY | 2024-11-10 09:50 | XMS_ITS | Encounter Summary ---
Author Organization [place] Address [address] [place] [address] Care Team Providers Care Wrap Yarn Sorter Name Role Phone Tucker Michel MD Primary Care Provider [phone] Frw, None Primary Care Provider Unavailabl Billie Jensen Primary Care Provider [phone] Rocio Mccarthy MD Unavailable Anthony Shaffer MD Unavailable [phone] Rocio Mccarthy MD Unavailable [phone] Erica Tristan MD Unavailable [phone] Reason for Visit * Reason Comments Abstract Encounter Details Date Type Department Care Team (Late st Contact Info) Description 05/22/2001 Abstract [facility] [place] Medical Records [address] [place] [phone] Application Systems Engineer, KFredisJ Social History Tobacco Use Types Packs/Day Years Used Date Smoking Tobacco: Never Assessed Comments:NO 2ND HAND SMOKE A T HOME Alcohol Use Standard Drinks/Week Comments Not Asked 0 (1 standard drink = 0.6 oz pur e alcohol) Comments Unknown Sex and Gender Information Value Date Recorded Sex Assigned at Female 10/05/2020 9:54 PM LABORER RAGS Legal Sex Female 4:15 AM LABORER RAGS Gender Identity Female 10/05/2020 9:54 PM LABORER RAGS Sexual Orientation Straight 10/05/2020 9: 54 PM LABORER RAGS documented as of this encounter Plan of Treatment Upcoming Encounters Date Type Department Care Team (Late st Contact Info) Description 12/31/2024 11:00 AM CDT Virtual Visit [facility] [address] [place] [phone] Rocio Mccarthy MD [address] [place] [address] documented as of this encounter Visit Diagnoses Not on filedocumented in this encounter Care Teams Wrap Yarn Sorter Relationship Specialty Start Date End Date Tucker Michel MD [facility] [address] [facility] [address] [place] [address] PCP - General 11/02/00 02/05/13 Frw, None PCP - General Family Practice 02/06/13 06/09/17 Billie Guadarrama PCP - General 12/17/19 Rocio Mccarthy MD [address] [place], [place] [address] Assigned Endocrinology Provider 08/01/20 11/28/21 Anthony Shaffer MD [address] [facility] [address] [place], [place] [address] Assigned OBGYN Provider 05/10/21 Rocio Mccarthy MD [address] [place], [place] [address] Assigned Endocrinology Provider 04/24/22 Erica Tristan MD [address] [place], [place] [id number] Assigned OBGYN Provider 08/06/23 documented as of this encounter
--- OUTSIDE RECORDS SUMMARY | 2024-11-10 09:50 | XMS_ITS | Referral Summary ---
Author Organization [facility] Address [address] [place] [address] Care Team Providers Care Certified Surgical Assistant Name Role Phone Billie Guadarrama Primary Care Provider Rocio Mccarthy MD Unavailable [phone] Erica Tristan MD Unavailable [phone] Encounters Date Type Department Care Team Description 09/19/2024 MyC Medical Advice [facility] [address] [place] [phone] Rocio Mccarthy MD 08/17/2024 MyC Medical Advice [facility] [address] [place] [phone] Rocio Mccarthy MD 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) 08/13/2024 Travel 08/13/2024 12:00 PM GEOGRAPHIC ANALYST Lab [facility] [address] [place] [phone] 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 08/10/2024 Documentation Only [facility] [address] [place] [phone] Rocio Mccarthy MD from Last 3 Months [...] 09/20/2002, 8,1997,1996 DTP-Hib 1997 DTaP, Unspecified 04/06/2010 [id number] Novel Flu 12/23/2009 HEPATITIS A (PEDS 12M-18Y) [...] Sex Assigned at Female 10/05/2020 9:54 PM GEOGRAPHIC ANALYST Legal Sex Female 4:15 AM GEOGRAPHIC ANALYST Gender Identity Female 10/05/2020 9:54 PM GEOGRAPHIC ANALYST Sexual Orientation Straight 10/05/2020 9: 54 PM GEOGRAPHIC ANALYST Last Filed Vital Signs Vital Sign Reading Time Taken Comments Blood Pressure 114/57 11/18/2023 10:26 AM GEOGRAPHIC ANALYST Pulse 99 11/18/2023 10:26 AM GEOGRAPHIC ANALYST Temperature 36.6 C (97.9 F) 10/20/2023 7:18 AM GEOGRAPHIC ANALYST Respiratory Rate 16 10/20/2023 7:18 AM GEOGRAPHIC ANALYST Oxygen Saturation 98% 11/04/2023 3:10 PM GEOGRAPHIC ANALYST Inhaled Oxygen Concentration - - Weight 111.1 kg (245 lb) 06/28/2024 3:28 PM CDT Height 165.1 cm (5' 5) 10/19/2023 12:22 PM GEOGRAPHIC ANALYST Body Mass Index 40.77 10/19/2023 12:22 PM GEOGRAPHIC ANALYST Plan of Treatment Upcoming Encounters Date Type Department Care Team (Late st Contact Info) Description 12/31/2024 11:00 AM CDT Virtual Visit [facility] [address] [facility] [address] [place] [address] Rocio Mccarthy MD [address] [place] [address] Procedures Procedure Name Priority Date/Time Associated Diagnosis Comments TSH Routine 08/13/2024 11:55 AM GEOGRAPHIC ANALYST 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 T4 FREE Routine 08/13/2024 11:55 AM GEOGRAPHIC ANALYST 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 T3 FREE Routine 08/13/2024 11:55 AM GEOGRAPHIC ANALYST 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 CHLAMYDIA TRACHOMATIS/NEISSERI A GONORRHOEAE BY PCR STAT 05/25/2021 6:45 PM CDT HIV 1&2 ANTIBODY (EXTERNAL RESULT) Routine 12/04/2020 12:00 AM GEOGRAPHIC ANALYST from Last 3 Months or Most Recently Relevant to Health Maintenance Results * (ABNORMAL) TSH (08/13/2024 11:55 AM GEOGRAPHIC ANALYST) TSH 0.19(L) 0.30 - 4.20 uIU/mL 08/13/2024 10:52 PM GEOGRAPHIC ANALYST [facility] Blood BLOOD SPECIMEN / Unknown Venipuncture / Unknown 08/13/2024 11:55 AM GEOGRAPHIC ANALYST 08/13/2024 11:55 AM GEOGRAPHIC ANALYST us Rocio Mccarthy MD LAB - BLOOD ORDERABLES Fi nal Result [facility] [address] [facility], [address] [phone] * T4 free (08/13/2024 11:55 AM GEOGRAPHIC ANALYST) Free T4 1.50 0.90 - 1.70 ng/dL 08/13/2024 10:52 PM GEOGRAPHIC ANALYST [facility] Blood BLOOD SPECIMEN / Unknown Venipuncture / Unknown 08/13/2024 11:55 AM GEOGRAPHIC ANALYST 08/13/2024 11:55 AM GEOGRAPHIC ANALYST us Rocio Mccarthy MD LAB - BLOOD ORDERABLES Fi nal Result [facility] [address] [facility], [address] [address] * T3 Free (08/13/2024 11:55 AM GEOGRAPHIC ANALYST) T3 Free 3.5 2.0 - 4.4 pg/mL 08/13/2024 10:52 PM GEOGRAPHIC ANALYST [facility] Blood BLOOD SPECIMEN / Unknown Venipuncture / Unknown 08/13/2024 11:55 AM GEOGRAPHIC ANALYST 08/13/2024 11:55 AM GEOGRAPHIC ANALYST us Rocio Mccarthy MD LAB - BLOOD ORDERABLES Fi nal Result [facility] [address] [facility], [address] [address] * Chlamydia trachomatis/Neisseria gonorrhoeae by PCR (05/25/2021 6:45 PM CDT) Chlamydia Trachomatis Negative Negative 05/26/2021 11:22 AM CDT [facility] Comment: Negative for C. trachomatis rRNA by assembler flexible leads mediated amplification. A negative result by assembler flexible leads mediated amplification does not preclude the presence of infection because results are dependent on proper and adequate collection, absence of inhibitors and sufficient rRNA to be detected. Neisseria gonorrhoeae Negative Negative 05/26/2021 11:22 AM CDT [facility] Comment:Negative for N. gono rrhoeae rRNA by assembler flexible leads mediated amplification. A negative result by assembler flexible leads mediated amplification does not preclude the presence of C. trachomatis infection because results are dependent on proper and adequate collection, absence of inhibitors and sufficient rRNA to be detected. Swab CERVIX UTERI STRUCTURE / Unknown Non-blood Collection / Unknown 05/25/2021 6:45 PM CDT 05/25/2021 7:17 PM CDT Jaimie Clinton MD LAB - MICRO GENERAL ORD ERABLES Final Result [facility] Infectious Diseases Diagnostic Lab (IDDL) [address] [place] [address], [address] [place] [address], [facility] [phone] * HIV-1 Antibody (External Result) (12/04/2020 12:00 AM GEOGRAPHIC ANALYST) HIV 1&2 Antibody (External) Negative Nonreactive EXTERNAL LAB 12/04/2020 Patient Reported LAB - HIM EXTERNAL RESULT Final Result EXTERNAL LAB External Lab from Last 3 Months or Most Recently Relevant to Health Maintenance Insurance [facility] PMAP c/o [place] [id number] Advance Directives For more information, please contact: [phone] * Full Code (Latest Code Status on [...] patie nt/ legal decision maker Care Teams Certified Surgical Assistant Relationship Specialty Start Date End Date Sammi Guadarramaher PCP - General 12/17/19 Rocio Mccarthy MD [address] [facility] [address] [place] [address] Assigned Endocrinology Provider 04/24/22 Erica Tristan MD [address] [facility] [address] [place] [address] Assigned OBGYN Provider 08/06/23
--- OUTSIDE RECORDS SUMMARY | 2024-11-10 09:50 | XMS_ITS | Encounter Summary ---
Author Organization [facility] Address [address] [place] [address]. [place] [address] Care Team Providers Care Aix Architect Name Role Phone Billie Guadarrama Primary Care Provider Rocio Mccarthy MD Unavailable [phone] Erica Tristan MD Unavailable [phone] Encounter Details Date Type Department Care Team (Late st Contact Info) Description 05/31/2022 MyC Medical Advice [facility] [address] [facility] [address] [place] [address] Rocio Mccarthy MD [address] [place] [address] Social History Tobacco Use Types [...] Sex Assigned at Female 10/05/2020 9:54 PM PETROLEUM ENGINEERING TEACHER Legal Sex Female 4:15 AM PETROLEUM ENGINEERING TEACHER Gender Identity Female 10/05/2020 9:54 PM PETROLEUM ENGINEERING TEACHER Sexual Orientation Straight 10/05/2020 9: 54 PM PETROLEUM ENGINEERING TEACHER documented as of this encounter Miscellaneous [...] Description 12/31/2024 11:00 AM CDT Virtual Visit [facility] [address] [facility] [address] [place] [phone] Rocio Mccarthy MD [address] [place], [place] [address] documented as of this encounter Visit Diagnoses Not on filedocumented in this encounter Care Teams Aix Architect Relationship Specialty Start Date End Date Billie Guadarrama PCP - General 12/17/19 Rocio Mccarthy MD [address] [place], [place] [address] Assigned Endocrinology Provider 04/24/22 Erica Tristan MD [address] [place], [place] [address] Assigned OBGYN Provider 08/06/23 documented as of this encounter
--- OUTSIDE RECORDS SUMMARY | 2024-11-10 09:50 | XMS_ITS | Encounter Summary ---
Author Organization [facility] Address [address] [place] [address]. [place] [address] Care Team Providers Care Group Captain Name Role Phone Billie Guadarrama Primary Care Provider [phone] Rocio Mccarthy MD Unavailable [phone] Erica Tristan MD Unavailable [phone] Encounter Details Date Type Department Care Team (Late st Contact Info) Description 11/03/2023 MyC Medical Advice [facility] [address] [place] [address] Karina Bone, KEVAN Social History Tobacco [...] Assigned at Female 10/05/2020 9:54 PM WOOL TAMPER Legal Sex Female 4:15 AM WOOL TAMPER Gender Identity Female 10/05/2020 9:54 PM WOOL TAMPER Sexual Orientation Straight 10/05/2020 9: 54 PM WOOL TAMPER documented as of this encounter Plan of Treatment Upcoming Encounters Date Type Department Care Team (Late st Contact Info) Description 12/31/2024 11:00 AM CDT Virtual Visit [facility] [address] [place] [address] Rocio Mccarthy MD [address] [place] [address] documented as of this encounter Visit Diagnoses Not on filedocumented in this encounter Additional Health Concerns Assessment Noted Time PHQ-9 Depression Total Score: 11 023 10:04 AM CDT documented as of this encounter Care Teams Group Captain Relationship Specialty Start Date End Date Billie Guadarrama PCP - General 12/17/19 Rocio Mccarthy MD [address] [place] [address] Assigned Endocrinology Provider 04/24/22 Erica Tristan MD [address] [facility] [address] [place] [address] Assigned OBGYN Provider 08/06/23 documented as of this encounter
--- OUTSIDE RECORDS SUMMARY | 2024-11-10 09:50 | XMS_ITS | Encounter Summary ---
Author Organization [facility] Address [address] [place] [address]. [place] [address] Care Team Providers Care Blend Plant Operator Name Role Phone Billie Guadarrama Primary Care Provider Rocio Mccarthy MD Unavailable [phone] Erica Tristan MD Unavailable [phone] Encounter Details Date Type Department Care Team (Late st Contact Info) Description 08/24/2023 MyC Medical Advice [facility] [address] [facility] [address] [place] [address] Rocio Mccarthy MD [address] [place] [address] Social History Tobacco Use Types [...] Sex Assigned at Female 10/05/2020 9:54 PM FARM MANAGER Legal Sex Female 4:15 AM FARM MANAGER Gender Identity Female 10/05/2020 9:54 PM FARM MANAGER Sexual Orientation Straight 10/05/2020 9: 54 PM FARM MANAGER documented as of this encounter Miscellaneous Notes * Telephone Encounter - Rocio Mccarthy MD - 08/26/2023 10:48 AM FARM MANAGER Latest Ref Rng 08/23/2023 1:26 PM ENDO [...] 1 week after that to discuss results. MANAGER * Telephone Encounter - Ramya Lugo RN - 08/24/2023 11:51 AM CST In response to lab comments 08/23/23: Thyroid labs are in acceptable range. How many weeks are you so far? How are you feeling? MANAGER documented in this encounter Plan of Treatment Upcoming Encounters Date Type Department Care Team (Late st Contact Info) Description 12/31/2024 11:00 AM CDT Virtual Visit [facility] [address] [place] [address] Rocio Mccarthy MD [address] [place], [place] [address] documented as of this encounter Visit Diagnoses Not on filedocumented in this encounter Additional Health Concerns Assessment Noted Time PHQ-9 Depression Total Score: 11 023 10:04 AM CDT documented as of this encounter Care Teams Blend Plant Operator Relationship Specialty Start Date End Date Billie Guadarrama PCP - General 12/17/19 Rocio Mccarthy MD [address] [place], [place] [address] Assigned Endocrinology Provider 04/24/22 Erica Tristan MD [address] [place], [place] [address] Assigned OBGYN Provider 08/06/23 documented as of this encounter
--- OUTSIDE RECORDS SUMMARY | 2024-11-10 09:50 | XMS_ITS | Continuity of Care Document ---
Author Organization [facility] Address [address] [address] [place] [address] Phone Care Team Providers Care Grinding Mill Operator Name Role Phone Yoshi Patel MD Unavailable Unavailabl e Allergies, Adverse Reactions, Alerts Substance Reaction Status Criticality estradiol Rash Active No Information OXYCODONE HCL Rash Active No Information acetaminophen Rash Active No Information Medications Medication Instructions Dosage Effective Dates (start - stop) Status Comments levothyroxine 175 mcg tablet take 1 tablet by oral route every day 175 MCG - Active phentermine 37.5 mg capsule take 1 capsule by oral route every day before breakfast 37.5 MG - Active Vitamin D3 2,000 unit capsule take 1 tablet by oral route every day 1 tablet - Active spironolactone 100 mg tablet take 1 tablet by oral route every day 100 MG - Active amitriptyline 50 mg tablet take 1 tablet by oral route every day at bedtime 50 MG - Active Procedures Procedure Date Colonoscopy Flex; W/remov Les- 19 Level Iv-surg Path Gross/micro 19 Offic/outpt E&m New Mod-hi Advance Directives Directive Yes / No Effective Date File Name No Information Encounters Encounter Description Practice Location Reason(s) For Visit Diagnoses Date Provider Providers Copied on Encounter [facility], [address] [address], [place], [id number], [place] tel:[phone] [facility] No Information 4 Darnell Belle. [address] [facility], [place], [id number] , [place]. tel:[phone] [facility], [address] [address], [place], [id number], [place] tel:[phone] [facility] Colorectal polypsBenign neoplasm of cecumHemorrhage of anus and rectum 9 Kelsey Alvarado. [address] [facility], [facility] [address], [place], [id number] , [place]. tel:[phone] Referring Provider: Referral Self, USE FOR SELF REFERRALS. Offic/outpt E&m New Mod-hi [facility], [address] [address], [place], [id number], [place] tel:[phone] [facility] GI Symptoms or Concerns (chief complaint) Generalized abdominal painRectal bleedingChange in bowel functionDietary counseling and surveillanceElevate d blood-pressure reading, w/o diagnosis of htn Tien Farrell. [address] [facility], [facility] [address], [place], [id number] , [place]. tel:[phone] Referring Provider: Billie Guadarrama DO, [address] [place] [address], [address]. tel:[phone] Family History Family Member Type Diagnosis Age At Onset Mother Problem (finding) Obesity Mother Problem (finding) gallbladder disease Father Problem (finding) Alive and well Mother Problem (finding) Alive and well Brother Problem (finding) Alive and well Mother Problem (finding) Irritable bowel syndrom e Immunizations Vaccine Date Status Comments Respiratory syncytial virus (RSV), vaccine, bivalent, protein subunit RSV prefusion F, diluent reconstituted, 0.5 mL, preservative free administered Note: [facility] bi-direct ional interface ; Source: Other Registry tetanus toxoid, reduced diphtheria toxoid, and acellular pertussis vaccine, adsorbed administered Note: [facility] b i-directional interface ; Source: Other Registry Afluria Qd administered Note: [facility] bi-directional interface ; Source: Other Registry Afluria Qd administered Note: [facility] bi-directional interface ; Source: Other Registry measles, mumps and rubella v irus vaccine administered Note: [facility] bi-direct ional interface ; Source: Other Registry tetanus toxoid, reduced diphtheria toxoid, and acellular pertussis vaccine, adsorbed administered Note: [facility] b i-directional interface ; Source: Other Registry Afluria Qd administered Note: [facility] bi-directional interface ; Source: Other Registry Afluria Qd administered Note: [facility] bi-directional interface ; Source: Other Registry Afluria Qd administered Note: [facility] bi-directional interface ; Source: Other Registry Afluria Qd administered Note: [facility] bi-directional interface ; Source: Other Registry Afluria Qd administered Note: [facility] bi-directional interface ; Source: Other Registry Afluria Qd administered Note: [facility] bi-directional interface ; Source: Other Registry Afluria Qd administered Note: [facility] bi-directional interface ; Source: Other Registry meningococcal oligosaccharid e (groups A, C, Y and W-135) diphtheria toxoid conjugate vaccine (MCV4O) administered Note: [facility] bi-direct ional interface ; Source: Other Registry human papilloma virus vaccin e, quadrivalent administered Note: [facility] bi-direct ional interface ; Source: Other Registry human papilloma virus vaccin e, quadrivalent administered Note: [facility] bi-direct ional interface ; Source: Other Registry Influenza, split virus, trivalent, injectable, preservative free administered Note: [facility] bi-direct ional interface ; Source: Other Registry human papilloma virus vaccin e, quadrivalent administered Note: [facility] bi-direct ional interface ; Source: Other Registry Influenza, split virus, trivalent, injectable, contains preservative administered Note: [facility] bi-direct ional interface ; Source: Other Registry tetanus toxoid, reduced diphtheria toxoid, and acellular pertussis vaccine, adsorbed administered Note: [facility] b i-directional interface ; Source: Other Registry Influenza, split virus, trivalent, injectable, preservative free administered Note: [facility] bi-direct ional interface ; Source: Other Registry Novel [id number], all formulations administered Note: [facility] bi-direct ional interface ; Source: Other Registry Havrix pediatric administered Note: [facility] bi-directional interface ; Source: Other Registry varicella virus vaccine administered Note : [facility] bi-directional interface ; Source: Other Registry Influenza, split virus, trivalent, injectable, contains preservative administered Note: [facility] bi-direct ional interface ; Source: Other Registry Havrix pediatric administered Note: [facility] bi-directional interface ; Source: Other Registry Influenza, split virus, trivalent, injectable, contains preservative administered Note: [facility] bi-direct ional interface ; Source: Other Registry Influenza, split virus, trivalent, injectable, contains preservative administered Note: [facility] bi-direct ional interface ; Source: Other Registry Influenza, split virus, trivalent, injectable, contains preservative administered Note: [facility] bi-direct ional interface ; Source: Other Registry poliovirus vaccine, inactivated administe red Note: [facility] bi- directional interface ; Source: Other Registry Haemophilus influenzae type b conjugate and Hepatitis B vaccine administered Note: [facility] bi- directional interface ; Source: Other Registry diphtheria, tetanus toxoids and acellular pertussis vaccine administered Note: [facility] b i-directional interface ; Source: Other Registry Energix Pediatric administered Note: [facility] bi-directional interface ; Source: Other Registry Payers Payer name Insurance type Covered libertarian ID Authoriza tion(s) No Information Social History Type Description Quantity Date Captured Comments Sex Female Smoking Status No Information Chief Complaint And Reason For Visit No Information Reason For Referral Reason For Referral No Information Plan Of Treatment Date Type Action Status Goal Lifestyle education regardin g diet completed Referral Ordered: Colonoscopy Appointment date/timeframe: 06/07/2019 ordered History Of Present Illness Encounter Date Complaint History Of Prese nt Illness GI Symptoms or Concerns Altagracia Garcia is a 23-year-old woman with a history of anxiety, depression, fibromyalgia, PCOS, hypothyroidism on thyroid replacement therapy, obesity and previous cholecystectomy in 2016, who presents for change in bowel habits and rectal bleeding about 2 months ago. She is sent by her primary care provider, Billie Guadarrama.The patient notes that she has had alternating bowel habits ever since her cholecystectomy in 2016. This generally has been looser stool initially after cholecystectomy, but then has turned into alternating between watery stools and constipation. More recently in the last couple months or so, she has been having predominantly constipation with a bowel movement every week or so. However, sometimes the bowel movements are loose or even watery and sometimes they are more hard. She only started having rectal bleeding about 2 months ago. She notes mostly bright red blood in the water and on the toilet paper, but sometimes mixed in with her stool. She gets Functional Status Date Functional Assessmen t No Information Instructions Date Instruction Additional Infor mation Colon Cancer Prevention Related to Colorectal polyps Colon Polyps Related to Color ectal polyps Hemorrhoids Related to Recta l bleeding High Fiber Diet Related to Recta l bleeding Lifestyle education regarding di et Related to Dietary counseling and surveillance Assessments Type Assessment Date No Information Patient Care Teams Name Effective Dates (start - stop) Status Members No Information
--- OUTSIDE RECORDS SUMMARY | 2024-11-10 09:50 | XMS_ITS | Continuity of Care Document ---
Author Organization [facility] Address [address] [facility] [address] [place] [address] Phone Care Team Providers Care Insurance Policy Issue Clerk Name Role Phone Juan Rodriguez DO Unavailable [...] suspected, a test for HCV RNA(test code 21902) is suggested. For additional information please refer tohttp://education.blinkbox music/faq/FAQ22v 1(This link is being provided for informational/educational [...] New [facility] , [address], [place], [address], [place] tel:[phone] [facility] , Musculoskele desiree pain (chief complaint) Myalgia, unspecified sitePain in unspecified lower legTingling skinOther low back painDry eye syndrome of bilateral lacrimal glandsDiplop iaGoiter 3 Michael Martinez. [facility] [address], [place], [address], [place]. tel:[phone] Attending Physician: Billie Guadarrama, [facility] [address] , [place], [address]. tel:[phone] ring Provider: Juan Woods, [facility] [address], [place], [address]. tel:[phone] Family History Family Member Type Diagnosis Age At Onset No Information Payers Payer name Insurance type Covered republican ID Authoriza tijoseph(s) Pepe BRENNAN [id number] Social History Type Description Quantity Date Captured [...] Mental Status Date Cognitive Assessment Orientation - [place] ed to time, place, person, situation. Patient Care Teams Name Effective Dates (start - stop) Status Members No Information
--- OUTSIDE RECORDS SUMMARY | 2024-11-10 09:50 | XMS_ITS | Encounter Summary ---
Author Organization [facility] Address [address] [place] [address]. [place] [address] Care Team Providers Care Angiography Nurse Name Role Phone Billie Guadarrama Primary Care Provider Rocio Mccarthy MD Unavailable [phone] Erica Tristan MD Unavailable [phone] Encounter Details Date Type Department Care Team (Late st Contact Info) Description 03/23/2023 MyC Medical Advice [facility] [address] [place] [address] Rocio Mccarthy MD [address] [place] [address] Social History Tobacco Use Types [...] Sex Assigned at Female 10/05/2020 9:54 PM NEIGHBORHOOD PLANNER Legal Sex Female 4:15 AM NEIGHBORHOOD PLANNER Gender Identity Female 10/05/2020 9:54 PM NEIGHBORHOOD PLANNER Sexual Orientation Straight 10/05/2020 9: 54 PM NEIGHBORHOOD PLANNER documented as of this encounter Miscellaneous Notes * Telephone Encounter - Rocio Mccarthy MD - 03/28/2023 4:49 PM CDT Noted low TSH. Please place orders for TSH, Free T4 and T3 levels. Furhter work up based on that. documented in this encounter Plan of Treatment Upcoming Encounters Date Type Department Care Team (Late st Contact Info) Description 12/31/2024 11:00 AM CDT Virtual Visit [facility] [address] [place] [phone] Rocio Mccarthy MD [address] [place] [address] documented as of this encounter Visit Diagnoses Not on filedocumented in this encounter Care Teams Angiography Nurse Relationship Specialty Start Date End Date Billie Guadarrama PCP - General 12/17/19 Rocio Mccarthy MD [address] [place] [address] Assigned Endocrinology Provider 04/24/22 Erica Tristan MD [address] [place], [place] [address] Assigned OBGYN Provider 08/06/23 documented as of this encounter
--- OUTSIDE RECORDS SUMMARY | 2024-11-10 09:50 | XMS_ITS | Encounter Summary ---
Author Organization [facility] Address [address] [place] [address]. [place] [address] Care Team Providers Care Solid Glass Rod Dowel Machine Operator Name Role Phone Billie Guadarrama Primary Care Provider [phone] Anthony Shaffer MD Unavailable [phone] Rocio Mccarthy MD Unavailable [phone] Erica Tristan MD Unavailable [phone] Encounter Details Date Type Department Care Team (Late st Contact Info) Description 03/31/2022 MyC Medical Advice [facility] [address] [place] [address] Rocio Mccarthy MD [address] [place] [address] Social History Tobacco Use Types [...] Sex Assigned at Female 10/05/2020 9:54 PM FIRE MANAGER Legal Sex Female 4:15 AM FIRE MANAGER Gender Identity Female 10/05/2020 9:54 PM FIRE MANAGER Sexual Orientation Straight 10/05/2020 9: 54 PM FIRE MANAGER documented as of this encounter Miscellaneous Notes * Telephone Encounter - Jina Harrell RN - 04/01/2022 8:21 AM CDT Okay to use ANGÉLICA spot documented in this encounter Plan of Treatment Upcoming Encounters Date Type Department Care Team (Late st Contact Info) Description 12/31/2024 11:00 AM CDT Virtual Visit [facility] [address] [facility] [address] [place] [address] Rocio Mccarthy MD [address] [place] [address] documented as of this encounter Visit Diagnoses Not on filedocumented in this encounter Care Teams Solid Glass Rod Dowel Machine Operator Relationship Specialty Start Date End Date Billie Guadarrama PCP - General 12/17/19 Anthony Shaffer MD [address] [place], [place] [address] Assigned OBGYN Provider 05/10/21 Rocio Mccarthy MD [address] [place] [address] Assigned Endocrinology Provider 04/24/22 Erica Tristan MD [address] [place], [place] [address] Assigned OBGYN Provider 08/06/23 documented as of this encounter
--- OUTSIDE RECORDS SUMMARY | 2024-11-10 09:50 | XMS_ITS | Encounter Summary ---
Author Organization [facility] Address [address] [place] [address]. 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 [...] Sex Assigned at Female 10/05/2020 9:54 PM TELEHEALTH DIRECTOR Legal Sex Female 4:15 AM TELEHEALTH DIRECTOR Gender Identity Female 10/05/2020 9:54 PM TELEHEALTH DIRECTOR Sexual Orientation Straight 10/05/2020 9: 54 PM TELEHEALTH DIRECTOR documented as of this encounter Miscellaneous [...] Virtual Visit [facility] [address] [facility] [address] [place] [address] Rocio Mccarthy MD [address] [place] [address] documented as of this encounter Results * Thyroglobulin and Antibody Reflex (02/13/2024 2:02 PM CDT) Thyroglobulin Antibody <20 <40 IU/mL 02/14/2024 9:14 AM CDT SPECIALTY CORE/PROT/END O Blood BLOOD SPECIMEN / Unknown Venipuncture / Unknown 02/13/2024 2:02 PM CDT 02/13/2024 2:02 PM CDT Rocio Mccarthy MD LAB - BLOOD ORDERABLES Fi nal Result [facility] SPECIALTY CORE/PROT/ENDO Specialty Core/Prot/Endo [address] [facility], [address] * (ABNORMAL) Thyroid peroxidase antibody (02/13/2024 2:02 PM CDT) Thyroid Peroxidase Antibody 927(H) <35 IU/mL 02/14/2024 9:14 AM CDT [facility] SPECIALTY CORE/PROT/ENDO Blood BLOOD SPECIMEN / Unknown Venipuncture / Unknown 02/13/2024 2:02 PM CDT 02/13/2024 2:02 PM CDT Rocio Mccarthy MD LAB - BLOOD ORDERABLES Fi nal Result Performing Organization Address City/[facility] Co de Phone Number [facility] SPECIALTY CORE/PROT/ENDO Specialty Core/Prot/Endo [address] [facility], [address] * T3 reverse (02/13/2024 2:02 PM CDT) T3, Reverse ng/dL 18.1 9.0 - 27.0 ng/dL 02/16/2024 7:30 AM CDT [employer] Comment: INTERPRETIVE INFORMATION: Triiodothyronine, Reverse - LC-MS/MS This test was developed and its performance characteristics determined by [facility]. It has not been cleared or approved by the [place] Food and Drug Administration. This test was performed in a CLIA certified laboratory and is intended for clinical purposes. Performed By: [facility] [address] [place] [address] Barrel Lathe Operator: Fco Rosa MD, PhD CLIA Number: [id number] Blood BLOOD SPECIMEN / Unknown Venipuncture / Unknown 02/13/2024 2:02 PM CDT 02/13/2024 2:02 PM CDT Rocio Mccarthy MD LAB - BLOOD ORDERABLES Fi nal Result Performing Organization Address City/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
--- OUTSIDE RECORDS SUMMARY | 2024-11-10 09:50 | XMS_ITS | Clinical Summary ---
Author Organization [facility] Address [address] [place] [address] Care Team Providers Care Director Home Health Name Role Phone Billie Guadarrama Primary Care Provider Rocio Mccarthy MD Unavailable [phone] Erica Tristan MD Unavailable [phone] Allergies Active Allergy Reactions Criticality Noted [...] Care Team Description 09/19/2024 MyC Medical Advice [facility] [address] [place] [address] Rocio Mccarthy MD 08/17/2024 MyC Medical Advice [facility] [address] [facility] [address] [place] [address] Rocio Mccarthy MD 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) 08/13/2024 12:00 PM HOLTER SCANNING TECHNICIAN Lab [facility] [address] [facility] [address] [place] [address] 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 08/13/2024 Travel 08/10/2024 Documentation Only [facility] [address] [facility] [address] [place] [address] Rocio Mccarthy MD from Last 3 Months Immunizations Name Administration Dates Next Due Comvax (HIB/HepB) 01/07/1998,1997 DTAP (<7y) 09/20/2002, 8,1997,1996 DTP-Hib 1997 DTaP, Unspecified 04/06/2010 [id number] Novel Flu 12/23/2009 HEPATITIS A (PEDS 12M-18Y) [...] Sex Assigned at Female 10/05/2020 9:54 PM HOLTER SCANNING TECHNICIAN Legal Sex Female 4:15 AM HOLTER SCANNING TECHNICIAN Gender Identity Female 10/05/2020 9:54 PM HOLTER SCANNING TECHNICIAN Sexual Orientation Straight 10/05/2020 9: 54 PM HOLTER SCANNING TECHNICIAN Last Filed Vital Signs Vital Sign Reading Time Taken Comments Blood Pressure 114/57 11/18/2023 10:26 AM HOLTER SCANNING TECHNICIAN Pulse 99 11/18/2023 10:26 AM HOLTER SCANNING TECHNICIAN Temperature 36.6 C (97.9 F) 10/20/2023 7:18 AM HOLTER SCANNING TECHNICIAN Respiratory Rate 16 10/20/2023 7:18 AM HOLTER SCANNING TECHNICIAN Oxygen Saturation 98% 11/04/2023 3:10 PM HOLTER SCANNING TECHNICIAN Inhaled Oxygen Concentration - - Weight 111.1 kg (245 lb) 06/28/2024 3:28 PM CDT Height 165.1 cm (5' 5) 10/19/2023 12:22 PM HOLTER SCANNING TECHNICIAN Body Mass Index 40.77 10/19/2023 12:22 PM HOLTER SCANNING TECHNICIAN Plan of Treatment Upcoming Encounters Date Type Department Care Team (Late st Contact Info) Description 12/31/2024 11:00 AM CDT Virtual Visit [facility] [address] [facility] [address] [place] [address] Rocio Mccarthy MD [address] [place] [address] Health Maintenance Due Date Last Done Comments ADVANCE CARE PLANNING 1997 ANNUAL REVIEW OF HM ORDERS 1997 HEPATITIS C SCREENING 2015 COVID-19 Vaccine ( season) 2024 PHQ-2 (once per calendar year) 2024 06/28/2024, 06/28/2024, 10/18/2023, Additional history exists YEARLY PREVENTIVE VISIT 07/11/2025 07/11/20 24, 06/01/2002, 05/23/2001 TSH W/FREE T4 REFLEX 08/13/2025 08/13/2024, 08/13/2024, 06/25/2024, Additional history exists PAP 01/23/2027 01/24/2024, 01/08, 12/04/2020 DTAP/TDAP/TD IMMUNIZATION (9 - Td or Tdap) 10/19/2033 10/19/2023, 05/11/2021, 09/10/2020, Additional history exists ZOSTER IMMUNIZATION (1 of 2) 2047 RSV VACCINE (1 - 1-dose 75+ series) 2072 HEPATITIS B IMMUNIZATION Completed 998, 01/07/1998, 01/07/1998, Additional history exists HPV IMMUNIZATION Completed 10/27/2012, , 07/06/2011 MENINGITIS IMMUNIZATION Completed 07/26/2013 HIV SCREENING Completed 12/04/2020 CHLAMYDIA SCREENING Discontinued 05/25/2021 INFLUENZA VACCINE Completed 07/11/2024, , 07/07/2023, Additional history exists Pneumococcal Vaccine: Pediatrics (0 to 5 Years) and At-Risk Patients (6 to 49 Years) Aged Out No longer eligible based on patient's age to complete this topic RSV MONOCLONAL ANTIBODY Aged Out No l onger eligible based on patient's age to complete this topic Procedures Procedure Name Priority Date/Time Associated Diagnosis Comments TSH Routine 08/13/2024 11:55 AM HOLTER SCANNING TECHNICIAN 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 T4 FREE Routine 08/13/2024 11:55 AM HOLTER SCANNING TECHNICIAN 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 T3 FREE Routine 08/13/2024 11:55 AM HOLTER SCANNING TECHNICIAN 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 CHLAMYDIA TRACHOMATIS/NEISSERI A GONORRHOEAE BY PCR STAT 05/25/2021 6:45 PM CDT HIV 1&2 ANTIBODY (EXTERNAL RESULT) Routine 12/04/2020 12:00 AM HOLTER SCANNING TECHNICIAN from Last 3 Months or Most Recently Relevant to Health Maintenance Results * (ABNORMAL) TSH (08/13/2024 11:55 AM HOLTER SCANNING TECHNICIAN) TSH 0.19(L) 0.30 - 4.20 uIU/mL 08/13/2024 10:52 PM HOLTER SCANNING TECHNICIAN [facility] Blood BLOOD SPECIMEN / Unknown Venipuncture / Unknown 08/13/2024 11:55 AM HOLTER SCANNING TECHNICIAN 08/13/2024 11:55 AM HOLTER SCANNING TECHNICIAN us Rocio Mccarthy MD LAB - BLOOD ORDERABLES Fi nal Result [facility] [place] [facility] Lab [address] [facility], [address] * T4 free (08/13/2024 11:55 AM HOLTER SCANNING TECHNICIAN) Free T4 1.50 0.90 - 1.70 ng/dL 08/13/2024 10:52 PM HOLTER SCANNING TECHNICIAN [facility] Blood BLOOD SPECIMEN / Unknown Venipuncture / Unknown 08/13/2024 11:55 AM HOLTER SCANNING TECHNICIAN 08/13/2024 11:55 AM HOLTER SCANNING TECHNICIAN us Rocio Mccarthy MD LAB - BLOOD ORDERABLES Fi nal Result [facility] Core Lab [address] [facility], [address] * T3 Free (08/13/2024 11:55 AM HOLTER SCANNING TECHNICIAN) T3 Free 3.5 2.0 - 4.4 pg/mL 08/13/2024 10:52 PM HOLTER SCANNING TECHNICIAN [facility] Blood BLOOD SPECIMEN / Unknown Venipuncture / Unknown 08/13/2024 11:55 AM HOLTER SCANNING TECHNICIAN 08/13/2024 11:55 AM HOLTER SCANNING TECHNICIAN us Rocio Mccarthy MD LAB - BLOOD ORDERABLES Fi nal Result [facility] [place] [facility] [address] [facility], [address] * Chlamydia trachomatis/Neisseria gonorrhoeae by PCR (05/25/2021 6:45 PM CDT) Chlamydia Trachomatis Negative Negative 05/26/2021 11:22 AM CDT [facility] Comment: Negative for C. trachomatis rRNA by regional director mediated amplification. A negative result by regional director mediated amplification does not preclude the presence of infection because results are dependent on proper and adequate collection, absence of inhibitors and sufficient rRNA to be detected. Neisseria gonorrhoeae Negative Negative 05/26/2021 11:22 AM CDT [facility] Comment:Negative for N. gono rrhoeae rRNA by regional director mediated amplification. A negative result by regional director mediated amplification does not preclude the presence of C. trachomatis infection because results are dependent on proper and adequate collection, absence of inhibitors and sufficient rRNA to be detected. Swab CERVIX UTERI STRUCTURE / Unknown Non-blood Collection / Unknown 05/25/2021 6:45 PM CDT 05/25/2021 7:17 PM CDT Jaimie Clinton MD LAB - MICRO GENERAL ORD ERABLES Final Result [facility] Infectious [facility] Diagnostic Lab (IDDL) [address] [place] [address], [address] [place] [address], [facility] [phone] * HIV-1 Antibody (External Result) (12/04/2020 12:00 AM HOLTER SCANNING TECHNICIAN) HIV 1&2 Antibody (External) Negative Nonreactive EXTERNAL LAB 12/04/2020 us Patient Reported LAB - HIM EXTERNAL RESULT Final Result EXTERNAL LAB External Lab from Last 3 Months or Most Recently Relevant to Health Maintenance Insurance [facility] [employer] PMAP c/[place] [id number] Advance Directives For more information, please contact: [phone] * Full Code (Latest Code Status on [...] nt/ legal decision maker Care Teams Director Home Health Relationship Specialty Start Date End Date Sammi Guadarramaher PCP - General 12/17/19 Rocio Mccarthy MD [address] [place], [place] [address] Assigned Endocrinology Provider 04/24/22 Erica Tristan MD [address] [place], [place] [address] Assigned OBGYN Provider 08/06/23
--- OUTSIDE RECORDS SUMMARY | 2024-11-10 09:50 | XMS_ITS | Encounter Summary ---
Author Organization [facility] Address [address] [place] [address]. [place] [address] Care Team Providers Care Surgical Sales Representative Name Role Phone Billie Guadarrama Primary Care Provider Rocio Mccarthy MD Unavailable Anthony Shaffer MD Unavailable Rocio Mccarthy MD Unavailable Erica Tristan MD Unavailable [phone] Encounter Details Date Type Department Care Team (Late st Contact Info) Description 06/08/2021 MyC Medical Advice [facility] [address] [facility] [address] [place] [address] Chelita Harrell, [facility] Social History Tobacco Use Types Packs/Day [...] Sex Assigned at Female 10/05/2020 9:54 PM FIELD CROP FARMER Legal Sex Female 4:15 AM FIELD CROP FARMER Gender Identity Female 10/05/2020 9:54 PM FIELD CROP FARMER Sexual Orientation Straight 10/05/2020 9: 54 PM FIELD CROP FARMER COVID-19 Exposure Response Date Recorded In the [...] [facility] [address] [facility] [address] [place] [phone] Rocio Mccarthy MD [address] [place] [address] documented as of this encounter Visit Diagnoses Not on filedocumented in this encounter Care Teams Surgical Sales Representative Relationship Specialty Start Date End Date Billie Guadarrama PCP - General 12/17/19 Rocio Mccarthy MD [address] [place], [place] [address] Assigned Endocrinology Provider 08/01/20 11/28/21 Anthony Shaffer MD [address] [place], [place] [address] Assigned OBGYN Provider 05/10/21 Rocio Mccarthy MD [address] [place] [address] Assigned Endocrinology Provider 04/24/22 Erica Tristan MD [address] [place], [place] [address] Assigned OBGYN Provider 08/06/23 documented as of this encounter
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
[2024-11-10] MEDS: KETOROLAC 30 MG/ML inj IVP (10:41)
[2024-11-10] MEDS: SUCRALFATE 1 GM TABLET PO (10:41)
[2024-11-10] MEDS: 0.9 % SODIUM CHLORIDE 1000 ml 1,000 ML IV ×2 (10:41→12:06)
[2024-11-10 10:42] LABS: Lactate* 1.6 mmol/L (0.5-1.9)
[2024-11-10 10:46] LABS: Basophils Absolute Auto 0.01 K/uL (0.00-0.30); Basophils Percent Auto 0.1 % (0.0-3.0); Eosinophils Absolute Auto 0.04 K/uL (0.00-0.50); Eosinophils Percent Auto 0.4 % (0.0-7.0); Hematocrit 44.2 % (33.0-51.0); Immature Granulocytes Abs Auto 0.01 K/uL (0.00-0.30); Immature Granulocytes Pct Auto 0.1 %; Lymphocytes Percent Auto 9.6 % (20-44); Mean Corpuscular HGB Conc 34 gm/dL (32-36); Mean Corpuscular Hemoglobin 27 pg (26-34); Mean Corpuscular Volume 79 fL (80-100); Monocytes Percent Auto 2.5 % (0.0-11.0); Neutrophils Percent Auto 87.3 % (42.0-72.0); Platelet Count* 168 K/uL (140-440); RDW Coefficient of Variation % 12.8 % (11.5-15.5); White Blood Count* 9.58 K/uL (4.50-11.00)
[2024-11-10 10:46] LABS: Appearance Urine Clear (Clear); Bilirubin Urine Negative (Negative); Blood Urine Negative (Negative); Color Urine Yellow (Yellow); Glucose Urine Negative (Negative); Ketones Urine 1+ (Negative); Leukocyte Esterase Urine Negative (Negative); Nitrite Urine Negative (Negative); Protein Urine Negative (Negative); Specific Gravity Urine 1.025 (1.000-1.030); Urobilinogen Urine 0.2 (0.2-1.0)
[2024-11-10 10:49] LABS: Ur HCG Qualitative* Negative (Negative)
[2024-11-10 10:49] LABS: Mono Screen* Negative (Negative)
[2024-11-10 10:53] LABS: RBC Urine 0-2 (0-2); Squamous Epithelial Cell Urine Few (None-Few); WBC Urine 0-2 (0-5)
--- OUTSIDE RECORDS SUMMARY | 2024-11-10 11:03 | XMS_ITS | Encounter Summary ---
Author Organization [facility] Address [address] [place] [address]. 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 Legal Sex Female 4:15 AM 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 Gender Identity Female 10/05/2020 9:54 PM 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 Sexual Orientation Straight 10/05/2020 9: 54 PM 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 documented as of this encounter Plan of Treatment Upcoming Encounters Date Type Department Care Team (Late st Contact Info) Description 12/31/2024 11:00 AM CDT Virtual Visit [facility] [address] [place] [address] Rocio Mccarthy MD [address] [place] [address] documented as of this encounter Visit Diagnoses Not on filedocumented in this encounter Additional Health Concerns Assessment Noted Time PHQ-9 Depression Total Score: 11 023 10:04 AM CDT documented as of this encounter Care Teams Forensic Toxicologist Relationship Specialty Start Date End Date Billie Guadarrama PCP - General 12/17/19 Rocio Mccarthy MD [address] [place] [address] Assigned Endocrinology Provider 04/24/22 Erica Tristan MD [address] [facility] [address] [place] [address] Assigned OBGYN Provider 08/06/23 documented as of this encounter
--- OUTSIDE RECORDS SUMMARY | 2024-11-10 11:03 | XMS_ITS | Encounter Summary ---
Author Organization [facility] Address [address] [place] [address]. 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 Legal Sex Female 4:15 AM MANAGER PAYMENT Gender Identity Female 10/05/2020 9:54 PM MANAGER PAYMENT Sexual Orientation Straight 10/05/2020 9: 54 PM MANAGER PAYMENT documented as of this encounter Plan of Treatment Upcoming Encounters Date Type Department Care Team (Late st Contact Info) Description 12/31/2024 11:00 AM CDT Virtual Visit [facility] [address] [place] [address] Rocio Mccarthy MD [address] [place] [address] documented as of this encounter Visit Diagnoses Not on filedocumented in this encounter Additional Health Concerns Assessment Noted Time PHQ-9 Depression Total Score: 11 023 10:04 AM CDT documented as of this encounter Care Teams Customer Care Professional Relationship Specialty Start Date End Date Billie Guadarrama PCP - General 12/17/19 Rocio Mccarthy MD [address] [place] [address] Assigned Endocrinology Provider 04/24/22 Erica Tristan MD [address] [address] [place] [address] Assigned OBGYN Provider 08/06/23 documented as of this encounter
--- OUTSIDE RECORDS SUMMARY | 2024-11-10 11:03 | XMS_ITS | Encounter Summary ---
Author Organization [facility] Address [address] [place] [address]. [place] [address] Care Team Providers Care Aluminum Siding Installer Name Role Phone Billie Guadarrama Primary Care Provider Rocio Mccarthy MD Unavailable Erica Tristan MD Unavailable [phone] Reason for Visit * Reason Onset Date Comments Call Back 09/12/2023 Encounter Details Date Type Department Care Team (Late st Contact Info) Description 09/12/2023 Telephone [facility] [address] [place] [address] Rocio Mccarthy MD [address] [place] [address] Call Back Social History Tobacco [...] Sex Assigned at Female 10/05/2020 9:54 PM 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 Legal Sex Female 4:15 AM 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 Gender Identity Female 10/05/2020 9:54 PM 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 Sexual Orientation Straight 10/05/2020 9: 54 PM 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 documented as of this encounter Miscellaneous Notes * Telephone Encounter - Rocio Mccarthy MD - 09/15/2023 3:33 PM 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 Please see telephone encounter 09/15/2023 MS MANAGER * Telephone Encounter - Chelita Hahn - 09/12/2023 2:56 PM CST [facility] Call Center Phone Message May a detailed message be left on voicemail: yes Reason for Call: Other: 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 Patient is in 2nd trimester of . When calling , please ask for triage nurse. Action Taken: Other: endo Travel Screening: Not Applicable MS MANAGER documented in this encounter Plan of Treatment Upcoming Encounters Date Type Department Care Team (Late st Contact Info) Description 12/31/2024 11:00 AM CDT Virtual Visit [facility] [address] [place] [address] Rocio Mccarthy MD [address] [place] [address] documented as of this encounter Visit Diagnoses Not on filedocumented in this encounter Additional Health Concerns Assessment Noted Time PHQ-9 Depression Total Score: 11 023 10:04 AM CDT documented as of this encounter Care Teams Aluminum Siding Installer Relationship Specialty Start Date End Date Billie Guadarrama PCP - General 12/17/19 Rocio Mccarthy MD [address] [place] [address] Assigned Endocrinology Provider 04/24/22 Erica Tristan MD [address] [place] [address] Assigned OBGYN Provider 08/06/23 documented as of this encounter
--- OUTSIDE RECORDS SUMMARY | 2024-11-10 11:03 | XMS_ITS | Encounter Summary ---
Author Organization [facility] Address [address] [place] [address]. [place] [address] Care Team Providers Care Engineer Soils Name Role Phone Billie Guadarrama Primary Care Provider Rocio Mccarthy MD Unavailable [phone] Erica Tristan MD Unavailable [phone] Encounter Details Date Type Department Care Team (Late st Contact Info) Description 10/09/2023 MyC Medical Advice [facility] [address] [facility] [address] [place] [address] Rocio Mccarthy MD [address] [place] [address] Social History Tobacco Use Types [...] Sex Assigned at Female 10/05/2020 9:54 PM RETAIL MERCHANDISING MANAGER Legal Sex Female 4:15 AM RETAIL MERCHANDISING MANAGER Gender Identity Female 10/05/2020 9:54 PM RETAIL MERCHANDISING MANAGER Sexual Orientation Straight 10/05/2020 9: 54 PM RETAIL MERCHANDISING MANAGER documented as of this encounter Miscellaneous Notes * Telephone Encounter - Nahed Woodruff - 10/12/2023 10:36 AM CST Appointment scheduled. [place] MERCHANDISING MANAGER * Telephone Encounter - Rocio Mccarthy MD - 10/11/2023 10:51 AM RETAIL MERCHANDISING MANAGER Ok for ANGÉLICA at this time. [...] if you need any help with scheduling. [place] MERCHANDISING MANAGER documented in this encounter Plan of Treatment Upcoming Encounters Date Type Department Care Team (Late st Contact Info) Description 12/31/2024 11:00 AM CDT Virtual Visit [facility] [address] [facility] [address] [place] [address] Rocio Mccarthy MD [address] [place] [address] documented as of this encounter Visit Diagnoses Not on filedocumented in this encounter Additional Health Concerns Assessment Noted Time PHQ-9 Depression Total Score: 11 023 10:04 AM CDT documented as of this encounter Care Teams Engineer Soils Relationship Specialty Start Date End Date Billie Guadarrama PCP - General 12/17/19 Rocio Mccarthy MD [address] [place] [address] Assigned Endocrinology Provider 04/24/22 Erica Tristan MD [address] [place] [address] Assigned OBGYN Provider 08/06/23 documented as of this encounter
--- OUTSIDE RECORDS SUMMARY | 2024-11-10 11:03 | XMS_ITS | Encounter Summary ---
Author Organization [place] [facility] Address [address] [place] [address]. [place] [address] Care Team Providers Care Pharmacy Operations Specialist Name Role Phone Billie Guadarrama Primary Care Provider [phone] Rocio Mccarthy MD Unavailable [phone] Erica Tristan MD Unavailable [phone] Encounter Details Date Type Department Care Team (Late st Contact Info) Description 08/15/2023 MyC Medical Advice [facility] [address] [facility] [address] [place] [address] Rocio Mccarthy MD [address] [place] [address] Social History Tobacco Use Types [...] Assigned at Female 10/05/2020 9:54 PM ASSEMBLER GARMENT FORM Legal Sex Female 4:15 AM ASSEMBLER GARMENT FORM Gender Identity Female 10/05/2020 9:54 PM ASSEMBLER GARMENT FORM Sexual Orientation Straight 10/05/2020 9: 54 PM ASSEMBLER GARMENT FORM documented as of this encounter Miscellaneous Notes * Telephone Encounter - Jina Harrell RN - 08/15/2023 9:07 AM ASSEMBLER GARMENT FORM Recommend close follow-up during --recommend lab every 2-3 months during or sooner based on dose adjustment given history of fluctuating labs she needs close follow-up. Follow-up with endocrinology after delivery. MBLER GARMENT FORM documented in this encounter Plan of Treatment Upcoming Encounters Date Type Department Care Team (Late st Contact Info) Description 12/31/2024 11:00 AM CDT Virtual Visit [facility] [address] [place] [phone] Rocio Mccarthy MD [address] [place] [address] documented as of this encounter Visit Diagnoses Not on filedocumented in this encounter Additional Health Concerns Assessment Noted Time PHQ-9 Depression Total Score: 11 023 10:04 AM CDT documented as of this encounter Care Teams Pharmacy Operations Specialist Relationship Specialty Start Date End Date Billie Guadarrama PCP - General 12/17/19 Rocio Mccarthy MD [address] [place], [place] [address] Assigned Endocrinology Provider 04/24/22 Erica Tristan MD [address] [place], [place] [address] Assigned OBGYN Provider 08/06/23 documented as of this encounter
--- OUTSIDE RECORDS SUMMARY | 2024-11-10 11:03 | XMS_ITS | Encounter Summary ---
Author Organization [facility] Address [address] [place] [address]. 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 Follow-up with endocrinology after delivery. AND BLOWER OPERATOR documented in this encounter Plan of Treatment Upcoming Encounters Date Type Department Care Team (Late st Contact Info) Description 12/31/2024 11:00 AM CDT Virtual Visit [facility] [address] [facility] [address] [place] [address] Rocio Mccarthy MD [address] [place] [address] documented as of this encounter Results * (ABNORMAL) T4, free (02/13/2024 2:02 PM CDT) Free T4 2.12(H) 0.90 - 1.70 ng/dL 02/14/2024 12:34 AM CDT [facility] Blood BLOOD SPECIMEN / Unknown Venipuncture / Unknown 02/13/2024 2:02 PM CDT 02/13/2024 2:02 PM CDT Rocio Mccarthy MD LAB - BLOOD ORDERABLES Fi nal Result LABORATORY [facility] [address] [place] [address], [address] [id number] [place] [address] * (ABNORMAL) TSH (02/13/2024 2:02 PM CDT) TSH 0.01(L) 0.30 - 4.20 uIU/mL 02/14/2024 12:34 AM CDT [facility] Blood BLOOD SPECIMEN / Unknown Venipuncture / Unknown 02/13/2024 2:02 PM CDT 02/13/2024 2:02 PM CDT Rocio Mccarthy MD LAB - BLOOD ORDERABLES Fi nal Result LABORATORY [facility] [address] [place] [address], 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
--- OUTSIDE RECORDS SUMMARY | 2024-11-10 11:03 | XMS_ITS | Encounter Summary ---
Author Organization [facility] Address [address] [place] [address]. [place] [address] Care Team Providers Care Oil Derrick Operator Name Role Phone Billie Guadarrama Primary Care Provider Rocio Mccarthy MD Unavailable [phone] Erica Tristan MD Unavailable [phone] Encounter Details Date Type Department Care Team (Late st Contact Info) Description 2024 MyC Medical Advice [facility] [address] [facility] [address] [place] [address] Rocio Mccarthy MD [address] [place] [address] Social History Tobacco Use Types [...] Assigned at Female 10/05/2020 9:54 PM SENIOR WIND ENERGY CONSULTANT Legal Sex Female 4:15 AM SENIOR WIND ENERGY CONSULTANT Gender Identity Female 10/05/2020 9:54 PM SENIOR WIND ENERGY CONSULTANT Sexual Orientation Straight 10/05/2020 9: 54 PM SENIOR WIND ENERGY CONSULTANT documented as of this encounter Miscellaneous [...] [facility] [address] [place] [address] Rcoio Mccarthy MD [address] [place] [address] documented as of this encounter Visit Diagnoses Not on filedocumented in this encounter Additional Health Concerns Assessment Noted Time PHQ-9 Depression Total Score: 11 023 10:04 AM CDT documented as of this encounter Care Teams Oil Derrick Operator Relationship Specialty Start Date End Date Billie Guadarrama PCP - General 12/17/19 Rocio Mccarthy MD [address] [place] [address] Assigned Endocrinology Provider 04/24/22 Erica Tristan MD [address] [facility] [address] [place], [place] [address] Assigned OBGYN Provider 08/06/23 documented as of this encounter
--- OUTSIDE RECORDS SUMMARY | 2024-11-10 11:03 | XMS_ITS | Encounter Summary ---
Author Organization [facility] Address [address] [place] [address]. [place] [address] Care Team Providers Care Technology Internship Name Role Phone Billie Guadarrama Primary Care Provider [phone] Rocio Mccarthy MD Unavailable [phone] Erica Tristan MD Unavailable [phone] Encounter Details Date Type Department Care Team (Late st Contact Info) Description 07/02/[address] [facility] [address] [facility] [address] [place] [address] Chelita Harrell, [facility] Social History Tobacco Use Types Packs/Day Years [...] Sex Assigned at Female 10/05/2020 9:54 PM TECHNOLOGY INTERNSHIP Legal Sex Female 4:15 AM TECHNOLOGY INTERNSHIP Gender Identity Female 10/05/2020 9:54 PM TECHNOLOGY INTERNSHIP Sexual Orientation Straight 10/05/2020 9: 54 PM TECHNOLOGY INTERNSHIP documented as of this encounter Plan of Treatment Upcoming Encounters Date Type Department Care Team (Late st Contact Info) Description 12/31/2024 11:00 AM CDT Virtual Visit [facility] [address] [place] [address] Rocio Mccarthy MD [address] [place] [address] documented as of this encounter Visit Diagnoses Not on filedocumented in this encounter Additional Health Concerns Assessment Noted Time PHQ-9 Depression Total Score: 10 024 3:30 PM CDT documented as of this encounter Care Teams Technology Internship Relationship Specialty Start Date End Date Billie Guadarrama PCP - General 12/17/19 Rocio Mccarthy MD [address] [place] [address] Assigned Endocrinology Provider 04/24/22 Erica Tristan MD [address] [facility] [address] [place] [address] Assigned OBGYN Provider 08/06/23 documented as of this encounter
--- OUTSIDE RECORDS SUMMARY | 2024-11-10 11:03 | XMS_ITS | Encounter Summary ---
Author Organization [facility] Address [address] [place] [address]. [place] [address] Care Team Providers Care Co Founder And Ceo Name Role Phone Billie Guadarrama Primary Care Provider [phone] Rocio Mccarthy MD Unavailable [phone] Erica Tristan MD Unavailable [phone] Encounter Details Date Type Department Care Team (Late st Contact Info) Description 09/15/2023 MyC Medical Advice [facility] [address] [facility] [address] [place] [address] Rocio Mccarthy MD [address] [place] [address] Social History Tobacco Use Types [...] Sex Assigned at Female 10/05/2020 9:54 PM STUDENT AFFAIRS VICE PRESIDENT Legal Sex Female 4:15 AM STUDENT AFFAIRS VICE PRESIDENT Gender Identity Female 10/05/2020 9:54 PM STUDENT AFFAIRS VICE PRESIDENT Sexual Orientation Straight 10/05/2020 9: 54 PM STUDENT AFFAIRS VICE PRESIDENT documented as of this encounter Miscellaneous Notes * Telephone Encounter - Rocio Mccarthy MD - 09/15/2023 3:30 PM STUDENT AFFAIRS VICE PRESIDENT Per VJIAY guidelines; Typically TSH upper reference limit of [...] defined through assessment of local population data commercial pest control representative of a health care provider???s practice. ENT AFFAIRS VICE PRESIDENT documented in this encounter Plan of Treatment Upcoming Encounters Date Type Department Care Team (Late st Contact Info) Description 12/31/2024 11:00 AM CDT Virtual Visit [facility] [address] [facility] [address] [place] [address] Rocio Mccarthy MD [address] [place] [address] documented as of this encounter Visit Diagnoses Not on filedocumented in this encounter Additional Health Concerns Assessment Noted Time PHQ-9 Depression Total Score: 11 023 10:04 AM CDT documented as of this encounter Care Teams Co Founder And Ceo Relationship Specialty Start Date End Date Billie Guadarrama PCP - General 12/17/19 Rocio Mccarthy MD [address] [place] [address] Assigned Endocrinology Provider 04/24/22 Erica Tristan MD [address] [place] [address] Assigned OBGYN Provider 08/06/23 documented as of this encounter
--- OUTSIDE RECORDS SUMMARY | 2024-11-10 11:03 | XMS_ITS | Continuity of Care Document ---
Author Organization [facility] Address [address] [address] [place] [address] Phone Care Team Providers Care Rn Provider Relations Name Role Phone Yoshi Patel MD Unavailable [...] Encounter [facility], [address] [address], [place], [id number], [place] tel:[phone] [facility] No Information 4 Darnell Belle. [address] [facility], [address], [place], [id number] , [place]. tel:[phone] [facility], [address] [address], [place], [id number], [place] tel:[phone] [facility] Colorectal polypsBenign neoplasm of cecumHemorrhage of anus and rectum 9 Kelsey Alvarado. [address] [facility], [facility] [address], [place], [id number] , [place]. tel:[phone] Referring Provider: Referral Self, USE FOR SELF REFERRALS. Offic/outpt E&m New Mod-hi [facility], [address] [address], [place], [id number], [place] tel:[phone] [facility] Symptoms or Concerns (chief complaint) Generalized abdominal painRectal bleedingChange in bowel functionDietary counseling and surveillanceElevate d blood-pressure reading, w/o diagnosis of htn Tien Farrell. [address] [facility], [facility] [address], [place], [id number] , [place]. tel:[phone] Referring Provider: Billie Guadarrama DO, [address] [place] [address], [address]. tel:[phone] Family History Family Member Type Diagnosis Age [...] ional interface ; Source: Other Registry Novel [id number], all formulations administered Note: [facility] bi-direct ional [...] Registry Payers Payer name Insurance type Covered alliance party ID Authoriza tion(s) No Information Social [...]
--- OUTSIDE RECORDS SUMMARY | 2024-11-10 11:04 | XMS_ITS | Encounter Summary ---
Author Organization [facility] Address [address] [place] [address] Care Team Providers Care Retinal Angiographer Name Role Phone Tucker Michel MD Primary Care Provider [phone] Frw, None Primary Care Provider Unavailabl Billie Jensen Primary Care Provider [phone] Rocio Mccarthy MD Unavailable Anthony Shaffer MD Unavailable [phone] Rocio Mccarthy MD Unavailable [phone] Erica Tristan MD Unavailable [phone] Reason for Visit * Reason Comments Abstract Encounter Details Date Type Department Care Team (Late st Contact Info) Description 05/22/2001 Abstract [facility] [address] [place] [id number] Asp Net Mvc Developer, KFredisJ Social History Tobacco Use Types Packs/Day Years Used Date Smoking Tobacco: Never Assessed Comments:NO 2ND HAND SMOKE A T HOME Alcohol Use Standard Drinks/Week Comments Not Asked 0 (1 standard drink = 0.6 oz pur e alcohol) Comments Unknown Sex and Gender Information Value Date Recorded Sex Assigned at Female 10/05/2020 9:54 PM CARPET LOOM FIXER Legal Sex Female 4:15 AM CARPET LOOM FIXER Gender Identity Female 10/05/2020 9:54 PM CARPET LOOM FIXER Sexual Orientation Straight 10/05/2020 9: 54 PM CARPET LOOM FIXER documented as of this encounter Plan of Treatment Upcoming Encounters Date Type Department Care Team (Late st Contact Info) Description 12/31/2024 11:00 AM CDT Virtual Visit [facility] [address] [place] [phone] Rocio Mccarthy MD [address] [place] [address] documented as of this encounter Visit Diagnoses Not on filedocumented in this encounter Care Teams Retinal Angiographer Relationship Specialty Start Date End Date Tucker Michel MD [facility] [address] [facility] [address] [place] [address] PCP - General 11/02/00 02/05/13 Frw, None PCP - General Family Practice 02/06/13 06/09/17 Billie Guadarrama PCP - General 12/17/19 Rocio Mccarthy MD [address] [place], [place] [address] Assigned Endocrinology Provider 08/01/20 11/28/21 Anthony Shaffer MD [address] [facility] [address] [place], [place] [address] Assigned OBGYN Provider 05/10/21 Rocio Mccarthy MD [address] [place], [place] [address] Assigned Endocrinology Provider 04/24/22 Erica Tristan MD [address] [place], [place] [address] Assigned OBGYN Provider 08/06/23 documented as of this encounter
--- OUTSIDE RECORDS SUMMARY | 2024-11-10 11:04 | XMS_ITS | Encounter Summary ---
Author Organization [facility] Address [address] [place] [address]. [place] [address] Care Team Providers Care Teasel Setter Name Role Phone Billie Guadarrama Primary Care Provider Rocio Mccarthy MD Unavailable [phone] Erica Tristan MD Unavailable [phone] Encounter Details Date Type Department Care Team (Late st Contact Info) Description 11/03/2023 MyC Medical Advice [facility] [address] [place] [address] Karina Bone, KEVAN Social History Tobacco [...] Sex Assigned at Female 10/05/2020 9:54 PM HVAC SERVICE MANAGER Legal Sex Female 4:15 AM HVAC SERVICE MANAGER Gender Identity Female 10/05/2020 9:54 PM HVAC SERVICE MANAGER Sexual Orientation Straight 10/05/2020 9: 54 PM HVAC SERVICE MANAGER documented as of this encounter Plan of Treatment Upcoming Encounters Date Type Department Care Team (Late st Contact Info) Description 12/31/2024 11:00 AM CDT Virtual Visit [facility] [address] [place] [address] Rocio Mccarthy MD [address] [place] [address] documented as of this encounter Visit Diagnoses Not on filedocumented in this encounter Additional Health Concerns Assessment Noted Time PHQ-9 Depression Total Score: 11 023 10:04 AM CDT documented as of this encounter Care Teams Teasel Setter Relationship Specialty Start Date End Date Billie Guadarrama PCP - General 12/17/19 Rocio Mccarthy MD [address] [place] [address] Assigned Endocrinology Provider 04/24/22 Erica Tristan MD [address] [facility] [address] [place] [address] Assigned OBGYN Provider 08/06/23 documented as of this encounter
--- OUTSIDE RECORDS SUMMARY | 2024-11-10 11:04 | XMS_ITS | Encounter Summary ---
Author Organization [facility] Address [address] [place] [address]. [place] [address] Care Team Providers Care Regrind Mill Operator Name Role Phone Billie Guadarrama Primary Care Provider Anthony Shaffer MD Unavailable [phone] Rocio Mccarthy MD Unavailable [phone] Erica Tristan MD Unavailable [phone] Encounter Details Date Type Department Care Team (Late st Contact Info) Description 04/19/2022 MyC Medical Advice [address] [phone] Jina Harrell V, RN Social History Tobacco [...] Sex Assigned at Female 10/05/2020 9:54 PM APRON TRIMMER Legal Sex Female 4:15 AM APRON TRIMMER Gender Identity Female 10/05/2020 9:54 PM APRON TRIMMER Sexual Orientation Straight 10/05/2020 9: 54 PM APRON TRIMMER COVID-19 Exposure Response Date Recorded In the last 10 days, have yo u been in contact with someone who was confirmed or suspected to have Coronavirus/COVID-19? No / Unsure 04/05/2022 11:57 AM CDT documented as of this encounter Plan of Treatment Upcoming Encounters Date Type Department Care Team (Late st Contact Info) Description 12/31/2024 11:00 AM CDT Virtual Visit [facility] [address] [facility] [address] [place] [address] Rocio Mccarthy MD [address] [place], [place] [address] documented as of this encounter Visit Diagnoses Not on filedocumented in this encounter Care Teams Regrind Mill Operator Relationship Specialty Start Date End Date Billie Guadrarama PCP - General 12/17/19 Anthony Shaffer MD [address] [place], [place] [address] Assigned OBGYN Provider 05/10/21 Rocio Mccarthy MD [address] [place], [place] [address] Assigned Endocrinology Provider 04/24/22 Erica Tristan MD [address] [place] [address] Assigned OBGYN Provider 08/06/23 documented as of this encounter
--- OUTSIDE RECORDS SUMMARY | 2024-11-10 11:04 | XMS_ITS | Referral Summary ---
Author Organization [place] Address [address] [place] [address] Care Team Providers Care Crusher Supervisor Name Role Phone Billie Guadarrama Primary Care Provider [phone] Rocio Mccarthy MD Unavailable [phone] Erica Tristan MD Unavailable [phone] Encounters Date Type Department Care Team Description 09/19/2024 MyC Medical Advice [facility] [address] [place] [phone] Rocio Mccarthy MD 08/17/2024 MyC Medical Advice [facility] [address] [place] [phone] Rocio Mccarthy MD 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) 08/13/2024 Travel 08/13/2024 12:00 PM HEAVY EQUIPMENT PLUMBING SUPERVISOR Lab [facility] [address] [place] [phone] Hypothyroidism due to Duane's thyroiditis 08/10/2024 Documentation Only [facility] [address] [place] [address] Rocio Mccarthy MD from Last 3 Months [...] 09/20/2002, 8,1997,1996 DTP-Hib 1997 DTaP, Unspecified 04/06/2010 [id number] Novel Flu 12/23/2009 HEPATITIS A (PEDS 12M-18Y) [...] 9: 54 PM HEAVY EQUIPMENT PLUMBING SUPERVISOR Last Filed Vital Signs Vital Sign Reading Time Taken Comments Blood Pressure 114/57 11/18/2023 10:26 AM HEAVY EQUIPMENT PLUMBING SUPERVISOR Pulse 99 11/18/2023 10:26 AM HEAVY EQUIPMENT PLUMBING SUPERVISOR Temperature 36.6 C (97.9 F) 10/20/2023 7:18 AM HEAVY EQUIPMENT PLUMBING SUPERVISOR Respiratory Rate 16 10/20/2023 7:18 AM HEAVY EQUIPMENT PLUMBING SUPERVISOR Oxygen Saturation 98% 11/04/2023 3:10 PM HEAVY EQUIPMENT PLUMBING SUPERVISOR Inhaled Oxygen Concentration - - Weight 111.1 kg (245 lb) 06/28/2024 3:28 PM CDT Height 165.1 cm (5' 5) 10/19/2023 12:22 PM HEAVY EQUIPMENT PLUMBING SUPERVISOR Body Mass Index 40.77 10/19/2023 12:22 PM HEAVY EQUIPMENT PLUMBING SUPERVISOR Plan of Treatment Upcoming Encounters Date Type Department Care Team (Late st Contact Info) Description 12/31/2024 11:00 AM CDT Virtual Visit [facility] [address] [facility] [address] [place] [address] Rocio Mccarthy MD [address] [place] [address] Procedures Procedure Name Priority Date/Time Associated Diagnosis Comments TSH Routine 08/13/2024 11:55 AM HEAVY EQUIPMENT PLUMBING SUPERVISOR Hypothyroidism due to Duane's thyroiditis T4 FREE Routine 08/13/2024 11:55 AM HEAVY EQUIPMENT PLUMBING SUPERVISOR Hypothyroidism due to Duane's thyroiditis T3 FREE Routine 08/13/2024 11:55 AM HEAVY EQUIPMENT PLUMBING SUPERVISOR Hypothyroidism due to Duane's thyroiditis CHLAMYDIA TRACHOMATIS/NEISSERI A GONORRHOEAE BY PCR STAT 05/25/2021 6:45 PM CDT HIV 1&2 ANTIBODY (EXTERNAL RESULT) Routine 12/04/2020 12:00 AM HEAVY EQUIPMENT PLUMBING SUPERVISOR from Last 3 Months or Most Recently Relevant to Health Maintenance Results * (ABNORMAL) TSH (08/13/2024 11:55 AM HEAVY EQUIPMENT PLUMBING SUPERVISOR) TSH 0.19(L) 0.30 - 4.20 uIU/mL 08/13/2024 10:52 PM HEAVY EQUIPMENT PLUMBING SUPERVISOR [facility] Blood BLOOD SPECIMEN / Unknown Venipuncture / Unknown 08/13/2024 11:55 AM HEAVY EQUIPMENT PLUMBING SUPERVISOR 08/13/2024 11:55 AM HEAVY EQUIPMENT PLUMBING SUPERVISOR us Rocio Mccarthy MD LAB - BLOOD ORDERABLES Fi nal Result [facility] [address] [facility], [address] [phone] * T4 free (08/13/2024 11:55 AM HEAVY EQUIPMENT PLUMBING SUPERVISOR) Free T4 1.50 0.90 - 1.70 ng/dL 08/13/2024 10:52 PM HEAVY EQUIPMENT PLUMBING SUPERVISOR [facility] Blood BLOOD SPECIMEN / Unknown Venipuncture / Unknown 08/13/2024 11:55 AM HEAVY EQUIPMENT PLUMBING SUPERVISOR 08/13/2024 11:55 AM HEAVY EQUIPMENT PLUMBING SUPERVISOR us Rocio Mccarthy MD LAB - BLOOD ORDERABLES Fi nal Result [facility] [address] [facility], [address] [phone] * T3 Free (08/13/2024 11:55 AM HEAVY EQUIPMENT PLUMBING SUPERVISOR) T3 Free 3.5 2.0 - 4.4 pg/mL 08/13/2024 10:52 PM HEAVY EQUIPMENT PLUMBING SUPERVISOR [facility] Blood BLOOD SPECIMEN / Unknown Venipuncture / Unknown 08/13/2024 11:55 AM HEAVY EQUIPMENT PLUMBING SUPERVISOR 08/13/2024 11:55 AM HEAVY EQUIPMENT PLUMBING SUPERVISOR us Rocio Mccarthy MD LAB - BLOOD ORDERABLES Fi nal Result [facility] [address] [facility], [address] [phone] * Chlamydia trachomatis/Neisseria gonorrhoeae by PCR (05/25/2021 6:45 PM CDT) Chlamydia Trachomatis Negative Negative 05/26/2021 11:22 AM CDT [facility] Comment: Negative for C. trachomatis rRNA by napkin machine operator mediated amplification. A negative result by napkin machine operator mediated amplification does not preclude the presence of infection because results are dependent on proper and adequate collection, absence of inhibitors and sufficient rRNA to be detected. Neisseria gonorrhoeae Negative Negative 05/26/2021 11:22 AM CDT [facility] Comment:Negative for N. gono rrhoeae rRNA by napkin machine operator mediated amplification. A negative result by napkin machine operator mediated amplification does not preclude the presence of C. trachomatis infection because results are dependent on proper and adequate collection, absence of inhibitors and sufficient rRNA to be detected. Swab CERVIX UTERI STRUCTURE / Unknown Non-blood Collection / Unknown 05/25/2021 6:45 PM CDT 05/25/2021 7:17 PM CDT Jaimie Clinton MD LAB - MICRO GENERAL ORD ERABLES Final Result [facility] Infectious Diseases Diagnostic Lab (IDDL) [address] [place] [address], [address] [place] [address], [facility] [phone] * HIV-1 Antibody (External Result) (12/04/2020 12:00 AM HEAVY EQUIPMENT PLUMBING SUPERVISOR) HIV 1&2 Antibody (External) Negative Nonreactive EXTERNAL LAB 12/04/2020 Patient Reported LAB - HIM EXTERNAL RESULT Final Result EXTERNAL LAB External Lab from Last 3 Months or Most Recently Relevant to Health Maintenance Insurance [facility] PMAP c/o NEAL Dum[place] [id number] Advance Directives For more information, please contact: [phone] * Full Code (Latest Code Status on [...] patie nt/ legal decision maker Care Teams Crusher Supervisor Relationship Specialty Start Date End Date Sammi Guadarramaher PCP - General 12/17/19 Rocio Mccarthy MD [address] [facility] 200 [place] [address] Assigned Endocrinology Provider 04/24/22 Erica Tristan MD [address] [facility] 400 [place] [address] Assigned OBGYN Provider 08/06/23
--- OUTSIDE RECORDS SUMMARY | 2024-11-10 11:04 | XMS_ITS | Encounter Summary ---
Author Organization [place] Address [address] [place] [address]. [place] [address] Care Team Providers Care Honey Liquefier Name Role Phone Billie Guadarrama Primary Care Provider [phone] Rocio Mccarthy MD Unavailable Anthony Shaffre MD Unavailable [phone] Rocio Mccarthy MD Unavailable Erica Tristan MD Unavailable [phone] Encounter Details Date Type Department Care Team (Late st Contact Info) Description 08/01/2020 MyC Medical Advice [facility] [address] [place] [address] Rocio Mccarthy MD [address] [place] [address] Social History Tobacco Use Types [...] Sex Assigned at Female 10/05/2020 9:54 PM BOARD SETTER Legal Sex Female 4:15 AM BOARD SETTER Gender Identity Female 10/05/2020 9:54 PM BOARD SETTER Sexual Orientation Straight 10/05/2020 9: 54 PM BOARD SETTER documented as of this encounter Miscellaneous Notes * Telephone Encounter - Angelic Cavazos RN - 08/01/2020 1:21 PM CDT Please see Benkyo Playerhart message, does patient need to see derm? Please advise, Thank you. documented in this encounter Plan of Treatment Upcoming Encounters Date Type Department Care Team (Late st Contact Info) Description 12/31/2024 11:00 AM CDT Virtual Visit [facility] [address] [facility] [address] [place] [phone] Rocio Mccarthy MD [address] [place] [address] 200 [place], [place] [address] documented as of this encounter Visit Diagnoses Not on filedocumented in this encounter Care Teams Honey Liquefier Relationship Specialty Start Date End Date Billie Guadarrama PCP - General 12/17/19 Rocio Mccarthy MD [address] [address] [place], [place] [address] Assigned Endocrinology Provider 08/01/20 11/28/21 Anthony Shaffer MD [address] [address] [place], [place] [address] Assigned OBGYN Provider 05/10/21 Rocio Mccarthy MD [address] 200 [place], [place] [address] Assigned Endocrinology Provider 04/24/22 Erica Tristan MD [address] [place] [address] Assigned OBGYN Provider 08/06/23 documented as of this encounter
--- OUTSIDE RECORDS SUMMARY | 2024-11-10 11:04 | XMS_ITS | Encounter Summary ---
Author Organization [place] Address [address] [place] [address] Care Team Providers Care Pug Mill Operator Name Role Phone Billie Guadarrama Primary Care Provider [phone] Rocio Mccarthy MD Unavailable [phone] Erica Tristan MD Unavailable [phone] Encounter Details Date Type Department Care Team (Late st Contact Info) Description 10/28/2023 [facility] Medical Advice [facility] [place] [address] [place], [place] [address] Lisa Larose, RN Social History Tobacco Use [...] Assigned at Female 10/05/2020 9:54 PM FIELD OPERATIONS SUPERVISOR Legal Sex Female 4:15 AM FIELD OPERATIONS SUPERVISOR Gender Identity Female 10/05/2020 9:54 PM FIELD OPERATIONS SUPERVISOR Sexual Orientation Straight 10/05/2020 9: 54 PM FIELD OPERATIONS SUPERVISOR documented as of this encounter Plan of Treatment Upcoming Encounters Date Type Department Care Team (Late st Contact Info) Description 12/31/2024 11:00 AM CDT Virtual Visit [facility] [address] [place] [address] Rocio Mccarthy MD [address] [place] [address] documented as of this encounter Visit Diagnoses Not on filedocumented in this encounter Additional Health Concerns Assessment Noted Time PHQ-9 Depression Total Score: 11 023 10:04 AM CDT documented as of this encounter Care Teams Pug Mill Operator Relationship Specialty Start Date End Date Billie Guadarrama PCP - General 12/17/19 Rocio Mccarthy MD [address] [place] [address] Assigned Endocrinology Provider 04/24/22 Erica Tristan MD [address] [facility] 400 [place] [address] Assigned OBGYN Provider 08/06/23 documented as of this encounter
--- OUTSIDE RECORDS SUMMARY | 2024-11-10 11:04 | XMS_ITS | Encounter Summary ---
Author Organization [place] Address [address] [place] [address]. [place] [address] Care Team Providers Care Hospital Cook Name Role Phone Billie Guadarrama Primary Care Provider Rocio Mccarthy MD Unavailable [phone] Anthony Shaffer MD Unavailable [phone] Rocio Mccarthy MD Unavailable Erica Tristan MD Unavailable [phone] Encounter Details Date Type Department Care Team (Latest Contact Info) Description 11/09/2021 MyC Medical Advice [facility] [address] [facility] [address] [place] [address] Rocio Mccarthy MD [address] [place] [address] Hypothyroidism due to Duane's thyroiditis [...] Sex Assigned at Female 10/05/2020 9:54 PM ENROLLMENT MANAGEMENT VICE PRESIDENT Legal Sex Female 4:15 AM ENROLLMENT MANAGEMENT VICE PRESIDENT Gender Identity Female 10/05/2020 9:54 PM ENROLLMENT MANAGEMENT VICE PRESIDENT Sexual Orientation Straight 10/05/2020 9: 54 PM ENROLLMENT MANAGEMENT VICE PRESIDENT documented as of this encounter Plan of Treatment Upcoming Encounters Date Type Department Care Team (Late st Contact Info) Description 12/31/2024 11:00 AM CDT Virtual Visit [facility] [address] [facility] [address] [place] [address] Rocio Mccarthy MD [address] [place] [address] documented as of this encounter Results * (ABNORMAL) T3 Free (11/18/2021 12:41 PM ENROLLMENT MANAGEMENT VICE PRESIDENT) T3 Free 1.5(L) 2.3 - 4.2 pg/mL 11/18/2021 6:34 PM ENROLLMENT MANAGEMENT VICE PRESIDENT [facility] Blood VENOUS BLOOD / Unknown Venipuncture / Unknown 11/18/2021 12:41 PM ENROLLMENT MANAGEMENT VICE PRESIDENT 11/18/2021 12:41 PM ENROLLMENT MANAGEMENT VICE PRESIDENT Rocio Mccarthy MD LAB - BLOOD ORDERABLES Fi nal Result [facility] [place] [facility] [address] [place] [address], [address] [address], [facility] [phone] * (ABNORMAL) T4 free (11/18/2021 12:41 PM ENROLLMENT MANAGEMENT VICE PRESIDENT) Free T4 0.64(L) 0.76 - 1.46 ng/dL 11/18/2021 7:16 PM ENROLLMENT MANAGEMENT VICE PRESIDENT LABORATORY Blood VENOUS BLOOD / Unknown Venipuncture / Unknown 11/18/2021 12:41 PM ENROLLMENT MANAGEMENT VICE PRESIDENT 11/18/2021 12:41 PM ENROLLMENT MANAGEMENT VICE PRESIDENT Rocio Mccarthy MD LAB - BLOOD ORDERABLES Fi nal Result [facility] [address] [place] [address] Lab (no room number, 1st floor of [facility]) [place] [address], [facility] [phone] * (ABNORMAL) TSH (11/18/2021 12:41 PM ENROLLMENT MANAGEMENT VICE PRESIDENT) Pathologist [facility] TSH 104.91(H) 0.40 - 4.00 mU/L 11/18/2021 8:05 PM ENROLLMENT MANAGEMENT VICE PRESIDENT LABORATORY Blood VENOUS BLOOD / Unknown Venipuncture / Unknown 11/18/2021 12:41 PM ENROLLMENT MANAGEMENT VICE PRESIDENT 11/18/2021 12:41 PM ENROLLMENT MANAGEMENT VICE PRESIDENT Rocio Mccarthy MD LAB - BLOOD ORDERABLES Fi nal Result LABORATORY [facility] [address] [place] [address] Lab (no room number, 1st floor of clinic) [place] [address], [facility] [phone] * Thyroglobulin and Antibody Reflex (11/18/2021 12:41 PM ENROLLMENT MANAGEMENT VICE PRESIDENT) Pathologist [facility] Thyroglobulin Antibody <20 <40 IU/mL 11/19/2021 1:39 PM ENROLLMENT MANAGEMENT VICE PRESIDENT [facility]END O Blood VENOUS BLOOD / Unknown Venipuncture / Unknown 11/18/2021 12:41 PM ENROLLMENT MANAGEMENT VICE PRESIDENT 11/18/2021 12:41 PM ENROLLMENT MANAGEMENT VICE PRESIDENT Rocio Mccarthy MD LAB - BLOOD ORDERABLES Fi nal Result [facility]PROT/ENDO [facility]/Prot/Endo [address] [facility] [address] [facility] [address], [address] [place] [address], [facility] [phone] * T3 reverse (11/18/2021 12:41 PM ENROLLMENT MANAGEMENT VICE PRESIDENT) Pathologist [facility] T3, Reverse ng/dL 10.3 9.0 - 27.0 ng/dL 11/23/2021 4:48 PM ENROLLMENT MANAGEMENT VICE PRESIDENT [facility] Comment: INTERPRETIVE INFORMATION: Triiodothyronine, Reverse - LC-MS/MS This test was developed and its performance characteristics determined by [facility]. It has not been cleared or approved by the [place] Food and Drug Administration. This test was performed in a CLIA certified laboratory and is intended for clinical purposes. Performed By: [facility] [address] [place] [address] Concrete Finishing Machine Operator: Lida Parrish MD Blood VENOUS BLOOD / Unknown Venipuncture / Unknown 11/18/2021 12:41 PM ENROLLMENT MANAGEMENT VICE PRESIDENT 11/18/2021 12:41 PM ENROLLMENT MANAGEMENT VICE PRESIDENT Rocio Mccarthy MD LAB - BLOOD ORDERABLES Fi nal Result [facility] [address] [place] [address], [facility] [phone] documented in this encounter Visit Diagnoses Diagnosis Hypothyroidism due to Duane's thyroiditis- Primary documented in this encounter Care Teams Hospital Cook Relationship Specialty Start Date End Date Billie Guadarrama PCP - General 12/17/19 Rocio Mccarthy MD [address] [address] [place] [address] Assigned Endocrinology Provider 08/01/20 11/28/21 Anthony Shaffer MD [address] [place], [place] [address] Assigned OBGYN Provider 05/10/21 Rocio Mccarthy MD [address] [place] [address] Assigned Endocrinology Provider 04/24/22 Erica Tristan MD [address] [place] [address] Assigned OBGYN Provider 08/06/23 documented as of this encounter
--- OUTSIDE RECORDS SUMMARY | 2024-11-10 11:04 | XMS_ITS | Encounter Summary ---
Author Organization [place] Address [address] [place] [address]. [place] [address] Care Team Providers Care Lump Maker Name Role Phone Billie Guadarrama Primary Care Provider [phone] Rocio Mccarthy MD Unavailable [phone] Erica Tristan MD Unavailable [phone] Encounter Details Date Type Department Care Team (Late st Contact Info) Description 03/23/2023 MyC Medical Advice [facility] [address] [facility] [address] [place] [address] Rocio Mccarthy MD [address] [place] [address] Social History Tobacco Use Types [...] Sex Assigned at Female 10/05/2020 9:54 PM JOURNEYMAN PIPE FITTER Legal Sex Female 4:15 AM JOURNEYMAN PIPE FITTER Gender Identity Female 10/05/2020 9:54 PM JOURNEYMAN PIPE FITTER Sexual Orientation Straight 10/05/2020 9: 54 PM JOURNEYMAN PIPE FITTER documented as of this encounter Miscellaneous Notes [...] Virtual Visit [facility] [address] [facility] [address] [place] [address] Rocio Mccarthy MD [address] [place] [address] documented as of this encounter Visit Diagnoses Not on filedocumented in this encounter Care Teams Lump Maker Relationship Specialty Start Date End Date Billie Guadarrama PCP - General 12/17/19 Rocio Mccarthy MD [address] [place] [address] Assigned Endocrinology Provider 04/24/22 Erica Tristan MD [address] [place], [place] [address] Assigned OBGYN Provider 08/06/23 documented as of this encounter
--- OUTSIDE RECORDS SUMMARY | 2024-11-10 11:04 | XMS_ITS | Encounter Summary ---
Author Organization [place] Address [address] [place] [address] Care Team Providers Care Superintendent Name Role Phone Billie Guadarrama Primary Care Provider [phone] Rocio Mccarthy MD Unavailable [phone] Erica Tristan MD Unavailable [phone] Reason for Referral * Diagnostic Imaging Ultrasound (Routine) - Closed Specialty Diagnoses / Procedures Referred By Emily douglas Referred To Contact 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 Procedures US Head Neck Soft Tissue Rocio Mccarthy MD [address] 200 [place] [address] Phone: tel: fax: Referral ID Status Reason Start Date Expiration Date Visits Re quested Visits Authorized [id number] Closed 06/03/2022 06/03/2023 1 1 Reason for Visit * Reason Onset Date Comments Call Back 06/01/2022 Encounter Details Date Type Department Care Team (Late st Contact Info) Description 06/01/2022 Telephone [facility] [address] [place] [address] Rocio Mccarthy MD [address] [facility] 200 [place] [address] [phone] (work) Call Back Social History Tobacco Use [...] Sex Assigned at Female 10/05/2020 9:54 PM QA TESTER Legal Sex Female 4:15 AM QA TESTER Gender Identity Female 10/05/2020 9:54 PM QA TESTER Sexual Orientation Straight 10/05/2020 9: 54 PM QA TESTER documented as of this encounter Miscellaneous Notes [...] Sharmin Peacock - 06/01/2022 10:21 AM CDT [facility] Call Center Phone Message May a detailed [...] Description 12/31/2024 11:00 AM CDT Virtual Visit [facility] [address] [place] [address] Rocio Mccarthy MD [address] [place], [place] [address] documented as of this encounter Results * [...] thyroiditis. 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
--- OUTSIDE RECORDS SUMMARY | 2024-11-10 11:04 | XMS_ITS | Encounter Summary ---
Author Organization [place] Address [address] [place] [address]. [place] [address] Care Team Providers Care Picking Supervisor Name Role Phone Billie Guadarrama Primary Care Provider Rocio Mccarthy MD Unavailable [phone] Erica Tristan MD Unavailable [phone] Encounter Details Date Type Department Care Team (Late st Contact Info) Description 02/14/2024 MyC Medical Advice [facility] [address] [facility] [address] [place] [address] Rocio Mccarthy MD [address] [place] [address] Social History Tobacco Use Types [...] Sex Assigned at Female 10/05/2020 9:54 PM PHARMACEUTICAL PLANT OPERATOR Legal Sex Female 4:15 AM PHARMACEUTICAL PLANT OPERATOR Gender Identity Female 10/05/2020 9:54 PM PHARMACEUTICAL PLANT OPERATOR Sexual Orientation Straight 10/05/2020 9: 54 PM PHARMACEUTICAL PLANT OPERATOR documented as of this encounter Plan of Treatment Upcoming Encounters Date Type Department Care Team (Late st Contact Info) Description 12/31/2024 11:00 AM CDT Virtual Visit [facility] [address] [facility] [address] [place] [address] Rocio Mccarthy MD [address] [place] [address] documented as of this encounter Visit Diagnoses Not on filedocumented in this encounter Additional Health Concerns Assessment Noted Time PHQ-9 Depression Total Score: 11 023 10:04 AM CDT documented as of this encounter Care Teams Picking Supervisor Relationship Specialty Start Date End Date Billie Guadarrama PCP - General 12/17/19 Rocio Mccarthy MD [address] [place] [address] Assigned Endocrinology Provider 04/24/22 Erica Tristan MD [address] [address] [place], [place] [address] Assigned OBGYN Provider 08/06/23 documented as of this encounter
--- OUTSIDE RECORDS SUMMARY | 2024-11-10 11:04 | XMS_ITS | Clinical Summary ---
Author Organization [facility] Address [address] [place] [address] Care Team Providers Care Grocery Checker Name Role Phone Billie Guadarrama Primary Care Provider Rocio Mccarthy MD Unavailable [phone] Erica Tristan MD Unavailable [phone] Allergies Active Allergy Reactions Criticality Noted [...] Care Team Description 09/19/2024 MyC Medical Advice [facility] [address] [place] [address] Rocio Mccarthy MD 08/17/2024 MyC Medical Advice [facility] [address] [facility] [address] [place] [address] Rocio Mccarthy MD 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) 08/13/2024 12:00 PM HAND GRINDER Lab [facility] [address] [facility] [facility] [address] [place] [address] 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 08/13/2024 Travel 08/10/2024 Documentation Only [facility] [address] [facility] [address] [place] [address] Rocio Mccarthy MD from Last 3 Months Immunizations Name Administration Dates Next Due Comvax (HIB/HepB) 01/07/1998,1997 DTAP (<7y) 09/20/2002, 8,1997,1996 DTP-Hib 1997 DTaP, Unspecified 04/06/2010 [id number] Novel Flu 12/23/2009 HEPATITIS A (PEDS 12M-18Y) [...] Sex Assigned at Female 10/05/2020 9:54 PM HAND GRINDER Legal Sex Female 4:15 AM HAND GRINDER Gender Identity Female 10/05/2020 9:54 PM HAND GRINDER Sexual Orientation Straight 10/05/2020 9: 54 PM HAND GRINDER Last Filed Vital Signs Vital Sign Reading Time Taken Comments Blood Pressure 114/57 11/18/2023 10:26 AM HAND GRINDER Pulse 99 11/18/2023 10:26 AM HAND GRINDER Temperature 36.6 C (97.9 F) 10/20/2023 7:18 AM HAND GRINDER Respiratory Rate 16 10/20/2023 7:18 AM HAND GRINDER Oxygen Saturation 98% 11/04/2023 3:10 PM HAND GRINDER Inhaled Oxygen Concentration - - Weight 111.1 kg (245 lb) 06/28/2024 3:28 PM CDT Height 165.1 cm (5' 5) 10/19/2023 12:22 PM HAND GRINDER Body Mass Index 40.77 10/19/2023 12:22 PM HAND GRINDER Plan of Treatment Upcoming Encounters Date Type Department Care Team (Late st Contact Info) Description 12/31/2024 11:00 AM CDT Virtual Visit [facility] [address] [facility] [address] [place] [address] Rocio Mccarthy MD [address] [place] [address] Health Maintenance Due Date Last [...] Diagnosis Comments TSH Routine 08/13/2024 11:55 AM HAND GRINDER 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 T4 FREE Routine 08/13/2024 11:55 AM HAND GRINDER 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 T3 FREE Routine 08/13/2024 11:55 AM HAND GRINDER 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 CHLAMYDIA TRACHOMATIS/NEISSERI A GONORRHOEAE BY PCR STAT 05/25/2021 6:45 PM CDT HIV 1&2 ANTIBODY (EXTERNAL RESULT) Routine 12/04/2020 12:00 AM HAND GRINDER from Last 3 Months or Most Recently Relevant to Health Maintenance Results * (ABNORMAL) TSH (08/13/2024 11:55 AM HAND GRINDER) TSH 0.19(L) 0.30 - 4.20 uIU/mL 08/13/2024 10:52 PM HAND GRINDER [facility] Blood BLOOD SPECIMEN / Unknown Venipuncture / Unknown 08/13/2024 11:55 AM HAND GRINDER 08/13/2024 11:55 AM HAND GRINDER us Rocio Mccarthy MD LAB - BLOOD ORDERABLES Fi nal Result [facility] [place] [facility] [address] [facility], [address] * T4 free (08/13/2024 11:55 AM HAND GRINDER) Free T4 1.50 0.90 - 1.70 ng/dL 08/13/2024 10:52 PM HAND GRINDER [facility] Blood BLOOD SPECIMEN / Unknown Venipuncture / Unknown 08/13/2024 11:55 AM HAND GRINDER 08/13/2024 11:55 AM HAND GRINDER us Rocio Mccarthy MD LAB - BLOOD ORDERABLES Fi nal Result [facility] Lab [address] [facility], [address] * T3 Free (08/13/2024 11:55 AM HAND GRINDER) T3 Free 3.5 2.0 - 4.4 pg/mL 08/13/2024 10:52 PM HAND GRINDER [facility] Blood BLOOD SPECIMEN / Unknown Venipuncture / Unknown 08/13/2024 11:55 AM HAND GRINDER 08/13/2024 11:55 AM HAND GRINDER us Rocio Mccarthy MD LAB - BLOOD ORDERABLES Fi nal Result [facility] [place] [facility] [address] [facility], [address] * Chlamydia trachomatis/Neisseria gonorrhoeae by PCR (05/25/2021 6:45 PM CDT) Chlamydia Trachomatis Negative Negative 05/26/2021 11:22 AM CDT [facility] Comment: Negative for C. trachomatis rRNA by php wordpress developer mediated amplification. A negative result by php wordpress developer mediated amplification does not preclude the presence of infection because results are dependent on proper and adequate collection, absence of inhibitors and sufficient rRNA to be detected. Neisseria gonorrhoeae Negative Negative 05/26/2021 11:22 AM CDT [facility] Comment:Negative for N. gono rrhoeae rRNA by php wordpress developer mediated amplification. A negative result by php wordpress developer mediated amplification does not preclude the presence of C. trachomatis infection because results are dependent on proper and adequate collection, absence of inhibitors and sufficient rRNA to be detected. Swab CERVIX UTERI STRUCTURE / Unknown Non-blood Collection / Unknown 05/25/2021 6:45 PM CDT 05/25/2021 7:17 PM CDT Jaimie Clinton MD LAB - MICRO GENERAL ORD ERABLES Final Result [facility] Diagnostic [facility] (IDDL) [address] [place] [address], [address] [place] [address], [facility] [phone] * HIV-1 Antibody (External Result) (12/04/2020 12:00 AM HAND GRINDER) HIV 1&2 Antibody (External) Negative Nonreactive EXTERNAL LAB 12/04/2020 us Patient Reported LAB - HIM EXTERNAL RESULT Final Result EXTERNAL LAB External Lab from Last 3 Months or Most Recently Relevant to Health Maintenance Insurance [facility] [employer] PMAP c/[place] [address] Advance Directives For more information, please contact: [phone] * Full Code (Latest Code Status on [...] patie nt/ legal decision maker Care Teams Grocery Checker Relationship Specialty Start Date End Date Sammi Guadarramaher PCP - General 12/17/19 Rocio Mccarthy MD [address] [place], [place] [address] Assigned Endocrinology Provider 04/24/22 Erica Tristan MD [address] [place], [place] [address] Assigned OBGYN Provider 08/06/23
--- OUTSIDE RECORDS SUMMARY | 2024-11-10 11:04 | XMS_ITS | Encounter Summary ---
Author Organization [facility] Address [address] [place] [address]. [place] [address] Care Team Providers Care Organic Search Lead Name Role Phone Billie Guadarrama Primary Care Provider [phone] Rocio Mccarthy MD Unavailable [phone] Erica Tristan MD Unavailable [phone] Encounter Details Date Type Department Care Team (Late st Contact Info) Description 08/24/2023 MyC Medical Advice [facility] [address] [facility] [address] [place] [address] Rocio Mccarthy MD [address] [place] [address] Social History Tobacco Use [...] Sex Assigned at Female 10/05/2020 9:54 PM ASPHALT COATER Legal Sex Female 4:15 AM ASPHALT COATER Gender Identity Female 10/05/2020 9:54 PM ASPHALT COATER Sexual Orientation Straight 10/05/2020 9: 54 PM ASPHALT COATER documented as of this encounter Miscellaneous Notes * Telephone Encounter - Rocio Mccarthy MD - 08/26/2023 10:48 AM ASPHALT COATER Latest Ref Rng 08/23/2023 1:26 PM ENDO [...] 1 week after that to discuss results. ALT COATER * Telephone Encounter - Rayma Lugo RN - 08/24/2023 11:51 AM CST In response to lab comments 08/23/23: Thyroid labs are in acceptable range. How many weeks are you so far? How are you feeling? ALT COATER documented in this encounter Plan of Treatment Upcoming Encounters Date Type Department Care Team (Late st Contact Info) Description 12/31/2024 11:00 AM CDT Virtual Visit [facility] [address] [place] [address] Rocio Mccarthy MD [address] [place], [place] [address] documented as of this encounter Visit Diagnoses Not on filedocumented in this encounter Additional Health Concerns Assessment Noted Time PHQ-9 Depression Total Score: 11 023 10:04 AM CDT documented as of this encounter Care Teams Organic Search Lead Relationship Specialty Start Date End Date Billie Guadarrama PCP - General 12/17/19 Rocio Mccarthy MD [address] [place], [place] [address] Assigned Endocrinology Provider 04/24/22 Erica Tristan MD [address] [place], [place] [address] Assigned OBGYN Provider 08/06/23 documented as of this encounter
--- OUTSIDE RECORDS SUMMARY | 2024-11-10 11:04 | XMS_ITS | Continuity of Care Document ---
Author Organization [facility] Address [address] [place] [address] Phone Care Team Providers Care Conduit Cleaner Name Role Phone Juan Rodriguez DO Unavailable [...] suspected, a test for HCV RNA(test code 06203) is suggested. For additional information please refer tohttp://education.YingYang/faq/FAQ22v 1(This link is being provided for informational/educational [...] New [facility] , [address], [place], [address], [place] tel:[phone] [facility] , Musculoskele desiree pain (chief complaint) Myalgia, unspecified sitePain in unspecified lower legTingling skinOther low back painDry eye syndrome of bilateral lacrimal glandsDiplop iaGoiter 3 Michael Martinez. [facility] [address], [place], [address], [place]. tel:[phone] Attending Physician: Billie Guadarrama, [facility] [address] , [place], [address]. tel:[phone] ring Provider: Juan Woods, [facility] [address], [place], [address]. tel:[phone] Family History Family Member Type Diagnosis Age At Onset No Information Payers Payer name Insurance type Covered constitution party ID Authoriza tijoseph(s) Pepe BRENNAN [id number] Social History Type Description Quantity Date Captured [...] Mental Status Date Cognitive Assessment Orientation - Ookala ed to time, place, person, situation. Patient Care Teams Name Effective Dates (start - stop) Status Members No Information
--- OUTSIDE RECORDS SUMMARY | 2024-11-10 11:04 | XMS_ITS | Continuity of Care Document ---
Author Organization [facility] Address [address] [place] [address] Phone Care Team Providers Care Carbon Brusher Assembler Name Role Phone Delisa Castillo CNP Unavailable [...] Diagnoses Date Provider Providers Copied on Encounter [facility], [address] [place], [place], [id number] , [place] tel:[phone] [facility] [place] No Information Darnell Hercules. [address] [place], [place], [id number] , [place]. tel:[phone] OFFICE/OUTPAT IENT VISIT, EST [facility], [address] [place], [place], [id number] , [place] tel:[phone] [facility] [place] Widespread pain (chief complaint) Chronic pain syndromeCervicalgi aFibromyalgiaRadic ulopathy, lumbar region 4 [address] Delisa. [address] [place], [place], [id number] , [place]. tel:[phone] Referring Provider: Billie Guadarrama [facility] [address] [place], [address]. tel:[phone] [facility], [address] [place] [address] [place], [id number] , [place] [phone] [facility] Melissa No Information [address] Delisa. [address] [place] [address] [place], [id number] , [place]. tel:[phone] Referring Provider: Billie Guadarrama [facility] [address] [place], [address]. tel:[phone] OFFICE/OUTPAT IENT VISIT, EST [facility], [address] [place] [address] [place] [place], [place], [id number] , [place] [phone] [facility] Widespread pain (chief complaint) Chronic pain syndromeCervicalgi aLow back pain, unspecifiedFibromy algia 3 [address] Delisa. [address] [place] [place], [place], [id number] , [place]. tel:[phone] Referring Provider: Billie Guadarrama [facility] [address] [place], [address]. tel:[phone] OFFICE VISIT, EST TELEMEDICINE [facility], [address] [place] [address] [place], [place], [id number] , [place] [phone] [facility] Widespread pain (chief complaint) Chronic pain syndromeCervicalgi aLow back pain, unspecifiedFibromy algia [address] Delisa[address] [facility] [place], [place], [id number] , [place]. [phone] Referring Provider: Billie Guadarrama [facility] [address] [place], [address]. tel:[phone] [facility], [address] [place], [id number] , [place] tel:[phone] [facility] [place] No Information [address] [facility] [place], [place], [id number] , [place]. tel:[phone] Referring Provider: Billie Guadarrama [facility] [address] [facility], [place], [address]. tel:[phone] OFFICE/OUTPAT IENT VISIT, NEW [facility], [address] [place], [place], [id number] , [place] tel:[phone] [facility] Melissa Widespread pain (chief complaint) Chronic pain syndromeFibromyalg iaLow back pain, unspecifiedCervica lgiaEncounter for therapeutic drug level monitoring [address] [facility] [place], [place], [id number] , [place]. tel:[phone] Referring Provider: Billie Guadarrama [facility] [address] [facility], [place], [address]. tel:[phone] Family History Family Member Type Diagnosis Age At Onset Father Problem Low back problems Mother Problem Low back problems Payers Payer name Insurance type Covered democrat ID Basil sanjoseph(s) murali [facility] [id number] Social History Type Description Quantity Date Captured Comments Sex Female Smoking Status No Information Chief Complaint And Reason For Visit No Information Reason For Referral Reason For Referral No Information Plan Of Treatment Date Type Action Status Goal Update Social History. Due o n due Goal Review Allergy List. Due on due Goal Medication Reconciliation. D ue on due Goal Weight. Due on d ue Goal Tobacco Use. Due on 024 due Goal Unhealthy drug use screening . Due on due Goal Hepatitis C screening. Due o n due Goal PHQ-9. Due on du e Goal Height. Due on d ue Goal [...] d ue Goal Tobacco Use. Due on due Goal [...] r/t fibromyalgia referred by Dr. Guadarrama through [facility]. Patient describes burning, numbness, tingling, and [...] cannabis and other pain management options through [facility]. No other concerns today. Functional Status Date Functional Assessmen t No Information Instructions Date Instruction Additional Infor mation No Information Assessments Type Assessment Date No Information Patient Care Teams Name Effective Dates (start - stop) Status Members No Information
--- OUTSIDE RECORDS SUMMARY | 2024-11-10 11:04 | XMS_ITS | Encounter Summary ---
Author Organization [facility] Address [address] [place] [address]. [place] [address] Care Team Providers Care Flat Surfacer Jewel Name Role Phone Billie Guadarrama Primary Care Provider [phone] Rocio Mccarthy MD Unavailable [phone] Erica Tristan MD Unavailable [phone] Encounter Details Date Type Department Care Team (Latest Contact Info) Description 05/30/2023 MyC Medical Advice [facility] [address] [place] [address] Rocio Mccarthy MD [address] [place] [address] Hypothyroidism due to Duane's thyroiditis [...] Sex Assigned at Female 10/05/2020 9:54 PM FILER REPAIRER Legal Sex Female 4:15 AM FILER REPAIRER Gender Identity Female 10/05/2020 9:54 PM FILER REPAIRER Sexual Orientation Straight 10/05/2020 9: 54 PM FILER REPAIRER documented as of this encounter Miscellaneous Notes * Telephone Encounter - Chelita Harrell CMA - 06/08/2023 9:08 AM CDT She can only do Tuesdays. I put her down for 06/21 at 10:30 for a video visit. Maritza Harrell CMA [facility] [phone] * Telephone Encounter - Chelita Harrell CMA - 06/08/2023 8:50 AM CDT Message sent via [employer]. Maritza Harrell CMA [facility] [phone] * Telephone Encounter - Nahed Woodruff - [...] Description 12/31/2024 11:00 AM CDT Virtual Visit [facility] [address] [place] [address] Rocio Mccarthy MD [address] [place] [address] documented as of this encounter Results * T3, Free (06/07/2023 3:33 PM CDT) T3 Free 2.4 2.0 - 4.4 pg/mL 06/07/2023 8:40 PM CDT [facility] Blood BLOOD SPECIMEN / Unknown Venipuncture / Unknown 06/07/2023 3:33 PM CDT 06/07/2023 3:33 PM CDT Rocio Mccarthy MD LAB - BLOOD ORDERABLES Fi nal Result [facility] [address] [facility] [place] [address] [phone] documented in this encounter Visit Diagnoses Diagnosis Hypothyroidism due to Duane's thyroiditis- Primary documented in this encounter Care Teams Flat Surfacer Jewel Relationship Specialty Start Date End Date Billie Guadarrama PCP - General 12/17/19 Rocio Mccarthy MD [address] [place] [address] Assigned Endocrinology Provider 04/24/22 Erica Tristan MD [address] [place], [place] [address] Assigned OBGYN Provider 08/06/23 documented as of this encounter
--- OUTSIDE RECORDS SUMMARY | 2024-11-10 11:04 | XMS_ITS | Encounter Summary ---
Author Organization [facility] Address [address] [place] [address]. [place] [address] Care Team Providers Care Insole Stiffener Name Role Phone Billie Guadarrama Primary Care Provider [phone] Anthony Shaffer MD Unavailable [phone] Rocio Mccarthy MD Unavailable [phone] Erica Tristan MD Unavailable [phone] Encounter Details Date Type Department Care Team (Late st Contact Info) Description 01/06/2022 MyC Medical Advice [address] [phone] Jina Harrell V, RN Social History Tobacco [...] Sex Assigned at Female 10/05/2020 9:54 PM COOKER PROCESS CHEESE Legal Sex Female 4:15 AM COOKER PROCESS CHEESE Gender Identity Female 10/05/2020 9:54 PM COOKER PROCESS CHEESE Sexual Orientation Straight 10/05/2020 9: 54 PM COOKER PROCESS CHEESE COVID-19 Exposure Response Date Recorded In the [...] Virtual Visit [facility] [address] [place] [address] Rocio Mccarthy MD [address] [place] [address] documented as of this encounter Visit Diagnoses Not on filedocumented in this encounter Care Teams Insole Stiffener Relationship Specialty Start Date End Date Billie Guadarrama PCP - General 12/17/19 Anthony Shaffer MD [address] [place], [place] [address] Assigned OBGYN Provider 05/10/21 Rocio Mccarthy MD [address] [place] [address] Assigned Endocrinology Provider 04/24/22 Erica Tristan MD [address] [place], [place] [address] Assigned OBGYN Provider 08/06/23 documented as of this encounter
--- OUTSIDE RECORDS SUMMARY | 2024-11-10 11:04 | XMS_ITS | Encounter Summary ---
Author Organization [facility] Address [address] [place] [address]. [place] [address] Care Team Providers Care Art Librarian Name Role Phone Billie Guadarrama Primary Care Provider Rocio Mccarthy MD Unavailable [phone] Erica Tristan MD Unavailable [phone] Encounter Details Date Type Department Care Team (Latest Contact Info) Description 06/14/2023 MyC Medical Advice [facility] [address] [facility] [address] [place] [address] Rocio Mccarthy MD [address] [place] [address] Hypothyroidism due to Duane's thyroiditis [...] Sex Assigned at Female 10/05/2020 9:54 PM TRANSPORTATION SALES CONSULTANT Legal Sex Female 4:15 AM TRANSPORTATION SALES CONSULTANT Gender Identity Female 10/05/2020 9:54 PM TRANSPORTATION SALES CONSULTANT Sexual Orientation Straight 10/05/2020 9: 54 PM TRANSPORTATION SALES CONSULTANT COVID-19 Exposure Response Date Recorded In [...] Description 12/31/2024 11:00 AM CDT Virtual Visit [facility] [address] [facility] [address] [place] [address] Rocio Mccarthy MD [address] [place] [address] documented as of this encounter Visit Diagnoses Diagnosis Hypothyroidism due to Duane's thyroiditis- Primary documented in this encounter Care Teams Art Librarian Relationship Specialty Start Date End Date Billie Guadarrama PCP - General 12/17/19 Rocio Mccarthy MD [address] [place] [address] Assigned Endocrinology Provider 04/24/22 Erica Tristan MD [address] [place], [place] [address] Assigned OBGYN Provider 08/06/23 documented as of this encounter
--- OUTSIDE RECORDS SUMMARY | 2024-11-10 11:04 | XMS_ITS | Clinical Summary ---
Author Organization [facility] Address [place], [place] [address] Care Team Providers Care Biology Faculty Member Name Role Phone Vasquez Ridley MD Unavailable [phone] Sanjeev Brar MD Unavailable [phone] Billie Guadarrama DO Primary Care Provider [phone] Allergies Active Allergy Reactions Criticality Noted Date [...] Department Care Team Description 10/11/2024 Orders Only [facility] Scanner 1 scan: (1-Ord) INCOMING RECORDS-MRI, [facility], 10/11/2024 10/11/2024 Orders Only [facility] Scanner 1 scan: (1-Ord) INCOMING RECORDS-LABS, [facility], 10/11/2024 10/11/2024 Orders Only [facility] Scanner 1 scan: (1-Ord) INCOMING RECORDS-LABS, [facility], 10/11/2024 10/11/2024 Orders Only [facility] Scanner 1 scan: (1-Ord) INCOMING RECORDS-LABS, [facility], 10/11/2024 10/11/2024 Orders Only [facility] Scanner 1 scan: ([facility]-Ord[facility] 10/11/2024 10/11/2024 Orders Only [facility] Scanner 1 scan: (1-Ord) INCOMING RECORDS-US, [facility], 10/11/2024 09/25/2024 Orders Only [facility] Scanner 1 scan: (1-Ord) [facility], MR HEAD/BRAIN WO/W CON , 09/25/2024 from [...] on file Legal Sex Female 5:23 AM DOOR PULLER Gender Identity Not on file Sexual Orientation [...] CDT Respiratory Rate 18 10/06/2022 8:41 PM DOOR PULLER Oxygen Saturation 96% 08/02/2024 9:42 AM CDT [...] Comments SCAN CORRESP-LABORATORY RESULTS 10/11/2024 12:00 AM DOOR PULLER SCAN CORRESP-LABORATORY RESULTS 10/11/2024 12:00 AM DOOR PULLER SCAN CORRESP-LABORATORY RESULTS 10/11/2024 12:00 AM DOOR PULLER SCAN CORRESP-LABORATORY RESULTS 10/11/2024 12:00 AM DOOR PULLER SCAN CORRESP-IMAGING 10/11/2024 12:00 AM DOOR PULLER SCAN CORRESP-IMAGING 10/11/2024 12:00 AM DOOR PULLER SCAN-MRI INTERPRETATION 09/25/2024 12:00 AM DOOR PULLER COLONOSCOPY SCREENING Routine 08/06/2024 12:00 AM CDT Adenomatous polyp of colon, unspecified part of colon Screening for colon cancer AGILE BUSINESS ANALYST THIN PREP PAP SCREEN IMAGED Routine 01/24/2024 11:00 AM CDT ACUTE HEPATITIS PANEL Routine 08/31/2016 3:04 PM DOOR PULLER Elevated LFTs from Last 3 Months or Most Recently Relevant to Health Maintenance Results * SCAN CORRESP-LABORATORY RESULTS (10/11/2024 12:00 AM DOOR PULLER) Only the most recent of4 resultswithin the time period is included. us Scanner OTHER Final Result * SCAN CORRESP-IMAGING (10/11/2024 12:00 AM DOOR PULLER) Only the most recent of2 resultswithin the time period is included. Anatomical Region Laterality Modality Other us Scanner OTHER Final Result * SCAN-MRI INTERPRETATION (09/25/2024 12:00 AM DOOR PULLER) Anatomical Region Laterality Modality Other us Scanner OTHER Final Result * COLONOSCOPY SCREENING (08/06/2024 12:00 AM CDT) Billie Guadarrama DO GI PROCEDURE ORD Final Res ult * AGILE BUSINESS ANALYST THIN PREP PAP SCREEN IMAGED (01/24/2024 11:00 AM CDT) Case Report Gynecologic Cytology Report Case: [id number] Authorizing Provider: Marely Vasquez PA-C Collected: 01/24/2024 1100 Ordering Location: [facility] Received: 01/26/2024 1040 First Screen: Hayes Weinstein Specimen: AGILE BUSINESS ANALYST ThinPrep Vial Screening, Cervical 02/08/2024 8:05 AM CDT [facility] INTERPRETATION/ RESULT NEGATIVE FOR INTRAEPITHELIAL LESION OR MALIGNANCY (NIL) (none) 02/08/2024 8:05 AM CDT [facility] IMEN ADEQUACY Satisfactory for evaluation No endocervical component seen 02/08/2024 8:05 AM CDT [facility] HPV REQUEST HPV and PAP 02/08/2024 8:05 AM CDT [facility] Date of LMP 02/08/2024 8:05 AM CDT [facility] EN[facility] LAB[facility]AT[facility] Comment:unk Last Pap Date 12/04/2020 02/08/2024 8:05 AM CDT [facility] Last Pap Result NIL 8:05 AM CDT [facility] Abnormal Pap or Powderly Bx in last 5 years No 02/08/2024 8:05 AM CDT [facility] Menstrual Status 02/08/2024 8:05 AM CDT [facility] Powderly Bx Done Today No 02/08/2024 8:05 AM CDT [facility] Additional Information 02/08/2024 8:05 AM CDT [facility] Comment: Interpreted at [facility] - [address] [place] [address] Automated Review Successful 02/08/2024 8:05 AM CDT [facility] Comment:Specimen processed s uccessfully by automated rn neurosurgical device, ThinPrep Imaging System, [employer] ANCILLARY TESTING AGILE BUSINESS ANALYST HPV Ordered, Please see separate report 02/08/2024 8:05 AM CDT [facility] Note The pap test is a [...] and malignant lesions. 02/08/2024 8:05 AM CDT [facility] Other (Cervical) 01/24/2024 11:00 AM CDT 01/26/2024 10:40 AM CDT Marely Vasquez PA-C PATHOLOGY/CYTOLOGY Final R esult [facility] [address] [place] [address], * ACUTE HEPATITIS PANEL (08/31/2016 3:04 PM DOOR PULLER) HEPATITIS C ANTIBODY Non-Reactive Non-Reactive 08/31/2016 8:15 PM DOOR PULLER [facility] IGM ANTI HAV Non-Reactive Non-Reactive 08/31/20 16 8:15 PM DOOR PULLER [facility] HBSAG Nonreactive Nonreactive 08/31/2016 8:15 PM DOOR PULLER [facility] IGM ANTI HBC Non-Reactive Non-Reactive 08/31/20 16 8:15 PM DOOR PULLER [facility] Blood BLOOD SPECIMEN / Unknown Venipuncture / Unknown 08/31/2016 3:04 PM DOOR PULLER 08/31/2016 3:04 PM DOOR PULLER Narrative [facility] - 08/31/2016 8:15 PM DOOR PULLER Anti-HBc IgM not detected. Does not exclude the possibility of exposure to or infection with HBV. us Billie Guadarrama DO SEND OUTS Final Resu lt [facility] [address] [place] [address], from Last 3 Months or Most Recently Relevant to Health Maintenance Insurance [facility] Care Teams Biology Faculty Member Relationship Specialty Start Date End Date Billie [place] [address] PCP - General Family Practice 06/26/24 Vasquez Ridley MD [address] [place] [address] Rheumatology Rheumatology 10/07/16 Sanjeev Brar MD [address] [place] [address] Internal Medicine 09/28/19
--- OUTSIDE RECORDS SUMMARY | 2024-11-10 11:04 | XMS_ITS | Encounter Summary ---
Author Organization [facility] Address [address] [place] [address]. [place] [address] Care Team Providers Care Assembler Steam And Gas Turbine Name Role Phone Billie Guadarrama Primary Care Provider Rocio Mccarthy MD Unavailable [phone] Anthony Shaffer MD Unavailable [phone] Rocio Mccarthy MD Unavailable [phone] Erica Tristan MD Unavailable [phone] Reason for Visit * Reason Onset Date Comments MyChart Communication 10/05/2020 Encounter Details Date Type Department Care Team (Latest Contact Info) Description 10/05/2020 MyC Medical Advice [facility] [address] [facility] [address] [place] [address] Rocio Mccarthy MD [address] [place] [address] MyChart Communication Social History Tobacco [...] Sex Assigned at Female 10/05/2020 9:54 PM FUNDING COORDINATOR Legal Sex Female 4:15 AM FUNDING COORDINATOR Gender Identity Female 10/05/2020 9:54 PM FUNDING COORDINATOR Sexual Orientation Straight 10/05/2020 9: 54 PM FUNDING COORDINATOR COVID-19 Exposure Response Date Recorded In the last month, have you been in contact with someone who was confirmed or suspected to have Coronavirus / COVID-19? No / Unsure 10/08/2020 8:54 AM FUNDING COORDINATOR documented as of this encounter Miscellaneous Notes * Telephone Encounter - Janis Kendrick, RN - 10/06/2020 3:51 PM CST My chart message sent by patient. My chart message sent to patient. ING COORDINATOR documented in this encounter Plan of Treatment Upcoming Encounters Date Type Department Care Team (Late st Contact Info) Description 12/31/2024 11:00 AM CDT Virtual Visit [facility] [address] [facility] [address] [place] [address] Rocio Mccarthy MD [address] [place] [address] [address] [place], [place] [address] documented as of this encounter Visit Diagnoses Not on filedocumented in this encounter Care Teams Assembler Steam And Gas Turbine Relationship Specialty Start Date End Date Billie Guadarrama PCP - General 12/17/19 Rocio Mccarthy MD [address] [place], [place] [address] Assigned Endocrinology Provider 08/01/20 11/28/21 Anthony Shaffer MD [address] [facility] [address] [place], [place] [address] Assigned OBGYN Provider 05/10/21 Rocio Mccarthy MD [address] [facility] [address] [place] [address] Assigned Endocrinology Provider 04/24/22 Erica Tristan MD [address] [facility] [address] [place] [address] Assigned OBGYN Provider 08/06/23 documented as of this encounter
--- OUTSIDE RECORDS SUMMARY | 2024-11-10 11:04 | XMS_ITS | Encounter Summary ---
Author Organization [facility] Address [address] [place] [address]. [place] [address] Care Team Providers Care Belt Sander Name Role Phone Billie Guadarrama Primary Care Provider [phone] Rocio Mccarthy MD Unavailable [phone] Erica Tristan MD Unavailable [phone] Encounter Details Date Type Department Care Team (Late st Contact Info) Description 05/31/2022 MyC Medical Advice [facility] [address] [facility] [address] [place] [address] Rocio Mccarthy MD [address] [place] [address] Social History Tobacco Use Types [...] Sex Assigned at Female 10/05/2020 9:54 PM OVERNIGHT STOCKER Legal Sex Female 4:15 AM OVERNIGHT STOCKER Gender Identity Female 10/05/2020 9:54 PM OVERNIGHT STOCKER Sexual Orientation Straight 10/05/2020 9: 54 PM OVERNIGHT STOCKER documented as of this encounter Miscellaneous Notes [...] Virtual Visit [facility] [address] [facility] [address] [place] [address] Rocio Mccarthy MD [address] [place], [place] [address] documented as of this encounter Visit Diagnoses Not on filedocumented in this encounter Care Teams Belt Sander Relationship Specialty Start Date End Date Billie Guadarrama PCP - General 12/17/19 Rocio Mccarthy MD [address] [place], [place] [address] Assigned Endocrinology Provider 04/24/22 Erica Tristan MD [address] [place], [place] [address] Assigned OBGYN Provider 08/06/23 documented as of this encounter
--- OUTSIDE RECORDS SUMMARY | 2024-11-10 11:04 | XMS_ITS | Encounter Summary ---
Author Organization [facility] Address [address] [place] [address]. [place] [address] Care Team Providers Care Gas Derrick Operator Name Role Phone Billie Guadarrama Primary Care Provider [phone] Rocio Mccarthy MD Unavailable [phone] Anthony Shaffer MD Unavailable Rocio Mccarthy MD Unavailable [phone] Erica Tristan MD Unavailable [phone] Reason for Visit * Reason Onset Date Comments MyChart Communication 06/12/2020 Encounter Details Date Type Department Care Team (Latest Contact Info) Description 06/12/2020 MyC Medical Advice [facility] [address] [facility] [address] [place] [address] Rocio Mccarthy MD [address] [place] [address] MyChart Communication Social History Tobacco [...] Sex Assigned at Female 10/05/2020 9:54 PM SHOP DIRECTOR Legal Sex Female 4:15 AM SHOP DIRECTOR Gender Identity Female 10/05/2020 9:54 PM SHOP DIRECTOR Sexual Orientation Straight 10/05/2020 9: 54 PM SHOP DIRECTOR COVID-19 Exposure Response Date Recorded In the last month, have you been in contact with someone who was confirmed or suspected to have Coronavirus / COVID-19? No / Unsure 05/29/2020 2:44 PM CDT documented as of this encounter Miscellaneous Notes * Telephone Encounter - Angelic Cavazos RN - 06/12/2020 9:07 AM CDT Please see nextsocial message and advise. Thank you. documented in this encounter Plan of Treatment Upcoming Encounters Date Type Department Care Team (Late st Contact Info) Description 12/31/2024 11:00 AM CDT Virtual Visit [facility] [address] [facility] [address] [place] [address] Rocio Mccarthy MD [address] [place] [address] 200 [place], [place] [address] documented as of this encounter Visit Diagnoses Not on filedocumented in this encounter Care Teams Gas Derrick Operator Relationship Specialty Start Date End Date Billie Guadarrama PCP - General 12/17/19 Rocio Mccarthy MD [address] [place] [address] 200 [place], [place] [address] Assigned Endocrinology Provider 08/01/20 11/28/21 Anthony Shaffer MD [address] [address] [place] [address] Assigned OBGYN Provider 05/10/21 Rocio Mccarthy MD [address] 200 [place] [address] Assigned Endocrinology Provider 04/24/22 Erica Tristan MD [address] [facility] [address] [place] [address] Assigned OBGYN Provider 08/06/23 documented as of this encounter
--- OUTSIDE RECORDS SUMMARY | 2024-11-10 11:04 | XMS_ITS | Encounter Summary ---
Author Organization [facility] Address [address] [place] [address]. 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 [...] Sex Assigned at Female 10/05/2020 9:54 PM PROCESSING LEAD Legal Sex Female 4:15 AM PROCESSING LEAD Gender Identity Female 10/05/2020 9:54 PM PROCESSING LEAD Sexual Orientation Straight 10/05/2020 9: 54 PM PROCESSING LEAD documented as of this encounter Miscellaneous [...] Description 12/31/2024 11:00 AM CDT Virtual Visit [facility] [address] [facility] [address] [place] [address] Rocio Mccarthy MD [address] [place] [address] documented as of this encounter Results * Thyroglobulin and Antibody Reflex (02/13/2024 2:02 PM CDT) Thyroglobulin Antibody <20 <40 IU/mL 02/14/2024 9:14 AM CDT SPECIALTY CORE/PROT/END O Blood BLOOD SPECIMEN / Unknown Venipuncture / Unknown 02/13/2024 2:02 PM CDT 02/13/2024 2:02 PM CDT Rocio Mccarthy MD LAB - BLOOD ORDERABLES Fi nal Result [facility] SPECIALTY CORE/PROT/ENDO Specialty Core/Prot/Endo [address] [facility] [address] [facility], Room 3-[address] * (ABNORMAL) Thyroid peroxidase antibody (02/13/2024 2:02 PM CDT) Thyroid Peroxidase Antibody 927(H) <35 IU/mL 02/14/2024 9:14 AM CDT [facility] SPECIALTY CORE/PROT/ENDO Blood BLOOD SPECIMEN / Unknown Venipuncture / Unknown 02/13/2024 2:02 PM CDT 02/13/2024 2:02 PM CDT Rocio Mccarthy MD LAB - BLOOD ORDERABLES Fi nal Result Performing Organization Address City[facility] Co de Phone Number [facility] SPECIALTY CORE/PROT/ENDO Specialty Core/Prot/Endo [address] [facility], Room [address] * T3 reverse (02/13/2024 2:02 PM CDT) T3, Reverse ng/dL 18.1 9.0 - 27.0 ng/dL 02/16/2024 7:30 AM CDT [employer] Comment: INTERPRETIVE INFORMATION: Triiodothyronine, Reverse - LC-MS/MS This test was developed and its performance characteristics determined by [facility]. It has not been cleared or approved by the US Food and Drug Administration. This test was performed in a CLIA certified laboratory and is intended for clinical purposes. 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
--- OUTSIDE RECORDS SUMMARY | 2024-11-10 11:05 | XMS_ITS | Encounter Summary ---
Author Organization [facility] Address [address] [place] [address]. [place] [address] Care Team Providers Care Administrative Assistant Coordinator Name Role Phone Billie Guadarrama Primary Care Provider Anthony Shaffer MD Unavailable [phone] Rocio Mccarthy MD Unavailable Erica Tristan MD Unavailable [phone] Encounter Details Date Type Department Care Team (Late st Contact Info) Description 03/31/2022 MyC Medical Advice [facility] [address] [facility] [place] [address] Rocio Mccarthy MD [address] [place] [address] Social History Tobacco Use Types [...] Sex Assigned at Female 10/05/2020 9:54 PM EXCELSIOR MACHINE TENDER Legal Sex Female 4:15 AM EXCELSIOR MACHINE TENDER Gender Identity Female 10/05/2020 9:54 PM EXCELSIOR MACHINE TENDER Sexual Orientation Straight 10/05/2020 9: 54 PM EXCELSIOR MACHINE TENDER documented as of this encounter Miscellaneous Notes * Telephone Encounter - Jina Harrell RN - 04/01/2022 8:21 AM CDT Okay to use ANGÉLICA spot documented in this encounter Plan of Treatment Upcoming Encounters Date Type Department Care Team (Late st Contact Info) Description 12/31/2024 11:00 AM CDT Virtual Visit [facility] [address] [facility] [address] [place] [address] Rocio Mccarthy MD [address] [place] [address] documented as of this encounter Visit Diagnoses Not on filedocumented in this encounter Care Teams Administrative Assistant Coordinator Relationship Specialty Start Date End Date Billie Guadarrama PCP - General 12/17/19 Anthony Shaffer MD [address] [place], [place] [address] Assigned OBGYN Provider 05/10/21 Rocio Mccarthy MD [address] [place] [address] Assigned Endocrinology Provider 04/24/22 Erica Tristan MD [address] [place], [place] [address] Assigned OBGYN Provider 08/06/23 documented as of this encounter
--- OUTSIDE RECORDS SUMMARY | 2024-11-10 11:05 | XMS_ITS | Encounter Summary ---
Author Organization [facility] Address [address] [place] [address]. [place] [address] Care Team Providers Care Teletype Mechanic Name Role Phone Billie Guadarrama Primary Care Provider Rocio Mccarthy MD Unavailable Anthony Shaffer MD Unavailable [phone] Rocio Mccarthy MD Unavailable Erica Tristan MD Unavailable [phone] Encounter Details Date Type Department Care Team (Late st Contact Info) Description 06/08/2021 MyC Medical Advice [facility] [address] [facility] [address] [place] [address] Chelita Harrell, [facility] Social History Tobacco Use Types Packs/Day Years [...] Sex Assigned at Female 10/05/2020 9:54 PM KETTLE COORDINATOR Legal Sex Female 4:15 AM KETTLE COORDINATOR Gender Identity Female 10/05/2020 9:54 PM KETTLE COORDINATOR Sexual Orientation Straight 10/05/2020 9: 54 PM KETTLE COORDINATOR COVID-19 Exposure Response Date Recorded In [...] Virtual Visit [facility] [address] [facility] [address] [place] [address] Rocio Mccarthy MD [address] [place] [address] documented as of this encounter Visit Diagnoses Not on filedocumented in this encounter Care Teams Teletype Mechanic Relationship Specialty Start Date End Date Billie Guadarrama PCP - General 12/17/19 Rocio Mccarthy MD [address] [place], [place] [address] Assigned Endocrinology Provider 08/01/20 11/28/21 Anthony Shaffer MD [address] [place], [place] [address] Assigned OBGYN Provider 05/10/21 Rocio Mccarthy MD [address] [place] [address] Assigned Endocrinology Provider 04/24/22 Erica Tristan MD [address] [place], [place] [address] Assigned OBGYN Provider 08/06/23 documented as of this encounter
[2024-11-10 11:08] LABS: Albumin* 4.2 g/dL (3.3-5.0); Chloride* 105 mmol/L (96-114); Sodium* 139 mmol/L (135-149)
[2024-11-10 11:09] LABS: Potassium* 4.7 mmol/L (3.6-5.1)
[2024-11-10 11:11] LABS: Anion Gap 7 mEq/L (7-15); Bilirubin Direct* 0.7 mg/dL (0.0-0.5); Bilirubin Total* 1.3 mg/dL (0.1-1.5); Carbon Dioxide* 27 mmol/L (20-32); Creatinine* 0.6 mg/dL (0.5-1.5); Est. Creatinine Clearance* 126.73; Estimated Glomerular Filt Rate 126 ml/min; Total Protein* 7.1 g/dL (6.0-8.3)
[2024-11-10 11:12] LABS: Alanine Aminotransferase* 332 U/L (4-35); Alkaline Phosphatase* 141 U/L (40-150); Aspartate Amino Transferase* 459 U/L (12-35); Blood Urea Nitrogen* 16 mg/dL (5-24); Calcium* 9.4 mg/dL (8.4-10.6); Glucose* 102 mg/dL (60-115)
[2024-11-10 11:14] LABS: C Reactive Protein* 0.9 mg/dL (0.5-1.0)
[2024-11-10 11:27] LABS: Slide Review Reflex No
--- NOTE | 2024-11-10 11:33 | CRLHL7_ITS ---
For Patients: As a result of the Cures Act, medical imaging exams and procedure reports are released immediately into your electronic medical record. You may view this report before your referring provider. If you have questions, please contact your health care provider. INDICATION: Right upper quadrant pain, history of cholecystectomy TECHNIQUE: Ultrasound abdomen limited. Sonographic images of the right upper quadrant were obtained using san-scale and color Doppler images. COMPARISON: CT abdomen and pelvis earlier same day 11/10/2024 FINDINGS: Liver: The liver demonstrates diffuse increased echogenicity, suggestive of hepatic steatosis. No masses. No intrahepatic biliary dilatation. Gallbladder: The gallbladder is surgically absent. No abnormality is seen within the gallbladder fossa. Common bile duct: 5 mm. Pancreas: The visualized portions of the pancreas are unremarkable. The distal body and tail are obscured. Right kidney: 11.2 cm. Normal echotexture and cortex. No masses, stones, or hydronephrosis. Vasculature: Limited visualization of the proximal abdominal aorta and IVC are unremarkable. IMPRESSION: 1. Postsurgical changes cholecystectomy. 2. Hepatic steatosis. Dictated by Barby Vazquez MD @ 11/10/2024 1:14:09 PM Dictated by: Braby Vazquez MD @ 11/10/2024 13:14:20 (Electronically Signed)
[2024-11-10 11:44] LABS: Lipase* 18487 U/L (23-300)
--- NOTE | 2024-11-10 12:09 | CRLHL7_ITS ---
For Patients: As a result of the Century Cures Act, medical imaging exams and procedure reports are released immediately into your electronic medical record. You may view this report before your referring provider. If you have questions, please contact your health care provider. INDICATION: INDICATION:Pancreatitis TECHNIQUE: CT abdomen and pelvis with 116 mL Isovue 370 contrast. COMPARISON: None. FINDINGS: Lower chest: Unremarkable. Liver: Normal in size and attenuation. No suspicious masses. Gallbladder and bile ducts: Cholecystectomy. Pancreas: Normal enhancement of the pancreas no definite peripancreatic inflammatory stranding is seen no fluid collections are present. Spleen: Mildly enlarged spleen measuring 14.8 centimeters. Adrenal glands: Normal in size. No nodules. Kidneys: Normal in size. No suspicious masses, stones, or hydronephrosis. GI tract: Fluid filled small bowel loops and colon no obstruction is seen. Vasculature: Abdominal aorta is normal in caliber. Lymph nodes: No lymphadenopathy. Peritoneum/Abdominal Wall: Unremarkable. No sign of mass or infiltration. No free air or significant free fluid. Pelvis: Unremarkable. No pelvic masses. Bones: Unremarkable for age. IMPRESSION: 1. Normal enhancement of the pancreas. No definite peripancreatic inflammatory changes can be visualized. No fluid collections are visualized. 2. Fluid-filled colon in partially fluid-filled small bowel loops nonspecific could be seen with enterocolitis. No obstruction. Please note that all CT scans at this facility use dose modulation, iterative reconstruction, and/or weight-based dosing when appropriate to reduce radiation dose to as low as reasonably achievable. Dictated by Mona Manzano MD @ 11/10/2024 12:54:24 PM (Electronically Signed)
[2024-11-10] MEDS: HYDROmorphone 0.5 mg/0.5 ml inj IVP ×3 (12:21→23:23)
[2024-11-10 14:02] LABS: Acetaminophen* < 10.0 ug/mL (10.0-30.0)
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
[2024-11-10 15:57] LABS: Triglycerides* 84 mg/dL (40-149)
[2024-11-10 16:00] LABS: INR 0.97 (0.91-1.10); Prothrombin Time 13.5 Seconds
[2024-11-10] MEDS: LACTATED RINGERS 1000 ML 1,000 ML 125 ML IV (17:50)
[2024-11-10] MEDS: SODIUM CHLORIDE 0.9 % (FLUSH) 10 ML SYRINGE 5 ML IVF (17:51)
[2024-11-10] MEDS: LACTATED RINGERS 1000 ML 1,000 ML IV (23:23)
[2024-11-11] VITALS (8 sets, daily range): BP systolic 109–141; BP diastolic 59–76; PULSE 94–128; RESP 18; TEMP 36.9–37.6; O2SAT 94–100
[2024-11-11] MEDS: HYDROmorphone 0.5 mg/0.5 ml inj IVP ×6 (03:22→22:30)
[2024-11-11] MEDS: LACTATED RINGERS 1000 ML 1,000 ML 125 ML IV ×3 (03:23→20:11)
--- NOTE | 2024-11-11 05:59 | PC.NURSE ---
End of shift report [id number]: Pleasant and cooperative with cares. Alert and oriented x 4. Pain to epigastric region that radiates laterally to each side, patient reports well managed with current regimen. Abdomen is soft, tender to touch. Denies any nausea or vomiting, tolerating clear liquids. At 2300 patient reporting chills and shivering, temp 99.2. Dr. Siddiqui notified of new onset of symptoms, per MD if patient becomes febrile we should order blood cultures and complete triple swab [facility] Highest recorded temp 99.6, patient having new onset nasal congestion, no cough noted. Remains tachycardic throughout the shift, denies any dizziness or lightheadedness.
[2024-11-11] MEDS: SODIUM CHLORIDE 0.9 % (FLUSH) 10 ML SYRINGE 5 ML IVF (06:37)
[2024-11-11 06:38] LABS: Basophils Absolute Auto 0.01 K/uL (0.00-0.30); Basophils Percent Auto 0.1 % (0.0-3.0); Eosinophils Absolute Auto 0.07 K/uL (0.00-0.50); Hematocrit 37.9 % (33.0-51.0); Hemoglobin* 12.8 gm/dL (12.0-16.0); Immature Granulocytes Abs Auto 0.02 K/uL (0.00-0.30); Immature Granulocytes Pct Auto 0.3 %; Lymphocytes Percent Auto 18.5 % (20-44); Mean Corpuscular HGB Conc 34 gm/dL (32-36); Mean Corpuscular Hemoglobin 27 pg (26-34); Mean Corpuscular Volume 80 fL (80-100); Monocytes Percent Auto 5.5 % (0.0-11.0); Neutrophils Percent Auto 74.6 % (42.0-72.0); Platelet Count* 116 K/uL (140-440); RDW Coefficient of Variation % 12.8 % (11.5-15.5); Red Blood Count 4.76 m/uL (4.00-5.20); White Blood Count* 6.69 K/uL (4.50-11.00)
[2024-11-11 06:39] LABS: Slide Review Reflex No
[2024-11-11 06:56] LABS: Albumin* 3.3 g/dL (3.3-5.0)
[2024-11-11 06:57] LABS: Chloride* 102 mmol/L (96-114); Potassium* 4.1 mmol/L (3.6-5.1); Sodium* 135 mmol/L (135-149)
[2024-11-11 06:59] LABS: Anion Gap 6 mEq/L (7-15); Aspartate Amino Transferase* 279 U/L (12-35); Carbon Dioxide* 27 mmol/L (20-32); Creatinine* 0.7 mg/dL (0.5-1.5); Est. Creatinine Clearance* 108.63; Estimated Glomerular Filt Rate 121 ml/min; Total Protein* 5.8 g/dL (6.0-8.3)
[2024-11-11 07:00] LABS: Alanine Aminotransferase* 451 U/L (4-35); Alkaline Phosphatase* 186 U/L (40-150); Blood Urea Nitrogen* 7 mg/dL (5-24); Calcium* 8.6 mg/dL (8.4-10.6); Glucose* 82 mg/dL (60-115); Lipase* 889 U/L (23-300)
[2024-11-11 09:38] LABS: PCR FLU A Negative PCR FLU A (Negative); PCR FLU B Negative PCR FLU B (Negative); PCR RSV POSITIVE PCR RSV (Negative); SARS PCR* Negative SARS-CoV-2 (Negative)
--- NOTE | 2024-11-11 13:08 | P.IMPN_ITS ---
Progress Note: A&P Assessment and plan (1) Pancreatitis: Problem details: - acute, CT and US unremarkable, afebrile - s/p cholecystectomy 10 years ago, lifelong non-alcohol user, triglycerides are wnl - differential includes medication related pancreatitis (tirzepatide, phentermine), autoimmune pancreatitis (patient has risk factors for this: h/o Duane disease, female, age in her 20s) - serum IgG4 ordered - suspect tirzipatide related pancreatitis. Will hold this and phentermine. - Admit on clear liquid diet with IVF for hydration, expect third spacing. - May need to consider MRCP or GI consultation if worsening labs in am. If autoimmune, may need trial of corticosteroids - /: Ordered NAS. Patient was found to be RSV positive. Status: Acute (2) Elevated LFTs: Problem details: - Patient was found to be RSV positive, One of the differential diagnoses could be viral induced hepatitis, maybe on top of SIMON. Ordered NAS. - Tirzipatide not known to cause markedly elevated LFTs - Has h/o mild LFT elevations in 2021 and has current evidence of hepatic steatosis - Acute hepatitis panel Ordered - Treat with bowel rest, holding medications as above, giving IVF, repeat LFTs in am, may need to consider testing for Michael's disease, etc. 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 Subjective Date Seen: 11/11/24 Interval history: Patient seen and examined at bedside today. She states that her pain is controlled with pain medication. On examination patient has both epigastric pain and right upper quadrant pain. She is not nauseated as she used to be bef ore. Exam Narrative: Exam Narrative: Physical exam GENERAL: Comfortable, no acute distress. HEAD AND NECK: Atraumatic, normocephalic CARDIOVASCULAR: RRR. Normal S1, S2. No murmurs. RESPIRATORY: Clear to auscultation B/L. Good air entry B/L. No wheezes or rhonchi. GASTROINTESTINAL: Obese, tender to palpation at the epigastric area and right upper quadrant. No guarding or rebound. NEUROLOGY: Alert, awake, oriented X 3. Normal speech. PSYCH: Normal mood, normal affect. Const: Vital Signs, click to edit/add: Vital Signs - 24 hr 11/10/24 13:09 11/10/24 13:10 11/10/24 13:15 Temperature Pulse Rate 106 H 111 H 109 H Pulse Rate [Right Brachial] Pulse Rate [orthos tatic lying Right Brachial] Pulse Rate [orthos tatic sitting Righ t Brachial] Pulse Rate [orthos tatic standing Rig ht Brachial] Respiratory Rate Blood Pressure 124/70 Blood Pressure [Ri ght Arm] Blood Pressure [or thostatic lying Ri ght Arm] Blood Pressure [or thostatic sitting Right Arm] Blood Pressure [or thostatic standing Right Arm] Pulse Oximetry 100 100 [facility] 13:30 11/10/24 13:45 11/10/24 14:00 Temperature Pulse Rate 108 H 102 H 102 H Pulse Rate [Right Brachial] Pulse Rate [orthos tatic lying Right Brachial] Pulse Rate [orthos tatic sitting Righ t Brachial] Pulse Rate [orthos tatic standing Rig ht Brachial] Respiratory Rate Blood Pressure Blood Pressure [Ri ght Arm] Blood Pressure [or thostatic lying Ri ght Arm] Blood Pressure [or thostatic sitting Right Arm] Blood Pressure [or thostatic standing Right Arm] Pulse Oximetry 99 98 97 Oxygen Delivery Ms thod 11/10/24 14:02 11/10/24 14:15 11/10/24 14:30 Temperature Pulse Rate 104 H 101 H 109 H Pulse Rate [Right Brachial] Pulse Rate [orthos tatic lying Right Brachial] Pulse Rate [orthos tatic sitting Righ t Brachial] Pulse Rate [orthos tatic standing Rig ht Brachial] Respiratory Rate 16 Blood Pressure 118/77 Blood Pressure [Ri ght Arm] Blood Pressure [or thostatic lying Ri ght Arm] Blood Pressure [or thostatic sitting Right Arm] Blood Pressure [or thostatic standing Right Arm] Pulse Oximetry 98 97 99 Oxygen Delivery Me thod 11/10/24 14:45 11/10/24 15:00 11/10/24 15:02 Temperature Pulse Rate 96 106 H 104 H Pulse Rate [Right Brachial] Pulse Rate [orthos tatic lying Right Brachial] Pulse Rate [orthos tatic sitting Righ t Brachial] Pulse Rate [orthos tatic standing Rig ht Brachial] Respiratory Rate Blood Pressure 126/96 H Blood Pressure [Ri ght Arm] Blood Pressure [or thostatic lying Ri ght Arm] Blood Pressure [or thostatic sitting Right Arm] Blood Pressure [or thostatic standing Right Arm] Pulse Oximetry 100 100 99 Oxygen Delivery Ms thod 11/10/24 15:26 11/10/24 15:26 11/10/24 16:30 Temperature 97.3 F L Pulse Rate Pulse Rate [Right Brachial] 96 Pulse Rate [orthos tatic lying Right Brachial] 99 Pulse Rate [orthos tatic sitting Righ t Brachial] 104 H Pulse Rate [orthos tatic standing Rig ht Brachial] 124 H Respiratory Rate 18 18 Blood Pressure Blood Pressure [Ri ght Arm] 123/72 Blood Pressure [or thostatic lying Ri ght Arm] 115/74 Blood Pressure [or thostatic sitting Right Arm] 113/74 Blood Pressure [or thostatic standing Right Arm] 105/73 Pulse Oximetry 100 99 [facility] 11/10/24 19:00 11/10/24 23:00 11/10/24 23:00 Temperature 97.7 F Pulse Rate 103 H Pulse Rate [Right Brachial] 104 H Pulse Rate [orthos tatic lying Right Brachial] Pulse Rate [orthos tatic sitting Righ t Brachial] Pulse Rate [orthos tatic standing Rig ht Brachial] Respiratory Rate 18 18 Blood Pressure Blood Pressure [Ri ght Arm] 110/76 Blood Pressure [or thostatic lying Ri ght Arm] Blood Pressure [or thostatic sitting Right Arm] Blood Pressure [or thostatic standing Right Arm] Pulse Oximetry 97 Oxygen Delivery Ms thod Room Air 11/10/24 23:00 11/10/24 23:00 11/10/24 23:30 Temperature 98.2 F 99.2 F Pulse Rate Pulse Rate [Right Brachial] 105 H 104 H Pulse Rate [orthos tatic lying Right Brachial] Pulse Rate [orthos tatic sitting Righ t Brachial] Pulse Rate [orthos tatic standing Rig ht Brachial] Respiratory Rate 16 16 18 Blood Pressure Blood Pressure [Ri ght Arm] 123/83 118/69 Blood Pressure [or thostatic lying Ri ght Arm] Blood Pressure [or thostatic sitting Right Arm] Blood Pressure [or thostatic standing Right Arm] Pulse Oximetry 100 100 Oxygen Delivery Me thod Room Air Room Air 11/11/24 03:00 11/11/24 08:47 Temperature 99.6 F 99.6 F Pulse Rate Pulse Rate [Right Brachial] 102 H 128 H Pulse Rate [orthos tatic lying Right Brachial] Pulse Rate [orthos tatic sitting Righ t Brachial] Pulse Rate [orthos tatic standing Rig ht Brachial] Respiratory Rate 18 18 Blood Pressure Blood Pressure [Ri ght Arm] 125/59 L 141/76 H Blood Pressure [or thostatic lying Ri ght Arm] Blood Pressure [or thostatic sitting Right Arm] Blood Pressure [or thostatic standing Right Arm] Pulse Oximetry 95 98 Oxygen Delivery Me thod Room Air Room Air Labs Labs: Laboratory Results - last 24 hr 11/10/24 11/10/24 11/10/24 10:30 15:44 22:24 WBC RBC Hgb Hct MCV MCH MCHC RDW Coeff of [place] Plt Count Neut % (Auto) Lymph % (Auto) [place] % (Auto) Eos % (Auto) Baso % (Auto) Neut # (Auto) Lymph # (Auto) [place] # (Auto) Eos # (Auto) Baso # (Auto) Abs Immat Gran (auto) Imm/Tot Granulo (auto) INR 0.97 Sodium Potassium Chloride Carbon Dioxide Anion Gap BUN Creatinine Estimated Creat Clear Estimated GFR Glucose Calcium Total Bilirubin AST ALT Alkaline Phosphatase Total Protein Albumin Triglycerides 84 Lipase Acetaminophen < 10.0 L SARS-CoV-2 (PCR) Influenza Type A (PCR) Influenza Type B (PCR) RSV (PCR) Lab Acknowledgement Test Added Test Added 11/11/24 11/11/24 11/11/24 06:00 08:37 10:49 WBC 6.69 RBC 4.76 Hgb 12.8 Hct 37.9 MCV 80 MCH 27 MCHC 34 RDW Coeff of [place] 12.8 Plt Count 116 L Neut % (Auto) 74.6 H Lymph % (Auto) 18.5 L [place] % (Auto) 5.5 Eos % (Auto) 1.0 Baso % (Auto) 0.1 Neut # (Auto) 5.00 Lymph # (Auto) 1.20 [place] # (Auto) 0.40 Eos # (Auto) 0.07 Baso # (Auto) 0.01 Abs Immat Gran (auto) 0.02 Imm/Tot Granulo (auto) 0.3 INR Sodium 135 Potassium 4.1 Chloride 102 Carbon Dioxide 27 Anion Gap 6 L BUN 7 Creatinine 0.7 Estimated Creat Clear 108.63 Estimated GFR 121 Glucose 82 Calcium 8.6 Total Bilirubin 2.0 H AST 279 H ALT 451 H Alkaline Phosphatase 186 H Total Protein 5.8 L Albumin 3.3 Triglycerides Lipase 889 H Acetaminophen SARS-CoV-2 (PCR) Negative SARS-CoV-2 Influenza Type A (PCR) Negative PCR FLU A Influenza Type B (PCR) Negative PCR FLU B RSV (PCR) POSITIVE PCR RSV A Lab Acknowledgement Test Added
--- NOTE | 2024-11-11 19:27 | PC.NURSE ---
shift note: pt up indept in room. IV replaced to Rt FA. Pt pain managed with 1 mg dilaudid IV PRN pain. Pt rating abd pain 4-8/10. Pt placed on precautions for RSV
[2024-11-12] VITALS (7 sets, daily range): BP systolic 101–118; BP diastolic 71–74; PULSE 85–103; RESP 16–18; TEMP 36.7–37.5; O2SAT 95–98
[2024-11-12] MEDS: LACTATED RINGERS 1000 ML 1,000 ML 125 ML IV ×2 (03:21→12:00)
--- NOTE | 2024-11-12 05:22 | PC.NURSE ---
Shift note: Pt is pleasant, alert and oriented. Pain level is reduced. 1X PRN medication was requested at 2200. No nausea or vomiting reported. Pt is independent in room. Vitally stable. Pt had adequate sleep.
[2024-11-12] MEDS: LEVOTHYROXINE 100 MCG TABLET 200 MCG PO (06:43)
[2024-11-12] MEDS: HYDROmorphone 0.5 mg/0.5 ml inj IVP ×3 (06:48→22:18)
[2024-11-12] MEDS: SODIUM CHLORIDE 0.9 % (FLUSH) 10 ML SYRINGE 5 ML IVF ×3 (06:49→22:19)
[2024-11-12 06:50] LABS: Hemoglobin* 13.3 gm/dL (12.0-16.0); Mean Corpuscular HGB Conc 33 gm/dL (32-36); Mean Corpuscular Hemoglobin 27 pg (26-34); Mean Corpuscular Volume 80 fL (80-100); Platelet Count* 125 K/uL (140-440); Red Blood Count 5.02 m/uL (4.00-5.20); White Blood Count* 8.33 K/uL (4.50-11.00)
[2024-11-12 07:07] LABS: Albumin* 3.6 g/dL (3.3-5.0)
[2024-11-12 07:08] LABS: Chloride* 100 mmol/L (96-114); Sodium* 135 mmol/L (135-149)
[2024-11-12 07:10] LABS: Anion Gap 7 mEq/L (7-15); Bilirubin Total* 0.8 mg/dL (0.1-1.5); Carbon Dioxide* 28 mmol/L (20-32); Creatinine* 0.6 mg/dL (0.5-1.5); Est. Creatinine Clearance* 126.73; Estimated Glomerular Filt Rate 126 ml/min
[2024-11-12 07:11] LABS: Alanine Aminotransferase* 357 U/L (4-35); Alkaline Phosphatase* 201 U/L (40-150); Aspartate Amino Transferase* 133 U/L (12-35); Blood Urea Nitrogen* 4 mg/dL (5-24); Calcium* 8.8 mg/dL (8.4-10.6); Glucose* 85 mg/dL (60-115); Total Protein* 6.3 g/dL (6.0-8.3)
[2024-11-12 07:20] LABS: Slide Review Reflex No
--- NOTE | 2024-11-12 09:42 | NUTR.NU ---
RDN with nutrition screen related to positive MST score for weight loss and poor appetite. Patient admitted for pancreatitis and is RSV positive. Past medical history includes but not limited to h/o pituitary microadenoma, secondary amenorrhea, lian thyroiditis, history of cholecystectomy, PTSD, ADHD, depression, obesity, PCOS. Current weight 239 lb 2oz; height 5ft 5in; BMI 39.8 kg/m2. Per weight history, patient was about 260 lbs 1 year ago, however per MD report patient is on tirzepatide for weight loss. Weight loss is intentional and is not significant loss. Current diet is Clear liquids. Not appropriate to visit with patient at this time. RDN will reassess later today and will attempt to provide diet education when more appropriate. Will continue to monitor.
[2024-11-12] MEDS: BENZOCAINE/MENTHOL 1 EACH LOZENGE MUCOUS MEM ×2 (12:00→17:46)
[2024-11-12 13:17] LABS: Hep A Ab, IgM Negative (Negative); Hep B Core Ab, IgM Negative (Negative); Hep B Surface Antigen Negative (Negative); Hep C Ab by CIA Index 0.14 IV; Hep C Ab by CIA Interp Negative (Negative)
--- NOTE | 2024-11-12 14:09 | PM.IMPN1 ---
Progress Note: A&P Assessment and plan (1) Pancreatitis: Problem details: - acute, CT and US unremarkable, afebrile - s/p cholecystectomy 10 years ago, lifelong non-alcohol user, triglycerides are wnl - differential includes medication related pancreatitis (tirzepatide, phentermine), autoimmune pancreatitis (patient has risk factors for this: h/o Duane disease, female, age in her 20s) - serum IgG4 ordered - suspect tirzipatide related pancreatitis. Will hold this and phentermine. - Admit on clear liquid diet with IVF for hydration, expect third spacing. - May need to consider MRCP or GI consultation if worsening labs in am. If autoimmune, may need trial of corticosteroids - 2/2: Ordered NAS. Patient was found to be RSV positive. - 2/3 lower LFTs, decrease IVF rate Status: Acute (2) Elevated LFTs: Problem details: - Patient was found to be RSV positive, One of the differential diagnoses could be viral induced hepatitis, maybe on top of SIMON. Ordered NAS. - Tirzipatide not known to cause markedly elevated LFTs - Has h/o mild LFT elevations in 2021 and has current evidence of hepatic steatosis - Acute hepatitis panel Ordered - Treat with bowel rest, holding medications as above, giving IVF, repeat LFTs in am, may need to consider testing for Michael's disease, etc. 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 Subjective Date Seen: 11/12/24 Interval history: Patient seen and examined at bedside today. She states that her pain is much better. Hungry and wanted to advance diet as she tolerated broth. Exam Narrative: Exam Narrative: Physical exam GENERAL: Comfortable, no acute distress. HEAD AND NECK: Atraumatic, normocephalic CARDIOVASCULAR: RRR. Normal S1, S2. No murmurs. RESPIRATORY: Clear to auscultation B/L. Good air entry B/L. No wheezes or rhonchi. GASTROINTESTINAL: Not distended, RUQ tender to palpation. NEUROLOGY: Alert, awake, oriented X 3. Normal speech. PSYCH: Normal mood, normal affect. Const: Vital Signs, click to edit/add: Vital Signs - 24 hr 11/11/24 14:12 11/11/24 15:00 11/11/24 15:00 Temperature 99.6 F Pulse Rate Pulse Rate [Right Brachial] 118 H 113 H Respiratory Rate 18 18 18 Blood Pressure [Ri ght Arm] 135/69 Pulse Oximetry 100 [facility] 11/11/24 16:53 11/11/24 19:00 11/11/24 23:00 Temperature 98.7 F Pulse Rate 118 H 94 Pulse Rate [Right Brachial] 101 H Respiratory Rate 18 Blood Pressure [Ri ght Arm] 109/74 Pulse Oximetry 94 [facility] 11/11/24 23:00 11/11/24 23:00 11/11/24 23:00 Temperature 98.4 F Pulse Rate Pulse Rate [Right Brachial] 106 H 106 H Respiratory Rate 18 18 18 Blood Pressure [Ri ght Arm] 116/71 Pulse Oximetry 95 95 [facility] 11/12/24 03:00 11/12/24 07:00 11/12/24 08:00 Temperature 99.5 F Pulse Rate 90 Pulse Rate [Right Brachial] 95 Respiratory Rate 18 18 Blood Pressure [Ri ght Arm] 118/72 Pulse Oximetry 95 97 [facility] 11/12/24 08:00 11/12/24 08:00 11/12/24 12:00 Temperature 98.1 F 98.1 F Pulse Rate Pulse Rate [Right Brachial] 97 85 87 Respiratory Rate 18 18 18 Blood Pressure [Ri ght Arm] 113/71 116/71 Pulse Oximetry 97 98 [facility] Labs Labs: Laboratory Results - last 24 hr 11/10/24 11/12/24 10:30 06:33 WBC 8.33 RBC 5.02 Hgb 13.3 Hct 40.0 MCV 80 MCH 27 MCHC 33 Plt Count 125 L Sodium 135 Potassium 4.0 Chloride 100 Carbon Dioxide 28 Anion Gap 7 BUN 4 L Creatinine 0.6 Estimated Creat Clear 126.73 Estimated GFR 126 Glucose 85 Calcium 8.8 Total Bilirubin 0.8 AST 133 H ALT 357 H Alkaline Phosphatase 201 H Total Protein 6.3 Albumin 3.6 Hepatitis A IgM Ab Negative Hep Bs Antigen Negative Hep B Core IgM Ab Negative Hep C Ab Index (ELVIA) 0.14 Hep C Ab Interp ELVIA Negative Hepatitis Interpret See Note
[2024-11-12] MEDS: LACTATED RINGERS 1000 ML 1,000 ML 100 ML IV (20:37)
[2024-11-13 00:20] VITALS: BP 107/69; PULSE 94; PULSE 95; RESP 16; TEMP 36.3; O2SAT 97
[2024-11-13 03:40] VITALS: BP 121/78; PULSE 82; RESP 16; TEMP 36.5; O2SAT 98
[2024-11-13] MEDS: LACTATED RINGERS 1000 ML 1,000 ML 100 ML IV (05:14)
[2024-11-13] MEDS: LEVOTHYROXINE 100 MCG TABLET 200 MCG PO (06:31)
[2024-11-13 07:00] VITALS: PULSE 79
[2024-11-13 07:12] LABS: Albumin* 3.4 g/dL (3.3-5.0); Chloride* 105 mmol/L (96-114); Potassium* 3.5 mmol/L (3.6-5.1); Sodium* 137 mmol/L (135-149)
[2024-11-13 07:14] LABS: Creatinine* 0.6 mg/dL (0.5-1.5); Est. Creatinine Clearance* 126.73; Estimated Glomerular Filt Rate 126 ml/min
[2024-11-13 07:15] LABS: Alanine Aminotransferase* 250 U/L (4-35); Alkaline Phosphatase* 173 U/L (40-150); Anion Gap 5 mEq/L (7-15); Aspartate Amino Transferase* 59 U/L (12-35); Bilirubin Total* 0.3 mg/dL (0.1-1.5); Blood Urea Nitrogen* 5 mg/dL (5-24); Carbon Dioxide* 27 mmol/L (20-32); Glucose* 93 mg/dL (60-115); Total Protein* 6.1 g/dL (6.0-8.3)
[2024-11-13 07:16] LABS: Calcium* 8.8 mg/dL (8.4-10.6)
[2024-11-13 08:15] VITALS: BP 123/76; PULSE 94; RESP 16; TEMP 36.6; O2SAT 97
--- NOTE | 2024-11-13 09:46 | NUTR.NU ---
RDN with diet education related to new diagnosis of pancreatitis. Patient admitted with pancreatitis and hepatitis of unknown cause. Past medical history includes but not limited to h/o pituitary microadenoma, secondary amenorrhea, lian thyroiditis, history of cholecystectomy, PTSD, ADHD, depression, obesity, PCOS. Current weight 231lb 1oz; height 5ft 5in; BMI 38.5 kg/m2. Per weight history, patient was about 260 lbs 1 year ago, however per MD report patient is on tirzepatide for weight loss. Weight loss is intentional and is not significant loss. Visited with patient whom reports she follows a keto diet which includes healthy fats at home. She accepted diet education related to pancreatitis. Patient was provided diet education on a low fat diet. Discussed foods to include and foods to avoid. Education also provided following a low fat diet (about 60 grams/day) long-term. Encouraged her to choose healthier unsaturated fats when following a keto diet. Verbal and written information as well as a sample menu provided from [facility]. Patient verbalized understanding. RDN's contact information was provided and patient was encouraged to contact RDN with questions.
--- NOTE | 2024-11-13 11:16 | PM.DS1 ---
DS: Providers Provider Date Seen: 11/13/24 Date of admission: 11/10/24 15:44 Primary care physician: Billie Guadarrama DO Admitting Clinician: Karina Hughes MD Attending Physician on discharge: Karina Hughes MD DS: Diagnosis Discharge Diagnosis (1) Pancreatitis: Status: Acute Problem details: - acute, CT and US unremarkable, afebrile - s/p cholecystectomy 10 years ago, lifelong non-alcohol user, triglycerides are wnl - differential includes medication related pancreatitis (tirzepatide, phentermine), autoimmune pancreatitis (patient has risk factors for this: h/o Duane disease, female, age in her 20s) - serum IgG4 ordered - suspect tirzipatide related pancreatitis. Will hold this and phentermine. - Admit on clear liquid diet with IVF for hydration, expect third spacing. - May need to consider MRCP or GI consultation if worsening labs in am. If autoimmune, may need trial of corticosteroids - 2/2: Ordered NAS. Patient was found to be RSV positive. - 2/3 lower LFTs, decrease IVF rate - 2/4 lower LFTs (2) Elevated LFTs: Status: Acute Problem details: - Patient was found to be RSV positive, One of the differential diagnoses could be viral induced hepatitis, maybe on top of SIMON. Ordered NAS. - Tirzipatide not known to cause markedly elevated LFTs - Has h/o mild LFT elevations in 2021 and has current evidence of hepatic steatosis - Acute hepatitis panel Ordered - Treat with bowel rest, holding medications as above, giving IVF, repeat LFTs in am, may need to consider testing for Michael's disease, etc. 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 Pt doesnt drink EtOH and had her gallbladder removed [address] scan and U/S didnt show intrahepatic biliary dilatation & Common bile duct: 5 mm. Pt was treated w/ IVF and gradually improved. Her LFTs are downtrending. We suggested that she stops using phentermine and Zepbound as they might be associated her illness. Referral to a cigarette filter inspector due to elevated liver enzymes ordered. Status at Discharge Functional status at discharge: independent ambulation Overall status at discharge: patient is progressing back to baseline Time Spent with Patient Time attestation: Total time spent providing and/or coordinating discharge services: Exam Narrative: Exam Narrative: GENERAL: Comfortable, no acute distress. HEAD AND NECK: Atraumatic, normocephalic CARDIOVASCULAR: RRR. Normal S1, S2. No murmurs. RESPIRATORY: Clear to auscultation B/L. Good air entry B/L. No wheezes or rhonchi. GASTROINTESTINAL: Not distended, RUQ tender to palpation. NEUROLOGY: Alert, awake, oriented X 3. Normal speech. PSYCH: Normal mood, normal affect. Const: Vital Signs, click to edit/add: Vital Signs - 24 hr 11/12/24 12:00 11/12/24 15:00 11/12/24 15:00 Temperature 98.1 F Pulse Rate 94 Pulse Rate [Right Brachial] 87 93 Respiratory Rate 18 18 Blood Pressure [Ri ght Arm] 116/71 Pulse Oximetry 98 Oxygen Delivery Me thod Room Air 11/12/24 15:00 11/12/24 17:00 11/12/24 19:32 Temperature 98.4 F 98.2 F Pulse Rate Pulse Rate [Right Brachial] 103 H 94 Respiratory Rate 18 18 16 Blood Pressure [Ri ght Arm] 101/74 110/73 Pulse Oximetry 98 97 95 Oxygen Delivery Me thod Room Air Room Air Room Air 11/13/24 00:20 11/13/24 00:20 11/13/24 00:20 Temperature 97.4 F L Pulse Rate 94 Pulse Rate [Right Brachial] 95 Respiratory Rate 16 16 Blood Pressure [Ri ght Arm] 107/69 Pulse Oximetry 97 97 Oxygen Delivery Me thod Room Air Room Air 11/13/24 03:40 11/13/24 07:00 11/13/24 08:15 Temperature 97.7 F Pulse Rate 79 Pulse Rate [Right Brachial] 82 94 Respiratory Rate 16 16 Blood Pressure [Ri ght Arm] 121/78 Pulse Oximetry 98 Oxygen Delivery Me thod Room Air 11/13/24 08:15 11/13/24 08:15 Temperature 98 F Pulse Rate Pulse Rate [Right Brachial] 94 Respiratory Rate 16 16 Blood Pressure [Ri ght Arm] 123/76 Pulse Oximetry 97 97 Oxygen Delivery Me thod Room Air Room Air DS: Data Data Completed and Pending Completed studies during hospitalization: Procedures Delivery of Products of Conception, External Approach (12/11/23) Resection of Bilateral Fallopian Tubes, Open Approach (12/11/23) Labs on day of discharge: Labs from last 24 hours 11/13/24 11/10/24 06:28 10:30 Sodium 137 Potassium 3.5 L Chloride 105 Carbon Dioxide 27 Anion Gap 5 L BUN 5 Creatinine 0.6 Estimated Creat Clear 126.73 Estimated GFR 126 Glucose 93 Calcium 8.8 Total Bilirubin 0.3 AST 59 H ALT 250 H Alkaline Phosphatase 173 H Total Protein 6.1 Albumin 3.4 Hepatitis A IgM Ab Negative Hep Bs Antigen Negative Hep B Core IgM Ab Negative Hep C Ab Index (ELVIA) 0.14 Hep C Ab Interp ELVIA Negative Hepatitis Interpret See Note Discharge Plan Discharge Disposition: Home, Self-Care Date of Admission: 11/10/24 15:44 Attending Provider on Discharge: Karina Hughes Primary Care Provider: Billie Guadarrama Condition: Stable Anticipated Discharge Date/Time: 11/13/24 11:00 Discharge Medications: New hydromorphone 2 mg tablet 2 mg PO Q8H PRN (Reason: pain) Qty: 6 0RF Continued medroxyprogesterone [Provera] 10 mg tablet 10 mg PO QDAY Qty: 10 4RF levothyroxine 200 mcg tablet 200 mcg PO [id number] Rx Instructions: TAKES 6 DAYS A WEEK, TUESDAY THROUGH TUESDAY Held fluconazole 150 mg tablet 150 mg PO QWEEK PRN Hold Instructions: Resume on 12/07/24. Hold until liver function normalize Rx Instructions: TAKES ON NEEDED BASIS Discontinued phentermine 37.5 mg capsule 37.5 mg PO QDAY Rx Instructions: must administer 30 minutes before or 1-2 hours after breakfast Zepbound 10 mg/0.5 mL pen injector 10 mg subcut QWEEK Patient Comments: THIS WILL BE NEW DOSE OF 11-15-24 Discharge Orders: Discharge Order (Routine); Ordered 11/13/24 Ordered By: Karina Hughes Patient Education: Hydromorphone (By mouth), Pancreatitis (IP) Additional Instructions: -follow-up with primary care physician in 1-2 weeks. -discuss referral to a cigarette filter inspector due to elevated liver enzymes. -stop using phentermine and Zepbound as they might be associated with your illness. Activity Level: Activity as Tolerated Discharge Diet: Regular Follow Up Appointments: [facility] [Provider Group] (Referral to cigarette filter inspector Referral sent to [facility]. They will call you with appointment date.) Billie Guadarrama DO [Primary Care Provider] - 11/26/24 11:40 am ([facility] for follow-up.) Forms: [employer] Info Instructions
[2024-11-14 00:28] LABS: Anti-Nuclear Ab(ANA)IgG ELISA None Detected (None Detected)
== END 2024-11-13 12:10 | disposition home or self-care (01) | DRG 440 ==
LOC: ED 14:53 → MEDSURG 15:24
PROVIDERS: Admitting Provider Family Medicine; Emergency Provider Family Medicine; PCP Family Medicine; Visit Provider Student in an Organized Health Care Education/Training Program
DX: K85.90 Acute pancreatitis without necrosis or infection, unspecified (principal); R74.01 Elevation of levels of liver transaminase levels; R00.0 Tachycardia, unspecified; E86.0 Dehydration; R42 Dizziness and giddiness; E66.9 Obesity, unspecified; Z68.38 Body mass index [BMI] 38.0-38.9, adult; M79.7 Fibromyalgia; F90.9 Attention-deficit hyperactivity disorder, unspecified type; F43.10 Post-traumatic stress disorder, unspecified; E28.2 Polycystic ovarian syndrome; F41.9 Anxiety disorder, unspecified; Z86.39 Personal history of other endocrine, nutritional and metabolic disease; B97.4 Respiratory syncytial virus as the cause of diseases classified elsewhere
CPT/HCPCS: 36415; 74177; 76705; 80048; 80053; 80074; 80076; 80143; 81001; 81025; 82787; 83605; 83690; 84478; 85025; 85027; 85610; 86038; 86140; 86308; 87086; 87493; 87631; 93005; 99284; 99285; A9270; J1171; J1885; J7030; J7120; Q9967

== ENCOUNTER 2024-12-20 15:41 | Outpatient (CLI) | payer MEDICAID, SELFPAY ==
--- NOTE | 2024-12-20 15:45 | CRLHL7_ITS ---
For Patients: As a result of the Century Cures Act, medical imaging exams and procedure reports are released immediately into your electronic medical record. You may view this report before your referring provider. If you have questions, please contact your health care provider. CLINICAL HISTORY: Pelvic and perineal pain TECHNIQUE: 2D san scale ultrasound. In addition color Doppler and spectral Doppler analysis was performed of the pelvis using a transabdominal and transvaginal approach. FINDINGS: The uterus measures 7.0 x 3.7 x 5.6 cm. 7.2 millimeter cervical nabothian cyst is present. Hyperechoic structure within the posterior endometrium measures 5 x 3 x 5 millimeters compatible with small fibroid. The endometrial lining appears normal and measures 8 mm in thickness. The right ovary measures 4.6 x 2.5 x 3.3 cm in size and the left ovary measures 3.9 x 1.7 x 1.9 cm. The ovaries demonstrate normal arterial and venous blood flow on color Doppler and spectral Doppler analysis. There are no suspicious fluid collections within the cul-de-sac. IMPRESSION: No ovarian torsion or excess pelvic free fluid. No adnexal mass. Right ovarian volume 19.7 cc. Left ovarian volume 7 cc. Dictated by Rashad Yin MD @ 12/21/2024 10:10:43 AM (Electronically Signed)
== END 2024-12-20 15:42 | disposition home or self-care (01) ==
LOC: US 15:42
PROVIDERS: PCP Family Medicine; Visit Provider Physician Assistant
DX: R10.2 Pelvic and perineal pain (principal); N83.201 Unspecified ovarian cyst, right side
CPT/HCPCS: 76830; 76856; 93976